=== PATIENT | male | born 1980 | race Caucasian/White ===

== ENCOUNTER 2016-05-14 02:31 | Emergency (ER) | payer OTHER ==
[~2016-05-14] VITALS: Ht 175.3 cm; Wt 145.7 kg
[~2016-05-14 02:31] MED LIST: ATOR-24 PO; GLC500 PO; INSDGI SC; INSDGIPEN SC; LISI-461 PO; NVLGI7030 SC
[2016-05-14 02:34] VITALS: TEMP 37; Ht 175.3 cm; Wt 145.7 kg
[2016-05-14 02:53] LABS: HEMATOCRIT 28.7 % (42-52); MEAN CELL VOLUME 79.9 fL (80-100); MEAN CORPUSCULAR HEMOGLOBIN 28.7 pg (25-34); MEAN CORPUSCULAR HGB CONC 35.9 g/dl (32-36); MEAN PLATELET VOLUME 9.5 fL (7.4-10.4); PLATELET COUNT 186 K/uL (130-400); RED BLOOD COUNT 3.59 M/uL (4.7-6.1); WHITE BLOOD COUNT 6.84 K/uL (4.8-10.8)
[2016-05-14] MEDS ORDERED: FURO-85 PO (02:56)
[2016-05-14 03:13] LABS: BASO % 0.3 %; BASO ABS # 0.02 K/uL (0-0.2); COMPLETE YES; EOS % 1.6 %; IG% 0.1 %; LYMPH % 26.6 %; LYMPH ABS # 1.82 K/uL (1.2-3.4); MONO % 11.8 %; NEUT % 59.6 %
[2016-05-14 03:18] LABS: BUN/CREATININE RATIO 16.6 (10-20); CALCIUM 9.1 mg/dl (8.5-10.1); CREATININE 1.6 mg/dl (0.60-1.40); POTASSIUM 3.6 mmol/L (3.5-5.1)
--- NOTE | 2016-05-14 04:49 | EMERGENCY ROOM VISIT NOTE ---
History First contact with patient: 02:34 Chief Complaint: LEG PAIN,LEG INJURY Stated Complaint: LEG CRAMPS History of Present Illness The patient is a 35 year old male who presents to the Emergency Room with complaints of leg pain or swelling. Patient states his leg has been swollen for quite some time now. He complains of leg cramping. No recent travel. He does not smoke. No history DVT or PE. No Family history of DVT or PE. Patient does have diabetes, blood pressure and cholesterol. Patient denies chest pain, dyspnea, fever, chills, cough, congestion, abdominal pain, numbness, tingling. Review of Systems See HPI for pertinent positives & negatives. A total of 10 systems reviewed and were otherwise negative. Past Medical/Surgical History Hypertension, hyperlipidemia, diabetes Social History Smoking Status: Never Smoker Alcohol Use: none Drug Use: none Marital Status: single Current/Historical Medications Scheduled Amlodipine (Norvasc), 5 MG PO BID Atorvastatin (Lipitor), 80 MG PO DAILY Furosemide (Lasix), 40 MG PO QAM Furosemide (Lasix), 20 MG PO DAILY @ NOON Gabapentin (Neurontin), 300 MG PO QAM Gabapentin (Neurontin), 600 MG PO HS Insulin Aspart (Novolog Flexpen), UNITS SQ AC Insulin Glargine (Toujeo Solostar), UNITS SQ HS Levothyroxine Sodium (Levothyroxine Sodium), 50 MCG PO DAILY Losartan Potassium (Cozaar), 100 MG PO DAILY Allergies Coded Allergies: Influenza Vaccines (Verified Allergy, Intermediate, UNKNOWN, 05/14/16) Lisinopril (Verified Allergy, Intermediate, COUGH, 05/14/16) Physical Exam Vital Signs Date Time Temp Pulse Resp B/P Pulse Ox O2 Delivery O2 Flow Rate FiO2 05/14/16 02:40 110 05/14/16 02:34 37.0 111 20 185/87 100 Room Air Physical Exam VITALS: Vitals are noted on the nurse's note and reviewed by myself. Vital signs stable. GENERAL: White male, in no acute distress, nondiaphoretic, well-developed well- nourished. SKIN: Capillary reflex less than 2 seconds. HEENT: Normocephalic. PERRLA. EOMI. Nares patent. Mucous membranes moist. Neck is supple without nuchal rigidity. HEART: Regular rate and rhythm without murmurs gallops or rubs. LUNGS: Clear to auscultation bilaterally without wheezes, rales or rhonchi. No retractions or accessory muscle use. ABDOMEN: Positive bowel sounds x 4. Normal tympanic percussion. Soft, protuberant, obese, nontender, without masses or organomegaly. Multani sign negative. No guarding or rebound tenderness. MUSCULOSKELETAL: No gross musculoskeletal defects. +2 pitting edema up to the mid tib-fib bilaterally. No calf tenderness. NEURO: Patient was alert and oriented to person place and time. Normal sensation to light and sharp touch. No focal neurological deficits. Medical Decision & Procedures Laboratory Results 05/14/16 02:43 Red Blood Count 3.59, Mean Corpuscular Volume 79.9, Mean Corpuscular Hemoglobin 28.7, Mean Corpuscular Hemoglobin Concent 35.9, Mean Platelet Volume 9.5, Neutrophils (%) (Auto) 59.6, Lymphocytes (%) (Auto) 26.6, Monocytes (%) (Auto) 11.8, Eosinophils (%) (Auto) 1.6, Basophils (%) (Auto) 0.3, Neutrophils # (Auto ) 4.07, Lymphocytes # (Auto) 1.82, Monocytes # (Auto) 0.81, Eosinophils # (Auto ) 0.11, Basophils # (Auto) 0.02 05/14/16 02:43 Test 05/14/16 02:37 05/14/16 02:43 Bedside Glucose 105 mg/dl (70-99) White Blood Count 6.84 K/uL (4.8-10.8) Red Blood Count 3.59 M/uL (4.7-6.1) Hemoglobin 10.3 g/dL (14.0-18.0) Hematocrit 28.7 % (42-52) Mean Corpuscular Volume 79.9 fL (80-100) Mean Corpuscular Hemoglobin 28.7 pg (25-34) Mean Corpuscular Hemoglobin Concent 35.9 g/dl (32-36) Platelet Count 186 K/uL (130-400) Mean Platelet Volume 9.5 fL (7.4-10.4) Neutrophils (%) (Auto) 59.6 % Lymphocytes (%) (Auto) 26.6 % Monocytes (%) (Auto) 11.8 % Eosinophils (%) (Auto) 1.6 % Basophils (%) (Auto) 0.3 % Neutrophils # (Auto) 4.07 K/uL (1.4-6.5) Lymphocytes # (Auto) 1.82 K/uL (1.2-3.4) Monocytes # (Auto) 0.81 K/uL (0.11-0.59) Eosinophils # (Auto) 0.11 K/uL (0-0.5) Basophils # (Auto) 0.02 K/uL (0-0.2) RDW Standard Deviation 37.1 fL (36.4-46.3) RDW Coefficient of Variation 12.8 % (11.5-14.5) Immature Granulocyte % (Auto) 0.1 % Immature Granulocyte # (Auto) 0.01 K/uL (0.00-0.02) Red Blood Cell Morphology Unremarkable Anion Gap 11.0 mmol/L (3-11) Est Creatinine Clear Calc Drug Dose 92.7 ml/min Estimated GFR () 64.2 Estimated GFR (Non- 55.4 BUN/Creatinine Ratio 16.6 (10-20) Calcium Level 9.1 mg/dl (8.5-10.1) ED Course Prior records reviewed and summarized above. Triage Nursing notes reviewed. Additional history obtained from EMS The patient's history was concerning for swelling and pain in the leg. Differential diagnosis: Etiologies such as venous insufficiency, DVT, musculoskeletal, infection, joint effusion, trauma, lymphedema, idiopathic, CHF, as well as others were entertained.. Physical examination: The physical examination revealed no signs of infection. Neurovascularly intact. ER treatment provided: CALVIN hose On reassessment the patient felt better. Diagnostics interpreted by me: The labs revealed stable anemia per chart review. Stable creatinine 1.6. Imaging studies: US VENOUS BILATERAL LOWER EXTREMITIES: No DVT in either lower extremity. Right groin lymph nodes. Radiologist: Odette Rosenberg M.D. This appears to be consistent with leg pain/swelling most likely from venous insufficiency. Patient is neurovascularly and neurologically intact. Unremarkable workup as above. He was advised to wear CALVIN hose and to follow-up family care in a few days or here in the ER sooner for severe pain, numbness, tingling, worsening signs or symptoms or as needed. By the evaluation outlined above emergent etiologies such as DVT, septic joint, trauma, infection, CHF, as well as others were deemed relatively unlikely. The pt informed about the findings as listed above. All questions were answered and pleased with the treatment. Return instructions were outlined and the patient was discharged in stable condition. Referral: The patient was referred back to their primary care physician for follow-up in 2 to 3 days for a recheck of the current condition. Medical Decision As above Impression Primary Impression: Localized swelling of both lower legs Departure Information Dispostion Home / Self-Care Condition GOOD Referrals Maki Peterson M.D. (PCP) Patient Instructions My [facility] [place] [facility] Additional Instructions Wear CALVIN hose. Acetaminophen(Tylenol) may be used for fever or pain. Use 1000mg every six hours as needed. Avoid using more than 3000mg in a 24 hour period. Rest and drink plenty of fluids as tolerated. Continue current medications. Avoid strenuous activities and anything that worsens your pain. Resume normal activities once your symptoms resolve. Return to the ER immediately for worsening or persistent leg pain, abdominal pain, vomiting, fevers, chest pains, difficulty breathing, worsening of your condition, or as needed. Follow up with your primary physician in 2-3 days for a recheck of your current condition.
[2016-05-14 05:08] VITALS: BP 151/74; PULSE 108; O2SAT 97
--- NOTE | 2016-05-14 07:15 | DIAGNOSTIC IMAGING REPORT ---
BILATERAL LOWER EXTREMITY VENOUS DOPPLER HISTORY: Bilateral leg swelling. COMPARISON STUDY: None. FINDINGS: There is normal compressibility, flow, and augmentation within the bilateral lower extremity deep venous systems. Mild right inguinal lymphadenopathy. The dominant lymph node measures 4.0 x 1.8 x 1.2 cm. IMPRESSION: No DVT within the right or left lower extremity. Mild right inguinal lymphadenopathy which is nonspecific. Electronically signed by: Gordo Kaye M.D. 05/14/2016 7:14 AM Dictated Date/Time: 05/14/2016 7:12 AM
[2016-07-23] MEDS ORDERED: ATOR-26 PO (02:53)
[2016-07-23] MEDS ORDERED: GABA-113 PO ×2 (02:54)
[2016-07-23] MEDS ORDERED: LOSA1TAB38 PO (02:55)
[2016-07-23] MEDS ORDERED: LEVO50TA6 PO (02:55)
[2016-07-23] MEDS ORDERED: AMLO-110 PO (02:56)
[2016-07-23] MEDS ORDERED: FURO-85 PO (02:56)
[2016-07-23] MEDS ORDERED: INSU1.2I SQ (02:59)
[2016-07-23] MEDS ORDERED: NVLGI/PEN SQ (02:59)
[2016-08-02] MEDS ORDERED: AMOX500C3 PO (08:16)
[2016-09-11] MEDS ORDERED: CIPR1TAB11 PO (08:57)
[2016-09-11] MEDS ORDERED: CLC/300 PO (08:57)
[2016-10-01] MEDS ORDERED: AMOX500C3 PO (13:26)
[2016-10-01] MEDS ORDERED: SULF800T23 PO (13:26)
[2016-10-24] MEDS ORDERED: DOXY100C76 PO (07:26)
[2016-11-19] MEDS ORDERED: CEPH500C2 PO (10:26)
[2016-12-21] MEDS ORDERED: CEPH500C2 PO (11:24)
[2016-12-25] MEDS ORDERED: CIPR1TAB11 PO (09:24)
== END 2016-05-14 05:08 | disposition home or self-care (01) ==
LOC: EDBD 02:31 → C.EDA 02:33
DX: R22.43 Localized swelling, mass and lump, lower limb, bilateral (principal); I10 Essential (primary) hypertension; E11.9 Type 2 diabetes mellitus without complications; E78.5 Hyperlipidemia, unspecified; Z79.4 Long term (current) use of insulin; Z79.899 Other long term (current) drug therapy

== ENCOUNTER → 2016-05-22 | Outpatient (CLI) | payer OTHER ==
[~2016-05-22] MED LIST changes: +AMLO-110 PO; +AMOX500C3 PO; -ATOR-24 PO; +ATOR-26 PO; +BUME1TAB PO; +CEPH500C2 PO; +CIPR1TAB11 PO; +CLC/300 PO; +DOXY100C76 PO; +FURO-85 PO; +GABA-113 PO; -GLC500 PO; -INSDGI SC; -INSDGIPEN SC; +INSU1.2I SQ; +LEVO50TA6 PO; -LISI-461 PO; +LOSA1TAB38 PO; +NVLGI/PEN SQ; -NVLGI7030 SC; +OXYC-57 PO; +SULF800T23 PO
[2016-05-22 12:33] LABS: BLOOD UREA NITROGEN 28 mg/dl (7-18); BUN/CREATININE RATIO 17.3 (10-20); CARBON DIOXIDE 24 mmol/L (21-32); CHLORIDE 109 mmol/L (98-107); GLUCOSE 219 mg/dl (70-99); MAGNESIUM 2.6 mg/dl (1.8-2.4); PHOSPHORUS 3.3 mg/dl (2.5-4.9); POTASSIUM 4.4 mmol/L (3.5-5.1); SODIUM 142 mmol/L (136-145)
== END | disposition home or self-care (01) ==
LOC: C.LABBFT 08:54
PROVIDERS: ATTEND Internal Medicine Nephrology
DX: I12.9 Hypertensive chronic kidney disease with stage 1 through stage 4 chronic kidney disease, or unspecified chronic kidney disease (principal); D64.9 Anemia, unspecified; N18.2 Chronic kidney disease, stage 2 (mild); E55.9 Vitamin D deficiency, unspecified; E66.01 Morbid (severe) obesity due to excess calories

== ENCOUNTER → 2016-06-18 | Outpatient (CLI) | payer OTHER ==
[2016-06-18 12:49] LABS: HEMATOCRIT 29.4 % (42-52); MEAN CELL VOLUME 78.6 fL (80-100); MEAN CORPUSCULAR HEMOGLOBIN 28.6 pg (25-34); MEAN CORPUSCULAR HGB CONC 36.4 g/dl (32-36); MEAN PLATELET VOLUME 10.9 fL (7.4-10.4); PLATELET COUNT 221 K/uL (130-400); RED BLOOD COUNT 3.74 M/uL (4.7-6.1); WHITE BLOOD COUNT 4.05 K/uL (4.8-10.8)
[2016-06-18 13:00] LABS: ALT/SGPT 26 U/L (12-78); AST/SGOT 18 U/L (15-37); BLOOD UREA NITROGEN 32 mg/dl (7-18); CALCIUM 8.7 mg/dl (8.5-10.1); CARBON DIOXIDE 25 mmol/L (21-32); CHLORIDE 101 mmol/L (98-107); GLUCOSE 313 mg/dl (70-99); POTASSIUM 4.4 mmol/L (3.5-5.1); SODIUM 135 mmol/L (136-145)
[2016-06-18 13:03] LABS: URINE APPEARANCE CLEAR (CLEAR); URINE BILIRUBIN NEG (NEG); URINE COLOR YELLOW; URINE EPITHELIAL CELL AUTO 20-30 /lpf (0-5); URINE NITRITE NEG (NEG); URINE SPECIFIC GRAVITY 1.009 (1.000-1.030); UROBILINOGEN NEG (NEG)
[2016-06-18 13:04] LABS: ALB/GLOB RATIO 0.7 (0.9-2); ALKALINE PHOSPHATASE 144 U/L (45-117); PHOSPHORUS 3.4 mg/dl (2.5-4.9)
[2016-06-18 13:11] LABS: BETA-HYDROXYBUTYRATE 0.99 mg/dL (0.2-2.81)
[2016-06-18 13:12] LABS: MANUAL MICROSCOPIC REQUIRED? NO; REVIEW REQ? NO
[2016-06-18 13:16] LABS: URINE PROTIEN/CREAT RATIO 3.6 (0-0.2); URINE TOTAL PROTEIN 319.5 mg/dl (0-11.9)
== END | disposition home or self-care (01) ==
LOC: C.LABBFT 10:06
PROVIDERS: ATTEND Internal Medicine Nephrology
DX: D64.9 Anemia, unspecified (principal); I12.9 Hypertensive chronic kidney disease with stage 1 through stage 4 chronic kidney disease, or unspecified chronic kidney disease; N18.2 Chronic kidney disease, stage 2 (mild); E55.9 Vitamin D deficiency, unspecified; R60.9 Edema, unspecified

== ENCOUNTER → 2016-07-11 | Outpatient (CLI) | payer OTHER ==
[2016-07-11 13:08] LABS: ESTIMATED AVERAGE GLUCOSE 286 mg/dl; HA1C FLAG Normal (Normal)
== END | disposition home or self-care (01) ==
LOC: C.LABBFT 11:03
PROVIDERS: ATTEND Internal Medicine
DX: E10.65 Type 1 diabetes mellitus with hyperglycemia (principal)

== ENCOUNTER 2016-07-23 12:39 | Emergency (ER) | payer OTHER ==
[~2016-07-23] VITALS: Ht 167.6 cm; Wt 138.0 kg
[~2016-07-23 12:39] MED LIST changes: -AMOX500C3 PO; -BUME1TAB PO; -CEPH500C2 PO; -CIPR1TAB11 PO; -CLC/300 PO; -DOXY100C76 PO; -OXYC-57 PO; -SULF800T23 PO
[2016-07-23 12:52] VITALS: TEMP 36.9; Ht 167.6 cm; Wt 138.0 kg
[2016-07-23] MEDS ORDERED: BUMETANIDE SOLN 1 MG/4 ML VIAL IV STA (12:56)
--- NOTE | 2016-07-23 12:56 | EMERGENCY ROOM VISIT NOTE ---
History Report prepared by Karuna: Esther Mistry Under the Supervision of: Dr. Zachary Eckert M.D. First contact with patient: 12:47 Stated Complaint: LEG CRAMPING AND LEG TREMORS History of Present Illness The patient is a 35 year old male who presents to the Emergency Room with complaints of persistent leg pain that began this morning. The patient describes his pain as a muscle cramp. He states that he has had this pain in the past and has been evaluated in the emergency department for his discomfort. The patient states that he is on Bumex. He notes increased swelling to his bilateral lower extremities. The patient denies any abdominal pain. He states that he feels dehydrated. Source of History: patient Onset: this morning Position: leg Quality: cramping (muscle) Timing: other (persistent) Associated Symptoms: No abdominal pain Note: Associated Symptoms: increased swelling to his bilateral lower extremities Review of Systems See HPI for pertinent positives & negatives. A total of 10 systems reviewed and were otherwise negative. Past Medical & Surgical Medical Problems: (1) Diabetes (2) High cholesterol (3) Hypertension Family History No pertinent family history stated. Social History Smoking Status: Never Smoker Alcohol Use: none Drug Use: none Marital Status: single Occupation Status: unemployed Current/Historical Medications Scheduled Amlodipine (Norvasc), 5 MG PO BID Atorvastatin (Lipitor), 80 MG PO DAILY Bumetanide (Bumex), Unknown Dose PO DAILY Cephalexin Monohydrate (Keflex), 500 MG PO QID Gabapentin (Neurontin), 300 MG PO QAM Gabapentin (Neurontin), 600 MG PO HS Insulin Aspart (Novolog Flexpen), UNITS SQ AC Insulin Glargine (Toujeo Solostar), UNITS SQ HS Levothyroxine Sodium (Levothyroxine Sodium), 50 MCG PO DAILY Losartan Potassium (Cozaar), 100 MG PO DAILY Sulfa/Trimethoprim (Bactrim Ds 800MG/160MG), 1 TAB PO BID Scheduled PRN Oxycodone/Acetaminophen 5MG/325MG (Percocet 5MG/325MG), 1-2 TAB PO Q4H PRN for Pain Allergies Coded Allergies: Influenza Vaccines (Verified Allergy, Intermediate, UNKNOWN, 07/23/16) Lisinopril (Verified Allergy, Intermediate, COUGH, 07/23/16) Physical Exam Vital Signs Date Time Temp Pulse Resp B/P Pulse Ox O2 Delivery O2 Flow Rate FiO2 07/23/16 18:08 86 18 213/115 99 Room Air 07/23/16 15:35 81 195/97 98 Room Air 07/23/16 14:05 79 16 238/106 96 Room Air 07/23/16 12:52 36.9 74 22 169/86 98 Room Air Physical Exam GENERAL: Patient is a healthy-appearing well-nourished HEAD: Normocephalic atraumatic EYES: Ocular movements intact pupils equal and react to light OROPHARYNX mucous membranes are moist no exudates present no erythema or edema present NECK: Supple no nuchal rigidity CHEST: Good equal expansion LUNGS: Clear and equal to auscultation CARDIAC: Normal S1 and S2 ABDOMEN: Soft nontender no guarding BACK: No CVA tenderness EXTREMITIES: Multiple ulcers to the legs, no evidence of cellulitis, plus 2 pitting edema up to the thighs. No pain upon palpation normal muscle strength in all groups no clubbing cyanosis NEURO: Patient is following commands is answering questions appropriately. Alert and oriented x3 Cranial Nerves 2-12 grossly intact Medical Decision & Procedures ER Provider Diagnostic Interpretation: Radiology results as stated below per my review and radiologist interpretation: BILATERAL LOWER EXTREMITY VENOUS DOPPLER HISTORY: Pain. Edema. Pt c/o b/l LE swelling COMPARISON STUDY: None. FINDINGS: There is normal compressibility, flow, and augmentation within the bilateral lower extremity deep venous systems. IMPRESSION: No DVT within the right or left lower extremity. Electronically signed by: Antonio Horvaht M.D. 07/23/2016 3:17 PM Dictated Date/Time: 07/23/2016 3:10 PM CHEST ONE VIEW PORTABLE CLINICAL HISTORY: Pt c/p leg swelling b/l pain COMPARISON STUDY: 04/16/2011 FINDINGS: Mild stable cardiomegaly. Lungs are clear. Diaphragms smooth. IMPRESSION: Mild stable cardiomegaly. Otherwise negative study Electronically signed by: Antonio Horvath M.D. 07/23/2016 1:15 PM Dictated Date/Time: 07/23/2016 1:15 PM Laboratory Results 07/23/16 13:35 Red Blood Count 3.53, Mean Corpuscular Volume 76.8, Mean Corpuscular Hemoglobin 28.6, Mean Corpuscular Hemoglobin Concent 37.3, Mean Platelet Volume 9.3, Neutrophils (%) (Auto) 70.6, Lymphocytes (%) (Auto) 16.8, Monocytes (%) (Auto) 10.2, Eosinophils (%) (Auto) 2.0, Basophils (%) (Auto) 0.2, Neutrophils # (Auto ) 6.57, Lymphocytes # (Auto) 1.56, Monocytes # (Auto) 0.95, Eosinophils # (Auto ) 0.19, Basophils # (Auto) 0.02 07/23/16 13:35 Test 07/23/16 13:35 07/23/16 15:19 07/23/16 15:25 White Blood Count 9.31 K/uL (4.8-10.8) Red Blood Count 3.53 M/uL (4.7-6.1) Hemoglobin 10.1 g/dL (14.0-18.0) Hematocrit 27.1 % (42-52) Mean Corpuscular Volume 76.8 fL (80-100) Mean Corpuscular Hemoglobin 28.6 pg (25-34) Mean Corpuscular Hemoglobin Concent 37.3 g/dl (32-36) Platelet Count 288 K/uL (130-400) Mean Platelet Volume 9.3 fL (7.4-10.4) Neutrophils (%) (Auto) 70.6 % Lymphocytes (%) (Auto) 16.8 % Monocytes (%) (Auto) 10.2 % Eosinophils (%) (Auto) 2.0 % Basophils (%) (Auto) 0.2 % Neutrophils # (Auto) 6.57 K/uL (1.4-6.5) Lymphocytes # (Auto) 1.56 K/uL (1.2-3.4) Monocytes # (Auto) 0.95 K/uL (0.11-0.59) Eosinophils # (Auto) 0.19 K/uL (0-0.5) Basophils # (Auto) 0.02 K/uL (0-0.2) RDW Standard Deviation 35.5 fL (36.4-46.3) RDW Coefficient of Variation 12.9 % (11.5-14.5) Immature Granulocyte % (Auto) 0.2 % Immature Granulocyte # (Auto) 0.02 K/uL (0.00-0.02) Anion Gap 11.0 mmol/L (3-11) Est Creatinine Clear Calc Drug Dose 72.4 ml/min Estimated GFR () 52.1 Estimated GFR (Non- 45.0 BUN/Creatinine Ratio 22.8 (10-20) Calcium Level 9.3 mg/dl (8.5-10.1) Total Bilirubin 0.3 mg/dl (0.2-1) Direct Bilirubin < 0.1 mg/dl (0-0.2) Aspartate Amino Transf (AST/SGOT) 24 U/L (15-37) Alanine Aminotransferase (ALT/SGPT) 22 U/L (12-78) Alkaline Phosphatase 186 U/L (45-117) Total Creatine Kinase 650 U/L (39-308) Creatine Kinase MB 8.3 ng/ml (0.5-3.6) Creatine Kinase MB Ratio 1.3 (0-3.0) Troponin I < 0.015 ng/ml (0-0.045) Pro-B-Type Natriuretic Peptide 113 pg/ml (0-450) Total Protein 7.2 gm/dl (6.4-8.2) Albumin 2.9 gm/dl (3.4-5.0) Lipase 160 U/L (73-393) Bedside Glucose 133 mg/dl (70-99) Urine Color YELLOW Urine Appearance CLEAR (CLEAR) Urine pH 5.0 (4.5-7.5) Urine Specific [place] 1.011 (1.000-1.030) Urine Protein 3+ (NEG) Urine Glucose (UA) 2+ (NEG) Urine Ketones NEG (NEG) Urine Occult Blood 2+ (NEG) Urine Nitrite NEG (NEG) Urine Bilirubin NEG (NEG) Urine Urobilinogen NEG (NEG) Urine Leukocyte Esterase NEG (NEG) Urine WBC (Auto) 1-5 /hpf (0-5) Urine RBC (Auto) 0-4 /hpf (0-4) Urine Hyaline Casts (Auto) 10-30 /lpf (0-5) Urine Epithelial Cells (Auto) 20-30 /lpf (0-5) Urine Bacteria (Auto) NEG (NEG) Urine Pathogenic Casts 1-5 GRANULAR CASTS /lpf (0) Labs reviewed by ED physician. Medications Administered Medications (Trade) Dose Ordered Sig/Urvashi Route Start Time Stop Time Status Last Admin Dose Admin Bumetanide (Bumex IV) 2 mg NOW STAT IV 07/23/16 12:56 43/17 12:59 DC 07/23/16 13:50 2 MG Dextrose (Dextrose 50% 50ML Syringe) 50 ml NOW STAT IV 07/23/16 13:43 07/23/16 13:44 DC 07/23/16 13:49 50 ML Hydromorphone HCl (Dilaudid Inj) 1 mg NOW STAT IV 07/23/16 16:28 07/23/16 16:30 DC 07/23/16 16:59 1 MG Ceftriaxone Sodium (Rocephin Inj) 1 gm NOW STAT IV 07/23/16 16:29 07/23/16 16:30 DC 07/23/16 16:59 1 GM Trimethoprim/ Sulfamethoxazole (Septra Ds 800/ 160MG Tab) 1 tab NOW STAT PO 07/23/16 16:29 07/23/16 16:30 DC 07/23/16 16:59 1 TAB ECG Indication: other (swelling to lower extremities) Rate (beats per minute): 72 Rhythm: normal sinus Findings: no acute ischemic change, no ectopy ED Course 1249: Past medical records reviewed. The patient was evaluated in room A11A. A complete history and physical examination was performed. 1256: Ordered Bumex IV 2 mg IV. 1343: Ordered Dextrose 50 ml IV. 1628: Ordered Dilaudid Inj 1 mg IV, Trimethoprim/Sulfamethoxazole 1 tab PO, Rocephin Inj 1 gm IV. 1635: I reevaluated the patient and he is resting comfortably. I discussed the exam findings with him and I discussed the treatment plan. He verbalized complete understanding and agreement. He is ready to go home. Medical Decision Differential diagnosis: Etiologies such as infections, reactive airway disease, pneumonia, pneumothorax , COPD, CHF, cardiac ischemia, pulmonary embolism, musculoskeletal, gastrointestinal, as well as others were entertained. This is a 35-year-old male who presents emergency department complaining of leg cramping and pain to his legs. The patient is grossly overweight and appears septic element of congestive heart failure. He was given an extra dose of his Bumex here in the emergency Department with improvement in his symptoms. His right lower 70 appears to have us small amount of cellulitis present and therefore I'll place the patient on antibiotics. Based on this the patient was started on Rocephin and Bactrim here in the emergency department. I'll continue the patient on Keflex and Bactrim at home. I strongly recommended that the patient follow-up with his primary care physician as well as wound clinic. Patient was in agreement with the treatment plan. Impression Primary Impression: Cellulitis and abscess of leg Scribe Attestation The scribe's documentation has been prepared under my direction and personally reviewed by me in its entirety. I confirm that the note above accurately reflects all work, treatment, procedures, and medical decision making performed by me. Departure Information Dispostion Home / Self-Care Prescriptions Oxycodone/Acetaminophen 5MG/325MG (PERCOCET 5MG/325MG) Tab 1-2 TAB PO Q4H Y for Pain, #14 TAB Prov: Zachary Eckert MD 07/23/16 Sulfa/Trimethoprim (Bactrim Ds 800MG/160MG) Tab 1 TAB PO BID for 10 Days, #20 TAB Prov: Zachary Eckert MD 07/23/16 Cephalexin Monohydrate (KEFLEX) 500 Mg Cap 500 MG PO QID for 10 Days, #40 CAP Prov: Zachary Eckert MD 07/23/16 Referrals Maki Peterson M.D. (PCP) Forms HOME CARE DOCUMENTATION FORM, IMPORTANT VISIT INFORMATION, School Instructions, Work Instructions Patient Instructions Cellulitis - [facility], [facility] Additional Instructions Follow up with wound clinic You received narcotic or benzodiazepene medication while in the emergency room today. Do not drive, operate heavy machinery, or drink alcohol under the influence of this medication. Take Percocet for breakthrough pain You have been examined and treated today on an emergency basis only. This is not a substitute for, or an effort to provide, complete comprehensive medical care. It is impossible to recognize and treat all injuries or illnesses in a single emergency department visit. It is therefore important that you follow up closely with Dr Peterson. Call as soon as possible for an appointment. Thank you for your time and consideration. I look forward to speaking with you again soon. Please don't hesitate to call us if you have any questions.
[2016-07-23] MEDS ORDERED: BUME1TAB PO (13:07)
--- NOTE | 2016-07-23 13:16 | DIAGNOSTIC IMAGING REPORT ---
CHEST ONE VIEW PORTABLE CLINICAL HISTORY: Pt c/p leg swelling b/l pain COMPARISON STUDY: 04/16/2011 FINDINGS: Mild stable cardiomegaly. Lungs are clear. Diaphragms smooth. IMPRESSION: Mild stable cardiomegaly. Otherwise negative study Electronically signed by: Antonio Horvath M.D. 07/23/2016 1:15 PM Dictated Date/Time: 07/23/2016 1:15 PM
[2016-07-23] MEDS ORDERED: DEXTROSE 50% 50 ML SYR IV STA (13:43)
[2016-07-23 13:49] LABS: HEMATOCRIT 27.1 % (42-52); MEAN CELL VOLUME 76.8 fL (80-100); MEAN CORPUSCULAR HEMOGLOBIN 28.6 pg (25-34); MEAN CORPUSCULAR HGB CONC 37.3 g/dl (32-36); MEAN PLATELET VOLUME 9.3 fL (7.4-10.4); PLATELET COUNT 288 K/uL (130-400); RED BLOOD COUNT 3.53 M/uL (4.7-6.1); WHITE BLOOD COUNT 9.31 K/uL (4.8-10.8)
[2016-07-23 14:08] LABS: BASO % 0.2 %; BASO ABS # 0.02 K/uL (0-0.2); COMPLETE YES; IG% 0.2 %; LYMPH % 16.8 %; LYMPH ABS # 1.56 K/uL (1.2-3.4); MONO % 10.2 %; NEUT % 70.6 %
[2016-07-23 14:26] LABS: ALKALINE PHOSPHATASE 186 U/L (45-117); ALT/SGPT 22 U/L (12-78); AST/SGOT 24 U/L (15-37); BLOOD UREA NITROGEN 43 mg/dl (7-18); BUN/CREATININE RATIO 22.8 (10-20); CALCIUM 9.3 mg/dl (8.5-10.1); CARBON DIOXIDE 25 mmol/L (21-32); CHLORIDE 91 mmol/L (98-107); CKMB/CK RATIO 1.3 (0-3.0); GLUCOSE 48 mg/dl (70-99); POTASSIUM 3.6 mmol/L (3.5-5.1); SODIUM 127 mmol/L (136-145)
--- NOTE | 2016-07-23 15:18 | DIAGNOSTIC IMAGING REPORT ---
BILATERAL LOWER EXTREMITY VENOUS DOPPLER HISTORY: Pain. Edema. Pt c/o b/l LE swelling COMPARISON STUDY: None. FINDINGS: There is normal compressibility, flow, and augmentation within the bilateral lower extremity deep venous systems. IMPRESSION: No DVT within the right or left lower extremity. Electronically signed by: Antonio Horvath M.D. 07/23/2016 3:17 PM Dictated Date/Time: 07/23/2016 3:10 PM
[2016-07-23 15:50] LABS: URINE APPEARANCE CLEAR (CLEAR); URINE BILIRUBIN NEG (NEG); URINE COLOR YELLOW; URINE EPITHELIAL CELL AUTO 20-30 /lpf (0-5); URINE NITRITE NEG (NEG); URINE SPECIFIC GRAVITY 1.011 (1.000-1.030); UROBILINOGEN NEG (NEG)
[2016-07-23 15:53] LABS: MANUAL MICROSCOPIC REQUIRED? NO; REVIEW REQ? YES
[2016-07-23 16:10] LABS: URINE PATH CASTS 1-5 GRANULAR CASTS /lpf (0)
[2016-07-23] MEDS ORDERED: HYDROmorphone INJ 1 MG/ML SYR IV STA (16:28)
[2016-07-23] MEDS ORDERED: CEFTRIAXONE SOD INJ 1 GM ADDVIAL IV STA (16:29)
[2016-07-23] MEDS ORDERED: SULFAMETHOXAZOLE/TRIMETHOPRIM DS 800/160MG TAB PO STA (16:29)
[2016-07-23] MEDS ORDERED: SULF800T23 PO (16:36)
[2016-07-23] MEDS ORDERED: OXYC-57 PO (16:36)
[2016-07-23] MEDS ORDERED: CEPH500C2 PO (16:36)
[2016-07-23 18:08] VITALS: BP 213/115; PULSE 86; O2SAT 99
[2016-08-02] MEDS ORDERED: AMOX500C3 PO (08:16)
[2016-09-11] MEDS ORDERED: CIPR1TAB11 PO (08:57)
[2016-09-11] MEDS ORDERED: CLC/300 PO (08:57)
[2016-10-01] MEDS ORDERED: AMOX500C3 PO (13:26)
[2016-10-01] MEDS ORDERED: SULF800T23 PO (13:26)
[2016-10-24] MEDS ORDERED: DOXY100C76 PO (07:26)
[2016-11-19] MEDS ORDERED: CEPH500C2 PO (10:26)
[2016-12-21] MEDS ORDERED: CEPH500C2 PO (11:24)
[2016-12-25] MEDS ORDERED: CIPR1TAB11 PO (09:24)
[2017-02-06] MEDS ORDERED: AMOX500C3 PO (13:07)
[2017-03-11] MEDS ORDERED: LEVO1TAB33 PO (09:13)
== END 2016-07-23 17:30 | disposition home or self-care (01) ==
LOC: EDBD 12:39 → C.EDA 12:40
DX: L03.115 Cellulitis of right lower limb (principal); L02.415 Cutaneous abscess of right lower limb; E11.9 Type 2 diabetes mellitus without complications; E78.5 Hyperlipidemia, unspecified; I10 Essential (primary) hypertension; E66.3 Overweight; Z79.4 Long term (current) use of insulin

== ENCOUNTER → 2016-08-06 | Outpatient (CLI) | payer OTHER ==
[~2016-08-06] MED LIST changes: +AMOX500C3 PO; +BUME1TAB PO; +CEPH500C2 PO; +CIPR1TAB11 PO; +CLC/300 PO; +DOXY100C76 PO; -FURO-85 PO; +LEVO1TAB33 PO; +OXYC-57 PO; +SULF800T23 PO
== END | disposition home or self-care (01) ==
LOC: C.LABSPEC 17:24
PROVIDERS: ATTEND Nurse Practitioner Family
DX: R31.29 Other microscopic hematuria (principal)

== ENCOUNTER → 2016-08-07 | Outpatient (CLI) | payer OTHER ==
[2016-08-07 15:55] LABS: BLOOD UREA NITROGEN 43 mg/dl (7-18); BUN/CREATININE RATIO 27.1 (10-20); CALCIUM 9.4 mg/dl (8.5-10.1); CARBON DIOXIDE 28 mmol/L (21-32); CHLORIDE 104 mmol/L (98-107); GLUCOSE 78 mg/dl (70-99); MAGNESIUM 2.8 mg/dl (1.8-2.4); POTASSIUM 3.8 mmol/L (3.5-5.1); SODIUM 141 mmol/L (136-145)
[2016-08-07 15:56] LABS: PHOSPHORUS 4.3 mg/dl (2.5-4.9)
== END | disposition home or self-care (01) ==
LOC: C.LAB1850 13:57
PROVIDERS: ATTEND Internal Medicine Nephrology
DX: I12.9 Hypertensive chronic kidney disease with stage 1 through stage 4 chronic kidney disease, or unspecified chronic kidney disease (principal); D64.9 Anemia, unspecified; E55.9 Vitamin D deficiency, unspecified; N18.3 Chronic kidney disease, stage 3 (moderate)

== ENCOUNTER → 2016-09-04 | Outpatient (CLI) | payer OTHER ==
--- NOTE | 2016-09-04 09:39 | DIAGNOSTIC IMAGING REPORT ---
CT SCAN OF THE ABDOMEN AND PELVIS WITHOUT IV CONTRAST CLINICAL HISTORY: Microscopic hematuria. COMPARISON STUDY: Renal ultrasound dated 11/01/2015. TECHNIQUE: CT scan of the abdomen and pelvis is performed from the lung bases to the proximal femora. Images are reviewed in the axial, sagittal, and coronal planes. IV contrast was not administered for this examination. Automated dose control exposure was utilized. The examination is degraded by large body habitus, and by streak artifact from the body wall abutting the CT gantry. The examination is also degraded by streak artifact from the left arm which could not be completely elevated above the abdomen. CT DOSE: 1129.23 mGycm FINDINGS: Lung bases: The heart is normal in size and without pericardial effusion. There are scattered tiny calcified granulomas. The lung bases are otherwise clear. Liver: The unenhanced liver is enlarged, measuring 21 cm in length. The liver is otherwise normal in contour and attenuation. There is no intrahepatic biliary ductal dilatation. Gallbladder: Unremarkable. Spleen: The spleen is enlarged, measuring 15.5 cm in length. Pancreas: Unremarkable. Adrenal glands: Unremarkable. Kidneys: The unenhanced kidneys are normal in size and without hydronephrosis. There are no renal calculi identified. There is no evidence of contour deforming renal mass lesion. Abdominal vasculature: The abdominal aorta is normal in course and caliber. Bowel: The small bowel and colon are normal in course and caliber. There is mild to moderate colonic fecal retention. The appendix is well-visualized and normal. Peritoneum: There is no intraperitoneal free air or abdominal ascites. Lymphadenopathy: Prominent retroperitoneal lymph nodes measure up to 11 mm in short axis. Pelvic viscera: The bladder, prostate, and seminal vesicles are normal as visualized. Skeletal structures: No lytic or blastic lesions are seen. IMPRESSION: 1. There are no acute infectious or inflammatory findings in the abdomen or pelvis. 2. No renal calculi are identified. 3. Hepatosplenomegaly. 4. Prominent nonspecific retroperitoneal lymph nodes measure up to 11 mm in short axis. These are of indeterminant, if any, clinical significance. Electronically signed by: Aaron Mcguire M.D. 09/04/2016 9:37 AM Dictated Date/Time: 09/04/2016 9:32 AM
== END ==
LOC: C.CTS 08:51
PROVIDERS: ATTEND Nurse Practitioner Family
DX: R31.29 Other microscopic hematuria (principal)

== ENCOUNTER → 2016-10-16 | Outpatient (CLI) | payer OTHER ==
[~2016-10-16] MED LIST changes: -CLC/300 PO
[2016-10-16 12:21] LABS: HEMATOCRIT 27.2 % (42-52); MEAN CELL VOLUME 83.7 fL (80-100); MEAN CORPUSCULAR HEMOGLOBIN 28.3 pg (25-34); MEAN CORPUSCULAR HGB CONC 33.8 g/dl (32-36); PLATELET COUNT 211 K/uL (130-400); RED BLOOD COUNT 3.25 M/uL (4.7-6.1)
[2016-10-16 14:22] LABS: BLOOD UREA NITROGEN 32 mg/dl (7-18); BUN/CREATININE RATIO 17.5 (10-20); CALCIUM 9.3 mg/dl (8.5-10.1); CARBON DIOXIDE 21 mmol/L (21-32); CHLORIDE 109 mmol/L (98-107); CHOLESTEROL 141 mg/dl (0-200); GLUCOSE 257 mg/dl (70-99); POTASSIUM 4.9 mmol/L (3.5-5.1); SODIUM 138 mmol/L (136-145); TRIGLYCERIDES 163 mg/dl (0-150); VERY LOW DENSITY LIPOPROT CALC 33 mg/dl
[2016-10-16 14:25] LABS: CHOLESTEROL/HDL RATIO 5.2; HDL CHOLESTEROL 27 mg/dl; LDL CHOLESTEROL CALCULATED 81 mg/dl; PHOSPHORUS 3.4 mg/dl (2.5-4.9)
== END | disposition home or self-care (01) ==
LOC: C.LABBFT 10:42
PROVIDERS: ATTEND Internal Medicine Nephrology
DX: I12.9 Hypertensive chronic kidney disease with stage 1 through stage 4 chronic kidney disease, or unspecified chronic kidney disease (principal); N18.3 Chronic kidney disease, stage 3 (moderate); D64.9 Anemia, unspecified; E55.9 Vitamin D deficiency, unspecified; E10.65 Type 1 diabetes mellitus with hyperglycemia; R60.9 Edema, unspecified

== ENCOUNTER → 2016-11-14 | Outpatient (CLI) | payer OTHER ==
[~2016-11-14] MED LIST changes: -AMOX500C3 PO; -LEVO1TAB33 PO; -SULF800T23 PO
[2016-11-14 12:47] LABS: ESTIMATED AVERAGE GLUCOSE 240 mg/dl; HA1C FLAG Normal (Normal)
== END | disposition home or self-care (01) ==
LOC: C.LABBFT 10:34
PROVIDERS: ATTEND Internal Medicine Nephrology
DX: E10.65 Type 1 diabetes mellitus with hyperglycemia (principal); E10.42 Type 1 diabetes mellitus with diabetic polyneuropathy

== ENCOUNTER → 2017-02-14 | Outpatient (CLI) | payer OTHER ==
[~2017-02-14] MED LIST changes: +AMOX500C3 PO; -CEPH500C2 PO; -CIPR1TAB11 PO; -DOXY100C76 PO; -OXYC-57 PO
[2017-02-14 12:48] LABS: BLOOD UREA NITROGEN 37 mg/dl (7-18); BUN/CREATININE RATIO 17.6 (10-20); CALCIUM 8.8 mg/dl (8.5-10.1); CARBON DIOXIDE 23 mmol/L (21-32); CHLORIDE 105 mmol/L (98-107); CREATININE 2.13 mg/dl (0.60-1.40); GLUCOSE 328 mg/dl (70-99); POTASSIUM 4.9 mmol/L (3.5-5.1); SODIUM 136 mmol/L (136-145)
[2017-02-14 12:52] LABS: HEMATOCRIT 30.4 % (42-52); MEAN CORPUSCULAR HEMOGLOBIN 27.9 pg (25-34); MEAN CORPUSCULAR HGB CONC 34.9 g/dl (32-36); MEAN PLATELET VOLUME 10.1 fL (7.4-10.4); PLATELET COUNT 252 K/uL (130-400)
[2017-02-14 12:54] LABS: PHOSPHORUS 3.8 mg/dl (2.5-4.9)
[2017-02-14 13:01] LABS: URINE APPEARANCE CLOUDY (CLEAR); URINE BILIRUBIN NEG (NEG); URINE COLOR YELLOW; URINE EPITHELIAL CELL AUTO >30 /lpf (0-5); URINE NITRITE NEG (NEG); URINE SPECIFIC GRAVITY 1.026 (1.000-1.030); UROBILINOGEN NEG (NEG)
[2017-02-14 13:01] LABS: BETA-HYDROXYBUTYRATE 1.36 mg/dL (0.2-2.81)
[2017-02-14 13:02] LABS: URINE PROTIEN/CREAT RATIO 5.3 (0-0.2); URINE TOTAL PROTEIN 677.2 mg/dl (0-11.9)
[2017-02-14 13:08] LABS: MANUAL MICROSCOPIC REQUIRED? NO; REVIEW REQ? YES
[2017-02-14 13:37] LABS: URINE PATH CASTS 0-3 GRANULAR CASTS /lpf (0)
== END | disposition home or self-care (01) ==
LOC: C.LABBFT 09:18
PROVIDERS: ATTEND Internal Medicine Nephrology
DX: E55.9 Vitamin D deficiency, unspecified (principal)

== ENCOUNTER → 2017-05-08 | Outpatient (CLI) | payer OTHER ==
[~2017-05-08] MED LIST changes: -AMOX500C3 PO; +LEVO1TAB34 PO
[2017-05-08 12:26] LABS: HEMATOCRIT 27.5 % (42-52); HEMOGLOBIN 9.6 g/dL (14.0-18.0); MEAN CELL VOLUME 83.3 fL (80-100); MEAN CORPUSCULAR HEMOGLOBIN 29.1 pg (25-34); MEAN CORPUSCULAR HGB CONC 34.9 g/dl (32-36); MEAN PLATELET VOLUME 10.2 fL (7.4-10.4); PLATELET COUNT 256 K/uL (130-400); RED CELL DISTRIBUTION WIDTH CV 12.8 % (11.5-14.5); RED CELL DISTRIBUTION WIDTH SD 38.8 fL (36.4-46.3); WHITE BLOOD COUNT 5.83 K/uL (4.8-10.8)
[2017-05-08 12:52] LABS: ALBUMIN 2.1 gm/dl (3.4-5.0); ALT/SGPT 25 U/L (12-78); AST/SGOT 20 U/L (15-37); BLOOD UREA NITROGEN 40 mg/dl (7-18); CALCIUM 8.8 mg/dl (8.5-10.1); CARBON DIOXIDE 26 mmol/L (21-32); CREATININE 2.13 mg/dl (0.60-1.40); GLUCOSE 281 mg/dl (70-99); SODIUM 133 mmol/L (136-145)
[2017-05-08 12:55] LABS: HEMOGLOBIN A1C 14.4 % (4.5-5.6)
[2017-05-08 13:02] LABS: ALKALINE PHOSPHATASE 228 U/L (45-117); CHOLESTEROL 209 mg/dl (0-200); LDL CHOLESTEROL CALCULATED 126 mg/dl; TOTAL PROTEIN 6.6 gm/dl (6.4-8.2)
== END | disposition home or self-care (01) ==
LOC: C.LABBFT 09:49
PROVIDERS: ATTEND Internal Medicine Nephrology
DX: Z00.00 Encounter for general adult medical examination without abnormal findings (principal); I12.9 Hypertensive chronic kidney disease with stage 1 through stage 4 chronic kidney disease, or unspecified chronic kidney disease; E10.22 Type 1 diabetes mellitus with diabetic chronic kidney disease; N18.3 Chronic kidney disease, stage 3 (moderate); D63.1 Anemia in chronic kidney disease; R31.29 Other microscopic hematuria; E55.9 Vitamin D deficiency, unspecified; E78.5 Hyperlipidemia, unspecified; E03.9 Hypothyroidism, unspecified; E10.65 Type 1 diabetes mellitus with hyperglycemia

== ENCOUNTER 2017-06-03 23:28 | Inpatient (IN) | payer OTHER ==
[~2017-06-03] VITALS: Ht 167.6 cm; Wt 148.0 kg
[2017-06-03] MEDS ORDERED: ACETAMINOPHEN 500 MG TAB PO STA (23:41)
[2017-06-03] MEDS ORDERED: IBUPROFEN 800 MG TAB PO STA (23:41)
[2017-06-03] MEDS ORDERED: SODIUM CHLORIDE 0.9% 1000ML 2,000 ML IV STA (23:41)
[2017-06-03] MEDS ORDERED: IBUPROFEN 800 MG TAB ONE (23:42)
[2017-06-03] MEDS ORDERED: ACETAMINOPHEN 500 MG TAB PO ONE (23:42)
[2017-06-04 00:10] LABS: INFLUENZA B ANTIGEN Neg for Influ B (NEG)
[2017-06-04 00:11] LABS: HEMATOCRIT 27.1 % (42-52); HEMOGLOBIN 9.1 g/dL (14.0-18.0); MEAN CELL VOLUME 85.5 fL (80-100); MEAN CORPUSCULAR HEMOGLOBIN 28.7 pg (25-34); MEAN CORPUSCULAR HGB CONC 33.6 g/dl (32-36); MEAN PLATELET VOLUME 10.5 fL (7.4-10.4); PLATELET COUNT 167 K/uL (130-400); RED CELL DISTRIBUTION WIDTH CV 12.9 % (11.5-14.5); RED CELL DISTRIBUTION WIDTH SD 40.6 fL (36.4-46.3); WHITE BLOOD COUNT 6.65 K/uL (4.8-10.8)
[2017-06-04 00:27] LABS: CALCIUM 8.5 mg/dl (8.5-10.1); CREATININE 2.61 mg/dl (0.60-1.40); POTASSIUM 5.3 mmol/L (3.5-5.1)
[2017-06-04 00:38] LABS: BASO % 0.3 %; BASO ABS # 0.02 K/uL (0-0.2); EOS % 1.4 %; EOS ABS # 0.09 K/uL (0-0.5); IG# 0.02 K/uL (0.00-0.02); LYMPH % 11.1 %; LYMPH ABS # 0.74 K/uL (1.2-3.4); MONO % 10.4 %; MONO ABS # 0.69 K/uL (0.11-0.59); NEUT % 76.5 %; NEUT ABS # 5.09 K/uL (1.4-6.5)
[2017-06-04] MEDS ORDERED: ALBUT/IPRATROP 3MG/0.5MG NEB 3 ML VIAL INH STA (00:41)
[2017-06-04] MEDS ORDERED: PIPERACILLIN/TAZOBACTAM 4.5 GM/100ML D5W IV STA (01:01)
[2017-06-04] MEDS ORDERED: VANCOMYCIN INJ 2,500 MG in SODIUM CHLORIDE 0.9% 500ML 500 ML IV STA (01:35)
[2017-06-04] MEDS ORDERED: VANCOMYCIN CONSULT ACTIVE PRN (01:45)
[2017-06-04] MEDS ORDERED: BUMETANIDE SOLN 1 MG/4 ML VIAL IV ONE (03:15)
[2017-06-04] MEDS ORDERED: PIPERACILL/TAZOBAC CONSULT ACTIVE PRN (03:45)
[2017-06-04] MEDS ORDERED: ALBUT/IPRATROP 3MG/0.5MG NEB 3 ML VIAL INH PRN (03:45)
[2017-06-04] MEDS ORDERED: ALUMINUM/MAGNESIUM/SIMETH (MAALOX MAX) 30 ML UDC PO PRN (03:45)
[2017-06-04] MEDS ORDERED: MAGNESIUM HYDROXIDE SUSP 30 ML UDC PO PRN (03:45)
[2017-06-04] MEDS ORDERED: POLYETHYLENE (MIRALAX) 17 GM PACK PO PRN (03:45)
[2017-06-04] MEDS ORDERED: ONDANSETRON INJ 2 MG/ML 2 ML VIAL IV PRN (03:45)
[2017-06-04] MEDS ORDERED: ACETAMINOPHEN 325 MG TAB PO PRN (03:45)
--- NOTE | 2017-06-04 04:06 | EMERGENCY ROOM VISIT NOTE ---
History First contact with patient: 23:30 Chief Complaint: FLU LIKE SX Stated Complaint: FLU LIKE SYMPTOMS History of Present Illness The patient is a 36 year old male who presents to the Emergency Room with complaints of fever, chills, cough, congestion and dyspnea for the past day. No temperature was taken at home. Patient took no antipyretics. 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 Patient denies chest pain, abdominal pain, vomiting, diarrhea, neck stiffness, sore throat. Blood sugars have been running high per patient. Review of Systems An 10 system review of systems was completed with positives and pertinent negatives listed in the HPI. Past Medical/Surgical History Medical Problems: (1) CHF (congestive heart failure) (2) Diabetes (3) High cholesterol (4) Hypertension (5) Lymphedema Social History Smoking Status: Never Smoker Alcohol Use: none Drug Use: none Marital Status: single Occupation Status: unemployed Current/Historical Medications Scheduled Amlodipine (Norvasc), 5 MG PO BID Atorvastatin (Lipitor), 80 MG PO DAILY Bumetanide (Bumex), Unknown Dose PO DAILY Gabapentin (Neurontin), 300 MG PO TID Insulin Aspart (Novolog Flexpen), UNITS SQ AC Insulin Glargine (Toujeo Solostar), UNITS SQ HS Levofloxacin (Levaquin), 1 TAB PO Q2D Levothyroxine Sodium (Levothyroxine Sodium), 50 MCG PO DAILY Losartan Potassium (Cozaar), 100 MG PO DAILY Physical Exam Vital Signs Date Time Temp Pulse Resp B/P (MAP) Pulse Ox O2 Delivery O2 Flow Rate FiO2 06/04/17 02:10 36.9 101 24 131/67 92 Nasal Cannula 2.0 06/04/17 01:51 105 06/04/17 01:47 106 06/04/17 01:26 108 24 143/69 96 Room Air 06/04/17 00:52 88 Room Air 06/04/17 00:42 38.3 116 28 165/101 91 Room Air 06/03/17 23:55 120 24 90 Room Air 06/03/17 23:42 120 06/03/17 23:37 39.2 119 24 191/83 93 Room Air Physical Exam VITALS: Vitals are noted on the nurse's note and reviewed by myself. Vital signs febrile. GENERAL: White male who appears ill, well-developed well-nourished. SKIN: The skin was without rashes, erythema, edema, or bruising. There is no tenting of the skin. Capillary reflex less than 2 seconds. HEAD: Normocephalic atraumatic. EARS: External auditory canals clear, tympanic membranes pearly polk without erythema or effusion bilaterally. EYES: Pupils equal round and reactive to light and accommodation. Conjunctivae without injection, sclerae without icterus. Extraocular movements intact. NOSE: Patent, turbinates without inflammation or discharge. No sinus tenderness. MOUTH: Mucous membranes mildly dry pharynx without erythema or exudate. Uvula midline. Airway patent. Tongue does not deviate. NECK: Supple without nuchal rigidity. No lymphadenopathy. No thyromegaly. Cervical spine is nontender. No JVD. HEART: Tachycardic rate and rhythm LUNGS: Mild diffuse infiltrate and end expiratory wheezes. No retractions or accessory muscle use. ABDOMEN: Positive bowel sounds x 4. Normal tympanic percussion. Soft, nontender, without masses or organomegaly. Multani sign negative. No guarding or rebound tenderness. MUSCULOSKELETAL: No muscle atrophy noted. NEURO: Patient was alert and oriented to person place and time. No focal neurological deficits. Medical Decision & Procedures Laboratory Results 06/03/17 23:58 Red Blood Count 3.17, Mean Corpuscular Volume 85.5, Mean Corpuscular Hemoglobin 28.7, Mean Corpuscular Hemoglobin Concent 33.6, Mean Platelet Volume 10.5, Neutrophils (%) (Auto) 76.5, Lymphocytes (%) (Auto) 11.1, Monocytes (%) (Auto) 10.4, Eosinophils (%) (Auto) 1.4, Basophils (%) (Auto) 0.3, Neutrophils # (Auto ) 5.09, Lymphocytes # (Auto) 0.74, Monocytes # (Auto) 0.69, Eosinophils # (Auto ) 0.09, Basophils # (Auto) 0.02 06/03/17 23:58 Test 06/03/17 23:40 06/03/17 23:58 Influenza Type A Antigen Neg for Influ A (NEG) Influenza Type B Antigen Neg for Influ B (NEG) White Blood Count 6.65 K/uL (4.8-10.8) Red Blood Count 3.17 M/uL (4.7-6.1) Hemoglobin 9.1 g/dL (14.0-18.0) Hematocrit 27.1 % (42-52) Mean Corpuscular Volume 85.5 fL (80-100) Mean Corpuscular Hemoglobin 28.7 pg (25-34) Mean Corpuscular Hemoglobin Concent 33.6 g/dl (32-36) Platelet Count 167 K/uL (130-400) Mean Platelet Volume 10.5 fL (7.4-10.4) Neutrophils (%) (Auto) 76.5 % Lymphocytes (%) (Auto) 11.1 % Monocytes (%) (Auto) 10.4 % Eosinophils (%) (Auto) 1.4 % Basophils (%) (Auto) 0.3 % Neutrophils # (Auto) 5.09 K/uL (1.4-6.5) Lymphocytes # (Auto) 0.74 K/uL (1.2-3.4) Monocytes # (Auto) 0.69 K/uL (0.11-0.59) Eosinophils # (Auto) 0.09 K/uL (0-0.5) Basophils # (Auto) 0.02 K/uL (0-0.2) RDW Standard Deviation 40.6 fL (36.4-46.3) RDW Coefficient of Variation 12.9 % (11.5-14.5) Immature Granulocyte % (Auto) 0.3 % Immature Granulocyte # (Auto) 0.02 K/uL (0.00-0.02) Anion Gap 9.0 mmol/L (3-11) Est Creatinine Clear Calc Drug Dose 54.9 ml/min Estimated GFR () 35.3 Estimated GFR (Non- 30.4 BUN/Creatinine Ratio 17.5 (10-20) Calcium Level 8.5 mg/dl (8.5-10.1) Medications Administered Medications (Trade) Dose Ordered Sig/Urvashi Route Start Time Stop Time Status Last Admin Dose Admin Acetaminophen (Tylenol Tab) 1,000 mg NOW STAT PO 06/03/17 23:41 06/03/17 23:42 DC 06/03/17 23:44 1,000 MG Ibuprofen (Motrin Tab) 800 mg NOW STAT PO 06/03/17 23:41 06/03/17 23:42 DC 06/03/17 23:44 800 MG Sodium Chloride 2,000 ml @ 999 mls/hr Q2H1M STAT IV 06/03/17 23:41 06/04/17 01:41 DC 06/03/17 23:54 999 MLS/HR Albuterol/ Ipratropium (Duoneb) 3 ml NOW STAT INH 06/04/17 00:41 06/04/17 00:42 DC 06/04/17 01:07 3 ML Piperacillin Sod/ Tazobactam Sod (Zosyn Iv) 4.5 gm NOW STAT IV 06/04/17 01:01 06/04/17 01:02 DC 06/04/17 01:07 4.5 GM Vancomycin HCl 2500 mg/Sodium Chloride 550 ml @ 200 mls/hr ONE STAT IV 06/04/17 01:35 06/04/17 04:19 06/04/17 02:28 200 MLS/HR ED Course Prior records/ancillary studies reviewed. Triage Nursing notes reviewed. The patient's history was concerning for fever. Differential diagnosis: Etiologies such as viral syndrome, otitis, pharyngitis, pneumonia, influenza, meningitis, urinary tract infection, sepsis, bacteremia, as well as others were entertained. Physical examination: Patient is alert and appears ill ER treatment provided: IV fluids, nebulizer, Zosyn, vancomycin On reassessment the patient felt better. Diagnostics interpreted by me: The labs revealed stable anemia. Creatinine 2.5, stable per chart review. Lactic acid 1.5 Imaging studies: Chest x-ray concerning for bilateral lower lobe pneumonia per my interpretation CT CHEST Without Contrast: Comparison: CXR 06/04/2017 Small bilateral pleural effusions with lung findings suggestive of pulmonary edema. Mild superimposed inflammatory/infectious process difficult to completely exclude, correlate with clinical findings. Small nodular densities, for example at the right apex (image 3-17). Compare to priors if available or consider followup imaging. Multiple small mediastinal lymph nodes. Left thyroid nodule. Radiologist: Rosa Maria Tomlinson M.D. Consultation: A consultation was placed with hospitalist, Dr. Olivera. The case was discussed and diagnostics were reviewed. The patient was evaluated in the ER for further treatment. This appears to be consistent with pneumonia with sepsis. Patient was started on antibiotics and hydrated as above. He had a negative influenza. He was hypoxic. He was given a nebulizer. Blood cultures are pending.. By the evaluation outlined above emergent etiologies such as otitis, pharyngitis, meningitis, urinary tract infection, bacteremia, as well as others were deemed relatively unlikely. The pt informed about the findings as listed above. All questions were answered and pleased with the treatment. Case reviewed with my attending Medical Decision as above Blood Pressure Screening Patient's blood pressure: Elevated blood pressure Blood pressure disposition: Elevated BP felt to be situational Impression Primary Impression: Sepsis Additional Impressions: Pneumonia Anemia Departure Information Dispostion Being Evaluated By Hospitalist Condition FAIR Referrals Maki Peterson M.D. (PCP) Patient Instructions [facility] Problem Qualifiers Primary Impression: Sepsis Sepsis type: sepsis due to unspecified organism Qualified Codes: A41.9 - Sepsis, unspecified organism Additional Impressions: Pneumonia Pneumonia type: due to unspecified organism Laterality: bilateral Lung location: lower lobe of lung Qualified Codes: J18.9 - Pneumonia, unspecified organism
--- NOTE | 2017-06-04 04:36 | History and Physical ---
History & Physical Date & Time of Service: Jun 04, 2017 at 03:56 Chief Complaint: Flu Like Symptoms Primary Care Physician: Maki Peterson M.D. History of Present Illness Source: patient, hospital records 36 y/o m Hx HTN, CKD III, DM II, morbid obesity, chronic anemia, chronic LE edema, chronic ulcers and cellulitis. Presents with acute onset of cough, fever and SOB. Pt describes a productive cough and a high fever over the past day. He denies CP, N/V, diarrhea or dysuria. Initial labs are notable for worsening renal function and mild hyperkalemia. The pt was marginally hypoxic while in the ER. A fever of 38.3 was confirmed on arrival. Due to his habitus a CXR was equivocal. He was subjected to a CT chest therefore which suggested CHF/pulmonary edema but could not r/o a superimposed infectious process. To complicate matters, at the time when the CT was obtained, he had already received 2-3 liters of fluid. The pt is prescribed Bumex for LE edema, although he states he has not complied with this medication. He denies a history of CHF. He is prescribed an extended course of Levaquin for LE ulcers and cellulitis. Past Medical/Surgical History 1) CKD III - baseline creatinine 2.5 2) DM II 3) Morbid obesity 4) HTN 5) Lower extremity edema 6) Chronic lower extremity ulcers and cellulitis 7) Hyperlipidemia 8) Chronic anemia - baseline Hb ranges 9-11 Family History Father owing to an [place] at age 56 Mother due to bladder CA age 66 Social History Smoking Status: Never Smoker Drug Use: none Marital Status: single Housing status: lives with family Occupational Status: unemployed Multi-Drug Resistant Organisms History of MDRO: Yes Type of MDRO: MRSA Allergies Coded Allergies: Influenza Vaccines (Verified Allergy, Intermediate, UNKNOWN, 06/04/17) Lisinopril (Verified Allergy, Intermediate, COUGH, 06/04/17) Home Medications Scheduled Amlodipine (Norvasc), 5 MG PO BID Atorvastatin (Lipitor), 80 MG PO DAILY Bumetanide (Bumex), Unknown Dose PO DAILY Gabapentin (Neurontin), 300 MG PO TID Insulin Aspart (Novolog Flexpen), UNITS SQ AC Insulin Glargine (Toujeo Solostar), UNITS SQ HS Levofloxacin (Levaquin), 1 TAB PO Q2D Levothyroxine Sodium (Levothyroxine Sodium), 50 MCG PO DAILY Losartan Potassium (Cozaar), 100 MG PO DAILY Review of Systems Constitutional: + fever, + chills, No sweats Eyes: No worsening of vision ENT: No hearing loss, No nasal symptoms Respiratory: + cough, + sputum, + shortness of breath, + dyspnea on exertion, + dyspnea at rest Cardiovascular: No chest pain, No orthopnea, No PND Abdomen: No pain, No nausea, No vomiting Musculoskeletal: No joint pain Genitourinary - Male: No hematuria, No dysuria Neurologic: No memory loss, No paralysis, No weakness Psychiatric: No depression symptoms Endocrine: No fatigue Hematologic / Lymphatic: No abnormal bleeding/bruising Integumentary: + rash (chronic LE cellulitis) Allergic / Immunologic: No environmental allergies Physical Exam Vital Signs Date Time Temp Pulse Resp B/P (MAP) Pulse Ox O2 Delivery O2 Flow Rate FiO2 06/04/17 02:10 36.9 101 24 131/67 92 Nasal Cannula 2.0 06/04/17 01:51 105 06/04/17 01:47 106 06/04/17 01:26 108 24 143/69 96 Room Air 06/04/17 00:52 88 Room Air 06/04/17 00:42 38.3 116 28 165/101 91 Room Air 06/03/17 23:55 120 24 90 Room Air 06/03/17 23:42 120 06/03/17 23:37 39.2 119 24 191/83 93 Room Air General Appearance: WD/WN, + pertinent finding (Morbidly obese, young male - no distress) Head: normocephalic Eyes: normal inspection ENT: normal ENT inspection, pharynx normal Neck: supple, no JVD Respiratory/Chest: chest non-tender, lungs clear Cardiovascular: regular rate, rhythm, no edema, no gallop Abdomen/GI: normal bowel sounds, non tender Back: normal inspection, no CVA tenderness Extremities/Musculoskelatal: no calf tenderness, normal range of motion, + pedal edema Neurologic/Psych: anthropological linguist II-XII nml as tested, no motor/sensory deficits, alert, oriented x 3 Skin: + pertinent finding (LE erythema, several ant ulcers, stasis changes) Diagnostics Laboratory Results Results Past 24 Hours Test 06/03/17 23:40 06/03/17 23:58 Range/Units Influenza Type A Antigen Neg for Influ A NEG Influenza Type B Antigen Neg for Influ B NEG White Blood Count 6.65 4.8-10.8 K/uL Red Blood Count 3.17 4.7-6.1 M/uL Hemoglobin 9.1 14.0-18.0 g/dL Hematocrit 27.1 42-52 % Mean Corpuscular Volume 85.5 80-100 fL Mean Corpuscular Hemoglobin 28.7 25-34 pg Mean Corpuscular Hemoglobin Concent 33.6 32-36 g/dl Platelet Count 167 130-400 K/uL Mean Platelet Volume 10.5 7.4-10.4 fL Neutrophils (%) (Auto) 76.5 % Lymphocytes (%) (Auto) 11.1 % Monocytes (%) (Auto) 10.4 % Eosinophils (%) (Auto) 1.4 % Basophils (%) (Auto) 0.3 % Neutrophils # (Auto) 5.09 1.4-6.5 K/uL Lymphocytes # (Auto) 0.74 1.2-3.4 K/uL Monocytes # (Auto) 0.69 0.11-0.59 K/uL Eosinophils # (Auto) 0.09 0-0.5 K/uL Basophils # (Auto) 0.02 0-0.2 K/uL RDW Standard Deviation 40.6 36.4-46.3 fL RDW Coefficient of Variation 12.9 11.5-14.5 % Immature Granulocyte % (Auto) 0.3 % Immature Granulocyte # (Auto) 0.02 0.00-0.02 K/uL Sodium Level 138 136-145 mmol/L Potassium Level 5.3 3.5-5.1 mmol/L Chloride Level 105 98-107 mmol/L Carbon Dioxide Level 24 21-32 mmol/L Anion Gap 9.0 3-11 mmol/L Blood Urea Nitrogen 46 7-18 mg/dl Creatinine 2.61 0.60-1.40 mg/dl Est Creatinine Clear Calc Drug Dose 54.9 ml/min Estimated GFR () 35.3 Estimated GFR (Non- 30.4 BUN/Creatinine Ratio 17.5 10-20 Random Glucose 281 70-99 mg/dl Calcium Level 8.5 8.5-10.1 mg/dl Microbiology Results 06/04/17 Blood Culture, Received Pending 06/04/17 Blood Culture, Received Pending Diagnostic Radiology CT chest: Likely pulmonary edema - infection cannot be ruled out EKG NSR Normal EKG Impression Assessment and Plan 36 y/o m Hx HTN, CKD III, DM II, morbid obesity, chronic anemia, chronic LE edema, chronic ulcers and cellulitis. Presents with acute onset of cough, fever and SOB. Pt describes a productive cough and a high fever over the past day. He denies CP, N/V, diarrhea or dysuria. Initial labs are notable for worsening renal function and mild hyperkalemia. The pt was marginally hypoxic while in the ER. A fever of 38.3 was confirmed on arrival. Due to his habitus a CXR was equivocal. He was subjected to a CT chest therefore which suggested CHF/pulmonary edema but could not r/o a superimposed infectious process. To complicate matters, at the time when the CT was obtained, he had already received 2-3 liters of fluid. The pt is prescribed Bumex for LE edema, although he states he has not complied with this medication. He denies a history of CHF. 1) SOB and fever. May be multifactorial. An infectious process is present as is evident by his fever, cough and acute symptom onset. It is unclear if new- onset CHF is contributing. It is difficult to appreciate distinct infiltrates on CT - a flu PCR is pending as is a procalcitonin. As he takes Levaquin chronically, we will treat with Zosyn until bacterial infection can be ruled out. He will also receive Tamiflu pending results of a PCR. PRN duonebs and an 02 protocol are provided. We have ordered an echo and consulted cardiology for AM. He received a dose of IV Bumex in the ER. A BMP is pending for 8am. If his renal function improves with diuresis, this may provide additional evidence that CHF is present. His volume status cannot be clinically assessed due to his habitus. I/O and daily weights requested. There may also be an element of hypoventilation and AMELIA playing a role in his borderline 02 saturation. If setting a target for recovery, it should be kept in mind that he may reside in the 80s at baseline and certainly when sleeping. 2) CKD - renal function is impaired compared to baseline. BMP will be trended. As mentioned, he will be diuresed with Bumex presently, although he did receive IVF in the ER. 3) DM II - placed on a SS + Lantus 4) HTN - he will continue Norvasc. Losartan is held due to hyperkalemia and MICHAEL. 5) HyperK - should respond to diuresis - repeat BMP pending. 6) Chronic LE ulcers and cellulitis - will remain on Levaquin - wound care to be consulted. 7) Anemia - Hb is approximately at baseline and will be trended 8) Pt would benefit from weight loss and nutritional counseling Full code - Heparin prophylaxis Total time for this admit including review of labs, meds, imaging, records, EKG - discussion with pt and ER attending - 40 min Level of Care Telemetry VTE Prophylaxis VTE Risk Assessment Done? Y/N: Yes Risk Level: Moderate Given or contraindicated: Unfractionated heparin SQ
[2017-06-04 05:03] LABS: INFLUENZA A PCR Neg for Influ A (NEG); INFLUENZA B PCR Neg for Influ B (NEG)
[2017-06-04 05:05] VITALS: BP 152/91; PULSE 88; TEMP 36.6; O2SAT 97; BMI 54.7
[2017-06-04] MEDS ORDERED: BUMETANIDE IV 2 MG in SYRINGE 0 ML IV SCH (05:30)
[2017-06-04] MEDS: PIPERACILL/TAZOBAC IV 4.5 GM in DEXTROSE 5% 100ML 100 ML IV SCH ×3 (06:09→22:23)
[2017-06-04] MEDS: LEVOTHYROXINE 50 MCG TAB PO SCH (06:18)
[2017-06-04 06:27] LABS: CALCIUM 8.2 mg/dl (8.5-10.1); CREATININE 2.79 mg/dl (0.60-1.40); POTASSIUM 5.4 mmol/L (3.5-5.1)
[2017-06-04] MEDS ORDERED: PERFLUTREN LIPID MICROSPHERE (DEFINITY) IV ONE (06:55)
--- NOTE | 2017-06-04 06:56 | DIAGNOSTIC IMAGING REPORT ---
CHEST 2 VIEWS ROUTINE CLINICAL HISTORY: fever dyspnea COMPARISON STUDY: 07/23/2016 FINDINGS: Mild cardiomegaly. Diffuse parenchymal prominence bilaterally suggesting pulmonary edema. Diaphragms smooth. Costophrenic angles are sharp. IMPRESSION: Pulmonary edema versus congestive failure. The above report was generated using voice recognition software. It may contain grammatical, syntax or spelling errors. Electronically signed by: Antonio Horvath M.D. 06/04/2017 6:55 AM Dictated Date/Time: 06/04/2017 6:54 AM
--- NOTE | 2017-06-04 07:10 | DIAGNOSTIC IMAGING REPORT ---
(CHEST) THORAX WITHOUT CT DOSE: 1341.83 mGy.cm HISTORY: Cough. Fever. cough/fever, ? pna TECHNIQUE: Multiaxial CT images of the chest were performed without contrast. A dose lowering technique was utilized adhering to the principles of ALARA. COMPARISON: Chest series same date FINDINGS: Distinct prominence of pulmonary vasculature. No well-defined focal infiltrate. 9 mm pleural-based nodule right pulmonary apex. Several indeterminate periaortic and mid to superior mediastinal nodes these measure to 1.2 cm. Mild cardiomegaly. Small bilateral pleural effusions. IMPRESSION: 1. Congestive failure versus pulmonary edema. 2. Bilateral pleural effusions. 3. Several nonspecific mediastinal nodes with very subtle basilar parenchymal nodularity and pleural-based right apical 9 mm nodule. 4. Study should be repeated when current symptomatology has improved The above report was generated using voice recognition software. It may contain grammatical, syntax or spelling errors. Electronically signed by: Antonio Horvath M.D. 06/04/2017 7:08 AM Dictated Date/Time: 06/04/2017 7:06 AM
[2017-06-04 07:25] VITALS: BP 168/95; PULSE 88; TEMP 36.6; O2SAT 91
--- NOTE | 2017-06-04 08:40 | ECHOCARDIOGRAM REPORT ---
*NOTICE TO RECEIVING LIBERTARIAN AGENCY This information is strictly Confidential and protected under [place] law. [place] law prohibits you from making any further disclosure of this information unless further disclosure is expressly permitted by the written consent of the person to whom it pertains or is authorized by law. A general authorization for the release of medical or other information is not sufficient for this purpose. Hospital accepts no responsibility if the information is made available to any other person, INCLUDING THE PATIENT. Interpretation Summary * Name: VIJAYA HAMILTON Study Date: 06/04/2017 06:26 AM BP: 152/91 mmHg * Patient Location: C.2T\S\E215\S\1 HR: 88 * : 1980 (M/d/yyyy) Gender: Male Height: 67 in * Age: 36 yrs Ethnicity: CA Weight: 323 lb * Ordering Physician: Baljinder Olivera * Referring Physician: Self, Referred * Performed By: Tim Blackburn RCS * * Reason For Study: CHF * BSA: 2.5 m2 * -- Conclusions -- * There is borderline concentric left ventricular hypertrophy. * Left ventricular systolic function is normal. * The left atrium is mildly dilated. * Right ventricular systolic pressure is normal. Procedure Details * A complete two-dimensional transthoracic echocardiogram was performed (2D, M-mode, Doppler and color flow Doppler). * There were technical limitations due to patient's body habitus and supine positioning for imagining * A contrast injection of Definity was performed to improve assessment of LV function. * Contrast was injected into an intravenous site in the right arm. * One vial of Definity ultrasound contrast was diluted in normal saline to a total volume of 10 ml. A total of '1' ml of solution was administered during imaging. * Lot # [id number] of Definity utilized for procedure. * Expiration date . * The attending nurse who injected the contrast agent was Kathy Mariee RN. Left Ventricle * The left ventricle is normal in size. * There is borderline concentric left ventricular hypertrophy. * Ejection Fraction = 55-60%. * Left ventricular systolic function is normal. * Normal diastolic function * The left ventricular wall motion is normal. Atria * The left atrium is mildly dilated. * Right atrial size is normal. Mitral Valve * The mitral valve is grossly normal. * Significant mitral regurgitation is absent. Tricuspid Valve * The tricuspid valve is not well visualized, but is grossly normal. * There is trace tricuspid regurgitation. * Right ventricular systolic pressure is normal. Aortic Valve * The aortic valve is not well visualized. * No hemodynamically significant valvular aortic stenosis. * There is no significant aortic regurgitation. Great Vessels * The aortic root is normal size. Pericardium/Pleural * There is no pericardial effusion. Great Vessels * The inferior vena cava is mildly dilated. MMode 2D Measurements and Calculations IVSd 1.4 cm IVSs 1.6 cm LVIDd 5.4 cm LVIDs 3.7 cm LVPWd 1.2 cm LVPWs 2.1 cm IVS/LVPW 1.1 FS 31.3 % EDV(Teich) 140.7 ml ESV(Teich) 58.2 ml EF(Teich) 58.6 % EDV(cubed) 156.6 ml ESV(cubed) 50.7 ml EF(cubed) 67.6 % % IVS thick 14.7 % % LVPW thick 65.6 % LV mass(C)d 301.3 grams LV mass(C)dI 121.5 grams/m\S\2 LV mass(C)s 290.3 grams LV mass(C)sI 117.1 grams/m\S\2 SV(Teich) 82.5 ml SI(Teich) 33.3 ml/m\S\2 SV(cubed) 105.9 ml SI(cubed) 42.7 ml/m\S\2 Ao root diam 3.5 cm Ao root area 9.5 cm\S\2 ACS 1.8 cm LA dimension 4.4 cm LA/Ao 1.3 LVAd ap4 36.3 cm\S\2 LVLd ap4 8.5 cm EDV(MOD-sp4) 126.5 ml EDV(sp4-el) 131.1 ml LVAs ap4 21.1 cm\S\2 LVLs ap4 7.1 cm ESV(MOD-sp4) 53.6 ml ESV(sp4-el) 53.0 ml EF(MOD-sp4) 57.6 % EF(sp4-el) 59.5 % LVAd ap2 33.7 cm\S\2 LVLd ap2 8.1 cm EDV(MOD-sp2) 111.7 ml EDV(sp2-el) 119.0 ml LVAs ap2 22.3 cm\S\2 LVLs ap2 7.6 cm ESV(MOD-sp2) 52.1 ml ESV(sp2-el) 55.3 ml EF(MOD-sp2) 53.3 % EF(sp2-el) 53.5 % LVLd %diff -5.30 % EDV(MOD-bp) 119.0 ml LVLs %diff 7.0 % ESV(MOD-bp) 54.1 ml EF(MOD-bp) 54.6 % SV(MOD-sp4) 72.9 ml SI(MOD-sp4) 29.4 ml/m\S\2 SV(MOD-sp2) 59.6 ml SI(MOD-sp2) 24.0 ml/m\S\2 SV(MOD-bp) 64.9 ml SI(MOD-bp) 26.2 ml/m\S\2 SV(sp4-el) 78.1 ml SI(sp4-el) 31.5 ml/m\S\2 SV(sp2-el) 63.7 ml SI(sp2-el) 25.7 ml/m\S\2 Doppler Measurements and Calculations MV E max guerline 96.7 cm/sec MV A max guerline 77.9 cm/sec MV E/A 1.2 MV P1/2t max guerline 128.1 cm/sec MV P1/2t 66.1 msec MVA(P1/2t) 3.3 cm\S\2 MV dec slope 567.8 cm/sec\S\2 MV dec time 0.28 sec Ao V2 max 142.5 cm/sec Ao max PG 8.1 mmHg Ao max PG (full) 3.2 mmHg LV V1 max PG 4.9 mmHg LV V1 max 110.5 cm/sec PA V2 max 108.7 cm/sec PA max PG 4.7 mmHg TR max guerline 180.8 cm/sec
[2017-06-04] MEDS ORDERED: AMLODIPINE BESYLATE 5 MG TAB PO SCH (09:00)
[2017-06-04] MEDS ORDERED: LOSARTAN POTASSIUM 50 MG TAB PO SCH (09:00)
[2017-06-04] MEDS ORDERED: OSELTAMIVIR PHOSPHATE SUSP 30 MG/5 ML UDP PO SCH (09:00)
[2017-06-04] MEDS: ATORVASTATIN 40 MG TAB PO SCH (09:30)
[2017-06-04] MEDS: BUMETANIDE 1 MG TAB PO SCH ×2 (09:31→16:19)
[2017-06-04] MEDS: GABAPENTIN 300 MG CAP PO SCH ×3 (09:31→19:32)
[2017-06-04] MEDS: INSULIN ASPART 100 UNITS/ML 3 ML PEN SC SCH ×3 (09:35→16:19)
[2017-06-04] MEDS: HEPARIN SOD 5000 UNIT/0.5 ML CARP SQ SCH ×3 (09:36→22:24)
--- NOTE | 2017-06-04 09:47 | Cardiology Consultation ---
Cardiology Consultation Date of Consultation: Jun 04, 2017. Requesting Physician: Joselin Reason for Consultation: SOB Pt evaluation today including: conversation w/ patient, physical exam, chart review, lab review, review of studies, review of inpatient medication list, conversation w/ attending History of Present Illness Patient is a 36-year-old gentleman without a known history of cardiac disease who presented to [facility] with approximately 36 hours of worsening shortness of breath. Patient states that 2 days ago he developed the fairly acute onset of a nonproductive cough and shortness of breath. This was later followed by documented fevers. He did not report overall myalgias. He did not have rigors. He denied pain in any location but did report a slight fluttering sensation in the right chest wall. He has not been dizzy or lightheaded. He cannot recall any sick contacts. Patient has been sleeping in a chair for many years due to leg cramps. He cannot recall if he has gained any weight. He has not noticed any worsening edema but has some excessive chronic edema in his lower extremities. He has not been aware of any palpitations. He has not suffered any syncope. Overall he is fairly sedentary. Around his residence he can ambulate without assistance. When he goes out uses a cane. He tends limit his outdoor activities and errands to a few times per week. He denies any chest pain or chest pressure associated with this type of activity. He is generally not limited by dyspnea. Past Medical/Surgical History Diabetes mellitus type 1 Chronic renal insufficiency Diabetic neuropathy Chronic lower extremity edema Hyperlipidemia Hypertension Hypothyroidism Erectile dysfunction Chronic lower extremity ulcers Morbid obesity Past surgical history None Family History No premature coronary disease. Brother with end-stage renal disease Social History Smoking Status: Never Smoker History of Alcohol Use: No Patient currently disabled. Lives with his brother. Review of Systems Per HPI. He has not had any recent nausea or vomiting. He claims to have normal appetite has been eating throughout this current illness. He claims to follow low-sodium diet but otherwise does not monitor his carbohydrate intake. He does not check his blood sugars at home. He generally does not take his diuretic at home. All Other Systems: Reviewed and Negative Allergies Coded Allergies: Influenza Vaccines (Verified Allergy, Intermediate, UNKNOWN, 06/04/17) Lisinopril (Verified Allergy, Intermediate, COUGH, 06/04/17) Medications Current Inpatient Medications Medications (Trade) Dose Ordered Sig/Urvashi Route Start Time Stop Time Status Last Admin Dose Admin Amlodipine Besylate (Norvasc Tab) 5 mg BID PO 06/04/17 09:00 07/04/17 08:59 Atorvastatin Calcium (Lipitor Tab) 80 mg DAILY PO 06/04/17 09:00 07/04/17 08:59 Bumetanide (Bumex Tab) 2 mg BIDM PO 06/04/17 07:30 07/04/17 07:29 Gabapentin (Neurontin Cap) 300 mg TID PO 06/04/17 09:00 07/04/17 08:59 Levothyroxine Sodium (Synthroid Tab) 50 mcg DAILYBB PO 06/04/17 06:00 07/04/17 06:59 06/04/17 06:18 50 MCG Losartan Potassium (coZAAR TAB) 100 mg DAILY PO 06/04/17 09:00 07/04/17 08:59 Heparin Sodium (Porcine) (Heparin Sq 5000 Unit/0.5ml) 5,000 unit Q8 SQ 06/04/17 07:15 07/04/17 07:14 Acetaminophen (Tylenol Tab) 650 mg Q4H PRN PO 06/04/17 03:45 07/04/17 03:44 Al Hydrox/Mg Hydrox/Simethicone (Maalox Max Susp) 15 ml Q4H PRN PO 06/04/17 03:45 07/04/17 03:44 Magnesium Hydroxide (Milk Of Magnesia Susp) 30 ml Q12H PRN PO 06/04/17 03:45 07/04/17 03:44 Ondansetron HCl (Zofran Inj) 4 mg Q6H PRN IV 06/04/17 03:45 07/04/17 03:44 Polyethylene (Miralax Powder Packet) 17 gm DAILY PRN PO 06/04/17 03:45 07/04/17 03:44 Piperacillin Sod/ Tazobactam Sod 4.5 gm/Dextrose 120 ml @ 30 mls/hr Q8H IV 06/04/17 06:00 06/11/17 05:59 06/04/17 06:09 30 MLS/HR Miscellaneous Information (Consult) 1 ea UD PRN N/A 06/04/17 03:45 07/04/17 03:44 Albuterol/ Ipratropium (Duoneb) 3 ml Q6H PRN INH 06/04/17 03:45 07/04/17 03:44 Insulin Aspart (novoLOG ASPART) SLIDING SCALE G... ACHS SC 06/04/17 07:00 07/04/17 06:59 Insulin Glargine (Lantus Solostar Pen) 20 units HS SC 06/04/17 21:00 07/04/17 20:59 Physical Exam Vital Signs Past 12 Hours Date Time Temp Pulse Resp B/P (MAP) Pulse Ox O2 Delivery O2 Flow Rate FiO2 06/04/17 07:25 36.6 88 22 168/95 (119) 91 Room Air 06/04/17 05:05 36.6 88 22 152/91 97 Room Air 06/04/17 04:58 88 18 118/70 94 06/04/17 04:00 90 20 122/69 92 Room Air 06/04/17 02:10 36.9 101 24 131/67 92 Nasal Cannula 2.0 06/04/17 01:51 105 06/04/17 01:47 106 06/04/17 01:26 108 24 143/69 96 Room Air 06/04/17 00:52 88 Room Air 06/04/17 00:42 38.3 116 28 165/101 91 Room Air 06/03/17 23:55 120 24 90 Room Air 06/03/17 23:42 120 06/03/17 23:37 39.2 119 24 191/83 93 Room Air The patient is alert and oriented. Mood and affect appeared normal. He answered all questions appropriately. HEENT: Pupils are equal and reactive to light and accommodation. Extraocular movements are intact. The sclerae are anicteric. Neuro: Cranial nerves intact Neck: Patient's neck is redundant. He has palpable carotid pulses bilaterally without bruits on auscultation. There is no evidence of jugular venous distention. The thyroid is not enlarged. Lungs: Clear to auscultation bilaterally but distant. He has good air movement without use of accessory muscles. No rales wheezes or rhonchi. Cardiac: Heart demonstrates a regular rate and rhythm. Normal S1 and S2. No murmurs on examination. Pulses: The patient has palpable radial pulses bilaterally that are equal in intensity Extremities: There is no evidence cyanosis or clubbing in the hands. His lower extremities were markedly edematous and wrapped. Skin: I did not appreciate any rashes on examination today. Data Laboratory Results: Last 24 Hours Test 06/03/17 23:40 06/03/17 23:58 06/04/17 04:16 06/04/17 05:36 Influenza Type A Antigen Neg for Influ A Influenza Type B Antigen Neg for Influ B White Blood Count 6.65 K/uL Red Blood Count 3.17 M/uL Hemoglobin 9.1 g/dL Hematocrit 27.1 % Mean Corpuscular Volume 85.5 fL Mean Corpuscular Hemoglobin 28.7 pg Mean Corpuscular Hemoglobin Concent 33.6 g/dl Platelet Count 167 K/uL Mean Platelet Volume 10.5 fL Neutrophils (%) (Auto) 76.5 % Lymphocytes (%) (Auto) 11.1 % Monocytes (%) (Auto) 10.4 % Eosinophils (%) (Auto) 1.4 % Basophils (%) (Auto) 0.3 % Neutrophils # (Auto) 5.09 K/uL Lymphocytes # (Auto) 0.74 K/uL Monocytes # (Auto) 0.69 K/uL Eosinophils # (Auto) 0.09 K/uL Basophils # (Auto) 0.02 K/uL RDW Standard Deviation 40.6 fL RDW Coefficient of Variation 12.9 % Immature Granulocyte % (Auto) 0.3 % Immature Granulocyte # (Auto) 0.02 K/uL Sodium Level 138 mmol/L Potassium Level 5.3 mmol/L Chloride Level 105 mmol/L Carbon Dioxide Level 24 mmol/L Anion Gap 9.0 mmol/L Blood Urea Nitrogen 46 mg/dl Creatinine 2.61 mg/dl Est Creatinine Clear Calc Drug Dose 54.9 ml/min Estimated GFR () 35.3 Estimated GFR (Non- 30.4 BUN/Creatinine Ratio 17.5 Random Glucose 281 mg/dl Calcium Level 8.5 mg/dl Lactic Acid Level 0.7 mmol/L Procalcitonin 0.75 ng/ml Prothrombin Time 10.4 SECONDS Prothromb Time International Ratio 1.0 Test 06/04/17 05:37 06/04/17 06:52 Hemoglobin 8.0 g/dL Sodium Level 138 mmol/L Potassium Level 5.4 mmol/L Chloride Level 107 mmol/L Carbon Dioxide Level 25 mmol/L Anion Gap 6.0 mmol/L Blood Urea Nitrogen 51 mg/dl Creatinine 2.79 mg/dl Est Creatinine Clear Calc Drug Dose 52.1 ml/min Estimated GFR () 32.5 Estimated GFR (Non- 28.1 BUN/Creatinine Ratio 18.4 Random Glucose 297 mg/dl Calcium Level 8.2 mg/dl Magnesium Level 2.3 mg/dl Total Creatine Kinase 1075 U/L Troponin I 0.021 ng/ml Bedside Glucose 330 mg/dl Imaging: Chest x-ray and CT scan all demonstrated some evidence pulmonary vascular prominence EKG: Normal sinus rhythm. Normal Telemetry reviewed: No significant arrhythmia Echocardiogram performed this morning demonstrated preserved LV systolic and diastolic function. No significant valvular abnormalities. No wall motion abnormalities. Patient is stress echocardiogram performed 04/10/2016: Preserved LV systolic function. Mild mitral regurgitation. Assessment & Plan 1. Pulmonary edema: Patient does appear to have an element of pulmonary vascular congestion on imaging study. His examination however is relatively benign. He is currently saturating normally on room air. His cardiac evaluation has been unremarkable. He is not appear to have any evidence of cardiac dysfunction. I suspect he has an element of overall volume overload perhaps related to his chronic kidney disease and noncompliance with his diuretic use. He has been administered some bumetanide this morning. His eyes and nose have not yet been recorded after this dose. He likely needs some mild diuresis and reinstitution of his daily diuretic therapy. 2. Hypertension: He appears to have suboptimal control. There has been some debate regarding the use of amlodipine in the outpatient setting given his lower extremity edema. Intensification of his antihypertensive therapy may reduce future complications and lower his risk of significant diastolic dysfunction 3. Cardiac risk: Patient's 10 year cardiac risk based on traditional risk factors is approximately 5 percent. He has been started on high-dose atorvastatin which seems reasonable.
[2017-06-04 10:53] VITALS: BP 202/102; PULSE 99; TEMP 37.3; O2SAT 93
[2017-06-04] MEDS ORDERED: INSULIN GLARGINE SOLOSTAR 100 UNITS/ML 3 ML PEN SC ONE ×2 (11:15→16:00)
[2017-06-04] MEDS ORDERED: NURSING VERBAL MED ORDER ONE (11:15)
[2017-06-04] MEDS ORDERED: HydrALAZINE HCL 20 MG/ML VIAL IV. PRN ×2 (11:30→14:15)
[2017-06-04] MEDS ORDERED: CARVEDILOL 12.5 MG TAB PO ONE (13:56)
--- NOTE | 2017-06-04 14:36 | Hospitalist Progress Note ---
Hospitalist Progress Note Date of Service Jun 04, 2017. (Teresa Restrepo ., PA-C) Subjective Pt evaluation today including: conversation w/ patient, physical exam, lab review, review of studies, review of inpatient medication list Voiding: no voiding problems Patient sitting in bedside chair. States he was very SOB at presentation to ED. Breathing is now improving. +non-productive cough. States he is to be on Bumex by nephrology but admits to not taking medication. Patient has very poor T1DM control. States he takes insulin based off of how he is feeling. Currently following w/ wound care for bilateral LE cellulitis. Patient denies any fever, chills, sweats, lightheadedness, dizziness, vision changes, CP, palpitations, wheezing, abdominal pain, nausea, vomiting, diarrhea , urinary symptoms, melena, numbness/tingling, weakness, muscle/joint pain, anxiety/depression, active bleeding, or new skin discoloration/changes. (Teresa Restrepo ., PA-C) Medications Current Inpatient Medications Medications (Trade) Dose Ordered Sig/Urvashi Route Start Time Stop Time Status Last Admin Dose Admin Amlodipine Besylate (Norvasc Tab) 5 mg BID PO 06/04/17 09:00 07/04/17 08:59 06/04/17 09:30 5 MG Atorvastatin Calcium (Lipitor Tab) 80 mg DAILY PO 06/04/17 09:00 07/04/17 08:59 06/04/17 09:30 80 MG Bumetanide (Bumex Tab) 2 mg BIDM PO 06/04/17 07:30 07/04/17 07:29 06/04/17 09:31 2 MG Gabapentin (Neurontin Cap) 300 mg TID PO 06/04/17 09:00 07/04/17 08:59 06/04/17 09:31 300 MG Levothyroxine Sodium (Synthroid Tab) 50 mcg DAILYBB PO 06/04/17 06:00 07/04/17 06:59 06/04/17 06:18 50 MCG Losartan Potassium (coZAAR TAB) 100 mg DAILY PO 06/04/17 09:00 07/04/17 08:59 Heparin Sodium (Porcine) (Heparin Sq 5000 Unit/0.5ml) 5,000 unit Q8 SQ 06/04/17 07:15 07/04/17 07:14 06/04/17 09:36 5,000 UNIT Acetaminophen (Tylenol Tab) 650 mg Q4H PRN PO 06/04/17 03:45 07/04/17 03:44 Al Hydrox/Mg Hydrox/Simethicone (Maalox Max Susp) 15 ml Q4H PRN PO 06/04/17 03:45 07/04/17 03:44 Magnesium Hydroxide (Milk Of Magnesia Susp) 30 ml Q12H PRN PO 06/04/17 03:45 07/04/17 03:44 Ondansetron HCl (Zofran Inj) 4 mg Q6H PRN IV 06/04/17 03:45 07/04/17 03:44 Polyethylene (Miralax Powder Packet) 17 gm DAILY PRN PO 06/04/17 03:45 07/04/17 03:44 Piperacillin Sod/ Tazobactam Sod 4.5 gm/Dextrose 120 ml @ 30 mls/hr Q8H IV 06/04/17 06:00 06/11/17 05:59 06/04/17 06:09 30 MLS/HR Miscellaneous Information (Consult) 1 ea UD PRN N/A 06/04/17 03:45 07/04/17 03:44 Albuterol/ Ipratropium (Duoneb) 3 ml Q6H PRN INH 06/04/17 03:45 07/04/17 03:44 Insulin Aspart (novoLOG ASPART) SLIDING SCALE G... ACHS SC 06/04/17 07:00 07/04/17 06:59 06/04/17 11:22 7 UNITS Insulin Glargine (Lantus Solostar Pen) 20 units HS SC 06/04/17 21:00 07/04/17 20:59 Insulin Glargine (Lantus Solostar Pen) 30 units QAM SC 06/05/17 09:00 07/05/17 08:59 Hydralazine HCl (HydrALAZINE INJ) 10 mg Q8H PRN IV. 06/04/17 11:30 07/04/17 11:29 06/04/17 11:39 10 MG (Teresa Restrepo, NILDA) Objective Vital Signs Date Time Temp Pulse Resp B/P (MAP) Pulse Ox O2 Delivery O2 Flow Rate FiO2 06/04/17 12:55 Room Air 06/04/17 10:53 37.3 99 20 202/102 (135) 93 Room Air 06/04/17 08:00 Room Air 06/04/17 07:25 36.6 88 22 168/95 (119) 91 Room Air 06/04/17 05:05 36.6 88 22 152/91 97 Room Air 06/04/17 04:58 88 18 118/70 94 06/04/17 04:00 90 20 122/69 92 Room Air 06/04/17 02:10 36.9 101 24 131/67 92 Nasal Cannula 2.0 06/04/17 01:51 105 06/04/17 01:47 106 06/04/17 01:26 108 24 143/69 96 Room Air 06/04/17 00:52 88 Room Air 06/04/17 00:42 38.3 116 28 165/101 91 Room Air 06/03/17 23:55 120 24 90 Room Air 06/03/17 23:42 120 06/03/17 23:37 39.2 119 24 191/83 93 Room Air (Teresa Restrepo ., PA-C) Physical Exam General Appearance: no apparent distress, + obese Eyes: normal inspection, PERRL ENT: hearing grossly normal Neck: supple Respiratory/Chest: lungs clear, no respiratory distress, no accessory muscle use Cardiovascular: regular rate, rhythm Abdomen: normal bowel sounds, non tender, soft Extremities: no calf tenderness, + pedal edema, + pertinent finding (bilateral LE in dressings ) Neurologic/Psychiatric: alert, oriented x 3, + depressed affect Skin: normal color, warm/dry, no rash (Teresa Restrepo ., PA-C) Laboratory Results Last 24 Hours Test 06/03/17 23:40 06/03/17 23:58 06/04/17 04:16 06/04/17 05:36 Influenza Type A Antigen Neg for Influ A Influenza Type B Antigen Neg for Influ B White Blood Count 6.65 K/uL Red Blood Count 3.17 M/uL Hemoglobin 9.1 g/dL Hematocrit 27.1 % Mean Corpuscular Volume 85.5 fL Mean Corpuscular Hemoglobin 28.7 pg Mean Corpuscular Hemoglobin Concent 33.6 g/dl Platelet Count 167 K/uL Mean Platelet Volume 10.5 fL Neutrophils (%) (Auto) 76.5 % Lymphocytes (%) (Auto) 11.1 % Monocytes (%) (Auto) 10.4 % Eosinophils (%) (Auto) 1.4 % Basophils (%) (Auto) 0.3 % Neutrophils # (Auto) 5.09 K/uL Lymphocytes # (Auto) 0.74 K/uL Monocytes # (Auto) 0.69 K/uL Eosinophils # (Auto) 0.09 K/uL Basophils # (Auto) 0.02 K/uL RDW Standard Deviation 40.6 fL RDW Coefficient of Variation 12.9 % Immature Granulocyte % (Auto) 0.3 % Immature Granulocyte # (Auto) 0.02 K/uL Sodium Level 138 mmol/L Potassium Level 5.3 mmol/L Chloride Level 105 mmol/L Carbon Dioxide Level 24 mmol/L Anion Gap 9.0 mmol/L Blood Urea Nitrogen 46 mg/dl Creatinine 2.61 mg/dl Est Creatinine Clear Calc Drug Dose 54.9 ml/min Estimated GFR () 35.3 Estimated GFR (Non- 30.4 BUN/Creatinine Ratio 17.5 Random Glucose 281 mg/dl Calcium Level 8.5 mg/dl Lactic Acid Level 0.7 mmol/L Procalcitonin 0.75 ng/ml Prothrombin Time 10.4 SECONDS Prothromb Time International Ratio 1.0 Test 06/04/17 05:37 06/04/17 06:52 06/04/17 11:15 Hemoglobin 8.0 g/dL Sodium Level 138 mmol/L Potassium Level 5.4 mmol/L Chloride Level 107 mmol/L Carbon Dioxide Level 25 mmol/L Anion Gap 6.0 mmol/L Blood Urea Nitrogen 51 mg/dl Creatinine 2.79 mg/dl Est Creatinine Clear Calc Drug Dose 52.1 ml/min Estimated GFR () 32.5 Estimated GFR (Non- 28.1 BUN/Creatinine Ratio 18.4 Random Glucose 297 mg/dl Calcium Level 8.2 mg/dl Magnesium Level 2.3 mg/dl Total Creatine Kinase 1075 U/L Troponin I 0.021 ng/ml Bedside Glucose 330 mg/dl 420 mg/dl (Teresa Restrepo, ELINC) Assessment and Plan 36 y/o m Hx HTN, CKD III, T1DM, morbid obesity, chronic anemia, chronic LE edema , chronic ulcers and cellulitis. Presents with acute onset of cough, fever and SOB. Pt describes a productive cough and a high fever over the past day. He denies CP, N/V, diarrhea or dysuria. Initial labs are notable for worsening renal function and mild hyperkalemia. The pt was marginally hypoxic while in the ER. A fever of 38.3 was confirmed on arrival. Due to his habitus a CXR was equivocal. He was subjected to a CT chest therefore which suggested CHF/ pulmonary edema but could not r/o a superimposed infectious process. To complicate matters, at the time when the CT was obtained, he had already received 2-3 liters of fluid. The pt is prescribed Bumex for LE edema, although he states he has not complied with this medication. He denies a history of CHF. SOB and fever, ?infectious process: - Admitted to tele for cardiac monitoring- no acute events - O2 protocol, wean as tolerated - On prolonged course of Levaquin for LE ulcer- held and started on IV Zosyn - Procalcitonin 0.75 - Influenza negative, BCx pending - DuoNebs QID PRN ?Acute CHF exacerbation: - Bumex increased to 2 mg BID from daily - Monitor I&Os and daily weights - ECHO- normal EF, LVH - Cardiology consulted, appreciate recommendations MICHAEL on CKD stage III, chronic anemia- follows w/ Dr. Miranda: - Patient to be on Bumex but admits to not taking medication- restarted Bumex as above - UA pending - Hold nephrotoxic agents and renally dose medications as appropriate - Follow PRP and CBC - Nephrology consulted, appreciate recommendations Hyperkalemia, secondary to MICHAEL: - Monitor on tele - EKG w/out changes - Losartan held - MICHAEL treatment as above HTN: - Norvasc 5 mg BID per outpatient records was d/c'ed due to edema- currently on Coreg 12.5 mg BID - Hold Losartan 100 mg daily due to MICHAEL and hyperkalemia - IV Hydralazine PRN Uncontrolled T1DM w/ diabetic neuropathy- hgbA1c 14.4% in 04/2017: - Suppose to be on Toujeo 100 u HS and NovoLog 30 u with meals per outpatient records - Lantus 30 u QAM and 20 u HS- adjust PRN + NovoLog 30 u with meals - BSG ACHS and ISS - Pharmacy consulted for glycemic management - stunt double consulted - Continue Gabapentin 300 mg TID Morbid obesity: - Encourage healthy diet and exercise - Epic Analyst education consultation Chronic LE ulcers and cellulitis: - Hold Levaquin- on IV Zosyn - Wound care consulted HLD: Continue Lipitor 80 mg daily Hypothyroidism: Continue Synthroid 50 mcg daily DVT prophylaxis: Heparin SQ TID Code status: LEVEL I, FULL Dispo: Discharge to home once medically stable- no discharge needs anticipated (Teresa Restrepo, PA-C) Supervising Note Dr. Cat I performed a history and physical examination on the patient. I reviewed above note and agree with it. I discussed plan with APC and patient. During my face to face encounter with the patient, I answered all of the patient's questions. (Gil Cat M.D.)
[2017-06-04 14:40] VITALS: Ht 167.6 cm; Wt 148.0 kg
[2017-06-04] MEDS ORDERED: PHARMACY GLYCEMIC MGMT CONSULT PRN (14:48)
[2017-06-04 15:18] VITALS: BP 171/106; PULSE 110; TEMP 37.9; O2SAT 92
[2017-06-04] MEDS ORDERED: INSULIN ASPART 100 UNITS/ML 3 ML PEN SQ SCH (16:15)
--- NOTE | 2017-06-04 17:27 | Nephrology Consultation ---
Nephrology Consultation Date & Providers Date of Consultation: Jun 04, 2017. Primary Care Provider: Maki Peterson M.D. Referring Provider: Reason for Consultation Evaluation management for acute kidney injury and hyperkalemia. History of Present Illness Ventura is a 36-year-old gentlemen with past medical significant for morbid obesity, Diabetes type 1 complicated with retinopathy and nephropathy hypertension and stage III CKD, chronic LE edema, ulcer and cellulitis admitted to the hospital with pneumonia and acute kidney injury. Nephrologic consult was requested for management hyperkalemia and acute kidney injury. Electronic medical records labs imaging reviewed in detail during patient's visit. Ventura presented the hospital with 2 days history of fever, cough, shortness of breath acute and congestion. On admission chest x-ray and CT chest negative for focal infiltrate but suggestive of pulmonary congestion. EKG and cardiac troponin was unremarkable. 2D echo showed normal left ventricular systolic and diastolic function, concentric LVH and normal ejection fraction without any significant valvular abnormality. Initially he received almost 3 L of IV fluid which was subsequently stopped. Was continued on Bumex 2 mg twice a day which has been his home dose. He has history of chronic bilateral lower extremity edema, ulcer and cellulitis, however he is not compliant with diuretic therapy. He has stage 3 chronic kidney disease secondary to diabetic nephropathy, baseline creatinine has been variable from 1.5-1.8. On admission creatinine was 2.7 which has been staying around and 2.8 this morning. Potassium was 5.4. Was on losartan 100 mg daily at home which was continued until yesterday, has been getting ibuprofen orally. Diabetes and hypertension both seems to be poorly-controlled. Has history of chronic anemia. He has morbid obesity and he is mostly sedentary and he is on disability due to his multiple medical problem has diabetic neuropathy and unable to drive himself. Currently he denies any shortness of breath or chest pain however reports pain in his leg, legs has been dressed however dressing is mildly soaked with serous discharge. Had 1 episode of fever earlier today, currently afebrile. Allergies Coded Allergies: Influenza Vaccines (Verified Allergy, Intermediate, UNKNOWN, 06/04/17) Lisinopril (Verified Allergy, Intermediate, COUGH, 06/04/17) Inpatient Medications Current Inpatient Medications Medications (Trade) Dose Ordered Sig/Urvashi Route Start Time Stop Time Status Last Admin Dose Admin Atorvastatin Calcium (Lipitor Tab) 80 mg DAILY PO 06/04/17 09:00 07/04/17 08:59 06/04/17 09:30 80 MG Bumetanide (Bumex Tab) 2 mg BIDM PO 06/04/17 07:30 07/04/17 07:29 06/04/17 09:31 2 MG Gabapentin (Neurontin Cap) 300 mg TID PO 06/04/17 09:00 07/04/17 08:59 06/04/17 15:05 300 MG Levothyroxine Sodium (Synthroid Tab) 50 mcg DAILYBB PO 06/04/17 06:00 07/04/17 06:59 06/04/17 06:18 50 MCG Heparin Sodium (Porcine) (Heparin Sq 5000 Unit/0.5ml) 5,000 unit Q8 SQ 06/04/17 07:15 07/04/17 07:14 06/04/17 14:44 5,000 UNIT Acetaminophen (Tylenol Tab) 650 mg Q4H PRN PO 06/04/17 03:45 07/04/17 03:44 Al Hydrox/Mg Hydrox/Simethicone (Maalox Max Susp) 15 ml Q4H PRN PO 06/04/17 03:45 07/04/17 03:44 Magnesium Hydroxide (Milk Of Magnesia Susp) 30 ml Q12H PRN PO 06/04/17 03:45 07/04/17 03:44 Ondansetron HCl (Zofran Inj) 4 mg Q6H PRN IV 06/04/17 03:45 07/04/17 03:44 Polyethylene (Miralax Powder Packet) 17 gm DAILY PRN PO 06/04/17 03:45 07/04/17 03:44 Piperacillin Sod/ Tazobactam Sod 4.5 gm/Dextrose 120 ml @ 30 mls/hr Q8H IV 06/04/17 06:00 06/11/17 05:59 06/04/17 15:05 30 MLS/HR Miscellaneous Information (Consult) 1 ea UD PRN N/A 06/04/17 03:45 07/04/17 03:44 Albuterol/ Ipratropium (Duoneb) 3 ml Q6H PRN INH 06/04/17 03:45 07/04/17 03:44 Insulin Aspart (novoLOG ASPART) SLIDING SCALE G... ACHS SC 06/04/17 07:00 07/04/17 06:59 06/04/17 11:22 7 UNITS Insulin Glargine (Lantus Solostar Pen) 20 units HS SC 06/04/17 21:00 07/04/17 20:59 Insulin Glargine (Lantus Solostar Pen) 30 units QAM SC 06/05/17 09:00 07/05/17 08:59 Hydralazine HCl (HydrALAZINE INJ) 10 mg Q6H PRN IV. 06/04/17 14:15 07/04/17 11:29 Carvedilol (Coreg Tab) 12.5 mg BID PO 06/04/17 21:00 07/04/17 20:59 Insulin Aspart (novoLOG ASPART) 30 units AC SQ 06/04/17 16:15 07/04/17 16:14 UNV Miscellaneous Information (Consult Glycemic Management Pharmacy) 1 ea UD PRN N/A 06/04/17 14:48 07/04/17 14:47 Social History Smoking Status: Never Smoker Drug Use: none Marital Status: single Housing Status: lives with family Occupation: unemployed Review of Systems A complete review of systems was performed. Pertinent positives are noted above. All other systems are negative. Physical Exam Date Time Temp Pulse Resp B/P (MAP) Pulse Ox O2 Delivery O2 Flow Rate FiO2 06/04/17 12:55 Room Air 06/04/17 10:53 37.3 99 20 202/102 (135) 93 Room Air 06/04/17 08:00 Room Air 06/04/17 07:25 36.6 88 22 168/95 (119) 91 Room Air 06/04/17 05:05 36.6 88 22 152/91 97 Room Air 06/04/17 04:58 88 18 118/70 94 06/04/17 04:00 90 20 122/69 92 Room Air 06/04/17 02:10 36.9 101 24 131/67 92 Nasal Cannula 2.0 06/04/17 01:51 105 06/04/17 01:47 106 06/04/17 01:26 108 24 143/69 96 Room Air 06/04/17 00:52 88 Room Air 06/04/17 00:42 38.3 116 28 165/101 91 Room Air 06/03/17 23:55 120 24 90 Room Air 06/03/17 23:42 120 06/03/17 23:37 39.2 119 24 191/83 93 Room Air GENERAL: Young man, AAA x 3, morbidly obese, not in any distress. HEENT: Atraumatic, normocephalic. NECK: Supple, no JVD, no carotid bruit appreciated. ENT: No sinus tenderness MOUTH and THROAT: Moist oral mucosa, no oral ulcer or pharyngeal erythema RESPIRATORY: Normal breathing efforts, no accessory muscle use, rales bilaterally CARDIOVASCULAR: S1, S2 normal, rate rhythm regular. ABDOMEN: Soft, nontender, positive bowel sound. MUSCULOSKELETAL: No joint swelling, erythema or tenderness. Normal range of motion. SKIN: No skin rash EXTREMITY: 2 to 3+ bilateral lower extremity edema with sepsis discharge, currently wrapped in dressing, dressing slightly soaked. NEURO: No gross focal neurological deficit, speech fluent. PSYCHIATRY: Normal mood and judgment Laboratory Results Last 24 Hours Test 06/03/17 23:40 06/03/17 23:58 06/04/17 04:16 06/04/17 05:36 Influenza Type A Antigen Neg for Influ A Influenza Type B Antigen Neg for Influ B White Blood Count 6.65 K/uL Red Blood Count 3.17 M/uL Hemoglobin 9.1 g/dL Hematocrit 27.1 % Mean Corpuscular Volume 85.5 fL Mean Corpuscular Hemoglobin 28.7 pg Mean Corpuscular Hemoglobin Concent 33.6 g/dl Platelet Count 167 K/uL Mean Platelet Volume 10.5 fL Neutrophils (%) (Auto) 76.5 % Lymphocytes (%) (Auto) 11.1 % Monocytes (%) (Auto) 10.4 % Eosinophils (%) (Auto) 1.4 % Basophils (%) (Auto) 0.3 % Neutrophils # (Auto) 5.09 K/uL Lymphocytes # (Auto) 0.74 K/uL Monocytes # (Auto) 0.69 K/uL Eosinophils # (Auto) 0.09 K/uL Basophils # (Auto) 0.02 K/uL RDW Standard Deviation 40.6 fL RDW Coefficient of Variation 12.9 % Immature Granulocyte % (Auto) 0.3 % Immature Granulocyte # (Auto) 0.02 K/uL Sodium Level 138 mmol/L Potassium Level 5.3 mmol/L Chloride Level 105 mmol/L Carbon Dioxide Level 24 mmol/L Anion Gap 9.0 mmol/L Blood Urea Nitrogen 46 mg/dl Creatinine 2.61 mg/dl Est Creatinine Clear Calc Drug Dose 54.9 ml/min Estimated GFR () 35.3 Estimated GFR (Non- 30.4 BUN/Creatinine Ratio 17.5 Random Glucose 281 mg/dl Calcium Level 8.5 mg/dl Lactic Acid Level 0.7 mmol/L Procalcitonin 0.75 ng/ml Prothrombin Time 10.4 SECONDS Prothromb Time International Ratio 1.0 Test 06/04/17 05:37 06/04/17 06:52 06/04/17 11:15 Hemoglobin 8.0 g/dL Sodium Level 138 mmol/L Potassium Level 5.4 mmol/L Chloride Level 107 mmol/L Carbon Dioxide Level 25 mmol/L Anion Gap 6.0 mmol/L Blood Urea Nitrogen 51 mg/dl Creatinine 2.79 mg/dl Est Creatinine Clear Calc Drug Dose 52.1 ml/min Estimated GFR () 32.5 Estimated GFR (Non- 28.1 BUN/Creatinine Ratio 18.4 Random Glucose 297 mg/dl Calcium Level 8.2 mg/dl Magnesium Level 2.3 mg/dl Total Creatine Kinase 1075 U/L Troponin I 0.021 ng/ml Bedside Glucose 330 mg/dl 420 mg/dl Impression (1) MICHAEL (acute kidney injury) (2) Hyperkalemia (3) Volume overload (4) Lymphedema (5) Anemia (6) Pneumonia (7) Hypertension (8) Diabetes Blanca is a 36-year-old gentlemen with stage 3 chronic kidney disease secondary to diabetic nephropathy with variable creatinine from 1.5-1.8, admitted to the hospital with pneumonia. Flu swab was negative and he was started empirically on vancomycin and Zosyn. Echo showed normal ejection fraction, normal left ventricular systolic and diastolic function. No history of coronary artery disease. EKG and cardiac troponin was unremarkable. He was found to have acute kidney injury p.o. creatinine on admission 1.5-0.7 which stayed stable and 2.8 this morning. Potassium remained elevated. Has been on losartan 100 a , Bumex 2 mg twice a day and ibuprofen daily. His chronic lower extremity edema , however somewhat noncompliant with his diuretics regimen. His diabetes and hypertension both seems to be poorly controlled, has type 1 diabetes since age 11, complicated by nephropathy, peripheral neuropathy and retinopathy. Losartan has been on hold since yesterday however he was continue on home on ibuprofen. Acute kidney injury most likely hemodynamically mediated in the setting combination of ARB, diuretics and NSAID. Currently seems volume overloaded, received at least 3-4 L of IV fluid. Recommendations --patient clinically seems volume overloaded, will simpson Bumex to 2 mg IV twice a day --discontinue ibuprofen avoid all NSAIDs --hold losartan considering AK and hyperkalemia --discontinue IV fluid --continue to monitor renal function closely with daily renal panel and electrolyte and magnesium and phosphate every other day. May need to accept azotemia to optimize volume status as patient has high risk for sepsis from leg cellulitis --check iron study --increase carvedilol to 25 twice a day --start on hydralazine 50 mg t.i.d., keep off of amlodipine Thank you for allowing me to participate in your patient's care. It was a pleasure to see Ventura
[2017-06-04] MEDS ORDERED: INSULIN IV INFUSION PROTOCOL STA (18:39)
[2017-06-04] MEDS ORDERED: SEVERE STRESS LEVEL ONE (18:45)
[2017-06-04] MEDS ORDERED: INSULIN PROTOCOL GOAL RANGE ONE (18:45)
[2017-06-04] MEDS ORDERED: INSULIN HUMAN REGULAR BOLUS IV SCH (19:00)
[2017-06-04] MEDS ORDERED: INSULIN REGULAR 250 UNITS in SODIUM CHLORIDE 0.9% 250ML 250 ML IV SCH (19:00)
--- NOTE | 2017-06-04 19:13 | Pharmacy Progress Note ---
Glycemic Control Intl Consult Date of Service Jun 04, 2017. Scope Glycemic Pharmacist consulted by PASCALE Kerr on 06/04/17 for glycemic control and to write orders per [facility] inpatient glycemic control protocol Objective Weight (Kilograms): 153.600 Accuchecks BSG (last 24hrs): Test 06/03/17 23:58 06/04/17 05:37 06/04/17 06:52 06/04/17 11:15 Random Glucose 281 mg/dl (70-99) 297 mg/dl (70-99) Bedside Glucose 330 mg/dl (70-99) 420 mg/dl (70-99) Test 06/04/17 16:03 Bedside Glucose 399 mg/dl (70-99) Laboratory Data (last 24hrs) Test 06/03/17 23:58 06/04/17 05:37 Anion Gap 9.0 mmol/L 6.0 mmol/L BUN/Creatinine Ratio 17.5 18.4 Blood Urea Nitrogen 46 mg/dl 51 mg/dl Creatinine 2.61 mg/dl 2.79 mg/dl Potassium Level 5.3 mmol/L 5.4 mmol/L Sodium Level 138 mmol/L 138 mmol/L White Blood Count 6.65 K/uL Red Blood Count 3.17 M/uL Hemoglobin 9.1 g/dL Hematocrit 27.1 % Mean Corpuscular Volume 85.5 fL Mean Corpuscular Hemoglobin 28.7 pg Mean Corpuscular Hemoglobin Concent 33.6 g/dl Platelet Count 167 K/uL Mean Platelet Volume 10.5 fL Neutrophils (%) (Auto) 76.5 % Lymphocytes (%) (Auto) 11.1 % Monocytes (%) (Auto) 10.4 % Eosinophils (%) (Auto) 1.4 % Basophils (%) (Auto) 0.3 % Neutrophils # (Auto) 5.09 K/uL Lymphocytes # (Auto) 0.74 K/uL Monocytes # (Auto) 0.69 K/uL Eosinophils # (Auto) 0.09 K/uL Basophils # (Auto) 0.02 K/uL Recent Pertinent Medications Outpatient Anti-diabetic Regimen: * As per CDE note: * Toujeo 60-80 units qHS * Novolog 40 units with meals * A1c = 14.4 % 04/2017 The patient is currently receiving: * Basal insulin: Lantus 30 units x 1 * Correctional Insulin: Novolog Correction per scale ACHS Goal Range: Low 120 mg/dL - High 160 mg/dL Correction Factor: 40 mg/dL/unit * Prandial insulin: None Risk Factors for Insulin Resistance: * Infection * Diet Assessment & Plan ASSESSMENT: * 36 y/o male admitted with SOB, fever * History of type 1 diabetes since the age of 9 on Toujeo and Novolog at home. Per CDE note, does not SMBG very much * BSGs currently ~400 mg/dL and has only received 30 units of basal so far today * Will plan to give additional dose of basal to total 60 units for today and start an insulin drip (I confirmed this w/ Dr. Stephania cates) to quickly improve BSGs until more SQ insulin on board PLAN FOR INPATIENT GLYCEMIC CONTROL: * Starting IV insulin infusion per severe stress protocol, can hopefully transition off tomorrow once BSGs improve * Goal Range 140 - 180 mg/dl * Basal insulin with LANTUS 30 units SQ BID - give additional 30 units today for total of 60 units * Please note that the plan above was derived based on current level of insulin resistance and hospital stress. These recommendations are appropriate for inpatient admission only. Plan of care upon discharge will need to be reassessed to avoid potential outpatient hypo/hyperglycemia. Thank you.
[2017-06-04 19:30] VITALS: BP 118/64; PULSE 92; TEMP 37.3; O2SAT 94
[2017-06-04] MEDS: PROSOURCE NOCARB 30ML/PKT PO SCH (19:30)
[2017-06-04] MEDS: BUMETANIDE IV 2 MG in SYRINGE 0 ML IV SCH (19:31)
[2017-06-04] MEDS: CARVEDILOL 12.5 MG TAB PO SCH (19:58)
[2017-06-04] MEDS ORDERED: CARVEDILOL 12.5 MG TAB PO SCH (21:00)
[2017-06-04] MEDS ORDERED: INSULIN GLARGINE SOLOSTAR 100 UNITS/ML 3 ML PEN SC SCH (21:00)
[2017-06-04] MEDS ORDERED: INSULIN ASPART 100 UNITS/ML 3 ML PEN SC SCH (21:00)
[2017-06-04 23:21] VITALS: BP 169/91; PULSE 100; TEMP 38.8; O2SAT 90
[2017-06-05] VITALS (7 sets, daily range): BP systolic 105–169; BP diastolic 60–92; PULSE 74–100; TEMP 36.8–38; O2SAT 85–96
[2017-06-05] MEDS: PIPERACILL/TAZOBAC IV 4.5 GM in DEXTROSE 5% 100ML 100 ML IV SCH ×3 (05:22→21:21)
[2017-06-05] MEDS: LEVOTHYROXINE 50 MCG TAB PO SCH (05:22)
[2017-06-05] MEDS: HEPARIN SOD 5000 UNIT/0.5 ML CARP SQ SCH ×3 (05:23→21:25)
[2017-06-05 07:44] LABS: CALCIUM 8.5 mg/dl (8.5-10.1); CREATININE 3.31 mg/dl (0.60-1.40); PHOSPHORUS 4.2 mg/dl (2.5-4.9); POTASSIUM 4.2 mmol/L (3.5-5.1)
[2017-06-05] MEDS: BUMETANIDE IV 2 MG in SYRINGE 0 ML IV SCH ×2 (08:36→16:54)
[2017-06-05] MEDS: CARVEDILOL 12.5 MG TAB PO SCH ×2 (08:36→21:19)
[2017-06-05] MEDS: ATORVASTATIN 40 MG TAB PO SCH (08:37)
[2017-06-05] MEDS: PROSOURCE NOCARB 30ML/PKT PO SCH ×3 (08:37→21:15)
[2017-06-05] MEDS: GABAPENTIN 300 MG CAP PO SCH ×3 (08:39→21:19)
[2017-06-05] MEDS: INSULIN ASPART 100 UNITS/ML 3 ML PEN SC SCH ×4 (08:42→21:17)
[2017-06-05] MEDS: INSULIN GLARGINE SOLOSTAR 100 UNITS/ML 3 ML PEN SC SCH ×2 (08:43→21:18)
[2017-06-05] MEDS ORDERED: DC IV INSULIN INFUSION ONE (08:45)
[2017-06-05] MEDS ORDERED: INSULIN GLARGINE SOLOSTAR 100 UNITS/ML 3 ML PEN SC SCH (09:00)
--- NOTE | 2017-06-05 09:47 | Pharmacy Progress Note ---
Glycemic Control Progress Note Date of Service Jun 05, 2017. Scope Glycemic Pharmacist consulted for glycemic control to write orders per [facility] inpatient glycemic control protocol. Objective Accuchecks BSG (last 24hrs): Test 06/04/17 11:15 06/04/17 16:03 06/04/17 20:34 06/04/17 21:58 Bedside Glucose 420 mg/dl (70-99) 399 mg/dl (70-99) 204 mg/dl (70-99) 165 mg/dl (70-99) Test 06/04/17 22:59 06/05/17 00:04 06/05/17 01:04 06/05/17 02:05 Bedside Glucose 137 mg/dl (70-99) 134 mg/dl (70-99) 112 mg/dl (70-99) 105 mg/dl (70-99) Test 06/05/17 02:30 06/05/17 03:06 06/05/17 04:09 06/05/17 05:12 Bedside Glucose 99 mg/dl (70-99) 97 mg/dl (70-99) 107 mg/dl (70-99) 108 mg/dl (70-99) Test 06/05/17 06:09 06/05/17 06:42 06/05/17 07:01 06/05/17 08:20 Bedside Glucose 111 mg/dl (70-99) 117 mg/dl (70-99) 198 mg/dl (70-99) Random Glucose 103 mg/dl (70-99) Test 06/05/17 09:15 Bedside Glucose 201 mg/dl (70-99) Outpatient Anti-Diabetic Meds * As per CDE note: * Toujeo 60-80 units qHS * Novolog 40 units with meals * A1c = 14.4 % 04/2017 Assessment & Plan ASSESSMENT: * See progress note from 06/04/17 for more background info, in short: * Pt receiving SQ basal bolus insulin regimen for hyperglycemia secondary to baseline DM (outpatient regimen on hold) and stress/infection * Patient is currently on IV insulin infusion for severe hyperglycemia at the time of admission. SQ basal insulin was also initiated yesterday to assist in transition off insulin infusion. Infusion was held for 5-6 hours overnight for BSG at/below goal. * Patient received 60 units of basal insulin * IV infusion rate ranged from 1.1 unit/hr to 3.4 units/hr * Changes needed to insulin regimen: * BSGs at goal, am labs WNL. Will transition off insulin infusion. * AM Fasting BSG = 117 mg/dl. This is at goal for patient based on inpatient targets and co-morbidities. Continue current dose of basal insulin. * Post-prandial BSGs are improving. Will change to bolus coverage per patients home CF/CR. PLAN FOR INPATIENT GLYCEMIC CONTROL: * Continue IV insulin infusion per protocol * d/c insulin infusion once held per calculator * Basal insulin * Lantus 30 units SQ BID * Bolus insulin * NovoLog per scale ACHS or Q6hrs while NPO * Goal Range: Low 110 mg/dL - High 140 mg/dL * Correction Factor: 10 mg/dL/unit * Nutritional / Prandial insulin per carb ratio of 1 unit per 3 grams CHO consumed * Please note that the plan above was derived based on current level of insulin resistance and hospital stress. These recommendations are appropriate for inpatient admission only. Plan of care upon discharge will need to be reassessed to avoid potential outpatient hypo/hyperglycemia. Thank you.
[2017-06-05 10:55] LABS: HEMATOCRIT 23.5 % (42-52); HEMOGLOBIN 7.9 g/dL (14.0-18.0); MEAN CELL VOLUME 84.5 fL (80-100); MEAN CORPUSCULAR HEMOGLOBIN 28.4 pg (25-34); MEAN CORPUSCULAR HGB CONC 33.6 g/dl (32-36); MEAN PLATELET VOLUME 9.9 fL (7.4-10.4); PLATELET COUNT 189 K/uL (130-400); RED CELL DISTRIBUTION WIDTH SD 40.1 fL (36.4-46.3); WHITE BLOOD COUNT 6.28 K/uL (4.8-10.8)
--- NOTE | 2017-06-05 12:04 | Nephrology Progress Note ---
Nephrology Progress Note Date of Service Jun 05, 2017. Chief Complaint Follow-up for acute kidney injury and hyperkalemia. Subjective Ventura ocasio and examined in his room this am. Overall feeling better today , no SOB, fever, chills. UO decent net negative >1 L, Cr worsened to 3.1. BP acceptable. Review of Systems A complete review of systems was performed. Pertinent positives are noted above. All other systems are negative. Vital Signs Last 8 Hrs Date Time Temp Pulse Resp B/P (MAP) Pulse Ox O2 Delivery O2 Flow Rate FiO2 06/05/17 07:04 37.2 95 20 169/91 (117) 96 Nasal Cannula 2.0 06/05/17 03:18 93 Nasal Cannula 2.0 06/05/17 03:15 Nasal Cannula 2.0 06/05/17 03:10 38.0 100 21 164/92 (116) 85 Room Air Last Recorded Weight Weight (Kilograms): 153.600 Physical Exam GENERAL: Young male, AAA x 3, pleasant, morbidly obese not in any distress. NECK: Supple, no JVD. RESPIRATORY: Normal breathing efforts, no accessory muscle use, clear to auscultation bilaterally, no wheezes or rales. CARDIOVASCULAR: S1, S2 normal, rate rhythm regular. EXTREMITY: 2 to 3+ bilateral lower extremity edema, with dressing highly soaked with serous discharge NEURO: speech fluent. PSYCHIATRY: Normal mood and judgment Social History Smoking Status: Never smoker Drug Use: none Marital Status: single Housing Status: lives with family Occupation: unemployed Laboratory Results Past 24 Hours 06/05/17 06:42 Test 06/04/17 11:15 06/04/17 16:03 06/04/17 20:34 06/04/17 21:58 Bedside Glucose 420 mg/dl (70-99) 399 mg/dl (70-99) 204 mg/dl (70-99) 165 mg/dl (70-99) Test 06/04/17 22:59 06/05/17 00:04 06/05/17 01:04 06/05/17 02:05 Bedside Glucose 137 mg/dl (70-99) 134 mg/dl (70-99) 112 mg/dl (70-99) 105 mg/dl (70-99) Test 06/05/17 02:30 06/05/17 03:06 06/05/17 04:09 06/05/17 05:12 Bedside Glucose 99 mg/dl (70-99) 97 mg/dl (70-99) 107 mg/dl (70-99) 108 mg/dl (70-99) Test 06/05/17 06:09 06/05/17 06:42 06/05/17 07:01 06/05/17 08:09 Bedside Glucose 111 mg/dl (70-99) 117 mg/dl (70-99) Anion Gap 10.0 mmol/L (3-11) Est Creatinine Clear Calc Drug Dose 43.9 ml/min Estimated GFR () 26.5 Estimated GFR (Non- 22.8 BUN/Creatinine Ratio 15.6 (10-20) Calcium Level 8.5 mg/dl (8.5-10.1) Phosphorus Level 4.2 mg/dl (2.5-4.9) Magnesium Level 2.5 mg/dl (1.8-2.4) Transferrin % Saturation % (20-50) Test 06/05/17 08:20 Bedside Glucose 198 mg/dl (70-99) Allergies Coded Allergies: Influenza Vaccines (Verified Allergy, Intermediate, UNKNOWN, 06/04/17) Lisinopril (Verified Allergy, Intermediate, COUGH, 06/04/17) Medications Current Inpatient Medications Medications (Trade) Dose Ordered Sig/Urvashi Route Start Time Stop Time Status Last Admin Dose Admin Atorvastatin Calcium (Lipitor Tab) 80 mg DAILY PO 06/04/17 09:00 07/04/17 08:59 06/05/17 08:37 80 MG Gabapentin (Neurontin Cap) 300 mg TID PO 06/04/17 09:00 07/04/17 08:59 06/05/17 08:39 300 MG Levothyroxine Sodium (Synthroid Tab) 50 mcg DAILYBB PO 06/04/17 06:00 07/04/17 06:59 06/05/17 05:22 50 MCG Heparin Sodium (Porcine) (Heparin Sq 5000 Unit/0.5ml) 5,000 unit Q8 SQ 06/04/17 07:15 07/04/17 07:14 06/05/17 05:23 5,000 UNIT Acetaminophen (Tylenol Tab) 650 mg Q4H PRN PO 06/04/17 03:45 07/04/17 03:44 06/04/17 23:30 650 MG Al Hydrox/Mg Hydrox/Simethicone (Maalox Max Susp) 15 ml Q4H PRN PO 06/04/17 03:45 07/04/17 03:44 Ondansetron HCl (Zofran Inj) 4 mg Q6H PRN IV 06/04/17 03:45 07/04/17 03:44 Polyethylene (Miralax Powder Packet) 17 gm DAILY PRN PO 06/04/17 03:45 07/04/17 03:44 Piperacillin Sod/ Tazobactam Sod 4.5 gm/Dextrose 120 ml @ 30 mls/hr Q8H IV 06/04/17 06:00 06/11/17 05:59 06/05/17 05:22 30 MLS/HR Miscellaneous Information (Consult) 1 UD PRN N/A 06/04/17 03:45 07/04/17 03:44 Albuterol/ Ipratropium (Duoneb) 3 ml Q6H PRN INH 06/04/17 03:45 07/04/17 03:44 Hydralazine HCl (HydrALAZINE INJ) 10 mg Q6H PRN IV. 06/04/17 14:15 07/04/17 11:29 Miscellaneous Information (Consult Glycemic Management Pharmacy) 1 UD PRN N/A 06/04/17 14:48 07/04/17 14:47 Enteral Nutritional Formula (Prosource No Carb) 30 ml TID PO 06/04/17 21:00 07/04/17 20:59 06/05/17 08:37 30 ML Bumetanide 2 mg/ Syringe 8 ml @ 4 mls/min DAILY@09,17 IV 06/04/17 18:00 07/04/17 17:59 06/05/17 08:36 4 MLS/MIN Carvedilol (Coreg Tab) 25 mg BID PO 06/04/17 21:00 07/04/17 20:59 06/05/17 08:36 25 MG Hydralazine HCl (Apresoline Tab) 50 mg TID PO 06/04/17 21:00 07/04/17 20:59 06/05/17 08:37 50 MG Insulin Human Regular 250 units/ Sodium Chloride 252.5 ml @ 0 mls/hr Q24H IV 06/04/17 19:00 06/05/17 14:45 06/04/17 19:45 5.7 MLS/HR Insulin Glargine (Lantus Solostar Pen) 30 units BID SC 06/05/17 09:00 07/05/17 08:59 06/05/17 08:43 30 UNITS Insulin Aspart (novoLOG ASPART) SLIDING SCALE G... ACHS SC 06/05/17 08:30 07/05/17 08:29 06/05/17 08:42 24 UNITS Impression (1) MICHAEL (acute kidney injury) (2) Hyperkalemia (3) Volume overload (4) Lymphedema (5) Anemia (6) Pneumonia (7) Hypertension (8) Diabetes Blanca is a 36-year-old gentlemen with stage 3 chronic kidney disease secondary to diabetic nephropathy with variable creatinine from 1.5-1.8, admitted to the hospital with pneumonia. Flu swab was negative and he was started empirically on vancomycin and Zosyn. Echo showed normal ejection fraction, normal left ventricular systolic and diastolic function. No history of coronary artery disease. EKG and cardiac troponin was unremarkable. He was found to have acute kidney injury p.o. creatinine on admission 1.5-0.7 which stayed stable and 2.8 this morning. Potassium remained elevated. Has been on losartan 100 a , Bumex 2 mg twice a day and ibuprofen daily. His chronic lower extremity edema , however somewhat noncompliant with his diuretics regimen. His diabetes and hypertension both seems to be poorly controlled, has type 1 diabetes since age 11, complicated by nephropathy, peripheral neuropathy and retinopathy. Losartan has been on hold since yesterday however he was continue on home on ibuprofen. Acute kidney injury most likely hemodynamically mediated in the setting combination of ARB, diuretics and NSAID. Currently seems volume overloaded, received at least 3-4 L of IV fluid. Recommendations --Continue on Bumex to 2 mg IV twice a day, monitor renal function closely with daily renal panel and electrolyte and magnesium and phosphate every other day. May need to accept azotemia to optimize volume status as patient has high risk for sepsis from leg cellulitis --discontinue ibuprofen avoid all NSAIDs --avoid IV fluid --on carvedilol to 25 twice a day and hydralazine 50 mg t.i.d., keep off of amlodipine --[place] [id number] x 1 dose Will follow
--- NOTE | 2017-06-05 12:43 | Hospitalist Progress Note ---
Hospitalist Progress Note Date of Service Jun 05, 2017. (Teresa Restrepo ., ELINC) Subjective Pt evaluation today including: conversation w/ patient, physical exam, lab review, review of inpatient medication list Voiding: no voiding problems Patient sitting up in bed. Feels significantly improved since admission. Eating and drinking OK. Breathing feels improved. On RA. Urinating without issue. +non-productive cough. Patient denies any fever, chills, sweats, lightheadedness, dizziness, vision changes, CP, palpitations, edema, SOB, wheezing, abdominal pain, nausea, vomiting, diarrhea, urinary symptoms, melena, numbness/tingling, weakness, muscle/joint pain, anxiety/depression, active bleeding, or new skin discoloration/changes. Spoke w/ RN. No acute events. (Teresa Restrepo ., KALA-C) Medications Current Inpatient Medications Medications (Trade) Dose Ordered Sig/Uravshi Route Start Time Stop Time Status Last Admin Dose Admin Atorvastatin Calcium (Lipitor Tab) 80 mg DAILY PO 06/04/17 09:00 07/04/17 08:59 06/05/17 08:37 80 MG Gabapentin (Neurontin Cap) 300 mg TID PO 06/04/17 09:00 07/04/17 08:59 06/05/17 08:39 300 MG Levothyroxine Sodium (Synthroid Tab) 50 mcg DAILYBB PO 06/04/17 06:00 07/04/17 06:59 06/05/17 05:22 50 MCG Heparin Sodium (Porcine) (Heparin Sq 5000 Unit/0.5ml) 5,000 unit Q8 SQ 06/04/17 07:15 07/04/17 07:14 06/05/17 05:23 5,000 UNIT Acetaminophen (Tylenol Tab) 650 mg Q4H PRN PO 06/04/17 03:45 07/04/17 03:44 06/04/17 23:30 650 MG Al Hydrox/Mg Hydrox/Simethicone (Maalox Max Susp) 15 ml Q4H PRN PO 06/04/17 03:45 07/04/17 03:44 Ondansetron HCl (Zofran Inj) 4 mg Q6H PRN IV 06/04/17 03:45 07/04/17 03:44 Polyethylene (Miralax Powder Packet) 17 gm DAILY PRN PO 06/04/17 03:45 07/04/17 03:44 Piperacillin Sod/ Tazobactam Sod 4.5 gm/Dextrose 120 ml @ 30 mls/hr Q8H IV 06/04/17 06:00 06/11/17 05:59 06/05/17 05:22 30 MLS/HR Miscellaneous Information (Consult) 1 UD PRN N/A 06/04/17 03:45 07/04/17 03:44 Albuterol/ Ipratropium (Duoneb) 3 ml Q6H PRN INH 06/04/17 03:45 07/04/17 03:44 Hydralazine HCl (HydrALAZINE INJ) 10 mg Q6H PRN IV. 06/04/17 14:15 07/04/17 11:29 Miscellaneous Information (Consult Glycemic Management Pharmacy) 1 [facility] PRN N/A 06/04/17 14:48 07/04/17 14:47 Enteral Nutritional Formula (Prosource No Carb) 30 ml TID PO 06/04/17 21:00 07/04/17 20:59 06/05/17 08:37 30 ML Bumetanide 2 mg/ Syringe 8 ml @ 4 mls/min DAILY@09,17 IV 06/04/17 18:00 07/04/17 17:59 06/05/17 08:36 4 MLS/MIN Carvedilol (Coreg Tab) 25 mg BID PO 06/04/17 21:00 07/04/17 20:59 06/05/17 08:36 25 MG Hydralazine HCl (Apresoline Tab) 50 mg TID PO 06/04/17 21:00 07/04/17 20:59 06/05/17 08:37 50 MG Insulin Human Regular 250 units/ Sodium Chloride 252.5 ml @ 0 mls/hr Q24H IV 06/04/17 19:00 06/05/17 14:45 06/04/17 19:45 5.7 MLS/HR Insulin Glargine (Lantus Solostar Pen) 30 units BID SC 06/05/17 09:00 07/05/17 08:59 06/05/17 08:43 30 UNITS Insulin Aspart (novoLOG ASPART) SLIDING SCALE G... ACHS SC 06/05/17 08:30 07/05/17 08:29 06/05/17 08:42 24 UNITS Iron Sucrose 200 mg/Sodium Chloride 110 ml @ 420 mls/hr TODAY IV 06/05/17 12:00 06/05/17 12:16 UNV Epoetin Eloy (Procrit Inj) 20,000 units ONE SQ 06/05/17 12:00 07/05/17 11:59 UNV (Teresa Restrepo PA-C) Objective Vital Signs Date Time Temp Pulse Resp B/P (MAP) Pulse Ox O2 Delivery O2 Flow Rate FiO2 06/05/17 12:00 Room Air 06/05/17 10:32 36.8 96 20 147/78 (101) 94 Room Air 06/05/17 08:00 Room Air 06/05/17 07:04 37.2 95 20 169/91 (117) 96 Nasal Cannula 2.0 06/05/17 03:18 93 Nasal Cannula 2.0 06/05/17 03:15 Nasal Cannula 2.0 06/05/17 03:10 38.0 100 21 164/92 (116) 85 Room Air 06/04/17 23:30 Room Air 06/04/17 23:21 38.8 100 23 169/91 (117) 90 Room Air 06/04/17 19:30 Room Air 06/04/17 19:30 37.3 92 22 118/64 (82) 94 Room Air 06/04/17 16:00 Room Air 06/04/17 15:18 37.9 110 20 171/106 (127) 92 Room Air 06/04/17 12:55 Room Air (Teresa Restrepo PA-C) Physical Exam General Appearance: no apparent distress, + obese Eyes: normal inspection, PERRL ENT: hearing grossly normal Neck: supple Respiratory/Chest: lungs clear, no respiratory distress, no accessory muscle use Cardiovascular: regular rate, rhythm Abdomen: normal bowel sounds, non tender, soft Extremities: + pedal edema, + pertinent finding (bilateral legs in dressing- soaked with serous drainage ) Neurologic/Psychiatric: alert, normal mood/affect, oriented x 3 Skin: normal color, warm/dry, no rash (Teresa Restrepo PA-C) Laboratory Results Last 24 Hours Test 06/04/17 16:03 06/04/17 20:34 06/04/17 21:58 06/04/17 22:59 Bedside Glucose 399 mg/dl 204 mg/dl 165 mg/dl 137 mg/dl Test 06/05/17 00:04 06/05/17 01:04 06/05/17 02:05 06/05/17 02:30 Bedside Glucose 134 mg/dl 112 mg/dl 105 mg/dl 99 mg/dl Test 06/05/17 03:06 06/05/17 04:09 06/05/17 05:12 06/05/17 06:09 Bedside Glucose 97 mg/dl 107 mg/dl 108 mg/dl 111 mg/dl Test 06/05/17 06:42 06/05/17 07:01 06/05/17 08:20 06/05/17 09:15 Sodium Level 135 mmol/L Potassium Level 4.2 mmol/L Chloride Level 104 mmol/L Carbon Dioxide Level 21 mmol/L Anion Gap 10.0 mmol/L Blood Urea Nitrogen 52 mg/dl Creatinine 3.31 mg/dl Est Creatinine Clear Calc Drug Dose 43.9 ml/min Estimated GFR () 26.5 Estimated GFR (Non- 22.8 BUN/Creatinine Ratio 15.6 Random Glucose 103 mg/dl Calcium Level 8.5 mg/dl Phosphorus Level 4.2 mg/dl Magnesium Level 2.5 mg/dl Iron Level 34 mcg/dl Total Iron Binding Capacity 158 mcg/dl Transferrin 122 mg/dl Transferrin % Saturation 20 % Ferritin 452.8 ng/ml Bedside Glucose 117 mg/dl 198 mg/dl 201 mg/dl Test 06/05/17 10:29 06/05/17 10:45 06/05/17 11:48 Bedside Glucose 151 mg/dl 158 mg/dl White Blood Count 6.28 K/uL Red Blood Count 2.78 M/uL Hemoglobin 7.9 g/dL Hematocrit 23.5 % Mean Corpuscular Volume 84.5 fL Mean Corpuscular Hemoglobin 28.4 pg Mean Corpuscular Hemoglobin Concent 33.6 g/dl RDW Standard Deviation 40.1 fL RDW Coefficient of Variation 13.0 % Platelet Count 189 K/uL Mean Platelet Volume 9.9 fL (Teresa Restrepo, ELINC) Assessment and Plan 36 y/o m Hx HTN, CKD III, T1DM, morbid obesity, chronic anemia, chronic LE edema , chronic ulcers and cellulitis. Presents with acute onset of cough, fever and SOB. Pt describes a productive cough and a high fever over the past day. He denies CP, N/V, diarrhea or dysuria. Initial labs are notable for worsening renal function and mild hyperkalemia. The pt was marginally hypoxic while in the ER. A fever of 38.3 was confirmed on arrival. Due to his habitus a CXR was equivocal. He was subjected to a CT chest therefore which suggested CHF/ pulmonary edema but could not r/o a superimposed infectious process. To complicate matters, at the time when the CT was obtained, he had already received 2-3 liters of fluid. The pt is prescribed Bumex for LE edema, although he states he has not complied with this medication. He denies a history of CHF. SOB and fever, ?infectious process vs viral illness: - Admitted to tele for cardiac monitoring- no acute events - O2 protocol, wean as tolerated- currently on RA - On prolonged course of Levaquin for LE ulcer prior to admission- held and started on IV Zosyn - Procalcitonin 0.75 - Influenza negative, BCx NGTD, sputum cultures pending, UA pending - DuoNebs QID PRN - Spiking fevers overnight- Tylenol PRN for fever/pain MICHAEL on CKD stage III, chronic anemia- follows w/ Dr. Miranda: - Bumex IV 2 mg BID - UA pending - Hold nephrotoxic agents and renally dose medications as appropriate - Iron panel reviewed- IV Venofer 200 mg + IV Epoetin 03861 mg x1 today per nephrology - Follow PRP and CBC -- analytics analyst 3.1 today -- hgb 7.9 today - Nephrology consulted, appreciate recommendations ?Acute CHF exacerbation: - Bumex as above - Monitor I&Os and daily weights - ECHO- normal EF and diastolic function, LVH - Cardiology consulted, appreciate recommendations Hyperkalemia, secondary to MICHAEL- RESOLVED: - Monitor on tele - EKG w/out changes - Losartan held - MICHAEL treatment as above HTN: - Coreg 12.5 mg BID increased to 25 mg BID and Hydralazine 50 mg TID added by nephrology for better BP control - Hold Losartan 100 mg daily due to MICHALE - IV Hydralazine PRN Uncontrolled T1DM w/ diabetic neuropathy- hgbA1c 14.4% in 04/2017: - Suppose to be on Toujeo 100 u HS and NovoLog 30 u with meals per outpatient records - Pharmacy consulted for glycemic management - para educator consulted - Continue Gabapentin 300 mg TID Morbid obesity: - Encourage healthy diet and exercise - Brine Tank Operator education consultation Chronic LE ulcers and cellulitis- Klebsiella, MSSA, and Enterobacter- follows w / Dr. Mcwilliams: - Hold Levaquin- on IV Zosyn - Wound care consulted HLD: Continue Lipitor 80 mg daily Hypothyroidism: Continue Synthroid 50 mcg daily DVT prophylaxis: Heparin SQ TID Code status: LEVEL I, FULL Dispo: Discharge uncertain- PT/OT and CM consulted (Teresa Restrepo, PA-C) Supervising Note Dr. Cat I performed a history and physical examination on the patient. I reviewed above note and agree with it. I discussed plan with APC and patient. During my face to face encounter with the patient, I answered all of the patient's questions. (Gil Cat M.D.)
[2017-06-05] MEDS ORDERED: EPOETIN ALFA 20,000 UNITS/ML VIAL SQ ONE (13:00)
[2017-06-05] MEDS: IRON SUCROSE INJ 200 MG in SODIUM CHLORIDE 0.9% 100ML 100 ML IV SCH (14:04)
[2017-06-06] VITALS (8 sets, daily range): BP systolic 131–167; BP diastolic 74–88; PULSE 80–87; TEMP 36.7–36.9; O2SAT 94–98
[2017-06-06] MEDS: HEPARIN SOD 5000 UNIT/0.5 ML CARP SQ SCH ×3 (06:07→22:00)
[2017-06-06] MEDS: PIPERACILL/TAZOBAC IV 4.5 GM in DEXTROSE 5% 100ML 100 ML IV SCH ×3 (06:08→21:55)
[2017-06-06] MEDS: LEVOTHYROXINE 50 MCG TAB PO SCH (06:08)
[2017-06-06 06:59] LABS: CALCIUM 8.1 mg/dl (8.5-10.1); CREATININE 3.78 mg/dl (0.60-1.40)
[2017-06-06] MEDS: INSULIN ASPART 100 UNITS/ML 3 ML PEN SC SCH ×4 (07:31→20:10)
[2017-06-06] MEDS: INSULIN GLARGINE SOLOSTAR 100 UNITS/ML 3 ML PEN SC SCH ×2 (07:32→20:10)
[2017-06-06] MEDS: CARVEDILOL 12.5 MG TAB PO SCH ×2 (08:21→19:55)
[2017-06-06] MEDS: ATORVASTATIN 40 MG TAB PO SCH (08:21)
[2017-06-06] MEDS: PROSOURCE NOCARB 30ML/PKT PO SCH ×3 (08:22→19:55)
[2017-06-06] MEDS: GABAPENTIN 300 MG CAP PO SCH ×3 (08:22→19:55)
[2017-06-06] MEDS ORDERED: INSULIN GLARGINE SOLOSTAR 100 UNITS/ML 3 ML PEN SC SCH (09:00)
--- NOTE | 2017-06-06 12:09 | Nephrology Progress Note ---
Nephrology Progress Note Date of Service Jun 06, 2017. Chief Complaint Follow-up for acute kidney injury and hyperkalemia. Subjective Ventura was seen and examined in his room this am. Overall feeling better today , no SOB, fever, chills. UO decent net negative >1 L, Cr worsened to 3.8. BP acceptable Review of Systems A complete review of systems was performed. Pertinent positives are noted above. All other systems are negative. Vital Signs Last 8 Hrs Date Time Temp Pulse Resp B/P (MAP) Pulse Ox O2 Delivery O2 Flow Rate FiO2 06/06/17 08:00 Room Air 06/06/17 07:18 36.9 82 20 158/88 (111) 94 Room Air 06/06/17 04:00 Room Air 06/06/17 03:15 36.8 81 23 131/79 (96) 95 Room Air Last Recorded Weight Weight (Kilograms): 152.000 Physical Exam GENERAL: young male, AAA x 3, pleasant, morbidly obese, not in any distress. NECK: Supple, no JVD. RESPIRATORY: Normal breathing efforts, no accessory muscle use, clear to auscultation bilaterally, no wheezes or rales. CARDIOVASCULAR: S1, S2 normal, rate rhythm regular. EXTREMITY: 3 + lower extremity edema with chronic lower extremity ulcer NEURO: speech fluent. PSYCHIATRY: Normal mood and judgment Social History Smoking Status: Never smoker Drug Use: none Marital Status: single Housing Status: lives with family Occupation: unemployed Laboratory Results Past 24 Hours 06/05/17 10:45 06/06/17 05:25 Test 06/05/17 09:15 06/05/17 10:29 06/05/17 10:45 06/05/17 11:48 Bedside Glucose 201 mg/dl (70-99) 151 mg/dl (70-99) 158 mg/dl (70-99) Red Blood Count 2.78 M/uL (4.7-6.1) Mean Corpuscular Volume 84.5 fL (80-100) Mean Corpuscular Hemoglobin 28.4 pg (25-34) Mean Corpuscular Hemoglobin Concent 33.6 g/dl (32-36) RDW Standard Deviation 40.1 fL (36.4-46.3) RDW Coefficient of Variation 13.0 % (11.5-14.5) Mean Platelet Volume 9.9 fL (7.4-10.4) Test 06/05/17 12:44 06/05/17 13:26 06/05/17 16:36 06/05/17 20:41 Bedside Glucose 106 mg/dl (70-99) 82 mg/dl (70-99) 77 mg/dl (70-99) 188 mg/dl (70-99) Test 06/06/17 05:25 06/06/17 06:45 Anion Gap 10.0 mmol/L (3-11) Est Creatinine Clear Calc Drug Dose 38.2 ml/min Estimated GFR () 22.5 Estimated GFR (Non- 19.5 BUN/Creatinine Ratio 15.6 (10-20) Calcium Level 8.1 mg/dl (8.5-10.1) Bedside Glucose 140 mg/dl (70-99) Allergies Coded Allergies: Influenza Vaccines (Verified Allergy, Intermediate, UNKNOWN, 06/04/17) Lisinopril (Verified Allergy, Intermediate, COUGH, 06/04/17) Medications Current Inpatient Medications Medications (Trade) Dose Ordered Sig/Urvashi Route Start Time Stop Time Status Last Admin Dose Admin Atorvastatin Calcium (Lipitor Tab) 80 mg DAILY PO 06/04/17 09:00 07/04/17 08:59 06/06/17 08:21 80 MG Gabapentin (Neurontin Cap) 300 mg TID PO 06/04/17 09:00 07/04/17 08:59 06/06/17 08:22 300 MG Levothyroxine Sodium (Synthroid Tab) 50 mcg DAILYBB PO 06/04/17 06:00 07/04/17 06:59 06/06/17 06:08 50 MCG Heparin Sodium (Porcine) (Heparin Sq 5000 Unit/0.5ml) 5,000 unit Q8 SQ 06/04/17 07:15 07/04/17 07:14 06/06/17 06:07 5,000 UNIT Acetaminophen (Tylenol Tab) 650 mg Q4H PRN PO 06/04/17 03:45 07/04/17 03:44 06/04/17 23:30 650 MG Al Hydrox/Mg Hydrox/Simethicone (Maalox Max Susp) 15 ml Q4H PRN PO 06/04/17 03:45 07/04/17 03:44 Ondansetron HCl (Zofran Inj) 4 mg Q6H PRN IV 06/04/17 03:45 07/04/17 03:44 Polyethylene (Miralax Powder Packet) 17 gm DAILY PRN PO 06/04/17 03:45 07/04/17 03:44 Piperacillin Sod/ Tazobactam Sod 4.5 gm/Dextrose 120 ml @ 30 mls/hr Q8H IV 06/04/17 06:00 06/11/17 05:59 06/06/17 06:08 30 MLS/HR Miscellaneous Information (Consult) 1 UD PRN N/A 06/04/17 03:45 07/04/17 03:44 Albuterol/ Ipratropium (Duoneb) 3 ml Q6H PRN INH 06/04/17 03:45 07/04/17 03:44 Hydralazine HCl (HydrALAZINE INJ) 10 mg Q6H PRN IV. 06/04/17 14:15 07/04/17 11:29 Miscellaneous Information (Consult Glycemic Management Pharmacy) 1 UD PRN N/A 06/04/17 14:48 07/04/17 14:47 Enteral Nutritional Formula (Prosource No Carb) 30 ml TID PO 06/04/17 21:00 07/04/17 20:59 06/06/17 08:22 30 ML Bumetanide 2 mg/ Syringe 8 ml @ 4 mls/min DAILY@09,17 IV 06/04/17 18:00 07/04/17 17:59 Future Hold 06/05/17 16:54 4 MLS/MIN Carvedilol (Coreg Tab) 25 mg BID PO 06/04/17 21:00 07/04/17 20:59 06/06/17 08:21 25 MG Hydralazine HCl (Apresoline Tab) 50 mg TID PO 06/04/17 21:00 07/04/17 20:59 06/06/17 08:22 50 MG Insulin Glargine (Lantus Solostar Pen) 30 units BID SC 06/05/17 09:00 07/05/17 08:59 Future hold 06/06/17 07:32 30 UNITS Insulin Aspart (novoLOG ASPART) SLIDING SCALE G... ACHS SC 2/14/18 08:30 07/05/17 08:29 06/06/17 07:31 15 UNITS Iron Sucrose 200 mg/Sodium Chloride 110 ml @ 220 mls/hr Q2D@1300 IV 06/05/17 13:00 06/13/17 16:00 06/05/17 14:04 220 MLS/HR Impression (1) MICHAEL (acute kidney injury) (2) Hyperkalemia (3) Volume overload (4) Lymphedema (5) Anemia (6) Pneumonia (7) Hypertension (8) Diabetes Blanca is a 36-year-old gentlemen with stage 3 chronic kidney disease secondary to diabetic nephropathy with variable creatinine from 1.5-1.8, admitted to the hospital with pneumonia. Flu swab was negative and he was started empirically on vancomycin and Zosyn. Echo showed normal ejection fraction, normal left ventricular systolic and diastolic function. No history of coronary artery disease. EKG and cardiac troponin was unremarkable. He was found to have acute kidney injury p.o. creatinine on admission 1.5-0.7 which stayed stable and 2.8 this morning. Potassium remained elevated. Has been on losartan 100 a , Bumex 2 mg twice a day and ibuprofen daily. His chronic lower extremity edema , however somewhat noncompliant with his diuretics regimen. His diabetes and hypertension both seems to be poorly controlled, has type 1 diabetes since age 11, complicated by nephropathy, peripheral neuropathy and retinopathy. Losartan has been on hold since yesterday however he was continue on home on ibuprofen. Acute kidney injury most likely hemodynamically mediated in the setting combination of ARB, diuretics and NSAID. Currently seems volume overloaded, received at least 3-4 L of IV fluid. Recommendations --agree with holding Bumex for now however with his chronic lower extremity edema, ulcer and significantly low GFR, he will eventually need to be on diuretics and we may need to accept azotemia to optimize volume status as patient has high risk for sepsis from leg cellulitis. --Explained in detail to the patient that he has significant risk factor for eventual worsening of renal function needing dialysis in near future with underlying advanced CKD and high grade proteinuria with poorly-controlled hypertension, diabetes and morbid obesity. Stressed the importance of weight loss and offered referral to Dr. Bales, patient agreeable, will make the referral to Dr. Bales for further management --avoid all NSAIDs --avoid IV fluid --on carvedilol to 25 twice a day and hydralazine 50 mg t.i.d., keep off of amlodipine --on venofer and epogen 61696 x 1 dose given on 06/04/2017 Will follow
--- NOTE | 2017-06-06 12:39 | Hospitalist Progress Note ---
Hospitalist Progress Note Date of Service Jun 06, 2017. (Teresa Restrepo ., NILDA) Subjective Pt evaluation today including: conversation w/ patient, physical exam, lab review, review of inpatient medication list Voiding: no voiding problems Patient feeling well this AM. Eating and drinking OK. Denies any urinary issues. States bilateral lower extremity edema is at baseline. Patient denies any fever, chills, sweats, lightheadedness, dizziness, vision changes, CP, palpitations, edema, SOB, wheezing, cough, abdominal pain, nausea, vomiting, diarrhea, urinary symptoms, melena, numbness/tingling, weakness, muscle/joint pain, anxiety/depression, active bleeding, or new skin discoloration/changes. (Teresa Restrepo ., ELINC) Medications Current Inpatient Medications Medications (Trade) Dose Ordered Sig/Urvashi Route Start Time Stop Time Status Last Admin Dose Admin Atorvastatin Calcium (Lipitor Tab) 80 mg DAILY PO 06/04/17 09:00 07/04/17 08:59 06/06/17 08:21 80 MG Gabapentin (Neurontin Cap) 300 mg TID PO 06/04/17 09:00 07/04/17 08:59 06/06/17 08:22 300 MG Levothyroxine Sodium (Synthroid Tab) 50 mcg DAILYBB PO 06/04/17 06:00 07/04/17 06:59 06/06/17 06:08 50 MCG Heparin Sodium (Porcine) (Heparin Sq 5000 Unit/0.5ml) 5,000 unit Q8 SQ 06/04/17 07:15 07/04/17 07:14 06/06/17 06:07 5,000 UNIT Acetaminophen (Tylenol Tab) 650 mg Q4H PRN PO 06/04/17 03:45 07/04/17 03:44 06/04/17 23:30 650 MG Al Hydrox/Mg Hydrox/Simethicone (Maalox Max Susp) 15 ml Q4H PRN PO 06/04/17 03:45 07/04/17 03:44 Ondansetron HCl (Zofran Inj) 4 mg Q6H PRN IV 06/04/17 03:45 07/04/17 03:44 Polyethylene (Miralax Powder Packet) 17 gm DAILY PRN PO 06/04/17 03:45 07/04/17 03:44 Piperacillin Sod/ Tazobactam Sod 4.5 gm/Dextrose 120 ml @ 30 mls/hr Q8H IV 06/04/17 06:00 06/11/17 05:59 06/06/17 06:08 30 MLS/HR Miscellaneous Information (Consult) 1 ea UD PRN N/A 06/04/17 03:45 07/04/17 03:44 Albuterol/ Ipratropium (Duoneb) 3 ml Q6H PRN INH 06/04/17 03:45 07/04/17 03:44 Hydralazine HCl (HydrALAZINE INJ) 10 mg Q6H PRN IV. 06/04/17 14:15 07/04/17 11:29 Miscellaneous Information (Consult Glycemic Management Pharmacy) 1 [facility] PRN N/A 06/04/17 14:48 07/04/17 14:47 Enteral Nutritional Formula (Prosource No Carb) 30 ml TID PO 06/04/17 21:00 07/04/17 20:59 06/06/17 08:22 30 ML Bumetanide 2 mg/ Syringe 8 ml @ 4 mls/min DAILY@09,17 IV 06/04/17 18:00 07/04/17 17:59 Future Hold 06/05/17 16:54 4 MLS/MIN Carvedilol (Coreg Tab) 25 mg BID PO 06/04/17 21:00 07/04/17 20:59 06/06/17 08:21 25 MG Hydralazine HCl (Apresoline Tab) 50 mg TID PO 06/04/17 21:00 07/04/17 20:59 06/06/17 08:22 50 MG Insulin Glargine (Lantus Solostar Pen) 30 units BID SC 06/05/17 09:00 07/05/17 08:59 Future hold 06/06/17 07:32 30 UNITS Insulin Aspart (novoLOG ASPART) SLIDING SCALE G... ACHS SC 06/05/17 08:30 07/05/17 08:29 06/06/17 07:31 15 UNITS Iron Sucrose 200 mg/Sodium Chloride 110 ml @ 220 mls/hr Q2D@1300 IV 06/05/17 13:00 06/13/17 16:00 06/05/17 14:04 220 MLS/HR (Teresa Restrepo, KALA-C) Objective Vital Signs Date Time Temp Pulse Resp B/P (MAP) Pulse Ox O2 Delivery O2 Flow Rate FiO2 06/06/17 12:00 Room Air 06/06/17 11:15 36.8 87 18 151/74 (99) 98 06/06/17 10:30 36.8 80 20 143/78 (99) 96 Room Air 06/06/17 08:00 Room Air 06/06/17 07:18 36.9 82 20 158/88 (111) 94 Room Air 06/06/17 04:00 Room Air 06/06/17 03:15 36.8 81 23 131/79 (96) 95 Room Air 06/06/17 00:30 Room Air 06/05/17 23:41 37.0 83 21 127/72 (90) 92 Room Air 06/05/17 20:00 Room Air 06/05/17 19:31 37.0 81 156/90 (112) 94 Room Air 06/05/17 16:00 Room Air (Teresa Restrepo ., KALA-C) Physical Exam General Appearance: no apparent distress, + obese Eyes: normal inspection, PERRL ENT: hearing grossly normal Neck: supple Respiratory/Chest: lungs clear, no respiratory distress, no accessory muscle use Cardiovascular: regular rate, rhythm Abdomen: normal bowel sounds, non tender, soft Extremities: + pedal edema (bilateral ), + pertinent finding (bilateral lower extremities in clean dressings ) Neurologic/Psychiatric: alert, normal mood/affect, oriented x 3 Skin: normal color, warm/dry, no rash (Teresa Restrepo ., KALA-C) Laboratory Results Last 24 Hours Test 06/05/17 12:44 06/05/17 13:26 06/05/17 16:36 06/05/17 20:41 Bedside Glucose 106 mg/dl 82 mg/dl 77 mg/dl 188 mg/dl Test 06/06/17 05:25 06/06/17 06:45 06/06/17 10:39 Sodium Level 134 mmol/L Potassium Level 4.0 mmol/L Chloride Level 101 mmol/L Carbon Dioxide Level 22 mmol/L Anion Gap 10.0 mmol/L Blood Urea Nitrogen 59 mg/dl Creatinine 3.78 mg/dl Est Creatinine Clear Calc Drug Dose 38.2 ml/min Estimated GFR () 22.5 Estimated GFR (Non- 19.5 BUN/Creatinine Ratio 15.6 Random Glucose 114 mg/dl Calcium Level 8.1 mg/dl Bedside Glucose 140 mg/dl 207 mg/dl (Teresa Restrepo, NILDA) Assessment and Plan 36 y/o m Hx HTN, CKD III, T1DM, morbid obesity, chronic anemia, chronic LE edema , chronic ulcers and cellulitis. Presents with acute onset of cough, fever and SOB. Pt describes a productive cough and a high fever over the past day. He denies CP, N/V, diarrhea or dysuria. Initial labs are notable for worsening renal function and mild hyperkalemia. The pt was marginally hypoxic while in the ER. A fever of 38.3 was confirmed on arrival. Due to his habitus a CXR was equivocal. He was subjected to a CT chest therefore which suggested CHF/ pulmonary edema but could not r/o a superimposed infectious process. To complicate matters, at the time when the CT was obtained, he had already received 2-3 liters of fluid. The pt is prescribed Bumex for LE edema, although he states he has not complied with this medication. He denies a history of CHF. SOB and fever, ?infectious process vs viral illness: - Admitted to tele for cardiac monitoring- no acute events- transfer to med/ surg - O2 protocol, wean as tolerated- currently on RA - On prolonged course of Levaquin for LE ulcer prior to admission- held and started on IV Zosyn - Procalcitonin 0.75 - Influenza negative, BCx NGTD, sputum cultures w/ normal guero, UA pending - DuoNebs QID PRN - Spiking fevers- no more fevers overnight- Tylenol PRN for fever/pain MICHAEL on CKD stage III, chronic anemia- follows w/ Dr. Miranda: - Bumex IV 2 mg BID- discussed w/ Nephrology, hold for now - UA pending - Hold nephrotoxic agents and renally dose medications as appropriate - Iron panel reviewed- IV Venofer 200 mg Q2D + IV Epoetin 06392 mg x1 per nephrology - Follow PRP and CBC -- big data hadoop developer 3.1 yesterday to 3.78 today - Nephrology consulted, appreciate recommendations ?Acute CHF exacerbation: - Bumex as above - Monitor I&Os and daily weights - ECHO- normal EF and diastolic function, LVH - Cardiology consulted, appreciate recommendations Hyperkalemia, secondary to MICHAEL- RESOLVED: - Monitor on tele - EKG w/out changes - Losartan held - MICHAEL treatment as above HTN: - Coreg 25 mg BID and Hydralazine 50 mg TID - Hold Losartan 100 mg daily due to MICHAEL - IV Hydralazine PRN Uncontrolled T1DM w/ diabetic neuropathy- hgbA1c 14.4% in 04/2017: - Suppose to be on Toujeo 100 u HS and NovoLog 30 u with meals per outpatient records - Pharmacy consulted for glycemic management - morning show newscast producer consulted - Continue Gabapentin 300 mg TID Morbid obesity: - Encourage healthy diet and exercise - Medical Records Clerk education consultation - f/u w/ Dr. Bales outpatient Chronic LE ulcers and cellulitis- Klebsiella, MSSA, and Enterobacter- follows w / Dr. Mcwilliams: - Hold Levaquin- on IV Zosyn - Wound care consulted HLD: Continue Lipitor 80 mg daily Hypothyroidism: Continue Synthroid 50 mcg daily DVT prophylaxis: Heparin SQ TID Code status: LEVEL I, FULL Dispo: Discharge uncertain- PT/OT and CM following (Teresa Restrepo, PA-C) Supervising Note Dr. Cat I performed a history and physical examination on the patient. I reviewed above note and agree with it. I discussed plan with APC and patient. During my face to face encounter with the patient, I answered all of the patient's questions. (Gil Cat M.D.)
--- NOTE | 2017-06-06 14:01 | Pharmacy Progress Note ---
Glycemic Control Progress Note Date of Service Jun 06, 2017. Scope Glycemic Pharmacist consulted for glycemic control to write orders per [facility] inpatient glycemic control protocol. Objective Accuchecks BSG (last 24hrs): Test 06/05/17 16:36 06/05/17 20:41 06/06/17 05:25 06/06/17 06:45 Bedside Glucose 77 mg/dl (70-99) 188 mg/dl (70-99) 140 mg/dl (70-99) Random Glucose 114 mg/dl (70-99) Test 06/06/17 10:39 Bedside Glucose 207 mg/dl (70-99) HbA1c: 14.4 % (04/2017) Outpatient Anti-Diabetic Meds Toujeo 60-80 units SQ qHS Novolog 40 units with meals Assessment & Plan ASSESSMENT: * See progress note from 06/04/17 for more background info, in short: * Pt receiving SQ basal bolus insulin regimen for hyperglycemia secondary to baseline DM (outpatient regimen on hold) and stress/infection * Patient received 110 units of insulin over the past 24 hours * 60 units of basal insulin * 50 units of bolus insulin * BSGs: 117, 158, 77, 188 * Changes needed to insulin regimen: * AM Fasting BSG = 140 mg/dl. This is near goal for patient based on inpatient targets and co-morbidities. Increase basal insulin ~15%. Patient takes 60-80 units per day at home. * Post-prandial BSGs elevated. Will tighten carb ratio. PLAN FOR INPATIENT GLYCEMIC CONTROL: * Basal insulin - increase * Lantus 35 units SQ BID * Bolus insulin - tighten * NovoLog per scale ACHS or Q6hrs while NPO * Goal Range: Low 110 mg/dL - High 140 mg/dL * Correction Factor: 10 mg/dL/unit * Nutritional / Prandial insulin per carb ratio of 1 unit per 2 grams CHO consumed * Please note that the plan above was derived based on current level of insulin resistance and hospital stress. These recommendations are appropriate for inpatient admission only. Plan of care upon discharge will need to be reassessed to avoid potential outpatient hypo/hyperglycemia. Thank you.
[2017-06-06 15:16] LABS: CREATININE RANDOM URINE 67.1 mg/dl
[2017-06-07] MEDS: PIPERACILL/TAZOBAC IV 4.5 GM in DEXTROSE 5% 100ML 100 ML IV SCH ×3 (06:07→22:09)
[2017-06-07] MEDS: LEVOTHYROXINE 50 MCG TAB PO SCH (06:07)
[2017-06-07] MEDS: HEPARIN SOD 5000 UNIT/0.5 ML CARP SQ SCH ×3 (06:07→21:16)
[2017-06-07 06:47] LABS: HEMATOCRIT 22.5 % (42-52); HEMOGLOBIN 7.9 g/dL (14.0-18.0); MEAN CELL VOLUME 81.8 fL (80-100); MEAN CORPUSCULAR HEMOGLOBIN 28.7 pg (25-34); MEAN CORPUSCULAR HGB CONC 35.1 g/dl (32-36); MEAN PLATELET VOLUME 9.7 fL (7.4-10.4); PLATELET COUNT 213 K/uL (130-400); RED CELL DISTRIBUTION WIDTH CV 12.7 % (11.5-14.5); RED CELL DISTRIBUTION WIDTH SD 37.7 fL (36.4-46.3); WHITE BLOOD COUNT 5.17 K/uL (4.8-10.8)
[2017-06-07 07:23] LABS: CALCIUM 8.4 mg/dl (8.5-10.1); CREATININE 4.33 mg/dl (0.60-1.40); POTASSIUM 3.8 mmol/L (3.5-5.1)
[2017-06-07 07:24] LABS: PHOSPHORUS 6.8 mg/dl (2.5-4.9)
[2017-06-07 08:20] VITALS: BP 153/81; PULSE 80; TEMP 36.8; O2SAT 96
[2017-06-07] MEDS ORDERED: CALCIUM CARBONATE 500 MG CHEWABLE PO PRN (09:00)
[2017-06-07] MEDS: PROSOURCE NOCARB 30ML/PKT PO SCH ×3 (09:13→21:04)
[2017-06-07] MEDS: GABAPENTIN 300 MG CAP PO SCH ×3 (09:15→21:03)
[2017-06-07] MEDS: ATORVASTATIN 40 MG TAB PO SCH (09:16)
[2017-06-07] MEDS: CARVEDILOL 12.5 MG TAB PO SCH ×2 (09:16→21:04)
[2017-06-07] MEDS: INSULIN GLARGINE SOLOSTAR 100 UNITS/ML 3 ML PEN SC SCH ×2 (09:22→21:16)
[2017-06-07] MEDS: INSULIN ASPART 100 UNITS/ML 3 ML PEN SC SCH ×4 (09:23→21:16)
--- NOTE | 2017-06-07 11:43 | Nephrology Progress Note ---
Nephrology Progress Note Date of Service Jun 07, 2017. Chief Complaint Follow-up for acute kidney injury and hyperkalemia. Subjective Ventura was seen and examined in his room this morning. Overall he is feeling well, he feels like he is moving around more than before he was in the hallway with walker. He is trying to limit his portion size. Has been voiding normally , blood pressure acceptable however renal function decline further, creatinine 4.3. Review of Systems A complete review of systems was performed. Pertinent positives are noted above. All other systems are negative. Vital Signs Last 8 Hrs Date Time Temp Pulse Resp B/P (MAP) Pulse Ox O2 Delivery O2 Flow Rate FiO2 06/07/17 08:20 36.8 80 20 153/81 (105) 96 Room Air 06/07/17 07:50 Room Air Last Recorded Weight Weight (Kilograms): 150.300 Physical Exam GENERAL: young male, AAA x 3, pleasant, morbidly obese, not in any distress. NECK: Supple, no JVD. RESPIRATORY: Normal breathing efforts, no accessory muscle use, clear to auscultation bilaterally, no wheezes or rales. CARDIOVASCULAR: S1, S2 normal, rate rhythm regular. EXTREMITY: 3 + lower extremity edema with chronic lower extremity ulcer, Wrapped in dressing NEURO: speech fluent. PSYCHIATRY: Normal mood and judgment Social History Smoking Status: Never smoker Drug Use: none Marital Status: single Housing Status: lives with family Occupation: unemployed Laboratory Results Past 24 Hours 06/07/17 05:57 06/07/17 05:57 Test 06/06/17 10:35 06/06/17 10:39 06/06/17 16:34 06/06/17 19:43 Urine Color YELLOW Urine Appearance CLOUDY (CLEAR) Urine pH 5.0 (4.5-7.5) Urine Specific [place] 1.008 (1.000-1.030) Urine Protein 3+ (NEG) Urine Glucose (UA) NEG (NEG) Urine Ketones NEG (NEG) Urine Occult Blood TRACE (NEG) Urine Nitrite NEG (NEG) Urine Bilirubin NEG (NEG) Urine Urobilinogen NEG (NEG) Urine Leukocyte Esterase NEG (NEG) Urine WBC (Auto) 1-5 /hpf (0-5) Urine RBC (Auto) 0-4 /hpf (0-4) Urine Hyaline Casts (Auto) 5-10 /lpf (0-5) Urine Epithelial Cells (Auto) 10-20 /lpf (0-5) Urine Bacteria (Auto) NEG (NEG) Urine Crystals AMORPHOUS SEDIMENT (NONE Urine Yeast (Auto) (NONE PRSENT) Urine Random Creatinine 67.1 mg/dl Urine Random Sodium 18 mEq/L Bedside Glucose 207 mg/dl (70-99) 224 mg/dl (70-99) 242 mg/dl (70-99) Test 06/07/17 04:55 06/07/17 05:57 06/07/17 08:11 Bedside Glucose 77 mg/dl (70-99) 112 mg/dl (70-99) Red Blood Count 2.75 M/uL (4.7-6.1) Mean Corpuscular Volume 81.8 fL (80-100) Mean Corpuscular Hemoglobin 28.7 pg (25-34) Mean Corpuscular Hemoglobin Concent 35.1 g/dl (32-36) RDW Standard Deviation 37.7 fL (36.4-46.3) RDW Coefficient of Variation 12.7 % (11.5-14.5) Mean Platelet Volume 9.7 fL (7.4-10.4) Anion Gap 13.0 mmol/L (3-11) Est Creatinine Clear Calc Drug Dose 33.1 ml/min Estimated GFR () 19.1 Estimated GFR (Non- 16.5 BUN/Creatinine Ratio 17.2 (10-20) Calcium Level 8.4 mg/dl (8.5-10.1) Phosphorus Level 6.8 mg/dl (2.5-4.9) Magnesium Level 2.5 mg/dl (1.8-2.4) Allergies Coded Allergies: Influenza Vaccines (Verified Allergy, Intermediate, UNKNOWN, 06/04/17) Lisinopril (Verified Allergy, Intermediate, COUGH, 06/04/17) Medications Current Inpatient Medications Medications (Trade) Dose Ordered Sig/Urvashi Route Start Time Stop Time Status Last Admin Dose Admin Atorvastatin Calcium (Lipitor Tab) 80 mg DAILY PO 06/04/17 09:00 07/04/17 08:59 06/06/17 08:21 80 MG Gabapentin (Neurontin Cap) 300 mg TID PO 06/04/17 09:00 07/04/17 08:59 06/06/17 19:55 300 MG Levothyroxine Sodium (Synthroid Tab) 50 mcg DAILYBB PO 06/04/17 06:00 07/04/17 06:59 06/07/17 06:07 50 MCG Heparin Sodium (Porcine) (Heparin Sq 5000 Unit/0.5ml) 5,000 unit Q8 SQ 06/04/17 07:15 07/04/17 07:14 06/07/17 06:07 5,000 UNIT Acetaminophen (Tylenol Tab) 650 mg Q4H PRN PO 06/04/17 03:45 07/04/17 03:44 06/04/17 23:30 650 MG Al Hydrox/Mg Hydrox/Simethicone (Maalox Max Susp) 15 ml Q4H PRN PO 06/04/17 03:45 07/04/17 03:44 Ondansetron HCl (Zofran Inj) 4 mg Q6H PRN IV 06/04/17 03:45 07/04/17 03:44 Polyethylene (Miralax Powder Packet) 17 gm DAILY PRN PO 06/04/17 03:45 07/04/17 03:44 Piperacillin Sod/ Tazobactam Sod 4.5 gm/Dextrose 120 ml @ 30 mls/hr Q8H IV 06/04/17 06:00 06/11/17 05:59 06/07/17 06:07 30 MLS/HR Miscellaneous Information (Consult) 1 ea UD PRN N/A 06/04/17 03:45 07/04/17 03:44 Albuterol/ Ipratropium (Duoneb) 3 ml Q6H PRN INH 06/04/17 03:45 07/04/17 03:44 Hydralazine HCl (HydrALAZINE INJ) 10 mg Q6H PRN IV. 06/04/17 14:15 07/04/17 11:29 Miscellaneous Information (Consult Glycemic Management Pharmacy) 1 ea UD PRN N/A 06/04/17 14:48 07/04/17 14:47 Enteral Nutritional Formula (Prosource No Carb) 30 ml TID PO 06/04/17 21:00 07/04/17 20:59 06/06/17 19:55 30 ML Bumetanide 2 mg/ Syringe 8 ml @ 4 mls/min DAILY@,17 IV 06/04/17 18:00 07/04/17 17:59 Future Hold 06/05/17 16:54 4 MLS/MIN Carvedilol (Coreg Tab) 25 mg BID PO 06/04/17 21:00 07/04/17 20:59 06/06/17 19:55 25 MG Hydralazine HCl (Apresoline Tab) 50 mg TID PO 06/04/17 21:00 07/04/17 20:59 06/06/17 19:54 50 MG Insulin Aspart (novoLOG ASPART) SLIDING SCALE G... ACHS SC 06/05/17 08:30 07/05/17 08:29 06/06/17 20:10 35 UNITS Iron Sucrose 200 mg/Sodium Chloride 110 ml @ 220 mls/hr Q2D@1300 IV 06/05/17 13:00 06/13/17 16:00 06/05/17 14:04 220 MLS/HR Insulin Glargine (Lantus Solostar Pen) 35 units BID SC 06/06/17 20:00 07/06/17 20:59 06/06/17 20:10 35 UNITS Sodium Bicarbonate (Sodium Bicarbonate Tab) 650 mg BID PO 06/07/17 20:00 07/07/17 19:59 UNV Impression (1) MICHAEL (acute kidney injury) (2) Hyperkalemia (3) Volume overload (4) Lymphedema (5) Anemia (6) Pneumonia (7) Hypertension (8) Diabetes Blanca is a 36-year-old gentlemen with stage 3 chronic kidney disease secondary to diabetic nephropathy with variable creatinine from 1.5-1.8, admitted to the hospital with pneumonia. Flu swab was negative and he was started empirically on vancomycin and Zosyn. Echo showed normal ejection fraction, normal left ventricular systolic and diastolic function. No history of coronary artery disease. EKG and cardiac troponin was unremarkable. He was found to have acute kidney injury p.o. creatinine on admission 1.5-0.7 which stayed stable and 2.8 this morning. Potassium remained elevated. Has been on losartan 100 a , Bumex 2 mg twice a day and ibuprofen daily. His chronic lower extremity edema , however somewhat noncompliant with his diuretics regimen. His diabetes and hypertension both seems to be poorly controlled, has type 1 diabetes since age 11, complicated by nephropathy, peripheral neuropathy and retinopathy. Losartan has been on hold since yesterday however he was continue on home on ibuprofen. Acute kidney injury most likely hemodynamically mediated in the setting combination of ARB, diuretics and NSAID. Currently seems volume overloaded, received at least 3-4 L of IV fluid. Recommendations --cr continues to worsen off of diuretics for last 2 days, creatinine 4.3 this morning, associated with multiple electrolyte abnormality including hyponatremia and metabolic acidosis --start on NaHCO3 , 650 bid and tums with meal as phosphate binder --Explained in detail to the patient that he has significant risk factor for worsening of renal function needing dialysis in near future with underlying advanced CKD and high grade proteinuria with poorly-controlled hypertension, diabetes and morbid obesity. Stressed the importance of weight loss and advise patient to follow up with Dr. Bales, patient agreeable, will schedule a follow- up appointment with Dr. Bales after discharge --avoid all NSAIDs --avoid IV fluid --on carvedilol to 25 twice a day and hydralazine 50 mg t.i.d., keep off of amlodipine --on venofer and epogen [id number] x 1 dose given on 06/04/2017 Will follow
--- NOTE | 2017-06-07 12:15 | Hospitalist Progress Note ---
Hospitalist Progress Note Date of Service Jun 07, 2017. (Teresa Restrepo ., PA-C) Subjective Pt evaluation today including: conversation w/ patient, physical exam, lab review, review of inpatient medication list Voiding: no voiding problems Patient sitting at edge of bed. Very upset this AM after talking with Dr. Kennedy and finding out his kidney function continues to worsen. States his brother is on HD and he will NOT do HD if needed. Otherwise feeling well. Eating and drinking OK. Patient denies any fever, chills, sweats, lightheadedness, dizziness, vision changes, CP, palpitations, edema, SOB, wheezing, cough, abdominal pain, nausea, vomiting, diarrhea, urinary symptoms, melena, numbness/tingling, weakness, muscle/joint pain, anxiety/depression, active bleeding, or new skin discoloration/changes. (Teresa Restrepo ., KALA-C) Medications Current Inpatient Medications Medications (Trade) Dose Ordered Sig/Urvashi Route Start Time Stop Time Status Last Admin Dose Admin Atorvastatin Calcium (Lipitor Tab) 80 mg DAILY PO 06/04/17 09:00 07/04/17 08:59 06/07/17 09:16 80 MG Gabapentin (Neurontin Cap) 300 mg TID PO 06/04/17 09:00 07/04/17 08:59 06/07/17 09:15 300 MG Levothyroxine Sodium (Synthroid Tab) 50 mcg DAILYBB PO 06/04/17 06:00 07/04/17 06:59 06/07/17 06:07 50 MCG Heparin Sodium (Porcine) (Heparin Sq 5000 Unit/0.5ml) 5,000 unit Q8 SQ 06/04/17 07:15 07/04/17 07:14 06/07/17 06:07 5,000 UNIT Acetaminophen (Tylenol Tab) 650 mg Q4H PRN PO 06/04/17 03:45 07/04/17 03:44 06/04/17 23:30 650 MG Al Hydrox/Mg Hydrox/Simethicone (Maalox Max Susp) 15 ml Q4H PRN PO 06/04/17 03:45 07/04/17 03:44 Ondansetron HCl (Zofran Inj) 4 mg Q6H PRN IV 06/04/17 03:45 07/04/17 03:44 Polyethylene (Miralax Powder Packet) 17 gm DAILY PRN PO 06/04/17 03:45 07/04/17 03:44 Piperacillin Sod/ Tazobactam Sod 4.5 gm/Dextrose 120 ml @ 30 mls/hr Q8H IV 06/04/17 06:00 06/11/17 05:59 06/07/17 06:07 30 MLS/HR Miscellaneous Information (Consult) 1 UD PRN N/A 06/04/17 03:45 07/04/17 03:44 Albuterol/ Ipratropium (Duoneb) 3 ml Q6H PRN INH 06/04/17 03:45 07/04/17 03:44 Hydralazine HCl (HydrALAZINE INJ) 10 mg Q6H PRN IV. 06/04/17 14:15 07/04/17 11:29 Miscellaneous Information (Consult Glycemic Management Pharmacy) 1 UD PRN N/A 06/04/17 14:48 07/04/17 14:47 Enteral Nutritional Formula (Prosource No Carb) 30 ml TID PO 06/04/17 21:00 07/04/17 20:59 06/07/17 09:13 30 ML Bumetanide 2 mg/ Syringe 8 ml @ 4 mls/min DAILY@09,17 IV 06/04/17 18:00 07/04/17 17:59 Future Hold 06/05/17 16:54 4 MLS/MIN Carvedilol (Coreg Tab) 25 mg BID PO 06/04/17 21:00 07/04/17 20:59 06/07/17 09:16 25 MG Hydralazine HCl (Apresoline Tab) 50 mg TID PO 06/04/17 21:00 07/04/17 20:59 06/07/17 09:15 50 MG Insulin Aspart (novoLOG ASPART) SLIDING SCALE G... ACHS SC 06/05/17 08:30 07/05/17 08:29 06/07/17 09:23 20 UNITS Iron Sucrose 200 mg/Sodium Chloride 110 ml @ 220 mls/hr Q2D@1300 IV 06/05/17 13:00 06/13/17 16:00 06/05/17 14:04 220 MLS/HR Insulin Glargine (Lantus Solostar Pen) 35 units BID SC 06/06/17 20:00 07/06/17 20:59 06/07/17 09:22 35 UNITS Sodium Bicarbonate (Sodium Bicarbonate Tab) 650 mg BID PO 06/07/17 20:00 07/07/17 19:59 Calcium Carbonate (Tums Chew Tab) 500 mg AC PRN PO 06/07/17 09:00 07/07/17 08:59 (Teresa Restrepo, KALA-C) Objective Vital Signs Date Time Temp Pulse Resp B/P (MAP) Pulse Ox O2 Delivery O2 Flow Rate FiO2 06/07/17 08:20 36.8 80 20 153/81 (105) 96 Room Air 06/07/17 07:50 Room Air 06/07/17 00:00 Room Air 06/06/17 22:35 36.9 85 20 148/80 (102) 97 Room Air 06/06/17 18:30 95 Room Air 06/06/17 18:15 36.7 87 18 167/88 (114) 95 06/06/17 14:44 36.8 87 18 98 2.0 (Teresa Restrepo ., PA-C) Physical Exam General Appearance: no apparent distress, + obese Eyes: normal inspection, PERRL ENT: hearing grossly normal Neck: supple Respiratory/Chest: lungs clear, no respiratory distress, no accessory muscle use Cardiovascular: regular rate, rhythm Abdomen: normal bowel sounds, non tender, soft Extremities: + pedal edema, + pertinent finding (bilateral lower extremities in dressings ) Neurologic/Psychiatric: alert, normal mood/affect, oriented x 3 Skin: normal color, warm/dry, no rash (Teresa Restrepo, PA-C) Laboratory Results Last 24 Hours Test 06/06/17 16:34 06/06/17 19:43 06/07/17 04:55 06/07/17 05:57 Bedside Glucose 224 mg/dl 242 mg/dl 77 mg/dl White Blood Count 5.17 K/uL Red Blood Count 2.75 M/uL Hemoglobin 7.9 g/dL Hematocrit 22.5 % Mean Corpuscular Volume 81.8 fL Mean Corpuscular Hemoglobin 28.7 pg Mean Corpuscular Hemoglobin Concent 35.1 g/dl RDW Standard Deviation 37.7 fL RDW Coefficient of Variation 12.7 % Platelet Count 213 K/uL Mean Platelet Volume 9.7 fL Sodium Level 130 mmol/L Potassium Level 3.8 mmol/L Chloride Level 98 mmol/L Carbon Dioxide Level 19 mmol/L Anion Gap 13.0 mmol/L Blood Urea Nitrogen 74 mg/dl Creatinine 4.33 mg/dl Est Creatinine Clear Calc Drug Dose 33.1 ml/min Estimated GFR () 19.1 Estimated GFR (Non- 16.5 BUN/Creatinine Ratio 17.2 Random Glucose 98 mg/dl Calcium Level 8.4 mg/dl Phosphorus Level 6.8 mg/dl Magnesium Level 2.5 mg/dl Test 06/07/17 08:11 Bedside Glucose 112 mg/dl (Teresa Restrepo, NILDA) Assessment and Plan 36 y/o m Hx HTN, CKD III, T1DM, morbid obesity, chronic anemia, chronic LE edema , chronic ulcers and cellulitis. Presents with acute onset of cough, fever and SOB. Pt describes a productive cough and a high fever over the past day. He denies CP, N/V, diarrhea or dysuria. Initial labs are notable for worsening renal function and mild hyperkalemia. The pt was marginally hypoxic while in the ER. A fever of 38.3 was confirmed on arrival. Due to his habitus a CXR was equivocal. He was subjected to a CT chest therefore which suggested CHF/ pulmonary edema but could not r/o a superimposed infectious process. To complicate matters, at the time when the CT was obtained, he had already received 2-3 liters of fluid. The pt is prescribed Bumex for LE edema, although he states he has not complied with this medication. He denies a history of CHF. MICHAEL on CKD stage III w/ hyponatremia/metabolic acidosis, chronic anemia- follows w/ Dr. Miranda: - Bumex IV 2 mg BID- discussed w/ Nephrology, hold for now - UA reviewed - Hold nephrotoxic agents and renally dose medications as appropriate - Iron panel reviewed- IV Venofer 200 mg Q2D + IV Epoetin 06512 mg x1 per nephrology - Follow PRP and CBC- dishtank operator 3.78 yesterday to 4.33 today, hgb stable at 7.9 - Nephrology consulted, appreciate recommendations- started NaHCO3 650 BID and Tums with meal as phosphate binder SOB and fever, ?infectious process vs viral illness: - Admitted to tele for cardiac monitoring- no acute events- transfer to med/ surg - O2 protocol, wean as tolerated- currently on RA - On prolonged course of Levaquin for LE ulcer prior to admission- held and started on IV Zosyn - Procalcitonin 0.75 - Influenza negative, BCx NGTD, sputum cultures w/ normal guero, UA w/out infection - DuoNebs QID PRN - Spiking fevers- no more fevers x2 days- Tylenol PRN for fever/pain ?Acute CHF exacerbation: - Bumex as above - Monitor I&Os and daily weights - ECHO- normal EF and diastolic function, LVH - Cardiology consulted, appreciate recommendations Hyperkalemia, secondary to MICHAEL- RESOLVED: - Monitor on tele - EKG w/out changes - Losartan held - MICHAEL treatment as above HTN: - Coreg 25 mg BID and Hydralazine 50 mg TID - Hold Losartan 100 mg daily due to MICHAEL - IV Hydralazine PRN Uncontrolled T1DM w/ diabetic neuropathy- hgbA1c 14.4% in 04/2017: - Suppose to be on Toujeo 100 u HS and NovoLog 30 u with meals per outpatient records - Pharmacy consulted for glycemic management - staff development educator consulted - Continue Gabapentin 300 mg TID Morbid obesity: - Encourage healthy diet and exercise - Toaster Element Repairer education consultation - f/u w/ Dr. Bales outpatient Chronic LE ulcers and cellulitis- Klebsiella, MSSA, and Enterobacter- follows w / Dr. Mcwilliams: - Hold Levaquin- on IV Zosyn - Wound care consulted HLD: Continue Lipitor 80 mg daily Hypothyroidism: Continue Synthroid 50 mcg daily DVT prophylaxis: Heparin SQ TID Code status: LEVEL I, FULL Dispo: Discharge uncertain- PT/OT and CM following (Teresa Restrepo, PA-C) Supervising Note Dr. Cat I performed a history and physical examination on the patient. I reviewed above note and agree with it. I discussed plan with APC and patient. During my face to face encounter with the patient, I answered all of the patient's questions. (Gil Cat M.D.)
[2017-06-07] MEDS: IRON SUCROSE INJ 200 MG in SODIUM CHLORIDE 0.9% 100ML 100 ML IV SCH (13:40)
[2017-06-07 16:00] VITALS: O2SAT 96
[2017-06-07 16:04] VITALS: BP 152/89; PULSE 77; TEMP 36.7; O2SAT 98
[2017-06-07] MEDS: SODIUM BICARBONATE 650 MG TAB PO SCH (21:05)
[2017-06-07 23:35] VITALS: BP 144/82; PULSE 81; TEMP 36.6; O2SAT 95
[2017-06-08] MEDS: PIPERACILL/TAZOBAC IV 4.5 GM in DEXTROSE 5% 100ML 100 ML IV SCH ×3 (06:46→21:59)
[2017-06-08] MEDS: LEVOTHYROXINE 50 MCG TAB PO SCH (06:46)
[2017-06-08] MEDS: HEPARIN SOD 5000 UNIT/0.5 ML CARP SQ SCH ×3 (06:46→22:11)
[2017-06-08 07:39] LABS: CALCIUM 8.3 mg/dl (8.5-10.1); CREATININE 4.61 mg/dl (0.60-1.40); POTASSIUM 4.3 mmol/L (3.5-5.1)
[2017-06-08 08:27] VITALS: BP 155/84; PULSE 78; TEMP 36.3; O2SAT 97
[2017-06-08] MEDS: CARVEDILOL 12.5 MG TAB PO SCH ×2 (09:08→20:26)
[2017-06-08] MEDS: SODIUM BICARBONATE 650 MG TAB PO SCH ×2 (09:08→20:29)
[2017-06-08] MEDS: ATORVASTATIN 40 MG TAB PO SCH (09:08)
[2017-06-08] MEDS: PROSOURCE NOCARB 30ML/PKT PO SCH ×3 (09:08→20:30)
[2017-06-08] MEDS: GABAPENTIN 300 MG CAP PO SCH ×3 (09:08→20:27)
[2017-06-08] MEDS: INSULIN GLARGINE SOLOSTAR 100 UNITS/ML 3 ML PEN SC SCH ×2 (09:13→20:38)
[2017-06-08] MEDS: INSULIN ASPART 100 UNITS/ML 3 ML PEN SC SCH ×4 (09:14→22:11)
--- NOTE | 2017-06-08 11:22 | Pharmacy Progress Note ---
Pharmacy Glycemic Short Note 2 Date of Service Jun 08, 2017. OUTPATIENT ANTIDIABETIC REGIMEN: - poor compliance * Toujeo 60-80 units qHS * Novolog 40 units with meals ASSESSMENT: 06/08/17 * Mr. Snell received 178 units of insulin yesterday * No changes to causes of insulin resistance * He had a low BSG of 61 overnight, which was treated with chocolate milk, eldon crackers, and PB. The low could have been as a result of either the Novolog at bedtime or the Lantus. In addition, the Novolog doses may have been stacked yesterday because the doses in the afternoon were given @ 1500, 1800 and 2100. * Will plan to slightly reduce the basal and loosen both CF/CR for HS dose of Novolog only PLAN FOR INPATIENT GLYCEMIC CONTROL: * Basal insulin * DECREASE Lantus to 32 units SQ BID * Bolus insulin * NovoLog per scale ACHS or Q6hrs while NPO + 0200 check to evaluate for recurrent hypoglycemia * Goal Range: Low 110 mg/dL - High 140 mg/dL * Correction Factor: 9 mg/dL/unit - LOOSEN to 10 at HS * Nutritional / Prandial insulin per carb ratio of 1 unit per 2 grams CHO consumed - LOOSEN to 3 at HS
--- NOTE | 2017-06-08 14:58 | Nephrology Progress Note ---
Nephrology Progress Note Date of Service Jun 08, 2017. Chief Complaint MICHAEL/CKD Subjective No acute events overnight. I had a long conversation with Ventura this afternoon. He expressed his frustrations and concerns. He is confused regarding the recent change in his health. He expressed frustration in living with lymphedema. He reported acceptable baseline quality of life. 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 His brother is on PD at home. Ventura has been living with his brother. Ventura states that he would prefer to start in-center dialysis if needed. He is interested in [facility] if indeed dialysis is necessary. Ventura had spoken to Dr. Miranda about this in the past. Ventura denies any shortness of breath. He does not have any urinary complaints. He denies pain. He is ambulating in his hospital room without difficulty. Activity tolerance appears to be at baseline. Appetite is good. He does not have any nausea. He denies any fevers or chills. Review of Systems A complete review of systems was performed. Pertinent positives are noted above. All other systems are negative. Vital Signs Last 8 Hrs Date Time Temp Pulse Resp B/P (MAP) Pulse Ox O2 Delivery O2 Flow Rate FiO2 06/08/17 08:40 Room Air 06/08/17 08:27 36.3 78 20 155/84 (107) 97 Room Air Last Recorded Weight Weight (Kilograms): 151.600 Physical Exam General Appearance: no apparent distress, + obese Head: normocephalic, atraumatic Eyes: normal inspection, sclerae normal ENT: normal ENT inspection, pharynx normal Neck: supple, no JVD Respiratory/Chest: lungs clear, no respiratory distress, no accessory muscle use Cardiovascular: regular rate, rhythm, no gallop Abdomen/GI: non tender, soft, + distended Extremities/Musculoskelatal: + pertinent finding (+4 pitting BL LE edema to the abdomen) Neurologic/Psych: alert, normal mood/affect Social History Smoking Status: Never smoker Drug Use: none Marital Status: single Housing Status: lives with family Occupation: unemployed Laboratory Results Past 24 Hours 06/08/17 06:39 Test 06/07/17 17:01 06/07/17 19:25 06/07/17 23:22 06/07/17 23:51 Bedside Glucose 201 mg/dl (70-99) 178 mg/dl (70-99) 61 mg/dl (70-99) 78 mg/dl (70-99) Test 06/08/17 00:58 06/08/17 06:39 06/08/17 08:11 Bedside Glucose 101 mg/dl (70-99) 163 mg/dl (70-99) Anion Gap 13.0 mmol/L (3-11) Est Creatinine Clear Calc Drug Dose 31.3 ml/min Estimated GFR () 17.7 Estimated GFR (Non- 15.3 BUN/Creatinine Ratio 17.2 (10-20) Calcium Level 8.3 mg/dl (8.5-10.1) Allergies Coded Allergies: Influenza Vaccines (Verified Allergy, Intermediate, UNKNOWN, 06/04/17) Lisinopril (Verified Allergy, Intermediate, COUGH, 06/04/17) Medications Current Inpatient Medications Medications (Trade) Dose Ordered Sig/Urvashi Route Start Time Stop Time Status Last Admin Dose Admin Atorvastatin Calcium (Lipitor Tab) 80 mg DAILY PO 06/04/17 09:00 07/04/17 08:59 06/08/17 09:08 80 MG Gabapentin (Neurontin Cap) 300 mg TID PO 06/04/17 09:00 07/04/17 08:59 06/08/17 09:08 300 MG Levothyroxine Sodium (Synthroid Tab) 50 mcg DAILYBB PO 06/04/17 06:00 07/04/17 06:59 06/08/17 06:46 50 MCG Heparin Sodium (Porcine) (Heparin Sq 5000 Unit/0.5ml) 5,000 unit Q8 SQ 06/04/17 07:15 07/04/17 07:14 06/08/17 06:46 5,000 UNIT Acetaminophen (Tylenol Tab) 650 mg Q4H PRN PO 06/04/17 03:45 07/04/17 03:44 06/04/17 23:30 650 MG Al Hydrox/Mg Hydrox/Simethicone (Maalox Max Susp) 15 ml Q4H PRN PO 06/04/17 03:45 07/04/17 03:44 Ondansetron HCl (Zofran Inj) 4 mg Q6H PRN IV 06/04/17 03:45 07/04/17 03:44 Polyethylene (Miralax Powder Packet) 17 gm DAILY PRN PO 06/04/17 03:45 07/04/17 03:44 Piperacillin Sod/ Tazobactam Sod 4.5 gm/Dextrose 120 ml @ 30 mls/hr Q8H IV 06/04/17 06:00 06/11/17 05:59 06/08/17 06:46 30 MLS/HR Miscellaneous Information (Consult) 1 UD PRN N/A 06/04/17 03:45 07/04/17 03:44 Albuterol/ Ipratropium (Duoneb) 3 ml Q6H PRN INH 06/04/17 03:45 07/04/17 03:44 Hydralazine HCl (HydrALAZINE INJ) 10 mg Q6H PRN IV. 06/04/17 14:15 07/04/17 11:29 Miscellaneous Information (Consult Glycemic Management Pharmacy) 1 UD PRN N/A 06/04/17 14:48 07/04/17 14:47 Enteral Nutritional Formula (Prosource No Carb) 30 ml TID PO 06/04/17 21:00 07/04/17 20:59 06/08/17 09:08 30 ML Bumetanide 2 mg/ Syringe 8 ml @ 4 mls/min DAILY@09,17 IV 06/04/17 18:00 07/04/17 17:59 Future Hold 06/05/17 16:54 4 MLS/MIN Carvedilol (Coreg Tab) 25 mg BID PO 06/04/17 21:00 07/04/17 20:59 06/08/17 09:08 25 MG Hydralazine HCl (Apresoline Tab) 50 mg TID PO 06/04/17 21:00 07/04/17 20:59 06/08/17 09:08 50 MG Iron Sucrose 200 mg/Sodium Chloride 110 ml @ 220 mls/hr Q2D@1300 IV 06/05/17 13:00 06/13/17 16:00 06/07/17 13:40 220 MLS/HR Sodium Bicarbonate (Sodium Bicarbonate Tab) 650 mg BID PO 06/07/17 20:00 07/07/17 19:59 06/08/17 09:08 650 MG Calcium Carbonate (Tums Chew Tab) 500 mg AC PRN PO 06/07/17 09:00 07/07/17 08:59 Insulin Glargine (Lantus Solostar Pen) 32 units BID SC 06/08/17 08:30 07/08/17 08:29 06/08/17 09:13 32 UNITS Insulin Aspart (novoLOG ASPART) SLIDING SCALE G... 0200 ONCE SC 06/09/17 02:00 06/09/17 02:01 Insulin Aspart (novoLOG ASPART) SLIDING SCALE G... HS SC 06/08/17 22:00 07/08/17 21:59 Insulin Aspart (novoLOG ASPART) SLIDING SCALE G... AC SC 06/08/17 11:00 07/08/17 10:59 06/08/17 12:57 42 UNITS Impression (1) MICHAEL (acute kidney injury) (2) Hyperkalemia (3) Volume overload (4) Lymphedema (5) Anemia (6) Pneumonia (7) Hypertension (8) Diabetes Ventura is a 36-year-old male with diabetic nephropathy. He was admitted with pneumonia. Flu swab was negative and he was started empirically on vancomycin and Zosyn. MICHAEL is consistent with multifactorial ATN superimposed on advanced diabetic nephropathy. The patient was taking losartan and ibuprofen at home. He is hypervolemic with chronic persistent lower extremity lymphedema and possible superimposed cellulitis. Diabetes and hypertension have both been poorly controlled. These are complicated by nephropathy, peripheral neuropathy and retinopathy. After discussing volume status and current clinical picture in detail, Ventura expressed understanding of the potential role for renal replacement therapy and the current role of diuretics. We will restart Bumex to encourage a negative fluid balance while monitoring renal function. If kidney parameters do not show evidence of renal recovery in the near future, the patient understands that hemodialysis is the next step in management. Recommendations MICHAEL/CKD: -- Bumex 2 mg twice daily -- Monitor metabolic profile daily -- Renal diet -- Continue to avoid ROSA MARIA/ARB and NSAIDS -- Current medications are appropriate for renal function Hyponatremia: -- Hypervolemic Metabolic acidosis: -- PO NaHCO3 650 TID Anemia: -- Repeat CBC tomorrow AM -- Continue Venofer -- Epogen [id number] x 1 dose given on 06/04/2017 Hypertension --Carvedilol 25 mg twice daily Lymphedema: -- Feet elevation, compression therapy and diuresis
[2017-06-08] MEDS ORDERED: BUMETANIDE 1 MG TAB PO ONE (15:00)
[2017-06-08 15:47] VITALS: BP 159/87; PULSE 80; TEMP 36.4; O2SAT 96
[2017-06-08 20:16] VITALS: BP 179/106; PULSE 87; TEMP 36.7; O2SAT 97
--- NOTE | 2017-06-08 21:03 | PROGRESS NOTE ---
DATE: 06/08/2017 HISTORY OF PRESENT ILLNESS: Mr. Snell is a morbidly obese 36-year-old white male with a history of longstanding type 1 diabetes mellitus, hypertension, chronic anemia, chronic lower extremity lymphedema, and chronic kidney disease who presented acutely to the hospital with fevers, chills, cough, and shortness of breath. He appears to have a pneumonia, and unfortunately has developed worsening renal function with mild hyperkalemia. The patient was marginally hypoxic while in the Emergency Room with elevated temperature of 38.3 degrees Celsius on arrival. The patient has been started on Levaquin and IV Zosyn for his suspected pneumonia, and he also has lower extremity wounds, possibly cellulitis. He is currently being followed by [facility] nephrology, and they are discussing the future need for renal replacement therapy. The patient appears to be coming to terms with this now. The patient currently offers no complaints. He denies any shortness of breath. He continues to have a cough, but is nonproductive. The swelling in his legs is still present, but he feels they are improving. PHYSICAL EXAMINATION: VITAL SIGNS: Temperature is 36.4 degrees Celsius, pulse 80 and regular, respiratory rate is 16 and unlabored, blood pressure is 159/87 and SpO2 is 96% on room air. GENERAL: The patient is in no acute distress. HEENT: Head is atraumatic, normocephalic. EOMs intact. Sclerae are anicteric. Facies symmetric. No perioral cyanosis. NECK: Without JVD. Carotid upstrokes +2 bilaterally without bruits. CHEST AND LUNGS: Clear to auscultation throughout all lung blake, no wheezes, rales or rhonchi. CARDIOVASCULAR: S1 and S2 are regular without murmur, gallop or rub. ABDOMINAL EXAM: Bowel sounds present. No masses, organomegaly, or tenderness. EXTREMITIES: With +4 pitting edema to the level of the lower abdomen. NEUROLOGIC: The patient is awake, alert and oriented. Pleasant and cooperative. Answers questions appropriately. Speech is clear. Normal movement in all 4 extremities. Gait pattern is not assessed. LABORATORY DATA: White blood cell count is 5.17. Hemoglobin 7.9 g/dl, hematocrit 22.5%, platelet count is 213,000. Sodium is 128 mmol/L, potassium 4.3 mmol/L, BUN 82 mg/dL. Creatinine of 4.61 mg/dL. Random glucose of 134 mg/dL. Urinalysis shows +3 urine protein. There are hyaline cast present as well. Amorphous sediment as well. ASSESSMENT: 1. Acute on chronic renal insufficiency. Likely secondary to acute tubular necrosis. 2. Hyperkalemia, resolved. 3. Uncontrolled type 1 diabetes mellitus with diabetic nephropathy. 4. Chronic lower extremity edema. 5. Hypertension. 6. Possible pneumonia, lungs are currently clear. 7. Anemia, likely secondary to renal disease. 8. Morbid obesity. PLAN: 1. Appreciate nephrology's input. Continue sodium bicarbonate and calcium carbonate as per nephrology service. Renal replacement therapy is being planned. 2. Continue Coreg 25 mg b.i.d. 3. Continue Hydralazine 50 mg t.i.d. 4. Continue terminal make up operator Atorvastatin 80 mg daily. 5. Continue Heparin 5000 units subcutaneous injection q. 8 hours for DVT prophylaxis. 6. Continue thyroid replacement. 7. Continue Zosyn IV q. 8 hours. 8. Continue dressings to legs. Elevate legs. 9. Avoid nephrotoxic medications, avoid NSAIDs. 10. Strongly encouraged weight loss. 11. Will continue to follow closely while hospitalized. MTDD
[2017-06-08 23:46] VITALS: BP 158/85; PULSE 92; TEMP 36.4; O2SAT 96
[2017-06-09] MEDS ORDERED: INSULIN ASPART 100 UNITS/ML 3 ML PEN SC ONE (02:00)
[2017-06-09] MEDS ORDERED: INSULIN ASPART 100 UNITS/ML 3 ML PEN SC SCH (02:15)
[2017-06-09] MEDS: HEPARIN SOD 5000 UNIT/0.5 ML CARP SQ SCH ×3 (06:02→22:09)
[2017-06-09] MEDS: LEVOTHYROXINE 50 MCG TAB PO SCH (06:02)
[2017-06-09] MEDS: PIPERACILL/TAZOBAC IV 4.5 GM in DEXTROSE 5% 100ML 100 ML IV SCH ×3 (06:09→22:09)
[2017-06-09 07:03] VITALS: BP 173/99; PULSE 83; TEMP 36.7; O2SAT 97
[2017-06-09 07:42] LABS: HEMATOCRIT 23.1 % (42-52); MEAN CELL VOLUME 82.2 fL (80-100); MEAN CORPUSCULAR HEMOGLOBIN 28.5 pg (25-34); MEAN CORPUSCULAR HGB CONC 34.6 g/dl (32-36); MEAN PLATELET VOLUME 9.8 fL (7.4-10.4); PLATELET COUNT 226 K/uL (130-400); RED CELL DISTRIBUTION WIDTH CV 12.6 % (11.5-14.5); RED CELL DISTRIBUTION WIDTH SD 37.8 fL (36.4-46.3)
[2017-06-09 08:26] LABS: CALCIUM 8.5 mg/dl (8.5-10.1); CREATININE 4.48 mg/dl (0.60-1.40); POTASSIUM 3.8 mmol/L (3.5-5.1)
[2017-06-09] MEDS ORDERED: BUMETANIDE 1 MG TAB PO ONE (09:00)
[2017-06-09] MEDS: INSULIN ASPART 100 UNITS/ML 3 ML PEN SC SCH ×4 (09:46→22:09)
[2017-06-09] MEDS: INSULIN GLARGINE SOLOSTAR 100 UNITS/ML 3 ML PEN SC SCH ×2 (09:47→19:57)
[2017-06-09] MEDS: CARVEDILOL 12.5 MG TAB PO SCH ×2 (09:49→19:54)
[2017-06-09] MEDS: GABAPENTIN 300 MG CAP PO SCH ×3 (09:50→19:54)
[2017-06-09] MEDS: SODIUM BICARBONATE 650 MG TAB PO SCH ×2 (09:50→19:53)
[2017-06-09] MEDS: ATORVASTATIN 40 MG TAB PO SCH (09:50)
[2017-06-09] MEDS: PROSOURCE NOCARB 30ML/PKT PO SCH ×3 (09:52→19:52)
--- NOTE | 2017-06-09 11:26 | Nephrology Progress Note ---
Nephrology Progress Note Date of Service Jun 09, 2017. Chief Complaint MICHAEL/CKD Subjective No acute events overnight. No complaints this morning. No fevers or chills. No shortness of breath. No lightheadedness or dizziness. Appetite is good. Ventura denies any nausea. Legs were rewrapped this morning. Review of Systems A complete review of systems was performed. Pertinent positives are noted above. All other systems are negative. Vital Signs Last 8 Hrs Date Time Temp Pulse Resp B/P (MAP) Pulse Ox O2 Delivery O2 Flow Rate FiO2 06/09/17 07:03 36.7 83 18 173/99 (123) 97 Last Recorded Weight Weight (Kilograms): 151.400 Physical Exam General Appearance: WD/WN, no apparent distress Head: normocephalic, atraumatic Eyes: normal inspection, sclerae normal ENT: normal ENT inspection, pharynx normal Neck: supple, no JVD Respiratory/Chest: lungs clear, no respiratory distress, no accessory muscle use Cardiovascular: regular rate, rhythm, no JVD Abdomen/GI: non tender, soft Extremities/Musculoskelatal: normal inspection, no pedal edema Neurologic/Psych: alert, normal mood/affect Social History Smoking Status: Never smoker Drug Use: none Marital Status: single Housing Status: lives with family Occupation: unemployed Laboratory Results Past 24 Hours 06/09/17 07:03 06/09/17 07:03 Test 06/08/17 11:32 06/08/17 16:43 06/08/17 20:23 06/09/17 01:59 Bedside Glucose 216 mg/dl (70-99) 134 mg/dl (70-99) 244 mg/dl (70-99) 276 mg/dl (70-99) Test 06/09/17 04:10 06/09/17 07:03 06/09/17 07:23 Bedside Glucose 237 mg/dl (70-99) 208 mg/dl (70-99) Red Blood Count 2.81 M/uL (4.7-6.1) Mean Corpuscular Volume 82.2 fL (80-100) Mean Corpuscular Hemoglobin 28.5 pg (25-34) Mean Corpuscular Hemoglobin Concent 34.6 g/dl (32-36) RDW Standard Deviation 37.8 fL (36.4-46.3) RDW Coefficient of Variation 12.6 % (11.5-14.5) Mean Platelet Volume 9.8 fL (7.4-10.4) Anion Gap 14.0 mmol/L (3-11) Est Creatinine Clear Calc Drug Dose 32.2 ml/min Estimated GFR () 18.4 Estimated GFR (Non- 15.8 BUN/Creatinine Ratio 18.1 (10-20) Calcium Level 8.5 mg/dl (8.5-10.1) Phosphorus Level 7.0 mg/dl (2.5-4.9) Albumin 2.0 gm/dl (3.4-5.0) Allergies Coded Allergies: Influenza Vaccines (Verified Allergy, Intermediate, UNKNOWN, 06/04/17) Lisinopril (Verified Allergy, Intermediate, COUGH, 06/04/17) Medications Current Inpatient Medications Medications (Trade) Dose Ordered Sig/Urvashi Route Start Time Stop Time Status Last Admin Dose Admin Atorvastatin Calcium (Lipitor Tab) 80 mg DAILY PO 06/04/17 09:00 07/04/17 08:59 06/09/17 09:50 80 MG Gabapentin (Neurontin Cap) 300 mg TID PO 06/04/17 09:00 07/04/17 08:59 06/09/17 09:50 300 MG Levothyroxine Sodium (Synthroid Tab) 50 mcg DAILYBB PO 06/04/17 06:00 07/04/17 06:59 06/09/17 06:02 50 MCG Heparin Sodium (Porcine) (Heparin Sq 5000 Unit/0.5ml) 5,000 unit Q8 SQ 06/04/17 07:15 07/04/17 07:14 06/09/17 06:02 5,000 UNIT Acetaminophen (Tylenol Tab) 650 mg Q4H PRN PO 06/04/17 03:45 07/04/17 03:44 06/04/17 23:30 650 MG Al Hydrox/Mg Hydrox/Simethicone (Maalox Max Susp) 15 ml Q4H PRN PO 06/04/17 03:45 07/04/17 03:44 Ondansetron HCl (Zofran Inj) 4 mg Q6H PRN IV 06/04/17 03:45 07/04/17 03:44 Polyethylene (Miralax Powder Packet) 17 gm DAILY PRN PO 06/04/17 03:45 07/04/17 03:44 Piperacillin Sod/ Tazobactam Sod 4.5 gm/Dextrose 120 ml @ 30 mls/hr Q8H IV 06/04/17 06:00 06/11/17 05:59 06/09/17 06:09 30 MLS/HR Miscellaneous Information (Consult) 1 UD PRN N/A 06/04/17 03:45 07/04/17 03:44 Albuterol/ Ipratropium (Duoneb) 3 ml Q6H PRN INH 06/04/17 03:45 07/04/17 03:44 Hydralazine HCl (HydrALAZINE INJ) 10 mg Q6H PRN IV. 06/04/17 14:15 07/04/17 11:29 Miscellaneous Information (Consult Glycemic Management Pharmacy) 1 UD PRN N/A 06/04/17 14:48 07/04/17 14:47 Enteral Nutritional Formula (Prosource No Carb) 30 ml TID PO 06/04/17 21:00 07/04/17 20:59 06/09/17 09:52 30 ML Bumetanide 2 mg/ Syringe 8 ml @ 4 mls/min DAILY@09,17 IV 06/04/17 18:00 07/04/17 17:59 Future Hold 06/05/17 16:54 4 MLS/MIN Carvedilol (Coreg Tab) 25 mg BID PO 06/04/17 21:00 07/04/17 20:59 06/09/17 09:49 25 MG Hydralazine HCl (Apresoline Tab) 50 mg TID PO 06/04/17 21:00 07/04/17 20:59 06/09/17 09:49 50 MG Iron Sucrose 200 mg/Sodium Chloride 110 ml @ 220 mls/hr Q2D@1300 IV 06/05/17 13:00 06/13/17 16:00 06/07/17 13:40 220 MLS/HR Sodium Bicarbonate (Sodium Bicarbonate Tab) 650 mg BID PO 06/07/17 20:00 07/07/17 19:59 06/09/17 09:50 650 MG Calcium Carbonate (Tums Chew Tab) 500 mg AC PRN PO 06/07/17 09:00 07/07/17 08:59 Insulin Aspart (novoLOG ASPART) SLIDING SCALE G... HS SC 06/08/17 22:00 07/08/17 21:59 06/08/17 22:11 15 UNITS Insulin Aspart (novoLOG ASPART) SLIDING SCALE G..Mary AC SC 06/08/17 11:00 07/08/17 10:59 06/09/17 09:46 25 UNITS Insulin Glargine (Lantus Solostar Pen) 35 units BID SC 06/09/17 08:20 07/09/17 08:19 06/09/17 09:47 35 UNITS Impression (1) MICHAEL (acute kidney injury) (2) Hyperkalemia (3) Volume overload (4) Lymphedema (5) Anemia (6) Pneumonia (7) Hypertension (8) Diabetes Ventura is a 36-year-old male with diabetic nephropathy. He was admitted with pneumonia. Flu swab was negative and he was started empirically on vancomycin and Zosyn. MICHAEL is consistent with multifactorial ATN superimposed on advanced diabetic nephropathy. The patient was taking losartan and ibuprofen at home. He is hypervolemic with chronic persistent lower extremity lymphedema and possible superimposed cellulitis. Diabetes and hypertension have both been poorly controlled. These are complicated by nephropathy, peripheral neuropathy and retinopathy. After discussing volume status and current clinical picture in detail, Ventura expressed understanding of the potential role for renal replacement therapy and the current role of diuretics. We will continue Bumex to encourage a negative fluid balance while monitoring renal function. If kidney parameters do not continue to show evidence of renal recovery, the patient understands that hemodialysis is the next step in management. Recommendations MICHAEL/CKD: -- Bumex 2 mg twice daily -- Monitor metabolic profile daily -- Renal diet -- Continue to avoid ROSA MARIA/ARB and NSAIDS -- Current medications are appropriate for renal function Hyponatremia: -- Hypervolemic Metabolic acidosis: -- PO NaHCO3 650 TID Anemia: -- Repeat CBC tomorrow AM -- Continue Venofer -- Epogen [id number] x 1 dose given on 06/04/2017 Hypertension --Carvedilol 25 mg twice daily Lymphedema: -- Feet elevation, compression therapy and diuresis
[2017-06-09] MEDS: IRON SUCROSE INJ 200 MG in SODIUM CHLORIDE 0.9% 100ML 100 ML IV SCH (13:50)
[2017-06-09 14:30] VITALS: BP 155/81; PULSE 80; TEMP 37.2; O2SAT 97
--- NOTE | 2017-06-09 15:27 | Pharmacy Progress Note ---
Pharmacy Glycemic Short Note 2 Date of Service Jun 09, 2017. OUTPATIENT ANTIDIABETIC REGIMEN: - poor compliance * Toujeo 60-80 units qHS * Novolog 40 units with meals ASSESSMENT: 06/08/17 * Mr. Snell received 178 units of insulin yesterday * No changes to causes of insulin resistance * He had a low BSG of 61 overnight, which was treated with chocolate milk, eldon crackers, and PB. The low could have been as a result of either the Novolog at bedtime or the Lantus. In addition, the Novolog doses may have been stacked yesterday because the doses in the afternoon were given @ 1500, 1800 and 2100. * Will plan to slightly reduce the basal and loosen both CF/CR for HS dose of Novolog only 06/09/17 * Mr. Snell ended up having high BSGs overnight and have sustained today * I have increased his basal back to 35 units BID but hesitant to tighten the CF /CR back overnight d/t recent lows * I confirmed with the nurse that the patient is not snacking b/t meals * Novolog w/ breakfast not given until ~10 this AM so pre-lunch BSG artificially high * Will plan to continue same CF/CR but add an overnight accucheck should he remain hyperglycemic PLAN FOR INPATIENT GLYCEMIC CONTROL: * Basal insulin * Increase back to Lantus 35 units SQ BID * Bolus insulin * NovoLog per scale ACHS or Q6hrs while NPO + 0200 check to evaluate for recurrent hypoglycemia and/or hyperglycemia * Goal Range: Low 110 mg/dL - High 140 mg/dL * Correction Factor: 9 mg/dL/unit, 10 at HS * Nutritional / Prandial insulin per carb ratio of 1 unit per 2 grams CHO consumed, 3 at HS
[2017-06-09] MEDS: BUMETANIDE 1 MG TAB PO SCH (18:24)
--- NOTE | 2017-06-09 20:23 | PROGRESS NOTE ---
DATE: 06/09/2017 HISTORY OF PRESENT ILLNESS: Mr. Snell is a morbidly obese 36-year-old white male with a history of longstanding type 1 diabetes mellitus, hypertension, chronic anemia, chronic lower extremity lymphedema, and chronic kidney disease who was admitted acutely on 06/04/2017 with fever, chills, cough, and shortness of breath. He appeared to have a pneumonia, and unfortunately, he has developed worsening renal function with mild hyperkalemia. The patient is currently on IV Levaquin and IV Zosyn for a suspected pneumonia, and these antibiotics should cover potential cellulitis in his legs. His electrolytes are gradually improving. They are still very edematous, but they are no longer weeping. The patient denies any shortness of breath, cough, sputum production, fever, or chills. His breathing appears to be at baseline. His renal function has remained stable overnight. Creatinine today is 4.48 mg/dL, and he remains anemic with a hemoglobin of 8.0. The patient offers no other complaints or concerns. He has been in discussion with [facility] sleeve setter regarding future need for renal replacement therapy. He seems to be accepting of this at this point. PHYSICAL EXAMINATION: VITAL SIGNS: Temperature is 37.2 degrees Celsius, pulse 80 and regular, respiratory rate 16 and unlabored, blood pressure is 155/81, SpO2 is 97% on room air. I and O's positive 515 mL over the past 24 hours. GENERAL: The patient is in no acute distress. HEENT: Head is atraumatic, normocephalic. EOMs intact. Sclerae are anicteric. Facies symmetric. No perioral cyanosis. Mucous membranes moist. NECK: Without JVD. Carotid upstrokes +2 bilaterally without bruits. CHEST AND LUNGS: Clear to auscultation throughout all lung blake, no wheezes or rales, or rhonchi. CARDIOVASCULAR: S1 and S2 are regular without obvious murmur, gallop or rub. ABDOMINAL EXAM: Bowel sounds present. EXTREMITIES: With +4 pitting edema at the level of the lower abdomen. Lower legs are dressed. NEUROLOGIC: The patient is awake, alert and oriented. Pleasant and cooperative. Answers questions appropriately. Speech is clear. Normal movement in all 4 extremities. LABORATORIES: White blood cell count is 5.60. Hemoglobin 8.0 g/dl, hematocrit 23.1%. Platelet count 226,000. Sodium is 129 mmol/L, potassium 3.8 mmol/L, BUN 81 mg/dL. Creatinine is 4.48 mg/dL. Point of care glucose 178 mg/dL. ASSESSMENT: 1. Acute on chronic renal insufficiency, likely secondary to acute tubular necrosis -- management as per nephrology. 2. Hyperkalemic resolved. 3. Uncontrolled type 1 diabetes mellitus with diabetic nephropathy. 4. Chronic leg edema with dermatitis. Legs are no longer weeping. 5. Hypertension. 6. Pneumonia on admission, lungs are currently clear. 7. Anemia secondary to renal disease. 8. Morbid obesity. PLAN: 1. Continue Coreg 25 mg b.i.d. 2. Continue Hydralazine 50 mg t.i.d. 3. Continue Atorvastatin 80 mg daily. 4. Continue IV Zosyn q. 8 hours. 5. Elevate legs when off of them. 6. Continue dressing to legs. 7. Ongoing efforts at weight loss. The patient has been following with Dr. Bales regarding weight loss. 8. Management of hypertension, renal failure, and anemia as per nephrology. 9. Most likely if patient's creatinine remains stable or improves overnight, he has completed 5 days of IV antibiotics, hopefully, he will be able to go home tomorrow on oral antibiotics. 10. Bumex was restarted by nephrology. This should also help with his leg edema. 11. Anticipate discharge within the next 24-48 hours. [facility]
[2017-06-10 00:33] VITALS: BP 146/83; PULSE 78; TEMP 36.7; O2SAT 95
[2017-06-10] MEDS ORDERED: INSULIN ASPART 100 UNITS/ML 3 ML PEN SC ONE (02:00)
[2017-06-10] MEDS: PIPERACILL/TAZOBAC IV 4.5 GM in DEXTROSE 5% 100ML 100 ML IV SCH ×2 (06:13→14:00)
[2017-06-10] MEDS: LEVOTHYROXINE 50 MCG TAB PO SCH (06:13)
[2017-06-10] MEDS: HEPARIN SOD 5000 UNIT/0.5 ML CARP SQ SCH ×2 (06:13→14:00)
[2017-06-10 07:06] VITALS: BP 162/92; PULSE 81; TEMP 36.6; O2SAT 97
[2017-06-10 07:20] LABS: HEMATOCRIT 21.2 % (42-52); HEMOGLOBIN 7.5 g/dL (14.0-18.0); MEAN CELL VOLUME 81.9 fL (80-100); MEAN CORPUSCULAR HGB CONC 35.4 g/dl (32-36); MEAN PLATELET VOLUME 9.6 fL (7.4-10.4); PLATELET COUNT 220 K/uL (130-400); RED CELL DISTRIBUTION WIDTH CV 12.9 % (11.5-14.5); WHITE BLOOD COUNT 5.38 K/uL (4.8-10.8)
[2017-06-10 07:47] LABS: ALBUMIN 1.9 gm/dl (3.4-5.0); CALCIUM 8.6 mg/dl (8.5-10.1); CREATININE 4.24 mg/dl (0.60-1.40); PHOSPHORUS 6.8 mg/dl (2.5-4.9); POTASSIUM 3.5 mmol/L (3.5-5.1)
[2017-06-10] MEDS ORDERED: INSULIN GLARGINE SOLOSTAR 100 UNITS/ML 3 ML PEN SC ONE ×2 (08:00→17:00)
[2017-06-10] MEDS: SODIUM BICARBONATE 650 MG TAB PO SCH (08:31)
[2017-06-10] MEDS: ATORVASTATIN 40 MG TAB PO SCH (08:31)
[2017-06-10] MEDS: PROSOURCE NOCARB 30ML/PKT PO SCH ×2 (08:31→14:06)
[2017-06-10] MEDS: BUMETANIDE 1 MG TAB PO SCH (08:31)
[2017-06-10] MEDS: CARVEDILOL 12.5 MG TAB PO SCH (08:32)
[2017-06-10] MEDS: GABAPENTIN 300 MG CAP PO SCH ×2 (08:32→14:06)
[2017-06-10] MEDS: INSULIN ASPART 100 UNITS/ML 3 ML PEN SC SCH ×2 (08:37→12:19)
--- NOTE | 2017-06-10 09:16 | Progress Note ---
Subjective Date of Service: Jun 10, 2017. Problem List Medical Problems: (1) Anemia Status: Acute (2) Cellulitis and abscess of leg Status: Acute (3) Localized swelling of both lower legs Status: Acute (4) Pneumonia Status: Acute (5) Sepsis Status: Acute Objective Vital Signs Date Time Temp Pulse Resp B/P (MAP) Pulse Ox O2 Delivery O2 Flow Rate FiO2 06/10/17 08:00 Room Air 06/10/17 07:06 36.6 81 18 162/92 (115) 97 Room Air 06/10/17 00:33 36.7 78 22 146/83 (104) 95 Room Air 06/10/17 00:00 Room Air 06/09/17 20:00 Room Air 06/09/17 16:00 Room Air 06/09/17 14:30 37.2 80 16 155/81 (105) 97 Room Air Laboratory Results Last 24 Hours Test 06/09/17 11:51 06/09/17 16:25 06/09/17 21:54 06/10/17 02:13 Bedside Glucose 265 mg/dl 178 mg/dl 116 mg/dl 105 mg/dl Test 06/10/17 06:34 06/10/17 07:58 White Blood Count 5.38 K/uL Red Blood Count 2.59 M/uL Hemoglobin 7.5 g/dL Hematocrit 21.2 % Mean Corpuscular Volume 81.9 fL Mean Corpuscular Hemoglobin 29.0 pg Mean Corpuscular Hemoglobin Concent 35.4 g/dl RDW Standard Deviation 39.0 fL RDW Coefficient of Variation 12.9 % Platelet Count 220 K/uL Mean Platelet Volume 9.6 fL Sodium Level 134 mmol/L Potassium Level 3.5 mmol/L Chloride Level 100 mmol/L Carbon Dioxide Level 21 mmol/L Anion Gap 13.0 mmol/L Blood Urea Nitrogen 94 mg/dl Creatinine 4.24 mg/dl Est Creatinine Clear Calc Drug Dose 33.5 ml/min Estimated GFR () 19.6 Estimated GFR (Non- 16.9 BUN/Creatinine Ratio 22.1 Random Glucose 86 mg/dl Calcium Level 8.6 mg/dl Phosphorus Level 6.8 mg/dl Albumin 1.9 gm/dl Bedside Glucose 108 mg/dl Assessment and Plan Acute on chronic renal insufficiency, likely secondary to acute tubular necrosis, management as per nephrology. Hyperkalemic resolved. Uncontrolled type 2 diabetes mellitus with diabetic nephropathy, typically on tojeo, now on ssi Chronic leg edema, with dermatitis. Legs are no longer weeping. Hypertension. coreg, hydralazine, secondary cardiovascular risk mediated by atorvostatin Pneumonia on admission, Zosyn Anemia of chronic disease secondary to renal disease. Morbid obesity. May impact lower extremity venous stasis and management
--- NOTE | 2017-06-10 10:42 | Nephrology Progress Note ---
Nephrology Progress Note Date of Service Jun 10, 2017. Chief Complaint MICHAEL/CKD Subjective No acute events overnight. No complaints this morning. Ventura would like to be discharged home today. He states that he feels well. He is able to follow up closely in the clinic. Ventura denies any nausea. Appetite is good. He denies chest pain, palpitations , lightheadedness or dizziness. He denies any evidence of blood in his stool. Review of Systems A complete review of systems was performed. Pertinent positives are noted above. All other systems are negative. Vital Signs Last 8 Hrs Date Time Temp Pulse Resp B/P (MAP) Pulse Ox O2 Delivery O2 Flow Rate FiO2 06/10/17 08:00 Room Air 06/10/17 07:06 36.6 81 18 162/92 (115) 97 Room Air Last Recorded Weight Weight (Kilograms): 148.000 Physical Exam General Appearance: no apparent distress, + obese Head: normocephalic, atraumatic Eyes: normal inspection, sclerae normal ENT: normal ENT inspection, pharynx normal Neck: supple, no JVD Respiratory/Chest: lungs clear, no respiratory distress, no accessory muscle use, + decreased breath sounds Cardiovascular: regular rate, rhythm, no gallop, no murmur Back: no CVA tenderness Abdomen/GI: non tender, soft Extremities/Musculoskelatal: normal inspection, + pedal edema, + swelling Neurologic/Psych: alert, normal mood/affect Social History Smoking Status: Never smoker Drug Use: none Marital Status: single Housing Status: lives with family Occupation: unemployed Laboratory Results Past 24 Hours 06/10/17 06:34 06/10/17 06:34 Test 06/09/17 11:51 06/09/17 16:25 06/09/17 21:54 06/10/17 02:13 Bedside Glucose 265 mg/dl (70-99) 178 mg/dl (70-99) 116 mg/dl (70-99) 105 mg/dl (70-99) Test 06/10/17 06:34 06/10/17 07:58 Red Blood Count 2.59 M/uL (4.7-6.1) Mean Corpuscular Volume 81.9 fL (80-100) Mean Corpuscular Hemoglobin 29.0 pg (25-34) Mean Corpuscular Hemoglobin Concent 35.4 g/dl (32-36) RDW Standard Deviation 39.0 fL (36.4-46.3) RDW Coefficient of Variation 12.9 % (11.5-14.5) Mean Platelet Volume 9.6 fL (7.4-10.4) Anion Gap 13.0 mmol/L (3-11) Est Creatinine Clear Calc Drug Dose 33.5 ml/min Estimated GFR () 19.6 Estimated GFR (Non- 16.9 BUN/Creatinine Ratio 22.1 (10-20) Calcium Level 8.6 mg/dl (8.5-10.1) Phosphorus Level 6.8 mg/dl (2.5-4.9) Albumin 1.9 gm/dl (3.4-5.0) Bedside Glucose 108 mg/dl (70-99) Allergies Coded Allergies: Influenza Vaccines (Verified Allergy, Intermediate, UNKNOWN, 06/04/17) Lisinopril (Verified Allergy, Intermediate, COUGH, 06/04/17) Medications Current Inpatient Medications Medications (Trade) Dose Ordered Sig/Urvashi Route Start Time Stop Time Status Last Admin Dose Admin Atorvastatin Calcium (Lipitor Tab) 80 mg DAILY PO 06/04/17 09:00 07/04/17 08:59 06/10/17 08:31 80 MG Gabapentin (Neurontin Cap) 300 mg TID PO 06/04/17 09:00 07/04/17 08:59 06/10/17 08:32 300 MG Levothyroxine Sodium (Synthroid Tab) 50 mcg DAILYBB PO 06/04/17 06:00 07/04/17 06:59 06/10/17 06:13 50 MCG Heparin Sodium (Porcine) (Heparin Sq 5000 Unit/0.5ml) 5,000 unit Q8 SQ 06/04/17 07:15 07/04/17 07:14 06/10/17 06:13 5,000 UNIT Acetaminophen (Tylenol Tab) 650 mg Q4H PRN PO 06/04/17 03:45 07/04/17 03:44 06/04/17 23:30 650 MG Al Hydrox/Mg Hydrox/Simethicone (Maalox Max Susp) 15 ml Q4H PRN PO 06/04/17 03:45 07/04/17 03:44 Ondansetron HCl (Zofran Inj) 4 mg Q6H PRN IV 06/04/17 03:45 07/04/17 03:44 Polyethylene (Miralax Powder Packet) 17 gm DAILY PRN PO 06/04/17 03:45 07/04/17 03:44 Piperacillin Sod/ Tazobactam Sod 4.5 gm/Dextrose 120 ml @ 30 mls/hr Q8H IV 06/04/17 06:00 06/11/17 05:59 06/10/17 06:13 30 MLS/HR Miscellaneous Information (Consult) 1 ea UD PRN N/A 06/04/17 03:45 07/04/17 03:44 Albuterol/ Ipratropium (Duoneb) 3 ml Q6H PRN INH 06/04/17 03:45 07/04/17 03:44 Hydralazine HCl (HydrALAZINE INJ) 10 mg Q6H PRN IV. 06/04/17 14:15 07/04/17 11:29 Miscellaneous Information (Consult Glycemic Management Pharmacy) 1 UD PRN N/A 06/04/17 14:48 07/04/17 14:47 Enteral Nutritional Formula (Prosource No Carb) 30 ml TID PO 06/04/17 21:00 07/04/17 20:59 06/10/17 08:31 30 ML Bumetanide 2 mg/ Syringe 8 ml @ 4 mls/min DAILY@09,17 IV 06/04/17 18:00 07/04/17 17:59 Future Hold 06/05/17 16:54 4 MLS/MIN Carvedilol (Coreg Tab) 25 mg BID PO 06/04/17 21:00 07/04/17 20:59 06/10/17 08:32 25 MG Hydralazine HCl (Apresoline Tab) 50 mg TID PO 06/04/17 21:00 07/04/17 20:59 06/10/17 08:31 50 MG Iron Sucrose 200 mg/Sodium Chloride 110 ml @ 220 mls/hr Q2D@1300 IV 06/05/17 13:00 06/13/17 16:00 06/09/17 13:50 220 MLS/HR Sodium Bicarbonate (Sodium Bicarbonate Tab) 650 mg BID PO 06/07/17 20:00 07/07/17 19:59 06/10/17 08:31 650 MG Calcium Carbonate (Tums Chew Tab) 500 mg AC PRN PO 06/07/17 09:00 07/07/17 08:59 Insulin Aspart (novoLOG ASPART) SLIDING SCALE G... HS SC 06/08/17 22:00 07/08/17 21:59 06/09/17 22:09 12 UNITS Insulin Aspart (novoLOG ASPART) SLIDING SCALE G... AC SC 06/08/17 11:00 07/08/17 10:59 06/10/17 08:37 31 UNITS Bumetanide (Bumex Tab) 2 mg BID17 PO 06/09/17 17:00 07/09/17 16:59 06/10/17 08:31 2 MG Insulin Glargine (Lantus Solostar Pen) 47 units QDD ONCE SC 06/10/17 17:00 06/10/17 17:01 Insulin Glargine (Lantus Solostar Pen) 67 units PM SC 06/11/17 20:00 07/11/17 19:59 Impression (1) MICHAEL (acute kidney injury) (2) Hyperkalemia (3) Volume overload (4) Lymphedema (5) Anemia (6) Pneumonia (7) Hypertension (8) Diabetes Ventura is a 36-year-old male with diabetic nephropathy. He was admitted with pneumonia. Flu swab was negative and he was started empirically on vancomycin and Zosyn. MICHAEL is consistent with multifactorial ATN superimposed on advanced diabetic nephropathy. The patient was taking losartan and ibuprofen at home. He is hypervolemic with chronic persistent lower extremity lymphedema and possible superimposed cellulitis. Diabetes and hypertension have both been poorly controlled. These are complicated by nephropathy, peripheral neuropathy and retinopathy. After discussing volume status and current clinical picture in detail, Ventura expressed understanding of the potential role for renal replacement therapy and the current role of diuretics. We will continue Bumex to encourage a negative fluid balance while monitoring renal function. If kidney parameters do not continue to show evidence of renal recovery, the patient understands that hemodialysis is the next step in management. He will follow up closely in the clinic with Dr. Miranda. For anemia, an additional [id number] Epogen was provided today. He appears asymptomatic. No evidence of bleeding noted. I spoke with Emily Minarcheck, PAC this morning. Outpatient follow up with vascular surgery in the near future will be coordinated. Recommendations MICHAEL/CKD: -- Bumex 2 mg twice daily -- Repeat metabolic profile within the next 4 days -- Renal diet -- Continue to avoid ROSA MARIA/ARB and NSAIDS -- Current medications are appropriate for renal function -- Will ask [place] [facility] [place] in the near future -- Vascular follow up with Dr. Combs for vein mapping Hyponatremia: -- Hypervolemic, improving with diuretics Metabolic acidosis: -- PO NaHCO3 650 TID Anemia: -- Receiving Venofer -- Epogen [id number] x 1 dose given on 06/04/2017 -- Monitor with repeat metabolic profile Hypertension --Carvedilol 25 mg twice daily Lymphedema: -- Feet elevation, compression therapy and diuresis Pneumonia: -- Clinically improved with Zosyn
--- NOTE | 2017-06-10 10:50 | Pharmacy Progress Note ---
Pharmacy Glycemic Short Note 2 Date of Service Jun 10, 2017. OUTPATIENT ANTIDIABETIC REGIMEN: - poor compliance * Toujeo 60-80 units qHS * Novolog 40 units with meals ASSESSMENT: 06/08/17 * Mr. Snell received 178 units of insulin yesterday * No changes to causes of insulin resistance * He had a low BSG of 61 overnight, which was treated with chocolate milk, eldon crackers, and PB. The low could have been as a result of either the Novolog at bedtime or the Lantus. In addition, the Novolog doses may have been stacked yesterday because the doses in the afternoon were given @ 1500, 1800 and 2100. * Will plan to slightly reduce the basal and loosen both CF/CR for HS dose of Novolog only 06/09/17 * Mr. Snell ended up having high BSGs overnight and have sustained today * I have increased his basal back to 35 units BID but hesitant to tighten the CF /CR back overnight d/t recent lows * I confirmed with the nurse that the patient is not snacking b/t meals * Novolog w/ breakfast not given until ~10 this AM so pre-lunch BSG artificially high * Will plan to continue same CF/CR but add an overnight accucheck should he remain hyperglycemic 06/10/17 * Mr. Snell received 191 units of insulin yesterday, with BSGs ranging from 86- 265 mg/dL over the past 24 hours * BSGs have improved from yesterday AM: 265 -> 178 -> 116 -> 105 -> 108 * He was on the lower side overnight so will plan to back off on basal just slightly. 70 units seemed to be too much (but may have also been from HS correctional a few days ago) and 64 units seems to be not enough, so will adjust to 67 units total * In addition, patient to possibly be discharged in next 1-2 days so will work back towards PM dosing of basal insulin PLAN FOR INPATIENT GLYCEMIC CONTROL: * Basal insulin * 06/10: Lantus 20 units this AM, 47 units with dinner (67 units total) * 06/11: Start Lantus 67 units qPM - for easier transition back to PM Toujeo * Bolus insulin * NovoLog per scale ACHS or Q6hrs while NPO (continue with 0200 check to evaluate for recurrent hypoglycemia and/or hyperglycemia) * Goal Range: Low 110 mg/dL - High 140 mg/dL * Correction Factor: 9 mg/dL/unit, 10 at HS * Nutritional / Prandial insulin per carb ratio of 1 unit per 2 grams CHO consumed, 3 at HS DISCHARGE RECOMMENDATIONS: * A1c elevated but patient does check BSGs, runs out of Novolog at times * Continue Toujeo 60-80 units qHS (patient reportedly takes higher dose when he runs out of Novolog) * Continue Novolog 40 units TID * SMBG at least 2x/day - patient apparently does not check at all right now
[2017-06-10] MEDS ORDERED: APR50 PO (13:32)
[2017-06-10] MEDS ORDERED: AZIT250T PO (13:32)
[2017-06-10] MEDS ORDERED: CRG125 PO (13:32)
[2017-06-10] MEDS ORDERED: BUME2TAB3 PO (13:32)
[2017-06-10] MEDS ORDERED: [UNRECOGNIZED DRUG - OTHER] IV (13:32)
--- NOTE | 2017-06-10 13:33 | Discharge Instructions ---
Discharge Instructions Date of Service Jun 10, 2017. Admission Reason for Admission: CHF Discharge Discharge Diagnosis / Problem: pneumonia, kideny disease Discharge Goals Goal(s): Diagnostic testing, Therapeutic intervention Activity Recommendations Activity Limitations: as noted below Lifting Limitations: gradually increase as tolerated .Acute on chronic renal insufficiency, likely secondary to acute tubular necrosis, influenced by diabetes will have out pt lab check and follow up per nephrology. Hyperkalemic resolved. Uncontrolled type 2 diabetes mellitus with diabetic nephropathy, typically on tojeo, will recommend close diet control and resume home regime with follow up with outpt diabetic management doctor Chronic leg edema, with dermatitis. continue with wraps and follow up with wound care as previous Hypertension. meds changed to coreg, hydralazine by kidney doctor stopping home meds, secondary cardiovascular risk mediated by atorvastatin Pneumonia on admission, Zosyn--> changed to azithromycin as outpt Anemia of chronic disease secondary to renal disease. Current Hospital Diet Patient's current hospital diet: Renal Diet, Diabetes Type 2 Diet Discharge Diet Recommended Diet: Low Sodium Diet (2gm Na), Diabetes Type 2 Diet, Renal Diet Pending Studies Studies pending at discharge: no Laboratory Results Hemoglobin A1c Test 05/08/17 09:53 Range/Units Estimated Average Glucose 367 mg/dl Hemoglobin A1c 14.4 H 4.5-5.6 % Lipid Panel Test 05/08/17 09:53 Range/Units Triglycerides Level 221 H 0-150 mg/dl Cholesterol Level 209 H 0-200 mg/dl HDL Cholesterol 39 mg/dl Cholesterol/HDL Ratio 5.4 LDL Cholesterol, Calculated 126 mg/dl Medical Emergencies . Who to Call and When: Medical Emergencies: If at any time you feel your situation is an emergency, please call 911 immediately. . Non-Emergent Contact Non-Emergency issues call your: [employer] Engineering Division Call Non-Emergent contact if: temperature is above 101, your pain is unusual for you . . "Provider Documentation" section prepared by Jamie Lr. . VTE Core Measure Inpt VTE Proph given/why not?: Unfractionated heparin SQ
--- NOTE | 2017-06-10 13:41 | Discharge Summary ---
Discharge Summary Date of Service Jun 10, 2017. Discharge Summary Admission Date: Jun 04, 2017 at 03:51 Discharge Date: Jun 10, 2017 Discharge Disposition: Home with services Principal Diagnosis: pneumonia, lower extremity swelling needing leg wraps, Problems/Secondary Diagnoses: acute on chronc renal failure Medication Reconciliation New Medications: Azithromycin (Zithromax) 250 Mg Tab 250 MG PO DAILY, #6 TAB 2 pills on day one 1 pill on other days [labs] () 1 TEST 1 TUBE IV UD CBC and PRP 06/12, 06/14, 06/[address] Shamar Reed acute renal failure Bumetanide (Bumex) 2 Mg Tab 2 MG PO BID, #60 TAB 6 Refills Carvedilol (Carvedilol) 12.5 Mg Tab 25 MG PO BID, #60 TAB 6 Refills Hydralazine HCl (Hydralazine HCl) 50 Mg Tab 50 MG PO TID, #90 TAB 6 Refills Continued Medications: Atorvastatin (Lipitor) 80 Mg Tab 80 MG PO DAILY, TAB Gabapentin (Neurontin) 300 Mg Cap 300 MG PO TID 300 MG IN THE MORNING, 300 MG IN THE AFTERNOON, AND 900 MG AT NIGHT. Insulin Aspart (Novolog Flexpen) 100 Units/Ml Inj UNITS SQ AC PER SLIDING SCALE Insulin Glargine (Toujeo Solostar) 300 Unit/Ml Inj UNITS SQ HS PER SLIDING SCALE Levothyroxine Sodium (Levothyroxine Sodium) 50 Mcg Tab 50 MCG PO DAILY, 3 Refills Discontinued Medications: Amlodipine (Norvasc) 5 Mg Tab 5 MG PO BID, TAB Bumetanide (Bumex) 1 Mg Tab Unknown Dose PO DAILY, TAB Levofloxacin (Levaquin) 500 Mg Tab 1 TAB PO Q2D for 30 Days, #15 TAB 1 Refill Losartan Potassium (Cozaar) 100 Mg Tab 100 MG PO DAILY Discharge Exam Review of Systems: Constitutional: No fever, No chills Cardiovascular: + edema, No chest pain Abdomen: No pain, No nausea, No vomiting, No diarrhea Psychiatric: No depression symptoms, No anxiety Physical Exam: General Appearance: + mild distress, + obese Respiratory/Chest: chest non-tender, lungs clear, normal breath sounds Cardiovascular: regular rate, rhythm, no murmur Neurologic/Psychiatric: alert, oriented x 3 Hospital Course Acute on chronic renal insufficiency, likely secondary to acute tubular necrosis, will be home and have out pt management as per nephrology following labs 06/12,,. Hyperkalemic resolved. Uncontrolled type 2 diabetes mellitus with diabetic nephropathy, resume tojeo with more dietary oversight Chronic leg edema, with dermatitis. Legs are no longer weeping.will follow up with wound care Hypertension. changed to coreg, hydralazine, secondary cardiovascular risk mediated by atorvostatin Pneumonia on admission, Zosyn--> home on azithromycin Anemia of chronic disease secondary to renal disease. Morbid obesity. May impact lower extremity venous stasis and management Total Time Spent: Greater than 30 minutes This includes examination of the patient, discharge planning, medication reconciliation, and communication with other providers. Discharge Instructions Please refer to the electronic Patient Visit Report (Discharge Instructions) for additional information. Additional Copies To Zachary Ibanez D.O.
[2017-06-10 13:50] VITALS: BP 162/92; PULSE 81; TEMP 36.6; O2SAT 97
[2017-06-11] MEDS ORDERED: INSULIN ASPART 100 UNITS/ML 3 ML PEN SC ONE (02:00)
[2017-06-11] MEDS ORDERED: INSULIN GLARGINE SOLOSTAR 100 UNITS/ML 3 ML PEN SC SCH (20:00)
== END 2017-06-10 14:44 | disposition home health service (06) | DRG 193 ==
LOC: EDBD 23:28 → C.EDC 23:30 → C.2T 06-04 03:51 → ENRESERV 06-04 04:08 → CMPBEDREQ 06-04 05:16 → ENRESERV 06-06 13:55 → C.MS4W 06-06 17:55
PROVIDERS: ADMIT Internal Medicine; ATTEND Internal Medicine
DX: J18.9 Pneumonia, unspecified organism (principal); N17.0 Acute kidney failure with tubular necrosis; L97.909 Non-pressure chronic ulcer of unspecified part of unspecified lower leg with unspecified severity; E87.1 Hypo-osmolality and hyponatremia; E87.2 Acidosis; L03.115 Cellulitis of right lower limb; L03.116 Cellulitis of left lower limb; Z68.43 Body mass index [BMI] 50.0-59.9, adult; I13.0 Hypertensive heart and chronic kidney disease with heart failure and stage 1 through stage 4 chronic kidney disease, or unspecified chronic kidney disease; E10.622 Type 1 diabetes mellitus with other skin ulcer; I50.9 Heart failure, unspecified; E10.21 Type 1 diabetes mellitus with diabetic nephropathy; Z79.4 Long term (current) use of insulin; D63.1 Anemia in chronic kidney disease; N18.3 Chronic kidney disease, stage 3 (moderate); E78.5 Hyperlipidemia, unspecified; E10.40 Type 1 diabetes mellitus with diabetic neuropathy, unspecified; L30.9 Dermatitis, unspecified; Z83.1 Family history of other infectious and parasitic diseases; Z88.7 Allergy status to serum and vaccine; Z88.8 Allergy status to other drugs, medicaments and biological substances; E87.5 Hyperkalemia; E66.01 Morbid (severe) obesity due to excess calories; I25.10 Atherosclerotic heart disease of native coronary artery without angina pectoris; B95.61 Methicillin susceptible Staphylococcus aureus infection as the cause of diseases classified elsewhere

== ENCOUNTER → 2017-06-12 | Outpatient (CLI) | payer OTHER ==
[~2017-06-12] MED LIST changes: -AMLO-110 PO; +APR50 PO; +AZIT250T PO; -BUME1TAB PO; +BUME2TAB3 PO; +CRG125 PO; -LEVO1TAB34 PO; -LOSA1TAB38 PO; +[UNRECOGNIZED DRUG - OTHER] IV
[2017-06-12 18:12] LABS: HEMOGLOBIN 8.5 g/dL (14.0-18.0); MEAN CELL VOLUME 83.3 fL (80-100); MEAN CORPUSCULAR HEMOGLOBIN 28.3 pg (25-34); MEAN PLATELET VOLUME 9.2 fL (7.4-10.4); PLATELET COUNT 303 K/uL (130-400); RED CELL DISTRIBUTION WIDTH CV 12.9 % (11.5-14.5); RED CELL DISTRIBUTION WIDTH SD 39.2 fL (36.4-46.3); WHITE BLOOD COUNT 5.94 K/uL (4.8-10.8)
[2017-06-12 18:34] LABS: BLOOD UREA NITROGEN 63 mg/dl (7-18); CALCIUM 9.4 mg/dl (8.5-10.1); CARBON DIOXIDE 26 mmol/L (21-32); CREATININE 2.59 mg/dl (0.60-1.40); GLUCOSE 311 mg/dl (70-99); POTASSIUM 3.5 mmol/L (3.5-5.1); SODIUM 137 mmol/L (136-145)
== END | disposition home or self-care (01) ==
LOC: C.LABSPEC 10:38
PROVIDERS: ATTEND Internal Medicine
DX: N17.9 Acute kidney failure, unspecified (principal)

== ENCOUNTER → 2017-08-13 | Outpatient (CLI) | payer OTHER ==
[~2017-08-13] MED LIST changes: -AZIT250T PO
[2017-08-13 17:01] LABS: HEMATOCRIT 30.6 % (42-52); HEMOGLOBIN 10.5 g/dL (14.0-18.0); MEAN CELL VOLUME 82.3 fL (80-100); MEAN CORPUSCULAR HEMOGLOBIN 28.2 pg (25-34); MEAN CORPUSCULAR HGB CONC 34.3 g/dl (32-36); MEAN PLATELET VOLUME 11.1 fL (7.4-10.4); PLATELET COUNT 233 K/uL (130-400); RED CELL DISTRIBUTION WIDTH CV 13.3 % (11.5-14.5); RED CELL DISTRIBUTION WIDTH SD 40.4 fL (36.4-46.3); WHITE BLOOD COUNT 5.15 K/uL (4.8-10.8)
[2017-08-13 17:32] LABS: BLOOD UREA NITROGEN 68 mg/dl (7-18); CALCIUM 9.2 mg/dl (8.5-10.1); CARBON DIOXIDE 25 mmol/L (21-32); CREATININE 3.17 mg/dl (0.60-1.40); GLUCOSE 712 mg/dl (70-99); PHOSPHORUS 3.2 mg/dl (2.5-4.9); POTASSIUM 5.5 mmol/L (3.5-5.1); SODIUM 126 mmol/L (136-145); TRANSFERRIN 211 mg/dl (200-360)
[2017-08-14 06:27] LABS: HEMOGLOBIN A1C 11.9 % (4.5-5.6)
== END | disposition home or self-care (01) ==
LOC: C.LABBFT 11:28
PROVIDERS: ATTEND Internal Medicine Nephrology
DX: I12.9 Hypertensive chronic kidney disease with stage 1 through stage 4 chronic kidney disease, or unspecified chronic kidney disease (principal); D64.9 Anemia, unspecified; L97.909 Non-pressure chronic ulcer of unspecified part of unspecified lower leg with unspecified severity; N18.3 Chronic kidney disease, stage 3 (moderate); E55.9 Vitamin D deficiency, unspecified; E10.65 Type 1 diabetes mellitus with hyperglycemia; E10.22 Type 1 diabetes mellitus with diabetic chronic kidney disease

== ENCOUNTER 2019-01-14 12:09 | Inpatient (IN) ==
[2019-01-14] MEDS ORDERED: SODIUM CHLORIDE 0.9% 1000ML 1,000 ML IV SCH (13:15)
[2019-01-14 13:43] LABS: Hematocrit (blood only) 21.1 % (42-52); Hemoglobin 6.8 g/dL (14.0-18.0); Mean Corpuscular Hemoglobin 26.6 pg (25-34); Mean Corpuscular Hgb Conc 32.2 g/dL (32-36); Mean Corpuscular Volume 82.4 fL (80-100); Mean Platelet Volume 9.5 fL (7.4-10.4); Platelet Count 206 K/uL (130-400); RDW Coefficient of Variation 13.3 % (11.5-14.5); RDW Standard Deviation 39.8 fL (36.4-46.3); Red Blood Count 2.56 M/uL (4.7-6.1); White Blood Count 5.58 K/uL (4.8-10.8)
[2019-01-14 13:56] LABS: Basophils # (auto) 0.01 K/uL (0-0.2); Basophils % (auto) 0.2 %; Eosinophils # (auto) 0.21 K/uL (0-0.5); Eosinophils % (auto) 3.8 %; Immature Granulocytes # (auto) 0.01 K/uL (0.00-0.02); Immature Granulocytes % (auto) 0.2 %; Lymphocytes # (auto) 0.87 K/uL (1.2-3.4); Lymphocytes % (auto) 15.6 %; Monocytes # (auto) 0.66 K/uL (0.11-0.59); Monocytes % (auto) 11.8 %; Neutrophils # (auto) 3.82 K/uL (1.4-6.5); Neutrophils % (auto) 68.4 %; Ovalocytes 1+
[2019-01-14 13:58] LABS: Albumin Level 2.6 gm/dl (3.4-5.0); BUN Creatinine Ratio 21.5 (10-20); Calcium 9.3 mg/dl (8.5-10.1); Creatinine Clr Calc Pharmacy 41.2 ml/min; Est GFR (African American) 26.8; Est GFR (Non-African American) 23.1; Potassium 4.9 mmol/L (3.5-5.1)
[2019-01-14] MEDS ORDERED: SODIUM CHLORIDE 0.9% 250 ML IV PRN (14:01)
[2019-01-14 14:10] LABS: Albumin Globulin Ratio 0.6 (0.9-2); Bilirubin,Total 0.3 mg/dl (0.2-1); Globulin 4.3 gm/dl (2.5-4.0); Total Protein 6.9 gm/dl (6.4-8.2)
[2019-01-14] MEDS ORDERED: PANTOprazole 80 MG in DEXTROSE 5% 100 ML IV ONE (14:15)
[2019-01-14] MEDS: PANTOprazole 40 MG in DEXTROSE 5% 100 ML IV SCH ×2 (15:06→19:55)
[2019-01-14] MEDS ORDERED: PHARMACY GLYCEMIC MGMT CONSULT STA (16:52)
[2019-01-14] MEDS ORDERED: PHARMACY GLYCEMIC MGMT CONSULT PRN (17:04)
--- NOTE | 2019-01-14 17:11 | History & Physical Report ---
Date of Service January 14, 2019 Assessment & Plan (1) Anemia: - Hgb was 6.9 on 01/12, now decreased to 6.8; baseline hgb ~8-10 in setting of anemia of chronic disease, CKD stage III. - Concern for upper GI bleed -- FOBT is pending collection. - Will transfuse 2 units pRBCs and repeat CBC this evening. - Monitor H/H q6hr over next 24-48 hours. - Holding home ASA. (2) GI bleed: - Concern for upper GI bleed in setting of acute anemia. - FOBT is pending collection. - NPO except meds; IVFs at 80 cc/hr. - Continue PPI drip. - GI consulted for input. (3) Hypoglycemia: - BG 30 in the wound clinic, responded well to oral glucose/D5W amp. - Type I diabetic -- pharmacy consulted for glycemic management. - Pt. reports lows at home, states he manages them well. (4) Type 1 diabetes: - Most recent A1C was 9.8 in Apr 2018. - See above. (5) Dizziness: - Likely multi-factorial related to anemia and hypoglycemia. - Fall precautions. - PT/OT prior to discharge. (6) Diabetic peripheral neuropathy associated with type 1 diabetes mellitus: - Will continue Gabapentin 600 mg BID as prescribed. (7) Venous stasis ulcers of both lower extremities: - Follows with the wound clinic and ID; most recent wound culture on 12/31 showed Pseudomonas, coag neg Staph, Corynebacterium species. - Receiving daily Ceftazidime infusions in [facility]; will continue as prescribed. - Consulted ID & wound care nurse as inpatient. - Currently holding home Bumex 2 mg PO BID in setting of possible GI bleed & anemia; will monitor for worsening LE edema. (8) CKD stage 3 due to type 1 diabetes mellitus: - Creatinine is currently at baseline, will monitor. - Hold nephrotoxic meds. (9) High cholesterol: - Holding home statin in setting of GI bleed. - Can resume once pt. is tolerating PO diet. (10) Hypertension: - Continue Coreg and Losartan as prescribed. - Holding home Bumex. - BP has been elevated; continue to monitor. (11) Depression: - Continue home Cymbalta 90 mg daily as prescribed. (12) Hypothyroidism: - Continue Synthroid - converted to 25 mcg IV daily. - TSH was 4.7 in September 2018; will repeat in the AM. (13) Obesity: - BMI 48.9. - Encourage weight loss and exercise. (14) DVT prophylaxis: - SCDs; holding pharmacologic ppx in setting of acute bleed. Dispo: Med/surg with tele for evaluation of GI bleed and hypoglycemia. History of Present Illness Chief Complaint: Dizziness Primary Care Provider: Maki Peterson MD Mr. Snell is a 38 year old male with past medical history of Type I DM, CKD Stage III, Anemia of chronic disease, Obesity, HTN, HLD, Depression and venous stasis ulcers of both lower extremities who presented with dizziness. He has been receiving IV antibiotic infusions with Ceftazidime at [facility] per ID recs, most recent infusion was this morning. He was evaluated at the wound clinic following appointment -- pt. developed dizziness & confusion but denies syncopal episode Blood glucose was 30 and oral glucose/amp D5W administered to the patient. BG improved to >200. He denies LOC, chest pain, SOB, vision changes, headache, N/V, constipation or diarrhea. Hgb was 6.9 on labs from 01/12; pt. reports h/o anemia but has never had a colonoscopy or EGD. He has BMs every 2-3 days; denies melena, hematochezia at home. ER course: Hgb was 6.8; Hct 21.1. Creatinine is currently at baseline. Blood glucose was 70. Will admit for further work up of possible GI bleed and treatment of hyperglycemia. Allergies Allergy/AdvReac Type Severity Reaction Status Date / Time Influenza Virus Vaccines Allergy Intermediate UNKNOWN Verified 01/14/19 09:49 lisinopril Allergy Intermediate COUGH Verified 01/14/19 09:49 Home Medications Home Medications Medication Instructions Recorded Confirmed Type levothyroxine 50 mcg capsule 50 mcg PO HS 09/26/18 01/14/19 History acetaminophen [Tylenol Extra 1,000 mg PO QAM PRN 10/09/18 01/14/19 History Strength] acetaminophen [Tylenol Extra 1,500 mg PO HS PRN 10/09/18 01/14/19 History Strength] ergocalciferol (vitamin D2) 50,000 unit PO WK 10/09/18 01/14/19 History [Vitamin D2] insulin glargine U-300 conc 10 unit SUBCUT HS 10/09/18 01/14/19 History [Chase Mcclelland U-300 Insulin] atorvastatin 80 mg tablet 80 mg PO HS #30 tab 10/21/18 01/14/19 Rx bumetanide 2 mg tablet 2 mg PO BID #180 tab 11/27/18 01/14/19 Rx blood sugar diagnostic strips #10 ea 12/01/18 01/14/19 History lancets 30 gauge #25 ea 12/01/18 01/14/19 History carvedilol 12.5 mg tablet 12.5 mg PO BID #90 tab 12/03/18 01/14/19 Rx losartan 100 mg tablet 100 mg PO QAM #90 tab 12/03/18 01/14/19 Rx pen needle, diabetic 32 gauge x #200 ea 12/03/18 01/14/19 Rx 5/32" gabapentin 300 mg capsule 600 mg PO BID #120 cap 12/17/18 01/14/19 Rx aspirin 81 mg PO HS 01/09/19 01/14/19 History Iv Antibiotic 1 dose IV DIRECTED 01/14/19 01/14/19 History duloxetine 0 mg PO DAILY 01/14/19 01/14/19 History insulin aspart U-100 [Novolog 0 units SQ AC 01/14/19 01/14/19 History Flexpen U-100 Insulin] Past Med/Surg History Medical History Type 1 diabetes (Chronic) Bilateral foot pain (Acute) Bilateral swelling of feet (Acute) Type 2 diabetes mellitus with diabetic peripheral angiopathy without gangrene (Acute) Type 2 diabetes mellitus with diabetic polyneuropathy (Acute) Anemia (Chronic) Depression (Chronic) Leg ulcer (Chronic) CKD (chronic kidney disease) H/O diabetes mellitus (Chronic) H/O diabetic nephropathy (Chronic) H/O febrile seizure (Chronic) H/O kidney disease (Chronic) HTN, goal to be determined (Chronic) Other chronic pain (Chronic) Surgical History H/O detached retina repair (Acute) S/P arteriovenous (AV) fistula creation (Acute) Family History Other No significant family history Social History Preferred Language: Indonesian Communication Ability: Effective Visual Impairment: No Limitations Hearing Ability: Normal Beliefs That Will Affect Care: None marital status: Single Current Living Situation: Family Current Living Situation Comment: lives with brother, trying to get into "[employer], [employer] 8 housing" 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" Other Information That Helps Us Care for You: No Feels Safe at Home: Yes Safety Concerns: Feels Safe At This Time Smoking Status: Never smoker Hx Alcohol Use: Yes Alcohol type: beer Hx Substance Use: No Review of Systems Review of Systems: All systems reviewed & are unremarkable except as noted in HPI & below Constitutional: + fatigue and + weakness; no fever, no chills and no anorexia Respiratory: no cough, no dyspnea, no dyspnea on exertion and no wheezing Cardiovascular: + lightheadedness and + edema; no chest pain, no palpitations and no syncope Gastrointestinal: + constipation; no abdominal pain, no nausea, no vomiting, no change in stools, no blood in stools and no melena Genitourinary: no dysuria, no difficulty urinating, no urinary frequency and no hematuria Musculoskeletal: + swelling; no back pain and no joint pain Integumentary: + non-healing lesions, + skin ulcer, + sores and + erythema Neurologic: + dizziness; no syncope, no headache(s), no abnormal speech and no confusion Physical Exam Physical Exam: General: Obese male, in no acute distress. HEENT: NC/AT; PERRLA with EOMI; [place] conjunctiva, MMM. No erythema of posterior pharynx Neck: Supple and nontender Cardiac: RRR w/o murmurs, gallops or rubs Lungs: CTA bilaterally Abdomen: Bowel normoactive X 4; Nontender to palpation Extremities: Warm. +1-2 bilat LE edema; did not remove dressing on lower extremities per pt. request. Neuro: No focal weakness Skin: Did not remove dressing to visualize lower extremities. Constitutional: WD/WN, vitals as above + obese Eyes: normal visual blake by confrontation and + anicteric sclerae Neck: normal visual inspection and trachea midline Respiratory: normal respiratory effort, lungs clear to auscultation Cardiovascular: Rate/Rhythm: regular rate and regular rhythm Gastrointestinal (Abdomen): Inspection/Auscultation: abdomen not distended Percussion/Palpation: abdomen soft; abdomen nontender Musculoskeletal: Head/Neck/Chest: normocephalic and head atraumatic + LE edema, + pedal pulses Skin: no rashes, warm and dry + pallor Neurologic: awake; not confused Speech / Cognition: normal speech Psychiatric: A+Ox3, euthymic affect Lymphatic: Exam as done by Ester Saucedo DO Results & Data Vital Signs (Past 12 Hours) Vital Signs Temp Pulse Resp BP Pulse Ox 01/14/19 16:30 85 12 180/89 H 01/14/19 16:00 84 15 174/92 H 100 01/14/19 15:30 85 16 164/92 H 98 01/14/19 15:00 86 16 164/95 H 99 01/14/19 14:30 86 14 179/92 H 91 01/14/19 13:58 84 17 153/75 H 99 01/14/19 13:34 85 7 L 128/73 100 01/14/19 12:15 36.5 C 79 20 128/73 95 Laboratory Results 01/14/19 01/14/19 01/14/19 Range/Units 14:24 13:55 13:24 WBC (4.8-10.8) K/uL RBC (4.7-6.1) M/uL Hgb (14.0-18.0) g/dL Hct (42-52) % MCV (80-100) fL MCH (25-34) pg MCHC (32-36) g/dL RDW Std Deviation (36.4-46.3) fL RDW Coeff of Yuki (11.5-14.5) % Plt Count (130-400) K/uL MPV (7.4-10.4) fL Immature Gran % (Auto) % Neut % (Auto) % Lymph % (Auto) % Treasure % (Auto) % Eos % (Auto) % Baso % (Auto) % Immature Gran # (Auto) (0.00-0.02) K/uL Neut # (Auto) (1.4-6.5) K/uL Lymph # (Auto) (1.2-3.4) K/uL Treasure # (Auto) (0.11-0.59) K/uL Eos # (Auto) (0-0.5) K/uL Baso # (Auto) (0-0.2) K/uL Ovalocytes Sodium 137 (136-145) mmol/L Potassium 4.9 (3.5-5.1) mmol/L Chloride 104 (98-107) mmol/L Carbon Dioxide 28 (21-32) mmol/L Anion Gap 6.0 (3-11) BUN 70 H (7-18) mg/dl Creatinine 3.24 H (0.6-1.4) mg/dl Est Cr Clr Drug Dosing 41.2 ml/min Est GFR ( Amer) 26.8 Est GFR (Non-Af Amer) 23.1 BUN/Creatinine Ratio 21.5 H (10-20) Glucose 101 H (70-99) mg/dl POC Glucose (70-99) Calcium 9.3 (8.5-10.1) mg/dl Total Bilirubin 0.3 (0.2-1) mg/dl AST 13 L (15-37) U/L ALT 14 (12-78) U/L Alkaline Phosphatase 167 H (45-117) U/L Total Protein 6.9 (6.4-8.2) gm/dl Albumin 2.6 L (3.4-5.0) gm/dl Globulin 4.3 H (2.5-4.0) gm/dl Albumin/Globulin Ratio 0.6 L (0.9-2) Blood Type O Negative Blood Type Recheck O Negative Antibody Screen NEGATIVE Crossmatch See Detail 01/14/19 01/14/19 Range/Units 13:24 12:16 WBC 5.58 (4.8-10.8) K/uL RBC 2.56 L (4.7-6.1) M/uL Hgb 6.8 L* (14.0-18.0) g/dL Hct 21.1 L (42-52) % MCV 82.4 (80-100) fL MCH 26.6 (25-34) pg MCHC 32.2 (32-36) g/dL RDW Std Deviation 39.8 (36.4-46.3) fL RDW Coeff of Yuki 13.3 (11.5-14.5) % Plt Count 206 (130-400) K/uL MPV 9.5 (7.4-10.4) fL Immature Gran % (Auto) 0.2 % Neut % (Auto) 68.4 % Lymph % (Auto) 15.6 % Treasure % (Auto) 11.8 % Eos % (Auto) 3.8 % Baso % (Auto) 0.2 % Immature Gran # (Auto) 0.01 (0.00-0.02) K/uL Neut # (Auto) 3.82 (1.4-6.5) K/uL Lymph # (Auto) 0.87 L (1.2-3.4) K/uL Treasure # (Auto) 0.66 H (0.11-0.59) K/uL Eos # (Auto) 0.21 (0-0.5) K/uL Baso # (Auto) 0.01 (0-0.2) K/uL Ovalocytes 1+ Sodium (136-145) mmol/L Potassium (3.5-5.1) mmol/L Chloride (98-107) mmol/L Carbon Dioxide (21-32) mmol/L Anion Gap (3-11) BUN (7-18) mg/dl Creatinine (0.6-1.4) mg/dl Est Cr Clr Drug Dosing ml/min Est GFR ( Amer) Est GFR (Non-Af Amer) BUN/Creatinine Ratio (10-20) Glucose (70-99) mg/dl POC Glucose 70 (70-99) Calcium (8.5-10.1) mg/dl Total Bilirubin (0.2-1) mg/dl AST (15-37) U/L ALT (12-78) U/L Alkaline Phosphatase (45-117) U/L Total Protein (6.4-8.2) gm/dl Albumin (3.4-5.0) gm/dl Globulin (2.5-4.0) gm/dl Albumin/Globulin Ratio (0.9-2) Blood Type Blood Type Recheck Antibody Screen Crossmatch Code Status & VTE Plan Code Status FULL CODE VTE Prophylaxis Plan VTE Prophylaxis will be ordered: No Supervising Physician Co-Signing Physician Notes Pt seen and examined by me. Denies chest pain or SOB. Tolerating PO without issue. No abd pain. Does not note blood in stool. States his Hb was low with PCP over at least a year ago and has been slowly dropping. States he does not want c-scope, but might allow for EGD. Agree with HPI/ROS as noted by PA See above for my exam in PE section Agree with plan as outlined above GIB, PRBC started in ED GI c/s Monitor H/H Hypoglycemia in the office, now WNL Monitor Follows with ID and [facility] for pseudomonas, continue abx PG Care Time/CCT Total # of Minutes Spent Total Time Spent with Patient: Total time spent is greater than 50% in coordination of care (as documented) at patient's floor/unit and/or counseling patient: (1) GI bleed GI bleed type/associated pathology: unspecified gastrointestinal hemorrhage type Qualified Code(s): K92.2 - Gastrointestinal hemorrhage, unspecified (2) Anemia Anemia type: unspecified type Qualified Code(s): D64.9 - Anemia, unspecified
[2019-01-14] MEDS ORDERED: GLUCAGON FOR INJ 1 MG VIAL IM PRN (17:15)
[2019-01-14] MEDS ORDERED: CARBOHYDRATES FOR HYPOGLYCEMIA PO PRN (17:15)
[2019-01-14] MEDS ORDERED: DEXTROSE 50% 50 ML SYRINGE IV PRN (17:15)
[2019-01-14] MEDS ORDERED: GLUCOSE 10 TABS/TUBE PO PRN (17:15)
[2019-01-14] MEDS ORDERED: GLUCOSE 40% GEL 15 GM TUBE PO PRN (17:15)
--- NOTE | 2019-01-14 18:14 | Emergency Department Note ---
Entered by Gabriela Ty acting as a scribe for History of Present Illness General Chief complaint: Hypoglycemia Stated complaint: hypoglycemia Time Seen by Provider: 01/14/19 13:00 Source: patient History of Present Illness Onset (ago): day(s) (this morning) Severity: severe (BSG 32) Pain Consistency: + other (episode) Quality: + other (hypoglycemia) Relieved By: + eating Associated symptoms: + syncope (near) The patient is a 38 year old male who presents to the Emergency Room with complaints of an episode of hypoglycemia occurring this morning. The patient states that he has a history of diabetes. He reports that this morning he ate chicken and rice for breakfast. He states that he then gave himself insulin as usual. He states that he then went to the [facility] for his normal antibiotic treatment for the infection in his legs and then to the wound care clinic. He reports that while at the wound care clinic, he started feeling like he was going to pass out. He states that they checked his blood sugar and it was 32. The patient states that he may have accidentally doubled his insulin dose. He notes that this is not the first time he has done this. The patient states that since then he has had peanut butter crackers, eldon crackers, orange juice, and a meal tray. The patient notes that he does not want his dressings taken off or evaluated as home health will change them tomorrow. Home Medications Home Medications Medication Instructions Recorded Confirmed Type levothyroxine 50 mcg capsule 50 mcg PO HS 09/26/18 01/14/19 History acetaminophen [Tylenol Extra 1,000 mg PO QAM PRN 10/09/18 01/14/19 History Strength] acetaminophen [Tylenol Extra 1,500 mg PO HS PRN 10/09/18 01/14/19 History Strength] ergocalciferol (vitamin D2) 50,000 unit PO WK 10/09/18 01/14/19 History [Vitamin D2] insulin glargine U-300 conc 10 unit SUBCUT HS 10/09/18 01/14/19 History [Toujeo SoloStar U-300 Insulin] atorvastatin 80 mg tablet 80 mg PO HS #30 tab 10/21/18 01/14/19 Rx bumetanide 2 mg tablet 2 mg PO BID #180 tab 11/27/18 01/14/19 Rx blood sugar diagnostic strips #10 ea 12/01/18 01/14/19 History lancets 30 gauge #25 ea 12/01/18 01/14/19 History carvedilol 12.5 mg tablet 12.5 mg PO BID #90 tab 12/03/18 01/14/19 Rx losartan 100 mg tablet 100 mg PO QAM #90 tab 12/03/18 01/14/19 Rx pen needle, diabetic 32 gauge x #200 ea 12/03/18 01/14/19 Rx 5/32" gabapentin 300 mg capsule 600 mg PO BID #120 cap 12/17/18 01/14/19 Rx aspirin 81 mg PO HS 01/09/19 01/14/19 History Iv Antibiotic 1 dose IV DIRECTED 01/14/19 01/14/19 History duloxetine 0 mg PO DAILY 01/14/19 01/14/19 History insulin aspart U-100 [Novolog 0 units SQ AC 01/14/19 01/14/19 History Flexpen U-100 Insulin] Allergies Allergy/AdvReac Type Severity Reaction Status Date / Time Influenza Virus Vaccines Allergy Intermediate UNKNOWN Verified 01/14/19 09:49 lisinopril Allergy Intermediate COUGH Verified 01/14/19 09:49 Past Med/Surg History Medical History Type 1 diabetes (Chronic) Bilateral foot pain (Acute) Bilateral swelling of feet (Acute) Type 2 diabetes mellitus with diabetic peripheral angiopathy without gangrene (Acute) Type 2 diabetes mellitus with diabetic polyneuropathy (Acute) Anemia (Chronic) Depression (Chronic) Leg ulcer (Chronic) CKD (chronic kidney disease) H/O diabetes mellitus (Chronic) H/O diabetic nephropathy (Chronic) H/O febrile seizure (Chronic) H/O kidney disease (Chronic) HTN, goal to be determined (Chronic) Other chronic pain (Chronic) Surgical History H/O detached retina repair (Acute) S/P arteriovenous (AV) fistula creation (Acute) Family History Other No significant family history Social History Preferred Language: Belarusian Communication Ability: Effective Visual Impairment: No Limitations Hearing Ability: Normal Beliefs That Will Affect Care: None marital status: Single Current Living Situation: Family Current Living Situation Comment: lives with brother, trying to get into "[employer], section 8 housing" 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" Feels Safe at Home: Yes Smoking Status: Never smoker Hx Alcohol Use: Yes Alcohol type: beer Hx Substance Use: No Review of Systems See HPI for pertinent positives & negatives. and A total of 10 systems reviewed and were otherwise negative Physical Exam Vital Signs Vital Signs - 24 hr 01/14/19 12:15 01/14/19 13:34 01/14/19 13:58 Temperature 36.5 C Temperature Source Oral Sepsis Recent Fever Within 48 Hours No Sepsis New/Unexplained Change in Mental Status No Sepsis Action Taken by Nursing No Action Required Pulse Rate 79 85 84 Pulse Rate from SpO2 Sensor 85 84 Respiratory Rate 20 7 L 17 Respiratory Depth Normal Blood Pressure 128/73 128/73 153/75 H Blood Pressure Mean 91 91 101 Pulse Oximetry 95 100 99 Oxygen Delivery Method Room Air Room Air Room Air 01/14/19 14:30 01/14/19 15:00 01/14/19 15:30 Temperature Temperature Source Sepsis Recent Fever Within 48 Hours Sepsis New/Unexplained Change in Mental Status Sepsis Action Taken by Nursing Pulse Rate 86 86 85 Pulse Rate from SpO2 Sensor 86 85 85 Respiratory Rate 14 16 16 Respiratory Depth Blood Pressure 179/92 H 164/95 H 164/92 H Blood Pressure Mean 121 118 116 Pulse Oximetry 91 99 98 Oxygen Delivery Method Room Air Room Air 01/14/19 15:59 01/14/19 16:00 01/14/19 16:30 Temperature Temperature Source Sepsis Recent Fever Within 48 Hours Sepsis New/Unexplained Change in Mental Status Sepsis Action Taken by Nursing Pulse Rate 84 85 Pulse Rate from SpO2 Sensor 83 Respiratory Rate 15 12 Respiratory Depth Blood Pressure 174/92 H 180/89 H Blood Pressure Mean 119 119 Pulse Oximetry 100 Oxygen Delivery Method Room Air 01/14/19 17:00 01/14/19 17:30 Temperature Temperature Source Sepsis Recent Fever Within 48 Hours Sepsis New/Unexplained Change in Mental Status Sepsis Action Taken by Nursing Pulse Rate 87 88 Pulse Rate from SpO2 Sensor 86 89 Respiratory Rate 15 21 Respiratory Depth Blood Pressure 163/82 H 181/93 H Blood Pressure Mean 109 122 Pulse Oximetry 100 100 Oxygen Delivery Method Vital signs reviewed. General: Well-appearing, in no significant distress. HEENT: No scleral icterus, PERRLA, neck supple. Atraumatic. Cardiovascular: Regular rate and rhythm, no extra sounds. Pulmonary: Clear to auscultation bilaterally, normal work of breathing. Abdomen: Soft, nontender, nondistended, positive bowel sounds. Rectal: Mildly excoriated with hard stool palpated in the vault. Faintly guaiac positive. Musculoskeletal: Atraumatic, no peripheral edema. Neurologic: Patient awake alert and oriented x 3 Skin: Warm, dry, no rash Course 1312: Past medical records reviewed. The patient was evaluated in room B8. A complete history and physical exam was performed. 1343: I reevaluated the patient and updated him on his test results at this time. I performed a rectal exam at this time and consented him for blood. I discussed the treatment plan with him. He verbally agrees and understands. 1442: I discussed the patient's case with Dr. Jessy ROGERS Hospitalist. She will evaluate the patient for further management. Consultations Consultation #1: I discussed the patient's case with Dr. Jessy ROGERS Hospitalist. She will evaluate the patient for further management. Time: 14:42 Administered Medications Atorvastatin Calcium (Lipitor) 80 mg PO QAM [facility] Stop: 02/15/19 08:59 Last Admin: 01/16/19 07:55 Dose: 80 mg Documented by: [id number] Carvedilol (Coreg) 12.5 mg PO BID [facility] Stop: 02/13/19 20:59 Last Admin: 01/16/19 22:09 Dose: 12.5 mg Documented by: [id number] Admin: 01/16/19 07:54 Dose: 12.5 mg Documented by: [id number] Admin: 01/15/19 20:57 Dose: 12.5 mg Documented by: [id number] Admin: 01/15/19 11:39 Dose: 12.5 mg Documented by: [id number] Admin: 01/14/19 20:32 Dose: 12.5 mg Documented by: [id number] Docusate Sodium (Colace) 100 mg PO BID [facility] Stop: 02/15/19 09:44 Last Admin: 01/16/19 21:28 Dose: Not Given Documented by: [id number] Admin: 01/16/19 10:06 Dose: 100 mg Documented by: [id number] Duloxetine HCl (Cymbalta) 90 mg PO DAILY [facility] Stop: 02/14/19 08:59 Last Admin: 01/16/19 07:54 Dose: 90 mg Documented by: [id number] Admin: 01/15/19 13:08 Dose: 90 mg Documented by: [id number] Gabapentin (Neurontin) 600 mg PO BID [facility] Stop: 02/13/19 20:59 Last Admin: 01/16/19 22:09 Dose: 600 mg Documented by: [id number] Admin: 01/16/19 07:55 Dose: 600 mg Documented by: [id number] Admin: 01/15/19 20:57 Dose: 600 mg Documented by: [id number] Admin: 01/15/19 11:40 Dose: 600 mg Documented by: [id number] Admin: 01/14/19 20:34 Dose: 600 mg Documented by: [id number] Piperacillin Sod/Tazobactam (Sod 4.5 gm/ Dextrose) 120 mls @ 30 mls/hr IV Q8H [facility]; Protocol Stop: 01/25/19 12:59 Last Admin: 01/17/19 05:18 Dose: 30 mls/hr Documented by: [id number] Infusion: 01/17/19 01:27 Dose: 0 mls/hr Documented by: [id number] Admin: 01/16/19 21:27 Dose: 30 mls/hr Documented by: [id number] Infusion: 01/16/19 18:09 Dose: 0 mls/hr Documented by: [id number] Admin: 01/16/19 14:05 Dose: 30 mls/hr Documented by: [id number] Infusion: 01/16/19 10:31 Dose: 0 mls/hr Documented by: [id number] Admin: 01/16/19 06:14 Dose: 30 mls/hr Documented by: [id number] Infusion: 01/16/19 00:52 Dose: 0 mls/hr Documented by: [id number] Admin: 01/15/19 20:56 Dose: 30 mls/hr Documented by: [id number] Infusion: 01/15/19 17:13 Dose: 0 mls/hr Documented by: [id number] Admin: 01/15/19 13:18 Dose: 30 mls/hr Documented by: [id number] Insulin Aspart (Novolog Flexpen) 0 units SC ACHS [facility] Stop: 02/14/19 16:29 Last Admin: 01/16/19 21:31 Dose: 1 units Documented by: [id number] Cosigned by: [id number] Admin: 01/16/19 17:21 Dose: 8 units Documented by: [id number] Cosigned by: [id number] Admin: 01/16/19 12:35 Dose: 16 units Documented by: [id number] Cosigned by: [id number] Admin: 01/16/19 07:53 Dose: 9 units Documented by: [id number] Cosigned by: [id number] Admin: 01/15/19 20:59 Dose: 3 units Documented by: [id number] Cosigned by: [id number] Admin: 01/15/19 16:48 Dose: 14 units Documented by: [id number] Cosigned by: [id number] Insulin Glargine (Lantus Solostar Pen) 0 units SC HS [facility]; Protocol Stop: 02/13/19 20:59 Last Admin: 01/16/19 21:30 Dose: 8 units Documented by: [id number] Cosigned by: [id number] Admin: 01/15/19 20:59 Dose: 10 units Documented by: [id number] Cosigned by: [id number] Admin: 01/14/19 20:36 Dose: 10 units Documented by: [id number] Cosigned by: [id number] Levothyroxine Sodium (Synthroid) 50 mcg PO DAILYBB [facility] Stop: 02/15/19 06:29 Last Admin: 01/17/19 05:21 Dose: 50 mcg Documented by: [id number] Admin: 01/16/19 06:15 Dose: 50 mcg Documented by: [id number] Losartan Potassium (Cozaar) 100 mg PO QAM [facility] Stop: 02/14/19 08:59 Last Admin: 01/16/19 07:54 Dose: 100 mg Documented by: [id number] Admin: 01/15/19 11:39 Dose: 100 mg Documented by: [id number] Pantoprazole Sodium (Protonix) 40 mg PO BID [facility] Stop: 02/14/19 20:59 Last Admin: 01/16/19 22:10 Dose: 40 mg Documented by: [id number] Admin: 01/16/19 07:56 Dose: 40 mg Documented by: [id number] Admin: 01/15/19 20:57 Dose: 40 mg Documented by: [id number] Discontinued Medications Fentanyl Citrate (Fentanyl Citrate) Confirm Administered Dose 100 mcg .ROUTE .STK-MED ONE Stop: 01/15/19 10:13 Last Admin: 01/15/19 13:07 Dose: Not Given Documented by: [id number] Sodium Chloride (Nss 1000ml) 1,000 mls @ 150 mls/hr IV .[id number] [facility] Stop: 01/14/19 19:54 Last Infusion: 01/14/19 21:30 Dose: 0 mls/hr Documented by: [id number] Admin: 01/14/19 14:45 Dose: 150 mls/hr Documented by: [id number] Pantoprazole Sodium 80 mg/ (Dextrose) 120 mls @ 480 mls/hr IV 1415 ONE Stop: 01/14/19 14:29 Last Infusion: 01/14/19 15:01 Dose: 0 mls/hr Documented by: [id number] Admin: 01/14/19 14:45 Dose: 480 mls/hr Documented by: [id number] Pantoprazole Sodium 40 mg/ (Dextrose) 100 mls @ 20 mls/hr IV Q5H [facility] Stop: 02/13/19 19:29 Last Infusion: 01/15/19 13:09 Dose: 0 mls/hr Documented by: [id number] Admin: 01/15/19 11:51 Dose: 20 mls/hr Documented by: [id number] Infusion: 01/15/19 11:51 Dose: 20 mls/hr Documented by: [id number] Infusion: 01/15/19 11:45 Dose: 20 mls/hr Documented by: [id number] Infusion: 01/15/19 09:10 Dose: 0 mls/hr Documented by: [id number] Admin: 01/15/19 05:29 Dose: 20 mls/hr Documented by: [id number] Infusion: 01/15/19 05:29 Dose: 20 mls/hr Documented by: [id number] Admin: 01/15/19 01:05 Dose: 20 mls/hr Documented by: [id number] Infusion: 01/15/19 00:55 Dose: 20 mls/hr Documented by: [id number] Admin: 01/14/19 19:55 Dose: 20 mls/hr Documented by: [id number] Infusion: 01/14/19 19:55 Dose: 20 mls/hr Documented by: [id number] Admin: 01/14/19 15:06 Dose: 20 mls/hr Documented by: [id number] Levothyroxine Sodium 25 mcg/ (Syringe) 1.25 mls @ 2 mls/min IV DAILY@0900 [facility] Stop: 02/14/19 08:59 Last Admin: 01/15/19 11:45 Dose: 2 mls/min Documented by: [id number] Ceftazidime 1,000 mg/ Dextrose 50 mls @ 100 mls/hr IV Q24H [facility]; Protocol Stop: 01/25/19 07:59 Last Infusion: 01/15/19 09:15 Dose: 0 mls/hr Documented by: [id number] Admin: 01/15/19 08:34 Dose: 100 mls/hr Documented by: [id number] Sodium Chloride (Nss 1000ml) 1,000 mls @ 80 mls/hr IV .[id number] [facility] Stop: 02/14/19 00:59 Last Infusion: 01/15/19 12:09 Dose: 0 mls/hr Documented by: [id number] Infusion: 01/15/19 12:09 Dose: 0 mls/hr Documented by: [id number] Admin: 01/15/19 11:53 Dose: 80 mls/hr Documented by: [id number] Infusion: 01/15/19 09:14 Dose: 0 mls/hr Documented by: [id number] Admin: 01/14/19 20:41 Dose: 80 mls/hr Documented by: [id number] Insulin Aspart (Novolog Flexpen) 0 units SC ACHS [facility] Stop: 02/13/19 17:59 Last Admin: 01/14/19 20:45 Dose: Not Given Documented by: [id number] Admin: 01/14/19 20:37 Dose: 6 units Documented by: [id number] Cosigned by: [id number] Insulin Aspart (Novolog Flexpen) 0 units SC Q6 [facility] Stop: 02/14/19 01:29 Last Admin: 01/15/19 11:47 Dose: 9 units Documented by: [id number] Cosigned by: [id number] Admin: 01/15/19 06:13 Dose: 4 units Documented by: [id number] Cosigned by: [id number] Admin: 01/15/19 01:58 Dose: 8 units Documented by: [id number] Cosigned by: [id number] Insulin Aspart (Novolog Flexpen) 0 units SC 0000,0400 [facility] Stop: 01/16/19 04:01 Last Admin: 01/16/19 04:09 Dose: Not Given Documented by: [id number] Cosigned by: [id number] Admin: 01/16/19 00:18 Dose: Not Given Documented by: [id number] Insulin Glargine (Lantus Solostar Pen) 5 units SC NOW STA; Protocol Stop: 01/15/19 07:41 Last Admin: 01/15/19 08:33 Dose: 5 units Documented by: [id number] Cosigned by: [id number] Insulin Glargine (Lantus Solostar Pen) 10 units SC NOW STA; Protocol Stop: 01/16/19 08:35 Last Admin: 01/16/19 08:58 Dose: 10 units Documented by: [id number] Cosigned by: [id number] Lidocaine HCl (Xylocaine 2%) Confirm Administered Dose 4 ml INFIL .STK-MED ONE Stop: 01/15/19 10:08 Last Admin: 01/15/19 13:07 Dose: Not Given Documented by: [id number] Miscellaneous Information (Consult Glycemic Management Pharmacy) 1 ea N/A NOW STA Stop: 01/14/19 16:53 Last Admin: 01/15/19 01:28 Dose: Not Given Documented by: [id number] Propofol (Diprivan) Confirm Administered Dose 200 mg IV .STK-MED ONE Stop: 01/15/19 10:08 Last Admin: 01/15/19 13:07 Dose: Not Given Documented by: [id number] Medical Decision Making Differential Diagnosis Differential diagnosis: Etiologies such as vasovagal event, infection, anemia, hypoglycemia, hypov olemia, electrolyte abnormalities, dysrhythmias, cardiac ischemia, cardiac tamponade, valvular heart disease, structural heart disease, seizure, vascular stenosis/dissection, pulmonary embolism, intracerebral event, toxicological process, neurologic event, as well as others were entertained. Medical Records Attestation: I reviewed the patient's medical records. Home Medications Current Medication List: was personally reviewed by me Laboratory Data Attestation: I reviewed the patient's lab results. Result diagrams: 01/17/19 05:24 01/17/19 05:24 Lab Results 01/14/19 01/14/19 01/14/19 Range/Units 12:16 13:20 13:24 WBC 5.58 (4.8-10.8) K/uL RBC 2.56 L (4.7-6.1) M/uL Hgb 6.8 L* (14.0-18.0) g/dL Hct 21.1 L (42-52) % MCV 82.4 (80-100) fL MCH 26.6 (25-34) pg MCHC 32.2 (32-36) g/dL RDW Std Deviation 39.8 (36.4-46.3) fL RDW Coeff of Yuki 13.3 (11.5-14.5) % Plt Count 206 (130-400) K/uL MPV 9.5 (7.4-10.4) fL Immature Gran % (Auto) 0.2 % Neut % (Auto) 68.4 % Lymph % (Auto) 15.6 % [place] % (Auto) 11.8 % Eos % (Auto) 3.8 % Baso % (Auto) 0.2 % Immature Gran # (Auto) 0.01 (0.00-0.02) K/uL Neut # (Auto) 3.82 (1.4-6.5) K/uL Lymph # (Auto) 0.87 L (1.2-3.4) K/uL [place] # (Auto) 0.66 H (0.11-0.59) K/uL Eos # (Auto) 0.21 (0-0.5) K/uL Baso # (Auto) 0.01 (0-0.2) K/uL Ovalocytes 1+ Sodium (136-145) mmol/L Potassium (3.5-5.1) mmol/L Chloride (98-107) mmol/L Carbon Dioxide (21-32) mmol/L Anion Gap (3-11) BUN (7-18) mg/dl Creatinine (0.6-1.4) mg/dl Est Cr Clr Drug Dosing ml/min Est GFR ( Amer) Est GFR (Non-Af Amer) BUN/Creatinine Ratio (10-20) Glucose (70-99) mg/dl POC Glucose 70 108 H (70-99) Calcium (8.5-10.1) mg/dl Total Bilirubin (0.2-1) mg/dl AST (15-37) U/L ALT (12-78) U/L Alkaline Phosphatase (45-117) U/L Total Protein (6.4-8.2) gm/dl Albumin (3.4-5.0) gm/dl Globulin (2.5-4.0) gm/dl Albumin/Globulin Ratio (0.9-2) Blood Type Blood Type Recheck Antibody Screen Crossmatch 01/14/19 01/14/19 01/14/19 Range/Units 13:24 13:55 14:24 WBC (4.8-10.8) K/uL RBC (4.7-6.1) M/uL Hgb (14.0-18.0) g/dL Hct (42-52) % MCV (80-100) fL MCH (25-34) pg MCHC (32-36) g/dL RDW Std Deviation (36.4-46.3) fL RDW Coeff of Yuki (11.5-14.5) % Plt Count (130-400) K/uL MPV (7.4-10.4) fL Immature Gran % (Auto) % Neut % (Auto) % Lymph % (Auto) % [place] % (Auto) % Eos % (Auto) % Baso % (Auto) % Immature Gran # (Auto) (0.00-0.02) K/uL Neut # (Auto) (1.4-6.5) K/uL Lymph # (Auto) (1.2-3.4) K/uL [place] # (Auto) (0.11-0.59) K/uL Eos # (Auto) (0-0.5) K/uL Baso # (Auto) (0-0.2) K/uL Ovalocytes Sodium 137 (136-145) mmol/L Potassium 4.9 (3.5-5.1) mmol/L Chloride 104 (98-107) mmol/L Carbon Dioxide 28 (21-32) mmol/L Anion Gap 6.0 (3-11) BUN 70 H (7-18) mg/dl Creatinine 3.24 H (0.6-1.4) mg/dl Est Cr Clr Drug Dosing 41.2 ml/min Est GFR ( Amer) 26.8 Est GFR (Non-Af Amer) 23.1 BUN/Creatinine Ratio 21.5 H (10-20) Glucose 101 H (70-99) mg/dl POC Glucose (70-99) Calcium 9.3 (8.5-10.1) mg/dl Total Bilirubin 0.3 (0.2-1) mg/dl AST 13 L (15-37) U/L ALT 14 (12-78) U/L Alkaline Phosphatase 167 H (45-117) U/L Total Protein 6.9 (6.4-8.2) gm/dl Albumin 2.6 L (3.4-5.0) gm/dl Globulin 4.3 H (2.5-4.0) gm/dl Albumin/Globulin Ratio 0.6 L (0.9-2) Blood Type O Negative Blood Type Recheck O Negative Antibody Screen NEGATIVE Crossmatch See Detail 01/14/19 Range/Units 14:56 WBC (4.8-10.8) K/uL RBC (4.7-6.1) M/uL Hgb (14.0-18.0) g/dL Hct (42-52) % MCV (80-100) fL MCH (25-34) pg MCHC (32-36) g/dL RDW Std Deviation (36.4-46.3) fL RDW Coeff of Yuki (11.5-14.5) % Plt Count (130-400) K/uL MPV (7.4-10.4) fL Immature Gran % (Auto) % Neut % (Auto) % Lymph % (Auto) % [place] % (Auto) % Eos % (Auto) % Baso % (Auto) % Immature Gran # (Auto) (0.00-0.02) K/uL Neut # (Auto) (1.4-6.5) K/uL Lymph # (Auto) (1.2-3.4) K/uL [place] # (Auto) (0.11-0.59) K/uL Eos # (Auto) (0-0.5) K/uL Baso # (Auto) (0-0.2) K/uL Ovalocytes Sodium (136-145) mmol/L Potassium (3.5-5.1) mmol/L Chloride (98-107) mmol/L Carbon Dioxide (21-32) mmol/L Anion Gap (3-11) BUN (7-18) mg/dl Creatinine (0.6-1.4) mg/dl Est Cr Clr Drug Dosing ml/min Est GFR ( Amer) Est GFR (Non-Af Amer) BUN/Creatinine Ratio (10-20) Glucose (70-99) mg/dl POC Glucose 175 H (70-99) Calcium (8.5-10.1) mg/dl Total Bilirubin (0.2-1) mg/dl AST (15-37) U/L ALT (12-78) U/L Alkaline Phosphatase (45-117) U/L Total Protein (6.4-8.2) gm/dl Albumin (3.4-5.0) gm/dl Globulin (2.5-4.0) gm/dl Albumin/Globulin Ratio (0.9-2) Blood Type Blood Type Recheck Antibody Screen Crossmatch ECG Data Attestation: I personally reviewed and interpreted this ECG as follows: Indication: syncope Rate (beats per minute): 75 Rhythm: normal sinus Findings: + other (LVH, possible previous anterior infarct); no PAC, no PVC, no ST depression, no ST elevation, no acute ischemic change and no ectopy Blood Pressure Blood Pressure Findings: Elevated blood pressure Blood Pressure Disposition: further management by hospitalist MDM Narrative This patient was evaluated and appeared to be in no significant distress. Physical examination reveals a slightly disheveled obese male with dressings to the bilateral lower extremities. Patient refused to have these removed or evaluated. Patient was maintaining his blood glucose after eating. I do suspect he inadvertently administered too much insulin. EKG reveals a normal sinus rhythm with likely LVH but no acute ischemia or dysrhythmia. Laboratory work reveals anemia with a hemoglobin of 8.5. Creatinine is 3.73. The patient does take daily 81 mg aspirin but no anticoagulants. Stool guaiac is positive. IV Protonix was administered. Patient was hesitant but agreeable to inpatient management. Hospitalist service was consulted and will evaluate the patient for further management. Impression & Plan Syncope, Hypoglycemia, Anemia, GI bleed Discharge Plan Visit Data *Final* Discharge Date/Time: 01/14/19 17:46 Chief Complaint: Hypoglycemia Stated Complaint: hypoglycemia ED Provider: Giulia Schwartz Discharge Problem: Syncope, Hypoglycemia, Anemia, GI bleed Patient Disposition: Admitted As Inpatient Discharge Instructions Interventions: ED Discharge Assessment Last Done: 01/14/19 17:46 Discharge Problem: Syncope Qualifiers: Syncope type: unspecified Qualified Code(s): R55 - Syncope and collapse Anemia Qualifiers: Anemia type: unspecified type Qualified Code(s): D64.9 - Anemia, unspecified GI bleed Qualifiers: GI bleed type/associated pathology: unspecified gastrointestinal hemorrhage type Qualified Code(s): K92.2 - Gastrointestinal hemorrhage, unspecified The scribe's documentation has been prepared under my direction and personally reviewed by me in its entirety. I confirm that the note above accurately reflects all work, treatment, procedures, and medical decision making performed by me.
[2019-01-14] MEDS ORDERED: ACETAMINOPHEN 1,000 MG/100 ML VIAL IV PRN (18:41)
[2019-01-14] MEDS ORDERED: ONDANSETRON INJ 2 MG/ML 2 ML VIAL IV PRN (18:41)
[2019-01-14] MEDS: carvediloL 12.5 MG TAB PO SCH (20:32)
[2019-01-14] MEDS: GABAPENTIN 300 MG CAP PO SCH (20:34)
[2019-01-14] MEDS: INSULIN GLARGINE SOLOSTAR 100 UNITS/ML 3 ML PEN SC SCH (20:36)
[2019-01-14] MEDS: INSULIN ASPART 100 UNITS/ML 3 ML PEN SC SCH ×2 (20:37→20:45)
[2019-01-14] MEDS: SODIUM CHLORIDE 0.9% 1000ML 1,000 ML IV SCH (20:41)
[2019-01-15] MEDS: PANTOprazole 40 MG in DEXTROSE 5% 100 ML IV SCH ×3 (01:05→11:51)
[2019-01-15] MEDS: INSULIN ASPART 100 UNITS/ML 3 ML PEN SC SCH ×5 (01:58→20:59)
[2019-01-15 04:12] LABS: Hematocrit (blood only) 22.5 % (42-52); Hemoglobin 7.4 g/dL (14.0-18.0); Mean Corpuscular Hemoglobin 27.4 pg (25-34); Mean Corpuscular Hgb Conc 32.9 g/dL (32-36); Mean Corpuscular Volume 83.3 fL (80-100); Mean Platelet Volume 8.8 fL (7.4-10.4); Platelet Count 188 K/uL (130-400); RDW Coefficient of Variation 13.5 % (11.5-14.5); RDW Standard Deviation 41.3 fL (36.4-46.3); White Blood Count 4.64 K/uL (4.8-10.8)
[2019-01-15 04:21] LABS: INR 1.1 (0.9-1.1)
[2019-01-15 04:29] LABS: BUN Creatinine Ratio 18.6 (10-20); Calcium 8.6 mg/dl (8.5-10.1); Est GFR (African American) 25.1; Est GFR (Non-African American) 21.6; Magnesium 2.2 mg/dl (1.8-2.4); Potassium 4.6 mmol/L (3.5-5.1)
[2019-01-15 04:39] LABS: Thyroid Stimulating Hormone 3.57 uIu/ml (0.300-4.500)
[2019-01-15 06:26] LABS: Estimated Average Glucose 206 mg/dl; Hemoglobin A1C 8.8 % (4.5-5.6)
[2019-01-15] MEDS ORDERED: INSULIN GLARGINE SOLOSTAR 100 UNITS/ML 3 ML PEN SC STA (07:40)
--- NOTE | 2019-01-15 08:08 | Gastrointestinal Consultation ---
Date of Consultation January 15, 2019 Assessment & Plan (1) Anemia: severe anemia of unknown etiology, rule out slow upper gi bleed. Proceed with EGD to further evaluate. He does not want to pursue a colonoscopy at this time. risks/benefits and procedure discussed with patient, who agrees to proceed agree with PPI therapy at this time Thank you for allowing me to participate in the care of this patient. History of Present Illness Attending Physician: Talib Glover, DO 38 yo male with hx DM2, venous stasis ulcers, morbid obesity here with hypoglycemia. Patient had confusion and lightheadedness prior to presenting and was found to have low bs on arrival. GI consulted for severe anemia, hgb found to be 6.8. It is notable that his hgb has been slowly dropping for the last year. BUN noted to be elevated in the setting of his CKD. He denies any hematochezia, hematemesis, melena, recent epistaxis. No prior EGD, colonoscopy. Denies abdominal pains, diarrhea, constipation. He is on ASA 81 mg, denies NSAID abuse. Labs reviewed, notable for severe anemia. Vitals reviewed. Imaging reviewed. Allergies Allergy/AdvReac Type Severity Reaction Status Date / Time Influenza Virus Vaccines Allergy Intermediate UNKNOWN Verified 01/14/19 09:49 lisinopril Allergy Intermediate COUGH Verified 01/14/19 09:49 Home Medications Home Medications Medication Instructions Recorded Confirmed Type levothyroxine 50 mcg capsule 50 mcg PO HS 09/26/18 01/14/19 History acetaminophen [Tylenol Extra 1,000 mg PO QAM PRN 10/09/18 01/14/19 History Strength] acetaminophen [Tylenol Extra 1,500 mg PO HS PRN 10/09/18 01/14/19 History Strength] ergocalciferol (vitamin D2) 50,000 unit PO WK 10/09/18 01/14/19 History [Vitamin D2] insulin glargine U-300 conc 10 unit SUBCUT HS 10/09/18 01/14/19 History [Toujeo SoloStar U-300 Insulin] atorvastatin 80 mg tablet 80 mg PO HS #30 tab 10/21/18 01/14/19 Rx bumetanide 2 mg tablet 2 mg PO BID #180 tab 11/27/18 01/14/19 Rx blood sugar diagnostic strips #10 ea 12/01/18 01/14/19 History lancets 30 gauge #25 ea 12/01/18 01/14/19 History carvedilol 12.5 mg tablet 12.5 mg PO BID #90 tab 12/03/18 01/14/19 Rx losartan 100 mg tablet 100 mg PO QAM #90 tab 12/03/18 01/14/19 Rx pen needle, diabetic 32 gauge x #200 ea 12/03/18 01/14/19 Rx 5/32" gabapentin 300 mg capsule 600 mg PO BID #120 cap 12/17/18 01/14/19 Rx aspirin 81 mg PO HS 01/09/19 01/14/19 History Iv Antibiotic 1 dose IV DIRECTED 01/14/19 01/14/19 History duloxetine 0 mg PO DAILY 01/14/19 01/14/19 History insulin aspart U-100 [Novolog 0 units SQ AC 01/14/19 01/14/19 History Flexpen U-100 Insulin] Patient History Medical History Type 1 diabetes (Chronic) Bilateral foot pain (Acute) Bilateral swelling of feet (Acute) Type 2 diabetes mellitus with diabetic peripheral angiopathy without gangrene (Acute) Type 2 diabetes mellitus with diabetic polyneuropathy (Acute) Anemia (Chronic) Depression (Chronic) Leg ulcer (Chronic) CKD (chronic kidney disease) H/O diabetes mellitus (Chronic) H/O diabetic nephropathy (Chronic) H/O febrile seizure (Chronic) H/O kidney disease (Chronic) HTN, goal to be determined (Chronic) Other chronic pain (Chronic) Surgical History H/O detached retina repair (Acute) S/P arteriovenous (AV) fistula creation (Acute) Family History Other No significant family history Social History Preferred Language: Amharic Communication Ability: Effective Visual Impairment: No Limitations Hearing Ability: Normal Beliefs That Will Affect Care: None marital status: Single Current Living Situation: Family Current Living Situation Comment: lives with brother, trying to get into "[employer], [employer] 8 housing" 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" Other Information That Helps Us Care for You: No Feels Safe at Home: Yes Safety Concerns: Feels Safe At This Time Smoking Status: Never smoker Hx Alcohol Use: Yes Alcohol type: beer Hx Substance Use: No Review of Systems Constitutional: no fever, no chills and no weight loss Eyes: as per Subjective / HPI Ear, Nose, Mouth, Throat: as per Subjective / HPI Respiratory: no dyspnea and no dyspnea on exertion Cardiovascular: no chest pain and no palpitations Gastrointestinal: as per Subjective / HPI Musculoskeletal: no joint pain and no swelling Integumentary: no rash and no lesions Neurologic: no numbness and no paresthesia Psychiatric: no depression and no anxiety Endocrine: no fatigue Hematologic / Lymphatic: no easy bleeding and no easy bruising Physical Exam Constitutional: WD/WN, vitals as above Eyes: EOM intact bilaterally Neck: normal visual inspection Respiratory: normal respiratory effort, lungs clear to auscultation Cardiovascular: RRR, no murmur, no edema Gastrointestinal (Abdomen): Inspection/Auscultation: abdomen normal to inspection; abdomen not distended Percussion/Palpation: abdomen soft; abdomen nontender and no hepatosplenomegaly Musculoskeletal: Extremities: no cyanosis Gait: normal gait Skin: no rashes, warm and dry Neurologic: moves all extremities Psychiatric: A+Ox3, euthymic affect Results & Data Vital Signs (Past 12 Hours) Vital Signs Temp Pulse Pulse Resp BP BP Pulse Ox 01/15/19 07:30 37.0 C 88 18 167/98 H 98 01/15/19 04:28 36.7 C 84 16 150/78 H 95 01/15/19 04:19 36.4 C L 85 16 96/60 L 92 01/15/19 02:10 36.7 C 84 16 136/72 93 01/15/19 01:10 36.7 C 84 16 147/84 H 93 01/15/19 00:40 36.7 C 83 18 152/88 H 93 01/15/19 00:25 36.8 C 83 18 151/84 H 92 01/15/19 00:10 36.8 C 85 18 160/90 H 92 01/15/19 00:00 88 01/14/19 23:53 36.5 C 86 18 160/90 H 97 01/14/19 23:00 36.7 C 85 18 140/72 92 01/14/19 22:40 36.5 C 91 H 16 138/83 91 01/14/19 22:00 36.6 C 89 16 179/114 H 96 01/14/19 21:30 36.7 C 94 H 16 195/123 H 95 01/14/19 21:00 36.4 C L 98 H 16 200/139 H 99 01/14/19 20:30 36.7 C 96 H 16 200/130 H 98 01/14/19 20:23 36.6 C 97 H 16 196/120 H 100 01/14/19 20:13 36.6 C 96 H 16 200/130 H 100 01/14/19 20:08 36.6 C 97 H 16 195/140 H 100 PG Care Time/CCT Total # of Minutes Spent Total Time Spent with Patient: Total time spent is greater than 50% in coordination of care (as documented) at patient's floor/unit and/or counseling patient: (1) Anemia Anemia type: unspecified type Qualified Code(s): D64.9 - Anemia, unspecified
[2019-01-15] MEDS ORDERED: DULOXETINE HCL 60 MG CAP PO SCH (09:00)
[2019-01-15] MEDS ORDERED: LEVOTHYROXINE SODIUM 25 MCG in SYRINGE 0 ML IV SCH (09:00)
--- NOTE | 2019-01-15 09:21 | Anesthesiology Consultation ---
Date of Service January 15, 2019 Assessment & Plan (1) Encounter for pre-operative examination: History Surgery Operation Date: 01/15/19 09:30 Proposed Procedures p Esophagogastroduodenoscopy Dr. Senthil Ndiaye MD Height/Weight Height: 5 ft 6 in Weight: 138.4 kg Allergies Allergy/AdvReac Type Severity Reaction Status Date / Time Influenza Virus Vaccines Allergy Intermediate UNKNOWN Verified 01/14/19 09:49 lisinopril Allergy Intermediate COUGH Verified 01/14/19 09:49 Medications Home Medications Medication Instructions Recorded Confirmed Last Taken levothyroxine 50 mcg capsule 50 mcg PO HS 09/26/18 01/14/19 10/09/18 acetaminophen [Tylenol Extra 1,000 mg PO QAM PRN 10/09/18 01/14/19 10/09/18 Strength] acetaminophen [Tylenol Extra 1,500 mg PO HS PRN 10/09/18 01/14/19 10/08/18 Strength] ergocalciferol (vitamin D2) 50,000 unit PO WK 10/09/18 01/14/19 10/02/18 [Vitamin D2] insulin glargine U-300 conc 10 unit SUBCUT HS 10/09/18 01/14/19 Unknown [Toujeo SoloStar U-300 Insulin] atorvastatin 80 mg tablet 80 mg PO HS #30 tab 10/21/18 01/14/19 Unknown bumetanide 2 mg tablet 2 mg PO BID #180 tab 11/27/18 01/14/19 Unknown blood sugar diagnostic strips #10 ea 12/01/18 01/14/19 Unknown lancets 30 gauge #25 ea 12/01/18 01/14/19 Unknown carvedilol 12.5 mg tablet 12.5 mg PO BID #90 tab 12/03/18 01/14/19 Unknown losartan 100 mg tablet 100 mg PO QAM #90 tab 12/03/18 01/14/19 Unknown pen needle, diabetic 32 gauge x #200 ea 12/03/18 01/14/19 Unknown 5/32" gabapentin 300 mg capsule 600 mg PO BID #120 cap 12/17/18 01/14/19 Unknown aspirin 81 mg PO HS 01/09/19 01/14/19 Unknown Iv Antibiotic 1 dose IV DIRECTED 01/14/19 01/14/19 Unknown duloxetine 0 mg PO DAILY 01/14/19 01/14/19 Unknown insulin aspart U-100 [Novolog 0 units SQ AC 01/14/19 01/14/19 Unknown Flexpen U-100 Insulin] Active Medications Generic Name Dose Route Start Last Admin Trade Name Shereen PRN Reason Stop Dose Admin Carvedilol 12.5 mg 01/14/19 21:00 01/14/19 20:32 Coreg PO 02/13/19 20:59 12.5 mg BID CHASE Administration Gabapentin 600 mg 01/14/19 21:00 01/14/19 20:34 Neurontin PO 02/13/19 20:59 600 mg BID CHASE Administration Pantoprazole Sodium 40 mg/ 100 mls @ 20 mls/hr 01/14/19 14:30 01/15/19 09:10 Dextrose IV 02/13/19 19:29 0 mls/hr Q5H CHASE Infusion Ceftazidime 1,000 mg/ Dextrose 50 mls @ 100 mls/hr 01/15/19 08:00 01/15/19 09:15 IV 01/25/19 07:59 Infused Q24H CHASE Infusion Protocol Sodium Chloride 1,000 mls @ 80 mls/hr 01/15/19 01:00 01/15/19 09:14 Nss 1000ml IV 02/14/19 00:59 Infused .[id number] CHASE Infusion Insulin Aspart 0 units 01/15/19 01:30 01/15/19 06:13 Novolog Flexpen SC 02/14/19 01:29 4 units Q6 CHASE Administration Insulin Glargine 0 units 01/14/19 21:00 01/14/19 20:36 Lantus Solostar Pen SC 02/13/19 20:59 10 units HS CHASE Administration Protocol NPO Date Last Intake of Fluids: 01/14/19 Time Last Intake of Fluids: 23:45 Date Last Intake of Solids: 01/14/19 Time Last Intake of Solids: 18:00 Past Medical History Medical History Type 1 diabetes (Chronic) Bilateral foot pain (Acute) Bilateral swelling of feet (Acute) Type 2 diabetes mellitus with diabetic peripheral angiopathy without gangrene (Acute) Type 2 diabetes mellitus with diabetic polyneuropathy (Acute) Anemia (Chronic) Depression (Chronic) Leg ulcer (Chronic) CKD (chronic kidney disease) H/O diabetes mellitus (Chronic) H/O diabetic nephropathy (Chronic) H/O febrile seizure (Chronic) H/O kidney disease (Chronic) HTN, goal to be determined (Chronic) Other chronic pain (Chronic) Past Family History Family History Other No significant family history Past Surgical History Surgical History H/O detached retina repair (Acute) S/P arteriovenous (AV) fistula creation (Acute) Social History Smoking Status: Never smoker Hx Alcohol Use: Yes Alcohol type: beer alcohol intake frequency: a few times a month Hx Substance Use: No Physical Exam Vital Signs Last Vital Signs Temp 37.0 C 01/15/19 07:30 Pulse 85 01/15/19 08:00 Resp 18 01/15/19 07:30 BP 167/98 H 01/15/19 07:30 Pulse Ox 98 01/15/19 07:30 Testing Laboratory Results 01/15/19 04:05 01/15/19 04:05 PT 11.0 Seconds (9.0-12.0) 01/15/19 04:05 INR 1.1 (0.9-1.1) 01/15/19 04:05 Hemoglobin A1c 8.8 % (4.5-5.6) H 01/15/19 04:05 Blood Type O Negative 01/14/19 13:55 Antibody Screen NEGATIVE 01/14/19 13:55 01/15/19 01/15/19 01/15/19 06:00 00:49 00:46 POC Glucose 260 H 378 H* 384 H*
--- NOTE | 2019-01-15 09:49 | Infectious Disease Consult ---
Date of Consultation January 15, 2019 Assessment & Plan (1) Bilateral cellulitis of lower leg: Patient with infected venous stasis ulcer with prior cultures positive for pseudomonas aeruginosa. Sensitivity data reveals only borderline sensitivity for ceftazidime. Would recommend treatment with Zosyn for now, with length of IV antibiotics to be determined by clinical response. Will follow. (2) Venous stasis ulcers of both lower extremities: History of Present Illness Reason for Consultation: Venous stasis wounds Attending Physician: Talib Glover DO History of Present Illness 38-year-old male well-known to the infectious disease service, with history of type 1 diabetes mellitus, stage III chronic kidney disease, hyperlipidemia, chronic venous stasis disease, followed at the wound care center for infected venous stasis ulcers with Pseudomonas and staph aureus. He has been receiving outpatient treatment with ceftaz edema at the [facility]. Yesterday, developed dizziness with near syncopal episode, and found to be severely anemic and admitted to the hospital for further management. Has been started back on ceftaz edema. Legs have slightly improved, no report of fever. Pain in legs currently 2 out of 10 in intensity. GI work-up in progress. Allergies Allergy/AdvReac Type Severity Reaction Status Date / Time Influenza Virus Vaccines Allergy Intermediate UNKNOWN Verified 01/14/19 09:49 lisinopril Allergy Intermediate COUGH Verified 01/14/19 09:49 Home Medications Home Medications Medication Instructions Recorded Confirmed Type levothyroxine 50 mcg capsule 50 mcg PO HS 09/26/18 01/14/19 History acetaminophen [Tylenol Extra 1,000 mg PO QAM PRN 10/09/18 01/14/19 History Strength] acetaminophen [Tylenol Extra 1,500 mg PO HS PRN 10/09/18 01/14/19 History Strength] ergocalciferol (vitamin D2) 50,000 unit PO WK 10/09/18 01/14/19 History [Vitamin D2] insulin glargine U-300 conc 10 unit SUBCUT HS 10/09/18 01/14/19 History [Toujeo SoloStar U-300 Insulin] atorvastatin 80 mg tablet 80 mg PO HS #30 tab 10/21/18 01/14/19 Rx bumetanide 2 mg tablet 2 mg PO BID #180 tab 11/27/18 01/14/19 Rx blood sugar diagnostic strips #10 ea 12/01/18 01/14/19 History lancets 30 gauge #25 ea 12/01/18 01/14/19 History carvedilol 12.5 mg tablet 12.5 mg PO BID #90 tab 12/03/18 01/14/19 Rx losartan 100 mg tablet 100 mg PO QAM #90 tab 12/03/18 01/14/19 Rx pen needle, diabetic 32 gauge x #200 ea 12/03/18 01/14/19 Rx 5/32" gabapentin 300 mg capsule 600 mg PO BID #120 cap 12/17/18 01/14/19 Rx aspirin 81 mg PO HS 01/09/19 01/14/19 History Iv Antibiotic 1 dose IV DIRECTED 01/14/19 01/14/19 History duloxetine 0 mg PO DAILY 01/14/19 01/14/19 History insulin aspart U-100 [Novolog 0 units SQ AC 01/14/19 01/14/19 History Flexpen U-100 Insulin] Patient History Medical History Type 1 diabetes (Chronic) Bilateral foot pain (Acute) Bilateral swelling of feet (Acute) Type 2 diabetes mellitus with diabetic peripheral angiopathy without gangrene (Acute) Type 2 diabetes mellitus with diabetic polyneuropathy (Acute) Anemia (Chronic) Depression (Chronic) Leg ulcer (Chronic) CKD (chronic kidney disease) H/O diabetes mellitus (Chronic) H/O diabetic nephropathy (Chronic) H/O febrile seizure (Chronic) H/O kidney disease (Chronic) HTN, goal to be determined (Chronic) Other chronic pain (Chronic) Surgical History H/O detached retina repair (Acute) S/P arteriovenous (AV) fistula creation (Acute) Family History Other No significant family history Social History Preferred Language: Kiswahili Communication Ability: Effective Visual Impairment: No Limitations Hearing Ability: Normal Beliefs That Will Affect Care: None marital status: Single Current Living Situation: Family Current Living Situation Comment: lives with brother, trying to get into "[employer], section 8 housing" 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" Feels Safe at Home: Yes Smoking Status: Never smoker Hx Alcohol Use: Yes Alcohol type: beer Hx Substance Use: No Review of Systems Review of Systems: All systems reviewed & are unremarkable except as noted in HPI & below Physical Exam Constitutional: WD/WN, vitals as above + obese Pale-appearing Eyes: + conjunctival abnormality (Pale) and + anicteric sclerae; no eyelid abnormality ENMT: external ear and nose normal, oropharynx normal Neck: trachea midline, no thyromegaly neck nontender Respiratory: normal respiratory effort, lungs clear to auscultation Cardiovascular: RRR, no murmur, no edema Gastrointestinal (Abdomen): normal bowel sounds, soft, nontender, no hepatosplenomegaly Musculoskeletal: Head/Neck/Chest: normocephalic, head atraumatic and neck supple Skin: normal turgor and + ulcer (Superficial venous stasis ulcers with some surrounding erythema); no rashes Neurologic: moves all extremities and awake; no focal motor deficits Psychiatric: A+Ox3, euthymic affect Lymphatic: no cervical or axillary lymphadenopathy no inguinal lymphadenopathy Results & Data Vital Signs (Past 12 Hours) Vital Signs Temp Pulse Pulse Pulse Resp BP BP 01/15/19 09:20 36.7 C 91 H 91 H 20 155/86 H 01/15/19 08:00 85 01/15/19 07:30 37.0 C 88 18 167/98 H 01/15/19 07:27 37 C 88 18 167/98 H 01/15/19 04:28 36.7 C 84 16 150/78 H 01/15/19 04:19 36.4 C L 85 16 96/60 L 01/15/19 02:10 36.7 C 84 16 136/72 01/15/19 01:10 36.7 C 84 16 147/84 H 01/15/19 00:40 36.7 C 83 18 152/88 H 01/15/19 00:25 36.8 C 83 18 151/84 H 01/15/19 00:10 36.8 C 85 18 160/90 H 01/15/19 00:00 88 01/14/19 23:53 36.5 C 86 18 160/90 H 01/14/19 23:00 36.7 C 85 18 140/72 01/14/19 22:40 36.5 C 91 H 16 138/83 01/14/19 22:00 36.6 C 89 16 179/114 H Pulse Ox 01/15/19 09:20 97 01/15/19 08:00 01/15/19 07:30 98 01/15/19 07:27 98 01/15/19 04:28 95 01/15/19 04:19 92 01/15/19 02:10 93 01/15/19 01:10 93 01/15/19 00:40 93 01/15/19 00:25 92 01/15/19 00:10 92 01/15/19 00:00 01/14/19 23:53 97 01/14/19 23:00 92 01/14/19 22:40 91 01/14/19 22:00 96 Laboratory Results Short CBC 01/14/19 01/15/19 Range/Units 13:24 04:05 WBC 5.58 4.64 L (4.8-10.8) K/uL Hgb 6.8 L* 7.4 L (14.0-18.0) g/dL Hct 21.1 L 22.5 L (42-52) % Plt Count 206 188 (130-400) K/uL BMP 01/14/19 01/15/19 13:24 04:05 Sodium 137 135 L Potassium 4.9 4.6 Chloride 104 104 Carbon Dioxide 28 25 BUN 70 H 64 H Creatinine 3.24 H 3.42 H Glucose 101 H 269 H Calcium 9.3 8.6 Liver Function 01/14/19 Range/Units 13:24 Total Bilirubin 0.3 (0.2-1) mg/dl AST 13 L (15-37) U/L ALT 14 (12-78) U/L Alkaline Phosphatase 167 H (45-117) U/L Albumin 2.6 L (3.4-5.0) gm/dl Diagnostic Findings Name: VIJAYA HAMILTON Acct: [id number] Status: REG AMBR : 1980 [facility] [place] Date: 01/14/19 Age: 38 Sex: M Dis Date: Loc: [facility] Spec: [id number] Collected: 12/31/18-UNK Received: 12/31/18-[address]: Black, Ivory M., REALTY SPECIALIST Source: Leg,Left OV Order: Ordered: Surf Wnd Cul/Sm Procedure Result Verified Site Gram Stain Final 01/01/19 Gram Stain Result Rare WBCs Seen Rare Gram Positive Cocci Rare Gram Negative Bacilli Surface Wound Culture Final 01/03/19 Organism 1 Pseudomonas aeruginosa Quantity Moderate Sens Sensitivities to Follow Organism 2 Coag negative Staphylococcus Quantity Moderate Sens No Sensitivities to Follow Organism 3 Corynebacterium species Quantity Moderate Sens No Sensitivities to Follow Organism 4 Pseudomonas aeruginosa#2 Quantity Moderate Sens No Sensitivities to Follow Identification and susceptibility testing have confirmed the two PSEUDOMONAS organisms previously reported are the same organism. No susceptibility results will be generated on the second isolate. P aerugino RX M.I[facility] --- --------- Amikacin S <=16 Aztreonam R >16 Cefepime I 16 Ceftazidime S 4 Ciprofloxacin R >2 Gentamicin S <=4 Imipenem I 4 Levofloxacin R >4 Tobramycin S <=4 Pip/Tazo S <=16 S = SENSITIVE I = INTERMEDIATE R = RESISTANT Na PG Care Time/CCT Total # of Minutes Spent Total Time Spent with Patient: Total time spent is greater than 50% in coordination of care (as documented) at patient's floor/unit and/or counseling patient:
[2019-01-15] MEDS ORDERED: PROPOFOL IV EMULSION 10 MG/ML 20 ML VIAL IV ONE (10:07)
[2019-01-15] MEDS ORDERED: LIDOCAINE HCL 2% 2 ML VIAL/AMP(20MG/ML) INFIL ONE (10:07)
[2019-01-15] MEDS ORDERED: fentaNYL citrate 100 MCG/2 ML VIAL ONE (10:12)
[2019-01-15] MEDS: carvediloL 12.5 MG TAB PO SCH ×2 (11:39→20:57)
[2019-01-15] MEDS: LOSARTAN POTASSIUM 50 MG TAB PO SCH (11:39)
[2019-01-15 11:40] LABS: Hematocrit (blood only) 25.7 % (42-52); Hemoglobin 8.4 g/dL (14.0-18.0); Mean Corpuscular Hemoglobin 27.3 pg (25-34); Mean Corpuscular Hgb Conc 32.7 g/dL (32-36); Mean Corpuscular Volume 83.4 fL (80-100); Mean Platelet Volume 9.5 fL (7.4-10.4); Platelet Count 199 K/uL (130-400); RDW Coefficient of Variation 13.7 % (11.5-14.5); RDW Standard Deviation 41.7 fL (36.4-46.3); Red Blood Count 3.08 M/uL (4.7-6.1); White Blood Count 4.98 K/uL (4.8-10.8)
[2019-01-15] MEDS: GABAPENTIN 300 MG CAP PO SCH ×2 (11:40→20:57)
[2019-01-15] MEDS: SODIUM CHLORIDE 0.9% 1000ML 1,000 ML IV SCH (11:53)
--- NOTE | 2019-01-15 11:53 | Pharmacy Report ---
Pharmacy Glycemic Short Note 2 - Date of Service January 15, 2019 - Glycemic Short BSG Results (Last 24 hours): 01/14/19 01/14/19 01/14/19 12:16 13:20 13:24 Glucose 101 H POC Glucose 70 108 H 01/14/19 01/14/19 01/15/19 14:56 19:27 00:46 Glucose POC Glucose 175 H 311 H* 384 H* 01/15/19 01/15/19 01/15/19 00:49 04:05 06:00 Glucose 269 H POC Glucose 378 H* 260 H OUTPATIENT ANTIDIABETIC REGIMEN: * Toujeo 10 units SQ HS * Novolog AC * HbA1c: 9.8% (05/20/18) -- patient's A1c from this admission likely unreliable d/t multiple transfusions rec'd ASSESSMENT: * Mr Snell is a 38yo type 1 diabetic, admitted with profound anemia and hypoglycemia. * Patient is receiving antibiotics for B/L leg cellulitis. Pt also on Protonix gtt (which contains dextrose) for potential GI bleed. * Blood sugars quickly became significantly elevated after admission. * Additional Lantus provided this morning and Novolog parameters tightened. * Patient's diet advanced from NPO to clear liquids today. * Consider CDE consult. PLAN FOR INPATIENT GLYCEMIC CONTROL: * Hold outpatient oral diabetes medications * Basal insulin * Lantus 10 units SQ last night * Additional 5 units given this morning d/t severe hyperglycemia * Lantus tonight per scale * Bolus insulin * NovoLog per scale ACHS or Q6hrs while NPO plus 0000 and 0400 until hyperg lycemia has resolved * Goal Range: Low 100 mg/dL - High 140 mg/dL * Correction Factor: 25 mg/dL/unit * Nutritional / Prandial insulin per carb ratio of 1 unit per 9 grams CHO consumed PLAN FOR DISCHARGE: * A1c from April (9.8%) indicates sub-optimal glycemic control as an outpatient. * More recommendations pending insulin use during admission.
--- NOTE | 2019-01-15 11:57 | Anesthesiology Progress Note ---
Date of Service January 15, 2019 Anesthesia Post Procedure Vital Signs Vital Signs: Temp Pulse Pulse Pulse Resp BP BP 01/15/19 11:52 36.4 C L 91 H 18 170/83 H 01/15/19 11:09 92 H 18 158/83 H 01/15/19 10:54 90 18 161/82 H 01/15/19 10:39 88 18 154/88 H 01/15/19 09:20 36.7 C 91 H 91 H 20 155/86 H 01/15/19 08:00 85 01/15/19 07:30 37.0 C 88 18 167/98 H 01/15/19 07:27 37 C 88 18 167/98 H 01/15/19 04:28 36.7 C 84 16 150/78 H 01/15/19 04:19 36.4 C L 85 16 96/60 L 01/15/19 02:10 36.7 C 84 16 136/72 01/15/19 01:10 36.7 C 84 16 147/84 H 01/15/19 00:40 36.7 C 83 18 152/88 H 01/15/19 00:25 36.8 C 83 18 151/84 H 01/15/19 00:10 36.8 C 85 18 160/90 H 01/15/19 00:00 88 01/14/19 23:53 36.5 C 86 18 160/90 H 01/14/19 23:00 36.7 C 85 18 140/72 01/14/19 22:40 36.5 C 91 H 16 138/83 01/14/19 22:00 36.6 C 89 16 179/114 H 01/14/19 21:30 36.7 C 94 H 16 195/123 H 01/14/19 21:00 36.4 C L 98 H 16 200/139 H 01/14/19 20:30 36.7 C 96 H 16 200/130 H 01/14/19 20:23 36.6 C 97 H 16 196/120 H 01/14/19 20:13 36.6 C 96 H 16 200/130 H 01/14/19 20:08 36.6 C 97 H 16 195/140 H 01/14/19 20:02 36.6 C 97 H 16 179/78 H 01/14/19 18:41 36.6 C 16 180/78 H 01/14/19 17:30 88 21 181/93 H 01/14/19 17:00 87 15 163/82 H 01/14/19 16:30 85 12 180/89 H 01/14/19 16:00 84 15 174/92 H 01/14/19 15:30 85 16 164/92 H 01/14/19 15:00 86 16 164/95 H 01/14/19 14:30 86 14 179/92 H 01/14/19 13:58 84 17 153/75 H 01/14/19 13:34 85 7 L 128/73 01/14/19 12:15 36.5 C 79 20 128/73 Pulse Ox Pulse Ox 01/15/19 11:52 96 01/15/19 11:09 93 01/15/19 10:54 93 01/15/19 10:39 94 01/15/19 09:20 97 01/15/19 08:00 01/15/19 07:30 98 01/15/19 07:27 98 01/15/19 04:28 95 01/15/19 04:19 92 01/15/19 02:10 93 01/15/19 01:10 93 01/15/19 00:40 93 01/15/19 00:25 92 01/15/19 00:10 92 01/15/19 00:00 01/14/19 23:53 97 01/14/19 23:00 92 01/14/19 22:40 91 01/14/19 22:00 96 01/14/19 21:30 95 01/14/19 21:00 99 01/14/19 20:30 98 01/14/19 20:23 100 01/14/19 20:13 100 01/14/19 20:08 100 01/14/19 20:02 100 01/14/19 18:41 100 100 01/14/19 17:30 100 01/14/19 17:00 100 01/14/19 16:30 01/14/19 16:00 100 01/14/19 15:30 98 01/14/19 15:00 99 01/14/19 14:30 91 01/14/19 13:58 99 01/14/19 13:34 100 01/14/19 12:15 95 Transfer of Care Handoff Completed per policy Notes Mental Status: alert / awake / arousable and participated in evaluation Patient Amnestic to Procedure: Yes Nausea / Vomiting: adequately controlled Pain: adequately controlled Airway Patency, RR, SpO2: stable & adequate BP & HR: stable & adequate Hydration State: stable & adequate Anesthetic Complications: no major complications apparent and Pt Satisfied with anesthetic care
[2019-01-15] MEDS ORDERED: ACETAMINOPHEN 325 MG TAB PO PRN (12:05)
[2019-01-15] MEDS ORDERED: PIPERACILL/TAZOBAC CONSULT ACTIVE PRN (12:06)
[2019-01-15] MEDS: DULOXETINE HCL 30 MG CAP PO SCH (13:08)
--- NOTE | 2019-01-15 13:13 | Hospitalist Progress Note ---
Date of Service January 15, 2019 Assessment & Plan (1) Anemia: - Hgb decreased to 6.8 on admission; baseline hgb ~8-10 in setting of anemia of chronic disease, CKD stage III. - Concern for upper GI bleed -- FOBT pending collection but was reported to be + in ER. - Responded well to 2 units PRBCs on 01/14. - Monitor H/H twice daily. - Hold home ASA. (2) GI bleed: - Concern for upper GI bleed in setting of acute anemia. - FOBT pending collection. - Advanced diet following EGD; d/c IV fluids. - Convert PPI drip to PPI PO BID. - GI consulted, appreciate input. S/p EGD today, results are pending. (3) Hypoglycemia: - BG 30 in the wound clinic, responded well to treatment. - Type I diabetic -- pharmacy following for glycemic management. - Hgb A1C was 8.8. (4) Type 1 diabetes: - A1C was 8.8. - See above. (5) Dizziness: - Likely multi-factorial related to anemia and hypoglycemia. - Fall precautions. - Consider PT/OT prior to discharge. (6) Diabetic peripheral neuropathy associated with type 1 diabetes mellitus: - Continue Gabapentin 600 mg BID as prescribed. (7) Venous stasis ulcers of both lower extremities: - Follows with the wound clinic and ID; most recent wound culture on 12/31 showed Pseudomonas, coag neg Staph, Corynebacterium species. - Received daily Ceftazidime infusions in [facility]; ID consulted, will change to Zosyn IV per most recent C&S. - Wound care nurse following for dressing changes. - Holding home Bumex 2 mg PO BID; will likely need to restart diuretics to avoid increased LE edema. (8) CKD stage 3 due to type 1 diabetes mellitus: - Creatinine is currently at baseline. - Hold nephrotoxic meds. (9) High cholesterol: - Resume home statin. (10) Hypertension: - Continue Coreg and Losartan as prescribed. - Holding home Bumex. - BP has been elevated, will continue to monitor. (11) Depression: - Continue home Cymbalta 90 mg daily as prescribed. (12) Hypothyroidism: - Continue Synthroid. - TSH is 3.570. (13) Obesity: - BMI 48.9. - Encourage weight loss and exercise. (14) DVT prophylaxis: - SCDs; holding pharmacologic ppx in setting of acute bleed. Dispo: Evaluation of GI bleed with monitoring of H/H and hypoglycemia/type I DM control. Supervising Physician Co-Signing Physician Notes Chart reviewed, case discussed with Destiny Smith PAC. Agree with decision making and plan. Care as above. Subjective Pt. is doing well post op. He denies episodes of hematochezia, melena since admission. Denies dizziness, lightheadedness, chest pain, SOB, N/V, abd pain. S/p EGD. Hgb is trending up post blood transfusion. BG elevated over last 24 hours, pharmacy managing. ID also following; wound care changed dressing on bilat LE today, did have foul odor but otherwise appeared similar to previous images from wound clinic. Review of Systems Review of Systems: All systems reviewed & are unremarkable except as noted in HPI & below Constitutional: no fever, no chills, no fatigue, no weakness and no anorexia Respiratory: no cough, no dyspnea, no dyspnea on exertion and no wheezing Cardiovascular: + edema; no chest pain and no palpitations Gastrointestinal: no abdominal pain, no nausea, no vomiting, no constipation, no blood in stools and no melena Genitourinary: no difficulty urinating Musculoskeletal: no back pain and no joint pain Integumentary: + rash, + non-healing lesions, + skin ulcer, + sores, + wounds, + erythema and + dry skin Physical Exam Physical Exam: General: Obese male, in no acute distress. HEENT: NC/AT; PERRLA with EOMI; [place] conjunctiva, MMM. No erythema of posterior pharynx Neck: Supple and nontender Cardiac: RRR w/o murmurs, gallops or rubs Lungs: CTA bilaterally Abdomen: Bowel normoactive X 4; Nontender to palpation Extremities: Warm. +2 bilat LE edema. Neuro: No focal weakness Skin: Venous stasis of bilat LE with diffuse erythema; foul odor noted. Multiple wounds noted bilaterally with sloughing skin. Results & Data Vital Signs (Past 12 Hours) Vital Signs Temp Pulse Pulse Pulse Resp BP BP 01/15/19 11:52 36.4 C L 91 H 18 170/83 H 01/15/19 11:09 92 H 18 158/83 H 01/15/19 10:54 90 18 161/82 H 01/15/19 10:39 88 18 154/88 H 01/15/19 09:20 36.7 C 91 H 91 H 20 155/86 H 01/15/19 08:00 85 01/15/19 07:30 37.0 C 88 18 167/98 H 01/15/19 07:27 37 C 88 18 167/98 H 01/15/19 04:28 36.7 C 84 16 150/78 H 01/15/19 04:19 36.4 C L 85 16 96/60 L 01/15/19 02:10 36.7 C 84 16 136/72 01/15/19 01:10 36.7 C 84 16 147/84 H Pulse Ox 01/15/19 11:52 96 01/15/19 11:09 93 01/15/19 10:54 93 01/15/19 10:39 94 01/15/19 09:20 97 01/15/19 08:00 01/15/19 07:30 98 01/15/19 07:27 98 01/15/19 04:28 95 01/15/19 04:19 92 01/15/19 02:10 93 01/15/19 01:10 93 Laboratory Results 01/15/19 01/15/19 01/15/19 Range/Units 11:37 11:24 06:00 WBC 4.98 (4.8-10.8) K/uL RBC 3.08 L (4.7-6.1) M/uL Hgb 8.4 L (14.0-18.0) g/dL Hct 25.7 L (42-52) % MCV 83.4 (80-100) fL MCH 27.3 (25-34) pg MCHC 32.7 (32-36) g/dL RDW Std Deviation 41.7 (36.4-46.3) fL RDW Coeff of Yuki 13.7 (11.5-14.5) % Plt Count 199 (130-400) K/uL MPV 9.5 (7.4-10.4) fL Immature Gran % (Auto) % Neut % (Auto) % Lymph % (Auto) % [place] % (Auto) % Eos % (Auto) % Baso % (Auto) % Immature Gran # (Auto) (0.00-0.02) K/uL Neut # (Auto) (1.4-6.5) K/uL Lymph # (Auto) (1.2-3.4) K/uL [place] # (Auto) (0.11-0.59) K/uL Eos # (Auto) (0-0.5) K/uL Baso # (Auto) (0-0.2) K/uL Ovalocytes PT (9.0-12.0) Seconds INR (0.9-1.1) Sodium (136-145) mmol/L Potassium (3.5-5.1) mmol/L Chloride (98-107) mmol/L Carbon Dioxide (21-32) mmol/L Anion Gap (3-11) BUN (7-18) mg/dl Creatinine (0.6-1.4) mg/dl Est Cr Clr Drug Dosing ml/min Est GFR ( Amer) Est GFR (Non-Af Amer) BUN/Creatinine Ratio (10-20) Glucose (70-99) mg/dl POC Glucose 222 H 260 H (70-99) Estimat Average Glucose mg/dl Hemoglobin A1c (4.5-5.6) % Calcium (8.5-10.1) mg/dl Magnesium (1.8-2.4) mg/dl Total Bilirubin (0.2-1) mg/dl AST (15-37) U/L ALT (12-78) U/L Alkaline Phosphatase (45-117) U/L Total Protein (6.4-8.2) gm/dl Albumin (3.4-5.0) gm/dl Globulin (2.5-4.0) gm/dl Albumin/Globulin Ratio (0.9-2) TSH (0.300-4.500) uIu/ml Blood Type Blood Type Recheck Antibody Screen Crossmatch 01/15/19 01/15/19 01/15/19 Range/Units 04:05 04:05 04:05 WBC 4.64 L (4.8-10.8) K/uL RBC 2.70 L (4.7-6.1) M/uL Hgb 7.4 L (14.0-18.0) g/dL Hct 22.5 L (42-52) % MCV 83.3 (80-100) fL MCH 27.4 (25-34) pg MCHC 32.9 (32-36) g/dL RDW Std Deviation 41.3 (36.4-46.3) fL RDW Coeff of Yuki 13.5 (11.5-14.5) % Plt Count 188 (130-400) K/uL MPV 8.8 (7.4-10.4) fL Immature Gran % (Auto) % Neut % (Auto) % Lymph % (Auto) % [place] % (Auto) % Eos % (Auto) % Baso % (Auto) % Immature Gran # (Auto) (0.00-0.02) K/uL Neut # (Auto) (1.4-6.5) K/uL Lymph # (Auto) (1.2-3.4) K/uL [place] # (Auto) (0.11-0.59) K/uL Eos # (Auto) (0-0.5) K/uL Baso # (Auto) (0-0.2) K/uL Ovalocytes PT (9.0-12.0) Seconds INR (0.9-1.1) Sodium 135 L (136-145) mmol/L Potassium 4.6 (3.5-5.1) mmol/L Chloride 104 (98-107) mmol/L Carbon Dioxide 25 (21-32) mmol/L Anion Gap 6.0 (3-11) BUN 64 H (7-18) mg/dl Creatinine 3.42 H (0.6-1.4) mg/dl Est Cr Clr Drug Dosing 39.0 ml/min Est GFR ( Amer) 25.1 Est GFR (Non-Af Amer) 21.6 BUN/Creatinine Ratio 18.6 (10-20) Glucose 269 H (70-99) mg/dl POC Glucose (70-99) Estimat Average Glucose 206 mg/dl Hemoglobin A1c 8.8 H (4.5-5.6) % Calcium 8.6 (8.5-10.1) mg/dl Magnesium 2.2 (1.8-2.4) mg/dl Total Bilirubin (0.2-1) mg/dl AST (15-37) U/L ALT (12-78) U/L Alkaline Phosphatase (45-117) U/L Total Protein (6.4-8.2) gm/dl Albumin (3.4-5.0) gm/dl Globulin (2.5-4.0) gm/dl Albumin/Globulin Ratio (0.9-2) TSH 3.570 (0.300-4.500) uIu/ml Blood Type Blood Type Recheck Antibody Screen Crossmatch 01/15/19 01/15/19 01/15/19 Range/Units 04:05 00:49 00:46 WBC (4.8-10.8) K/uL RBC (4.7-6.1) M/uL Hgb (14.0-18.0) g/dL Hct (42-52) % MCV (80-100) fL MCH (25-34) pg MCHC (32-36) g/dL RDW Std Deviation (36.4-46.3) fL RDW Coeff of Yuki (11.5-14.5) % Plt Count (130-400) K/uL MPV (7.4-10.4) fL Immature Gran % (Auto) % Neut % (Auto) % Lymph % (Auto) % [place] % (Auto) % Eos % (Auto) % Baso % (Auto) % Immature Gran # (Auto) (0.00-0.02) K/uL Neut # (Auto) (1.4-6.5) K/uL Lymph # (Auto) (1.2-3.4) K/uL [place] # (Auto) (0.11-0.59) K/uL Eos # (Auto) (0-0.5) K/uL Baso # (Auto) (0-0.2) K/uL Ovalocytes PT 11.0 (9.0-12.0) Seconds INR 1.1 (0.9-1.1) Sodium (136-145) mmol/L Potassium (3.5-5.1) mmol/L Chloride (98-107) mmol/L Carbon Dioxide (21-32) mmol/L Anion Gap (3-11) BUN (7-18) mg/dl Creatinine (0.6-1.4) mg/dl Est Cr Clr Drug Dosing ml/min Est GFR ( Amer) Est GFR (Non-Af Amer) BUN/Creatinine Ratio (10-20) Glucose (70-99) mg/dl POC Glucose 378 H* 384 H* (70-99) Estimat Average Glucose mg/dl Hemoglobin A1c (4.5-5.6) % Calcium (8.5-10.1) mg/dl Magnesium (1.8-2.4) mg/dl Total Bilirubin (0.2-1) mg/dl AST (15-37) U/L ALT (12-78) U/L Alkaline Phosphatase (45-117) U/L Total Protein (6.4-8.2) gm/dl Albumin (3.4-5.0) gm/dl Globulin (2.5-4.0) gm/dl Albumin/Globulin Ratio (0.9-2) TSH (0.300-4.500) uIu/ml Blood Type Blood Type Recheck Antibody Screen Crossmatch 01/14/19 01/14/19 01/14/19 Range/Units 19:27 14:56 14:24 WBC (4.8-10.8) K/uL RBC (4.7-6.1) M/uL Hgb (14.0-18.0) g/dL Hct (42-52) % MCV (80-100) fL MCH (25-34) pg MCHC (32-36) g/dL RDW Std Deviation (36.4-46.3) fL RDW Coeff of Yuki (11.5-14.5) % Plt Count (130-400) K/uL MPV (7.4-10.4) fL Immature Gran % (Auto) % Neut % (Auto) % Lymph % (Auto) % [place] % (Auto) % Eos % (Auto) % Baso % (Auto) % Immature Gran # (Auto) (0.00-0.02) K/uL Neut # (Auto) (1.4-6.5) K/uL Lymph # (Auto) (1.2-3.4) K/uL [place] # (Auto) (0.11-0.59) K/uL Eos # (Auto) (0-0.5) K/uL Baso # (Auto) (0-0.2) K/uL Ovalocytes PT (9.0-12.0) Seconds INR (0.9-1.1) Sodium (136-145) mmol/L Potassium (3.5-5.1) mmol/L Chloride (98-107) mmol/L Carbon Dioxide (21-32) mmol/L Anion Gap (3-11) BUN (7-18) mg/dl Creatinine (0.6-1.4) mg/dl Est Cr Clr Drug Dosing ml/min Est GFR ( Amer) Est GFR (Non-Af Amer) BUN/Creatinine Ratio (10-20) Glucose (70-99) mg/dl POC Glucose 311 H* 175 H (70-99) Estimat Average Glucose mg/dl Hemoglobin A1c (4.5-5.6) % Calcium (8.5-10.1) mg/dl Magnesium (1.8-2.4) mg/dl Total Bilirubin (0.2-1) mg/dl AST (15-37) U/L ALT (12-78) U/L Alkaline Phosphatase (45-117) U/L Total Protein (6.4-8.2) gm/dl Albumin (3.4-5.0) gm/dl Globulin (2.5-4.0) gm/dl Albumin/Globulin Ratio (0.9-2) TSH (0.300-4.500) uIu/ml Blood Type Blood Type Recheck O Negative Antibody Screen Crossmatch 01/14/19 01/14/19 01/14/19 Range/Units 13:55 13:24 13:24 WBC 5.58 (4.8-10.8) K/uL RBC 2.56 L (4.7-6.1) M/uL Hgb 6.8 L* (14.0-18.0) g/dL Hct 21.1 L (42-52) % MCV 82.4 (80-100) fL MCH 26.6 (25-34) pg MCHC 32.2 (32-36) g/dL RDW Std Deviation 39.8 (36.4-46.3) fL RDW Coeff of Yuki 13.3 (11.5-14.5) % Plt Count 206 (130-400) K/uL MPV 9.5 (7.4-10.4) fL Immature Gran % (Auto) 0.2 % Neut % (Auto) 68.4 % Lymph % (Auto) 15.6 % [place] % (Auto) 11.8 % Eos % (Auto) 3.8 % Baso % (Auto) 0.2 % Immature Gran # (Auto) 0.01 (0.00-0.02) K/uL Neut # (Auto) 3.82 (1.4-6.5) K/uL Lymph # (Auto) 0.87 L (1.2-3.4) K/uL [place] # (Auto) 0.66 H (0.11-0.59) K/uL Eos # (Auto) 0.21 (0-0.5) K/uL Baso # (Auto) 0.01 (0-0.2) K/uL Ovalocytes 1+ PT (9.0-12.0) Seconds INR (0.9-1.1) Sodium 137 (136-145) mmol/L Potassium 4.9 (3.5-5.1) mmol/L Chloride 104 (98-107) mmol/L Carbon Dioxide 28 (21-32) mmol/L Anion Gap 6.0 (3-11) BUN 70 H (7-18) mg/dl Creatinine 3.24 H (0.6-1.4) mg/dl Est Cr Clr Drug Dosing 41.2 ml/min Est GFR ( Amer) 26.8 Est GFR (Non-Af Amer) 23.1 BUN/Creatinine Ratio 21.5 H (10-20) Glucose 101 H (70-99) mg/dl POC Glucose (70-99) Estimat Average Glucose mg/dl Hemoglobin A1c (4.5-5.6) % Calcium 9.3 (8.5-10.1) mg/dl Magnesium (1.8-2.4) mg/dl Total Bilirubin 0.3 (0.2-1) mg/dl AST 13 L (15-37) U/L ALT 14 (12-78) U/L Alkaline Phosphatase 167 H (45-117) U/L Total Protein 6.9 (6.4-8.2) gm/dl Albumin 2.6 L (3.4-5.0) gm/dl Globulin 4.3 H (2.5-4.0) gm/dl Albumin/Globulin Ratio 0.6 L (0.9-2) TSH (0.300-4.500) uIu/ml Blood Type O Negative Blood Type Recheck Antibody Screen NEGATIVE Crossmatch See Detail 01/14/19 Range/Units 13:20 WBC (4.8-10.8) K/uL RBC (4.7-6.1) M/uL Hgb (14.0-18.0) g/dL Hct (42-52) % MCV (80-100) fL MCH (25-34) pg MCHC (32-36) g/dL RDW Std Deviation (36.4-46.3) fL RDW Coeff of Yuki (11.5-14.5) % Plt Count (130-400) K/uL MPV (7.4-10.4) fL Immature Gran % (Auto) % Neut % (Auto) % Lymph % (Auto) % [place] % (Auto) % Eos % (Auto) % Baso % (Auto) % Immature Gran # (Auto) (0.00-0.02) K/uL Neut # (Auto) (1.4-6.5) K/uL Lymph # (Auto) (1.2-3.4) K/uL [place] # (Auto) (0.11-0.59) K/uL Eos # (Auto) (0-0.5) K/uL Baso # (Auto) (0-0.2) K/uL Ovalocytes PT (9.0-12.0) Seconds INR (0.9-1.1) Sodium (136-145) mmol/L Potassium (3.5-5.1) mmol/L Chloride (98-107) mmol/L Carbon Dioxide (21-32) mmol/L Anion Gap (3-11) BUN (7-18) mg/dl Creatinine (0.6-1.4) mg/dl Est Cr Clr Drug Dosing ml/min Est GFR ( Amer) Est GFR (Non-Af Amer) BUN/Creatinine Ratio (10-20) Glucose (70-99) mg/dl POC Glucose 108 H (70-99) Estimat Average Glucose mg/dl Hemoglobin A1c (4.5-5.6) % Calcium (8.5-10.1) mg/dl Magnesium (1.8-2.4) mg/dl Total Bilirubin (0.2-1) mg/dl AST (15-37) U/L ALT (12-78) U/L Alkaline Phosphatase (45-117) U/L Total Protein (6.4-8.2) gm/dl Albumin (3.4-5.0) gm/dl Globulin (2.5-4.0) gm/dl Albumin/Globulin Ratio (0.9-2) TSH (0.300-4.500) uIu/ml Blood Type Blood Type Recheck Antibody Screen Crossmatch PG Care Time/CCT Total # of Minutes Spent Total Time Spent with Patient: Total time spent is greater than 50% in coordination of care (as documented) at patient's floor/unit and/or counseling patient: (1) GI bleed GI bleed type/associated pathology: unspecified gastrointestinal hemorrhage type Qualified Code(s): K92.2 - Gastrointestinal hemorrhage, unspecified (2) Anemia Anemia type: unspecified type Qualified Code(s): D64.9 - Anemia, unspecified
[2019-01-15] MEDS: PIPERACILLIN/TAZOBACTAM 4.5 GM in DEXTROSE 5% 100 ML IV SCH ×2 (13:18→20:56)
[2019-01-15 18:11] LABS: Hemoglobin 7.4 g/dL (14.0-18.0); Mean Corpuscular Hemoglobin 26.7 pg (25-34); Mean Corpuscular Hgb Conc 32.2 g/dL (32-36); Mean Platelet Volume 9.8 fL (7.4-10.4); Platelet Count 194 K/uL (130-400); RDW Coefficient of Variation 13.6 % (11.5-14.5); RDW Standard Deviation 41.5 fL (36.4-46.3); Red Blood Count 2.77 M/uL (4.7-6.1); White Blood Count 5.08 K/uL (4.8-10.8)
[2019-01-15] MEDS: PANTOprazole 40 MG TAB PO SCH (20:57)
[2019-01-15] MEDS: INSULIN GLARGINE SOLOSTAR 100 UNITS/ML 3 ML PEN SC SCH (20:59)
--- NOTE | 2019-01-16 00:03 | GI REPORT ---
Patient Name: Ventura Snell Procedure Date: 01/15/2019 10:16 AM Date of : 1980 Admit Type: Inpatient Age: 38 Gender: Male Attending MD: Mal Ndiaye MD Procedure: Upper GI endoscopy Providers: Mal Ndiaye MD Referring MD: Talib Glover Indications: Iron deficiency anemia Medicines: Monitored Anesthesia Care Complications: No immediate complications. Estimated blood loss: None. Estimated Blood Loss: Estimated blood loss: none. Procedure: Pre-Anesthesia Assessment: - Prior Anticoagulants: The patient has taken aspirin, last dose was day of procedure. - ASA Grade Assessment: IV - A patient with severe systemic disease that is a constant threat to life. After obtaining informed consent, the endoscope was passed under direct vision. Throughout the procedure, the patient's blood pressure, pulse, and oxygen saturations were monitored continuously. The scope was introduced through the mouth, and advanced to the second part of duodenum. The upper GI endoscopy was accomplished with ease. The patient tolerated the procedure well. Findings: The Z-line was irregular and was found 39 cm from the incisors. Estimated blood loss: none. The examined esophagus was normal. A single 5 mm sessile polyp with no bleeding and no stigmata of recent bleeding was found in the gastric fundus. Polypectomy was attempted, initially using cold forceps. Polyp resection was incomplete with this device. This intervention then required a different device and polypectomy technique. The polyp was removed with a cold snare. Resection was complete, and retrieval was complete. Estimated blood loss: none. Estimated blood loss: none. The second portion of the duodenum was normal. Impression: - Z-line irregular, 39 cm from the incisors. - Normal esophagus. - A single gastric polyp. Resected and retrieved. - Normal second portion of the duodenum. Recommendation: - [facility]. - Await pathology results. - Resume previous diet today. Mal Ndiaye MD 01/15/2019 10:54:15 AM This report has been signed electronically. Note Initiated On: 01/15/2019 10:16 AM Number of Addenda: 0 I attest to the content of the Intraoperative Record and orders documented therein, exceptions below {[id number]}
[2019-01-16] MEDS: INSULIN ASPART 100 UNITS/ML 3 ML PEN SC SCH ×6 (00:18→21:31)
[2019-01-16] MEDS: PIPERACILLIN/TAZOBACTAM 4.5 GM in DEXTROSE 5% 100 ML IV SCH ×3 (06:14→21:27)
[2019-01-16] MEDS: LEVOTHYROXINE SODIUM 50 MCG TABLET PO SCH (06:15)
[2019-01-16 07:10] LABS: Hemoglobin 7.3 g/dL (14.0-18.0); Mean Corpuscular Hemoglobin 27.2 pg (25-34); Mean Corpuscular Hgb Conc 33.2 g/dL (32-36); Mean Corpuscular Volume 82.1 fL (80-100); Mean Platelet Volume 9.6 fL (7.4-10.4); Platelet Count 190 K/uL (130-400); RDW Coefficient of Variation 13.5 % (11.5-14.5); RDW Standard Deviation 40.8 fL (36.4-46.3); Red Blood Count 2.68 M/uL (4.7-6.1); White Blood Count 5.25 K/uL (4.8-10.8)
--- NOTE | 2019-01-16 07:33 | Anesthesiology Progress Note ---
Date of Service January 16, 2019 Anesthesia Post Procedure Vital Signs Vital Signs: Temp Pulse Pulse Pulse Resp BP Pulse Ox 01/16/19 07:28 86 01/16/19 07:17 36.9 C 83 20 145/82 H 96 01/16/19 03:39 36.6 C 88 16 157/76 H 97 01/16/19 02:29 79 01/16/19 00:17 36.9 C 85 16 164/98 H 97 01/15/19 15:15 36.7 C 85 20 151/81 H 94 01/15/19 15:00 82 01/15/19 11:52 36.4 C L 91 H 18 170/83 H 96 01/15/19 11:09 92 H 18 158/83 H 93 01/15/19 10:54 90 18 161/82 H 93 01/15/19 10:39 88 18 154/88 H 94 01/15/19 09:20 36.7 C 91 H 91 H 20 155/86 H 97 01/15/19 08:00 85 Notes Mental Status: alert / awake / arousable and participated in evaluation Patient Amnestic to Procedure: Yes Nausea / Vomiting: adequately controlled Pain: adequately controlled Airway Patency, RR, SpO2: stable & adequate BP & HR: stable & adequate Hydration State: stable & adequate Anesthetic Complications: no major complications apparent and Pt Satisfied with anesthetic care
[2019-01-16 07:44] LABS: Calcium 9.1 mg/dl (8.5-10.1); Creatinine Clr Calc Pharmacy 38.4 ml/min; Est GFR (African American) 24.5; Est GFR (Non-African American) 21.1; Potassium 4.4 mmol/L (3.5-5.1)
[2019-01-16] MEDS: DULOXETINE HCL 30 MG CAP PO SCH (07:54)
[2019-01-16] MEDS: carvediloL 12.5 MG TAB PO SCH ×2 (07:54→22:09)
[2019-01-16] MEDS: LOSARTAN POTASSIUM 50 MG TAB PO SCH (07:54)
[2019-01-16] MEDS: ATORVASTATIN 40 MG TAB PO SCH (07:55)
[2019-01-16] MEDS: GABAPENTIN 300 MG CAP PO SCH ×2 (07:55→22:09)
[2019-01-16] MEDS: PANTOprazole 40 MG TAB PO SCH ×2 (07:56→22:10)
[2019-01-16] MEDS ORDERED: SODIUM CHLORIDE 0.9% 250 ML IV PRN (08:00)
[2019-01-16 08:27] LABS: Ferritin 300.4 ng/ml (8-388)
[2019-01-16] MEDS ORDERED: INSULIN GLARGINE SOLOSTAR 100 UNITS/ML 3 ML PEN SC STA (08:34)
[2019-01-16] MEDS: DOCUSATE SODIUM 100 MG CAP PO SCH ×2 (10:06→21:28)
--- NOTE | 2019-01-16 11:45 | Hospitalist Progress Note ---
Date of Service January 16, 2019 Assessment & Plan (1) Anemia: - Hgb decreased to 6.8 on admission; baseline hgb ~8-10 in setting of anemia of chronic disease, CKD stage III. - Concern for upper GI bleed -- FOBT was reported to be + in ER. - Received 2 units pRBCs on admission; hgb trended back down to 7.3 this morning -- will transfuse an additional 2 units pRBCs. - Monitor H/H twice daily. - Holding home ASA. - Iron studies were completed; consider IV Iron replacement as inpatient vs Procrit dose. (2) GI bleed: - Concern for upper GI bleed in setting of acute anemia. - FOBT was + in the ER. - Advanced to regular diet. - PPI PO BID. - GI consulted, appreciate input. S/p EGD on 01/15, showed gastric polyp with biopsy pending -- was not bleeding at time of procedure. (3) Hypoglycemia: - BG 30 in the wound clinic, responded well to treatment. - Type I diabetic -- pharmacy following for glycemic management. - Hgb A1C was 8.8. (4) Type 1 diabetes: - A1C was 8.8. - See above. (5) Dizziness: - Likely multi-factorial related to anemia and hypoglycemia. - Fall precautions. - Now resolved, no indication for PT/OT consult. (6) Diabetic peripheral neuropathy associated with type 1 diabetes mellitus: - Continue Gabapentin 600 mg BID as prescribed. (7) Venous stasis ulcers of both lower extremities: - Follows with the wound clinic and ID; most recent wound culture on 12/31 showed Pseudomonas, coag neg Staph, Corynebacterium species. - Received daily [facility]ime infusions in [facility]; ID consulted, changed to Zosyn per most recent C&S. - Wound care nurse following for dressing changes. - Holding home Bumex 2 mg PO BID; will likely need to restart over next 24 hours. - Case management following; plan to discuss IV abx plan with Dr. Mcwilliams -- can only receive daily infusions at [facility] but is currently on Zosyn q8hr. (8) CKD stage 3 due to type 1 diabetes mellitus: - Creatinine currently at baseline. - Hold nephrotoxic meds. (9) High cholesterol: - Continue home statin. (10) Hypertension: - Continue Coreg and Losartan as prescribed. - Holding home Bumex. - BP has been elevated, will monitor. (11) Depression: - Continue home Cymbalta 90 mg daily as prescribed. (12) Hypothyroidism: - Continue Synthroid. - TSH is 3.570. (13) Obesity: - BMI 48.9. - Encourage weight loss and exercise. (14) DVT prophylaxis: - SCDs; holding pharmacologic ppx in setting of bleed. Dispo: Evaluation of H/H in setting of presumed GI bleed, continues to require transfusion support. Will also need to determine plan for IV abx infusion -- cannot go to the [facility] and also have home health services for wound care. Subjective Pt. is doing well today. He had his first BM during this admission this morning. Denies abd pain, N/V, melena or hematochezia. Denies further episodes of lightheadedness. Does not have increased LE swelling; wound care was completed yesterday by [facility] wound nurse. Will transfer to med/surg. Requiring blood transfusion today for hgb 7.3. EGD with gastric polyp, biopsy pending. Review of Systems Review of Systems: All systems reviewed & are unremarkable except as noted in HPI & below Constitutional: no fever, no chills, no fatigue, no weakness and no anorexia Respiratory: no cough, no dyspnea, no dyspnea on exertion and no wheezing Cardiovascular: no chest pain, no palpitations and no edema Gastrointestinal: no abdominal pain, no nausea, no vomiting, no constipation, no blood in stools and no melena Genitourinary: no difficulty urinating Musculoskeletal: + swelling; no back pain and no joint pain Integumentary: no non-healing lesions Physical Exam Physical Exam: General: Obese male, no acute distress. HEENT: NC/AT; PERRLA with EOMI; [place] conjunctiva, MMM. No erythema of posterior pharynx Neck: Supple and nontender Cardiac: RRR Lungs: CTA bilaterally Abdomen: Bowel normoactive X 4; Nontender to palpation Extremities: Warm. +2 bilat LE edema, difficult to assess in setting of wound dressing. Neuro: No focal weakness Skin: Venous stasis of bilat LE; wounds were not examined due to dressing. Results & Data Vital Signs (Past 12 Hours) Vital Signs Temp Pulse Pulse Resp BP BP Pulse Ox 01/16/19 10:59 36.8 C 82 18 144/89 H 97 01/16/19 10:29 36.7 C 83 18 150/87 H 96 01/16/19 10:14 36.7 C 80 16 150/78 H 95 01/16/19 09:48 36.7 C 88 20 145/80 H 97 01/16/19 09:41 36.2 C L 96 H 20 159/82 H 96 01/16/19 07:28 86 01/16/19 07:17 36.9 C 83 20 145/82 H 96 01/16/19 03:39 36.6 C 88 16 157/76 H 97 01/16/19 02:29 79 01/16/19 00:17 36.9 C 85 16 164/98 H 97 Laboratory Results 01/16/19 01/16/19 01/16/19 Range/Units 07:14 06:48 06:48 WBC (4.8-10.8) K/uL RBC (4.7-6.1) M/uL Hgb (14.0-18.0) g/dL Hct (42-52) % MCV (80-100) fL MCH (25-34) pg MCHC (32-36) g/dL RDW Std Deviation (36.4-46.3) fL RDW Coeff of Yuki (11.5-14.5) % Plt Count (130-400) K/uL MPV (7.4-10.4) fL Sodium 133 L (136-145) mmol/L Potassium 4.4 (3.5-5.1) mmol/L Chloride 102 (98-107) mmol/L Carbon Dioxide 22 (21-32) mmol/L Anion Gap 9.0 (3-11) BUN 59 H (7-18) mg/dl Creatinine 3.49 H (0.6-1.4) mg/dl Est Cr Clr Drug Dosing 38.4 ml/min Est GFR ( Amer) 24.5 Est GFR (Non-Af Amer) 21.1 BUN/Creatinine Ratio 17.0 (10-20) Glucose 169 H (70-99) mg/dl POC Glucose 199 H (70-99) Calcium 9.1 (8.5-10.1) mg/dl Magnesium 2.0 (1.8-2.4) mg/dl Iron 31 L (35-175) mcg/dl TIBC 189 L (250-450) mcg/dl Transferrin 161 L (200-360) mg/dl Transferrin % Sat 13 L (20-50) % Ferritin 300.4 (8-388) ng/ml Blood Type Antibody Screen Crossmatch 01/16/19 01/16/19 01/15/19 Range/Units 06:48 00:14 20:25 WBC 5.25 (4.8-10.8) K/uL RBC 2.68 L (4.7-6.1) M/uL Hgb 7.3 L (14.0-18.0) g/dL Hct 22.0 L (42-52) % MCV 82.1 (80-100) fL MCH 27.2 (25-34) pg MCHC 33.2 (32-36) g/dL RDW Std Deviation 40.8 (36.4-46.3) fL RDW Coeff of Yuki 13.5 (11.5-14.5) % Plt Count 190 (130-400) K/uL MPV 9.6 (7.4-10.4) fL Sodium (136-145) mmol/L Potassium (3.5-5.1) mmol/L Chloride (98-107) mmol/L Carbon Dioxide (21-32) mmol/L Anion Gap (3-11) BUN (7-18) mg/dl Creatinine (0.6-1.4) mg/dl Est Cr Clr Drug Dosing ml/min Est GFR ( Amer) Est GFR (Non-Af Amer) BUN/Creatinine Ratio (10-20) Glucose (70-99) mg/dl POC Glucose 187 H 212 H (70-99) Calcium (8.5-10.1) mg/dl Magnesium (1.8-2.4) mg/dl Iron (35-175) mcg/dl TIBC (250-450) mcg/dl Transferrin (200-360) mg/dl Transferrin % Sat (20-50) % Ferritin (8-388) ng/ml Blood Type Antibody Screen Crossmatch 01/15/19 01/15/19 01/15/19 Range/Units 17:55 16:37 11:37 WBC 5.08 (4.8-10.8) K/uL RBC 2.77 L (4.7-6.1) M/uL Hgb 7.4 L (14.0-18.0) g/dL Hct 23.0 L (42-52) % MCV 83.0 (80-100) fL MCH 26.7 (25-34) pg MCHC 32.2 (32-36) g/dL RDW Std Deviation 41.5 (36.4-46.3) fL RDW Coeff of Yuki 13.6 (11.5-14.5) % Plt Count 194 (130-400) K/uL MPV 9.8 (7.4-10.4) fL Sodium (136-145) mmol/L Potassium (3.5-5.1) mmol/L Chloride (98-107) mmol/L Carbon Dioxide (21-32) mmol/L Anion Gap (3-11) BUN (7-18) mg/dl Creatinine (0.6-1.4) mg/dl Est Cr Clr Drug Dosing ml/min Est GFR ( Amer) Est GFR (Non-Af Amer) BUN/Creatinine Ratio (10-20) Glucose (70-99) mg/dl POC Glucose 260 H 222 H (70-99) Calcium (8.5-10.1) mg/dl Magnesium (1.8-2.4) mg/dl Iron (35-175) mcg/dl TIBC (250-450) mcg/dl Transferrin (200-360) mg/dl Transferrin % Sat (20-50) % Ferritin (8-388) ng/ml Blood Type Antibody Screen Crossmatch 01/15/19 01/14/19 Range/Units 11:24 13:55 WBC 4.98 (4.8-10.8) K/uL RBC 3.08 L (4.7-6.1) M/uL Hgb 8.4 L (14.0-18.0) g/dL Hct 25.7 L (42-52) % MCV 83.4 (80-100) fL MCH 27.3 (25-34) pg MCHC 32.7 (32-36) g/dL RDW Std Deviation 41.7 (36.4-46.3) fL RDW Coeff of Yuki 13.7 (11.5-14.5) % Plt Count 199 (130-400) K/uL MPV 9.5 (7.4-10.4) fL Sodium (136-145) mmol/L Potassium (3.5-5.1) mmol/L Chloride (98-107) mmol/L Carbon Dioxide (21-32) mmol/L Anion Gap (3-11) BUN (7-18) mg/dl Creatinine (0.6-1.4) mg/dl Est Cr Clr Drug Dosing ml/min Est GFR ( Amer) Est GFR (Non-Af Amer) BUN/Creatinine Ratio (10-20) Glucose (70-99) mg/dl POC Glucose (70-99) Calcium (8.5-10.1) mg/dl Magnesium (1.8-2.4) mg/dl Iron (35-175) mcg/dl TIBC (250-450) mcg/dl Transferrin (200-360) mg/dl Transferrin % Sat (20-50) % Ferritin (8-388) ng/ml Blood Type O Negative Antibody Screen NEGATIVE Crossmatch See Detail PG Care Time/CCT Total # of Minutes Spent Total Time Spent with Patient: Total time spent is greater than 50% in coordination of care (as documented) at patient's floor/unit and/or counseling patient: (1) GI bleed GI bleed type/associated pathology: unspecified gastrointestinal hemorrhage type Qualified Code(s): K92.2 - Gastrointestinal hemorrhage, unspecified (2) Anemia Anemia type: unspecified type Qualified Code(s): D64.9 - Anemia, unspecified
--- NOTE | 2019-01-16 12:00 | Pharmacy Report ---
Pharmacy Glycemic Short Note 2 - Date of Service January 16, 2019 - Glycemic Short BSG Results (Last 24 hours): 01/15/19 01/15/19 01/15/19 11:37 16:37 20:25 Glucose POC Glucose 222 H 260 H 212 H 01/16/19 01/16/19 01/16/19 00:14 06:48 07:14 Glucose 169 H POC Glucose 187 H 199 H OUTPATIENT ANTIDIABETIC REGIMEN: * Toujeo 10 units SQ HS * Novolog AC * HbA1c: 9.8% (05/20/18) -- patient's A1c from this admission (8.8%) likely unreliable d/t multiple transfusions rec'd ASSESSMENT: 01/16/19 * Blood sugars improving but still above goal. Patient received 15 units basal and 38 units of bolus insulin yesterday. * Will increase morning Lantus dose and continue scale at HS. Tighten CF and CR * SCr remains elevated at 3.49mg/dl * Gentle changes in insulin dosing as patient did have BSG of 30mg/dl in wound clinic prior to admission 01/15/19 * Mr Snell is a 38yo type 1 diabetic, admitted with profound anemia and hypoglycemia. * Patient is receiving antibiotics for B/L leg cellulitis. Pt also on Protonix gtt (which contains dextrose) for potential GI bleed. * Blood sugars quickly became significantly elevated after admission. * Additional Lantus provided this morning and Novolog parameters tightened. * Patient's diet advanced from NPO to clear liquids today. * Consider CDE consult. PLAN FOR INPATIENT GLYCEMIC CONTROL: * Basal insulin - increase * Lantus 10 units SQ QAM * Lantus tonight per scale (5, 8, or 10 units based on blood sugar). * Bolus insulin * NovoLog per scale ACHS or Q6hrs while NPO * Goal Range: Low 110 mg/dL - High 140 mg/dL * tighten: Correction Factor: 20 mg/dL/unit * tighten: Nutritional / Prandial insulin per carb ratio of 1 unit per 8 grams CHO consumed PLAN FOR DISCHARGE: * To be determined
--- NOTE | 2019-01-16 14:52 | Infectious Disease Progress Nt ---
Date of Service January 16, 2019 Assessment & Plan (1) Bilateral cellulitis of lower leg: Patient with infected venous stasis ulcer with prior cultures positive for pseudomonas aeruginosa. We will continue patient on Zosyn while in hospital, then after discharge should go back to once daily ceftazidime at the [facility] until follows up with Dr. Castaneda at the wound care center. (2) Venous stasis ulcers of both lower extremities: Subjective Patient seen in follow-up for lower extremity cellulitis. Appears to be improving on Zosyn, redness and ulceration improving, no fever or chills. Tolerating antibiotics without apparent difficulty. Review of Systems Review of Systems: All systems reviewed & are unremarkable except as noted in HPI & below Physical Exam Constitutional: WD/WN, vitals as above + obese Eyes: + conjunctival abnormality ([place]) and + anicteric sclerae; no eyelid abnormality ENMT: external ear and nose normal, oropharynx normal Neck: trachea midline, no thyromegaly neck nontender Respiratory: normal respiratory effort, lungs clear to auscultation Cardiovascular: RRR, no murmur, no edema Gastrointestinal (Abdomen): normal bowel sounds, soft, nontender, no hepatosplenomegaly Musculoskeletal: Head/Neck/Chest: normocephalic, head atraumatic and neck supple Skin: normal turgor and + ulcer (Superficial venous stasis ulcers with some surrounding erythema); no rashes Neurologic: moves all extremities and awake; no focal motor deficits Psychiatric: A+Ox3, euthymic affect Lymphatic: no cervical or axillary lymphadenopathy no inguinal lymphadenopathy Results & Data Vital Signs (Past 12 Hours) Vital Signs Temp Pulse Pulse Resp BP BP Pulse Ox 01/16/19 13:15 36.5 C 82 18 170/82 H 98 01/16/19 12:45 36.6 C 77 16 162/90 H 96 01/16/19 12:30 36.6 C 77 18 162/93 H 96 01/16/19 12:11 36.3 C L 83 18 135/82 97 01/16/19 11:35 36.9 C 76 18 151/84 H 96 01/16/19 10:59 36.8 C 82 18 144/89 H 97 01/16/19 10:29 36.7 C 83 18 150/87 H 96 01/16/19 10:14 36.7 C 80 16 150/78 H 95 01/16/19 09:48 36.7 C 88 20 145/80 H 97 01/16/19 09:41 36.2 C L 96 H 20 159/82 H 96 01/16/19 07:28 86 01/16/19 07:17 36.9 C 83 20 145/82 H 96 01/16/19 03:39 36.6 C 88 16 157/76 H 97 PG Care Time/CCT Total # of Minutes Spent Total Time Spent with Patient: Total time spent is greater than 50% in coordination of care (as documented) at patient's floor/unit and/or counseling patient:
[2019-01-16 17:43] LABS: Hematocrit (blood only) 26.2 % (42-52); Hemoglobin 8.7 g/dL (14.0-18.0); Mean Corpuscular Hemoglobin 27.1 pg (25-34); Mean Corpuscular Hgb Conc 33.2 g/dL (32-36); Mean Corpuscular Volume 81.6 fL (80-100); Mean Platelet Volume 9.9 fL (7.4-10.4); Platelet Count 183 K/uL (130-400); RDW Coefficient of Variation 13.9 % (11.5-14.5); RDW Standard Deviation 41.5 fL (36.4-46.3); Red Blood Count 3.21 M/uL (4.7-6.1); White Blood Count 4.73 K/uL (4.8-10.8)
[2019-01-16] MEDS: INSULIN GLARGINE SOLOSTAR 100 UNITS/ML 3 ML PEN SC SCH (21:30)
[2019-01-17] MEDS: PIPERACILLIN/TAZOBACTAM 4.5 GM in DEXTROSE 5% 100 ML IV SCH ×3 (05:18→21:16)
[2019-01-17] MEDS: LEVOTHYROXINE SODIUM 50 MCG TABLET PO SCH (05:21)
[2019-01-17 05:51] LABS: Hematocrit (blood only) 25.4 % (42-52); Hemoglobin 8.5 g/dL (14.0-18.0); Mean Corpuscular Hemoglobin 27.2 pg (25-34); Mean Corpuscular Hgb Conc 33.5 g/dL (32-36); Mean Corpuscular Volume 81.2 fL (80-100); Mean Platelet Volume 9.6 fL (7.4-10.4); Platelet Count 173 K/uL (130-400); RDW Coefficient of Variation 13.9 % (11.5-14.5); RDW Standard Deviation 40.7 fL (36.4-46.3); Red Blood Count 3.13 M/uL (4.7-6.1); White Blood Count 4.93 K/uL (4.8-10.8)
[2019-01-17 06:17] LABS: BUN Creatinine Ratio 16.3 (10-20); Calcium 8.6 mg/dl (8.5-10.1); Creatinine Clr Calc Pharmacy 36.3 ml/min; Est GFR (African American) 22.6; Est GFR (Non-African American) 19.5; Potassium 4.6 mmol/L (3.5-5.1)
[2019-01-17] MEDS: DULOXETINE HCL 30 MG CAP PO SCH (09:28)
[2019-01-17] MEDS: PANTOprazole 40 MG TAB PO SCH ×2 (09:28→21:12)
[2019-01-17] MEDS: BUMETANIDE 1 MG TAB PO SCH ×2 (09:28→17:21)
[2019-01-17] MEDS: LOSARTAN POTASSIUM 50 MG TAB PO SCH (09:29)
[2019-01-17] MEDS: ATORVASTATIN 40 MG TAB PO SCH (09:29)
[2019-01-17] MEDS: DOCUSATE SODIUM 100 MG CAP PO SCH ×2 (09:29→21:10)
[2019-01-17] MEDS: INSULIN ASPART 100 UNITS/ML 3 ML PEN SC SCH ×4 (09:32→21:14)
[2019-01-17] MEDS: carvediloL 12.5 MG TAB PO SCH ×2 (10:16→21:11)
[2019-01-17] MEDS: GABAPENTIN 300 MG CAP PO SCH ×2 (10:16→21:12)
--- NOTE | 2019-01-17 11:34 | Hospitalist Progress Note ---
Date of Service January 17, 2019 Assessment & Plan (1) Anemia: - Hgb decreased to 6.8 on admission; baseline hgb ~8-10 in setting of anemia of chronic disease, CKD stage III. - Concern for upper GI bleed -- FOBT was reported to be + in ER. - Received 2 units pRBCs on admission & on 01/16 due to recurrent anemia. - Monitor H/H twice daily. - Hgb did not respond well to transfusion support, increased by ~1.4 g/dL, with 2 units on 01/16. Hgb has slightly increased with both transfusions but will trend back down again. Source of bleeding is unclear - may be related to gastric polyp initially then s/p polypectomy bleeding. Pt. will be considered stable for discharge once hgb remains >8 without transfusion support (this is his baseline) - Hold home ASA. - No indication for iron replacement per iron panel. (2) GI bleed: - Concern for upper GI bleed in setting of acute anemia. - FOBT was + in the ER. - Tolerating regular diet. - PPI PO BID. - GI consulted, appreciate input. S/p EGD on 01/15, showed gastric polyp - biopsy was negative. Unclear if this was source of bleeding. (3) Hypoglycemia: - BG 30 in the wound clinic, responded well to treatment. - Type I diabetic -- pharmacy following for glycemic management. - Hgb A1C was 8.8. (4) Type 1 diabetes: - A1C was 8.8. - See above. (5) Dizziness: - Likely multi-factorial related to anemia and hypoglycemia. - Fall precautions. (6) Diabetic peripheral neuropathy associated with type 1 diabetes mellitus: - Continue Gabapentin 600 mg BID as prescribed. (7) Venous stasis ulcers of both lower extremities: - Follows with the wound clinic and ID; most recent wound culture on 12/31 showed Pseudomonas, coag neg Staph, Corynebacterium species. - Received daily [facility] infusions in [facility]; ID consulted, changed to Zosyn per most recent C&S. - Wound care nurse following for dressing changes. - Will resume Bumex at 1 mg PO BID, can likely increase to home dose of 2 mg BID on 01/18 if renal function is stable. - Case management following, will likely arrange wound care clinic qMWF and resume infusion center appts with daily Ceftazidime (ok'ed by ID) -- cannot have home health services if he is coming to infusion center daily and pt. cannot complete dressing changes at home independently. (8) CKD stage 3 due to type 1 diabetes mellitus: - Creatinine currently at baseline. - Hold nephrotoxic meds. (9) High cholesterol: - Continue home statin. (10) Hypertension: - Continue Coreg and Losartan as prescribed. - Resuming Bumex at 1 mg PO BID -- can likely increase to 2 mg PO BID on 01/18. (11) Depression: - Continue home Cymbalta 90 mg daily as prescribed. (12) Hypothyroidism: - Continue Synthroid. - TSH is 3.570. (13) Obesity: - BMI 48.9. - Encourage weight loss and exercise. (14) Hyponatremia: - Na level trending down -- was 130 this morning. Has had ~3 kg weight gain due to holding home Bumex. - Plan to resume diuresis this morning, expect improvement in hyponatremia. - Monitor BMP daily -- will need further work up if no improvement after starting home Bumex. (15) DVT prophylaxis: - SCDs; holding pharmacologic ppx in setting of bleed. Dispo: Discharge pending stabilization of H/H. Will need wound care clinic qMWF for dressing changes and to resume [facility] for daily Ceftazidime appt at discharge. Subjective Pt. reports he is feeling well overall. Hgb improved with PRBC transfusion, will need to monitor over next 24 hours. Denies increased LE edema, shortness of breath, chest pain. Discharge planning is unclear at this point -- he cannot receive IV abx at infusion center and home nursing for wound care changes. Pt. does not feel comfortable with IV abx infusions at home and he cannot change dressing independently. His brother is not able to assist him in dressing changes. Discussed with family preservation caseworker -- will plan to set up wound care at clinic qMWF and resume infusion center appt. Review of Systems Review of Systems: All systems reviewed & are unremarkable except as noted in HPI & below Constitutional: + fatigue and + weakness; no fever, no chills and no anorexia Respiratory: no cough, no dyspnea, no dyspnea on exertion and no wheezing Cardiovascular: + edema; no chest pain and no palpitations Gastrointestinal: no abdominal pain, no nausea and no constipation Genitourinary: no difficulty urinating Musculoskeletal: + swelling; no back pain and no joint pain Integumentary: + non-healing lesions, + skin ulcer, + sores and + erythema Physical Exam Physical Exam: General: Obese male, no acute distress. HEENT: NC/AT; PERRLA with EOMI; [place] conjunctiva, MMM. No erythema of posterior pharynx Neck: Supple and nontender Cardiac: RRR Lungs: CTA bilaterally Abdomen: Bowel normoactive X 4; Nontender to palpation Extremities: Warm. +2 bilat LE edema, hard to assess due to LE dressing. Neuro: No focal weakness Skin: Venous stasis of bilat LE; wounds were not examined due to dressing. Results & Data Vital Signs (Past 12 Hours) Vital Signs Temp Pulse Resp BP Pulse Ox 01/17/19 07:00 36.3 C L 74 18 157/79 H 96 PG Care Time/CCT Total # of Minutes Spent Total Time Spent with Patient: Total time spent is greater than 50% in coordination of care (as documented) at patient's floor/unit and/or counseling patient: (1) GI bleed GI bleed type/associated pathology: unspecified gastrointestinal hemorrhage type Qualified Code(s): K92.2 - Gastrointestinal hemorrhage, unspecified (2) Anemia Anemia type: unspecified type Qualified Code(s): D64.9 - Anemia, unspecified
[2019-01-17] MEDS ORDERED: INSULIN GLARGINE SOLOSTAR 100 UNITS/ML 3 ML PEN SC ONE (12:30)
--- NOTE | 2019-01-17 14:34 | Pharmacy Report ---
Pharmacy Glycemic Short Note 2 - Date of Service January 17, 2019 - Glycemic Short BSG Results (Last 24 hours): 01/16/19 01/16/19 01/17/19 16:26 19:57 05:24 Glucose 122 H POC Glucose 177 H 157 H 01/17/19 01/17/19 07:37 11:30 Glucose POC Glucose 149 H 299 H OUTPATIENT ANTIDIABETIC REGIMEN: * Toujeo 10 units SQ HS * Novolog AC * HbA1c: 9.8% (05/20/18) -- patient's A1c from this admission (8.8%) likely unreliable d/t multiple transfusions rec'd ASSESSMENT: 01/17/19: * Pt received a total of 52 units of insulin yesterday (18 units of basal - 34 units of bolus). * Fasting BSG of 149 mg/dL remains above goal but is trending downward. Will continue to titrate Lantus dose and attempt to evenly distribute insulin regimen 50% basal and 50% bolus. Will also transition to once daily dosing at bedtime as this is how patient administers Lantus at home. * Will tighten Novolog carb ratio due to post prandial BSG elevation. Lunch BSG tends to spike, therefore a separate carb ratio will be assigned to breakfast to avoid this. 01/16/19 * Blood sugars improving but still above goal. Patient received 15 units basal and 38 units of bolus insulin yesterday. * Will increase morning Lantus dose and continue scale at HS. Tighten CF and CR * SCr remains elevated at 3.49mg/dl * Gentle changes in insulin dosing as patient did have BSG of 30mg/dl in wound clinic prior to admission 01/15/19 * Mr Snell is a 38yo type 1 diabetic, admitted with profound anemia and hypoglycemia. * Patient is receiving antibiotics for B/L leg cellulitis. Pt also on Protonix gtt (which contains dextrose) for potential GI bleed. * Blood sugars quickly became significantly elevated after admission. * Additional Lantus provided this morning and Novolog parameters tightened. * Patient's diet advanced from NPO to clear liquids today. * Consider CDE consult. PLAN FOR INPATIENT GLYCEMIC CONTROL: * Basal insulin - increase * Lantus 5 units SQ qAM + Lantus 15 units SQ qPM * Bolus insulin - tighten carb coverage * NovoLog per scale ACHS or Q6hrs while NPO * Goal Range: Low 110 mg/dL - High 140 mg/dL Breakfast * Correction Factor: 20 mg/dL/unit * Nutritional / Prandial insulin per carb ratio of 1 unit per 4 grams CHO consumed Lunch/Dinner/HS * Correction Factor: 20 mg/dL/unit * Nutritional / Prandial insulin per carb ratio of 1 unit per 5 grams CHO consumed PLAN FOR DISCHARGE: * To be determined
[2019-01-17 17:26] LABS: Hematocrit (blood only) 25.2 % (42-52); Hemoglobin 8.4 g/dL (14.0-18.0); Mean Corpuscular Hemoglobin 27.4 pg (25-34); Mean Corpuscular Hgb Conc 33.3 g/dL (32-36); Mean Corpuscular Volume 82.1 fL (80-100); Mean Platelet Volume 9.8 fL (7.4-10.4); Platelet Count 177 K/uL (130-400); RDW Standard Deviation 41.8 fL (36.4-46.3); Red Blood Count 3.07 M/uL (4.7-6.1); White Blood Count 4.98 K/uL (4.8-10.8)
[2019-01-17] MEDS ORDERED: INSULIN GLARGINE SOLOSTAR 100 UNITS/ML 3 ML PEN SC SCH (21:00)
[2019-01-18] MEDS: PIPERACILLIN/TAZOBACTAM 4.5 GM in DEXTROSE 5% 100 ML IV SCH ×3 (05:26→21:52)
[2019-01-18] MEDS: LEVOTHYROXINE SODIUM 50 MCG TABLET PO SCH (05:27)
[2019-01-18 05:59] LABS: Hemoglobin 8.3 g/dL (14.0-18.0); Mean Corpuscular Hemoglobin 26.9 pg (25-34); Mean Corpuscular Hgb Conc 33.2 g/dL (32-36); Mean Corpuscular Volume 81.2 fL (80-100); Mean Platelet Volume 9.5 fL (7.4-10.4); Platelet Count 176 K/uL (130-400); RDW Standard Deviation 41.3 fL (36.4-46.3); Red Blood Count 3.08 M/uL (4.7-6.1); White Blood Count 4.86 K/uL (4.8-10.8)
[2019-01-18 06:27] LABS: BUN Creatinine Ratio 16.1 (10-20); Calcium 8.8 mg/dl (8.5-10.1); Creatinine Clr Calc Pharmacy 37.5 ml/min; Est GFR (African American) 23.5; Est GFR (Non-African American) 20.3; Potassium 4.6 mmol/L (3.5-5.1)
[2019-01-18] MEDS: INSULIN ASPART 100 UNITS/ML 3 ML PEN SC SCH ×5 (08:29→21:49)
[2019-01-18] MEDS: BUMETANIDE 1 MG TAB PO SCH ×2 (08:30→17:15)
[2019-01-18] MEDS: GABAPENTIN 300 MG CAP PO SCH ×2 (08:30→21:49)
[2019-01-18] MEDS: carvediloL 12.5 MG TAB PO SCH ×2 (08:30→21:48)
[2019-01-18] MEDS: LOSARTAN POTASSIUM 50 MG TAB PO SCH (08:30)
[2019-01-18] MEDS: DULOXETINE HCL 30 MG CAP PO SCH (08:30)
[2019-01-18] MEDS: ATORVASTATIN 40 MG TAB PO SCH (08:30)
[2019-01-18] MEDS: PANTOprazole 40 MG TAB PO SCH ×2 (08:30→21:48)
[2019-01-18] MEDS: DOCUSATE SODIUM 100 MG CAP PO SCH ×2 (08:32→21:48)
--- NOTE | 2019-01-18 12:29 | Hospitalist Progress Note ---
Date of Service January 18, 2019 Assessment & Plan (1) Anemia: - Hgb decreased to 6.8 on admission; baseline hgb ~8-10 in setting of anemia of chronic disease with CKD stage III. - Concern for upper GI bleed -- FOBT + in ER. - Received 2 units pRBCs on admission & on 01/16 due to recurrent anemia. - Monitor H/H daily -- has been stable over last 24 hours. - Hold home ASA. - No indication for iron replacement per iron panel. (2) GI bleed: - Concern for upper GI bleed in setting of acute anemia; no episodes of melena during this admission. - FOBT was + in the ER. - Tolerating regular diet. - PPI PO BID - transition to daily at discharge. - GI consulted, appreciate input. S/p EGD on 01/15, showed gastric polyp - biopsy was negative. Unclear if this was source of bleeding. (3) Hypoglycemia: - BG 30 in the wound clinic, responded well to treatment. - Type I diabetic -- pharmacy following for glycemic management. - Hgb A1C was 8.8 (may not be accurate, was collected following blood tra nsfusion) - Discharge regimen: Toujeo 20 units qhs, Novolong 10 units ac (previously on 20 units BID) (4) Type 1 diabetes: - A1C was 8.8. - See above. (5) Dizziness: - Likely multi-factorial related to anemia and hypoglycemia. - Fall precautions. (6) Diabetic peripheral neuropathy associated with type 1 diabetes mellitus: - Continue Gabapentin 600 mg BID as prescribed. (7) Venous stasis ulcers of both lower extremities: - Follows with the wound clinic and ID; most recent wound culture on 12/31 showed Pseudomonas, coag neg Staph, Corynebacterium species. - Received daily Ceftazidime infusions in [facility]; ID consulted, changed to Zosyn per most recent C&S. - Wound care nurse following for dressing changes -- will need dressing change by wound care nurse on 01/19 prior to discharge, cannot complete today. - Resumed home Bumex 2 mg PO BID. - Case management following, plan to resume [facility] on Saturday 01/20 with daily Ceftazidime (ok'ed by ID) and wound clinic qMWF starting Sunday 01/21. (8) CKD stage 3 due to type 1 diabetes mellitus: - Creatinine currently at baseline. - Hold nephrotoxic meds. (9) High cholesterol: - Continue home statin. (10) Hypertension: - Continue Coreg and Losartan as prescribed. - Resumed Bumex 2 mg BID. (11) Depression: - Continue home Cymbalta 90 mg daily as prescribed. (12) Hypothyroidism: - Continue Synthroid. - TSH is 3.570. (13) Obesity: - BMI 48.9. - Encourage weight loss and exercise. (14) Hyponatremia: - Na level trending down, now improved after restarting Bumex. - Monitor BMP daily. (15) DVT prophylaxis: - SCDs; holding pharmacologic ppx in setting of bleed. Dispo: Discharge to home on 01/19 pending dressing change by wound care nurse -- please contact team in the morning. Will start [facility] on Saturday 01/20 and will need wound clinic appt arranged qMWF starting Sunday 01/21. Subjective Pt. is doing well overall. He denies chest pain, SOB, N/V, increased LE edema. Cannot complete dressing change today -- will need to complete with wound nurse tomorrow. Plan for discharge on Saturday with f/u in infusion center on 01/20. Review of Systems Review of Systems: All systems reviewed & are unremarkable except as noted in HPI & below Constitutional: no fever, no chills, no fatigue, no weakness and no anorexia Respiratory: no cough, no dyspnea, no dyspnea on exertion and no wheezing Cardiovascular: no chest pain, no palpitations and no edema Gastrointestinal: no abdominal pain, no nausea and no constipation Genitourinary: no difficulty urinating Musculoskeletal: no back pain, no joint pain and no swelling Physical Exam Physical Exam: General: Obese male, no acute distress. HEENT: NC/AT; PERRLA with EOMI; [place] conjunctiva, MMM. No erythema of posterior pharynx Neck: Supple and nontender Cardiac: RRR Lungs: CTA bilaterally Abdomen: Bowel normoactive X 4; Nontender to palpation Extremities: Warm. +1-2 bilat LE edema. Neuro: No focal weakness Skin: Venous stasis of bilat LE; wounds were not examined due to dressing. Results & Data Vital Signs (Past 12 Hours) Vital Signs Temp Pulse Resp BP Pulse Ox 01/18/19 07:19 36.5 C 72 20 148/88 H 97 Laboratory Results 01/18/19 01/18/19 01/18/19 Range/Units 12:06 07:31 05:41 WBC (4.8-10.8) K/uL RBC (4.7-6.1) M/uL Hgb (14.0-18.0) g/dL Hct (42-52) % MCV (80-100) fL MCH (25-34) pg MCHC (32-36) g/dL RDW Std Deviation (36.4-46.3) fL RDW Coeff of Yuki (11.5-14.5) % Plt Count (130-400) K/uL MPV (7.4-10.4) fL Sodium 131 L (136-145) mmol/L Potassium 4.6 (3.5-5.1) mmol/L Chloride 100 (98-107) mmol/L Carbon Dioxide 23 (21-32) mmol/L Anion Gap 8.0 (3-11) BUN 58 H (7-18) mg/dl Creatinine 3.61 H (0.6-1.4) mg/dl Est Cr Clr Drug Dosing 37.5 ml/min Est GFR ( Amer) 23.5 Est GFR (Non-Af Amer) 20.3 BUN/Creatinine Ratio 16.1 (10-20) Glucose 96 (70-99) mg/dl POC Glucose 206 H 112 H (70-99) Calcium 8.8 (8.5-10.1) mg/dl 01/18/19 01/17/19 01/17/19 Range/Units 05:41 20:12 16:57 WBC 4.86 4.98 (4.8-10.8) K/uL RBC 3.08 L 3.07 L (4.7-6.1) M/uL Hgb 8.3 L 8.4 L (14.0-18.0) g/dL Hct 25.0 L 25.2 L (42-52) % MCV 81.2 82.1 (80-100) fL MCH 26.9 27.4 (25-34) pg MCHC 33.2 33.3 (32-36) g/dL RDW Std Deviation 41.3 41.8 (36.4-46.3) fL RDW Coeff of Yuki 14.0 14.0 (11.5-14.5) % Plt Count 176 177 (130-400) K/uL MPV 9.5 9.8 (7.4-10.4) fL Sodium (136-145) mmol/L Potassium (3.5-5.1) mmol/L Chloride (98-107) mmol/L Carbon Dioxide (21-32) mmol/L Anion Gap (3-11) BUN (7-18) mg/dl Creatinine (0.6-1.4) mg/dl Est Cr Clr Drug Dosing ml/min Est GFR ( Amer) Est GFR (Non-Af Amer) BUN/Creatinine Ratio (10-20) Glucose (70-99) mg/dl POC Glucose 164 H (70-99) Calcium (8.5-10.1) mg/dl 01/17/19 Range/Units 16:38 WBC (4.8-10.8) K/uL RBC (4.7-6.1) M/uL Hgb (14.0-18.0) g/dL Hct (42-52) % MCV (80-100) fL MCH (25-34) pg MCHC (32-36) g/dL RDW Std Deviation (36.4-46.3) fL RDW Coeff of Yuki (11.5-14.5) % Plt Count (130-400) K/uL MPV (7.4-10.4) fL Sodium (136-145) mmol/L Potassium (3.5-5.1) mmol/L Chloride (98-107) mmol/L Carbon Dioxide (21-32) mmol/L Anion Gap (3-11) BUN (7-18) mg/dl Creatinine (0.6-1.4) mg/dl Est Cr Clr Drug Dosing ml/min Est GFR ( Amer) Est GFR (Non-Af Amer) BUN/Creatinine Ratio (10-20) Glucose (70-99) mg/dl POC Glucose 164 H (70-99) Calcium (8.5-10.1) mg/dl PG Care Time/CCT Total # of Minutes Spent Total Time Spent with Patient: Total time spent is greater than 50% in coordination of care (as documented) at patient's floor/unit and/or counseling patient: (1) GI bleed GI bleed type/associated pathology: unspecified gastrointestinal hemorrhage type Qualified Code(s): K92.2 - Gastrointestinal hemorrhage, unspecified (2) Anemia Anemia type: unspecified type Qualified Code(s): D64.9 - Anemia, unspecified
[2019-01-18] MEDS ORDERED: INSULIN GLARGINE SOLOSTAR 100 UNITS/ML 3 ML PEN SC SCH (16:30)
[2019-01-19] MEDS: LEVOTHYROXINE SODIUM 50 MCG TABLET PO SCH (05:17)
[2019-01-19] MEDS: PIPERACILLIN/TAZOBACTAM 4.5 GM in DEXTROSE 5% 100 ML IV SCH (05:17)
[2019-01-19 06:58] LABS: Hematocrit (blood only) 24.3 % (42-52); Hemoglobin 8.1 g/dL (14.0-18.0); Mean Corpuscular Hemoglobin 27.1 pg (25-34); Mean Corpuscular Hgb Conc 33.3 g/dL (32-36); Mean Corpuscular Volume 81.3 fL (80-100); Mean Platelet Volume 9.2 fL (7.4-10.4); Platelet Count 161 K/uL (130-400); RDW Coefficient of Variation 13.9 % (11.5-14.5); RDW Standard Deviation 41.4 fL (36.4-46.3); Red Blood Count 2.99 M/uL (4.7-6.1); White Blood Count 4.51 K/uL (4.8-10.8)
[2019-01-19 07:33] LABS: BUN Creatinine Ratio 15.2 (10-20); Calcium 9.3 mg/dl (8.5-10.1); Creatinine Clr Calc Pharmacy 36.7 ml/min; Est GFR (Non-African American) 19.8; Potassium 4.3 mmol/L (3.5-5.1)
[2019-01-19] MEDS: carvediloL 12.5 MG TAB PO SCH (08:21)
[2019-01-19] MEDS: DULOXETINE HCL 30 MG CAP PO SCH (08:22)
[2019-01-19] MEDS: PANTOprazole 40 MG TAB PO SCH (08:22)
[2019-01-19] MEDS: ATORVASTATIN 40 MG TAB PO SCH (08:22)
[2019-01-19] MEDS: DOCUSATE SODIUM 100 MG CAP PO SCH ×2 (08:22→08:31)
[2019-01-19] MEDS: LOSARTAN POTASSIUM 50 MG TAB PO SCH (08:22)
[2019-01-19] MEDS: BUMETANIDE 1 MG TAB PO SCH ×2 (08:23→17:56)
[2019-01-19] MEDS: GABAPENTIN 300 MG CAP PO SCH (08:23)
[2019-01-19] MEDS: INSULIN ASPART 100 UNITS/ML 3 ML PEN SC SCH ×3 (08:27→17:56)
--- NOTE | 2019-01-19 13:43 | Discharge Summary ---
Date of Service January 19, 2019 Admission HPI Per Admitting Provider Mr. Snell is a 38 year old male with past medical history of Type I DM, CKD Stage III, Anemia of chronic disease, Obesity, HTN, HLD, Depression and venous stasis ulcers of both lower extremities who presented with dizziness. He has been receiving IV antibiotic infusions with Ce[facility]idime at [facility] per ID recs, most recent infusion was this morning. He was evaluated at the wound clinic following appointment -- pt. developed dizziness & confusion but denies syncopal episode Blood glucose was 30 and oral glucose/amp D5W administered to the patient. BG improved to >200. He denies LOC, chest pain, SOB, vision changes, headache, N/V, constipation or diarrhea. Hgb was 6.9 on labs from 01/12; pt. reports h/o anemia but has never had a colonoscopy or EGD. He has BMs every 2-3 days; denies melena, hematochezia at home. ER course: Hgb was 6.8; Hct 21.1. Creatinine is currently at baseline. Blood glucose was 70. Will admit for further work up of possible GI bleed and treatment of hyperglycemia. Principal Diagnosis anemia Discharge Exam Constitutional WD/WN, vitals as above Respiratory normal respiratory effort, lungs clear to auscultation Cardiovascular RRR, no murmur, no edema Gastrointestinal (Abdomen) Inspection/Auscultation: abdomen normal to inspection, normal bowel sounds and + abdominal edema; abdomen not distended Percussion/Palpation: abdomen soft; abdomen nontender Musculoskeletal no cyanosis or clubbing, extremities motor strength 5/5 Skin no rashes, warm and dry Neurologic moves all extremities and awake Psychiatric A+Ox3, euthymic affect Discharge Data Allergies Allergy/AdvReac Type Severity Reaction Status Date / Time Influenza Virus Vaccines Allergy Intermediate UNKNOWN Verified 01/14/19 09:49 lisinopril Allergy Intermediate COUGH Verified 01/14/19 09:49 Consultations 01/14/19 16:58 Consult Gastroenterology Routine Consult Infectious Diseases Routine 01/14/19 18:41 Consult Case Management - Discharge Planning Routine 01/18/19 10:18 Consult [facility] weblogic developer Routine Procedures Performed Operation Date: 01/15/19 09:30 Actual Procedures p EGD Polypectomy - Mal Ndiaye MD Hospital Course (1) Anemia: - Hgb decreased to 6.8 on admission; baseline hgb ~8-10 in setting of anemia of chronic disease with CKD stage III. - Concern for upper GI bleed -- FOBT + in ER. - Received 2 units pRBCs on admission & on 01/16 due to recurrent anemia. - Monitor H/H daily -- has been stable over last 24 hours in the 8s - Hold home ASA. - No indication for iron replacement per iron panel. - repeat CBC tomorrow (2) GI bleed: - Concern for upper GI bleed in setting of acute anemia; no episodes of melena during this admission. - FOBT was + in the ER. - Tolerating regular diet. - PPI PO BID - transition to daily at discharge. - GI consulted, appreciate input. S/p EGD on 01/15, showed gastric polyp - biopsy was negative. Unclear if this was source of bleeding. (3) Hypoglycemia: - BG 30 in the wound clinic, responded well to treatment. - Type I diabetic -- pharmacy following for glycemic management. - Hgb A1C was 8.8 (may not be accurate, was collected following blood transfusion) - Discharge regimen: Toujeo 20 units qhs, Novolong 10 units ac (previously on 20 units BID) (4) Type 1 diabetes: - A1C was 8.8. - See above. (5) Dizziness: - Likely multi-factorial related to anemia and hypoglycemia. - Fall precautions. (6) Diabetic peripheral neuropathy associated with type 1 diabetes mellitus: - Continue Gabapentin 600 mg BID as prescribed. (7) Venous stasis ulcers of both lower extremities: - Follows with the wound clinic and ID; most recent wound culture on 12/31 showed Pseudomonas, coag neg Staph, Corynebacterium species. - Received daily Ce[facility]azidime infusions in [facility]; ID consulted, changed to Zosyn per most recent C&S. - Wound care nurse following for dressing changes -- wound care changed dressings today - Resumed home Bumex 2 mg PO BID. - Case management following - due to inability to get to the [facility] on weekends due to transportation, will receive IV abx at home with HH as well as wound care (8) CKD stage 3 due to type 1 diabetes mellitus: - Creatinine currently at baseline. - Hold nephrotoxic meds. (9) High cholesterol: - Continue home statin. (10) Hypertension: - Continue Coreg and Losartan as prescribed. - Resumed Bumex 2 mg BID. (11) Depression: - Continue home Cymbalta 90 mg daily as prescribed. (12) Hypothyroidism: - Continue Synthroid. - TSH is 3.570. (13) Obesity: - BMI 48.9. - Encourage weight loss and exercise. (14) Hyponatremia: - Na level trending down, now improved after restarting Bumex. - will have weekly cmp drawn for monitoring of abx (15) DVT prophylaxis: - SCDs; holding pharmacologic ppx in setting of bleed. Dispo: DC home with hh Total Time Total Time Spent Total Time Spent (In Minutes): greater than 30 minutes Discharge Plan Discharge Items Patient Disposition: Home - Self-Care Reason For Visit: GI BLEED Discharge Diagnosis: Upper GI bleed, Acute on Chronic Anemia, Venous stasis with bilateral lower extremity wounds Condition on Discharge: Fair Activity: As commented below Exercise/Sports: Gradually increase as tolerated Non-emergency contact: Primary Care Provider Call non-emergency contact if: you have any medication questions, your symptoms worsen, your pain is not controlled, your pain is worsening, your pain is unusual for you, your pain is concerning for you, you have a fever, your wound has increased redness, your wound has increased drainage and your wound pain has increased Follow-up/Referrals: [facility] [Provider Group] - 01/21/19 11:00 am (Please, follow up at [facility] on SaturdayJanuary 21 at 11:00 am. *You will also see Dr. Castaneda while you are at the Clinic. If you need to change this appointment, call the clinic at [phone].) Maki Peterson MD [Primary Care Provider] - 01/23/19 12:00 pm (Please, follow up with Dr. Peterson on SaturdayJanuary 23 at 12:00 pm. *If you need to change this appointment, call the office at [phone].) Diet: Carb Count or DM1 and Heart Healthy Ambulatory Orders: Complete Blood Count no Diff (Timed) Timeframe: 20190120 Location: Determined by Patient Ordered By: Qiana Elizalde Comprehensive Metabolic Panel (Routine) Timeframe: 20190120 Location: Determined by Patient Ordered By: [place] Guillard Addtl Attending Provider Instructions: 1. Acute anemia in setting of anemia of chronic disease from chronic kidney disease stage III * A script was provided for lab work -- please have a CBC collected on Saturday 01/20. Results will be faxed to your primary care provider. * Please hold home Aspirin due to concern for acute bleed. * Please follow up with your primary care provider to discuss this hospitalization. 2. GI bleed * Please take Protonix 40 mg daily -- prescription was sent to your pharmacy. * Monitor lab work -- see above. 3. Diabetes Mellitus * Please use Toujeo 20 units at bedtime. * Please use Novolog 10 units with meals (previously 20 units twice daily) * Monitor blood glucose levels with meals and at bedtime; record all readings and discuss with your PCP. 4. Venous stasis ulcers of both lower extremities * Please resume Ceftazidime infusions with home health tomorrow. They should also provide wound care for your legs * Continue Bumex 2 mg by mouth twice daily. * Infusion company to monitor complete blood count and comprehensive metabolic panel per their protocol to monitor your lab work while receiving IV antibiotics - at least once per week these will need drawn by home health 4. Please schedule appointment with primary care provider in 1-2 weeks. 5. An appointment will be scheduled with infectious disease in 1-2 weeks; you will need to continue IV antibiotic infusions until you are evaluated by Dr. Castaneda. Pending Studies at Discharge: No Stand-Alone Forms: My [facility] Medications and DC Order Prescriptions: New pantoprazole 40 mg Tablet,Delayed Release (Dr/Ec) 40 mg PO DAILY 30 Days Qty: 30 RF: 0 ceftazidime 1 gram recon soln 1 gm IV Q24H Qty: 25 RF: 0 Continued levothyroxine 50 mcg capsule 50 mcg PO HS RF: 0 atorvastatin [Lipitor] 80 mg tablet 80 mg PO HS Qty: 30 RF: 5 bumetanide 2 mg tablet 2 mg PO BID Qty: 180 RF: 3 carvedilol 12.5 mg tablet 12.5 mg PO BID Qty: 90 RF: 3 losartan 100 mg tablet 100 mg PO QAM Qty: 90 RF: 3 pen needle, diabetic [BD Ultra-Fine Eladia Pen Needle] 32 gauge x 5/32" needle .ROUTE .MEDSUPPLY Qty: 200 RF: 3 gabapentin 300 mg capsule 600 mg PO BID Qty: 120 RF: 5 OneTouch Verio strip .ROUTE .MEDSUPPLY Qty: 10 RF: 0 lancets [OneTouch Delica Lancets] 30 gauge misc .ROUTE .MEDSUPPLY Qty: 25 RF: 0 Iv Antibiotic 0 mg 1 dose IV DIRECTED RF: 0 acetaminophen [Tylenol Extra Strength] 500 mg Tablet 1,000 mg PO QAM PRN (Reason: Pain) RF: 0 acetaminophen [Tylenol Extra Strength] 500 mg Tablet 1,500 mg PO HS PRN (Reason: Pain) RF: 0 ergocalciferol (vitamin D2) [Vitamin D2] 50,000 unit capsule 50,000 unit PO WK RF: 0 Changed Toujeo SoloStar U-300 Insulin 300 unit/mL (1.5 mL) insulin pen 20 unit subcut HS Qty: 0 RF: 0 duloxetine 60 mg capsule,delayed release(DR/EC) 90 mg PO DAILY Qty: 0 RF: 0 Novolog Flexpen U-100 Insulin 100 unit/mL (3 mL) insulin pen 10 units SQ AC Qty: 0 RF: 0 Discontinued aspirin 81 mg Tablet,Delayed Release (Dr/Ec) 81 mg PO HS RF: 0 Discharge Orders: Discharge Order (Routine); Ordered 01/19/19 Ordered By: Qiana Elizalde Admission Data Admit Date/Time: 01/14/19 16:51 Attending Provider: Dougie Villatoro Admit Provider: Ester Saucedo Primary Care Provider: Maki Peterson Other Providers: Amita Castaneda ; Ismael Schwab ; Dougie Villatoro
== END 2019-01-19 18:14 | disposition home health service (06) | DRG 378 ==
LOC: ED 12:09 → 2S 12:09 → SUATTDRO 16:51 → OBSVTOIN 16:57 → 2S 17:46 → 2W 01-16 08:42
DX: I83.019 Varicose veins of right lower extremity with ulcer of unspecified site; B96.5 Pseudomonas (aeruginosa) (mallei) (pseudomallei) as the cause of diseases classified elsewhere; E10.649 Type 1 diabetes mellitus with hypoglycemia without coma; E87.1 Hypo-osmolality and hyponatremia; E10.22 Type 1 diabetes mellitus with diabetic chronic kidney disease; E66.01 Morbid (severe) obesity due to excess calories; I83.029 Varicose veins of left lower extremity with ulcer of unspecified site; E10.51 Type 1 diabetes mellitus with diabetic peripheral angiopathy without gangrene; D63.8 Anemia in other chronic diseases classified elsewhere; Z79.82 Long term (current) use of aspirin; F32.9 Major depressive disorder, single episode, unspecified; E03.9 Hypothyroidism, unspecified; Z68.42 Body mass index [BMI] 45.0-49.9, adult; N18.3 Chronic kidney disease, stage 3 (moderate); K92.2 Gastrointestinal hemorrhage, unspecified; I12.9 Hypertensive chronic kidney disease with stage 1 through stage 4 chronic kidney disease, or unspecified chronic kidney disease

== ENCOUNTER 2019-03-02 09:06 | Inpatient (IN) ==
--- NOTE | 2019-03-02 10:16 | Emergency Department Note ---
ED Provider Note CHIEF COMPLAINT: Cough HISTORY OF PRESENTING ILLNESS: This is a 38-year-old male past medical history significant for hypertension, type 1 diabetes, chronic kidney disease stage IV, hypothyroidism, chronic venous insufficiency, lymphedema, anemia, depression, and morbid obesity, who presents to the emergency department by private vehicle today with complaint of a cough that has been ongoing for a few months. Patient states that the cough seemed to get better and then started getting worse again recently, he states that his brother was concerned and told him to get checked today. He states the cough is worse at night when he lies flat, and he feels some shortness of breath and a feeling like he is choking when he lies flat. He denies any chest pain. He denies shortness of breath at rest or with exertion more than usual. He takes Bumex for his lymphedema and notes that he has been peeing normally for his baseline. He denies any worsening swelling in his legs than usual. The cough is dry and nonproductive, he denies any hemoptysis. He denies any fevers or chills. He denies any dizziness or syncope. He denies any back pain, abdominal pain, nausea or vomiting, urinary symptoms, or unusual rash. He rates his pain level as 0/10. REVIEW OF SYSTEMS: A complete 10 point review of systems was reviewed with the patient with pertinent positives and negatives as per history of present illness. All else were negative. PAST MEDICAL HISTORY: Hypertension, hyperlipidemia, hypothyroidism, chronic kidney disease, type 1 diabetes, anemia, depression, venous stasis ulcers, lymphedema, morbid obesity SOCIAL HISTORY: Lives at home with his brother, denies tobacco use, admits to some alcohol use ALLERGIES: Reviewed in chart and with the patient PHYSICAL EXAM: CONSTITUTIONAL: Pleasant and cooperative, but with a flat affect. Nontoxic- appearing and in no acute distress. Slightly pale. Obese. HEENT: Normocephalic, atraumatic. PERRL, EOMI. Pharynx normal. NECK: Supple, full active range of motion without discomfort. No cervical adenopathy. RESPIRATORY: Diminished in the bases bilaterally with few fine crackles, ot herwise clear with no wheezes, rhonchi or stridor. Equal expansion bilaterally. CARDIOVASCULAR: Regular rate and rhythm with no murmurs, rubs or gallops. Normal peripheral perfusion. Bilateral lower extremity lymphedema, 3-4+. GASTROINTESTINAL: Soft, nontender, nondistended, obese abdomen. Bowel sounds present in all quadrants. No CVA tenderness bilaterally. MUSCULOSKELETAL: Full range of motion of all joints without discomfort. INTEGUMENTARY: No rash or other significant dermatologic conditions noted. NEUROLOGIC: Alert and oriented X 4 with normal affect. Normal strength and sensation in all 4 tremors. Normal speech. Normal gait observed. ED COURSE AND MEDICAL DECISION MAKING: CC: Patient presenting with complaint of cough DIFFERENTIAL DIAGNOSIS: Includes, but not limited to viral URI, bronchitis, pneumonia, COPD, asthma, CHF, ACS, acute on chronic kidney failure, PE, among others. INTERPRETATION OF LABS: Mild leukopenia and anemia appear consistent with baseline, normal platelets, hyperkalemia, hyperglycemia, no other significant electrolyte abnormalities, significant the elevated BUN and creatinine increased from baseline, normal liver enzymes. Coagulation factors within normal limits. Negative troponin. Pro-BNP is elevated. Beta hydroxybutyric acid level is w ithin normal limits. IMAGING: XR chest 2V PA/lateral CLINICAL HISTORY: chronic cough COMPARISON STUDY: 10/09/2018 FINDINGS: The heart is enlarged. There is diffuse elevation of interstitium like ly secondary to pulmonary edema. Interstitial inflammatory processes could appear similar but is statistically less likely. There is no lobar consolidation. There are no large pleural effusions. IMPRESSION: Pulmonary edema pattern. Clinical and radiographic follow-up is recommended EKG: Shows normal sinus rhythm with a rate of 99 bpm, normal intervals, no ST or T wave abnormalities, no peaked T waves, no ectopy, no significant change when compared to previous EKG from 01/14/2019by my interpretation. MEDICATION RECONCILIATION: I attest that I have personally reviewed the patient's current medication list. INITIAL VITAL SIGNS REVIEW: I reviewed the patient's initial vital signs and interpret them as follows: T: Afebrile; BP: Hypertensive; HR: Mildly tachycardic; RR: Within normal limits; Pulse Ox: Within normal limits on room air. Blood pressure screening: The patient was found to have an elevated blood pressure and was referred to the inpatient team for further management. MDM SUMMARY: Patient was evaluated at bedside, history and physical exam performed. Patient is alert and oriented, in no acute distress, resting calmly in stretcher. Patient is a very poor historian, and is not able to provide much context for his symptoms. He denies any chest pain or significant shortness of breath, but does note that his cough is worse at night and he feels like he is choking when he lies flat. Lungs are fairly clear throughout, slightly diminished with few fine crackles in the bases. No increased work of breathing, tachypnea, or hypoxia noted. Patient is noted to be quite hypertensive, he notes that he did not take his blood pressure medicine this morning. Initial orders were placed for chest x-ray, this was reviewed and is concerning for pulmonary edema. Additional orders were placed for labs including a troponin and pro-BNP and EKG to evaluate for pulmonary edema. IV hydralazine was ordered for the patient's hypertension, as well as his home doses of blood pressure medication. Patient discussed with Dr. Espinoza, who agrees with my assessment, plan, and disposition. Labs and imaging reviewed as above, labs are concerning for significant increase in his BUN and creatinine from baseline with hyperkalemia. There are no concerning EKG changes at this time. Troponin is negative. Significantly hyperglycemic on labs and on repeat [id number] blood glucose. 10 units regular insulin ordered. Patient reassessed multiple times throughout ED stay, he remains significantly hypertensive, but is without any complaints of chest pain or shortness of breath. Given the patient's concerning findings for pulmonary edema in the setting of worsening of his renal function and hyperkalemia, I did recommend to the patient that he be admitted, he was agreeable to this plan. I [facility] on the [facility] evaluate the patient for admission. Patient was stable at time of admission. The chart was completed utilizing [employer] Speech voice recognition software. Grammatical errors, random word insertions, pronoun errors, and incomplete sentences are an occasional consequence of this system due to software l imitations, ambient noise, and hardware issues. Any formal questions or concerns about the content, text, or information contained within the body of this dictation should be directly addressed to the nurse practitioner for clarification. Impression & Plan Acute renal insufficiency, Hypertension, Hyperglycemia due to type 1 diabetes m ellitus, Pulmonary edema, Acute hyperkalemia Past Med/Surg History Medical History Anemia (Chronic) Bilateral swelling of feet (Chronic) Chronic kidney disease, stage 4 (severe) (Chronic) Depression (Chronic) Diabetic peripheral neuropathy associated with type 1 diabetes mellitus (Chroni c) Diabetic retinopathy (Chronic) H/O diabetes mellitus (Chronic) H/O febrile seizure (Resolved) High cholesterol (Chronic) Hypertension (Chronic) Hypothyroidism (Chronic) Intellectual functioning disability (Chronic) Leg ulcer (Chronic) Obesity (Chronic) Type 1 diabetes (Chronic) Venous stasis ulcers of both lower extremities (Chronic) Vitamin deficiency (Chronic) Surgical History H/O detached retina repair S/P arteriovenous (AV) fistula creation Family History Other No significant family history Social History Preferred Language: Greek Communication Ability: Effective Visual Impairment: No Limitations Hearing Ability: Normal [employer] Required: No Beliefs That Will Affect Care: None marital status: Single Current Living Situation: Family Current Living Situation Comment: lives with brother, trying to get into "[employer], [employer] 8 housing" 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" Feels Safe at Home: Yes Smoking Status: Never smoker Hx Alcohol Use: Yes Alcohol type: beer Hx Substance Use: No Dental Care, Regularly: No Physical Activity Frequency: Does not Exercise Seatbelt Use: always Sunscreen Use: No Results & Data Vital Signs Vital Signs - 24 hr 03/02/19 16:32 Pulse Rate [Finger] 95 H Respiratory Rate 20 Respiratory Effort / Characteristics Non-Labored Spontaneous Respiratory Depth Normal Respiratory Pattern Regular Blood Pressure [Right Arm] 193/101 H Blood Pressure Mean [Right Arm] 131 Pulse Oximetry 98 Oxygen Delivery Method Room Air Laboratory Data Result diagrams: 03/03/19 06:41 03/03/19 08:15 Lab Results 03/02/19 03/02/19 03/02/19 Range/Units 11:30 11:30 11:30 WBC 4.50 L (4.8-10.8) K/uL RBC 2.95 L (4.7-6.1) M/uL Hgb 8.1 L (14.0-18.0) g/dL Hct 24.8 L (42-52) % MCV 84.1 (80-100) fL MCH 27.5 (25-34) pg MCHC 32.7 (32-36) g/dL RDW Std Deviation 47.7 H (36.4-46.3) fL RDW Coeff of Yuki 15.4 H (11.5-14.5) % Plt Count 137 (130-400) K/uL MPV 10.0 (7.4-10.4) fL Immature Gran % (Auto) 0.2 % Neut % (Auto) 67.2 % Lymph % (Auto) 22.2 % [place] % (Auto) 7.3 % Eos % (Auto) 2.9 % Baso % (Auto) 0.2 % Immature Gran # (Auto) 0.01 (0.00-0.02) K/uL Neut # (Auto) 3.02 (1.4-6.5) K/uL Lymph # (Auto) 1.00 L (1.2-3.4) K/uL [place] # (Auto) 0.33 (0.11-0.59) K/uL Eos # (Auto) 0.13 (0-0.5) K/uL Baso # (Auto) 0.01 (0-0.2) K/uL PT 10.9 (9.0-12.0) Seconds INR 1.1 (0.9-1.1) APTT 27.0 (21.0-31.0) Seconds PTT Ratio 1.0 Sodium 137 (136-145) mmol/L Potassium 5.7 H (3.5-5.1) mmol/L Chloride 107 (98-107) mmol/L Carbon Dioxide 22 (21-32) mmol/L Anion Gap 8.0 (3-11) BUN 95 H (7-18) mg/dl Creatinine 4.47 H (0.6-1.4) mg/dl Est Cr Clr Drug Dosing Not Reportable Est GFR ( Amer) 18.2 Est GFR (Non-Af Amer) 15.7 BUN/Creatinine Ratio 21.2 H (10-20) Glucose 415 H* (70-99) mg/dl POC Glucose (70-99) Calcium 8.9 (8.5-10.1) mg/dl Total Bilirubin 0.4 (0.2-1) mg/dl AST 32 (15-37) U/L ALT 47 (12-78) U/L Alkaline Phosphatase 258 H (45-117) U/L Troponin I < 0.015 (0-0.045) ng/ml NT-Pro-B Natriuret Pep 2790 H (0-450) pg/ml Total Protein 7.6 (6.4-8.2) gm/dl Albumin 3.1 L (3.4-5.0) gm/dl Globulin 4.5 H (2.5-4.0) gm/dl Albumin/Globulin Ratio 0.7 L (0.9-2) Beta-Hydroxybutyric Acd 2.54 (0.2-2.81) mg/dl 03/02/19 Range/Units 17:23 WBC (4.8-10.8) K/uL RBC (4.7-6.1) M/uL Hgb (14.0-18.0) g/dL Hct (42-52) % MCV (80-100) fL MCH (25-34) pg MCHC (32-36) g/dL RDW Std Deviation (36.4-46.3) fL RDW Coeff of Yuki (11.5-14.5) % Plt Count (130-400) K/uL MPV (7.4-10.4) fL Immature Gran % (Auto) % Neut % (Auto) % Lymph % (Auto) % [place] % (Auto) % Eos % (Auto) % Baso % (Auto) % Immature Gran # (Auto) (0.00-0.02) K/uL Neut # (Auto) (1.4-6.5) K/uL Lymph # (Auto) (1.2-3.4) K/uL [place] # (Auto) (0.11-0.59) K/uL Eos # (Auto) (0-0.5) K/uL Baso # (Auto) (0-0.2) K/uL PT (9.0-12.0) Seconds INR (0.9-1.1) APTT (21.0-31.0) Seconds PTT Ratio Sodium (136-145) mmol/L Potassium (3.5-5.1) mmol/L Chloride (98-107) mmol/L Carbon Dioxide (21-32) mmol/L Anion Gap (3-11) BUN (7-18) mg/dl Creatinine (0.6-1.4) mg/dl Est Cr Clr Drug Dosing Est GFR ( Amer) Est GFR (Non-Af Amer) BUN/Creatinine Ratio (10-20) Glucose (70-99) mg/dl POC Glucose 415 H* (70-99) Calcium (8.5-10.1) mg/dl Total Bilirubin (0.2-1) mg/dl AST (15-37) U/L ALT (12-78) U/L Alkaline Phosphatase (45-117) U/L Troponin I (0-0.045) ng/ml NT-Pro-B Natriuret Pep (0-450) pg/ml Total Protein (6.4-8.2) gm/dl Albumin (3.4-5.0) gm/dl Globulin (2.5-4.0) gm/dl Albumin/Globulin Ratio (0.9-2) Beta-Hydroxybutyric Acd (0.2-2.81) mg/dl Administered Medications Atorvastatin Calcium (Lipitor) 80 mg PO HS CHASE Stop: 04/01/19 20:59 Last Admin: 03/02/19 21:32 Dose: 80 mg Documented by: [id number] Duloxetine HCl (Cymbalta) 60 mg PO QAM CHASE Stop: 04/01/19 20:22 Last Admin: 03/03/19 08:30 Dose: 60 mg Documented by: [id number] Admin: 03/02/19 21:32 Dose: 60 mg Documented by: [id number] Gabapentin (Neurontin) 600 mg PO BID CHASE Stop: 04/01/19 20:59 Last Admin: 03/03/19 08:30 Dose: 600 mg Documented by: [id number] Admin: 03/02/19 21:32 Dose: 600 mg Documented by: [id number] Bumetanide 1.5 mg/ Syringe 6 mls @ 4 mls/min IV BID CHASE Stop: 04/02/19 08:59 Last Admin: 03/03/19 11:44 Dose: 4 mls/min Documented by: [id number] Insulin Aspart (Novolog Flexpen) 0 units SC ACHS CHASE Stop: 04/01/19 20:59 Last Admin: 03/03/19 12:26 Dose: 21 units Documented by: [id number] Cosigned by: [id number] Admin: 03/03/19 08:28 Dose: 14 units Documented by: [id number] Cosigned by: [id number] Admin: 03/02/19 21:48 Dose: 10 units Documented by: [id number] Cosigned by: [id number] Levothyroxine Sodium (Synthroid) 50 mcg PO HS CHASE Stop: 04/01/19 20:59 Last Admin: 03/02/19 21:32 Dose: 50 mcg Documented by: [id number] Pantoprazole Sodium (Protonix) 40 mg PO HS CHASE Stop: 04/01/19 20:59 Last Admin: 03/02/19 21:33 Dose: 40 mg Documented by: [id number] Discontinued Medications Carvedilol (Coreg) 12.5 mg PO NOW ONE Stop: 03/02/19 14:06 Last Admin: 03/02/19 15:09 Dose: 12.5 mg Documented by: [id number] Carvedilol (Coreg) 12.5 mg PO BID CHASE Stop: 04/01/19 20:59 Last Admin: 03/03/19 08:30 Dose: 12.5 mg Documented by: [id number] Admin: 03/02/19 21:31 Dose: 12.5 mg Documented by: [id number] Epoetin Eloy (Procrit) 20,000 units SQ ONE ONE Stop: 03/03/19 09:01 Last Admin: 03/03/19 11:44 Dose: 20,000 units Documented by: [id number] Hydralazine HCl (Hydralazine Hcl) 10 mg IV NOW STA Stop: 03/02/19 12:34 Last Admin: 03/02/19 12:58 Dose: 10 mg Documented by: [id number] Bumetanide 1.5 mg/ Syringe 6 mls @ 4 mls/min IV NOW STA Stop: 03/02/19 18:44 Last Admin: 03/02/19 19:10 Dose: 4 mls/min Documented by: [id number] Insulin Aspart (Novolog Flexpen) 10 units SC ONE ONE Stop: 03/03/19 00:31 Last Admin: 03/03/19 00:25 Dose: 10 units Documented by: [id number] Cosigned by: [id number] Insulin Glargine (Lantus Solostar Pen) 16 units SC ONE; Protocol Stop: 03/02/19 21:01 Last Admin: 03/03/19 07:00 Dose: Not Given Documented by: [id number] Insulin Glargine (Lantus Solostar Pen) 25 units SC ONE ONE Stop: 03/02/19 21:46 Last Admin: 03/02/19 21:47 Dose: 25 units Documented by: [id number] Cosigned by: [id number] Insulin Glargine (Lantus Solostar Pen) 15 units SQ BID CHASE; Protocol Stop: 04/02/19 08:59 Last Admin: 03/03/19 08:29 Dose: 15 units Documented by: [id number] Cosigned by: [id number] Insulin Human Regular (Novolin R U-100 Per Unit) 10 units SC NOW STA Stop: 03/02/19 17:40 Last Admin: 03/02/19 18:10 Dose: 10 units Documented by: [id number] Cosigned by: [id number] Losartan Potassium (Cozaar) 100 mg PO NOW STA Stop: 03/02/19 14:06 Last Admin: 03/02/19 15:09 Dose: 100 mg Documented by: [id number] Perflutren Lipid Microsphere (Definity) 2 ml IV ONCE ONE Stop: 03/03/19 07:18 Last Admin: 03/03/19 07:18 Dose: 2 ml Documented by: [id number] Discharge Plan Visit Data *Final* Discharge Date/Time: 03/02/19 20:04 Chief Complaint: Cough Stated Complaint: cough, loose stool, ED Provider: Zachary Espinoza ED Midlevel Provider: Qiana Hines Discharge Problem: Acute renal insufficiency, Hypertension, Hyperglycemia due to type 1 diabetes mellitus, Pulmonary edema, Acute hyperkalemia Patient Disposition: Admitted As Inpatient Condition: Good Discharge Instructions Interventions: ED Discharge Assessment Last Done: 03/02/19 20:04
--- NOTE | 2019-03-02 10:21 | XRay Report ---
XR chest 2V PA/lateral CLINICAL HISTORY: chronic cough COMPARISON STUDY: 10/09/2018 FINDINGS: The heart is enlarged. There is diffuse elevation of interstitium likely secondary to pulmo nary edema. Interstitial inflammatory processes could appear similar but is statistically less likely . There is no lobar consolidation. There are no large pleural effusions.[ IMPRESSION: Pulmonary edema pattern. Clinical and radiographic follow-up is recommended Electronically signed by: Warner Sanchez M.D. 03/02/2019 10:19 AM
[2019-03-02 11:43] LABS: Basophils # (auto) 0.01 K/uL (0-0.2); Basophils % (auto) 0.2 %; Eosinophils # (auto) 0.13 K/uL (0-0.5); Eosinophils % (auto) 2.9 %; Hematocrit (blood only) 24.8 % (42-52); Hemoglobin 8.1 g/dL (14.0-18.0); Immature Granulocytes # (auto) 0.01 K/uL (0.00-0.02); Immature Granulocytes % (auto) 0.2 %; Lymphocytes % (auto) 22.2 %; Mean Corpuscular Hemoglobin 27.5 pg (25-34); Mean Corpuscular Hgb Conc 32.7 g/dL (32-36); Mean Corpuscular Volume 84.1 fL (80-100); Monocytes # (auto) 0.33 K/uL (0.11-0.59); Monocytes % (auto) 7.3 %; Neutrophils # (auto) 3.02 K/uL (1.4-6.5); Neutrophils % (auto) 67.2 %; Platelet Count 137 K/uL (130-400); RDW Coefficient of Variation 15.4 % (11.5-14.5); RDW Standard Deviation 47.7 fL (36.4-46.3); Red Blood Count 2.95 M/uL (4.7-6.1)
[2019-03-02 11:56] LABS: INR 1.1 (0.9-1.1); Prothrombin Time 10.9 Seconds (9.0-12.0)
[2019-03-02 12:09] LABS: Alanine Aminotransferase 47 U/L (12-78); Albumin Globulin Ratio 0.7 (0.9-2); Albumin Level 3.1 gm/dl (3.4-5.0); Alkaline Phosphatase 258 U/L (45-117); Aspartate Aminotransferase 32 U/L (15-37); BUN Creatinine Ratio 21.2 (10-20); Bilirubin,Total 0.4 mg/dl (0.2-1); Blood Urea Nitrogen 95 mg/dl (7-18); Calcium 8.9 mg/dl (8.5-10.1); Carbon Dioxide 22 mmol/L (21-32); Chloride 107 mmol/L (98-107); Est GFR (African American) 18.2; Est GFR (Non-African American) 15.7; Globulin 4.5 gm/dl (2.5-4.0); Glucose 415 mg/dl (70-99); NT Pro B Type Natriuretic Pept 2790 pg/ml (0-450); Potassium 5.7 mmol/L (3.5-5.1); Sodium 137 mmol/L (136-145); Total Protein 7.6 gm/dl (6.4-8.2); Troponin I < 0.015 ng/ml (0-0.045)
[2019-03-02 12:28] LABS: Beta-Hydroxybutyrate 2.54 mg/dl (0.2-2.81)
[2019-03-02] MEDS ORDERED: HydrALAZINE HCL 20 MG/ML VIAL IV STA (12:33)
[2019-03-02] MEDS ORDERED: carvediloL 12.5 MG TAB PO ONE (14:05)
[2019-03-02] MEDS ORDERED: LOSARTAN POTASSIUM 50 MG TAB PO STA (14:05)
[2019-03-02] MEDS ORDERED: INSULIN HUMAN REGULAR SC STA (17:25)
[2019-03-02] MEDS ORDERED: NovoLIN-R INSULIN PER UNIT CHARGE SC STA (17:39)
[2019-03-02] MEDS ORDERED: BUMETANIDE 1.5 MG in SYRINGE 0 ML IV STA (18:43)
--- NOTE | 2019-03-02 19:03 | History & Physical Report ---
Date of Service March 02, 2019 Assessment & Plan (1) Chronic venous insufficiency: (2) Hyperglycemia due to type 1 diabetes mellitus: (3) Vitamin deficiency: (4) Hypertension: (5) Chronic kidney disease, stage 4 (severe): (6) Anemia: (7) Depression: (8) Leg ulcer: (9) Hypothyroidism: (10) Obesity: (11) Type 1 diabetes: (12) High cholesterol: (13) Pulmonary edema: 38-year-old with history of insulin-dependent diabetes mellitus type 1 (complications: Nephropathy, retinopathy, neuropathy), CKD 4 (left upper extremity AV fistula placed 06/2018-not used yet), hypertension, hyperlipidemia, anemia, hypothyroidism, vitamin D deficiency, venous stasis ulcers, depression, and anxiety presents with cough since October 2018. Found to have pulmonary edema with worsening renal function. Pulmonary edema: Likely secondary to fluid retention from worsening CKD versus CHF versus medic ation side effect in the setting of CKD as patient is on high dose of losartan Chest x-ray: Pulmonary edema BUN/creatinine 95/4.47 - GFR 15 Baseline Cr 3.5 and GFR 20 Albumin 3.1 Echo May 2017: EF 55 to 60% borderline LVH, LA mildly dilated Troponin negative Hold home p.o. Bumex 2 mg twice daily, hold home losartan Started on Bumex IV 1.5 mg twice daily Echo ordered Nephrology consulted Continue to monitor BMP CKD 4: Concern for worsening renal function Left upper extremity aVF June 2018 placed As above Hyperglycemia: History of IDDM1 BSG 415 on arrival, beta hydroxybutyrate normal, 2.5 Received 10 units regular insulin in the ED Continue home Lantus 20 mg at bedtime Started on SSI, NovoLog Patient appears dry however given significant pulmonary edema no fluids administered, p.o. fluids only Check a.m. A1c Hyperkalemia Likely in the setting of CKD 4 No EKG changes Given 10 units regular insulin Continue to monitor Anemia: Hgb 8.1 Baseline hgb ~8 likely anemia of chronic disease with CKD4 No concern for bleeding at this time Continue to monitor High cholesterol: Continue home Lipitor Hypertension: Continue Coreg Hold home losartan in the setting of worsening renal function Started on Bumex 1.5 mg IV twice daily for pulmonary edema Hypothyroidism: Continue Synthroid Diabetic peripheral neuropathy associated with type 1 diabetes mellitus: Continue Gabapentin Venous stasis ulcers of both lower extremities: Follows with the wound clinic and ID Wound care consulted Depression: Continue home Cymbalta Obesity: BMI 49.6 Encourage weight loss and exercise. FEN/GI: DM1 diet, hyperkalemia as above continue to monitor electrolytes, no IVF DVT prophylaxis: SCDs, encourage ambulation Code: Full Disposition: MedSurg with telemetry History of Present Illness Primary Care Provider: Maki Peterson MD 38-year-old with history of insulin-dependent diabetes mellitus type 1 (complications: Nephropathy, retinopathy, neuropathy), CKD 4 (left upper extremity AV fistula placed 06/2018-not used yet), hypertension, hyperlipidemia, anemia, hypothyroidism, vitamin D deficiency, venous stasis ulcers, depression, and anxiety presents with cough since October 2018. Cough is intermittent sometimes worse than other times. Appears to fluctuate with his renal function. Denies any exertional shortness of breath or shortness of breath rest, chest pain, fever, chills, lightheadedness, increased lower extremity or abdominal edema. However cousin, who has accompanied him, reports lower extremities more swollen than previously. Also reports diarrhea-loose stools 1 times daily. History of recent antibiotics for his lower extremity ulcers. Per patient glucose usually between 200-400 at baseline. Reports last taking medications yesterday. Follows with concrete polisher, Dr. Miranda. Denies any abdominal pain, nausea, vomiting, constipation, dysuria. ED course: Found to have worsening renal function BUN/creatinine 95/4.47, hyperkalemia 5.7, and extensive pulmonary edema on chest x-ray. Glucose elevated to 415 however beta hydroxybutyrate normal. Patient was on room air. Received regular insulin 10 units, losartan 100 mg p.o., hydralazine 10 mg, Coreg 12.5 mg p.o. x1. Allergies Allergy/AdvReac Type Severity Reaction Status Date / Time Influenza Virus Vaccines Allergy Intermediate UNKNOWN Verified 03/02/19 09:53 lisinopril Allergy Intermediate COUGH Verified 03/02/19 09:53 Home Medications Home Medications Medication Instructions Recorded Confirmed Type levothyroxine 50 mcg capsule 50 mcg PO HS 09/26/18 03/02/19 History acetaminophen [Tylenol Extra 1,000 mg PO QAM PRN 10/09/18 03/02/19 History Strength] acetaminophen [Tylenol Extra 1,500 mg PO HS PRN 10/09/18 03/02/19 History Strength] ergocalciferol (vitamin D2) 50,000 unit PO TH 10/09/18 03/02/19 History [Vitamin D2] atorvastatin 80 mg tablet 80 mg PO HS #30 tab 10/21/18 03/02/19 Rx bumetanide 2 mg tablet 2 mg PO BID #180 tab 11/27/18 03/02/19 Rx blood sugar diagnostic strips #10 ea 12/01/18 02/11/19 History lancets 30 gauge #25 ea 12/01/18 02/11/19 History carvedilol 12.5 mg tablet 12.5 mg PO BID #90 tab 12/03/18 03/02/19 Rx losartan 100 mg tablet 100 mg PO QAM #90 tab 12/03/18 03/02/19 Rx pen needle, diabetic 32 gauge x #200 ea 12/03/18 02/11/19 Rx 5/32" gabapentin 300 mg capsule 600 mg PO BID #120 cap 12/17/18 03/02/19 Rx Novolog Flexpen U-100 Insulin 10 units SQ AC #0 ml 01/18/19 03/02/19 Rx duloxetine 60 mg capsule,delayed 60 mg PO QAM cap 01/21/19 03/02/19 History release insulin glargine (U-300) conc. 300 20 unit SUBCUT HS #9 ml 02/20/19 03/02/19 Rx unit/mL (1.5 mL) subcutaneous pen pantoprazole 40 mg PO HS 03/02/19 03/02/19 History Past Med/Surg History Medical History Diabetic retinopathy (Chronic) Intellectual functioning disability (Chronic) Vitamin deficiency (Chronic) Hypertension (Chronic) Chronic kidney disease, stage 4 (severe) (Chronic) H/O febrile seizure (Resolved) Anemia (Chronic) Depression (Chronic) Leg ulcer (Chronic) Bilateral swelling of feet (Chronic) Hypothyroidism (Chronic) Obesity (Chronic) 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) Type 1 diabetes (Chronic) Venous stasis ulcers of both lower extremities (Chronic) High cholesterol (Chronic) H/O diabetes mellitus (Chronic) Surgical History H/O detached retina repair S/P arteriovenous (AV) fistula creation Family History (Reviewed 03/02/19 @ 19: by Peg Cavazos MD) Other No significant family history Social History (Reviewed 03/02/19 @ 19: by Peg Cavazos MD) Preferred Language: Austrian Communication Ability: Effective Visual Impairment: No Limitations Hearing Ability: Normal [place] [employer] Required: No Beliefs That Will Affect Care: None marital status: Single Current Living Situation: Family Current Living Situation Comment: lives with brother, trying to get into "[employer], section 8 housing" 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" Other Information That Helps Us Care for You: No Feels Safe at Home: Yes Safety Concerns: Feels Safe At This Time Smoking Status: Never smoker Hx Alcohol Use: Yes Alcohol type: beer Hx Substance Use: No Dental Care, Regularly: No Physical Activity Frequency: Does not Exercise Seatbelt Use: always Sunscreen Use: No Review of Systems Review of Systems: As per HPI Physical Exam Physical Exam: General: In NAD, pleasant Neuro: A&O x 4 Pulm: CTAB equal but mildly diminished breath sounds bilaterally, no crackles appreciated CV: RRR, no m/r/g, no JVD appreciated (JVP at just above clavicle while in bed at 45 degrees head elevation) Abdomen:+BS, no TTP in all quadrants, obese abdomen LUE: AVF with good thrill and bruit appreciated LE: 1+ LE edema with compression wraps in place, no calf TTP Results & Data Vital Signs (Past 12 Hours) Vital Signs Temp Pulse Pulse Resp BP BP Pulse Ox 03/02/19 16:32 95 H 20 193/101 H 98 03/02/19 14:34 100 H 20 199/99 H 95 03/02/19 13:33 104 H 20 187/106 H 03/02/19 12:58 101 H 18 183/97 H 95 03/02/19 11:46 96 H 20 227/130 H 98 03/02/19 10:59 99 H 20 182/85 H 93 03/02/19 09:09 36.5 C 103 H 22 201/87 H 96 Laboratory Results Abnormal lab results 11/11/19 11/11/19 11/11/19 Range/Units 11:30 11:30 17:23 WBC 4.50 L (4.8-10.8) K/uL RBC 2.95 L (4.7-6.1) M/uL Hgb 8.1 L (14.0-18.0) g/dL Hct 24.8 L (42-52) % RDW Std Deviation 47.7 H (36.4-46.3) fL RDW Coeff of Yuki 15.4 H (11.5-14.5) % Lymph # (Auto) 1.00 L (1.2-3.4) K/uL Potassium 5.7 H (3.5-5.1) mmol/L BUN 95 H (7-18) mg/dl Creatinine 4.47 H (0.6-1.4) mg/dl BUN/Creatinine Ratio 21.2 H (10-20) Glucose 415 H* (70-99) mg/dl POC Glucose 415 H* (70-99) Alkaline Phosphatase 258 H (45-117) U/L NT-Pro-B Natriuret Pep 2790 H (0-450) pg/ml Albumin 3.1 L (3.4-5.0) gm/dl Globulin 4.5 H (2.5-4.0) gm/dl Albumin/Globulin Ratio 0.7 L (0.9-2) Diagnostic Findings XR chest 2V PA/lateral CLINICAL HISTORY: chronic cough COMPARISON STUDY: 10/09/2018 FINDINGS: The heart is enlarged. There is diffuse elevation of interstitium likely secondary to pulmonary edema. Interstitial inflammatory processes could appear similar but is statistically less likely. There is no lobar consolidation. There are no large pleural effusions.[ IMPRESSION: Pulmonary edema pattern. Clinical and radiographic follow-up is recommended Medications Administered Current Inpatient Medications Bumetanide 1.5 mg/ Syringe 6 mls @ 4 mls/min IV BID [facility] Stop: 04/02/19 08:59 Code Status & VTE Plan Code Status Full per discussion with patient VTE Prophylaxis Plan VTE Prophylaxis will be ordered: Yes Supervising Physician Co-Signing Physician Notes I personally interviewed and examined the patient. I agree with history of present illness and physical exam mentioned above, I also performed my own history taking and examination. Past medical history and review of system has been obtained by myself I reviewed all pertinent labs and studies Reviewed current medications I discussed and formulated of the assessment and plan mentioned above. Please refer to the Summary mentioned below. 58-year-old obese man with past medical history of diabetes, chronic kidney disease stage IV, chronic lymphedema presented to the ED with new onset cough, and ED chest x-ray showed significant pulmonary congestion and elevated blood pressure. Patient is on Bumex 2 mg p.o. twice daily at home, will admit patient to telemetry switch Bumex to 1.5 mg IV twice daily, calculate I/oh, daily weight, obtain 2D echo, monitor renal function closely, sliding scale insulin, consult concrete polisher, will add hydralazine for hypertension, meanwhile we will hold losartan due to elevated potassium and elevated renal function, MICHAEL/chronic kidney disease stage IV. General Appearance: Obese in mild acute distress Eyes: normal Sclerae, extraocular muscle intact ENT: hearing grossly normal Neck: supple Respiratory/Chest: Decreased air entry bilaterally, scattered rhonchi, bilateral basal Rales, poor inspiratory effort Cardiovascular: regular rate, rhythm, no murmur Abdomen: non tender, soft, no masses Extremities: no edema musculoskeletal: no significant swelling or inflammation in any joint Neurologic/Psychiatric: Awake alert oriented times place and person moves all extremities sensation intact cranial nerves II-12 appear to be intact Skin: normal color, warm/dry, no rash Feliz Jolley MD, [facility] hospitalist group Resident Activity Tracking Resident Involvement: Resident Care Provided Care Provided: Adult Hospital Medicine
--- NOTE | 2019-03-02 20:15 | Billing Data ---
Coding Level of Care Code 63501 Initial Inpt Care Lvl 3
[2019-03-02] MEDS ORDERED: ACETAMINOPHEN 500 MG TAB PO PRN ×2 (20:23)
[2019-03-02] MEDS ORDERED: INSULIN GLARGINE SOLOSTAR 100 UNITS/ML 3 ML PEN SC ONE ×2 (21:00→21:45)
[2019-03-02] MEDS: carvediloL 12.5 MG TAB PO SCH (21:31)
[2019-03-02] MEDS: ATORVASTATIN 40 MG TAB PO SCH (21:32)
[2019-03-02] MEDS: DULOXETINE HCL 60 MG CAP PO SCH (21:32)
[2019-03-02] MEDS: LEVOTHYROXINE SODIUM 50 MCG TABLET PO SCH (21:32)
[2019-03-02] MEDS: GABAPENTIN 300 MG CAP PO SCH (21:32)
[2019-03-02] MEDS: PANTOprazole 40 MG TAB PO SCH (21:33)
[2019-03-02] MEDS: INSULIN ASPART 100 UNITS/ML 3 ML PEN SC SCH (21:48)
[2019-03-03] MEDS ORDERED: INSULIN ASPART 100 UNITS/ML 3 ML PEN SC ONE ×3 (00:30→23:38)
[2019-03-03 07:05] LABS: Basophils # (auto) 0.01 K/uL (0-0.2); Basophils % (auto) 0.2 %; Eosinophils # (auto) 0.19 K/uL (0-0.5); Eosinophils % (auto) 4.3 %; Hemoglobin 8.3 g/dL (14.0-18.0); Lymphocytes # (auto) 1.14 K/uL (1.2-3.4); Lymphocytes % (auto) 25.6 %; Mean Corpuscular Hemoglobin 27.7 pg (25-34); Mean Corpuscular Hgb Conc 33.2 g/dL (32-36); Mean Corpuscular Volume 83.3 fL (80-100); Monocytes # (auto) 0.33 K/uL (0.11-0.59); Monocytes % (auto) 7.4 %; Neutrophils # (auto) 2.78 K/uL (1.4-6.5); Neutrophils % (auto) 62.5 %; Platelet Count 151 K/uL (130-400); RDW Coefficient of Variation 15.8 % (11.5-14.5); RDW Standard Deviation 48.1 fL (36.4-46.3); White Blood Count 4.45 K/uL (4.8-10.8)
[2019-03-03] MEDS ORDERED: PERFLUTREN LIPID MICROSPHERE (DEFINITY) IV ONE (07:17)
[2019-03-03 07:42] LABS: Calcium 9.4 mg/dl (8.5-10.1); Creatinine Clr Calc Pharmacy 31.1 ml/min; Est GFR (Non-African American) 16.4
[2019-03-03] MEDS: INSULIN ASPART 100 UNITS/ML 3 ML PEN SC SCH ×4 (08:28→21:03)
[2019-03-03] MEDS: GABAPENTIN 300 MG CAP PO SCH ×2 (08:30→21:03)
[2019-03-03] MEDS: DULOXETINE HCL 60 MG CAP PO SCH (08:30)
[2019-03-03] MEDS: carvediloL 12.5 MG TAB PO SCH (08:30)
[2019-03-03] MEDS ORDERED: EPOETIN ALFA 20,000 UNITS/ML VIAL SQ ONE (09:00)
[2019-03-03] MEDS ORDERED: INSULIN GLARGINE SOLOSTAR 100 UNITS/ML 3 ML PEN SQ SCH ×2 (09:00→21:00)
[2019-03-03 09:41] LABS: Estimated Average Glucose 174 mg/dl; Hemoglobin A1C 7.7 % (4.5-5.6)
--- NOTE | 2019-03-03 10:33 | Nephrology Consultation ---
Date of Consultation March 03, 2019 Assessment & Plan (1) Hyperglycemia due to type 1 diabetes mellitus: (2) Hypertension: Losartan held. Carvedilol increased from 12.5 milligram b.i.d. to 25 milligram b.i.d.. Remains on adjusted dose of Bumex 1.5 milligrams IV b.i.d.. Goal is to maintain an even to slightly negative fluid balance. (3) Chronic kidney disease, stage 4 (severe): Left brachiocephalic AV fistula mature for use. No emergent indication for dialysis. Patient follows with Dr. Miranda as an outpatient. He has suggests that he would prefer [facility] if needing to start dialysis. (4) Anemia: Chronic, stable. Epogen 24165 units subcu provided this morning. Iron profile will be checked tomorrow morning. (5) Leg ulcer: Wound care consult. (6) Type 1 diabetes: (7) Acute renal insufficiency: No emergent indication for dialysis. Hyperkalemia improved with management of hyperglycemia. Creatinine is stable. Electrolytes are otherwise acceptable. Renal ultrasound will be updated. Urinalysis with microscopy has been requested. Losartan is being held. I/O's and serial metabolic profile will be monitored. History of Present Illness Reason for Consultation: MICHAEL/CKD Requesting Physician: Talib Glover DO Attending Physician: Talib Glover DO History of Present Illness Mr. Ventura Snell is a 38-year-old male who was seen in consultation this morning regarding acute on chronic renal impairment. Ventura has chronic kidney disease class 4 with nephrotic range proteinuria attributed to diabetic nephropathy. He follows in the Nephrology Clinic with Dr. Miranda. The patient was most recently evaluated in the clinic in early January. At that time his baseline creatinine was 3.5 milligram/deciliter.. Urine sediment was negative for casts. Urine protein excretion was 5.5 g / day. Renal US revealed mild asymmetry and a left duplicated collecting system. Medical history is also notable for longstanding type 1 diabetes mellitus complicated by retinopathy and neuropathy. Patient has been treated with hypertension for several years. He has hypothyroidism as long as as well as a history of depression. Dustin presented to [facility] yesterday with complaints of a cough. Chest x-ray demonstrated some pulmonary vascular congestion and apparent pulmonary edema. The patient was provided with IV Bumex. He was notably hyperglycemic upon presentation. Creatinine was elevated at 4.4 milligram/deciliter. Potassium elevated at 5.7 millimole per liter. Blood glucose control improved. Patient was resting comfortably in bed this morning. He denies any complaints or concerns. Ventura [place] [facility] [place] developed well and appears ready for use. He has no uremic symptoms at this time. Renal US report 11/04: renal asymmetry due to duplicated left collecting system. There was no obstruction or mass reported Allergies Allergy/AdvReac Type Severity Reaction Status Date / Time Influenza Virus Vaccines Allergy Intermediate UNKNOWN Verified 03/02/19 09:53 lisinopril Allergy Intermediate COUGH Verified 03/02/19 09:53 Home Medications Home Medications Medication Instructions Recorded Confirmed Type levothyroxine 50 mcg capsule 50 mcg PO HS 09/26/18 03/02/19 History acetaminophen [Tylenol Extra 1,000 mg PO QAM PRN 10/09/18 03/02/19 History Strength] acetaminophen [Tylenol Extra 1,500 mg PO HS PRN 10/09/18 03/02/19 History Strength] ergocalciferol (vitamin D2) 50,000 unit PO TH 10/09/18 03/02/19 History [Vitamin D2] atorvastatin 80 mg tablet 80 mg PO HS #30 tab 10/21/18 03/02/19 Rx bumetanide 2 mg tablet 2 mg PO BID #180 tab 11/27/18 03/02/19 Rx blood sugar diagnostic #10 ea 12/01/18 02/11/19 History lancets 30 gauge #25 ea 12/01/18 02/11/19 History carvedilol 12.5 mg tablet 12.5 mg PO BID #90 tab 12/03/18 03/02/19 Rx losartan 100 mg tablet 100 mg PO QAM #90 tab 12/03/18 03/02/19 Rx pen needle, diabetic 32 gauge x #200 ea 12/03/18 02/11/19 Rx 5/32" gabapentin 300 mg capsule 600 mg PO BID #120 cap 12/17/18 03/02/19 Rx Novolog Flexpen U-100 Insulin 10 units SQ AC #0 ml 01/18/19 03/02/19 Rx duloxetine 60 mg capsule,delayed 60 mg PO QAM cap 01/21/19 03/02/19 History release insulin glargine U-300 conc 300 20 unit SUBCUT HS #9 ml 02/20/19 03/02/19 Rx unit/mL (1.5 mL) subcutaneous pen pantoprazole 40 mg PO HS 03/02/19 03/02/19 History Patient History Medical History Anemia (Chronic) Bilateral swelling of feet (Chronic) Chronic kidney disease, stage 4 (severe) (Chronic) Depression (Chronic) 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 ) Diabetic retinopathy (Chronic) H/O diabetes mellitus (Chronic) H/O febrile seizure (Resolved) High cholesterol (Chronic) Hypertension (Chronic) Hypothyroidism (Chronic) Intellectual functioning disability (Chronic) Leg ulcer (Chronic) Obesity (Chronic) Type 1 diabetes (Chronic) Venous stasis ulcers of both lower extremities (Chronic) Vitamin deficiency (Chronic) Surgical History H/O detached retina repair S/P arteriovenous (AV) fistula creation Family History Other No significant family history Social History Preferred Language: Croatian Communication Ability: Effective Visual Impairment: No Limitations Hearing Ability: Normal 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 Beliefs That Will Affect Care: None marital status: Single Current Living Situation: Family Current Living Situation Comment: lives with brother, trying to get into "[employer], section 8 housing" 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" Feels Safe at Home: Yes Smoking Status: Never smoker Hx Alcohol Use: Yes Alcohol type: beer Hx Substance Use: No Dental Care, Regularly: No Physical Activity Frequency: Does not Exercise Seatbelt Use: always Sunscreen Use: No Review of Systems Review of Systems: All systems reviewed & are unremarkable except as noted in HPI & below Physical Exam Constitutional: well developed and + well hydrated; no acute distress Eyes: no conjunctival abnormality and no scleral abnormality ENMT: Mouth: no oral mucosal abnormality and oral mucous membranes not dry Neck: normal visual inspection and trachea midline Respiratory: normal respiratory effort Auscultation: lungs clear to auscultation bilaterally Cardiovascular: Rate/Rhythm: regular rate Heart Sounds: normal S1 and normal S2 Extremities: + AV fistula; no edema Musculoskeletal: Extremities: no cyanosis and no clubbing Skin: normal turgor; no lesions Neurologic: Motor/Sensory: no tremor and no asterixis Psychiatric: Orientation: alert and oriented x 3 Results & Data Vital Signs (Past 12 Hours) Vital Signs Temp Pulse Pulse Resp BP Pulse Ox 03/03/19 07:33 36.5 C 92 H 16 179/87 H 03/03/19 04:00 37 C 83 20 138/75 95 03/03/19 00:31 88 03/02/19 23:30 36.7 C 86 20 157/78 H 94 03/02/19 22:36 96 H Laboratory Results Laboratory Results - last 24 hr 03/02/19 03/02/19 03/02/19 11:30 11:30 11:30 WBC 4.50 L RBC 2.95 L Hgb 8.1 L Hct 24.8 L MCV 84.1 MCH 27.5 MCHC 32.7 RDW Std Deviation 47.7 H RDW Coeff of Yuki 15.4 H Plt Count 137 MPV 10.0 Immature Gran % (Auto) 0.2 Neut % (Auto) 67.2 Lymph % (Auto) 22.2 Lewis % (Auto) 7.3 Eos % (Auto) 2.9 Baso % (Auto) 0.2 Immature Gran # (Auto) 0.01 Neut # (Auto) 3.02 Lymph # (Auto) 1.00 L Lewis # (Auto) 0.33 Eos # (Auto) 0.13 Baso # (Auto) 0.01 PT 10.9 INR 1.1 APTT 27.0 PTT Ratio 1.0 Sodium 137 Potassium 5.7 H Chloride 107 Carbon Dioxide 22 Anion Gap 8.0 BUN 95 H Creatinine 4.47 H Est Cr Clr Drug Dosing Not Reportable Est GFR ( Amer) 18.2 Est GFR (Non-Af Amer) 15.7 BUN/Creatinine Ratio 21.2 H Glucose 415 H* POC Glucose Estimat Average Glucose Hemoglobin A1c Calcium 8.9 Total Bilirubin 0.4 AST 32 ALT 47 Alkaline Phosphatase 258 H Troponin I < 0.015 NT-Pro-B Natriuret Pep 2790 H Total Protein 7.6 Albumin 3.1 L Globulin 4.5 H Albumin/Globulin Ratio 0.7 L Beta-Hydroxybutyric Acd 2.54 03/02/19 03/02/19 03/02/19 17:23 19:58 20:30 WBC RBC Hgb Hct MCV MCH MCHC RDW Std Deviation RDW Coeff of Yuki Plt Count MPV Immature Gran % (Auto) Neut % (Auto) Lymph % (Auto) Lewis % (Auto) Eos % (Auto) Baso % (Auto) Immature Gran # (Auto) Neut # (Auto) Lymph # (Auto) Lewis # (Auto) Eos # (Auto) Baso # (Auto) PT INR APTT PTT Ratio Sodium Potassium Chloride Carbon Dioxide Anion Gap BUN Creatinine Est Cr Clr Drug Dosing Est GFR ( Amer) Est GFR (Non-Af Amer) BUN/Creatinine Ratio Glucose POC Glucose 415 H* 378 H* 397 H* Estimat Average Glucose Hemoglobin A1c Calcium Total Bilirubin AST ALT Alkaline Phosphatase Troponin I NT-Pro-B Natriuret Pep Total Protein Albumin Globulin Albumin/Globulin Ratio Beta-Hydroxybutyric Acd 03/02/19 03/03/19 03/03/19 23:24 01:32 03:27 WBC RBC Hgb Hct MCV MCH MCHC RDW Std Deviation RDW Coeff of Yuki Plt Count MPV Immature Gran % (Auto) Neut % (Auto) Lymph % (Auto) Lewis % (Auto) Eos % (Auto) Baso % (Auto) Immature Gran # (Auto) Neut # (Auto) Lymph # (Auto) Lewis # (Auto) Eos # (Auto) Baso # (Auto) PT INR APTT PTT Ratio Sodium Potassium Chloride Carbon Dioxide Anion Gap BUN Creatinine Est Cr Clr Drug Dosing Est GFR ( Amer) Est GFR (Non-Af Amer) BUN/Creatinine Ratio Glucose POC Glucose 398 H* 342 H* 253 H Estimat Average Glucose Hemoglobin A1c Calcium Total Bilirubin AST ALT Alkaline Phosphatase Troponin I NT-Pro-B Natriuret Pep Total Protein Albumin Globulin Albumin/Globulin Ratio Beta-Hydroxybutyric Acd 03/03/19 03/03/19 03/03/19 06:41 06:41 06:41 WBC 4.45 L RBC 3.00 L Hgb 8.3 L Hct 25.0 L MCV 83.3 MCH 27.7 MCHC 33.2 RDW Std Deviation 48.1 H RDW Coeff of Yuki 15.8 H Plt Count 151 MPV 10.0 Immature Gran % (Auto) 0.0 Neut % (Auto) 62.5 Lymph % (Auto) 25.6 Lewis % (Auto) 7.4 Eos % (Auto) 4.3 Baso % (Auto) 0.2 Immature Gran # (Auto) 0.00 Neut # (Auto) 2.78 Lymph # (Auto) 1.14 L Lewis # (Auto) 0.33 Eos # (Auto) 0.19 Baso # (Auto) 0.01 PT INR APTT PTT Ratio Sodium 139 Potassium Chloride 108 H Carbon Dioxide 23 Anion Gap 8.0 BUN 90 H Creatinine 4.31 H Est Cr Clr Drug Dosing 31.1 Est GFR ( Amer) 19.0 Est GFR (Non-Af Amer) 16.4 BUN/Creatinine Ratio 21.0 H Glucose 225 H POC Glucose Estimat Average Glucose 174 Hemoglobin A1c 7.7 H Calcium 9.4 Total Bilirubin AST ALT Alkaline Phosphatase Troponin I NT-Pro-B Natriuret Pep Total Protein Albumin Globulin Albumin/Globulin Ratio Beta-Hydroxybutyric Acd 03/03/19 03/03/19 07:27 08:15 WBC RBC Hgb Hct MCV MCH MCHC RDW Std Deviation RDW Coeff of Yuki Plt Count MPV Immature Gran % (Auto) Neut % (Auto) Lymph % (Auto) Lewis % (Auto) Eos % (Auto) Baso % (Auto) Immature Gran # (Auto) Neut # (Auto) Lymph # (Auto) Lewis # (Auto) Eos # (Auto) Baso # (Auto) PT INR APTT PTT Ratio Sodium Potassium 4.7 D Chloride Carbon Dioxide Anion Gap BUN Creatinine Est Cr Clr Drug Dosing Est GFR ( Amer) Est GFR (Non-Af Amer) BUN/Creatinine Ratio Glucose POC Glucose 244 H Estimat Average Glucose Hemoglobin A1c Calcium Total Bilirubin AST ALT Alkaline Phosphatase Troponin I NT-Pro-B Natriuret Pep Total Protein Albumin Globulin Albumin/Globulin Ratio Beta-Hydroxybutyric Acd PG Care Time/CCT Total # of Minutes Spent Total Time Spent with Patient: Total time spent is greater than 50% in coordination of care (as documented) at patient's floor/unit and/or counseling patient:
--- NOTE | 2019-03-03 10:44 | Ultrasound Report ---
EXAMINATION: RENAL ULTRASOUND CLINICAL HISTORY: Acute renal insufficiency superimposed on chronic renal disease COMPARISON STUDY: CT scan performed August 2016 FINDINGS: The right kidney measures 11.3 cm. The left kidney measures 12.2 cm. There is no evidence of hydronephrosis. There are no renal masses. No bladder abnormalities are visualized. Bilateral ureteral jets were visualized. IMPRESSION : 1. No renal masses identified 2. No evidence of hydronephrosis Electronically signed by: Warner Sanchez M.D. 03/03/2019 10:43 AM
[2019-03-03] MEDS: BUMETANIDE 1.5 MG in SYRINGE 0 ML IV SCH ×2 (11:44→21:00)
--- NOTE | 2019-03-03 15:46 | Hospitalist Progress Note ---
Date of Service March 03, 2019 Assessment & Plan (1) Pulmonary edema: 38-year-old with history of insulin-dependent diabetes mellitus type 1 (complications: Nephropathy, retinopathy, neuropathy), CKD 4 (left upper extremity AV fistula placed 06/2018-not used yet), hypertension, hyperlipidemia, anemia, hypothyroidism, vitamin D deficiency, venous stasis ulcers, depression, and anxiety presents with cough since October 2018. Found to have pulmonary edema with worsening renal function. Pulmonary edema/CKD IV -Chest x-ray: Pulmonary edema -DDx: Bad diet (high salt) leading to hypervolemic state, osmotic diuresis from hyperglycemia along with [employer] diarrhea leading to volume depletion leading to fluid retention from worsening CKD, CHF (unlikely), medication side effect in the setting of CKD as patient is on high dose of losartan -BUN/creatinine 95/4.47 - GFR 15 . Baseline Cr 3.5 and GFR 20 -Albumin 3.1 -Echo May 2017: EF 55 to 60% borderline LVH, LA mildly dilated. Repeat ECHO 03/03: Mild concentric LVH. LV systolic funciton is normal. -Hold home p.o. Bumex 2 mg twice daily, hold home losartan. Cont on Bumex IV 1.5 mg BID -Daily BMP -Left upper extremity aVF June 2018 placed -No emergent indication for dialysis -Strict I's/O's -Appreciate Nephrology consult. Pt follows with Dr. Miranda as an outpatient Hyperglycemia/IDDM1 BSG 415 on arrival, beta hydroxybutyrate normal, 2.5 Increased home Lantus to 15 BID Started on SSI, NovoLog Restricting PO fluid intake as above A1c- 7.7 Anemia Hgb 8.1 Baseline hgb ~8 likely anemia of chronic disease with CKD4 No concern for bleeding at this time Epogen 07379 units 03/03 Iron Studies in AM Daily CBC HLD Continue home Lipitor Hypertension -Carvedilol increased to 25 mg BID 12.5 mg BID -Hold home losartan in the setting of worsening renal function -Started on Bumex 1.5 mg IV twice daily for pulmonary edema Hypothyroidism Continue Synthroid Diabetic peripheral neuropathy Continue Gabapentin Venous stasis ulcers of both lower extremities Follows with the wound clinic and ID Wound care consulted Depression Continue home Cymbalta FEN/GI: DM1 diet DVT prophylaxis: SCDs, encourage ambulation Code: Full Disposition: MedSurg with telemetry Supervising Physician Co-Signing Physician Notes I personally examined the patient and verified all orourke points of history and exam, discussed case, and agree with decision making with Dr Grider. Patient feeling better and breathing better. Coughing less. Notes that he was able to lay flat for his echocardiogram which he would not of been able to do beforehe notes he would have had significant coughing fits then. He is not sure if his legs are more swollen than before, but notes that his vision precludes him from really being able to tell, but his brother notes that he appears more swollen to him. He is not sure about if his weight is going up or not given that he notes his weights to be rather erratic and wide swinging. On diet recall initially he talks about being very tight on sodium restriction with a good degree of accuracy, but drinks about 80 ounces of water a day, but then as we start to discuss why that is relevant he remembers having a lot of sodium recently including soup and mac & cheese with solomon. Vitals noted, in general he is awake alert pleasant no distress. HEENT normal cephalic atraumatic mucous members moist. Breathing unlabored no accessory muscle use good effort. Skin shows no rashes no pallor or icterus. Fluid overload/pulmonary edema/worsening of his baseline stage IV CKDhopefully right now at all relates to fluid overload and poor forward flow. His LV appears okay on echocardiogram, but if he is significantly volume overloaded it could theoretically even overload a healthy LV. Corroborating this is the fact that he has had rather significant sodium intake recently, as well as the fact that he does appear to be improving, both symptomatically as well as his creatinine, with diuresis. Continue to diurese, continue to follow clinically, continue to follow BMP. Reiterated importance of sodium restriction. Hypertensionuncontrolledcontinue to titrate control to slow the progression of his nephropathy. Uncontrolled type 1 diabetesdoes appear to be better controlled than before, he seems to be trying hard to make positive lifestyle changes although he still seems to be running into some difficulties. Continue to educate, continue to monitor glucoses. Otherwise as above Subjective 38 yo M found in bed this AM in NAD. No reported overnight events. States that no longer having cough or orthopnea. Was able to tolerate ECHO today, which he would not have been able to do yesterday. Upon further discussion with pt, notes that he had a few bad days of high salt intake [employer] with cans of soup and solomon. Tolerating PO intake. No other acute concerns or complaints. Review of Systems Review of Systems: All systems reviewed & are unremarkable except as noted in HPI & below Physical Exam Constitutional: WD/WN, vitals as above + obese Eyes: PERRL, conjunctivae normal, anicteric sclerae ENMT: external ear and nose normal, oropharynx normal Respiratory: mildly decreased breath sounds b/l Cardiovascular: RRR, no murmur, no edema Gastrointestinal (Abdomen): normal bowel sounds, soft, nontender, no hepatosplenomegaly Skin: AVF LUE Psychiatric: A+Ox3, euthymic affect Lymphatic: 1+ LE Edema Results & Data Vital Signs (Past 12 Hours) Vital Signs Temp Pulse Resp BP Pulse Ox 03/03/19 11:51 36.6 C 84 16 162/82 H 96 03/03/19 07:33 36.5 C 92 H 16 179/87 H 03/03/19 04:00 37 C 83 20 138/75 95 Laboratory Results Laboratory Results - last 24 hr 03/02/19 03/02/19 03/02/19 17:23 19:58 20:30 WBC RBC Hgb Hct MCV MCH MCHC RDW Std Deviation RDW Coeff of Yuki Plt Count MPV Immature Gran % (Auto) Neut % (Auto) Lymph % (Auto) [place] % (Auto) Eos % (Auto) Baso % (Auto) Immature Gran # (Auto) Neut # (Auto) Lymph # (Auto) [place] # (Auto) Eos # (Auto) Baso # (Auto) Sodium Potassium Chloride Carbon Dioxide Anion Gap BUN Creatinine Est Cr Clr Drug Dosing Est GFR ( Amer) Est GFR (Non-Af Amer) BUN/Creatinine Ratio Glucose POC Glucose 415 H* 378 H* 397 H* Estimat Average Glucose Hemoglobin A1c Calcium 03/02/19 03/03/19 03/03/19 23:24 01:32 03:27 WBC RBC Hgb Hct MCV MCH MCHC RDW Std Deviation RDW Coeff of Yuki Plt Count MPV Immature Gran % (Auto) Neut % (Auto) Lymph % (Auto) [place] % (Auto) Eos % (Auto) Baso % (Auto) Immature Gran # (Auto) Neut # (Auto) Lymph # (Auto) [place] # (Auto) Eos # (Auto) Baso # (Auto) Sodium Potassium Chloride Carbon Dioxide Anion Gap BUN Creatinine Est Cr Clr Drug Dosing Est GFR ( Amer) Est GFR (Non-Af Amer) BUN/Creatinine Ratio Glucose POC Glucose 398 H* 342 H* 253 H Estimat Average Glucose Hemoglobin A1c Calcium 03/03/19 03/03/19 03/03/19 06:41 06:41 06:41 WBC 4.45 L RBC 3.00 L Hgb 8.3 L Hct 25.0 L MCV 83.3 MCH 27.7 MCHC 33.2 RDW Std Deviation 48.1 H RDW Coeff of Yuki 15.8 H Plt Count 151 MPV 10.0 Immature Gran % (Auto) 0.0 Neut % (Auto) 62.5 Lymph % (Auto) 25.6 [place] % (Auto) 7.4 Eos % (Auto) 4.3 Baso % (Auto) 0.2 Immature Gran # (Auto) 0.00 Neut # (Auto) 2.78 Lymph # (Auto) 1.14 L [place] # (Auto) 0.33 Eos # (Auto) 0.19 Baso # (Auto) 0.01 Sodium 139 Potassium Chloride 108 H Carbon Dioxide 23 Anion Gap 8.0 BUN 90 H Creatinine 4.31 H Est Cr Clr Drug Dosing 31.1 Est GFR ( Amer) 19.0 Est GFR (Non-Af Amer) 16.4 BUN/Creatinine Ratio 21.0 H Glucose 225 H POC Glucose Estimat Average Glucose 174 Hemoglobin A1c 7.7 H Calcium 9.4 03/03/19 03/03/19 03/03/19 07:27 08:15 11:21 WBC RBC Hgb Hct MCV MCH MCHC RDW Std Deviation RDW Coeff of Yuki Plt Count MPV Immature Gran % (Auto) Neut % (Auto) Lymph % (Auto) [place] % (Auto) Eos % (Auto) Baso % (Auto) Immature Gran # (Auto) Neut # (Auto) Lymph # (Auto) [place] # (Auto) Eos # (Auto) Baso # (Auto) Sodium Potassium 4.7 D Chloride Carbon Dioxide Anion Gap BUN Creatinine Est Cr Clr Drug Dosing Est GFR ( Amer) Est GFR (Non-Af Amer) BUN/Creatinine Ratio Glucose POC Glucose 244 H 298 H Estimat Average Glucose Hemoglobin A1c Calcium Medications Administered Current Inpatient Medications Acetaminophen (Tylenol) 1,000 mg PO QAM PRN PRN Reason: Pain Stop: 04/01/19 20:22 Acetaminophen (Tylenol) 1,500 mg PO HS PRN PRN Reason: Pain Stop: 04/01/19 20:22 Atorvastatin Calcium (Lipitor) 80 mg PO HS [facility] Stop: 04/01/19 20:59 Last Admin: 03/02/19 21:32 Dose: 80 mg Documented by: Carvedilol (Coreg) 25 mg PO BID [facility] Stop: 04/02/19 20:59 Duloxetine HCl (Cymbalta) 60 mg PO QAM [facility] Stop: 04/01/19 20:22 Last Admin: 03/03/19 08:30 Dose: 60 mg Documented by: Ergocalciferol (Vitamin D2) 50,000 units PO Th@0900 [facility] Stop: 04/04/19 08:59 Gabapentin (Neurontin) 600 mg PO BID [facility] Stop: 04/01/19 20:59 Last Admin: 03/03/19 08:30 Dose: 600 mg Documented by: Bumetanide 1.5 mg/ Syringe 6 mls @ 4 mls/min IV BID [facility] Stop: 04/02/19 08:59 Last Admin: 03/03/19 11:44 Dose: 4 mls/min Documented by: Insulin Aspart (Novolog Flexpen) 0 units SC ACHS [facility] Stop: 04/01/19 20:59 Last Admin: 03/03/19 12:26 Dose: 21 units Documented by: Insulin Glargine (Lantus Solostar Pen) 20 units SQ BID [facility]; Protocol Stop: 04/02/19 20:59 Levothyroxine Sodium (Synthroid) 50 mcg PO HS [facility] Stop: 04/01/19 20:59 Last Admin: 03/02/19 21:32 Dose: 50 mcg Documented by: Pantoprazole Sodium (Protonix) 40 mg PO HS [facility] Stop: 04/01/19 20:59 Last Admin: 03/02/19 21:33 Dose: 40 mg Documented by: Resident Activity Tracking Resident Involvement: Resident Care Provided Care Provided: Adult Hospital Medicine
[2019-03-03] MEDS ORDERED: AMLODIPINE BESYLATE 5 MG TAB PO ONE (17:11)
--- NOTE | 2019-03-03 18:12 | Billing Data ---
Coding Level of Care Code 53995 Subseq Hosp Care Lvl 3
[2019-03-03] MEDS: carvediloL 25 MG TAB PO SCH (21:00)
[2019-03-03] MEDS: INSULIN GLARGINE SOLOSTAR 100 UNITS/ML 3 ML PEN SQ SCH (21:01)
[2019-03-03] MEDS: ATORVASTATIN 40 MG TAB PO SCH (21:02)
[2019-03-03] MEDS: PANTOprazole 40 MG TAB PO SCH (21:05)
[2019-03-03] MEDS: LEVOTHYROXINE SODIUM 50 MCG TABLET PO SCH (21:06)
[2019-03-03 22:19] LABS: Appearance Urine Clear (Clear); Bacteria Urine Automated Negative (Negative); Bilirubin Urine Negative (Negative); Blood Urine 1+ (Negative); Cast Urine Automated 0 /lpf (0-5); Color Urine Yellow; Glucose Urine UA Trace (Negative); Ketones Urine Negative (Negative); Leukocyte Esterase Urine Negative (Negative); Nitrite Urine Negative (Negative); Protein Urine 3+ (Negative); RBC Urine Automated 0-4 /hpf (0-4); Specific Gravity Urine 1.016 (1.000-1.030); Urobilinogen Urine Negative (Negative); pH Urine 5.5 (4.5-7.5)
[2019-03-04 06:53] LABS: Basophils # (auto) 0.01 K/uL (0-0.2); Basophils % (auto) 0.2 %; Eosinophils % (auto) 4.9 %; Hemoglobin 7.6 g/dL (14.0-18.0); Lymphocytes # (auto) 1.28 K/uL (1.2-3.4); Lymphocytes % (auto) 31.1 %; Mean Corpuscular Hemoglobin 27.4 pg (25-34); Mean Platelet Volume 9.2 fL (7.4-10.4); Monocytes # (auto) 0.45 K/uL (0.11-0.59); Monocytes % (auto) 10.9 %; Neutrophils # (auto) 2.18 K/uL (1.4-6.5); Neutrophils % (auto) 52.9 %; Platelet Count 140 K/uL (130-400); RDW Coefficient of Variation 15.4 % (11.5-14.5); Red Blood Count 2.77 M/uL (4.7-6.1); White Blood Count 4.12 K/uL (4.8-10.8)
[2019-03-04 07:27] LABS: Albumin Level 2.9 gm/dl (3.4-5.0); BUN Creatinine Ratio 20.8 (10-20); Calcium 9.3 mg/dl (8.5-10.1); Creatinine Clr Calc Pharmacy 32.4 ml/min; Est GFR (African American) 19.9; Est GFR (Non-African American) 17.2; Magnesium 2.1 mg/dl (1.8-2.4); Potassium 4.6 mmol/L (3.5-5.1)
[2019-03-04 07:30] LABS: Albumin Globulin Ratio 0.6 (0.9-2); Bilirubin,Total 0.5 mg/dl (0.2-1); Ferritin 427.3 ng/ml (8-388); Globulin 4.5 gm/dl (2.5-4.0); Total Protein 7.4 gm/dl (6.4-8.2)
[2019-03-04] MEDS: carvediloL 25 MG TAB PO SCH ×2 (07:59→21:01)
[2019-03-04] MEDS: GABAPENTIN 300 MG CAP PO SCH ×2 (07:59→21:01)
[2019-03-04] MEDS: DULOXETINE HCL 60 MG CAP PO SCH (07:59)
[2019-03-04] MEDS: INSULIN GLARGINE SOLOSTAR 100 UNITS/ML 3 ML PEN SQ SCH ×2 (08:00→21:01)
[2019-03-04] MEDS: AMLODIPINE BESYLATE 5 MG TAB PO SCH (08:00)
[2019-03-04] MEDS: INSULIN ASPART 100 UNITS/ML 3 ML PEN SC SCH ×4 (08:02→21:02)
[2019-03-04] MEDS: BUMETANIDE 1.5 MG in SYRINGE 0 ML IV SCH ×2 (08:06→21:01)
--- NOTE | 2019-03-04 08:59 | XRay Report ---
XR chest 2V PA/lateral HISTORY: f/u interstitial edema COMPARISON: Chest 03/02/2019. FINDINGS: No pneumothorax. The heart remains mildly enlarged. Significant improvement in the intersti tial pulmonary edema. No new focal lung consolidations to suggest pneumonia. No pleural effusions. No pneumothorax. IMPRESSION: Significant improvement in the interstitial pulmonary edema. Electronically signed by: Gordo Kaye M.D. 03/04/2019 8:58 AM
[2019-03-04] MEDS: IRON SUCROSE 200 MG in 0.9 % SODIUM CHLORIDE 100 ML IV SCH (09:17)
--- NOTE | 2019-03-04 12:27 | Hospitalist Progress Note ---
Date of Service March 04, 2019 Assessment & Plan (1) Pulmonary edema: 38-year-old with history of insulin-dependent diabetes mellitus type 1 (complications: Nephropathy, retinopathy, neuropathy), CKD 4 (left upper extremity AV fistula placed 06/2018-not used yet), hypertension, hyperlipidemia, anemia, hypothyroidism, vitamin D deficiency, venous stasis ulcers, depression, and anxiety presents with cough since October 2018. Found to have pulmonary edema with worsening renal function. Pulmonary edema/CKD IV -Chest x-ray: Pulmonary edema -DDx: Bad diet (high salt) leading to hypervolemic state and poor forward flow (likely), osmotic diuresis from hyperglycemia along with [employer] diarrhea leading to volume depletion leading to fluid retention from worsening CKD, CHF (unlikely), medication side effect in the setting of CKD as patient is on high dose of losartan -BUN/creatinine 95/4.47 - GFR 15 . Baseline Cr 3.5 and GFR 20 -Albumin 3.1 -Echo May 2017: EF 55 to 60% borderline LVH, LA mildly dilated. Repeat ECHO 03/03: Mild concentric LVH. LV systolic function is normal. -Hold home p.o. Bumex 2 mg twice daily, hold home losartan. Cont on Bumex IV 1.5 mg BID -Daily BMP -Left upper extremity aVF June 2018 placed -No emergent indication for dialysis -Strict I's/O's. Has good UOP -Appreciate Nephrology consult. Pt follows with Dr. Miranda as an outpatient Hyperglycemia/IDDM1 BSG 415 on arrival, beta hydroxybutyrate normal, 2.5 Increased home Lantus to 15 BID Started on SSI, NovoLog Restricting PO fluid intake as above A1c- 7.7 Anemia Hgb 8.1 Baseline hgb ~8 likely anemia of chronic disease with CKD4 No concern for bleeding at this time Epogen 59229 units 03/03 Iron Studies: Iron 44, Transferrin 200, Ferritin 427 . IV Iron today Daily CBC HLD Continue home Lipitor Hypertension -Carvedilol increased to 25 mg BID 12.5 mg BID -Hold home losartan in the setting of worsening renal function -Started on Bumex 1.5 mg IV twice daily for pulmonary edema Hypothyroidism Continue Synthroid Diabetic peripheral neuropathy Continue Gabapentin Venous stasis ulcers of both lower extremities Follows with the wound clinic and ID Wound care consulted Depression Continue home Cymbalta FEN/GI: DM1 diet DVT prophylaxis: SCDs, encourage ambulation Code: Full Disposition: MedSurg with telemetry. Anticipate d/c tomorrow Supervising Physician Co-Signing Physician Notes I personally examined the patient and verified all orourke points of history and exam, discussed case, and agree with decision making with Dr Grider. generally feeling better still. no new complaitns otherwise. recognizes he was eating more hidden sodium than he realized. Vitals noted, in general he is awake alert pleasant no distress. HEENT normal cephalic atraumatic mucous members moist. Breathing unlabored no accessory muscle use good effort. Skin shows no rashes no pallor or icterus. Fluid overload/pulmonary edema/worsening of his baseline stage IV CKDhopefully right now at all relates to fluid overload and poor forward flow. His LV appears okay on echocardiogram, but if he is significantly volume overloaded it could theoretically even overload a healthy LV. he is continuing to improve b oth clinically and lab-[place] with diuresis - continue and continue to follow Hypertensionuncontrolled but numbers more reasonable todaycontinue to titrate control to slow the progression of his nephropathy. Uncontrolled type 1 diabetescontinue to titrate insulins; educated and encouraged him to contineu to make positive changes as outpt Otherwise as above Subjective 38 yo M found in bed this AM in NAD. No reported overnight events. States that no longer having cough or orthopnea. Good UOP. Tolerating PO intake. No other acute concerns or complaints. Review of Systems Review of Systems: All systems reviewed & are unremarkable except as noted in HPI & below Physical Exam Constitutional: WD/WN, vitals as above + obese Eyes: PERRL, conjunctivae normal, anicteric sclerae ENMT: external ear and nose normal, oropharynx normal Respiratory: mild decreased breath sounds b/l Cardiovascular: RRR, no murmur, no edema Gastrointestinal (Abdomen): normal bowel sounds, soft, nontender, no hepatosplenomegaly Skin: AVF LUE Psychiatric: A+Ox3, euthymic affect Lymphatic: 1+ LE edema Results & Data Vital Signs (Past 12 Hours) Vital Signs Temp Pulse Pulse Resp BP Pulse Ox 03/04/19 11:21 36.5 C 74 18 136/75 99 03/04/19 09:46 83 03/04/19 04:41 36.4 C L 74 18 135/78 97 03/04/19 01:00 79 03/04/19 00:34 36.4 C L 75 18 119/70 95 Laboratory Results Laboratory Results - last 24 hr 03/03/19 03/03/19 03/03/19 16:24 20:13 22:07 WBC RBC Hgb Hct MCV MCH MCHC RDW Std Deviation RDW Coeff of Yuki Plt Count MPV Immature Gran % (Auto) Neut % (Auto) Lymph % (Auto) [place] % (Auto) Eos % (Auto) Baso % (Auto) Immature Gran # (Auto) Neut # (Auto) Lymph # (Auto) [place] # (Auto) Eos # (Auto) Baso # (Auto) Sodium Potassium Chloride Carbon Dioxide Anion Gap BUN Creatinine Est Cr Clr Drug Dosing Est GFR ( Amer) Est GFR (Non-Af Amer) BUN/Creatinine Ratio Glucose POC Glucose 230 H 175 H Calcium Magnesium Iron Transferrin Transferrin % Sat Ferritin Total Bilirubin AST ALT Alkaline Phosphatase Total Protein Albumin Globulin Albumin/Globulin Ratio Urine Color Yellow Urine Appearance Clear Urine pH 5.5 Ur Specific [place] 1.016 Urine Protein 3+ H Urine Glucose (UA) Trace H Urine Ketones Negative Urine Blood 1+ H Urine Nitrite Negative Urine Bilirubin Negative Urine Urobilinogen Negative Ur Leukocyte Esterase Negative Urine WBC (Auto) 1-5 Urine RBC (Auto) 0-4 U Hyaline Cast (Auto) 0 U Epithel Cells (Auto) 5-10 H Urine Bacteria (Auto) Negative 03/04/19 03/04/19 03/04/19 06:38 06:38 07:56 WBC 4.12 L RBC 2.77 L Hgb 7.6 L Hct 23.0 L MCV 83.0 MCH 27.4 MCHC 33.0 RDW Std Deviation 47.0 H RDW Coeff of Yuki 15.4 H Plt Count 140 MPV 9.2 Immature Gran % (Auto) 0.0 Neut % (Auto) 52.9 Lymph % (Auto) 31.1 [place] % (Auto) 10.9 Eos % (Auto) 4.9 Baso % (Auto) 0.2 Immature Gran # (Auto) 0.00 Neut # (Auto) 2.18 Lymph # (Auto) 1.28 [place] # (Auto) 0.45 Eos # (Auto) 0.20 Baso # (Auto) 0.01 Sodium 138 Potassium 4.6 Chloride 107 Carbon Dioxide 20 L Anion Gap 10.0 BUN 86 H Creatinine 4.14 H Est Cr Clr Drug Dosing 32.4 Est GFR ( Amer) 19.9 Est GFR (Non-Af Amer) 17.2 BUN/Creatinine Ratio 20.8 H Glucose 144 H POC Glucose 161 H Calcium 9.3 Magnesium 2.1 Iron 44 Transferrin 200 Transferrin % Sat 16 L Ferritin 427.3 H Total Bilirubin 0.5 AST 18 ALT 30 Alkaline Phosphatase 206 H Total Protein 7.4 Albumin 2.9 L Globulin 4.5 H Albumin/Globulin Ratio 0.6 L Urine Color Urine Appearance Urine pH Ur Specific [place] Urine Protein Urine Glucose (UA) Urine Ketones Urine Blood Urine Nitrite Urine Bilirubin Urine Urobilinogen Ur Leukocyte Esterase Urine WBC (Auto) Urine RBC (Auto) U Hyaline Cast (Auto) U Epithel Cells (Auto) Urine Bacteria (Auto) Medications Administered Current Inpatient Medications Acetaminophen (Tylenol) 1,000 mg PO QAM PRN PRN Reason: Pain Stop: 04/01/19 20:22 Acetaminophen (Tylenol) 1,500 mg PO HS PRN PRN Reason: Pain Stop: 04/01/19 20:22 Amlodipine Besylate (Norvasc) 5 mg PO QAM [facility] Stop: 04/03/19 08:59 Last Admin: 03/04/19 08:00 Dose: 5 mg Documented by: Atorvastatin Calcium (Lipitor) 80 mg PO HS [facility] Stop: 04/01/19 20:59 Last Admin: 03/03/19 21:02 Dose: 80 mg Documented by: Carvedilol (Coreg) 25 mg PO BID [facility] Stop: 04/02/19 20:59 Last Admin: 03/04/19 07:59 Dose: 25 mg Documented by: Duloxetine HCl (Cymbalta) 60 mg PO QAM [facility] Stop: 04/01/19 20:22 Last Admin: 03/04/19 07:59 Dose: 60 mg Documented by: Ergocalciferol (Vitamin D2) 50,000 units PO Th@0900 [facility] Stop: 04/04/19 08:59 Gabapentin (Neurontin) 600 mg PO BID [facility] Stop: 04/01/19 20:59 Last Admin: 03/04/19 07:59 Dose: 600 mg Documented by: Bumetanide 1.5 mg/ Syringe 6 mls @ 4 mls/min IV BID [facility] Stop: 04/02/19 08:59 Last Admin: 03/04/19 08:06 Dose: 4 mls/min Documented by: Iron Sucrose 200 mg/ Sodium (Chloride) 110 mls @ 220 mls/hr IV DAILY [facility] Stop: 03/08/19 08:59 Last Infusion: 03/04/19 09:55 Dose: Infused Documented by: Insulin Aspart (Novolog Flexpen) 0 units SC ACHS [facility] Stop: 04/01/19 20:59 Last Admin: 03/04/19 12:11 Dose: 15 units Documented by: Insulin Glargine (Lantus Solostar Pen) 20 units SQ BID [facility]; Protocol Stop: 04/02/19 20:59 Last Admin: 03/04/19 08:00 Dose: 20 units Documented by: Levothyroxine Sodium (Synthroid) 50 mcg PO HS [facility] Stop: 04/01/19 20:59 Last Admin: 03/03/19 21:06 Dose: 50 mcg Documented by: Pantoprazole Sodium (Protonix) 40 mg PO HS [facility] Stop: 04/01/19 20:59 Last Admin: 03/03/19 21:05 Dose: 40 mg Documented by: Resident Activity Tracking Resident Involvement: Resident Care Provided Care Provided: Adult Hospital Medicine
--- NOTE | 2019-03-04 17:28 | Nephrology Progress Note ---
Date of Service March 04, 2019 Assessment & Plan (1) Hyperglycemia due to type 1 diabetes mellitus: (2) Hypertension: Losartan held. Carvedilol increased from 12.5 milligram b.i.d. to 25 milligram b.i.d.. Amlodipine added yesterday. Remains on adjusted dose of Bumex 1.5 milligrams IV b.i.d.. Goal is to maintain an even to slightly negative fluid balance. (3) Chronic kidney disease, stage 4 (severe): Left brachiocephalic AV fistula mature for use. No emergent indication for dialysis. Patient follows with Dr. Miranda as an outpatient. He has suggests that he would prefer [facility] if needing to start dialysis. No emergent indication for dailysis at this time. (4) Anemia: Chronic. Epogen 21989 units subcu provided yesterday. H/H slightly lower this AM. Tsat 16 with ferritin >400. Will provide Venofer while inpatient due to degree of anemia. Check stool hemoccult.. (5) Leg ulcer: (6) Type 1 diabetes: (7) Acute renal insufficiency: No emergent indication for dialysis. Hyperkalemia improved with management of hyperglycemia. Creatinine is stable. Electrolytes are otherwise acceptable. Renal ultrasound will be updated. Urinalysis with microscopy without casts. Losartan is being held. I/O's and serial metabolic profile will be monitored. Subjective No acute events overnight. [place] was seen and evaluated in his hospital room this morning. He hopes to be discharged home tomorrow. Overall, he feels well. He denies dyspnea. Appetite is good. He denies any signs of bleeding. Review of Systems Review of Systems: All systems reviewed & are unremarkable except as noted in HPI & below Physical Exam Constitutional: well developed and + well hydrated; no acute distress Eyes: no conjunctival abnormality and no scleral abnormality ENMT: Mouth: no oral mucosal abnormality and oral mucous membranes not dry Neck: normal visual inspection and trachea midline Respiratory: normal respiratory effort Auscultation: lungs clear to auscultation bilaterally Cardiovascular: Rate/Rhythm: regular rate Heart Sounds: normal S1 and normal S2 Extremities: + AV fistula; no edema Musculoskeletal: Extremities: no cyanosis and no clubbing Skin: normal turgor; no lesions Neurologic: Motor/Sensory: no tremor and no asterixis Psychiatric: Orientation: alert and oriented x 3 Results & Data Vital Signs (Past 12 Hours) Vital Signs Temp Pulse Pulse Resp BP Pulse Ox 03/04/19 15:03 36.5 C 80 16 157/78 H 98 03/04/19 11:21 36.5 C 74 18 136/75 99 03/04/19 09:46 83 PG Care Time/CCT Total # of Minutes Spent Total Time Spent with Patient: Total time spent is greater than 50% in coordination of care (as documented) at patient's floor/unit and/or counseling patient: (1) Hypertension Hypertension type: unspecified Qualified Code(s): I10 - Essential (primary) hypertension
--- NOTE | 2019-03-04 19:16 | Billing Data ---
Coding Level of Care Code 75234 Subseq Hosp Care Lvl 3
[2019-03-04] MEDS: PANTOprazole 40 MG TAB PO SCH (21:01)
[2019-03-04] MEDS: LEVOTHYROXINE SODIUM 50 MCG TABLET PO SCH (21:01)
[2019-03-04] MEDS: ATORVASTATIN 40 MG TAB PO SCH (21:01)
[2019-03-05 06:16] LABS: Basophils # (auto) 0.02 K/uL (0-0.2); Basophils % (auto) 0.5 %; Eosinophils % (auto) 4.7 %; Hematocrit (blood only) 22.9 % (42-52); Hemoglobin 7.7 g/dL (14.0-18.0); Lymphocytes # (auto) 1.27 K/uL (1.2-3.4); Mean Corpuscular Hemoglobin 27.5 pg (25-34); Mean Corpuscular Hgb Conc 33.6 g/dL (32-36); Mean Corpuscular Volume 81.8 fL (80-100); Mean Platelet Volume 9.2 fL (7.4-10.4); Monocytes # (auto) 0.52 K/uL (0.11-0.59); Monocytes % (auto) 12.3 %; Neutrophils # (auto) 2.23 K/uL (1.4-6.5); Neutrophils % (auto) 52.5 %; Platelet Count 137 K/uL (130-400); RDW Coefficient of Variation 15.3 % (11.5-14.5); RDW Standard Deviation 45.8 fL (36.4-46.3); White Blood Count 4.24 K/uL (4.8-10.8)
[2019-03-05 06:36] LABS: Ovalocytes 1+; Tear Drop Cells 1+
[2019-03-05 06:52] LABS: Albumin Level 2.9 gm/dl (3.4-5.0); BUN Creatinine Ratio 20.2 (10-20); Est GFR (African American) 18.2; Est GFR (Non-African American) 15.7; Phosphorus 5.8 mg/dl (2.5-4.9); Potassium 4.7 mmol/L (3.5-5.1)
[2019-03-05 07:43] LABS: Microcytosis Present
[2019-03-05] MEDS: carvediloL 25 MG TAB PO SCH ×2 (08:14→21:03)
[2019-03-05] MEDS: INSULIN ASPART 100 UNITS/ML 3 ML PEN SC SCH ×4 (08:14→21:06)
[2019-03-05] MEDS: DULOXETINE HCL 60 MG CAP PO SCH (08:14)
[2019-03-05] MEDS: INSULIN GLARGINE SOLOSTAR 100 UNITS/ML 3 ML PEN SQ SCH ×2 (08:15→21:06)
[2019-03-05] MEDS: GABAPENTIN 300 MG CAP PO SCH ×2 (08:16→21:04)
[2019-03-05] MEDS: AMLODIPINE BESYLATE 5 MG TAB PO SCH (08:16)
[2019-03-05 08:20] LABS: Microcytosis Present
[2019-03-05] MEDS ORDERED: ERGOCALCIFEROL 50,000 UNITS CAP PO SCH (09:00)
[2019-03-05] MEDS: IRON SUCROSE 200 MG in 0.9 % SODIUM CHLORIDE 100 ML IV SCH (09:09)
--- NOTE | 2019-03-05 09:49 | Nephrology Progress Note ---
Date of Service March 05, 2019 Assessment & Plan (1) Hyperglycemia due to type 1 diabetes mellitus: (2) Hypertension: Losartan held. Carvedilol increased from 12.5 milligram b.i.d. to 25 milligram b.i.d.. Amlodipine 5 mg started. BP reasonable at this time. Volume status remains hypervolemic with notable chronic LE lymphedema. (3) Chronic kidney disease, stage 4 (severe): Left brachiocephalic AV fistula mature for use. No emergent indication for dialysis. Patient follows with Dr. Miranda as an outpatient. He would prefer [facility] if needing to start dialysis. Potential indications for HD including hypervolemia, acidosis, refractory anemia have been discussed in detail. HD deferred pending additional monitoring on PO Bumex and following additional IV iron. (4) Anemia: Chronic. Epogen 91680 units subcu provided 03/03. Hgb remains notably low. Tsat 16 with ferritin >400. Venofer 200 mg daily started yesterday. EGD on 01/15, showed gastric polyp - biopsy was negative. Colonoscopy deferred at that time. I suspect anemia is related to renal dysfunction. Repeat stool occult pending. Ventura had previously refused colonoscopy. (5) Leg ulcer: Wound care consult. (6) Type 1 diabetes: (7) Acute renal insufficiency: No emergent indication for dialysis. Hyperkalemia improved with hardy gement of hyperglycemia. Creatinine is stable. Electrolytes are otherwise acceptable. Renal ultrasound updated. Urinalysis with microscopy without casts. Losartan is being held. I/O's and serial metabolic profile will be monitored. Subjective No acute events overnight. Ventura feels well this morning. He denies melena or hematochezia. Overall, he feels well. He hopes to be discharged home. Appetite is good. Activity tolerance fair. Edema at baseline. Review of Systems Review of Systems: All systems reviewed & are unremarkable except as noted in HPI & below Physical Exam Constitutional: + obese; no acute distress Eyes: no scleral abnormality pallor ENMT: Mouth: no oral mucosal abnormality and oral mucous membranes not dry Neck: normal visual inspection and trachea midline Respiratory: normal respiratory effort Auscultation: lungs clear to auscultation bilaterally Cardiovascular: Rate/Rhythm: regular rate Heart Sounds: normal S1 and normal S2 Extremities: + edema and + AV fistula Musculoskeletal: Extremities: no cyanosis and no clubbing Skin: normal turgor; no lesions Neurologic: Motor/Sensory: no tremor and no asterixis Psychiatric: Orientation: alert and oriented x 3 Results & Data Vital Signs (Past 12 Hours) Vital Signs Temp Pulse Pulse Resp BP Pulse Ox 03/05/19 07:30 36.8 C 78 18 156/85 H 99 03/05/19 04:00 36.6 C 75 20 129/75 96 03/05/19 01:42 84 03/04/19 23:07 36.7 C 80 18 160/81 H 98 Laboratory Results Laboratory Results - last 24 hr 03/04/19 03/04/19 03/04/19 06:38 11:45 16:37 WBC RBC Hgb Hct MCV MCH MCHC RDW Std Deviation RDW Coeff of Yuki Plt Count MPV Immature Gran % (Auto) Neut % (Auto) Lymph % (Auto) [place] % (Auto) Eos % (Auto) Baso % (Auto) Immature Gran # (Auto) Neut # (Auto) Lymph # (Auto) [place] # (Auto) Eos # (Auto) Baso # (Auto) Microcytosis Present Tear Drop Cells Ovalocytes Sodium Potassium Chloride Carbon Dioxide Anion Gap BUN Creatinine Est Cr Clr Drug Dosing Est GFR ( Amer) Est GFR (Non-Af Amer) BUN/Creatinine Ratio Glucose POC Glucose 233 H 225 H Calcium Phosphorus Albumin 03/04/19 03/05/19 03/05/19 20:21 06:02 06:02 WBC 4.24 L RBC 2.80 L Hgb 7.7 L Hct 22.9 L MCV 81.8 MCH 27.5 MCHC 33.6 RDW Std Deviation 45.8 RDW Coeff of Yuki 15.3 H Plt Count 137 MPV 9.2 Immature Gran % (Auto) 0.0 Neut % (Auto) 52.5 Lymph % (Auto) 30.0 [place] % (Auto) 12.3 Eos % (Auto) 4.7 Baso % (Auto) 0.5 Immature Gran # (Auto) 0.00 Neut # (Auto) 2.23 Lymph # (Auto) 1.27 [place] # (Auto) 0.52 Eos # (Auto) 0.20 Baso # (Auto) 0.02 Microcytosis Present Tear Drop Cells 1+ Ovalocytes 1+ Sodium 137 Potassium 4.7 Chloride 108 H Carbon Dioxide 20 L Anion Gap 9.0 BUN 90 H Creatinine 4.47 H D Est Cr Clr Drug Dosing 30.0 Est GFR ( Amer) 18.2 Est GFR (Non-Af Amer) 15.7 BUN/Creatinine Ratio 20.2 H Glucose 165 H POC Glucose 196 H Calcium 9.0 Phosphorus 5.8 H Albumin 2.9 L 03/05/19 07:48 WBC RBC Hgb Hct MCV MCH MCHC RDW Std Deviation RDW Coeff of Yuki Plt Count MPV Immature Gran % (Auto) Neut % (Auto) Lymph % (Auto) [place] % (Auto) Eos % (Auto) Baso % (Auto) Immature Gran # (Auto) Neut # (Auto) Lymph # (Auto) [place] # (Auto) Eos # (Auto) Baso # (Auto) Microcytosis Tear Drop Cells Ovalocytes Sodium Potassium Chloride Carbon Dioxide Anion Gap BUN Creatinine Est Cr Clr Drug Dosing Est GFR ( Amer) Est GFR (Non-Af Amer) BUN/Creatinine Ratio Glucose POC Glucose 185 H Calcium Phosphorus Albumin PG Care Time/CCT Total # of Minutes Spent Total Time Spent with Patient: Total time spent is greater than 50% in coordination of care (as documented) at patient's floor/unit and/or counseling patient: (1) Hypertension Hypertension type: unspecified Qualified Code(s): I10 - Essential (primary) hypertension
[2019-03-05] MEDS: BUMETANIDE 1 MG TAB PO SCH ×2 (11:06→17:14)
--- NOTE | 2019-03-05 11:09 | Discharge Summary ---
Date of Service March 05, 2019 Admission HPI Per Admitting Provider 38-year-old with history of insulin-dependent diabetes mellitus type 1 (complications: Nephropathy, retinopathy, neuropathy), CKD 4 (left upper extremity AV fistula placed 06/2018-not used yet), hypertension, hyperlipidemia, anemia, hypothyroidism, vitamin D deficiency, venous stasis ulcers, depression, and anxiety presents with cough since October 2018. Cough is intermittent sometimes worse than other times. Appears to fluctuate with his renal function. Denies any exertional shortness of breath or shortness of breath rest, chest pain, fever, chills, lightheadedness, increased lower extremity or abdominal edema. However cousin, who has accompanied him, reports lower extremities more swollen than previously. Also reports diarrhea-loose stools 1 times daily. History of recent antibiotics for his lower extremity ulcers. Per patient glucose usually between 200-400 at baseline. Reports last taking medications yesterday. 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 Miranda. Denies any abdominal pain, nausea, vomiting, constipation, dysuria. ED course: Found to have worsening renal function BUN/creatinine 95/4.47, hyperkalemia 5.7, and extensive pulmonary edema on chest x-ray. Glucose elevated to 415 however beta hydroxybutyrate normal. Patient was on room air. Received regular insulin 10 units, losartan 100 mg p.o., hydralazine 10 mg, Coreg 12.5 mg p.o. x1. Discharge Exam Constitutional WD/WN, vitals as above + obese Eyes PERRL, conjunctivae normal, anicteric sclerae ENMT external ear and nose normal, oropharynx normal Respiratory mild decreased breath sounds Cardiovascular RRR, no murmur, no edema Gastrointestinal (Abdomen) normal bowel sounds, soft, nontender, no hepatosplenomegaly Skin AVF LUE Psychiatric A+Ox3, euthymic affect Lymphatic 1+ LE Edema Discharge Data Allergies Allergy/AdvReac Type Severity Reaction Status Date / Time Influenza Virus Vaccines Allergy Intermediate UNKNOWN Verified 03/02/19 09:53 lisinopril Allergy Intermediate COUGH Verified 03/02/19 09:53 Consultations 03/02/19 14:07 ED Decision to Admit Stat 03/02/19 20:23 Consult Nephrology Routine Ordered Studies 03/03/19 08:46 US renal/blad retro comp Routine Hospital Course (1) Pulmonary edema: 38-year-old with history of insulin-dependent diabetes mellitus type 1 (complications: Nephropathy, retinopathy, neuropathy), CKD 4 (left upper extremity AV fistula placed 06/2018-not used yet), hypertension, hyperlipidemia, anemia, hypothyroidism, vitamin D deficiency, venous stasis ulcers, depression, and anxiety presents with cough since October 2018. Found to have pulmonary edema with worsening renal function. The following is the medical management during stay here: Pulmonary edema/CKD IV -Chest x-ray: Pulmonary edema -This was likely caused by bad diet (high salt) leading to hypervolemic state and poor forward flow . Likely that pt became significantly volume overloaded and this overload was too much even with a healthy LV (see ECHO results below) -Creatinine 4.47 on discharge. Baseline Cr 3.5 -Echo May 2017: EF 55 to 60% borderline LVH, LA mildly dilated. Repeat ECHO 03/03: Mild concentric LVH. LV systolic function is normal. -Held home p.o. Bumex 2 mg twice daily, hold home losartan. Given Bumex IV 1.5 mg BID here. Pt will restart home medication on d/c -Pt will require BMP at next provider visit, and will likely need weekly BMP's for a period of time thereafter until better control can be achieved -Left upper extremity aVF June 2018 placed -No emergent indication for dialysis during this admission -pt educated on salt intake, taking daily weights -Pt follows with Dr. Miranda as an outpatient Hyperglycemia/IDDM1 BSG 415 on arrival, beta hydroxybutyrate normal, 2.5 Increased home Lantus to 15 BID Started on SSI, NovoLog Restricting PO fluid intake as above A1c- 7.7 Anemia Hgb 8.1 Baseline hgb ~8 likely anemia of chronic disease with CKD4 No concern for bleeding at this time Epogen 63474 units 03/03 Iron Studies: Iron 44, Transferrin 200, Ferritin 427 . IV Iron today Daily CBC HLD Continue home Lipitor Hypertension -Carvedilol increased to 25 mg BID 12.5 mg BID -Hold home losartan in the setting of worsening renal function -Started on Bumex 1.5 mg IV twice daily for pulmonary edema Hypothyroidism Continue Synthroid Diabetic peripheral neuropathy Continue Gabapentin Venous stasis ulcers of both lower extremities Follows with the wound clinic and ID Wound care consulted Depression Continue home Cymbalta FEN/GI: DM1 diet DVT prophylaxis: SCDs, encourage ambulation Code: Full Disposition: MedSurg with telemetry. Anticipate d/c tomorrow Discharge Plan Discharge Items Patient Disposition: Home - Self-Care Reason For Visit: COUGH Discharge Diagnosis: pulmonary edema Condition on Discharge: Good Activity: Per Instructions section Non-emergency contact: Primary Care Provider Call non-emergency contact if: you have any medication questions and your symptoms worsen Follow-up/Referrals: [facility] Endocrinology [Provider Group] (Please, follow up at [facility]. *A nurse will contact you with the appointment information. The office is located in [address] of [facility], next to [place]. If you have any questions, call the office at [phone].) [facility] Wound Care [Provider Group] - 03/11/19 1:00 pm (Please, follow up at [facility] on SaturdayMarch 11 at 1:00 pm. The clinic is located at [address] in [place]. If you have any questions, call the office at [phone].) Zachary Ibanez DO [Physician] - 03/12/19 10:20 am (Please, follow up at [facility] Nephrology Office with Dr. Ibanez on March 12 at 10:20 am. *The office is located in [address] of [facility], next to [facility]. If you need to change this appointment, call the office at [phone].) Maki Peterson MD [Primary Care Provider] - 03/13/19 2:00 pm (Please, follow up with Dr. Peterson on SaturdayMarch 13 at 2:00 pm. *If you need to change this appointment, call the office at [phone].) Amita Lyles PA-C [Physician Dressing Room Attendant] - 03/10/19 10:30 am (Please, follow up at [facility] Cardiology Office / CHF Clinic with Zahra Lyles PA-C on SaturdayMarch 10 at 10:30 am. *The office is located in [address] of [facility], next to [facility]. If you need to change this appointment, call the office at [phone].) Diet: Carb Count or DM1 and Low Sodium (2gm) Addtl Attending Provider Instructions: You were admitted with concerns for cough and were found to have pulmonary edema (fluid in your lungs). We took this out with an IV diuretic. Please follow the below instructions on discharge: -You must be diligent about watching your sodium intake, which you are already doing a great job of. Just be careful to watch out for those hidden sources of sodium that can put you over the edge -When you have too much sodium intake, your body holds on to too much fluid, and this can lead to fluid accumulation in your lungs, like it did on this admission. Even though you have good heart function, it can only work so hard and sometimes it gets overloaded with fluid, which can lead to fluid accumulation -Measure your daily weight at home. See instructions below on what to do if weight too high -follow up with your PCP at the date and time listed above. See other appt dates for cardiology and nephrology and wound clinics -continue your home meds as before, The only change we made was increasing your dose of carvedilol to 25 mg 2x/day from 12.5 mg 2x/day. We also added a new BP medication, Amlodipine 5 mg daily (sent to [facility]) If these don't work with your insurance plan/are too expensive, please discuss with your PCP appt so they can make other arrangements REPORT TO YOUR DOCTOR OR SEEK MEDICAL ASSISTANCE IF YOU HAVE: -Shortness of breath or have more difficulty breathing -Swelling of your feet, ankles, hands or abdomen -Feeling tired with normal activity or experiencing dizziness or fainting -Trouble sleeping or waking up feeling short of breath or coughing -Chest pain or pressure -Weight gain of 3-5 pounds over 2-3 days -Inability to take medications or follow treatment plan Pending Studies at Discharge: No Stand-Alone Forms: My [employer], Smoking Cessation Medications and DC Order Prescriptions: New amlodipine 5 mg tablet 5 mg PO DAILY Qty: 30 RF: 0 carvedilol 25 mg tablet 25 mg PO BID Qty: 30 RF: 0 Continued levothyroxine 50 mcg capsule 50 mcg PO HS RF: 0 atorvastatin [Lipitor] 80 mg tablet 80 mg PO HS Qty: 30 RF: 5 bumetanide 2 mg tablet 2 mg PO BID Qty: 180 RF: 3 losartan 100 mg tablet 100 mg PO QAM Qty: 90 RF: 3 (DME) pen needle, diabetic [BD Ultra-Fine Eladia Pen Needle] 32 gauge x 5/32" needle See Dose Instructions .ROUTE .MEDSUPPLY Qty: 200 RF: 3 gabapentin 300 mg capsule 600 mg PO BID Qty: 120 RF: 5 Toujeo SoloStar U-300 Insulin 300 unit/mL (1.5 mL) insulin pen 20 unit subcut HS Qty: 9 RF: 5 duloxetine 60 mg capsule,delayed release(DR/EC) 60 mg PO QAM RF: 0 (DME) OneTouch Verio strip See Dose Instructions .ROUTE .MEDSUPPLY Qty: 10 RF: 0 (DME) lancets [OneTouch Delica Lancets] 30 gauge misc See Dose Instructions .ROUTE .MEDSUPPLY Qty: 25 RF: 0 Novolog Flexpen U-100 Insulin 100 unit/mL (3 mL) insulin pen 10 units SQ AC Qty: 0 RF: 0 acetaminophen [Tylenol Extra Strength] 500 mg Tablet 1,000 mg PO QAM PRN (Reason: Pain) RF: 0 acetaminophen [Tylenol Extra Strength] 500 mg Tablet 1,500 mg PO HS PRN (Reason: Pain) RF: 0 ergocalciferol (vitamin D2) [Vitamin D2] 50,000 unit capsule 50,000 unit PO TH RF: 0 pantoprazole 40 mg tablet,delayed release (DR/EC) 40 mg PO HS RF: 0 Discontinued carvedilol 12.5 mg tablet 12.5 mg PO BID Qty: 90 RF: 3 Admission Data Admit Date/Time: 03/02/19 18:48 Attending Provider: Talib Glover Admit Provider: Feliz Drew Primary Care Provider: Maki Peterson Other Providers: Feliz Drew ; Zachary Ibanez
--- NOTE | 2019-03-05 14:32 | Hospitalist Progress Note ---
Date of Service March 05, 2019 Assessment & Plan (1) Pulmonary edema: 38-year-old with history of insulin-dependent diabetes mellitus type 1 (complications: Nephropathy, retinopathy, neuropathy), CKD 4 (left upper extremity AV fistula placed 06/2018-not used yet), hypertension, hyperlipidemia, anemia, hypothyroidism, vitamin D deficiency, venous stasis ulcers, depression, and anxiety presents with cough since October 2018. Found to have pulmonary edema with worsening renal function. The following is the medical management during stay here: Pulmonary edema/CKD IV -Chest x-ray: Pulmonary edema -This was likely caused by bad diet (high salt) leading to hypervolemic state and poor forward flow . Likely that pt became significantly volume overloaded and this overload was too much even with a healthy LV (see ECHO results below) -Creatinine 4.47 bumped up from 4.17 indicating we have dried out pt sufficiently. Baseline Cr 3.5 -Echo May 2017: EF 55 to 60% borderline LVH, LA mildly dilated. Repeat ECHO 03/03: Mild concentric LVH. LV systolic function is normal. -Held home p.o. Bumex 2 mg twice daily, hold home losartan. Given Bumex IV 1.5 mg BID here. Pt will restart home medication on d/c -Pt will require BMP at next provider visit, and will likely need weekly BMP's for a period of time thereafter until better control can be achieved -Left upper extremity aVF June 2018 placed -No emergent indication for dialysis during this admission. Pt prefers [facility] if needing to start dialysis -pt educated on salt intake, taking daily weights -Pt follows with Dr. Miranda as an outpatient Hyperglycemia/IDDM1 BSG 415 on arrival, beta hydroxybutyrate normal, 2.5 Increased home Lantus to 15 BID Started on SSI, NovoLog Restricting PO fluid intake as above A1c- 7.7 Anemia Hgb 8.1 Baseline hgb ~8 likely anemia of chronic disease with CKD4 No concern for bleeding at this time. Pt had previously refused colonoscopy. EGD 01/15, showed gastric polyp - biopsy was negative Epogen 75805 units 03/03 Iron Studies: Iron 44, Transferrin 200, Ferritin 427 . IV Iron today Venofer 200 mg daily Daily CBC HLD Continue home Lipitor Hypertension -Carvedilol increased to 25 mg BID 12.5 mg BID -Hold home losartan in the setting of worsening renal function -Amlodipine 5 mg daily -Started on Bumex 1.5 mg IV twice daily for pulmonary edema Hypothyroidism Continue Synthroid Diabetic peripheral neuropathy Continue Gabapentin Venous stasis ulcers of both lower extremities Follows with the wound clinic and ID Wound care consulted Depression Continue home Cymbalta FEN/GI: DM1 diet DVT prophylaxis: SCDs, encourage ambulation Code: Full Disposition: MedSurg with telemetry. Anticipate d/c tomorrow Supervising Physician Co-Signing Physician Notes I personally examined the patient and verified all orourke points of history and exam, discussed case, and agree with decision making with Dr Grider. Feeling better overall. Disappointed that he is not going home. Discussed with nephrology, input appreciated. Vitals noted, in general he is awake alert pleasant no distress. HEENT normal cephalic atraumatic mucous members moist. Breathing unlabored no accessory muscle use good effort. Skin shows no rashes no pallor or icterus. Fluid overload/pulmonary edema/worsening of his baseline stage IV CKDhopefully right now at all relates to fluid overload and poor forward flow. Intravascularly likely about as euvolemic as we can achieve right now given that his creatinine has bumped some. Nephrology notes high concerns on his ability to do okay at home given the severity of his CKD, the fact that he is intravascularly volume dry, but still clearly whole-body volume overloaded. Plan to observe another day or so and then possibly if he is still looking concerning start dialysis sooner rather than later. Hypertensioncontinue to titrate meds and follow. Uncontrolled type 1 diabetescontinue to titrate insulins; ongoing lifestyle change Subjective 38 yo M found in bed this AM in NAD. No reported overnight events. States that no longer having cough or orthopnea. Good UOP. Tolerating PO intake. States wants to go home. No other acute concerns or complaints. Review of Systems Review of Systems: All systems reviewed & are unremarkable except as noted in HPI & below Physical Exam Constitutional: WD/WN, vitals as above Eyes: PERRL, conjunctivae normal, anicteric sclerae ENMT: external ear and nose normal, oropharynx normal Respiratory: mild decreased breath sounds Cardiovascular: RRR, no murmur, no edema Gastrointestinal (Abdomen): normal bowel sounds, soft, nontender, no hepat osplenomegaly Skin: no rashes, warm and dry AVF LUE Psychiatric: A+Ox3, euthymic affect Lymphatic: 1+ LE Edema, baseline Results & Data Vital Signs (Past 12 Hours) Vital Signs Temp Pulse Pulse Resp BP Pulse Ox 03/05/19 11:14 36.8 C 82 20 158/84 H 93 03/05/19 09:57 78 03/05/19 07:30 36.8 C 78 18 156/85 H 99 03/05/19 04:00 36.6 C 75 20 129/75 96 Laboratory Results Laboratory Results - last 24 hr 03/04/19 03/04/19 03/04/19 06:38 16:37 20:21 WBC RBC Hgb Hct MCV MCH MCHC RDW Std Deviation RDW Coeff of Yuki Plt Count MPV Immature Gran % (Auto) Neut % (Auto) Lymph % (Auto) [place] % (Auto) Eos % (Auto) Baso % (Auto) Immature Gran # (Auto) Neut # (Auto) Lymph # (Auto) [place] # (Auto) Eos # (Auto) Baso # (Auto) Microcytosis Present Tear Drop Cells Ovalocytes Sodium Potassium Chloride Carbon Dioxide Anion Gap BUN Creatinine Est Cr Clr Drug Dosing Est GFR ( Amer) Est GFR (Non-Af Amer) BUN/Creatinine Ratio Glucose POC Glucose 225 H 196 H Calcium Phosphorus Albumin 03/05/19 03/05/19 03/05/19 06:02 06:02 07:48 WBC 4.24 L RBC 2.80 L Hgb 7.7 L Hct 22.9 L MCV 81.8 MCH 27.5 MCHC 33.6 RDW Std Deviation 45.8 RDW Coeff of Yuki 15.3 H Plt Count 137 MPV 9.2 Immature Gran % (Auto) 0.0 Neut % (Auto) 52.5 Lymph % (Auto) 30.0 [place] % (Auto) 12.3 Eos % (Auto) 4.7 Baso % (Auto) 0.5 Immature Gran # (Auto) 0.00 Neut # (Auto) 2.23 Lymph # (Auto) 1.27 [place] # (Auto) 0.52 Eos # (Auto) 0.20 Baso # (Auto) 0.02 Microcytosis Present Tear Drop Cells 1+ Ovalocytes 1+ Sodium 137 Potassium 4.7 Chloride 108 H Carbon Dioxide 20 L Anion Gap 9.0 BUN 90 H Creatinine 4.47 H D Est Cr Clr Drug Dosing 30.0 Est GFR ( Amer) 18.2 Est GFR (Non-Af Amer) 15.7 BUN/Creatinine Ratio 20.2 H Glucose 165 H POC Glucose 185 H Calcium 9.0 Phosphorus 5.8 H Albumin 2.9 L 03/05/19 11:32 WBC RBC Hgb Hct MCV MCH MCHC RDW Std Deviation RDW Coeff of Yuki Plt Count MPV Immature Gran % (Auto) Neut % (Auto) Lymph % (Auto) [place] % (Auto) Eos % (Auto) Baso % (Auto) Immature Gran # (Auto) Neut # (Auto) Lymph # (Auto) [place] # (Auto) Eos # (Auto) Baso # (Auto) Microcytosis Tear Drop Cells Ovalocytes Sodium Potassium Chloride Carbon Dioxide Anion Gap BUN Creatinine Est Cr Clr Drug Dosing Est GFR ( Amer) Est GFR (Non-Af Amer) BUN/Creatinine Ratio Glucose POC Glucose 185 H Calcium Phosphorus Albumin Medications Administered Current Inpatient Medications Acetaminophen (Tylenol) 1,000 mg PO QAM PRN PRN Reason: Pain Stop: 04/01/19 20:22 Acetaminophen (Tylenol) 1,500 mg PO HS PRN PRN Reason: Pain Stop: 04/01/19 20:22 Amlodipine Besylate (Norvasc) 5 mg PO QAM [facility] Stop: 04/03/19 08:59 Last Admin: 03/05/19 08:16 Dose: 5 mg Documented by: Atorvastatin Calcium (Lipitor) 80 mg PO HS [facility] Stop: 04/01/19 20:59 Last Admin: 03/04/19 21:01 Dose: 80 mg Documented by: Bumetanide (Bumex) 2 mg PO BID17 [facility] Stop: 04/04/19 09:39 Last Admin: 03/05/19 11:06 Dose: 2 mg Documented by: Carvedilol (Coreg) 25 mg PO BID [facility] Stop: 04/02/19 20:59 Last Admin: 03/05/19 08:14 Dose: 25 mg Documented by: Duloxetine HCl (Cymbalta) 60 mg PO QAM [facility] Stop: 04/01/19 20:22 Last Admin: 03/05/19 08:14 Dose: 60 mg Documented by: Ergocalciferol (Vitamin D2) 50,000 units PO Th@0900 [facility] Stop: 04/04/19 08:59 Last Admin: 03/05/19 08:14 Dose: 50,000 units Documented by: Gabapentin (Neurontin) 600 mg PO BID [facility] Stop: 04/01/19 20:59 Last Admin: 03/05/19 08:16 Dose: 600 mg Documented by: Iron Sucrose 200 mg/ Sodium (Chloride) 110 mls @ 220 mls/hr IV DAILY [facility] Stop: 03/08/19 08:59 Last Infusion: 03/05/19 09:25 Dose: Infused Documented by: Insulin Aspart (Novolog Flexpen) 0 units SC ACHS [facility] Stop: 04/01/19 20:59 Last Admin: 03/05/19 12:56 Dose: 9 units Documented by: Insulin Glargine (Lantus Solostar Pen) 20 units SQ BID [facility]; Protocol Stop: 04/02/19 20:59 Last Admin: 03/05/19 08:15 Dose: 20 units Documented by: Levothyroxine Sodium (Synthroid) 50 mcg PO HS [facility] Stop: 04/01/19 20:59 Last Admin: 03/04/19 21:01 Dose: 50 mcg Documented by: Pantoprazole Sodium (Protonix) 40 mg PO HS [facility] Stop: 04/01/19 20:59 Last Admin: 03/04/19 21:01 Dose: 40 mg Documented by: Resident Activity Tracking Resident Involvement: Resident Care Provided Care Provided: Adult Hospital Medicine
--- NOTE | 2019-03-05 18:52 | Billing Data ---
Coding Level of Care Code 09085 Subseq Hosp Care Lvl 2
[2019-03-05] MEDS: ATORVASTATIN 40 MG TAB PO SCH (21:04)
[2019-03-05] MEDS: LEVOTHYROXINE SODIUM 50 MCG TABLET PO SCH (21:05)
[2019-03-05] MEDS: PANTOprazole 40 MG TAB PO SCH (21:05)
[2019-03-06 07:38] LABS: Basophils # (auto) 0.01 K/uL (0-0.2); Basophils % (auto) 0.3 %; Eosinophils # (auto) 0.18 K/uL (0-0.5); Eosinophils % (auto) 4.8 %; Hemoglobin 7.6 g/dL (14.0-18.0); Lymphocytes # (auto) 1.05 K/uL (1.2-3.4); Lymphocytes % (auto) 27.9 %; Mean Corpuscular Hemoglobin 27.4 pg (25-34); Mean Platelet Volume 10.3 fL (7.4-10.4); Monocytes # (auto) 0.37 K/uL (0.11-0.59); Monocytes % (auto) 9.8 %; Neutrophils # (auto) 2.15 K/uL (1.4-6.5); Neutrophils % (auto) 57.2 %; Platelet Count 143 K/uL (130-400); RDW Coefficient of Variation 15.5 % (11.5-14.5); RDW Standard Deviation 46.8 fL (36.4-46.3); Red Blood Count 2.77 M/uL (4.7-6.1); White Blood Count 3.76 K/uL (4.8-10.8)
[2019-03-06 07:58] LABS: Ovalocytes 1+
[2019-03-06 08:13] LABS: Calcium 9.5 mg/dl (8.5-10.1); Creatinine Clr Calc Pharmacy 30.3 ml/min; Est GFR (African American) 18.1; Est GFR (Non-African American) 15.6; Potassium 4.5 mmol/L (3.5-5.1)
[2019-03-06] MEDS: INSULIN GLARGINE SOLOSTAR 100 UNITS/ML 3 ML PEN SQ SCH (08:17)
[2019-03-06] MEDS: INSULIN ASPART 100 UNITS/ML 3 ML PEN SC SCH ×2 (08:17→12:46)
[2019-03-06] MEDS: AMLODIPINE BESYLATE 5 MG TAB PO SCH (08:18)
[2019-03-06] MEDS: BUMETANIDE 1 MG TAB PO SCH (08:18)
[2019-03-06] MEDS: carvediloL 25 MG TAB PO SCH (08:18)
[2019-03-06] MEDS: GABAPENTIN 300 MG CAP PO SCH (08:18)
[2019-03-06] MEDS: DULOXETINE HCL 60 MG CAP PO SCH (08:18)
[2019-03-06 08:36] LABS: Hepatitis B Surface Ab Quant < 3.10 mIU/mL (>or=10mIU/mL Immune); Hepatitis B Surface Antibody Non-Immune
[2019-03-06 08:47] LABS: Hepatitis B Surface Antigen Neg (Neg)
--- NOTE | 2019-03-06 09:37 | Nephrology Progress Note ---
Date of Service March 06, 2019 Assessment & Plan (1) Hyperglycemia due to type 1 diabetes mellitus: (2) Hypertension: Losartan stopped due to advanced kidney dysfunction. Carvedilol increased from 12.5 milligram b.i.d. to 25 milligram b.i.d.. Amlodipine 5 mg started during the admission. BP reasonable at this time. Volume status remains hypervolemic with notable chronic LE lymphedema. Tolerating current dose of diuretics (Bumex 2 mg BID). No changes at this time. (3) Chronic kidney disease, stage 4 (severe): Left brachiocephalic AV fistula mature for use. No emergent indication for dialysis. Patient follows with Dr. Miranda as an outpatient. He would prefer [facility] if needing to start dialysis. [place]ura would like to coordinate transportation with his brother who is second shift on MWF. Hepatitis profile was sent this morning in anticipation of need to start in the near future. Potential indications for HD including hypervolemia, acidosis, refractory anemia have been discussed in detail. HD deferred pending additional monitoring on PO Bumex and following iron. (4) Anemia: Chronic. Epogen 64839 units subcu provided 03/03. Will coordinate additional EPO as an outpatient. Hgb remains notably low but Ventura denies symptoms. Tsat 16 with ferritin >400. Venofer 200 mg daily x 3 to be completed today. EGD on 01/15, showed gastric polyp - biopsy was negative. Colonoscopy has been refused by Ventura. Ventura has been constipated and unable to provide a stool sample for analysis. Will closely monitor with follow up labs + EPO early next week as an outpatient. (5) Leg ulcer: Edema persists. Ventura acknowledges that UF with HD may improve changes of healing and prevent complications but he is not ready to consent to HD at this time. (6) Type 1 diabetes: (7) Acute renal insufficiency: No emergent indication for dialysis. Hyperkalemia improved with management of hyperglycemia. Creatinine is stable. Electrolytes are otherwise acceptable. Renal ultrasound updated. Urinalysis with microscopy without casts. Losartan is being held. Close outpatient follow up is acceptable. Subjective No acute events overnight. Ventura feels well this morning. He would like to go home. He denies any uremic symptoms. His activity tolerance is good. He denies chest pain or palpitations. He denies dyspnea. He is not ready to start dialysis but is agreeable to close outpatient follow up in the clinic. Review of Systems Review of Systems: All systems reviewed & are unremarkable except as noted in HPI & below Physical Exam Constitutional: + obese; no acute distress Eyes: no scleral abnormality ENMT: Mouth: no oral mucosal abnormality and oral mucous membranes not dry Neck: normal visual inspection and trachea midline Respiratory: normal respiratory effort Auscultation: lungs clear to auscultation bilaterally Cardiovascular: Rate/Rhythm: regular rate Heart Sounds: normal S1 and normal S2 Extremities: + edema and + AV fistula Musculoskeletal: Extremities: no cyanosis and no clubbing Skin: normal turgor; no lesions Neurologic: Motor/Sensory: no tremor and no asterixis Psychiatric: Orientation: alert and oriented x 3 Results & Data Vital Signs (Past 12 Hours) Vital Signs Temp Pulse Pulse Resp BP Pulse Ox 03/06/19 07:23 36.5 C 73 18 149/84 H 98 03/06/19 04:43 36.3 C L 72 18 129/77 96 03/06/19 00:32 78 Laboratory Results Laboratory Results - last 24 hr 03/05/19 03/05/19 03/05/19 11:32 16:51 20:39 WBC RBC Hgb Hct MCV MCH MCHC RDW Std Deviation RDW Coeff of Yuki Plt Count MPV Immature Gran % (Auto) Neut % (Auto) Lymph % (Auto) [place] % (Auto) Eos % (Auto) Baso % (Auto) Immature Gran # (Auto) Neut # (Auto) Lymph # (Auto) [place] # (Auto) Eos # (Auto) Baso # (Auto) Ovalocytes Sodium Potassium Chloride Carbon Dioxide Anion Gap BUN Creatinine Est Cr Clr Drug Dosing Est GFR ( Amer) Est GFR (Non-Af Amer) BUN/Creatinine Ratio Glucose POC Glucose 185 H 222 H 201 H Calcium Hep Bs Antigen Hep Bs Antibody Hep Bs Antibody, Quant Hep B Core IgM Ab 03/06/19 03/06/19 03/06/19 07:00 07:00 07:00 WBC 3.76 L RBC 2.77 L Hgb 7.6 L Hct 23.0 L MCV 83.0 MCH 27.4 MCHC 33.0 RDW Std Deviation 46.8 H RDW Coeff of Yuki 15.5 H Plt Count 143 MPV 10.3 Immature Gran % (Auto) 0.0 Neut % (Auto) 57.2 Lymph % (Auto) 27.9 [place] % (Auto) 9.8 Eos % (Auto) 4.8 Baso % (Auto) 0.3 Immature Gran # (Auto) 0.00 Neut # (Auto) 2.15 Lymph # (Auto) 1.05 L [place] # (Auto) 0.37 Eos # (Auto) 0.18 Baso # (Auto) 0.01 Ovalocytes 1+ Sodium 135 L Potassium 4.5 Chloride 105 Carbon Dioxide 20 L Anion Gap 10.0 BUN 94 H Creatinine 4.48 H Est Cr Clr Drug Dosing 30.3 Est GFR ( Amer) 18.1 Est GFR (Non-Af Amer) 15.6 BUN/Creatinine Ratio 21.0 H Glucose 83 POC Glucose Calcium 9.5 Hep Bs Antigen Neg Hep Bs Antibody Non-Immune Hep Bs Antibody, Quant < 3.10 L Hep B Core IgM Ab 03/06/19 03/06/19 07:00 07:23 WBC RBC Hgb Hct MCV MCH MCHC RDW Std Deviation RDW Coeff of Yuki Plt Count MPV Immature Gran % (Auto) Neut % (Auto) Lymph % (Auto) [place] % (Auto) Eos % (Auto) Baso % (Auto) Immature Gran # (Auto) Neut # (Auto) Lymph # (Auto) [place] # (Auto) Eos # (Auto) Baso # (Auto) Ovalocytes Sodium Potassium Chloride Carbon Dioxide Anion Gap BUN Creatinine Est Cr Clr Drug Dosing Est GFR ( Amer) Est GFR (Non-Af Amer) BUN/Creatinine Ratio Glucose POC Glucose 103 H Calcium Hep Bs Antigen Hep Bs Antibody Hep Bs Antibody, Quant Hep B Core IgM Ab Pending PG Care Time/CCT Total # of Minutes Spent Total Time Spent with Patient: Total time spent is greater than 50% in coordination of care (as documented) at patient's floor/unit and/or counseling patient: (1) Hypertension Hypertension type: unspecified Qualified Code(s): I10 - Essential (primary) hypertension
[2019-03-06] MEDS: IRON SUCROSE 200 MG in 0.9 % SODIUM CHLORIDE 100 ML IV SCH (09:40)
--- NOTE | 2019-03-06 12:43 | Discharge Summary ---
Date of Service March 06, 2019 Admission HPI Per Admitting Provider 38-year-old with history of insulin-dependent diabetes mellitus type 1 (complications: Nephropathy, retinopathy, neuropathy), CKD 4 (left upper extremity AV fistula placed 06/2018-not used yet), hypertension, hyperlipidemia, anemia, hypothyroidism, vitamin D deficiency, venous stasis ulcers, depression, and anxiety presents with cough since October 2018. Cough is intermittent sometimes worse than other times. Appears to fluctuate with his renal function. Denies any exertional shortness of breath or shortness of breath rest, chest pain, fever, chills, lightheadedness, increased lower extremity or abdominal edema. However cousin, who has accompanied him, reports lower extremities more swollen than previously. Also reports diarrhea-loose stools 1 times daily. History of recent antibiotics for his lower extremity ulcers. Per patient glucose usually between 200-400 at baseline. Reports last taking medications yesterday. Follows with [facility] man, Dr. Miranda. Denies any abdominal pain, nausea, vomiting, constipation, dysuria. ED course: Found to have worsening renal function BUN/creatinine 95/4.47, hyperkalemia 5.7, and extensive pulmonary edema on chest x-ray. Glucose elevated to 415 however beta hydroxybutyrate normal. Patient was on room air. Received regular insulin 10 units, losartan 100 mg p.o., hydralazine 10 mg, Coreg 12.5 mg p.o. x1. Principal Diagnosis pulm edema Discharge Exam Constitutional WD/WN, vitals as above Eyes PERRL, conjunctivae normal, anicteric sclerae ENMT external ear and nose normal, oropharynx normal Respiratory normal respiratory effort, lungs clear to auscultation Cardiovascular RRR, no murmur, no edema Extremities: + AV fistula Gastrointestinal (Abdomen) normal bowel sounds, soft, nontender, no hepatosplenomegaly Skin no rashes, warm and dry Psychiatric A+Ox3, euthymic affect Lymphatic 1+ LE edema Discharge Data Allergies Allergy/AdvReac Type Severity Reaction Status Date / Time Influenza Virus Vaccines Allergy Intermediate UNKNOWN Verified 03/02/19 09:53 lisinopril Allergy Intermediate COUGH Verified 03/02/19 09:53 Consultations 03/02/19 14:07 ED Decision to Admit Stat 03/02/19 20:23 Consult Nephrology Routine Ordered Studies 03/03/19 08:46 US renal/blad retro comp Routine Hospital Course (1) Pulmonary edema: 38-year-old with history of insulin-dependent diabetes mellitus type 1 (complications: Nephropathy, retinopathy, neuropathy), CKD 4 (left upper extremity AV fistula placed 06/2018-not used yet), hypertension, hyperlipidemia, anemia, hypothyroidism, vitamin D deficiency, venous stasis ulcers, depression, and anxiety presents with cough since October 2018. Found to have pulmonary edema with worsening renal function. The following is the medical management during [facility] here: Pulmonary edema/CKD IV -Chest x-ray: Pulmonary edema -This was likely caused by bad diet (high salt) leading to hypervolemic state and poor forward flow . Likely that pt became significantly volume overloaded and this overload was too much even with a healthy LV (see ECHO results below) -Creatinine 4.48 bumped up from 4.17 indicating we have dried out pt suffici ently. Baseline Cr 3.5 -Echo May 2017: EF 55 to 60% borderline LVH, LA mildly dilated. Repeat ECHO 03/03: Mild concentric LVH. LV systolic function is normal. -Held home p.o. Bumex 2 mg twice daily, hold home losartan. Given Bumex IV 1.5 mg BID here. Pt will restart home medication (Bumex 2 mg twice daily) on d/c -Pt will require BMP at next provider visit, and will likely need weekly BMP's for a period of time thereafter until better control can be achieved -Left upper extremity aVF June 2018 placed -No emergent indication for dialysis during this admission. Pt prefers [facility] if needing to start dialysis (prefers to coordinate transportation with his brother who is second shift on MWF). Hepatitis profile was sent this admission in anticipation of need to start in the near future, pending -pt educated on salt intake, taking daily weights -Pt follows with Dr. Miranda as an outpatient Hyperglycemia/IDDM1 BSG 415 on arrival, beta hydroxybutyrate normal, 2.5 Increased home Lantus to 15 BID, titrate as appropriate Started on SSI, NovoLog Restricting PO fluid intake as above A1c- 7.7 Anemia At Baseline hgb ~8 likely anemia of chronic disease with CKD4 No concern for bleeding at this time. Pt had previously refused colonoscopy. EGD 01/15, showed gastric polyp - biopsy was negative Epogen 23662 units 11/12. Nephro to coordinate additional EPO as an outpatient Iron Studies: Iron 44, Transferrin 200, Ferritin 427 . IV Iron x2 doses this admission Venofer 200 mg daily x 3 days completed this admission Daily CBC HLD Continue home Lipitor Hypertension -Carvedilol increased to 25 mg BID 12.5 mg BID -Hold home losartan as above in the setting of worsening renal function -New Rx: Amlodipine 5 mg daily -Started on Bumex 1.5 mg IV twice daily for pulmonary edema. Will cont home bumex as above Hypothyroidism Continue Synthroid Diabetic peripheral neuropathy Continue Gabapentin Venous stasis ulcers of both lower extremities Follows with the wound clinic and ID Wound care consulted Depression Continue home Cymbalta At time of d/c, pt has no other acute concerns or complaints. Total Time Total Time Spent Total Time Spent (In Minutes): <30 Discharge Plan Discharge Items Patient Disposition: Home - Self-Care Reason For Visit: COUGH Discharge Diagnosis: pulmonary edema Condition on Discharge: Good Activity: Per Instructions section Non-emergency contact: Primary Care Provider Call non-emergency contact if: you have any medication questions and your symptoms worsen Follow-up/Referrals: [facility] Endocrinology [Provider Group] (Please, follow up at [facility] Endocrinology Office. *A nurse will contact you with the appointment information. The office is located in [address] of [facility], next to [facility]. If you have any questions, call the office at [phone].) [facility] Wound Care [Provider Group] - 03/11/19 1:00 pm (Please, follow up at [facility] Wound Clinic on SaturdayMarch 11 at 1:00 pm. The clinic is located at [address] in [place]. If you have any questions, call the office at [phone].) Zachary Ibanez DO [Physician] - 03/12/19 10:20 am (Please, follow up at [facility] Nephrology Office with Dr. Ibanez on March 12 at 10:20 am. *The office is located in [address] of [facility], next to [facility]. If you need to change this appointment, call the office at [phone].) Maki Peterson MD [Primary Care Provider] - 03/13/19 2:00 pm (Please, follow up with Dr. Peterson on SaturdayMarch 13 at 2:00 pm. *If you need to change this appointment, call the office at [phone].) Amita Lyles PA-C [Physician Sprinkler Repair Technician] - 03/10/19 10:30 am (Please, follow up at [facility] Cardiology Office / CHF Clinic with Zahra Lyles PA-C on SaturdayMarch 10 at 10:30 am. *The office is located in [address] of [facility], next to this hospital. If you need to change this appointment, call the office at [phone].) Diet: Carb Count or DM1 and Low Sodium (2gm) Addtl Attending Provider Instructions: You were admitted with concerns for cough and were found to have pulmonary edema (fluid in your lungs). We took this out with an IV diuretic. Please follow the below instructions on discharge: -You must be diligent about watching your sodium intake, which you are already doing a great job of. Just be careful to watch out for those hidden sources of sodium that can put you over the edge -When you have too much sodium intake, your body holds on to too much fluid, and this can lead to fluid accumulation in your lungs, like it did on this admission. Even though you have good heart function, it can only work so hard and sometimes it gets overloaded with fluid, which can lead to fluid accumulation -Measure your daily weight at home. See instructions below on what to do if weight too high -follow up with your PCP at the date and time listed above. See other appt dates for cardiology and nephrology and wound clinics -continue your home meds as before, The only change we made was increasing your dose of carvedilol to 25 mg 2x/day from 12.5 mg 2x/day. Your BP medication Losartan was stopped here because of your kidney function and you will not take this when you are discharged. Discuss restarting this at your next nephrology/PCP follow up visit. We also added a new BP medication, Amlodipine 5 mg daily (sent to [facility]) If these don't work with your insurance plan/are too expensive, please discuss with your PCP appt so they can make other arrangements REPORT TO YOUR DOCTOR OR SEEK MEDICAL ASSISTANCE IF YOU HAVE: -Shortness of breath or have more difficulty breathing -Swelling of your feet, ankles, hands or abdomen -Feeling tired with normal activity or experiencing dizziness or fainting -Trouble sleeping or waking up feeling short of breath or coughing -Chest pain or pressure -Weight gain of 3-5 pounds over 2-3 days -Inability to take medications or follow treatment plan Pending Studies at Discharge: No Stand-Alone Forms: My [facility] Recoup, Smoking Cessation Medications and DC Order Prescriptions: New amlodipine 5 mg tablet 5 mg PO DAILY Qty: 30 RF: 0 carvedilol 25 mg tablet 25 mg PO BID Qty: 30 RF: 0 Continued levothyroxine 50 mcg capsule 50 mcg PO HS RF: 0 atorvastatin [Lipitor] 80 mg tablet 80 mg PO HS Qty: 30 RF: 5 bumetanide 2 mg tablet 2 mg PO BID Qty: 180 RF: 3 (DME) pen needle, diabetic [BD Ultra-Fine Eladia Pen Needle] 32 gauge x 5/32" needle See Dose Instructions .ROUTE .MEDSUPPLY Qty: 200 RF: 3 gabapentin 300 mg capsule 600 mg PO BID Qty: 120 RF: 5 Toujeo SoloStar U-300 Insulin 300 unit/mL (1.5 mL) insulin pen 20 unit subcut HS Qty: 9 RF: 5 duloxetine 60 mg capsule,delayed release(DR/EC) 60 mg PO QAM RF: 0 (DME) OneTouch Verio strip See Dose Instructions .ROUTE .MEDSUPPLY Qty: 10 RF: 0 (DME) lancets [OneTouch Delica Lancets] 30 gauge misc See Dose Instructions .ROUTE .MEDSUPPLY Qty: 25 RF: 0 Novolog Flexpen U-100 Insulin 100 unit/mL (3 mL) insulin pen 10 units SQ AC Qty: 0 RF: 0 acetaminophen [Tylenol Extra Strength] 500 mg Tablet 1,000 mg PO QAM PRN (Reason: Pain) RF: 0 acetaminophen [Tylenol Extra Strength] 500 mg Tablet 1,500 mg PO HS PRN (Reason: Pain) RF: 0 ergocalciferol (vitamin D2) [Vitamin D2] 50,000 unit capsule 50,000 unit PO TH RF: 0 pantoprazole 40 mg tablet,delayed release (DR/EC) 40 mg PO HS RF: 0 Discontinued carvedilol 12.5 mg tablet 12.5 mg PO BID Qty: 90 RF: 3 losartan 100 mg tablet 100 mg PO QAM Qty: 90 RF: 3 Discharge Orders: Discharge Order (Routine); Ordered 03/06/19 Ordered By: Kieran Grider Admission Data Admit Date/Time: 03/02/19 18:48 Attending Provider: Talib Glover Admit Provider: Feliz Drew Primary Care Provider: Maki Peterson Other Providers: Feliz Drew ; Zachary Ibanez Other Interventions: Discharge Summary Assessment (RN) Last Done: 03/06/19 12:58 DC Date/Time DO NOT enter until pt leaves facility: 03/06/19 15:26 Supervising Physician Co-Signing Physician Notes I personally examined the patient and verified all orourke points of history and exam, discussed case, and agree with decision making with Dr Grider. Feeling okay, happy to be going home, expresses understanding of the dire need to be tight on sodium. Vitals noted, in general he is awake alert pleasant no distress. HEENT normal cephalic atraumatic mucous members moist. Breathing unlabored no accessory muscle use good effort. Skin shows no rashes no pallor or icterus. Fluid overload/pulmonary edema/worsening of his baseline stage IV CKDimproved enough that home with careful management is safe. Even though he does not have congestive heart failure, given the need for close, intensive, dynamic monitoring we have enrolled him in the CHF clinic and I have signed out his situation to the team. Careful sodium restriction Hypertensionfollow-up as an outpatient Uncontrolled type 1 diabetesongoing lifestyle change and insulin management at home Resident Activity Tracking Resident Involvement: Resident Care Provided Care Provided: Adult Hospital Medicine
--- NOTE | 2019-03-06 17:53 | Billing Data ---
Coding Level of Care Code D/C Day Management <30 mins
== END 2019-03-06 15:26 | disposition home or self-care (01) | DRG 189 ==
LOC: ED 09:06 → SUATTDRO 18:48 → 2N 18:48

== ENCOUNTER 2019-05-22 10:49 | Inpatient (IN) ==
--- NOTE | 2019-05-22 11:14 | XRay Report ---
XR chest 1V portable CLINICAL HISTORY: weakness COMPARISON STUDY: 06/04/2018 FINDINGS: The heart remains enlarged. There is mild vascular/interstitial prominence without evidence of overt failure. There are no pleural effusions. There is no focal pulmonary consolidation.[ IMPRESSION: Cardiac megaly. No evidence of focal pulmonary consolidation. ACT 112: Negative or not required by law. Electronically signed by: Warner Sanchez M.D. 05/22/2019 11:13 AM
[2019-05-22 11:31] LABS: Basophils # (auto) 0.01 K/uL (0-0.2); Basophils % (auto) 0.2 %; Eosinophils # (auto) 0.16 K/uL (0-0.5); Eosinophils % (auto) 3.5 %; Hematocrit (blood only) 27.9 % (42-52); Hemoglobin 9.9 g/dL (14.0-18.0); Immature Granulocytes # (auto) 0.01 K/uL (0.00-0.02); Immature Granulocytes % (auto) 0.2 %; Lymphocytes # (auto) 1.55 K/uL (1.2-3.4); Lymphocytes % (auto) 33.7 %; Mean Corpuscular Hemoglobin 29.4 pg (25-34); Mean Corpuscular Hgb Conc 35.5 g/dL (32-36); Mean Corpuscular Volume 82.8 fL (80-100); Mean Platelet Volume 9.9 fL (7.4-10.4); Monocytes # (auto) 0.45 K/uL (0.11-0.59); Monocytes % (auto) 9.8 %; Neutrophils # (auto) 2.42 K/uL (1.4-6.5); Neutrophils % (auto) 52.6 %; Platelet Count 182 K/uL (130-400); RDW Coefficient of Variation 13.7 % (11.5-14.5); RDW Standard Deviation 41.8 fL (36.4-46.3); Red Blood Count 3.37 M/uL (4.7-6.1)
[2019-05-22 11:57] LABS: Albumin Globulin Ratio 0.8 (0.9-2); Albumin Level 3.6 gm/dl (3.4-5.0); BUN Creatinine Ratio 12.5 (10-20); Bilirubin,Total 0.6 mg/dl (0.2-1); Calcium 9.5 mg/dl (8.5-10.1); Creatinine Clr Calc Pharmacy 21.5 ml/min; Est GFR (Non-African American) 11.2; Globulin 4.7 gm/dl (2.5-4.0); Potassium 4.8 mmol/L (3.5-5.1); Total Protein 8.3 gm/dl (6.4-8.2)
[2019-05-22 12:02] LABS: Thyroid Stimulating Hormone 2.08 uIu/ml (0.300-4.500)
[2019-05-22 12:09] LABS: Beta-Hydroxybutyrate 0.58 mg/dl (0.2-2.81)
--- NOTE | 2019-05-22 12:26 | Consultation ---
Date of Consultation May 22, 2019 Assessment & Plan (1) Dialysis AV fistula malfunction: Pt discussed wtih Dr Combs, recommends pt undergo LUE AVF thrombectomy today in OR. Pt aware that if unable to revascularize AVF, pt will require permcath insertion for HD. Pt is agreeable. NPO. Patient for thrombectomy with fistulogram and possible intervention. I have discussed the risks options and benefits of the procedure with the patient. The patient understands the risks options and benefits and agrees to the procedure. Encounter type: initial encounter Qualified Code(s): T82.590A - Other mechanical complication of surgically created arteriovenous fistula, initial encounter Present on Admission?: Yes History of Present Illness Reason for Consultation: L thrombosed LUE AVF History of Present Illness 38 yo m with hx of ESRD on HD, HTN, DMII, hypothyroidism, venous stasis, seen in consultation today for thrombosed LUE AVF noted at HD unit today. Pt known to Dr Combs for previous permcath insertion last month d/t infiltration. Pt had permcath removed on 05/12/19. Pt states he ran HD fine Saturday and Saturday this week, but today they were unable to gain access and the nurses did not feel the bruit, so they sent him to [facility] ED. Pt states feeling fine otherwise, admits to being hungry, since he did not eat since 0730 this morning. Pt denies SHELBY, fever, chills, chest pain, SOB, abd pain, N/V, rest pain, claudication, other complaints. Allergies Allergy/AdvReac Type Severity Reaction Status Date / Time lisinopril Allergy Intermediate COUGH Verified 05/22/19 13:11 Home Medications Home Medications Medication Instructions Recorded Confirmed Type levothyroxine 50 mcg capsule 50 mcg PO HS 09/26/18 05/22/19 History ergocalciferol (vitamin D2) 50,000 unit PO TH 10/09/18 05/22/19 History [Vitamin D2] bumetanide 2 mg tablet 2 mg PO BID #180 tab 11/27/18 05/22/19 Rx insulin glargine U-300 conc 300 20 unit SUBCUT HS #9 ml 02/20/19 05/22/19 Rx unit/mL (1.5 mL) subcutaneous pen pantoprazole 40 mg PO QAM 03/02/19 05/22/19 History gabapentin 300 mg capsule 600 mg PO BID cap 03/10/19 05/22/19 History carvedilol 12.5 mg PO BID 04/03/19 05/22/19 History amlodipine 5 mg tablet 5 mg PO DAILY #30 tab 04/07/19 05/22/19 Rx atorvastatin 80 mg tablet 80 mg PO HS #30 tab 04/27/19 05/22/19 Rx insulin aspart U-100 [Novolog 20 units SQ AC 05/12/19 05/22/19 History Flexpen U-100 Insulin] duloxetine 60 mg capsule,delayed 60 mg PO DAILY #30 cap 05/14/19 05/22/19 Rx release Patient History Medical History (Updated 05/22/19 @ 13:23 by Esther Cassidy DO) Anemia (Chronic) Bilateral swelling of feet (Chronic) Depression (Chronic) 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) Diabetic retinopathy (Chronic) ESRD (end stage renal disease) H/O febrile seizure (Resolved) High cholesterol (Chronic) Hypertension (Chronic) Hypothyroidism (Chronic) Intellectual functioning disability (Chronic) Obesity (Chronic) Type 1 diabetes (Chronic) Venous stasis ulcers of both lower extremities (Resolved) Vitamin D deficiency Surgical History H/O detached retina repair S/P arteriovenous (AV) fistula creation Family History (Updated 05/22/19 @ 13:04 by Esther Cassidy DO) Other Cancer Social History Preferred Language: Spanish Communication Ability: Effective Visual Impairment: No Limitations Hearing Ability: Normal Property Investor Required: No Beliefs That Will Affect Care: None marital status: Single Current Living Situation: Family Current Living Situation Comment: lives with brother 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" Other Information That Helps Us Care for You: No Feels Safe at Home: Yes Safety Concerns: Feels Safe At This Time Smoking Status: Never smoker Do You Dip or Chew Tobacco: No ; Second Hand Exposure: No ; Tobacco Cessation Education Requested by Patient: No Hx Alcohol Use: No Hx Substance Use: No Dental Care, Regularly: No Physical Activity Frequency: Does not Exercise Seatbelt Use: always Sunscreen Use: No Review of Systems Review of Systems: All systems reviewed & are unremarkable except as noted in HPI & below Physical Exam Constitutional: WD/WN, vitals as above + morbidly obese and healthy appearing; not in distress Eyes: PERRL, conjunctivae normal, anicteric sclerae ENMT: external ear and nose normal, oropharynx normal Ears: no hearing impairment Neck: trachea midline, no thyromegaly Respiratory: normal respiratory effort, lungs clear to auscultation Cardiovascular: Rate/Rhythm: regular rate and regular rhythm Vessels: femoral pulses present, posterior tibial pulses present, dorsalis pedis pulses present, brachial pulses present and radial pulses present; + abnormal peripheral pulses Extremities: normal capillary refill, + edema and + AV fistula (LUE pulsatile proximal, no thrill, firm. ) Gastrointestinal (Abdomen): normal bowel sounds, soft, nontender, no hepatosplenomegaly Musculoskeletal: no cyanosis or clubbing, extremities motor strength 5/5 Skin: no rashes, warm and dry Neurologic: moves all extremities and awake; no focal motor deficits and not confused Psychiatric: A+Ox3, euthymic affect Results & Data Vital Signs (Past 12 Hours) Vital Signs Temp Pulse Resp BP Pulse Ox 05/22/19 11:22 98 05/22/19 10:55 36.8 C 85 18 178/98 H 97
[2019-05-22] MEDS ORDERED: D5W AND 1/4NSS 1,000 ML IV SCH (12:30)
[2019-05-22] MEDS ORDERED: SODIUM CHLORIDE 0.9% 1000ML 1,000 ML IV PRN (12:43)
--- NOTE | 2019-05-22 13:02 | History & Physical Report ---
Date of Service May 22, 2019 Assessment & Plan (1) Dialysis AV fistula malfunction: Patient with LUE AV fistula, non-functioning at this time. No thrill or pulsation. Suspect acute thrombosis. -Admit to medical floor with telemetry -Vascular surgery consulted - plan to take the patient to the OR later today for LUE AVF thrombectomy with possible perm cath placement -Keep patient NPO -Cefazolin 1gm ordered human resources professional to OR -Would avoid glucose containing maintenance fluids at this time given patient's hyperglycemia. Present on Admission?: Yes (2) ESRD needing dialysis: Patient with ESRD on HD q //. He received a full treatment on /, no treatment today due to malfunctioning fistula. He denies SOB, chemical parameters acceptable. He does make urine and is on daily Bumex -Nephrology consulted, assistance appreciated -NPO for now -Monitor electrolytes -Continue daily Bumex. Will start post-operatively Present on Admission?: Yes (3) Hyperglycemia due to type 1 diabetes mellitus: Patient with Type I DM, elevated blood sugar today at 400. Last DawN0F=8.2 in March 2019. He reports taking 20u of Toujeo qHS and Novolog 20u with meals. He gave himself 40u of Toujeo last night at 21:00 because he had a high carb dinner. Administered 20u of Novolog at 08:00 today. -Continue Toujeo 20u qHS -ISS for now while NPO - CF 17, CR 8 -BSG qAC/HS -Will give 12u of regular insulin now and repeat blood sugar on floor -Continue Gabapentin for diabetic polyneuropathy Present on Admission?: Yes (4) Vitamin D deficiency: Chronic. Stable. -Will hold Vitamin D while inpatient, patient may resume this medication at home Present on Admission?: Yes (5) Hypertension: Blood pressure elevated, 178/95. Patient reports he discontinued his Amlodipine approximately 3 weeks ago due to concern that it may cause LE edema -Will resume Amlodipine -Continue to monitor BP -Continue Carvedilol Present on Admission?: Yes (6) Anemia: Hgb=9.9, Hct=27.9. No active bleeding -Continue to monitor Present on Admission?: Yes (7) Depression: Patient reports stable moods -Continue Duloxetine Present on Admission?: Yes (8) Hypothyroidism: Chronic. TSH within normal range at 2.080 today -Continue Synthroid. Present on Admission?: Yes (9) High cholesterol: Chronic -Continue Atorvastatin (10) GERD (gastroesophageal reflux disease): Chronic. Well controlled -Continue Protonix 40mg po daily F/E/N - Heplock. Monitor electrolytes. NPO for now Ppx - SCDs Code - Full Dispo - To Medical floor with telemetry monitoring History of Present Illness Chief Complaint: AV Fistula malfunction Primary Care Provider: Maki ovalles MD [place] Munguia is a 38yo C male with history of ESRD secondary to Type I DM, HTN, on HD q M/W/ presenting with LUE AV fistula malfunction. Patient had the fistula placed in June, at [facility]. He has never had an issue with his acces before. He received HD on Saturday and Saturday, states that they had to cannulate lower on his fistula each time. Today no thrill detected, patient did not receive his HD. He denies complaints at this time. No fevers/chill/nausea/vomiting/diarrhea or constipation. He denies SOB. He still makes urine. Patient reports falling in the shower on Saturday and bumping the area of his fistula which may have caused the clot. ER Course: No treatments administered Allergies Allergy/AdvReac Type Severity Reaction Status Date / Time lisinopril Allergy Intermediate COUGH Verified 05/22/19 13:11 Home Medications Home Medications Medication Instructions Recorded Confirmed Type levothyroxine 50 mcg capsule 50 mcg PO HS 09/26/18 05/12/19 History ergocalciferol (vitamin D2) 50,000 unit PO TH 10/09/18 05/12/19 History [Vitamin D2] bumetanide 2 mg tablet 2 mg PO BID #180 tab 11/27/18 05/12/19 Rx insulin glargine U-300 conc 300 20 unit SUBCUT HS #9 ml 02/20/19 05/12/19 Rx unit/mL (1.5 mL) subcutaneous pen pantoprazole 40 mg PO QAM 03/02/19 05/12/19 History gabapentin 300 mg capsule 600 mg PO BID cap 03/10/19 05/12/19 History carvedilol 12.5 mg PO DAILY 04/03/19 05/12/19 History amlodipine 5 mg tablet 5 mg PO DAILY #30 tab 04/07/19 05/12/19 Rx atorvastatin 80 mg tablet 80 mg PO HS #30 tab 04/27/19 05/12/19 Rx insulin aspart U-100 [Novolog 20 units SQ AC 05/12/19 05/12/19 History Flexpen U-100 Insulin] duloxetine 60 mg capsule,delayed 60 mg PO DAILY #30 cap 05/14/19 Rx release Past Med/Surg History Medical History (Updated 05/22/19 @ 13:23 by Esther Cassidy DO) Anemia (Chronic) Bilateral swelling of feet (Chronic) Depression (Chronic) 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) Diabetic retinopathy (Chronic) ESRD (end stage renal disease) H/O febrile seizure (Resolved) High cholesterol (Chronic) Hypertension (Chronic) Hypothyroidism (Chronic) Intellectual functioning disability (Chronic) Obesity (Chronic) Type 1 diabetes (Chronic) Venous stasis ulcers of both lower extremities (Resolved) Vitamin D deficiency Surgical History H/O detached retina repair S/P arteriovenous (AV) fistula creation Family History (Updated 05/22/19 @ 13:03 by Esther Cassidy DO) Other Cancer Social History Preferred Language: Polish Communication Ability: Effective Visual Impairment: No Limitations Hearing Ability: Normal [employer] Required: No Beliefs That Will Affect Care: None marital status: Single Current Living Situation: Family Current Living Situation Comment: lives with brother 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" Feels Safe at Home: Yes Smoking Status: Never smoker Hx Alcohol Use: Yes Alcohol type: beer Hx Substance Use: No Dental Care, Regularly: No Physical Activity Frequency: Does not Exercise Seatbelt Use: always Sunscreen Use: No Review of Systems Review of Systems: All systems reviewed & are unremarkable except as noted in HPI & below Physical Exam Physical Exam: General: patient resting comfortably, NAD, non-toxic in appearance, AA&O x 4 Skin: warm, dry, flaking, intact HEENT: NC/AT, PERRL, EOMI, anicteric sclera, conjunctiva without injection, external ear normal to inspection and nontender, nares patent, moist mucus membranes, dentition intact, no oropharyngeal lesions, neck supple, trachea midline, no LAD, no thyromegaly, no JVD Heart: +S1/S2, regular, no m/r/g Lungs: equal air entry bilaterally, no rales/rhonchi/wheezes Abd: +BS, soft, NT/ND, no masses/organomegaly/ascites Ext: warm, 2+ pulses in UE/LE bilaterally, no clubbing/cyanosis or edema, LUE AV fistula in place, no thrill appreciated Neuro: nonfocal, patient AA&O x 4, speech intact, no facial droop, moving all extremities on command with equal strength 5/5 Results & Data Vital Signs (Past 12 Hours) Vital Signs Temp Pulse Pulse Resp BP BP Pulse Ox 05/22/19 12:45 78 16 149/90 H 99 05/22/19 11:22 98 05/22/19 10:55 36.8 C 85 18 178/98 H 97 Laboratory Results Lab Results 05/22/19 05/22/19 Range/Units 11:20 11:20 WBC 4.60 L (4.8-10.8) K/uL RBC 3.37 L (4.7-6.1) M/uL Hgb 9.9 L (14.0-18.0) g/dL Hct 27.9 L (42-52) % MCV 82.8 (80-100) fL MCH 29.4 (25-34) pg MCHC 35.5 (32-36) g/dL RDW Std Deviation 41.8 (36.4-46.3) fL RDW Coeff of Yuki 13.7 (11.5-14.5) % Plt Count 182 (130-400) K/uL MPV 9.9 (7.4-10.4) fL Immature Gran % (Auto) 0.2 % Neut % (Auto) 52.6 % Lymph % (Auto) 33.7 % [place] % (Auto) 9.8 % Eos % (Auto) 3.5 % Baso % (Auto) 0.2 % Immature Gran # (Auto) 0.01 (0.00-0.02) K/uL Neut # (Auto) 2.42 (1.4-6.5) K/uL Lymph # (Auto) 1.55 (1.2-3.4) K/uL [place] # (Auto) 0.45 (0.11-0.59) K/uL Eos # (Auto) 0.16 (0-0.5) K/uL Baso # (Auto) 0.01 (0-0.2) K/uL Sodium 133 L (136-145) mmol/L Potassium 4.8 (3.5-5.1) mmol/L Chloride 95 L (98-107) mmol/L Carbon Dioxide 30 (21-32) mmol/L Anion Gap 7.0 (3-11) BUN 73 H (7-18) mg/dl Creatinine 5.89 H* (0.6-1.4) mg/dl Est Cr Clr Drug Dosing 21.5 ml/min Est GFR ( Amer) 13.0 Est GFR (Non-Af Amer) 11.2 BUN/Creatinine Ratio 12.5 (10-20) Glucose 400 H* (70-99) mg/dl Calcium 9.5 (8.5-10.1) mg/dl Total Bilirubin 0.6 (0.2-1) mg/dl AST 21 (15-37) U/L ALT 40 (12-78) U/L Alkaline Phosphatase 275 H (45-117) U/L Total Protein 8.3 H (6.4-8.2) gm/dl Albumin 3.6 (3.4-5.0) gm/dl Globulin 4.7 H (2.5-4.0) gm/dl Albumin/Globulin Ratio 0.8 L (0.9-2) Beta-Hydroxybutyric Acd 0.58 (0.2-2.81) mg/dl TSH 2.080 (0.300-4.500) uIu/ml Diagnostic Findings XR chest 1V portable CLINICAL HISTORY: weakness COMPARISON STUDY: 06/04/2018 FINDINGS: The heart remains enlarged. There is mild vascular/interstitial prominence without evidence of overt failure. There are no pleural effusions. Th ere is no focal pulmonary consolidation.[ IMPRESSION: Cardiac megaly. No evidence of focal pulmonary consolidation. ACT 112: Negative or not required by law. Electronically signed by: Warner Sanchez M.D. 05/22/2019 11:13 AM Dictated: 05/22/19 1112 Transcribed: 05/22/19 1112 ECG Additional Comments: The study shows NSR at 84bpm, FX=837, QRS=90, HHf=146, LVH criteria present Code Status & VTE Plan Code Status FULL VTE Prophylaxis Plan VTE Prophylaxis will be ordered: No Reason for no VTE drug order: Treatment not indicated Reason for no VTE mechanical prophylaxis: Treatment not indicated PG Care Time/CCT Total # of Minutes Spent Total Time Spent with Patient: Total time spent is greater than 50% in coordination of care (as documented) at patient's floor/unit and/or counseling patient: Coding Level of Care Code 93452 Initial Inpt Care Lvl 3 Diagnoses Dialysis AV fistula malfunction T82.590A Encounter type: initial encounter ESRD needing dialysis N18.6; Z99.2 Hyperglycemia due to type 1 diabetes mellitus E10.65 Vitamin D deficiency E55.9 Hypertension I10 Hypertension type: unspecified Anemia N18.6; D63.1; Z99.2 Anemia type: due to chronic kidney disease Chronic kidney disease stage: on chronic dialysis Depression F33.9 Depression Type: major depressive disorder Major depression recurrence: recurrent Active/Remission status: remission status unspecified Hypothyroidism E03.9 Hypothyroidism type: unspecified High cholesterol E78.00 GERD (gastroesophageal reflux disease) K21.9 Esophagitis presence: esophagitis presence not specified (1) Dialysis AV fistula malfunction Encounter type: initial encounter Qualified Code(s): T82.590A - Other mechanical complication of surgically created arteriovenous fistula, initial encounter (2) Hypertension Hypertension type: unspecified Qualified Code(s): I10 - Essential (primary) hypertension (3) Anemia Anemia type: due to chronic kidney disease Chronic kidney disease stage: on chronic dialysis Qualified Code(s): N18.6 - End stage renal disease; D63.1 - Anemia in chronic kidney disease; Z99.2 - Dependence on renal dialysis (4) Depression Depression Type: major depressive disorder Major depression recurrence: recurrent Active/Remission status: remission status unspecified Qualified Code(s): F33.9 - Major depressive disorder, recurrent, unspecified (5) Hypothyroidism Hypothyroidism type: unspecified Qualified Code(s): E03.9 - Hypothyroidism, unspecified (6) GERD (gastroesophageal reflux disease) Esophagitis presence: esophagitis presence not specified Qualified Code(s): K21.9 - Gastro-esophageal reflux disease without esophagitis
--- NOTE | 2019-05-22 13:06 | Electrocardiogram Report ---
Test Reason : Blood Pressure : / mmHG Vent. Rate : 084 BPM Atrial Rate : 084 BPM P-R Int : 142 ms QRS Dur : 090 ms QT Int : 370 ms P-R-T Axes : 021 -04 022 degrees QTc Int : 437 ms Poor data quality, interpretation may be adversely affected Normal sinus rhythm Voltage criteria for left ventricular hypertrophy Abnormal ECG When compared with ECG of 03-APR-2019 12:05, Nonspecific T wave abnormality no longer evident in Lateral leads Confirmed by Rich Marie ([id number]) on 05/22/2019 1:05:52 PM Referred By: ED Confirmed By:Brandon Marie
[2019-05-22] MEDS ORDERED: ROPIVACAINE 0.5% 5 MG/ML 30 ML VIAL ONE (13:30)
[2019-05-22] MEDS ORDERED: EPINEPHrine INJ 1 MG/ML AMP ONE (13:30)
[2019-05-22] MEDS ORDERED: cloNIDine HCL 100 MCG/ML SYR ONE (13:31)
[2019-05-22] MEDS ORDERED: NovoLIN-R INSULIN PER UNIT CHARGE IV ONE (14:00)
[2019-05-22] MEDS ORDERED: fentaNYL citrate 100 MCG/2 ML VIAL ONE (14:35)
[2019-05-22] MEDS ORDERED: MIDAZOLAM HCL 1 MG/ML 2ML VIAL ONE ×2 (14:35→16:11)
[2019-05-22] MEDS ORDERED: ONDANSETRON INJ 2 MG/ML 2 ML VIAL ONE (14:37)
[2019-05-22] MEDS ORDERED: LIDOCAINE HCL 2% 2 ML VIAL/AMP(20MG/ML) INFIL ONE (14:37)
[2019-05-22] MEDS ORDERED: PROPOFOL IV EMULSION 10 MG/ML 20 ML VIAL IV ONE ×2 (14:37→16:50)
[2019-05-22] MEDS ORDERED: BUPIVACAINE/EPINEPHRINE 0.5% MPF 1:200,000 10 ML VIAL ONE (14:46)
[2019-05-22] MEDS ORDERED: LIDOCAINE HCL 1% 20 ML VIAL ONE (14:47)
[2019-05-22] MEDS ORDERED: GELATIN SPONGE 12-7MM ONE (14:47)
[2019-05-22] MEDS ORDERED: THROMBIN FOR SOLN 20000 UNIT KIT ONE (14:48)
[2019-05-22] MEDS ORDERED: HEPARIN (PORCINE) 1000 UNIT/ML 10 ML (CATH LAB USE ONLY) ONE (14:48)
--- NOTE | 2019-05-22 14:48 | Emergency Department Note ---
Entered by Joaquín Sumner acting as a scribe for Zachary Eckert MD History of Present Illness General Chief complaint: Illness Time Seen by Provider: 05/22/19 10:58 Source: patient History of Present Illness Onset (ago): hour(s) (this morning) Location: upper extremity and left Pain Consistency: + constant Maximum Pain Intensity: 3 Quality: + other (blockage to his fistula) Associated symptoms: no nausea/vomiting The patient is a 38 y/o male who presents to the ED w/ CC of a constant blockage to the fistula in his left upper arm beginning this morning. The patient states he was at dialysis today at [facility] and could not receive it because his fistula was blocked. He reports his fistula was put in 1.5 years ago by Marielena Recio. The patient notes he will not go back there for further management. He states his tire molder is Dr. Miranda. He denies nausea and vomiting. Home Medications Home Medications Medication Instructions Recorded Confirmed Type levothyroxine 50 mcg capsule 50 mcg PO HS 09/26/18 05/22/19 History ergocalciferol (vitamin D2) 50,000 unit PO TH 10/09/18 05/22/19 History [Vitamin D2] bumetanide 2 mg tablet 2 mg PO BID #180 tab 11/27/18 05/22/19 Rx insulin glargine U-300 conc 300 20 unit SUBCUT HS #9 ml 02/20/19 05/22/19 Rx unit/mL (1.5 mL) subcutaneous pen pantoprazole 40 mg PO QAM 03/02/19 05/22/19 History gabapentin 300 mg capsule 600 mg PO BID cap 03/10/19 05/22/19 History carvedilol 12.5 mg PO BID 04/03/19 05/22/19 History amlodipine 5 mg tablet 5 mg PO DAILY #30 tab 04/07/19 05/22/19 Rx atorvastatin 80 mg tablet 80 mg PO HS #30 tab 04/27/19 05/22/19 Rx insulin aspart U-100 [Novolog 20 units SQ AC 05/12/19 05/22/19 History Flexpen U-100 Insulin] duloxetine 60 mg capsule,delayed 60 mg PO DAILY #30 cap 05/14/19 05/22/19 Rx release Allergies Allergy/AdvReac Type Severity Reaction Status Date / Time lisinopril Allergy Intermediate COUGH Verified 05/22/19 13:11 Past Med/Surg History Medical History Anemia (Chronic) Bilateral swelling of feet (Chronic) Depression (Chronic) 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) Diabetic retinopathy (Chronic) ESRD (end stage renal disease) H/O febrile seizure (Resolved) High cholesterol (Chronic) Hypertension (Chronic) Hypothyroidism (Chronic) Intellectual functioning disability (Chronic) Obesity (Chronic) Type 1 diabetes (Chronic) Venous stasis ulcers of both lower extremities (Resolved) Vitamin D deficiency Surgical History H/O detached retina repair S/P arteriovenous (AV) fistula creation Family History Other Cancer Social History Preferred Language: [place] Communication Ability: Effective Visual Impairment: No Limitations Hearing Ability: Normal Medical Technologist Required: No Beliefs That Will Affect Care: None marital status: Single Current Living Situation: Family Current Living Situation Comment: lives with brother 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 and A total of 10 systems reviewed and were otherwise negative Physical Exam Vital Signs Vital Signs - 24 hr 05/22/19 10:55 05/22/19 11:22 05/22/19 12:45 Temperature 98.2 F Temperature Source Oral Pulse Rate 85 Pulse Rate [Finger] 78 Pulse Rhythm Regular Pulse Rhythm [Finger] Regular Pulse Strength Normal Pulse Strength [Finger] Normal Respiratory Rate 18 16 Respiratory Effort / Characteristics Non-Labored Spontaneous Non-Labored Spontaneous Respiratory Depth Normal Normal Respiratory Pattern Regular Regular Blood Pressure 178/98 H Blood Pressure [Right Arm] 149/90 H Blood Pressure Mean 124 Blood Pressure Mean [Right Arm] 109 Blood Pressure Position Lying Blood Pressure Position [Right Arm] Lying Pulse Oximetry 97 98 99 Oxygen Delivery Method Room Air Room Air Room Air Sepsis Recent Fever Within 48 Hours No Sepsis New/Unexplained Change in Mental Status No Sepsis Action Taken by Nursing No Action Required 05/22/19 14:36 05/22/19 15:18 Temperature 97.5 F L Temperature Source Oral Pulse Rate 77 Pulse Rate [Finger] 85 Pulse Rhythm Pulse Rhythm [Finger] Pulse Strength Pulse Strength [Finger] Respiratory Rate 18 20 Respiratory Effort / Characteristics Respiratory Depth Respiratory Pattern Blood Pressure 140/85 Blood Pressure [Right Arm] 149/81 H Blood Pressure Mean Blood Pressure Mean [Right Arm] 103 Blood Pressure Position Blood Pressure Position [Right Arm] Pulse Oximetry 97 100 Oxygen Delivery Method Room Air Sepsis Recent Fever Within 48 Hours Sepsis New/Unexplained Change in Mental Status Sepsis Action Taken by Nursing GENERAL: Awake, alert, well-appearing, in no acute distress HENT: Normocephalic, atraumatic. Oropharynx unremarkable. EYES: Normal conjunctiva. Sclera non-icteric. NECK: Supple. No nuchal rigidity. FROM. No JVD. RESPIRATORY: Clear to auscultation. CARDIAC: Regular rate, normal rhythm. Extremities warm and well perfused. Pulses equal. ABDOMEN: Soft, non-distended. No tenderness to palpation. No rebound or guarding. No masses. RECTAL: Deferred. MUSCULOSKELETAL: Chest examination reveals no tenderness. The back is s ymmetrical on inspection without obvious abnormality. There is no CVA tenderness to palpation. No joint edema. Fistula present in the left upper extremity. LOWER EXTREMITIES: Calves are equal size bilaterally and non-tender. No edema. No discoloration. NEURO: Normal sensorium. No sensory or motor deficits noted. SKIN: No rash or jaundice noted. Course Course 1100: Past medical records reviewed. The patient was evaluated in room C02B. A complete history and physical exam was performed. 1101: I discussed the patient's case with Dr. Combs, Vascular Surgeon. He recommends I order labs and then call him back with the results. 1206: I discussed the patient's case with Dr. Miranda, Nephrology. I was advised to admit the patient to medicine and Dr. Kennedy will be on consult today. 1223: I reviewed the patient's case with Dr. Cassidy, [facility] Hospitalist. She will evaluate the patient for further management. 1235: Upon reevaluation, the patient is resting comfortably. I discussed laboratory and radiographic results with him. He verbalized agreement of the treatment plan. The patient will be evaluated for further management and care. 1246: I discussed the patient's case with Dr. Kennedy, Nephrology. She will evaluate the patient and be on consult. 1456: Dr. Kennedy evaluated the patient and is going to take him to the OR. Administered Medications Discontinued Medications Amlodipine Besylate (Norvasc) 5 mg PO DAILY [facility] Stop: 06/22/19 08:59 Last Admin: 05/23/19 09:35 Dose: Not Given Documented by: [id number] Atorvastatin Calcium (Lipitor) 80 mg PO HS [facility] Stop: 06/21/19 20:59 Last Admin: 05/23/19 20:55 Dose: 80 mg Documented by: [id number] Admin: 05/22/19 21:05 Dose: 80 mg Documented by: [id number] Bumetanide (Bumex) 2 mg PO [id number] [facility] Stop: 06/22/19 08:59 Last Admin: 05/23/19 20:54 Dose: 2 mg Documented by: [id number] Admin: 05/23/19 09:36 Dose: 2 mg Documented by: [id number] Bupivacaine HCl/Epinephrine Bitart (Sensorcaine/Epinephrine 0.5% Mpf 1:200,000) Confirm Administered Dose 20 ml .ROUTE .[facility] Stop: 05/22/19 14:47 Last Admin: 05/22/19 17:28 Dose: 20 ml Documented by: [id number] Carvedilol (Coreg) 12.5 mg PO BID [facility] Stop: 06/21/19 20:59 Last Admin: 05/23/19 20:53 Dose: 12.5 mg Documented by: [id number] Admin: 05/23/19 09:35 Dose: 12.5 mg Documented by: [id number] Admin: 05/22/19 21:04 Dose: 12.5 mg Documented by: [id number] Duloxetine HCl (Cymbalta) 60 mg PO DAILY [facility] Stop: 06/22/19 08:59 Last Admin: 05/23/19 09:36 Dose: 60 mg Documented by: [id number] Fentanyl Citrate (Fentanyl Citrate) 50 mcg IV Q5M PRN PRN Reason: PACU Use Only-Pain Stop: 05/22/19 20:06 Last Admin: 05/22/19 17:57 Dose: 50 mcg Documented by: [id number] Gabapentin (Neurontin) 600 mg PO BID [facility] Stop: 06/21/19 20:59 Last Admin: 05/23/19 20:55 Dose: 600 mg Documented by: [id number] Admin: 05/23/19 09:36 Dose: 600 mg Documented by: [id number] Admin: 05/22/19 21:05 Dose: 600 mg Documented by: [id number] Gelatin (Surgifoam Sponge 12-7mm (Small)) Confirm Administered Dose 2 ea .ROUTE .[facility] Stop: 05/22/19 14:48 Last Admin: 05/22/19 17:28 Dose: Not Given Documented by: [id number] Heparin Sodium (Porcine) (Heparin Iv Bolus (Refinery Pipeline Operator Use Only)) Confirm Administered Dose 10,000 units .ROUTE .[facility] Stop: 05/22/19 14:49 Last Admin: 05/22/19 17:44 Dose: 5,000 units Documented by: [id number] Heparin Sodium (Porcine) (Heparin Iv Bolus) Confirm Administered Dose 10,000 units .ROUTE .[facility] ONE Stop: 05/22/19 15:49 Last Admin: 05/22/19 17:47 Dose: 5,000 units Documented by: [id number] Cosigned by: [id number] Dextrose/Sodium Chloride (D5w And 1/4nss) 1,000 mls @ 10 mls/hr IV .Q24H [facility] Stop: 05/23/19 12:29 Last Admin: 05/22/19 12:55 Dose: Not Given Documented by: [id number] Cefazolin Sodium (Ancef 3000mg) 72.5 mls @ 130 mls/hr IV PREOP [facility]; Protocol Stop: 05/22/19 19:00 Last Infusion: 05/22/19 19:51 Dose: 0 mls/hr Documented by: [id number] Admin: 05/22/19 15:15 Dose: 130 mls/hr Documented by: [id number] Insulin Aspart (Novolog Flexpen) 0 units SC ACHS [facility] Stop: 06/21/19 20:59 Last Admin: 05/22/19 21:06 Dose: 15 units Documented by: [id number] Cosigned by: [id number] Insulin Aspart (Novolog Flexpen) 0 units SC Q6 [facility] Stop: 06/22/19 05:59 Last Admin: 05/23/19 08:30 Dose: 9 units Documented by: [id number] Cosigned by: [id number] Admin: 05/23/19 06:22 Dose: 5 units Documented by: [id number] Cosigned by: [id number] Insulin Aspart (Novolog Flexpen) 0 units SC ACHS [facility] Stop: 06/22/19 11:29 Last Admin: 05/23/19 21:48 Dose: Not Given Documented by: [id number] Cosigned by: [id number] Admin: 05/23/19 17:57 Dose: Not Given Documented by: [id number] Cosigned by: [id number] Admin: 05/23/19 12:37 Dose: 10 units Documented by: [id number] Cosigned by: [id number] Insulin Glargine (Lantus Solostar Pen) 20 units SQ HS [facility] Stop: 06/22/19 20:59 Last Admin: 05/23/19 21:48 Dose: 20 units Documented by: [id number] Cosigned by: [id number] Insulin Glargine (Lantus Solostar Pen) 16 units SC [facility] Stop: 05/23/19 18:00 Last Admin: 05/22/19 21:04 Dose: 16 units Documented by: [id number] Cosigned by: [id number] Insulin Human Regular (Novolin R U-100 Per Unit) 12 units IV ONE ONE Stop: 05/22/19 14:01 Last Admin: 05/22/19 14:14 Dose: 12 units Documented by: [id number] Cosigned by: [id number] [facility]ine [facility]) [facility]: 06/22/19 06:29 Last Admin: 05/23/19 06:22 Dose: 50 mcg Documented by: [id number] Lidocaine HCl (Xylocaine 1% (Local)) Confirm Administered Dose 20 ml .ROUTE .[facility] ONE Stop: 05/22/19 14:48 Last Admin: 05/22/19 17:25 Dose: 20 ml Documented by: [id number] Miscellaneous (Surgicel Absorb Hemostat 2in X 14in) 1 ea TOP ONCE ONE Stop: 05/22/19 17:23 Last Admin: 05/22/19 23:43 Dose: Not Given Documented by: [id number] Oxycodone/Acetaminophen (Percocet 5mg/325mg) 1 - 2 tab PO Q4H PRN PRN Reason: Moderate Pain Stop: 06/05/19 19:40 Last Admin: 05/23/19 20:07 Dose: 2 tab Documented by: [id number] Admin: 05/22/19 21:50 Dose: 2 tab Documented by: [id number] Pantoprazole Sodium (Protonix) 40 mg PO QAM [facility] Stop: 06/22/19 08:59 Last Admin: 05/23/19 09:36 Dose: 40 mg Documented by: [id number] Thrombin (Recothrom Kit) Confirm Administered Dose 20,000 units .ROUTE .[facility] ONE Stop: 05/22/19 14:49 Last Admin: 05/22/19 17:42 Dose: Not Given Documented by: [id number] Medical Decision Making Differential Diagnosis Differential Diagnosis includes but is not limited to dehydration, stroke, anemia, hypoglycemia, hyponatremia, hypernatremia, urinary tract infection, pn eumonia, bronchitis, sepsis, gastroenteritis, additional abdominal pathology, metabolic abnormalities and infections. Medical Records Attestation: I reviewed the patient's medical records. Home Medications Current Medication List: was personally reviewed by me Laboratory Data Attestation: I reviewed the patient's lab results. Result diagrams: 05/23/19 07:43 05/23/19 07:43 Lab Results 05/22/19 05/22/19 05/22/19 Range/Units 11:20 11:20 14:08 WBC 4.60 L (4.8-10.8) K/uL RBC 3.37 L (4.7-6.1) M/uL Hgb 9.9 L (14.0-18.0) g/dL Hct 27.9 L (42-52) % MCV 82.8 (80-100) fL MCH 29.4 (25-34) pg MCHC 35.5 (32-36) g/dL RDW Std Deviation 41.8 (36.4-46.3) fL RDW Coeff of Yuki 13.7 (11.5-14.5) % Plt Count 182 (130-400) K/uL MPV 9.9 (7.4-10.4) fL Immature Gran % (Auto) 0.2 % Neut % (Auto) 52.6 % Lymph % (Auto) 33.7 % Hidalgo % (Auto) 9.8 % Eos % (Auto) 3.5 % Baso % (Auto) 0.2 % Immature Gran # (Auto) 0.01 (0.00-0.02) K/uL Neut # (Auto) 2.42 (1.4-6.5) K/uL Lymph # (Auto) 1.55 (1.2-3.4) K/uL [place]go # (Auto) 0.45 (0.11-0.59) K/uL Eos # (Auto) 0.16 (0-0.5) K/uL Baso # (Auto) 0.01 (0-0.2) K/uL Sodium 133 L (136-145) mmol/L Potassium 4.8 (3.5-5.1) mmol/L Chloride 95 L (98-107) mmol/L Carbon Dioxide 30 (21-32) mmol/L Anion Gap 7.0 (3-11) BUN 73 H (7-18) mg/dl Creatinine 5.89 H* (0.6-1.4) mg/dl Est Cr Clr Drug Dosing 21.5 ml/min Est GFR ( Amer) 13.0 Est GFR (Non-Af Amer) 11.2 BUN/Creatinine Ratio 12.5 (10-20) Glucose 400 H* (70-99) mg/dl POC Glucose 298 H (70-99) mg/dl Calcium 9.5 (8.5-10.1) mg/dl Total Bilirubin 0.6 (0.2-1) mg/dl AST 21 (15-37) U/L ALT 40 (12-78) U/L Alkaline Phosphatase 275 H (45-117) U/L Total Protein 8.3 H (6.4-8.2) gm/dl Albumin 3.6 (3.4-5.0) gm/dl Globulin 4.7 H (2.5-4.0) gm/dl Albumin/Globulin Ratio 0.8 L (0.9-2) Beta-Hydroxybutyric Acd 0.58 (0.2-2.81) mg/dl TSH 2.080 (0.300-4.500) uIu/ml Imaging Data Radiologist's Impression: Radiology results as stated below per my review and the radiologist's interpretation: XR chest 1V portable CLINICAL HISTORY: weakness COMPARISON STUDY: 06/04/2018 FINDINGS: The heart remains enlarged. There is mild vascular/interstitial prominence without evidence of overt failure. There are no pleural effusions. There is no focal pulmonary consolidation.[ IMPRESSION: Cardiac megaly. No evidence of focal pulmonary consolidation. ACT 112: Negative or not required by law. Electronically signed by: Warner Sanchez M.D. 05/22/2019 11:13 AM ECG Data Attestation: I personally reviewed and interpreted this ECG as follows: Indication: + other (Pre-op) Rate (beats per minute): 84 Rhythm: + sinus rhythm ECG ST segments: no ST depression and no ST elevation ECG Findings: + Other (QTc of 437); no PACs and no PVCs Blood Pressure Blood Pressure Findings: Elevated blood pressure Blood Pressure Disposition: further management by hospitalist [facility] Narrative This is a 38-year-old male who presents emergency department complaining of blocked AV fistula. I did discuss the case with the vascular surgeon on-call as well as the patient's tire molder. The patient's tire molder is asking the patient be admitted to the hospital. I then discussed the case with the spitalist service who did agree to meet the patient. Patient creatinine is grossly elevated however his potassium is within normal limits. Patient was in agreement with the treatment plan. Impression & Plan ESRD (end stage renal disease), Dialysis AV fistula malfunction Discharge Plan Visit Data *Final* Discharge Date/Time: 05/22/19 14:36 Chief Complaint: Illness ED Provider: Zachary Eckert Discharge Problem: ESRD (end stage renal disease), Dialysis AV fistula malfunction Patient Disposition: Still a Patient Condition: Good Discharge Instructions Interventions: ED Discharge Assessment Last Done: 05/22/19 14:36 Discharge Problem: Dialysis AV fistula malfunction Qualifiers: Encounter type: initial encounter Qualified Code(s): T82.590A - Other mechanical complication of surgically created arteriovenous fistula, initial encounter The scribe's documentation has been prepared under my direction and personally reviewed by me in its entirety. I confirm that the note above accurately reflects all work, treatment, procedures, and medical decision making performed by me.
--- NOTE | 2019-05-22 14:59 | Anesthesiology Consultation ---
Date of Service May 22, 2019 Assessment & Plan ASA ASA3 Proposed Anesthesia Anesthesia Type: MAC Risk / Benefits Reviewed With: PT / POA / Parent / Guardian, Accepts Plan and Informed Consent Obtained History Surgery Operation Date: 05/22/19 13:15 Proposed Procedures p Left Arm Thrombectomy Arteriovenous Fistula - Poli Combs MD Height/Weight Height: 5 ft 6 in Weight: 125.1 kg Allergies Allergy/AdvReac Type Severity Reaction Status Date / Time lisinopril Allergy Intermediate COUGH Verified 05/22/19 13:11 Medications Home Medications Medication Instructions Recorded Confirmed Last Taken levothyroxine 50 mcg capsule 50 mcg PO HS 09/26/18 05/22/19 05/22/19 ergocalciferol (vitamin D2) 50,000 unit PO TH 10/09/18 05/22/19 05/21/19 [Vitamin D2] bumetanide 2 mg tablet 2 mg PO BID #180 tab 11/27/18 05/22/19 05/21/19 insulin glargine U-300 conc 300 20 unit SUBCUT HS #9 ml 02/20/19 05/22/19 0 05/21/19 unit/mL (1.5 mL) subcutaneous pen 40 units pantoprazole 40 mg PO QAM 03/02/19 05/22/19 05/22/19 gabapentin 300 mg capsule 600 mg PO BID cap 03/10/19 05/22/19 05/22/19 carvedilol 12.5 mg PO BID 04/03/19 05/22/19 05/22/19 amlodipine 5 mg tablet 5 mg PO DAILY #30 tab 04/07/19 05/22/19 05/04/19 08:00 atorvastatin 80 mg tablet 80 mg PO HS #30 tab 04/27/19 05/22/19 05/21/19 insulin aspart U-100 [Novolog 20 units SQ AC 05/12/19 05/22/19 05/22/19 Flexpen U-100 Insulin] 20 units duloxetine 60 mg capsule,delayed 60 mg PO DAILY #30 cap 05/14/19 05/22/19 Unknown release Active Medications Generic Name Dose Route Start Last Admin Trade Name Freq PRN Reason Stop Dose Admin Dextrose/Sodium Chloride 1,000 mls @ 10 mls/hr 05/22/19 12:30 05/22/19 12:55 D5w And 1/4nss IV 05/23/19 12:29 Not Given .Q24H CHASE NPO Date Last Intake of Fluids: 05/22/19 Time Last Intake of Fluids: 08:00 Date Last Intake of Solids: 05/22/19 Time Last Intake of Solids: 01:30 Past Medical History Medical History Anemia (Chronic) Bilateral swelling of feet (Chronic) Depression (Chronic) 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) Diabetic retinopathy (Chronic) ESRD (end stage renal disease) H/O febrile seizure (Resolved) High cholesterol (Chronic) Hypertension (Chronic) Hypothyroidism (Chronic) Intellectual functioning disability (Chronic) Obesity (Chronic) Type 1 diabetes (Chronic) Venous stasis ulcers of both lower extremities (Resolved) Vitamin D deficiency Exercise / Class Metabolic Activity II 4-5 Yardwork/Stairs/Walk up hill Past Family History Family History Other Cancer Past Surgical History Surgical History H/O detached retina repair S/P arteriovenous (AV) fistula creation Past Anesthesia History No Hx of Anesthesia Complications and No Family Hx of Anesthesia Complications History of PONV No Hx of PONV and No Hx of Motion Sickness Social History Smoking Status: Never smoker Do You Dip or Chew Tobacco: No Hx Alcohol Use: No Alcohol type: beer alcohol intake frequency: holidays/special occasions only Hx Substance Use: No substance use type: does not use Review of Systems denies fever/cough/ colds/ chest pain/ SOB/ AMELIA denies [place]/CVA/Seizure Physical Exam Vital Signs Last Vital Signs Temp 36.8 C 05/22/19 10:55 Pulse 77 05/22/19 14:36 Resp 18 05/22/19 14:36 BP 140/85 05/22/19 14:36 Pulse Ox 97 05/22/19 14:36 ENMT Mouth: no TMJ abnormality and no dentition abnormality Thyromental Distance: > or= 3.5 Finger Breadths Mallampati Class: II Neck neck extension not limited Respiratory normal respiratory effort; no respiratory distress Auscultation: lungs clear to auscultation bilaterally Cardiovascular Rate/Rhythm: regular rate and regular rhythm Neurologic moves all extremities Psychiatric Orientation: alert and oriented x 3 Testing Laboratory Results 05/22/19 11:20 05/22/19 11:20 05/22/19 14:08 POC Glucose 298 H
[2019-05-22] MEDS ORDERED: CEFAZOLIN 1000MG 1,000 MG/7.5 ML SYR IV SCH (15:00)
[2019-05-22] MEDS ORDERED: CEFAZOLIN 3000MG 72.5 ML IV SCH (15:00)
[2019-05-22] MEDS ORDERED: ATROPINE SULFATE 0.1 MG/ML 10ML SYR IV PRN (15:05)
[2019-05-22] MEDS ORDERED: fentaNYL citrate 100 MCG/2 ML VIAL IV PRN (15:05)
[2019-05-22] MEDS ORDERED: ePHEDrine sulfate 50 MG/ML AMP IV PRN (15:05)
--- NOTE | 2019-05-22 15:29 | Nephrology Consultation ---
Date of Consultation May 22, 2019 Assessment & Plan (1) ESRD needing dialysis: ESRD on HD, admitted with clotted AVF. Electrolyte , respiratory status acceptable. BP fair. Going to OR for declotting, if unsuccessful. may need TDC. --Plan for HD after OR as pts regular schedule, if too late after OR, wit will be OK to do dialysis tomorrow morning.. --ANTHONY 44404 unit x 1 with HD --continue on Renal cap and phos binder. --Left arm nephrology precaution Will follow Thank you for the consult (2) Dialysis AV fistula malfunction: (3) Anemia: (4) Hypertension: (5) Anemia: (6) Type 1 diabetes: History of Present Illness Reason for Consultation: ESRD on HD, AVF malfunction Attending Physician: Poli Combs MD History of Present Illness [place] has ESRD secondary to Type I DM, HTN, on HD q M/W/ at [facility] dialysis unit. Admitted with AVF malfunction. He had regular HD on Saturday and Saturday. Today did not receive his HD as the AV fistula was found to be clotted with no thrill or bruit on exam and send to ER. AVF was placed in June, at [place], and TDC was removed on 05/12/19. CXR was unremarkable, Electrolyte , BP acceptable. Currently he denies any SOB, CP. No fevers/chill/nausea/vomiting/diarrhea or constipation. He still makes urine, on Bumex. He is waiting to go to OR. Allergies Allergy/AdvReac Type Severity Reaction Status Date / Time lisinopril Allergy Intermediate COUGH Verified 05/22/19 13:11 Home Medications Home Medications Medication Instructions Recorded Confirmed Type levothyroxine 50 mcg capsule 50 mcg PO HS 09/26/18 05/22/19 History ergocalciferol (vitamin D2) 50,000 unit PO TH 10/09/18 05/22/19 History [Vitamin D2] bumetanide 2 mg tablet 2 mg PO BID #180 tab 11/27/18 05/22/19 Rx insulin glargine U-300 conc 300 20 unit SUBCUT HS #9 ml 02/20/19 05/22/19 Rx unit/mL (1.5 mL) subcutaneous pen pantoprazole 40 mg PO QAM 03/02/19 05/22/19 History gabapentin 300 mg capsule 600 mg PO BID cap 03/10/19 05/22/19 History carvedilol 12.5 mg PO BID 04/03/19 05/22/19 History amlodipine 5 mg tablet 5 mg PO DAILY #30 tab 04/07/19 05/22/19 Rx atorvastatin 80 mg tablet 80 mg PO HS #30 tab 04/27/19 05/22/19 Rx insulin aspart U-100 [Novolog 20 units SQ AC 05/12/19 05/22/19 History Flexpen U-100 Insulin] duloxetine 60 mg capsule,delayed 60 mg PO DAILY #30 cap 05/14/19 05/22/19 Rx release Patient History Medical History Anemia (Chronic) Bilateral swelling of feet (Chronic) Depression (Chronic) 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) Diabetic retinopathy (Chronic) ESRD (end stage renal disease) H/O febrile seizure (Resolved) High cholesterol (Chronic) Hypertension (Chronic) Hypothyroidism (Chronic) Intellectual functioning disability (Chronic) Obesity (Chronic) Type 1 diabetes (Chronic) Venous stasis ulcers of both lower extremities (Resolved) Vitamin D deficiency Surgical History H/O detached retina repair S/P arteriovenous (AV) fistula creation Family History Other Cancer Social History Preferred Language: Kyrgyz Communication Ability: Effective Visual Impairment: No Limitations Hearing Ability: Normal Audio Visual Aide Required: No Beliefs That Will Affect Care: None marital status: Single Current Living Situation: Family Current Living Situation Comment: lives with brother 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" Other Information That Helps Us Care for You: No Feels Safe at Home: Yes Safety Concerns: Feels Safe At This Time Smoking Status: Never smoker Do You Dip or Chew Tobacco: No ; Second Hand Exposure: No ; Tobacco Cessation Education Requested by Patient: No Hx Alcohol Use: No Hx Substance Use: No Dental Care, Regularly: No Physical Activity Frequency: Does not Exercise Seatbelt Use: always Sunscreen Use: No Review of Systems Review of Systems: All systems reviewed & are unremarkable except as noted in HPI & below Physical Exam Constitutional: WD/WN, vitals as above well developed and well nourished; no acute distress Eyes: PERRL, conjunctivae normal, anicteric sclerae ENMT: external ear and nose normal, oropharynx normal Ears: no hearing impairment Neck: trachea midline Respiratory: normal respiratory effort, lungs clear to auscultation no cough Auscultation: no crackles, no rales and no wheezes Cardiovascular: RRR, no murmur, no edema Extremities: + vascular access device (left BC AVF with no thrill or bruit) Gastrointestinal (Abdomen): normal bowel sounds, soft, nontender, no hepatosplenomegaly Percussion/Palpation: abdomen nontender, no guarding and abdomen not rigid Musculoskeletal: Extremities: extremities normal to inspection Gait: normal gait Skin: no rashes, warm and dry Neurologic: moves all extremities and awake Psychiatric: A+Ox3, euthymic affect Results & Data Vital Signs (Past 12 Hours) Vital Signs Temp Pulse Pulse Resp BP BP Pulse Ox 05/22/19 14:36 77 18 140/85 97 05/22/19 12:45 78 16 149/90 H 99 05/22/19 11:22 98 05/22/19 10:55 36.8 C 85 18 178/98 H 97 PG Care Time/CCT Total # of Minutes Spent Total Time Spent with Patient: Total time spent is greater than 50% in coordination of care (as documented) at patient's floor/unit and/or counseling patient: Coding Level of Care Code 61387 Inpt Consult Level 5 Diagnoses ESRD needing dialysis N18.6; Z99.2 Dialysis AV fistula malfunction T82.590A Encounter type: initial encounter Anemia D64.9 Anemia type: unspecified type Hypertension I10 Hypertension type: unspecified Anemia N18.6; D63.1; Z99.2 Anemia type: due to chronic kidney disease Chronic kidney disease stage: on chronic dialysis Type 1 diabetes E10.9 (1) Dialysis AV fistula malfunction Encounter type: initial encounter Qualified Code(s): T82.590A - Other mechanical complication of surgically created arteriovenous fistula, initial encounter (2) Anemia Anemia type: unspecified type Qualified Code(s): D64.9 - Anemia, unspecified (3) Hypertension Hypertension type: unspecified Qualified Code(s): I10 - Essential (primary) hypertension (4) Anemia Anemia type: due to chronic kidney disease Chronic kidney disease stage: on chronic dialysis Qualified Code(s): N18.6 - End stage renal disease; D63.1 - Anemia in chronic kidney disease; Z99.2 - Dependence on renal dialysis
[2019-05-22] MEDS ORDERED: HEPARIN SOD (PORCINE) 1000 UNIT/ML 10 ML VIAL ONE (15:48)
[2019-05-22] MEDS ORDERED: SURGICEL ABSORB HEMOSTAT 2IN X 14IN TOP ONE (17:22)
--- NOTE | 2019-05-22 17:37 | Post Operative Brief Note ---
Immediate Post Op Note v1 Date of Surgery May 22, 2019 Pre & Post Diagnosis Operation Date: 05/22/19 13:15 Pre-Op Diagnosis: non-functioning Left upper extremity AV fistula Post-Op Diagnosis: non-functioning Left upper extremity AV fistula I identified the patient and participated in the time-out.: Yes Procedure Operation Date: 05/22/19 13:15 Actual Procedures p Open Left Arm Thrombectomy Arteriovenous Fistula, fistulogram and stenting of Ateriovenous fistula (Left) - Poli Combs MD Surgeon Poli Combs MD Film Printer MD Luis Eduardo Estimated Blood Loss 75 Findings Consistent with Post-Op Diagnosis Anesthesia Type MAC Complications none Disposition Accompanied Patient To Recovery: No Disposition: Recovery Room
--- NOTE | 2019-05-22 17:43 | Operative Report ---
Post Operative Report Pre & Post Diagnosis Operation Date: 05/22/19 13:15 Pre-Op Diagnosis: non-functioning Left upper extremity AV fistula Post-Op Diagnosis: non-functioning Left upper extremity AV fistula I identified the patient and participated in the time-out.: Yes Procedure Operation Date: 05/22/19 13:15 Actual Procedures p Open Left Arm Thrombectomy Arteriovenous Fistula, fistulogram and stenting of Ateriovenous fistula (Left) - Poli Combs MD Surgeon Gwendolyn Combs MD Senior Support Engineer MD Luis Eduardo Estimated Blood Loss 75 Findings Consistent with Post-Op Diagnosis Specimens none Anesthesia Type RN Sedation Complications none Disposition Accompanied Patient To Recovery: No Disposition: Recovery Room Indications 38-year-old gentleman with end-stage renal disease with dialysis through a left AV fistula presents with acute fistula thrombosis. It was recommended he undergo a thrombectomy of his AV fistula as well as a fistulogram and possible interventions. I have discussed the risks options and benefits of the procedure with the patient. The patient understands the risks options and benefits and agrees to the procedure. Description of Procedure Mr. Snell was brought to the operating room and placed on the angios table in the supine position with the left arm out. Prior to this duration of conscious sedation by nurse embroidery patternmaker the patient intended procedure and laterality were confirmed. The patient's left arm was prepped and draped in standard sterile fashion after which a surgical timeout was performed and the patient identified. A 4 cm incision was made overlying the patient's AV fistula just proximal to his antecubital fossa and the subcutaneous tissues dissected down to the fistula graft. The graft was then isolated clamp placed distally. 11 blade scalpel was then used to make a venotomy transversely. Next Fair amount a clot was expressed to the venotomy, then a 4 Memo catheter passed the proximal directi on inflated and withdrawn with expression of venous clot. Memo catheter was passed several times prior to backbleeding. There is noted to be a fair amount of intimal hyperplasia within the graft at this location, and the decision was made to stent the region after venotomy closure. The venotomy was then closed with running 5-0 Prolene suture. Then created over the region fistula just proximal to the bicep and soft tissue dissected down to the brachial vein, and the vein isolated. A micropuncture sheath was then inserted and after fistulogram then up-sized to a 6Fr sheath for intended passage of a stent, however attempts at passing an 035 guidewire through the vein and the fistula site were without success due to a large branch of the vein. Decision was then made to insert a second micropuncture sheath at the graft at the antecubital fossa and pass a wire and a antegrade direction to the proximal isolated region of the brachial vein the right puncture sheath was removed at the proximal region of the brachial vein and venotomy created and hemostats used to graft the 0.018 wire that was in the lumen and withdrawn out of the vein at this location. a 6-0 Sheath was then passed over this wire and into the lumen. An 035 guidewire was then placed in a larua fashion through the proximal 6 Swiss sheath and able to be navigated into the fistula and coursed through the brachial artery. The distal 5-0 micropuncture sheath and 0/018 wire were then removed. Next a 6x 2.5 Viabond stent was then passed over the wire and navigated to the region of fistula at the previously closed venotomy near the antecubital fossa and deployed. Fistulagram through the 6-0 sheath demonstrated improved flow and visually at the venotomy site there was hemostasis after a second 6-0 Prolene was used to close a noted area of leak. The proximal 6-0 sheath was removed and venotomy closed with interrupted 6-0 Prolene suture. and hemostasis attained. A micropuncture sheath was then re-inserted at the AC incision site proximal to the stent and completion fistulogram performed showing a single large branch off the brachial near the proximal incision that when isolated and occluded improved fistula flow with maintaining appropriate arm outflow. This branch was then ligated with 2-0 silk suture. Hemostasis was attained at both incision sites and the sub-cutaneous tissues closed using 3-0 Vicryl suture in a running fashion. The skin at both sites was closed with 4-0 running Vicryl subcuticular stitch, and Dermabond applied to both incisions. Following the procedure the postoperative recovery area in good condition. There were no complications. Patient tolerated procedure well. At the completion of the case all sponge and estimate counts were correct. Dr. Combs was present scrubbed for entirety procedure. Angiography time 5.1 minutes. 101 mGy. I attest to the content of the Intraoperative Record and any orders documented therein. Any exceptions are noted below.
--- NOTE | 2019-05-22 18:01 | Anesthesiology Progress Note ---
Date of Service May 22, 2019 Anesthesia Post Procedure Vital Signs Vital Signs: Temp Pulse Pulse Resp BP BP Pulse Ox 05/22/19 15:18 36.4 C L 85 20 149/81 H 100 05/22/19 14:36 77 18 140/85 97 05/22/19 12:45 78 16 149/90 H 99 05/22/19 11:22 98 05/22/19 10:55 36.8 C 85 18 178/98 H 97 Pain Intensity Left Arm: Pain Intensity: 3 Transfer of Care Handoff Completed per policy Notes Mental Status: alert / awake / arousable and participated in evaluation Patient Amnestic to Procedure: Yes Nausea / Vomiting: adequately controlled Pain: adequately controlled Airway Patency, RR, SpO2: stable & adequate BP & HR: stable & adequate Hydration State: stable & adequate Anesthetic Complications: no major complications apparent and Pt Satisfied with anesthetic care
[2019-05-22] MEDS ORDERED: ONDANSETRON INJ 2 MG/ML 2 ML VIAL IV PRN (19:41)
[2019-05-22] MEDS ORDERED: DEXTROSE 50% 50 ML SYRINGE IV PRN (19:41)
[2019-05-22] MEDS ORDERED: CARBOHYDRATES FOR HYPOGLYCEMIA PO PRN (19:41)
[2019-05-22] MEDS ORDERED: GLUCOSE 10 TABS/TUBE PO PRN (19:41)
[2019-05-22] MEDS ORDERED: DOCUSATE SODIUM 100 MG CAP PO PRN (19:41)
[2019-05-22] MEDS ORDERED: GLUCOSE 40% GEL 15 GM TUBE PO PRN (19:41)
[2019-05-22] MEDS ORDERED: GLUCAGON FOR INJ 1 MG VIAL SQ PRN (19:41)
[2019-05-22 20:54] LABS: Magnesium 2.1 mg/dl (1.8-2.4); Phosphorus 5.7 mg/dl (2.5-4.9)
[2019-05-22] MEDS ORDERED: INSULIN ASPART 100 UNITS/ML 3 ML PEN SC SCH (21:00)
[2019-05-22] MEDS ORDERED: INSULIN GLARGINE SOLOSTAR 100 UNITS/ML 3 ML PEN SC SCH (21:00)
[2019-05-22] MEDS: carvediloL 12.5 MG TAB PO SCH (21:04)
[2019-05-22] MEDS: GABAPENTIN 600 MG TAB PO SCH (21:05)
[2019-05-22] MEDS: ATORVASTATIN 40 MG TAB PO SCH (21:05)
[2019-05-22] MEDS: OXYCODONE/ACETAMINOPHEN 5mg/325mg TAB PO PRN (21:50)
[2019-05-22 22:12] LABS: Appearance Urine Cloudy (Clear); Bilirubin Urine Negative (Negative); Blood Urine Trace (Negative); Color Urine Yellow; Glucose Urine UA Negative (Negative); Ketones Urine Negative (Negative); Leukocyte Esterase Urine Negative (Negative); Nitrite Urine Negative (Negative); Protein Urine 3+ (Negative); RBC Urine Automated 0-4 /hpf (0-4); Specific Gravity Urine 1.025 (1.000-1.030); Urobilinogen Urine Negative (Negative)
[2019-05-22 22:39] LABS: Bacteria Urine Automated 1+ (Negative)
[2019-05-22] MEDS ORDERED: Nursing to Pharmacy Communication ONE (23:55)
[2019-05-23] MEDS: INSULIN ASPART 100 UNITS/ML 3 ML PEN SC SCH ×5 (06:22→21:48)
[2019-05-23] MEDS ORDERED: LEVOTHYROXINE SODIUM 50 MCG TABLET PO SCH (06:30)
[2019-05-23 08:04] LABS: Basophils # (auto) 0.01 K/uL (0-0.2); Basophils % (auto) 0.2 %; Eosinophils # (auto) 0.18 K/uL (0-0.5); Eosinophils % (auto) 2.9 %; Hematocrit (blood only) 27.7 % (42-52); Hemoglobin 9.6 g/dL (14.0-18.0); Immature Granulocytes # (auto) 0.01 K/uL (0.00-0.02); Immature Granulocytes % (auto) 0.2 %; Lymphocytes # (auto) 1.56 K/uL (1.2-3.4); Lymphocytes % (auto) 25.2 %; Mean Corpuscular Hemoglobin 29.6 pg (25-34); Mean Corpuscular Hgb Conc 34.7 g/dL (32-36); Mean Corpuscular Volume 85.5 fL (80-100); Mean Platelet Volume 9.5 fL (7.4-10.4); Monocytes # (auto) 0.46 K/uL (0.11-0.59); Monocytes % (auto) 7.4 %; Neutrophils # (auto) 3.96 K/uL (1.4-6.5); Neutrophils % (auto) 64.1 %; Platelet Count 212 K/uL (130-400); RDW Coefficient of Variation 14.3 % (11.5-14.5); RDW Standard Deviation 44.8 fL (36.4-46.3); Red Blood Count 3.24 M/uL (4.7-6.1); White Blood Count 6.18 K/uL (4.8-10.8)
--- NOTE | 2019-05-23 08:17 | Surgery Progress Note ---
Date of Service May 23, 2019 Assessment & Plan (1) Hemodialysis AV fistula thrombosis: Fistula is functioning. Thrill is felt in fistula in area of puncture sites. Would try to have dialysis today. If they can't access the fistula then a permcath may be needed on Saturday. Subjective Patient awake and alert. Slight discomfort in arm Physical Exam Physical Exam: Incisions dry and clean Thrill is present between the two incisions in the area of his puncture sites Constitutional: WD/WN, vitals as above Results & Data Vital Signs (Past 12 Hours) Vital Signs Temp Pulse Pulse Resp BP Pulse Ox 05/23/19 08:00 82 05/23/19 07:41 36.6 C 80 18 132/73 100 05/23/19 05:07 36.5 C 75 20 105/65 98 05/22/19 23:58 36.6 C 82 18 119/75 91 05/22/19 23:42 87 05/22/19 21:45 36.8 C 84 16 120/73 98 05/22/19 20:37 89 05/22/19 20:25 36.7 C 85 18 149/78 H 97
[2019-05-23 08:24] LABS: Prothrombin Time 10.4 Seconds (9.0-12.0)
[2019-05-23] MEDS ORDERED: Nursing to Pharmacy Communication ONE (08:33)
[2019-05-23 08:52] LABS: Hepatitis B Surface Ab Quant < 3.10 mIU/mL (>or=10mIU/mL Immune); Hepatitis B Surface Antibody Non-Immune
[2019-05-23 08:57] LABS: BUN Creatinine Ratio 11.2 (10-20); Calcium 9.3 mg/dl (8.5-10.1); Creatinine Clr Calc Pharmacy 17.5 ml/min; Est GFR (African American) 10.3; Est GFR (Non-African American) 8.9; Potassium 4.9 mmol/L (3.5-5.1)
[2019-05-23] MEDS ORDERED: DULOXETINE HCL 60 MG CAP PO SCH (09:00)
[2019-05-23] MEDS ORDERED: PANTOprazole 40 MG TAB PO SCH (09:00)
[2019-05-23] MEDS ORDERED: AMLODIPINE BESYLATE 5 MG TAB PO SCH (09:00)
[2019-05-23 09:02] LABS: Hepatitis B Surface Antigen Neg (Neg)
[2019-05-23] MEDS: carvediloL 12.5 MG TAB PO SCH ×2 (09:35→20:53)
[2019-05-23] MEDS: BUMETANIDE 1 MG TAB PO SCH ×2 (09:36→20:54)
[2019-05-23] MEDS: GABAPENTIN 600 MG TAB PO SCH ×2 (09:36→20:55)
--- NOTE | 2019-05-23 10:17 | Nephrology Progress Note ---
Date of Service May 23, 2019 Assessment & Plan (1) ESRD needing dialysis: ESRD on HD, admitted with clotted AVF. s/p thrombectomy yesterday. Adequate thrill and bruit. Unable to cannulate yesterday. Orders for HD today have been entered into the EMR and reviewed with the HD nurse. Vascular surgery following. If AVF is able to be used safely and effectively today, the patient may be discharged from a nephrology standpoint. (2) Dialysis AV fistula malfunction: Vascular surgery following. (3) Anemia: ANTHONY 68712 unit x 1 with HD (4) Hypertension: (5) Type 1 diabetes: Subjective Unable to cannulate AVF yesterday. Adequate thrill and bruit today. [place]ura states that he feels well. He insists that he is going home today with or without dialysis. Dr. Combs evaluated AVF this morning. Slight discomfort in arm. Swelling has improved slightly. No dyspnea or orthopnea. Review of Systems Review of Systems: All systems reviewed & are unremarkable except as noted in HPI & below Physical Exam Constitutional: well developed; no acute distress Eyes: no scleral abnormality and no corneal abnormality ENMT: Mouth: no oral mucosal abnormality and oral mucous membranes not dry Neck: normal visual inspection and trachea midline Respiratory: normal respiratory effort Auscultation: lungs clear to auscultation bilaterally Cardiovascular: Rate/Rhythm: regular rate Heart Sounds: normal S1 and normal S2 Extremities: + edema and + AV fistula Musculoskeletal: Extremities: no cyanosis and no clubbing Skin: normal turgor; no lesions Neurologic: Motor/Sensory: no tremor and no asterixis Psychiatric: Orientation: alert and oriented x 3 Results & Data Vital Signs (Past 12 Hours) Vital Signs Temp Pulse Pulse Resp BP Pulse Ox 05/23/19 08:00 82 05/23/19 07:41 36.6 C 80 18 132/73 100 05/23/19 05:07 36.5 C 75 20 105/65 98 05/22/19 23:58 36.6 C 82 18 119/75 91 05/22/19 23:42 87 Laboratory Results Laboratory Results - last 24 hr 05/22/19 05/22/19 05/22/19 11:20 11:20 14:08 WBC 4.60 L RBC 3.37 L Hgb 9.9 L Hct 27.9 L MCV 82.8 MCH 29.4 MCHC 35.5 RDW Std Deviation 41.8 RDW Coeff of Yuki 13.7 Plt Count 182 MPV 9.9 Immature Gran % (Auto) 0.2 Neut % (Auto) 52.6 Lymph % (Auto) 33.7 [place] % (Auto) 9.8 Eos % (Auto) 3.5 Baso % (Auto) 0.2 Immature Gran # (Auto) 0.01 Neut # (Auto) 2.42 Lymph # (Auto) 1.55 [place] # (Auto) 0.45 Eos # (Auto) 0.16 Baso # (Auto) 0.01 PT INR Sodium 133 L Potassium 4.8 Chloride 95 L Carbon Dioxide 30 Anion Gap 7.0 BUN 73 H Creatinine 5.89 H* Est Cr Clr Drug Dosing 21.5 Est GFR ( Amer) 13.0 Est GFR (Non-Af Amer) 11.2 BUN/Creatinine Ratio 12.5 Glucose 400 H* POC Glucose 298 H Calcium 9.5 Phosphorus Magnesium Total Bilirubin 0.6 AST 21 ALT 40 Alkaline Phosphatase 275 H Total Protein 8.3 H Albumin 3.6 Globulin 4.7 H Albumin/Globulin Ratio 0.8 L Beta-Hydroxybutyric Acd 0.58 TSH 2.080 Urine Color Urine Appearance Urine pH Ur Specific [place] Urine Protein Urine Glucose (UA) Urine Ketones Urine Blood Urine Nitrite Urine Bilirubin Urine Urobilinogen Ur Leukocyte Esterase Urine WBC (Auto) Urine RBC (Auto) U Hyaline Cast (Auto) U Epithel Cells (Auto) Urine Bacteria (Auto) Urine Yeast Hep Bs Antigen Hep Bs Antibody Hep Bs Antibody, Quant 05/22/19 05/22/19 05/22/19 15:05 17:47 19:52 WBC RBC Hgb Hct MCV MCH MCHC RDW Std Deviation RDW Coeff of [place] Plt Count MPV Immature Gran % (Auto) Neut % (Auto) Lymph % (Auto) [place] % (Auto) Eos % (Auto) Baso % (Auto) Immature Gran # (Auto) Neut # (Auto) Lymph # (Auto) [place] # (Auto) Eos # (Auto) Baso # (Auto) PT INR Sodium Potassium Chloride Carbon Dioxide Anion Gap BUN Creatinine Est Cr Clr Drug Dosing Est GFR ( Amer) Est GFR (Non-Af Amer) BUN/Creatinine Ratio Glucose POC Glucose 150 H 134 H Calcium Phosphorus 5.7 H Magnesium 2.1 Total Bilirubin AST ALT Alkaline Phosphatase Total Protein Albumin Globulin Albumin/Globulin Ratio Beta-Hydroxybutyric Acd TSH Urine Color Urine Appearance Urine pH Ur Specific [place] Urine Protein Urine Glucose (UA) Urine Ketones Urine Blood Urine Nitrite Urine Bilirubin Urine Urobilinogen Ur Leukocyte Esterase Urine WBC (Auto) Urine RBC (Auto) U Hyaline Cast (Auto) U Epithel Cells (Auto) Urine Bacteria (Auto) Urine Yeast Hep Bs Antigen Hep Bs Antibody Hep Bs Antibody, Quant 05/22/19 05/22/19 05/23/19 20:23 21:23 06:05 WBC RBC Hgb Hct MCV MCH MCHC RDW Std Deviation RDW Coeff of [place] Plt Count MPV Immature Gran % (Auto) Neut % (Auto) Lymph % (Auto) [place] % (Auto) Eos % (Auto) Baso % (Auto) Immature Gran # (Auto) Neut # (Auto) Lymph # (Auto) [place] # (Auto) Eos # (Auto) Baso # (Auto) PT INR Sodium Potassium Chloride Carbon Dioxide Anion Gap BUN Creatinine Est Cr Clr Drug Dosing Est GFR ( Amer) Est GFR (Non-Af Amer) BUN/Creatinine Ratio Glucose POC Glucose 104 H 219 H Calcium Phosphorus Magnesium Total Bilirubin AST ALT Alkaline Phosphatase Total Protein Albumin Globulin Albumin/Globulin Ratio Beta-Hydroxybutyric Acd TSH Urine Color Yellow Urine Appearance Cloudy A Urine pH 5.0 Ur Specific [place] 1.025 Urine Protein 3+ H Urine Glucose (UA) Negative Urine Ketones Negative Urine Blood Trace H Urine Nitrite Negative Urine Bilirubin Negative Urine Urobilinogen Negative Ur Leukocyte Esterase Negative Urine WBC (Auto) 1-5 Urine RBC (Auto) 0-4 U Hyaline Cast (Auto) 1-5 U Epithel Cells (Auto) 10-20 H Urine Bacteria (Auto) 1+ H Urine Yeast Not Reportable Hep Bs Antigen Hep Bs Antibody Hep Bs Antibody, Quant 05/23/19 05/23/19 05/23/19 07:21 07:43 07:43 WBC 6.18 RBC 3.24 L Hgb 9.6 L Hct 27.7 L MCV 85.5 MCH 29.6 MCHC 34.7 RDW Std Deviation 44.8 RDW Coeff of [place] 14.3 Plt Count 212 MPV 9.5 Immature Gran % (Auto) 0.2 Neut % (Auto) 64.1 Lymph % (Auto) 25.2 [place] % (Auto) 7.4 Eos % (Auto) 2.9 Baso % (Auto) 0.2 Immature Gran # (Auto) 0.01 Neut # (Auto) 3.96 Lymph # (Auto) 1.56 [place] # (Auto) 0.46 Eos # (Auto) 0.18 Baso # (Auto) 0.01 PT INR Sodium 134 L Potassium 4.9 Chloride 97 L Carbon Dioxide 29 Anion Gap 9.0 BUN 78 H Creatinine 7.14 H* D Est Cr Clr Drug Dosing 17.5 Est GFR ( Amer) 10.3 Est GFR (Non-Af Amer) 8.9 BUN/Creatinine Ratio 11.2 Glucose 195 H POC Glucose 215 H Calcium 9.3 Phosphorus Magnesium Total Bilirubin AST ALT Alkaline Phosphatase Total Protein Albumin Globulin Albumin/Globulin Ratio Beta-Hydroxybutyric Acd TSH Urine Color Urine Appearance Urine pH Ur Specific [place] Urine Protein Urine Glucose (UA) Urine Ketones Urine Blood Urine Nitrite Urine Bilirubin Urine Urobilinogen Ur Leukocyte Esterase Urine WBC (Auto) Urine RBC (Auto) U Hyaline Cast (Auto) U Epithel Cells (Auto) Urine Bacteria (Auto) Urine Yeast Hep Bs Antigen Hep Bs Antibody Hep Bs Antibody, Quant 05/23/19 05/23/19 07:43 07:43 WBC RBC Hgb Hct MCV MCH MCHC RDW Std Deviation RDW Coeff of [place] Plt Count MPV Immature Gran % (Auto) Neut % (Auto) Lymph % (Auto) [place] % (Auto) Eos % (Auto) Baso % (Auto) Immature Gran # (Auto) Neut # (Auto) Lymph # (Auto) [place] # (Auto) Eos # (Auto) Baso # (Auto) PT 10.4 INR 1.0 Sodium Potassium Chloride Carbon Dioxide Anion Gap BUN Creatinine Est Cr Clr Drug Dosing Est GFR ( Amer) Est GFR (Non-Af Amer) BUN/Creatinine Ratio Glucose POC Glucose Calcium Phosphorus Magnesium Total Bilirubin AST ALT Alkaline Phosphatase Total Protein Albumin Globulin Albumin/Globulin Ratio Beta-Hydroxybutyric Acd TSH Urine Color Urine Appearance Urine pH Ur Specific [place] Urine Protein Urine Glucose (UA) Urine Ketones Urine Blood Urine Nitrite Urine Bilirubin Urine Urobilinogen Ur Leukocyte Esterase Urine WBC (Auto) Urine RBC (Auto) U Hyaline Cast (Auto) U Epithel Cells (Auto) Urine Bacteria (Auto) Urine Yeast Hep Bs Antigen Neg Hep Bs Antibody Non-Immune Hep Bs Antibody, Quant < 3.10 L PG Care Time/CCT Total # of Minutes Spent Total Time Spent with Patient: Total time spent is greater than 50% in coordination of care (as documented) at patient's floor/unit and/or counseling patient: Coding Level of Care Code 17419 Subseq Hosp Care Lvl 3 Diagnoses ESRD needing dialysis N18.6; Z99.2 Dialysis AV fistula malfunction T82.590A Encounter type: initial encounter Anemia D64.9 Anemia type: unspecified type Hypertension I10 Hypertension type: unspecified Type 1 diabetes E10.9 (1) Dialysis AV fistula malfunction Encounter type: initial encounter Qualified Code(s): T82.590A - Other mechanical complication of surgically created arteriovenous fistula, initial encounter (2) Anemia Anemia type: unspecified type Qualified Code(s): D64.9 - Anemia, unspecified (3) Hypertension Hypertension type: unspecified Qualified Code(s): I10 - Essential (primary) hypertension
--- NOTE | 2019-05-23 17:00 | Discharge Summary ---
Date of Service May 23, 2019 Admission HPI Per Admitting Provider Ventura Munguia is a 38yo C male with history of ESRD secondary to Type I DM, HTN, on HD q M/W/F presenting with LUE AV fistula malfunction. Patient had the fistula placed in June, at [facility]. He has never had an issue with his acces before. He received HD on Saturday and Saturday, states that they had to cannulate lower on his fistula each time. Today no thrill detected, patient did not receive his HD. He denies complaints at this time. No fevers/chill/nausea/vomiting/diarrhea or constipation. He denies SOB. He still makes urine. Patient reports falling in the shower on Saturday and bumping the area of his fistula which may have caused the clot. ER Course: No treatments administered Admission Exam Per Admitting Provider General: patient resting comfortably, NAD, non-toxic in appearance, AA&O x 4 Skin: warm, dry, flaking, intact HEENT: NC/AT, PERRL, EOMI, anicteric sclera, conjunctiva without injection, external ear normal to inspection and nontender, nares patent, moist mucus membranes, dentition intact, no oropharyngeal lesions, neck supple, trachea midline, no LAD, no thyromegaly, no JVD Heart: +S1/S2, regular, no m/r/g Lungs: equal air entry bilaterally, no rales/rhonchi/wheezes Abd: +BS, soft, NT/ND, no masses/organomegaly/ascites Ext: warm, 2+ pulses in UE/LE bilaterally, no clubbing/cyanosis or edema, LUE AV fistula in place, no thrill appreciated Neuro: nonfocal, patient AA&O x 4, speech intact, no facial droop, moving all extremities on command with equal strength 5/5 Principal Diagnosis AV fistula throbosis Discharge Exam Constitutional WD/WN, vitals as above Eyes PERRL, conjunctivae normal, anicteric sclerae ENMT external ear and nose normal, oropharynx normal Neck trachea midline, no thyromegaly Respiratory normal respiratory effort, lungs clear to auscultation Cardiovascular RRR, no murmur, no edema Gastrointestinal (Abdomen) normal bowel sounds, soft, nontender, no hepatosplenomegaly Musculoskeletal no cyanosis or clubbing, extremities motor strength 5/5 Skin no rashes, warm and dry LUE AV fistula in place, thrill appreciated Neurologic PERRL, EOMI, accommodation nl, no face palsy, no dysarthria Discharge Data Allergies Allergy/AdvReac Type Severity Reaction Status Date / Time lisinopril Allergy Intermediate COUGH Verified 05/22/19 13:11 Consultations 05/22/19 12:08 Consult Nephrology Stat Consult Vascular Surgery Stat 05/22/19 19:41 Consult Nephrology Routine Consult Vascular Surgery Routine 05/23/19 15:17 Consult Dining Service Supervisor Routine Procedures Performed Operation Date: 05/22/19 13:15 Actual Procedures p Open Left Arm Thrombectomy Arteriovenous Fistula, fistulogram and stenting of Ateriovenous fistula (Left) - Poli Combs MD Ordered Studies 05/22/19 12:11 EV angio arteriovenous shunt Stat 05/23/19 15:40 US point of care ultrasound Urgent XR chest 1V portable CLINICAL HISTORY: weakness COMPARISON STUDY: 06/04/2018 FINDINGS: The heart remains enlarged. There is mild vascular/interstitial prominence without evidence of overt failure. There are no pleural effusions. There is no focal pulmonary consolidation.[ IMPRESSION: Cardiac megaly. No evidence of focal pulmonary consolidation Hospital Course (1) Hemodialysis AV fistula thrombosis: Admitted on 05/22/2019 with difficulty accessing left upper extremity AV fistula, no thrill or pulsation. 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 following successful dialysis (2) GERD (gastroesophageal reflux disease): (3) Central venous catheter in place: (4) Fluid overload: (5) Anemia: (6) Dialysis AV fistula malfunction: (7) ESRD needing dialysis: (8) Acute hyperglycemia: (9) Vitamin D deficiency: (10) ESRD (end stage renal disease): (11) Chronic venous insufficiency: Total Time Total Time Spent Total Time Spent (In Minutes): Greater than 30 minutes Total Time Includes: Examination of the Patient, Discharge Planning, Medication Reconciliation and Communication With Other Providers Discharge Plan Discharge Items Patient Disposition: Home - Self-Care Reason For Visit: MALFUNCTIONING AV FISTULA Discharge Diagnosis: AV fistula thrombus Condition on Discharge: Good Activity: Resume your previous activity Non-emergency contact: Primary Care Provider and Manager Reimbursement Call non-emergency contact if: you have any medication questions Follow-up/Referrals: Maki Peterson MD [Primary Care Provider] - Diet: Dialysis Renal Addtl Attending Provider Instructions: You were admitted for evaluation of AV fistula malfunction. You were seen by vascular surgeon he did a procedure to remove a clot and place a stent. We tried dialysis, but we were unable to access the fistula. This is concerning for additional clots. A temporary catheter was placed and dialysis was completed. We are discharging home with plan to come back on Saturday with Dr. Combs. The plan is to have a permacath placed. Pending Studies at Discharge: No Stand-Alone Forms: My [facility] [employer], Smoking Cessation Medications and DC Order Prescriptions: Continued levothyroxine 50 mcg capsule 50 mcg PO HS RF: 0 bumetanide 2 mg tablet 2 mg PO BID Qty: 180 RF: 3 Toujeo SoloStar U-300 Insulin 300 unit/mL (1.5 mL) insulin pen 20 unit subcut HS Qty: 9 RF: 5 amlodipine 5 mg tablet 5 mg PO DAILY Qty: 30 RF: 5 atorvastatin [Lipitor] 80 mg tablet 80 mg PO HS Qty: 30 RF: 5 duloxetine 60 mg capsule,delayed release(DR/EC) 60 mg PO DAILY Qty: 30 RF: 5 gabapentin 300 mg capsule 600 mg PO BID RF: 0 ergocalciferol (vitamin D2) [Vitamin D2] 50,000 unit capsule 50,000 unit PO TH RF: 0 pantoprazole 40 mg tablet,delayed release (DR/EC) 40 mg PO QAM RF: 0 carvedilol 12.5 mg tablet 12.5 mg PO BID RF: 0 insulin aspart U-100 [Novolog Flexpen U-100 Insulin] 100 unit/mL (3 mL) insulin pen 20 units SQ AC RF: 0 Discharge Orders: Discharge Order (Routine); Ordered 05/23/19 Ordered By: Gianfranco Stevenson Admission Data Admit Date/Time: 05/22/19 14:56 Attending Provider: Maureen Allan Admit Provider: Esther Cassidy Primary Care Provider: Maki Peterson Other Providers: Adrianne Kennedy ; Poli Combs ; Analisa Melissa Other Interventions: Discharge Summary Assessment (RN) Last Done: 05/24/19 04:45 DC Date/Time DO NOT enter until pt leaves facility: 05/24/19 06:00 Supervising Physician Co-Signing Physician Notes Patient seen and examined with PGY-3 Dr. Jesse Stevenson. Agree with history, exam findings, assessment and plan of care as outlined. In brief, Mr. Snell is a 38 year old male with history of diabetes, ESRD on HD MWF, anemia, hypothyroidism admitted due to a thrombosed AV fistula. Had not received HD since Saturday. Asymptomatic. He underwent thombectomy and stenting of the fistula with Dr. Combs on the day of admission. Unfortunately, on Saturday, our dialysis lab was not able to access his fistula. Critical care team placed a temporary dialysis catheter after which dialysis was performed. Patient will return on Saturday for permacath placement with Dr. Combs. Other chronic issues stable and home medications continued. I personally spent 45 minutes discharge planning/coordinating care for this patient. Resident Activity Tracking Resident Involvement: Resident Care Provided Care Provided: Adult Hospital Medicine
--- NOTE | 2019-05-23 17:14 | Procedure Note ---
Procedure Note Date of Service May 23, 2019 Procedure: Inserting ultrasound-guided dialysis catheter insertion Commercial Real Estate Assistant: Dr. Analisa Melissa Indication: End-stage renal disease, AV fistula not working Consent: Signed by patient and verified with timeout prior to procedure. Anesthesia: 1% lidocaine without epinephrine local. Procedure: Consent was verified and timeout performed. Appropriate imaging studies were reviewed prior to the procedure. Under aseptic and sterile condition, left IJ vein was accessed under direct u ltrasound guidance. Guidewire was confirmed to be within the lumen of vein with the help of ultrasound. Catheter was introduced via Seldinger technique. Guide a wire was removed. Good non-pulsatile blood flow was appreciated from all the ports. The catheter was placed at 20 cm and sutured in place. BioPatch was applied to the catheter and a sterile Tegaderm dressing was applied over the catheter with careful attention to sterility. Lung sliding was appreciated post procedure with the help ultrasound. Postprocedure chest x-ray showed no evidence of pneumothorax and good position of the left Shiley catheter. Patient tolerated the procedure well. Blood loss: Less than 2 cc Complications: None Coding CPT Codes Tubes, Drains, and Vasc Access - Tubes, Drains, and Vasc Access: [id number] Insertion of cannula for hemodialysis ([id number]) Tubes, Drains, and Vasc Access - Tubes, Drains, and Vasc Access: [id number] Ultrasound Guidance For Vascular ([id number]) [facility] [place] Procedure Codes (Charges) Tubes, Drains, and Vasc Access Procedure 1: Tubes, Drains, and Vasc Access: [id number] Insertion of cannula for hemodialysis Procedure 2: Tubes, Drains, and Vasc Access: [id number] Ultrasound Guidance For Vascular
--- NOTE | 2019-05-23 17:14 | Critical Care Consultation ---
Date of Consultation May 23, 2019 Assessment & Plan (1) Hemodialysis AV fistula thrombosis: --End-stage renal disease with AV fistula not working Patient not able to get dialysis since Saturday. Nephrology thinks that he should get dialysis today or else he might need emergent dialysis by Saturday. Discussed with nephrology that if the dialysis catheter is placed in today he will get dialysis today and probably go home later. Patient is not on any blood thinners. Platelets are within normal limits. Risk and benefits of the procedure were explained to the patient. All the questions were answered in depth. Nurse was at bedside to sign the consent. On the ultrasound the right-sided IJ is very thin most likely because of previous history of permacath placement. We will put a left-sided dual-lumen dialysis catheter. I have personally spent 30 minutes of critical care time in the direct management of this patient. This is a life/limb threatening event. This includes time spent evaluating patient, direct bedside care, chart review, placing orders, interpretation of diagnostic studies, discussion with consultants, patient, and family members, as well as other required patient management activities. This time is exclusive of all separately billable procedures, and teaching time and separate from and in addition to any other critical care service time. Please note the above document was generated using voice recognition software. It may contain grammatical, syntax or spelling errors. (2) Obesity (BMI 30.0-34.9): (3) Type 1 diabetes: History of Present Illness Attending Physician: Maureen Allan DO History of Present Illness 38-year-old patient with end-stage renal disease secondary type 1 diabetes, hypertension presented because of malfunction of the AV fistula left upper extremity. Patient went to the OR and he was supposed to get dialysis today but unfortunately it was still not working. ICU was called as the patient needed dialysis catheter to be placed and so that he can get dialyzed as his last dialysis was Saturday. At the time of examination patient denies any complaints. Denies any chest pain, no shortness of breath, no headache, no nausea, no vomiting. No dizziness, no palpitations. Allergies Allergy/AdvReac Type Severity Reaction Status Date / Time lisinopril Allergy Intermediate COUGH Verified 05/22/19 13:11 Home Medications Home Medications Medication Instructions Recorded Confirmed Type levothyroxine 50 mcg capsule 50 mcg PO HS 09/26/18 05/22/19 History ergocalciferol (vitamin D2) 50,000 unit PO TH 10/09/18 05/22/19 History [Vitamin D2] bumetanide 2 mg tablet 2 mg PO BID #180 tab 11/27/18 05/22/19 Rx insulin glargine U-300 conc 300 20 unit SUBCUT HS #9 ml 02/20/19 05/22/19 Rx unit/mL (1.5 mL) subcutaneous pen pantoprazole 40 mg PO QAM 03/02/19 05/22/19 History gabapentin 300 mg capsule 600 mg PO BID cap 03/10/19 05/22/19 History carvedilol 12.5 mg PO BID 04/03/19 05/22/19 History amlodipine 5 mg tablet 5 mg PO DAILY #30 tab 04/07/19 05/22/19 Rx atorvastatin 80 mg tablet 80 mg PO HS #30 tab 04/27/19 05/22/19 Rx insulin aspart U-100 [Novolog 20 units SQ AC 05/12/19 05/22/19 History Flexpen U-100 Insulin] duloxetine 60 mg capsule,delayed 60 mg PO DAILY #30 cap 05/14/19 05/22/19 Rx release Patient History Medical History Anemia (Chronic) Bilateral swelling of feet (Chronic) Depression (Chronic) Diabetic peripheral neuropathy associated with type 1 diabetes mellitus (Ch r[place]) Diabetic retinopathy (Chronic) ESRD (end stage renal disease) H/O febrile seizure (Resolved) High cholesterol (Chronic) Hypertension (Chronic) Hypothyroidism (Chronic) Intellectual functioning disability (Chronic) Obesity (Chronic) Type 1 diabetes (Chronic) Venous stasis ulcers of both lower extremities (Resolved) Vitamin D deficiency Surgical History H/O detached retina repair S/P arteriovenous (AV) fistula creation Family History Other Cancer Social History Preferred Language: Faroese Communication Ability: Effective Visual Impairment: No Limitations Hearing Ability: Normal 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 Beliefs That Will Affect Care: None marital status: Single Current Living Situation: Family Current Living Situation Comment: lives with brother 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" Other Information That Helps Us Care for You: No Feels Safe at Home: Yes Safety Concerns: Feels Safe At This Time Smoking Status: Never smoker Do You Dip or Chew Tobacco: No ; Second Hand Exposure: No ; Tobacco Cessation Education Requested by Patient: No Hx Alcohol Use: No Hx Substance Use: No Dental Care, Regularly: No Physical Activity Frequency: Does not Exercise Seatbelt Use: always Sunscreen Use: No Review of Systems Review of Systems: All systems reviewed & are unremarkable except as noted in HPI & below Physical Exam Physical Exam: Constitutional: No acute distress HEENT: EOMI, PERRLA, Mallampati 3, thick neck Respiratory system: Good air entry bilaterally, no wheeze, no rhonchi, minimal crackles bilateral lower lobes CVS: S1-S2 positive, no murmurs or gallops Abdomen: Soft, nontender, nondistended, positive bowel sounds x4 Extremities: +2 pulses bilaterally radialis/ dorsalis pedis, no cyanosis, no edema, left arm AV fistula Neuro: Awake alert oriented x3 Psych: Normal mood and affect G/U: No Toribio Skin: no rashes, warm and dry Lymphatic: no cervical or axillary lymphadenopathy Results & Data ([facility]) Vital Signs (Past 12 Hours) Vital Signs Temp Pulse Pulse Pulse Resp BP Pulse Ox 05/23/19 13:13 36.8 C 80 05/23/19 11:59 36.6 C 84 18 130/83 97 05/23/19 08:00 82 05/23/19 07:41 36.6 C 80 18 132/73 100 05/23/19 07:43 05/23/19 07:43 Coding Level of Care Code Critical Care 1st 30-74 mins Diagnoses Hemodialysis AV fistula thrombosis T82.868A Obesity (BMI 30.0-34.9) E66.9 Type 1 diabetes E10.9 Time Spent (min) 30
--- NOTE | 2019-05-23 18:12 | XRay Report ---
SINGLE VIEW CHEST CLINICAL HISTORY: Central venous catheter placement. FINDINGS: An AP, portable, upright chest radiograph is compared to study dated 05/22/2019 and correlat ed with chest CT dated 06/04/2017. The examination is degraded by portable technique and patient rotat ion. A left internal jugular central venous catheter has been placed. The tip projects over the cavoa trial junction. The heart is enlarged. The pulmonary vasculature is noncongested. No airspace consoli dation or large pleural effusion is identified. No pneumothorax is seen. The bony thorax is grossly i ntact. IMPRESSION: 1. A left internal jugular central venous catheter has been placed as above. No pneumothorax is seen post procedure. 2. Cardiomegaly without radiographic evidence of congestive failure. ACT 112: Negative or not required by law. Electronically signed by: Aaron Mcguire M.D. 05/23/2019 6:11 PM
[2019-05-23] MEDS: OXYCODONE/ACETAMINOPHEN 5mg/325mg TAB PO PRN (20:07)
[2019-05-23] MEDS: ATORVASTATIN 40 MG TAB PO SCH (20:55)
[2019-05-23] MEDS ORDERED: INSULIN GLARGINE SOLOSTAR 100 UNITS/ML 3 ML PEN SQ SCH (21:00)
== END 2019-05-24 06:00 | disposition home or self-care (01) | DRG 252 ==
LOC: ED 10:49 → OR 14:36 → 2N 14:56 → SUATTDRO 14:56 → 2N 19:34

== ENCOUNTER 2020-02-15 06:35 | Observation (INO) ==
--- NOTE | 2020-02-15 07:03 | Emergency Department Note ---
History of Present Illness General Chief complaint: Line Placement Stated complaint: Needs dialysis access Time Seen by Provider: 02/15/20 06:56 Source: patient and EMS Mode of arrival: EMS Limitations: no limitations History of Present Illness This patient is a 39-year-old male who comes in after a clotted dialysis catheter. He receives dialysis on Saturday and on Saturday they noticed it was very sluggish and were only able to do a small amount of dialysis. Today he had no thrill or bruit so they sent him here. He was Covid tested about 2 weeks ago was negative is had no Covid-like symptoms. Dr. Combs has put his fistula in as well as catheters. He feels fine except for feeling a little bit sluggish. No chest pain or shortness of breath or fever chills no known exposure to Covid . no cough no shortness of breath or body aches. Home Medications Home Medications Medication Instructions Recorded Confirmed Type calcium acetate 667 mg tablet 667 mg PO .COMPLEX tab 07/14/19 02/15/20 History atorvastatin 80 mg tablet 80 mg PO HS #30 tab 08/21/19 02/15/20 Rx pantoprazole 40 mg tablet,delayed 40 mg PO QAM #90 tab 08/21/19 02/15/20 Rx release OneTouch Delica Lancets 33 gauge #400 ea NS 10/16/19 02/15/20 Rx bumetanide 2 mg tablet See Rx Instructions .ROUTE 10/26/19 02/15/20 Rx .COMPLEX #270 tab aspirin 81 mg tablet,delayed 81 mg PO DAILY #90 tab 11/22/19 02/15/20 Rx release levothyroxine 50 mcg tablet 50 mcg PO DAILY #30 tab 12/03/19 02/15/20 Rx carvedilol 12.5 mg tablet 12.5 mg PO BID #180 tab 01/08/20 02/15/20 Rx duloxetine 60 mg capsule,delayed 60 mg PO DAILY #30 cap 01/11/20 02/15/20 Rx release blood sugar diagnostic #400 ea 01/29/20 02/15/20 Rx blood-glucose meter #1 ea 01/29/20 02/15/20 Rx insulin aspart U-100 100 unit/mL 300 unit SQ DAILY #90 syr 01/29/20 02/15/20 Rx (3 mL) subcutaneous pen insulin detemir U-100 100 unit/mL 30 unit SQ HS #9 syr 01/29/20 02/15/20 Rx (3 mL) subcutaneous pen pen needle, diabetic 29 gauge x #400 ea 01/29/20 02/15/20 Rx 1/2" gabapentin 300 mg capsule 600 mg PO BID #120 cap 02/04/20 02/15/20 Rx Allergies Allergy/AdvReac Type Severity Reaction Status Date / Time lisinopril AdvReac Intermediate COUGH Verified 02/15/20 07:28 Past Med/Surg History Medical History Anemia Chronic venous insufficiency Depression Diabetic peripheral neuropathy associated with type 1 diabetes mellitus Diabetic retinopathy Erectile dysfunction ESRD (end stage renal disease) requiring hemodialysis. MWF at [facility]. Family history of premature coronary artery disease GERD (gastroesophageal reflux disease) H/O febrile seizure as a child (every year until he was 11 years old) no problems since. High cholesterol Hypertension Hypothyroidism Obesity Port-A-Cath in place chest area Type 1 diabetes Vitamin D deficiency Surgical History H/O detached retina repair History of esophagogastroduodenoscopy (EGD) S/P arteriovenous (AV) fistula creation Family History Mother Diabetes Coronary heart disease Hypertension Father Coronary heart disease Hypertension Brother Coronary heart disease Kidney disease Uncle Colorectal cancer Grandmother Diabetes Aunt Diabetes Unknown Dyslipidemia Other Cancer No family history of adverse response to anesthesia Social History Smoking Status: Never smoker Second Hand Exposure: No; Hx Alcohol Use: No Hx Substance Use: No Preferred Language: Cook Islander Communication Ability: Effective Visual Impairment: No Limitations Hearing Ability: Normal 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 Beliefs That Will Affect Care: None marital status: Single Current Living Situation: Family Current Living Situation Comment: lives with brother 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" Feels Safe at Home: Yes Dental Care, Regularly: No Physical Activity Frequency: Does not Exercise Seatbelt Use: always Sunscreen Use: No Assistive Devices: None Review of Systems A total of 10 systems reviewed and were otherwise negative Physical Exam Vital Signs Vital Signs - 24 hr 02/15/20 06:39 02/15/20 07:03 02/15/20 07:08 Temperature 36.6 C Temperature Source Oral Pulse Rate 87 83 Pulse Rate [Right Finger] Pulse Rate from SpO2 Sensor 83 Pulse Rhythm [Right Finger] Pulse Strength [Right Finger] Respiratory Rate 20 13 Respiratory Effort / Characteristics Non-Labored Spontaneous Respiratory Depth Normal Respiratory Pattern Blood Pressure 155/93 H 161/86 H Blood Pressure [Right Arm] Blood Pressure Mean 113 106 Blood Pressure Mean [Right Arm] Blood Pressure Position [Right Arm] Pulse Oximetry 99 100 100 Oxygen Delivery Method Room Air Room Air Oxygen Flow Rate Sepsis New/Unexplained Change in Mental Status N/A Sepsis Action Taken by Nursing No Action Required End Tidal CO2 (18-54mmHg) 02/15/20 07:09 02/15/20 07:48 02/15/20 07:49 Temperature Temperature Source Pulse Rate 82 85 85 Pulse Rate [Right Finger] Pulse Rate from SpO2 Sensor 83 85 Pulse Rhythm [Right Finger] Pulse Strength [Right Finger] Respiratory Rate 12 18 20 Respiratory Effort / Characteristics Respiratory Depth Respiratory Pattern Blood Pressure 156/94 H Blood Pressure [Right Arm] Blood Pressure Mean 127 Blood Pressure Mean [Right Arm] Blood Pressure Position [Right Arm] Pulse Oximetry 99 99 Oxygen Delivery Method Oxygen Flow Rate Sepsis New/Unexplained Change in Mental Status Sepsis Action Taken by Nursing End Tidal CO2 (18-54mmHg) 02/15/20 08:00 02/15/20 08:30 02/15/20 09:15 Temperature Temperature Source Pulse Rate 83 82 86 Pulse Rate [Right Finger] Pulse Rate from SpO2 Sensor 83 82 86 Pulse Rhythm [Right Finger] Pulse Strength [Right Finger] Respiratory Rate 15 15 13 Respiratory Effort / Characteristics Respiratory Depth Respiratory Pattern Blood Pressure 155/92 H 149/88 H Blood Pressure [Right Arm] Blood Pressure Mean 117 113 Blood Pressure Mean [Right Arm] Blood Pressure Position [Right Arm] Pulse Oximetry 100 97 100 Oxygen Delivery Method Oxygen Flow Rate Sepsis New/Unexplained Change in Mental Status Sepsis Action Taken by Nursing End Tidal CO2 (18-54mmHg) 02/15/20 09:16 02/15/20 09:30 02/15/20 09:31 Temperature Temperature Source Pulse Rate 84 86 86 Pulse Rate [Right Finger] Pulse Rate from SpO2 Sensor 84 86 86 Pulse Rhythm [Right Finger] Pulse Strength [Right Finger] Respiratory Rate 14 12 12 Respiratory Effort / Characteristics Respiratory Depth Respiratory Pattern Blood Pressure 163/98 H Blood Pressure [Right Arm] Blood Pressure Mean 131 Blood Pressure Mean [Right Arm] Blood Pressure Position [Right Arm] Pulse Oximetry 99 99 99 Oxygen Delivery Method Oxygen Flow Rate Sepsis New/Unexplained Change in Mental Status Sepsis Action Taken by Nursing End Tidal CO2 (18-54mmHg) 02/15/20 10:17 02/15/20 10:45 02/15/20 10:50 Temperature 36.6 C Temperature Source Oral Pulse Rate 93 H 89 Pulse Rate [Right Finger] 90 Pulse Rate from SpO2 Sensor Pulse Rhythm [Right Finger] Regular Pulse Strength [Right Finger] Normal Respiratory Rate 20 15 15 Respiratory Effort / Characteristics Non-Labored Spontaneous Non-Labored Non-Labored Respiratory Depth Normal Normal Normal Respiratory Pattern Regular Regular Blood Pressure Blood Pressure [Right Arm] 165/89 H 172/103 H 180/96 H Blood Pressure Mean Blood Pressure Mean [Right Arm] 114 Blood Pressure Position [Right Arm] Lying Pulse Oximetry 94 99 99 Oxygen Delivery Method Room Air Oxymask Oxymask Oxygen Flow Rate 4 4 Sepsis New/Unexplained Change in Mental Status Sepsis Action Taken by Nursing End Tidal CO2 (18-54mmHg) 27 26 02/15/20 10:55 02/15/20 11:00 02/15/20 11:05 Temperature Temperature Source Pulse Rate 82 83 84 Pulse Rate [Right Finger] Pulse Rate from SpO2 Sensor Pulse Rhythm [Right Finger] Pulse Strength [Right Finger] Respiratory Rate 15 16 16 Respiratory Effort / Characteristics Non-Labored Non-Labored Non-Labored Respiratory Depth Normal Normal Normal Respiratory Pattern Regular Regular Regular Blood Pressure Blood Pressure [Right Arm] 161/88 H 154/98 H 161/90 H Blood Pressure Mean Blood Pressure Mean [Right Arm] Blood Pressure Position [Right Arm] Pulse Oximetry 96 98 97 Oxygen Delivery Method Oxymask Oxymask Oxymask Oxygen Flow Rate 4 4 4 Sepsis New/Unexplained Change in Mental Status Sepsis Action Taken by Nursing End Tidal CO2 (18-54mmHg) 29 32 34 02/15/20 11:10 02/15/20 11:15 02/15/20 11:20 Temperature Temperature Source Pulse Rate 87 83 87 Pulse Rate [Right Finger] Pulse Rate from SpO2 Sensor Pulse Rhythm [Right Finger] Pulse Strength [Right Finger] Respiratory Rate 16 16 16 Respiratory Effort / Characteristics Non-Labored Non-Labored Non-Labored Respiratory Depth Normal Normal Normal Respiratory Pattern Regular Regular Regular Blood Pressure Blood Pressure [Right Arm] 161/90 H 160/89 H 161/90 H Blood Pressure Mean Blood Pressure Mean [Right Arm] Blood Pressure Position [Right Arm] Pulse Oximetry 100 98 100 Oxygen Delivery Method Oxymask Oxymask Oxymask Oxygen Flow Rate 4 4 4 Sepsis New/Unexplained Change in Mental Status Sepsis Action Taken by Nursing End Tidal CO2 (18-54mmHg) 38 27 30 02/15/20 11:25 02/15/20 11:29 02/15/20 11:34 Temperature Temperature Source Pulse Rate 85 82 82 Pulse Rate [Right Finger] Pulse Rate from SpO2 Sensor Pulse Rhythm [Right Finger] Pulse Strength [Right Finger] Respiratory Rate 16 15 16 Respiratory Effort / Characteristics Non-Labored Non-Labored Non-Labored Respiratory Depth Normal Normal Normal Respiratory Pattern Regular Regular Regular Blood Pressure Blood Pressure [Right Arm] 159/88 H 161/90 H 161/90 H Blood Pressure Mean Blood Pressure Mean [Right Arm] Blood Pressure Position [Right Arm] Pulse Oximetry 96 95 95 Oxygen Delivery Method Oxymask Room Air Room Air Oxygen Flow Rate 4 Sepsis New/Unexplained Change in Mental Status Sepsis Action Taken by Nursing End Tidal CO2 (18-54mmHg) 30 02/15/20 11:45 02/15/20 12:15 02/15/20 13:00 Temperature 36.8 C 36.6 C Temperature Source Oral Oral Pulse Rate Pulse Rate [Right Finger] 87 85 84 Pulse Rate from SpO2 Sensor Pulse Rhythm [Right Finger] Regular Regular Pulse Strength [Right Finger] Normal Normal Respiratory Rate 18 18 18 Respiratory Effort / Characteristics Non-Labored Spontaneous Non-Labored Spontaneous Non-Labored Spontaneous Respiratory Depth Normal Normal Normal Respiratory Pattern Regular Regular Regular Blood Pressure Blood Pressure [Right Arm] 205/117 H 175/100 H 174/97 H Blood Pressure Mean Blood Pressure Mean [Right Arm] 146 125 122 Blood Pressure Position [Right Arm] Semi-fowlers Sitting Sitting Pulse Oximetry 97 96 96 Oxygen Delivery Method Room Air Room Air Room Air Oxygen Flow Rate Sepsis New/Unexplained Change in Mental Status Sepsis Action Taken by Nursing End Tidal CO2 (18-54mmHg) 02/15/20 13:36 02/15/20 14:00 Temperature 36.6 C Temperature Source Oral Pulse Rate Pulse Rate [Right Finger] 88 88 Pulse Rate from SpO2 Sensor Pulse Rhythm [Right Finger] Regular Pulse Strength [Right Finger] Normal Respiratory Rate 20 18 Respiratory Effort / Characteristics Non-Labored Spontaneous Non-Labored Spontaneous Respiratory Depth Normal Normal Respiratory Pattern Regular Regular Blood Pressure Blood Pressure [Right Arm] 170/83 H 170/83 H Blood Pressure Mean Blood Pressure Mean [Right Arm] 112 112 Blood Pressure Position [Right Arm] Sitting Pulse Oximetry 94 96 Oxygen Delivery Method Room Air Room Air Oxygen Flow Rate Sepsis New/Unexplained Change in Mental Status Sepsis Action Taken by Nursing End Tidal CO2 (18-54mmHg) General: Well developed well nourished in no acute distress, breathing comfortably on room air. Normal speech HEENT: Normal cephalic atraumatic. Pupils are equal round and reactive to light. Extraocular movements are intact. Oropharynx is pink with moist mucous membranes. No swelling of the mouth lips or tongue. Neck: Supple with a midline trachea. No meningeal signs or stiffness, no JVD or bruits. No Stridor. Chest: Clear to auscultation bilaterally. No wheezes or rhonchi. No increased work of breathing. Heart: Regular rate and rhythm without murmurs or gallops. Abdomen: Soft nontender, nondistended without rebound guarding or rigidity. Extremities: No cyanosis clubbing or edema. No calf tenderness or assymetry. He has a fistula in the left arm there is no thrill or bruit. The left arm is well-perfused appearing Spine/Back. Non tender to palpation. No CVA tenderness Skin: Good turgor without rashes. Neurologic exam: Cranial nerves two through 12 are intact. Motor and sensation are intact and symmetrical throughout. Course Administered Medications Cefazolin Sodium (Ancef 3000mg) 72.5 mls @ 130 mls/hr IV PREOP [facility]; Protocol Stop: 02/15/20 18:00 Last Admin: 02/15/20 10: Dose: 130 mls/hr Documented by: [id number] Discontinued Medications Fentanyl Citrate (Fentanyl Citrate 100 Mcg/2 Ml Vial) 50 mcg IV ONCE ONE Stop: 02/15/20 10:57 Last Admin: 02/15/20 11:22 Dose: 25 mcg Documented by: [id number] Admin: 02/15/20 11:16 Dose: 50 mcg Documented by: [id number] Admin: 02/15/20 11:02 Dose: 50 mcg Documented by: [id number] Admin: 02/15/20 10:57 Dose: 50 mcg Documented by: [id number] Heparin Sodium (Porcine) (Heparin Sod 5,000 Unit/0.5 Ml Vial) 16,000 units IV NOW STA Stop: 02/15/20 11:33 Last Admin: 02/15/20 11:33 Dose: 16,000 units Documented by: [id number] Cosigned by: [id number] Insulin Human Regular (Novolin-R Insulin Per Unit Charge) Confirm Administered Dose 20 units .ROUTE .STK-MED ONE Stop: 02/15/20 12:25 Last Admin: 02/15/20 12:28 Dose: 20 units Documented by: [id number] Cosigned by: [id number] Lidocaine HCl (Lidocaine Hcl 1% 20 Ml Vial) 28 ml INFIL NOW ONE Stop: 02/15/20 11:19 Last Admin: 02/15/20 11:18 Dose: 28 ml Documented by: [id number] Midazolam HCl (Midazolam Hcl 1 Mg/Ml 2ml Vial) 2 mg IV ONCE ONE Stop: 02/15/20 10:55 Last Admin: 02/15/20 11:16 Dose: 1 mg Documented by: [id number] Admin: 02/15/20 11:01 Dose: 1 mg Documented by: [id number] Admin: 02/15/20 10:55 Dose: 2 mg Documented by: [id number] Medical Decision Making Differential Diagnosis Dialysis catheter clot, hyperkalemia, fluid overloaded, CHF, electrolyte or metabolic abnormality, Covid Medical Records Attestation: I reviewed the patient's medical records. Home Medications Current Medication List: was personally reviewed by me Laboratory Data Attestation: I reviewed the patient's lab results. Result diagrams: 02/15/20 07:02 02/15/20 07:02 Lab Results 02/15/20 02/15/20 02/15/20 Range/Units 07:02 07:02 07:02 WBC 4.92 (4.8-10.8) K/uL RBC 2.93 L (4.7-6.1) M/uL Hgb 8.8 L (14.0-18.0) g/dL Hct 25.9 L (42-52) % MCV 88.4 (80-100) fL MCH 30.0 (25-34) pg MCHC 34.0 (32-36) g/dL RDW Std Deviation 42.4 (36.4-46.3) fL RDW Coeff of Yuki 13.0 (11.5-14.5) % Plt Count 176 (130-400) K/uL MPV 10.0 (7.4-10.4) fL Immature Gran % (Auto) 0.2 % Neut % (Auto) 60.6 % Lymph % (Auto) 28.5 % Atkinson % (Auto) 7.5 % Eos % (Auto) 3.0 % Baso % (Auto) 0.2 % Neut # (Auto) 2.98 (1.4-6.5) K/uL Lymph # (Auto) 1.40 (1.2-3.4) K/uL Atkinson # (Auto) 0.37 (0.11-0.59) K/uL Eos # (Auto) 0.15 (0-0.5) K/uL Baso # (Auto) 0.01 (0-0.2) K/uL Immature Gran # (Auto) 0.01 (0.00-0.02) K/uL PT Cancelled INR Cancelled APTT Cancelled PTT Ratio Cancelled Sodium 135 L (136-145) mmol/L Potassium 4.3 (3.5-5.1) mmol/L Chloride 102 (98-107) mmol/L Carbon Dioxide 24 (21-32) mmol/L Anion Gap 9.0 (3-11) BUN 118 H (7-18) mg/dl Creatinine 4.85 H* (0.6-1.4) mg/dl Est Cr Clr Drug Dosing 26.1 ml/min Est GFR ( Amer) 16.3 Est GFR (Non-Af Amer) 14.1 BUN/Creatinine Ratio 24.3 H (10-20) Glucose 425 H* (70-99) mg/dl POC Glucose (70-99) mg/dl Calcium 9.1 (8.5-10.1) mg/dl Total Bilirubin 0.4 (0.2-1) mg/dl AST 17 (15-37) U/L ALT 27 (12-78) U/L Alkaline Phosphatase 254 H (45-117) U/L Total Protein 7.5 (6.4-8.2) gm/dl Albumin 3.3 L (3.4-5.0) gm/dl Globulin 4.2 H (2.5-4.0) gm/dl Albumin/Globulin Ratio 0.8 L (0.9-2) Lipase 269 (73-393) U/L Beta-Hydroxybutyric Acd (0.2-2.81) mg/dl COVID-19 Eval Order SARS-CoV-2, RNA, NAAT (NEGATIVE) 02/15/20 02/15/20 02/15/20 Range/Units 07:05 07:05 08:02 WBC (4.8-10.8) K/uL RBC (4.7-6.1) M/uL Hgb (14.0-18.0) g/dL Hct (42-52) % MCV (80-100) fL MCH (25-34) pg MCHC (32-36) g/dL RDW Std Deviation (36.4-46.3) fL RDW Coeff of Yuki (11.5-14.5) % Plt Count (130-400) K/uL MPV (7.4-10.4) fL Immature Gran % (Auto) % Neut % (Auto) % Lymph % (Auto) % Atkinson % (Auto) % Eos % (Auto) % Baso % (Auto) % Neut # (Auto) (1.4-6.5) K/uL Lymph # (Auto) (1.2-3.4) K/uL Atkinson # (Auto) (0.11-0.59) K/uL Eos # (Auto) (0-0.5) K/uL Baso # (Auto) (0-0.2) K/uL Immature Gran # (Auto) (0.00-0.02) K/uL PT 10.3 INR 1.0 APTT 23.7 PTT Ratio 0.8 Sodium (136-145) mmol/L Potassium (3.5-5.1) mmol/L Chloride (98-107) mmol/L Carbon Dioxide (21-32) mmol/L Anion Gap (3-11) BUN (7-18) mg/dl Creatinine (0.6-1.4) mg/dl Est Cr Clr Drug Dosing ml/min Est GFR ( Amer) Est GFR (Non-Af Amer) BUN/Creatinine Ratio (10-20) Glucose (70-99) mg/dl POC Glucose (70-99) mg/dl Calcium (8.5-10.1) mg/dl Total Bilirubin (0.2-1) mg/dl AST (15-37) U/L ALT (12-78) U/L Alkaline Phosphatase (45-117) U/L Total Protein (6.4-8.2) gm/dl Albumin (3.4-5.0) gm/dl Globulin (2.5-4.0) gm/dl Albumin/Globulin Ratio (0.9-2) Lipase (73-393) U/L Beta-Hydroxybutyric Acd (0.2-2.81) mg/dl COVID-19 Eval [email or web address] SARS-CoV-2, RNA, NAAT NEGATIVE (NEGATIVE) 02/15/20 02/15/20 Range/Units 11:47 12:54 WBC (4.8-10.8) K/uL RBC (4.7-6.1) M/uL Hgb (14.0-18.0) g/dL Hct (42-52) % MCV (80-100) fL MCH (25-34) pg MCHC (32-36) g/dL RDW Std Deviation (36.4-46.3) fL RDW Coeff of Yuki (11.5-14.5) % Plt Count (130-400) K/uL MPV (7.4-10.4) fL Immature Gran % (Auto) % Neut % (Auto) % Lymph % (Auto) % Atkinson % (Auto) % Eos % (Auto) % Baso % (Auto) % Neut # (Auto) (1.4-6.5) K/uL Lymph # (Auto) (1.2-3.4) K/uL Atkinson # (Auto) (0.11-0.59) K/uL Eos # (Auto) (0-0.5) K/uL Baso # (Auto) (0-0.2) K/uL Immature Gran # (Auto) (0.00-0.02) K/uL PT INR APTT PTT Ratio Sodium (136-145) mmol/L Potassium (3.5-5.1) mmol/L Chloride (98-107) mmol/L Carbon Dioxide (21-32) mmol/L Anion Gap (3-11) BUN (7-18) mg/dl Creatinine (0.6-1.4) mg/dl Est Cr Clr Drug Dosing ml/min Est GFR ( Amer) Est GFR (Non-Af Amer) BUN/Creatinine Ratio (10-20) Glucose (70-99) mg/dl POC Glucose 580 H* > 600 H* (70-99) mg/dl Calcium (8.5-10.1) mg/dl Total Bilirubin (0.2-1) mg/dl AST (15-37) U/L ALT (12-78) U/L Alkaline Phosphatase (45-117) U/L Total Protein (6.4-8.2) gm/dl Albumin (3.4-5.0) gm/dl Globulin (2.5-4.0) gm/dl Albumin/Globulin Ratio (0.9-2) Lipase (73-393) U/L Beta-Hydroxybutyric Acd (0.2-2.81) mg/dl COVID-19 Eval Order SARS-CoV-2, RNA, NAAT (NEGATIVE) Imaging Data Attestation: I personally reviewed and interpreted this imaging study as follows: My Impression: Chest x-raycardiomegaly but no acute infiltrate failure, pneumothorax. No significant fluid overload seen Radiologist's Impression: XR chest 1V portable CLINICAL HISTORY: Atypical chest pain. COMPARISON STUDY: Chest radiograph May 23, 2019. Chest CT June 04, 2017. FINDINGS: Lung volumes are normal. There is no pneumothorax or pleural effusion. There is no consolidation or evidence for pulmonary edema. Cardiomegaly is unchanged. IMPRESSION: No change in appearance of the chest. Cardiomegaly without evidence for pulmonary edema. ECG Data Attestation: I personally reviewed and interpreted this ECG as follows: Indication: + toxicologic Rate (beats per minute): 83 Rhythm: + normal sinus ECG [place]: + Normal ECG ST segments: + Normal ST segments ECG Findings: no PACs, no PVCs and no Peaked T waves Comparison ECG Date: from (05/22/19) Change: no significant change MDM Narrative This patient comes in as described above. Is placed on a phototypesetting equipment monitor in room C8. He is a dialysis this yellow that has become clotted. He has stable vital signs his lungs are clear. EKG was obtained. IV access was obtained as well as a chest x-ray. I did consult Dr. Combs who knows the patient well. He wants me to keep the patient n.p.o. and do preop Covid testing. He will come in and see the patient in the emergency department and will likely need to go to the OR for declotting of his fistula. The patient was found to have hyperglycemia but is not in DKA. He is resting comfortably does not appear to be acutely fluid overloaded his potassium is not significantly elevated. He will be going to the OR for fistula repair pair or placement of a new catheter Impression & Plan Thrombosis of arteriovenous dialysis fistula, ESRD (end stage renal disease), Acute hyperglycemia, Diabetes Discharge Plan Visit Data Chief Complaint: Line Placement Stated Complaint: Needs dialysis access ED Provider: Guy Covington Discharge Problem: Thrombosis of arteriovenous dialysis fistula, ESRD (end stage renal disease), Acute hyperglycemia, Diabetes Patient Disposition: Still a Patient Discharge Instructions Interventions: ED Discharge Assessment Last Done: 02/15/20 09:51 Discharge Problem: Thrombosis of arteriovenous dialysis fistula Qualifiers: Encounter type: initial encounter Qualified Code(s): T82.868A - Thrombosis due to vascular prosthetic devices, implants and grafts, initial encounter Diabetes Qualifiers: Diabetes mellitus type: type 1 Diabetes mellitus complication status: with kidney complications Diabetes mellitus complication detail: with chronic kidney disease Chronic kidney disease stage: on chronic dialysis Qualified Code(s): E10.22 - Type 1 diabetes mellitus with diabetic chronic kidney disease
[2020-02-15 07:13] LABS: Basophils # (auto) 0.01 K/uL (0-0.2); Basophils % (auto) 0.2 %; Eosinophils # (auto) 0.15 K/uL (0-0.5); Hematocrit (blood only) 25.9 % (42-52); Hemoglobin 8.8 g/dL (14.0-18.0); Immature Granulocytes # (auto) 0.01 K/uL (0.00-0.02); Immature Granulocytes % (auto) 0.2 %; Lymphocytes % (auto) 28.5 %; Mean Corpuscular Volume 88.4 fL (80-100); Monocytes # (auto) 0.37 K/uL (0.11-0.59); Monocytes % (auto) 7.5 %; Neutrophils # (auto) 2.98 K/uL (1.4-6.5); Neutrophils % (auto) 60.6 %; Platelet Count 176 K/uL (130-400); RDW Standard Deviation 42.4 fL (36.4-46.3); Red Blood Count 2.93 M/uL (4.7-6.1); White Blood Count 4.92 K/uL (4.8-10.8)
--- NOTE | 2020-02-15 07:14 | XRay Report ---
XR chest 1V portable CLINICAL HISTORY: Atypical chest pain. COMPARISON STUDY: Chest radiograph May 23, 2019. Chest CT June 04, 2017. FINDINGS: Lung volumes are normal. There is no pneumothorax or pleural effusion. There is no consolid ation or evidence for pulmonary edema. Cardiomegaly is unchanged. IMPRESSION: No change in appearance of the chest. Cardiomegaly without evidence for pulmonary edema. ACT 112: Negative or not required by law. Electronically signed by: Fredy Peterson M.D. 02/15/2020 7:13 AM
[2020-02-15 08:32] LABS: Partial Thromboplastin Ratio 0.8; Partial Thromboplastin Time 23.7 Seconds (21.0-31.0); Prothrombin Time 10.3 Seconds (9.0-12.0)
[2020-02-15 08:36] LABS: Albumin Globulin Ratio 0.8 (0.9-2); Albumin Level 3.3 gm/dl (3.4-5.0); BUN Creatinine Ratio 24.3 (10-20); Bilirubin,Total 0.4 mg/dl (0.2-1); Calcium 9.1 mg/dl (8.5-10.1); Creatinine Clr Calc Pharmacy 26.1 ml/min; Est GFR (African American) 16.3; Est GFR (Non-African American) 14.1; Globulin 4.2 gm/dl (2.5-4.0); Potassium 4.3 mmol/L (3.5-5.1); Total Protein 7.5 gm/dl (6.4-8.2)
--- NOTE | 2020-02-15 08:43 | History & Physical Report ---
Date of Service February 15, 2020 Assessment & Plan (1) Arteriovenous fistula thrombosis: Recommend insertion of permcath. This fistula has clotted a few times and intervened on a few times. He will need a new fistula creation. In the meantime will insert a permcath for dialysis. I have discussed the risks options and benefits of the procedure with the patient. The patient understands the risks options and benefits and agrees to the procedure. History of Present Illness Chief Complaint: Thrombosed left upper arm fistula Primary Care Provider: Maki Peterson MD 38 yo m with hx of ESRD on HD, HTN, DMII, hypothyroidism, venous stasis with a thrombosed LUE AVF noted at HD unit. He underwent previous declotthing earlier this year. Pt states feeling fine otherwise. Pt denies SHELBY, fever, chills, chest pain, SOB, abd pain, N/V, rest pain, claudication, other complaints. Allergies Allergy/AdvReac Type Severity Reaction Status Date / Time lisinopril AdvReac Intermediate COUGH Verified 02/15/20 07:28 Home Medications Home Medications Medication Instructions Recorded Confirmed Type calcium acetate 667 mg tablet 667 mg PO .COMPLEX tab 07/14/19 02/15/20 History atorvastatin 80 mg tablet 80 mg PO HS #30 tab 08/21/19 02/15/20 Rx pantoprazole 40 mg tablet,delayed 40 mg PO QAM #90 tab 08/21/19 02/15/20 Rx release OneTouch Delica Lancets 33 gauge #400 ea NS 10/16/19 02/15/20 Rx bumetanide 2 mg tablet See Rx Instructions .ROUTE 10/26/19 02/15/20 Rx .COMPLEX #270 tab aspirin 81 mg tablet,delayed 81 mg PO DAILY #90 tab 11/22/19 02/15/20 Rx release levothyroxine 50 mcg tablet 50 mcg PO DAILY #30 tab 12/03/19 02/15/20 Rx carvedilol 12.5 mg tablet 12.5 mg PO BID #180 tab 01/08/20 02/15/20 Rx duloxetine 60 mg capsule,delayed 60 mg PO DAILY #30 cap 01/11/20 02/15/20 Rx release blood sugar diagnostic #400 ea 01/29/20 02/15/20 Rx blood-glucose meter #1 ea 01/29/20 02/15/20 Rx insulin aspart U-100 100 unit/mL 300 unit SQ DAILY #90 syr 01/29/20 02/15/20 Rx (3 mL) subcutaneous pen insulin detemir U-100 100 unit/mL 30 unit SQ HS #9 syr 01/29/20 02/15/20 Rx (3 mL) subcutaneous pen pen needle, diabetic 29 gauge x #400 ea 01/29/20 02/15/20 Rx 1/2" gabapentin 300 mg capsule 600 mg PO BID #120 cap 02/04/20 02/15/20 Rx Past Med/Surg History Medical History Anemia Chronic venous insufficiency Depression Diabetic peripheral neuropathy associated with type 1 diabetes mellitus Diabetic retinopathy Erectile dysfunction ESRD (end stage renal disease) requiring hemodialysis. MWF at [facility]. Family history of premature coronary artery disease GERD (gastroesophageal reflux disease) H/O febrile seizure as a child (every year until he was 11 years old) no problems since. High cholesterol Hypertension Hypothyroidism Obesity Port-A-Cath in place chest area Type 1 diabetes Vitamin D deficiency Surgical History H/O detached retina repair History of esophagogastroduodenoscopy (EGD) S/P arteriovenous (AV) fistula creation Family History Mother Diabetes Coronary heart disease Hypertension Father Coronary heart disease Hypertension Brother Coronary heart disease Kidney disease Uncle Colorectal cancer Grandmother Diabetes Aunt Diabetes Unknown Dyslipidemia Other Cancer No family history of adverse response to anesthesia Social History Smoking Status: Never smoker Second Hand Exposure: No; Hx Alcohol Use: No Hx Substance Use: No Preferred Language: Kazakh Communication Ability: Effective Visual Impairment: No Limitations Hearing Ability: Normal 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 Beliefs That Will Affect Care: None marital status: Single Current Living Situation: Family Current Living Situation Comment: lives with brother 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" Feels Safe at Home: Yes Dental Care, Regularly: No Physical Activity Frequency: Does not Exercise Seatbelt Use: always Sunscreen Use: No Assistive Devices: None Review of Systems All systems reviewed & are unremarkable except as noted in HPI & below Physical Exam Constitutional: Respiratory: normal respiratory effort, lungs clear to auscultation Cardiovascular: Rate/Rhythm: regular rate and regular rhythm Extremities: normal capillary refill, + edema and + AV fistula no thrill, firm. Gastrointestinal (Abdomen): normal bowel sounds, soft, nontender, no hepatosplenomegaly Musculoskeletal: no cyanosis or clubbing, extremities motor strength 5/5 Neurologic: moves all extremities and awake; no focal motor deficits and not confused Psychiatric: A+Ox3, euthymic affect Results & Data ([facility]) Vital Signs (Past 12 Hours) Vital Signs Temp Pulse Resp BP Pulse Ox 02/15/20 08:00 83 15 100 02/15/20 07:49 85 20 156/94 H 99 02/15/20 07:48 85 18 02/15/20 07:09 82 12 99 02/15/20 07:08 100 02/15/20 07:03 83 13 161/86 H 100 02/15/20 06:39 36.6 C 87 20 155/93 H 99
[2020-02-15] MEDS ORDERED: ceFAZolin 2000MG 2,000 MG/15 ML SYR IV SCH (09:55)
[2020-02-15] MEDS ORDERED: D5W AND 1/4NSS 1,000 ML IV SCH (10:00)
[2020-02-15] MEDS ORDERED: LIDOCAINE HCL 1% 20 ML VIAL ONE (10:21)
[2020-02-15] MEDS ORDERED: HEPARIN SOD (PORCINE) 5,000 UNITS/ML VIAL ONE (10:22)
[2020-02-15] MEDS ORDERED: MIDAZOLAM HCL 1 MG/ML 2ML VIAL ONE ×3 (10:29→11:08)
[2020-02-15] MEDS ORDERED: fentaNYL citrate 100 MCG/2 ML VIAL ONE ×2 (10:29→11:08)
--- NOTE | 2020-02-15 10:34 | Pre Anesthesia Assessment ---
Date of Service February 15, 2020 Pre Sedation Assessment Vital Signs Temp Pulse Pulse Resp BP BP Pulse Ox 02/15/20 10:17 36.6 C 90 20 165/89 H 94 02/15/20 09:31 86 12 99 02/15/20 09:30 86 12 163/98 H 99 02/15/20 09:16 84 14 99 02/15/20 09:15 86 13 149/88 H 100 02/15/20 08:30 82 15 155/92 H 97 02/15/20 08:00 83 15 100 02/15/20 07:49 85 20 156/94 H 99 02/15/20 07:48 85 18 02/15/20 07:09 82 12 99 02/15/20 07:08 100 02/15/20 07:03 83 13 161/86 H 100 02/15/20 06:39 36.6 C 87 20 155/93 H 99 Cardiovascular RRR, no murmur, no edema Respiratory normal respiratory effort, lungs clear to auscultation Pre-Sedation Airway Assessment Smoking Status: Never smoker Hx Sleep Apnea: No Short, Thick Neck: No Thyromental Distance: > or= 3.5 Finger Breadths Oral Cavity: + WNL Mallampati Class: II ASA: ASA3 NPO Status Date of Last Intake of Fluids: 02/15/20 Time of Last Intake of Fluids: 06:00 Date of Last Intake of Solid Food: 02/14/20 Time of Last Intake of Solid Foods: 18:00 Procedure Planning Contraindications for Sedation: none Current Medications Reviewed: Yes Notes The planned sedation has been discussed with the patient. Informed Consent was obtained. I have identified the patient, determined the appropriateness of mazin tion and have assessed the patient immediately prior to the procedure. All medicine(s) and interventions are by my order.
[2020-02-15] MEDS: MIDAZOLAM HCL 1 MG/ML 2ML VIAL IV ONE ×3 (10:55→11:16)
[2020-02-15] MEDS: fentaNYL citrate 100 MCG/2 ML VIAL IV ONE ×4 (10:57→11:22)
[2020-02-15] MEDS ORDERED: LIDOCAINE HCL 1% 20 ML VIAL INFIL ONE (11:18)
[2020-02-15] MEDS ORDERED: HEPARIN SOD 5,000 UNIT/0.5 ML VIAL IV STA (11:32)
--- NOTE | 2020-02-15 11:35 | Operative Report ---
Post Operative Report Pre & Post Diagnosis Operation Date: 02/15/20 09:55 Pre-Op Diagnosis: Thrombosed Fistula Post-Op Diagnosis: Thrombosed Fistula I identified the patient and participated in the time-out.: Yes Procedure Operation Date: 02/15/20 09:55 Actual Procedures p attempted right internal jugular vein cannulation, Perm Catheter Placement, Left Internal Jugular Approach, Ultrasound for Localization of right and left Internal Jugular Vein, Fluoroscopy for Positioning, Moderate Sedation from 1050- 1134(Right) - Poli Comsb MD Surgeon Poli Combs MD Certified Pedorthotist none Estimated Blood Loss 5 Findings Consistent with Post-Op Diagnosis Specimens none Anesthesia Type RN Sedation Complications none Disposition Accompanied Patient To Recovery: Yes Disposition: Recovery Room Indications This is a 39-year-old gentleman who has multiple interventions of his left upper arm fistula including interposition grafting and thrombectomies and stent placements in the past. He now came in occluded. They had difficulty with runs on Saturday and believe the graft was occluded at that time. He was seen now 3 days later for thrombosed access. Due to previous history of multiple interventions new access will most likely be needed. We therefore recommended a PermCath insertion. I have discussed the risks options and benefits of the procedure with the patient. The patient understands the risks options and benefits and agrees to the procedure. Description of Procedure Patient was taken to the angio suite and placed in the supine position. The right side of the neck and chest wall were prepped and draped in a sterile manner. The patient was identified and a timeout performed. Local anesthesia was then administered to the appropriate areas of the neck and chest wall. Ultrasound was then used to locate the right internal jugular vein. The vein appeared to be occluded with small areas of recannulation. It was decided to try to attempt to recannulate the vein in hopes of being able to place PermCath through a partially occluded internal jugular. The right-sided neck was then anesthetized. We attempted to cannulate the vein. The wire would not pass. It was then decided to place the catheter and left-sided neck. The left side of the neck and chest wall were prepped and draped in a sterile manner. The patient was identified and a timeout performed. Local anesthesia was then administered to the appropriate areas of the neck and chest wall. Ultrasound was then used to locate the left internal jugular vein. The vein compressed easily, had no filing defects, and was patent. The vein was then punctured under direct ultrasound imaging. A guidewire was then passed centrally under fluoroscopic imaging. A stab wound was then made in the anterior chest wall and a 19 cm permcath was passed from the stab wound on the chest wall to the puncture site on the neck. The puncture site was then dilated till the 14Fr p eel away sheath was inserted. The permcath was then inserted through the sheath to a central position in the distal superior vena cava. The peel away sheath was then removed. The catheter was then sutured in place using nylon sutures. The puncture was then closed using a 4-0 Vicryl subcuticular suture. Dermabond was used for a dressing on the puncture site. Both ports aspirated and flushed easily and were then packed with heparin. A sterile dressing was applied to the catheter. The patient left the operation room in satisfactory condition and tolerated the procedure well. All needle and sponge counts were correct at the end of the procedure. I attest to the content of the Intraoperative Record and any orders documented therein. Any exceptions are noted below.
--- NOTE | 2020-02-15 11:37 | Post Anesthesia Assessment ---
Date of Service February 15, 2020 Post Sedation Assessment Vital Signs Temp Pulse Pulse Resp BP BP Pulse Ox 02/15/20 11:29 82 15 161/90 H 95 02/15/20 11:25 85 16 159/88 H 96 02/15/20 11:20 87 16 161/90 H 100 02/15/20 11:15 83 16 160/89 H 98 02/15/20 11:10 87 16 161/90 H 100 02/15/20 11:05 84 16 161/90 H 97 02/15/20 11:00 83 16 154/98 H 98 02/15/20 10:55 82 15 161/88 H 96 02/15/20 10:50 89 15 180/96 H 99 02/15/20 10:45 93 H 15 172/103 H 99 02/15/20 10:17 36.6 C 90 20 165/89 H 94 02/15/20 09:31 86 12 99 02/15/20 09:30 86 12 163/98 H 99 02/15/20 09:16 84 14 99 02/15/20 09:15 86 13 149/88 H 100 02/15/20 08:30 82 15 155/92 H 97 02/15/20 08:00 83 15 100 02/15/20 07:49 85 20 156/94 H 99 02/15/20 07:48 85 18 02/15/20 07:09 82 12 99 02/15/20 07:08 100 02/15/20 07:03 83 13 161/86 H 100 02/15/20 06:39 36.6 C 87 20 155/93 H 99 Recovery Score Activity: Moves 4 extremities Respiration: Deep Breath/Cough Circulation: +/-20% PreAnes Value Consciousness: Fully Awake Oxygen Saturation: > 92% On Room Air Post Anesthesia Score: 10 Discharge Sedation Level of Care: Fast Track Phase II Post Sedation Plan On clinical assessment, the patient appears to have tolerated the sedation without complications. Patient is recovering as anticipated. Patient will continue to be monitored by nursing and may be discharged when sedation discharge criteria are met per below protocol. Upon Completions of procedure up to 15 minutes continue every 5 minute vital signs and the P.A.R. score; then discharge to a Phase I or Fast Track to Phase II per the following guidelines: * Discharge Patient to appropriate Phase II area if PAR is 8 or greater or return to pre- procedure baseline. The post - procedure orders will be as directed. * If PAR score is less than 8 or not return to pre-procedure baseline then patient will follow Phase I monitoring till PAR is reached for Phase II. The Phase I may be done in procedure room or may call to secure a Phase I area. * If naloxone or flumazenil are used for reversal, hold in Phase I for continued monitoring from when last reversal dose was given for a minimum of 60 minutes or longer pending the nurse and/or physician discretion of patient condition before discharge to Phase II. Please call the Sedation Physician to re-evaluate and complete post-note for discharge to Phase II area. Do NOT discharge from procedure sedation or Phase 1 until post- sedation evaluation note is complete by procedure /sedation MD Sedation Discharge Instructions to be given to the patient at discharge to home.
[2020-02-15] MEDS ORDERED: INSULIN HUMAN REGULAR IV ONE (12:19)
[2020-02-15] MEDS ORDERED: NovoLIN-R INSULIN PER UNIT CHARGE ONE (12:24)
[2020-02-15] MEDS ORDERED: INSULIN REGULAR 10 UNITS in SYRINGE 9.9 ML SC STA (15:53)
[2020-02-15] MEDS ORDERED: INSULIN REGULAR 10 UNITS in SYRINGE 9.9 ML IV STA (15:53)
[2020-02-15] MEDS ORDERED: INSULIN HUMAN REGULAR SC ONE (16:00)
--- NOTE | 2020-02-15 16:10 | Emergency Department Note ---
General (ED) Blank Date of Service .February 15, 2020 I saw this patient earlier today and he was sent to the OR for insertion of a fistula for his dialysis. He apparently declined admission and they have set up for dialysis on Saturday. They were concerned however that his blood sugar was high in the OR and given 20 units of insulin IV and sent him back to the ER for further treatment of his hyperglycemia. Upon arrival his blood sugar is 424 he says he feels good and just wants to go home. Apparently since surgeries had some oozing from the catheter site we had IV team come and look at this they applied a dressing and pressure. In the meantime I discussed his medications with her ED pharmacist who ordered regular insulin 10 units IV and 10 units subcu. The patient did not take his normal medications today as he was n.p.o. the patient was signed out to Dr. Schwartz at shift change and he will follow up in the blood sugar and if it is dropping and the patient feels well he will go home and again he declines admission. Additionally IV team will come look at the wound site to ensure that it is not bleeding and the dressing is intact. : Thrombosis of arteriovenous dialysis fistula Qualifiers: Encounter type: initial encounter Qualified Code(s): T82.868A - Thrombosis due to vascular prosthetic devices, implants and grafts, initial encounter Diabetes Qualifiers: Diabetes mellitus type: type 1 Diabetes mellitus complication status: with kidney complications Diabetes mellitus complication detail: with chronic kidney disease Chronic kidney disease stage: on chronic dialysis Qualified Code(s): E10.22 - Type 1 diabetes mellitus with diabetic chronic kidney disease
[2020-02-15] MEDS ORDERED: NovoLIN-R INSULIN PER UNIT CHARGE SQ ONE (16:30)
[2020-02-15] MEDS ORDERED: INSULIN HUMAN REGULAR PER UNIT 5 UNITS in SYRINGE 0 ML IV STA (17:34)
[2020-02-15] MEDS ORDERED: GELATIN SPONGE 12-7MM EXT STA (19:35)
[2020-02-15] MEDS ORDERED: GELATIN SPONGE 12-7MM EXT ONE (20:10)
[2020-02-15] MEDS ORDERED: KETOROLAC TROMETHAMINE 15 MG/ML VIAL ONE (21:41)
--- NOTE | 2020-02-15 21:54 | History & Physical Report ---
Date of Service February 15, 2020 Assessment & Plan (1) Thrombosis of arteriovenous dialysis fistula: (2) ESRD (end stage renal disease): (3) Diabetes: Mr. Snell is a 39yo uncontrolled Type 1 diabetic with a PMHx significant for diabetic retinopathy, neuropathy and nephropathy on dialysis, HTN, HLD, hypothyroidism, GERD, and depression who was admitted for hyperglycemia w/o a gap and bleeding related to line placement today. Bleeding after PermCath placement/?Uremic Bleeding -Pt presented with a nonfunctioning dialysis fistula, taken to the OR to have a permcath inserted -Had significant hyperglycemia and transferred back to the ER -Significant bleeding from permcath site of insertion -Bleeding currently controlled at time of insertion -continue with dressings -hold home aspirin -consider uremic bleeding due to failed dialysis sessions, continue to monitor platelets -will trend cbc q8h -consider consult to Dr. Combs if bleeding persistent Hyperglycemia in the setting of uncontrolled DMI -Pt with BSGs>400 on admission tonight, no anion gap noted -Last hgba1c from September 2019 is 12 -pt states that he follows no particular diet and has the philosophy of not denying himself anything -received 10U IV and 10U SQ insulin in the ED, received an additional 5U IV -continue home insulin detemir 30U qhs with ISS, q2h checks -pharmacy consult, appreciate recs ESRD on dialysis -pt receives dialysis Sat, Sat, Saturday -last dialyzed unsuccessfully on Saturday -permcath inserted today -will consult nephrology HLD -continue home atorvastatin 80mg HTN -continue home carvedilol 12.5mg BID Hypothyroidism -continue home levothyroxine 50mcg daily GERD -continue home protonix 40mg daily LE Edema -continue bumex 2mg Diabetic neuropathy -continue home duloxetine 60mg daily -continue home gabapentin 600mg BID FEN/GI: DMI/dialysis diet CODE STATUS: Full code DVT prophylaxis: will hold in setting of acute bleed Dispo: Med/Surg (4) Diabetic nephropathy: (5) Diabetic peripheral neuropathy: (6) Diabetic proliferative retinopathy: (7) Dyslipidemia: (8) GERD (gastroesophageal reflux disease): (9) Hypertension: (10) Hypothyroidism: (11) Depression: (12) High cholesterol: (13) Acute hyperglycemia: History of Present Illness Primary Care Provider: Maki Peterson MD Mr. Snell is a 39yo uncontrolled Type 1 diabetic with a PMHx significant for diabetic retinopathy, neuropathy and nephropathy on dialysis, HTN, HLD, hypothyroidism, GERD, and depression who was admitted for hyperglycemia w/o a gap and bleeding related to line placement today. Pt was seen earlier today with a nonfunctioning dialysis catheter after he states it had been sluggish from last week. States last Saturday, it was sluggish during dialysis but seemed to work fine on Saturday. However, it did not work at all on Saturday. He had a permcath inserted earlier in the day by Dr. Combs and was noted to have high sugars in the OR. He started having bleeding from the site of insertion in the postop area which continued in the ED after transfer for hyperglycemia and eventually subsided with gel foam dressings. He states that he follows with Dr. Fuller of Cardiology and Dr. Miranda of nephrology. He has had fistula and eye surgeries in the past. Mom had lymphoma and cancer of "her lady parts" and dad had HTN and an IL. Brother is a type 2 diabetic, also on dialysis but controlling his DM with diet. Allergic to Lisinopril. Lives at home in [place] with his brother. Has never smoked, has an alcoholic drink rarely, and no recreational drug use. States he exercises by walking up and down stairs. Does not work, on disability. Allergies Allergy/AdvReac Type Severity Reaction Status Date / Time lisinopril AdvReac Intermediate COUGH Verified 02/15/20 07:28 Home Medications Home Medications Medication Instructions Recorded Confirmed Type calcium acetate 667 mg tablet 667 mg PO .COMPLEX tab 07/14/19 02/15/20 History atorvastatin 80 mg tablet 80 mg PO HS #30 tab 08/21/19 02/15/20 Rx pantoprazole 40 mg tablet,delayed 40 mg PO QAM #90 tab 08/21/19 02/15/20 Rx release OneTouch Delica Lancets 33 gauge #400 ea NS 10/16/19 02/15/20 Rx bumetanide 2 mg tablet See Rx Instructions .ROUTE 10/26/19 02/15/20 Rx .COMPLEX #270 tab aspirin 81 mg tablet,delayed 81 mg PO DAILY #90 tab 11/22/19 02/15/20 Rx release levothyroxine 50 mcg tablet 50 mcg PO DAILY #30 tab 12/03/19 02/15/20 Rx carvedilol 12.5 mg tablet 12.5 mg PO BID #180 tab 01/08/20 02/15/20 Rx duloxetine 60 mg capsule,delayed 60 mg PO DAILY #30 cap 01/11/20 02/15/20 Rx release blood sugar diagnostic #400 ea 01/29/20 02/15/20 Rx blood-glucose meter #1 ea 01/29/20 02/15/20 Rx insulin aspart U-100 100 unit/mL 300 unit SQ DAILY #90 syr 01/29/20 02/15/20 Rx (3 mL) subcutaneous pen insulin detemir U-100 100 unit/mL 30 unit SQ HS #9 syr 01/29/20 02/15/20 Rx (3 mL) subcutaneous pen pen needle, diabetic 29 gauge x #400 ea 01/29/20 02/15/20 Rx 1/2" gabapentin 300 mg capsule 600 mg PO BID #120 cap 02/04/20 02/15/20 Rx Past Med/Surg History Medical History Anemia Chronic venous insufficiency Depression Diabetic peripheral neuropathy associated with type 1 diabetes mellitus Diabetic retinopathy Erectile dysfunction ESRD (end stage renal disease) requiring hemodialysis. MWF at [facility]. Family history of premature coronary artery disease GERD (gastroesophageal reflux disease) H/O febrile seizure as a child (every year until he was 11 years old) no problems since. High cholesterol Hypertension Hypothyroidism Obesity Port-A-Cath in place chest area Type 1 diabetes Vitamin D deficiency Surgical History H/O detached retina repair History of esophagogastroduodenoscopy (EGD) S/P arteriovenous (AV) fistula creation Family History Mother Diabetes Coronary heart disease Hypertension Father Coronary heart disease Hypertension Brother Coronary heart disease Kidney disease Uncle Colorectal cancer Grandmother Diabetes Aunt Diabetes Unknown Dyslipidemia Other Cancer No family history of adverse response to anesthesia Social History Smoking Status: Never smoker Second Hand Exposure: No; Hx Alcohol Use: No Hx Substance Use: No Preferred Language: Khmer Communication Ability: Effective Visual Impairment: No Limitations Hearing Ability: Normal Sound Controller Required: No Beliefs That Will Affect Care: None marital status: Single Current Living Situation: Family Current Living Situation Comment: apartment lives with brother 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" Other Information That Helps Us Care for You: No Feels Safe at Home: Yes Safety Concerns: Feels Safe At This Time Dental Care, Regularly: No Physical Activity Frequency: Does not Exercise Seatbelt Use: always Sunscreen Use: No Assistive Devices: None Review of Systems Constitutional: no fever, no chills and no sweats Eyes: no worsening vision Ear, Nose, Mouth, Throat: no nasal congestion and no sore throat Respiratory: no cough and no dyspnea Cardiovascular: + edema; no chest pain, no dyspnea and no palpitations Gastrointestinal: no abdominal pain, no nausea, no vomiting, no constipation, no diarrhea/loose stools and no blood in stools Genitourinary: no dysuria Musculoskeletal: no back pain Integumentary: no rash Neurologic: + tingling and + numbness; no headache(s) and no confusion Psychiatric: no confusion Physical Exam Physical Exam: General: Obese gentleman. Alert, oriented. No acute distress laying in bed with bandage across his chest. Skin: No noted rashes or bruises Psych: Appropriate mood and affect Neuro: No gross deficits HEENT: NC/AT Chest: Nontender to palpation. CV: RRR, Normal s1, s2. No murmurs appreciated Resp: Breath sounds clear bilaterally, no increased effort of breathing. Abdomen: Soft, nontender. No guarding. No organomegaly appreciated. Extremities: ++ edema in lower extremities bilaterally. Results & Data Results & Data ([facility]) Vital Signs (Past 12 Hours) Vital Signs Temp Pulse Pulse Resp BP Pulse Ox 02/15/20 19:00 76 20 160/90 H 98 02/15/20 16:56 72 20 170/86 H 98 02/15/20 15:33 83 20 163/95 H 97 02/15/20 14:00 88 18 170/83 H 96 02/15/20 13:36 36.6 C 88 20 170/83 H 94 02/15/20 13:00 36.6 C 84 18 174/97 H 96 02/15/20 12:15 85 18 175/100 H 96 02/15/20 11:45 36.8 C 87 18 205/117 H 97 02/15/20 11:34 82 16 161/90 H 95 02/15/20 11:29 82 15 161/90 H 95 02/15/20 11:25 85 16 159/88 H 96 02/15/20 11:20 87 16 161/90 H 100 02/15/20 11:15 83 16 160/89 H 98 02/15/20 11:10 87 16 161/90 H 100 02/15/20 11:05 84 16 161/90 H 97 02/15/20 11:00 83 16 154/98 H 98 02/15/20 10:55 82 15 161/88 H 96 02/15/20 10:50 89 15 180/96 H 99 02/15/20 10:45 93 H 15 172/103 H 99 02/15/20 10:17 36.6 C 90 20 165/89 H 94 Supervising Physician Co-Signing Physician Notes Patient seen and examined, chart reviewed, case discussed and I agree with her assessment and plan as documented above. Briefly, patient is a 39yo C male with Type I DM, HTN, HLP, ESRD on HD presenting with poorly controlled blood sugars and bleeding from perm-cath. Patient had a thrombosed fistula. Had placement of left IJ Permcath by Dr. Combs today. Procedure was well tolerated, however, had some bleeding around the catheter following the procedure. Also with markedly elevated blood sugars, minimally responsive to insulin On exam he is poorly kempt C male, NAD Left IJ perm cath with dressing in place - Gelfoam with 4x4s, ABD and pressure dressing with sandbag. Bleeding has stopped HEENT - NC/AT, PERRL, EOMI, MMM, neck supple Heart - +S1/S2, regular, no m/r/g Lungs - CTA, no rales/rhonchi/wheezes Ext - diffuse edema of bilateral LE Labs and images reviewed. Assessment/Plan - -Observation to medical -Monitor CBC -Vascular Surgery consult if bleeding continues -Nephrology consultation - patient will most likely need HD. ?component of uremic bleeding contributing to blood loss and oozing. Will administer DDAVP if needed -Glycemic management consultation for hyperglycemia - patient was administered 20u SC Regular +10u SQ Regular, 10u IV Regular in the ER as well as 30u Insulin Detemir and 7 units Insulin Aspart on the floor - blood sugars remain high at 329 -Remainder of plan as above Resident Activity Tracking Resident Involvement: Resident Care Provided Care Provided: Adult Hospital Medicine (1) Thrombosis of arteriovenous dialysis fistula Encounter type: initial encounter Qualified Code(s): T82.868A - Thrombosis due to vascular prosthetic devices, implants and grafts, initial encounter (2) Diabetes Chronic kidney disease stage: on chronic dialysis Diabetes mellitus complication detail: with chronic kidney disease Diabetes mellitus complication status: with kidney complications Diabetes mellitus type: type 1 Qualified Code(s): E10.22 - Type 1 diabetes mellitus with diabetic chronic kidney disease; N18.6 - End stage renal disease; Z99.2 - Dependence on renal dialysis (3) Depression Active/Remission status: remission status unspecified Depression Type: major depressive disorder Major depression recurrence: recurrent Qualified Code(s): F33.9 - Major depressive disorder, recurrent, unspecified (4) Hypothyroidism Hypothyroidism type: unspecified Qualified Code(s): E03.9 - Hypothyroidism, unspecified (5) GERD (gastroesophageal reflux disease) Esophagitis presence: esophagitis presence not specified Qualified Code(s): K21.9 - Gastro-esophageal reflux disease without esophagitis (6) Hypertension Hypertension type: unspecified Qualified Code(s): I10 - Essential (primary) hypertension
--- NOTE | 2020-02-15 22:28 | Electrocardiogram Report ---
Test Reason : Blood Pressure : / mmHG Vent. Rate : 083 BPM Atrial Rate : 083 BPM P-R Int : 166 ms QRS Dur : 100 ms QT Int : 406 ms P-R-T Axes : 017 -03 031 degrees QTc Int : 477 ms Normal sinus rhythm Moderate voltage criteria for LVH, may be normal variant Borderline ECG When compared with ECG of 22-MAY-2019 11:22, No significant change was found Confirmed by Nicholas Pittman ([id number]) on 02/15/2020 10:28:07 PM Referred By: Confirmed By:Nicholas Pittman
--- NOTE | 2020-02-15 22:43 | Emergency Department Note ---
ED Visit Note I received this patient in signout at the change of shift from Dr. Covington pending improved glycemic management and reevaluation of the bleeding dialysis catheter site. Patient's blood sugar had modestly improved after the subcutaneous and IV insulin previously ordered. An additional 5 units of IV regular insulin was ordered. Gelfoam was placed around the dialysis catheter with a pressure dressing. After nearly 2 hours of observation, the patient's blood glucose did improve and the bleeding seemed to have subsided however upon standing up to use the bathroom prior to discharge, the patient bled through the dressing and onto the floor. A new dressing was applied. I readdressed the issue of hospitalization with the patient and stated it would be impossible for us to manage his bleeding surgical site from home. There are many reasons for his bleeding including his aspirin therapy, end-stage renal disease and missed dialysis x2. I did speak with Dr. Combs who agrees with the plan and Dr. Cassidy of the hospitalist service who will evaluate the patient for further management. . : Thrombosis of arteriovenous dialysis fistula Qualifiers: Encounter type: initial encounter Qualified Code(s): T82.868A - Thrombosis due to vascular prosthetic devices, implants and grafts, initial encounter Diabetes Qualifiers: Diabetes mellitus type: type 1 Diabetes mellitus complication status: with kidney complications Diabetes mellitus complication detail: with chronic kidney disease Chronic kidney disease stage: on chronic dialysis Qualified Code(s): E10.22 - Type 1 diabetes mellitus with diabetic chronic kidney disease
[2020-02-15] MEDS ORDERED: GLUCOSE 10 TABS/TUBE PO PRN (23:58)
[2020-02-15] MEDS ORDERED: CARBOHYDRATES FOR HYPOGLYCEMIA PO PRN (23:58)
[2020-02-15] MEDS ORDERED: GLUCOSE 40% GEL 15 GM TUBE PO PRN (23:58)
[2020-02-15] MEDS ORDERED: DEXTROSE 50% 50 ML SYRINGE IV PRN (23:58)
[2020-02-15] MEDS ORDERED: GLUCAGON FOR INJ 1 MG VIAL SQ PRN (23:58)
[2020-02-16] MEDS ORDERED: INSULIN ASPART 100 UNITS/ML 3 ML PEN SC ONE (00:15)
[2020-02-16] MEDS ORDERED: INSULIN DETEMIR FLEXPEN/FLEX TOUCH 100 UNITS/ML 3ML SQ SCH (00:15)
[2020-02-16] MEDS: GABAPENTIN 300 MG CAP PO SCH ×3 (00:32→20:42)
[2020-02-16] MEDS ORDERED: PHARMACY GLYCEMIC MGMT CONSULT PRN (02:08)
[2020-02-16 03:07] LABS: Basophils # (auto) 0.01 K/uL (0-0.2); Basophils % (auto) 0.2 %; Eosinophils # (auto) 0.12 K/uL (0-0.5); Eosinophils % (auto) 2.4 %; Hemoglobin 8.1 g/dL (14.0-18.0); Immature Granulocytes # (auto) 0.01 K/uL (0.00-0.02); Immature Granulocytes % (auto) 0.2 %; Lymphocytes # (auto) 1.25 K/uL (1.2-3.4); Mean Corpuscular Hemoglobin 30.1 pg (25-34); Mean Corpuscular Hgb Conc 33.8 g/dL (32-36); Mean Corpuscular Volume 89.2 fL (80-100); Mean Platelet Volume 9.2 fL (7.4-10.4); Monocytes # (auto) 0.51 K/uL (0.11-0.59); Monocytes % (auto) 10.2 %; Neutrophils # (auto) 3.11 K/uL (1.4-6.5); Platelet Count 175 K/uL (130-400); RDW Standard Deviation 42.2 fL (36.4-46.3); Red Blood Count 2.69 M/uL (4.7-6.1); White Blood Count 5.01 K/uL (4.8-10.8)
--- NOTE | 2020-02-16 03:13 | Billing Data ---
Date of Service February 15, 2020 Coding Level of Care Code 46506 OBS Care - Level 3
[2020-02-16 03:27] LABS: BUN Creatinine Ratio 23.2 (10-20); Calcium 8.8 mg/dl (8.5-10.1); Creatinine Clr Calc Pharmacy 27.9 ml/min; Est GFR (African American) 18.1; Est GFR (Non-African American) 15.6; Potassium 3.6 mmol/L (3.5-5.1)
[2020-02-16] MEDS ORDERED: INSULIN ASPART 100 UNITS/ML 3 ML PEN SC SCH (04:00)
[2020-02-16] MEDS: LEVOTHYROXINE SODIUM 50 MCG TABLET PO SCH (05:12)
[2020-02-16 06:16] LABS: Estimated Average Glucose 283 mg/dl; Hemoglobin A1C 11.5 % (4.5-5.6)
[2020-02-16] MEDS: BUMETANIDE 1 MG TAB PO SCH ×2 (09:30→17:28)
[2020-02-16] MEDS: PANTOprazole 40 MG TAB PO SCH (09:30)
[2020-02-16] MEDS: carvediloL 12.5 MG TAB PO SCH ×2 (09:30→20:42)
[2020-02-16] MEDS: DULoxetine HCL 60 MG CAP PO SCH (09:30)
[2020-02-16] MEDS: INSULIN DETEMIR FLEXPEN/FLEX TOUCH 100 UNITS/ML 3ML SQ SCH ×2 (09:31→20:44)
[2020-02-16] MEDS: INSULIN ASPART 100 UNITS/ML 3 ML PEN SC SCH ×4 (09:31→20:43)
--- NOTE | 2020-02-16 09:42 | Consultation ---
Date of Consultation February 16, 2020 Assessment & Plan (1) Central venous catheter in place: Pt with L chest wall permcath in place for HD. Per pt, scheduled for HD later this AM. No active bleeding noted from site, but old bleeding noted and no sterile dressing in place. Recommend replacement of sterile dressing to L chest wall exit site by IV team or HD unit nurses. Discussed with RN. No indications for vascular surgical intervention at this time. Will see pt in office in a few weeks to discuss new AVF creation. History of Present Illness Reason for Consultation: bleeding from permcath insertion site Attending Physician: Lee Ayala DO History of Present Illness 39 yo m with ESRD on HD, known to Dr Combs, seen in consultation today d/t bleeding frompermcath insertion site L chest wall. Pt had permcath inserted yesterday by Dr Combs d/t thrombosed LUE AVF and pt not having undergone HD in 1 week. Pt denies pain, chest pain, SOB, abdpain, N/V, rest pain, claudication, other complaints. Allergies Allergy/AdvReac Type Severity Reaction Status Date / Time lisinopril AdvReac Intermediate COUGH Verified 02/15/20 07:28 Home Medications Home Medications Medication Instructions Recorded Confirmed Type calcium acetate 667 mg tablet 667 mg PO .COMPLEX tab 07/14/19 02/15/20 History atorvastatin 80 mg tablet 80 mg PO HS #30 tab 08/21/19 02/15/20 Rx pantoprazole 40 mg tablet,delayed 40 mg PO QAM #90 tab 08/21/19 02/15/20 Rx release OneTouch Delica Lancets 33 gauge #400 ea NS 10/16/19 02/15/20 Rx bumetanide 2 mg tablet See Rx Instructions .ROUTE 10/26/19 02/15/20 Rx .COMPLEX #270 tab aspirin 81 mg tablet,delayed 81 mg PO DAILY #90 tab 11/22/19 02/15/20 Rx release levothyroxine 50 mcg tablet 50 mcg PO DAILY #30 tab 12/03/19 02/15/20 Rx carvedilol 12.5 mg tablet 12.5 mg PO BID #180 tab 01/08/20 02/15/20 Rx duloxetine 60 mg capsule,delayed 60 mg PO DAILY #30 cap 01/11/20 02/15/20 Rx release blood sugar diagnostic #400 ea 01/29/20 02/15/20 Rx blood-glucose meter #1 ea 01/29/20 02/15/20 Rx insulin aspart U-100 100 unit/mL 300 unit SQ DAILY #90 syr 01/29/20 02/15/20 Rx (3 mL) subcutaneous pen insulin detemir U-100 100 unit/mL 30 unit SQ HS #9 syr 01/29/20 02/15/20 Rx (3 mL) subcutaneous pen pen needle, diabetic 29 gauge x #400 ea 01/29/20 02/15/20 Rx 1/2" gabapentin 300 mg capsule 600 mg PO BID #120 cap 02/04/20 02/15/20 Rx Patient History Medical History Anemia Chronic venous insufficiency Depression Diabetic peripheral neuropathy associated with type 1 diabetes mellitus Diabetic retinopathy Erectile dysfunction ESRD (end stage renal disease) requiring hemodialysis. MWF at [facility]. Family history of premature coronary artery disease GERD (gastroesophageal reflux disease) H/O febrile seizure as a child (every year until he was 11 years old) no problems since. High cholesterol Hypertension Hypothyroidism Obesity Port-A-Cath in place chest area Type 1 diabetes Vitamin D deficiency Surgical History H/O detached retina repair History of esophagogastroduodenoscopy (EGD) S/P arteriovenous (AV) fistula creation Family History Mother Diabetes Coronary heart disease Hypertension Father Coronary heart disease Hypertension Brother Coronary heart disease Kidney disease Uncle Colorectal cancer Grandmother Diabetes Aunt Diabetes Unknown Dyslipidemia Other Cancer No family history of adverse response to anesthesia Social History Smoking Status: Never smoker Second Hand Exposure: No; Hx Alcohol Use: No Hx Substance Use: No Preferred Language: Maori Communication Ability: Effective Visual Impairment: No Limitations Hearing Ability: Normal Senior Trainer Required: No Beliefs That Will Affect Care: None marital status: Single Current Living Situation: Family Current Living Situation Comment: apartment lives with brother 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" Other Information That Helps Us Care for You: No Feels Safe at Home: Yes Safety Concerns: Feels Safe At This Time Dental Care, Regularly: No Physical Activity Frequency: Does not Exercise Seatbelt Use: always Sunscreen Use: No Assistive Devices: None Review of Systems Review of Systems: All systems reviewed & are unremarkable except as noted in HPI & below Physical Exam Constitutional: WD/WN, vitals as above + morbidly obese, + disheveled, cooperative and comfortable; not in distress Eyes: PERRL, conjunctivae normal, anicteric sclerae Respiratory: normal respiratory effort, lungs clear to auscultation Cardiovascular: Rate/Rhythm: regular rate and regular rhythm Vessels: posterior tibial pulses present, dorsalis pedis pulses present and radial pulses present; + abnormal peripheral pulses Extremities: + edema (BLE) and + vascular access device (L chest wall, no active bleeding noted. ) Gastrointestinal (Abdomen): normal bowel sounds, soft, nontender, no hepatosplenomegaly Musculoskeletal: no cyanosis or clubbing, extremities motor strength 5/5 Skin: no rashes, warm and dry Neurologic: moves all extremities; no focal motor deficits Psychiatric: A+Ox3, euthymic affect Results & Data ([facility]) Vital Signs (Past 12 Hours) Vital Signs Temp Pulse Resp BP Pulse Ox 02/16/20 07:31 36.5 C 84 20 140/79 99 02/16/20 04:59 36.6 C 90 18 164/95 H 100 02/16/20 01:30 162/88 H 02/16/20 00:00 36.5 C 95 H 20 192/102 H 02/15/20 23:14 36.6 C 90 18 169/100 H 100 02/15/20 22:59 90 18 169/100 H 100
[2020-02-16 09:48] LABS: Hepatitis B Surface Ab Quant 15.08 mIU/mL (>or=10mIU/mL Immune); Hepatitis B Surface Antibody Immune
[2020-02-16 09:59] LABS: Hepatitis B Surface Antigen Neg (Neg)
--- NOTE | 2020-02-16 10:41 | Pharmacy Report ---
Glycemic Control Consultation - Date of Service February 16, 2020 - Scope Scope: Glycemic Pharmacist consulted for glycemic control and to write orders per [facility] inpatient glycemic control protocol. - Objective Weight: 124.1 kg Accuchecks BSG (last 24hrs): 02/15/20 02/15/20 02/15/20 11:47 12:54 14:51 Glucose POC Glucose 580 H* > 600 H* 442 H* 02/15/20 02/15/20 02/15/20 17:19 18:33 19:23 Glucose POC Glucose 402 H* 364 H* 313 H* 02/16/20 02/16/20 02/16/20 00:34 00:36 02:25 Glucose POC Glucose 350 H* 337 H* 329 H* 02/16/20 02/16/20 02/16/20 02:55 04:39 08:07 Glucose 282 H POC Glucose 277 H 285 H Laboratory Data (last 24hrs): 02/16/20 02:55 Potassium 3.6 D Carbon Dioxide 27 Anion Gap 6.0 Creatinine 4.46 H D Est Cr Clr Drug Dosing 27.9 HbA1c: Hemoglobin A1c 11.5 % (4.5-5.6) H 02/16/20 02:55 - Recent Pertinent Medications Outpatient Anti-diabetic Regimen: * Levemir 30 units SC HS + Novolog 100 units SC TIDM (max 300 units/day) * A1c = 11.5% (02/16/2020) The patient is currently receiving: * Basal insulin: Levemir 30 units every 24 hours * Correctional Insulin: Novolog Correction per scale ACHS Goal Range: Low 110 mg/dL - High 140 mg/dL Correction Factor: 25 mg/dL/unit * Prandial insulin: Per carb ratio of 1 unit per 8 grams CHO consumed Risk Factors for Insulin Resistance: * Diet: * T1DM - Assessment & Plan Assessment & Plan: ASSESSMENT: * 39 yo M with T1DM and ESRD on HD admitted secondary to bleeding around dialysis catheter site. A1c of 11.5% shows poor outpatient control of T1DM on Levemir + Novolog. Patient reports symptomatic hypoglycemia with BSGs < 200 mg/dL so outpatient provider has been trying to increase insulin doses gradually. HbA1c is actually improved from previous in September 2019; however, given ESRD, HbA1c is unlikely to be reliable. * Ventura received 30 units of basal insulin and 47 units of bolus insulin yesterday * Bolus insulin consisted of 10 unit IV bolus + 30 units regular insulin SC + 7 units Novolog SC * BSGs yesterday were: 580->[phone] mg/dL * Overnight checks were: 350-329-277 mg/dL * Fasting BSG this AM was still significantly elevated at 285 mg/dL. * Based on previous admission data and weight/stress of 3, I have increased Ventura to 30 units of basal insulin BID as well as tightened his Novolog parameters this morning. * Lunchtime BSG was 273 mg/dL. * Will tighten CF/CR further based on previous admission data. PLAN FOR INPATIENT GLYCEMIC CONTROL: * Basal insulin - increased * Levemir 30 units SQ BID * Bolus insulin - tightened * NovoLog per scale ACHS or Q6hrs while NPO * Goal Range: Low 110 mg/dL - High 140 mg/dL * Correction Factor: 10 mg/dL/unit * Nutritional / Prandial insulin per carb ratio of 1 unit per 3 grams CHO consumed * Please note that the plan above was derived based on current level of insulin resistance and hospital stress. These recommendations are appropriate for inpatient admission only. Plan of care upon discharge will need to be reassessed to avoid potential outpatient hypo/hyperglycemia. Thank you.
[2020-02-16 11:50] LABS: Basophils # (auto) 0.01 K/uL (0-0.2); Basophils % (auto) 0.3 %; Eosinophils # (auto) 0.09 K/uL (0-0.5); Eosinophils % (auto) 2.8 %; Hematocrit (blood only) 23.6 % (42-52); Hemoglobin 8.1 g/dL (14.0-18.0); Immature Granulocytes # (auto) 0.01 K/uL (0.00-0.02); Immature Granulocytes % (auto) 0.3 %; Lymphocytes # (auto) 0.66 K/uL (1.2-3.4); Lymphocytes % (auto) 20.4 %; Mean Corpuscular Hemoglobin 30.1 pg (25-34); Mean Corpuscular Hgb Conc 34.3 g/dL (32-36); Mean Corpuscular Volume 87.7 fL (80-100); Mean Platelet Volume 9.3 fL (7.4-10.4); Monocytes % (auto) 6.2 %; Neutrophils # (auto) 2.26 K/uL (1.4-6.5); Platelet Count 170 K/uL (130-400); RDW Coefficient of Variation 12.9 % (11.5-14.5); RDW Standard Deviation 41.8 fL (36.4-46.3); Red Blood Count 2.69 M/uL (4.7-6.1); White Blood Count 3.23 K/uL (4.8-10.8)
[2020-02-16 12:17] LABS: BUN Creatinine Ratio 22.7 (10-20); Calcium 8.6 mg/dl (8.5-10.1); Creatinine Clr Calc Pharmacy 42.8 ml/min; Est GFR (African American) 30.3; Est GFR (Non-African American) 26.1; Potassium 3.6 mmol/L (3.5-5.1)
--- NOTE | 2020-02-16 12:28 | Nephrology Consultation ---
Date of Consultation February 16, 2020 Assessment & Plan (1) ESRD (end stage renal disease): End-stage renal disease on hemodialysis presented with thrombosed AV fistula, had tunneled dialysis catheter. Admitted with tunneled dialysis catheter bleeding site, missed dialysis and hyperglycemia. -- Will do urgent dialysis today as he missed dialysis for last 4 days, UF as tolerated to reach his dry weight. dialysis tomorrow as his regular schedule -- Eventually he will need another fistula in right upper extremity, will need to follow up with vascular surgery as an outpatient. -- right arm nephrology precaution, fluid restriction to less than 1 L per day, low-potassium diet. Will follow Thank you for allowing me to participate in your patient's care. It was a pleasure to see Juan Jose (2) Thrombosis of arteriovenous dialysis fistula: (3) Central venous catheter in place: (4) Diabetes: History of Present Illness Reason for Consultation: End-stage renal disease on hemodialysis, malfunctioning AV fistula, need for dialysis access. Attending Physician: Lee Ayala, DO History of Present Illness Ventura Snell is a 39-year-old male with past medical history significant for end-stage renal disease on hemodialysis, hypertension, diabetes admitted to the hospital with bleeding from catheter site, hyperglycemia and missed dialysis. Nephrology consult was requested to provide dialysis while inpatient. Electronic medical records are reviewed in detail during patient's visit. Juan Jose has end-stage renal disease secondary to diabetic nephropathy, has been on hemodialysis Saturday, Saturday, Saturday at [facility]. He had regular dialysis last Saturday. During dialysis on Saturday his fistula was found to be slightly she with low-flow and he only had dialysis for 20 minutes and was discharged home. When he went for dialysis Saturday morning fistula was found to be thrombosed and he was sent to ER for further evaluation. Was seen by Dr. Combs in ER. fistula was found to be of occluded with thrombus and he had a tunnel catheter placed. His fistula had multiple inter vention including revision and declotting before. although he missed dialysis 2 days his volume status and respiratory status was otherwise stable. His blood sugar was found to be above 600. Considering missed dialysis for 2 treatment and elevated blood sugar he was recommended to get admitted for urgent dialysis and treatment of hyperglycemia however he refused that. However, prior to discharge from postsurgical area he started having bleeding from his new tunnel catheter site and he was sent to ER for further evaluation. In ER initial attempt to stop the bleeding was failed and he was admitted inpatient. Eventually bleeding stopped, hemoglobin stayed relatively stable. This morning he is otherwise feeling well. Catheter site bleeding stopped with pressure dressing. Blood sugar slightly improved. Blood pressure is well controlled and he has been breathing comfortably in room air. Allergies Allergy/AdvReac Type Severity Reaction Status Date / Time lisinopril AdvReac Intermediate COUGH Verified 02/15/20 07:28 Home Medications Home Medications Medication Instructions Recorded Confirmed Type calcium acetate 667 mg tablet 667 mg PO .COMPLEX tab 07/14/19 02/15/20 History atorvastatin 80 mg tablet 80 mg PO HS #30 tab 08/21/19 02/15/20 Rx pantoprazole 40 mg tablet,delayed 40 mg PO QAM #90 tab 08/21/19 02/15/20 Rx release OneTouch Delica Lancets 33 gauge #400 ea NS 10/16/19 02/15/20 Rx bumetanide 2 mg tablet See Rx Instructions .ROUTE 10/26/19 02/15/20 Rx .COMPLEX #270 tab aspirin 81 mg tablet,delayed 81 mg PO DAILY #90 tab 11/22/19 02/15/20 Rx release levothyroxine 50 mcg tablet 50 mcg PO DAILY #30 tab 12/03/19 02/15/20 Rx carvedilol 12.5 mg tablet 12.5 mg PO BID #180 tab 01/08/20 02/15/20 Rx duloxetine 60 mg capsule,delayed 60 mg PO DAILY #30 cap 01/11/20 02/15/20 Rx release blood sugar diagnostic #400 ea 01/29/20 02/15/20 Rx blood-glucose meter #1 ea 01/29/20 02/15/20 Rx insulin aspart U-100 100 unit/mL 300 unit SQ DAILY #90 syr 01/29/20 02/15/20 Rx (3 mL) subcutaneous pen insulin detemir U-100 100 unit/mL 30 unit SQ HS #9 syr 01/29/20 02/15/20 Rx (3 mL) subcutaneous pen pen needle, diabetic 29 gauge x #400 ea 01/29/20 02/15/20 Rx 1/2" gabapentin 300 mg capsule 600 mg PO BID #120 cap 02/04/20 02/15/20 Rx Patient History Medical History Anemia Chronic venous insufficiency Depression Diabetic peripheral neuropathy associated with type 1 diabetes mellitus Diabetic retinopathy Erectile dysfunction ESRD (end stage renal disease) requiring hemodialysis. MWF at [facility]. Family history of premature coronary artery disease GERD (gastroesophageal reflux disease) H/O febrile seizure as a child (every year until he was 11 years old) no problems since. High cholesterol Hypertension Hypothyroidism Obesity Port-A-Cath in place chest area Type 1 diabetes Vitamin D deficiency Surgical History H/O detached retina repair History of esophagogastroduodenoscopy (EGD) S/P arteriovenous (AV) fistula creation Family History Mother Diabetes Coronary heart disease Hypertension Father Coronary heart disease Hypertension Brother Coronary heart disease Kidney disease Uncle Colorectal cancer Grandmother Diabetes Aunt Diabetes Unknown Dyslipidemia Other Cancer No family history of adverse response to anesthesia Social History Smoking Status: Never smoker Second Hand Exposure: No; Hx Alcohol Use: No Hx Substance Use: No Preferred Language: Samoan Communication Ability: Effective Visual Impairment: No Limitations Hearing Ability: Normal Flake Or Shred Roll Operator Required: No Beliefs That Will Affect Care: None marital status: Single Current Living Situation: Family Current Living Situation Comment: apartment lives with brother 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" Other Information That Helps Us Care for You: No Feels Safe at Home: Yes Safety Concerns: Feels Safe At This Time Dental Care, Regularly: No Physical Activity Frequency: Does not Exercise Seatbelt Use: always Sunscreen Use: No Assistive Devices: None Review of Systems Review of Systems: All systems reviewed & are unremarkable except as noted in HPI & below Physical Exam Constitutional: WD/WN, vitals as above well developed and well nourished; no acute distress Eyes: PERRL, conjunctivae normal, anicteric sclerae ENMT: external ear and nose normal, oropharynx normal Ears: no hearing impairment Neck: trachea midline Respiratory: normal respiratory effort, lungs clear to auscultation no cou gh Auscultation: no crackles, no rales and no wheezes Cardiovascular: RRR, no murmur, no edema Extremities: + vascular access device ( Left IJ TDC site with pressure dressing, dry, no active bleeding.) and + AV fistula ( Left brachiocephalic AV fistula with no thrill or bruit) Gastrointestinal (Abdomen): normal bowel sounds, soft, nontender, no hepatosplenomegaly Percussion/Palpation: abdomen nontender, no guarding and abdomen not rigid Musculoskeletal: Extremities: extremities normal to inspection Gait: normal gait Skin: no rashes, warm and dry Neurologic: moves all extremities and awake Psychiatric: A+Ox3, euthymic affect Results & Data ([facility]) Vital Signs (Past 12 Hours) Vital Signs Temp Pulse Pulse Pulse Resp BP BP 02/16/20 12:00 90 114/74 02/16/20 11:40 88 116/81 02/16/20 11:20 85 111/76 02/16/20 11:00 86 133/83 02/16/20 10:47 36.7 C 93 H 93 H 101/69 02/16/20 07:31 36.5 C 84 20 140/79 02/16/20 04:59 36.6 C 90 18 164/95 H 02/16/20 01:30 162/88 H Pulse Ox 02/16/20 12:00 02/16/20 11:40 02/16/20 11:20 02/16/20 11:00 02/16/20 10:47 02/16/20 07:31 99 02/16/20 04:59 100 02/16/20 01:30 PG Care Time/CCT Total # of Minutes Spent Total Time Spent with Patient: Total time spent is greater than 50% in coordination of care (as documented) at patient's floor/unit and/or counseling patient: Coding Level of Care Code 08762 Inpt Consult Level 5 Diagnoses ESRD (end stage renal disease) N18.6 Thrombosis of arteriovenous dialysis fistula T82.868A Encounter type: initial encounter Central venous catheter in place Z78.9 Diabetes E10.22; N18.6; Z99.2 Chronic kidney disease stage: on chronic dialysis Diabetes mellitus complication detail: with chronic kidney disease Diabetes mellitus complication status: with kidney complications Diabetes mellitus type: type 1 (1) Thrombosis of arteriovenous dialysis fistula Encounter type: initial encounter Qualified Code(s): T82.868A - Thrombosis due to vascular prosthetic devices, implants and grafts, initial encounter (2) Diabetes Chronic kidney disease stage: on chronic dialysis Diabetes mellitus complication detail: with chronic kidney disease Diabetes mellitus complication status: with kidney complications Diabetes mellitus type: type 1 Qualified Code(s): E10.22 - Type 1 diabetes mellitus with diabetic chronic kidney disease; N18.6 - End stage renal disease; Z99.2 - Dependence on renal dialysis
[2020-02-16] MEDS ORDERED: EPOETIN ALFA 10,000 UNITS/ML VIAL IV ONE (12:29)
--- NOTE | 2020-02-16 17:56 | Hospitalist Progress Note ---
Date of Service February 16, 2020 Assessment & Plan (1) Vascular dialysis catheter in place: Placed 02/14 with subsequent bleeding now controlled Consulted vascular surgery who recommended HD nurses replace sterile dressing but no surgical interventions necessary at this time (2) ESRD (end stage renal disease): Dialysis today performed urgently due to no dialysis for 4 days. Will repeat tomorrow to follow his normal schedule Nephrology consulted (3) Type 1 diabetes: With hyperglycemia on admission with bsgs over 400, No anion gap -Last hgba1c from September 2019 is 12 -pt states that he follows no particular diet and has the philosophy of not denying himself anything -pharmacy consulted for glycemic managment Diabetic education (4) Hypertension: Continue home carvedilol (5) Hypothyroidism: continue home levothyroxine 50mcg daily (6) GERD (gastroesophageal reflux disease): Continue home pantoprazole (7) Diabetic peripheral neuropathy: -continue home duloxetine 60mg daily -continue home gabapentin 600mg BID (8) Edema: continue bumex 2mg (9) Acute blood loss anemia: combined with anemia of chronic disease secondary to perm cath bleeding Hgb stable today recheck am (10) DVT prophylaxis: Hold chemoprophylaxis due to bleeding SCDs Admission and Anticipated Discharge Date Admission Date: February 15, 2020 Subjective Mr. Snell is feeling well this afternoon, no complaints, post dialysis. ROS Constitutional: no chills, aches, sweats or fever Respiratory: no sob,cough, sputum, or wheezing Cardiac: no chest pain, palpitations, edema, orthopnea or lightheadedness GI: no abdominal pain, nausea, vomiting, diarrhea or constipation : no dysuria or hesitancy Extremities: no joint pain or weakness Skin: no rash All other systems reviewed and negative Physical Exam Physical Exam: General: no distress Eyes: normal inspection, PERLL Respiratory: chest non tender, clear to auscultation, normal breath sounds, no respiratory distress, no accessory muscle use Cardiac: regular rate and rhythm, no rub or gallop, no murmur, no edema, no jvd GI/: active bowel sounds, no abd pain or tenderness, soft, non distended Extremities: normal range of motion, normal strength, non tender Neuro/Psych: alert and oriented x 3, normal mood and affect Skin: normal color, dry Results & Data Results & Data ([facility]) Vital Signs (Past 12 Hours) Vital Signs Temp Pulse Pulse Pulse Resp BP BP 02/16/20 15:23 36.9 C 90 18 122/82 02/16/20 14:42 36.7 C 86 86 103/66 103/66 02/16/20 14:40 92 H 70/58 L 02/16/20 14:20 91 H 100/71 02/16/20 14:00 91 H 86/71 L 02/16/20 13:40 91 H 98/77 L 02/16/20 13:20 89 114/71 02/16/20 13:00 88 92/62 L 02/16/20 12:40 89 102/66 02/16/20 12:20 91 H 117/79 02/16/20 12:00 90 114/74 02/16/20 11:40 88 116/81 02/16/20 11:20 85 111/76 02/16/20 11:00 86 133/83 02/16/20 10:47 36.7 C 93 H 93 H 101/69 02/16/20 07:31 36.5 C 84 20 140/79 Pulse Ox 02/16/20 15:23 100 02/16/20 14:42 02/16/20 14:40 02/16/20 14:20 02/16/20 14:00 02/16/20 13:40 02/16/20 13:20 02/16/20 13:00 02/16/20 12:40 02/16/20 12:20 02/16/20 12:00 02/16/20 11:40 02/16/20 11:20 02/16/20 11:00 02/16/20 10:47 02/16/20 07:31 99 PG Care Time/CCT Total # of Minutes Spent Total Time Spent with Patient: Total time spent is greater than 50% in coordination of care (as documented) at patient's floor/unit and/or counseling patient: Coding Level of Care Code 66527 Subseq Obs Care Lvl 3 Diagnoses Vascular dialysis catheter in place Z99.2 ESRD (end stage renal disease) N18.6 Type 1 diabetes E10.9 Hypertension I10 Hypertension type: unspecified Hypothyroidism E03.9 Hypothyroidism type: unspecified GERD (gastroesophageal reflux disease) K21.9 Esophagitis presence: esophagitis presence not specified Diabetic peripheral neuropathy E11.42 Edema R60.9 Acute blood loss anemia D62 DVT prophylaxis Z29.9 (1) Hypertension Hypertension type: unspecified Qualified Code(s): I10 - Essential (primary) hypertension (2) Hypothyroidism Hypothyroidism type: unspecified Qualified Code(s): E03.9 - Hypothyroidism, unspecified (3) GERD (gastroesophageal reflux disease) Esophagitis presence: esophagitis presence not specified Qualified Code(s): K21.9 - Gastro-esophageal reflux disease without esophagitis
[2020-02-16] MEDS ORDERED: ATORVASTATIN 40 MG TAB PO SCH (21:00)
[2020-02-17] MEDS: INSULIN ASPART 100 UNITS/ML 3 ML PEN SC SCH ×5 (01:05→17:49)
[2020-02-17] MEDS: LEVOTHYROXINE SODIUM 50 MCG TABLET PO SCH (05:19)
[2020-02-17 06:21] LABS: Hematocrit (blood only) 23.9 % (42-52); Hemoglobin 8.1 g/dL (14.0-18.0); Mean Corpuscular Hemoglobin 30.2 pg (25-34); Mean Corpuscular Hgb Conc 33.9 g/dL (32-36); Mean Corpuscular Volume 89.2 fL (80-100); Mean Platelet Volume 9.6 fL (7.4-10.4); Platelet Count 163 K/uL (130-400); RDW Coefficient of Variation 12.9 % (11.5-14.5); RDW Standard Deviation 41.8 fL (36.4-46.3); Red Blood Count 2.68 M/uL (4.7-6.1); White Blood Count 3.79 K/uL (4.8-10.8)
[2020-02-17 07:03] LABS: BUN Creatinine Ratio 11.3 (10-20); Calcium 8.5 mg/dl (8.5-10.1); Creatinine Clr Calc Pharmacy 23.9 ml/min; Est GFR (African American) 14.9; Est GFR (Non-African American) 12.9; Potassium 3.4 mmol/L (3.5-5.1)
[2020-02-17] MEDS: BUMETANIDE 1 MG TAB PO SCH ×2 (08:48→17:36)
[2020-02-17] MEDS: carvediloL 12.5 MG TAB PO SCH (08:48)
[2020-02-17] MEDS: DULoxetine HCL 60 MG CAP PO SCH (08:49)
[2020-02-17] MEDS: PANTOprazole 40 MG TAB PO SCH ×2 (08:49→17:36)
[2020-02-17] MEDS: GABAPENTIN 300 MG CAP PO SCH (08:50)
[2020-02-17] MEDS ORDERED: INSULIN DETEMIR FLEXPEN/FLEX TOUCH 100 UNITS/ML 3ML SQ SCH ×2 (09:00)
--- NOTE | 2020-02-17 09:34 | Pharmacy Report ---
Pharmacy Glycemic Short Note 2 - Date of Service February 17, 2020 - Glycemic Short BSG Results (Last 24 hours): 02/16/20 02/16/20 02/16/20 11:34 11:59 17:21 Glucose 289 H POC Glucose 273 H 269 H 02/16/20 02/17/20 02/17/20 20:37 01:02 05:49 Glucose 182 H POC Glucose 275 H 228 H 02/17/20 08:16 Glucose POC Glucose 235 H OUTPATIENT ANTIDIABETIC REGIMEN: * Levemir 30 units SC HS + Novolog 100 units SC TIDM (max 300 units/day) * A1c = 11.5% (02/16/2020) ASSESSMENT: 02/16: * Ventura received 137 units of insulin yesterday * 60 units bolus + 77 units bolus * BSGs were uncontrolled at [phone] mg/dL * Fasting BSG this morning is uncontrolled at 235 mg/dL * Will increased basal insulin regimen by ~20% today 02/15: * 39 yo M with T1DM and ESRD on HD admitted secondary to bleeding around dialysis catheter site. A1c of 11.5% shows poor outpatient control of T1DM on Levemir + Novolog. Patient reports symptomatic hypoglycemia with BSGs < 200 mg/dL so outpatient provider has been trying to increase insulin doses gradually. HbA1c is actually improved from previous in September 2019; however, given ESRD, HbA1c is unlikely to be reliable. * Ventura received 30 units of basal insulin and 47 units of bolus insulin yesterday * Bolus insulin consisted of 10 unit IV bolus + 30 units regular insulin SC + 7 units Novolog SC * BSGs yesterday were: [phone]->[phone] mg/dL * Overnight checks were: 350-329-277 mg/dL * Fasting BSG this AM was still significantly elevated at 285 mg/dL. * Based on previous admission data and weight/stress of 3, I have increased Ventura to 30 units of basal insulin BID as well as tightened his Novolog parameters this morning. * Lunchtime BSG was 273 mg/dL. * Will tighten CF/CR further based on previous admission data. PLAN FOR INPATIENT GLYCEMIC CONTROL: * Basal insulin - increased * Lantus 35 units SQ BID * Bolus insulin * NovoLog per scale ACHS or Q6hrs while NPO * Goal Range: Low 110 mg/dL - High 140 mg/dL * Correction Factor: 10 mg/dL/unit * Nutritional / Prandial insulin per carb ratio of 1 unit per 3 grams CHO consumed PLAN FOR DISCHARGE: * HbA1c = 11.5% from this admission. This is actually improved from previous HbA1c in September of this year. Goal HbA1c for this patient would be < 7% given age and comorbidities. * Patient will likely require an increase in basal insulin dose prior to discharge.
--- NOTE | 2020-02-17 11:56 | Nephrology Progress Note ---
Date of Service February 17, 2020 Assessment & Plan (1) ESRD (end stage renal disease): End-stage renal disease on hemodialysis presented with thrombosed AV fistula, had tunneled dialysis catheter. Admitted with tunneled dialysis catheter bleeding site, missed dialysis and hyperglycemia. Bleeding from TDC stopped. -- dialysis today as his regular schedule -- low K diet -- Eventually he will need another fistula in right upper extremity, will need to follow up with vascular surgery as an outpatient. -- right arm nephrology precaution, fluid restriction to less than 1 L per day, low-potassium diet. Will follow (2) Thrombosis of arteriovenous dialysis fistula: (3) Central venous catheter in place: (4) Diabetes: Admission and Anticipated Discharge Date Admission Date: February 15, 2020 Subjective Juan Jose was sen and examined in his room this am. Doing well, denies any symptoms. BP low but asymptomatic. Review of Systems Review of Systems: All systems reviewed & are unremarkable except as noted in HPI & below Physical Exam Constitutional: well developed and well nourished; no acute distress Respiratory: normal respiratory effort, lungs clear to auscultation Cardiovascular: RRR, no murmur, no edema Neurologic: moves all extremities and awake; not confused Psychiatric: A+Ox3, euthymic affect Results & Data ([facility]) Vital Signs (Past 12 Hours) Vital Signs Temp Pulse Pulse Pulse Resp BP BP 02/17/20 11:20 86 96/60 L 02/17/20 11:00 85 94/66 L 02/17/20 10:40 86 109/73 02/17/20 10:20 84 119/75 02/17/20 10:05 36.9 C 84 02/17/20 07:48 36.4 C L 88 16 148/87 H Pulse Ox 02/17/20 11:20 02/17/20 11:00 02/17/20 10:40 02/17/20 10:20 02/17/20 10:05 02/17/20 07:48 96 PG Care Time/CCT Total # of Minutes Spent Total Time Spent with Patient: Total time spent is greater than 50% in coordination of care (as documented) at patient's floor/unit and/or counseling patient: Coding Level of Care Code 04523 Subseq Hosp Care Lvl 2 Diagnoses ESRD (end stage renal disease) N18.6 Thrombosis of arteriovenous dialysis fistula T82.868A Encounter type: initial encounter Central venous catheter in place Z78.9 Diabetes E10.22; N18.6; Z99.2 Chronic kidney disease stage: on chronic dialysis Diabetes mellitus complication detail: with chronic kidney disease Diabetes mellitus complication status: with kidney complications Diabetes mellitus type: type 1 (1) Thrombosis of arteriovenous dialysis fistula Encounter type: initial encounter Qualified Code(s): T82.868A - Thrombosis due to vascular prosthetic devices, implants and grafts, initial encounter (2) Diabetes Chronic kidney disease stage: on chronic dialysis Diabetes mellitus complication detail: with chronic kidney disease Diabetes mellitus complication status: with kidney complications Diabetes mellitus type: type 1 Qualified Code(s): E10.22 - Type 1 diabetes mellitus with diabetic chronic kidney disease; N18.6 - End stage renal disease; Z99.2 - Dependence on renal dialysis
--- NOTE | 2020-02-17 15:44 | Discharge Summary ---
Date of Service February 17, 2020 Admission HPI Per Admitting Provider Mr. Snell is a 39yo uncontrolled Type 1 diabetic with a PMHx significant for diabetic retinopathy, neuropathy and nephropathy on dialysis, HTN, HLD, hypothyroidism, GERD, and depression who was admitted for hyperglycemia w/o a gap and bleeding related to line placement today. Pt was seen earlier today with a nonfunctioning dialysis catheter after he states it had been sluggish from last week. States last Saturday, it was sluggish during dialysis but seemed to work fine on Saturday. However, it did not work at all on Saturday. He had a permcath inserted earlier in the day by Dr. Combs and was noted to have high sugars in the OR. He started having bleeding from the site of insertion in the postop area which continued in the ED after transfer for hyperglycemia and eventually subsided with gel foam dressings. He states that he follows with Dr. Fuller of Cardiology and Dr. Miranda of nephrology. He has had fistula and eye surgeries in the past. Mom had lymphoma and cancer of "her lady parts" and dad had HTN and an SC. Brother is a type 2 diabetic, also on dialysis but controlling his DM with diet. Allergic to Lisinopril. Lives at home in [place] with his brother. Has never smoked, has an alcoholic drink rarely, and no recreational drug use. States he exercises by walking up and down stairs. Does not work, on disability. Principal Diagnosis bleeding catheter, hyperglycemia Discharge Exam Constitutional WD/WN, vitals as above Respiratory normal respiratory effort, lungs clear to auscultation Cardiovascular RRR, no murmur, no edema Gastrointestinal (Abdomen) normal bowel sounds, soft, nontender, no hepatosplenomegaly Musculoskeletal no cyanosis or clubbing, extremities motor strength 5/5 Skin no rashes, warm and dry Neurologic moves all extremities and awake Psychiatric A+Ox3, euthymic affect Discharge Data Allergies Allergy/AdvReac Type Severity Reaction Status Date / Time lisinopril AdvReac Intermediate COUGH Verified 02/15/20 07:28 Consultations 02/15/20 20:08 ED Decision to Admit Stat 02/16/20 02:43 Consult Nephrology Routine 02/16/20 08:10 Consult Vascular Surgery Routine Procedures Performed Operation Date: 02/15/20 09:55 Actual Procedures p Perm Catheter Placement, Left Internal Jugular Approach, Ultrasound for Localization of Left Internal Jugular Vein, Fluoroscopy for Positioning, Moderate Sedation from [id number](Right) - Poli Combs MD Ordered Studies 02/15/20 09:15 EV cvc insrt tunnel wo prt/ui ux web developer Stat US EV guide vascular access Routine Hospital Course (1) Vascular dialysis catheter in place: Placed 02/14 with subsequent bleeding now controlled, no further bleeding Consulted vascular surgery -t no surgical interventions necessary at this time (2) ESRD (end stage renal disease): Dialysis today performed urgently due to no dialysis for 4 days on 02/15 and then again on 02/16 Nephrology consulted (3) Type 1 diabetes: With hyperglycemia on admission with bsgs over 400, No anion gap -Last hgba1c from September 2019 is 12.3, repeat is 11.5 here -pt states that he follows no particular diet and has the philosophy of not denying himself anything -pharmacy consulted for glycemic managment Diabetic education Discussed home regimen with his endocrinology provider as well as pharmacy. Mr. Snell takes anywhere from 40 units to 100 units depending on if his meal is "high carb". He does not count carbs or follow a sliding scale and takes 30 units of Lantus at home, so anywhere from 150 units 330 units per day. He also does not take his blood sugars very frequently so it's hard to know what he's actually running in a day but obviously with his A1c where it is, he is usually quite hyperglycemic. He becomes symptomatic with hypoglycemia if he is below 200 and his student union consultant was trying to increase very slowly to avoid this. Last increase was from 20 units to 30 units of Levemir. I will increase his Levemir to 50 units per day. I have cautioned him that he needs to check his blood sugars before meals and before bed with this adjustment to make sure he is not dropping too low although with the amount of insulin he requires in a day and still maintaining and A1c of 11.5%, becoming hypoglycemic is probably not a high risk for him. He will follow up with his endocrinology provider in two days. (4) Hypertension: Continue home carvedilol (5) Hypothyroidism: continue home levothyroxine 50mcg daily (6) GERD (gastroesophageal reflux disease): Continue home pantoprazole (7) Diabetic peripheral neuropathy: -continue home duloxetine 60mg daily -continue home gabapentin 600mg BID (8) Edema: continue bumex 2mg (9) Acute blood loss anemia: combined with anemia of chronic disease secondary to perm cath bleeding Hgb stable today (10) DVT prophylaxis: Hold chemoprophylaxis due to bleeding SCDs Total Time Total Time Spent Total Time Spent (In Minutes): greater than 30 minutes Discharge Plan Discharge Items Patient Disposition: Home - Self-Care Reason For Visit: HYPERGLYCEMIA W/O GAP Discharge Diagnosis: Thrombosed left upper arm fistula Condition on Discharge: Good Activity: Per Instructions section Non-emergency contact: Primary Care Provider Call non-emergency contact if: your temperature is above 101.5, your wound has increased redness, your wound has increased drainage and your wound pain has increased Follow-up/Referrals: Olya Slater CRNP, PITO [Nurse Practitioner] - (Please follow up with [facility] endocrinology on Saturday NO APPTS AVAILABLE SATURDAY; [facility]uevas WILL SEND TEXT TO [facility] AND THEY WILL CALL PT WITH FOLLOW UP.) Maki Peterson MD [Primary Care Provider] - 02/19/20 2:00 pm (PATIENT WILL NEED TO WEAR A MASK TO APPT.) Poli Combs MD [Physician] - (DR LISSA CLARK'S BENEFIT SPECIALIST WILL CALL PATIENT WITH HOSPITAL F/U VISIT.) Diet: Carb Consistent or DM2 and Dialysis Renal Addtl Attending Provider Instructions: (1) Vascular dialysis catheter in place: ACTIVITY RECOMMENDATIONS: Take this form with you to dialysis and give to the dialysis nurses. May use PermCath for dialysis. SPECIAL CARE INSTRUCTIONS: Call your doctor if: * Temperature above 101 degrees * Pain not relieved by pain medicine ordered * There is increased drainage or redness from any incision * You have any unanswered questions or concerns. (2) ESRD (end stage renal disease): Dialysis performed 02/16. Please resume your usual dialysis schedule (3) Type 1 diabetes: With hyperglycemia on admission with blood sugars over 400 Check you blood sugars before meals and before bed. Please call your student union consultant if you are consistently running over 250 or if you have any values below 70. Increase your basal insulin (Levemir) to 50 units daily. FOR TONIGHT: TAKE 15 UNITS OF LEVEMIR as you already had 35 units this morning Tomorrow night you will take your increased dose of 50 units. Pending Studies at Discharge: No Stand-Alone Forms: Anesthesia/Sedation, Adult, [facility] Medications and DC Order Prescriptions: Continued pantoprazole 40 mg tablet,delayed release (DR/EC) 40 mg PO QAM Qty: 90 RF: 3 atorvastatin [Lipitor] 80 mg tablet 80 mg PO HS Qty: 30 RF: 5 bumetanide 2 mg tablet See Rx Instructions .ROUTE .COMPLEX Qty: 270 RF: 3 levothyroxine 50 mcg tablet 50 mcg PO DAILY Qty: 30 RF: 5 carvedilol 12.5 mg tablet 12.5 mg PO BID Qty: 180 RF: 1 duloxetine 60 mg capsule,delayed release(DR/EC) 60 mg PO DAILY Qty: 30 RF: 5 gabapentin 300 mg capsule 600 mg PO BID Qty: 120 RF: 5 insulin aspart U-100 [Novolog Flexpen U-100 Insulin] 100 unit/mL (3 mL) insulin pen 300 unit SQ DAILY Qty: 90 RF: 3 (DME) pen needle, diabetic [Comfort EZ Pen Pateros] 29 gauge x 1/2" needle See Rx Instructions .ROUTE .MEDSUPPLY Qty: 400 RF: 3 (DME) OneTouch Verio test strips Strip See Rx Instructions .ROUTE .MEDSUPPLY Qty: 400 RF: 3 (DME) blood-glucose meter [OneTouch Verio Flex meter] Misc See Rx Instructions .ROUTE .MEDSUPPLY Qty: 1 RF: 0 calcium acetate 667 mg tablet 667 mg PO .COMPLEX RF: 0 aspirin [Adult Low Dose Aspirin] 81 mg tablet,delayed release (DR/EC) 81 mg PO DAILY Qty: 90 RF: 3 (DME) lancets [OneTouch Delica Lancets] 33 gauge misc See Rx Instructions .ROUTE .MEDSUPPLY Qty: 400 RF: 3 Changed Levemir FlexTouch U-100 Insuln 100 unit/mL (3 mL) insulin pen 50 unit SQ HS Qty: 9 RF: 3 No Action (DME) Ketostix Strip See Rx Instructions .ROUTE .MEDSUPPLY Qty: 100 RF: 3 Discharge Orders: Discharge Order (Routine); Ordered 02/17/20 Ordered By: Qiana Kwan/Other Patient Handouts: DVT Post Op Prevention Admission Data Admit Date/Time: 02/15/20 21:21 Attending Provider: Lee Ayala Admit Provider: Linnette Vargas Primary Care Provider: Maki Peterson Other Providers: Esther Cassidy ; Landry Miranda ; Poli Combs Other Interventions: Discharge Summary Assessment (RN) Last Done: 02/17/20 17:22 Supervising Physician Co-Signing Physician Notes Patient seen and examined on the day of discharge. I agree with the discharge summary by Qiana HIGHTOWER. I have reviewed the chart including labs, imaging and plans for discharge. patient doing well, had HD yesterday, tolerated well sugars are elevated in the 200's, patient says that he has had DM for 30 years, sugars are always high appreciate recommendations from endocrinology, he has an appointment coming up - Bleeding HD catheter: no intervention needed per vascular - ESRD on HD: received HD while here - DM type I: increased basal insulin to 60 units, continue 100 units of rapid acting with meals, follow up with endocrinology Coding Level of Care Code D/C Day Management >30 mins Diagnoses Vascular dialysis catheter in place Z99.2 ESRD (end stage renal disease) N18.6 Type 1 diabetes E10.9 Hypertension I10 Hypertension type: unspecified Hypothyroidism E03.9 Hypothyroidism type: unspecified GERD (gastroesophageal reflux disease) K21.9 Esophagitis presence: esophagitis presence not specified Diabetic peripheral neuropathy E11.42 Edema R60.9 Acute blood loss anemia D62 DVT prophylaxis Z29.9
== END 2020-02-17 18:09 | disposition home or self-care (01) ==
LOC: ED 06:35 → 3N 09:51 → ASU 09:51 → ED 09:51 → ASU 14:35 → SUATTDRO 21:21 → 3E 02-16 10:03

== ENCOUNTER 2020-11-25 05:25 | Inpatient (IN) ==
[2020-11-25 05:55] LABS: Basophils # (auto) 0.01 K/uL (0-0.2); Basophils % (auto) 0.1 %; Eosinophils # (auto) 0.21 K/uL (0-0.5); Eosinophils % (auto) 2.3 %; Hematocrit (blood only) 27.4 % (42-52); Hemoglobin 8.9 g/dL (14.0-18.0); Immature Granulocytes # (auto) 0.02 K/uL (0.00-0.02); Immature Granulocytes % (auto) 0.2 %; Lymphocytes # (auto) 0.69 K/uL (1.2-3.4); Lymphocytes % (auto) 7.6 %; Mean Corpuscular Hemoglobin 30.7 pg (25-34); Mean Corpuscular Hgb Conc 32.5 g/dL (32-36); Mean Corpuscular Volume 94.5 fL (80-100); Mean Platelet Volume 10.5 fL (7.4-10.4); Monocytes # (auto) 0.47 K/uL (0.11-0.59); Monocytes % (auto) 5.2 %; Neutrophils # (auto) 7.62 K/uL (1.4-6.5); Neutrophils % (auto) 84.6 %; Platelet Count 215 K/uL (130-400); RDW Coefficient of Variation 13.6 % (11.5-14.5); RDW Standard Deviation 47.3 fL (36.4-46.3); White Blood Count 9.02 K/uL (4.8-10.8)
--- NOTE | 2020-11-25 06:30 | Emergency Department Note ---
Impression & Plan Acute hyponatremia, Hyperglycemia due to diabetes mellitus Admit to the [facility] ED Provider Note NAME: VIJAYA HAMILTON AGE: 40 SEX: M ARRIVES VIA: Ambulance INFORMANT: Patient ED PROVIDER(S): Lizbeth Spivey DO CHIEF COMPLAINT: Generalized body pain and dizziness PLAN: Disposition: Mid to the [facility] service Condition: Guarded MEDICAL DECISION MAKING: This is a 40-year-old male patient with uncontrolled diabetes who presents to the emergency department with multiple complaints including dizziness, neuropathy, high blood sugar readings, and diffuse body pain. Laboratory studies reveal blood sugar greater than 700 and significant hyponatremia. Patient was due to have dialysis this morning but came here because please refer to HPI, at least 10 systems reviewed and otherwise negative. The significant pain that he was having. [facility] for further management. Triage Nursing notes reviewed and agree with them. Prior medical records reviewed Vital Signs: reviewed and remarkable for hypertension Differential diagnosis: Sepsis, dehydration, electrolyte abnormality, DKA, ER treatment provided: IV normal saline hydration Diagnostics interpreted by me: ECG: Normal Sinus rhythm at 98. There is no ST segment elevation or signs of ischemia. There is no ectopy Cardiac Monitoring: Normal sinus rhythm at a rate of 97 Laboratory studies: See below HPI: 40/M arrives for evaluation of generalized pain and dizziness. The patient was leaving his house to go to dialysis this morning when he had generalized body pain and dizziness. Patient explains that he has a cold sensation all over his body and significant dizziness that he was unable to get in his family's car. ROS: See above HPI for pertinent positives & negatives. A total of 10 systems reviewed and were otherwise negative. PAST MEDICAL HISTORY:See Below PAST SURGICAL HISTORY:See Below FAMILY HISTORY:See Below SOCIAL HISTORY:See Below HOME MEDICATIONS:See Below ALLERGIES:See Below VITALS:See Below PHYSICAL EXAMINATION: HEENT: Head - normocephalic and atraumatic. Pupils are equal, round, and reactive to light. Extraocular eye muscles are intact, and sclera are anicteric. Nose - moist nasal mucosa without discharge. Mouth - moist buccal mucosa. Oropharynx is nonerythematous and there is no tonsillar exudate or edema noted. Neck: Supple; no JVD, nuchal rigidity, cervical lymphadenopathy, or auscultated bruits. Heart: Regular rate and rhythm. There is a normal S1 and S2 with no murmurs, clicks, or gallops appreciated. Lungs: Clear to auscultation bilaterally with no wheezes, rales, or rhonchi. Abdomen: Soft, completely nontender, nondistended, with good bowel sounds. T here are no palpable pulsatile masses or hepatosplenomegaly. There is no guarding, rigidity, or rebound noted. Extremities: No evidence of cyanosis, clubbing, or edema. There are easily palpable peripheral pulses. Skin: warm and dry with good turgor and no rashes. ED COURSE: Times/Reassessments: 0530: Patient was evaluated in room a 10. A complete history and physical was performed. Previous electronic medical records were reviewed. An IV lock was initiated and labs were drawn as above. The BSG was obtained which gave a reading of greater than 600. A twelve-lead EKG was obtained as described above. An order was placed for continuous cardiac monitoring and the patient was in a normal sinus rhythm at a rate of 97. I reevaluated the patient at this time. He was noted to be significantly hyponatremic. I ordered a bolus of normal saline solution and will have [facility] I discussed the case with Dr. Glover. An ABG will be ordered. Lizbeth Spivey DO Past Med/Surg History Medical History Anemia Chronic venous insufficiency Depression Diabetic peripheral neuropathy associated with type 1 diabetes mellitus Diabetic retinopathy Erectile dysfunction ESRD (end stage renal disease) requiring hemodialysis. MWF at [facility]. GERD (gastroesophageal reflux disease) Well controlled and stable H/O febrile seizure as a child (every year until he was 11 years old) no problems since. High cholesterol Hypertension Hypothyroidism Port-A-Cath in place chest area dialysis Thrombosis of arteriovenous dialysis fistula (~02/15/20) Surgical History H/O detached retina repair History of esophagogastroduodenoscopy (EGD) S/P arteriovenous (AV) fistula creation left side, unable to use Family History Mother Diabetes Coronary heart disease Hypertension Father Coronary heart disease Hypertension Brother Coronary heart disease Kidney disease Uncle Colorectal cancer Grandmother Diabetes Aunt Diabetes Unknown Dyslipidemia Other Cancer No family history of adverse response to anesthesia Social History Smoking Status: Never smoker Second Hand Exposure: No; Hx Alcohol Use: No Hx Substance Use: No Preferred Language: Citizen Of [place] Communication Ability: Effective Visual Impairment: No Limitations Hearing Ability: Normal Maintenance Groundman Required: No Beliefs That Will Affect Care: None marital status: Single Current Living Situation: Alone Current Living Situation Comment: apartment lives with brother 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" Feels Safe at Home: Yes Dental Care, Regularly: No Physical Activity Frequency: Does not Exercise Seatbelt Use: always Sunscreen Use: No Assistive Devices: None Allergies Allergies Allergy/AdvReac Type Severity Reaction Status Date / Time lisinopril AdvReac Intermediate COUGH Verified 11/25/20 08:10 Home Meds Home Medications Medication Instructions Recorded Confirmed calcium acetate 667 mg tablet 667 mg PO TIDM tab 07/14/19 11/25/20 (Calphron) levothyroxine 50 mcg tablet 50 mcg PO PM 03/23/20 11/25/20 (Synthroid) bumetanide 2 mg tablet See Rx Instructions .ROUTE .COMPLEX 11/02/20 11/25/20 diphenhydramine HCl 25 mg tablet 25 mg PO DIRECTED 11/02/20 11/25/20 (Benadryl Allergy) duloxetine 60 mg capsule,delayed 60 mg PO QAM 11/02/20 11/25/20 release (Cymbalta) carvedilol 12.5 mg tablet (Coreg) 6.25 mg PO BID 11/25/20 11/25/20 gabapentin 300 mg capsule 600 mg PO BID 11/25/20 11/25/20 (Neurontin) pantoprazole 40 mg tablet,delayed 40 mg PO QAM 11/25/20 11/25/20 release (Protonix) vitamin B complex and vitamin C 1 cap PO 3XWK 11/25/20 11/25/20 no.20-folic acid 1 mg capsule (Triphrocaps) Previous Rx's Medication Instructions Recorded OneTouch Delica Lancets 33 gauge #400 ea NS 10/16/19 (lancets) blood sugar diagnostic (OneTouch #400 ea 01/29/20 Verio test strips) blood-glucose meter (OneTouch #1 ea 01/29/20 Verio Flex meter) pen needle, diabetic 29 gauge x #400 ea 01/29/20 1/2" (Comfort EZ Pen [place]) acetone (urine) test (Ketostix) #100 ea 02/18/20 atorvastatin 80 mg tablet (Lipitor) 80 mg PO HS #30 tab 05/30/20 insulin aspart U-100 100 unit/mL 300 unit SQ DAILY #90 ml 11/08/20 (3 mL) subcutaneous pen (Novolog Flexpen U-100 Insulin aspart) Levemir FlexTouch U-100 Insuln 100 50 unit SQ HS 30 Days #15 ml NS 11/14/20 unit/mL (3 mL) subcutaneous pen (insulin detemir U-100) aspirin 81 mg tablet,delayed 81 mg PO DAILY #30 tab 11/26/20 release Results & Data (ED) Vital Signs Vital Signs - 24 hr 11/25/20 05:31 11/25/20 05:50 Temperature 37.2 C Temperature Source Oral Pulse Rate 98 H 97 H Respiratory Rate 18 16 Respiratory Effort / Characteristics Non-Labored Respiratory Depth Normal Respiratory Pattern Regular Blood Pressure 171/82 H Blood Pressure Mean 111 Pulse Oximetry 96 97 Oxygen Delivery Method Room Air Room Air Sepsis Recent Fever Within 48 Hours No Sepsis New/Unexplained Change in Mental Status No Sepsis Action Taken by Nursing No Action Required Laboratory Data Result diagrams: 11/25/20 05:40 11/26/20 12:37 Lab Results 11/25/20 11/25/20 11/25/20 Range/Units 05:29 05:40 05:40 WBC 9.02 (4.8-10.8) K/uL RBC 2.90 L (4.7-6.1) M/uL Hgb 8.9 L (14.0-18.0) g/dL POC Hgb (14.0-18.0) g/dl Hct 27.4 L (42-52) % POC Hct (42-52) % MCV 94.5 (80-100) fL MCH 30.7 (25-34) pg MCHC 32.5 (32-36) g/dL RDW Std Deviation 47.3 H (36.4-46.3) fL RDW Coeff of Yuki 13.6 (11.5-14.5) % Plt Count 215 (130-400) K/uL MPV 10.5 H (7.4-10.4) fL Immature Gran % (Auto) 0.2 % Neut % (Auto) 84.6 % Lymph % (Auto) 7.6 % [place] % (Auto) 5.2 % Eos % (Auto) 2.3 % Baso % (Auto) 0.1 % Neut # (Auto) 7.62 H (1.4-6.5) K/uL Lymph # (Auto) 0.69 L (1.2-3.4) K/uL [place] # (Auto) 0.47 (0.11-0.59) K/uL Eos # (Auto) 0.21 (0-0.5) K/uL Baso # (Auto) 0.01 (0-0.2) K/uL Immature Gran # (Auto) 0.02 (0.00-0.02) K/uL POC Sodium (135-144) mmol/L Sodium 121 L (136-145) mmol/L POC Potassium (3.3-5.0) mmol/L Potassium (3.5-5.1) mmol/L POC Chloride (101-112) mmol/L Chloride 87 L (98-107) mmol/L Carbon Dioxide 20 L (21-32) mmol/L POC Total CO2 (24-31) mmol/L Anion Gap 14.0 H (3-11) POC Anion Gap (16-25) mmol/L POC BUN (7-18) mg/dl BUN 45 H (7-18) mg/dl Creatinine 5.95 H* (0.6-1.4) mg/dl POC Creatinine (0.6-1.3) mg/dl Est Cr Clr Drug Dosing Not Reportable Est GFR ( Amer) 12.7 ml/min Est GFR (Non-Af Amer) 10.9 ml/min BUN/Creatinine Ratio 7.7 L (10-20) Glucose 830 H* (70-99) mg/dl POC Glucose > 600 H* (70-99) mg/dl POC Glucose (other) (70-99) mg/dl Calcium 8.9 (8.5-10.1) mg/dl POC Ioniz Calcium Deandra (1.12-1.32) mmol/l Total Bilirubin 1.3 H (0.2-1) mg/dl AST (15-37) U/L ALT 21 (12-78) U/L Alkaline Phosphatase 176 H (45-117) U/L Total Protein 7.4 (6.4-8.2) gm/dl Albumin 2.8 L (3.4-5.0) gm/dl Globulin 4.6 H (2.5-4.0) gm/dl Albumin/Globulin Ratio 0.6 L (0.9-2) Beta-Hydroxybutyric Acd (0.2-2.81) mg/dl TSH 4.210 (0.300-4.500) uIu/ml 11/25/20 Range/Units 06:49 WBC (4.8-10.8) K/uL RBC (4.7-6.1) M/uL Hgb (14.0-18.0) g/dL POC Hgb 7.8 L (14.0-18.0) g/dl Hct (42-52) % POC Hct 23 L (42-52) % MCV (80-100) fL MCH (25-34) pg MCHC (32-36) g/dL RDW Std Deviation (36.4-46.3) fL RDW Coeff of Yuki (11.5-14.5) % Plt Count (130-400) K/uL MPV (7.4-10.4) fL Immature Gran % (Auto) % Neut % (Auto) % Lymph % (Auto) % [place] % (Auto) % Eos % (Auto) % Baso % (Auto) % Neut # (Auto) (1.4-6.5) K/uL Lymph # (Auto) (1.2-3.4) K/uL [place] # (Auto) (0.11-0.59) K/uL Eos # (Auto) (0-0.5) K/uL Baso # (Auto) (0-0.2) K/uL Immature Gran # (Auto) (0.00-0.02) K/uL POC Sodium 122 L (135-144) mmol/L Sodium (136-145) mmol/L POC Potassium 4.6 (3.3-5.0) mmol/L Potassium (3.5-5.1) mmol/L POC Chloride 87 L (101-112) mmol/L Chloride (98-107) mmol/L Carbon Dioxide (21-32) mmol/L POC Total CO2 20 L (24-31) mmol/L Anion Gap (3-11) POC Anion Gap 20.0 (16-25) mmol/L POC BUN 48 H (7-18) mg/dl BUN (7-18) mg/dl Creatinine (0.6-1.4) mg/dl POC Creatinine 6.3 H* (0.6-1.3) mg/dl Est Cr Clr Drug Dosing Est GFR ( Amer) ml/min Est GFR (Non-Af Amer) ml/min BUN/Creatinine Ratio (10-20) Glucose (70-99) mg/dl POC Glucose (70-99) mg/dl POC Glucose (other) > 700 H* (70-99) mg/dl Calcium (8.5-10.1) mg/dl POC Ioniz Calcium Deandra 1.18 (1.12-1.32) mmol/l Total Bilirubin (0.2-1) mg/dl AST (15-37) U/L ALT (12-78) U/L Alkaline Phosphatase (45-117) U/L Total Protein (6.4-8.2) gm/dl Albumin (3.4-5.0) gm/dl Globulin (2.5-4.0) gm/dl Albumin/Globulin Ratio (0.9-2) Beta-Hydroxybutyric Acd (0.2-2.81) mg/dl TSH (0.300-4.500) uIu/ml Administered Medications Acetaminophen (Acetaminophen 325 Mg Tab) 650 mg PO TID [facility] Stop: 12/26/20 08:59 Last Admin: 11/26/20 20:10 Dose: 650 mg Documented by: [id number] Admin: 11/26/20 17:11 Dose: 650 mg Documented by: [id number] Admin: 11/26/20 08:45 Dose: 650 mg Documented by: [id number] Atorvastatin Calcium (Atorvastatin 40 Mg Tab) 80 mg PO HS [facility] Stop: 12/25/20 20:59 Last Admin: 11/26/20 20:11 Dose: 80 mg Documented by: [id number] Admin: 11/25/20 20:14 Dose: 80 mg Documented by: [id number] Calcium Acetate (Calcium Acetate 667 Mg Cap/Tab) 667 mg PO TIDM [facility] Stop: 12/25/20 16:59 Last Admin: 11/26/20 08:45 Dose: 667 mg Documented by: [id number] Admin: 11/25/20 16:56 Dose: 667 mg Documented by: [id number] Carvedilol (Carvedilol 6.25 Mg Tab) 6.25 mg PO BID [facility] Stop: 12/25/20 15:51 Last Admin: 11/26/20 20:11 Dose: 6.25 mg Documented by: [id number] Admin: 11/26/20 08:45 Dose: 6.25 mg Documented by: [id number] Admin: 11/25/20 20:15 Dose: 6.25 mg Documented by: [id number] Admin: 11/25/20 16:55 Dose: 6.25 mg Documented by: [id number] Duloxetine HCl (Duloxetine Hcl 60 Mg Cap) 60 mg PO QAM [facility] Stop: 12/25/20 15:51 Last Admin: 11/26/20 08:46 Dose: 60 mg Documented by: [id number] Admin: 11/25/20 16:56 Dose: 60 mg Documented by: [id number] Gabapentin (Gabapentin 600 Mg Tab) 600 mg PO BID [facility] Stop: 12/25/20 15:51 Last Admin: 11/26/20 20:12 Dose: 600 mg Documented by: [id number] Admin: 11/26/20 08:45 Dose: 600 mg Documented by: [id number] Admin: 11/25/20 20:15 Dose: 600 mg Documented by: [id number] Admin: 11/25/20 16:56 Dose: 600 mg Documented by: [id number] Insulin Detemir (Insulin Detemir Flexpen/Flex Touch 100 Units/Ml 3ml) 50 units SC HS [facility]; Protocol Stop: 12/26/20 20:59 Last Admin: 11/26/20 20:16 Dose: 50 units Documented by: [id number] Cosigned by: [id number] Levothyroxine Sodium (Levothyroxine Sodium 50 Mcg Tablet) 50 mcg PO PM [facility] Stop: 12/25/20 20:59 Last Admin: 11/26/20 20:12 Dose: 50 mcg Documented by: [id number] Admin: 11/25/20 22:12 Dose: 50 mcg Documented by: [id number] Pantoprazole Sodium (Pantoprazole 40 Mg Tab) 40 mg PO QAM [facility] Stop: 12/25/20 15:51 Last Admin: 11/26/20 09:09 Dose: 40 mg Documented by: [id number] Admin: 11/25/20 16:55 Dose: 40 mg Documented by: [id number] Discontinued Medications Epoetin Eloy (Epoetin Eloy 10,000 Units/Ml Vial) 10,000 units IV 1330 ONE Stop: 11/25/20 13:31 Last Admin: 11/25/20 16:15 Dose: 10,000 units Documented by: [id number] Hydromorphone HCl (Hydromorphone Inj 1 Mg/Ml Syringe) 1 mg IV NOW STA Stop: 11/25/20 06:54 Last Admin: 11/25/20 07:08 Dose: 1 mg Documented by: [id number] Sodium Chloride (Nss 1000ml) 1,000 mls @ 999 mls/hr IV .Q1H1M ONE Stop: 11/25/20 07:52 Last Infusion: 11/25/20 08:17 Dose: 0 mls/hr Documented by: [id number] Admin: 11/25/20 07:08 Dose: 999 mls/hr Documented by: [id number] Insulin Human Regular 250 (units/ Sodium Chloride) 250 mls @ 0 mls/hr IV .Q0M [facility]; Protocol Stop: 12/25/20 09:35 Last Titration: 11/27/20 02:56 Dose: 0 units/hr, 0 mls/hr Documented by: [id number] Cosigned by: [id number] Titration: 11/27/20 01:10 Dose: 0 units/hr, 0 mls/hr Documented by: [id number] Cosigned by: [id number] Titration: 11/27/20 00:02 Dose: 0 units/hr, 0 mls/hr Documented by: [id number] Cosigned by: [id number] Admin: 11/26/20 23:11 Dose: 7.1 units/hr, 7.1 mls/hr Documented by: [id number] Cosigned by: [id number] Titration: 11/26/20 23:11 Dose: 8.9 units/hr, 8.9 mls/hr Documented by: [id number] Cosigned by: [id number] Admin: 11/26/20 21:50 Dose: Not Given Documented by: [id number] Titration: 11/26/20 21:00 Dose: 8.9 units/hr, 8.9 mls/hr Documented by: [id number] Cosigned by: [id number] Titration: 11/26/20 20:00 Dose: 8.9 units/hr, 8.9 mls/hr Documented by: [id number] Cosigned by: [id number] Titration: 11/26/20 19:16 Dose: 8.9 units/hr, 8.9 mls/hr Documented by: [id number] Cosigned by: [id number] Titration: 11/26/20 18:00 Dose: 8.9 units/hr, 8.9 mls/hr Documented by: [id number] Cosigned by: [id number] Titration: 11/26/20 17:00 Dose: 7.4 units/hr, 7.4 mls/hr Documented by: [id number] Cosigned by: [id number] Titration: 11/26/20 16:23 Dose: 6.2 units/hr, 6.2 mls/hr Documented by: [id number] Cosigned by: [id number] Titration: 11/26/20 15:00 Dose: 5.2 units/hr, 5.2 mls/hr Documented by: [id number] Cosigned by: [id number] Titration: 11/26/20 13:00 Dose: 5.2 units/hr, 5.2 mls/hr Documented by: [id number] Cosigned by: [id number] Titration: 11/26/20 12:30 Dose: 5.2 units/hr, 5.2 mls/hr Documented by: [id number] Cosigned by: [id number] Titration: 11/26/20 12:10 Dose: 0 units/hr, 0 mls/hr Documented by: [id number] Cosigned by: [id number] Titration: 11/26/20 10:00 Dose: 8.6 units/hr, 8.6 mls/hr Documented by: [id number] Cosigned by: [id number] Titration: 11/26/20 09:04 Dose: 8.6 units/hr, 8.6 mls/hr Documented by: [id number] Cosigned by: [id number] Titration: 11/26/20 08:00 Dose: 7.2 units/hr, 7.2 mls/hr Documented by: [id number] Cosigned by: [id number] Titration: 11/26/20 07:00 Dose: 7.2 units/hr, 7.2 mls/hr Documented by: [id number] Cosigned by: [id number] Titration: 11/26/20 06:12 Dose: 7.2 units/hr, 7.2 mls/hr Documented by: [id number] Cosigned by: [id number] Titration: 11/26/20 05:03 Dose: 7.2 units/hr, 7.2 mls/hr Documented by: [id number] Cosigned by: [id number] Titration: 11/26/20 04:18 Dose: 7.2 units/hr, 7.2 mls/hr Documented by: [id number] Cosigned by: [id number] Titration: 11/26/20 03:00 Dose: 7.2 units/hr, 7.2 mls/hr Documented by: [id number] Cosigned by: [id number] Titration: 11/26/20 02:02 Dose: 7.2 units/hr, 7.2 mls/hr Documented by: [id number] Cosigned by: [id number] Titration: 11/26/20 01:11 Dose: 7.2 units/hr, 7.2 mls/hr Documented by: [id number] Cosigned by: [id number] Titration: 11/26/20 00:09 Dose: 7.2 units/hr, 7.2 mls/hr Documented by: [id number] Cosigned by: [id number] Titration: 11/25/20 23:07 Dose: 7.2 units/hr, 7.2 mls/hr Documented by: [id number] Cosigned by: [id number] Titration: 11/25/20 22:06 Dose: 7.2 units/hr, 7.2 mls/hr Documented by: [id number] Cosigned by: [id number] Titration: 11/25/20 21:12 Dose: 7.2 units/hr, 7.2 mls/hr Documented by: [id number] Cosigned by: [id number] Titration: 11/25/20 20:08 Dose: 7.2 units/hr, 7.2 mls/hr Documented by: [id number] Cosigned by: [id number] Titration: 11/25/20 19:00 Dose: 6 units/hr, 6 mls/hr Documented by: [id number] Cosigned by: [id number] Titration: 11/25/20 18:27 Dose: 6 units/hr, 6 mls/hr Documented by: [id number] Cosigned by: [id number] Admin: 11/25/20 16:58 Dose: 5 units/hr, 5 mls/hr Documented by: [id number] Cosigned by: [id number] Parenteral Electrolytes (Normosol-R) 1,000 mls @ 150 mls/hr IV .Q6H40M [facility] Stop: 12/25/20 09:35 Last Admin: 11/25/20 18:00 Dose: Not Given Documented by: [id number] Admin: 11/25/20 17:59 Dose: Not Given Documented by: [id number] Insulin Human Regular 10 units (/ Syringe) 10 mls @ 0.05 mls/min IV NOW ONE Stop: 11/25/20 16:04 Last Admin: 11/25/20 16:31 Dose: Not Given Documented by: [id number] Potassium Chloride/Dextrose/Sod Cl (D5w And 1/2nss + 20meq Kcl) 20 meq in 1,000 mls @ 125 mls/hr IV .Q8H [facility] Stop: 12/25/20 17:29 Last Infusion: 11/26/20 01:16 Dose: 0 mls/hr Documented by: [id number] Admin: 11/25/20 17:58 Dose: 125 mls/hr Documented by: [id number] Insulin Human Regular 10 units (/ Syringe) 10 mls @ 5 mls/min IV NOW ONE Stop: 11/25/20 20:16 Last Admin: 11/25/20 20:35 Dose: 5 mls/min Documented by: [id number] Cosigned by: [id number] Potassium Chloride 20 meq/ (Sodium Chloride) 1,010 mls @ 125 mls/hr IV .Q8H5M [facility] Stop: 12/26/20 00:59 Last Admin: 11/26/20 01:23 Dose: Not Given Documented by: [id number] Potassium Chloride/Sodium Chloride (1/2 Nss + 20meq Kcl 1000ml) 20 meq in 1,000 mls @ 125 mls/hr IV .Q8H [facility] Stop: 12/26/20 01:29 Last Infusion: 11/27/20 02:57 Dose: 0 mls/hr Documented by: [id number] Admin: 11/27/20 01:13 Dose: 125 mls/hr Documented by: [id number] Infusion: 11/27/20 01:11 Dose: 125 mls/hr Documented by: [id number] Admin: 11/26/20 17:11 Dose: 125 mls/hr Documented by: [id number] Infusion: 11/26/20 17:06 Dose: 125 mls/hr Documented by: [id number] Admin: 11/26/20 09:06 Dose: 125 mls/hr Documented by: [id number] Infusion: 11/26/20 09:06 Dose: 125 mls/hr Documented by: [id number] Admin: 11/26/20 01:37 Dose: 125 mls/hr Documented by: [id number] Insulin Aspart (Insulin Aspart 100 Units/Ml 3 Ml Pen) 0 units SC ACHS [facility] Stop: 12/25/20 11:29 Last Admin: 11/26/20 20:14 Dose: 3 units Documented by: [id number] Cosigned by: [id number] Admin: 11/26/20 17:11 Dose: 5 units Documented by: [id number] Cosigned by: [id number] Admin: 11/26/20 12:25 Dose: Not Given Documented by: [id number] Admin: 11/26/20 07:43 Dose: 12 units Documented by: [id number] Cosigned by: [id number] Admin: 11/25/20 21:00 Dose: Not Given Documented by: [id number] Admin: 11/25/20 16:46 Dose: Not Given Documented by: [id number] Admin: 11/25/20 16:33 Dose: Not Given Documented by: [id number] Insulin Aspart (Insulin Aspart 100 Units/Ml 3 Ml Pen) 0 units SC 0215,0415 [facility] Stop: 11/27/20 04:16 Last Admin: 11/27/20 04:09 Dose: 5 units Documented by: [id number] Cosigned by: [id number] Admin: 11/27/20 02:33 Dose: 3 units Documented by: [id number] Cosigned by: [id number] Miscellaneous (Stat Iv Infusion Titration Per Protocol) 1 ea N/A NOW STA Stop: 11/25/20 07:55 Last Admin: 11/25/20 16:30 Dose: Not Given Documented by: [id number] Miscellaneous (Stat Iv Infusion Titration Per Protocol) 1 ea N/A NOW STA Stop: 11/25/20 07:55 Last Admin: 11/25/20 16:30 Dose: Not Given Documented by: [id number] Miscellaneous (Pending 1/2nss+40meq Kcl Ivf) 1 ea N/A Q2H [facility] Stop: 12/25/20 09:35 Last Admin: 11/25/20 18:00 Dose: Not Given Documented by: [id number] Admin: 11/25/20 18:00 Dose: Not Given Documented by: [id number] Admin: 11/25/20 17:59 Dose: Not Given Documented by: [id number] Admin: 11/25/20 17:59 Dose: Not Given Documented by: [id number] Discharge Plan Visit Data Chief Complaint: Illness Stated Complaint: GEN ILLNESS ED Provider: Lizbeth Spivey Discharge Problem: Acute hyponatremia, Hyperglycemia due to diabetes mellitus Patient Disposition: Admitted As Inpatient Discharge Instructions Interventions: ED Discharge Assessment Last Done: 11/25/20 10:36
[2020-11-25 06:39] LABS: Alanine Aminotransferase 21 U/L (12-78); Albumin Globulin Ratio 0.6 (0.9-2); Albumin Level 2.8 gm/dl (3.4-5.0); Alkaline Phosphatase 176 U/L (45-117); BUN Creatinine Ratio 7.7 (10-20); Bilirubin,Total 1.3 mg/dl (0.2-1); Blood Urea Nitrogen 45 mg/dl (7-18); Calcium 8.9 mg/dl (8.5-10.1); Carbon Dioxide 20 mmol/L (21-32); Chloride 87 mmol/L (98-107); Est GFR (African American) 12.7 ml/min; Est GFR (Non-African American) 10.9 ml/min; Globulin 4.6 gm/dl (2.5-4.0); Glucose 830 mg/dl (70-99); Sodium 121 mmol/L (136-145); Total Protein 7.4 gm/dl (6.4-8.2)
[2020-11-25] MEDS ORDERED: SODIUM CHLORIDE 0.9% 1000ML 1,000 ML IV ONE (06:52)
[2020-11-25] MEDS ORDERED: HYDROmorphone INJ 1 MG/ML SYRINGE IV STA (06:53)
[2020-11-25 07:02] LABS: iSTAT Blood Urea Nitrogen 48 mg/dl (7-18); iSTAT Carbon Dioxide 20 mmol/L (24-31); iSTAT Chloride 87 mmol/L (101-112); iSTAT Creatinine 6.3 mg/dl (0.6-1.3); iSTAT Glucose > 700 mg/dl (70-99); iSTAT Hematocrit 23 % (42-52); iSTAT Hemoglobin 7.8 g/dl (14.0-18.0); iSTAT Ionized Calcium 1.18 mmol/l (1.12-1.32); iSTAT Potassium 4.6 mmol/L (3.3-5.0); iSTAT Sodium 122 mmol/L (135-144)
[2020-11-25] MEDS ORDERED: STAT IV Infusion **Titration per Protocol STA ×2 (07:54)
[2020-11-25 08:29] LABS: Base Excess ABG -7.1 mEq/L (-9-1.8); HCO3 ABG 18 mmol/L (19-24); Oxygen Saturation ABG 96.5 % (90-95); PCO2 ABG 35 mmHg (35-46); PO2 ABG 88 mmHg (80-95); pH ABG 7.33 (7.35-7.45)
[2020-11-25 08:33] LABS: Allen Test Pos (Pos)
--- NOTE | 2020-11-25 11:26 | History & Physical Report ---
Date of Service November 25, 2020 Assessment & Plan (1) Uncontrolled type 1 diabetes mellitus with kidney complication, with long- term current use of insulin: Plan: Pt is 40 yo M with T1DM, ESRD on MWF dialysis presenting with HHS precipitated by poor treatment compliance and medication non-adherence 1) HHS - ABG- pH 7.33, HCO3 18. BMP- AG 14, HCO3 20, Na 122, K 4.6, Glucose 830, FS 600+, serum ketones 29.1 elevated - Despite T1DM, patient's clinical history and lab results more consistent with HHS over DKA - Of note, pt received no treatment in hospital today aside from 1L fluid bolus in early AM. Pt in ED, was going to be transferred to floors but did not receive IVF, insulin drip while in ED due to emergent dialysis. Hemodialysis done- 4 hours with net UF 3-4 L, Epogen 10k units provided, nephrology team anticipating need for additional treatment on 11/26 due to significant fluid retention - Insulin drip, most recent FS- 328. Decrease infusion rate once glucose consistently <300, transition to subQ Lantus/Novolog (150 units daily requirement at home) -D5 1/2 NS + 20 meq KCl -Serial q4h labs- BMP, Mg, Phos, VBG 2) ESRD -Nephrology following -BUN/Cr on admission- 45/5.95, appears slightly worse than baseline -Continue calcium acetate 3) HTN -Continue carvedilol 4) Diabetic neuropathy -Continue gabapentin and duloxetine 5) GERD -Continue Protonix 6) Hypothyroidism -Continue Synthroid 7) HLD -Continue Lipitor - (2) Hyperglycemia: (3) ESRD (end stage renal disease): (4) Anemia: (5) Hyponatremia: Plan: Admission and Anticipated Discharge Date Admission Date: November 25, 2020 History of Present Illness Chief Complaint: Generalized weakness and dizziness Primary Care Provider: Maki Peterson MD Pt is 40 yo M with PMH of T1DM, HTN, HLD, ESRD with dialysis MWF at [facility] for past 3 years, 2 prior diabetic comas, history of poor treatment compliance and medication non-adherence presenting with 5 days of generalized weakness and dizziness. Pt states he initially felt weak and dizzy on 11/20. This persisted throughout the week, during which he visited the ED 2x, once for a diffuse but non-distressing rash he attributed to a wool blanket and once for pain from his peripheral neuropathy. Pt's peripheral neuropathy has worsened and he reports little relief from his gabapentin. Pt states he has been more thirsty this week but has not urinated excessively. On 11/24, pt was sleepy and tired for nearly the entire day, spending the majority of it in bed. He was still able to attend his 2 dialysis sessions this week. Attempted to go to today's dialysis session in the morning but felt increasingly ill and came to [facility] ED. On further exploration of his diabetes management, pt reports he drinks much water throughout the day but only has a single large meal for dinner- including hot dogs, burgers, shrimp and rice, etc. He does not regularly check his blood sugars, only doing so when he feels ill and note them to be 200s/300s. He usuall y takes between 60-100 units of Novolog before his dinner but regularly forgets to take his Levemir 50 units before bed. Pt states he has been hospitalized 3 times for diabetes complications, but could not recall details of diagnosis or management. Allergies Allergy/AdvReac Type Severity Reaction Status Date / Time lisinopril AdvReac Intermediate COUGH Verified 11/25/20 08:10 Home Medications Medication Instructions Recorded Confirmed Type calcium acetate 667 mg tablet 667 mg PO TIDM tab 07/14/19 11/25/20 History (Calphron) OneTouch Delica Lancets 33 gauge #400 ea NS 10/16/19 11/21/20 Rx (lancets) blood sugar diagnostic (OneTouch #400 ea 01/29/20 11/21/20 Rx Verio test strips) blood-glucose meter (OneTouch #1 ea 01/29/20 11/21/20 Rx Verio Flex meter) pen needle, diabetic 29 gauge x #400 ea 01/29/20 11/21/20 Rx 1/2" (Comfort EZ Pen [place]) acetone (urine) test (Ketostix) #100 ea 02/18/20 11/21/20 Rx levothyroxine 50 mcg tablet 50 mcg PO PM 03/23/20 11/25/20 History (Synthroid) atorvastatin 80 mg tablet (Lipitor) 80 mg PO HS #30 tab 05/30/20 11/25/20 Rx bumetanide 2 mg tablet See Rx Instructions .ROUTE .COMPLEX 11/02/20 11/25/20 History diphenhydramine HCl 25 mg tablet 25 mg PO DIRECTED 11/02/20 11/25/20 History (Benadryl Allergy) duloxetine 60 mg capsule,delayed 60 mg PO QAM 11/02/20 11/25/20 History release (Cymbalta) insulin aspart U-100 100 unit/mL 300 unit SQ DAILY #90 ml 11/08/20 11/25/20 Rx (3 mL) subcutaneous pen (Novolog Flexpen U-100 Insulin aspart) Levemir FlexTouch U-100 Insuln 100 50 unit SQ HS 30 Days #15 ml NS 11/14/20 11/25/20 Rx unit/mL (3 mL) subcutaneous pen (insulin detemir U-100) carvedilol 12.5 mg tablet (Coreg) 6.25 mg PO BID 11/25/20 11/25/20 History gabapentin 300 mg capsule 600 mg PO BID 11/25/20 11/25/20 History (Neurontin) pantoprazole 40 mg tablet,delayed 40 mg PO QAM 11/25/20 11/25/20 History release (Protonix) vitamin B complex and vitamin C 1 cap PO 3XWK 11/25/20 11/25/20 History no.20-folic acid 1 mg capsule (Triphrocaps) Past Med/Surg History Medical History Anemia Chronic venous insufficiency Depression Diabetic peripheral neuropathy associated with type 1 diabetes mellitus Diabetic retinopathy Erectile dysfunction ESRD (end stage renal disease) requiring hemodialysis. MWF at [facility]. GERD (gastroesophageal reflux disease) Well controlled and stable H/O febrile seizure as a child (every year until he was 11 years old) no problems since. High cholesterol Hypertension Hypothyroidism Port-A-Cath in place chest area dialysis Thrombosis of arteriovenous dialysis fistula (~02/15/20) Surgical History H/O detached retina repair History of esophagogastroduodenoscopy (EGD) S/P arteriovenous (AV) fistula creation left side, unable to use Family History Mother Diabetes Coronary heart disease Hypertension Father Coronary heart disease Hypertension Brother Coronary heart disease Kidney disease Uncle Colorectal cancer Grandmother Diabetes Aunt Diabetes Unknown Dyslipidemia Other Cancer No family history of adverse response to anesthesia Social History Smoking Status: Never smoker Second Hand Exposure: No; Hx Alcohol Use: No Hx Substance Use: No Preferred Language: Togolese Communication Ability: Effective Visual Impairment: No Limitations Hearing Ability: Normal 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 Beliefs That Will Affect Care: None marital status: Single Current Living Situation: Alone Current Living Situation Comment: apartment lives with brother 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" Feels Safe at Home: Yes Dental Care, Regularly: No Physical Activity Frequency: Does not Exercise Seatbelt Use: always Sunscreen Use: No Assistive Devices: None Review of Systems Review of Systems: All systems reviewed & are unremarkable except as noted in HPI & below Gastrointestinal: + diarrhea/loose stools Neurologic: + loss of sensation, + paresthesia and + tremor(s) Physical Exam Constitutional: + ill appearing and + obese; no acute distress Eyes: no scleral abnormality and no corneal abnormality ENMT: Mouth: no oral mucosal abnormality and oral mucous membranes not dry Neck: normal visual inspection and trachea midline Respiratory: normal respiratory effort Auscultation: lungs clear to auscultation bilaterally and + rales Cardiovascular: Rate/Rhythm: regular rate Heart Sounds: normal S1 and n ormal S2 Extremities: + edema and + AV fistula Musculoskeletal: Extremities: no cyanosis and no clubbing Skin: normal turgor; no lesions Stasis dermatitis of b/l LE Neurologic: Motor/Sensory: no tremor and no asterixis Psychiatric: Orientation: alert and oriented x 3 Results & Data Results & Data ([facility]) Vital Signs (Past 12 Hours) Vital Signs Temp Pulse Resp BP Pulse Ox 11/25/20 09:00 94 H 18 170/88 H 99 11/25/20 08:30 93 H 18 155/82 H 95 11/25/20 08:00 93 H 18 146/80 H 93 11/25/20 07:30 94 H 20 145/85 H 93 11/25/20 07:00 96 H 20 141/79 H 11/25/20 06:30 96 H 16 11/25/20 06:02 98 H 13 11/25/20 05:50 97 H 16 97 11/25/20 05:31 37.2 C 98 H 18 171/82 H 96 11/25/20 05:30 97 H 15 155/81 H 99 11/25/20 05:29 100 H 11 L 171/82 H 98 Chemistry (BMP) Results BMP Results: Sodium 121 mmol/L (136-145) L 11/25/20 Potassium 4.0 mmol/L (3.5-5.1) 11/25/20 Chloride 97 mmol/L (98-107) L 11/25/20 BUN 22 mg/dl (7-18) H 11/25/20 Creatinine 3.09 mg/dl (0.6-1.4) H 11/25/20 Glucose 356 mg/dl (70-99) H* 11/25/20 Code Status & VTE Plan VTE Prophylaxis Plan VTE Prophylaxis will be ordered: Yes Supervising Physician Co-Signing Physician Notes I personally examined the patient and verified all orourke points of history and exam, discussed case, and agree with decision making with Dr Donohue. Came to the hospital mostly because his hands were tingling uncontrollably, uncomfortable, weak, occasionally feeling like electric shocks. Otherwise he was just feeling weak and malaise all over. Vitals noted, in general he appears very fatigued no distress. HEENT normocephalic atraumatic. Breathing unlabored no accessory muscle use good effort. Neuro shows hyperesthesia to even light touch bilateral hands. Skin shows no rashes no pallor or icterus. Diffuse diabetic neuropathyhe has dense neuropathy with significant numbness in his feet. His upper extremities show very uncomfortable paresthesias. We discussed that the main management will be glycemic control with the hope that the nerves are more irritated than /damaged at this time. He is currently on gabapentin 600 twice daily notes it does not helpI empathized that unfortunately with this, neuropathy medications often are difficult to come by as far as making a major impactbut we will review, consider, and work the best we can. Also glycemic control of utmost importance. Hyperglycemic dehydration with uncontrolled diabeteswhile he is a type I, I also strongly suspect he has insulin resistance/is both a type I or type IIgiven that his current picture seems clinically far more consistent with HHS type pathophysiology than purely DKA. That also may be because he is taking some insulin, just not enough, blunting true ketoacidosis deterioration. I also wonder how much his ESRD might have blunted the typical massive diuresis we would expect with a sugar of 830. Fluids, insulin, education. Discussed "high sugars clog arteries" and started to discuss dynamic glycemic management. Emphasized multiple times the critical need for diabetes control to prevent future complications, to give him a chance of potentially reducing his current massively uncomfortable neuropathy, and to reduce the chance of dying in the unfortunately quite near future of ongoing vascular complications. Tried to gently but clearly emphasized that the responsibility for glycemic control once out of the hospital lies predominantly with him. Hyponatremiapredominantly pseudohyponatremia from hyperglycemia. ESRDcontinue dialysis. Otherwise as above Resident Activity Tracking Resident Involvement: Resident Care Provided Care Provided: Adult Hospital Medicine (1) Anemia Anemia type: due to chronic kidney disease Chronic kidney disease stage: on chronic dialysis Qualified Code(s): N18.6 - End stage renal disease; D63.1 - Anemia in chronic kidney disease; Z99.2 - Dependence on renal dialysis
[2020-11-25] MEDS ORDERED: INSULIN HUMAN REGULAR PER UNIT 10 UNITS in SYRINGE 9.9 ML IV ONE ×2 (12:45→20:15)
--- NOTE | 2020-11-25 12:52 | Nephrology Consultation ---
Date of Consultation November 25, 2020 Assessment & Plan (1) ESRD (end stage renal disease): Emergent hemodialysis coordinated in the ER this AM. Orders reviewed with the dialysis nurse. Plan for 4 hours on 180 optiflux. Net UF 3-4 L, as tolerated. Anticipate additional treatment tomorrow. Notable fluid retention. Na bath 135. (2) Hyperglycemia: Insulin provided per primary team. DKA management per hospitalist. (3) Uncontrolled type 1 diabetes mellitus with kidney complication, with long- term current use of insulin: (4) Anemia: Epogen 25569 units provided with HD today. (5) Hyponatremia: Corrected sodium for hyperglycemia 133 mmol/L. Risks of hyperglycemia and excessive fluid intake including risk of discussed wtih Ventura this AM. History of Present Illness Reason for Consultation: ESRD on HD History of Present Illness Mr. Ventura Snell is a 40-year-old male with type 1-DM and end-stage renal disease due to diabetic kidney disease. He is managed with hemodialysis every MWF at [facility]. Ventura dialyzes via a left RC AVF. Compliance with treatment has been poor. However, he did complete a full dialysis treatment on Saturday. 4 L of fluid were reviewed and he left at 134.8 kg which is 0.5 kg above his EDW. IDWG has typically been excessive and Ventura admits that his diet has been very poor. Medical history also notable for neuropathy, hypertension, and dyslipidemia. Ventura has had multiple recent ER evaluations for pain in his hands and feet related to neuropathy. He was recently evaluated 2 days ago. On presentation today, blood glucose was found to be >800 and serum sodium 122. I was contacted by Dr. Glover and the ER attending. Ventura was seen and evaluated and admitted for inpatient management and HD. Allergies Allergy/AdvReac Type Severity Reaction Status Date / Time lisinopril AdvReac Intermediate COUGH Verified 11/25/20 08:10 Home Medications Medication Instructions Recorded Confirmed Type calcium acetate 667 mg tablet 667 mg PO TIDM tab 07/14/19 11/25/20 History (Calphron) Digital RailroadTouch Delica Lancets 33 gauge #400 ea NS 10/16/19 11/21/20 Rx (lancets) blood sugar diagnostic (OneTouch #400 ea 01/29/20 11/21/20 Rx Verio test strips) blood-glucose meter (OneTouch #1 ea 01/29/20 11/21/20 Rx Verio Flex meter) pen needle, diabetic 29 gauge x #400 ea 01/29/20 11/21/20 Rx 1/2" (Comfort EZ Pen [place]) acetone (urine) test (Ketostix) #100 ea 02/18/20 11/21/20 Rx levothyroxine 50 mcg tablet 50 mcg PO PM 03/23/20 11/25/20 History (Synthroid) atorvastatin 80 mg tablet (Lipitor) 80 mg PO HS #30 tab 05/30/20 11/25/20 Rx bumetanide 2 mg tablet See Rx Instructions .ROUTE .COMPLEX 11/02/20 11/25/20 H istory diphenhydramine HCl 25 mg tablet 25 mg PO DIRECTED 11/02/20 11/25/20 History (Benadryl Allergy) duloxetine 60 mg capsule,delayed 60 mg PO QAM 11/02/20 11/25/20 History release (Cymbalta) insulin aspart U-100 100 unit/mL 300 unit SQ DAILY #90 ml 11/08/20 11/25/20 Rx (3 mL) subcutaneous pen (Novolog Flexpen U-100 Insulin aspart) Levemir FlexTouch U-100 Insuln 100 50 unit SQ HS 30 Days #15 ml NS 11/14/20 11/25/20 Rx unit/mL (3 mL) subcutaneous pen (insulin detemir U-100) carvedilol 12.5 mg tablet (Coreg) 6.25 mg PO BID 11/25/20 11/25/20 History gabapentin 300 mg capsule 600 mg PO BID 11/25/20 11/25/20 History (Neurontin) pantoprazole 40 mg tablet,delayed 40 mg PO QAM 11/25/20 11/25/20 History release (Protonix) vitamin B complex and vitamin C 1 cap PO 3XWK 11/25/20 11/25/20 History no.20-folic acid 1 mg capsule (Triphrocaps) Patient History Medical History Anemia Chronic venous insufficiency Depression Diabetic peripheral neuropathy associated with type 1 diabetes mellitus Diabetic retinopathy Erectile dysfunction ESRD (end stage renal disease) requiring hemodialysis. MWF at [facility]. GERD (gastroesophageal reflux disease) Well controlled and stable H/O febrile seizure as a child (every year until he was 11 years old) no problems since. High cholesterol Hypertension Hypothyroidism Port-A-Cath in place chest area dialysis Thrombosis of arteriovenous dialysis fistula (~02/15/20) Surgical History H/O detached retina repair History of esophagogastroduodenoscopy (EGD) S/P arteriovenous (AV) fistula creation left side, unable to use Family History Mother Diabetes Coronary heart disease Hypertension Father Coronary heart disease Hypertension Brother Coronary heart disease Kidney disease Uncle Colorectal cancer Grandmother Diabetes Aunt Diabetes Unknown Dyslipidemia Other Cancer No family history of adverse response to anesthesia Social History Smoking Status: Never smoker Second Hand Exposure: No; Hx Alcohol Use: Yes Alcohol type: beer, wine and hard liquor Hx Substance Use: No Preferred Language: Filipino Communication Ability: Effective Visual Impairment: No Limitations Hearing Ability: Normal Ammonia Solution Preparer Required: No Beliefs That Will Affect Care: None marital status: Single Current Living Situation: Family Current Living Situation Comment: apartment lives with brother 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" Feels Safe at Home: Yes Dental Care, Regularly: No Physical Activity Frequency: Does not Exercise Seatbelt Use: always Sunscreen Use: No Assistive Devices: None and Cane Review of Systems Review of Systems: All systems reviewed & are unremarkable except as noted in HPI & below Gastrointestinal: + diarrhea/loose stools Neurologic: + loss of sensation, + paresthesia and + tremor(s) Physical Exam Constitutional: + ill appearing; no acute distress Eyes: no scleral abnormality and no corneal abnormality ENMT: Mouth: no oral mucosal abnormality and oral mucous membranes not dry Neck: normal visual inspection and trachea midline Respiratory: normal respiratory effort Auscultation: lungs clear to auscultation bilaterally and + rales Cardiovascular: Rate/Rhythm: regular rate Heart Sounds: normal S1 and normal S2 Extremities: + edema and + AV fistula Musculoskeletal: Extremities: no cyanosis and no clubbing Skin: normal turgor; no lesions Neurologic: Motor/Sensory: no tremor and no asterixis Psychiatric: Orientation: alert and oriented x 3 Results & Data ([facility]) Vital Signs (Past 12 Hours) Vital Signs Temp Pulse Resp BP Pulse Ox 11/25/20 10:00 91 H 18 159/78 H 94 11/25/20 09:30 92 H 18 159/84 H 95 11/25/20 09:00 94 H 18 170/88 H 99 11/25/20 08:30 93 H 18 155/82 H 95 11/25/20 08:00 93 H 18 146/80 H 93 11/25/20 07:30 94 H 20 145/85 H 93 11/25/20 07:00 96 H 20 141/79 H 11/25/20 06:30 96 H 16 11/25/20 06:02 98 H 13 11/25/20 05:50 97 H 16 97 11/25/20 05:31 37.2 C 98 H 18 171/82 H 96 11/25/20 05:30 97 H 15 155/81 H 99 11/25/20 05:29 100 H 11 L 171/82 H 98 Laboratory Results Laboratory Results - last 24 hr 11/25/20 11/25/20 11/25/20 05:29 05:40 05:40 WBC 9.02 RBC 2.90 L Hgb 8.9 L POC Hgb Hct 27.4 L POC Hct MCV 94.5 MCH 30.7 MCHC 32.5 RDW Std Deviation 47.3 H RDW Coeff of Yuki 13.6 Plt Count 215 MPV 10.5 H Immature Gran % (Auto) 0.2 Neut % (Auto) 84.6 Lymph % (Auto) 7.6 [place] % (Auto) 5.2 Eos % (Auto) 2.3 Baso % (Auto) 0.1 Neut # (Auto) 7.62 H Lymph # (Auto) 0.69 L [place] # (Auto) 0.47 Eos # (Auto) 0.21 Baso # (Auto) 0.01 Immature Gran # (Auto) 0.02 ABG pH ABG pCO2 ABG pO2 ABG HCO3 ABG O2 Saturation ABG Base Excess Mian Test Barometric Pressure Oxygen Given POC Sodium Sodium 121 L POC Potassium Potassium POC Chloride Chloride 87 L Carbon Dioxide 20 L POC Total CO2 Anion Gap 14.0 H POC Anion Gap POC BUN BUN 45 H Creatinine 5.95 H* POC Creatinine Est Cr Clr Drug Dosing Not Reportable Est GFR ( Amer) 12.7 Est GFR (Non-Af Amer) 10.9 BUN/Creatinine Ratio 7.7 L Glucose 830 H* POC Glucose > 600 H* POC Glucose (other) Calcium 8.9 POC Ioniz Calcium Deandra Total Bilirubin 1.3 H AST ALT 21 Alkaline Phosphatase 176 H Total Protein 7.4 Albumin 2.8 L Globulin 4.6 H Albumin/Globulin Ratio 0.6 L Beta-Hydroxybutyric Acd TSH 4.210 COVID-19 Eval Order SARS-CoV-2 (PCR) 11/25/20 11/25/20 11/25/20 06:49 08:03 08:13 WBC RBC Hgb POC Hgb 7.8 L Hct POC Hct 23 L MCV MCH MCHC RDW Std Deviation RDW Coeff of Yuki Plt Count MPV Immature Gran % (Auto) Neut % (Auto) Lymph % (Auto) [place] % (Auto) Eos % (Auto) Baso % (Auto) Neut # (Auto) Lymph # (Auto) [place] # (Auto) Eos # (Auto) Baso # (Auto) Immature Gran # (Auto) ABG pH ABG pCO2 ABG pO2 ABG HCO3 ABG O2 Saturation ABG Base Excess Mian Test Barometric Pressure Oxygen Given POC Sodium 122 L Sodium POC Potassium 4.6 Potassium POC Chloride 87 L Chloride Carbon Dioxide POC Total CO2 20 L Anion Gap POC Anion Gap 20.0 POC BUN 48 H BUN Creatinine POC Creatinine 6.3 H* Est Cr Clr Drug Dosing Est GFR ( Amer) Est GFR (Non-Af Amer) BUN/Creatinine Ratio Glucose POC Glucose POC Glucose (other) > 700 H* Calcium POC Ioniz Calcium Deandra 1.18 Total Bilirubin AST ALT Alkaline Phosphatase Total Protein Albumin Globulin Albumin/Globulin Ratio Beta-Hydroxybutyric Acd 29.10 H TSH COVID-19 Eval Order Covid19 at [facility] SARS-CoV-2 (PCR) 11/25/20 11/25/20 08:13 08:14 WBC RBC Hgb POC Hgb Hct POC Hct MCV MCH MCHC RDW Std Deviation RDW Coeff of Yuki Plt Count MPV Immature Gran % (Auto) Neut % (Auto) Lymph % (Auto) [place] % (Auto) Eos % (Auto) Baso % (Auto) Neut # (Auto) Lymph # (Auto) [place] # (Auto) Eos # (Auto) Baso # (Auto) Immature Gran # (Auto) ABG pH 7.33 L ABG pCO2 35 ABG pO2 88 ABG HCO3 18 L ABG O2 Saturation 96.5 H ABG Base Excess -7.1 Mian Test Pos Barometric Pressure 736.7 Oxygen Given RA POC Sodium Sodium POC Potassium Potassium POC Chloride Chloride Carbon Dioxide POC Total CO2 Anion Gap POC Anion Gap POC BUN BUN Creatinine POC Creatinine Est Cr Clr Drug Dosing Est GFR ( Amer) Est GFR (Non-Af Amer) BUN/Creatinine Ratio Glucose POC Glucose POC Glucose (other) Calcium POC Ioniz Calcium Deandra Total Bilirubin AST ALT Alkaline Phosphatase Total Protein Albumin Globulin Albumin/Globulin Ratio Beta-Hydroxybutyric Acd TSH COVID-19 Eval Order SARS-CoV-2 (PCR) NEGATIVE PG Care Time/CCT Total # of Minutes Spent Total Time Spent with Patient: Total time spent is greater than 50% in coordination of care (as documented) at patient's floor/unit and/or counseling patient: Coding Level of Care Code 10539 Inpt Consult Level 4 Diagnoses Hyperglycemia R73.9 Uncontrolled type 1 diabetes mellitus with kidney complication, with long-term current use of insulin E10.29; E10.65 ESRD (end stage renal disease) N18.6 Anemia N18.6; D63.1; Z99.2 Anemia type: due to chronic kidney disease Chronic kidney disease stage: on chronic dialysis Hyponatremia E87.1 (1) Anemia Anemia type: due to chronic kidney disease Chronic kidney disease stage: on chronic dialysis Qualified Code(s): N18.6 - End stage renal disease; D63.1 - Anemia in chronic kidney disease; Z99.2 - Dependence on renal dialysis
[2020-11-25] MEDS ORDERED: EPOETIN ALFA 10,000 UNITS/ML VIAL IV ONE (13:30)
[2020-11-25] MEDS ORDERED: ALUMINUM/MAGNESIUM SUSP 30 ML UDC PO PRN (15:52)
[2020-11-25] MEDS ORDERED: ACETAMINOPHEN 325 MG TAB PO PRN (15:52)
[2020-11-25] MEDS ORDERED: POLYETHYLENE (MIRALAX) 17 GM PACK PO PRN (15:52)
[2020-11-25] MEDS: INSULIN ASPART 100 UNITS/ML 3 ML PEN SC SCH ×3 (16:33→21:00)
[2020-11-25] MEDS: PANTOprazole 40 MG TAB PO SCH (16:55)
[2020-11-25] MEDS: carvediloL 6.25 MG TAB PO SCH ×2 (16:55→20:15)
[2020-11-25] MEDS: GABAPENTIN 600 MG TAB PO SCH ×2 (16:56→20:15)
[2020-11-25] MEDS: DULoxetine HCL 60 MG CAP PO SCH (16:56)
[2020-11-25] MEDS: CALCIUM ACETATE 667 MG CAP/TAB PO SCH (16:56)
[2020-11-25] MEDS: INSULIN REGULAR 250 UNITS in SODIUM CHLORIDE 0.9% 247.5 ML IV SCH (16:58)
[2020-11-25 17:13] LABS: Blood Urea Nitrogen 22 mg/dl (7-18); Calcium 9.3 mg/dl (8.5-10.1); Carbon Dioxide 22 mmol/L (21-32); Chloride 97 mmol/L (98-107); Est GFR (Non-African American) 24.1 ml/min; Glucose 356 mg/dl (70-99); Magnesium 1.8 mg/dl (1.8-2.4); Phosphorus 2.7 mg/dl (2.5-4.9)
[2020-11-25 17:27] LABS: Beta-Hydroxybutyrate 37.37 mg/dl (0.2-2.81)
[2020-11-25] MEDS ORDERED: D5W AND 1/2NSS + 20MEQ KCL 20 MEQ/1,000 ML BAG IV SCH (17:30)
[2020-11-25] MEDS: NORMOSOL-R 1,000 ML IV SCH ×2 (17:59→18:00)
[2020-11-25] MEDS: PENDING 1/2NSS+40mEq KCL IVF SCH ×2 (17:59→18:00)
[2020-11-25] MEDS ORDERED: PHARMACY GLYCEMIC MGMT CONSULT PRN (18:42)
--- NOTE | 2020-11-25 19:32 | Billing Data ---
Date of Service November 25, 2020 Coding Level of Care Code 74771 Initial Inpt Care Lvl 3
[2020-11-25] MEDS ORDERED: GLUCOSE 40% GEL 15 GM TUBE PO PRN (19:45)
[2020-11-25] MEDS ORDERED: CARBOHYDRATES FOR HYPOGLYCEMIA PO PRN (19:45)
[2020-11-25] MEDS ORDERED: DEXTROSE 50% 50 ML SYRINGE IV PRN (19:45)
[2020-11-25] MEDS ORDERED: GLUCOSE 10 TABS/TUBE PO PRN (19:45)
[2020-11-25] MEDS ORDERED: GLUCAGON FOR INJ 1 MG VIAL IM PRN (19:45)
[2020-11-25] MEDS: ATORVASTATIN 40 MG TAB PO SCH (20:14)
[2020-11-25 20:15] LABS: Sodium 132 mmol/L (136-145)
[2020-11-25 20:50] LABS: BUN Creatinine Ratio 6.6 (10-20); Blood Urea Nitrogen 24 mg/dl (7-18); Calcium 8.9 mg/dl (8.5-10.1); Carbon Dioxide 24 mmol/L (21-32); Chloride 97 mmol/L (98-107); Est GFR (African American) 23.3 ml/min; Est GFR (Non-African American) 20.1 ml/min; Glucose 381 mg/dl (70-99); Magnesium 1.7 mg/dl (1.8-2.4); Phosphorus 2.2 mg/dl (2.5-4.9); Potassium 3.7 mmol/L (3.5-5.1); Sodium 130 mmol/L (136-145)
[2020-11-25 21:03] LABS: Beta-Hydroxybutyrate 17.55 mg/dl (0.2-2.81)
[2020-11-25] MEDS: LEVOTHYROXINE SODIUM 50 MCG TABLET PO SCH (22:12)
[2020-11-26 00:36] LABS: BUN Creatinine Ratio 6.5 (10-20); Calcium 8.9 mg/dl (8.5-10.1); Creatinine Clr Calc Pharmacy 32.9 ml/min; Est GFR (African American) 20.7 ml/min; Est GFR (Non-African American) 17.9 ml/min; Magnesium 1.6 mg/dl (1.8-2.4); Potassium 3.6 mmol/L (3.5-5.1)
[2020-11-26 00:37] LABS: Phosphorus 2.1 mg/dl (2.5-4.9)
[2020-11-26] MEDS ORDERED: POTASSIUM CHLORIDE 20 MEQ in SODIUM CHLORIDE 0.9% 1000ML 1,000 ML IV SCH (01:00)
[2020-11-26] MEDS: SODIUM CHLOR 0.45% + 20MEQ KCL 20 MEQ/1,000 ML BAG IV SCH ×3 (01:37→17:11)
[2020-11-26] MEDS ORDERED: STAT IV Infusion **Titration per Protocol STA (03:05)
[2020-11-26] MEDS ORDERED: PENDING D5 1/2NS+20mEq KCL IVF SCH (03:15)
[2020-11-26 04:37] LABS: BUN Creatinine Ratio 6.1 (10-20); Calcium 9.3 mg/dl (8.5-10.1); Creatinine Clr Calc Pharmacy 29.9 ml/min; Est GFR (African American) 18.5 ml/min; Potassium 3.6 mmol/L (3.5-5.1)
[2020-11-26 04:38] LABS: Phosphorus 2.1 mg/dl (2.5-4.9)
[2020-11-26 06:01] LABS: Estimated Average Glucose 315 mg/dl; Hemoglobin A1C 12.6 % (4.5-5.6)
--- NOTE | 2020-11-26 06:37 | Electrocardiogram Report ---
Test Reason : Blood Pressure : / mmHG Vent. Rate : 098 BPM Atrial Rate : 098 BPM P-R Int : 144 ms QRS Dur : 096 ms QT Int : 364 ms P-R-T Axes : 034 004 047 degrees QTc Int : 464 ms Poor data quality, interpretation may be adversely affected Normal sinus rhythm Normal ECG When compared with ECG of 21-NOV-2020 11:44, No significant change was found Confirmed by Nicholas Pittman ([id number]) on 11/26/2020 6:36:53 AM Referred By: REFERRED SELF Confirmed By:Nicholas Pittman
[2020-11-26] MEDS: INSULIN ASPART 100 UNITS/ML 3 ML PEN SC SCH ×4 (07:43→20:14)
[2020-11-26 08:19] LABS: BUN Creatinine Ratio 6.2 (10-20); Calcium 9.3 mg/dl (8.5-10.1); Creatinine Clr Calc Pharmacy 27.9 ml/min; Est GFR (African American) 17.9 ml/min; Est GFR (Non-African American) 15.4 ml/min; Magnesium 1.5 mg/dl (1.8-2.4); Potassium 3.5 mmol/L (3.5-5.1)
[2020-11-26 08:21] LABS: Phosphorus 1.9 mg/dl (2.5-4.9)
[2020-11-26] MEDS: carvediloL 6.25 MG TAB PO SCH ×2 (08:45→20:11)
[2020-11-26] MEDS: ACETAMINOPHEN 325 MG TAB PO SCH ×3 (08:45→20:10)
[2020-11-26] MEDS: CALCIUM ACETATE 667 MG CAP/TAB PO SCH (08:45)
[2020-11-26] MEDS: GABAPENTIN 600 MG TAB PO SCH ×2 (08:45→20:12)
[2020-11-26] MEDS: DULoxetine HCL 60 MG CAP PO SCH (08:46)
[2020-11-26] MEDS: PANTOprazole 40 MG TAB PO SCH (09:09)
--- NOTE | 2020-11-26 09:23 | Nephrology Progress Note ---
Date of Service November 26, 2020 Assessment & Plan (1) ESRD (end stage renal disease): Plan: * Volume status is markedly improved. Clinically patient appears to be near EDW. Hospital weight is likely not correct * No acute indication for HD today. Will reassess volume status and electrolyte balance in am (2) Uncontrolled type 1 diabetes mellitus with kidney complication, with long- term current use of insulin: Plan: * Patient admitted w/ DKA. Management as per hospitalist service * Will need easy to follow insulin sliding scale at time of discharge * If arm/hand pain persists, consider c-spine x-rays and nerve conduction studies (3) Anemia: Plan: * Epogen 78585 units provided with HD 11/25/20 (4) Hyponatremia: Plan: * Mild, asymptomatic. In part related to hyperglycemia Admission and Anticipated Discharge Date Admission Date: November 25, 2020 Subjective Mr. Snell was seen & examined in the PCU this morning. He was dialyzed yesterday for 3 L UF. He notes marked improvement in his LE swelling. public health staff nurse records a 10 kg drop in weight?. Mr. Snell c/o persistent numbness in his hands Review of Systems Constitutional: no fever Eyes: no problem reported Ear, Nose, Mouth, Throat: no problem reported Respiratory: no cough and no dyspnea Cardiovascular: no chest pain, no palpitations and no edema Gastrointestinal: no abdominal pain, no nausea, no vomiting and no diarrhea/loose stools Genitourinary: no dysuria, no urinary hesitancy or no hematuria Musculoskeletal: no back pain Integumentary: no rash Neurologic: + paraesthesia of the hands Physical Exam Constitutional: + obese and + disheveled; not in distress Eyes: PERRL, conjunctivae normal, anicteric sclerae ENMT: external ear and nose normal, oropharynx normal Neck: trachea midline, no thyromegaly Respiratory: normal respiratory effort, lungs clear to auscultation Cardiovascular: Rate/Rhythm: regular rate and regular rhythm Extremities: + edema (trace LE swelling) and + AV fistula (L RC AVF + bruit) Gastrointestinal (Abdomen): normal bowel sounds, soft, nontender, no hepatosplenomegaly Musculoskeletal: Extremities: no cyanosis Skin: no rashes, warm and dry Neurologic: awake; not confused Results & Data ([facility]) Vital Signs (Past 12 Hours) Vital Signs Temp Pulse Pulse Resp BP Pulse Ox 11/26/20 07:05 37.2 C 96 H 18 144/83 H 96 11/26/20 03:15 37.1 C 94 H 15 142/75 H 99 11/26/20 00:21 94 H 11/25/20 22:59 37.4 C 94 H 20 137/76 95 Laboratory Results Laboratory Tests 11/25/20 11/26/20 20:01 07:34 Sodium 130 L 132 L Potassium 3.5 Chloride 99 Carbon Dioxide 24 BUN 28 H Creatinine 4.47 H Glucose 187 H Phosphorus 1.9 L PG Care Time/CCT Total # of Minutes Spent Total Time Spent with Patient: Total time spent is greater than 50% in coordination of care (as documented) at patient's floor/unit and/or counseling patient: Coding Level of Care Code 27981 Subseq Hosp Care Lvl 3 Diagnoses ESRD (end stage renal disease) N18.6 Uncontrolled type 1 diabetes mellitus with kidney complication, with long-term current use of insulin E10.29; E10.65 Anemia N18.6; D63.1; Z99.2 Anemia type: due to chronic kidney disease Chronic kidney disease stage: on chronic dialysis Hyponatremia E87.1 (1) Anemia Anemia type: due to chronic kidney disease Chronic kidney disease stage: on chronic dialysis Qualified Code(s): N18.6 - End stage renal disease; D63.1 - Anemia in chronic kidney disease; Z99.2 - Dependence on renal dialysis
[2020-11-26 13:22] LABS: Calcium 9.2 mg/dl (8.5-10.1); Creatinine Clr Calc Pharmacy 25.4 ml/min; Est GFR (African American) 15.9 ml/min; Est GFR (Non-African American) 13.8 ml/min; Phosphorus 1.8 mg/dl (2.5-4.9); Potassium 3.7 mmol/L (3.5-5.1)
--- NOTE | 2020-11-26 14:05 | Hospitalist Progress Note ---
Date of Service November 26, 2020 Assessment & Plan (1) Uncontrolled type 1 diabetes mellitus with kidney complication, with long- term current use of insulin: Plan: Pt is 40 yo M with T1DM, ESRD on MWF dialysis presenting with HHS precipitated by poor treatment compliance and medication non-adherence 1) HHS - ABG- pH 7.33, HCO3 18. BMP- AG 9, HCO3 18, Na 132, K 3.6, Glucose 243, serum ketones 17.55 elevated - Despite T1DM, patient's clinical history and lab results more consistent with HHS over DKA - Currently on 7.2 units of insulin/hr, plus 12 units novolog given subQ this AM, for 185 units total over 24 hrs - plan for 90 units basal, with bolus insulin amount determined by insulin:carb ratio at mealtime - given patient's history of poor glycemic control, more expedient optimization of pt's insulin regimen is indicated hence institution of carb ratio bolus schedule - enact regimen tonight - stop serial q4h labs- - BMP, Mg, Phos, VBG labs in the AM 2) ESRD -Nephrology following, additional dialysis deferred d/t pt's adequate volume load, per nephro. Pt will likely resume usual dialysis schedule on Saturday -BUN/Cr 27/4.35 -Continue calcium acetate -consider scheduling outpatient stress test to determine health of coronary vasculature given pt's longstanding disease 3) HTN -Continue carvedilol 4) Diabetic neuropathy -Continue gabapentin and duloxetine 5) GERD -Continue Protonix 6) Hypothyroidism -Continue Synthroid 7) HLD -Continue Lipitor - (2) Hyperglycemia: (3) ESRD (end stage renal disease): (4) Anemia: (5) Hyponatremia: Plan: Admission and Anticipated Discharge Date Admission Date: November 25, 2020 Supervising Physician Co-Signing Physician Notes I personally examined the patient and verified all orourke points of history and exam, discussed case, and agree with decision making with Dr Amor. Feeling a good bit better. Hands still tingle and are somewhat numb. Extensive discussion with patient, and his brother at the bedside, on diabetes management overall, why to care, and how to work on better management. Fortunately his brother is a "reformed diabetic" and that he used to be a type II on insulin, but with massive lifestyle changes he has actually put his type 2 diabetes into remission. There was a time where he was on basal bolus insulin, and expressed good understanding of carb matching. The patient himself actually expressed surprisingly good understanding of carb matching with insulins, and asked very good questions. Educated to the best my ability. Vitals noted, in general less fatigued and no distress. HEENT normocephalic atraumatic. Breathing unlabored no accessory muscle use good effort. Neuro shows hyperesthesia bilateral hands, but better than yesterday. Skin shows no rashes, pallor, icterus. Diffuse diabetic neuropathyhe has dense neuropathy with significant numbness in his feet. Does seem a little bit better than yesterdayhopefully glycemic control will help reduce some nerve irritation. Continue gabapentin, scheduled Tylenol, I wonder if he would benefit from topical compounded therapies to reduce some of his pain. Hyperglycemic dehydration with uncontrolled diabeteswhile he is a type I, I also strongly suspect he has insulin resistance/is both a type I or type IIgiven that his current picture seems clinically far more consistent with HHS type pathophysiology than purely DKA, as well as the fact that he has rather significant insulin requirements. Discussed this with himdiscussed how positive lifestyle, while not curative for his diabetes like it was for his brother, could likely regress the insulin resistance and make life far easier for him to control his sugar. We also discussed the critical need for self control with this, educated on carb matching with insulin at mealtimes, he expressed surprisingly good understanding/his brother expressed a very good understanding. Again reiterated "high sugars clog arteries" and my direct concern for his wellbeing given his young age and significant vascular endpoints. Hyponatremiapredominantly pseudohyponatremia from hyperglycemia. ESRDcontinue dialysis. High risk for cardiovascular diseasealready on a statin and beta-blockeradd an aspirin given that he is very high risk, in my clinical opinion the benefit outweighs the risk. He asked about a heart cathwe discussed that this probably would not be warranted given lack of symptoms, but with his already significant vascular endpoints, he is somebody that has enough pretest probability it is not unreasonable to consider stress testing in the near future. Otherwise as above Subjective Pt. complains of pain and tingling in both hands, with the right being worse than the left. Otherwise, he has no subjective complaints Physical Exam Respiratory: normal respiratory effort, lungs clear to auscultation Cardiovascular: RRR, no murmur, no edema Musculoskeletal: Fingers exquisitely tender to palpation bilaterally Results & Data Results & Data ([facility]) Vital Signs (Past 12 Hours) Vital Signs Temp Pulse Pulse Resp BP Pulse Ox 11/26/20 11:47 37 C 78 14 128/72 97 11/26/20 08:00 98 H 11/26/20 07:05 37.2 C 96 H 18 144/83 H 96 11/26/20 03:15 37.1 C 94 H 15 142/75 H 99 Resident Activity Tracking Resident Involvement: Resident Care Provided Care Provided: Adult [facility] Medicine (1) Anemia Anemia type: due to chronic kidney disease Chronic kidney disease stage: on chronic dialysis Qualified Code(s): N18.6 - End stage renal disease; D63.1 - Anemia in chronic kidney disease; Z99.2 - Dependence on renal dialysis
--- NOTE | 2020-11-26 15:27 | Pharmacy Report ---
Pharmacy Glycemic Short Note 2 - Date of Service November 26, 2020 - Glycemic Short BSG Results (Last 24 hours): 11/25/20 11/25/20 11/25/20 15:49 16:30 18:05 Glucose 356 H* POC Glucose 328 H* 430 H* 11/25/20 11/25/20 11/25/20 19:02 20:00 20:01 Glucose 381 H* POC Glucose 384 H* 403 H* 11/25/20 11/25/20 11/25/20 21:01 22:00 22:58 Glucose POC Glucose 352 H* 305 H* 287 H 11/26/20 11/26/20 11/26/20 00:05 00:06 01:03 Glucose 286 H POC Glucose 289 H 289 H 11/26/20 11/26/20 11/26/20 01:58 03:14 04:01 Glucose 243 H POC Glucose 286 H 270 H 11/26/20 11/26/20 11/26/20 04:09 05:03 06:09 Glucose POC Glucose 255 H 241 H 214 H 11/26/20 11/26/20 11/26/20 06:57 07:34 08:16 Glucose 187 H POC Glucose 204 H 201 H 11/26/20 11/26/20 11/26/20 09:03 10:07 10:09 Glucose POC Glucose 245 H 378 H* 225 H 11/26/20 11/26/20 11/26/20 11:02 12:10 12:37 Glucose 157 H POC Glucose 218 H 163 H 11/26/20 11/26/20 13:18 15:04 Glucose POC Glucose 193 H 186 H OUTPATIENT ANTIDIABETIC REGIMEN: * Levemir 50 units SC HS * Novolog SSI (TDD up to 300 units/day) * HbA1c = 12.6% (11/25/20) * However, this result is likely somewhat unreliable in ESRD patients d/t interactions between the A1c analyzing technique and high levels of urea in ESRD, reduced RBC life span, iron deficiency anemia, and EPO administratio n. HbA1c > 7.5% in ESRD patient may overestimate the extent of hyperglycemia in ESRD patients. ASSESSMENT: * 40 yo M admitted secondary to HHS yesterday. Pharmacy has been consulted to assist with inpatient glycemic management. Patient is well known to our service. * Patient was started on an IV insulin infusion for HHS upon admission. Since then goal range has been tightened to 150-200 mg/dL and now to 140-180 mg/dL. Patient is still requiring over 5 units/hr currently. HHS symptoms have resolved and labs appear better. * He is ordered a diet and tolerating this. He underwent dialysis on 11/25/20. * Will order home basal dose to start this evening and hope to d/c insulin infusion tomorrow AM. PLAN FOR INPATIENT GLYCEMIC CONTROL: * Continue IV Insulin Infusion * Goal range: 140-180 mg/dL * Basal insulin * Levemir 50 units SC HS * Bolus insulin * per calculator right now PLAN FOR DISCHARGE: * To be determined
[2020-11-26] MEDS ORDERED: CARBOHYDRATES FOR HYPOGLYCEMIA PO PRN (18:07)
[2020-11-26] MEDS ORDERED: GLUCOSE 40% GEL 15 GM TUBE PO PRN (18:07)
[2020-11-26] MEDS ORDERED: GLUCAGON FOR INJ 1 MG VIAL SQ PRN (18:07)
[2020-11-26] MEDS ORDERED: GLUCOSE 10 TABS/TUBE PO PRN (18:07)
[2020-11-26] MEDS ORDERED: DEXTROSE 50% 50 ML SYRINGE IV PRN (18:07)
--- NOTE | 2020-11-26 18:35 | Billing Data ---
Date of Service November 26, 2020 Coding Level of Care Code 09704 Subseq Hosp Care Lvl 3
[2020-11-26] MEDS: ATORVASTATIN 40 MG TAB PO SCH (20:11)
[2020-11-26] MEDS: LEVOTHYROXINE SODIUM 50 MCG TABLET PO SCH (20:12)
[2020-11-26] MEDS ORDERED: INSULIN GLARGINE SOLOSTAR 100 UNITS/ML 3 ML PEN SC SCH (21:00)
[2020-11-26] MEDS ORDERED: INSULIN ASPART 100 UNITS/ML 3 ML PEN SC SCH (21:00)
[2020-11-26] MEDS ORDERED: INSULIN DETEMIR FLEXPEN/FLEX TOUCH 100 UNITS/ML 3ML SC SCH (21:00)
[2020-11-26] MEDS: INSULIN REGULAR 250 UNITS in SODIUM CHLORIDE 0.9% 247.5 ML IV SCH ×2 (21:50→23:11)
[2020-11-27] MEDS: SODIUM CHLOR 0.45% + 20MEQ KCL 20 MEQ/1,000 ML BAG IV SCH (01:13)
[2020-11-27] MEDS: INSULIN ASPART 100 UNITS/ML 3 ML PEN SC SCH ×6 (02:33→21:11)
[2020-11-27] MEDS: PANTOprazole 40 MG TAB PO SCH (08:26)
[2020-11-27] MEDS: carvediloL 6.25 MG TAB PO SCH ×2 (08:27→21:14)
[2020-11-27] MEDS: GABAPENTIN 600 MG TAB PO SCH ×2 (08:27→21:15)
[2020-11-27] MEDS: ACETAMINOPHEN 325 MG TAB PO SCH ×3 (08:27→21:15)
[2020-11-27] MEDS: DULoxetine HCL 60 MG CAP PO SCH (08:27)
[2020-11-27] MEDS: ASPIRIN 81 MG ECTAB PO SCH (08:28)
--- NOTE | 2020-11-27 09:28 | Nephrology Progress Note ---
Date of Service November 27, 2020 Assessment & Plan (1) ESRD (end stage renal disease): Plan: * Volume status is markedly improved. Clinically patient appears to be near EDW. Hospital weight is likely not correct * No acute indication for HD today. Will schedule next HD treatment for am (2) Uncontrolled type 1 diabetes mellitus with kidney complication, with long- term current use of insulin: Plan: * Patient admitted w/ DKA. Management as per hospitalist service * Now off insulin gtt. Basal insulin dose has been adjusted and sliding scale according to carb ratio reviewed with patient by primary service * If arm/hand pain persists, consider c-spine x-rays and nerve conduction studies (3) Anemia: Plan: * Epogen 61036 units provided with HD 11/25/20 (4) Hyponatremia: Plan: * Mild, asymptomatic. In part related to hyperglycemia Admission and Anticipated Discharge Date Admission Date: November 25, 2020 Subjective Mr. Snell was evaluated in his hospital room this morning. He is now off his insulin gtt. He reports that his paraesthesias are mildly improved. Review of Systems Constitutional: no fever Eyes: no problem reported Ear, Nose, Mouth, Throat: no problem reported Respiratory: no cough and no dyspnea Cardiovascular: no chest pain, no palpitations and no edema Gastrointestinal: no abdominal pain, no nausea, no vomiting and no diarrhea/loose stools Genitourinary: no dysuria, no urinary hesitancy or no hematuria Musculoskeletal: no back pain Integumentary: no rash Neurologic: + paraesthesia of the hands Physical Exam Constitutional: + obese and + disheveled; not in distress Eyes: PERRL, conjunctivae normal, anicteric sclerae ENMT: external ear and nose normal, oropharynx normal Neck: trachea midline, no thyromegaly Respiratory: normal respiratory effort, lungs clear to auscultation Cardiovascular: Rate/Rhythm: regular rate and regular rhythm Extremities: + edema (trace LE swelling) and + AV fistula (L RC AVF + bruit) Gastrointestinal (Abdomen): normal bowel sounds, soft, nontender, no hepatosplenomegaly Musculoskeletal: Extremities: no cyanosis Skin: no rashes, warm and dry Neurologic: awake; not confused Results & Data ([facility]) Vital Signs (Past 12 Hours) Vital Signs Temp Pulse Pulse Resp BP Pulse Ox 11/27/20 05:01 92 H 11/27/20 04:04 37.0 C 95 H 20 166/86 H 97 11/26/20 23:00 36.9 C 91 H 19 130/70 96 Laboratory Results am labs are pending PG Care Time/CCT Total # of Minutes Spent Total Time Spent with Patient: Total time spent is greater than 50% in coordination of care (as documented) at patient's floor/unit and/or counseling patient: Coding Level of Care Code 03375 Subseq Hosp Care Lvl 3 Diagnoses ESRD (end stage renal disease) N18.6 Uncontrolled type 1 diabetes mellitus with kidney complication, with long-term current use of insulin E10.29; E10.65 Anemia N18.6; D63.1; Z99.2 Anemia type: due to chronic kidney disease Chronic kidney disease stage: on chronic dialysis Hyponatremia E87.1 (1) Anemia Anemia type: due to chronic kidney disease Chronic kidney disease stage: on chronic dialysis Qualified Code(s): N18.6 - End stage renal disease; D63.1 - Anemia in chronic kidney disease; Z99.2 - Dependence on renal dialysis
--- NOTE | 2020-11-27 10:17 | Hospitalist Progress Note ---
Date of Service November 27, 2020 Assessment & Plan (1) Uncontrolled type 1 diabetes mellitus with kidney complication, with long- term current use of insulin: Plan: Pt is 40 yo M with T1DM, ESRD on MWF dialysis presenting with HHS precipitated by poor treatment compliance and medication non-adherence 1) HHS -insulin drip, IV fluids stopped overnight -now on 50 units of levemir, with bolus mealtime insulin dosed by carb ratio -trend glucose and adjust regimen accordingly 2) ESRD -patient will likely resume MWF dialysis regimen tomorrow -Continue calcium acetate -consider scheduling outpatient stress test to determine health of coronary vasculature given pt's longstanding diabetic disease 3) HTN -Consider increasing carvedilol dose to 12.5 bid if pressures remain elevated 4) Diabetic neuropathy -Continue gabapentin and duloxetine 5) GERD -Continue Protonix 6) Hypothyroidism -Continue Synthroid 7) HLD -Continue Lipitor - (2) Hyperglycemia: (3) ESRD (end stage renal disease): (4) Anemia: (5) Hyponatremia: Plan: Admission and Anticipated Discharge Date Admission Date: November 25, 2020 Supervising Physician Co-Signing Physician Notes I personally examined the patient and verified all orourke points of history and exam, discussed case, and agree with decision making with Dr Amor. Feeling better overall. Continuing to educate on better diabetes control, basal bolus management, etc. Vitals noted, in general less fatigued and no distress. HEENT normocephalic atraumatic. Breathing unlabored no accessory muscle use good effort. Neuro shows hyperesthesia bilateral hands, but better than yesterday. Skin shows no rashes, pallor, icterus. Diffuse diabetic neuropathyhe has dense neuropathy with significant numbness in his feet. Is showing some improvementmay be a degree just nerve irritation from the hyperglycemia, although there is probably a degree of true neuropathic damage. Continue gabapentin, scheduled Tylenol, I wonder if he would benefit from topical compounded therapies to reduce some of his pain. Hyperglycemic dehydration with uncontrolled diabeteswhile he is a type I, I also strongly suspect he has insulin resistance/is both a type I or type IIgiven that his current picture seems clinically far more consistent with HHS type pathophysiology than purely DKA, as well as the fact that he has rather significant insulin requirements. Have discussed how positive lifestyle, while not curative for his diabetes like it was for his brother, could likely regress the insulin resistance and make life far easier for him to control his sugar. We also discussed the critical need for self control with this, educated on carb matching with insulin at mealtimes, he expressed surprisingly good understanding/his brother expressed a very good understanding. We reiterated these discussions yet again today. He is highly motivated to take care of himself more. Again reiterated "high sugars clog arteries" and my direct concern for his wellbeing given his young age and significant vascular endpoints. Hyponatremiapredominantly pseudohyponatremia from hyperglycemia. ESRDcontinue dialysis. High risk for cardiovascular diseasealready on a statin and beta-blockeradded an aspirin given that he is very high risk, in my clinical opinion the benefit outweighs the risk. He asked about a heart cathwe discussed that this probably would not be warranted given lack of symptoms, but with his already significant vascular endpoints, he is somebody that has enough pretest probability it is not unreasonable to consider stress testing in the near future. Otherwise as above Subjective Mr. Snell was resting comfortably in bed this morning. He reports feeling better than yesterday. He reports dressing himself this morning without feeling dizzy, and reports feeling less pain in his fingers. He opines that this is due to neuropathic progression to numbness. He denied SOB, headaches, dizziness, chest pain, nausea, or vomiting. He had not voided yet today but stated that he planned to shortly. Review of Systems Review of Systems: See HPI Physical Exam Physical Exam: resting comfortably in NAD Constitutional: WD/WN, vitals as above Respiratory: normal respiratory effort, lungs clear to auscultation Cardiovascular: RRR, no murmur, no edema Musculoskeletal: mildly tender to palpation at the fingers bilaterally. able to tolerate finger manipulation for capillary refill assessment Results & Data Results & Data ([facility]) Vital Signs (Past 12 Hours) Vital Signs Temp Pulse Pulse Resp BP Pulse Ox 11/27/20 09:34 93 H 11/27/20 05:01 92 H 11/27/20 04:04 37.0 C 95 H 20 166/86 H 97 11/26/20 23:00 36.9 C 91 H 19 130/70 96 Resident Activity Tracking Resident Involvement: Resident Care Provided Care Provided: Adult Hospital Medicine (1) Anemia Anemia type: due to chronic kidney disease Chronic kidney disease stage: on chronic dialysis Qualified Code(s): N18.6 - End stage renal disease; D63.1 - Anemia in chronic kidney disease; Z99.2 - Dependence on renal dialysis
[2020-11-27 15:54] LABS: BUN Creatinine Ratio 6.8 (10-20); Est GFR (African American) 11.8 ml/min; Est GFR (Non-African American) 10.2 ml/min; Potassium 3.9 mmol/L (3.5-5.1)
[2020-11-27] MEDS: CALCIUM ACETATE 667 MG CAP/TAB PO SCH (18:21)
--- NOTE | 2020-11-27 20:21 | Billing Data ---
Date of Service November 27, 2020 Coding Level of Care Code 79759 Subseq Hosp Care Lvl 3
[2020-11-27] MEDS ORDERED: INSULIN DETEMIR FLEXPEN/FLEX TOUCH 100 UNITS/ML 3ML SC SCH (21:00)
[2020-11-27] MEDS: ATORVASTATIN 40 MG TAB PO SCH (21:15)
[2020-11-27] MEDS: LEVOTHYROXINE SODIUM 50 MCG TABLET PO SCH (21:15)
[2020-11-28] MEDS ORDERED: EPOETIN ALFA 10,000 UNITS/ML VIAL IV ONE (07:00)
[2020-11-28] MEDS ORDERED: SODIUM CHLORIDE 0.9% 1000ML 1,000 ML IV PRN (07:00)
[2020-11-28] MEDS ORDERED: HEPARIN SOD (PORCINE) 1000 UNIT/ML IV ONE (07:00)
[2020-11-28 07:25] VITALS: TEMP 98.6; O2SAT 98
[2020-11-28] MEDS: INSULIN ASPART 100 UNITS/ML 3 ML PEN SC SCH ×3 (08:31→17:34)
--- NOTE | 2020-11-28 09:26 | Nephrology Progress Note ---
Date of Service November 28, 2020 Assessment & Plan (1) ESRD (end stage renal disease): Plan: * Volume status is markedly improved. Clinically patient appears to be near EDW. Hospital weight is likely not correct * Will schedule HD for this morning and attempt 3L UF * Mr. Snell will need to resume MWF HD at [facility] HD unit following discharge. Nephrology OV is not needed since he will be seen weekly at the HD unit (2) Uncontrolled type 1 diabetes mellitus with kidney complication, with long- term current use of insulin: Plan: * Patient admitted w/ DKA. Management as per hospitalist service * Now off insulin gtt. Basal insulin dose has been adjusted and sliding scale according to carb ratio reviewed with patient by primary service * If arm/hand pain persists, consider c-spine x-rays and nerve conduction studies (3) Anemia: Plan: * Will provide ANTHONY w/ HD today (4) Hyponatremia: Plan: * Mild, asymptomatic. In part related to hyperglycemia Admission and Anticipated Discharge Date Admission Date: November 25, 2020 Subjective Mr. Snell was evaluated prior to HD this morning. He reports that he is now back on SQ insulin w/ carb counting. His paraesthesias are mildly improved. He is tolerating a diabetic diet Review of Systems Constitutional: no fever Eyes: no problem reported Ear, Nose, Mouth, Throat: no problem reported Respiratory: no cough and no dyspnea Cardiovascular: no chest pain, no palpitations and no edema Gastrointestinal: no abdominal pain, no nausea, no vomiting and no diarrhea/loose stools Genitourinary: no dysuria, no urinary hesitancy or no hematuria Musculoskeletal: no back pain Integumentary: no rash Neurologic: + paraesthesia of the hands Physical Exam Constitutional: + obese and + disheveled; not in distress Eyes: PERRL, conjunctivae normal, anicteric sclerae ENMT: external ear and nose normal, oropharynx normal Neck: trachea midline, no thyromegaly Respiratory: normal respiratory effort, lungs clear to auscultation Cardiovascular: Rate/Rhythm: regular rate and regular rhythm Extremities: + edema (trace LE swelling) and + AV fistula (L RC AVF + bruit) Gastrointestinal (Abdomen): normal bowel sounds, soft, nontender, no hepatosplenomegaly Musculoskeletal: Extremities: no cyanosis Skin: no rashes, warm and dry Neurologic: awake; not confused Results & Data ([facility]) Vital Signs (Past 12 Hours) Vital Signs Temp Pulse Resp BP Pulse Ox 11/28/20 07:25 37 C 84 16 134/76 98 11/27/20 23:24 36.7 C 87 18 144/78 H 97 Laboratory Results Laboratory Tests 11/27/20 11/27/20 15:02 20:40 Sodium 128 L Potassium 3.9 Chloride 96 L Carbon Dioxide 22 BUN 44 H D Creatinine 6.32 H* D POC Glucose 254 H Calcium 9.0 PG Care Time/CCT Total # of Minutes Spent Total Time Spent with Patient: Total time spent is greater than 50% in coordination of care (as documented) at patient's floor/unit and/or counseling patient: Coding Level of Care Code 55327 Subseq Hosp Care Lvl 3 Diagnoses ESRD (end stage renal disease) N18.6 Uncontrolled type 1 diabetes mellitus with kidney complication, with long-term current use of insulin E10.29; E10.65 Anemia N18.6; D63.1; Z99.2 Anemia type: due to chronic kidney disease Chronic kidney disease stage: on chronic dialysis Hyponatremia E87.1 (1) Anemia Anemia type: due to chronic kidney disease Chronic kidney disease stage: on chronic dialysis Qualified Code(s): N18.6 - End stage renal disease; D63.1 - Anemia in chronic kidney disease; Z99.2 - Dependence on renal dialysis
[2020-11-28] MEDS: HEPARIN SOD (PORCINE) 1000 UNIT/ML IV SCH ×2 (10:23→10:24)
--- NOTE | 2020-11-28 13:14 | Pharmacy Report ---
Pharmacy Glycemic Short Note 2 - Date of Service November 28, 2020 - Glycemic Short BSG Results (Last 24 hours): 11/27/20 11/27/20 11/27/20 15:02 17:09 20:40 Glucose 268 H POC Glucose 279 H 254 H 11/28/20 08:14 Glucose POC Glucose 178 H OUTPATIENT ANTIDIABETIC REGIMEN: * Levemir 50 units SC HS * Novolog SSI (TDD up to 300 units/day) * HbA1c = 12.6% (11/25/20) * However, this result is likely somewhat unreliable in ESRD patients d/t interactions between the A1c analyzing technique and high levels of urea in ESRD, reduced RBC life span, iron deficiency anemia, and EPO administration. HbA1c > 7.5% in ESRD patient may overestimate the extent of hyperglycemia in ESRD patients. ASSESSMENT: 11/28/20 * BSGs yesterday were [phone] mg/dL Patient received 129 units of insulin (60 units of basal and 69 units of bolus). * Fasting remains elevated. Continue with Levemir 60 units but have higher dose in case BSGs remain elevated. * Continue Novolog as BSGs remained stable. Background * 40 yo M admitted secondary to HHS yesterday. Pharmacy has been consulted to assist with inpatient glycemic management. Patient is well known to our service. * Patient was started on an IV insulin infusion for HHS upon admission. Since then goal range has been tightened to 150-200 mg/dL and now to 140-180 mg/dL. Patient is still requiring over 5 units/hr currently. HHS symptoms have resolved and labs appear better. * He is ordered a diet and tolerating this. He underwent dialysis on 11/25/20. * Will order home basal dose to start this evening and hope to d/c insulin infusion tomorrow AM. PLAN FOR INPATIENT GLYCEMIC CONTROL: * Basal insulin * Levemir 60 units SC HS (66 units if BSG greater than 160 mg/dL) * Bolus insulin * NovoLog per scale ACHS or Q6hrs while NPO * Goal Range: Low 110 mg/dL - High 140 mg/dL * Correction Factor: 10 mg/dL/unit * Nutritional / Prandial insulin per carb ratio of 1 unit per 3 grams CHO consumed PLAN FOR DISCHARGE: * To be determined
--- NOTE | 2020-11-28 13:42 | Discharge Summary ---
Date of Service November 28, 2020 Admission HPI Per Admitting Provider Pt is 40 yo M with PMH of T1DM, HTN, HLD, ESRD with dialysis MWF at [facility] for past 3 years, 2 prior diabetic comas, history of poor treatment compliance and medication non-adherence presenting with 5 days of generalized weakness and dizziness. Pt states he initially felt weak and dizzy on 11/20. This persisted throughout the week, during which he visited the ED 2x, once for a diffuse but non-distressing rash he attributed to a wool blanket and once for pain from his peripheral neuropathy. Pt's peripheral neuropathy has worsened and he reports little relief from his gabapentin. Pt states he has been more thirsty this week but has not urinated excessively. On 11/24, pt was sleepy and tired for nearly the entire day, spending the majority of it in bed. He was still able to attend his 2 dialysis sessions this week. Attempted to go to today's dialysis session in the morning but felt increasingly ill and came to [facility] ED. On further exploration of his diabetes management, pt reports he drinks much water throughout the day but only has a single large meal for dinner- including hot dogs, burgers, shrimp and rice, etc. He does not regularly check his blood sugars, only doing so when he feels ill and note them to be 200s/300s. He usually takes between 60-100 units of Novolog before his dinner but regularly forgets to take his Levemir 50 units before bed. Pt states he has been hospitalized 3 times for diabetes complications, but could not recall details of diagnosis or management. Admission Exam Per Admitting Provider Constitutional: + ill appearing and + obese; no acute distress Eyes: no scleral abnormality and no corneal abnormality ENMT: Mouth: no oral mucosal abnormality and oral mucous membranes not dry Neck: normal visual inspection and trachea midline Respiratory: normal respiratory effort Auscultation: lungs clear to auscultation bilaterally and + rales Cardiovascular: Rate/Rhythm: regular rate Heart Sounds: normal S1 and normal S2 Extremities: + edema and + AV fistula Musculoskeletal: Extremities: no cyanosis and no clubbing Skin: normal turgor; no lesions Stasis dermatitis of b/l LE Neurologic: Motor/Sensory: no tremor and no asterixis Psychiatric: alert and oriented x 3 Principal Diagnosis Hyperosmolar hyperglycemic syndrome (HHS) Discharge Exam Constitutional WD/WN, vitals as above Respiratory normal respiratory effort, lungs clear to auscultation Cardiovascular RRR, no murmur, no edema Gastrointestinal (Abdomen) normal bowel sounds, soft, nontender, no hepatosplenomegaly Musculoskeletal no cyanosis or clubbing, extremities motor strength 5/5 Mildly tender to palpation at the fingers bilaterally (at his baseline) Psychiatric A+Ox3, euthymic affect Discharge Data Allergies Allergy/AdvReac Type Severity Reaction Status Date / Time lisinopril AdvReac Intermediate COUGH Verified 11/25/20 08:10 Consultations 11/25/20 07:10 ED Decision to Admit Stat 11/25/20 15:52 Consult Nephrology Routine Diabetes Follow up Diabetes Follow-up Needed for HgbA1c >9% Hospital Course (1) Hyperosmolar hyperglycemic state (HHS): Patient has a longstanding history of T1DM with insulin resistance and presented to the ED with exacerbation of diabetic neuropathic pain secondary to poor medication compliance. Labs were consistent with HHS versus DKA and the p atient was admitted. Initial EKG showed normal sinus rhythm. Patient was treated with IV fluids and IV insulin and subsequently transitioned to subQ lantus/novolog while monitoring glucose levels. Electrolytes were monitored with correction and patient continued gabapentin and duloxetine for neuropathic relief. Patient also has a history of ESRD and underwent multiple treatments for fluid retention with dialysis during his stay. Pharmacy was consulted for BSG medication management and glucose levels have now stabilized to his goal of 140- 180 mg/dl on Levemir 50 units SC HS and Novolog per scale ACHS. Over his last day, patient received 129 units of insulin (60 units of basal and 69 units of bolus). Patients neuropathy pain level has returned to his baseline. Patient was educated multiple times on diabetic management during his stay. Due to patients high cardiovascular risk, patient was also placed on 81mg aspirin in addition to his statin he was already taking at home. Outpatient antidiabetic regimen will be as follows: Levemir 50mg once a day before bedtime and Novalog 20mg before each meal which can then be adjusted if necessary. Patient should also follow up with his PCP in the next 7 days and with endocrinology at some point in the near future. He should highly consider going back onto a continuous glucose monitor and eventually consider an insulin pump. Furthermore, since he has a high cardiovascular risk, patient should be considered for a cardiac stress test in the outpatient setting. Total Time Total Time Spent Total Time Spent (In Minutes): 45 Discharge Plan Discharge Items Patient Disposition: Home - Self-Care Reason For Visit: HYPERGLYCEMIA, MALAISE Discharge Diagnosis: Hyperosmolar hyperglycemic syndrome (HHS) Activity: Per Instructions section Non-emergency contact: Primary Care Provider Call non-emergency contact if: you have any medication questions, your symptoms worsen and your pain is not controlled Follow-up/Referrals: Landry Parham PA-C [[employer] Floor[employer]] - 11/29/20 10:30 am (within 4 weeks) Maki Peterson MD [Primary Care Provider] - 12/07/20 3:00 pm Diet: Carb Count or DM1 Addtl Attending Provider Instructions: Uncontrolled diabetes -As we discussed, the main reason to care about sugar control is "high sugars clog arteries"higher sugars are, and the longer they run high, the more you knock off blood vessels you cannot get back. -Already, as the neuropathy is because of high sugars blocking up arteries to your nerves, and the end-stage renal disease/dialysis is from high sugars blocking of the arteries to your kidneys. -Fortunately you have not shown symptoms of heart attack or stroke yet, and we definitely will want to take steps to reduce those risks (a lot of your meds already are very protective to your heart, and even though "primary prevention" is a little more controversial, you are exactly the type of person who I would recommend being on an 81 mg aspirin daily, and less it started to cause problems). This has already been sent to your pharmacy but it can also be bought over the counter. Further, as we discussed, while we normally do not do stress testing in an asymptomatic person, your risk of having coronary disease is high enough, it would be reasonable to consider that in the near future too. -You should also discuss with your PCP or an lunchroom monitor using a continuous glucose monitor for better control of your diabetes as you have in the past. They can help you get set up with one or possible educate you on the one you have at home if you are able to find it. Down the road, if you show good glycemic control with regular glucose monitoring we can consider an insulin pump which would be greatly beneficial to you and your medication compliance. -As far as taking control, the plan we have been working on together is as follows: Insulin- Basal: Because normal metabolism has a base of insulin secretion to get sugar out of our bloodstream and into our muscles even in a fasting state, we will need to have you on a basal insulin to cover your fasting metabolism. Glargine (Lantus, Toujeo, etc.) and detemir (Levemir) are both pretty similar. Both kick in about 2 hours after you take it, last for 18 to 20 hours without any real peak inactivity, and then start to wear off over the last 4 to 6 hours. -Because you appear to have insulin resistance (like we discussed you look like both a type I and a type II diabetic), it makes sense for you to take your basal/long-acting insulin dose as a twice a day medicine (for you the insulin wearing off over the last 4 to 6 hours would likely result in rising sugars during that time) -You should be on 50 units of basal insulin (Levemir) once a day before bedtime. -Generally speaking, fasting sugar readings are a good way to "grade" your dose of the basal insulin. Therefore the sugar you first check in the morning, as well as sugars you check when you have not eaten in a while, will be a good way to help work together with Dr. Peterson on whether or not you are still on the right amount of the basal insulin. -While technically a normal fasting sugar is about 70-99, given that we also do not want to creating low sugars with the insulins, a pretty reasonable fasting sugar would be between about 100 to 140 Bolus: -The basal insulin does not adjust when we eat. Therefore we need short acting insulin to cover the carbohydrates that we eat, get that sugar out of our bloodstream, and into our muscles. In my experience, most of my uncontrolled diabetics cause the most damage to the blood vessels by not managing mealtime sugars enough -NovoLog and Humalog are the 2 most common short acting insulins we used. Both basically work the same. Both kick in about 15 minutes after you take it, reached a peak of activity about 90 minutes after you take it, and wear off about 3 to 4 hours after you take it. They are designed to mimic the timeframe food gets absorbed after we eat. -When you eat foods that have more carbohydrates in them, you will need more insulin to get those carbs out of your bloodstream and into your muscles. When you eat foods with less carbohydrates in them, you will need less insulin to get the carbs out of your bloodstream and into your muscles. Over time, with practice, you will be able to start to learn roughly how much insulin to take at each meal. -As you are working on this, a reasonable starting point when you are not sure would be to give yourself 20 units of insulin at a meal. -What is absolutely critical with this method of insulin management, is checking her sugar about 2 hours after you have eaten/giving yourself the insulin to "grade your work" -A good reading for sugar 2 hours after eating would be to be between [id number]. -If you have eaten something and your sugar is higher, you will first want to think about whether or not you should eat that type of food again, but you will also want to take more insulin the next time you eat that, or something similar. -Conversely, if you eat something and have a low sugar, then you will want to give yourself less insulin the next time you eat that, or something similar. -Typically, we tend to find the people do the best if their total insulin in a day is about 50% basal, and about 50% bolus. What that means in practical reality, is if you start to see that your day to day management has you taking way more basal than bolus, we may need to help you adjust things, or vice versa. However, since you tend to eat only 1 or 2 meals a day, we may find over time that you are slightly more skewed to basal insulin than bolus. These will be things that are easy, but high maintenance, to figure out. Basically with a careful log of what you ate, how much insulin you took, and what your sugar is 2 hours later, it becomes fairly easy to help determine troubles with bolus (mealtime) dosing. Likewise, with a careful log of all of that plus some fasting sugars, it becomes fairly easy to get a good idea of adjustments we might need to do with the basal insulin. Because this is best managed with lots of sugar checks throughout the day, if feasible, some form of continuous glucose monitor would likely make this a lot easier for you. -As we discussed, over time, an insulin pump may be a good idea. The reason we would move there right now, is that a pump does not do "the thinking" for you. Instead, a pump allows you to do basal and bolus insulin by adjusting numbers on the pump, that continuously infuses insulin in, rather than having to do injections. While somebody is still getting used to managing their sugars well, an insulin pump can actually be more dangerous than helpful, since it can create the false impression of being "on autopilot" -Definitely learn from your brother. It sounds like he did quite a good job of managing mealtime sugars with insulin when he was on insulin, and just as importantly he learned the diet changes that can regress/"put into remission" type 2 diabetes. In the immediate setting, having him help you troubleshoot what you are doing with insulin each meal could be invaluable. I often wish th at I could be next to my diabetic patients at meals for a while, and you actually have that with your brother. Also, while we cannot cure type 1 diabetes, if you learn from his eating changes, you can likely regress your insulin resistance (essentially "cure" the type 2 diabetes part of your metabolism), and that will make life much easier/make your diabetes much easier to manage overall. Pending Studies at Discharge: No Stand-Alone Forms: [facility] [employer], Opioid Pain Management, Work/School Release, Smoking Cessation Medications and DC Order Prescriptions: New aspirin 81 mg tablet,delayed release (DR/EC) 81 mg PO DAILY Qty: 30 RF: 0 Continued (DME) Ketostix Strip See Rx Instructions .ROUTE .MEDSUPPLY Qty: 100 RF: 3 atorvastatin [Lipitor] 80 mg tablet 80 mg PO HS Qty: 30 RF: 5 insulin aspart U-100 [Novolog Flexpen U-100 Insulin] 100 unit/mL (3 mL) insulin pen 300 unit SQ DAILY Qty: 90 RF: 5 Levemir FlexTouch U-100 Insuln 100 unit/mL (3 mL) insulin pen 50 unit SQ HS 30 Days Qty: 15 RF: 3 (DME) pen needle, diabetic [Comfort EZ Pen [place]] 29 gauge x 1/2" needle See Rx Instructions .ROUTE .MEDSUPPLY Qty: 400 RF: 3 (DME) OneTouch Verio test strips Strip See Rx Instructions .ROUTE .MEDSUPPLY Qty: 400 RF: 3 (DME) blood-glucose meter [OneTouch Verio Flex meter] Misc See Rx Instructions .ROUTE .MEDSUPPLY Qty: 1 RF: 0 calcium acetate [Calphron] 667 mg tablet 667 mg PO TIDM RF: 0 (DME) lancets [OneTouch Delica Lancets] 33 gauge misc See Rx Instructions .ROUTE .MEDSUPPLY Qty: 400 RF: 3 levothyroxine [Synthroid] 50 mcg tablet 50 mcg PO PM RF: 0 diphenhydramine HCl [Benadryl Allergy] 25 mg Tablet 25 mg PO DIRECTED RF: 0 bumetanide 2 mg tablet See Rx Instructions .ROUTE .COMPLEX RF: 0 duloxetine [Cymbalta] 60 mg capsule,delayed release(DR/EC) 60 mg PO QAM RF: 0 Triphrocaps 1 mg capsule 1 cap PO 3XWK RF: 0 carvedilol [Coreg] 12.5 mg tablet 6.25 mg PO BID RF: 0 pantoprazole [Protonix] 40 mg tablet,delayed release (DR/EC) 40 mg PO QAM RF: 0 gabapentin [Neurontin] 300 mg capsule 600 mg PO BID RF: 0 Discharge Orders: Discharge Order (Routine); Ordered 11/28/20 Ordered By: Ramy Kwan/Other Patient Handouts: High Blood Sugar (Hyperglycemia), Hypoglycemia (Low Blood Sugar), Diabetes: Keeping Feet Healthy, Diabetes: Caring for Your Body, Managing Diabetes: The A1C Test, Diabetic Ketoacidosis, Hyperglycemia Steps, Facts About Diabetes Admission Data Admit Date/Time: 11/25/20 07:54 Attending Provider: Maureen Allan Admit Provider: Talib Glover Primary Care Provider: Maki Peterson Other Providers: Talib Glover ; Zachary Ibanez Other Interventions: Discharge Summary Assessment (RN) Last Done: 11/28/20 16:51 Supervising Physician Co-Signing Physician Notes Patient seen and examined with PGY-1 Dr. Blum. Agree with history, exam findings, assessment and plan of care as outlined. In brief, Ventura is a 40 year old male with DM1, ESRD on MWF dialysis admitted with [facility]. Seen during dialysis. Feeling ok. Feeling motivated to keep blood sugars at goal. Interested in an insulin pump, but does realize that he would need to show diligence regarding insulin and glucose control. Vital signs and nursing notes reviewed. Well appearing. Mucous membranes are moist. Heart Labs and imaging reviewed. 40 year old male with DM1, ESRD on MWF dialysis admitted with HHS. 1. HHS. 50u leveminr with bolus insulin with meals. 2. ESRD on dialysis. MWF regimen. Nephrology consult. 3. Anemia of chronic disease. Continue epogen as directed by nephrology. 4. HTN. Continue coreg 6.25mg BID. 5. Neuropathy secondary to diabetes. Continue home gabapentin and duloxetine. Dispo: discharge home today with close follow up with PCP and endocrinology. I personally spent 35 minutes discharge planning for this patient. Resident Activity Tracking Resident Involvement: Resident Care Provided Care Provided: Adult [facility]
[2020-11-28 13:48] VITALS: PULSE 99
[2020-11-28] MEDS: ACETAMINOPHEN 325 MG TAB PO SCH ×2 (14:13→14:22)
[2020-11-28] MEDS: CALCIUM ACETATE 667 MG CAP/TAB PO SCH ×3 (14:13→17:40)
[2020-11-28] MEDS: GABAPENTIN 600 MG TAB PO SCH (14:22)
[2020-11-28] MEDS: PANTOprazole 40 MG TAB PO SCH (14:23)
[2020-11-28] MEDS: carvediloL 6.25 MG TAB PO SCH (14:23)
[2020-11-28] MEDS: DULoxetine HCL 60 MG CAP PO SCH (14:24)
[2020-11-28] MEDS: ASPIRIN 81 MG ECTAB PO SCH (14:25)
[2020-11-28 17:01] VITALS: BP 135/77
== END 2020-11-28 17:57 | disposition home or self-care (01) | DRG 637 ==
LOC: ED 05:25 → SUATTDRO 07:54 → 2E 07:54 → 3W 11-27 12:51

== ENCOUNTER 2021-04-28 10:55 | Inpatient (IN) ==
[2021-04-28] MEDS ORDERED: ACETAMINOPHEN 500 MG TAB PO STA (11:21)
--- NOTE | 2021-04-28 12:00 | XRay Report ---
XR chest 1V portable HISTORY: 40 years-old Male SEPSIS acute sepsis COMPARISON: Chest radiograph 10/19/2020 TECHNIQUE: Portable AP view of the chest FINDINGS: Cardiac silhouette is enlarged. No pneumothorax, pleural effusion, airspace consolidation or overt pu lmonary edema. Degenerative changes of the shoulders and spine. Mild right hemidiaphragmatic elevatio n. IMPRESSION: Cardiomegaly without acute process. ACT 112: Negative or not required by law. The above report was generated using voice recognition software. It may contain grammatical, syntax o r spelling errors. Electronically signed by: Alonso Marks M.D. 04/28/2021 11:59 AM
[2021-04-28 12:27] LABS: Basophils # (auto) 0.01 K/uL (0-0.2); Basophils % (auto) 0.3 %; Eosinophils # (auto) 0.03 K/uL (0-0.5); Hematocrit (blood only) 38.5 % (42-52); Hemoglobin 12.7 g/dL (14.0-18.0); Lymphocytes # (auto) 0.63 K/uL (1.2-3.4); Lymphocytes % (auto) 20.6 %; Mean Corpuscular Hemoglobin 30.8 pg (25-34); Mean Corpuscular Volume 93.4 fL (80-100); Mean Platelet Volume 10.7 fL (7.4-10.4); Monocytes # (auto) 0.25 K/uL (0.11-0.59); Monocytes % (auto) 8.2 %; Neutrophils # (auto) 2.14 K/uL (1.4-6.5); Neutrophils % (auto) 69.9 %; Platelet Count 166 K/uL (130-400); RDW Coefficient of Variation 13.9 % (11.5-14.5); RDW Standard Deviation 47.4 fL (36.4-46.3); Red Blood Count 4.12 M/uL (4.7-6.1); White Blood Count 3.06 K/uL (4.8-10.8)
[2021-04-28 12:49] LABS: Alanine Aminotransferase 54 (12-78); Albumin Globulin Ratio 0.8 (0.9-2); Albumin Level 3.6 gm/dl (3.4-5.0); Alkaline Phosphatase 184 U/L (45-117); Aspartate Aminotransferase 34 U/L (15-37); BUN Creatinine Ratio 6.6 (10-20); Bilirubin,Total 0.7 mg/dl (0.2-1); Blood Urea Nitrogen 41 mg/dl (7-18); Calcium 9.5 mg/dl (8.5-10.1); Carbon Dioxide 26 mmol/L (21-32); Chloride 99 mmol/L (98-107); Creatinine Clr Calc Pharmacy 20.3 ml/min; Est GFR (African American) 11.8 ml/min; Est GFR (Non-African American) 10.1 ml/min; Globulin 4.7 gm/dl (2.5-4.0); Glucose 442 mg/dl (70-99); Potassium 4.5 mmol/L (3.5-5.1); Sodium 134 mmol/L (136-145); Total Protein 8.3 gm/dl (6.4-8.2); Troponin I < 0.015 ng/ml (0-0.045)
[2021-04-28 13:01] LABS: Influenza A virus by PCR Negative (Neg); Influenza B virus by PCR Negative (Neg); RSV by PCR Negative (Neg)
[2021-04-28] MEDS ORDERED: NovoLIN-R INSULIN PER UNIT CHARGE IV STA (13:05)
[2021-04-28] MEDS ORDERED: SODIUM CHLORIDE 0.9% 1000ML 500 ML IV ONE (13:05)
[2021-04-28 13:18] LABS: SARS CoV2 RNA(COVID-19) InHosp POSITIVE (Negative)
--- NOTE | 2021-04-28 13:18 | Emergency Department Note ---
Impression & Plan Hyperglycemia due to diabetes mellitus, Type 1 diabetes ED Provider Note CHIEF COMPLAINT: Body aches, fever, chills. Dialysis HISTORY OF PRESENT ILLNESS: This 40 yo male patient presents to the emergency department with c/o body aches, fever, chills. Patient was at dialysis today and received half of a treatment prior to the onset of symptoms. He states there was a plumbing issue that stopped his treatment short. Shortly thereafter he developed some chills and body aches. He denies any symptoms prior to dialysis but admits to a headache yesterday. He states his brother is at home with similar symptoms. He has been able to eat and drink without difficulty. He states his blood sugars have been fairly well controlled but somewhere in the 200-300 range. Patient states his feet have "been a mess." He states he checks them every night and denies any infections such as cellulitis or ulcerations. He states he has athlete's foot and he did have one toenail fall off. He denies any recent cough or shortness of breath. He has had no vomiting or diarrhea. REVIEW OF SYSTEMS: A review of systems was performed with positives and pertinent negatives listed in the history of present illness. 10 systems were reviewed and are otherwise negative. ALLERGIES: see below MEDICATIONS: see below PMH: see below SOCIAL HISTORY: see below Viral syndrome/ COVID, otitis, pharyngitis, pneumonia, influenza, meningitis, urinary tract infection, sepsis, bacteremia, as well as other pathologies. PHYSICAL EXAM: Vital signs reviewed. General: Chronically ill-appearing, obese 40-year-old male, in no significant distress. HEENT: No scleral icterus, PERRLA, neck supple. Atraumatic. Cardiovascular: Tachycardic but regular rate and rhythm, no extra sounds. Pulmonary: Clear to auscultation bilaterally, normal work of breathing. Abdomen: Soft, obese, nontender, nondistended, positive bowel sounds. Musculoskeletal: Atraumatic, no peripheral edema. Neurologic: Patient awake alert and oriented x 3, speech is clear Skin: Warm, dry, fungal changes to the toenails bilaterally with calloused caking skin to dorsum feet BLE EMERGENCY DEPARTMENT COURSE/MDM: This patient was evaluated and appeared to be in no significant distress. IV access was obtained and laboratory work was drawn. Patient was placed on the cardiac exercise physiologist and noted to be in a sinus tachycardia. He was hydrated with normal saline solution, given a 500 mL bolus and 150 mL's per hour as he is a dialysis patient and only received one half of a treatment this morning. Patient's laboratory work is notable for an elevated glucose of 442. Patient was given 10 units of IV regular insulin. Patient's lactate is 2.6 and Covid swab is positive. Patient is not notably hyper toxic read as heavily grade fever in addition to the notable abnormalities above, it is felt that he will likely require dialysis after fluid resuscitation for his hyperglycemia and elevated lactate. Given the patient's morbid obesity, end- stage renal disease/hemodialysis and diabetes, he would not likely fare well with COVID and will likely need more aggressive care. Hospitalist service has been consulted for further management. MONITORING: An order for cardiac monitoring was placed and the patient is noted to be in a sinus tachycardia at 113 beats per minute. RADIOLOGY: below EKG: Sinus tachycardia at 116 bpm. QTc is 453. No PVC, no PAC. Normal ST segments. 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 DISPOSITION: Hospitalist evaluation Past Med/Surg History Medical History Chronic venous insufficiency Depression Diabetic peripheral neuropathy associated with type 1 diabetes mellitus Diabetic retinopathy Erectile dysfunction ESRD (end stage renal disease) requiring hemodialysis. MWF at [facility]. GERD (gastroesophageal reflux disease) Well controlled and stable H/O febrile seizure as a child (every year until he was 11 years old) no problems since. High cholesterol Hypertension Hypothyroidism Port-A-Cath in place chest area dialysis Thrombosis of arteriovenous dialysis fistula (~02/15/20) Surgical History H/O detached retina repair History of esophagogastroduodenoscopy (EGD) S/P arteriovenous (AV) fistula creation left side, unable to use Family History Mother Diabetes Coronary heart disease Hypertension Father Coronary heart disease Hypertension Brother Coronary heart disease Kidney disease Uncle Colorectal cancer Grandmother Diabetes Aunt Diabetes Unknown Dyslipidemia Other Cancer No family history of adverse response to anesthesia Social History Smoking Status: Never smoker Second Hand Exposure: No; Hx Alcohol Use: No Hx Substance Use: No Preferred Language: Greek Communication Ability: Effective Visual Impairment: No Limitations Hearing Ability: Normal Central Service Technician Required: No Beliefs That Will Affect Care: None marital status: Single Current Living Situation: Alone Current Living Situation Comment: apartment lives with brother 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" Feels Safe at Home: Yes Dental Care, Regularly: No Physical Activity Frequency: Does not Exercise Seatbelt Use: always Sunscreen Use: No Allergies Allergies Allergy/AdvReac Type Severity Reaction Status Date / Time lisinopril AdvReac Intermediate COUGH Verified 04/28/21 15:03 Home Meds Home Medications Medication Instructions Recorded Confirmed calcium acetate 667 mg tablet 667 mg PO TIDM tab 07/14/19 04/28/21 (Calphron) levothyroxine 50 mcg tablet 50 mcg PO PM 03/23/20 04/28/21 (Synthroid) diphenhydramine HCl 25 mg tablet 25 mg PO DIRECTED PRN 11/02/20 04/28/21 (Benadryl Allergy) pantoprazole 40 mg tablet,delayed 40 mg PO QAM 11/25/20 04/28/21 release (Protonix) vitamin B complex and vitamin C 1 cap PO 3XWK 11/25/20 04/28/21 no.20-folic acid 1 mg capsule (Triphrocaps) insulin aspart U-100 100 unit/mL 30 unit SUBCUT DAILY 04/28/21 04/28/21 (3 mL) subcutaneous pen Previous Rx's Medication Instructions Recorded OneTouch Delica Lancets 33 gauge #400 ea NS 10/16/19 (lancets) blood sugar diagnostic (OneTouch #400 ea 01/29/20 Verio test strips) blood-glucose meter (OneTouch #1 ea 01/29/20 Verio Flex meter) acetone (urine) test (Ketostix) #100 ea 02/18/20 aspirin 81 mg tablet,delayed 81 mg PO DAILY #30 tab 11/26/20 release atorvastatin 80 mg tablet (Lipitor) 80 mg PO HS #30 tab 12/08/20 bumetanide 2 mg tablet 2 mg .ROUTE DAILY #90 tab 12/30/20 duloxetine 60 mg capsule,delayed 60 mg PO DAILY #90 cap 01/11/21 release (Cymbalta) Levemir FlexTouch U-100 Insuln 100 50 unit SQ HS 30 Days #15 ml NS 01/25/21 unit/mL (3 mL) subcutaneous pen (insulin detemir U-100) acetaminophen 300 mg-codeine 30 mg 1 tab PO HS PRN #30 tab 01/25/21 tablet carvedilol 12.5 mg tablet (Coreg) 12.5 mg PO BID #180 tab 01/25/21 pen needle, diabetic 29 gauge x #400 ea 01/25/21 1/" (Comfort EZ Pen [place]) gabapentin 300 mg capsule 600 mg PO BID #120 cap 02/06/21 (Neurontin) Results & Data (ED) Vital Signs Vital Signs - 24 hr 04/28/21 11:00 04/28/21 11:30 04/28/21 12:00 Temperature 38.2 C H Temperature Source Oral Pulse Rate 116 H 115 H 118 H Pulse Rate [Apical] Pulse Rate from SpO2 Sensor 116 H 118 H Pulse Rhythm Regular Pulse Rhythm [Apical] Pulse Strength Normal Pulse Strength [Apical] Respiratory Rate 19 19 14 Respiratory Effort / Characteristics Non-Labored Spontaneous Respiratory Depth Normal Respiratory Pattern Regular Blood Pressure 180/84 H 136/87 Blood Pressure [Right Arm] Blood Pressure Mean 116 103 Blood Pressure Mean [Right Arm] Blood Pressure Position Lying Blood Pressure Position [Right Arm] Pulse Oximetry 98 99 97 Oxygen Delivery Method Room Air Sepsis Recent Fever Within 48 Hours Yes Sepsis New/Unexplained Change in Mental Status No Sepsis Action Taken by Nursing No Action Required 04/28/21 12:30 04/28/21 13:00 04/28/21 13:59 Temperature 36.9 C Temperature Source Oral Pulse Rate 113 H 113 H Pulse Rate [Apical] 111 H Pulse Rate from SpO2 Sensor 113 H 113 H Pulse Rhythm Pulse Rhythm [Apical] Regular Pulse Strength Pulse Strength [Apical] Normal Respiratory Rate 17 18 20 Respiratory Effort / Characteristics Non-Labored Spontaneous Respiratory Depth Normal Respiratory Pattern Regular Blood Pressure Blood Pressure [Right Arm] 134/80 Blood Pressure Mean Blood Pressure Mean [Right Arm] 98 Blood Pressure Position Blood Pressure Position [Right Arm] Sitting Pulse Oximetry 97 95 96 Oxygen Delivery Method Room Air Sepsis Recent Fever Within 48 Hours Sepsis New/Unexplained Change in Mental Status Sepsis Action Taken by [facility] Medications Current Medication List: was personally reviewed by me Laboratory Data Attestation: I reviewed the patient's lab results. Result diagrams: 04/28/21 11:46 04/28/21 11:46 Lab Results 04/28/21 04/28/21 04/28/21 Range/Units 11:46 11:46 11:46 WBC 3.06 L (4.8-10.8) K/uL RBC 4.12 L (4.7-6.1) M/uL Hgb 12.7 L (14.0-18.0) g/dL Hct 38.5 L (42-52) % MCV 93.4 (80-100) fL MCH 30.8 (25-34) pg MCHC 33.0 (32-36) g/dL RDW Std Deviation 47.4 H (36.4-46.3) fL RDW Coeff of Yuki 13.9 (11.5-14.5) % Plt Count 166 (130-400) K/uL MPV 10.7 H (7.4-10.4) fL Immature Gran % (Auto) 0.0 % Neut % (Auto) 69.9 % Lymph % (Auto) 20.6 % [place] % (Auto) 8.2 % Eos % (Auto) 1.0 % Baso % (Auto) 0.3 % Neut # (Auto) 2.14 (1.4-6.5) K/uL Lymph # (Auto) 0.63 L (1.2-3.4) K/uL [place] # (Auto) 0.25 (0.11-0.59) K/uL Eos # (Auto) 0.03 (0-0.5) K/uL Baso # (Auto) 0.01 (0-0.2) K/uL Immature Gran # (Auto) 0.00 (0.00-0.02) K/uL Sodium 134 L (136-145) mmol/L Potassium 4.5 (3.5-5.1) mmol/L Chloride 99 (98-107) mmol/L Carbon Dioxide 26 (21-32) mmol/L Anion Gap 9.0 (3-11) BUN 41 H (7-18) mg/dl Creatinine 6.33 H* (0.6-1.4) mg/dl Est Cr Clr Drug Dosing 20.3 ml/min Est GFR ( Amer) 11.8 ml/min Est GFR (Non-Af Amer) 10.1 ml/min BUN/Creatinine Ratio 6.6 L (10-20) Glucose 442 H* (70-99) mg/dl Lactate 2.6 H* (0.4-2.0) mmol/L Calcium 9.5 (8.5-10.1) mg/dl Magnesium 2.0 (1.8-2.4) mg/dl Total Bilirubin 0.7 (0.2-1) mg/dl AST 34 (15-37) U/L ALT 54 (12-78) Alkaline Phosphatase 184 H (45-117) U/L Troponin I < 0.015 (0-0.045) ng/ml Total Protein 8.3 H (6.4-8.2) gm/dl Albumin 3.6 (3.4-5.0) gm/dl Globulin 4.7 H (2.5-4.0) gm/dl Albumin/Globulin Ratio 0.8 L (0.9-2) Beta-Hydroxybutyric Acd 1.87 (0.2-2.81) mg/dl Procalcitonin (0-0.5) ng/ml SARS-CoV-2 (PCR) (Negative) Influenza Type A (PCR) (Neg) Influenza Type B (PCR) (Neg) RSV (RT-PCR) (Neg) 04/28/21 04/28/21 04/28/21 Range/Units 11:46 12:06 13:51 WBC (4.8-10.8) K/uL RBC (4.7-6.1) M/uL Hgb (14.0-18.0) g/dL Hct (42-52) % MCV (80-100) fL MCH (25-34) pg MCHC (32-36) g/dL RDW Std Deviation (36.4-46.3) fL RDW Coeff of Yuki (11.5-14.5) % Plt Count (130-400) K/uL MPV (7.4-10.4) fL Immature Gran % (Auto) % Neut % (Auto) % Lymph % (Auto) % [place] % (Auto) % Eos % (Auto) % Baso % (Auto) % Neut # (Auto) (1.4-6.5) K/uL Lymph # (Auto) (1.2-3.4) K/uL [place] # (Auto) (0.11-0.59) K/uL Eos # (Auto) (0-0.5) K/uL Baso # (Auto) (0-0.2) K/uL Immature Gran # (Auto) (0.00-0.02) K/uL Sodium (136-145) mmol/L Potassium (3.5-5.1) mmol/L Chloride (98-107) mmol/L Carbon Dioxide (21-32) mmol/L Anion Gap (3-11) BUN (7-18) mg/dl Creatinine (0.6-1.4) mg/dl Est Cr Clr Drug Dosing ml/min Est GFR ( Amer) ml/min Est GFR (Non-Af Amer) ml/min BUN/Creatinine Ratio (10-20) Glucose (70-99) mg/dl Lactate 2.4 H* (0.4-2.0) mmol/L Calcium (8.5-10.1) mg/dl Magnesium (1.8-2.4) mg/dl Total Bilirubin (0.2-1) mg/dl AST (15-37) U/L ALT (12-78) Alkaline Phosphatase (45-117) U/L Troponin I (0-0.045) ng/ml Total Protein (6.4-8.2) gm/dl Albumin (3.4-5.0) gm/dl Globulin (2.5-4.0) gm/dl Albumin/Globulin Ratio (0.9-2) Beta-Hydroxybutyric Acd (0.2-2.81) mg/dl Procalcitonin 1.62 H (0-0.5) ng/ml SARS-CoV-2 (PCR) POSITIVE A* (Negative) Influenza Type A (PCR) Negative (Neg) Influenza Type B (PCR) Negative (Neg) RSV (RT-PCR) Negative (Neg) Administered Medications Sodium Chloride (Nss 1000ml) 1,000 mls @ 150 mls/hr IV .[id number] CHASE Stop: 05/28/21 13:29 Last Admin: 04/28/21 14:13 Dose: Not Given Documented by: [id number] Discontinued Medications Acetaminophen (Acetaminophen 500 Mg Tab) 1,000 mg PO NOW STA Stop: 04/28/21 11:22 Last Admin: 04/28/21 12:09 Dose: 1,000 mg Documented by: [id number] Sodium Chloride (Nss 1000ml) 500 mls @ 999 mls/hr IV .Q31M ONE Stop: 04/28/21 13:35 Last Infusion: 04/28/21 14:36 Dose: 0 mls/hr Documented by: [id number] Admin: 04/28/21 14:12 Dose: 999 mls/hr Documented by: [id number] Insulin Human Regular (Novolin-R Insulin Per Unit Charge) 10 units IV NOW STA Stop: 04/28/21 13:06 Last Admin: 04/28/21 13:50 Dose: 10 units Documented by: [id number] Cosigned by: [id number] Imaging Data Radiologist's Impression: Chest X-Ray 04/28/21 11:18 XR chest 1V portable HISTORY: 40 years-old Male SEPSIS acute sepsis COMPARISON: Chest radiograph 10/19/2020 TECHNIQUE: Portable AP view of the chest FINDINGS: Cardiac silhouette is enlarged. No pneumothorax, pleural effusion, airspace consolidation or overt pulmonary edema. Degenerative changes of the shoulders and spine. Mild right hemidiaphragmatic elevation. IMPRESSION: Cardiomegaly without acute process. ACT 112: Negative or not required by law. The above report was generated using voice recognition software. It may contain grammatical, syntax or spelling errors. Electronically signed by: Alonso Marks M.D. 04/28/2021 11:59 AM Blood Pressure Blood Pressure Findings: Elevated blood pressure Blood Pressure Disposition: further management by hospitalist Discharge Plan Visit Data Chief Complaint: Pain (Generalized) ED Provider: Giulia Schwartz Discharge Problem: Hyperglycemia due to diabetes mellitus, Type 1 diabetes Discharge Problem: Type 1 diabetes Qualifiers: Diabetes mellitus complication status: with kidney complications Diabetes mellitus complication detail: with chronic kidney disease Chronic kidney disease stage: on chronic dialysis Qualified Code(s): E10.22 - Type 1 diabetes mellitus with diabetic chronic kidney disease
[2021-04-28] MEDS ORDERED: SODIUM CHLORIDE 0.9% 1000ML 1,000 ML IV SCH (13:30)
[2021-04-28 13:40] LABS: Beta-Hydroxybutyrate 1.87 mg/dl (0.2-2.81)
--- NOTE | 2021-04-28 14:27 | History & Physical Report ---
Date of Service April 28, 2021 Assessment & Plan (1) COVID: Plan: Likely cause of patient's lactic acidosis/symptomatology Patient is now normotensive, afebrile. Not hypoxic As patient is essentially asymptomatic now, would not treat with steroids as this may adversely affect his diabetes In addition, patient is not a candidate for remdesivir secondary to significant renal dysfunction Continue to monitor, further treatment as below (2) Hyperglycemia due to diabetes mellitus: Plan: Patient was given IV insulin in the emergency room, will recheck blood sugars are pending Will continue outpatient dosing of long-acting insulin, sliding scale will be added Renal/diabetic diet ordered (3) Lactic acidosis: Plan: Unclear etiology, it is possible the patient may have been hypotensive prior to his arrival. Blood pressure is now stable. Patient was started on IV fluids in the emergency room, will hold off on these secondary to fear fluid overload in a patient who appears to be essentially stable Will ask nephrology to evaluate as noted below (4) ESRD (end stage renal disease): Plan: Will consult nephrology as noted patient does not appear to have indication for emergent hemodialysis today Will need care management team to work on arrangements for outpatient dialysis is the patient is now Covid positive (5) Dyslipidemia: Plan: Continue atorvastatin as ordered (6) GERD (gastroesophageal reflux disease): Plan: Continue outpatient pantoprazole (7) Hypertension: Plan: Patient is on Bumex and carvedilol, will continue these. Monitor blood pressure, last documented 134/80 History of Present Illness Chief Complaint: chills Primary Care Provider: Maki Peterson MD This is a 40-year-old male with past one history of type 1 insulin-dependent diabetes mellitus, end-stage renal disease on hemodialysis Saturday that presents today complaining of chills. 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 Patient tells me that he both he and his brother receive regular hemodialysis on Saturday/Saturday/Saturday. He was essentially asymptomatic until approximately 2 days ago when he started with a mild cough. He did not think much of this as he does have postnasal drip on occasion. He woke up today and went to dialysis. He tells me they are only able to remove approximately 2kg and they typically will remove five or more but there was a plumbing issue in the building which forced them to discontinue further treatment. He says while he was waiting for his ride he had sudden onset of very significant chills with rigors. He did have an increased cough. He was not short of breath. He says this is since resolved. However, because of the symptoms he presented to the emergency room for further evaluation. Work-up in the emergency room revealed the patient was hypertensive with a blood pressure in the 180s though this is resolved. He does have an elevated pulse. In addition, he was found to be Covid positive. He does tell me he was vaccinated in August 2020 but has not yet had a booster. The patient does not appear to be in any acute cardiopulmonary distress. His O2 sat is 96% on room air. He was receiving IV hydration for an elevated lactate level. He tells me he is oliguric. He denies other symptoms such as chest pain, abdominal pain, changes in urination, changes in diet. Patient is now being admitted for further work-up and treatment of acute Covid. Allergies Allergy/AdvReac Type Severity Reaction Status Date / Time lisinopril AdvReac Intermediate COUGH Verified 12/07/20 14:56 Home Medications Medication Instructions Recorded Confirmed Type calcium acetate 667 mg tablet 667 mg PO TIDM tab 07/14/19 12/07/20 History (Calphron) David Delica Lancets 33 gauge #400 ea NS 10/16/19 12/07/20 Rx (lancets) blood sugar diagnostic (OneTouch #400 ea 01/29/20 12/07/20 Rx Verio test strips) blood-glucose meter (OneTouch #1 ea 01/29/20 12/07/20 Rx Verio Flex meter) acetone (urine) test (Ketostix) #100 ea 02/18/20 12/07/20 Rx levothyroxine 50 mcg tablet 50 mcg PO PM 03/23/20 12/07/20 History (Synthroid) diphenhydramine HCl 25 mg tablet 25 mg PO DIRECTED 11/02/20 12/07/20 History (Benadryl Allergy) pantoprazole 40 mg tablet,delayed 40 mg PO QAM 11/25/20 12/07/20 History release (Protonix) vitamin B complex and vitamin C 1 cap PO 3XWK 11/25/20 12/07/20 History no.20-folic acid 1 mg capsule (Triphrocaps) aspirin 81 mg tablet,delayed 81 mg PO DAILY #30 tab 11/26/20 12/07/20 Rx release atorvastatin 80 mg tablet (Lipitor) 80 mg PO HS #30 tab 12/08/20 Rx bumetanide 2 mg tablet 2 mg .ROUTE DAILY #90 tab 12/30/20 Rx duloxetine 60 mg capsule,delayed 60 mg PO DAILY #90 cap 01/11/21 Rx release (Cymbalta) Levemir FlexTouch U-100 Insuln 100 50 unit SQ HS 30 Days #15 ml NS 01/25/21 01/25/21 Rx unit/mL (3 mL) subcutaneous pen (insulin detemir U-100) acetaminophen 300 mg-codeine 30 mg 1 tab PO HS PRN #30 tab 01/25/21 01/25/21 Rx tablet carvedilol 12.5 mg tablet (Coreg) 12.5 mg PO BID #180 tab 01/25/21 01/25/21 Rx pen needle, diabetic 29 gauge x #400 ea 01/25/21 Rx 1/2" (Comfort EZ Pen [place]) gabapentin 300 mg capsule 600 mg PO BID #120 cap 02/06/21 Rx (Neurontin) insulin aspart U-100 100 unit/mL 300 unit SUBCUT DAILY 90 Days #270 04/24/21 Rx (3 mL) subcutaneous pen ml Past Med/Surg History Medical History Chronic venous insufficiency Depression Diabetic peripheral neuropathy associated with type 1 diabetes mellitus Diabetic retinopathy Erectile dysfunction ESRD (end stage renal disease) requiring hemodialysis. MWF at [facility]. GERD (gastroesophageal reflux disease) Well controlled and stable H/O febrile seizure as a child (every year until he was 11 years old) no problems since. High cholesterol Hypertension Hypothyroidism Port-A-Cath in place chest area dialysis Thrombosis of arteriovenous dialysis fistula (~02/15/20) Surgical History H/O detached retina repair History of esophagogastroduodenoscopy (EGD) S/P arteriovenous (AV) fistula creation left side, unable to use Family History Mother Diabetes Coronary heart disease Hypertension Father Coronary heart disease Hypertension Brother Coronary heart disease Kidney disease Uncle Colorectal cancer Grandmother Diabetes Aunt Diabetes Unknown Dyslipidemia Other Cancer No family history of adverse response to anesthesia Social History Smoking Status: Never smoker Second Hand Exposure: No; Hx Alcohol Use: No Hx Substance Use: No Preferred Language: Mohawk Communication Ability: Effective Visual Impairment: No Limitations Hearing Ability: Normal Top Cutter Required: No Beliefs That Will Affect Care: None marital status: Single Current Living Situation: Alone Current Living Situation Comment: apartment lives with brother 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" Feels Safe at Home: Yes Dental Care, Regularly: No Physical Activity Frequency: Does not Exercise Seatbelt Use: always Sunscreen Use: No Review of Systems Constitutional: + chills; no fever, no weakness, no weight loss and no weight gain Eyes: as per Subjective / HPI Respiratory: + cough; no chest congestion, no dyspnea, no dyspnea on exertion and no sputum production Cardiovascular: no chest pain, no orthopnea, no palpitations, no lightheadedness and no edema Gastrointestinal: no abdominal pain, no nausea, no vomiting, no constipation and no diarrhea/loose stools Musculoskeletal: no back pain, no neck pain, no joint pain, no stiffness and no myalgia Integumentary: no rash Neurologic: no gait abnormality, no unsteadiness, no falls and no generalized weakness Physical Exam Constitutional: cooperative; no acute distress Neck: trachea midline, no thyromegaly Respiratory: normal respiratory effort Auscultation: lungs clear to auscultation bilaterally; no crackles, no rales, no rhonchi and no wheezes Cardiovascular: Rate/Rhythm: regular rate and regular rhythm Heart Sounds: normal S1 and normal S2 Gastrointestinal (Abdomen): Inspection/Auscultation: abdomen normal to inspection Percussion/Palpation: abdomen soft; abdomen nontender, no guarding, abdomen not rigid and no hepatosplenomegaly Skin: no rashes, warm and dry Results & Data Results & Data ([facility]) Vital Signs (Past 12 Hours) Vital Signs Temp Pulse Pulse Resp BP BP Pulse Ox 04/28/21 13:59 36.9 C 111 H 20 134/80 96 04/28/21 13:00 113 H 18 95 04/28/21 12:30 113 H 17 97 04/28/21 12:00 118 H 14 97 04/28/21 11:30 115 H 19 136/87 99 04/28/21 11:00 38.2 C H 116 H 19 180/84 H 98 Laboratory Results Laboratory Results WBC 3.06 K/uL (4.8-10.8) L 04/28/21 11:46 RBC 4.12 M/uL (4.7-6.1) L 04/28/21 11:46 Hgb 12.7 g/dL (14.0-18.0) L 04/28/21 11:46 Hct 38.5 % (42-52) L 04/28/21 11:46 MCV 93.4 fL (80-100) 04/28/21 11:46 MCH 30.8 pg (25-34) 04/28/21 11:46 MCHC 33.0 g/dL (32-36) 04/28/21 11:46 RDW Std Deviation 47.4 fL (36.4-46.3) H 04/28/21 11:46 RDW Coeff of Yuki 13.9 % (11.5-14.5) 04/28/21 11:46 Plt Count 166 K/uL (130-400) 04/28/21 11:46 MPV 10.7 fL (7.4-10.4) H 04/28/21 11:46 Immature Gran % (Auto) 0.0 % 04/28/21 11:46 Neut % (Auto) 69.9 % 04/28/21 11:46 Lymph % (Auto) 20.6 % 04/28/21 11:46 Mcminn % (Auto) 8.2 % 04/28/21 11:46 Eos % (Auto) 1.0 % 04/28/21 11:46 Baso % (Auto) 0.3 % 04/28/21 11:46 Neut # (Auto) 2.14 K/uL (1.4-6.5) 04/28/21 11:46 Lymph # (Auto) 0.63 K/uL (1.2-3.4) L 04/28/21 11:46 Mcminn # (Auto) 0.25 K/uL (0.11-0.59) 04/28/21 11:46 Eos # (Auto) 0.03 K/uL (0-0.5) 04/28/21 11:46 Baso # (Auto) 0.01 K/uL (0-0.2) 04/28/21 11:46 Immature Gran # (Auto) 0.00 K/uL (0.00-0.02) 04/28/21 11:46 Sodium 134 mmol/L (136-145) L 04/28/21 11:46 Potassium 4.5 mmol/L (3.5-5.1) 04/28/21 11:46 Chloride 99 mmol/L (98-107) 04/28/21 11:46 Carbon Dioxide 26 mmol/L (21-32) 04/28/21 11:46 Anion Gap 9.0 (3-11) 04/28/21 11:46 BUN 41 mg/dl (7-18) H 04/28/21 11:46 Creatinine 6.33 mg/dl (0.6-1.4) H* 04/28/21 11:46 Est Cr Clr Drug Dosing 20.3 ml/min 04/28/21 11:46 Est GFR ( Amer) 11.8 ml/min 04/28/21 11:46 Est GFR (Non-Af Amer) 10.1 ml/min 04/28/21 11:46 BUN/Creatinine Ratio 6.6 (10-20) L 04/28/21 11:46 Glucose 442 mg/dl (70-99) H* 04/28/21 11:46 Lactate 2.4 mmol/L (0.4-2.0) H* 04/28/21 13:51 Calcium 9.5 mg/dl (8.5-10.1) 04/28/21 11:46 Magnesium 2.0 mg/dl (1.8-2.4) 04/28/21 11:46 Total Bilirubin 0.7 mg/dl (0.2-1) 04/28/21 11:46 AST 34 U/L (15-37) 04/28/21 11:46 ALT 54 (12-78) 04/28/21 11:46 Alkaline Phosphatase 184 U/L (45-117) H 04/28/21 11:46 Troponin I < 0.015 ng/ml (0-0.045) 04/28/21 11:46 Total Protein 8.3 gm/dl (6.4-8.2) H 04/28/21 11:46 Albumin 3.6 gm/dl (3.4-5.0) 04/28/21 11:46 Globulin 4.7 gm/dl (2.5-4.0) H 04/28/21 11:46 Albumin/Globulin Ratio 0.8 (0.9-2) L 04/28/21 11:46 Beta-Hydroxybutyric Acd 1.87 mg/dl (0.2-2.81) 04/28/21 11:46 Procalcitonin 1.62 ng/ml (0-0.5) H 04/28/21 11:46 SARS-CoV-2 (PCR) POSITIVE (Negative) A* 04/28/21 12:06 Influenza Type A (PCR) Negative (Neg) 04/28/21 12:06 Influenza Type B (PCR) Negative (Neg) 04/28/21 12:06 RSV (RT-PCR) Negative (Neg) 04/28/21 12:06 Impressions Chest X-Ray 04/28/21 11:18 XR chest 1V portable HISTORY: 40 years-old Male SEPSIS acute sepsis COMPARISON: Chest radiograph 10/19/2020 TECHNIQUE: Portable AP view of the chest FINDINGS: Cardiac silhouette is enlarged. No pneumothorax, pleural effusion, airspace consolidation or overt pulmonary edema. Degenerative changes of the shoulders and spine. Mild right hemidiaphragmatic elevation. IMPRESSION: Cardiomegaly without acute process. ACT 112: Negative or not required by law. The above report was generated using voice recognition software. It may contain grammatical, syntax or spelling errors. Electronically signed by: Alonso Marks M.D. 04/28/2021 11:59 AM PG Care Time/CCT Total # of Minutes Spent Total Time Spent with Patient: Total time spent is greater than 50% in coordination of care (as documented) at patient's floor/unit and/or counseling patient: Coding Level of Care Code 88296 Initial Inpt Care Lvl 3 Diagnoses Hyperglycemia due to diabetes mellitus E11.65 Dyslipidemia E78.5 ESRD (end stage renal disease) N18.6 GERD (gastroesophageal reflux disease) K21.9 Esophagitis presence: esophagitis presence not specified Hypertension I10 Hypertension type: unspecified Lactic acidosis E87.2 COVID U07.1 (1) GERD (gastroesophageal reflux disease) Esophagitis presence: esophagitis presence not specified Qualified Code(s): K21.9 - Gastro-esophageal reflux disease without esophagitis (2) Hypertension Hypertension type: unspecified Qualified Code(s): I10 - Essential (primary) hypertension
--- NOTE | 2021-04-28 16:19 | Electrocardiogram Report ---
Test Reason : Blood Pressure : / mmHG Vent. Rate : 116 BPM Atrial Rate : 116 BPM P-R Int : 146 ms QRS Dur : 088 ms QT Int : 326 ms P-R-T Axes : 052 007 067 degrees QTc Int : 453 ms Sinus tachycardia Otherwise normal ECG When compared with ECG of 25-NOV-2020 05:54, No significant change was found Confirmed by Darshan Garcia ([id number]) on 04/28/2021 4:18:37 PM Referred By: REFERRED SELF Confirmed By:Darshan Garcia
[2021-04-28] MEDS ORDERED: GLUCOSE 10 TABS/TUBE PO PRN (18:12)
[2021-04-28] MEDS ORDERED: CARBOHYDRATES FOR HYPOGLYCEMIA PO PRN (18:12)
[2021-04-28] MEDS ORDERED: ONDANSETRON INJ 2 MG/ML 2 ML VIAL IV PRN (18:12)
[2021-04-28] MEDS ORDERED: ACETAMINOPHEN 325 MG TAB PO PRN (18:12)
[2021-04-28] MEDS ORDERED: GLUCOSE 40% GEL 15 GM TUBE PO PRN (18:12)
[2021-04-28] MEDS ORDERED: DEXTROSE 50% 50 ML SYRINGE IV PRN (18:12)
[2021-04-28] MEDS ORDERED: GLUCAGON FOR INJ 1 MG VIAL SQ PRN (18:12)
[2021-04-28] MEDS: INSULIN ASPART PER UNIT SC SCH ×2 (19:25→22:00)
[2021-04-28] MEDS: CALCIUM ACETATE 667 MG CAP/TAB PO SCH (20:28)
[2021-04-28] MEDS: carvediloL 12.5 MG TAB PO SCH (20:29)
[2021-04-28] MEDS: HEPARIN SOD 5,000 UNIT/0.5 ML VIAL SQ SCH (20:29)
[2021-04-28] MEDS: GABAPENTIN 300 MG CAP PO SCH (20:29)
[2021-04-28] MEDS ORDERED: LEVOTHYROXINE SODIUM 50 MCG TABLET PO SCH (21:00)
[2021-04-28] MEDS ORDERED: ATORVASTATIN 40 MG TAB PO SCH (21:00)
[2021-04-28] MEDS ORDERED: INSULIN DETEMIR FLEXPEN/FLEX TOUCH 100 UNITS/ML 3ML SQ SCH (21:00)
[2021-04-29] MEDS: HEPARIN SOD 5,000 UNIT/0.5 ML VIAL SQ SCH ×2 (05:47→12:55)
[2021-04-29 07:03] LABS: Hematocrit (blood only) 35.4 % (42-52); Hemoglobin 11.5 g/dL (14.0-18.0); Mean Corpuscular Hemoglobin 30.5 pg (25-34); Mean Corpuscular Hgb Conc 32.5 g/dL (32-36); Mean Corpuscular Volume 93.9 fL (80-100); Mean Platelet Volume 10.9 fL (7.4-10.4); Platelet Count 157 K/uL (130-400); RDW Coefficient of Variation 14.3 % (11.5-14.5); RDW Standard Deviation 49.1 fL (36.4-46.3); Red Blood Count 3.77 M/uL (4.7-6.1)
[2021-04-29 07:45] LABS: Basophils # (auto) 0.01 K/uL (0-0.2); Basophils % (auto) 0.4 %; Eosinophils # (auto) 0.02 K/uL (0-0.5); Eosinophils % (auto) 0.8 %; Lymphocytes # (auto) 0.68 K/uL (1.2-3.4); Lymphocytes % (auto) 28.3 %; Monocytes # (auto) 0.81 K/uL (0.11-0.59); Monocytes % (auto) 33.8 %; Neutrophils # (auto) 0.88 K/uL (1.4-6.5); Neutrophils % (auto) 36.7 %; Potassium 4.2 mmol/L (3.5-5.1)
[2021-04-29 07:52] LABS: Estimated Average Glucose 166 mg/dl; Hemoglobin A1C 7.4 % (4.5-5.6)
[2021-04-29 08:04] LABS: Albumin Globulin Ratio 0.9 (0.9-2); Albumin Level 3.5 gm/dl (3.4-5.0); BUN Creatinine Ratio 7.2 (10-20); Bilirubin,Total 0.6 mg/dl (0.2-1); Calcium 9.6 mg/dl (8.5-10.1); Creatinine Clr Calc Pharmacy 16.5 ml/min; Est GFR (African American) 9.4 ml/min; Est GFR (Non-African American) 8.1 ml/min; Total Protein 7.5 gm/dl (6.4-8.2)
[2021-04-29] MEDS: CALCIUM ACETATE 667 MG CAP/TAB PO SCH ×2 (08:09→12:14)
[2021-04-29] MEDS: GABAPENTIN 300 MG CAP PO SCH (08:09)
[2021-04-29] MEDS: carvediloL 12.5 MG TAB PO SCH (08:10)
[2021-04-29] MEDS: INSULIN ASPART PER UNIT SC SCH ×2 (08:26→12:19)
[2021-04-29] MEDS ORDERED: BUMETANIDE 1 MG TAB PO SCH (09:00)
[2021-04-29] MEDS ORDERED: DULoxetine HCL 60 MG CAP PO SCH (09:00)
[2021-04-29] MEDS ORDERED: ASPIRIN 81 MG ECTAB PO SCH (09:00)
[2021-04-29] MEDS ORDERED: PANTOprazole 40 MG TAB PO SCH (09:00)
--- NOTE | 2021-04-29 20:57 | Discharge Summary ---
Date of Service April 29, 2021 Admission HPI Per Admitting Provider This is a 40-year-old male with past one history of type 1 insulin-dependent diabetes mellitus, end-stage renal disease on hemodialysis Saturday that presents today complaining of chills. Patient is a decent historian, is unaccompanied in the room. Patient tells me that he both he and his brother receive regular hemodialysis on Saturday/Saturday/Saturday. He was essentially asymptomatic until approximately 2 days ago when he started with a mild cough. He did not think much of this as he does have postnasal drip on occasion. He woke up today and went to dialysis. He tells me they are only able to remove approximately 2kg and they typically will remove five or more but there was a plumbing issue in the building which forced them to discontinue further treatment. He says while he was waiting for his ride he had sudden onset of very significant chills with rigors. He did have an increased cough. He was not short of breath. He says this is since resolved. However, because of the symptoms he presented to the emergency room for further evaluation. Work-up in the emergency room revealed the patient was hypertensive with a blood pressure in the 180s though this is resolved. He does have an elevated pulse. In addition, he was found to be Covid positive. He does tell me he was vaccinated in August 2020 but has not yet had a booster. The patient does not appear to be in any acute cardiopulmonary distress. His O2 sat is 96% on room air. He was receiving IV hydration for an elevated lactate level. He tells me he is oliguric. He denies other symptoms such as chest pain, abdominal pain, changes in urination, changes in diet. Patient is now being admitted for further work-up and treatment of acute Covid. Principal Diagnosis covid Discharge Exam gen aaox3 pleasant nad heent nc at [facility] lungs cta b/l no rr/w good effort cardio reg neuro no focal deficits. no conversational dyspnea 99% on RA with a lot of talking Discharge Data Allergies Allergy/AdvReac Type Severity Reaction Status Date / Time lisinopril AdvReac Intermediate COUGH Verified 04/28/21 15:03 Consultations 04/28/21 13:32 ED Decision to Admit Stat Hospital Course (1) COVID: fairly mild symptoms - but risk for decompensation seems to have led to admission - unfortunately due to rules beyond my control the ideal treatment for his risk and mild sx would be monoclonal antibodies, which i am unable to dose while inpatient. have tried to arrange this as outpt - forms and order sent to proper places. also noted to pt that ER can dose - should he so choose to return for IV infusion (2) Hyperglycemia due to diabetes mellitus: A1c down to 7.4! Applauded his efforts. (3) Lactic acidosis: Very nonspecific, seems like he was never all that sick, I fear he may have been admitted for a nonspecific lab abnormality more than actual illness. (4) ESRD (end stage renal disease): no need for urgent HD. d/w nephro who talked with his dialysis unitthey will be on to dialyze him Saturday as scheduled, just in an isolation room. No need for nephrology evaluation at this timeconsult canceled, assistance with coordinating with dialysis greatly appreciated. (5) Dyslipidemia: Continue atorvastatin (6) GERD (gastroesophageal reflux disease): Continue outpatient pantoprazole (7) Hypertension: Patient is on Bumex and carvedilol, will continue these. Stable for home, trying to set a monoclonal antibodies through appropriate channels, but patient aware that he could return to the ER to try to get sooner, if the bureaucratic process seems too long/drug out/convoluted Total Time Total Time Spent Total Time Spent (In Minutes): Greater than 30 Discharge Plan Discharge Items Patient Disposition: Home - Self-Care Reason For Visit: COVID Discharge Diagnosis: covid, fortunately mild Activity: Resume your previous activity Non-emergency contact: Primary Care Provider Call non-emergency contact if: you have any medication questions and your symptoms worsen Follow-up/Referrals: Maki Peterson MD [Primary Care Provider] - Diet: Carb Consistent or DM2 and Dialysis Renal Addtl Attending Provider Instructions: Covid -Fortunately your symptoms are very mild, and it definitely appears safe to get you home. -At this point in the course of illness, the main treatment that would be indicated are monoclonal antibodies. Frustratingly due to bureaucratic rules (that appear to be due to the emergency use authorization criteria) we are not able to give you the medicine while you are in the hospital. It basically can only be given in the emergency room, or as an outpatient. I have set things in motion to try to get you scheduled to receive it as an outpatient, and certainly the sooner we are able to administer it the more it appears to improve things. -If you start to feel worse, more short of breath, or anything seems "off" we definitely want you to come back and be reevaluated. End-stage renal disease -The bass guitar teacher covering this weekend spoke with the crew at [facility], and they said you can, at your usual time on Saturday, and they have an isolation room to do dialysis for situations like yours. Diabetes -Your A1c is now down to 7.4%! Keep up the good work, you have really turn things around wellthat is impressive. Pending Studies at Discharge: No Stand-Alone Forms: My [facility], Smoking Cessation Medications and DC Order Prescriptions: Continued (DME) Ketostix Strip See Rx Instructions .ROUTE .MEDSUPPLY Qty: 100 RF: 3 atorvastatin [Lipitor] 80 mg tablet 80 mg PO HS Qty: 30 RF: 5 bumetanide 2 mg tablet 2 mg .ROUTE DAILY Qty: 90 RF: 5 duloxetine [Cymbalta] 60 mg capsule,delayed release(DR/EC) 60 mg PO DAILY Qty: 90 RF: 3 (DME) pen needle, diabetic [Comfort EZ Pen [place]] 29 gauge x 1/2" needle See Rx Instructions .ROUTE .MEDSUPPLY Qty: 400 RF: 3 gabapentin [Neurontin] 300 mg capsule 600 mg PO BID Qty: 120 RF: 11 (DME) OneTouch Verio test strips Strip See Rx Instructions .ROUTE .MEDSUPPLY Qty: 400 RF: 3 (DME) blood-glucose meter [OneTouch Verio Flex meter] Misc See Rx Instructions .ROUTE .MEDSUPPLY Qty: 1 RF: 0 calcium acetate [Calphron] 667 mg tablet 667 mg PO TIDM RF: 0 (DME) lancets [OneTouch Delica Lancets] 33 gauge misc See Rx Instructions .ROUTE .MEDSUPPLY Qty: 400 RF: 3 carvedilol [Coreg] 12.5 mg tablet 12.5 mg PO BID Qty: 180 RF: 3 Levemir FlexTouch U-100 Insuln 100 unit/mL (3 mL) insulin pen 50 unit SQ HS 30 Days Qty: 15 RF: 5 acetaminophen-codeine 300-30 mg tablet 1 tab PO HS PRN (Reason: Pain) Qty: 30 RF: 0 levothyroxine [Synthroid] 50 mcg tablet 50 mcg PO PM RF: 0 insulin aspart U-100 100 unit/mL (3 mL) insulin pen 30 unit subcut DAILY RF: 0 diphenhydramine HCl [Benadryl Allergy] 25 mg Tablet 25 mg PO DIRECTED PRN (Reason: allergies) RF: 0 Triphrocaps 1 mg capsule 1 cap PO 3XWK RF: 0 pantoprazole [Protonix] 40 mg tablet,delayed release (DR/EC) 40 mg PO QAM RF: 0 aspirin 81 mg tablet,delayed release (DR/EC) 81 mg PO DAILY Qty: 30 RF: 0 Discharge Orders: Discharge Order (Routine); Ordered 04/29/21 Ordered By: Talib Kwan/Other Patient Handouts: Managing Type 1 Diabetes Admission Data Admit Date/Time: 04/28/21 14:46 Attending Provider: Talib Glover Admit Provider: Marvin Scanlon Primary Care Provider: Maki Peterson Other Providers: Marvin Scanlon Other Interventions: Discharge Summary Assessment (RN) Last Done: 04/29/21 13:21 Coding Level of Care Code D/C DAY MANAGEMENT >30 MINS Diagnoses COVID U07.1 Hyperglycemia due to diabetes mellitus E11.65 Lactic acidosis E87.2 ESRD (end stage renal disease) N18.6 Dyslipidemia E78.5 GERD (gastroesophageal reflux disease) K21.9 Esophagitis presence: esophagitis presence not specified Hypertension I10 Hypertension type: unspecified
== END 2021-04-29 15:04 | disposition home or self-care (01) | DRG 177 ==
LOC: ED 10:55 → EDINP 14:46 → SUATTDRO 14:46 → 2W 18:11

== ENCOUNTER 2021-10-15 22:52 | Inpatient (IN) ==
--- NOTE | 2021-10-15 23:10 | Emergency Department Note ---
History of Present Illness General Chief complaint: Shortness of Breath/Dyspnea Stated complaint: minor respiratory distress Time Seen by Provider: 10/15/21 23:01 History of Present Illness 41-year-old male presents emergency department with a 2-day history of cough cold congestion symptoms. Patient has a history of diabetes and is end-stage renal disease with dialysis on Saturday and Saturday. Patient states that he received dialysis on Saturday. Patient states that he has had a slight cough. Patient states that his sugar has increased. His brother has a pulse oximetry machine at home and he measured his pulse ox at 95%. Patient denies any pleuritic chest pain denies substernal chest pain denies nausea vomiting. There are no other mitigating or alleviating factors Home Medications Medication Instructions Recorded Confirmed Type calcium acetate 667 mg tablet 667 mg PO TIDM tab 07/14/19 10/15/21 History (Calphron) OneTouch Delica Lancets 33 gauge #400 ea NS 10/16/19 10/15/21 Rx (lancets) blood sugar diagnostic (OneTouch #400 ea 01/29/20 10/02/21 Rx Verio test strips) blood-glucose meter (OneTouch #1 ea 01/29/20 10/15/21 Rx Verio Flex meter) acetone (urine) test (Ketostix) #100 ea 02/18/20 10/02/21 Rx levothyroxine 50 mcg tablet 50 mcg PO PM 03/23/20 10/15/21 History (Synthroid) diphenhydramine HCl 25 mg tablet 25 mg PO DIRECTED PRN 11/02/20 10/15/21 History (Benadryl Allergy) vitamin B complex and vitamin C 1 cap PO 3XWK 11/25/20 10/15/21 History no.20-folic acid 1 mg capsule (Triphrocaps) aspirin 81 mg tablet,delayed 81 mg PO DAILY #30 tab 11/26/20 10/15/21 Rx release bumetanide 2 mg tablet 2 mg .ROUTE DAILY #90 tab 12/30/20 10/15/21 Rx duloxetine 60 mg capsule,delayed 60 mg PO DAILY #90 cap 01/11/21 10/15/21 Rx release (Cymbalta) Levemir FlexTouch U-100 Insuln 100 50 unit SQ HS 30 Days #15 ml NS 01/25/21 10/15/21 Rx unit/mL (3 mL) subcutaneous pen (insulin detemir U-100) carvedilol 12.5 mg tablet (Coreg) 12.5 mg PO BID #180 tab 01/25/21 10/15/21 Rx pen needle, diabetic 29 gauge x #400 ea 01/25/21 10/15/21 Rx 1/2" (Comfort EZ Pen [place]) acetaminophen 300 mg-codeine 30 mg 1 tab PO BID PRN #30 tab 05/23/21 10/15/21 Rx tablet gabapentin 300 mg capsule 600 mg PO BID #360 cap 05/23/21 10/15/21 Rx (Neurontin) atorvastatin 80 mg tablet (Lipitor) 80 mg PO HS #30 tab 06/23/21 10/15/21 Rx pantoprazole 40 mg tablet,delayed 40 mg PO QAM #90 tab 06/28/21 10/15/21 Rx release (Protonix) insulin aspart U-100 100 unit/mL 60 unit SUBCUT TID #165 ml 08/18/21 10/15/21 Rx (3 mL) subcutaneous pen Allergies Allergy/AdvReac Type Severity Reaction Status Date / Time lisinopril AdvReac Intermediate COUGH Verified 10/15/21 23:49 Past Med/Surg History Medical History Chronic venous insufficiency Depression Diabetic peripheral neuropathy associated with type 1 diabetes mellitus Diabetic retinopathy Erectile dysfunction ESRD (end stage renal disease) requiring hemodialysis. MWF at [facility]. GERD (gastroesophageal reflux disease) Well controlled and stable H/O febrile seizure as a child (every year until he was 11 years old) no problems since. High cholesterol Hypertension Hypothyroidism Port-A-Cath in place chest area dialysis Thrombosis of arteriovenous dialysis fistula (~02/15/20) Surgical History H/O detached retina repair History of esophagogastroduodenoscopy (EGD) S/P arteriovenous (AV) fistula creation left side, unable to use Family History Mother Diabetes Coronary heart disease Hypertension Father Coronary heart disease Hypertension Brother Coronary heart disease Kidney disease Uncle Colorectal cancer Grandmother Diabetes Aunt Diabetes Unknown Dyslipidemia Other Cancer No family history of adverse response to anesthesia Social History Smoking Status: Never smoker Second Hand Exposure: No; Hx Alcohol Use: No Hx Substance Use: No Preferred Language: Irish Communication Ability: Effective Visual Impairment: No Limitations Hearing Ability: Normal Home School Teacher Required: No Beliefs That Will Affect Care: None marital status: Single Current Living Situation: Family Current Living Situation Comment: apartment lives with brother 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" How many Children do You have: 0 Feels Safe at Home: Yes Dental Care, Regularly: No Physical Activity Frequency: Does not Exercise Seatbelt Use: always Sunscreen Use: No Assistive Devices: Cane Review of Systems A total of 10 systems reviewed and were otherwise negative Constitutional: no fever Respiratory: + cough and + chest congestion Cardiovascular: no chest pain Gastrointestinal: no abdominal pain Physical Exam Vital Signs Vital Signs - 24 hr 10/15/21 22:42 10/15/21 23:01 10/15/21 23:04 Temperature 37.1 C Temperature Source Oral Pulse Rate 95 H 98 H 95 H Pulse Rate [Apical] Pulse Rate from SpO2 Sensor 98 H 95 H Pulse Rhythm [Apical] Respiratory Rate 20 22 14 Respiratory Effort / Characteristics Non-Labored Respiratory Depth Normal Blood Pressure 198/100 H 174/104 H Blood Pressure [Right Arm] Blood Pressure Mean 132 127 Blood Pressure Mean [Right Arm] Blood Pressure Position Sitting Pulse Oximetry 98 98 98 Oxygen Delivery Method Room Air Sepsis Recent Fever Within 48 Hours No Sepsis New/Unexplained Change in Mental Status No Sepsis Action Taken by Nursing No Action Required 10/15/21 23:06 10/15/21 23:10 10/15/21 23:16 Temperature Temperature Source Pulse Rate 94 H 95 H Pulse Rate [Apical] 95 H Pulse Rate from SpO2 Sensor 95 H Pulse Rhythm [Apical] Respiratory Rate 20 17 Respiratory Effort / Characteristics Non-Labored Respiratory Depth Blood Pressure Blood Pressure [Right Arm] 174/104 H Blood Pressure Mean Blood Pressure Mean [Right Arm] 127 Blood Pressure Position Pulse Oximetry 98 99 Oxygen Delivery Method Room Air Room Air Sepsis Recent Fever Within 48 Hours Sepsis New/Unexplained Change in Mental Status Sepsis Action Taken by Nursing 10/15/21 23:20 10/15/21 23:21 10/15/21 23:30 Temperature Temperature Source Pulse Rate 96 H 93 H Pulse Rate [Apical] 93 H Pulse Rate from SpO2 Sensor 96 H 93 H Pulse Rhythm [Apical] Regular Respiratory Rate 20 21 13 Respiratory Effort / Characteristics Respiratory Depth Blood Pressure 176/95 H Blood Pressure [Right Arm] 174/104 H Blood Pressure Mean 122 Blood Pressure Mean [Right Arm] 127 Blood Pressure Position Pulse Oximetry 98 97 98 Oxygen Delivery Method Room Air Sepsis Recent Fever Within 48 Hours Sepsis New/Unexplained Change in Mental Status Sepsis Action Taken by Nursing 10/15/21 23:36 10/15/21 23:40 10/15/21 23:50 Temperature Temperature Source Pulse Rate 93 H 91 H Pulse Rate [Apical] Pulse Rate from SpO2 Sensor 94 H 92 H Pulse Rhythm [Apical] Respiratory Rate 26 H 31 H Respiratory Effort / Characteristics Non-Labored Respiratory Depth Blood Pressure Blood Pressure [Right Arm] Blood Pressure Mean Blood Pressure Mean [Right Arm] Blood Pressure Position Pulse Oximetry 97 97 Oxygen Delivery Method Room Air Sepsis Recent Fever Within 48 Hours Sepsis New/Unexplained Change in Mental Status Sepsis Action Taken by Nursing 10/15/21 23:51 10/16/21 00:00 10/16/21 00:06 Temperature Temperature Source Pulse Rate 92 H Pulse Rate [Apical] Pulse Rate from SpO2 Sensor 92 H Pulse Rhythm [Apical] Respiratory Rate 14 Respiratory Effort / Characteristics Non-Labored Respiratory Depth Normal Blood Pressure 173/90 H Blood Pressure [Right Arm] Blood Pressure Mean 117 Blood Pressure Mean [Right Arm] Blood Pressure Position Pulse Oximetry 96 Oxygen Delivery Method Room Air Sepsis Recent Fever Within 48 Hours Sepsis New/Unexplained Change in Mental Status Sepsis Action Taken by Nursing 10/16/21 00:10 10/16/21 00:21 10/16/21 00:30 Temperature Temperature Source Pulse Rate 92 H Pulse Rate [Apical] 89 Pulse Rate from SpO2 Sensor 92 H Pulse Rhythm [Apical] Respiratory Rate 20 Respiratory Effort / Characteristics Non-Labored Respiratory Depth Blood Pressure Blood Pressure [Right Arm] 148/90 H Blood Pressure Mean Blood Pressure Mean [Right Arm] 109 Blood Pressure Position Pulse Oximetry 97 97 Oxygen Delivery Method Room Air Room Air Sepsis Recent Fever Within 48 Hours Sepsis New/Unexplained Change in Mental Status Sepsis Action Taken by Nursing VITAL SIGNS - Vital signs and nursing notes were reviewed. GENERAL - No acute distress. Communicates well with provider and answers questions appropriately. SKIN - Without rashes. HEAD - NC/AT. EYES - PERRL with EOMI bilaterally. Sclera anicteric. Palpebral conjunctiva pink and moist with no injection noted. EARS - No deformities of external structures noted on gross examination bilaterally. NOSE - Midline and without cyanosis. No epistaxis or purulent drainage noted. Septum midline without deviation or septal hematoma noted. MOUTH/OROPHARYNX - Without perioral cyanosis. NECK - Neck with FROM. LUNGS - Chest wall symmetric without accessory muscle use, intercostals retractions, or central cyanosis. Normal vesicular breath sounds CTA B/L. No wheezes, rales, or rhonchi appreciated. CARDIAC - RRR with S1/S2. No murmur, rubs, or gallops appreciated. ABDOMEN - Abdominal contour soft without pulsations or visible masses. BS normoactive all four quadrants. No tenderness, palpable masses, hepatosplenomegaly, or ascites noted. EXTREMITIES - No clubbing or peripheral cyanosis. +5/5 strength noted in UE/LE bilaterally. NEUROLOGIC - Cranial nerves II through XII grossly intact. PSYCH - A&Ox3 and cooperates fully with examiner. Pt is very pleasant and interacts well with examiner. Course Administered Medications Sodium Chloride (Nss 1000ml) 1,000 mls @ 999 mls/hr IV .Q1H1M ONE Stop: 10/16/21 01:18 Last Admin: 10/16/21 00:33 Dose: 999 mls/hr Documented by: [id number] Discontinued Medications Ceftriaxone Sodium (Rocephin) 2,000 mg in 70 mls @ 140 mls/hr IV NOW STA Stop: 10/16/21 00:47 Last Infusion: 10/16/21 01:05 Dose: 0 mls/hr Documented by: [id number] Admin: 10/16/21 00:37 Dose: 140 mls/hr Documented by: [id number] Insulin Human Regular (Insulin Human Regular) 20 units SC NOW STA Stop: 10/16/21 00:19 Last Admin: 10/16/21 00:43 Dose: 20 units Documented by: [id number] Cosigned by: [id number] Insulin Human Regular (Novolin-R Insulin Per Unit Charge) Confirm Administered Dose 1 units .ROUTE .STK-MED ONE Stop: 10/16/21 00:26 Last Admin: 10/16/21 00:37 Dose: Not Given Documented by: [id number] Critical Care Time Critical Care Time: Yes Total Critical Care Time: 35 I have personally spent greater than 35 minutes of critical care time in the direct management of this patient. This includes bedside care, interpretation of diagnostic studies, and testing, discussion with consultants, patient, and family members, and other required patient management activities. These minutes are in excess of all separately billable procedures. Medical Decision Making Medical Records Attestation: I reviewed the patient's medical records. Home Medications Current Medication List: was personally reviewed by me Laboratory Data Attestation: I reviewed the patient's lab results. Result diagrams: 10/15/21 23:17 10/15/21 23:17 Lab Results 10/15/21 10/15/21 10/15/21 Range/Units 23:17 23:17 23:17 WBC 5.95 (4.8-10.8) K/uL RBC 3.09 L (4.7-6.1) M/uL Hgb 9.6 L (14.0-18.0) g/dL Hct 27.9 L (42-52) % MCV 90.3 (80-100) fL MCH 31.1 (25-34) pg MCHC 34.4 (32-36) g/dL RDW Std Deviation 43.1 (36.4-46.3) fL RDW Coeff of Yuki 13.3 (11.5-14.5) % Plt Count 155 (130-400) K/uL MPV 10.6 H (7.4-10.4) fL Immature Gran % (Auto) 0.3 % Neut % (Auto) 81.0 % Lymph % (Auto) 13.8 % [place] % (Auto) 2.9 % Eos % (Auto) 2.0 % Baso % (Auto) 0.0 % Neut # (Auto) 4.82 (1.4-6.5) K/uL Lymph # (Auto) 0.82 L (1.2-3.4) K/uL [place] # (Auto) 0.17 (0.11-0.59) K/uL Eos # (Auto) 0.12 (0-0.5) K/uL Baso # (Auto) 0.00 (0-0.2) K/uL Immature Gran # (Auto) 0.02 (0.00-0.02) K/uL PT 10.2 (9.0-12.0) Seconds INR 1.0 (0.9-1.1) APTT 26.5 (21.0-31.0) Seconds PTT Ratio 1.0 Sodium 124 L (136-145) mmol/L Potassium 4.6 (3.5-5.1) mmol/L Chloride 87 L (98-107) mmol/L Carbon Dioxide 27 (21-32) mmol/L Anion Gap 10 (3-11) BUN 41 H (6-23) mg/dl Creatinine 6.81 H* (0.6-1.4) mg/dl Est Cr Clr Drug Dosing Not Reportable Est GFR ( Amer) 10.7 ml/min Est GFR (Non-Af Amer) 9.2 ml/min BUN/Creatinine Ratio 6.0 L (10-20) Glucose 951 H* (70-99(Fasting)) mg/dl Lactate (0.4-2.0) mmol/L Calcium 8.3 L (8.5-10.1) mg/dl Magnesium 1.7 (1.7-2.4) mg/dl Total Bilirubin 0.9 (0.2-1.0) mg/dl AST 12 L (13-39) U/L ALT 11 (7-52) U/L Alkaline Phosphatase 270 H (34-104) U/L Total Protein 6.8 (6.0-8.3) gm/dl Albumin 3.5 (3.4-5.0) gm/dl Globulin 3.3 (2.5-4.0) gm/dl Albumin/Globulin Ratio 1.1 (0.9-2) SARS-CoV-2, RNA, NAAT (NEGATIVE) 10/15/21 10/15/21 Range/Units 23:17 23:17 WBC (4.8-10.8) K/uL RBC (4.7-6.1) M/uL Hgb (14.0-18.0) g/dL Hct (42-52) % MCV (80-100) fL MCH (25-34) pg MCHC (32-36) g/dL RDW Std Deviation (36.4-46.3) fL RDW Coeff of Yuki (11.5-14.5) % Plt Count (130-400) K/uL MPV (7.4-10.4) fL Immature Gran % (Auto) % Neut % (Auto) % Lymph % (Auto) % [place] % (Auto) % Eos % (Auto) % Baso % (Auto) % Neut # (Auto) (1.4-6.5) K/uL Lymph # (Auto) (1.2-3.4) K/uL [place] # (Auto) (0.11-0.59) K/uL Eos # (Auto) (0-0.5) K/uL Baso # (Auto) (0-0.2) K/uL Immature Gran # (Auto) (0.00-0.02) K/uL PT (9.0-12.0) Seconds INR (0.9-1.1) APTT (21.0-31.0) Seconds PTT Ratio Sodium (136-145) mmol/L Potassium (3.5-5.1) mmol/L Chloride (98-107) mmol/L Carbon Dioxide (21-32) mmol/L Anion Gap (3-11) BUN (6-23) mg/dl Creatinine (0.6-1.4) mg/dl Est Cr Clr Drug Dosing Est GFR ( Amer) ml/min Est GFR (Non-Af Amer) ml/min BUN/Creatinine Ratio (10-20) Glucose (70-99(Fasting)) mg/dl Lactate 3.1 H* (0.4-2.0) mmol/L Calcium (8.5-10.1) mg/dl Magnesium (1.7-2.4) mg/dl Total Bilirubin (0.2-1.0) mg/dl AST (13-39) U/L ALT (7-52) U/L Alkaline Phosphatase (34-104) U/L Total Protein (6.0-8.3) gm/dl Albumin (3.4-5.0) gm/dl Globulin (2.5-4.0) gm/dl Albumin/Globulin Ratio (0.9-2) SARS-CoV-2, RNA, NAAT NEGATIVE (NEGATIVE) Imaging Data Attestation: I personally reviewed and interpreted this imaging study as follows : My Impression: Chest x-ray interpreted by me poor inspiratory effort, cardiomegaly, no obvious significant infiltrate or effusion MDM Narrative Medical Decision making differential diagnosis pneumonia, bronchitis, upper respiratory tract infection, hyperglycemia; will check labs, cxr Impression & Plan Hyperglycemia due to diabetes mellitus, SIRS (systemic inflammatory response syndrome), Acute dyspnea, Lactic acidosis Discharge Plan Visit Data Chief Complaint: Shortness of Breath/Dyspnea Stated Complaint: minor respiratory distress ED Provider: Zhang Payne Discharge Problem: Hyperglycemia due to diabetes mellitus, SIRS (systemic inflammatory response syndrome), Acute dyspnea, Lactic acidosis Patient Disposition: Being Evaluated by Hospitalist Forms Stand Alone Forms: My [facility] [address] Prescriptions Prescriptions: No Action (DME) Ketostix Strip See Rx Instructions .ROUTE .MEDSUPPLY Qty: 100 RF: 3 bumetanide 2 mg tablet 2 mg .ROUTE DAILY Qty: 90 RF: 5 duloxetine [Cymbalta] 60 mg capsule,delayed release(DR/EC) 60 mg PO DAILY Qty: 90 RF: 3 (DME) pen needle, diabetic [Comfort EZ Pen [place]] 29 gauge x 1/2" needle See Rx Instructions .ROUTE .MEDSUPPLY Qty: 400 RF: 3 atorvastatin [Lipitor] 80 mg tablet 80 mg PO HS Qty: 30 RF: 5 pantoprazole [Protonix] 40 mg tablet,delayed release (DR/EC) 40 mg PO QAM Qty: 90 RF: 3 insulin aspart U-100 100 unit/mL (3 mL) insulin pen 60 unit subcut TID Qty: 165 RF: 0 (DME) OneTouch Verio test strips Strip See Rx Instructions .ROUTE .MEDSUPPLY Qty: 400 RF: 3 (DME) blood-glucose meter [OneTouch Verio Flex meter] Misc See Rx Instructions .ROUTE .MEDSUPPLY Qty: 1 RF: 0 gabapentin [Neurontin] 300 mg capsule 600 mg PO BID Qty: 360 RF: 3 acetaminophen-codeine 300-30 mg tablet 1 tab PO BID PRN (Reason: Pain) Qty: 30 RF: 0 calcium acetate [Calphron] 667 mg tablet 667 mg PO TIDM RF: 0 (DME) lancets [OneTouch Delica Lancets] 33 gauge misc See Rx Instructions .ROUTE .MEDSUPPLY Qty: 400 RF: 3 carvedilol [Coreg] 12.5 mg tablet 12.5 mg PO BID Qty: 180 RF: 3 Levemir FlexTouch U-100 Insuln 100 unit/mL (3 mL) insulin pen 50 unit SQ HS 30 Days Qty: 15 RF: 5 levothyroxine [Synthroid] 50 mcg tablet 50 mcg PO PM RF: 0 diphenhydramine HCl [Benadryl Allergy] 25 mg Tablet 25 mg PO DIRECTED PRN (Reason: allergies) RF: 0 Triphrocaps 1 mg capsule 1 cap PO 3XWK RF: 0 aspirin 81 mg tablet,delayed release (DR/EC) 81 mg PO DAILY Qty: 30 RF: 0 Referrals Referrals: Maki Peterson MD [Primary Care Provider] -
[2021-10-15 23:30] LABS: Eosinophils # (auto) 0.12 K/uL (0-0.5); Hematocrit (blood only) 27.9 % (42-52); Hemoglobin 9.6 g/dL (14.0-18.0); Immature Granulocytes # (auto) 0.02 K/uL (0.00-0.02); Immature Granulocytes % (auto) 0.3 %; Lymphocytes # (auto) 0.82 K/uL (1.2-3.4); Lymphocytes % (auto) 13.8 %; Mean Corpuscular Hemoglobin 31.1 pg (25-34); Mean Corpuscular Hgb Conc 34.4 g/dL (32-36); Mean Corpuscular Volume 90.3 fL (80-100); Mean Platelet Volume 10.6 fL (7.4-10.4); Monocytes # (auto) 0.17 K/uL (0.11-0.59); Monocytes % (auto) 2.9 %; Neutrophils # (auto) 4.82 K/uL (1.4-6.5); Platelet Count 155 K/uL (130-400); RDW Coefficient of Variation 13.3 % (11.5-14.5); RDW Standard Deviation 43.1 fL (36.4-46.3); Red Blood Count 3.09 M/uL (4.7-6.1); White Blood Count 5.95 K/uL (4.8-10.8)
[2021-10-15 23:50] LABS: Partial Thromboplastin Time 26.5 Seconds (21.0-31.0); Prothrombin Time 10.2 Seconds (9.0-12.0)
[2021-10-16 00:14] LABS: Alanine Aminotransferase 11 U/L (7-52); Albumin Globulin Ratio 1.1 (0.9-2); Albumin Level 3.5 gm/dl (3.4-5.0); Alkaline Phosphatase 270 U/L (34-104); Anion Gap 10 (3-11); Aspartate Aminotransferase 12 U/L (13-39); Bilirubin,Total 0.9 mg/dl (0.2-1.0); Blood Urea Nitrogen 41 mg/dl (6-23); Calcium 8.3 mg/dl (8.5-10.1); Carbon Dioxide 27 mmol/L (21-32); Chloride 87 mmol/L (98-107); Est GFR (African American) 10.7 ml/min; Est GFR (Non-African American) 9.2 ml/min; Globulin 3.3 gm/dl (2.5-4.0); Glucose 951 mg/dl (70-99(Fasting)); Magnesium 1.7 mg/dl (1.7-2.4); Potassium 4.6 mmol/L (3.5-5.1); Sodium 124 mmol/L (136-145); Total Protein 6.8 gm/dl (6.0-8.3)
[2021-10-16] MEDS ORDERED: INSULIN HUMAN REGULAR SC STA (00:18)
[2021-10-16] MEDS ORDERED: SODIUM CHLORIDE 0.9% 1000ML 1,000 ML IV ONE (00:18)
[2021-10-16] MEDS ORDERED: cefTRIAXone SODIUM 2,000 MG/70 ML BAG IV STA (00:18)
[2021-10-16] MEDS ORDERED: NovoLIN-R INSULIN PER UNIT CHARGE ONE (00:25)
--- NOTE | 2021-10-16 01:29 | History & Physical Report ---
Date of Service October 16, 2021 Assessment & Plan (1) Hyperosmolar hyperglycemic state (HHS): Plan: 41yo male with a history of T1DM, HHS, ESRD (dialysis qMWF), HTN, HLD, hypothyroidism, pneumonia, GERD, chronic venous insufficiency, MDD, and covid (04/2021) presents with a 2-3 day history of SOB, cough, and shaking. HHS, uncontrolled T1DM, lactic acidosis Glucose on admission 951, lactate 3.1, anion gap not elevated Plasma osmolality, urine ketones pending Received regular insulin 20u sc in ED, repeat glucose 437 (three hours after initial BSG) Continue NSS @ 100mL/hr + KCl 20mEq (one bag ordered, caution with fluids given patient's ESRD) Continue patient's home levemir (50u qHS) Continue ISS (started once pt's BSG fell below 500) BMP q4h x3 ordered, repeat lactic acid in AM Cough, SOB Oxygen saturation adequate on admission without need for supplemental oxygen CXR with BL hazy opacities, obesity hypoventilation vs infectious; covid negative Likely due to viral URI +/- obesity hypoventilation syndrome Added mucinex, consider hycodan if cough inadequately improved with mucinex Flutter valve qid Pseudohyponatremia Sodium on admission 124; after correction for hyperglycemia, sodium 138-144 No intervention indicated; continue BMP checks as above ESRD Creatinine on admission 6.81 (slightly improved from 04/2021) Last dialysis three days ago (10/13/21) Consult nephrology for possible dialysis, as patient was supposed to receive dialysis later today (qMWF) Patient typically takes bumetanide 2mg after dialysis (qMWF) Transaminitis AlkP 270 on admission; AST, ALT, Tbili wnl Anemia Hgb on admission 9.6 (prior values largely in the 8.0-11.0 range), fell to 8.9 after receiving fluids Anemia likely secondary to ESRD; no signs/symptoms of active bleeding Pt has history of acute blood loss anemia; will obtain type/screen just in case Trend daily CBC HTN BP since arrival 140-190s/80-100s; additional dose of pt's home coreg given Continue coreg 12.5mg bid HLD: continue home atorvastatin, aspirin Diabetic nephropathy: continue home gabapentin, duloxetine GERD: continue home pantoprazole Hypothyroidism: continue home levothyroxine MDD: continue home duloxetine FEN: DM2 diet, NSS @ 100mL + KCl 20mEq (x1 bag) Code status: full code DVT ppx: SCDs Consults: nephrology PT/OT: ordered Case management: consulted for possible BSG sensor (pt expresses interest in freestyle liz) Dispo: med/surg (2) Uncontrolled type 1 diabetes mellitus with kidney complication, with long- term current use of insulin: (3) Lactic acidosis: (4) Hypertension: (5) Dyslipidemia: (6) ESRD (end stage renal disease): (7) Acute dyspnea: (8) GERD (gastroesophageal reflux disease): (9) Depression: (10) Chronic venous insufficiency: History of Present Illness Primary Care Provider: Maki Peterson MD 41yo male with a history of T1DM, HHS, ESRD (dialysis qMWF), HTN, HLD, hypothyroidism, pneumonia, GERD, chronic venous insufficiency, MDD, and covid (04/2021) presents with a 2-3 day history of SOB, cough, and shaking. Symptoms began after patient received dialysis last Saturday (10/13). Patient also notes a runny nose, and a few episodes of vomiting which he says were brought on by severe coughing (denies associated nausea). Symptoms began gradually. Patient came to the ED primarily due to difficulty controlling his cough. Denies fever, headache, changes in vision, CP, abdominal pain, diarrhea, dizziness, sick contacts, or other symptoms. Patient notes he "never" misses a dose of his short-acting insulin, although he admits he does not check his BSG at home, and doses his short-acting insulin "based on how I feel". Patient notes he only remembers to take his nighttime long-acting insulin 2-4 times per week, and does not remember the last time he took it. Allergies Allergy/AdvReac Type Severity Reaction Status Date / Time lisinopril AdvReac Intermediate COUGH Verified 10/15/21 23:49 Home Medications Medication Instructions Recorded Confirmed Type calcium acetate 667 mg tablet 667 mg PO TIDM tab 07/14/19 10/15/21 History (Calphron) OneTouch Delica Lancets 33 gauge #400 ea NS 10/16/19 10/15/21 Rx (lancets) blood sugar diagnostic (OneTouch #400 ea 01/29/20 10/02/21 Rx Verio test strips) blood-glucose meter (OneTouch #1 ea 01/29/20 10/15/21 Rx Verio Flex meter) acetone (urine) test (Ketostix) #100 ea 02/18/20 10/02/21 Rx levothyroxine 50 mcg tablet 50 mcg PO PM 03/23/20 10/15/21 History (Synthroid) diphenhydramine HCl 25 mg tablet 25 mg PO DIRECTED PRN 11/02/20 10/15/21 History (Benadryl Allergy) vitamin B complex and vitamin C 1 cap PO 3XWK 11/25/20 10/15/21 History no.20-folic acid 1 mg capsule (Triphrocaps) aspirin 81 mg tablet,delayed 81 mg PO DAILY #30 tab 11/26/20 10/15/21 Rx release bumetanide 2 mg tablet 2 mg .ROUTE DAILY #90 tab 12/30/20 10/15/21 Rx duloxetine 60 mg capsule,delayed 60 mg PO DAILY #90 cap 01/11/21 10/15/21 Rx release (Cymbalta) Levemir FlexTouch U-100 Insuln 100 50 unit SQ HS 30 Days #15 ml NS 01/25/21 10/15/21 Rx unit/mL (3 mL) subcutaneous pen (insulin detemir U-100) carvedilol 12.5 mg tablet (Coreg) 12.5 mg PO BID #180 tab 01/25/21 10/15/21 Rx pen needle, diabetic 29 gauge x #400 ea 01/25/21 10/15/21 Rx 1/2" (Comfort EZ Pen [place]) acetaminophen 300 mg-codeine 30 mg 1 tab PO BID PRN #30 tab 05/23/21 10/15/21 Rx tablet gabapentin 300 mg capsule 600 mg PO BID #360 cap 05/23/21 10/15/21 Rx (Neurontin) atorvastatin 80 mg tablet (Lipitor) 80 mg PO HS #30 tab 06/23/21 10/15/21 Rx pantoprazole 40 mg tablet,delayed 40 mg PO QAM #90 tab 06/28/21 10/15/21 Rx release (Protonix) insulin aspart U-100 100 unit/mL 60 unit SUBCUT TID #165 ml 08/18/21 10/15/21 Rx (3 mL) subcutaneous pen Past Med/Surg History Medical History Chronic venous insufficiency Depression Diabetic peripheral neuropathy associated with type 1 diabetes mellitus Diabetic retinopathy Erectile dysfunction ESRD (end stage renal disease) requiring hemodialysis. MWF at [facility]. GERD (gastroesophageal reflux disease) Well controlled and stable H/O febrile seizure as a child (every year until he was 11 years old) no problems since. High cholesterol Hypertension Hypothyroidism Port-A-Cath in place chest area dialysis Thrombosis of arteriovenous dialysis fistula (~02/15/20) Surgical History H/O detached retina repair History of esophagogastroduodenoscopy (EGD) S/P arteriovenous (AV) fistula creation left side, unable to use Family History Mother Diabetes Coronary heart disease Hypertension Father Coronary heart disease Hypertension Brother Coronary heart disease Kidney disease Uncle Colorectal cancer Grandmother Diabetes Aunt Diabetes Unknown Dyslipidemia Other Cancer No family history of adverse response to anesthesia Social History Smoking Status: Never smoker Second Hand Exposure: No; Hx Alcohol Use: Yes Alcohol type: beer Hx Substance Use: No Preferred Language: Ukrainian Communication Ability: Effective Visual Impairment: No Limitations Hearing Ability: Normal Head Of Music Required: No Beliefs That Will Affect Care: None marital status: Single Current Living Situation: Family Current Living Situation Comment: Brother 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" How many Children do You have: 0 Other Information That Helps Us Care for You: No Feels Safe at Home: Yes Safety Concerns: Feels Safe At This Time Dental Care, Regularly: No Physical Activity Frequency: Does not Exercise Seatbelt Use: always Sunscreen Use: No Assistive Devices: Cane and Walker Physical Exam Physical Exam: Constitutional: disheveled, tired-appearing, NAD HEENT: MMM CV: regular rhythm, no murmur appreciated, extremities well-perfused, 2+ pitting edema up to the knee Resp: breath sounds diminished L>R, no wheezes/rales/rhonchi appreciated, no increased work of breathing GI: soft, nondistended, nontender, BS normoactive MSK: no gross deformities appreciated Neuro: alert, oriented, no focal neurologic deficit appreciated Results & Data Results & Data ([facility]) Vital Signs (Past 12 Hours) Vital Signs Temp Pulse Pulse Resp BP BP Pulse Ox 10/16/21 01:00 87 18 153/93 H 97 10/16/21 00:45 88 14 97 10/16/21 00:30 90 89 14 148/90 H 148/90 H 97 10/16/21 00:15 90 95 10/16/21 00:10 92 H 97 10/16/21 00:00 92 H 14 173/90 H 96 10/15/21 23:50 91 H 31 H 97 10/15/21 23:40 93 H 26 H 97 10/15/21 23:30 93 H 13 176/95 H 98 10/15/21 23:21 93 H 21 174/104 H 97 10/15/21 23:20 96 H 20 98 10/15/21 23:10 95 H 17 99 10/15/21 23:06 94 H 95 H 20 174/104 H 98 10/15/21 23:04 95 H 14 174/104 H 98 10/15/21 23:01 98 H 22 98 10/15/21 22:42 37.1 C 95 H 20 198/100 H 98 Supervising Physician Co-Signing Physician Notes Attending addendum: I have physically seen this patient, have supervised the medical residents activities, and agree with the H&P unless as otherwise noted. Assessment and Plan: Hyperosmolar hyperglycemic state/HHS/uncontrolled diabetes mellitus type 1- Glucose initially 951 on admission, improved to 437 after having received 20 units of regular insulin subcu from the ED and 1 L IV fluids Continue NSS + KCl 20 mill equivalents at 100 mils per hour BMP every 4 hours x3 At this point will resume patient's usual Levemir dosing 50 units subcu at bedtime, and placed on insulin sliding scale Check hemoglobin A1c Patient needs significant diabetic education, as he admits to taking his long- acting insulin on average 3-4 times per week, and does not check his blood sugars ESRD on HD- Last dialysis on 10/13/2021 Consult nephrology Remaining orders and notations as noted Resident Activity Tracking Resident Involvement: Resident Care Provided and Boardmarker Coverage Note Care Provided: Adult Hospital Medicine (1) Depression Active/Remission status: remission status unspecified Depression Type: major depressive disorder Major depression recurrence: recurrent Qualified Code(s): F33.9 - Major depressive disorder, recurrent, unspecified (2) GERD (gastroesophageal reflux disease) Esophagitis presence: esophagitis presence not specified Qualified Code(s): K21.9 - Gastro-esophageal reflux disease without esophagitis (3) Hypertension Hypertension type: unspecified Qualified Code(s): I10 - Essential (primary) hypertension
[2021-10-16] MEDS ORDERED: GLUCAGON FOR INJ 1 MG VIAL SQ PRN (02:55)
[2021-10-16] MEDS ORDERED: CARBOHYDRATES FOR HYPOGLYCEMIA PO PRN (02:55)
[2021-10-16] MEDS ORDERED: GLUCOSE 10 TABS/TUBE PO PRN (02:55)
[2021-10-16] MEDS ORDERED: DEXTROSE 50% 50 ML SYRINGE IV PRN (02:55)
[2021-10-16] MEDS ORDERED: GLUCOSE 40% GEL 15 GM TUBE PO PRN (02:55)
[2021-10-16] MEDS: INSULIN DETEMIR FLEXPEN/FLEX TOUCH 100 UNITS/ML 3ML SC SCH ×2 (03:22→21:03)
[2021-10-16 03:41] LABS: Hematocrit (blood only) 24.6 % (42-52); Hemoglobin 8.9 g/dL (14.0-18.0); Mean Corpuscular Hemoglobin 31.1 pg (25-34); Mean Corpuscular Hgb Conc 36.2 g/dL (32-36); Mean Platelet Volume 9.7 fL (7.4-10.4); Platelet Count 149 K/uL (130-400); RDW Standard Deviation 40.6 fL (36.4-46.3); Red Blood Count 2.86 M/uL (4.7-6.1); White Blood Count 7.07 K/uL (4.8-10.8)
[2021-10-16 03:57] LABS: Basophilic Stippling 1+; Basophils # (auto) 0.01 K/uL (0-0.2); Basophils % (auto) 0.1 %; Eosinophils # (auto) 0.13 K/uL (0-0.5); Eosinophils % (auto) 1.8 %; Immature Granulocytes # (auto) 0.02 K/uL (0.00-0.02); Immature Granulocytes % (auto) 0.3 %; Lymphocytes # (auto) 1.75 K/uL (1.2-3.4); Lymphocytes % (auto) 24.8 %; Monocytes # (auto) 0.75 K/uL (0.11-0.59); Monocytes % (auto) 10.6 %; Neutrophils # (auto) 4.41 K/uL (1.4-6.5); Neutrophils % (auto) 62.4 %; Polychromasia 1+
[2021-10-16 04:22] LABS: Est GFR (African American) 10.8 ml/min; Est GFR (Non-African American) 9.3 ml/min
[2021-10-16 04:23] LABS: Alanine Aminotransferase 10 U/L (7-52); Albumin Level 3.3 gm/dl (3.4-5.0); Alkaline Phosphatase 224 U/L (34-104); Anion Gap 9 (3-11); Aspartate Aminotransferase 11 U/L (13-39); BUN Creatinine Ratio 5.9 (10-20); Bilirubin,Total 0.6 mg/dl (0.2-1.0); Blood Urea Nitrogen 40 mg/dl (6-23); Calcium 8.5 mg/dl (8.5-10.1); Carbon Dioxide 27 mmol/L (21-32); Chloride 94 mmol/L (98-107); Globulin 3.2 gm/dl (2.5-4.0); Glucose 308 mg/dl (70-99(Fasting)); Magnesium 1.6 mg/dl (1.7-2.4); Phosphorus 4.1 mg/dl (2.5-4.9); Potassium 3.6 mmol/L (3.5-5.1); Sodium 130 mmol/L (136-145); Total Protein 6.5 gm/dl (6.0-8.3)
[2021-10-16] MEDS ORDERED: NSS + 20MEQ KCL 20 MEQ/1,000 ML BAG IV SCH (05:15)
[2021-10-16] MEDS ORDERED: ACETAMINOPHEN 325 MG TAB PO PRN (05:22)
[2021-10-16] MEDS ORDERED: MELATONIN 3 MG TAB PO PRN (05:22)
[2021-10-16] MEDS: carvediloL 12.5 MG TAB PO SCH ×3 (06:09→21:10)
--- NOTE | 2021-10-16 06:43 | XRay Report ---
XR chest 1V portable HISTORY: 41 years-old Male SEPSIS acute sepsis COMPARISON: 04/28/2021 TECHNIQUE: Portable AP view of the chest FINDINGS: Cardiac silhouette is enlarged. There is no pneumothorax, pleural effusion, airspace consolidation or overt pulmonary edema. There is unchanged right hemidiaphragmatic elevation. IMPRESSION: Cardiomegaly without acute process. ACT 112: Negative or not required by law. The above report was generated using voice recognition software. It may contain grammatical, syntax o r spelling errors. Electronically signed by: Alonso Marks M.D. 10/16/2021 6:42 AM
[2021-10-16 07:45] LABS: Estimated Average Glucose 286 mg/dl; Hemoglobin A1C 11.6 % (4.5-5.6)
[2021-10-16 08:14] LABS: Anion Gap 11 (3-11); Blood Urea Nitrogen 41 mg/dl (6-23); Calcium 8.4 mg/dl (8.5-10.1); Carbon Dioxide 25 mmol/L (21-32); Chloride 96 mmol/L (98-107); Est GFR (African American) 10.6 ml/min; Est GFR (Non-African American) 9.2 ml/min; Glucose 153 mg/dl (70-99(Fasting)); Potassium 4.3 mmol/L (3.5-5.1); Sodium 132 mmol/L (136-145)
--- NOTE | 2021-10-16 08:31 | Electrocardiogram Report ---
Test Reason : Blood Pressure : / mmHG Vent. Rate : 094 BPM Atrial Rate : 094 BPM P-R Int : 150 ms QRS Dur : 086 ms QT Int : 358 ms P-R-T Axes : 020 -02 057 degrees QTc Int : 447 ms Poor data quality, interpretation may be adversely affected Normal sinus rhythm Voltage criteria for left ventricular hypertrophy Abnormal ECG When compared with ECG of 28-APR-2021 11:39, Voltage criteria for left ventricular hypertrophy now present Otherwise no significant change Confirmed by Fran Pena ([id number]) on 10/16/2021 8:31:38 AM Referred By: REFERRED SELF Confirmed By:Fran Pena
[2021-10-16] MEDS: guaiFENesin 600 MG TABCR PO SCH ×2 (08:45→21:04)
[2021-10-16] MEDS: DULoxetine HCL 60 MG CAP PO SCH (08:45)
[2021-10-16] MEDS: PANTOprazole 40 MG TAB PO SCH (08:45)
[2021-10-16] MEDS: ASPIRIN 81 MG ECTAB PO SCH (08:45)
[2021-10-16] MEDS: GABAPENTIN 300 MG CAP PO SCH ×2 (08:45→21:04)
[2021-10-16] MEDS: INSULIN ASPART PER UNIT SC SCH ×4 (08:48→21:07)
--- NOTE | 2021-10-16 10:14 | Nephrology Consultation ---
Date of Consultation October 16, 2021 Assessment & Plan (1) ESRD (end stage renal disease): (2) Hypertension: (3) Uncontrolled type 1 diabetes mellitus with neurologic complication, with long-term current use of insulin: (4) Hyperosmolar hyperglycemic state (HHS): End-stage renal disease on hemodialysis presented with HHS and possible pneumonia. Currently on empiric antibiotic. He is 8 kg above his dry weight. Today is regular dialysis day. Has functioning AV fistula. -- Will do 4 hours hemodialysis this morning as his regular schedule, aim for 4 L UF as tolerated. -- Discontinue further IV fluid, fluid restriction to less than 1 L per day, low-potassium diet. -- ANTHOYN 22526 units x 1 dose with dialysis. -- Continue on phosphate binder with meals. Will follow Thank you for allowing me to participate in your patient's care. It was a pleasure to see Juan Jose History of Present Illness Reason for Consultation: End-stage renal disease on hemodialysis, volume overload, need for dialysis. Attending Physician: Peyton Becerra MD History of Present Illness Ventura Snell is a 41-year-old male with past medical history significant for end-stage renal disease on hemodialysis, hypertension, diabetes, GERD, h/o COVID -19 in Apr 2021, admitted to the hospital with Hyperglycemia and possible pneumonia. Nephrology consult was requested to provide dialysis while inpatient. Electronic medical records are reviewed in detail during patient's visit. Juan Jose presented with 3 days history of cough, shortness of breath, runny nose and episodes of vomiting associated with cough. Denied fever, chills, chest pain, nausea, Abdominal pain or diarrhea. in ER his blood sugar was noted to be above 900, bicarb was normal with normal anion gap. He was started with insulin and also IV fluid. Chest x-ray was otherwise unremarkable but he was empirically started on ceftriaxone. Juan Jose has end-stage renal disease secondary to diabetic nephropathy, has been on hemodialysis Saturday, Saturday, Saturday at [facility]. He had regular dialysis last Saturday and he is due for dialysis today. His estimated dry weight is 125 kg and he is almost 8 kg above his dry weight. He generally has tendency for high weight gain in between dialysis. Av fistula has been functioning well.. This morning Overall he feels poorly and noticing some shortness of breath. Is mainly concerned with significant weight gain and the fact that he has been on IV fluid. Allergies Allergy/AdvReac Type Severity Reaction Status Date / Time lisinopril AdvReac Intermediate COUGH Verified 10/15/21 23:49 Home Medications Medication Instructions Recorded Confirmed Type calcium acetate 667 mg tablet 667 mg PO TIDM tab 07/14/19 10/15/21 History (Calphron) OneTouch Delica Lancets 33 gauge #400 ea NS 10/16/19 10/15/21 Rx (lancets) blood sugar diagnostic (OneTouch #400 ea 01/29/20 10/02/21 Rx Verio test strips) blood-glucose meter (OneTouch #1 ea 01/29/20 10/15/21 Rx Verio Flex meter) acetone (urine) test (Ketostix) #100 ea 02/18/20 10/02/21 Rx levothyroxine 50 mcg tablet 50 mcg PO PM 03/23/20 10/15/21 History (Synthroid) diphenhydramine HCl 25 mg tablet 25 mg PO DIRECTED PRN 11/02/20 10/15/21 History (Benadryl Allergy) vitamin B complex and vitamin C 1 cap PO 3XWK 11/25/20 10/15/21 History no.20-folic acid 1 mg capsule (Triphrocaps) aspirin 81 mg tablet,delayed 81 mg PO DAILY #30 tab 11/26/20 10/15/21 Rx release bumetanide 2 mg tablet 2 mg .ROUTE DAILY #90 tab 12/30/20 10/15/21 Rx duloxetine 60 mg capsule,delayed 60 mg PO DAILY #90 cap 01/11/21 10/15/21 Rx release (Cymbalta) Levemir FlexTouch U-100 Insuln 100 50 unit SQ HS 30 Days #15 ml NS 01/25/21 10/15/21 Rx unit/mL (3 mL) subcutaneous pen (insulin detemir U-100) carvedilol 12.5 mg tablet (Coreg) 12.5 mg PO BID #180 tab 01/25/21 10/15/21 Rx pen needle, diabetic 29 gauge x #400 ea 01/25/21 10/15/21 Rx 1/2" (Comfort EZ Pen [place]) acetaminophen 300 mg-codeine 30 mg 1 tab PO BID PRN #30 tab 05/23/21 10/15/21 Rx tablet gabapentin 300 mg capsule 600 mg PO BID #360 cap 05/23/21 10/15/21 Rx (Neurontin) atorvastatin 80 mg tablet (Lipitor) 80 mg PO HS #30 tab 06/23/21 10/15/21 Rx pantoprazole 40 mg tablet,delayed 40 mg PO QAM #90 tab 06/28/21 10/15/21 Rx release (Protonix) insulin aspart U-100 100 unit/mL 60 unit SUBCUT TID #165 ml 08/18/21 10/15/21 Rx (3 mL) subcutaneous pen Patient History Medical History Chronic venous insufficiency Depression Diabetic peripheral neuropathy associated with type 1 diabetes mellitus Diabetic retinopathy Erectile dysfunction ESRD (end stage renal disease) requiring hemodialysis. MWF at [facility]. GERD (gastroesophageal reflux disease) Well controlled and stable H/O febrile seizure as a child (every year until he was 11 years old) no problems since. High cholesterol Hypertension Hypothyroidism Port-A-Cath in place chest area dialysis Thrombosis of arteriovenous dialysis fistula (~02/15/20) Surgical History H/O detached retina repair History of esophagogastroduodenoscopy (EGD) S/P arteriovenous (AV) fistula creation left side, unable to use Family History Mother Diabetes Coronary heart disease Hypertension Father Coronary heart disease Hypertension Brother Coronary heart disease Kidney disease Uncle Colorectal cancer Grandmother Diabetes Aunt Diabetes Unknown Dyslipidemia Other Cancer No family history of adverse response to anesthesia Social History Smoking Status: Never smoker Second Hand Exposure: No; Hx Alcohol Use: Yes Alcohol type: beer Hx Substance Use: No Preferred Language: Beninese Communication Ability: Effective Visual Impairment: No Limitations Hearing Ability: Normal 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 Beliefs That Will Affect Care: None marital status: Single Current Living Situation: Family Current Living Situation Comment: Brother 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 Physical Exam Constitutional: WD/WN, vitals as above + ill appearing; no acute distress Eyes: + anicteric sclerae Neck: normal visual inspection Respiratory: + respiratory distress and + cough Auscultation: + diminished lung sounds Cardiovascular: Rate/Rhythm: regular rate and regular rhythm Extremities: + edema Gastrointestinal (Abdomen): Inspection/Auscultation: abdomen normal to inspection and normal bowel sounds Percussion/Palpation: abdomen soft; abdomen nontender Musculoskeletal: Extremities: extremities normal to inspection Skin: no rashes Neurologic: no focal motor deficits Psychiatric: Orientation: alert and oriented x 3 Affect: euthymic affect Results & Data ([facility]) Vital Signs (Past 12 Hours) Vital Signs Temp Pulse Pulse Pulse Pulse Resp BP 10/16/21 09:25 36.7 C 82 10/16/21 06:08 83 10/16/21 05:00 37.1 C 89 16 10/16/21 04:30 82 19 176/118 H 10/16/21 04:15 16 10/16/21 04:00 82 16 182/119 H 10/16/21 03:45 82 17 10/16/21 03:30 84 18 190/113 H 10/16/21 03:15 83 14 10/16/21 03:00 84 17 184/103 H 10/16/21 02:45 83 13 10/16/21 02:30 85 83 17 185/85 H 10/16/21 02:15 83 18 10/16/21 02:00 84 17 156/85 H 10/16/21 01:45 84 16 10/16/21 01:30 83 18 174/102 H 10/16/21 01:15 85 18 10/16/21 01:00 87 18 153/93 H 10/16/21 00:45 88 14 10/16/21 00:30 90 89 14 148/90 H 10/16/21 00:15 90 10/16/21 00:10 92 H 10/16/21 00:00 92 H 14 173/90 H 10/15/21 23:50 91 H 31 H 10/15/21 23:40 93 H 26 H 10/15/21 23:30 93 H 13 176/95 H 10/15/21 23:21 93 H 21 10/15/21 23:20 96 H 20 10/15/21 23:10 95 H 17 10/15/21 23:06 94 H 95 H 20 10/15/21 23:04 95 H 14 174/104 H 10/15/21 23:01 98 H 22 10/15/21 22:42 37.1 C 95 H 20 198/100 H BP Pulse Ox 10/16/21 09:25 10/16/21 06:08 163/90 H 10/16/21 05:00 154/85 H 99 10/16/21 04:30 100 10/16/21 04:15 100 10/16/21 04:00 100 10/16/21 03:45 100 10/16/21 03:30 100 10/16/21 03:15 100 10/16/21 03:00 100 10/16/21 02:45 100 10/16/21 02:30 185/85 H 100 10/16/21 02:15 100 10/16/21 02:00 100 10/16/21 01:45 99 10/16/21 01:30 100 10/16/21 01:15 99 10/16/21 01:00 97 10/16/21 00:45 97 10/16/21 00:30 148/90 H 97 10/16/21 00:15 95 10/16/21 00:10 97 10/16/21 00:00 96 10/15/21 23:50 97 10/15/21 23:40 97 10/15/21 23:30 98 10/15/21 23:21 174/104 H 97 10/15/21 23:20 98 10/15/21 23:10 99 10/15/21 23:06 174/104 H 98 10/15/21 23:04 98 10/15/21 23:01 98 10/15/21 22:42 98 PG Care Time/CCT Total # of Minutes Spent Total Time Spent with Patient: Total time spent is greater than 50% in coordination of care (as documented) at patient's floor/unit and/or counseling patient: Coding Level of Care Code 06655 Initial Inpt Care Lvl 3 Diagnoses ESRD (end stage renal disease) N18.6 Hypertension I10 Hypertension type: unspecified Uncontrolled type 1 diabetes mellitus with neurologic complication, with long- term current use of insulin E10.49; E10.65 Hyperosmolar hyperglycemic state (HHS) E11.00; E11.65 (1) Hypertension Hypertension type: unspecified Qualified Code(s): I10 - Essential (primary) hypertension
[2021-10-16] MEDS ORDERED: EPOETIN ALFA 20,000 UNITS/ML VIAL IV STA (10:28)
[2021-10-16 15:18] LABS: Anion Gap 7 (3-11); BUN Creatinine Ratio 4.8 (10-20); Blood Urea Nitrogen 23 mg/dl (6-23); Calcium 8.7 mg/dl (8.5-10.1); Carbon Dioxide 30 mmol/L (21-32); Chloride 95 mmol/L (98-107); Est GFR (African American) 16.3 ml/min; Glucose 186 mg/dl (70-99(Fasting)); Potassium 4.1 mmol/L (3.5-5.1); Sodium 132 mmol/L (136-145)
[2021-10-16] MEDS ORDERED: ATORVASTATIN 40 MG TAB PO SCH (21:00)
[2021-10-16] MEDS ORDERED: LEVOTHYROXINE SODIUM 50 MCG TABLET PO SCH (21:00)
--- NOTE | 2021-10-17 00:28 | Billing Data ---
Date of Service October 17, 2021 Coding Level of Care Code 17093 Initial Inpt Care Lvl 3
--- NOTE | 2021-10-17 06:59 | Hospitalist Progress Note ---
Date of Service October 17, 2021 Assessment & Plan (1) Hyperosmolar hyperglycemic state (HHS): Plan: 41yo male with a history of T1DM, HHS, ESRD (dialysis qMWF), HTN, HLD, hypothyroidism, pneumonia, GERD, chronic venous insufficiency, MDD, and covid (04/2021) presents with a 2-3 day history of SOB, cough, and shaking. HHS, uncontrolled T1DM, lactic acidosis -Glucose on admission 951, lactate 3.1, anion gap not elevated -Plasma osmolality 330,urine ketones negative. A.m. lactic acidosis also negative. -Received regular insulin 20u sc in ED, repeat glucose 437 (three hours after initial BSG) -Stopped NSS @ 100mL/hr + KCl 20mEq (one bag ordered, caution with fluids given patient's ESRD) after hyperglycemia resolved. * Continue patient's home Levemir (50u qHS) * Continue ISS (started once pt's BSG fell below 500) * Trend AM BMP, CBC Cough, SOB -Oxygen saturation adequate on admission without need for supplemental oxygen -CXR with BL hazy opacities, obesity hypoventilation vs infectious; covid negative -Likely due to viral URI +/- obesity hypoventilation syndrome -Added Mucinex, which sound improvement in patient's cough. * Flutter valve qid * Mucinex, as above Pseudohyponatremia -Sodium on admission 124; after correction for hyperglycemia, sodium 138-144 (sodium today 133). -No intervention indicated * Continue BMP checks as above. ESRD -Creatinine on admission 6.81 (slightly improved from 04/2021) -Last dialysis three days ago (10/13/21) -Consulted nephrology for possible dialysis, as patient was supposed to receive dialysis later today (qMWF). Patient was dialyzed yesterday. -Patient typically takes bumetanide 2mg after dialysis (qMWF) * Per nephro: Will dialyze tomorrow, then reassess patient's volume status at that time. Transaminitis -AlkP 270 on admission; AST, ALT, total bilirubin within normal limits -Alkaline phosphatase 180 today. AST, ALT, T bili remain within normal limits. Anemia -Hgb on admission 9.6 (prior values largely in the 8.0-11.0 range), fell to 8.9 after receiving fluids -Anemia likely secondary to ESRD; no signs/symptoms of active bleeding -Pt has history of acute blood loss anemia; will obtain type/screen just in case * Trend daily CBC HTN -BP since arrival 140-190s/80-100s; additional dose of pt's home coreg given * Continue Coreg 12.5mg bid HLD: continue home atorvastatin, aspirin Diabetic nephropathy: continue home gabapentin, duloxetine GERD: continue home pantoprazole Hypothyroidism: continue home levothyroxine MDD: continue home duloxetine FEN: DM2 diet Code status: Full code DVT ppx: SCDs Consults: nephrology PT/OT: ordered Case management: consulted for possible BSG sensor (pt expresses interest in [facility] [employer]) Dispo: med/surg (2) Uncontrolled type 1 diabetes mellitus with kidney complication, with long- term current use of insulin: (3) Lactic acidosis: (4) Hypertension: (5) Dyslipidemia: (6) ESRD (end stage renal disease): (7) Acute dyspnea: (8) GERD (gastroesophageal reflux disease): (9) Depression: (10) Chronic venous insufficiency: Admission and Anticipated Discharge Date Admission Date: October 16, 2021 Subjective Patient is seated at bedside. He reports feeling "puffy" in his legs. Patient's cough improved. He wants to know when he can leave. Otherwise he has no acute concerns or complaints at this time. Review of Systems Review of Systems: All systems reviewed & are unremarkable except as noted in HPI & below Physical Exam Physical Exam: General: Well-appearing, alert, interactive, and in no acute distress. HEENT: Normocephalic, atraumatic. EOM intact. Good conjugate gaze. Nares patent. Moist mucosal membranes. Tympanic membrane without bulging/fluid. Diffuse erythema and flakiness consistent with dandruff/seborrheic dermatosis present across patient's scalp. Neck: Supple. No lymphadenopathy. Normal ROM. CV: Regular rate and rhythm. Normal S1 and S2. No murmurs gallops or rubs. No pedal edema. Respiratory: Normal respiratory effort. Diminished lung sounds to auscultation bilaterally. No crackles, rhonchi, or wheezes. Abdomen: Soft, nondistended abdomen. No bruits heard on auscultation. No tenderness to deep palpation. No guarding or rebound. Extremities: Soles of patient's feet are diffusely scaly and dry. Venous stasis changes present across patient's lower shins bilaterally. Skin: Multiple areas of dryness, scaliness, as noted above (extremities). No open sores or wounds. Results & Data Results & Data ([facility]) Vital Signs (Past 12 Hours) Vital Signs Temp Pulse Resp BP Pulse Ox 10/17/21 04:10 77 147/88 H 10/16/21 21:53 36.9 C 84 22 183/78 H 98 10/16/21 21:10 81 18 182/99 H (1) Depression Active/Remission status: remission status unspecified Depression Type: major depressive disorder Major depression recurrence: recurrent Qualified Code(s): F33.9 - Major depressive disorder, recurrent, unspecified (2) GERD (gastroesophageal reflux disease) Esophagitis presence: esophagitis presence not specified Qualified Code(s): K21.9 - Gastro-esophageal reflux disease without esophagitis (3) Hypertension Hypertension type: unspecified Qualified Code(s): I10 - Essential (primary) hypertension
[2021-10-17 07:52] LABS: Basophils # (auto) 0.01 K/uL (0-0.2); Basophils % (auto) 0.2 %; Eosinophils # (auto) 0.16 K/uL (0-0.5); Hematocrit (blood only) 28.2 % (42-52); Hemoglobin 9.9 g/dL (14.0-18.0); Immature Granulocytes # (auto) 0.03 K/uL (0.00-0.02); Immature Granulocytes % (auto) 0.6 %; Lymphocytes # (auto) 1.66 K/uL (1.2-3.4); Lymphocytes % (auto) 30.8 %; Mean Corpuscular Hgb Conc 35.1 g/dL (32-36); Mean Corpuscular Volume 88.4 fL (80-100); Mean Platelet Volume 10.7 fL (7.4-10.4); Monocytes # (auto) 0.44 K/uL (0.11-0.59); Monocytes % (auto) 8.2 %; Neutrophils # (auto) 3.09 K/uL (1.4-6.5); Neutrophils % (auto) 57.2 %; Platelet Count 179 K/uL (130-400); RDW Coefficient of Variation 13.3 % (11.5-14.5); RDW Standard Deviation 43.3 fL (36.4-46.3); Red Blood Count 3.19 M/uL (4.7-6.1); White Blood Count 5.39 K/uL (4.8-10.8)
[2021-10-17 08:17] LABS: Alanine Aminotransferase 10 U/L (7-52); Albumin Level 3.4 gm/dl (3.4-5.0); Alkaline Phosphatase 180 U/L (34-104); Anion Gap 10 (3-11); Aspartate Aminotransferase 13 U/L (13-39); BUN Creatinine Ratio 5.5 (10-20); Bilirubin,Total 0.6 mg/dl (0.2-1.0); Blood Urea Nitrogen 33 mg/dl (6-23); Calcium 8.8 mg/dl (8.5-10.1); Carbon Dioxide 26 mmol/L (21-32); Chloride 97 mmol/L (98-107); Est GFR (African American) 12.6 ml/min; Est GFR (Non-African American) 10.8 ml/min; Globulin 3.3 gm/dl (2.5-4.0); Glucose 116 mg/dl (70-99(Fasting)); Magnesium 1.8 mg/dl (1.7-2.4); Phosphorus 4.9 mg/dl (2.5-4.9); Potassium 4.1 mmol/L (3.5-5.1); Sodium 133 mmol/L (136-145); Total Protein 6.7 gm/dl (6.0-8.3)
[2021-10-17] MEDS: carvediloL 12.5 MG TAB PO SCH (08:53)
[2021-10-17] MEDS: guaiFENesin 600 MG TABCR PO SCH (08:53)
[2021-10-17] MEDS: GABAPENTIN 300 MG CAP PO SCH (08:53)
[2021-10-17] MEDS: DULoxetine HCL 60 MG CAP PO SCH (08:53)
[2021-10-17] MEDS: ASPIRIN 81 MG ECTAB PO SCH (08:53)
[2021-10-17] MEDS: PANTOprazole 40 MG TAB PO SCH (08:53)
[2021-10-17] MEDS: INSULIN ASPART PER UNIT SC SCH ×2 (08:59→12:51)
--- NOTE | 2021-10-17 10:33 | Nephrology Progress Note ---
Date of Service October 17, 2021 Assessment & Plan (1) ESRD (end stage renal disease): (2) Hypertension: (3) Uncontrolled type 1 diabetes mellitus with neurologic complication, with long-term current use of insulin: (4) Hyperosmolar hyperglycemic state (HHS): Plan: End-stage renal disease on hemodialysis presented with HHS and possible pneumonia. Currently on empiric antibiotic. He is 8 kg above his dry weight. Today is regular dialysis day. Has functioning AV fistula. -- had dialysis yesterday as his regular schedule, had 4.3 L UF, currently his 4 kg above his dry weight but respiratory status acceptable. No need for dialysis today. Plan for regular dialysis tomorrow. Can be done as an outpatient if he is otherwise clinically stable and gets discharged this afternoon. -- ANTHONY 09476 units x 1 dose Was given with dialysis in 10/16/2021 -- Continue on phosphate binder with meals. Will follow Admission and Anticipated Discharge Date Admission Date: October 16, 2021 Luci Ingram was seen and examined in his room this morning. Overall he feels well, denies any shortness of breath or chest pain and feels ready to be discharged. Had dialysis yesterday had 4.3 L UF, he is continues to be volume overloaded with blood pressure relatively high but no respiratory distress. Review of Systems Review of Systems: Detailed review of system was otherwise unremarkable. Physical Exam Constitutional: WD/WN, vitals as above no acute distress Eyes: + anicteric sclerae Neck: normal visual inspection Respiratory: Auscultation: lungs clear to auscultation bilaterally Cardiovascular: Rate/Rhythm: regular rate and regular rhythm Extremities: + edema Musculoskeletal: Extremities: extremities normal to inspection Skin: no rashes Neurologic: no focal motor deficits Psychiatric: Orientation: alert and oriented x 3 Affect: euthymic affect Results & Data ([facility]) Vital Signs (Past 12 Hours) Vital Signs Temp Pulse Resp BP Pulse Ox 10/17/21 07:32 36.6 C 78 17 164/81 H 96 10/17/21 04:10 77 147/88 H PG Care Time/CCT Total # of Minutes Spent Total Time Spent with Patient: Total time spent is greater than 50% in coordination of care (as documented) at patient's floor/unit and/or counseling patient: Coding Level of Care Code 28068 Subseq Hosp Care Lvl 3 Diagnoses ESRD (end stage renal disease) N18.6 Hypertension I10 Hypertension type: unspecified Uncontrolled type 1 diabetes mellitus with neurologic complication, with long- term current use of insulin E10.49; E10.65 Hyperosmolar hyperglycemic state (HHS) E11.00; E11.65 (1) Hypertension Hypertension type: unspecified Qualified Code(s): I10 - Essential (primary) hypertension
--- NOTE | 2021-10-17 12:00 | Electrocardiogram Report ---
Test Reason : Blood Pressure : / mmHG Vent. Rate : 076 BPM Atrial Rate : 076 BPM P-R Int : 142 ms QRS Dur : 088 ms QT Int : 420 ms P-R-T Axes : 022 -04 040 degrees QTc Int : 472 ms Normal sinus rhythm Voltage criteria for left ventricular hypertrophy Abnormal ECG When compared with ECG of 15-OCT-2021 23:10, No significant change was found Confirmed by Fran Pena ([id number]) on 10/17/2021 12:00:46 PM Referred By: REFERRED SELF Confirmed By:Fran Pena
--- NOTE | 2021-10-17 15:37 | Discharge Summary ---
Date of Service October 17, 2021 Admission HPI Per Admitting Provider 41yo male with a history of T1DM, HHS, ESRD (dialysis qMWF), HTN, HLD, hypothyroidism, pneumonia, GERD, chronic venous insufficiency, MDD, and covid (04/2021) presents with a 2-3 day history of SOB, cough, and shaking. Symptoms began after patient received dialysis last Saturday (10/13). Patient also notes a runny nose, and a few episodes of vomiting which he says were brought on by severe coughing (denies associated nausea). Symptoms began gradually. Patient came to the ED primarily due to difficulty controlling his cough. Denies fever, headache, changes in vision, CP, abdominal pain, diarrhea, dizziness, sick conta cts, or other symptoms. Patient notes he "never" misses a dose of his short-acting insulin, although he admits he does not check his BSG at home, and doses his short-acting insulin "based on how I feel". Patient notes he only remembers to take his nighttime long-acting insulin 2-4 times per week, and does not remember the last time he took it. Admission Exam Per Admitting Provider Constitutional: disheveled, tired-appearing, NAD HEENT: MMM CV: regular rhythm, no murmur appreciated, extremities well-perfused, 2+ pitting edema up to the knee Resp: breath sounds diminished L>R, no wheezes/rales/rhonchi appreciated, no increased work of breathing GI: soft, nondistended, nontender, BS normoactive MSK: no gross deformities appreciated Neuro: alert, oriented, no focal neurologic deficit appreciated Principal Diagnosis [facility] Discharge Exam General: Disheveled appearing, but otherwise alert, interactive man in no acute distress. HEENT: Normocephalic, atraumatic. EOM intact. Good conjugate gaze. Nares patent. Moist mucosal membranes. Diffuse erythema and flakiness of the scalp consistent with seborrheic dermatitis. Neck: Supple. No lymphadenopathy. Normal ROM. CV: Regular rate and rhythm. Normal S1 and S2. No murmurs gallops or rubs. No pedal edema. Respiratory: Normal respiratory effort. Decreased lung sounds bilaterally on auscultation. No crackles, rhonchi, or wheezes. No signs of respiratory distress. Abdomen: Soft, nondistended abdomen. No bruits heard on auscultation. No tenderness to deep palpation. No guarding or rebound. Extremities: Normal tone and ROM. Strength and sensation intact. Unable to assess capillary refill due to onychomycosis. 2+ dp equal bilaterally. Skin: Diffuse areas of dry and flaky skin across lower extremities and soles of feet bilaterally. Venous stasis skin changes present across lower shins bilaterally. No open sores or wounds. Discharge Data Allergies Allergy/AdvReac Type Severity Reaction Status Date / Time lisinopril AdvReac Intermediate COUGH Verified 10/15/21 23:49 Consultations 10/16/21 00:59 ED Decision to Admit Stat 10/16/21 07:00 Consult Nephrology Routine Diabetes Follow up Diabetes Follow-up Needed for HgbA1c >9% Hospital Course (1) Hyperosmolar hyperglycemic state (HHS): 41yo male with a history of T1DM, HHS, ESRD (dialysis qMWF), HTN, HLD, hypothyroidism, pneumonia, GERD, chronic venous insufficiency, MDD, and covid (04/2021) presents with a 2-3 day history of SOB, cough, and shaking. HHS, uncontrolled T1DM, lactic acidosis -Glucose on admission 951, lactate 3.1, anion gap not elevated -Plasma osmolality 330,urine ketones negative. Lactic acidosis test the foll owing morning was also negative. -He received regular insulin 20u sc in ED, repeat glucose 3 hours later was 437. -Stopped NSS @ 100mL/hr + KCl 20mEq once hyperglycemia resolved. * Continued patient's home Levemir (50u qHS) * Continued ISS (started once pt's BSG fell below 500) * Patient's blood sugar on the morning of discharge was 116. -reiterated dietary compliance as outpatient. Cough, SOB sec to fluid overload d/t IV hydration for HHS -Oxygen saturation adequate on admission without need for supplemental oxygen -CXR with BL hazy opacities, obesity hypoventilation vs infectious; covid negative -likely from fluid overload due to IV hydration for HHS -Improved fluid status but not completely euvolemic on discharge. HD after discharge to further address volume status -symptoms resolved prior to discharge Pseudohyponatremia -Sodium on admission 124; after correction for hyperglycemia, sodium 138-144 (sodium today 133). -No intervention indicated -Sodium 133 on morning of discharge. ESRD -Creatinine on admission 6.81 (slightly improved from 04/2021) -Last dialysis three days ago (10/13/21) -Consulted nephrology for possible dialysis, as patient was supposed to receive dialysis later today (qMWF). Patient was dialyzed according to at home schedule 10/16/2021. Transaminitis -AlkP 270 on admission; AST, ALT, total bilirubin within normal limits -Alkaline phosphatase improved to 180 on morning of discharge. AST, ALT, T bili were within normal limits for duration of hospital stay. Anemia -Hgb on admission 9.6 (prior values largely in the 8.0-11.0 range), fell to 8.9 after receiving fluids -Anemia likely secondary to ESRD; no signs/symptoms of active bleeding HTN -Continued on home Coreg 12.5mg bid HLD: continued home atorvastatin, aspirin Diabetic nephropathy: continued home gabapentin, duloxetine GERD: continued home pantoprazole Hypothyroidism: continued home levothyroxine MDD: continued home duloxetine Total Time Total Time Spent Total Time Spent (In Minutes): 20 Discharge Plan Discharge Items Patient Disposition: Home - Self-Care Reason For Visit: HHS, COUGH, SOB Discharge Diagnosis: HHS Activity: Per Instructions section Non-emergency contact: Primary Care Provider Call non-emergency contact if: you have any medication questions, your symptoms worsen, your pain is concerning for you and your temperature is above 101 Follow-up/Referrals: Maki Peterson MD [Primary Care Provider] - 10/19/21 10:30 am Diet: Regular Addtl Attending Provider Instructions: You were admitted to the hospital for x. You were treated with x. A discharge summary will be sent to your primary care physician to ensure continuity of care. Please bring this discharge summary with you to your next office appointment so that your provider can review it at that time. Follow-up appointments: * Make a follow-up appointment with your PCP within the next week. It is very important that you follow up with them shortly after discharge from the hospital. * We have requested a follow-up appointment with your orthotics specialist within one week of discharge. Please call their office if you do not hear from them. * Keep all your follow-up appointments as already scheduled. If you cannot make an appointment, notify your provider. Medications: Your medication list has been reviewed and reconciled upon discharge to ensure accuracy and continuity of care. An updated list of all your medications is included with your hospital discharge paperwork. Please review this list closely, and make note of any changes. Take your medications as instructed; do not skip a dose of your medicines. Make sure all of your doctors know every medicine you are taking (including evhe-tab-zikfvci medicines, vitamins, and supplements). Call your primary care provider before taking any new medicines (including scla-bjq-bhqavls medicines, vitamins, and supplements), because some of these may interact with your current medications, or may make your symptoms worse. Tell your primary care provider if you cannot afford your medications. CONTACT YOUR PRIMARY CARE PROVIDER if you experience any of the following: * Sudden unexplained nausea, vomiting, diarrhea, or abdominal pain * Excessive thirst, increased urination, drowsiness, or confusion * Difficulty following your treatment plan, or difficulty taking medications CALL 911 OR GO TO THE EMERGENCY DEPARTMENT if you experience any of the following: * Sudden, severe abdominal pain or nausea/vomiting * Severe chest pain, or chest pain that radiates (moves) to your jaw or arm * Sudden, severe shortness of breath or difficulty breathing Thank you for allowing us to participate in your care. Pending Studies at Discharge: No Stand-Alone Forms: My [facility], Smoking Cessation Medications and DC Order Prescriptions: Continued (DME) Ketostix Strip See Rx Instructions .ROUTE .MEDSUPPLY Qty: 100 RF: 3 bumetanide 2 mg tablet 2 mg .ROUTE DAILY Qty: 90 RF: 5 duloxetine [Cymbalta] 60 mg capsule,delayed release(DR/EC) 60 mg PO DAILY Qty: 90 RF: 3 (DME) pen needle, diabetic [Comfort EZ Pen [place]] 29 gauge x 1/2" needle See Rx Instructions .ROUTE .MEDSUPPLY Qty: 400 RF: 3 atorvastatin [Lipitor] 80 mg tablet 80 mg PO HS Qty: 30 RF: 5 pantoprazole [Protonix] 40 mg tablet,delayed release (DR/EC) 40 mg PO QAM Qty: 90 RF: 3 insulin aspart U-100 100 unit/mL (3 mL) insulin pen 60 unit subcut TID Qty: 165 RF: 0 (DME) OneTouch Verio test strips Strip See Rx Instructions .ROUTE .MEDSUPPLY Qty: 400 RF: 3 (DME) blood-glucose meter [OneTouch Verio Flex meter] Misc See Rx Instructions .ROUTE .MEDSUPPLY Qty: 1 RF: 0 gabapentin [Neurontin] 300 mg capsule 600 mg PO BID Qty: 360 RF: 3 acetaminophen-codeine 300-30 mg tablet 1 tab PO BID PRN (Reason: Pain) Qty: 30 RF: 0 calcium acetate [Calphron] 667 mg tablet 667 mg PO TIDM RF: 0 (DME) lancets [OneTouch Delica Lancets] 33 gauge misc See Rx Instructions .ROUTE .MEDSUPPLY Qty: 400 RF: 3 carvedilol [Coreg] 12.5 mg tablet 12.5 mg PO BID Qty: 180 RF: 3 Levemir FlexTouch U-100 Insuln 100 unit/mL (3 mL) insulin pen 50 unit SQ HS 30 Days Qty: 15 RF: 5 levothyroxine [Synthroid] 50 mcg tablet 50 mcg PO PM RF: 0 diphenhydramine HCl [Benadryl Allergy] 25 mg Tablet 25 mg PO DIRECTED PRN (Reason: allergies) RF: 0 Triphrocaps 1 mg capsule 1 cap PO 3XWK RF: 0 aspirin 81 mg tablet,delayed release (DR/EC) 81 mg PO DAILY Qty: 30 RF: 0 Discharge Orders: Discharge Order (Routine); Ordered 10/17/21 Ordered By: Minerva Kwan/Other Patient Handouts: ED Diabetes with High Blood Sugar Admission Data Admit Date/Time: 10/16/21 03:07 Attending Provider: Peyton Becerra Admit Provider: Shiv Spears Primary Care Provider: Maki Peterson Other Providers: Yoav Patrick Fahima Other Interventions: Discharge Summary Assessment (RN) Last Done: 10/17/21 15:34 Supervising Physician Co-Signing Physician Notes Resident Physician Supervision Note: I independently interviewed and examined the patient and verified the orourke history and physical, reviewed labs and image studies and agree with resident Dr. Amor findings and care plan. Resident Activity Tracking Resident Involvement: Resident Care Provided Care Provided: Adult Hospital Medicine
== END 2021-10-17 16:28 | disposition home or self-care (01) | DRG 638 ==
LOC: ED 22:52 → SUATTDRO 10-16 03:07 → 3N 10-16 03:07

== ENCOUNTER 2022-08-22 08:54 | Inpatient (IN) ==
--- NOTE | 2022-08-22 09:20 | Emergency Department Note ---
Impression & Plan SOB (shortness of breath), Anemia, CHF (congestive heart failure), Renal failure, Elevated troponin ED Provider Note NAME: VIJAYA HAMILTON AGE: 41 SEX: M : 1980 ARRIVES VIA: Ambulance INFORMANT: [Patient][ems] ED PROVIDER(S): [Aaron Bray MD] CHIEF COMPLAINT: Short of breath HISTORY OF PRESENT ILLNESS: The patient is a 41-year-old male who was at dialysis today. He completed nearly all of the treatment but was then sent to the ED for shortness of breath. He admits to coughing for the last 3 days. No fever. He has not had vomiting or diarrhea. He has a history of walking pneumonia and is concerned about this possibility. As per the EMS notes, the patient may have been in atrial fibrillation initially, this broke though on the way here and he is now in a sinus rhythm. PMHx/PSHx: See Below SOCIAL HISTORY: See Below. PHYSICAL EXAM: GENERAL: Patient is in no acute distress. HEENT: No acute trauma, normocephalic atraumatic, mucous membranes moist, no nasal congestion. NECK: No stridor, no adenopathy, no meningismus, trachea is midline. LUNGS: Crackles heard at the left lung base, no wheezing, no respiratory distress. HEART: Mildly tachycardic, regular rhythm, no murmurs ABDOMEN: Soft, nontender, bowel sounds positive, no peritonitis. EXTREMITIES: No cyanosis, mild bilateral pedal edema, full range of motion of all the joints without pain or difficulty, no signs for acute trauma. NEUROLOGIC: Oriented x 3, no acute motor or sensory deficits, no focal weakness. SKIN: No jaundice, no diaphoresis. Rectal exam: Brown stool, heme-negative. DIFFERENTIAL DIAGNOSIS: Pneumonia or bronchitis, viral illness, CHF, anemia, electrolyte imbalance, dysrhythmia, LA, among others. EMERGENCY DEPARTMENT COURSE/PROCEDURES: Prior/Outside records reviewed: EMS notes. ECG per my interpretation: Indication was shortness of breath. The ECG shows a sinus tachycardia with a rate of 102. LVH is seen. No concerning ST elevation, no PVCs. QTc is 477. Continuous Cardiac Monitoring per my interpretation: An order was placed for continuous cardiac monitoring. The monitor shows a rate of 99 with normal sinus rhythm. Critical Care Note: I have personally spent 49 minutes of critical care time in the direct management of this patient. This includes bedside care, interpretation of diagnostic studies, and testing, discussion with consultants, patient, and family members, and other required patient management activities. This 49 minutes is in excess of all separately billable procedures. MEDICAL DECISION MAKING: There is no leukocytosis. The patient is anemic with a hemoglobin of 7.7. This is a drop for him when comparing to previous testing. I did perform a rectal exam, the stool was brown and heme-negative. There is a normal platelet count. No coagulopathy. There is evidence for renal failure as consistent with his dialysis need. Lactic acid is not elevated making severe sepsis less likely. No concerning liver enzyme elevation. ECG shows a sinus tachycardia, no obvious acute ischemia. Cardiac enzyme testing x1 is elevated. This troponin elevation could be secondary to mismatch, cardiac injury or possibly his chronic renal failure. Respiratory bio fire was done, this was negative. Chest film per my review does show some mild CHF. No pneumothorax. The patient did sign consent for a blood transfusion. Blood was ordered and placed on hold. I spoke to the patient about a hospital stay, he did consent. I spoke with case management, the on-call hospitalist was consulted. In short, the patient is short of breath. His dyspnea is likely a result of his CHF coupled with his anemia. There was a concern for potential A-fib prior to his arrival here, he can be monitored for any dysrhythmia. DISPOSITION: Patient's presentation and findings warrant a hospital stay. Past Med/Surg History Medical History Chronic venous insufficiency Depression Diabetic peripheral neuropathy associated with type 1 diabetes mellitus Diabetic retinopathy Erectile dysfunction ESRD (end stage renal disease) requiring hemodialysis. MWF at [facility]. GERD (gastroesophageal reflux disease) Well controlled and stable H/O febrile seizure as a child (every year until he was 11 years old) no problems since. High cholesterol History of COVID-19 DX'D [facility] 04/28/21 COUGH-HOSPITALIZED X 1 DAY-RECOVERED AT HOME-RESOLVED Hyperosmolar hyperglycemic state (HHS) Hypertension Hypothyroidism Thrombosis of arteriovenous dialysis fistula (~02/15/20) Surgical History H/O detached retina repair History of esophagogastroduodenoscopy (EGD) S/P arteriovenous (AV) fistula creation left side, unable to use Family History Mother Diabetes Coronary heart disease Hypertension Father Coronary heart disease Hypertension Brother Coronary heart disease Kidney disease Uncle Colorectal cancer Grandmother Diabetes Aunt Diabetes Unknown Dyslipidemia Grandfather (Maternal) Diabetes Other Cancer No family history of adverse response to anesthesia Social History Smoking Status: Never smoker Second Hand Exposure: No; Do You Dip or Chew Tobacco: No; Hx Alcohol Use: No Hx Substance Use: No Preferred Language: Samoan Communication Ability: Effective Visual Impairment: No Limitations Hearing Ability: Normal Latex Spooler Required: No Beliefs That Will Affect Care: None marital status: Single Current Living Situation: Family Current Living Situation Comment: Brother 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" How many Children do You have: 0 Feels Safe at Home: Yes Dental Care, Regularly: No Physical Activity Frequency: Does not Exercise Seatbelt Use: always Sunscreen Use: No Assistive Devices: None Allergies Allergies Allergy/AdvReac Type Severity Reaction Status Date / Time lisinopril AdvReac Intermediate COUGH Verified 08/22/22 12:20 Home Meds Home Medications Medication Instructions Recorded Confirmed diphenhydramine HCl 25 mg tablet 25 mg PO DIRECTED PRN allergies 11/02/20 08/22/22 (Benadryl Allergy) cinacalcet 60 mg tablet (Sensipar) 60 mg PO HS 01/09/22 08/22/22 aspirin 81 mg tablet,delayed 81 mg PO QPM 01/18/22 08/22/22 release atorvastatin 80 mg tablet (Lipitor) 80 mg PO HS 01/18/22 08/22/22 levothyroxine 50 mcg tablet 50 mcg PO QAM 01/18/22 08/22/22 (Synthroid) calcium acetate(phosphat bind) 667 0 mg PO TID 08/22/22 08/22/22 mg capsule insulin aspart U-100 100 unit/mL 30 unit subcut TID 08/22/22 08/22/22 (3 mL) subcutaneous pen insulin detemir U-100 100 unit/mL 60 unit subcut HS 08/22/22 08/22/22 (3 mL) subcutaneous pen (Levemir FlexTouch U-100 Insulin) sucroferric oxyhydroxide 500 mg 0 mg PO TID 08/22/22 08/22/22 chewable tablet (Velphoro) Previous Rx's Medication Instructions Recorded OneTouch Delica Lancets 33 gauge #400 ea 10/16/19 (lancets) blood sugar diagnostic (OneTouch #400 ea 01/29/20 Verio test strips) blood-glucose meter (OneTouch #1 ea 01/29/20 Verio Flex Meter) acetone (urine) test (Ketostix #100 ea 02/18/20 strips) pen needle, diabetic 29 gauge x #400 ea 01/25/21 1/" (Comfort EZ Pen [place]) acetaminophen 300 mg-codeine 30 mg 1 tab PO BID PRN Pain #30 tabs 10/27/21 tablet blood-glucose transmitter (Dexcom #1 ea 12/13/21 G6 Transmitter device) carvedilol 12.5 mg tablet (Coreg) 12.5 mg PO BID #180 tabs 01/26/22 bumetanide 2 mg tablet See Rx Instructions .Route 04/25/22 .COMPLEX #270 tabs gabapentin 300 mg capsule 600 mg PO BID #360 caps 04/25/22 (Neurontin) blood-glucose meter,continuous #1 ea 05/25/22 (Dexcom G6 Bricklayer Supervisor) blood-glucose sensor (Dexcom G6 #3 ea 05/25/22 Sensor device) duloxetine 60 mg capsule,delayed 60 mg PO QAM #90 caps 05/25/22 release (Cymbalta) pantoprazole 40 mg tablet,delayed 40 mg PO QAM #90 tabs 05/25/22 release (Protonix) vit B,C-folic ac 800 mcg-zinc 12.5 1 tab PO DAILY #30 tabs 06/29/22 mg-selen-D3 2,000 unit-vit E tablet (RenaPlex-D) Results & Data (ED) Vital Signs Vital Signs - 24 hr 08/22/22 08:57 08/22/22 09:04 08/22/22 09:03 Pulse Rate 100 H Pulse Rate from SpO2 Sensor Respiratory Rate 17 Respiratory Effort / Characteristics Non-Labored Spontaneous Respiratory Depth Normal Normal Respiratory Pattern Regular Regular Blood Pressure 171/91 H Blood Pressure Mean 117 Pulse Oximetry 97 Oxygen Delivery Method Room Air Room Air Room Air Sepsis Recent Fever Within 48 Hours No Sepsis New/Unexplained Change in Mental Status No Sepsis Action Taken by Nursing No Action Required 08/22/22 09:10 08/22/22 09:08 08/22/22 09:08 Pulse Rate 99 H 99 H Pulse Rate from SpO2 Sensor 99 H Respiratory Rate 13 Respiratory Effort / Characteristics Respiratory Depth Respiratory Pattern Blood Pressure Blood Pressure Mean Pulse Oximetry 92 Oxygen Delivery Method Room Air Sepsis Recent Fever Within 48 Hours Sepsis New/Unexplained Change in Mental Status Sepsis Action Taken by Nursing 08/22/22 09:10 08/22/22 09:20 08/22/22 09:30 Pulse Rate 100 H 98 H 98 H Pulse Rate from SpO2 Sensor 100 H Respiratory Rate 23 13 17 Respiratory Effort / Characteristics Respiratory Depth Respiratory Pattern Blood Pressure Blood Pressure Mean Pulse Oximetry 92 Oxygen Delivery Method Sepsis Recent Fever Within 48 Hours Sepsis New/Unexplained Change in Mental Status Sepsis Action Taken by Nursing 08/22/22 09:40 08/22/22 09:50 08/22/22 10:00 Pulse Rate 102 H 99 H 102 H Pulse Rate from SpO2 Sensor 101 H 99 H 102 H Respiratory Rate 25 H 21 22 Respiratory Effort / Characteristics Respiratory Depth Respiratory Pattern Blood Pressure Blood Pressure Mean Pulse Oximetry 99 98 99 Oxygen Delivery Method Sepsis Recent Fever Within 48 Hours Sepsis New/Unexplained Change in Mental Status Sepsis Action Taken by Nursing 08/22/22 10:10 08/22/22 10:20 08/22/22 10:30 Pulse Rate 97 H 96 H 98 H Pulse Rate from SpO2 Sensor 98 H 96 H 98 H Respiratory Rate 17 17 17 Respiratory Effort / Characteristics Respiratory Depth Respiratory Pattern Blood Pressure Blood Pressure Mean Pulse Oximetry 99 99 100 Oxygen Delivery Method Sepsis Recent Fever Within 48 Hours Sepsis New/Unexplained Change in Mental Status Sepsis Action Taken by Nursing 08/22/22 10:40 08/22/22 10:50 08/22/22 11:00 Pulse Rate 99 H 99 H 99 H Pulse Rate from SpO2 Sensor 99 H 98 H Respiratory Rate 26 H 18 17 Respiratory Effort / Characteristics Respiratory Depth Respiratory Pattern Blood Pressure Blood Pressure Mean Pulse Oximetry 99 100 Oxygen Delivery Method Sepsis Recent Fever Within 48 Hours Sepsis New/Unexplained Change in Mental Status Sepsis Action Taken by Group Home Medications Current Medication List: was personally reviewed by me Laboratory Data Attestation: I reviewed the patient's lab results. 08/22/22 09:29 08/22/22 09:29 Lab Results 08/22/22 08/22/22 08/22/22 Range/Units 09:29 09:29 09:29 WBC 6.13 (4.8-10.8) K/ul RBC 2.41 L (4.70-6.10) M/uL Hgb 7.7 L (14.0-18.0) g/dl Hct 21.9 L (42.0-52.0) % MCV 90.9 (80.0-100.0) fL MCH 32.0 (25.0-34.0) pg MCHC 35.2 (32.0-36.0) g/dL RDW Std Deviation 46.2 (36.4-46.3) fL RDW Coeff of Yuki 14.0 (11.5-14.5) % Plt Count 150 (130-400) K/uL MPV 10.3 (9.4-12.4) fL Immature Gran % (Auto) 0.2 % Neut % (Auto) 78.7 % Lymph % (Auto) 11.4 % [place] % (Auto) 7.8 % Eos % (Auto) 1.6 % Baso % (Auto) 0.3 % Reticulocyte % (Auto) (0.5-2.0) % Neut # (Auto) 4.82 (1.40-6.50) K/uL Lymph # (Auto) 0.70 L (1.2-3.4) K/uL [place] # (Auto) 0.48 (0.11-0.59) K/uL Eos # (Auto) 0.10 (0-0.50) K/uL Baso # (Auto) 0.02 (0-0.2) K/uL Reticulocyte # (0.02-0.10) 10^6/uL Immature Gran # (Auto) 0.01 (0.01-0.20) K/uL Polychromasia 1+ PT 10.8 (9.0-12.0) Seconds INR 1.0 (0.9-1.1) APTT 26.8 (21.0-31.0) Seconds PTT Ratio 1.0 Sodium 137 (136-145) mmol/L Potassium 3.6 (3.5-5.1) mmol/L Chloride 91 L (98-107) mmol/L Carbon Dioxide 36 H (21-32) mmol/L Anion Gap 10 (3-11) BUN 24 H (6-23) mg/dl Creatinine 4.46 H (0.6-1.4) mg/dl Est Cr Clr Drug Dosing 28.2 ml/min Est GFR ( Amer) 17.8 ml/min Est GFR (Non-Af Amer) 15.4 ml/min BUN/Creatinine Ratio 5.4 L (10-20) Glucose 293 H (70-99(Fasting)) mg/dl Lactate (0.4-2.0) mmol/L Calcium 8.8 (8.6-10.3) mg/dl Phosphorus 3.0 (2.5-4.9) mg/dl Magnesium 1.8 (1.7-2.4) mg/dl Iron 41 (35-175) mcg/dl TIBC 230 L (250-450) mcg/dl Unsaturated IBC 189 (155-355) mcg/dl Transferrin % Sat 18 L (20-50) % Ferritin 1091.8 H (8-388) ng/ml Total Bilirubin 0.7 (0.2-1.0) mg/dl AST 14 (13-39) U/L ALT 13 (7-52) U/L Alkaline Phosphatase 132 H (34-104) U/L Troponin I High Sens 1639.5 H* (0-20) pg/ml Total Protein 7.5 (6.0-8.3) gm/dl Albumin 3.9 (3.4-5.0) gm/dl Globulin 3.6 (2.5-4.0) gm/dl Albumin/Globulin Ratio 1.1 (0.9-2) Vitamin B12 (180-914) pg/ml Folate (>5.38) ng/ml Adenovirus (PCR) (NotDetected) B. pertussis DNA (PCR) (NotDetected) B.parapertussis DNA PCR (NotDetected) C. pneumoniae DNA (PCR) (NotDetected) Coronavirus OC43 (PCR) (NotDetected) Coronavirus HKU1 (PCR) (NotDetected) Coronavirus 229E (PCR) (NotDetected) SARS-CoV-2 (PCR) (NotDetected) Coronavirus NL63 (PCR) (NotDetected) Human Metapneumovir PCR (NotDetected) Influenza Type A (PCR) (NotDetected) Influenza Type B (PCR) (NotDetected) M. pneumoniae (PCR) (NotDetected) Parainfluenza 1 (PCR) (NotDetected) Parainfluenza 2 (PCR) (NotDetected) Parainfluenza 3 (PCR) (NotDetected) Parainfluenza 4 (PCR) (NotDetected) RSV (PCR) (NotDetected) Entero/Rhino (PCR) (NotDetected) Crossmatch 08/22/22 08/22/22 08/22/22 Range/Units 09:29 09:29 09:29 WBC (4.8-10.8) K/ul RBC (4.70-6.10) M/uL Hgb (14.0-18.0) g/dl Hct (42.0-52.0) % MCV (80.0-100.0) fL MCH (25.0-34.0) pg MCHC (32.0-36.0) g/dL RDW Std Deviation (36.4-46.3) fL RDW Coeff of Yuki (11.5-14.5) % Plt Count (130-400) K/uL MPV (9.4-12.4) fL Immature Gran % (Auto) % Neut % (Auto) % Lymph % (Auto) % [place] % (Auto) % Eos % (Auto) % Baso % (Auto) % Reticulocyte % (Auto) 2.0 (0.5-2.0) % Neut # (Auto) (1.40-6.50) K/uL Lymph # (Auto) (1.2-3.4) K/uL [place] # (Auto) (0.11-0.59) K/uL Eos # (Auto) (0-0.50) K/uL Baso # (Auto) (0-0.2) K/uL Reticulocyte # 0.05 (0.02-0.10) 10^6/uL Immature Gran # (Auto) (0.01-0.20) K/uL Polychromasia PT (9.0-12.0) Seconds INR (0.9-1.1) APTT (21.0-31.0) Seconds PTT Ratio Sodium (136-145) mmol/L Potassium (3.5-5.1) mmol/L Chloride (98-107) mmol/L Carbon Dioxide (21-32) mmol/L Anion Gap (3-11) BUN (6-23) mg/dl Creatinine (0.6-1.4) mg/dl Est Cr Clr Drug Dosing ml/min Est GFR ( Amer) ml/min Est GFR (Non-Af Amer) ml/min BUN/Creatinine Ratio (10-20) Glucose (70-99(Fasting)) mg/dl Lactate 1.5 (0.4-2.0) mmol/L Calcium (8.6-10.3) mg/dl Phosphorus (2.5-4.9) mg/dl Magnesium (1.7-2.4) mg/dl Iron (35-175) mcg/dl TIBC (250-450) mcg/dl Unsaturated IBC (155-355) mcg/dl Transferrin % Sat (20-50) % Ferritin (8-388) ng/ml Total Bilirubin (0.2-1.0) mg/dl AST (13-39) U/L ALT (7-52) U/L Alkaline Phosphatase (34-104) U/L Troponin I High Sens (0-20) pg/ml Total Protein (6.0-8.3) gm/dl Albumin (3.4-5.0) gm/dl Globulin (2.5-4.0) gm/dl Albumin/Globulin Ratio (0.9-2) Vitamin B12 (180-914) pg/ml Folate (>5.38) ng/ml Adenovirus (PCR) Not Detected (NotDetected) B. pertussis DNA (PCR) Not Detected (NotDetected) B.parapertussis DNA PCR Not Detected (NotDetected) C. pneumoniae DNA (PCR) Not Detected (NotDetected) Coronavirus OC43 (PCR) Not Detected (NotDetected) Coronavirus HKU1 (PCR) Not Detected (NotDetected) Coronavirus 229E (PCR) Not Detected (NotDetected) SARS-CoV-2 (PCR) Not Detected (NotDetected) Coronavirus NL63 (PCR) Not Detected (NotDetected) Human Metapneumovir PCR Not Detected (NotDetected) Influenza Type A (PCR) Not Detected (NotDetected) Influenza Type B (PCR) Not Detected (NotDetected) M. pneumoniae (PCR) Not Detected (NotDetected) Parainfluenza 1 (PCR) Not Detected (NotDetected) Parainfluenza 2 (PCR) Not Detected (NotDetected) Parainfluenza 3 (PCR) Not Detected (NotDetected) Parainfluenza 4 (PCR) Not Detected (NotDetected) RSV (PCR) Not Detected (NotDetected) Entero/Rhino (PCR) Not Detected (NotDetected) Crossmatch 08/22/22 08/22/22 Range/Units 09:33 11:01 WBC (4.8-10.8) K/ul RBC (4.70-6.10) M/uL Hgb (14.0-18.0) g/dl Hct (42.0-52.0) % MCV (80.0-100.0) fL MCH (25.0-34.0) pg MCHC (32.0-36.0) g/dL RDW Std Deviation (36.4-46.3) fL RDW Coeff of Yuki (11.5-14.5) % Plt Count (130-400) K/uL MPV (9.4-12.4) fL Immature Gran % (Auto) % Neut % (Auto) % Lymph % (Auto) % [place] % (Auto) % Eos % (Auto) % Baso % (Auto) % Reticulocyte % (Auto) (0.5-2.0) % Neut # (Auto) (1.40-6.50) K/uL Lymph # (Auto) (1.2-3.4) K/uL [place] # (Auto) (0.11-0.59) K/uL Eos # (Auto) (0-0.50) K/uL Baso # (Auto) (0-0.2) K/uL Reticulocyte # (0.02-0.10) 10^6/uL Immature Gran # (Auto) (0.01-0.20) K/uL Polychromasia PT (9.0-12.0) Seconds INR (0.9-1.1) APTT (21.0-31.0) Seconds PTT Ratio Sodium (136-145) mmol/L Potassium (3.5-5.1) mmol/L Chloride (98-107) mmol/L Carbon Dioxide (21-32) mmol/L Anion Gap (3-11) BUN (6-23) mg/dl Creatinine (0.6-1.4) mg/dl Est Cr Clr Drug Dosing ml/min Est GFR ( Amer) ml/min Est GFR (Non-Af Amer) ml/min BUN/Creatinine Ratio (10-20) Glucose (70-99(Fasting)) mg/dl Lactate (0.4-2.0) mmol/L Calcium (8.6-10.3) mg/dl Phosphorus (2.5-4.9) mg/dl Magnesium (1.7-2.4) mg/dl Iron (35-175) mcg/dl TIBC (250-450) mcg/dl Unsaturated IBC (155-355) mcg/dl Transferrin % Sat (20-50) % Ferritin (8-388) ng/ml Total Bilirubin (0.2-1.0) mg/dl AST (13-39) U/L ALT (7-52) U/L Alkaline Phosphatase (34-104) U/L Troponin I High Sens (0-20) pg/ml Total Protein (6.0-8.3) gm/dl Albumin (3.4-5.0) gm/dl Globulin (2.5-4.0) gm/dl Albumin/Globulin Ratio (0.9-2) Vitamin B12 401 (180-914) pg/ml Folate 10.71 (>5.38) ng/ml Adenovirus (PCR) (NotDetected) B. pertussis DNA (PCR) (NotDetected) B.parapertussis DNA PCR (NotDetected) C. pneumoniae DNA (PCR) (NotDetected) Coronavirus OC43 (PCR) (NotDetected) Coronavirus HKU1 (PCR) (NotDetected) Coronavirus 229E (PCR) (NotDetected) SARS-CoV-2 (PCR) (NotDetected) Coronavirus NL63 (PCR) (NotDetected) Human Metapneumovir PCR (NotDetected) Influenza Type A (PCR) (NotDetected) Influenza Type B (PCR) (NotDetected) M. pneumoniae (PCR) (NotDetected) Parainfluenza 1 (PCR) (NotDetected) Parainfluenza 2 (PCR) (NotDetected) Parainfluenza 3 (PCR) (NotDetected) Parainfluenza 4 (PCR) (NotDetected) RSV (PCR) (NotDetected) Entero/Rhino (PCR) (NotDetected) Crossmatch See Detail Administered Medications Discontinued Medications Carvedilol (Carvedilol 6.25 Mg Tab) 6.25 mg PO ONE STA Stop: 08/22/22 12:11 Last Admin: 08/22/22 13:03 Dose: 6.25 mg Documented By: AM Imaging Data Radiologist's Impression: Chest X-Ray 08/22/22 09:08 SINGLE VIEW CHEST CLINICAL HISTORY: Dyspnea FINDINGS: An AP, portable, upright chest radiograph is compared to study dated 10/15/2021. Correlation is made with chest CT dated 06/04/2017. The heart is enlarged. There is pulmonary vascular congestion. There is no airspace consolidation or large pleural effusion. Dependent atelectasis is noted at the lung bases. No pneumothorax is seen. The bony thorax is grossly intact. IMPRESSION: Cardiomegaly with evidence of congestive failure. ACT 112: Negative or not required by law. Electronically signed by: Aaron Mcguire M.D. 08/22/2022 10:06 AM Discharge Plan Visit Data Chief Complaint: Shortness of Breath/Dyspnea Stated Complaint: SOB ED Provider: Aaron Bray Discharge Problem: SOB (shortness of breath), Anemia, CHF (congestive heart failure), Renal failure, Elevated troponin Patient Disposition: Admitted As Inpatient Condition: Fair Discharge Instructions Interventions: ED Discharge Assessment Last Done: 08/22/22 14:04
[2022-08-22 09:50] LABS: Basophils # (auto) 0.02 K/uL (0-0.2); Basophils % (auto) 0.3 %; Eosinophils % (auto) 1.6 %; Hematocrit (blood only) 21.9 % (42.0-52.0); Hemoglobin 7.7 g/dl (14.0-18.0); Immature Granulocytes # (auto) 0.01 K/uL (0.01-0.20); Immature Granulocytes % (auto) 0.2 %; Lymphocytes % (auto) 11.4 %; Mean Corpuscular Hgb Conc 35.2 g/dL (32.0-36.0); Mean Corpuscular Volume 90.9 fL (80.0-100.0); Mean Platelet Volume 10.3 fL (9.4-12.4); Monocytes # (auto) 0.48 K/uL (0.11-0.59); Monocytes % (auto) 7.8 %; Neutrophils # (auto) 4.82 K/uL (1.40-6.50); Neutrophils % (auto) 78.7 %; Platelet Count 150 K/uL (130-400); RDW Standard Deviation 46.2 fL (36.4-46.3); Red Blood Count 2.41 M/uL (4.70-6.10); White Blood Count 6.13 K/ul (4.8-10.8)
[2022-08-22 10:06] LABS: Albumin Globulin Ratio 1.1 (0.9-2); Albumin Level 3.9 gm/dl (3.4-5.0); BUN Creatinine Ratio 5.4 (10-20); Bilirubin,Total 0.7 mg/dl (0.2-1.0); Calcium 8.8 mg/dl (8.6-10.3); Creatinine Clr Calc Pharmacy 28.2 ml/min; Est GFR (African American) 17.8 ml/min; Est GFR (Non-African American) 15.4 ml/min; Globulin 3.6 gm/dl (2.5-4.0); Magnesium 1.8 mg/dl (1.7-2.4); Potassium 3.6 mmol/L (3.5-5.1); Total Protein 7.5 gm/dl (6.0-8.3)
--- NOTE | 2022-08-22 10:07 | XRay Report ---
SINGLE VIEW CHEST CLINICAL HISTORY: Dyspnea FINDINGS: An AP, portable, upright chest radiograph is compared to study dated 10/15/2021. Correlation is made with chest CT dated 06/04/2017. The heart is enlarged. There is pulmonary vascular congestion . There is no airspace consolidation or large pleural effusion. Dependent atelectasis is noted at the lung bases. No pneumothorax is seen. The bony thorax is grossly intact. IMPRESSION: Cardiomegaly with evidence of congestive failure. ACT 112: Negative or not required by law. Electronically signed by: Aaron Mcguire M.D. 08/22/2022 10:06 AM
[2022-08-22 10:13] LABS: Polychromasia 1+
[2022-08-22 10:17] LABS: Partial Thromboplastin Time 26.8 Seconds (21.0-31.0); Prothrombin Time 10.8 Seconds (9.0-12.0); Troponin I High Sensitivity 1639.5 pg/ml (0-20)
[2022-08-22] MEDS ORDERED: SODIUM CHLORIDE 0.9% 250 ML IV PRN (10:59)
[2022-08-22 11:02] LABS: Adenovirus PCR Not Detected (NotDetected); Bordetella parapertussis PCR Not Detected (NotDetected); Bordetella pertussis PCR Not Detected (NotDetected); Chlamydia pneumoniae PCR Not Detected (NotDetected); Coronavirus 229E PCR Not Detected (NotDetected); Coronavirus CoV-2 (COVID19)PCR Not Detected (NotDetected); Coronavirus HKU1 PCR Not Detected (NotDetected); Coronavirus NL63 PCR Not Detected (NotDetected); Coronavirus OC43PCR Not Detected (NotDetected); Human Metapneumovirus PCR Not Detected (NotDetected); Influenza A PCR Not Detected (NotDetected); Influenza B PCR Not Detected (NotDetected); Mycoplasma pneumoniae PCR Not Detected (NotDetected); Parainfluenza Virus 1 PCR Not Detected (NotDetected); Parainfluenza Virus 2 PCR Not Detected (NotDetected); Parainfluenza Virus 3 PCR Not Detected (NotDetected); Parainfluenza Virus 4 PCR Not Detected (NotDetected); Respiratory Syncytial VirusPCR Not Detected (NotDetected); Rhinovirus/Enterovirus PCR Not Detected (NotDetected)
--- NOTE | 2022-08-22 11:12 | History & Physical Report ---
Date of Service August 22, 2022 Assessment & Plan (1) Shortness of breath: Plan: Suspect multifactorial with main problem of his post nasal drip associated with seasonal allergies. Saline nasal spray BID, Flonase BID, fexofenadine 180mg PO daily. Possible underlying seasonal reactive airway disease although not significantly bronchospastic on exam his night time cough may be his only symptoms of this - duonebs QID + PRN for cough Dextromethorphan PRN for cough suppressant Possible anemia contributing. Will defer blood transfusion unless Hgb < 7 and otherwise defer management to nephrology. Possible pulmonary edema contributing - fluid management deferred to nephrology with dialysis Given lack of WBC, fever or significant consolidation on CXR no pneumonia suspected on admission (2) Post-nasal drip: Plan: Saline nasal spray BID Flonase BID Fexofenadine for seasonal allergy component (3) Elevated troponin: Plan: Suspect due to ESRD and recently stopped his carvedilol. Do not suspect ACS given lack of chest pain. Possible atrial fibrillation noted by EMS but no objective evidence of this. Continue to monitor on telemetry TTE (4) Anemia: Plan: No acute GI bleed suspected Transfuse if Hgb < 7 Otherwise treatment deferred to nephrology (5) Type 1 diabetes: Plan: HbA1C not accurate in setting of ESRD Will tailor his insulin regimen based off his baseline basal dosing of Levemir 50 units HS Consult pharmacy for ongoing glycemic control (6) ESRD (end stage renal disease): Plan: Consult nephrology for ongoing fluid management and dialysis (7) Hypothyroidism: Plan: TSH not performed since 2020, Will repeat TSH with AM labs Continue levothyroxine 50 mcg PO daily (8) GERD (gastroesophageal reflux disease): Plan: Continue pantoprazole 40mg PO daily (9) Hypertension: Plan: Reduce dose of carvedilol to 6.25mg PO BID as he was not taking this at home due to orthostasis Continue Bumex (10) Depression: Plan: Continue duloxetine Plan VTE Prophylaxis - deferred pending stability in Hgb Diet - dialysis renal Disposition - observation to med/tele Admission and Anticipated Discharge Date Admission Date: August 22, 2022 History of Present Illness Chief Complaint: Shortness of breath Primary Care Provider: Maki Peterson MD Ventura Snell is a 41 year old male with T1DM with ESRB on dialysis who presents from dialysis due to cough and shortness of breath. He reports ongoing cough for the last three weeks. He had been putting it up to allergies but not taking his Benadryl as it makes him too sedated. He has noted nasal congestion with post nasal drip. Worse during the night time. He went to urgent care and was advised to take Claritin which he started yesterday and felt it initially helped although he had severe coughing episodes overnight and planned to come to the ER today after dialysis regardless for a medical evaluation. Mainly a dry cough but reports some productive sputum today. At dialysis he was having increasing shortness of breath with O2 sats 83% on room air therefore his dialysis session was but short and he missed 40 minutes of treatment. He reports normally having seasonal allergies which is worse at this time of year. He denies any chest pain, fever or chills. Of note he has not been taking carvedilol due to his BP being too low for the last 5-6 days ago. Since stopped it has been feeling less presyncopal. EMS noted concern for atrial fibrillation initially when placed on the monitor although no EKG was taken at this time and strip not available on admission Allergies Allergy/AdvReac Type Severity Reaction Status Date / Time lisinopril AdvReac Intermediate COUGH Verified 08/22/22 12:20 Home Medications Medication Instructions Recorded Confirmed Type Michaeluch Delica Lancets 33 gauge #400 ea 10/16/19 08/22/22 Rx (lancets) blood sugar diagnostic (OneTouch #400 ea 01/29/20 08/22/22 Rx Verio test strips) blood-glucose meter (OneTouch #1 ea 01/29/20 08/22/22 Rx Verio Flex Meter) acetone (urine) test (Ketostix #100 ea 02/18/20 08/22/22 Rx strips) diphenhydramine HCl 25 mg tablet 25 mg PO DIRECTED PRN allergies 11/02/20 08/22/22 History (Benadryl Allergy) pen needle, diabetic 29 gauge x #400 ea 01/25/21 08/22/22 Rx 1/2" (Comfort EZ Pen Blanchard) acetaminophen 300 mg-codeine 30 mg 1 tab PO BID PRN Pain #30 tabs 10/27/21 08/22/22 Rx tablet blood-glucose transmitter (Dexcom #1 ea 12/13/21 08/22/22 Rx G6 Transmitter device) cinacalcet 60 mg tablet (Sensipar) 60 mg PO HS 01/09/22 08/22/22 History aspirin 81 mg tablet,delayed 81 mg PO QPM 01/18/22 08/22/22 History release atorvastatin 80 mg tablet (Lipitor) 80 mg PO HS 01/18/22 08/22/22 History levothyroxine 50 mcg tablet 50 mcg PO QAM 01/18/22 08/22/22 History (Synthroid) carvedilol 12.5 mg tablet (Coreg) 12.5 mg PO BID #180 tabs 01/26/22 08/22/22 Rx bumetanide 2 mg tablet See Rx Instructions .Route 04/25/22 08/22/22 Rx .COMPLEX #270 tabs gabapentin 300 mg capsule 600 mg PO BID #360 caps 04/25/22 08/22/22 Rx (Neurontin) blood-glucose meter,continuous #1 ea 05/25/22 08/22/22 Rx (Dexcom G6 Author Agent) blood-glucose sensor (Dexcom G6 #3 ea 05/25/22 08/22/22 Rx Sensor device) duloxetine 60 mg capsule,delayed 60 mg PO QAM #90 caps 05/25/22 08/22/22 Rx release (Cymbalta) pantoprazole 40 mg tablet,delayed 40 mg PO QAM #90 tabs 05/25/22 08/22/22 Rx release (Protonix) vit B,C-folic ac 800 mcg-zinc 12.5 1 tab PO DAILY #30 tabs 06/29/22 08/22/22 Rx mg-selen-D3 2,000 unit-vit E tablet (RenaPlex-D) calcium acetate(phosphat bind) 667 0 mg PO TID 08/22/22 08/22/22 History mg capsule insulin aspart U-100 100 unit/mL 30 unit subcut TID 08/22/22 08/22/22 History (3 mL) subcutaneous pen insulin detemir U-100 100 unit/mL 60 unit subcut HS 08/22/22 08/22/22 History (3 mL) subcutaneous pen (Levemir FlexTouch U-100 Insulin) sucroferric oxyhydroxide 500 mg 0 mg PO TID 08/22/22 08/22/22 History chewable tablet (Velphoro) Past Med/Surg History Medical History Chronic venous insufficiency Depression Diabetic peripheral neuropathy associated with type 1 diabetes mellitus Diabetic retinopathy Erectile dysfunction ESRD (end stage renal disease) requiring hemodialysis. MWF at [facility]. GERD (gastroesophageal reflux disease) Well controlled and stable H/O febrile seizure as a child (every year until he was 11 years old) no problems since. High cholesterol History of COVID-[address] [facility] 04/28/21 COUGH-HOSPITALIZED X 1 DAY-RECOVERED AT HOME-RESOLVED Hyperosmolar hyperglycemic state (HHS) Hypertension Hypothyroidism Thrombosis of arteriovenous dialysis fistula (~02/15/20) Surgical History H/O detached retina repair History of esophagogastroduodenoscopy (EGD) S/P arteriovenous (AV) fistula creation left side, unable to use Family History Mother Diabetes Coronary heart disease Hypertension Father Coronary heart disease Hypertension Brother Coronary heart disease Kidney disease Uncle Colorectal cancer Grandmother Diabetes Aunt Diabetes Unknown Dyslipidemia Grandfather (Maternal) Diabetes Other Cancer No family history of adverse response to anesthesia Social History Smoking Status: Never smoker Second Hand Exposure: No; Do You Dip or Chew Tobacco: No; Hx Alcohol Use: Yes Alcohol type: beer Hx Substance Use: No Preferred Language: Citizen Of [place] Communication Ability: Effective Visual Impairment: No Limitations 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 Beliefs That Will Affect Care: None marital status: Single Current Living Situation: Alone Current Living Situation Comment: Brother 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" How many Children do You have: 0 Feels Safe at Home: Yes Safety Concerns: Feels Safe At This Time Dental Care, Regularly: No Physical Activity Frequency: Does not Exercise Seatbelt Use: always Sunscreen Use: No Assistive Devices: Cane and Walker Review of Systems Review of Systems: All systems reviewed & are unremarkable except as noted in HPI & below Physical Exam Constitutional: WD/WN, vitals as above Eyes: + anicteric sclerae; normal pupil size ENMT: external ear and nose normal, oropharynx normal Neck: trachea midline, no thyromegaly Respiratory: normal respiratory effort; no respiratory distress Auscultation: lungs clear to auscultation bilaterally; breath sounds present, no diminished lung sounds, no crackles, no rales, no rhonchi and no wheezes Cardiovascular: Rate/Rhythm: regular rate and regular rhythm Heart Sounds: no murmur Extremities: normal capillary refill and + pedal edema; no calf tenderness Gastrointestinal (Abdomen): normal bowel sounds, soft, nontender, no hepatosplenomegaly Musculoskeletal: no cyanosis or clubbing, extremities motor strength 5/5 Skin: no rashes, warm and dry Neurologic: moves all extremities and awake; not confused Psychiatric: A+Ox3, euthymic affect Results & Data Results & Data Vital Signs (Past 12 Hours) Vital Signs Pulse Resp BP Pulse Ox O2 Del Method 08/22/22 09:08 Room Air 08/22/22 09:10 99 H 08/22/22 09:03 Room Air 08/22/22 09:04 Room Air 08/22/22 08:57 100 H 17 171/91 H 97 Room Air Laboratory Results Abnormal lab results 08/22/22 08/22/22 08/22/22 Range/Units 09:29 09:29 11:01 RBC 2.41 L (4.70-6.10) M/uL Hgb 7.7 L (14.0-18.0) g/dl Hct 21.9 L (42.0-52.0) % Lymph # (Auto) 0.70 L (1.2-3.4) K/uL Chloride 91 L (98-107) mmol/L Carbon Dioxide 36 H (21-32) mmol/L BUN 24 H (6-23) mg/dl Creatinine 4.46 H (0.6-1.4) mg/dl BUN/Creatinine Ratio 5.4 L (10-20) Glucose 293 H (70-99(Fasting)) mg/dl Alkaline Phosphatase 132 H (34-104) U/L Troponin I High Sens 1639.5 H* (0-20) pg/ml Crossmatch See Detail Diagnostic Findings SINGLE VIEW CHEST CLINICAL HISTORY: Dyspnea FINDINGS: An AP, portable, upright chest radiograph is compared to study dated 10/15/2021. Correlation is made with chest CT dated 06/04/2017. The heart is enlarged. There is pulmonary vascular congestion. There is no airspace consolidation or large pleural effusion. Dependent atelectasis is noted at the lung bases. No pneumothorax is seen. The bony thorax is grossly intact. IMPRESSION: Cardiomegaly with evidence of congestive failure. Medications Administered ER Medications Given: None ECG Rate (beats per minute): 102 Rhythm: sinus tachycardia Findings: + nonspecific-ST abn (Lateral) Comparison ECG Date: from (October 17, 2021) Change: the following changes noted (Non -specific ST segment changes in Lateral leads) Code Status & VTE Plan Code Status Full VTE Prophylaxis Plan VTE Prophylaxis will be ordered: Yes PG Care Time/CCT Total # of Minutes Spent Total Time Spent with Patient: Total time spent is greater than 50% in coordination of care (as documented) at patient's floor/unit and/or counseling patient: Coding Level of Care Code 49850 INT INP/OBS CARE 3/75MIN Diagnoses Shortness of breath R06.02 Post-nasal drip R09.82 Elevated troponin R77.8 Anemia D64.9 Type 1 diabetes E10.22; N18.6; Z99.2 Chronic kidney disease stage: on chronic dialysis Diabetes mellitus complication detail: with chronic kidney disease Diabetes mellitus complication status: with kidney complications ESRD (end stage renal disease) N18.6 Hypothyroidism E03.9 Hypothyroidism type: unspecified GERD (gastroesophageal reflux disease) K21.9 Esophagitis presence: esophagitis presence not specified Hypertension I10 Hypertension type: unspecified Depression F33.9 Active/Remission status: remission status unspecified Depression Type: major depressive disorder Major depression recurrence: recurrent (5) Type 1 diabetes Chronic kidney disease stage: on chronic dialysis Diabetes mellitus complication detail: with chronic kidney disease Diabetes mellitus complication status: with kidney complications Qualified Code(s): E10.22 - Type 1 diabetes mellitus with diabetic chronic kidney disease; N18.6 - End stage renal disease; Z99.2 - Dependence on renal dialysis (7) Hypothyroidism Hypothyroidism type: unspecified Qualified Code(s): E03.9 - Hypothyroidism, unspecified (8) GERD (gastroesophageal reflux disease) Esophagitis presence: esophagitis presence not specified Qualified Code(s): K21.9 - Gastro-esophageal reflux disease without esophagitis (9) Hypertension Hypertension type: unspecified Qualified Code(s): I10 - Essential (primary) hypertension (10) Depression Active/Remission status: remission status unspecified Depression Type: major depressive disorder Major depression recurrence: recurrent Qualified Code(s): F33.9 - Major depressive disorder, recurrent, unspecified
[2022-08-22] MEDS ORDERED: GLUCOSE 10 TAB/TUBE PO PRN (11:14)
[2022-08-22] MEDS ORDERED: DEXTROSE 50% 50 ML SYRINGE IV PRN (11:14)
[2022-08-22] MEDS ORDERED: CARBOHYDRATES FOR HYPOGLYCEMIA PO PRN (11:14)
[2022-08-22] MEDS ORDERED: GLUCAGON FOR INJ 1 MG VIAL SQ PRN (11:14)
[2022-08-22] MEDS ORDERED: GLUCOSE 40% GEL 15 GM TUBE PO PRN (11:14)
[2022-08-22] MEDS ORDERED: carvediloL 6.25 MG TAB PO STA (12:10)
[2022-08-22 12:13] LABS: Ferritin 1091.8 ng/ml (8-388)
[2022-08-22 12:39] LABS: Reticulocytes # 0.05 10^6/uL (0.02-0.10)
--- NOTE | 2022-08-22 14:01 | Electrocardiogram Report ---
Test Reason : Blood Pressure : / mmHG Vent. Rate : 102 BPM Atrial Rate : 102 BPM P-R Int : 138 ms QRS Dur : 088 ms QT Int : 366 ms P-R-T Axes : 037 006 093 degrees QTc Int : 477 ms Sinus tachycardia Left ventricular hypertrophy with repolarization abnormality ( R in aVL ) Abnormal ECG When compared with ECG of 17-OCT-2021 11:12, Non-specific change in ST segment in Lateral leads Confirmed by Pasquale Zhang ([id number]) on 08/22/2022 2:01:17 PM Referred By: REFERRED SELF Confirmed By:Pasquale Zhang
[2022-08-22] MEDS ORDERED: PHARMACY GLYCEMIC MGMT CONSULT PRN (14:02)
[2022-08-22] MEDS ORDERED: ACETAMINOPHEN 325 MG TAB PO PRN (14:02)
[2022-08-22] MEDS ORDERED: DEXTROMETHORPHAN POLYMR COMPLX 30 MG/5 ML UDP PO PRN (14:02)
[2022-08-22] MEDS: INSULIN ASPART PER UNIT CHARGE SC SCH ×4 (14:33→23:58)
--- NOTE | 2022-08-22 14:39 | Pharmacy Report ---
Pharmacy Glycemic Short Note 2 - Date of Service August 22, 2022 - Glycemic Short BSG Results (Last 24 hours): 08/22/22 08/22/22 09:29 13:52 Glucose 293 H POC Glucose 302 H* OUTPATIENT ANTIDIABETIC REGIMEN: * Levemir 60 units SQ HS * Novolog 30 units (?) TID with meals ASSESSMENT: * 41 y/o M admitted for worsening cough and SOB. Patient is a Type 1 diabetic managed at home on basal and bolus insulin. He is known to pharmacy glycemic service from past admissions. * HbA1c is not known. However, this result is likely somewhat unreliable in ESRD patients d/t interactions between the A1c analyzing technique and high levels of urea in ESRD, reduced RBC life span, iron deficiency anemia, and EPO administration. HbA1c > 7.5% in ESRD patient may overestimate the extent of hyperglycemia in ESRD patients. * BSG this AM was 293 mg/dl, and 302 mg/dl pre-lunch. * Will utilize Lantus insulin during admission (conversion between Levemir and Lantus is 1:1). Lantus 50 units (16% reduced from home dose) ordered for HS. Will re-assess dosing tomorrow. * Novolog parameters are loose but will tighten this evening if BSG doesn't trend down. Overnight checks added. PLAN FOR INPATIENT GLYCEMIC CONTROL: * Basal insulin * Lantus 60 units SQ HS * Bolus insulin * NovoLog per scale ACHS or Q6hrs while NPO and 00,04 * Goal Range: Low 110 mg/dL - High 140 mg/dL * Correction Factor: 15 mg/dL/unit * Nutritional / Prandial insulin per carb ratio of 1 unit per 5 grams CHO consumed
[2022-08-22] MEDS: ALBUT/IPRATROP 3MG/0.5MG NEB 3 ML VIAL NEB SCH ×2 (15:08→19:22)
[2022-08-22] MEDS: FEXOFENADINE HCL 180 MG TAB PO SCH (17:15)
[2022-08-22] MEDS: BUMETANIDE 1 MG TAB PO SCH (17:31)
[2022-08-22] MEDS: CINACALCET HCL 30 MG TAB PO SCH (17:32)
[2022-08-22] MEDS: CALCIUM ACETATE 667 MG CAP/TAB PO SCH (17:32)
[2022-08-22] MEDS: FLUTICASONE PROPIONATE NA SPR 16 GM BTL SCH (20:47)
[2022-08-22] MEDS: GABAPENTIN 300 MG CAP PO SCH (20:49)
[2022-08-22] MEDS: carvediloL 6.25 MG TAB PO SCH (20:49)
[2022-08-22] MEDS: ASPIRIN 81 MG ECTAB PO SCH (20:50)
[2022-08-22] MEDS: SODIUM CHLORIDE 0.65% NA SOLN 45 ML (OCEAN) NAE SCH (20:50)
[2022-08-22] MEDS: ATORVASTATIN 40 MG TAB PO SCH (20:50)
[2022-08-22] MEDS ORDERED: LANTUS PER UNIT CHARGE SC SCH (21:00)
[2022-08-23] MEDS: INSULIN ASPART PER UNIT CHARGE SC SCH ×5 (04:16→21:03)
[2022-08-23] MEDS: LEVOTHYROXINE SODIUM 50 MCG TABLET PO SCH (05:35)
[2022-08-23] MEDS: ALBUT/IPRATROP 3MG/0.5MG NEB 3 ML VIAL NEB SCH ×2 (07:01→10:56)
[2022-08-23] MEDS ORDERED: LANTUS PER UNIT CHARGE SC SCH (07:30)
[2022-08-23] MEDS: FEXOFENADINE HCL 180 MG TAB PO SCH (08:29)
[2022-08-23] MEDS: DULoxetine HCL 60 MG CAP PO SCH (08:29)
[2022-08-23] MEDS: BUMETANIDE 1 MG TAB PO SCH ×2 (08:30→17:43)
[2022-08-23] MEDS: carvediloL 6.25 MG TAB PO SCH ×2 (08:30→20:52)
[2022-08-23] MEDS: CALCIUM ACETATE 667 MG CAP/TAB PO SCH ×3 (08:30→17:43)
[2022-08-23] MEDS: PANTOprazole 40 MG TAB PO SCH (08:30)
[2022-08-23] MEDS: GABAPENTIN 300 MG CAP PO SCH ×2 (08:31→20:53)
[2022-08-23] MEDS: FLUTICASONE PROPIONATE NA SPR 16 GM BTL SCH ×2 (08:31→20:51)
[2022-08-23] MEDS: SODIUM CHLORIDE 0.65% NA SOLN 45 ML (OCEAN) NAE SCH ×2 (08:35→20:52)
[2022-08-23 08:44] LABS: BUN Creatinine Ratio 5.8 (10-20); Calcium 8.6 mg/dl (8.6-10.3); Creatinine Clr Calc Pharmacy 18.1 ml/min; Est GFR (African American) 10.4 ml/min; Potassium 4.1 mmol/L (3.5-5.1)
[2022-08-23 08:46] LABS: Hematocrit (blood only) 20.7 % (42.0-52.0); Mean Corpuscular Hemoglobin 31.3 pg (25.0-34.0); Mean Corpuscular Hgb Conc 33.8 g/dL (32.0-36.0); Mean Corpuscular Volume 92.4 fL (80.0-100.0); Mean Platelet Volume 10.4 fL (9.4-12.4); Platelet Count 158 K/uL (130-400); RDW Coefficient of Variation 14.3 % (11.5-14.5); RDW Standard Deviation 47.7 fL (36.4-46.3); Red Blood Count 2.24 M/uL (4.70-6.10); White Blood Count 6.32 K/ul (4.8-10.8)
[2022-08-23 08:47] LABS: Basophils # (auto) 0.02 K/uL (0-0.2); Basophils % (auto) 0.3 %; Eosinophils # (auto) 0.15 K/uL (0-0.50); Eosinophils % (auto) 2.4 %; Immature Granulocytes # (auto) 0.02 K/uL (0.01-0.20); Immature Granulocytes % (auto) 0.3 %; Lymphocytes # (auto) 1.13 K/uL (1.2-3.4); Lymphocytes % (auto) 17.9 %; Monocytes # (auto) 0.58 K/uL (0.11-0.59); Monocytes % (auto) 9.2 %; Neutrophils # (auto) 4.42 K/uL (1.40-6.50); Neutrophils % (auto) 69.9 %; Polychromasia 1+
[2022-08-23] MEDS ORDERED: EPOETIN ALFA 10,000 UNITS/ML VIAL IV ONE (09:29)
[2022-08-23] MEDS ORDERED: SODIUM CHLORIDE 0.9% 1000ML 1,000 ML IV PRN (09:29)
[2022-08-23] MEDS ORDERED: SODIUM CHLORIDE 0.9% 250 ML IV PRN (09:36)
[2022-08-23 10:32] LABS: Iron 39 mcg/dl (35-175); Unsaturated Iron Binding Cap 151 mcg/dl (155-355)
[2022-08-23] MEDS ORDERED: INSULIN HUMAN REGULAR PER UNIT 10 UNITS in SYRINGE 9.9 ML IV ONE (11:45)
--- NOTE | 2022-08-23 12:44 | Pharmacy Report ---
Pharmacy Glycemic Short Note 2 - Date of Service August 23, 2022 - Glycemic Short BSG Results (Last 24 hours): 08/22/22 08/22/22 08/22/22 13:52 16:45 16:48 Glucose POC Glucose 302 H* 336 H* 353 H* 08/22/22 08/22/22 08/22/22 20:22 23:51 23:53 Glucose POC Glucose 169 H 58 L* 57 L* 08/23/22 08/23/22 08/23/22 00:19 04:08 07:16 Glucose POC Glucose 81 196 H 228 H 08/23/22 08/23/22 08/23/22 07:33 11:22 11:22 Glucose 203 H POC Glucose 321 H* 323 H* OUTPATIENT ANTIDIABETIC REGIMEN: * Levemir 60 units SQ HS * Novolog 30 units (?) TID with meals ASSESSMENT: 08/23/22: * BSGs labile yesterday, ranging 58-353 mg/dL * Received 66 units of bolus insulin only, refused 50 units of Lantus at bedtime * Fasting BSG unsurprisingly elevated at 228 mg/dL this morning due to missed basal last evening * Will give Lantus this morning, expect BSGs to be somewhat elevated today * Lunchtime BSG of 323 mg/dL, planned on IV insulin bolus, but patient was about to depart for HD - will hold off on IV at this time and reassess at dinner 08/22/22: * 41 y/o M admitted for worsening cough and SOB. Patient is a Type 1 diabetic managed at home on basal and bolus insulin. He is known to pharmacy glycemic service from past admissions. * HbA1c is not known. However, this result is likely somewhat unreliable in ESRD patients d/t interactions between the A1c analyzing technique and high levels of urea in ESRD, reduced RBC life span, iron deficiency anemia, and EPO administration. HbA1c > 7.5% in ESRD patient may overestimate the extent of hyperglycemia in ESRD patients. * BSG this AM was 293 mg/dl, and 302 mg/dl pre-lunch. * Will utilize Lantus insulin during admission (conversion between Levemir and Lantus is 1:1). Lantus 50 units (16% reduced from home dose) ordered for HS. Will re-assess dosing tomorrow. * Novolog parameters are loose but will tighten this evening if BSG doesn't trend down. Overnight checks added. PLAN FOR INPATIENT GLYCEMIC CONTROL: * Basal insulin * Lantus 55 units SQ qAM * Bolus insulin * NovoLog per scale ACHS or Q6hrs while NPO and 00,04 * Goal Range: Low 110 mg/dL - High 140 mg/dL * Correction Factor: 10 mg/dL/unit * Nutritional / Prandial insulin per carb ratio of 1 unit per 3 grams CHO consumed
[2022-08-23] MEDS ORDERED: ALBUT/IPRATROP 3MG/0.5MG NEB 3 ML VIAL NEB PRN (12:58)
--- NOTE | 2022-08-23 13:27 | Nephrology Consultation ---
Date of Consultation August 23, 2022 Assessment & Plan (1) ESRD (end stage renal disease): * HD today for UF and blood transfusion * Orders placed in EMR and HD RN notified * Will obtain CXR in am to follow up on CHF (2) Anemia: * Will transfuse 2 units PRBC on HD today * Will check iron stores, FOBT (3) Hypertension: * Continue Carvedilol, Bumex (4) Elevated troponin: * Trend troponin * Recommend echocardiogram and Cardiology consultation. Patient is high risk for ASCVD due to IDDM, ESRD History of Present Illness Reason for Consultation: ESKD on HD Attending Physician: Neymar Cartwright MD History of Present Illness Mr. Snell is a 41 year old white male who is seen at the request of Dr. Oconnell to provide HD. Medical records in the EMR were reviewed this evening and are summarized as follows: Mr. Snell has ESKD due to IDDM. He was started on IHD 03/10 and dialyzes via [employer] [facility]. He currently dialyzes at [facility] (4 hr, 2K 2.5Ca HCO3 38 Na 138, Revaclear 300 dialyzer, Heparin load 3000/hourly 1100, EDW 125 kg). His medical history is significant for IDDM (Dx 10 yoa, + retinopathy & neuropathy), obesity (BMI 44), hypothyroidism, anemia, depression/anxiety. Mr. Snell completed 3.5 hrs of dialysis yesterday but was dyspneic at the end of treatment. He was referred to [facility] EMD where he was noted to be hypertensive w/ SBP 170's, anemic w/ Hgb 7.7, ECG-sinus tachycardia without ischemic change, troponin 1639 and CXR revealed mild CHF. FOBT in EMD was negative. Nephrology consultation is now requested to provide HD and assist w/ medical management. Allergies Allergy/AdvReac Type Severity Reaction Status Date / Time lisinopril AdvReac Intermediate COUGH Verified 08/22/22 12:20 Home Medications Medication Instructions Recorded Confirmed Type OneTouch Delica Lancets 33 gauge #400 ea 10/16/19 08/22/22 Rx (lancets) blood sugar diagnostic (OneTouch #400 ea 01/29/20 08/22/22 Rx Verio test strips) blood-glucose meter (OneTouch #1 ea 01/29/20 08/22/22 Rx Verio Flex Meter) acetone (urine) test (Ketostix #100 ea 02/18/20 08/22/22 Rx strips) diphenhydramine HCl 25 mg tablet 25 mg PO DIRECTED PRN allergies 11/02/20 08/22/22 History (Benadryl Allergy) pen needle, diabetic 29 gauge x #400 ea 01/25/21 08/22/22 Rx 1/2" (Comfort EZ Pen [place]) acetaminophen 300 mg-codeine 30 mg 1 tab PO BID PRN Pain #30 tabs 10/27/21 08/22/22 Rx tablet blood-glucose transmitter (Dexcom #1 ea 12/13/21 08/22/22 Rx G6 Transmitter device) cinacalcet 60 mg tablet (Sensipar) 60 mg PO HS 01/09/22 08/22/22 History aspirin 81 mg tablet,delayed 81 mg PO QPM 01/18/22 08/22/22 History release atorvastatin 80 mg tablet (Lipitor) 80 mg PO HS 01/18/22 08/22/22 History levothyroxine 50 mcg tablet 50 mcg PO QAM 01/18/22 08/22/22 History (Synthroid) carvedilol 12.5 mg tablet (Coreg) 12.5 mg PO BID #180 tabs 01/26/22 08/22/22 Rx bumetanide 2 mg tablet See Rx Instructions .Route 04/25/22 08/22/22 Rx .COMPLEX #270 tabs gabapentin 300 mg capsule 600 mg PO BID #360 caps 04/25/22 08/22/22 Rx (Neurontin) blood-glucose meter,continuous #1 ea 05/25/22 08/22/22 Rx (Dexcom G6 [employer] Counter Clerk) blood-glucose sensor (Dexcom G6 #3 ea 05/25/22 08/22/22 Rx Sensor device) duloxetine 60 mg capsule,delayed 60 mg PO QAM #90 caps 05/25/22 08/22/22 Rx release (Cymbalta) pantoprazole 40 mg tablet,delayed 40 mg PO QAM #90 tabs 05/25/22 08/22/22 Rx release (Protonix) vit B,C-folic ac 800 mcg-zinc 12.5 1 tab PO DAILY #30 tabs 06/29/22 08/22/22 Rx mg-selen-D3 2,000 unit-vit E tablet (RenaPlex-D) calcium acetate(phosphat bind) 667 0 mg PO TID 08/22/22 08/22/22 History mg capsule insulin aspart U-100 100 unit/mL 30 unit subcut TID 08/22/22 08/22/22 History (3 mL) subcutaneous pen insulin detemir U-100 100 unit/mL 60 unit subcut HS 08/22/22 08/22/22 History (3 mL) subcutaneous pen (Levemir FlexTouch U-100 Insulin) sucroferric oxyhydroxide 500 mg 0 mg PO TID 08/22/22 08/22/22 History chewable tablet (Velphoro) Patient History Medical History Chronic venous insufficiency Depression Diabetic peripheral neuropathy associated with type 1 diabetes mellitus Diabetic retinopathy Erectile dysfunction ESRD (end stage renal disease) requiring hemodialysis. MWF at [facility]. GERD (gastroesophageal reflux disease) Well controlled and stable H/O febrile seizure as a child (every year until he was 11 years old) no problems since. High cholesterol History of COVID-19 DX'D [facility] 04/28/21 COUGH-HOSPITALIZED X 1 DAY-RECOVERED AT HOME-RESOLVED Hyperosmolar hyperglycemic state (HHS) Hypertension Hypothyroidism Thrombosis of arteriovenous dialysis fistula (~02/15/20) Surgical History H/O detached retina repair History of esophagogastroduodenoscopy (EGD) S/P arteriovenous (AV) fistula creation left side, unable to use Family History Mother Diabetes Coronary heart disease Hypertension Father Coronary heart disease Hypertension Brother Coronary heart disease Kidney disease Uncle Colorectal cancer Grandmother Diabetes Aunt Diabetes Unknown Dyslipidemia Grandfather (Maternal) Diabetes Other Cancer No family history of adverse response to anesthesia Social History Smoking Status: Never smoker Second Hand Exposure: No; Do You Dip or Chew Tobacco: No; Hx Alcohol Use: Yes Alcohol type: beer Hx Substance Use: No Preferred Language: Maldivian Communication Ability: Effective Visual Impairment: No Limitations Hearing Ability: Normal Slp Required: No Beliefs That Will Affect Care: None marital status: Single Current Living Situation: Alone Current Living Situation Comment: Brother 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" How many Children do You have: 0 Feels Safe at Home: Yes Safety Concerns: Feels Safe At This Time Dental Care, Regularly: No Physical Activity Frequency: Does not Exercise Seatbelt Use: always Sunscreen Use: No Assistive Devices: Cane and Walker Review of Systems Constitutional: no fever Eyes: no problem reported Ear, Nose, Mouth, Throat: no problem reported Respiratory: + dyspnea Cardiovascular: no chest pain Gastrointestinal: no abdominal pain, no nausea, no vomiting and no diarrhea/loose stools Physical Exam Constitutional: not in distress Eyes: PERRL, conjunctivae normal, anicteric sclerae ENMT: external ear and nose normal, oropharynx normal Neck: trachea midline, no thyromegaly Respiratory: Auscultation: + rales Cardiovascular: Rate/Rhythm: regular rate and regular rhythm Extremities: + edema (1+ pitting edema) and + AV fistula (+ bruit) Gastrointestinal (Abdomen): normal bowel sounds, soft, nontender, no hepatosplenomegaly Neurologic: Speech / Cognition: normal speech and normal cognition Results & Data Vital Signs (Past 12 Hours) Vital Signs Temp Pulse Pulse Pulse Resp BP BP 08/23/22 13:00 36.6 C 80 16 186/105 H 08/23/22 13:00 36.6 C 80 186/105 H 08/23/22 12:45 36.6 C 80 16 181/93 H 08/23/22 12:30 36.5 C 83 178/100 H 08/23/22 12:00 84 183/104 H 08/23/22 12:30 36.5 C 83 16 178/100 H 08/23/22 12:25 36.5 C 81 16 183/105 H 08/23/22 11:48 36.4 C L 88 08/23/22 10:56 83 16 08/23/22 10:47 36.6 C 82 18 149/87 H 08/23/22 07:25 88 08/23/22 07:01 82 16 08/23/22 06:39 36.8 C 84 20 159/79 H 08/23/22 02:41 37.0 C 83 18 147/74 H Pulse Ox O2 Del Method O2 Flow Rate 08/23/22 13:00 96 2 08/23/22 13:00 08/23/22 12:45 96 2 08/23/22 12:30 08/23/22 12:00 08/23/22 12:30 96 2 08/23/22 12:25 96 2 08/23/22 11:48 08/23/22 10:56 96 Room Air 08/23/22 10:47 94 Room Air 08/23/22 07:25 08/23/22 07:01 98 Nasal Cannula 2 08/23/22 06:39 100 Nasal Cannula 2 08/23/22 02:41 94 Nasal Cannula 2 Laboratory Results Laboratory Results WBC 6.32 K/ul (4.8-10.8) 08/23/22 07:33 RBC 2.24 M/uL (4.70-6.10) L 08/23/22 07:33 Hgb 7.0 g/dl (14.0-18.0) L 08/23/22 07:33 Hct 20.7 % (42.0-52.0) L* 08/23/22 07:33 MCV 92.4 fL (80.0-100.0) 08/23/22 07:33 MCH 31.3 pg (25.0-34.0) 08/23/22 07:33 MCHC 33.8 g/dL (32.0-36.0) 08/23/22 07:33 RDW Std Deviation 47.7 fL (36.4-46.3) H 08/23/22 07:33 RDW Coeff of Yuki 14.3 % (11.5-14.5) 08/23/22 07:33 Plt Count 158 K/uL (130-400) 08/23/22 07:33 MPV 10.4 fL (9.4-12.4) 08/23/22 07:33 Immature Gran % (Auto) 0.3 % 08/23/22 07:33 Neut % (Auto) 69.9 % 08/23/22 07:33 Lymph % (Auto) 17.9 % 08/23/22 07:33 Howard % (Auto) 9.2 % 08/23/22 07:33 Eos % (Auto) 2.4 % 08/23/22 07:33 Baso % (Auto) 0.3 % 08/23/22 07: Reticulocyte % (Auto) 2.0 % (0.5-2.0) 08/22/22 09:29 Neut # (Auto) 4.42 K/uL (1.40-6.50) 08/23/22 07: Lymph # (Auto) 1.13 K/uL (1.2-3.4) L 08/23/22 07: Howard # (Auto) 0.58 K/uL (0.11-0.59) 08/23/22 07: Eos # (Auto) 0.15 K/uL (0-0.50) 08/23/22 07: Baso # (Auto) 0.02 K/uL (0-0.2) 08/23/22 07: Reticulocyte # 0.05 10^6/uL (0.02-0.10) 08/22/22 09: Immature Gran # (Auto) 0.02 K/uL (0.01-0.20) 08/23/22 07: Polychromasia 1+ 08/23/22 07: PT 10.8 Seconds (9.0-12.0) 08/22/22 09: INR 1.0 (0.9-1.1) 08/22/22 09: APTT 26.8 Seconds (21.0-31.0) 08/22/22 09: PTT Ratio 1.0 08/22/22 09: Sodium 135 mmol/L (136-145) L 08/23/22 07: Potassium 4.1 mmol/L (3.5-5.1) 08/23/22 07: Chloride 90 mmol/L (98-107) L 08/23/22 07: Carbon Dioxide 35 mmol/L (21-32) H 08/23/22 07:33 Anion Gap 10 (3-11) 08/23/22 07: BUN 40 mg/dl (6-23) H 08/23/22 07:33 Creatinine 6.94 mg/dl (0.6-1.4) H* D 08/23/22 07:33 Est Cr Clr Drug Dosing 18.1 ml/min 08/23/22 07:33 Est GFR ( Amer) 10.4 ml/min 08/23/22 07:33 Est GFR (Non-Af Amer) 9.0 ml/min 08/23/22 07:33 BUN/Creatinine Ratio 5.8 (10-20) L 08/23/22 07:33 Glucose 203 mg/dl (70-99(Fasting)) H 08/23/22 07:33 POC Glucose 321 mg/dl (70-99) H* 08/23/22 11:22 POC Glucose 323 mg/dl (70-99) H* 08/23/22 11:22 Lactate 1.5 mmol/L (0.4-2.0) 08/22/22 09:29 Calcium 8.6 mg/dl (8.6-10.3) 08/23/22 07:33 Phosphorus 3.0 mg/dl (2.5-4.9) 08/22/22 09:29 Magnesium 1.8 mg/dl (1.7-2.4) 08/22/22 09:29 Iron 39 mcg/dl (35-175) 08/23/22 07:33 TIBC 230 mcg/dl (250-450) L 08/22/22 09:29 Unsaturated IBC 151 mcg/dl (155-355) L 08/23/22 07:33 Transferrin % Sat 18 % (20-50) L 08/22/22 09:29 Ferritin 1091.8 ng/ml (8-388) H 08/22/22 09:29 Total Bilirubin 0.7 mg/dl (0.2-1.0) 08/22/22 09:29 AST 14 U/L (13-39) 08/22/22 09:29 ALT 13 U/L (7-52) 08/22/22 09:29 Alkaline Phosphatase 132 U/L (34-104) H 08/22/22 09:29 Troponin I High Sens 1395.9 pg/ml (0-20) H* 08/22/22 12:08 Total Protein 7.5 gm/dl (6.0-8.3) 08/22/22 09:29 Albumin 3.9 gm/dl (3.4-5.0) 08/22/22 09:29 Globulin 3.6 gm/dl (2.5-4.0) 08/22/22 09:29 Albumin/Globulin Ratio 1.1 (0.9-2) 08/22/22 09:29 Vitamin B12 401 pg/ml (180-914) 08/22/22 09: Folate 10.71 ng/ml (>5.38) 08/22/22 09: TSH 1.044 uIu/ml (0.300-4.500) 08/23/22 07:33 Nasal Screen MRSA (PCR) Negative (Negative) 08/22/22 17:24 Adenovirus (PCR) Not Detected (NotDetected) 08/22/22 09:29 B. pertussis DNA (PCR) Not Detected (NotDetected) 08/22/22 09:29 B.parapertussis DNA PCR Not Detected (NotDetected) 08/22/22 09:29 C. pneumoniae DNA (PCR) Not Detected (NotDetected) 08/22/22 09:29 Coronavirus OC43 (PCR) Not Detected (NotDetected) 08/22/22 09:29 Coronavirus HKU1 (PCR) Not Detected (NotDetected) 08/22/22 09:29 Coronavirus 229E (PCR) Not Detected (NotDetected) 08/22/22 09:29 SARS-CoV-2 (PCR) Not Detected (NotDetected) 08/22/22 09:29 Coronavirus NL63 (PCR) Not Detected (NotDetected) 08/22/22 09:29 Human Metapneumovir PCR Not Detected (NotDetected) 08/22/22 09:29 Influenza Type A (PCR) Not Detected (NotDetected) 08/22/22 09:29 Influenza Type B (PCR) Not Detected (NotDetected) 08/22/22 09:29 M. pneumoniae (PCR) Not Detected (NotDetected) 08/22/22 09:29 Parainfluenza 1 (PCR) Not Detected (NotDetected) 08/22/22 09:29 Parainfluenza 2 (PCR) Not Detected (NotDetected) 08/22/22 09:29 Parainfluenza 3 (PCR) Not Detected (NotDetected) 08/22/22 09:29 Parainfluenza 4 (PCR) Not Detected (NotDetected) 08/22/22 09:29 RSV (PCR) Not Detected (NotDetected) 08/22/22 09:29 Entero/Rhino (PCR) Not Detected (NotDetected) 08/22/22 09:29 Blood Type O Negative 08/22/22 11:01 Antibody Screen NEGATIVE 08/22/22 11:01 Crossmatch See Detail 08/22/22 11:01 Impressions Chest X-Ray 08/22/22 09:08 SINGLE VIEW CHEST CLINICAL HISTORY: Dyspnea FINDINGS: An AP, portable, upright chest radiograph is compared to study dated 10/15/2021. Correlation is made with chest CT dated 06/04/2017. The heart is enlarged. There is pulmonary vascular congestion. There is no airspace consolidation or large pleural effusion. Dependent atelectasis is noted at the lung bases. No pneumothorax is seen. The bony thorax is grossly intact. IMPRESSION: Cardiomegaly with evidence of congestive failure. ACT 112: Negative or not required by law. Electronically signed by: Aaron Mcguire M.D. 08/22/2022 10:06 AM 08/22/22 ECG - Sinus tachycardia, HR 102, LVH, nonspecific ST changes PG Care Time/CCT Total # of Minutes Spent Total Time Spent with Patient: Total time spent is greater than 50% in coordination of care (as documented) at patient's floor/unit and/or counseling patient: Coding Level of Care Code 74528 IN/OBS CONSULT LVL 5,80M Diagnoses ESRD (end stage renal disease) N18.6 Anemia D64.9 Anemia type: unspecified type Hypertension I10 Hypertension type: unspecified Elevated troponin R77.8 (2) Anemia Anemia type: unspecified type Qualified Code(s): D64.9 - Anemia, unspecified (3) Hypertension Hypertension type: unspecified Qualified Code(s): I10 - Essential (primary) hypertension
--- NOTE | 2022-08-23 15:05 | Hospitalist Progress Note ---
Date of Service August 23, 2022 Assessment & Plan (1) Shortness of breath: Plan: Due to pulmonary vascular congestion and anemia. Continue fluid management with hemodialysis. Transfuse to keep hemoglobin in a more acceptable range. Further cardiac evaluation with cardiac echo and cardiology consultation. (2) Post-nasal drip: Plan: Saline nasal spray BID. Flonase BID. Fexofenadine for seasonal allergy component (3) Elevated troponin: Plan: Significantly elevated troponin accompanied by cardiomegaly and fluid overload. Cardiac echo pending. Cardiology consultation pending. Telemetry. (4) Anemia: Plan: No evidence of gross GI bleeding at this time. We will check fecal occult blood and iron levels. Transfusion will be given with dialysis. Serial labs (5) Type 1 diabetes: Plan: ADA diet. Basal insulin therapy. Sliding scale coverage as needed (6) ESRD (end stage renal disease): Plan: Nephrology consultation and recommendations appreciated. Fluid management with hemodialysis. (7) Hypothyroidism: Plan: Continue levothyroxine 50 mcg PO daily (8) GERD (gastroesophageal reflux disease): Plan: Continue pantoprazole 40mg PO daily (9) Hypertension: Plan: Reduce dose of carvedilol to 6.25mg PO BID as he was not taking this at home due to orthostasis. Continue Bumex (10) Depression: Plan: Continue duloxetine Plan VTE Prophylaxis -heparin subcu Disposition -admitted from observation status. Anticipate eventual discharge back to home Admission and Anticipated Discharge Date Admission Date: August 23, 2022 Subjective Alert and oriented. No acute distress. Chest x-ray reveals evidence of vascular congestion and cardiomegaly. Troponins are significantly elevated. Cardiac echo is pending. Cardiology consultation requested. Review of Systems Review of Systems: Constitutional-no fever or chills ENT-no blurred vision, no double vision, no epistaxis, no sore throat Respiratory-no cough, no wheezing. Dyspnea on exertion Cardiac-no palpitations, no chest pain, no syncope GI-no nausea, vomiting, diarrhea, melena, hematochezia -no urinary retention, no urinary incontinence, no dysuria, no hematuria Musculoskeletal-no joint pain, no muscle tenderness Skin-no bruising, no rashes, no pruritus Neuro-no isolated weakness, no paresthesia, no weakness Psych-no depression, no anxiety Physical Exam Physical Exam: General-alert and oriented x3, no fevers, no chills HEENT-head atraumatic and normocephalic, pupils equal and reactive to light, extraocular muscles intact Neck-no lymphadenopathy or thyromegaly, trachea midline Chest-diminished breath sounds bilaterally. No audible wheezing. Cardiac-regular rate and rhythm, normal S1 and S2 Abdomen-normal bowel sounds, nontender, no hepatosplenomegaly Extremities-bilateral lower extremity chronic venous stasis changes noted with mild edema Neuro-cranial nerves II through XII intact, motor and sensory function within normal limits, strength symmetrical , no focal deficits Psych-normal affect, normal mood Results & Data Results & Data Vital Signs (Past 12 Hours) Vital Signs Temp Pulse Pulse Pulse Resp BP BP 08/23/22 14:45 36.6 C 78 16 167/88 H 08/23/22 14:30 36.6 C 78 16 175/97 H 08/23/22 14:30 36.6 C 78 175/97 H 08/23/22 13:42 36.6 C 76 16 177/102 H 08/23/22 14:15 36.6 C 79 16 169/99 H 08/23/22 14:00 36.6 C 78 170/99 H 08/23/22 13:30 36.6 C 76 177/102 H 08/23/22 14:00 36.6 C 78 16 170/99 H 08/23/22 13:47 36.6 C 77 16 163/97 H 08/23/22 13:15 36.6 C 78 16 175/104 H 08/23/22 13:25 08/23/22 13:00 36.6 C 80 16 186/105 H 08/23/22 13:00 36.6 C 80 186/105 H 08/23/22 12:45 36.6 C 80 16 181/93 H 08/23/22 12:30 36.5 C 83 178/100 H 08/23/22 12:00 84 183/104 H 08/23/22 12:30 36.5 C 83 16 178/100 H 08/23/22 12:25 36.5 C 81 16 183/105 H 08/23/22 11:48 36.4 C L 88 08/23/22 10:56 83 16 08/23/22 10:47 36.6 C 82 18 149/87 H 08/23/22 07:25 88 08/23/22 07:01 82 16 08/23/22 06:39 36.8 C 84 20 159/79 H Pulse Ox O2 Del Method O2 Flow Rate 08/23/22 14:45 96 2 08/23/22 14:30 96 2 08/23/22 14:30 08/23/22 13:42 96 2 08/23/22 14:15 96 2 08/23/22 14:00 08/23/22 13:30 08/23/22 14:00 96 2 08/23/22 13:47 96 2 08/23/22 13:15 96 2 08/23/22 13:25 Room Air 08/23/22 13:00 96 2 08/23/22 13:00 08/23/22 12:45 96 2 08/23/22 12:30 08/23/22 12:00 08/23/22 12:30 96 2 08/23/22 12:25 96 2 08/23/22 11:48 08/23/22 10:56 96 Room Air 08/23/22 10:47 94 Room Air 08/23/22 07:25 08/23/22 07:01 98 Nasal Cannula 2 08/23/22 06:39 100 Nasal Cannula 2 Laboratory Results 08/23/22 07:33 08/23/22 07:33 PG Care Time/CCT Total # of Minutes Spent Total Time Spent with Patient: Total time spent is greater than 50% in coordination of care (as documented) at patient's floor/unit and/or counseling patient: Coding Level of Care Code 21906 SUB INP/OBS CARE 3/50MIN Diagnoses Shortness of breath R06.02 Post-nasal drip R09.82 Elevated troponin R77.8 Anemia D64.9 Type 1 diabetes E10.22; N18.6; Z99.2 Chronic kidney disease stage: on chronic dialysis Diabetes mellitus complication detail: with chronic kidney disease Diabetes mellitus complication status: with kidney complications ESRD (end stage renal disease) N18.6 Hypothyroidism E03.9 Hypothyroidism type: unspecified GERD (gastroesophageal reflux disease) K21.9 Esophagitis presence: esophagitis presence not specified Hypertension I10 Hypertension type: unspecified Depression F33.9 Depression Type: major depressive disorder Major depression recurrence: recurrent Active/Remission status: remission status unspecified (5) Type 1 diabetes Chronic kidney disease stage: on chronic dialysis Diabetes mellitus complication detail: with chronic kidney disease Diabetes mellitus complication status: with kidney complications Qualified Code(s): E10.22 - Type 1 diabetes mellitus with diabetic chronic kidney disease; N18.6 - End stage renal disease; Z99.2 - Dependence on renal dialysis (7) Hypothyroidism Hypothyroidism type: unspecified Qualified Code(s): E03.9 - Hypothyroidism, unspecified (8) GERD (gastroesophageal reflux disease) Esophagitis presence: esophagitis presence not specified Qualified Code(s): K21.9 - Gastro-esophageal reflux disease without esophagitis (9) Hypertension Hypertension type: unspecified Qualified Code(s): I10 - Essential (primary) hypertension (10) Depression Depression Type: major depressive disorder Major depression recurrence: recurrent Active/Remission status: remission status unspecified Qualified Code(s): F33.9 - Major depressive disorder, recurrent, unspecified
--- NOTE | 2022-08-23 16:55 | Cardiology Consultation ---
Date of Consultation August 23, 2022 Assessment & Plan (1) SOB (shortness of breath): (2) Acute blood loss anemia: (3) CHF (congestive heart failure): (4) Elevated troponin: Plan 1. Shortness of breath: He evidently became quite acutely short of breath although at the moment he appears quite comfortable. He has not had shortness of breath recently. There are a lot of possibilities for shortness of breath including his anemia, fluid overload although that is primarily controlled by dialysis I believe and possibly cardiac causes such as cardiomyopathy or myocardial ischemia. From the cardiac standpoint I want to get an echocardiogram, depending on what we see there we may want to consider stress testing but I have not arranged that as yet. 2. Anemia: It appears that he has a significant drop in hemoglobin to the point where this could explain a lot if not all of his symptoms. 3. Congestive heart failure: His chest x-ray suggests fluid overload, that could be simply due to volume overload or it could represent a problem with left ventricular function. The echocardiogram will help us there. 4. Elevated troponin: His elevated troponin is worrisome however it appears to be the highest on presentation with improvement subsequently. I would continue to trend these to see the pattern. That would not be typical of myocardial injury causing his presentation, it could indicate demand ischemia although I do not know what the inciting event would have been. Perhaps anemia by itself could do it in association with decreased clearance of troponin because of his kidney disease. We may have to investigate further with stress testing depending on how his evaluation progresses. History of Present Illness Reason for Consultation: Elevated troponin, CHF Attending Physician: Neymar Cartwright MD History of Present Illness This is a 41-year-old male with a history of diabetes mellitus, hypertension and dyslipidemia as well as a family history of premature coronary artery disease. To my knowledge however he has never been identified as having coronary artery disease. The only echocardiogram I see in our records was March 03, 2019 where he had normal left ventricular systolic function and mild concentric left ventricular hypertrophy. He does have end-stage kidney disease and is on dialysis. He was in dialysis today but developed shortness of breath and was sent to the emergency room this morning. He reports having a cough for 3 days and apparently based on the EMS notes he was reported to have atrial fibrillation although I do not know how well that was documented. He does not recall having palpitations, he has no chest symptoms such as chest pain, exertional tightness, etc. He may have been a little more short of breath these last several days but he does not generally have much difficulty with activities. He denies orthopnea or PND. On presentation his electrocardiogram showed sinus tachycardia with left ventricular hypertrophy and repolarization abnormalities but no ST elevation. His troponin measurements were markedly elevated however, on presentation his high-sensitivity troponin was 1639 and a subsequent measure 2-1/2 hours later was 1395. His chest x-ray on presentation showed cardiomegaly with congestive heart failure. Allergies Allergy/AdvReac Type Severity Reaction Status Date / Time lisinopril AdvReac Intermediate COUGH Verified 08/22/22 12:20 Home Medications Medication Instructions Recorded Confirmed Type OneTouch Delica Lancets 33 gauge #400 ea 10/16/19 08/22/22 Rx (lancets) blood sugar diagnostic (OneTouch #400 ea 01/29/20 08/22/22 Rx Verio test strips) blood-glucose meter (OneTouch #1 ea 01/29/20 08/22/22 Rx Verio Flex Meter) acetone (urine) test (Ketostix #100 ea 02/18/20 08/22/22 Rx strips) diphenhydramine HCl 25 mg tablet 25 mg PO DIRECTED PRN allergies 11/02/20 08/22/22 History (Benadryl Allergy) pen needle, diabetic 29 gauge x #400 ea 01/25/21 08/22/22 Rx 1/2" (Comfort EZ [place]) acetaminophen 300 mg-codeine 30 mg 1 tab PO BID PRN Pain #30 tabs 10/27/21 08/22/22 Rx tablet blood-glucose transmitter (Dexcom #1 ea 12/13/21 08/22/22 Rx G6 Transmitter device) cinacalcet 60 mg tablet (Sensipar) 60 mg PO HS 01/09/22 08/22/22 History aspirin 81 mg tablet,delayed 81 mg PO QPM 01/18/22 08/22/22 History release atorvastatin 80 mg tablet (Lipitor) 80 mg PO HS 01/18/22 08/22/22 History levothyroxine 50 mcg tablet 50 mcg PO QAM 01/18/22 08/22/22 History (Synthroid) carvedilol 12.5 mg tablet (Coreg) 12.5 mg PO BID #180 tabs 01/26/22 08/22/22 Rx bumetanide 2 mg tablet See Rx Instructions .Route 04/25/22 08/22/22 Rx .COMPLEX #270 tabs gabapentin 300 mg capsule 600 mg PO BID #360 caps 04/25/22 08/22/22 Rx (Neurontin) blood-glucose meter,continuous #1 ea 05/25/22 08/22/22 Rx (Dexcom G6 Human Service Technician) blood-glucose sensor (Dexcom G6 #3 ea 05/25/22 08/22/22 Rx Sensor device) duloxetine 60 mg capsule,delayed 60 mg PO QAM #90 caps 05/25/22 08/22/22 Rx release (Cymbalta) pantoprazole 40 mg tablet,delayed 40 mg PO QAM #90 tabs 05/25/22 08/22/22 Rx release (Protonix) vit B,C-folic ac 800 mcg-zinc 12.5 1 tab PO DAILY #30 tabs 06/29/22 08/22/22 Rx mg-selen-D3 2,000 unit-vit E tablet (RenaPlex-D) calcium acetate(phosphat bind) 667 0 mg PO TID 08/22/22 08/22/22 History mg capsule insulin aspart U-100 100 unit/mL 30 unit subcut TID 08/22/22 08/22/22 History (3 mL) subcutaneous pen insulin detemir U-100 100 unit/mL 60 unit subcut HS 08/22/22 08/22/22 History (3 mL) subcutaneous pen (Levemir FlexTouch U-100 Insulin) sucroferric oxyhydroxide 500 mg 0 mg PO TID 08/22/22 08/22/22 History chewable tablet (Velphoro) Patient History Medical History Chronic venous insufficiency Depression Diabetic peripheral neuropathy associated with type 1 diabetes mellitus Diabetic retinopathy Erectile dysfunction ESRD (end stage renal disease) requiring hemodialysis. MWF at [facility]. GERD (gastroesophageal reflux disease) Well controlled and stable H/O febrile seizure as a child (every year until he was 11 years old) no problems since. High cholesterol History of COVID-19 DX'D [facility] 04/28/21 COUGH-HOSPITALIZED X 1 DAY-RECOVERED AT HOME-RESOLVED Hyperosmolar hyperglycemic state (HHS) Hypertension Hypothyroidism Thrombosis of arteriovenous dialysis fistula (~02/15/20) Surgical History H/O detached retina repair History of esophagogastroduodenoscopy (EGD) S/P arteriovenous (AV) fistula creation left side, unable to use Family History Mother Diabetes Coronary heart disease Hypertension Father Coronary heart disease Hypertension Brother Coronary heart disease Kidney disease Uncle Colorectal cancer Grandmother Diabetes Aunt Diabetes Unknown Dyslipidemia Grandfather (Maternal) Diabetes Other Cancer No family history of adverse response to anesthesia Social History Smoking Status: Never smoker Second Hand Exposure: No; Do You Dip or Chew Tobacco: No; Hx Alcohol Use: Yes Alcohol type: beer Hx Substance Use: No Preferred Language: Andorran Communication Ability: Effective Visual Impairment: No Limitations Hearing Ability: Normal 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: No Beliefs That Will Affect Care: None marital status: Single Current Living Situation: Alone Current Living Situation Comment: Brother 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" How many Children do You have: 0 Feels Safe at Home: Yes Safety Concerns: Feels Safe At This Time Dental Care, Regularly: No Physical Activity Frequency: Does not Exercise Seatbelt Use: always Sunscreen Use: No Assistive Devices: Cane and Walker Review of Systems Review of Systems: All systems reviewed & are unremarkable except as noted in HPI & below Physical Exam Physical Exam: Constitutional: Alert, cooperative and in no distress. He is sitting at his bedside. HEENT: Unremarkable Neck: No jugular venous distention, carotid pulses are normal and equal bilaterally without bruits. Pulmonary: Clear to auscultation bilaterally. Cardiac: Regular rhythm with no murmur, gallop or rub. Abdomen: Soft, nontender with normal bowel sounds. Extremities: No edema. Distal pulses intact. Neurologic: No focal findings. Skin: No rash, ecchymoses or petechiae. Results & Data Vital Signs (Past 12 Hours) Vital Signs Temp Pulse Pulse Pulse Pulse Resp BP 08/23/22 16:04 36.5 C 78 08/23/22 15:30 78 163/98 H 08/23/22 15:00 78 174/104 H 08/23/22 14:55 36.6 C 78 16 169/93 H 08/23/22 14:45 36.6 C 78 16 167/88 H 08/23/22 14:30 36.6 C 78 16 175/97 H 08/23/22 14:30 36.6 C 78 175/97 H 08/23/22 13:42 36.6 C 76 16 177/102 H 08/23/22 14:15 36.6 C 79 16 169/99 H 08/23/22 14:00 36.6 C 78 170/99 H 08/23/22 13:30 36.6 C 76 177/102 H 08/23/22 14:00 36.6 C 78 16 170/99 H 08/23/22 13:47 36.6 C 77 16 163/97 H 08/23/22 13:15 36.6 C 78 16 175/104 H 08/23/22 13:25 08/23/22 13:00 36.6 C 80 16 186/105 H 08/23/22 13:00 36.6 C 80 186/105 H 08/23/22 12:45 36.6 C 80 16 181/93 H 08/23/22 12:30 36.5 C 83 178/100 H 08/23/22 12:00 84 183/104 H 08/23/22 12:30 36.5 C 83 16 178/100 H 08/23/22 12:25 36.5 C 81 16 183/105 H 08/23/22 11:48 36.4 C L 88 08/23/22 10:56 83 16 08/23/22 10:47 36.6 C 82 18 08/23/22 07:25 88 08/23/22 07:01 82 16 08/23/22 06:39 36.8 C 84 20 BP Pulse Ox O2 Del Method O2 Flow Rate 08/23/22 16:04 156/93 H 08/23/22 15:30 08/23/22 15:00 08/23/22 14:55 96 2 08/23/22 14:45 96 2 08/23/22 14:30 96 2 08/23/22 14:30 08/23/22 13:42 96 2 08/23/22 14:15 96 2 08/23/22 14:00 08/23/22 13:30 08/23/22 14:00 96 2 08/23/22 13:47 96 2 08/23/22 13:15 96 2 08/23/22 13:25 Room Air 08/23/22 13:00 96 2 08/23/22 13:00 08/23/22 12:45 96 2 08/23/22 12:30 08/23/22 12:00 08/23/22 12:30 96 2 08/23/22 12:25 96 2 08/23/22 11:48 08/23/22 10:56 96 Room Air 08/23/22 10:47 149/87 H 94 Room Air 08/23/22 07:25 08/23/22 07:01 98 Nasal Cannula 2 08/23/22 06:39 159/79 H 100 Nasal Cannula 2 Laboratory Results CBC 08/23/22 Range/Units 07:33 WBC 6.32 (4.8-10.8) K/ul RBC 2.24 L (4.70-6.10) M/uL Hgb 7.0 L (14.0-18.0) g/dl Hct 20.7 L* (42.0-52.0) % Plt Count 158 (130-400) K/uL Neut # (Auto) 4.42 (1.40-6.50) K/uL Lymph # (Auto) 1.13 L (1.2-3.4) K/uL [place] # (Auto) 0.58 (0.11-0.59) K/uL Eos # (Auto) 0.15 (0-0.50) K/uL Baso # (Auto) 0.02 (0-0.2) K/uL Comprehensive Metabolic Panel 08/23/22 Range/Units 07:33 Sodium 135 L (136-145) mmol/L Potassium 4.1 (3.5-5.1) mmol/L Chloride 90 L (98-107) mmol/L Carbon Dioxide 35 H (21-32) mmol/L BUN 40 H (6-23) mg/dl Creatinine 6.94 H* D (0.6-1.4) mg/dl Glucose 203 H (70-99(Fasting)) mg/dl Calcium 8.6 (8.6-10.3) mg/dl Intake and Output 08/23/22 08/23/22 08/23/22 06:59 14:59 22:59 Intake Total 240 / 730 668 / 1003 335 / 1003 Balance 240 / 730 668 / 1003 335 / 1003 Intake: Oral 240 / 730 340 / 340 Intake (Blood Product) Amt 278 / 588 310 / 588 Packed Cells, Leukoreduced 0 / 310 310 / 310 Unit [id number] Packed Cells, Leukoreduced 278 / 278 Unit [id number] Other 50 / 75 25 / 75 Packed Cells, Leukoreduced 25 / 25 Unit [id number] Packed Cells, Leukoreduced 50 / 50 Unit [id number] Other: Hemodialysis Ultrafiltration 4,000 Amount Weight 127.1 kg Weight Measurement Method [facility] Weight 08/24/22 06:59 Weight 127.1 kg PG Care Time/CCT Total # of Minutes Spent Total Time Spent with Patient: Total time spent is greater than 50% in coordination of care (as documented) at patient's floor/unit and/or counseling patient: Coding Level of Care Code 10599 INT INP/OBS CARE 3/75MIN Diagnoses SOB (shortness of breath) R06.02 Acute blood loss anemia D62 CHF (congestive heart failure) I50.9 Heart failure chronicity: acute Heart failure type: unspecified Elevated troponin R77.8 (3) CHF (congestive heart failure) Heart failure chronicity: acute Heart failure type: unspecified Qualified Code(s): I50.9 - Heart failure, unspecified
[2022-08-23] MEDS: CINACALCET HCL 30 MG TAB PO SCH (17:43)
--- NOTE | 2022-08-23 17:48 | XCELERA ---
[id number] [id number]
[2022-08-23] MEDS: ASPIRIN 81 MG ECTAB PO SCH (20:52)
[2022-08-23] MEDS: ATORVASTATIN 40 MG TAB PO SCH (20:53)
[2022-08-23] MEDS: HEPARIN SOD 5,000 UNIT/0.5 ML VIAL SQ SCH (20:56)
[2022-08-24] MEDS: LEVOTHYROXINE SODIUM 50 MCG TABLET PO SCH (05:25)
[2022-08-24] MEDS: CALCIUM ACETATE 667 MG CAP/TAB PO SCH ×3 (07:57→17:01)
[2022-08-24] MEDS: DULoxetine HCL 60 MG CAP PO SCH (08:00)
[2022-08-24] MEDS: BUMETANIDE 1 MG TAB PO SCH ×2 (08:00→16:57)
[2022-08-24] MEDS: PANTOprazole 40 MG TAB PO SCH (08:00)
[2022-08-24] MEDS: GABAPENTIN 300 MG CAP PO SCH (08:00)
[2022-08-24] MEDS: carvediloL 6.25 MG TAB PO SCH (08:00)
[2022-08-24] MEDS: FLUTICASONE PROPIONATE NA SPR 16 GM BTL SCH (08:01)
[2022-08-24] MEDS: HEPARIN SOD 5,000 UNIT/0.5 ML VIAL SQ SCH ×2 (08:01→08:14)
[2022-08-24] MEDS: SODIUM CHLORIDE 0.65% NA SOLN 45 ML (OCEAN) NAE SCH (08:01)
[2022-08-24] MEDS: FEXOFENADINE HCL 180 MG TAB PO SCH (08:01)
[2022-08-24 08:05] LABS: Basophils # (auto) 0.03 K/uL (0-0.2); Basophils % (auto) 0.5 %; Eosinophils # (auto) 0.13 K/uL (0-0.50); Eosinophils % (auto) 2.2 %; Hemoglobin 9.3 g/dl (14.0-18.0); Immature Granulocytes # (auto) 0.03 K/uL (0.01-0.20); Immature Granulocytes % (auto) 0.5 %; Lymphocytes # (auto) 1.24 K/uL (1.2-3.4); Lymphocytes % (auto) 20.8 %; Mean Corpuscular Hemoglobin 31.5 pg (25.0-34.0); Mean Corpuscular Hgb Conc 34.4 g/dL (32.0-36.0); Mean Corpuscular Volume 91.5 fL (80.0-100.0); Mean Platelet Volume 10.1 fL (9.4-12.4); Monocytes # (auto) 0.59 K/uL (0.11-0.59); Monocytes % (auto) 9.9 %; Neutrophils # (auto) 3.94 K/uL (1.40-6.50); Neutrophils % (auto) 66.1 %; Platelet Count 179 K/uL (130-400); RDW Coefficient of Variation 14.3 % (11.5-14.5); RDW Standard Deviation 47.4 fL (36.4-46.3); Red Blood Count 2.95 M/uL (4.70-6.10); White Blood Count 5.96 K/ul (4.8-10.8)
[2022-08-24] MEDS: INSULIN ASPART PER UNIT CHARGE SC SCH ×3 (08:07→17:00)
[2022-08-24] MEDS ORDERED: INSULIN ASPART PER UNIT CHARGE SC ONE (08:30)
[2022-08-24 08:39] LABS: BUN Creatinine Ratio 4.9 (10-20); Calcium 8.8 mg/dl (8.6-10.3); Est GFR (African American) 13.9 ml/min; Potassium 4.3 mmol/L (3.5-5.1)
--- NOTE | 2022-08-24 08:40 | XRay Report ---
XR chest 1V portable CLINICAL HISTORY: Congestive heart failure. COMPARISON STUDY: Chest radiograph August 22, 2022. FINDINGS: No pneumothorax or pleural effusion is present. There is no consolidation. Pulmonary edema has resolved. Cardiomegaly is unchanged. Mediastinal contours are stable. IMPRESSION: Cardiomegaly. Interval resolution of pulmonary edema. ACT 112: Negative or not required by law. Electronically signed by: Fredy Peterson M.D. 08/24/2022 8:39 AM
--- NOTE | 2022-08-24 08:58 | Nephrology Progress Note ---
Date of Service August 24, 2022 Assessment & Plan (1) ESRD (end stage renal disease): Plan: * Volume status and electrolyte balance are acceptable * CXR shows improvement in CHF * Will dialyze today to resume MWF outpatient schedule and attempt additional 2 L UF * If discharge is anticipated, please have patient resume outpatient HD MWF at [facility] [place] (2) Anemia: Plan: * 2 units PRBC transfused 08/23/22 on HD * Iron saturation 30%, ferritin 1,092 - no indication for IV iron (3) Hypertension: Plan: * Continue Carvedilol, Bumex (4) Elevated troponin: Plan: * Troponin trending down - likely had demand ischemia related to severe anemia * 08/23/22 Echocardiogram: LVEF 55-60%, no WMA * POC discussed w/ Cardiology this am - patient will need pharmacologic stress test as outpatient Admission and Anticipated Discharge Date Admission Date: August 23, 2022 Subjective Mr. Snell was evaluated in his hospital room this morning. He was dialyzed yesterday without complication and transfused 2 U PRBC. This morning he is subjectively improved and denies overt blood loss, dyspnea, or angina. Review of Systems Constitutional: no fever Eyes: no problem reported Ear, Nose, Mouth, Throat: no problem reported Respiratory: + dyspnea Cardiovascular: no chest pain Gastrointestinal: no abdominal pain, no nausea, no vomiting and no diarrhea/loose stools Physical Exam Constitutional: not in distress Eyes: PERRL, conjunctivae normal, anicteric sclerae ENMT: external ear and nose normal, oropharynx normal Neck: trachea midline, no thyromegaly Respiratory: Auscultation: lungs clear to auscultation bilaterally Cardiovascular: Rate/Rhythm: regular rate and regular rhythm Extremities: + edema (trace pitting edema) and + AV fistula (+ bruit) Gastrointestinal (Abdomen): normal bowel sounds, soft, nontender, no hepatosplenomegaly Neurologic: Speech / Cognition: normal speech and normal cognition Results & Data Vital Signs (Past 12 Hours) Vital Signs Temp Pulse Pulse Resp BP Pulse Ox O2 Del Method 08/24/22 07:58 36.8 C 87 16 169/89 H 96 Room Air 08/24/22 03:52 37.0 C 84 18 147/78 H 93 Room Air 08/24/22 01:50 86 08/23/22 22:50 37.1 C 90 18 168/83 H 95 Room Air Laboratory Results Laboratory Tests 08/22/22 08/22/22 08/23/22 09:29 12:08 17:45 WBC Hgb Hct Plt Count Sodium Potassium Chloride Carbon Dioxide BUN Creatinine Glucose Transferrin % Sat Ferritin 1091.8 H Troponin I High Sens 1639.5 H* 1395.9 H* 367.9 H* D 08/24/22 08/24/22 07:41 07:41 WBC 5.96 Hgb 9.3 L Hct 27.0 L Plt Count 179 Sodium 134 L Potassium 4.3 Chloride 97 L Carbon Dioxide 27 BUN 27 H Creatinine 5.48 H* D Glucose 207 H Transferrin % Sat 30 Ferritin Troponin I High Sens PG Care Time/CCT Total # of Minutes Spent Total Time Spent with Patient: Total time spent is greater than 50% in coordination of care (as documented) at patient's floor/unit and/or counseling patient: Coding Level of Care Code 22180 SUB INP/OBS CARE 3/50MIN Diagnoses ESRD (end stage renal disease) N18.6 Anemia D64.9 Anemia type: unspecified type Hypertension I10 Hypertension type: unspecified Elevated troponin R77.8 (2) Anemia Anemia type: unspecified type Qualified Code(s): D64.9 - Anemia, unspecified (3) Hypertension Hypertension type: unspecified Qualified Code(s): I10 - Essential (primary) hypertension
[2022-08-24] MEDS ORDERED: LANTUS PER UNIT CHARGE SC SCH (09:00)
[2022-08-24] MEDS ORDERED: SODIUM CHLORIDE 0.9% 1000ML 1,000 ML IV PRN (09:28)
[2022-08-24] MEDS ORDERED: LANTUS PER UNIT CHARGE SQ SCH (10:30)
--- NOTE | 2022-08-24 12:45 | Discharge Summary ---
Date of Service August 24, 2022 Admission HPI Per Admitting Provider Ventura Snell is a 41 year old male with T1DM with ESRB on dialysis who presents from dialysis due to cough and shortness of breath. He reports ongoing cough for the last three weeks. He had been putting it up to allergies but not taking his Benadryl as it makes him too sedated. He has noted nasal congestion with post nasal drip. Worse during the night time. He went to urgent care and was advised to take Claritin which he started yesterday and felt it initially helped although he had severe coughing episodes overnight and planned to come to the ER today after dialysis regardless for a medical evaluation. Mainly a dry cough but reports some productive sputum today. At dialysis he was having increasing shortness of breath with O2 sats 83% on room air therefore his dialysis session was but short and he missed 40 minutes of treatment. He reports normally having seasonal allergies which is worse at this time of year. He denies any chest pain, fever or chills. Of note he has not been taking carvedilol due to his BP being too low for the last 5-6 days ago. Since stopped it has been feeling less presyncopal. EMS noted concern for atrial fibrillation initially when placed on the monitor although no EKG was taken at this time and strip not available on admission Principal Diagnosis Symptomatic anemia, cardiomegaly, pulmonary vascular congestion, shortness of breath, elevated troponin Discharge Exam General-alert and oriented x3, no fevers, no chills HEENT-head atraumatic and normocephalic, pupils equal and reactive to light, extraocular muscles intact Neck-no lymphadenopathy or thyromegaly, trachea midline Chest-diminished breath sounds bilaterally. No audible wheezing. Cardiac-regular rate and rhythm, normal S1 and S2 Abdomen-normal bowel sounds, nontender, no hepatosplenomegaly Extremities-bilateral lower extremity chronic venous stasis changes noted with mild edema Neuro-cranial nerves II through XII intact, motor and sensory function within normal limits, strength symmetrical , no focal deficits Psych-normal affect, normal mood Discharge Data Allergies Allergy/AdvReac Type Severity Reaction Status Date / Time lisinopril AdvReac Intermediate COUGH Verified 08/22/22 12:20 Consultations 08/22/22 11:06 ED Decision to Admit Stat 08/22/22 11:08 Consult Nephrology Routine 08/23/22 14:00 Consult Cardiology Routine Hospital Course (1) Shortness of breath: Due to pulmonary vascular congestion and anemia. Continue fluid management with hemodialysis. Transfused to hemoglobin level of 9.3. Shortness of breath has resolved. Cardiac echo reveals no regional wall motion abnormalities. (2) Post-nasal drip: Saline nasal spray BID. Flonase BID. Fexofenadine for seasonal allergy component (3) Elevated troponin: Significantly elevated troponin accompanied by cardiomegaly and fluid overload. Cardiac echo negative for regional wall motion abnormalities. Cardiology consultation noted. Outpatient stress testing recommended. (4) Anemia: No evidence of gross GI bleeding at this time. Fecal occult blood was ordered but as apparently not done. Iron levels are low normal. Transfusion was given with dialysis. Hemoglobin improved to 9.3 (5) Type 1 diabetes: ADA diet. Basal insulin therapy. Sliding scale coverage as needed . Resume usual home regimen at discharge (6) ESRD (end stage renal disease): Nephrology consultation and recommendations appreciated. Fluid management with hemodialysis. (7) Hypothyroidism: Continue levothyroxine 50 mcg PO daily (8) GERD (gastroesophageal reflux disease): Continue pantoprazole 40mg PO daily (9) Hypertension: Reduced dose of carvedilol to 6.25mg PO BID as he was not taking this at home due to orthostasis. Continue Bumex (10) Depression: Continue duloxetine Plan VTE Prophylaxis -heparin subcu Disposition -discharge to home today, August 24 Total Time Total Time Spent Total Time Spent (In Minutes): 40 minutes Discharge Plan Discharge Items Patient Disposition: Home - Self-Care Reason For Visit: SOB Discharge Diagnosis: Symptomatic anemia, shortness of breath, cardiomegaly, pulmonary vascular congestion, elevated troponin Condition on Discharge: Fair Activity: Resume your previous activity Non-emergency contact: Primary Care Provider Call non-emergency contact if: you have any medication questions and your symptoms worsen Follow-up/Referrals: Maki Peterson MD [Primary Care Provider] - Diet: Carb Count or DM1 and Dialysis Renal Addtl Attending Provider Instructions: Follow-up with cardiology for scheduling of outpatient stress testing. Coreg dosage has been decreased Pending Studies at Discharge: No Stand-Alone Forms: [employer], Smoking Cessation Medications and DC Order Prescriptions: New carvedilol 6.25 mg Tablet 6.25 mg PO BID Qty: 60 0RF Continued (DME) Ketostix Strip See Rx Instructions .ROUTE .MEDSUPPLY Qty: 100 3RF Rx Instructions: As directed (DME) pen needle, diabetic [Comfort EZ Pen [place]] 29 gauge x 1/2" needle See Rx Instructions .ROUTE .MEDSUPPLY Qty: 400 3RF Rx Instructions: use 4 x daily bumetanide 2 mg tablet See Rx Instructions .ROUTE .COMPLEX Qty: 270 3RF Rx Instructions: 1 tab PO QAM and 2 tabs PO QPM gabapentin [Neurontin] 300 mg capsule 600 mg PO BID Qty: 360 3RF duloxetine [Cymbalta] 60 mg capsule,delayed release(DR/EC) 60 mg PO QAM Qty: 90 3RF pantoprazole [Protonix] 40 mg tablet,delayed release (DR/EC) 40 mg PO QAM Qty: 90 3RF (DME) Dexcom G6 Medical Imaging Tech Misc See Rx Instructions .Route Qty: 1 0RF Rx Instructions: As directed (DME) Dexcom G6 Sensor Device See Rx Instructions .Route Qty: 3 5RF Rx Instructions: As directed RenaPlex-D 800 mcg-12.5 mg -2,000 unit tablet 1 tab PO DAILY Qty: 30 4RF Patient Comments: I ran out of the medication, so I haven't been taking it. If I could get a new prescription I would resume taking it. (DME) OneTouch Verio test strips Strip See Rx Instructions .ROUTE .MEDSUPPLY Qty: 400 3RF Rx Instructions: Test 4 times daily (DME) blood-glucose meter [OneTouch Verio Flex meter] Misc See Rx Instructions .ROUTE .MEDSUPPLY Qty: 1 0RF Rx Instructions: As directed ([facility] [place] lancets [OneTouch Delica Lancets] 33 gauge misc See Rx Instructions .ROUTE .MEDSUPPLY Qty: 400 3RF Rx Instructions: test blood suigars 4 x daily acetaminophen-codeine 300-30 mg tablet 1 tab PO BID PRN (Reason: Pain) Qty: 30 0RF cinacalcet [Sensipar] 60 mg tablet 60 mg PO HS (DME) Dexcom G6 Transmitter Device See Rx Instructions .Route Qty: 1 1RF Rx Instructions: As directed atorvastatin [Lipitor] 80 mg tablet 80 mg PO HS aspirin 81 mg tablet,delayed release (DR/EC) 81 mg PO QPM levothyroxine [Synthroid] 50 mcg tablet 50 mcg PO QAM insulin aspart U-100 100 unit/mL (3 mL) insulin pen 30 unit subcut TID Rx Instructions: Patient injects 30 units w/ each main meal. calcium acetate(phosphat bind) 667 mg capsule 0 mg PO TID Rx Instructions: Patient takes 3 capsules with each main meal of the day. Levemir FlexTouch U100 Insulin 100 unit/mL (3 mL) insulin pen 60 unit SQ HS Velphoro 500 mg tablet,chewable 0 mg PO TID Rx Instructions: Patient takes 1 tablet by mouth with each snack. diphenhydramine HCl [Benadryl Allergy] 25 mg Tablet 25 mg PO DIRECTED PRN (Reason: allergies) Discontinued carvedilol [Coreg] 12.5 mg tablet 12.5 mg PO BID Qty: 180 3RF Discharge Orders: Discharge Order (Routine); Ordered 08/24/22 Ordered By: Neymar Cartwright Admission Data Admit Date/Time: 08/23/22 09:06 Attending Provider: Neymar Cartwright Admit Provider: Bruce Oconnell Primary Care Provider: Maki Peterson Other Providers: Landry Miranda ; Bruce Oconnell ; Hermelindo Mae ; Fran Pena ; Darshan Garcia ; Saul Castellano ; Pasquale Zhang ; Shlomo Fuller Jr ; Nicholas Pittman ; Christina Michael ; Patty Hoff ; Cesar Tijerina ; Rich Marie ; Neymar Nation Jennifer M. ; Victorina Figueroa ; Khanh Avitia Henry C. ; Saul Viveros V. Coding Level of Care Code 26230 INP/OBS DISCH >30 MIN Diagnoses Shortness of breath R06.02 Post-nasal drip R09.82 Elevated troponin R77.8 Anemia D64.9 Type 1 diabetes E10.22; N18.6; Z99.2 Chronic kidney disease stage: on chronic dialysis Diabetes mellitus complication detail: with chronic kidney disease Diabetes mellitus complication status: with kidney complications ESRD (end stage renal disease) N18.6 Hypothyroidism E03.9 Hypothyroidism type: unspecified GERD (gastroesophageal reflux disease) K21.9 Esophagitis presence: esophagitis presence not specified Hypertension I10 Hypertension type: unspecified Depression F33.9 Depression Type: major depressive disorder Major depression recurrence: recurrent Active/Remission status: remission status unspecified
[2022-08-24] MEDS: CINACALCET HCL 30 MG TAB PO SCH (16:57)
--- NOTE | 2022-08-24 17:07 | Cardiology Progress Note ---
Date of Service August 24, 2022 Assessment & Plan (1) SOB (shortness of breath): (2) Acute blood loss anemia: (3) CHF (congestive heart failure): (4) Elevated troponin: Plan 1. Shortness of breath: He became quite acutely short of breath before presentation, however his breathing improved substantially with conservative treatment. Following dialysis he is feeling much better, this should have controlled his fluid overload to some extent, and although he remains anemic that may be a contributing factor. His echocardiogram does not show left ventricular dysfunction or pericardial effusion. I do not believe this represents a cardiac issue despite the elevated troponin. At this point I do not think we need a stress test although his symptoms continue we may want to do that. 2. Anemia: It appears that he has a significant drop in hemoglobin to the point where this could explain a lot if not all of his symptoms. That has improved substantially (9.3 today) along with his improvement in symptoms which is consistent. 3. Congestive heart failure: His chest x-ray suggested fluid overload, that could be simply due to volume overload or it could represent a problem with left ventricular function. His left ventricular function has not changed and he feels better following dialysis so I suspect that was fluid overload alone. 4. Elevated troponin: His elevated troponin is worrisome however it appears to be the highest on presentation with improvement subsequently. That would not be typical of myocardial injury causing his presentation, it could indicate demand ischemia although I do not know what the inciting event would have been. Perhaps anemia by itself could do it in association with decreased clearance of troponin because of his kidney disease. With improvement in his symptoms I do not think we need to pursue further evaluation, however if he still does not feel well following discharge we may want to consider stress testing. Admission and Anticipated Discharge Date Admission Date: August 23, 2022 Subjective He is feeling considerably better after dialysis, he is sitting at his bedside eating dinner. He has not been very active here in the hospital but has not had much shortness of breath today. Physical Exam Physical Exam: Constitutional: Alert, cooperative and in no distress. He is sitting at his bedside. HEENT: Unremarkable Neck: No jugular venous distention, carotid pulses are normal and equal bilaterally without bruits. Pulmonary: Clear to auscultation bilaterally. Cardiac: Regular rhythm with no murmur, gallop or rub. Abdomen: Soft, nontender with normal bowel sounds. Extremities: No edema. Distal pulses intact. Neurologic: No focal findings. Skin: No rash, ecchymoses or petechiae. Results & Data Vital Signs (Past 12 Hours) Vital Signs Temp Pulse Pulse Pulse Pulse Resp BP 08/24/22 16:20 36.5 C 79 16 08/24/22 15:12 77 08/24/22 13:42 36.7 C 83 87 80 16 08/24/22 13:30 77 194/106 H 08/24/22 13:00 78 232/106 H 08/24/22 12:48 77 212/93 H 08/24/22 12:36 36.7 C 80 08/24/22 11:36 36.6 C 82 16 08/24/22 06:01 85 08/24/22 07:58 36.8 C 87 16 BP Pulse Ox O2 Del Method 08/24/22 16:20 145/83 H 100 Room Air 08/24/22 15:12 08/24/22 13:42 167/82 H 98 08/24/22 13:30 08/24/22 13:00 08/24/22 12:48 08/24/22 12:36 08/24/22 11:36 167/82 H 98 Room Air 08/24/22 06:01 08/24/22 07:58 169/89 H 96 Room Air Laboratory Results Cardiac Enzymes 08/23/22 Range/Units 17:45 Troponin I High Sens 367.9 H* D (0-20) pg/ml CBC 08/24/22 Range/Units 07:41 WBC 5.96 (4.8-10.8) K/ul RBC 2.95 L (4.70-6.10) M/uL Hgb 9.3 L (14.0-18.0) g/dl Hct 27.0 L (42.0-52.0) % Plt Count 179 (130-400) K/uL Neut # (Auto) 3.94 (1.40-6.50) K/uL Lymph # (Auto) 1.24 (1.2-3.4) K/uL [place] # (Auto) 0.59 (0.11-0.59) K/uL Eos # (Auto) 0.13 (0-0.50) K/uL Baso # (Auto) 0.03 (0-0.2) K/uL Comprehensive Metabolic Panel 08/24/22 Range/Units 07:41 Sodium 134 L (136-145) mmol/L Potassium 4.3 (3.5-5.1) mmol/L Chloride 97 L (98-107) mmol/L Carbon Dioxide 27 (21-32) mmol/L BUN 27 H (6-23) mg/dl Creatinine 5.48 H* D (0.6-1.4) mg/dl Glucose 207 H (70-99(Fasting)) mg/dl Calcium 8.8 (8.6-10.3) mg/dl Intake and Output 08/24/22 08/24/22 08/24/22 06:59 14:59 22:59 Intake Total 500 / 1803 840 / 840 Balance 500 / 1803 840 / 840 Intake: Oral 500 / 1140 840 / 840 Other: Weight 127.5 kg 127.5 kg 127.5 kg Weight Measurement Method [facility] Weight 08/25/22 06:59 Weight 127.5 kg Diagnostic Findings Telemetry: Sinus rhythm in the 80s An echocardiogram is technically difficult but the left ventricle is borderline dilated with normal left ventricular systolic function and normal left ventricular wall motion. The right ventricle appeared to be of normal size and function. There were no obvious valvular abnormalities. PG Care Time/CCT Total # of Minutes Spent Total Time Spent with Patient: Total time spent is greater than 50% in coordination of care (as documented) at patient's floor/unit and/or counseling patient: Coding Level of Care Code 85655 SUB INP/OBS CARE 3/50MIN Diagnoses SOB (shortness of breath) R06.02 Acute blood loss anemia D62 CHF (congestive heart failure) I50.9 Heart failure chronicity: acute Heart failure type: unspecified Elevated troponin R77.8 (3) CHF (congestive heart failure) Heart failure chronicity: acute Heart failure type: unspecified Qualified Code(s): I50.9 - Heart failure, unspecified
--- NOTE | 2022-08-24 21:30 | Electrocardiogram Report ---
Test Reason : Blood Pressure : / mmHG Vent. Rate : 086 BPM Atrial Rate : 086 BPM P-R Int : 144 ms QRS Dur : 084 ms QT Int : 392 ms P-R-T Axes : 066 037 086 degrees QTc Int : 469 ms Normal sinus rhythm Normal ECG When compared with ECG of 22-AUG-2022 08:59, No significant change was found Confirmed by Pasquale Zhang ([id number]) on 08/24/2022 9:30:36 PM Referred By: REFERRED SELF Confirmed By:Pasquale Zhang
--- NOTE | 2022-08-29 15:30 | Coding Query ---
CONGESTIVE HEART FAILURE To Promote full compliance with coding requirements relating to patient care, physician participation is requested in all cases of customer contact sales associate uncertainty. Please assist us with the following questions. A diagnosis of Congestive Heart Failure is documented in the patient's medical record. To accurately code this diagnosis and to compare patient severity, we ask that you specify the type of heart failure by placing an X within the parenthesis (x). ( ) SYSTOLIC HEART FAILURE ( ) Acute ( ) Chronic ( ) Acute on Chronic ( ) Rheumatic ( ) Unknown ( x) DIASTOLIC HEART FAILURE ( x) Acute ( ) Chronic ( ) Acute on Chronic ( ) Rheumatic ( ) Unknown ( ) COMBINED SYSTOLIC AND DIASTOLIC HEART FAILURE ( ) Acute ( ) Chronic ( ) Acute on Chronic ( ) Rheumatic ( ) Unknown ( ) CHF was ruled out ( ) Patient's symptoms were due to volume/fluid overload ( ) Other, please explain Provider's Comment: Thank you for your time, KIRILL Barrow, [facility]
--- NOTE | 2022-08-29 15:36 | Coding Query ---
ANEMIA To promote full compliance with coding requirements relating to patient care, physician participation is requested in all cases of diabetes specialist uncertainty. Please assist us with the question(s) below: Coding Question(s): Dr. Zhang's consult report indicates a diagnosis of acute blood loss anemia. Please indicate if you agree with this diagnosis, and if so, the cause and site of the blood loss, if known. ( ) Patient had acute blood loss anemia Etiology and site of blood loss: ( x ) Patient did not have acute blood loss anemia Please specify type of anemia below: If you disagree, please specify the known or suspected type of anemia by placing an "X" within the parenthesis (x). If other, please document type. ( ) Acute blood loss anemia ( ) Chronic blood loss anemia ( ) Anemia of chronic disease ( ) Aplastic anemia (x ) Anemia due to renal disease ( ) Anemia in neoplastic disease ( x) Iron deficient anemia ( ) Anemia, unspecified or other ( ) Other: (please specify) Provider's comment: Thank you for your time, KIRILL Barrow, [facility]
--- NOTE | 2022-08-29 16:01 | Coding Query ---
CODING QUERY To promote full compliance with coding requirements relating to patient care, provider participation is requested in all cases of avionics manager uncertainty. Please assist us with the question(s) below: Coding Question(s): Dr. Zhang's consult report states that the patient's elevated troponin could indicate demand ischemia. Please clarify: ( x ) demand ischemia was present and treated during this encounter ( ) demand ischemia was ruled out ( ) other, please explain Physician's Response(s): Thank you for your time, KIRILL Barrow, [facility]
== END 2022-08-24 18:29 | disposition home or self-care (01) | DRG 698 ==
LOC: EDINP 08:54 → ED 08:54 → SUATTDRO 11:08 → 2W 14:04

== ENCOUNTER 2022-11-02 06:51 | Inpatient (IN) ==
[2022-11-02] MEDS ORDERED: METOPROLOL TARTRATE 1 MG/ML VIAL IV STA (07:08)
--- NOTE | 2022-11-02 07:13 | Emergency Department Note ---
Impression & Plan Atrial fibrillation with rapid ventricular response, Acute hyperglycemia ED Provider Note Name: VIJAYA HAMILTON Age: 42 Sex: M Arrives Via: Ambulance Informant: Patient ED Provider: Alejandro Castro MD Chief Complaint: Palpitations Impression: As per impressions above Medical Decision Makin-year-old gentleman with history of diabetes, end-stage renal disease on dialy sis amongst multiple other medical comorbidities arrives for evaluation of 1 to 2 weeks intermittent palpitations. He is feeling bit short of breath with any time the palpitations occur. Does seem to get worse with any exertion or coughing. No specific chest pain or other concerning symptoms. On arrival patient's heart rate is in the 150s-160s and is irregular. This is consistent with A-fib RVR. He does seem to bump in and out of it fairly frequently and thus was given 5 mg IV Lopressor. This seems to have broken any further tachyarrhythmia. Patient is feeling much better. He is mildly hypoxic on room air I suspect there is a little bit of pulmonary edema from significant tachycardia. Given his dialysis history I think just placing on a little bit of nasal cannula for now rather than giving Lasix as best for the moment. Will defer anticoagulation choice to hospitalist. Given the patient's multiple risk factors I do feel that hospitalization is indicated with this new onset A-fib RVR. Patient is comfortable with this plan. He is also noted to be severely hyperglycemic. He is not in DKA at this time. He was given some IV insulin but no fluids given the concern for fluid overload already rate. Prior Medical Record and Triage/Nursing Notes reviewed by Me External chart reviewed by me. Differentials:Premature contractions, electrolyte abnormality, cardiac dysrhythmia, thyroid dysfunction, pulmonary embolism, infection, gastro intestinal, as well as other pathologies. Vital Signs: reviewed and remarkable for tachycardia Interventions: lopressor 5mg iv, insulin 10U IV Labs:Reviewed and remarkable for significant hyperglycemia. Consistent with his chronic renal failure. All labs reviewed by me Imagin view chest x-ray as per my interpretation mild congestive failure consistent with previous CXR. EKG:As per my interpretation. Indication palpitations. A fib at 140 bpm with no clear ischemic findings. QTc 433. When compared to previous EKG of 09/18/2022 A-fib is new. Cardiac/Tele Monitoring: Cardiac Monitoring: An Order was placed for continuous cardiac monitoring. The monitor shows a rate of 80 with a normal sinus rhythm. Consults:Dr Jose MCKAY Hospitalist Plan: Disposition:Hospitalization. Condition: Good History of Present Illness:42-year-old male arrives for evaluation of palpitations. Patient notes for the last 1 to 2 weeks intermittent palpitations. Last few days feeling a bit more short of breath and this morning symptoms were a lot worse. Notes anytime he exerts himself or even coughs his heart rate goes up goes up for a few minutes and then comes down. Denies any specific chest pain, syncope, lightheadedness, abdominal pain, back pain, nausea, vomiting, urinary/bowel symptoms, change in typical leg swelling or other concerning signs or symptoms. Patient states he is never had any history of A-fib or CHF (despite chart noting chf). He does have a history of diabetes and is on dialysis for end-stage renal disease. Denies any recent cough colds or flulike symptoms. Arrives via EMS no medications prior to arrival. Patient does not take any blood thinners and periodically takes aspirin. Past History:See Below Home Medications:See Below Allergies:See Below Vitals:Blood Pressure: 181/105, Pulse 152, RR 15, T 36.4C, O2 98% on RA Physical Exam: GENERAL: Patient is chronically unwell appearing and in minimal distress. EYES: No scleral icterus, unremarkable pupils. ENT: Mucous membranes moist, no nasal congestion. NECK: No masses appreciated, nomeningismus, trachea is midline. RESPIRATORY: No dyspnea. Decreased breath sounds throughout some crackles noted. CARDIOVASCULAR: Tachycardic irregular no perceived murmur. GASTROINTESTINAL: Abdomen soft, non-tender, no peritonitis. EXTREMITIES: Normal motion all extremities, no cyanosis, bilateral lymphedema mild pitting. Fistula left forearm good thrill. NEUROLOGIC: Alert and oriented, no focal neurologic deficit appreciated. SKIN: No rash, no jaundice, no diaphoresis. Patient with small cellulitis anterior right face surrounding a pimple next to his nose (patient states this is chronic) PSYCH: Appropriate GCS: 15 ED Course: Times/Reassessments: Resolution of tachycardia with IV Lopressor. Patient is agreeable to hospitalization. Alejandro Castro MD Past Med/Surg History Medical History (Updated 11/02/22 @ 16:13 by Alejandro Castro MD) Chronic venous insufficiency Depression Diabetic peripheral neuropathy associated with type 1 diabetes mellitus Diabetic retinopathy Erectile dysfunction ESRD (end stage renal disease) requiring hemodialysis. MWF at [facility]. ESRD (end stage renal disease) GERD (gastroesophageal reflux disease) Well controlled and stable H/O febrile seizure as a child (every year until he was 11 years old) no problems since. High cholesterol History of COVID-19 DX'D [facility] 04/28/21 COUGH-HOSPITALIZED X 1 DAY-RECOVERED AT HOME-RESOLVED Hyperosmolar hyperglycemic state (HHS) Hypertension Hypothyroidism Renal failure Thrombosis of arteriovenous dialysis fistula (~02/15/20) Type 1 diabetes Surgical History H/O detached retina repair History of esophagogastroduodenoscopy (EGD) S/P arteriovenous (AV) fistula creation left side, unable to use Family History Mother Diabetes Coronary heart disease Hypertension Father Coronary heart disease Hypertension Brother Coronary heart disease Kidney disease Uncle Colorectal cancer Grandmother Diabetes Aunt Diabetes Unknown Dyslipidemia Grandfather (Maternal) Diabetes Other Cancer No family history of adverse response to anesthesia Social History Smoking Status: Never smoker Second Hand Exposure: No; Do You Dip or Chew Tobacco: No; Tobacco Cessation Education Requested by Patient: No Hx Alcohol Use: No Hx Substance Use: No Preferred Language: Slovenian Communication Ability: Effective Visual Impairment: No Limitations Hearing Ability: Normal It Risk Advisor Required: No Beliefs That Will Affect Care: None marital status: Single Current Living Situation: Alone Current Living Situation Comment: Brother 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" How many Children do You have: 0 Other Information That Helps Us Care for You: No Feels Safe at Home: Yes Safety Concerns: Feels Safe At This Time Dental Care, Regularly: No Physical Activity Frequency: Does not Exercise Seatbelt Use: always Sunscreen Use: No Assistive Devices: Cane Assistive Devices Comment: Cane when out of the house Allergies Allergies Allergy/AdvReac Type Severity Reaction Status Date / Time lisinopril AdvReac Intermediate COUGH Verified 11/02/22 10:13 Home Meds Home Medications Medication Instructions Recorded Confirmed cinacalcet 60 mg tablet (Sensipar) 60 mg PO HS 01/09/22 11/02/22 aspirin 81 mg tablet,delayed 81 mg PO QPM 01/18/22 11/02/22 release atorvastatin 80 mg tablet (Lipitor) 80 mg PO HS 01/18/22 11/02/22 levothyroxine 50 mcg tablet 50 mcg PO QAM 01/18/22 11/02/22 (Synthroid) calcium acetate(phosphat bind) 667 0 mg PO TID 08/22/22 11/02/22 mg capsule sucroferric oxyhydroxide 500 mg 0 mg PO TID 08/22/22 11/02/22 chewable tablet (Velphoro) insulin detemir U-100 100 unit/mL 0 unit subcut PM 11/02/22 11/02/22 (3 mL) subcutaneous pen Previous Rx's Medication Instructions Recorded OneTouch Delica Lancets 33 gauge #400 ea 10/16/19 (lancets) blood sugar diagnostic (OneTouch #400 ea 01/29/20 Verio test strips) blood-glucose meter (OneTouch #1 ea 01/29/20 Verio Flex Meter) acetone (urine) test (Ketostix #100 ea 02/18/20 strips) pen needle, diabetic 29 gauge x #400 ea 01/25/21 1/2" (Comfort EZ Pen Gustavus) blood-glucose transmitter (Dexcom #1 ea 12/13/21 G6 Transmitter device) bumetanide 2 mg tablet See Rx Instructions .Route 04/25/22 .COMPLEX #270 tabs blood-glucose meter,continuous #1 ea 05/25/22 (Dexcom G6 Button Tacker) blood-glucose sensor (Dexcom G6 #3 ea 05/25/22 Sensor device) duloxetine 60 mg capsule,delayed 60 mg PO QAM #90 caps 05/25/22 release (Cymbalta) pantoprazole 40 mg tablet,delayed 40 mg PO QAM #90 tabs 05/25/22 release (Protonix) vit B,C-folic ac 800 mcg-zinc 12.5 1 tab PO DAILY #30 tabs 06/29/22 mg-selen-D3 2,000 unit-vit E tablet (RenaPlex-D) carvedilol 6.25 mg tablet 6.25 mg PO BID #60 tabs 08/24/22 insulin aspart U-100 100 unit/mL 60 unit (0.6 mL) subcut TID 90 09/10/22 (3 mL) subcutaneous pen days #162 mL gabapentin 300 mg capsule 600 mg PO BID #360 caps 10/24/22 (Neurontin) Results & Data (ED) Vital Signs Vital Signs - 24 hr 11/02/22 07:04 11/02/22 07:27 11/02/22 07:43 Temperature 36.9 C Temperature Source Oral Pulse Rate 144 H 93 H Pulse Rate from SpO2 Sensor 93 H Respiratory Rate 21 16 Respiratory Effort / Characteristics Non-Labored Spontaneous Non-Labored Spontaneous Short of Breath Respiratory Depth Normal Blood Pressure 181/105 H 185/100 H Blood Pressure Mean 130 128 Blood Pressure Position Sitting Pulse Oximetry 98 95 Oxygen Delivery Method Room Air Room Air Oxygen Flow Rate Sepsis Recent Fever Within 48 Hours No Sepsis New/Unexplained Change in Mental Status N/A Sepsis Action Taken by Nursing No Action Required 11/02/22 08:20 11/02/22 07:30 11/02/22 08:51 Temperature Temperature Source Pulse Rate 89 93 H 88 Pulse Rate from SpO2 Sensor 88 Respiratory Rate 18 Respiratory Effort / Characteristics Respiratory Depth Blood Pressure 180/101 H Blood Pressure Mean 127 Blood Pressure Position Pulse Oximetry 97 Oxygen Delivery Method Room Air Oxygen Flow Rate Sepsis Recent Fever Within 48 Hours Sepsis New/Unexplained Change in Mental Status Sepsis Action Taken by Nursing 11/02/22 09:22 Temperature Temperature Source Pulse Rate 89 Pulse Rate from SpO2 Sensor 87 Respiratory Rate 20 Respiratory Effort / Characteristics Respiratory Depth Blood Pressure 171/94 H Blood Pressure Mean 119 Blood Pressure Position Pulse Oximetry 96 Oxygen Delivery Method Nasal Cannula Oxygen Flow Rate 2 Sepsis Recent Fever Within 48 Hours Sepsis New/Unexplained Change in Mental Status Sepsis Action Taken by Nursing Laboratory Data 11/02/22 07:05 11/02/22 12:53 Lab Results 11/02/22 11/02/22 11/02/22 Range/Units 07:05 07:05 07:05 WBC 6.36 (4.8-10.8) K/ul RBC 3.75 L (4.70-6.10) M/uL Hgb 11.3 L (14.0-18.0) g/dl Hct 33.3 L (42.0-52.0) % MCV 88.8 (80.0-100.0) fL MCH 30.1 (25.0-34.0) pg MCHC 33.9 (32.0-36.0) g/dL RDW Std Deviation 46.9 H (36.4-46.3) fL RDW Coeff of Yuki 14.6 H (11.5-14.5) % Plt Count 183 (130-400) K/uL MPV 11.1 (9.4-12.4) fL Immature Gran % (Auto) 0.3 % Neut % (Auto) 73.8 % Lymph % (Auto) 16.2 % [place]ell % (Auto) 8.0 % Eos % (Auto) 1.4 % Baso % (Auto) 0.3 % Neut # (Auto) 4.69 (1.40-6.50) K/uL Lymph # (Auto) 1.03 L (1.2-3.4) K/uL Cabell # (Auto) 0.51 (0.11-0.59) K/uL Eos # (Auto) 0.09 (0-0.50) K/uL Baso # (Auto) 0.02 (0-0.2) K/uL Immature Gran # (Auto) 0.02 (0.01-0.20) K/uL PT 10.8 (9.0-12.0) Seconds INR 1.0 (0.9-1.1) APTT 27.1 (21.0-31.0) Seconds PTT Ratio 1.0 Sodium (136-145) mmol/L Potassium (3.5-5.1) mmol/L Chloride (98-107) mmol/L Carbon Dioxide (21-32) mmol/L Anion Gap (3-11) BUN (6-23) mg/dl Creatinine (0.6-1.4) mg/dl Est Cr Clr Drug Dosing ml/min Est GFR ( Amer) ml/min Est GFR (Non-Af Amer) ml/min BUN/Creatinine Ratio (10-20) Glucose (70-99(Fasting)) mg/dl Calcium (8.6-10.3) mg/dl Magnesium (1.7-2.4) mg/dl Total Bilirubin (0.2-1.0) mg/dl Direct Bilirubin (0-0.2) mg/dl AST (13-39) U/L ALT (7-52) U/L Alkaline Phosphatase (34-104) U/L Troponin I High Sens (0-20) pg/ml Total Protein (6.0-8.3) gm/dl Albumin (3.4-5.0) gm/dl TSH 4.991 H (0.300-4.500) uIu/ml Free T4 (0.61-1.60) ng/dl Free T3 (2.3-4.2) pg/ml SARS-CoV-2, RNA, NAAT (NEGATIVE) 11/02/22 11/02/22 11/02/22 Range/Units 07:05 07:05 07:05 WBC (4.8-10.8) K/ul RBC (4.70-6.10) M/uL Hgb (14.0-18.0) g/dl Hct (42.0-52.0) % MCV (80.0-100.0) fL MCH (25.0-34.0) pg MCHC (32.0-36.0) g/dL RDW Std Deviation (36.4-46.3) fL RDW Coeff of Yuki (11.5-14.5) % Plt Count (130-400) K/uL MPV (9.4-12.4) fL Immature Gran % (Auto) % Neut % (Auto) % Lymph % (Auto) % [place] % (Auto) % Eos % (Auto) % Baso % (Auto) % Neut # (Auto) (1.40-6.50) K/uL Lymph # (Auto) (1.2-3.4) K/uL Cabell # (Auto) (0.11-0.59) K/uL Eos # (Auto) (0-0.50) K/uL Baso # (Auto) (0-0.2) K/uL Immature Gran # (Auto) (0.01-0.20) K/uL PT (9.0-12.0) Seconds INR (0.9-1.1) APTT (21.0-31.0) Seconds PTT Ratio Sodium 135 L (136-145) mmol/L Potassium 4.7 (3.5-5.1) mmol/L Chloride 90 L (98-107) mmol/L Carbon Dioxide 33 H (21-32) mmol/L Anion Gap 12 H (3-11) BUN 39 H (6-23) mg/dl Creatinine 6.16 H* (0.6-1.4) mg/dl Est Cr Clr Drug Dosing 20.1 ml/min Est GFR ( Amer) 12.0 ml/min Est GFR (Non-Af Amer) 10.3 ml/min BUN/Creatinine Ratio 6.3 L (10-20) Glucose 485 H* (70-99(Fasting)) mg/dl Calcium 9.1 (8.6-10.3) mg/dl Magnesium 1.7 (1.7-2.4) mg/dl Total Bilirubin 0.8 (0.2-1.0) mg/dl Direct Bilirubin 0.2 (0-0.2) mg/dl AST 15 (13-39) U/L ALT 14 (7-52) U/L Alkaline Phosphatase 170 H (34-104) U/L Troponin I High Sens 22.9 H (0-20) pg/ml Total Protein 7.6 (6.0-8.3) gm/dl Albumin 4.0 (3.4-5.0) gm/dl TSH (0.300-4.500) uIu/ml Free T4 1.07 (0.61-1.60) ng/dl Free T3 2.94 (2.3-4.2) pg/ml SARS-CoV-2, RNA, NAAT (NEGATIVE) 11/02/22 Range/Units 07:16 WBC (4.8-10.8) K/ul RBC (4.70-6.10) M/uL Hgb (14.0-18.0) g/dl Hct (42.0-52.0) % MCV (80.0-100.0) fL MCH (25.0-34.0) pg MCHC (32.0-36.0) g/dL RDW Std Deviation (36.4-46.3) fL RDW Coeff of Yuki (11.5-14.5) % Plt Count (130-400) K/uL MPV (9.4-12.4) fL Immature Gran % (Auto) % Neut % (Auto) % Lymph % (Auto) % [place]ell % (Auto) % Eos % (Auto) % Baso % (Auto) % Neut # (Auto) (1.40-6.50) K/uL Lymph # (Auto) (1.2-3.4) K/uL [place]ell # (Auto) (0.11-0.59) K/uL Eos # (Auto) (0-0.50) K/uL Baso # (Auto) (0-0.2) K/uL Immature Gran # (Auto) (0.01-0.20) K/uL PT (9.0-12.0) Seconds INR (0.9-1.1) APTT (21.0-31.0) Seconds PTT Ratio Sodium (136-145) mmol/L Potassium (3.5-5.1) mmol/L Chloride (98-107) mmol/L Carbon Dioxide (21-32) mmol/L Anion Gap (3-11) BUN (6-23) mg/dl Creatinine (0.6-1.4) mg/dl Est Cr Clr Drug Dosing ml/min Est GFR ( Amer) ml/min Est GFR (Non-Af Amer) ml/min BUN/Creatinine Ratio (10-20) Glucose (70-99(Fasting)) mg/dl Calcium (8.6-10.3) mg/dl Magnesium (1.7-2.4) mg/dl Total Bilirubin (0.2-1.0) mg/dl Direct Bilirubin (0-0.2) mg/dl AST (13-39) U/L ALT (7-52) U/L Alkaline Phosphatase (34-104) U/L Troponin I High Sens (0-20) pg/ml Total Protein (6.0-8.3) gm/dl Albumin (3.4-5.0) gm/dl TSH (0.300-4.500) uIu/ml Free T4 (0.61-1.60) ng/dl Free T3 (2.3-4.2) pg/ml SARS-CoV-2, RNA, NAAT NEGATIVE (NEGATIVE) Administered Medications Calcium Acetate (Calcium Acetate 667 Mg Cap/Tab) 2,001 mg PO TIDM CHASE Stop: 12/02/22 11:59 Last Admin: 11/02/22 12:46 Dose: 2,001 mg Documented By: MTP Insulin Aspart (Insulin Aspart Per Unit Charge) 0 units SC ACHS CHASE Stop: 12/02/22 11:29 Last Admin: 11/02/22 12:43 Dose: 24 units Documented By: SASKIA Co-signed By: MEGAN Discontinued Medications Carvedilol (Carvedilol 6.25 Mg Tab) 6.25 mg PO BID CHASE Stop: 12/02/22 11:35 Last Admin: 11/02/22 12:45 Dose: 6.25 mg Documented By: SASKIA Insulin Human Regular 10 units (/ Syringe) 10 mls @ 30 mls/min IV NOW ONE Stop: 11/02/22 08:41 Last Admin: 11/02/22 09:20 Dose: 30 mls/min Documented By: JANET Co-signed By: SASKIA(2) Insulin Glargine (Lantus Per Unit Charge) 25 units SC ONE ONE Stop: 11/02/22 12:31 Last Admin: 11/02/22 12:42 Dose: 25 units Documented By: SASKIA Co-signed By: MEGAN Metoprolol Tartrate (Metoprolol Tartrate 1 Mg/Ml Vial) 5 mg IV NOW STA Stop: 11/02/22 07:09 Last Admin: 11/02/22 07:14 Dose: 5 mg Documented By: JANET Imaging Data Radiologist's Impression: Chest X-Ray 11/02/22 07:09 XR chest 1V portable HISTORY: Shortness of breath. palpitations COMPARISON: Chest 08/24/2022. FINDINGS: No pneumothorax. No pleural effusions. The cardiac silhouette remains mildly enlarged. No new focal lung consolidations to suggest a pneumonia. There is mild pulmonary vascular congestion without overt edema. This is similar to the prior study. No acute fractures identified. IMPRESSION: Cardiomegaly with mild congestive change. This is similar to the prior study. ACT 112: Negative or not required by law. Electronically signed by: Gordo Kaye M.D. 11/02/2022 8:20 AM Discharge Plan Visit Data Chief Complaint: Arrhythmia/Palpitations Stated Complaint: Tachycardia, AFIB, SOB ED Provider: Alejandro Castro Discharge Problem: Atrial fibrillation with rapid ventricular response, Acute hyperglycemia Patient Disposition: Admitted As Inpatient Discharge Instructions Interventions: ED Discharge Assessment Last Done: 11/02/22 10:34
[2022-11-02 07:23] LABS: Basophils # (auto) 0.02 K/uL (0-0.2); Basophils % (auto) 0.3 %; Eosinophils # (auto) 0.09 K/uL (0-0.50); Eosinophils % (auto) 1.4 %; Hematocrit (blood only) 33.3 % (42.0-52.0); Hemoglobin 11.3 g/dl (14.0-18.0); Immature Granulocytes # (auto) 0.02 K/uL (0.01-0.20); Immature Granulocytes % (auto) 0.3 %; Lymphocytes # (auto) 1.03 K/uL (1.2-3.4); Lymphocytes % (auto) 16.2 %; Mean Corpuscular Hemoglobin 30.1 pg (25.0-34.0); Mean Corpuscular Hgb Conc 33.9 g/dL (32.0-36.0); Mean Corpuscular Volume 88.8 fL (80.0-100.0); Mean Platelet Volume 11.1 fL (9.4-12.4); Monocytes # (auto) 0.51 K/uL (0.11-0.59); Neutrophils # (auto) 4.69 K/uL (1.40-6.50); Neutrophils % (auto) 73.8 %; Platelet Count 183 K/uL (130-400); RDW Coefficient of Variation 14.6 % (11.5-14.5); RDW Standard Deviation 46.9 fL (36.4-46.3); Red Blood Count 3.75 M/uL (4.70-6.10); White Blood Count 6.36 K/ul (4.8-10.8)
[2022-11-02 07:44] LABS: Partial Thromboplastin Time 27.1 Seconds (21.0-31.0); Prothrombin Time 10.8 Seconds (9.0-12.0)
[2022-11-02 08:00] LABS: BUN Creatinine Ratio 6.3 (10-20); Bilirubin Direct 0.2 mg/dl (0-0.2); Bilirubin,Total 0.8 mg/dl (0.2-1.0); Calcium 9.1 mg/dl (8.6-10.3); Creatinine Clr Calc Pharmacy 20.1 ml/min; Est GFR (Non-African American) 10.3 ml/min; Magnesium 1.7 mg/dl (1.7-2.4); Potassium 4.7 mmol/L (3.5-5.1); Total Protein 7.6 gm/dl (6.0-8.3); Troponin I High Sensitivity 22.9 pg/ml (0-20)
[2022-11-02] MEDS ORDERED: INSULIN HUMAN REGULAR IV STA (08:07)
--- NOTE | 2022-11-02 08:21 | XRay Report ---
XR chest 1V portable HISTORY: Shortness of breath. palpitations COMPARISON: Chest 08/24/2022. FINDINGS: No pneumothorax. No pleural effusions. The cardiac silhouette remains mildly enlarged. No n ew focal lung consolidations to suggest a pneumonia. There is mild pulmonary vascular congestion with out overt edema. This is similar to the prior study. No acute fractures identified. IMPRESSION: Cardiomegaly with mild congestive change. This is similar to the prior study. ACT 112: Negative or not required by law. Electronically signed by: Gordo Kaye M.D. 11/02/2022 8:20 AM
[2022-11-02] MEDS ORDERED: PHARMACY GLYCEMIC MGMT CONSULT PRN (08:37)
[2022-11-02] MEDS ORDERED: INSULIN HUMAN REGULAR PER UNIT 10 UNITS in SYRINGE 9.9 ML IV ONE (08:40)
--- NOTE | 2022-11-02 08:40 | History & Physical Report ---
Date of Service November 02, 2022 Assessment & Plan (1) SOB (shortness of breath): Plan: Sent from HD for SOB after 1.5hr session, found to be in afib/RVR with rates to 140-160s. ER provider given lopressor with reduction in rate. Multifactorial: suspect dietary indescretion at home/hyperglycemia (reports BSGs 3-400s at home), med non-complaince (TSH elevated, reports has been out of synthoid for several months) as well as possible underlying paroxysmal atrial fibrillation given he reports fluttering sensation/SOB when "drinking too much soda" however given not taking synthroid could be going in/out, but also contribtuing to increased weight gain. Weight 129.5kg on admission - reports dry weight ~128kg on bumex 2mg QAM, 4mg QPM Admit PCU w/ telemetry Trend troponin -- denying chest pain at present, suspect demand ischemia - multifactorial. Intiail trop 22 on high sensitivity troponin Check ECHO given +murmur on exam Cardiology consulted -- increased carvedilol. Messaged given pt not taking his Synthroid as well as not prior mentioned in their note, agreed to restart such Eliquis 5mg BID to be started tonight -- on HD M/W/F - defer to nephro if wanting reduced dose Recs to increase carvedilol to 12.5mg BID -- increased for this evening Nephrology consulted given ESRD on HD/volume overload -- ? finishing HD session for today as previously was to have done Increased bumex to 4mg BID for now -- defer further adjustment acutely to nephro Supplemental O2 to maintain sats -- placed on 2L NC after evaluation daily weights I&O low salt diet Can fluid restrict as well if needed -- will monitor for now (2) Atrial fibrillation: Plan: no prior hx, ? from hypothyroidism -- not taking meds monitoring on telemetry eliquis ordered 5mg BID for now -- defer f/u eval once seen by Dr Marie -- ?afib vs aflutter keep K~4/mag ~2 scott order 1gm IV mag, monitor levels on repeat (3) ESRD (end stage renal disease): Plan: on HD M/W/F - session cut early today as above states still makes urine, bumex increased to 4mg BID for now Nephrology consulted, messaged this mornign for possible need for HD session for today -- appreciate assistance w/ volume management renal dose meds/avoid nephrotoxins as able Monitor BMp on repeat (4) CHF (congestive heart failure): Plan: volume overloaded "Dry weight" reported at 128kg, and was about 1.5kg above on arrival suspect diet at home, hypothyroidism, also possible pasyxmal afib contributing Cards consulted as above, echo ordered, trend trop as above bumex 4mg BID, monitor weights/I&O, AHA/low salt diet CHF ref (5) Hypothyroidism: Plan: TSH elevated but normal T4/t3 on check, however of note patient reports he has not had this medication for several months resumed synthroid 50mcg and will need new rx at discharge (6) Hyperglycemia due to diabetes mellitus: Plan: BSGs to 400s on arrival w/ elevated anion gap, volume overloaded no DKA on exam, diuretics ordered. avoiding IVF given volume overload monitor repeat BMP this afternoon w/ bumex pharmacy consulted for glycemic management -- discussed initially and was going to do lantus 60mg BID, tight CR/CF and just sign off glycemic consult however other pharmacist prefers to follow along given prior inpatient stays Given 10u IV insulin in ER (patient took levemir 28u this AM because he forgot to take basal last night) Plan for inpatient management at present: Lantus 20-30SQ BID of basal and for bolus range BSG 110-140 with CF 15 and CR 11:5 DM educator consulted A1c ordered for AM Monitor BSGs (7) Anemia: Plan: hgb at baseline (8) Elevated troponin: Plan: suspect demand from volume overload/hyperglycemia/afib rvr betablocker, diuretics ordered monitor on repeat EKG w/ CP monitor on telemetry (9) Uncontrolled type 1 diabetes mellitus with kidney complication, with long- term current use of insulin: Plan: suspect dietary issues at home/soda/etc DM educator consulted, a1c ordered for AM (10) Diabetic nephropathy: Plan: ESRD on HD, Nephro consulted as above History of Present Illness Chief Complaint: SOB, AFIB RVR Primary Care Provider: Maki Peterson MD 42yo presented w/ SOB and palpitations found to be possibly in afib w/ RVR with HRs to 150-160s and given Lopressor by ER provider with break and rates maintaining in the 90s. He is ESRD on HD M/W/F. Also type I DM and BSGs to 460s on admission, provided 10u insulin. Eval this morning. States he had about 2hours of his HD treatment this morning. Discussed labs/volume status and likely need for repeat HD session for today. Believes dry weight ~128kg. Currently 129.6kg, up about 2.5kg from baseline. Takes 1 bumex in AM, 2 tablets at night. Reports still makes urine, especially when his sugars are high. Endorses sugars typically in the 300-400 range at home. Has had some palpitations/fluttering sensation in the past but reports this is when he drinks a lot of soda and he takes an extra carvedilol and lays down and this typically helps. Less palpitaions now that his rates are improved but still endorsing some shortness of breath and placed on 2L NC. No hx AMELIA, but endorses daytime fatigu e/sleepiness. +Cough, no fever/chills. States his phlegm is ALWAYS clear. Chronic dry skin/flaking from compression w/ edema in the past. Using cerovite. Discussed wound consult and possible amlactin to soften and assist with findings to b/l ankles/feet. No abdominal pain/nausea reported but does have chronic constipation, dry skin. Notes that he has been out of his Synthroid for a couple months. States after discussion of undertreated hypothyroidism/risk for afib/fluid retention/anemia/etc...he notes no one had ever discussed this. Will ensure he has new rx at discharge. Discussed code status - he is a level 1. Wants everything done if needed. CXR w/ cardiomegaly w/ mild congestive change, similar to prior. WBC wnl, hgb stable compared to priors. Na low 135, Chl 90, Bicarb elevated to 3 3, anion gap 12, BUN/Cr 39/6.16, glucose 485. Mag 1.7. TB wnl, ALP 170. Trop 22.9 on initial draw. TSH elevated to 4.991 Order placed for supplemental O2 as needed, bumex to be increased to 4mg PO BID given reported making urine for now and will consult Nephrology for possible HD today given elevated anion gap/volume overload to see if additional treatment sesstion for today. Cardiology to be consulted for afib/RVR, AC Questions/concerns addressed at this time. Allergies Allergy/AdvReac Type Severity Reaction Status Date / Time lisinopril AdvReac Intermediate COUGH Verified 11/02/22 10:13 Home Medications Medication Instructions Recorded Confirmed Type David Deljuan Lancets 33 gauge #400 ea 10/16/19 09/07/22 Rx (lancets) blood sugar diagnostic (OneTouch #400 ea 01/29/20 09/07/22 Rx Verio test strips) blood-glucose meter (OneTouch #1 ea 01/29/20 09/07/22 Rx Verio Flex Meter) acetone (urine) test (Ketostix #100 ea 02/18/20 09/07/22 Rx strips) pen needle, diabetic 29 gauge x #400 ea 01/25/21 09/07/22 Rx 1/2" (Comfort EZ Pen [place]) blood-glucose transmitter (Dexcom #1 ea 12/13/21 09/07/22 Rx G6 Transmitter device) cinacalcet 60 mg tablet (Sensipar) 60 mg PO HS 01/09/22 11/02/22 History aspirin 81 mg tablet,delayed 81 mg PO QPM 01/18/22 11/02/22 History release atorvastatin 80 mg tablet (Lipitor) 80 mg PO HS 01/18/22 11/02/22 History levothyroxine 50 mcg tablet 50 mcg PO QAM 01/18/22 11/02/22 History (Synthroid) bumetanide 2 mg tablet See Rx Instructions .Route 04/25/22 11/02/22 Rx .COMPLEX #270 tabs blood-glucose meter,continuous #1 ea 05/25/22 09/07/22 Rx (Dexcom G6 Housekeeping Aid) blood-glucose sensor (Dexcom G6 #3 ea 05/25/22 09/07/22 Rx Sensor device) duloxetine 60 mg capsule,delayed 60 mg PO QAM #90 caps 05/25/22 11/02/22 Rx release (Cymbalta) pantoprazole 40 mg tablet,delayed 40 mg PO QAM #90 tabs 05/25/22 11/02/22 Rx release (Protonix) vit B,C-folic ac 800 mcg-zinc 12.5 1 tab PO DAILY #30 tabs 06/29/22 11/02/22 Rx mg-selen-D3 2,000 unit-vit E tablet (RenaPlex-D) calcium acetate(phosphat bind) 667 0 mg PO TID 08/22/22 11/02/22 History mg capsule sucroferric oxyhydroxide 500 mg 0 mg PO TID 08/22/22 11/02/22 History chewable tablet (Velphoro) carvedilol 6.25 mg tablet 6.25 mg PO BID #60 tabs 08/24/22 11/02/22 Rx insulin aspart U-100 100 unit/mL 60 unit (0.6 mL) subcut TID 90 09/10/22 11/02/22 Rx (3 mL) subcutaneous pen days #162 mL gabapentin 300 mg capsule 600 mg PO BID #360 caps 10/24/22 11/02/22 Rx (Neurontin) insulin detemir U-100 100 unit/mL 0 unit subcut PM 11/02/22 11/02/22 History (3 mL) subcutaneous pen Past Med/Surg History Medical History (Updated 11/02/22 @ 16:13 by Alejandro Castro MD) Chronic venous insufficiency Depression Diabetic peripheral neuropathy associated with type 1 diabetes mellitus Diabetic retinopathy Erectile dysfunction ESRD (end stage renal disease) requiring hemodialysis. MWF at [facility]. ESRD (end stage renal disease) GERD (gastroesophageal reflux disease) Well controlled and stable H/O febrile seizure as a child (every year until he was 11 years old) no problems since. High cholesterol History of COVID-19 DX'D [facility] 04/28/21 COUGH-HOSPITALIZED X 1 DAY-RECOVERED AT HOME-RESOLVED Hyperosmolar hyperglycemic state (HHS) Hypertension Hypothyroidism Renal failure Thrombosis of arteriovenous dialysis fistula (~02/15/20) Type 1 diabetes Surgical History H/O detached retina repair History of esophagogastroduodenoscopy (EGD) S/P arteriovenous (AV) fistula creation left side, unable to use Family History Mother Diabetes Coronary heart disease Hypertension Father Coronary heart disease Hypertension Brother Coronary heart disease Kidney disease Uncle Colorectal cancer Grandmother Diabetes Aunt Diabetes Unknown Dyslipidemia Grandfather (Maternal) Diabetes Other Cancer No family history of adverse response to anesthesia Social History Smoking Status: Never smoker Second Hand Exposure: No; Do You Dip or Chew Tobacco: No; Tobacco Cessation Education Requested by Patient: No Hx Alcohol Use: No Hx Substance Use: No Preferred Language: Japanese Communication Ability: Effective Visual Impairment: No Limitations Hearing Ability: Normal 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 Beliefs That Will Affect Care: None marital status: Single Current Living Situation: Alone Current Living Situation Comment: Brother 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" How many Children do You have: 0 Other Information That Helps Us Care for You: No Feels Safe at Home: Yes Safety Concerns: Feels Safe At This Time Dental Care, Regularly: No Physical Activity Frequency: Does not Exercise Seatbelt Use: always Sunscreen Use: No Assistive Devices: Cane Assistive Devices Comment: Cane when out of the house Review of Systems Review of Systems: All systems reviewed & are unremarkable except as noted in HPI & below Physical Exam Physical Exam: General: chronically ill appearing male sitting up in bed in the emergency department, NAD but reporting fatigue/shortness of breath, SpO2 90% HEENT: head normocephalic, thick neck, trachea midline without deviation, mmm Resp: diminished in the bases, faint exp wheezing, no crackles/rales, on room air, +occasional cough CV: irregular rhythm, rates 90s, ?S3, +systolic murmur, b/l LE edema, calves nontender, pulses diminished but palpable GI: +BS, +distension but soft/NT ; no man MSK/Neuro: no focal deficit, no slurred speech, follows commands, strength intact bilaterally Psych: AOx3 , cooperative with exam, fatigued appearing Skin: perfused, flaking of skin to b/l ankles/feet along with erythema (reporting chronic), nontender to palpation Results & Data Results & Data Vital Signs (Past 12 Hours) Vital Signs Temp Pulse Resp BP Pulse Ox O2 Del Method 11/02/22 08:20 89 11/02/22 07:43 93 H 16 185/100 H 95 Room Air 11/02/22 07:04 36.9 C 144 H 21 181/105 H 98 Room Air Laboratory Results 07/14/23 07/14/23 07/14/23 Range/Units 12:53 12:11 12:08 WBC (4.8-10.8) K/ul RBC (4.70-6.10) M/uL Hgb (14.0-18.0) g/dl Hct (42.0-52.0) % MCV (80.0-100.0) fL MCH (25.0-34.0) pg MCHC (32.0-36.0) g/dL RDW Std Deviation (36.4-46.3) fL RDW Coeff of Yuki (11.5-14.5) % Plt Count (130-400) K/uL MPV (9.4-12.4) fL Immature Gran % (Auto) % Neut % (Auto) % Lymph % (Auto) % [place] % (Auto) % Eos % (Auto) % Baso % (Auto) % Neut # (Auto) (1.40-6.50) K/uL Lymph # (Auto) (1.2-3.4) K/uL [place] # (Auto) (0.11-0.59) K/uL Eos # (Auto) (0-0.50) K/uL Baso # (Auto) (0-0.2) K/uL Immature Gran # (Auto) (0.01-0.20) K/uL PT (9.0-12.0) Seconds INR (0.9-1.1) APTT (21.0-31.0) Seconds PTT Ratio Sodium 132 L (136-145) mmol/L Potassium 4.5 (3.5-5.1) mmol/L Chloride 90 L (98-107) mmol/L Carbon Dioxide 31 (21-32) mmol/L Anion Gap 11 (3-11) BUN 42 H (6-23) mg/dl Creatinine 6.99 H* D (0.6-1.4) mg/dl Est Cr Clr Drug Dosing 17.5 ml/min Est GFR ( Amer) 10.3 ml/min Est GFR (Non-Af Amer) 8.9 ml/min BUN/Creatinine Ratio 6.0 L (10-20) Glucose 393 H* (70-99(Fasting)) mg/dl POC Glucose 345 H* 352 H* (70-99) mg/dl Calcium 8.8 (8.6-10.3) mg/dl Magnesium (1.7-2.4) mg/dl Total Bilirubin (0.2-1.0) mg/dl Direct Bilirubin (0-0.2) mg/dl AST (13-39) U/L ALT (7-52) U/L Alkaline Phosphatase (34-104) U/L Troponin I High Sens 19.0 (0-20) pg/ml Total Protein (6.0-8.3) gm/dl Albumin (3.4-5.0) gm/dl TSH (0.300-4.500) uIu/ml Free T4 (0.61-1.60) ng/dl Free T3 (2.3-4.2) pg/ml SARS-CoV-2, RNA, NAAT (NEGATIVE) 11/02/22 11/02/22 11/02/22 Range/Units 10:10 07:16 07:05 WBC (4.8-10.8) K/ul RBC (4.70-6.10) M/uL Hgb (14.0-18.0) g/dl Hct (42.0-52.0) % MCV (80.0-100.0) fL MCH (25.0-34.0) pg MCHC (32.0-36.0) g/dL RDW Std Deviation (36.4-46.3) fL RDW Coeff of Yuki (11.5-14.5) % Plt Count (130-400) K/uL MPV (9.4-12.4) fL Immature Gran % (Auto) % Neut % (Auto) % Lymph % (Auto) % [place] % (Auto) % Eos % (Auto) % Baso % (Auto) % Neut # (Auto) (1.40-6.50) K/uL Lymph # (Auto) (1.2-3.4) K/uL [place] # (Auto) (0.11-0.59) K/uL Eos # (Auto) (0-0.50) K/uL Baso # (Auto) (0-0.2) K/uL Immature Gran # (Auto) (0.01-0.20) K/uL PT (9.0-12.0) Seconds INR (0.9-1.1) APTT (21.0-31.0) Seconds PTT Ratio Sodium (136-145) mmol/L Potassium (3.5-5.1) mmol/L Chloride (98-107) mmol/L Carbon Dioxide (21-32) mmol/L Anion Gap (3-11) BUN (6-23) mg/dl Creatinine (0.6-1.4) mg/dl Est Cr Clr Drug Dosing ml/min Est GFR ( Amer) ml/min Est GFR (Non-Af Amer) ml/min BUN/Creatinine Ratio (10-20) Glucose (70-99(Fasting)) mg/dl POC Glucose 346 H* (70-99) mg/dl Calcium (8.6-10.3) mg/dl Magnesium (1.7-2.4) mg/dl Total Bilirubin (0.2-1.0) mg/dl Direct Bilirubin (0-0.2) mg/dl AST (13-39) U/L ALT (7-52) U/L Alkaline Phosphatase (34-104) U/L Troponin I High Sens (0-20) pg/ml Total Protein (6.0-8.3) gm/dl Albumin (3.4-5.0) gm/dl TSH (0.300-4.500) uIu/ml Free T4 (0.61-1.60) ng/dl Free T3 2.94 (2.3-4.2) pg/ml SARS-CoV-2, RNA, NAAT NEGATIVE (NEGATIVE) 11/02/22 11/02/22 11/02/22 Range/Units 07:05 07:05 07:05 WBC 6.36 (4.8-10.8) K/ul RBC 3.75 L (4.70-6.10) M/uL Hgb 11.3 L (14.0-18.0) g/dl Hct 33.3 L (42.0-52.0) % MCV 88.8 (80.0-100.0) fL MCH 30.1 (25.0-34.0) pg MCHC 33.9 (32.0-36.0) g/dL RDW Std Deviation 46.9 H (36.4-46.3) fL RDW Coeff of Yuki 14.6 H (11.5-14.5) % Plt Count 183 (130-400) K/uL MPV 11.1 (9.4-12.4) fL Immature Gran % (Auto) 0.3 % Neut % (Auto) 73.8 % Lymph % (Auto) 16.2 % [place] % (Auto) 8.0 % Eos % (Auto) 1.4 % Baso % (Auto) 0.3 % Neut # (Auto) 4.69 (1.40-6.50) K/uL Lymph # (Auto) 1.03 L (1.2-3.4) K/uL [place] # (Auto) 0.51 (0.11-0.59) K/uL Eos # (Auto) 0.09 (0-0.50) K/uL Baso # (Auto) 0.02 (0-0.2) K/uL Immature Gran # (Auto) 0.02 (0.01-0.20) K/uL PT (9.0-12.0) Seconds INR (0.9-1.1) APTT (21.0-31.0) Seconds PTT Ratio Sodium 135 L (136-145) mmol/L Potassium 4.7 (3.5-5.1) mmol/L Chloride 90 L (98-107) mmol/L Carbon Dioxide 33 H (21-32) mmol/L Anion Gap 12 H (3-11) BUN 39 H (6-23) mg/dl Creatinine 6.16 H* (0.6-1.4) mg/dl Est Cr Clr Drug Dosing 20.1 ml/min Est GFR ( Amer) 12.0 ml/min Est GFR (Non-Af Amer) 10.3 ml/min BUN/Creatinine Ratio 6.3 L (10-20) Glucose 485 H* (70-99(Fasting)) mg/dl POC Glucose (70-99) mg/dl Calcium 9.1 (8.6-10.3) mg/dl Magnesium 1.7 (1.7-2.4) mg/dl Total Bilirubin 0.8 (0.2-1.0) mg/dl Direct Bilirubin 0.2 (0-0.2) mg/dl AST 15 (13-39) U/L ALT 14 (7-52) U/L Alkaline Phosphatase 170 H (34-104) U/L Troponin I High Sens 22.9 H (0-20) pg/ml Total Protein 7.6 (6.0-8.3) gm/dl Albumin 4.0 (3.4-5.0) gm/dl TSH (0.300-4.500) uIu/ml Free T4 1.07 (0.61-1.60) ng/dl Free T3 (2.3-4.2) pg/ml SARS-CoV-2, RNA, NAAT (NEGATIVE) 11/02/22 11/02/22 Range/Units 07:05 07:05 WBC (4.8-10.8) K/ul RBC (4.70-6.10) M/uL Hgb (14.0-18.0) g/dl Hct (42.0-52.0) % MCV (80.0-100.0) fL MCH (25.0-34.0) pg MCHC (32.0-36.0) g/dL RDW Std Deviation (36.4-46.3) fL RDW Coeff of Yuki (11.5-14.5) % Plt Count (130-400) K/uL MPV (9.4-12.4) fL Immature Gran % (Auto) % Neut % (Auto) % Lymph % (Auto) % [place] % (Auto) % Eos % (Auto) % Baso % (Auto) % Neut # (Auto) (1.40-6.50) K/uL Lymph # (Auto) (1.2-3.4) K/uL [place] # (Auto) (0.11-0.59) K/uL Eos # (Auto) (0-0.50) K/uL Baso # (Auto) (0-0.2) K/uL Immature Gran # (Auto) (0.01-0.20) K/uL PT 10.8 (9.0-12.0) Seconds INR 1.0 (0.9-1.1) APTT 27.1 (21.0-31.0) Seconds PTT Ratio 1.0 Sodium (136-145) mmol/L Potassium (3.5-5.1) mmol/L Chloride (98-107) mmol/L Carbon Dioxide (21-32) mmol/L Anion Gap (3-11) BUN (6-23) mg/dl Creatinine (0.6-1.4) mg/dl Est Cr Clr Drug Dosing ml/min Est GFR ( Amer) ml/min Est GFR (Non-Af Amer) ml/min BUN/Creatinine Ratio (10-20) Glucose (70-99(Fasting)) mg/dl POC Glucose (70-99) mg/dl Calcium (8.6-10.3) mg/dl Magnesium (1.7-2.4) mg/dl Total Bilirubin (0.2-1.0) mg/dl Direct Bilirubin (0-0.2) mg/dl AST (13-39) U/L ALT (7-52) U/L Alkaline Phosphatase (34-104) U/L Troponin I High Sens (0-20) pg/ml Total Protein (6.0-8.3) gm/dl Albumin (3.4-5.0) gm/dl TSH 4.991 H (0.300-4.500) uIu/ml Free T4 (0.61-1.60) ng/dl Free T3 (2.3-4.2) pg/ml SARS-CoV-2, RNA, NAAT (NEGATIVE) Diagnostic Findings Chest X-Ray 11/02/22 07:09 XR chest 1V portable HISTORY: Shortness of breath. palpitations COMPARISON: Chest 08/24/2022. FINDINGS: No pneumothorax. No pleural effusions. The cardiac silhouette remains mildly enlarged. No new focal lung consolidations to suggest a pneumonia. There is mild pulmonary vascular congestion without overt edema. This is similar to the prior study. No acute fractures identified. IMPRESSION: Cardiomegaly with mild congestive change. This is similar to the prior study. ACT 112: Negative or not required by law. Electronically signed by: Gordo Kaye M.D. 11/02/2022 8:20 AM ECG Additional Comments: EKG with afib vs aflutter, rates 140bpm, ST/T wave abn lateral leads repeat EKG following Lopressor with sinus tachy/PACs, rate 101bpm, nonspec ST abn, less T wave inversion Supervising Physician Co-Signing Physician Notes The patient was seen by me. The chart was reviewed. Case discussed with cardiology and with KALA Castle. Agree with assessment and plan PG Care Time/CCT Total # of Minutes Spent Total Time Spent with Patient: Total time spent is greater than 50% in coordination of care (as documented) at patient's floor/unit and/or counseling patient: Coding Level of Care Code 18283 INT INP/OBS CARE 3/75MIN Diagnoses SOB (shortness of breath) R06.02 Atrial fibrillation I48.91 ESRD (end stage renal disease) N18.6 CHF (congestive heart failure) I50.9 Heart failure chronicity: acute Heart failure type: unspecified Hypothyroidism E03.9 Hypothyroidism type: unspecified Hyperglycemia due to diabetes mellitus E11.65 Anemia D64.9 Anemia type: unspecified type Elevated troponin R77.8 Uncontrolled type 1 diabetes mellitus with kidney complication, with long-term current use of insulin E10.29; E10.65 Diabetic nephropathy E11.21 (4) CHF (congestive heart failure) Heart failure chronicity: acute Heart failure type: unspecified Qualified Code(s): I50.9 - Heart failure, unspecified (5) Hypothyroidism Hypothyroidism type: unspecified Qualified Code(s): E03.9 - Hypothyroidism, unspecified (7) Anemia Anemia type: unspecified type Qualified Code(s): D64.9 - Anemia, unspecified
[2022-11-02] MEDS ORDERED: GLUCOSE 10 TAB/TUBE PO PRN ×2 (10:00→11:36)
[2022-11-02] MEDS ORDERED: DEXTROSE 50% 50 ML SYRINGE IV PRN ×2 (10:00→11:36)
[2022-11-02] MEDS ORDERED: CARBOHYDRATES FOR HYPOGLYCEMIA PO PRN ×2 (10:00→11:36)
[2022-11-02] MEDS ORDERED: GLUCOSE 40% GEL 15 GM TUBE PO PRN ×2 (10:00→11:36)
[2022-11-02] MEDS ORDERED: GLUCAGON FOR INJ 1 MG VIAL IM PRN (10:00)
--- NOTE | 2022-11-02 10:14 | Pharmacy Report ---
Pharmacy Glycemic Short Note 2 - Date of Service November 02, 2022 - Glycemic Short BSG Results (Last 24 hours): 11/02/22 07:05 Glucose 485 H* OUTPATIENT ANTIDIABETIC REGIMEN: * Levemir 60 units daily, Novolog ~30-60 units TID ASSESSMENT: * 42 year old presenting with SOB, concern for afib. Per notes, patient had about 2 hours of HD treatment this morning but was stopped early due to elevated HR. Patient also type 1 DM and BSGs in the 400s on arrival * Given 10 units IV bolus of insulin in the ER. RN checked with patient and he took Levemir 28 units this AM around ~0130 because he forgot to take his basal insulin last night. * Patient known to glycemic service from other admissions. BSGs tend to be very labile. Will see how BSGs trend after IV insulin dose - plan to start novolog stress of ~3 for now. Plan to start basal insulin 20-30 units bid (home dose listed as 60 units daily) PLAN FOR INPATIENT GLYCEMIC CONTROL: * Hold outpatient oral diabetes medications * Basal insulin * Lantus 20-30 units SQ BID * Bolus insulin * NovoLog per scale ACHS or Q6hrs while NPO * Goal Range: Low 110 mg/dL - High 140 mg/dL * Correction Factor: 15 mg/dL/unit * Nutritional / Prandial insulin per carb ratio of 1 unit per 5 grams CHO consumed
--- NOTE | 2022-11-02 10:33 | Cardiology Consultation ---
Date of Consultation November 02, 2022 Assessment & Plan (1) Atrial fibrillation: Patient history and ECG more suggestive of atrial fibrillation rather than atrial flutter. It appears that patient has responded to rate control efforts. May consider increasing home dose of Carvedilol to augment rate control moving forward. Patient may also benefit from chronic anticoagulation, particularly considering history of diabetes and ESRD. Given recent discontinuation of Synthroid, pt should be restarted on medication. Plan Atrial Fibrillation - restart Synthroid - consider increase in Carvedilol to 12.5 mg PO BID -apixaban 5mg twice daily Supervising Physician Co-Signing Physician Notes I saw on the value waited the patient with Dr. Ferraro and agree with the documentation above. Briefly, the patient has had some symptoms of palpitations over the past month. He has a relatively infrequent occurring perhaps twice monthly. This is manifest by sense of a rapid and irregular heartbeat. Today at dialysis he was noted to have tachycardia and was transported to the emergency room. There he was discovered to have what appeared to be in atrial flutter versus atrial fibrillation. This appeared to resolve spontaneously and he has maintained sinus rhythm since that time. Patient states that these symptoms usually resolve spontaneously after 20-30 minutes. Few associated symptoms. No other problems at dialysis recently. I reviewed his EKGs make the exact diagnosis difficult. One EKG certainly looks more organized and consistent with an atrial flutter. However, telemetry and other EKGs are more consistent with atrial fibrillation. I think the latter is more likely diagnosis given his left atrial enlargement and other comorbidities. Also, the fact that it resolved spontaneously is more suggestive of atrial fibrillation and flutter is the dominant arrhythmia. In any event, we will treat the arrhythmia the same in the short term. I would double his dose of carvedilol 12.5 mg daily. He does report some difficulty with higher doses of carvedilol during dialysis in the past. However, he has been quite hypertensive here. If he does have hypotension or difficulties with dialysis we may need to choose an alternate approach. I think he has enough risk factors to warrant systemic anticoagulation. I would recommend apixaban 5 mg twice daily. History of Present Illness Reason for Consultation: Palpitations, tachycardia History of Present Illness Pt is a 42 year old male with pertinent PMHx of diabetes, hypothyroidism, and ESRD on HD, presenting with worsening palpitations and dyspnea. Denies recent of current chest pain or syncope. Symptoms have been present intermittently for the past month, patient states that he sometimes takes an extra dose of Carvedilol which usually alleviates sx. He states that he took his regular dose of carvedilol this morning before going to his dialysis appointment. Patient reports that he started dialysis today but was discontinued part way due to heart rate in the 160s-180s. Pt denies prior diagnosis of A-fib or other arrhythmia. Pt given Lopressor in ED, achieved break, rates maintaining below 100. At time of evaluation, patient reports that he is feeling back to normal, denies palpitations or SOB. Of note, hospitalist note indicates that patient has been experiencing chronic constipation and dry skin, noted that he ran out of his synthroid a couple months ago and has not been able to refill it. Allergies Allergy/AdvReac Type Severity Reaction Status Date / Time lisinopril AdvReac Intermediate COUGH Verified 11/02/22 10:13 Home Medications Medication Instructions Recorded Confirmed Type OneTouch Delica Lancets 33 gauge #400 ea 10/16/19 09/07/22 Rx (lancets) blood sugar diagnostic (OneTouch #400 ea 01/29/20 09/07/22 Rx Verio test strips) blood-glucose meter (OneTouch #1 ea 01/29/20 09/07/22 Rx Verio Flex Meter) acetone (urine) test (Ketostix #100 ea 02/18/20 09/07/22 Rx strips) pen needle, diabetic 29 gauge x #400 ea 01/25/21 09/07/22 Rx 1/2" (Comfort EZ Pen [place]) blood-glucose transmitter (Dexcom #1 ea 12/13/21 09/07/22 Rx G6 Transmitter device) cinacalcet 60 mg tablet (Sensipar) 60 mg PO HS 01/09/22 11/02/22 History aspirin 81 mg tablet,delayed 81 mg PO QPM 01/18/22 11/02/22 History release atorvastatin 80 mg tablet (Lipitor) 80 mg PO HS 01/18/22 11/02/22 History levothyroxine 50 mcg tablet 50 mcg PO QAM 01/18/22 11/02/22 History (Synthroid) bumetanide 2 mg tablet See Rx Instructions .Route 04/25/22 11/02/22 Rx .COMPLEX #270 tabs blood-glucose meter,continuous #1 ea 05/25/22 09/07/22 Rx (Dexcom G6 Database Analyst) blood-glucose sensor (Dexcom G6 #3 ea 05/25/22 09/07/22 Rx Sensor device) duloxetine 60 mg capsule,delayed 60 mg PO QAM #90 caps 05/25/22 11/02/22 Rx release (Cymbalta) pantoprazole 40 mg tablet,delayed 40 mg PO QAM #90 tabs 05/25/22 11/02/22 Rx release (Protonix) vit B,C-folic ac 800 mcg-zinc 12.5 1 tab PO DAILY #30 tabs 06/29/22 11/02/22 Rx mg-selen-D3 2,000 unit-vit E tablet (RenaPlex-D) calcium acetate(phosphat bind) 667 0 mg PO TID 08/22/22 11/02/22 History mg capsule sucroferric oxyhydroxide 500 mg 0 mg PO TID 08/22/22 11/02/22 History chewable tablet (Velphoro) carvedilol 6.25 mg tablet 6.25 mg PO BID #60 tabs 08/24/22 11/02/22 Rx insulin aspart U-100 100 unit/mL 60 unit (0.6 mL) subcut TID 90 09/10/22 11/02/22 Rx (3 mL) subcutaneous pen days #162 mL gabapentin 300 mg capsule 600 mg PO BID #360 caps 10/24/22 11/02/22 Rx (Neurontin) insulin detemir U-100 100 unit/mL 0 unit subcut PM 11/02/22 11/02/22 History (3 mL) subcutaneous pen Patient History Medical History (Updated 11/02/22 @ 14:33 by Destiny Richards PA-C) Chronic venous insufficiency Depression Diabetic peripheral neuropathy associated with type 1 diabetes mellitus Diabetic retinopathy Erectile dysfunction ESRD (end stage renal disease) requiring hemodialysis. MWF at [facility]. ESRD (end stage renal disease) GERD (gastroesophageal reflux disease) Well controlled and stable H/O febrile seizure as a child (every year until he was 11 years old) no problems since. High cholesterol History of COVID-19 DX'D [facility] 04/28/21 COUGH-HOSPITALIZED X 1 DAY-RECOVERED AT HOME-RESOLVED Hyperosmolar hyperglycemic state (HHS) Hypertension Hypothyroidism Renal failure Thrombosis of arteriovenous dialysis fistula (~02/15/20) Type 1 diabetes Surgical History H/O detached retina repair History of esophagogastroduodenoscopy (EGD) S/P arteriovenous (AV) fistula creation left side, unable to use Family History Mother Diabetes Coronary heart disease Hypertension Father Coronary heart disease Hypertension Brother Coronary heart disease Kidney disease Uncle Colorectal cancer Grandmother Diabetes Aunt Diabetes Unknown Dyslipidemia Grandfather (Maternal) Diabetes Other Cancer No family history of adverse response to anesthesia Social History Smoking Status: Never smoker Second Hand Exposure: No; Do You Dip or Chew Tobacco: No; Tobacco Cessation Education Requested by Patient: No Hx Alcohol Use: No Hx Substance Use: No Preferred Language: Faroese Communication Ability: Effective Visual Impairment: No Limitations Hearing Ability: Normal Rim Fire Priming Tool Setter Required: No Beliefs That Will Affect Care: None marital status: Single Current Living Situation: Alone Current Living Situation Comment: Brother 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" How many Children do You have: 0 Other Information That Helps Us Care for You: No Feels Safe at Home: Yes Safety Concerns: Feels Safe At This Time Dental Care, Regularly: No Physical Activity Frequency: Does not Exercise Seatbelt Use: always Sunscreen Use: No Assistive Devices: Cane Assistive Devices Comment: Cane when out of the house Review of Systems Respiratory: denies dyspnea Cardiovascular: Additional Comments: denies chest pain, denies palpitations Physical Exam Physical Exam: WD/WN, no apparent distress Respiratory: lungs clear to auscultation bilaterally Cardiovascular: normal rate, irregular rhythm. distal pulses intact. lower extremity swelling consistent with h/o chronic venous insufficiency Results & Data Vital Signs (Past 12 Hours) Vital Signs Temp Pulse Resp BP Pulse Ox O2 Del Method O2 Flow Rate 11/02/22 10:26 88 22 160/98 H 98 Nasal Cannula 2 11/02/22 09:22 89 20 171/94 H 96 Nasal Cannula 2 11/02/22 08:51 88 18 180/101 H 97 Room Air 11/02/22 07:30 93 H 11/02/22 08:20 89 11/02/22 07:43 93 H 16 185/100 H 95 Room Air 11/02/22 07:04 36.9 C 144 H 21 181/105 H 98 Room Air Laboratory Results Abnormal lab results 11/02/22 11/02/22 11/02/22 Range/Units 07:05 07:05 07:05 RBC 3.75 L (4.70-6.10) M/uL Hgb 11.3 L (14.0-18.0) g/dl Hct 33.3 L (42.0-52.0) % RDW Std Deviation 46.9 H (36.4-46.3) fL RDW Coeff of Yuki 14.6 H (11.5-14.5) % Lymph # (Auto) 1.03 L (1.2-3.4) K/uL Sodium 135 L (136-145) mmol/L Chloride 90 L (98-107) mmol/L Carbon Dioxide 33 H (21-32) mmol/L Anion Gap 12 H (3-11) BUN 39 H (6-23) mg/dl Creatinine 6.16 H* (0.6-1.4) mg/dl BUN/Creatinine Ratio 6.3 L (10-20) Glucose 485 H* (70-99(Fasting)) mg/dl POC Glucose (70-99) mg/dl Alkaline Phosphatase 170 H (34-104) U/L Troponin I High Sens 22.9 H (0-20) pg/ml TSH 4.991 H (0.300-4.500) uIu/ml 11/02/22 Range/Units 10:10 RBC (4.70-6.10) M/uL Hgb (14.0-18.0) g/dl Hct (42.0-52.0) % RDW Std Deviation (36.4-46.3) fL RDW Coeff of Yuki (11.5-14.5) % Lymph # (Auto) (1.2-3.4) K/uL Sodium (136-145) mmol/L Chloride (98-107) mmol/L Carbon Dioxide (21-32) mmol/L Anion Gap (3-11) BUN (6-23) mg/dl Creatinine (0.6-1.4) mg/dl BUN/Creatinine Ratio (10-20) Glucose (70-99(Fasting)) mg/dl POC Glucose 346 H* (70-99) mg/dl Alkaline Phosphatase (34-104) U/L Troponin I High Sens (0-20) pg/ml TSH (0.300-4.500) uIu/ml Diagnostic Findings Echocardiogram performed 08/23/2022: Normal LV systolic function with ejection fraction of 55-60%. Mild mitral regurgitation. Mild left atrial dilation. PG Care Time/CCT Total # of Minutes Spent Total Time Spent with Patient: Total time spent is greater than 50% in coordination of care (as documented) at patient's floor/unit and/or counseling patient: Coding Level of Care Code 70522 IN/OBS CONSULT LVL 4,60M Diagnoses Atrial fibrillation I48.91 Resident Activity Tracking Resident Involvement: Resident Care Provided Care Provided: Adult Hospital Medicine
[2022-11-02] MEDS ORDERED: INSULIN ASPART PER UNIT CHARGE SC SCH (11:36)
[2022-11-02] MEDS ORDERED: GLUCAGON FOR INJ 1 MG VIAL SQ PRN (11:36)
[2022-11-02] MEDS ORDERED: carvediloL 6.25 MG TAB PO SCH (11:36)
[2022-11-02] MEDS ORDERED: ACETAMINOPHEN 325 MG TAB PO PRN (11:36)
[2022-11-02] MEDS ORDERED: ONDANSETRON INJ 2 MG/ML 2 ML VIAL IV PRN (11:36)
[2022-11-02] MEDS ORDERED: LANTUS PER UNIT CHARGE SC ONE (12:30)
[2022-11-02] MEDS: INSULIN ASPART PER UNIT CHARGE SC SCH ×3 (12:43→20:36)
[2022-11-02] MEDS: CALCIUM ACETATE 667 MG CAP/TAB PO SCH ×2 (12:46→18:34)
--- NOTE | 2022-11-02 12:57 | Nephrology Consultation ---
Date of Consultation November 02, 2022 Assessment & Plan (1) ESRD (end stage renal disease): (2) Atrial fibrillation: (3) SOB (shortness of breath): (4) Anemia: Plan End-stage renal disease on hemodialysis presented with SOB, palpitation and found to have AFib with RVR, rate controlled on IV Lopressor. Has functioning AV fistula. the dialysis treatment was shortened this morning because of symptomatic AFib with RVR and he was referred to ER. Started on Eliquis 5 mg bid. Electrolyte was found to be acceptable but blood pressure running high and he was above his dry weight with usually high weight gain. -- Will do 3 hours hemodialysis and aim for 3 L UF as tolerated. -- fluid restriction to less than 1 L per day, low-potassium diet, left arm nephrology precaution. --Continue on phosphate binder with meals. -- Dose medications for eGFR less than 10, recommend decreasing gabapentin 2 maximum 300 mg daily. Will follow Thank you for allowing me to participate in your patient's care. It was a pleasure to see Juan Jose History of Present Illness Reason for Consultation: ESRD on HD Attending Physician: Neymar Cartwright MD History of Present Illness Ventura Snell is a 42-year-old male with past medical history significant for end-stage renal disease on hemodialysis, hypertension, diabetes, GERD, h/o COVID -19 in Apr 2021,presented to the hospital with A fib with RVR. Nephrology consult was requested to provide dialysis while inpatient. Electronic medical records are reviewed in detail during patient's visit. Juan Jose presented with presenting with worsening palpitations and dyspnea since last night. this morning while he was on dialysis is noted to have heart rate in 160s, dialysis was discontinued after 1 hour and 30 minutes and he was sent to ER for further evaluation. He was noted to be in AFib with RVR with HR 140's and blood pressure systolic around 180. In ER he received IV Lopressor which improved heart rate, currently staying below 100. He has history of hypothyroidism but according to the report that he ran out of his Synthroid prescription months ago although ER lab showed TSH was just mildly elevated. troponin was normal. in ER hemoglobin was acceptable and lab showed electrolytes were reasonable with normal potassium. Juan Jose has end-stage renal disease secondary to diabetic nephropathy, has been on hemodialysis Saturday, Saturday, Saturday at [facility]. He had only 1.5 h dialysis today. His estimated dry weight is 125 kg and he is now 2.5 kg above his dry weight. He generally has tendency for high weight gain in between dialysis. Av fistula has been functioning well.. Currently his otherwise feeling well, denied significant shortness of breath, no chest pain. Allergies Allergy/AdvReac Type Severity Reaction Status Date / Time lisinopril AdvReac Intermediate COUGH Verified 11/02/22 10:13 Home Medications Medication Instructions Recorded Confirmed Type OneTouch Delica Lancets 33 gauge #400 ea 10/16/19 09/07/22 Rx (lancets) blood sugar diagnostic (OneTouch #400 ea 01/29/20 09/07/22 Rx Verio test strips) blood-glucose meter (OneTouch #1 ea 01/29/20 09/07/22 Rx Verio Flex Meter) acetone (urine) test (Ketostix #100 ea 02/18/20 09/07/22 Rx strips) pen needle, diabetic 29 gauge x #400 ea 01/25/21 09/07/22 Rx 1/2" (Comfort EZ Pen [place]) blood-glucose transmitter (Dexcom #1 ea 12/13/21 09/07/22 Rx G6 Transmitter device) cinacalcet 60 mg tablet (Sensipar) 60 mg PO HS 01/09/22 11/02/22 History aspirin 81 mg tablet,delayed 81 mg PO QPM 01/18/22 11/02/22 History release atorvastatin 80 mg tablet (Lipitor) 80 mg PO HS 01/18/22 11/02/22 History levothyroxine 50 mcg tablet 50 mcg PO QAM 01/18/22 11/02/22 History (Synthroid) bumetanide 2 mg tablet See Rx Instructions .Route 04/25/22 11/02/22 Rx .COMPLEX #270 tabs blood-glucose meter,continuous #1 ea 05/25/22 09/07/22 Rx (Dexcom G6 Plug Assembler) blood-glucose sensor (Dexcom G6 #3 ea 05/25/22 09/07/22 Rx Sensor device) duloxetine 60 mg capsule,delayed 60 mg PO QAM #90 caps 05/25/22 11/02/22 Rx release (Cymbalta) pantoprazole 40 mg tablet,delayed 40 mg PO QAM #90 tabs 05/25/22 11/02/22 Rx release (Protonix) vit B,C-folic ac 800 mcg-zinc 12.5 1 tab PO DAILY #30 tabs 06/29/22 11/02/22 Rx mg-selen-D3 2,000 unit-vit E tablet (RenaPlex-D) calcium acetate(phosphat bind) 667 0 mg PO TID 08/22/22 11/02/22 History mg capsule sucroferric oxyhydroxide 500 mg 0 mg PO TID 08/22/22 11/02/22 History chewable tablet (Velphoro) carvedilol 6.25 mg tablet 6.25 mg PO BID #60 tabs 08/24/22 11/02/22 Rx insulin aspart U-100 100 unit/mL 60 unit (0.6 mL) subcut TID 90 09/10/22 11/02/22 Rx (3 mL) subcutaneous pen days #162 mL gabapentin 300 mg capsule 600 mg PO BID #360 caps 10/24/22 11/02/22 Rx (Neurontin) insulin detemir U-100 100 unit/mL 0 unit subcut PM 11/02/22 11/02/22 History (3 mL) subcutaneous pen Patient History Medical History (Updated 11/02/22 @ 14:33 by Destiny Richards PA-C) Chronic venous insufficiency Depression Diabetic peripheral neuropathy associated with type 1 diabetes mellitus Diabetic retinopathy Erectile dysfunction ESRD (end stage renal disease) requiring hemodialysis. MWF at [facility]. ESRD (end stage renal disease) GERD (gastroesophageal reflux disease) Well controlled and stable H/O febrile seizure as a child (every year until he was 11 years old) no problems since. High cholesterol History of COVID-19 DX'D [facility] 04/28/21 COUGH-HOSPITALIZED X 1 DAY-RECOVERED AT HOME-RESOLVED Hyperosmolar hyperglycemic state (HHS) Hypertension Hypothyroidism Renal failure Thrombosis of arteriovenous dialysis fistula (~02/15/20) Type 1 diabetes Surgical History H/O detached retina repair History of esophagogastroduodenoscopy (EGD) S/P arteriovenous (AV) fistula creation left side, unable to use Family History Mother Diabetes Coronary heart disease Hypertension Father Coronary heart disease Hypertension Brother Coronary heart disease Kidney disease Uncle Colorectal cancer Grandmother Diabetes Aunt Diabetes Unknown Dyslipidemia Grandfather (Maternal) Diabetes Other Cancer No family history of adverse response to anesthesia Social History Smoking Status: Never smoker Second Hand Exposure: No; Do You Dip or Chew Tobacco: No; Tobacco Cessation Education Requested by Patient: No Hx Alcohol Use: No Hx Substance Use: No Preferred Language: Latvian Communication Ability: Effective Visual Impairment: No Limitations Hearing Ability: Normal Clear Coat Sprayer Required: No Beliefs That Will Affect Care: None marital status: Single Current Living Situation: Alone Current Living Situation Comment: Brother 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" How many Children do You have: 0 Other Information That Helps Us Care for You: No Feels Safe at Home: Yes Safety Concerns: Feels Safe At This Time Dental Care, Regularly: No Physical Activity Frequency: Does not Exercise Seatbelt Use: always Sunscreen Use: No Assistive Devices: Cane Assistive Devices Comment: Cane when out of the house Physical Exam Constitutional: WD/WN, vitals as above + obese; no acute distress Eyes: + anicteric sclerae Neck: normal visual inspection Respiratory: no respiratory distress Auscultation: lungs clear to auscultation bilaterally Cardiovascular: Rate/Rhythm: regular rate and regular rhythm Extremities: + AV fistula (left arm AVF); no edema Gastrointestinal (Abdomen): Inspection/Auscultation: abdomen normal to inspection Percussion/Palpation: abdomen soft; abdomen nontender Musculoskeletal: Extremities: extremities normal to inspection Neurologic: no focal motor deficits Psychiatric: Orientation: alert and oriented x 3 Affect: euthymic affect Results & Data Vital Signs (Past 12 Hours) Vital Signs Temp Pulse Pulse Resp BP BP Pulse Ox 11/02/22 11:30 36.8 C 87 18 170/96 H 94 11/02/22 11:30 36.8 C 18 170/96 H 94 11/02/22 10:26 88 22 160/98 H 98 11/02/22 09:22 89 20 171/94 H 96 11/02/22 08:51 88 18 180/101 H 97 11/02/22 07:30 93 H 11/02/22 08:20 89 11/02/22 07:43 93 H 16 185/100 H 95 11/02/22 07:04 36.9 C 144 H 21 181/105 H 98 O2 Del Method O2 Flow Rate 11/02/22 11:30 Room Air 11/02/22 11:30 Room Air 11/02/22 10:26 Nasal Cannula 2 11/02/22 09:22 Nasal Cannula 2 11/02/22 08:51 Room Air 11/02/22 07:30 11/02/22 08:20 11/02/22 07:43 Room Air 11/02/22 07:04 Room Air PG Care Time/CCT Total # of Minutes Spent Total Time Spent with Patient: Total time spent is greater than 50% in coordination of care (as documented) at patient's floor/unit and/or counseling patient: Coding Level of Care Code 18480 INT INP/OBS CARE 375MIN Diagnoses ESRD (end stage renal disease) N18.6 Atrial fibrillation I48.91 SOB (shortness of breath) R06.02 Anemia D64.9 Anemia type: unspecified type (4) Anemia Anemia type: unspecified type Qualified Code(s): D64.9 - Anemia, unspecified
[2022-11-02 13:36] LABS: Calcium 8.8 mg/dl (8.6-10.3); Creatinine Clr Calc Pharmacy 17.5 ml/min; Est GFR (African American) 10.3 ml/min; Est GFR (Non-African American) 8.9 ml/min; Potassium 4.5 mmol/L (3.5-5.1)
[2022-11-02] MEDS ORDERED: NON-FORMULARY MEDICATION (Sucroferric Oxyhydroxide [Velphoro] 500 mg tablet,chewable) PO SCH (14:00)
[2022-11-02] MEDS ORDERED: MAGNESIUM SULFATE / D5W 1 GM/100 ML BAG IV ONE (14:45)
--- NOTE | 2022-11-02 17:46 | Electrocardiogram Report ---
Test Reason : Blood Pressure : / mmHG Vent. Rate : 100 BPM Atrial Rate : 100 BPM P-R Int : 148 ms QRS Dur : 086 ms QT Int : 354 ms P-R-T Axes : 020 -01 067 degrees QTc Int : 456 ms Normal sinus rhythm Minimal voltage criteria for LVH, may be normal variant Abnormal ECG When compared with ECG of 18-SEP-2022 23:18, No significant change was found Confirmed by Rich Marie ([id number]) on 11/02/2022 5:45:59 PM Referred By: REFERRED SELF Confirmed By:Brandon Marie
--- NOTE | 2022-11-02 17:49 | Electrocardiogram Report ---
Test Reason : Blood Pressure : / mmHG Vent. Rate : 140 BPM Atrial Rate : 315 BPM P-R Int : 000 ms QRS Dur : 084 ms QT Int : 284 ms P-R-T Axes : 000 000 130 degrees QTc Int : 433 ms Atrial flutter with variable A-V block Minimal voltage criteria for LVH, may be normal variant Abnormal ECG When compared with ECG of 02-NOV-2022 06:56, (unconfirmed) Atrial flutter has replaced Sinus rhythm T wave inversion more evident in Lateral leads Confirmed by Rich Marie ([id number]) on 11/02/2022 5:48:49 PM Referred By: REFERRED SELF Confirmed By:Brandon Marie
--- NOTE | 2022-11-02 17:56 | Electrocardiogram Report ---
Test Reason : Blood Pressure : / mmHG Vent. Rate : 101 BPM Atrial Rate : 101 BPM P-R Int : 146 ms QRS Dur : 082 ms QT Int : 360 ms P-R-T Axes : 032 -01 075 degrees QTc Int : 466 ms Sinus tachycardia with Premature atrial complexes Minimal voltage criteria for LVH, may be normal variant Nonspecific ST abnormality Abnormal ECG When compared with ECG of 02-NOV-2022 07:01, (unconfirmed) Sinus rhythm has replaced Atrial flutter T wave inversion less evident in Lateral leads Confirmed by Rich Marie ([id number]) on 11/02/2022 5:56:41 PM Referred By: REFERRED SELF Confirmed By:Brandon Marie
[2022-11-02] MEDS: BUMETANIDE 4 MG in SYRINGE 0 ML IV SCH (18:34)
[2022-11-02] MEDS ORDERED: CINACALCET HCL 30 MG TAB PO SCH (19:00)
[2022-11-02] MEDS: ASPIRIN 81 MG ECTAB PO SCH ×2 (20:34→20:59)
[2022-11-02] MEDS: carvediloL 12.5 MG TAB PO SCH (20:37)
[2022-11-02] MEDS ORDERED: HEPARIN SOD 5,000 UNIT/0.5 ML VIAL SQ SCH (21:00)
[2022-11-02] MEDS ORDERED: LANTUS PER UNIT CHARGE SC SCH (21:00)
[2022-11-02] MEDS ORDERED: GABAPENTIN 300 MG CAP PO SCH (21:00)
[2022-11-02] MEDS ORDERED: ATORVASTATIN 40 MG TAB PO SCH (21:00)
[2022-11-02] MEDS: APIXABAN 5 MG TABLET PO SCH (21:17)
[2022-11-03] MEDS: INSULIN ASPART PER UNIT CHARGE SC SCH ×5 (00:14→12:29)
[2022-11-03 05:04] LABS: Basophils # (auto) 0.04 K/uL (0-0.2); Basophils % (auto) 0.8 %; Eosinophils # (auto) 0.11 K/uL (0-0.50); Eosinophils % (auto) 2.2 %; Hematocrit (blood only) 30.5 % (42.0-52.0); Hemoglobin 10.2 g/dl (14.0-18.0); Immature Granulocytes # (auto) 0.01 K/uL (0.01-0.20); Immature Granulocytes % (auto) 0.2 %; Lymphocytes # (auto) 1.69 K/uL (1.2-3.4); Lymphocytes % (auto) 33.7 %; Mean Corpuscular Hemoglobin 30.8 pg (25.0-34.0); Mean Corpuscular Hgb Conc 33.4 g/dL (32.0-36.0); Mean Corpuscular Volume 92.1 fL (80.0-100.0); Mean Platelet Volume 11.1 fL (9.4-12.4); Monocytes # (auto) 0.49 K/uL (0.11-0.59); Monocytes % (auto) 9.8 %; Neutrophils # (auto) 2.67 K/uL (1.40-6.50); Neutrophils % (auto) 53.3 %; Platelet Count 201 K/uL (130-400); RDW Standard Deviation 49.7 fL (36.4-46.3); Red Blood Count 3.31 M/uL (4.70-6.10); White Blood Count 5.01 K/ul (4.8-10.8)
[2022-11-03 05:21] LABS: Albumin Globulin Ratio 1.2 (0.9-2); Albumin Level 3.8 gm/dl (3.4-5.0); BUN Creatinine Ratio 5.2 (10-20); Bilirubin,Total 0.7 mg/dl (0.2-1.0); Calcium 8.9 mg/dl (8.6-10.3); Creatinine Clr Calc Pharmacy 21.6 ml/min; Est GFR (African American) 13.5 ml/min; Est GFR (Non-African American) 11.6 ml/min; Globulin 3.1 gm/dl (2.5-4.0); Potassium 3.9 mmol/L (3.5-5.1); Total Protein 6.9 gm/dl (6.0-8.3)
[2022-11-03] MEDS ORDERED: LEVOTHYROXINE SODIUM 50 MCG TABLET PO SCH (06:30)
[2022-11-03 07:53] LABS: Estimated Average Glucose 192 mg/dl; Hemoglobin A1C 8.3 % (4.5-5.6)
[2022-11-03] MEDS: carvediloL 12.5 MG TAB PO SCH (08:00)
[2022-11-03] MEDS: APIXABAN 5 MG TABLET PO SCH (08:00)
[2022-11-03] MEDS: CALCIUM ACETATE 667 MG CAP/TAB PO SCH ×2 (08:00→14:27)
[2022-11-03] MEDS: BUMETANIDE 4 MG in SYRINGE 0 ML IV SCH (08:01)
--- NOTE | 2022-11-03 08:16 | Hospitalist Progress Note ---
Date of Service November 03, 2022 Assessment & Plan Admission and Anticipated Discharge Date Admission Date: November 02, 2022 Results & Data Results & Data Vital Signs (Past 12 Hours) Vital Signs Temp Pulse Resp BP Pulse Ox O2 Del Method 11/03/22 04:07 36.6 C 73 18 144/79 H 97 Room Air 11/02/22 23:09 36.8 C 80 18 158/84 H 97 Room Air Laboratory Results 11/03/22 11/03/22 11/03/22 Range/Units 07:49 04:01 04:01 WBC 5.01 (4.8-10.8) K/ul RBC 3.31 L (4.70-6.10) M/uL Hgb 10.2 L (14.0-18.0) g/dl Hct 30.5 L (42.0-52.0) % MCV 92.1 (80.0-100.0) fL MCH 30.8 (25.0-34.0) pg MCHC 33.4 (32.0-36.0) g/dL RDW Std Deviation 49.7 H (36.4-46.3) fL RDW Coeff of Yuki 15.0 H (11.5-14.5) % Plt Count 201 (130-400) K/uL MPV 11.1 (9.4-12.4) fL Immature Gran % (Auto) 0.2 % Neut % (Auto) 53.3 % Lymph % (Auto) 33.7 % [place] % (Auto) 9.8 % Eos % (Auto) 2.2 % Baso % (Auto) 0.8 % Neut # (Auto) 2.67 (1.40-6.50) K/uL Lymph # (Auto) 1.69 (1.2-3.4) K/uL [place] # (Auto) 0.49 (0.11-0.59) K/uL Eos # (Auto) 0.11 (0-0.50) K/uL Baso # (Auto) 0.04 (0-0.2) K/uL Immature Gran # (Auto) 0.01 (0.01-0.20) K/uL Sodium 134 L (136-145) mmol/L Potassium 3.9 (3.5-5.1) mmol/L Chloride 95 L (98-107) mmol/L Carbon Dioxide 30 (21-32) mmol/L Anion Gap 9 (3-11) BUN 29 H (6-23) mg/dl Creatinine 5.59 H* D (0.6-1.4) mg/dl Est Cr Clr Drug Dosing 21.6 ml/min Est GFR ( Amer) 13.5 ml/min Est GFR (Non-Af Amer) 11.6 ml/min BUN/Creatinine Ratio 5.2 L (10-20) Glucose 225 H (70-99(Fasting)) mg/dl POC Glucose 215 H (70-99) mg/dl Calcium 8.9 (8.6-10.3) mg/dl Magnesium 2.0 (1.7-2.4) mg/dl Total Bilirubin 0.7 (0.2-1.0) mg/dl AST 17 (13-39) U/L ALT 13 (7-52) U/L Alkaline Phosphatase 131 H (34-104) U/L Troponin I High Sens (0-20) pg/ml Total Protein 6.9 (6.0-8.3) gm/dl Albumin 3.8 (3.4-5.0) gm/dl Globulin 3.1 (2.5-4.0) gm/dl Albumin/Globulin Ratio 1.2 (0.9-2) Free T4 (0.61-1.60) ng/dl Free T3 (2.3-4.2) pg/ml 11/03/22 11/02/22 11/02/22 Range/Units 00:11 20:10 19:13 WBC (4.8-10.8) K/ul RBC (4.70-6.10) M/uL Hgb (14.0-18.0) g/dl Hct (42.0-52.0) % MCV (80.0-100.0) fL MCH (25.0-34.0) pg MCHC (32.0-36.0) g/dL RDW Std Deviation (36.4-46.3) fL RDW Coeff of Yuki (11.5-14.5) % Plt Count (130-400) K/uL MPV (9.4-12.4) fL Immature Gran % (Auto) % Neut % (Auto) % Lymph % (Auto) % [place] % (Auto) % Eos % (Auto) % Baso % (Auto) % Neut # (Auto) (1.40-6.50) K/uL Lymph # (Auto) (1.2-3.4) K/uL [place] # (Auto) (0.11-0.59) K/uL Eos # (Auto) (0-0.50) K/uL Baso # (Auto) (0-0.2) K/uL Immature Gran # (Auto) (0.01-0.20) K/uL Sodium (136-145) mmol/L Potassium (3.5-5.1) mmol/L Chloride (98-107) mmol/L Carbon Dioxide (21-32) mmol/L Anion Gap (3-11) BUN (6-23) mg/dl Creatinine (0.6-1.4) mg/dl Est Cr Clr Drug Dosing ml/min Est GFR ( Amer) ml/min Est GFR (Non-Af Amer) ml/min BUN/Creatinine Ratio (10-20) Glucose (70-99(Fasting)) mg/dl POC Glucose 159 H 201 H (70-99) mg/dl Calcium (8.6-10.3) mg/dl Magnesium (1.7-2.4) mg/dl Total Bilirubin (0.2-1.0) mg/dl AST (13-39) U/L ALT (7-52) U/L Alkaline Phosphatase (34-104) U/L Troponin I High Sens 20.0 (0-20) pg/ml Total Protein (6.0-8.3) gm/dl Albumin (3.4-5.0) gm/dl Globulin (2.5-4.0) gm/dl Albumin/Globulin Ratio (0.9-2) Free T4 (0.61-1.60) ng/dl Free T3 (2.3-4.2) pg/ml 11/02/22 11/02/22 11/02/22 Range/Units 17:24 12:53 12:11 WBC (4.8-10.8) K/ul RBC (4.70-6.10) M/uL Hgb (14.0-18.0) g/dl Hct (42.0-52.0) % MCV (80.0-100.0) fL MCH (25.0-34.0) pg MCHC (32.0-36.0) g/dL RDW Std Deviation (36.4-46.3) fL RDW Coeff of Yuki (11.5-14.5) % Plt Count (130-400) K/uL MPV (9.4-12.4) fL Immature Gran % (Auto) % Neut % (Auto) % Lymph % (Auto) % [place] % (Auto) % Eos % (Auto) % Baso % (Auto) % Neut # (Auto) (1.40-6.50) K/uL Lymph # (Auto) (1.2-3.4) K/uL [place] # (Auto) (0.11-0.59) K/uL Eos # (Auto) (0-0.50) K/uL Baso # (Auto) (0-0.2) K/uL Immature Gran # (Auto) (0.01-0.20) K/uL Sodium 132 L (136-145) mmol/L Potassium 4.5 (3.5-5.1) mmol/L Chloride 90 L (98-107) mmol/L Carbon Dioxide 31 (21-32) mmol/L Anion Gap 11 (3-11) BUN 42 H (6-23) mg/dl Creatinine 6.99 H* D (0.6-1.4) mg/dl Est Cr Clr Drug Dosing 17.5 ml/min Est GFR ( Amer) 10.3 ml/min Est GFR (Non-Af Amer) 8.9 ml/min BUN/Creatinine Ratio 6.0 L (10-20) Glucose 393 H* (70-99(Fasting)) mg/dl POC Glucose 168 H 345 H* (70-99) mg/dl Calcium 8.8 (8.6-10.3) mg/dl Magnesium (1.7-2.4) mg/dl Total Bilirubin (0.2-1.0) mg/dl AST (13-39) U/L ALT (7-52) U/L Alkaline Phosphatase (34-104) U/L Troponin I High Sens 19.0 (0-20) pg/ml Total Protein (6.0-8.3) gm/dl Albumin (3.4-5.0) gm/dl Globulin (2.5-4.0) gm/dl Albumin/Globulin Ratio (0.9-2) Free T4 (0.61-1.60) ng/dl Free T3 (2.3-4.2) pg/ml 11/02/22 11/02/22 11/02/22 Range/Units 12:08 10:10 07:05 WBC (4.8-10.8) K/ul RBC (4.70-6.10) M/uL Hgb (14.0-18.0) g/dl Hct (42.0-52.0) % MCV (80.0-100.0) fL MCH (25.0-34.0) pg MCHC (32.0-36.0) g/dL RDW Std Deviation (36.4-46.3) fL RDW Coeff of Yuki (11.5-14.5) % Plt Count (130-400) K/uL MPV (9.4-12.4) fL Immature Gran % (Auto) % Neut % (Auto) % Lymph % (Auto) % [place] % (Auto) % Eos % (Auto) % Baso % (Auto) % Neut # (Auto) (1.40-6.50) K/uL Lymph # (Auto) (1.2-3.4) K/uL [place] # (Auto) (0.11-0.59) K/uL Eos # (Auto) (0-0.50) K/uL Baso # (Auto) (0-0.2) K/uL Immature Gran # (Auto) (0.01-0.20) K/uL Sodium (136-145) mmol/L Potassium (3.5-5.1) mmol/L Chloride (98-107) mmol/L Carbon Dioxide (21-32) mmol/L Anion Gap (3-11) BUN (6-23) mg/dl Creatinine (0.6-1.4) mg/dl Est Cr Clr Drug Dosing ml/min Est GFR ( Amer) ml/min Est GFR (Non-Af Amer) ml/min BUN/Creatinine Ratio (10-20) Glucose (70-99(Fasting)) mg/dl POC Glucose 352 H* 346 H* (70-99) mg/dl Calcium (8.6-10.3) mg/dl Magnesium (1.7-2.4) mg/dl Total Bilirubin (0.2-1.0) mg/dl AST (13-39) U/L ALT (7-52) U/L Alkaline Phosphatase (34-104) U/L Troponin I High Sens (0-20) pg/ml Total Protein (6.0-8.3) gm/dl Albumin (3.4-5.0) gm/dl Globulin (2.5-4.0) gm/dl Albumin/Globulin Ratio (0.9-2) Free T4 (0.61-1.60) ng/dl Free T3 2.94 (2.3-4.2) pg/ml 11/02/22 Range/Units 07:05 WBC (4.8-10.8) K/ul RBC (4.70-6.10) M/uL Hgb (14.0-18.0) g/dl Hct (42.0-52.0) % MCV (80.0-100.0) fL MCH (25.0-34.0) pg MCHC (32.0-36.0) g/dL RDW Std Deviation (36.4-46.3) fL RDW Coeff of Yuki (11.5-14.5) % Plt Count (130-400) K/uL MPV (9.4-12.4) fL Immature Gran % (Auto) % Neut % (Auto) % Lymph % (Auto) % [place] % (Auto) % Eos % (Auto) % Baso % (Auto) % Neut # (Auto) (1.40-6.50) K/uL Lymph # (Auto) (1.2-3.4) K/uL [place] # (Auto) (0.11-0.59) K/uL Eos # (Auto) (0-0.50) K/uL Baso # (Auto) (0-0.2) K/uL Immature Gran # (Auto) (0.01-0.20) K/uL Sodium (136-145) mmol/L Potassium (3.5-5.1) mmol/L Chloride (98-107) mmol/L Carbon Dioxide (21-32) mmol/L Anion Gap (3-11) BUN (6-23) mg/dl Creatinine (0.6-1.4) mg/dl Est Cr Clr Drug Dosing ml/min Est GFR ( Amer) ml/min Est GFR (Non-Af Amer) ml/min BUN/Creatinine Ratio (10-20) Glucose (70-99(Fasting)) mg/dl POC Glucose (70-99) mg/dl Calcium (8.6-10.3) mg/dl Magnesium (1.7-2.4) mg/dl Total Bilirubin (0.2-1.0) mg/dl AST (13-39) U/L ALT (7-52) U/L Alkaline Phosphatase (34-104) U/L Troponin I High Sens (0-20) pg/ml Total Protein (6.0-8.3) gm/dl Albumin (3.4-5.0) gm/dl Globulin (2.5-4.0) gm/dl Albumin/Globulin Ratio (0.9-2) Free T4 1.07 (0.61-1.60) ng/dl Free T3 (2.3-4.2) pg/ml Diagnostic Findings Chest X-Ray 11/02/22 07:09 XR chest 1V portable HISTORY: Shortness of breath. palpitations COMPARISON: Chest 08/24/2022. FINDINGS: No pneumothorax. No pleural effusions. The cardiac silhouette remains mildly enlarged. No new focal lung consolidations to suggest a pneumonia. There is mild pulmonary vascular congestion without overt edema. This is similar to the prior study. No acute fractures identified. IMPRESSION: Cardiomegaly with mild congestive change. This is similar to the prior study. ACT 112: Negative or not required by law. Electronically signed by: Gordo Kaye M.D. 11/02/2022 8:20 AM PG Care Time/CCT Total # of Minutes Spent Total Time Spent with Patient: Total time spent is greater than 50% in coordination of care (as documented) at patient's floor/unit and/or counseling patient: Coding Diagnoses
[2022-11-03] MEDS ORDERED: NEPHROCAPS PO SCH (09:00)
[2022-11-03] MEDS ORDERED: GABAPENTIN 300 MG CAP PO SCH (09:00)
[2022-11-03] MEDS ORDERED: PANTOprazole 40 MG TAB PO SCH (09:00)
[2022-11-03] MEDS ORDERED: LANTUS PER UNIT CHARGE SC SCH (09:00)
[2022-11-03] MEDS ORDERED: DULoxetine HCL 60 MG CAP PO SCH (09:00)
--- NOTE | 2022-11-03 11:21 | Nephrology Progress Note ---
Date of Service November 03, 2022 Assessment & Plan (1) ESRD (end stage renal disease): Plan: Completed HD yesterday with adequate clearance and UF. Electrolytes controlled. Volume status acceptable. Next HD planned for Saturday per MWF schedule. AVF functioning well. Medications appropriate for kidney function. Ventura has returned to EDW following treatment yesterday. Continue Phoslo QAC. Continue cinacalcet per home Rx. Bumex can be titrated as tolerated to encourage urine output. Dietary sodium, fluid, and potassium restriction reviewed. (2) Atrial fibrillation: Plan: Converted to sinus rhythm. Denies any symptoms this AM. Appropriately anticoagulated with Eliquis 5 mg BID. (3) Anemia: Plan: Chronic, stable. Maintained on Micera with HD as outpatient. Admission and Anticipated Discharge Date Admission Date: November 02, 2022 Subjective No acute events overnight. Tolerated HD well yesterday. Ventura feels well this AM. He states that he is ready to go home. No chest pain or palpitations. Denies shortness of breath. Denies fluid retention or edema. Out of bed and ambulating in hospital room. Review of Systems Review of Systems: All systems reviewed & are unremarkable except as noted in HPI & below Physical Exam Constitutional: well developed; no acute distress Eyes: no scleral abnormality and no corneal abnormality ENMT: Mouth: no oral mucosal abnormality and oral mucous membranes not dry Neck: normal visual inspection and trachea midline Respiratory: normal respiratory effort Auscultation: lungs clear to auscultation bilaterally Cardiovascular: Rate/Rhythm: regular rate Heart Sounds: normal S1 and normal S2 Extremities: + pedal edema and + AV fistula Musculoskeletal: Extremities: no cyanosis and no clubbing Skin: normal turgor; no jaundice Neurologic: Motor/Sensory: no tremor and no asterixis Psychiatric: Orientation: alert and oriented x 3 Results & Data Vital Signs (Past 12 Hours) Vital Signs Temp Pulse Pulse Resp BP Pulse Ox O2 Del Method 11/03/22 10:21 78 11/03/22 08:15 36.6 C 76 18 153/92 H 97 Room Air 11/03/22 04:07 36.6 C 73 18 144/79 H 97 Room Air Laboratory Results Laboratory Results - last 24 hr 11/02/22 11/02/22 11/02/22 12:08 12:11 12:53 WBC RBC Hgb Hct MCV MCH MCHC RDW Std Deviation RDW Coeff of Yuki Plt Count MPV Immature Gran % (Auto) Neut % (Auto) Lymph % (Auto) [place] % (Auto) Eos % (Auto) Baso % (Auto) Neut # (Auto) Lymph # (Auto) [place] # (Auto) Eos # (Auto) Baso # (Auto) Immature Gran # (Auto) Sodium 132 L Potassium 4.5 Chloride 90 L Carbon Dioxide 31 Anion Gap 11 BUN 42 H Creatinine 6.99 H* D Est Cr Clr Drug Dosing 17.5 Est GFR ( Amer) 10.3 Est GFR (Non-Af Amer) 8.9 BUN/Creatinine Ratio 6.0 L Glucose 393 H* POC Glucose 352 H* 345 H* Estimat Average Glucose Hemoglobin A1c Calcium 8.8 Magnesium Total Bilirubin AST ALT Alkaline Phosphatase Troponin I High Sens 19.0 Total Protein Albumin Globulin Albumin/Globulin Ratio 11/02/22 11/02/22 11/02/22 17:24 19:13 20:10 WBC RBC Hgb Hct MCV MCH MCHC RDW Std Deviation RDW Coeff of Yuki Plt Count MPV Immature Gran % (Auto) Neut % (Auto) Lymph % (Auto) [place] % (Auto) Eos % (Auto) Baso % (Auto) Neut # (Auto) Lymph # (Auto) [place] # (Auto) Eos # (Auto) Baso # (Auto) Immature Gran # (Auto) Sodium Potassium Chloride Carbon Dioxide Anion Gap BUN Creatinine Est Cr Clr Drug Dosing Est GFR ( Amer) Est GFR (Non-Af Amer) BUN/Creatinine Ratio Glucose POC Glucose 168 H 201 H Estimat Average Glucose Hemoglobin A1c Calcium Magnesium Total Bilirubin AST ALT Alkaline Phosphatase Troponin I High Sens 20.0 Total Protein Albumin Globulin Albumin/Globulin Ratio 11/03/22 11/03/22 11/03/22 00:11 04:01 04:01 WBC 5.01 RBC 3.31 L Hgb 10.2 L Hct 30.5 L MCV 92.1 MCH 30.8 MCHC 33.4 RDW Std Deviation 49.7 H RDW Coeff of Yuki 15.0 H Plt Count 201 MPV 11.1 Immature Gran % (Auto) 0.2 Neut % (Auto) 53.3 Lymph % (Auto) 33.7 [place] % (Auto) 9.8 Eos % (Auto) 2.2 Baso % (Auto) 0.8 Neut # (Auto) 2.67 Lymph # (Auto) 1.69 [place] # (Auto) 0.49 Eos # (Auto) 0.11 Baso # (Auto) 0.04 Immature Gran # (Auto) 0.01 Sodium Potassium Chloride Carbon Dioxide Anion Gap BUN Creatinine Est Cr Clr Drug Dosing Est GFR ( Amer) Est GFR (Non-Af Amer) BUN/Creatinine Ratio Glucose POC Glucose 159 H Estimat Average Glucose 192 Hemoglobin A1c 8.3 H Calcium Magnesium Total Bilirubin AST ALT Alkaline Phosphatase Troponin I High Sens Total Protein Albumin Globulin Albumin/Globulin Ratio 11/03/22 11/03/22 04:01 07:49 WBC RBC Hgb Hct MCV MCH MCHC RDW Std Deviation RDW Coeff of Yuki Plt Count MPV Immature Gran % (Auto) Neut % (Auto) Lymph % (Auto) [place] % (Auto) Eos % (Auto) Baso % (Auto) Neut # (Auto) Lymph # (Auto) [place] # (Auto) Eos # (Auto) Baso # (Auto) Immature Gran # (Auto) Sodium 134 L Potassium 3.9 Chloride 95 L Carbon Dioxide 30 Anion Gap 9 BUN 29 H Creatinine 5.59 H* D Est Cr Clr Drug Dosing 21.6 Est GFR ( Amer) 13.5 Est GFR (Non-Af Amer) 11.6 BUN/Creatinine Ratio 5.2 L Glucose 225 H POC Glucose 215 H Estimat Average Glucose Hemoglobin A1c Calcium 8.9 Magnesium 2.0 Total Bilirubin 0.7 AST 17 ALT 13 Alkaline Phosphatase 131 H Troponin I High Sens Total Protein 6.9 Albumin 3.8 Globulin 3.1 Albumin/Globulin Ratio 1.2 PG Care Time/CCT Total # of Minutes Spent Total Time Spent with Patient: Total time spent is greater than 50% in coordination of care (as documented) at patient's floor/unit and/or counseling patient: Coding Level of Care Code 03480 SUB INP/OBS CARE 3/50MIN Diagnoses ESRD (end stage renal disease) N18.6 Atrial fibrillation I48.91 Anemia D64.9 Anemia type: unspecified type (3) Anemia Anemia type: unspecified type Qualified Code(s): D64.9 - Anemia, unspecified
--- NOTE | 2022-11-03 12:39 | Discharge Summary ---
Date of Service November 03, 2022 Admission HPI Per Admitting Provider 42yo presented w/ SOB and palpitations found to be possibly in afib w/ RVR with HRs to 150-160s and given Lopressor by ER provider with break and rates maintaining in the 90s. He is ESRD on HD M/W/F. Also type I DM and BSGs to 460s on admission, provided 10u insulin. Eval this morning. States he had about 2hours of his HD treatment this morning. Discussed labs/volume status and likely need for repeat HD session for today. Believes dry weight ~128kg. Currently 129.6kg, up about 2.5kg from baseline. Takes 1 bumex in AM, 2 tablets at night. Reports still makes urine, especially when his sugars are high. Endorses sugars typically in the 300-400 range at home. Has had some palpitations/fluttering sensation in the past but reports this is when he drinks a lot of soda and he takes an extra carvedilol and lays down and this typically helps. Less palpitaions now that his rates are improved but still endorsing some shortness of breath and placed on 2L NC. No hx AMELIA, but endorses daytime fatigue/sleepiness. +Cough, no fever/chills. States his phlegm is ALWAYS clear. Chronic dry skin/flaking from compression w/ edema in the past. Using cerovite. Discussed wound consult and possible amlactin to soften and assist with findings to b/l ankles/feet. No abdominal pain/nausea reported but does have chronic constipation, dry skin. Notes that he has been out of his Synthroid for a couple months. States after discussion of undertreated hypothyroidism/risk for afib/fluid retention/anemia/etc...he notes no one had ever discussed this. Will ensure he has new rx at discharge. Discussed code status - he is a level 1. Wants everything done if needed. CXR w/ cardiomegaly w/ mild congestive change, similar to prior. WBC wnl, hgb stable compared to priors. Na low 135, Chl 90, Bicarb elevated to 33, anion gap 12, BUN/Cr 39/6.16, glucose 485. Mag 1.7. TB wnl, ALP 170. Trop 22.9 on initial draw. TSH elevated to 4.991 Order placed for supplemental O2 as needed, bumex to be increased to 4mg PO BID given reported making urine for now and will consult Nephrology for possible HD today given elevated anion gap/volume overload to see if additional treatment sesstion for today. Cardiology to be consulted for afib/RVR, AC Questions/concerns addressed at this time. Admission Exam Per Admitting Provider General: chronically ill appearing male sitting up in bed in the emergency department, NAD but reporting fatigue/shortness of breath, SpO2 90% HEENT: head normocephalic, thick neck, trachea midline without deviation, mmm Resp: diminished in the bases, faint exp wheezing, no crackles/rales, on room air, +occasional cough CV: irregular rhythm, rates 90s, ?S3, +systolic murmur, b/l LE edema, calves nontender, pulses diminished but palpable GI: +BS, +distension but soft/NT ; no man MSK/Neuro: no focal deficit, no slurred speech, follows commands, strength intact bilaterally Psych: AOx3 , cooperative with exam, fatigued appearing Skin: perfused, flaking of skin to b/l ankles/feet along with erythema (reporting chronic), nontender to palpation Principal Diagnosis AFib w/ RVR, Volume Overload Discharge Exam General: chronically ill appearing male sitting up in recliner this morning , appearing much improved, no tachypnea/shortness of breath reported HEENT: head normocephalic, thick neck, trachea midline without deviation, mmm Resp: diminished in the bases, faint wheeze improved, no crackles/rales, no cough, on room air CV: regular rate/rhythm, rates in 70s, S3, +systolic murmur, calves nontender, pulses diminished but palpable GI: +BS, +less distension but soft/NT ; no man MSK/Neuro: no focal deficit, no slurred speech, follows commands, strength intact bilaterally Psych: AOx3 , cooperative with exam, fatigued appearing Skin: perfused, flaking of skin to b/l ankles/feet along with erythema (reporting chronic), nontender to palpation Discharge Data Allergies Allergy/AdvReac Type Severity Reaction Status Date / Time lisinopril AdvReac Intermediate COUGH Verified 11/02/22 10:13 Consultations 11/02/22 08:37 Consult Cardiology Routine Consult Nephrology Routine ED Decision to Admit Stat 11/03/22 12:32 Consult [facility] 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 palpitations COMPARISON: Chest 08/24/2022. FINDINGS: No pneumothorax. No pleural effusions. The cardiac silhouette remains mildly enlarged. No new focal lung consolidations to suggest a pneumonia. There is mild pulmonary vascular congestion without overt edema. This is similar to the prior study. No acute fractures identified. IMPRESSION: Cardiomegaly with mild congestive change. This is similar to the prior study. ACT 112: Negative or not required by law. Electronically signed by: Gordo Kaye M.D. 11/02/2022 8:20 AM Hospital Course (1) Atrial fibrillation with rapid ventricular response: Sent from HD for SOB after 1.5hr session, found to be in afib/RVR with rates to 140-160s. ER provider given lopressor with reduction in rate. Multifactorial: suspect dietary indiscretion at home/hyperglycemia (reports BSGs 3-400s at home), med non-compliance (TSH elevated, reports has been out of synthoid for several months) as well as possible underlying paroxysmal atrial fibrillation given he reports fluttering sensation/SOB when "drinking too much soda" however given not taking synthroid could be going in/out, but also contributing to increased weight gain. Weight 129.5kg on admission - reports dry weight ~128kg on bumex 2mg QAM, 4mg QPM at home reported Admitted to telemetry and troponins were checked and trended down, suspect demand from afib/rvr, improved w/ BB and increase in his carvedilol TSH elevated but normal T4/t3, however patient had not been taking his synthroid for 1-2 months . Discussed given his symptoms of palpitations coming/going and improved w/ an "extra dose" of his BB at home, he likely has paroxysmal afib. New rx at discharge provided 1gm IV mag provided for 1.7 Cardiology consulted -- rec to continue increased carvedilol and rx sent at discharge Eliquis 5mg BID initiated and continued at dc. Coupon provided. F/u Cards at discharge Nephrology consulted given ESRD and volume overloaded as did not get to complete HD session and presented w/ anion gap acidosis, improved on repeat labs. Also discussed with Dr Ibanez about Mr Snell's bumex use and likely increased fluid intake/salt/diet at home and improvement in volume status w/ 4mg BID and decision to continue 4mg PO BID at discharge Decreased home gabapentin to 300mg DAILY MAX given renal function -- discussed w/ patient and sent new rx at discharge Discussed with both cardiology and nephrology given patient stable HR, NSR in the 70s and chemistries improved/breathing stable and 96% on room air and patient requesting to go home -- stable for dc from their perspective. Outpt f/u nephro/HD on Saturday, Cardiology at discharge (2) SOB (shortness of breath): multifactorial -- CXR w/ volume overload, presented with afib w/ rapid venticular rate and hyperglycemia carvedilol increased as above, BSGs improved (needs f/u endo see below), eliquis initiated and remained NSR on monitor Cards/nephro consulted as above increased carvedilol, started eliquis, s/p HD on 11/02 and breathing improved and stable. Weights improved as well. 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 RVR Given reports still making urine/weight up/volume overloaded on CXR, bumex increased to 4mg BID and continued at dc per discussion w/ Dr Ibanez Gabapentin dose reduced to 300mg at discharge based on renal function repeat labs w/ resolution of anion gap, stable for dc per nephrology and outpt f/u HD M/W/ and f/u Dr Miranda at discharge (5) CHF (congestive heart failure): volume overloaded "Dry weight" reported at 128kg, and was about 1.5kg above on arrival suspect diet at home, hypothyroidism, also possible pasyxmal afib contributing as above Cards consulted as above, diuretics and carvediolol increased and eliquis initiated for afib Weight 125.9kg prior to discharge Cards f/u at discharge (6) Hypothyroidism: TSH elevated but normal T4/t3 on check, however of note patient reports he has not had this medication for several months resumed Synthroid 50mcg and given new rx at discharge outpt f/u PCP (7) Hyperglycemia due to diabetes mellitus: BSGs to 400s on arrival w/ elevated anion gap, volume overloaded no DKA on exam, diuretics ordered. avoiding IVF given volume overload state and pharmacy consulted suspect patient w/ noncomplaince at home as reporting BSGs 300-400s at home at baseline, sugary drinks DM educator consulted but weekend and patient wanting to go home BSGs improved and stable on DM diet w/ adequate coverage and not missing doses Encouraged compliance w/ medications at home. Repeat A1c did improved to the 8s industrial safety and health specialist consulted for patient to arrange endocrinology follow up at discharge (8) Anemia: prior in the 9s earlier this year, most recently 11s volume overload/anemia/hypothyroidism asa above no bleeding reported repeat hgb 10.2, however no bleeding reported f/u nephro for micera w/ HD as outpatient instructed patient to monitor for any bleeding on his eliquis (9) Elevated troponin: suspect demand from volume overload/hyperglycemia/afib rvr and decreased/remain ed flat on repeat management of other problems as above contributing (10) Uncontrolled type 1 diabetes mellitus with kidney complication, with long- term current use of insulin: suspect dietary issues at home/soda/etc DM educator consulted, a1c ordered for AM and 8.6 and endo f/u at discharge recommended (11) Diabetic nephropathy: ESRD on HD, Nephro consulted as above (12) Acute hyperglycemia: improving w/ treatment compliance at home recommended, a1c is improved from prior but pt w/ sugars in 300-400s at baseline reported f/u endo as outlined Plan patient wanting to go home and discussed w/ card/nephro as outlined - medications adjustments as indicated and eliquis continued at discharge medication compliance encouraged and f/u with cards/nephro/pcp at discharge and CM will work on getting him appt w/ endocrinology when they return next week on Saturday Total Time Total Time Spent Total Time Spent (In Minutes): 60 Discharge Plan Discharge Items Patient Disposition: Home - Self-Care Reason For Visit: SOB, SINUS TACHYCARDIA,HYPERGLYCEMIA,VOLUME OVERLO Discharge Diagnosis: SOB, Afib, Volume Overload Goals: You have been hospitalized for an acute medical problem. During your stay at [facility], we have made an effort to correct the problem that brought you to the hospital while keeping you as comfortable as possible. Medications were used to bring your condition under control and your discharge instructions will include directions for any medications you should take after leaving the hospital. Please make sure you see your Primary Care Provider as part of your follow up plan. 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 Call non-emergency contact if: you have any medication questions, your symptoms worsen, your pain is not controlled and you have a fever Follow-up/Referrals: Landry Miranda MD [Physician] - Maki Peterson MD [Primary Care Provider] - 11/13/22 2:00 pm Rich Marie MD [Physician] - Diet: Carb Count or DM1, Dialysis Renal, Heart Healthy, Low Potassium (2gm) and Low Sodium (2gm) Fluids: 1200ml (5 cups) Addtl Attending Provider Instructions: You have been hospitalized for shortness of breath and palpitations and found to be in an irregular heart rhtyhm and cardiology was consulted and your carvedilol was increased to 12.5mg by mouth twice daily. We consulted Nephrology and you underwent dialysis and labs have improved. We have increased your Bumex to 4mg (2 tablets) TWICE daily by mouth to help prevent volume overload as discussed with Dr Ibanez and you should follow up with nephrology and cardiology at discharge. Given atrial fibrillation and risk for stroke, we have started you on Eliquis for a blood thinner and this should be taken TWICE DAILY. PLEASE DO NOT SKIP ANY DOSES. Your blood sugars were also quite elevated and we suspect some noncompliance at home with medications and are encouraging better diet at home/less carbs and sugars and follow up with endocrinology at discharge. Your gabapentin was also at a higher dose than you should be taking with your renal failure and this has been reduced for your kidney function to 300mg ONCE daily. You should RESUME your thyroid (levothyroxine) daily in the morning before eating/other medications to prevent recurrence of afib and also help with constipation and fatigue. You should follow up with primary care in the next 7-10 days to monitor your status after discharge. Please return to the ER with any worsening shortness of breath, fluttering, bleeding, fevers/chest pain, or for any other symptoms concerning for you. It has been a pleasure being a part of the medical team providing for you while you have been in the hospital. Take care! Pending Studies at Discharge: No Stand-Alone Forms: [facility], Smoking Cessation Medications and DC Order Prescriptions: New Eliquis 5 mg Tablet 5 mg PO BID 30 Days Qty: 60 2RF carvedilol 12.5 mg Tablet 12.5 mg PO BID 30 Days Qty: 60 0RF gabapentin 300 mg Capsule 300 mg PO QAM Qty: 30 0RF bumetanide 2 mg tablet 4 mg PO BID 30 Days Qty: 120 0RF Continued (DME) Ketostix Strip See Rx Instructions .ROUTE .MEDSUPPLY Qty: 100 3RF Rx Instructions: As directed (DME) pen needle, diabetic [Comfort EZ Pen [place]] 29 gauge x 1/2" needle See Rx Instructions .ROUTE .MEDSUPPLY Qty: 400 3RF Rx Instructions: use 4 x daily duloxetine [Cymbalta] 60 mg capsule,delayed release(DR/EC) 60 mg PO QAM Qty: 90 3RF pantoprazole [Protonix] 40 mg tablet,delayed release (DR/EC) 40 mg PO QAM Qty: 90 3RF (DME) Dexcom G6 Fingerprint Clerk Misc See Rx Instructions .Route Qty: 1 0RF Rx Instructions: As directed (DME) Dexcom G6 Sensor Device See Rx Instructions .Route Qty: 3 5RF Rx Instructions: As directed RenaPlex-D 800 mcg-12.5 mg -2,000 unit tablet 1 tab PO DAILY Qty: 30 4RF Patient Comments: I ran out of the medication, so I haven't been taking it. If I could get a new prescription I would resume taking it. insulin aspart U-100 100 unit/mL (3 mL) insulin pen 60 unit subcut TID 90 Days Qty: 162 3RF (DME) OneTouch Verio test strips Strip See Rx Instructions .ROUTE .MEDSUPPLY Qty: 400 3RF Rx Instructions: Test 4 times daily (DME) blood-glucose meter [OneTouch Verio Flex meter] Misc See Rx Instructions .ROUTE .MEDSUPPLY Qty: 1 0RF Rx Instructions: As directed (DME) lancets [OneTouch Delica Lancets] 33 gauge misc See Rx Instructions .ROUTE .MEDSUPPLY Qty: 400 3RF Rx Instructions: test blood suigars 4 x daily cinacalcet [Sensipar] 60 mg tablet 60 mg PO HS (DME) Dexcom G6 Transmitter Device See Rx Instructions .Route Qty: 1 1RF Rx Instructions: As directed atorvastatin [Lipitor] 80 mg tablet 80 mg PO HS aspirin 81 mg tablet,delayed release (DR/EC) 81 mg PO QPM calcium acetate(phosphat bind) 667 mg capsule 0 mg PO TID Rx Instructions: Patient takes 3 capsules with each main meal of the day. Velphoro 500 mg tablet,chewable 0 mg PO TID Rx Instructions: Patient takes 1 tablet by mouth with each snack. insulin detemir U-100 100 unit/mL (3 mL) insulin pen 0 unit SQ PM Rx Instructions: Pt has scaled back to 40 units from 60 units, MD unaware per pt. levothyroxine [Synthroid] 50 mcg tablet 50 mcg PO QAM Qty: 30 2RF Discontinued bumetanide 2 mg tablet See Rx Instructions .ROUTE .COMPLEX Qty: 270 3RF Rx Instructions: 1 tab PO QAM and 2 tabs PO QPM gabapentin [Neurontin] 300 mg capsule 600 mg PO BID Qty: 360 3RF carvedilol 6.25 mg Tablet 6.25 mg PO BID Qty: 60 0RF Discharge Orders: Discharge Order (Routine); Ordered 11/03/22 Ordered By: Destiny Richards Admission Data Admit Date/Time: 11/02/22 09:30 Attending Provider: Neymar Cartwright Admit Provider: Neymar Cartwright Primary Care Provider: Maki Peterson Other Providers: Neymar Cartwright ; Rich Marie ; Adrianne Kennedy Other Interventions: Discharge Summary Assessment (RN) Last Done: 11/03/22 13:42 Supervising Physician Co-Signing Physician Notes The patient was seen by me. The chart was reviewed. Case discussed with KALA Castle. Agree with assessment and plan Coding Level of Care Code 58326 INP/OBS DISCH >30 MIN Diagnoses Atrial fibrillation with rapid ventricular response I48.91 SOB (shortness of breath) R06.02 Atrial fibrillation I48.91 ESRD (end stage renal disease) N18.6 CHF (congestive heart failure) I50.9 Heart failure chronicity: acute Heart failure type: unspecified Hypothyroidism E03.9 Hypothyroidism type: unspecified Hyperglycemia due to diabetes mellitus E11.65 Anemia D64.9 Anemia type: unspecified type Elevated troponin R77.8 Uncontrolled type 1 diabetes mellitus with kidney complication, with long-term current use of insulin E10.29; E10.65 Diabetic nephropathy E11.21 Acute hyperglycemia R73.9
== END 2022-11-03 14:27 | disposition home or self-care (01) | DRG 309 ==
LOC: ED 06:51 → 4W 09:30

== ENCOUNTER 2023-03-10 02:48 | Inpatient (IN) ==
[2023-03-10 04:02] LABS: Basophils # (auto) 0.01 K/uL (0.00-0.20); Basophils % (auto) 0.2 %; Eosinophils # (auto) 0.12 K/uL (0.00-0.50); Eosinophils % (auto) 2.2 %; Hematocrit (blood only) 26.1 % (42.0-52.0); Hemoglobin 8.1 g/dl (14.0-18.0); Immature Granulocytes # (auto) 0.01 K/uL (0.01-0.20); Immature Granulocytes % (auto) 0.2 %; Lymphocytes # (auto) 1.25 K/uL (1.20-3.40); Lymphocytes % (auto) 22.5 %; Mean Corpuscular Hemoglobin 29.6 pg (25.0-34.0); Mean Corpuscular Volume 95.3 fL (80.0-100.0); Mean Platelet Volume 10.8 fL (9.4-12.4); Monocytes # (auto) 0.36 K/uL (0.11-0.59); Monocytes % (auto) 6.5 %; Neutrophils % (auto) 68.4 %; Platelet Count 159 K/uL (130-400); RDW Coefficient of Variation 15.9 % (11.5-14.5); RDW Standard Deviation 54.3 fL (36.4-46.3); Red Blood Count 2.74 M/uL (4.70-6.10); White Blood Count 5.55 K/ul (4.8-10.8)
[2023-03-10 04:50] LABS: Alanine Aminotransferase 14 U/L (7-52); Albumin Level 3.8 gm/dl (3.4-5.0); Alkaline Phosphatase 185 U/L (34-104); Anion Gap 8 (3-11); Aspartate Aminotransferase 20 U/L (13-39); BUN Creatinine Ratio 5.2 (10-20); Bilirubin,Total 0.9 mg/dl (0.2-1.0); Blood Urea Nitrogen 36 mg/dl (6-23); Calcium 10.2 mg/dl (8.6-10.3); Carbon Dioxide 35 mmol/L (21-32); Chloride 92 mmol/L (98-107); Est GFR (African American) 10.3 ml/min; Est GFR (Non-African American) 8.9 ml/min; Globulin 3.8 gm/dl (2.5-4.0); Glucose 118 mg/dl (70-99(Fasting)); Potassium 4.6 mmol/L (3.5-5.1); Sodium 135 mmol/L (136-145); Total Protein 7.6 gm/dl (6.0-8.3)
--- NOTE | 2023-03-10 07:18 | Emergency Department Note ---
Impression & Plan CHF (congestive heart failure), Hypoxia, Insomnia, Anxiety Admit to the [facility] ED Provider Note NAME: VIJAYA HAMILTON AGE: 42 SEX: Male INFORMANT: Patient ED PROVIDER(S): Lizbeth Spivey DO CHIEF COMPLAINT: Anxiety and insomnia PLAN: Disposition: Admit to the [facility] MEDICAL DECISION MAKING: This is a 42-year-old male patient who presents to the emergency department having not slept in the past 5 to 7 days. Patient explains that he suffers from sleep apnea and is due to have a sleep study done at the end of April of next year. He feels very anxious by living alone. He explains that his brother moved out in August of this year because he got . The patient feels very anxious living alone because of all of his health issues. Patient's oxygen saturations continued to drop below 90 without supplemental oxygen. Chest x-ray shows evidence of fluid overload and bilateral pleural effusions. I reviewed the discharge summary where the patient was admitted for congestive heart failure at the end of January. It is an end-stage renal failure patient on dialysis Saturday, Saturday, Saturday. The patient was given IV Bumex here in the emergency department which can typically help with his fluid overload but he may require dialysis today. I discussed the case with the [facility] Hospitalist and they will evaluate for further inpatient care. Laboratory studies reveal no evidence of leukocytosis. The patient's hemoglobin is 8.1 which is stable and typical for him. Creatinine is 6.9 which is at baseline. Glucose is 118. Electrolytes are unremarkable. Care/management discussed with: The esthetician and manager medical spa and Dr. Cat Triage Nursing notes: Reviewed and agree with them. Vital Signs: reviewed and remarkable for hypertension Chronic Medical/Social Conditions affecting care: Patient lives alone has multiple health issues Prior/ Outside/ External records reviewed: PCP visit from 03/05/2023 to ensure that the patient's legs have not developed any lower extremity wounds. Patient has chronic lower extremity venous insufficiency. I also reviewed the discharge summary from [facility] where the patient was admitted for congestive heart failure at the end of January of this year. Differential Diagnosis: Sleep apnea, anxiety, insomnia, cardiac dysrhythmia, CHF Diagnostics, independently interpreted by me: ECG: Normal sinus rhythm at a rate of [address] segment elevation or signs of ischemia. There is no ectopy. Cardiac Monitoring: Normal sinus rhythm at a rate of 82 Imaging studies: Portable chest x-ray: As per my independent interpretation- bilateral pleural effusions with congestive heart failure HPI: 42 year old Male arrives for evaluation of insomnia and anxiety. Patient states that he has not slept in 5 to 7 days and suffers from sleep apnea. He describes having severe anxiety attack at nighttime over the past couple of days. In fact, he has called EMS to his house nightly over the past couple of nights but has not been transported to the hospital. Tonight, he did not want to call them back to his home so he asked a friend to bring him to the hospital. Patient does describe increasing weakness. He states that when he gets up and walks his legs become numb that he has to sit down or he will fall. He states that he "is a mess." Patient does describe some shortness of breath and gasping for air when he tries to fall asleep but believes this is related to his sleep apnea. PAST MEDICAL HISTORY: See Below, PAST SURGICAL HISTORY: See Below, SOCIAL HISTORY: See Below, HOME MEDICATIONS: See list ALLERGIES: Lisinopril VITALS: See Below PHYSICAL EXAMINATION: HEENT: Head - normocephalic and atraumatic. Pupils are equal, round, and reactive to light. Extraocular eye muscles are intact, and sclera are anicteric. Nose - moist nasal mucosa without discharge. Mouth - moist buccal mucosa. Oropharynx is nonerythematous and there is no tonsillar exudate or edema noted. Neck: Supple; no JVD, nuchal rigidity, cervical lymphadenopathy, or auscultated bruits. Heart: Regular rate and rhythm. There is a normal S1 and S2 with no murmurs, clicks, or gallops appreciated. Lungs: Diminished breath sounds in all lung blake with rales at both bases. Abdomen: Soft, completely nontender, nondistended, with good bowel sounds. There are no palpable pulsatile masses or hepatosplenomegaly. There is no guarding, rigidity, or rebound noted. Extremities: No evidence of cyanosis, clubbing, or edema. There are easily palpable peripheral pulses. Skin: warm and dry with good turgor and no rashes. 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 A complete history and physical was performed. A twelve-lead EKG was obtained. An order was placed for continuous cardiac monitoring. The patient was in a normal sinus rhythm at a rate of 82. Patient's O2 saturation continued to drop below 90 on room air and he was placed on an oxy mask, especially when he was sleeping. Portable chest x-ray was performed and showed evidence of congestive heart failure. The patient was given a dose of IV Bumex. Multiple previous records were reviewed. I discussed the case with the [facility] Hospitalist and they will evaluate for further inpatient care. Past Med/Surg History Medical History Hypoxia Respiratory failure with hypoxia Acute hyperglycemia Atrial fibrillation with rapid ventricular response Renal failure History of COVID-19 DX'D [facility] 04/28/21 COUGH-HOSPITALIZED X 1 DAY-RECOVERED AT HOME-RESOLVED Hyperosmolar hyperglycemic state (HHS) ESRD (end stage renal disease) Thrombosis of arteriovenous dialysis fistula (~02/15/20) Erectile dysfunction GERD (gastroesophageal reflux disease) Well controlled and stable ESRD (end stage renal disease) requiring hemodialysis. MWF at [facility]. Diabetic retinopathy Hypertension Hypothyroidism Diabetic peripheral neuropathy associated with type 1 diabetes mellitus Type 1 diabetes Depression Chronic venous insufficiency H/O febrile seizure as a child (every year until he was 11 years old) no problems since. High cholesterol Surgical History History of esophagogastroduodenoscopy (EGD) H/O detached retina repair S/P arteriovenous (AV) fistula creation left side, unable to use Family History Mother Diabetes Coronary heart disease Hypertension Father Coronary heart disease Hypertension Brother Coronary heart disease Kidney disease Uncle Colorectal cancer Grandmother Diabetes Aunt Diabetes Unknown Dyslipidemia Grandfather (Maternal) Diabetes Other Cancer No family history of adverse response to anesthesia Social History Smoking Status: Never smoker Second Hand Exposure: No; Do You Dip or Chew Tobacco: No; Hx Alcohol Use: Yes Alcohol type: beer Hx Substance Use: No Preferred Language: Azeri Communication Ability: Effective Visual Impairment: No Limitations Hearing Ability: Normal 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 Required: No Beliefs That Will Affect Care: None marital status: Single Current Living Situation: Alone Current Living Situation Comment: Brother 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" How many Children do You have: 0 Feels Safe at Home: Yes Dental Care, Regularly: No Physical Activity Frequency: Does not Exercise Seatbelt Use: always Sunscreen Use: No Assistive Devices: Cane Allergies Allergies Allergy/AdvReac Type Severity Reaction Status Date / Time lisinopril AdvReac Intermediate COUGH Verified 03/05/23 16:02 Home Meds Home Medications Medication Instructions Recorded Confirmed calcium acetate(phosphat bind) 667 2,001 mg PO TIDM 08/22/22 03/10/23 mg capsule insulin aspart U-100 100 unit/mL 20 unit subcut TID 12/31/22 03/10/23 (3 mL) subcutaneous pen bumetanide 2 mg tablet 4 mg PO BID 01/26/23 03/10/23 gabapentin 300 mg capsule 600 mg PO BID 01/26/23 03/10/23 acetone (urine) test (Ketostix 01/29/23 03/05/23 strips) insulin detemir U-100 100 unit/mL 30 unit subcut PM 03/10/23 03/10/23 (3 mL) subcutaneous pen metoprolol succinate 50 mg 50 mg PO BID 03/10/23 03/10/23 tablet,extended release 24 hr Previous Rx's Medication Instructions Recorded OneTouch Delica Lancets 33 gauge #400 ea 10/16/19 (lancets) pen needle, diabetic 29 gauge x #400 ea 01/25/21 1/2" (Comfort EZ Pen [place]) blood-glucose meter,continuous #1 ea 05/25/22 (Dexcom G6 Continuity Reader) blood-glucose sensor (Dexcom G6 #3 ea 05/25/22 Sensor device) duloxetine 60 mg capsule,delayed 60 mg PO QAM #90 caps 05/25/22 release (Cymbalta) pantoprazole 40 mg tablet,delayed 40 mg PO QAM #90 tabs 05/25/22 release (Protonix) vit B,C-folic ac 800 mcg-zinc 12.5 1 tab PO DAILY #30 tabs 06/29/22 mg-selen-D3 2,000 unit-vit E tablet (RenaPlex-D) levothyroxine 50 mcg tablet 50 mcg PO QAM #30 tabs 11/03/22 (Synthroid) blood-glucose transmitter (Dexcom #1 ea 12/14/22 G6 Transmitter device) blood sugar diagnostic (OneTouch #400 ea 01/28/23 Verio test strips) blood-glucose meter (OneTouch #1 ea 01/28/23 Verio Flex Meter) lancets 33 gauge (OneTouch Delica #400 ea 01/28/23 Plus Lancet) apixaban 5 mg tablet (Eliquis) 5 mg PO BID 30 days #60 tabs 02/06/23 cinacalcet 60 mg tablet 60 mg PO DAILY #30 tabs 02/15/23 tramadol 50 mg tablet 50 mg PO Q6H PRN pain #15 tabs 02/27/23 atorvastatin 80 mg tablet (Lipitor) 80 mg PO DAILY #90 tabs 03/05/23 Results & Data (ED) Vital Signs Vital Signs - 24 hr 03/10/23 02:55 03/10/23 03:11 03/10/23 03:16 Temperature 36.3 C L Temperature Source Temporal Artery Scan Pulse Rate 73 74 73 Pulse Rate [Apical] Pulse Rhythm Pulse Rhythm [Apical] Pulse Strength [Apical] Respiratory Rate 18 16 Respiratory Effort / Characteristics Non-Labored Respiratory Depth Normal Blood Pressure 178/94 H 177/102 H Blood Pressure [Right Arm] Blood Pressure Mean 122 127 Blood Pressure Mean [Right Arm] Pulse Oximetry 98 96 Oxygen Delivery Method Room Air Oxygen Flow Rate Sepsis Recent Fever Within 48 Hours No Sepsis New/Unexplained Change in Mental Status No Sepsis Action Taken by Nursing No Action Required 03/10/23 03:18 03/10/23 03:18 03/10/23 03:30 Temperature Temperature Source Pulse Rate 74 Pulse Rate [Apical] 74 Pulse Rhythm Pulse Rhythm [Apical] Regular Pulse Strength [Apical] Normal Respiratory Rate 18 20 Respiratory Effort / Characteristics Non-Labored Respiratory Depth Normal Blood Pressure Blood Pressure [Right Arm] 177/102 H Blood Pressure Mean Blood Pressure Mean [Right Arm] 127 Pulse Oximetry 94 94 99 Oxygen Delivery Method Room Air Room Air Oxygen Flow Rate 0 Sepsis Recent Fever Within 48 Hours Sepsis New/Unexplained Change in Mental Status Sepsis Action Taken by Nursing 03/10/23 03:38 03/10/23 04:00 03/10/23 04:30 Temperature Temperature Source Pulse Rate 72 72 71 Pulse Rate [Apical] Pulse Rhythm Regular Pulse Rhythm [Apical] Pulse Strength [Apical] Respiratory Rate 18 22 13 Respiratory Effort / Characteristics Respiratory Depth Blood Pressure Blood Pressure [Right Arm] Blood Pressure Mean Blood Pressure Mean [Right Arm] Pulse Oximetry 96 98 99 Oxygen Delivery Method [place] Oxygen Flow Rate 2 Sepsis Recent Fever Within 48 Hours Sepsis New/Unexplained Change in Mental Status Sepsis Action Taken by Nursing 03/10/23 05:00 03/10/23 05:30 03/10/23 06:00 Temperature Temperature Source Pulse Rate 71 70 70 Pulse Rate [Apical] Pulse Rhythm Pulse Rhythm [Apical] Pulse Strength [Apical] Respiratory Rate 19 17 22 Respiratory Effort / Characteristics Respiratory Depth Blood Pressure Blood Pressure [Right Arm] Blood Pressure Mean Blood Pressure Mean [Right Arm] Pulse Oximetry 100 100 100 Oxygen Delivery Method Oxygen Flow Rate Sepsis Recent Fever Within 48 Hours Sepsis New/Unexplained Change in Mental Status Sepsis Action Taken by Nursing 03/10/23 07:08 03/10/23 08:59 Temperature Temperature Source Pulse Rate Pulse Rate [Apical] 72 72 Pulse Rhythm Pulse Rhythm [Apical] Pulse Strength [Apical] Respiratory Rate 18 22 Respiratory Effort / Characteristics Non-Labored Spontaneous Non-Labored Spontaneous Respiratory Depth Normal Normal Blood Pressure Blood Pressure [Right Arm] 172/102 H 204/102 H Blood Pressure Mean Blood Pressure Mean [Right Arm] 125 136 Pulse Oximetry 95 100 Oxygen Delivery Method Room Air Nasal Cannula Oxygen Flow Rate 3 Sepsis Recent Fever Within 48 Hours Sepsis New/Unexplained Change in Mental Status Sepsis Action Taken by Nursing Laboratory Data 03/10/23 03:10 03/10/23 03:10 Lab Results 03/10/23 03/10/23 Range/Units 03:10 07:04 WBC 5.55 (4.8-10.8) K/ul RBC 2.74 L (4.70-6.10) M/uL Hgb 8.1 L (14.0-18.0) g/dl Hct 26.1 L (42.0-52.0) % MCV 95.3 (80.0-100.0) fL MCH 29.6 (25.0-34.0) pg MCHC 31.0 L (32.0-36.0) g/dL RDW Std Deviation 54.3 H (36.4-46.3) fL RDW Coeff of Yuki 15.9 H (11.5-14.5) % Plt Count 159 (130-400) K/uL MPV 10.8 (9.4-12.4) fL Immature Gran % (Auto) 0.2 % Neut % (Auto) 68.4 % Lymph % (Auto) 22.5 % [place] % (Auto) 6.5 % Eos % (Auto) 2.2 % Baso % (Auto) 0.2 % Neut # (Auto) 3.80 (1.40-6.50) K/uL Lymph # (Auto) 1.25 (1.20-3.40) K/uL [place] # (Auto) 0.36 (0.11-0.59) K/uL Eos # (Auto) 0.12 (0.00-0.50) K/uL Baso # (Auto) 0.01 (0.00-0.20) K/uL Immature Gran # (Auto) 0.01 (0.01-0.20) K/uL Sodium 135 L (136-145) mmol/L Potassium 4.6 (3.5-5.1) mmol/L Chloride 92 L (98-107) mmol/L Carbon Dioxide 35 H (21-32) mmol/L Anion Gap 8 (3-11) BUN 36 H (6-23) mg/dl Creatinine 6.99 H* (0.6-1.4) mg/dl Est Cr Clr Drug Dosing Not Reportable Est GFR ( Amer) 10.3 ml/min Est GFR (Non-Af Amer) 8.9 ml/min BUN/Creatinine Ratio 5.2 L (10-20) Glucose 118 H (70-99(Fasting)) mg/dl Calcium 10.2 (8.6-10.3) mg/dl Total Bilirubin 0.9 (0.2-1.0) mg/dl AST 20 (13-39) U/L ALT 14 (7-52) U/L Alkaline Phosphatase 185 H (34-104) U/L B-Natriuretic Peptide 1788 H (0-100) pg/ml Total Protein 7.6 (6.0-8.3) gm/dl Albumin 3.8 (3.4-5.0) gm/dl Globulin 3.8 (2.5-4.0) gm/dl Albumin/Globulin Ratio 1.0 (0.9-2) Administered Medications Apixaban (Apixaban 5 Mg Tablet) 5 mg PO BID [facility] Stop: 04/09/23 15:14 Last Admin: 03/10/23 21:06 Dose: 5 mg Documented By: Admin: 03/10/23 21:01 Dose: Not Given Documented By: CARLOS Bumetanide (Bumetanide 1 Mg Tab) 4 mg PO BID17 [facility] Stop: 04/09/23 16:59 Last Admin: 03/10/23 21:05 Dose: 4 mg Documented By: CARLOS Calcium Acetate (Calcium Acetate 667 Mg Cap/Tab) 2,001 mg PO TIDM [facility] Stop: 04/09/23 11:59 Last Admin: 03/10/23 21:03 Dose: 2,001 mg Documented By: Admin: 03/10/23 17:15 Dose: Not Given Documented By: BASHIR Duloxetine HCl (Duloxetine Hcl 60 Mg Cap) 60 mg PO QAM [facility] Stop: 04/09/23 15:59 Last Admin: 03/10/23 21:06 Dose: 60 mg Documented By: CARLOS Gabapentin (Gabapentin 300 Mg Cap) 600 mg PO BID [facility] Stop: 04/09/23 10:39 Last Admin: 03/10/23 21:06 Dose: 600 mg Documented By: Admin: 03/10/23 17:15 Dose: Not Given Documented By: BASHIR Insulin Aspart (Insulin Aspart Per Unit Charge) 0 units SC ACHS [facility]; Protocol Stop: 04/09/23 16:29 Last Admin: 03/10/23 21:13 Dose: 3 units Documented By: CARLOS Co-signed By: BENTLEY Admin: 03/10/23 17:16 Dose: Not Given Documented By: GPYoli Insulin Glargine (Lantus Per Unit Charge) 20 units SC HS [facility]; Protocol Stop: 04/09/23 20:59 Last Admin: 03/10/23 21:12 Dose: 20 units Documented By: CARLOS Co-signed By: BENTLEY Levothyroxine Sodium (Levothyroxine Sodium 50 Mcg Tablet) 50 mcg PO DAILYBB [facility] Stop: 04/09/23 15:59 Last Admin: 03/10/23 21:06 Dose: 50 mcg Documented By: CARLOS Metoprolol Succinate (Metoprolol Succ 50mg Ext Rel Tab) 50 mg PO BID [facility] Stop: 04/09/23 15:14 Last Admin: 03/10/23 21:03 Dose: 50 mg Documented By: Admin: 03/10/23 21:01 Dose: Not Given Documented By: CARLOS Miscellaneous (Patient's Height &/Or Weight Needed) 1 each N/A Q2H [facility] Stop: 04/09/23 21:44 Last Admin: 03/10/23 21:41 Dose: Not Given Documented By: Admin: 03/10/23 21:13 Dose: 1 each Documented By: Admin: 03/10/23 21:06 Dose: 1 each Documented By: Admin: 03/10/23 17:15 Dose: Not Given Documented By: Admin: 03/10/23 17:15 Dose: Not Given Documented By: Admin: 03/10/23 17:15 Dose: Not Given Documented By: GPYoli Discontinued Medications Epoetin Eloy (Epoetin [place] 10,000 Units/Ml Vial) 10,000 units IV ONE ONE Stop: 03/10/23 16:01 Last Admin: 03/10/23 17:22 Dose: 10,000 units Documented By: VAN Bumetanide 4 mg/ Syringe 16 mls @ 4 mls/min IV ONE ONE Stop: 03/10/23 08:29 Last Admin: 03/10/23 08:58 Dose: 4 mls/min Documented By: JANET Iron Sucrose 100 mg/ Syringe 5 mls @ 1 mls/min IV TODAY ONE Stop: 03/10/23 16:04 Last Admin: 03/10/23 17:22 Dose: 1 mls/min Documented By: VAN Discharge Plan Visit Data Chief Complaint: Shortness of Breath/Dyspnea Stated Complaint: SOB ED Provider: Lizbeth Spivey Discharge Problem: CHF (congestive heart failure), Hypoxia, Insomnia, Anxiety Patient Disposition: Admitted As Inpatient Discharge Instructions Interventions: ED Discharge Assessment Last Done: 03/10/23 11:48
--- NOTE | 2023-03-10 07:19 | XRay Report ---
XR chest 1V portable HISTORY: Dyspnea COMPARISON: Chest 03/08/2023. FINDINGS: No pneumothorax. There are low lung volumes. The heart is mildly enlarged. There is diffuse interstitial/vascular thickening consistent with pulmonary edema. This has progressed. There are tra ce bilateral pleural effusions. No acute fractures. IMPRESSION: Cardiomegaly with interstitial pulmonary edema and trace bilateral pleural effusions. This has progre ssed. ACT 112: Negative or not required by law. Electronically signed by: Gordo Kaye M.D. 03/10/2023 7:18 AM
[2023-03-10] MEDS ORDERED: BUMETANIDE 4 MG in SYRINGE 0 ML IV ONE (08:26)
[2023-03-10] MEDS ORDERED: traMADol HCL 50 MG TABLET PO PRN (09:39)
--- NOTE | 2023-03-10 09:46 | History & Physical Report ---
Date of Service March 10, 2023 Assessment & Plan (1) Acute respiratory failure with hypoxemia: Plan: Acute hypoxic respiratory failure in a 42 yo male with SOB and ESRD. Chest xray is showing more opacity. BNP is also higher. Will admit patient Patient will continue on DIuretics Plan for dialysis (2) ESRD on dialysis: Plan: Patient is nomrlaly on MWF, will consult Nephro and will get dialysis today (3) Atrial fibrillation: Plan: resume metoporlol and eliquis. (4) CHF (congestive heart failure): Plan: as above. (5) Uncontrolled type 1 diabetes mellitus with neurologic complication, with long-term current use of insulin: Plan: Blood sugar checks ACHS Short acting with carb ratio Long acting ordered consulted glycemic control (6) Dyslipidemia: Plan: COntinue STtain History of Present Illness Chief Complaint: SOB Primary Care Provider: Maki Peterson MD 42 yo male with a PMH significant for ESRD on HD MWF, Type 1 DM, afib on Eliquis, HFpEF, anemia, and hypothyroidism who presented to the [facility] ED with complaints of anxiety and Shortness of breath. Per the ED the patient was reportedly hypoxic on RA. Patient labs shown increased BNP and chest xray noted worseneing pulmonary congestion. Patient has been compliant with his dialysis. Patient has noted worsening SOB overnight which prompted him to come to the ED> PAtient reports he does not weight himself. He denies recent sick contacts, chest pain, hemoptysis, abd pain, nausea, vomiting, diarrhea, dysuria, hematuria, melena, diarrhea, increased LE swelling from baseline, and recent trauma. When asked, he states that he does make urine despite being on dialysis. Allergies Allergy/AdvReac Type Severity Reaction Status Date / Time lisinopril AdvReac Intermediate COUGH Verified 03/05/23 16:02 Home Medications Medication Instructions Recorded Confirmed Type OneTouch Delica Lancets 33 gauge #400 ea 10/16/19 03/05/23 Rx (lancets) pen needle, diabetic 29 gauge x #400 ea 01/25/21 03/05/23 Rx 1/2" (Comfort EZ Pen [place]) blood-glucose meter,continuous #1 ea 05/25/22 03/05/23 Rx (Dexcom G6 Digital Marketing Associate) blood-glucose sensor (Dexcom G6 #3 ea 05/25/22 03/05/23 Rx Sensor device) duloxetine 60 mg capsule,delayed 60 mg PO QAM #90 caps 05/25/22 03/10/23 Rx release (Cymbalta) pantoprazole 40 mg tablet,delayed 40 mg PO QAM #90 tabs 05/25/22 03/10/23 Rx release (Protonix) vit B,C-folic ac 800 mcg-zinc 12.5 1 tab PO DAILY #30 tabs 06/29/22 03/10/23 Rx mg-selen-D3 2,000 unit-vit E tablet (RenaPlex-D) calcium acetate(phosphat bind) 667 2,001 mg PO TIDM 08/22/22 03/10/23 History mg capsule levothyroxine 50 mcg tablet 50 mcg PO QAM #30 tabs 11/03/22 03/10/23 Rx (Synthroid) blood-glucose transmitter (Dexcom #1 ea 12/14/22 03/05/23 Rx G6 Transmitter device) insulin aspart U-100 100 unit/mL 20 unit subcut TID 12/31/22 03/10/23 History (3 mL) subcutaneous pen bumetanide 2 mg tablet 4 mg PO BID 01/26/23 03/10/23 History gabapentin 300 mg capsule 600 mg PO BID 01/26/23 03/10/23 History blood sugar diagnostic (OneTouch #400 ea 01/28/23 03/05/23 Rx Verio test strips) blood-glucose meter (OneTouch #1 ea 01/28/23 03/05/23 Rx Verio Flex Meter) lancets 33 gauge (OneTouch Delica #400 ea 01/28/23 03/05/23 Rx Plus Lancet) acetone (urine) test (Ketostix 01/29/23 03/05/23 History strips) apixaban 5 mg tablet (Eliquis) 5 mg PO BID 30 days #60 tabs 02/06/23 03/10/23 Rx cinacalcet 60 mg tablet 60 mg PO DAILY #30 tabs 02/15/23 03/10/23 Rx tramadol 50 mg tablet 50 mg PO Q6H PRN pain #15 tabs 02/27/23 03/10/23 Rx atorvastatin 80 mg tablet (Lipitor) 80 mg PO DAILY #90 tabs 03/05/23 03/10/23 Rx insulin detemir U-100 100 unit/mL 30 unit subcut PM 03/10/23 03/10/23 History (3 mL) subcutaneous pen metoprolol succinate 50 mg 50 mg PO BID 03/10/23 03/10/23 History tablet,extended release 24 hr Past Med/Surg History Medical History Hypoxia Respiratory failure with hypoxia Acute hyperglycemia Atrial fibrillation with rapid ventricular response Renal failure History of COVID-19 DX'D [facility] 04/28/21 COUGH-HOSPITALIZED X 1 DAY-RECOVERED AT HOME-RESOLVED Hyperosmolar hyperglycemic state (HHS) ESRD (end stage renal disease) Thrombosis of arteriovenous dialysis fistula (~02/15/20) Erectile dysfunction GERD (gastroesophageal reflux disease) Well controlled and stable ESRD (end stage renal disease) requiring hemodialysis. MWF at [facility]. Diabetic retinopathy Hypertension Hypothyroidism Diabetic peripheral neuropathy associated with type 1 diabetes mellitus Type 1 diabetes Depression Chronic venous insufficiency H/O febrile seizure as a child (every year until he was 11 years old) no problems since. High cholesterol Surgical History History of esophagogastroduodenoscopy (EGD) H/O detached retina repair S/P arteriovenous (AV) fistula creation left side, unable to use Family History Mother Diabetes Coronary heart disease Hypertension Father Coronary heart disease Hypertension Brother Coronary heart disease Kidney disease Uncle Colorectal cancer Grandmother Diabetes Aunt Diabetes Unknown Dyslipidemia Grandfather (Maternal) Diabetes Other Cancer No family history of adverse response to anesthesia Social History Smoking Status: Never smoker Second Hand Exposure: No; Do You Dip or Chew Tobacco: No; Hx Alcohol Use: Yes Alcohol type: beer Hx Substance Use: No Preferred Language: Kittitian Communication Ability: Effective Visual Impairment: No Limitations Hearing Ability: Normal Tactical Debriefer Required: No Beliefs That Will Affect Care: None marital status: Single Current Living Situation: Alone Current Living Situation Comment: Brother 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" How many Children do You have: 0 Feels Safe at Home: Yes Dental Care, Regularly: No Physical Activity Frequency: Does not Exercise Seatbelt Use: always Sunscreen Use: No Assistive Devices: Cane Review of Systems Constitutional: no fever and no body aches Eyes: no blind spots Ear, Nose, Mouth, Throat: no ear pain Respiratory: + dyspnea; no cough Gastrointestinal: no abdominal pain Genitourinary: no dysuria Integumentary: no acne Neurologic: no gait abnormality Psychiatric: + anxiety Endocrine: + fatigue Hematologic / Lymphatic: no easy bleeding Allergy / Immunological: no GI upset with certain foods Physical Exam Physical Exam: General: In no acute distress, stated age, chronically ill appearing but non- toxic HEENT: Normocephalic, atraumatic, Chest/Pulm: Patient using accessory muscles to breath, bibasilar rales. Cardiac: RRR, 2/4 systolic murmur noted Abdomen: normoactive bowel sounds, soft, non-tender to palpation throughout Extremities: AV fistula located located in the left forearm with intact thrill, chronic venous stasis in the BL LE's Skin: Warm, dry, no rashes , lesions, or scars noted; thickening of the BL LE's with changes of chronic venous insufficiency Neuro: Alert and oriented to person, place, month, year, and president, no focal defects, no tremors noted Psych: No acute distress, calm and cooperative during the exam Results & Data Results & Data Vital Signs (Past 12 Hours) Vital Signs Temp Pulse Pulse Resp BP BP Pulse Ox 03/10/23 08:59 72 22 204/102 H 100 03/10/23 07:08 72 18 172/102 H 95 03/10/23 06:00 70 22 100 03/10/23 05:30 70 17 100 03/10/23 05:00 71 19 100 03/10/23 04:30 71 13 99 03/10/23 04:00 72 22 98 03/10/23 03:38 72 18 96 03/10/23 03:30 74 20 99 03/10/23 03:18 74 18 177/102 H 94 03/10/23 03:18 94 03/10/23 03:16 73 16 177/102 H 96 03/10/23 03:11 74 03/10/23 02:55 36.3 C L 73 18 178/94 H 98 O2 Del Method O2 Flow Rate 03/10/23 08:59 Nasal Cannula 3 03/10/23 07:08 Room Air 03/10/23 06:00 11/19/23 05:30 03/10/23 05:00 03/10/23 04:30 03/10/23 04:00 03/10/23 03:38 Oxymask 2 03/10/23 03:30 03/10/23 03:18 Room Air 03/10/23 03:18 Room Air 0 03/10/23 03:16 03/10/23 03:11 03/10/23 02:55 Room Air PG Care Time/CCT Total # of Minutes Spent Total Time Spent with Patient: Total time spent is greater than 50% in coordination of care (as documented) at patient's floor/unit and/or counseling patient: Coding Level of Care Code 26292 INT INP/OBS CARE 375MIN Diagnoses Acute respiratory failure with hypoxemia J96.01 ESRD on dialysis N18.6; Z99.2 Atrial fibrillation I48.91 CHF (congestive heart failure) I50.9 Heart failure chronicity: acute Heart failure type: unspecified Uncontrolled type 1 diabetes mellitus with neurologic complication, with long- term current use of insulin E10.49; E10.65 Dyslipidemia E78.5 (4) CHF (congestive heart failure) Heart failure chronicity: acute Heart failure type: unspecified Qualified Code(s): I50.9 - Heart failure, unspecified
[2023-03-10] MEDS ORDERED: CARBOHYDRATES FOR HYPOGLYCEMIA PO PRN (12:14)
[2023-03-10] MEDS ORDERED: GLUCAGON FOR INJ 1 MG VIAL SQ PRN (12:14)
[2023-03-10] MEDS ORDERED: GLUCOSE 40% GEL 15 GM TUBE PO PRN (12:14)
[2023-03-10] MEDS ORDERED: DEXTROSE 50% 50 ML SYRINGE IV PRN (12:14)
[2023-03-10] MEDS ORDERED: GLUCOSE 10 TAB/TUBE PO PRN (12:14)
[2023-03-10] MEDS ORDERED: PHARMACY GLYCEMIC MGMT CONSULT PRN (12:14)
[2023-03-10] MEDS ORDERED: ACETAMINOPHEN 325 MG TAB PO PRN (13:35)
--- NOTE | 2023-03-10 13:53 | Nephrology Consultation ---
Date of Consultation March 10, 2023 Assessment & Plan (1) ESRD (end stage renal disease): HD MWF at [facility]. Ventura presented to the hospital with dyspnea and volume overload. Emergent HD was coordinated through the ER. Orders and plan of care were discussed with the dialysis nurse. Medications appropriately dosed for kidney function. Gabapentin dose excessive but Ventura feels that he has been tolerating the medication well and lower doses did not control his symptoms adequately in the past. Dietary goals including low sodium and daily fluid restriction were reviewed. Risks associated with excessive fluid stressed. Mr. Snell expressed understanding. AVF with good thrill and bruit. AVF has been functioning well for dialysis. There is a high pitch proximally. Outpatient follow up with vascular will be coordinated. Mr. Snell reports that it has been several years since he has had a fistulogram. (2) Hypertension: BP elevated. Nifedipine was not affordable. Losartan added during hospitalization in January. Volume status hypervolemic. Continue metoprolol succinate as Rx. EDW 124.5 kg. (3) SOB (shortness of breath): CXR reviewed. Combination of accelerated hypertension, volume overload, and possible viral syndrome. Emergent HD coordinated. (4) Anemia: Chronic. Relatively stable. No signs of blood loss reported. Close outpatient monitoring encouraged. History of Present Illness Reason for Consultation: MD aware/SOB. fluid overload, ESRD Requesting Physician: Gil Cat Attending Physician: Gil Cat History of Present Illness Mr. Snell is a 42 year-old male with ESRD who presented to the ER at [facility] with cough and shortness of breath. Mr. Snell has ESRD due to DKD. He started on IHD 03/10 and dialyzes via LUE AVF.He dialyzes at [facility] MWF (4 hr, 2K 2.5Ca, Revaclear 300 dialyzer, Wb 450, Qd 500, EDW 124.5 kg).A full dialysis treatment was completed on Saturday without complications. UF 2.5 L to a post weight of 124.5 kg. Medical history is significant for IDDM (Dx 11 yoa, + retinopathy & neuropathy), morbid obesity, hypothyroidism, anemia, depression/anxiety. Ventura has continued to struggle with high IDWG and uncontrolled hypertension. He was hospitalized twice last month with respiratory distress associated with volume overload. IDWG ranging from 2.5-4.5 L over the past couple of weeks. Mr. Snell presented to the ER today with 2 days of chest congestion and cough. He denies fevers or chills. Symptoms increased yesterday. He suspected possible pneumonia. Presentation is nearly identical to when I saw Ventura in the hospital last month. Hemoglobin stable with readings from [facility] (~8). No melena or hematochezia reported. No fevers or chills. Allergies Allergy/AdvReac Type Severity Reaction Status Date / Time lisinopril AdvReac Intermediate COUGH Verified 03/05/23 16:02 Home Medications Medication Instructions Recorded Confirmed Type OneTouch Delica Lancets 33 gauge #400 ea 10/16/19 03/05/23 Rx (lancets) pen needle, diabetic 29 gauge x #400 ea 01/25/21 03/05/23 Rx 1/2" (Comfort EZ Pen [place]) blood-glucose meter,continuous #1 ea 05/25/22 03/05/23 Rx (Dexcom G6 Locker Attendant) blood-glucose sensor (Dexcom G6 #3 ea 05/25/22 03/05/23 Rx Sensor device) duloxetine 60 mg capsule,delayed 60 mg PO QAM #90 caps 05/25/22 03/10/23 Rx release (Cymbalta) pantoprazole 40 mg tablet,delayed 40 mg PO QAM #90 tabs 05/25/22 03/10/23 Rx release (Protonix) vit B,C-folic ac 800 mcg-zinc 12.5 1 tab PO DAILY #30 tabs 06/29/22 03/10/23 Rx mg-selen-D3 2,000 unit-vit E tablet (RenaPlex-D) calcium acetate(phosphat bind) 667 2,001 mg PO TIDM 08/22/22 03/10/23 History mg capsule levothyroxine 50 mcg tablet 50 mcg PO QAM #30 tabs 11/03/22 03/10/23 Rx (Synthroid) blood-glucose transmitter (Dexcom #1 ea 12/14/22 03/05/23 Rx G6 Transmitter device) insulin aspart U-100 100 unit/mL 20 unit subcut TID 12/31/22 03/10/23 History (3 mL) subcutaneous pen bumetanide 2 mg tablet 4 mg PO BID 01/26/23 03/10/23 History gabapentin 300 mg capsule 600 mg PO BID 01/26/23 03/10/23 History blood sugar diagnostic (OneTouch #400 ea 01/28/23 03/05/23 Rx Verio test strips) blood-glucose meter (OneTouch #1 ea 01/28/23 03/05/23 Rx Verio Flex Meter) lancets 33 gauge (OneTouch Delica #400 ea 01/28/23 03/05/23 Rx Plus Lancet) acetone (urine) test (Ketostix 01/29/23 03/05/23 History strips) apixaban 5 mg tablet (Eliquis) 5 mg PO BID 30 days #60 tabs 02/06/23 03/10/23 Rx cinacalcet 60 mg tablet 60 mg PO DAILY #30 tabs 02/15/23 03/10/23 Rx tramadol 50 mg tablet 50 mg PO Q6H PRN pain #15 tabs 02/27/23 03/10/23 Rx atorvastatin 80 mg tablet (Lipitor) 80 mg PO DAILY #90 tabs 03/05/23 03/10/23 Rx insulin detemir U-100 100 unit/mL 30 unit subcut PM 03/10/23 03/10/23 History (3 mL) subcutaneous pen metoprolol succinate 50 mg 50 mg PO BID 03/10/23 03/10/23 History tablet,extended release 24 hr Patient History Medical History Hypoxia Respiratory failure with hypoxia Acute hyperglycemia Atrial fibrillation with rapid ventricular response Renal failure History of COVID-19 DX'D [facility] 04/28/21 COUGH-HOSPITALIZED X 1 DAY-RECOVERED AT HOME-RESOLVED Hyperosmolar hyperglycemic state (HHS) ESRD (end stage renal disease) Thrombosis of arteriovenous dialysis fistula (~02/15/20) Erectile dysfunction GERD (gastroesophageal reflux disease) Well controlled and stable ESRD (end stage renal disease) requiring hemodialysis. MWF at [facility]. Diabetic retinopathy Hypertension Hypothyroidism Diabetic peripheral neuropathy associated with type 1 diabetes mellitus Type 1 diabetes Depression Chronic venous insufficiency H/O febrile seizure as a child (every year until he was 11 years old) no problems since. High cholesterol Surgical History History of esophagogastroduodenoscopy (EGD) H/O detached retina repair S/P arteriovenous (AV) fistula creation left side, unable to use Family History Mother Diabetes Coronary heart disease Hypertension Father Coronary heart disease Hypertension Brother Coronary heart disease Kidney disease Uncle Colorectal cancer Grandmother Diabetes Aunt Diabetes Unknown Dyslipidemia Grandfather (Maternal) Diabetes Other Cancer No family history of adverse response to anesthesia Social History Smoking Status: Never smoker Second Hand Exposure: No; Do You Dip or Chew Tobacco: No; Hx Alcohol Use: Yes Alcohol type: beer Hx Substance Use: No Preferred Language: Swedish Communication Ability: Effective Visual Impairment: No Limitations Hearing Ability: Normal Awning Maker And Installer Required: No Beliefs That Will Affect Care: None marital status: Single Current Living Situation: Alone Current Living Situation Comment: Brother 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" How many Children do You have: 0 Feels Safe at Home: Yes Dental Care, Regularly: No Physical Activity Frequency: Does not Exercise Seatbelt Use: always Sunscreen Use: No Assistive Devices: Cane Review of Systems Review of Systems: All systems reviewed & are unremarkable except as noted in HPI & below Respiratory: + cough and + chest congestion; no dyspn ea, no hemoptysis and no pain on inspiration Cardiovascular: + lightheadedness; no chest pain, no ort hopnea, no palpitation s and no edema Physical Exam Constitutional: well developed and + morbidly obese; no acute distress Eyes: + anicteric sclerae; no conjunctival abn ormality ENMT: Mouth: no oral mucosal abnormality and oral mucous membranes not dry Neck: normal visual inspection and trachea midline Respiratory: normal respiratory effort Auscultation: lungs clear to auscultation bilaterally and + rales Cardiovascular: Rate/Rhythm: regular rate Heart Sounds: normal S1, normal S2 and + murmur Extremities: + edema and + AV fistula (+thrill and bruit, high pitched proximal) Musculoskeletal: Extremities: no cyanosis and no clubbing Skin: normal turgor; no lesions Neurologic: Motor/Sensory: no tremor and no asterixis Psychiatric: Orientation: alert and oriented x 3 Results & Data Vital Signs (Past 12 Hours) Vital Signs Temp Pulse Pulse Resp BP BP Pulse Ox 03/10/23 10:57 73 19 158/114 H 96 03/10/23 10:14 75 19 190/112 H 93 03/10/23 08:59 72 22 204/102 H 100 03/10/23 07:08 72 18 172/102 H 95 03/10/23 06:00 70 22 100 03/10/23 05:30 70 17 100 03/10/23 05:00 71 19 100 03/10/23 04:30 71 13 99 03/10/23 04:00 72 22 98 03/10/23 03:38 72 18 96 03/10/23 03:30 74 20 99 03/10/23 03:18 74 18 177/102 H 94 03/10/23 03:18 94 03/10/23 03:16 73 16 177/102 H 96 03/10/23 03:11 74 03/10/23 02:55 36.3 C L 73 18 178/94 H 98 O2 Del Method O2 Flow Rate 03/10/23 10:57 Oxymask 3 03/10/23 10:14 Room Air 03/10/23 08:59 Nasal Cannula 3 03/10/23 07:08 Room Air 03/10/23 06:00 03/10/23 05:30 03/10/23 05:00 03/10/23 04:30 03/10/23 04:00 03/10/23 03:38 Oxymask 2 03/10/23 03:30 03/10/23 03:18 Room Air 03/10/23 03:18 Room Air 0 03/10/23 03:16 03/10/23 03:11 03/10/23 02:55 Room Air Laboratory Results Laboratory Results - last 24 hr 03/10/23 03/10/23 03:10 07:04 WBC 5.55 RBC 2.74 L Hgb 8.1 L Hct 26.1 L MCV 95.3 MCH 29.6 MCHC 31.0 L RDW Std Deviation 54.3 H RDW Coeff of Yuki 15.9 H Plt Count 159 MPV 10.8 Immature Gran % (Auto) 0.2 Neut % (Auto) 68.4 Lymph % (Auto) 22.5 Forrest % (Auto) 6.5 Eos % (Auto) 2.2 Baso % (Auto) 0.2 Neut # (Auto) 3.80 Lymph # (Auto) 1.25 Forrest # (Auto) 0.36 Eos # (Auto) 0.12 Baso # (Auto) 0.01 Immature Gran # (Auto) 0.01 Sodium 135 L Potassium 4.6 Chloride 92 L Carbon Dioxide 35 H Anion Gap 8 BUN 36 H Creatinine 6.99 H* Est Cr Clr Drug Dosing Not Reportable Est GFR ( Amer) 10.3 Est GFR (Non-Af Amer) 8.9 BUN/Creatinine Ratio 5.2 L Glucose 118 H Calcium 10.2 Total Bilirubin 0.9 AST 20 ALT 14 Alkaline Phosphatase 185 H B-Natriuretic Peptide 1788 H Total Protein 7.6 Albumin 3.8 Globulin 3.8 Albumin/Globulin Ratio 1.0 Diagnostic Findings XR chest 1V portable COMPARISON: Chest 03/08/2023. FINDINGS: No pneumothorax. There are low lung volumes. The heart is mildly enlarged. There is diffuse interstitial/vascular thickening consistent with pulmonary edema. This has progressed. There are trace bilateral pleural effusions. No acute fractures. IMPRESSION: Cardiomegaly with interstitial pulmonary edema and trace bilateral pleural effusions. This has progressed. PG Care Time/CCT Total # of Minutes Spent Total Time Spent with Patient: Total time spent is greater than 50% in coordination of care (as documented) at patient's floor/unit and/or counseling patient: Coding Level of Care Code 27240 IN/OBS CONSULT LVL 5,80M Diagnoses ESRD (end stage renal disease) N18.6 Hypertension I10 Hypertension type: unspecified SOB (shortness of breath) R06.02 Anemia D64.9 (2) Hypertension Hypertension type: unspecified Qualified Code(s): I10 - Essential (primary) hypertension
--- NOTE | 2023-03-10 14:30 | Pharmacy Report ---
Pharmacy Glycemic Short Note 2 - Date of Service March 10, 2023 - Glycemic Short BSG Results (Last 24 hours): 03/10/23 03:10 Glucose 118 H OUTPATIENT ANTIDIABETIC REGIMEN: * Levemir 30 units SC HS * Novolog 20 units SC AC * HbA1c pending for tomorrow ASSESSMENT: * 42 yo M admitted on 03/10/23 secondary to volume overload and shortness of breath. Pharmacy has been consulted to assist with inpatient glycemic management. Patient is a Type 1 diabetic as an outpatient. Please refer to outpatient regimen and most recent HbA1c above. Patient is well known to our service. * Insulin regimen will be based on previous admission data. Plan is for emergent dialysis this evening. * Basal will start at bedtime and Novolog with dinner. PLAN FOR INPATIENT GLYCEMIC CONTROL: * Basal insulin * Lantus 20 units SC HS * Reassess basal needs in AM * Bolus insulin * NovoLog per scale ACHS or Q6hrs while NPO * Goal Range: Low 110 mg/dL - High 140 mg/dL * Correction Factor: 12 mg/dL/unit * Nutritional / Prandial insulin per carb ratio of 1 unit per 4 grams CHO consumed
[2023-03-10] MEDS ORDERED: IRON SUCROSE 100 MG in SYRINGE 0 ML IV ONE (16:00)
[2023-03-10] MEDS ORDERED: EPOETIN ALFA 10,000 UNITS/ML VIAL IV ONE (16:00)
[2023-03-10] MEDS: GABAPENTIN 300 MG CAP PO SCH ×2 (17:15→21:06)
[2023-03-10] MEDS: Patient's HEIGHT &/or WEIGHT Needed SCH ×5 (17:15→23:45)
[2023-03-10] MEDS: CALCIUM ACETATE 667 MG CAP/TAB PO SCH ×2 (17:15→21:03)
[2023-03-10] MEDS: INSULIN ASPART PER UNIT CHARGE SC SCH ×2 (17:16→21:13)
[2023-03-10] MEDS ORDERED: GABAPENTIN 300 MG CAP PO SCH (21:00)
[2023-03-10] MEDS ORDERED: METOPROLOL SUCC 50MG EXT REL TAB PO SCH (21:00)
[2023-03-10] MEDS ORDERED: APIXABAN 5 MG TABLET PO SCH (21:00)
[2023-03-10] MEDS: APIXABAN 5 MG TABLET PO SCH ×2 (21:01→21:06)
[2023-03-10] MEDS: METOPROLOL SUCC 50MG EXT REL TAB PO SCH ×2 (21:01→21:03)
[2023-03-10] MEDS: BUMETANIDE 1 MG TAB PO SCH (21:05)
[2023-03-10] MEDS: DULoxetine HCL 60 MG CAP PO SCH (21:06)
[2023-03-10] MEDS: LEVOTHYROXINE SODIUM 50 MCG TABLET PO SCH (21:06)
[2023-03-10] MEDS: LANTUS PER UNIT CHARGE SC SCH (21:12)
[2023-03-11] MEDS ORDERED: hydrALAZINE HCL 20 MG/ML VIAL IV ONE (02:55)
[2023-03-11 08:10] LABS: Hematocrit (blood only) 27.7 % (42.0-52.0); Hemoglobin 8.6 g/dl (14.0-18.0); Mean Corpuscular Hemoglobin 29.5 pg (25.0-34.0); Mean Corpuscular Volume 94.9 fL (80.0-100.0); Mean Platelet Volume 10.8 fL (9.4-12.4); Platelet Count 172 K/uL (130-400); RDW Coefficient of Variation 16.6 % (11.5-14.5); RDW Standard Deviation 56.3 fL (36.4-46.3); Red Blood Count 2.92 M/uL (4.70-6.10)
--- NOTE | 2023-03-11 08:15 | XRay Report ---
TWO VIEW CHEST CLINICAL HISTORY: Dyspnea. FINDINGS: AP and lateral chest radiographs are compared to study performed earlier the same day 03/10. Correlation is made with chest CT dated 02/10/2023. The heart is enlarged. There is pulmonary vascular congestion. Bilateral airspace opacities likely represent interstitial edema. Small pleural effusions are noted on the lateral projection with dependent consolidation. There is no pneumothorax. The skeletal structures are osteopenic. The bony thorax appears intact. Arthritic change is seen in the shoulders. IMPRESSION: 1. Cardiomegaly with evidence of congestive failure. 2. Bilateral airspace opacities likely represent interstitial edema. Correlate clinically for evidenc e of a superimposed infectious/inflammatory pneumonitis. Radiographic follow-up to resolution is deirdre mmended. 3. Small pleural effusions with dependent consolidation. ACT 112: Negative or not required by law. Electronically signed by: Aaron Mcguire M.D. 03/11/2023 8:14 AM
[2023-03-11] MEDS: INSULIN ASPART PER UNIT CHARGE SC SCH ×4 (08:18→20:48)
[2023-03-11] MEDS: LEVOTHYROXINE SODIUM 50 MCG TABLET PO SCH (08:18)
[2023-03-11] MEDS: APIXABAN 5 MG TABLET PO SCH ×2 (08:19→20:49)
[2023-03-11] MEDS: CALCIUM ACETATE 667 MG CAP/TAB PO SCH ×3 (08:19→17:37)
[2023-03-11] MEDS: ATORVASTATIN 40 MG TAB PO SCH (08:19)
[2023-03-11] MEDS: CINACALCET HCL 30 MG TAB PO SCH (08:20)
[2023-03-11] MEDS: GABAPENTIN 300 MG CAP PO SCH ×2 (08:20→20:49)
[2023-03-11] MEDS: DULoxetine HCL 60 MG CAP PO SCH (08:20)
[2023-03-11] MEDS: BUMETANIDE 1 MG TAB PO SCH ×2 (08:20→17:37)
[2023-03-11] MEDS: METOPROLOL SUCC 50MG EXT REL TAB PO SCH ×2 (08:21→20:50)
[2023-03-11] MEDS: NEPHROCAPS PO SCH (08:21)
[2023-03-11] MEDS: PANTOprazole 40 MG TAB PO SCH (08:21)
[2023-03-11 08:50] LABS: BUN Creatinine Ratio 5.2 (10-20); Calcium 9.8 mg/dl (8.6-10.3); Creatinine Clr Calc Pharmacy 17.1 ml/min; Est GFR (Non-African American) 8.7 ml/min; Potassium 4.6 mmol/L (3.5-5.1)
[2023-03-11] MEDS ORDERED: DULoxetine HCL 60 MG CAP PO SCH (09:00)
[2023-03-11] MEDS ORDERED: LEVOTHYROXINE SODIUM 50 MCG TABLET PO SCH (09:00)
--- NOTE | 2023-03-11 10:13 | Nephrology Progress Note ---
Date of Service March 11, 2023 Assessment & Plan (1) ESRD (end stage renal disease): Plan: HD MWF at [facility]. Ventura presented to the hospital with dyspnea and volume overload. Emergent HD was coordinated through the ER yesterday. UF 3 L yesterday. Orders for treatment today for additional UF entered into the EHR. Medications appropriately dosed for kidney function. Gabapentin dose excessive but Ventura feels that he has been tolerating the medication well and lower doses did not control his symptoms adequately in the past. Dietary goals including low sodium and daily fluid restriction were reviewed. Risks associated with excessive fluid stressed. Mr. Snell expressed understanding. AVF with good thrill and bruit. AVF has been functioning well for dialysis. (2) Hypertension: Plan: BP elevated. Nifedipine was not affordable. Losartan added during hospitalization in January. Volume status hypervolemic. Continue metoprolol succinate as Rx. EDW 124.5 kg. (3) SOB (shortness of breath): Plan: CXR reviewed. Combination of accelerated hypertension, volume overload, and possible viral syndrome. Emergent HD coordinated yesterday for UF. Clinical improvement noted. (4) Anemia: Plan: Chronic. Relatively stable. Epogen and venofer provided with HD yesterday. Admission and Anticipated Discharge Date Admission Date: March 10, 2023 Subjective No acute events overnight. No complaints this AM. Juan Jose was seen and evaluated during hemodialysis. Review of Systems Review of Systems: All systems reviewed & are unremarkable except as noted in HPI & below Physical Exam Constitutional: well developed and + morbidly obese; no acute distress Eyes: + anicteric sclerae; no conjunctival abn ormality ENMT: Mouth: no oral mucosal abnormality and oral mucous membranes not dry Neck: normal visual inspection and trachea midline Respiratory: normal respiratory effort Auscultation: lungs clear to auscultation bilaterally and + rales Cardiovascular: Rate/Rhythm: regular rate Heart Sounds: normal S1, normal S2 and + murmur Extremities: + edema and + AV fistula (+thrill and bruit, high pitched proximal) Musculoskeletal: Extremities: no cyanosis and no clubbing Skin: normal turgor; no lesions Neurologic: Motor/Sensory: no tremor and no asterixis Psychiatric: Orientation: alert and oriented x 3 Results & Data Vital Signs (Past 12 Hours) Vital Signs Temp Pulse Pulse Resp BP Pulse Ox O2 Del Method 03/11/23 08:43 Oxymask 03/11/23 08:41 77 03/11/23 07:06 36.4 C L 71 18 181/97 H 99 Oxymask 03/11/23 03:00 36.4 C L 70 20 191/107 H 99 Oxymask 03/10/23 23:15 80 03/10/23 23:00 36.6 C 78 22 143/75 H 97 Oxymask O2 Flow Rate 03/11/23 08:43 3 03/11/23 08:41 03/11/23 07:06 4 03/11/23 03:00 03/10/23 23:15 03/10/23 23:00 Laboratory Results Laboratory Results - last 24 hr 03/10/23 03/10/23 03/11/23 18:30 20:17 07:14 WBC 5.30 RBC 2.92 L Hgb 8.6 L Hct 27.7 L MCV 94.9 MCH 29.5 MCHC 31.0 L RDW Std Deviation 56.3 H RDW Coeff of Yuki 16.6 H Plt Count 172 MPV 10.8 Sodium 136 Potassium 4.6 Chloride 95 L Carbon Dioxide 32 Anion Gap 9 BUN 37 H Creatinine 7.13 H* Est Cr Clr Drug Dosing 17.1 Est GFR ( Amer) 10.0 Est GFR (Non-Af Amer) 8.7 BUN/Creatinine Ratio 5.2 L Glucose 121 H POC Glucose 144 H 175 H Estimat Average Glucose Pending Hemoglobin A1c Pending Calcium 9.8 03/11/23 07:25 WBC RBC Hgb Hct MCV MCH MCHC RDW Std Deviation RDW Coeff of Yuki Plt Count MPV Sodium Potassium Chloride Carbon Dioxide Anion Gap BUN Creatinine Est Cr Clr Drug Dosing Est GFR ( Amer) Est GFR (Non-Af Amer) BUN/Creatinine Ratio Glucose POC Glucose 134 H Estimat Average Glucose Hemoglobin A1c Calcium PG Care Time/CCT Total # of Minutes Spent Total Time Spent with Patient: Total time spent is greater than 50% in coordination of care (as documented) at patient's floor/unit and/or counseling patient: Coding Level of Care Code 81493 SUB INP/OBS CARE 3/50MIN Diagnoses ESRD (end stage renal disease) N18.6 Hypertension I10 Hypertension type: unspecified SOB (shortness of breath) R06.02 Anemia D64.9 (2) Hypertension Hypertension type: unspecified Qualified Code(s): I10 - Essential (primary) hypertension
[2023-03-11 10:18] LABS: Estimated Average Glucose 128 mg/dl; Hemoglobin A1C 6.1 % (4.5-5.6)
[2023-03-11] MEDS: LANTUS PER UNIT CHARGE SC SCH (20:48)
--- NOTE | 2023-03-11 22:28 | Hospitalist Progress Note ---
Date of Service March 11, 2023 Assessment & Plan (1) Acute respiratory failure with hypoxemia: Plan: Acute hypoxic respiratory failure in a 42 yo male with SOB and ESRD. Chest xray is showing more opacity. BNP is also higher. Will admit patient Patient will continue on DIuretics Patient had dialysis on 03/11 patient reports feeling better, but continues to have some sensation of SOB. It appears to can be due to anxiety. (2) ESRD on dialysis: Plan: Patient is nomrlaly on MWF, Had dialysis on 03/11 (3) Atrial fibrillation: Plan: resume metoporlol and eliquis. (4) CHF (congestive heart failure): (5) Uncontrolled type 1 diabetes mellitus with neurologic complication, with long-term current use of insulin: Plan: Blood sugar checks ACHS Short acting with carb ratio Long acting ordered consulted glycemic control (6) Dyslipidemia: Plan: COntinue STtain Admission and Anticipated Discharge Date Admission Date: March 10, 2023 Subjective 42 yo male reports no new symptoms. He reports he contiues to have anxiety. Review of Systems Constitutional: no fever and no body aches Eyes: no blind spots Ear, Nose, Mouth, Throat: no ear pain Respiratory: + dyspnea; no cough Gastrointestinal: no abdominal pain Genitourinary: no dysuria Integumentary: no acne Neurologic: no gait abnormality Psychiatric: + anxiety Endocrine: + fatigue Hematologic / Lymphatic: no easy bleeding Allergy / Immunological: no GI upset with certain foods Physical Exam Physical Exam: General: In no acute distress, stated age, chronically ill appearing but non- toxic HEENT: Normocephalic, atraumatic, Chest/Pulm: Patient using accessory muscles to breath, bibasilar rales. Cardiac: RRR, 2/4 systolic murmur noted Abdomen: normoactive bowel sounds, soft, non-tender to palpation throughout Extremities: AV fistula located located in the left forearm with intact thrill, chronic venous stasis in the BL LE's Skin: Warm, dry, no rashes , lesions, or scars noted; thickening of the BL LE's with changes of chronic venous insufficiency Neuro: Alert and oriented to person, place, month, year, and president, no focal defects, no tremors noted Psych: No acute distress, calm and cooperative during the exam Results & Data Results & Data Vital Signs (Past 12 Hours) Vital Signs Temp Pulse Pulse Pulse Resp BP BP 03/11/23 19:29 03/11/23 19:21 36.8 C 75 16 174/96 H 03/11/23 16:07 36.5 C 72 18 180/90 H 03/11/23 15:17 73 03/11/23 13:45 36.3 C L 72 141/85 H 03/11/23 13:30 71 136/84 03/11/23 13:00 71 148/87 H 03/11/23 12:30 59 L 137/93 03/11/23 12:00 62 148/86 H 03/11/23 11:30 59 L 136/87 03/11/23 11:00 58 L 145/90 H 03/11/23 10:30 58 L 157/95 H Pulse Ox O2 Del Method O2 Flow Rate 03/11/23 19:29 Oxymask 4 03/11/23 19:21 97 Oxymask 4 03/11/23 16:07 100 Oxymask 3 03/11/23 15:17 03/11/23 13:45 03/11/23 13:30 03/11/23 13:00 03/11/23 12:30 03/11/23 12:00 03/11/23 11:30 03/11/23 11:00 03/11/23 10:30 PG Care Time/CCT Total # of Minutes Spent Total Time Spent with Patient: Total time spent is greater than 50% in coordination of care (as documented) at patient's floor/unit and/or counseling patient: Coding Level of Care Code 48194 SUB INP/OBS CARE 2/35MIN Diagnoses Acute respiratory failure with hypoxemia J96.01 ESRD on dialysis N18.6; Z99.2 Atrial fibrillation I48.91 CHF (congestive heart failure) I50.9 Heart failure chronicity: acute Heart failure type: unspecified Uncontrolled type 1 diabetes mellitus with neurologic complication, with long- term current use of insulin E10.49; E10.65 Dyslipidemia E78.5 (4) CHF (congestive heart failure) Heart failure chronicity: acute Heart failure type: unspecified Qualified Code(s): I50.9 - Heart failure, unspecified
[2023-03-12] MEDS: LEVOTHYROXINE SODIUM 50 MCG TABLET PO SCH (06:19)
[2023-03-12 06:59] LABS: Hematocrit (blood only) 28.6 % (42.0-52.0); Hemoglobin 8.8 g/dl (14.0-18.0); Mean Corpuscular Hemoglobin 29.6 pg (25.0-34.0); Mean Corpuscular Hgb Conc 30.8 g/dL (32.0-36.0); Mean Corpuscular Volume 96.3 fL (80.0-100.0); Mean Platelet Volume 10.4 fL (9.4-12.4); Platelet Count 166 K/uL (130-400); RDW Coefficient of Variation 16.4 % (11.5-14.5); RDW Standard Deviation 57.1 fL (36.4-46.3); Red Blood Count 2.97 M/uL (4.70-6.10); White Blood Count 5.37 K/ul (4.8-10.8)
[2023-03-12 07:55] LABS: Calcium 9.4 mg/dl (8.6-10.3); Potassium 4.4 mmol/L (3.5-5.1)
[2023-03-12] MEDS: INSULIN ASPART PER UNIT CHARGE SC SCH ×3 (07:58→17:05)
[2023-03-12] MEDS: DULoxetine HCL 60 MG CAP PO SCH (07:59)
[2023-03-12] MEDS: CINACALCET HCL 30 MG TAB PO SCH (07:59)
[2023-03-12] MEDS: APIXABAN 5 MG TABLET PO SCH (07:59)
[2023-03-12] MEDS: METOPROLOL SUCC 50MG EXT REL TAB PO SCH (07:59)
[2023-03-12] MEDS: GABAPENTIN 300 MG CAP PO SCH (07:59)
[2023-03-12] MEDS: CALCIUM ACETATE 667 MG CAP/TAB PO SCH ×3 (07:59→17:07)
[2023-03-12] MEDS: ATORVASTATIN 40 MG TAB PO SCH (07:59)
[2023-03-12] MEDS: NEPHROCAPS PO SCH (08:00)
[2023-03-12] MEDS: PANTOprazole 40 MG TAB PO SCH (08:00)
[2023-03-12] MEDS: BUMETANIDE 1 MG TAB PO SCH ×2 (08:00→17:06)
[2023-03-12 08:03] LABS: BUN Creatinine Ratio 5.6 (10-20); Creatinine Clr Calc Pharmacy 21.6 ml/min; Est GFR (African American) 13.6 ml/min; Est GFR (Non-African American) 11.7 ml/min
--- NOTE | 2023-03-12 10:14 | Nephrology Progress Note ---
Date of Service March 12, 2023 Assessment & Plan (1) ESRD (end stage renal disease): Plan: HD MWF at [facility]. Ventura presented to the hospital with dyspnea and volume overload. Emergent HD was coordinated through the ER yesterday. UF 3 L on Saturday and an additional 4.5 L yesterday. HD completed with [facility]. Post HD yesterday, weight was 122 kg. EDW will be adjusted accordingly. Medications appropriately dosed for kidney function. Gabapentin dose is high but Ventura has been tolerating the medication well and lower doses did not control his symptoms. Dietary goals including low sodium and daily fluid restriction were reviewed. Risks associated with excessive fluid stressed. AVF with good thrill and bruit. AVF has been functioning well for dialysis. Remains on Bumex to encourage urine output. Calcium acetate QAC for hyperphosphatemia. Continue Sensipar 60 mg daily for sPTH. (2) Hypertension: Plan: BP elevated. Improvement noted with HD yesterday. Nifedipine was not affordable. Losartan added during hospitalization last month. Medication has not been provided this admission but restarted this AM. Continue metoprolol succinate as Rx. (3) SOB (shortness of breath): Plan: Combination of accelerated hypertension, volume overload, possible viral syndrome, and anxiety. Symptomatically improved. (4) Anemia: Plan: Chronic. Relatively stable. Epogen and venofer provided with HD 03/10. Admission and Anticipated Discharge Date Admission Date: March 10, 2023 Subjective No acute events overnight. Ventura removed his Oxymask this morning and is sitting comfortably in a chair. He told me that he feels like he is ready to return home. He does admit to a component of anxiety but also mentioned that he feels that he will be able to manage this well. He noted that he is losing weight and feels his dry weight at dialysis does need to be adjusted. He felt significantly better following HD yesterday. He tolerated HD well. An additional 4.5 L were removed. Review of Systems Review of Systems: All systems reviewed & are unremarkable except as noted in HPI & below Physical Exam Constitutional: well developed and + morbidly obese; no acute distress Eyes: + anicteric sclerae; no conjunctival abn ormality ENMT: Mouth: no oral mucosal abnormality and oral mucous membranes not dry Neck: normal visual inspection and trachea midline Respiratory: normal respiratory effort Auscultation: lungs clear to auscultation bilaterally Cardiovascular: Rate/Rhythm: regular rate Heart Sounds: normal S1, normal S2 and + murmur Extremities: + edema and + AV fistula (+thrill and bruit, high pitched proximal) Musculoskeletal: Extremities: no cyanosis and no clubbing Skin: normal turgor; no lesions Neurologic: Motor/Sensory: no tremor and no asterixis Psychiatric: Orientation: alert and oriented x 3 Results & Data Vital Signs (Past 12 Hours) Vital Signs Temp Pulse Pulse Pulse Resp BP Pulse Ox 03/12/23 08:25 74 03/12/23 08:22 03/12/23 07:44 36.8 C 71 17 191/99 H 94 03/12/23 03:02 36.8 C 68 18 183/99 H 95 03/11/23 22:53 36.7 C 74 18 167/91 H 93 O2 Del Method O2 Flow Rate 03/12/23 08:25 03/12/23 08:22 Oxymask 4 03/12/23 07:44 Room Air 03/12/23 03:02 Oxymask 4 03/11/23 22:53 Oxymask 4 Laboratory Results Laboratory Results - last 24 hr 03/11/23 03/11/23 03/11/23 07:14 14:31 16:35 WBC RBC Hgb Hct MCV MCH MCHC RDW Std Deviation RDW Coeff of Yuki Plt Count MPV Sodium Potassium Chloride Carbon Dioxide Anion Gap BUN Creatinine Est Cr Clr Drug Dosing Est GFR ( Amer) Est GFR (Non-Af Amer) BUN/Creatinine Ratio Glucose POC Glucose 74 118 H Estimat Average Glucose 128 Hemoglobin A1c 6.1 H Calcium 03/11/23 03/12/23 03/12/23 19:30 06:20 07:34 WBC 5.37 RBC 2.97 L Hgb 8.8 L Hct 28.6 L MCV 96.3 MCH 29.6 MCHC 30.8 L RDW Std Deviation 57.1 H RDW Coeff of Yuki 16.4 H Plt Count 166 MPV 10.4 Sodium 136 Potassium 4.4 Chloride 99 Carbon Dioxide 30 Anion Gap 7 BUN 31 H Creatinine 5.54 H* D Est Cr Clr Drug Dosing 21.6 Est GFR ( Amer) 13.6 Est GFR (Non-Af Amer) 11.7 BUN/Creatinine Ratio 5.6 L Glucose 118 H POC Glucose 174 H 127 H Estimat Average Glucose Hemoglobin A1c Calcium 9.4 PG Care Time/CCT Total # of Minutes Spent Total Time Spent with Patient: Total time spent is greater than 50% in coordination of care (as documented) at patient's floor/unit and/or counseling patient: Coding Level of Care Code 20396 SUB INP/OBS CARE 3/50MIN Diagnoses ESRD (end stage renal disease) N18.6 Hypertension I10 Hypertension type: unspecified SOB (shortness of breath) R06.02 Anemia D64.9 (2) Hypertension Hypertension type: unspecified Qualified Code(s): I10 - Essential (primary) hypertension
--- NOTE | 2023-03-12 14:39 | Pharmacy Report ---
Pharmacy Glycemic Short Note 2 - Date of Service March 12, 2023 - Glycemic Short BSG Results (Last 24 hours): 03/11/23 03/11/23 03/12/23 16:35 19:30 06:20 Glucose 118 H POC Glucose 118 H 174 H 03/12/23 03/12/23 07:34 11:10 Glucose POC Glucose 127 H 155 H OUTPATIENT ANTIDIABETIC REGIMEN: * Levemir 30 units SC HS * Novolog 20 units SC AC * HbA1C = 6.1% (03/11/23) ASSESSMENT: 03/12/23 * BSGs yesterday were 134-74(after dialysis)-118-174 mg/dL. * Patient received 45 units of insulin (20 units of basal and 25 units of bolus). * BSGs today are 127-155 mg/dL. * Continue current regimen as BSGs well controlled. BACKGROUND * 42 yo M admitted on 03/10/23 secondary to volume overload and shortness of breath. Pharmacy has been consulted to assist with inpatient glycemic management. Patient is a Type 1 diabetic as an outpatient. Please refer to outpatient regimen and most recent HbA1c above. Patient is well known to our service. * Insulin regimen will be based on previous admission data. Plan is for emergent dialysis this evening. * Basal will start at bedtime and Novolog with dinner. PLAN FOR INPATIENT GLYCEMIC CONTROL: * Basal insulin * Lantus 20 units SC HS * Bolus insulin * NovoLog per scale ACHS or Q6hrs while NPO * Goal Range: Low 110 mg/dL - High 140 mg/dL * Correction Factor: 15 mg/dL/unit * Nutritional / Prandial insulin per carb ratio of 1 unit per 6 grams CHO consumed
--- NOTE | 2023-03-12 15:35 | Discharge Summary ---
Date of Service March 12, 2023 Admission HPI Per Admitting Provider 42 yo male with a PMH significant for ESRD on HD MWF, Type 1 DM, afib on Eliquis, HFpEF, anemia, and hypothyroidism who presented to the [facility] ED with complaints of anxiety and Shortness of breath. Per the ED the patient was reportedly hypoxic on RA. Patient labs shown increased BNP and chest xray noted worseneing pulmonary congestion. Patient has been compliant with his dialysis. Patient has noted worsening SOB overnight which prompted him to come to the ED> PAtient reports he does not weight himself. He denies recent sick contacts, chest pain, hemoptysis, abd pain, nausea, vomiting, diarrhea, dysuria, hematuria, melena, diarrhea, increased LE swelling from baseline, and recent trauma. When asked, he states that he does make urine despite being on dialysis. Principal Diagnosis Acute hypoxic respiratory failure Discharge Exam General: In no acute distress, stated age, chronically ill appearing but non- toxic HEENT: Normocephalic, atraumatic, Chest/Pulm: clear through auscultation Cardiac: RRR, 2/4 systolic murmur noted Abdomen: normoactive bowel sounds, soft, non-tender to palpation throughout Extremities: AV fistula located located in the left forearm with intact thrill, chronic venous stasis in the BL LE's Skin: Warm, dry, no rashes , lesions, or scars noted; thickening of the BL LE's with changes of chronic venous insufficiency Neuro: Alert and oriented to person, place, month, year, and president, no focal defects, no tremors noted Psych: No acute distress, calm and cooperative during the exam Discharge Data Allergies Allergy/AdvReac Type Severity Reaction Status Date / Time lisinopril AdvReac Intermediate COUGH Verified 03/05/23 16:02 Consultations 03/10/23 09:02 Consult Nephrology Routine 03/10/23 09:09 ED Decision to Admit Stat 03/12/23 11:31 Consult Behavioral Health Liaison Routine Hospital Course (1) Acute respiratory failure with hypoxemia: Acute hypoxic respiratory failure in a 42 yo male with SOB and ESRD. Chest xray is showing more opacity. BNP is also higher. Will admit patient Patient will continue on DIuretics Patient had dialysis on 03/11 patient reports feeling better back to his baseline His symptoms can be explained somewhat by anxiety as well as Fluid overload. Patint however, refused adding more anxiolytics. (2) ESRD on dialysis: Patient is nomrlaly on MWF, Had dialysis on 03/11 (3) Atrial fibrillation: resume metoporlol and eliquis. (4) CHF (congestive heart failure): (5) Uncontrolled type 1 diabetes mellitus with neurologic complication, with long-term current use of insulin: Blood sugar checks ACHS Short acting with carb ratio Long acting ordered (6) Dyslipidemia: COntinue STtain Total Time Total Time Spent Total Time Spent (In Minutes): 43 Discharge Plan Discharge Items Patient Disposition: Home - Home Health Services Reason For Visit: HYPOXIC RESPIRATORY FAILURE, ESRD ON HD Discharge Diagnosis: hypoxic respiratory failure, ESRD on HD Activity: Resume your previous activity Non-emergency contact: Primary Care Provider Call non-emergency contact if: you have any medication questions Follow-up/Referrals: Esther Tello CRNP [Nurse Practitioner] - 03/20/23 10:00 am (dr. peterson does not have any appts made appt with KATJA Melton) Diet: Dialysis Renal Addtl Attending Provider Instructions: Recommend followup with PCP in 1-2 weeks. Call your Primary Care doctor if any of the following symptoms or problems start or get worse: * Shortness of breath or difficulty breathing * Wake up at night short of breath * Chest pain * Cough * Swelling of your hands, feet, or legs * More fatigued or tired with your normal activity * Palpitations - sudden fast heart beats WEIGHT * Weigh yourself every morning after using the bathroom. * Use the same scale. * Wear the same amount of clothing. * Write your weight down on a chart. * Call your Primary Care doctor if you gain more than 2-3 pounds in 1-2 days. MEDICATIONS * Use this discharge instruction sheet for medication instructions. * Take your medications at the time your doctor ordered. * Do not skip a dose of your medicines. * If you miss a dose of medicine, take it as soon as possible, but DO NOT DOUBLE A DOSE. * Read your medicine information when you get home. * Know all of the side effects of your medicine. If in doubt, ask your pharmacist * Call your Primary Care doctor's office if you have any side effects. * Be sure all of your doctors know what medicine and herbs you take (including cold, flu, and herbal medicine). Take the following with you to your follow-up doctor appointments: * Weight Chart * Medication List * List of questions Do not drink excessive alcohol, beer or wine. Pending Studies at Discharge: No Stand-Alone Forms: My [facility], Smoking Cessation Medications and DC Order Prescriptions: Continued (DME) pen needle, diabetic [Comfort EZ Pen [place]] 29 gauge x 1/2" needle See Rx Instructions .ROUTE .MEDSUPPLY Qty: 400 3RF Rx Instructions: use 4 x daily duloxetine [Cymbalta] 60 mg capsule,delayed release(DR/EC) 60 mg PO QAM Qty: 90 3RF pantoprazole [Protonix] 40 mg tablet,delayed release (DR/EC) 40 mg PO QAM Qty: 90 3RF (DME) Dexcom G6 Butter Liquefier Misc See Rx Instructions .Route Qty: 1 0RF Rx Instructions: As directed (DME) Dexcom G6 Sensor Device See Rx Instructions .Route Qty: 3 5RF Rx Instructions: As directed RenaPlex-D 800 mcg-12.5 mg -2,000 unit tablet 1 tab PO DAILY Qty: 30 4RF (DME) blood-glucose meter [OneTouch Verio Flex meter] Misc See Rx Instructions .ROUTE .MEDSUPPLY Qty: 1 0RF Rx Instructions: As directed (DME) OneTouch Verio test strips Strip See Rx Instructions .ROUTE .MEDSUPPLY Qty: 400 3RF Rx Instructions: Test 4 times daily (DME) lancets [OneTouch Delica Plus Lancet] 33 gauge misc See Rx Instructions .Route Qty: 400 3RF Rx Instructions: test blood sugars 4 times daily Eliquis 5 mg tablet 5 mg PO BID 30 Days Qty: 60 2RF cinacalcet 60 mg tablet 60 mg PO DAILY Qty: 30 2RF tramadol 50 mg tablet 50 mg PO Q6H PRN (Reason: pain) Qty: 15 0RF atorvastatin [Lipitor] 80 mg tablet 80 mg PO DAILY Qty: 90 3RF (DME) Ketostix Strip See Rx Instructions .ROUTE .MEDSUPPLY Rx Instructions: As directed (DME) lancets [OneTouch Delica Lancets] 33 gauge misc See Rx Instructions .ROUTE .MEDSUPPLY Qty: 400 3RF Rx Instructions: test blood suigars 4 x daily (DME) Dexcom G6 Transmitter Device See Rx Instructions .Route Qty: 1 3RF Rx Instructions: Change transmitter roma 3 months calcium acetate(phosphat bind) 667 mg capsule 2,001 mg PO TIDM Rx Instructions: Patient takes 3 capsules with each main meal of the day. levothyroxine [Synthroid] 50 mcg tablet 50 mcg PO QAM Qty: 30 2RF metoprolol succinate 50 mg tablet extended release 24 hr 50 mg PO BID insulin detemir U-100 100 unit/mL (3 mL) insulin pen 30 unit SQ PM insulin aspart U-100 100 unit/mL (3 mL) insulin pen 20 unit subcut TID Rx Instructions: Sliding Scale bumetanide 2 mg tablet 4 mg PO BID gabapentin 300 mg capsule 600 mg PO BID Discharge Orders: Discharge Order (Routine); Ordered 03/12/23 Ordered By: Gil Kwan/Other Patient Handouts: Diabetic Neuropathy Admission Data Admit Date/Time: 03/10/23 09:03 Attending Provider: Gil Cat Admit Provider: Gil Cat Primary Care Provider: Maki Peterson Other Providers: Zachary Ibanez; Gil Cat; [facility] Other Interventions: Discharge Summary Assessment (RN) Last Done: 03/12/23 17:11 Coding Level of Care Code 70812 INP/OBS DISCH >30 MIN Diagnoses Acute respiratory failure with hypoxemia J96.01 ESRD on dialysis N18.6; Z99.2 Atrial fibrillation I48.91 CHF (congestive heart failure) I50.9 Heart failure chronicity: acute Heart failure type: unspecified Uncontrolled type 1 diabetes mellitus with neurologic complication, with long- term current use of insulin E10.49; E10.65 Dyslipidemia E78.5
--- NOTE | 2023-03-13 05:51 | Electrocardiogram Report ---
Test Reason : Blood Pressure : / mmHG Vent. Rate : 074 BPM Atrial Rate : 074 BPM P-R Int : 154 ms QRS Dur : 094 ms QT Int : 420 ms P-R-T Axes : 025 010 078 degrees QTc Int : 466 ms Normal sinus rhythm Nonspecific ST and T wave abnormality Abnormal ECG When compared with ECG of 08-MAR-2023 14:47, No significant change was found Confirmed by Nicholas Pittman ([id number]) on 03/13/2023 5:50:59 AM Referred By: REFERRED SELF Confirmed By:Nicholas Pittman
== END 2023-03-12 18:13 | disposition home health service (06) | DRG 640 ==
LOC: ED 02:48 → EDINP 09:03 → 2S 18:29
DX: I50.30 Unspecified diastolic (congestive) heart failure; E03.9 Hypothyroidism, unspecified; N18.6 End stage renal disease; E10.40 Type 1 diabetes mellitus with diabetic neuropathy, unspecified; Z79.01 Long term (current) use of anticoagulants; G47.30 Sleep apnea, unspecified; Z68.41 Body mass index [BMI] 40.0-44.9, adult; E66.01 Morbid (severe) obesity due to excess calories; E10.319 Type 1 diabetes mellitus with unspecified diabetic retinopathy without macular edema; E78.5 Hyperlipidemia, unspecified; Z83.3 Family history of diabetes mellitus; E10.21 Type 1 diabetes mellitus with diabetic nephropathy; B34.9 Viral infection, unspecified; G47.00 Insomnia, unspecified; Z99.2 Dependence on renal dialysis; E87.70 Fluid overload, unspecified; F41.9 Anxiety disorder, unspecified; I48.91 Unspecified atrial fibrillation; I13.2 Hypertensive heart and chronic kidney disease with heart failure and with stage 5 chronic kidney disease, or end stage renal disease; I87.2 Venous insufficiency (chronic) (peripheral); Z86.16 Personal history of COVID-19; J96.01 Acute respiratory failure with hypoxia; Z79.890 Hormone replacement therapy; D64.9 Anemia, unspecified

== ENCOUNTER 2023-06-07 04:35 | Observation (INO) ==
--- NOTE | 2023-06-07 04:47 | Emergency Department Note ---
Impression & Plan Acute hyperkalemia ADMIT ED Provider Note HPI: History obtained from patient. The patient is a 42-year-old male with history of CHF, diabetes, end-stage renal disease on dialysis, presents the emergency department with chief complaint of diarrhea. Patient states he has had diarrhea intermittently for several months. Patient states that he has been having issues at dialysis because he needs to go to the bathroom and he has been soiling himself at times during dialysis and cannot complete his sessions. Patient states he goes to dialysis on Saturday, Saturday, and Saturday. Patient states on Saturday he got an incomplete session secondary to diarrhea, patient states he did receive a complete session of dialysis on Saturday. Patient states this morning he is due for dialysis at 4:30 AM but came to the ER instead because he was worried about getting diarrhea. Patient states he took an Imodium prior to arrival and does not feel that he can give a stool sample now. Patient states he was previously screened in the recent past for C. difficile and he states this testing was negative. Patient does state he does have some generalized abdominal pain that has been ongoing for several months as well. On arrival here to the ED, the patient is alert, he is hemodynamically stable, he otherwise appears to be in no acute distress. ROS: - Per HPI Differential Diagnosis: Acute colitis, diverticulitis flare, viral gastroenteritis, irritable bowel disease, small bowel obstruction, amongst other potential pathologies. *Outpatient medications and allergy history reviewed. PE: General: Alert HEENT: Normocephalic, trachea midline Eyes: Extraocular eye movement is intact, no scleral erythema Pulmonary: Clear to auscultation bilaterally, no wheezing Cardio: Regular rate and rhythm GI: Abdomen is soft to palpation, mild tenderness to palpation without guarding or rigidity : No suprapubic tenderness MSK: No evidence of trauma or malformation of the extremities, no edema, fistula to left upper extremity Skin: No evidence of rash Neuro: Alert, no focal deficits Psychiatric: Cooperative INDEPENDENT INTERPRETATIONS: senior attorney: (As interpreted by myself): - An order was placed for continuous cardiac monitoring - Patient was noted to be in sinus rhythm with a rate of 78 EKG: (As interpreted by myself): Rate: 76 Rhythm: Normal sinus rhythm Intervals: Within normal limits ST changes: No ST elevation Time: 0554 Interventions provided in ED: -IV insulin, IV dextrose, IV calcium gluconate, IV Lasix, albuterol Medical Decision Making: Patient appears well on arrival here to the ED, IV was established and lab work obtained, 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 Lab work shows no leukocytosis, hemoglobin is stable at 10.3, platelet count is normal. CMP shows critical high potassium at 6.6. BUN is elevated at 59, creatinine is 7.76. Patient missed his dialysis session this morning. He was administered hyperkalemia medications including IV insulin, IV dextrose, IV calcium gluconate, IV Lasix, and albuterol breathing treatment. CT imaging of the abdomen pelvis was obtained given the patient's diarrhea and generalized abdominal discomfort, this was obtained without contrast given renal function but does not show any evidence of any critical findings. Stool PCR testing was ordered but the patient was unable to give a sample while here in the ED. On my reassessment the patient appears well, he is stable on the monitor, upon review of his EKG there is no evidence of any arrhythmia, widened QRS, or peaked T waves. I discussed all the above findings with the patient, he is in agreement for admission. [facility] hospitalist service was consulted for admission. I discussed the patient's presentation with the on-call hospitalist, Dr. Landin. Patient remained stable on the monitor and he was placed for admission in stable condition. Consultants/Discussions held with other healthcare providers: -Hospitalist, Dr. Landin Disposition discussion held by myself with: -Patient * CRITICAL CARE TIME: (36) minutes -Management of hyperkalemia with potassium of 6.6 requiring IV medications for reversal, time spent at the bedside, interpretation of diagnostic studies including EKG, discussion with other healthcare providers and arrangement of admission Diagnosis: 1. Hyperkalemia, acute 2. Elevated BUN 3. History of end-stage renal disease, on dialysis 4. Diarrhea, acute, nonspecific Disposition: Admission Antonio Almanzar DO Emergency Medicine Past Med/Surg History Medical History Acute hyperglycemia Atrial fibrillation with rapid ventricular response Renal failure History of COVID-19 DX'D [facility] 04/28/21 COUGH-HOSPITALIZED X 1 DAY-RECOVERED AT HOME-RESOLVED Hyperosmolar hyperglycemic state (HHS) ESRD (end stage renal disease) Thrombosis of arteriovenous dialysis fistula (~02/15/20) Erectile dysfunction GERD (gastroesophageal reflux disease) Well controlled and stable ESRD (end stage renal disease) requiring hemodialysis. MWF at [facility]. Diabetic retinopathy Hypertension Hypothyroidism Diabetic peripheral neuropathy associated with type 1 diabetes mellitus Type 1 diabetes Depression Chronic venous insufficiency H/O febrile seizure as a child (every year until he was 11 years old) no problems since. High cholesterol Surgical History History of esophagogastroduodenoscopy (EGD) H/O detached retina repair S/P arteriovenous (AV) fistula creation left side, unable to use Family History Mother Diabetes Coronary heart disease Hypertension Father Coronary heart disease Hypertension Brother Coronary heart disease Kidney disease Uncle Colorectal cancer Grandmother Diabetes Aunt Diabetes Unknown Dyslipidemia Grandfather (Maternal) Diabetes Other Cancer No family history of adverse response to anesthesia Social History Smoking Status: Never smoker Second Hand Exposure: No; Do You Dip or Chew Tobacco: No; Hx Alcohol Use: Yes Alcohol type: beer Hx Substance Use: No Preferred Language: Slovak Communication Ability: Effective Visual Impairment: No Limitations Hearing Ability: Normal 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 Beliefs That Will Affect Care: None marital status: Single Current Living Situation: Alone Current Living Situation Comment: Brother 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" How many Children do You have: 0 Feels Safe at Home: Yes Diet: regular Dental Care, Regularly: No Physical Activity Frequency: Does not Exercise Seatbelt Use: always Sunscreen Use: No Assistive Devices: Cane and Walker Allergies Allergies Allergy/AdvReac Type Severity Reaction Status Date / Time lisinopril AdvReac Intermediate COUGH Verified 05/23/23 10:28 Home Meds Home Medications Medication Instructions Recorded Confirmed calcium acetate(phosphat bind) 667 2,001 mg PO TIDM 08/22/22 05/21/23 mg capsule insulin aspart U-100 100 unit/mL 20 unit subcut TID 12/31/22 05/21/23 (3 mL) subcutaneous pen bumetanide 2 mg tablet 4 mg PO BID 01/26/23 05/21/23 gabapentin 300 mg capsule 600 mg PO BID 01/26/23 05/21/23 acetone (urine) test (Ketostix 01/29/23 05/21/23 strips) insulin detemir U-100 100 unit/mL 20 unit subcut PM 03/20/23 05/21/23 (3 mL) subcutaneous pen Previous Rx's Medication Instructions Recorded OneTouch Delica Lancets 33 gauge #400 ea 10/16/19 (lancets) pen needle, diabetic 29 gauge x #400 ea 01/25/21 1/2" (Comfort EZ Pen [place]) duloxetine 60 mg capsule,delayed 60 mg PO QAM #90 caps 05/25/22 release (Cymbalta) pantoprazole 40 mg tablet,delayed 40 mg PO QAM #90 tabs 05/25/22 release (Protonix) vit B,C-folic ac 800 mcg-zinc 12.5 1 tab PO DAILY #30 tabs 06/29/22 mg-selen-D3 2,000 unit-vit E tablet (RenaPlex-D) lancets 33 gauge (OneTouch Delica #400 ea 01/28/23 Plus Lancet) cinacalcet 60 mg tablet 60 mg PO DAILY #30 tabs 02/15/23 atorvastatin 80 mg tablet (Lipitor) 80 mg PO DAILY #90 tabs 03/05/23 apixaban 5 mg tablet (Eliquis) 5 mg PO BID 30 days #180 tabs 03/20/23 blood-glucose meter,continuous #1 ea 03/20/23 (Dexcom G7 Copper Plate Printer) amlodipine 10 mg tablet 10 mg PO DAILY #90 tabs 04/03/23 levothyroxine 50 mcg tablet 50 mcg PO DAILY #90 tabs 04/09/23 (Synthroid) ammonium lactate 12 % topical cream 1 applic topical DAILY 30 days 05/02/23 #385 grams blood sugar diagnostic (Oneuch #400 ea 05/21/23 Verio test strips) blood-glucose meter (Oneuch #1 ea 05/21/23 Verio Flex Meter) blood-glucose sensor (Dexcom G7 #3 ea 05/21/23 Sensor device) metoprolol succinate 50 mg 50 mg PO BID #180 tabs 05/21/23 tablet,extended release 24 hr tramadol 50 mg tablet 50 mg PO Q6H PRN pain #15 tabs 05/21/23 ciprofloxacin HCl 500 mg tablet 500 mg PO DAILY #7 tabs 05/24/23 Results & Data (ED) Vital Signs Vital Signs - 24 hr 06/07/23 04:44 06/07/23 05:56 06/07/23 05:57 Pulse Rate Pulse Rate [Finger] 76 78 Respiratory Rate 20 16 Blood Pressure [Right Arm] 159/96 H Blood Pressure Mean [Right Arm] 117 Pulse Oximetry 99 Oxygen Delivery Method Room Air Sepsis Recent Fever Within 48 Hours No Sepsis New/Unexplained Change in Mental Status No Sepsis Action Taken by Nursing No Action Required 06/07/23 06:00 06/07/23 06:26 06/07/23 06:26 Pulse Rate 78 75 Pulse Rate [Finger] 76 Respiratory Rate 16 16 Blood Pressure [Right Arm] 173/100 H Blood Pressure Mean [Right Arm] 124 Pulse Oximetry 100 100 Oxygen Delivery Method Nebulizer Nebulizer Sepsis Recent Fever Within 48 Hours Sepsis New/Unexplained Change in Mental Status Sepsis Action Taken by Nursing Laboratory Data 06/07/23 05:07 06/07/23 05:07 Lab Results 06/07/23 Range/Units 05:07 WBC 5.01 (4.8-10.8) K/ul RBC 3.66 L (4.70-6.10) M/uL Hgb 10.3 L (14.0-18.0) g/dl Hct 32.1 L (42.0-52.0) % MCV 87.7 (80.0-100.0) fL MCH 28.1 (25.0-34.0) pg MCHC 32.1 (32.0-36.0) g/dL RDW Std Deviation 51.1 H (36.4-46.3) fL RDW Coeff of Yuki 16.1 H (11.5-14.5) % Plt Count 160 (130-400) K/uL MPV 10.5 (9.4-12.4) fL Immature Gran % (Auto) 0.2 % Neut % (Auto) 57.1 % Lymph % (Auto) 26.5 % [place] % (Auto) 11.6 % Eos % (Auto) 3.8 % Baso % (Auto) 0.8 % Neut # (Auto) 2.86 (1.40-6.50) K/uL Lymph # (Auto) 1.33 (1.20-3.40) K/uL [place] # (Auto) 0.58 (0.11-0.59) K/uL Eos # (Auto) 0.19 (0.00-0.50) K/uL Baso # (Auto) 0.04 (0.00-0.20) K/uL Immature Gran # (Auto) 0.01 (0.01-0.20) K/uL Sodium 134 L (136-145) mmol/L Potassium 6.6 H* (3.5-5.1) mmol/L Chloride 94 L (98-107) mmol/L Carbon Dioxide 31 (21-32) mmol/L Anion Gap 9 (3-11) BUN 59 H (6-23) mg/dl Creatinine 7.76 H* (0.6-1.4) mg/dl Est Cr Clr Drug Dosing Not Reportable Est GFR ( Amer) 9.1 ml/min Est GFR (Non-Af Amer) 7.8 ml/min BUN/Creatinine Ratio 7.6 L (10-20) Glucose 123 H (70-99(Fasting)) mg/dl Calcium 9.2 (8.6-10.3) mg/dl Total Bilirubin 0.8 (0.2-1.0) mg/dl AST 24 (13-39) U/L ALT 24 (7-52) U/L Alkaline Phosphatase 214 H (34-104) U/L Total Protein 7.8 (6.0-8.3) gm/dl Albumin 3.8 (3.4-5.0) gm/dl Globulin 4.0 (2.5-4.0) gm/dl Albumin/Globulin Ratio 1.0 (0.9-2) Lipase 41 (11-82) U/L Administered Medications Discontinued Medications Albuterol (Albuterol 0.5% Neb Soln 2.5 Mg/0.5 Ml Vial) 10 mg NEB NOW STA Stop: 06/07/23 05:48 Last Admin: 06/07/23 06:23 Dose: 10 mg Documented By: BJORN Dextrose (Dextrose 50% 50 Ml Syringe) 50 ml IV NOW STA Stop: 06/07/23 05:48 Last Admin: 06/07/23 06:20 Dose: 50 ml Documented By: BJORN Furosemide (Furosemide 40 Mg/4 Ml Vial) 40 mg IV ONE STA Stop: 06/07/23 05:48 Last Admin: 06/07/23 06:19 Dose: 40 mg Documented By: BJORN Calcium Gluconate 1,000 mg/ (Sodium Chloride) 60 mls @ 240 mls/hr IV NOW ONE Stop: 06/07/23 06:01 Last Infusion: 06/07/23 06:45 Dose: Infused Documented By: Admin: 06/07/23 06:31 Dose: 240 mls/hr Documented By: BJORN Insulin Human Regular 10 units (/ Syringe) 9.9 mls @ 3 mls/sec IV ONE STA Stop: 06/07/23 05:48 Last Admin: 06/07/23 06:31 Dose: 3 mls/sec Documented By: BJORN Co-signed By: MANUEL Miscellaneous (Stat Iv/Im) 1 each N/A NOW STA Stop: 06/07/23 05:48 Last Admin: 06/07/23 06:26 Dose: 1 each Documented By: BJRON Imaging Data Radiologist's Impression: Abdomen/Pelvis CT 06/07/23 04:44 Exam(s): CT ABDOMEN + PELVIS Without Contrast EXAM: CT Abdomen and Pelvis Without Intravenous Contrast CLINICAL HISTORY: Reason for exam: Generalized abdominal pain, diarrhea. TECHNIQUE: Axial computed tomography images of the abdomen and pelvis without intravenous contrast. CTDI is 27.9 mGy and DLP is 1396.68 mGy-cm. Automated exposure control was utilized for the study. A dose lowering technique was utilized adhering to the principles of ALARA. COMPARISON: No relevant prior studies available. FINDINGS: Lung bases: Unremarkable. No mass. No consolidation. Heart: Mild cardiomegaly. ABDOMEN: Liver: Unremarkable. Gallbladder and bile ducts: Unremarkable. No calcified stones. No ductal dilation. Pancreas: Unremarkable. No ductal dilation. Spleen: Unremarkable. No splenomegaly. Adrenals: Unremarkable. No mass. Kidneys and ureters: Nonobstructing 3 mm left nephrolithiasis. Stomach and bowel: Large bowel not well distended and its wall thickness cannot be adequately evaluated. No obstruction. No mucosal thickening. PELVIS: Appendix: Normal appendix. Bladder: The urinary bladder is decompressed. No stones. Reproductive: Unremarkable as visualized. ABDOMEN and PELVIS: Intraperitoneal space: Unremarkable. No free air. No significant fluid collection. Bones/joints: No acute fracture. No dislocation. Soft tissues: Unremarkable. Vasculature: Unremarkable. No abdominal aortic aneurysm. Lymph nodes: Bilateral inguinal lymphadenopathy measuring up to 1 cm in short axis diameter. There are distal para-aortic lymph nodes measuring up to 1.3 cm in short axis diameter. Borderline prominent bilateral external iliac lymph nodes are seen. IMPRESSION: Evaluation limited by lack of intravenous and oral contrast 1. No evidence of acute abdominal process identified 2. Para-aortic and pelvic lymphadenopathy which is stable since 09/04/2016 CT Electronically signed by: Travis Becerra MD 06/07/23 06:33 AM Discharge Plan Visit Data Chief Complaint: Diarrhea Stated Complaint: DIARRHEA X SEVERAL MONTHS ED Provider: Antonio Almanzar Discharge Problem: Acute hyperkalemia Forms Stand Alone Forms: [facility] Prescriptions Prescriptions: No Action ammonium lactate 12 % cream 1 applic topical DAILY 30 Days Qty: 385 6RF Rx Instructions: Apply to lower legs and feet daily with dressing changes. (DME) pen needle, diabetic [Comfort EZ Pen [place]] 29 gauge x 1/2" needle See Rx Instructions .ROUTE .MEDSUPPLY Qty: 400 3RF Rx Instructions: use 4 x daily duloxetine [Cymbalta] 60 mg capsule,delayed release(DR/EC) 60 mg PO QAM Qty: 90 3RF pantoprazole [Protonix] 40 mg tablet,delayed release (DR/EC) 40 mg PO QAM Qty: 90 3RF RenaPlex-D 800 mcg-12.5 mg -2,000 unit tablet 1 tab PO DAILY Qty: 30 4RF (DME) lancets [OneTouch Delica Plus Lancet] 33 gauge misc See Rx Instructions .Route Qty: 400 3RF Rx Instructions: test blood sugars 4 times daily cinacalcet 60 mg tablet 60 mg PO DAILY Qty: 30 2RF atorvastatin [Lipitor] 80 mg tablet 80 mg PO DAILY Qty: 90 3RF amlodipine 10 mg tablet 10 mg PO DAILY Qty: 90 2RF ciprofloxacin HCl 500 mg tablet 500 mg PO DAILY Qty: 7 0RF (DME) Ketostix Strip See Rx Instructions .ROUTE .MEDSUPPLY Rx Instructions: As directed (DME) lancets [OneTouch Delica Lancets] 33 gauge misc See Rx Instructions .ROUTE .MEDSUPPLY Qty: 400 3RF Rx Instructions: test blood suigars 4 x daily (DME) Dexcom G7 Copper Plate Printer Misc See Rx Instructions .Route Qty: 1 0RF Rx Instructions: As directed Eliquis 5 mg tablet 5 mg PO BID 30 Days Qty: 180 3RF insulin detemir U-100 100 unit/mL (3 mL) insulin pen 20 unit SQ PM metoprolol succinate 50 mg tablet extended release 24 hr 50 mg PO BID Qty: 180 3RF (DME) Dexcom G7 Sensor Device See Rx Instructions .Route Qty: 3 5RF Rx Instructions: As directed (DME) blood-glucose meter [OneTouch Verio Flex meter] Misc See Rx Instructions .ROUTE .MEDSUPPLY Qty: 1 0RF Rx Instructions: As directed (DME) OneTouch Verio test strips Strip See Rx Instructions .ROUTE .MEDSUPPLY Qty: 400 3RF Rx Instructions: Test 4 times daily tramadol 50 mg tablet 50 mg PO Q6H PRN (Reason: pain) Qty: 15 0RF levothyroxine [Synthroid] 50 mcg tablet 50 mcg PO DAILY Qty: 90 3RF calcium acetate(phosphat bind) 667 mg capsule 2,001 mg PO TIDM Rx Instructions: Patient takes 3 capsules with each main meal of the day. insulin aspart U-100 100 unit/mL (3 mL) insulin pen 20 unit subcut TID Rx Instructions: Sliding Scale bumetanide 2 mg tablet 4 mg PO BID gabapentin 300 mg capsule 600 mg PO BID Referrals Referrals: Maki Peterson MD [Primary Care Provider] -
[2023-06-07 05:25] LABS: Basophils # (auto) 0.04 K/uL (0.00-0.20); Basophils % (auto) 0.8 %; Eosinophils # (auto) 0.19 K/uL (0.00-0.50); Eosinophils % (auto) 3.8 %; Hematocrit (blood only) 32.1 % (42.0-52.0); Hemoglobin 10.3 g/dl (14.0-18.0); Immature Granulocytes # (auto) 0.01 K/uL (0.01-0.20); Immature Granulocytes % (auto) 0.2 %; Lymphocytes # (auto) 1.33 K/uL (1.20-3.40); Lymphocytes % (auto) 26.5 %; Mean Corpuscular Hemoglobin 28.1 pg (25.0-34.0); Mean Corpuscular Hgb Conc 32.1 g/dL (32.0-36.0); Mean Corpuscular Volume 87.7 fL (80.0-100.0); Mean Platelet Volume 10.5 fL (9.4-12.4); Monocytes # (auto) 0.58 K/uL (0.11-0.59); Monocytes % (auto) 11.6 %; Neutrophils # (auto) 2.86 K/uL (1.40-6.50); Neutrophils % (auto) 57.1 %; Platelet Count 160 K/uL (130-400); RDW Coefficient of Variation 16.1 % (11.5-14.5); RDW Standard Deviation 51.1 fL (36.4-46.3); Red Blood Count 3.66 M/uL (4.70-6.10); White Blood Count 5.01 K/ul (4.8-10.8)
[2023-06-07 05:48] LABS: Alanine Aminotransferase 24 U/L (7-52); Albumin Level 3.8 gm/dl (3.4-5.0); Alkaline Phosphatase 214 U/L (34-104); Anion Gap 9 (3-11); Aspartate Aminotransferase 24 U/L (13-39); BUN Creatinine Ratio 7.6 (10-20); Bilirubin,Total 0.8 mg/dl (0.2-1.0); Blood Urea Nitrogen 59 mg/dl (6-23); Calcium 9.2 mg/dl (8.6-10.3); Carbon Dioxide 31 mmol/L (21-32); Chloride 94 mmol/L (98-107); Est GFR (African American) 9.1 ml/min; Est GFR (Non-African American) 7.8 ml/min; Glucose 123 mg/dl (70-99(Fasting)); Lipase 41 U/L (11-82); Potassium 6.6 mmol/L (3.5-5.1); Sodium 134 mmol/L (136-145); Total Protein 7.8 gm/dl (6.0-8.3)
[2023-06-07] MEDS: FUROSEMIDE 40 MG/4 ML VIAL IV STA (06:19)
[2023-06-07] MEDS: DEXTROSE 50% 50 ML SYRINGE IV STA (06:20)
[2023-06-07] MEDS: ALBUTEROL 0.5% NEB SOLN 2.5 MG/0.5 ML VIAL NEB STA (06:23)
[2023-06-07] MEDS: STAT IV/IM STA (06:26)
[2023-06-07] MEDS: CALCIUM GLUCONATE 10% 1,000 MG in SODIUM CHLOR 0.9% MINI-B 50 ML IV ONE (06:31)
[2023-06-07] MEDS: INSULIN HUMAN REGULAR PER UNIT 10 UNITS in SYRINGE 9.9 ML IV STA (06:31)
--- NOTE | 2023-06-07 06:34 | CT Scan Report ---
Exam(s): CT ABDOMEN + PELVIS Without Contrast EXAM: CT Abdomen and Pelvis Without Intravenous Contrast CLINICAL HISTORY: Reason for exam: Generalized abdominal pain, diarrhea. TECHNIQUE: Axial computed tomography images of the abdomen and pelvis without intravenous contrast. CTDI is 27.9 mGy and DLP is 1396.68 mGy-cm. Automated exposure control was utilized for the study. A dose lowering technique was utilized adhering to the principles of ALARA. COMPARISON: No relevant prior studies available. FINDINGS: Lung bases: Unremarkable. No mass. No consolidation. Heart: Mild cardiomegaly. ABDOMEN: Liver: Unremarkable. Gallbladder and bile ducts: Unremarkable. No calcified stones. No ductal dilation. Pancreas: Unremarkable. No ductal dilation. Spleen: Unremarkable. No splenomegaly. Adrenals: Unremarkable. No mass. Kidneys and ureters: Nonobstructing 3 mm left nephrolithiasis. Stomach and bowel: Large bowel not well distended and its wall thickness cannot be adequately evaluated. No obstruction. No mucosal thickening. PELVIS: Appendix: Normal appendix. Bladder: The urinary bladder is decompressed. No stones. Reproductive: Unremarkable as visualized. ABDOMEN and PELVIS: Intraperitoneal space: Unremarkable. No free air. No significant fluid collection. Bones/joints: No acute fracture. No dislocation. Soft tissues: Unremarkable. Vasculature: Unremarkable. No abdominal aortic aneurysm. Lymph nodes: Bilateral inguinal lymphadenopathy measuring up to 1 cm in short axis diameter. There are distal para-aortic lymph nodes measuring up to 1.3 cm in short axis diameter. Borderline prominent bilateral external iliac lymph nodes are seen. IMPRESSION: Evaluation limited by lack of intravenous and oral contrast 1. No evidence of acute abdominal process identified 2. Para-aortic and pelvic lymphadenopathy which is stable since 09/04/2016 CT Electronically signed by: Travis Becerra MD 06/07/23 06:33 AM
--- NOTE | 2023-06-07 07:45 | History & Physical Report ---
Date of Service June 07, 2023 Assessment & Plan (1) Acute hyperkalemia: Plan: secondary to increased potassium in diet with fruits and also missing partial dialysis session earlier this week urgent dialysis now, discussed with Nephro follow BMP later after dialysis as pt insists he will be leaving/going home today after dialysis continue home bumex advised low K+ diet (2) Diarrhea: Plan: ongoing for months had C. diff stool test as outpt which was not tested due to submitting a formed stool-pt was misinformed that his test was negative however, he does take Imodium which then causes constipation suspect more likely from dietary changes with increased fiber in diet over last few months but he is at risk for C. diff given antibiotic use for wounds order stool BioFire and C. diff for here if can given sample (3) Venous ulcers of both lower extremities: Plan: continue outpt wound care, seems to be healing (4) Anxiety: Plan: continue home meds (5) CHF (congestive heart failure): Plan: HFpEF volume managed with HD continue bumex (6) ESRD on dialysis: Plan: urgent dialysis now consult Nephrology appreciated (7) Hypertension: Plan: BPs controlled continue home meds (8) Hypothyroidism: Plan: TSH 4.9 in 10/2022 continue home LT4 and f/u PCP (9) Atrial fibrillation: Plan: paroxysmal, in sinus rhythm here continue ELiquis, metoprolol monitor on tele (10) Uncontrolled type 1 diabetes mellitus with kidney complication, with long- term current use of insulin: Plan: continue insulin, Pharmacy managing here uncontrolled needs close outpt f/u (11) Diabetic peripheral neuropathy: Plan: continue gabapentin at home doses-dose is higher than recommended for renal dosing but apparently he has not tolerated dose reduction in the past Plan Dispo-admit to PCU, urgent dialysis History of Present Illness Chief Complaint: diarrhea Primary Care Provider: Maki Peterson MD This pt is a 42 yo male with a h/o ESRD on HD MWF, HTN,DM type 1 with neuropathy, nephropathy, hypothyroidism, venous ulcers who presents to ER with c/o significant diarrhea. He has been having diarrhea for several months and it usually improves to the point of becoming constipated for a few days after taking Imodium. He then will have profuse diarrhea multiple times per day after that. He was afraid of having incontinence to stool at dialysis this past Saturday so he only completed half a session. He then had a full session on Sat, and was to have HD today but came to the ER instead to get checked out. Potassium was elevated here on arrival at 6.6 and he was treated with calcium gluconate, insulin and D50, albuterol neb. He did take an Imodium earlier this AM and has not had any further diarrhea since then. He had a C. diff stool test as an outpt and it was not tested as it was a formed stool. He was taking Cipro from [facility] and then was treated empirically for C. diff with a 14 day course of po flagyl from Nephrology on 05/08/23-05/22/23. Denies abd pains or fevers. He does believe that he has drastically changed his diet in the last few months in an effort to eat healthier foods and is eating a lot more fruits and vegetables, fiber. He will be admitted for urgent dialysis for hyperkalemia as a result of missing some dialysis this week. Allergies Allergy/AdvReac Type Severity Reaction Status Date / Time lisinopril AdvReac Intermediate COUGH Verified 05/23/23 10:28 Home Medications Medication Instructions Recorded Confirmed Type OneTouch Delica Lancets 33 gauge #400 ea 10/16/19 05/21/23 Rx (lancets) pen needle, diabetic 29 gauge x #400 ea 01/25/21 05/21/23 Rx 1/2" (Comfort EZ Pen Cornelius) duloxetine 60 mg capsule,delayed 60 mg PO QAM #90 caps 05/25/22 06/07/23 Rx release (Cymbalta) pantoprazole 40 mg tablet,delayed 40 mg PO QAM #90 tabs 05/25/22 06/07/23 Rx release (Protonix) calcium acetate(phosphat bind) 667 2,001 mg PO TIDM 08/22/22 06/07/23 History mg capsule insulin aspart U-100 100 unit/mL 20 unit subcut TID 12/31/22 06/07/23 History (3 mL) subcutaneous pen bumetanide 2 mg tablet 4 mg PO BID 01/26/23 06/07/23 History gabapentin 300 mg capsule 600 mg PO BID 01/26/23 06/07/23 History lancets 33 gauge (OneTouch Delica #400 ea 01/28/23 05/21/23 Rx Plus Lancet) acetone (urine) test (Ketostix 01/29/23 05/21/23 History strips) cinacalcet 60 mg tablet 60 mg PO DAILY #30 tabs 02/15/23 06/07/23 Rx atorvastatin 80 mg tablet (Lipitor) 80 mg PO DAILY #90 tabs 03/05/23 06/07/23 Rx apixaban 5 mg tablet (Eliquis) 5 mg PO BID 30 days #180 tabs 03/20/23 06/07/23 Rx blood-glucose meter,continuous #1 ea 03/20/23 05/21/23 Rx (Dexcom G7 Emblem Fuser Tender) insulin detemir U-100 100 unit/mL 20 unit subcut PM 03/20/23 06/07/23 History (3 mL) subcutaneous pen amlodipine 10 mg tablet 10 mg PO DAILY #90 tabs 04/03/23 06/07/23 Rx levothyroxine 50 mcg tablet 50 mcg PO DAILY #90 tabs 04/09/23 06/07/23 Rx (Synthroid) blood sugar diagnostic (OneTouch #400 ea 05/21/23 05/23/23 Rx Verio test strips) blood-glucose meter (OneTouch #1 ea 05/21/23 05/23/23 Rx Verio Flex Meter) blood-glucose sensor (Dexcom G7 #3 ea 05/21/23 05/23/23 Rx Sensor device) metoprolol succinate 50 mg 50 mg PO BID #180 tabs 05/21/23 06/07/23 Rx tablet,extended release 24 hr tramadol 50 mg tablet 50 mg PO Q6H PRN pain #15 tabs 05/21/23 06/07/23 Rx ammonium lactate 12 % topical cream 1 applic topical DAILY PRN Dry Skin 06/07/23 06/07/23 History Past Med/Surg History Medical History (Updated 06/11/23 @ 12:08 by Lety Landin MD) Acute hyperglycemia Atrial fibrillation with rapid ventricular response Renal failure History of COVID-19 DX'D [facility] 04/28/21 COUGH-HOSPITALIZED X 1 DAY-RECOVERED AT HOME-RESOLVED Hyperosmolar hyperglycemic state (HHS) ESRD (end stage renal disease) Thrombosis of arteriovenous dialysis fistula (~02/15/20) Erectile dysfunction GERD (gastroesophageal reflux disease) Well controlled and stable ESRD (end stage renal disease) requiring hemodialysis. MWF at [facility]. Diabetic retinopathy Hypertension Hypothyroidism Diabetic peripheral neuropathy associated with type 1 diabetes mellitus Type 1 diabetes Depression Chronic venous insufficiency H/O febrile seizure as a child (every year until he was 11 years old) no problems since. High cholesterol Surgical History History of esophagogastroduodenoscopy (EGD) H/O detached retina repair S/P arteriovenous (AV) fistula creation left side, unable to use Family History Mother Diabetes Coronary heart disease Hypertension Father Coronary heart disease Hypertension Brother Coronary heart disease Kidney disease Uncle Colorectal cancer Grandmother Diabetes Aunt Diabetes Unknown Dyslipidemia Grandfather (Maternal) Diabetes Other Cancer No family history of adverse response to anesthesia Social History Smoking Status: Never smoker Second Hand Exposure: No; Do You Dip or Chew Tobacco: No; Hx Alcohol Use: No Hx Substance Use: No Preferred Language: Latvian Communication Ability: Effective Visual Impairment: No Limitations Hearing Ability: Normal 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 Shop 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: No Beliefs That Will Affect Care: None marital status: Single Current Living Situation: Alone Current Living Situation Comment: Brother 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" How many Children do You have: 0 Feels Safe at Home: Yes Diet: regular Dental Care, Regularly: No Physical Activity Frequency: Does not Exercise Seatbelt Use: always Sunscreen Use: No Assistive Devices: Cane Review of Systems Review of Systems: All systems reviewed & are unremarkable except as noted in HPI & below Physical Exam Constitutional: WD/WN, vitals as above + obese Neck: trachea midline, no thyromegaly Respiratory: normal respiratory effort, lungs clear to auscultation Cardiovascular: Rate/Rhythm: regular rate and regular rhythm Heart Sounds: no murmur Extremities: + edema (2+ pitting edema,wound dressings in place, kerlix) Gastrointestinal (Abdomen): normal bowel sounds, soft, nontender, no hepatosplenomegaly Musculoskeletal: Extremities: no cyanosis and no clubbing Skin: legs with ichthyosis , venous ulcers covered with dressing Neurologic: moves all extremities and awake; no focal motor deficits Psychiatric: A+Ox3, euthymic affect Results & Data Results & Data Vital Signs (Past 12 Hours) Vital Signs Pulse Pulse Resp BP Pulse Ox O2 Del Method 06/07/23 06:26 76 16 173/100 H 100 Nebulizer 06/07/23 06:26 75 16 100 Nebulizer 06/07/23 06:00 78 06/07/23 05:56 78 16 06/07/23 04:44 76 20 159/96 H 99 Room Air Laboratory Results CBC, BMP, LFTs, lipase and repeat BMP reviewed Diagnostic Findings CT abd/pel reviewed ECG Additional Comments: NSR, no ischemic changes Code Status & VTE Plan Code Status FULL CODE VTE Prophylaxis Plan VTE Prophylaxis will be ordered: Yes PG Care Time/CCT Total # of Minutes Spent Total Time Spent with Patient: Total time spent is greater than 50% in coordination of care (as documented) at patient's floor/unit and/or counseling patient: Coding Level of Care Code 57569 INT INP/OBS CARE 3/75MIN Diagnoses Acute hyperkalemia E87.5 Diarrhea R19.7 Diarrhea type: unspecified type Venous ulcers of both lower extremities I83.019; I83.029; L97.919; L97.929 Anxiety F41.9 CHF (congestive heart failure) I50.9 ESRD on dialysis N18.6; Z99.2 Hypertension I10 Hypertension type: unspecified Hypothyroidism, unspecified type E03.9 Hypothyroidism type: unspecified Atrial fibrillation I48.91 Uncontrolled type 1 diabetes mellitus with kidney complication, with long-term current use of insulin E10.29; E10.65 Diabetic peripheral neuropathy E11.42 (2) Diarrhea Diarrhea type: unspecified type Qualified Code(s): R19.7 - Diarrhea, unspecified (7) Hypertension Hypertension type: unspecified Qualified Code(s): I10 - Essential (primary) hypertension (8) Hypothyroidism Hypothyroidism type: unspecified Qualified Code(s): E03.9 - Hypothyroidism, unspecified
--- NOTE | 2023-06-07 09:24 | Nephrology Consultation ---
Date of Consultation June 07, 2023 Assessment & Plan (1) ESRD (end stage renal disease): HD MWF at [facility]. Ventura presented to the hospital with diarrhea but has volume overload and hyperkalemia as well. Emergent HD was coordinated through the ER. Orders and plan of care were discussed with the dialysis nurse. Medications appropriately dosed for kidney function. Dietary goals including low potassium diet and daily fluid restriction were reviewed. Risks associated with hyperkalemia and volume overload stressed. Mr. Snell expressed understanding. AVF with thrill and bruit. AVF has been functioning well for dialysis. There is a high pitch proximally. Noted aneurysm. Scheduled for fistulogram with Dr. Combs next week. Renal diet. Phoslo QAC. Sensipar can be held while inpatient. (2) Hypertension: Volume status hypervolemic. Hold metoprolol pre-HD. EDW 116 kg. (3) Anemia: Chronic. Relatively stable. No signs of blood loss reported. ANTHONY therapy not required today. (4) Acute hyperkalemia: Calcium gluconate and medical management provided in the ED this morning. I discussed the plan of care with Dr. Landin earlier this AM. No acute EKG changes. Emergent HD coordinated. Remains on tele monitor. History of Present Illness Reason for Consultation: ESRD on HD, hyperkalemia Requesting Physician: Lety Landin MD Attending Physician: Lety Landin MD History of Present Illness Mr. Snell is a 42 year-old male with ESRD who presented to the ER at [facility] with diarrhea and weakness. Mr. Snell has ESRD due to DKD. He started on IHD 03/10 and dialyzes via LUE AVF.He dialyzes at [facility] MWF (4 hr, 2K 2.5Ca, Revaclear 300 dialyzer, Wb 450, Qd 500, EDW 116 kg).A full dialysis treatment was completed on Saturday without complications. Post weight of 117.2 kg. Medical history is significant for IDDM (Dx 10+ yoa, + retinopathy & neuropathy), morbid obesity, hypothyroidism, anemia, depression/anxiety. Ventura has continued to struggle with high IDWG and uncontrolled hypertension. He states that he has been having diarrhea intermittently for several weeks. He uses Imodium regularly for the symptoms. He took some this morning and it generally works. Unfortunately, he was having multiple loose, watery stool yesterday and overnight with notable urgency. He had concerns that he would not make it through a dialysis treatment. Ventura states that he has been feeling weak - "like my sugar is up." He has been sleeping more than normal. He is breathing comfortably. He denies fevers or chills. He denies melena or hematochezia. He denies any sick contacts. He does not believe recent GI symptoms were triggered by anything he ate. He denies abdominal pain or discomfort. Allergies Allergy/AdvReac Type Severity Reaction Status Date / Time lisinopril AdvReac Intermediate COUGH Verified 05/23/23 10:28 Home Medications Medication Instructions Recorded Confirmed Type OneTouch Delica Lancets 33 gauge #400 ea 10/16/19 05/21/23 Rx (lancets) pen needle, diabetic 29 gauge x #400 ea 01/25/21 05/21/23 Rx 1/2" (Comfort EZ Pen Williamson) duloxetine 60 mg capsule,delayed 60 mg PO QAM #90 caps 05/25/22 06/07/23 Rx release (Cymbalta) pantoprazole 40 mg tablet,delayed 40 mg PO QAM #90 tabs 05/25/22 06/07/23 Rx release (Protonix) calcium acetate(phosphat bind) 667 2,001 mg PO TIDM 08/22/22 06/07/23 History mg capsule insulin aspart U-100 100 unit/mL 20 unit subcut TID 12/31/22 06/07/23 History (3 mL) subcutaneous pen bumetanide 2 mg tablet 4 mg PO BID 01/26/23 06/07/23 History gabapentin 300 mg capsule 600 mg PO BID 01/26/23 06/07/23 History lancets 33 gauge (OneTouch Delica #400 ea 01/28/23 05/21/23 Rx Plus Lancet) acetone (urine) test (Ketostix 01/29/23 05/21/23 History strips) cinacalcet 60 mg tablet 60 mg PO DAILY #30 tabs 02/15/23 06/07/23 Rx atorvastatin 80 mg tablet (Lipitor) 80 mg PO DAILY #90 tabs 03/05/23 06/07/23 Rx apixaban 5 mg tablet (Eliquis) 5 mg PO BID 30 days #180 tabs 03/20/23 06/07/23 Rx blood-glucose meter,continuous #1 ea 03/20/23 05/21/23 Rx (Dexcom G7 Business Records Manager) insulin detemir U-100 100 unit/mL 20 unit subcut PM 03/20/23 06/07/23 History (3 mL) subcutaneous pen amlodipine 10 mg tablet 10 mg PO DAILY #90 tabs 04/03/23 06/07/23 Rx levothyroxine 50 mcg tablet 50 mcg PO DAILY #90 tabs 04/09/23 06/07/23 Rx (Synthroid) blood sugar diagnostic (OneTouch #400 ea 05/21/23 05/23/23 Rx Verio test strips) blood-glucose meter (OneTouch #1 ea 05/21/23 05/23/23 Rx Verio Flex Meter) blood-glucose sensor (Dexcom G7 #3 ea 05/21/23 05/23/23 Rx Sensor device) metoprolol succinate 50 mg 50 mg PO BID #180 tabs 05/21/23 06/07/23 Rx tablet,extended release 24 hr tramadol 50 mg tablet 50 mg PO Q6H PRN pain #15 tabs 05/21/23 06/07/23 Rx ammonium lactate 12 % topical cream 1 applic topical DAILY PRN Dry Skin 06/07/23 06/07/23 History Patient History Medical History Acute hyperglycemia Atrial fibrillation with rapid ventricular response Renal failure History of COVID-19 DX'D [facility] 04/28/21 COUGH-HOSPITALIZED X 1 DAY-RECOVERED AT HOME-RESOLVED Hyperosmolar hyperglycemic state (HHS) ESRD (end stage renal disease) Thrombosis of arteriovenous dialysis fistula (~02/15/20) Erectile dysfunction GERD (gastroesophageal reflux disease) Well controlled and stable ESRD (end stage renal disease) requiring hemodialysis. MWF at [facility]. Diabetic retinopathy Hypertension Hypothyroidism Diabetic peripheral neuropathy associated with type 1 diabetes mellitus Type 1 diabetes Depression Chronic venous insufficiency H/O febrile seizure as a child (every year until he was 11 years old) no problems since. High cholesterol Surgical History History of esophagogastroduodenoscopy (EGD) H/O detached retina repair S/P arteriovenous (AV) fistula creation left side, unable to use Family History Mother Diabetes Coronary heart disease Hypertension Father Coronary heart disease Hypertension Brother Coronary heart disease Kidney disease Uncle Colorectal cancer Grandmother Diabetes Aunt Diabetes Unknown Dyslipidemia Grandfather (Maternal) Diabetes Other Cancer No family history of adverse response to anesthesia Social History Smoking Status: Never smoker Second Hand Exposure: No; Do You Dip or Chew Tobacco: No; Hx Alcohol Use: Yes Alcohol type: beer Hx Substance Use: No Preferred Language: Slovenian Communication Ability: Effective Visual Impairment: No Limitations Hearing Ability: Normal Strategic Sourcing Specialist Required: No Beliefs That Will Affect Care: None marital status: Single Current Living Situation: Alone Current Living Situation Comment: Brother 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" How many Children do You have: 0 Feels Safe at Home: Yes Diet: regular Dental Care, Regularly: No Physical Activity Frequency: Does not Exercise Seatbelt Use: always Sunscreen Use: No Assistive Devices: Cane and Walker Review of Systems Review of Systems: All systems reviewed & are unremarkable except as noted in HPI & below Constitutional: as per Subjective / HPI; no fever and no chills Physical Exam Constitutional: well developed and + morbidly obese; no acute distress Eyes: + anicteric sclerae; no conjunctival abn ormality ENMT: Mouth: no oral mucosal abnormality and oral mucous membranes not dry Neck: normal visual inspection and trachea midline Respiratory: normal respiratory effort Auscultation: lungs clear to aus cultation bilaterally Cardiovascular: Rate/Rhythm: regular rate Heart Sounds: normal S1, normal S2 and + murmur Extremities: + edema and + AV fistula (+thrill and bruit, aneurysm stable, high pitched) Musculoskeletal: Extremities: no cyanosis and no clubbing Skin: normal turgor; no lesions Neurologic: Motor/Sensory: no tremor and no asterixis Psychiatric: Orientation: alert and oriented x 3 Results & Data Vital Signs (Past 12 Hours) Vital Signs Pulse Pulse Resp BP Pulse Ox O2 Del Method O2 Flow Rate 06/07/23 08:11 82 18 100 Nasal Cannula 2 06/07/23 08:10 81 17 78 L Room Air 02/16/24 08:00 82 18 139/86 95 Room Air 06/07/23 06:26 76 16 173/100 H 100 Nebulizer 06/07/23 06:26 75 16 100 Nebulizer 06/07/23 06:00 78 06/07/23 05:56 78 16 06/07/23 04:44 76 20 159/96 H 99 Room Air Laboratory Results Laboratory Results - last 24 hr 06/07/23 06/07/23 06/07/23 05:07 08:05 09:02 WBC 5.01 RBC 3.66 L Hgb 10.3 L Hct 32.1 L MCV 87.7 MCH 28.1 MCHC 32.1 RDW Std Deviation 51.1 H RDW Coeff of Yuki 16.1 H Plt Count 160 MPV 10.5 Immature Gran % (Auto) 0.2 Neut % (Auto) 57.1 Lymph % (Auto) 26.5 Caroline % (Auto) 11.6 Eos % (Auto) 3.8 Baso % (Auto) 0.8 Neut # (Auto) 2.86 Lymph # (Auto) 1.33 Caroline # (Auto) 0.58 Eos # (Auto) 0.19 Baso # (Auto) 0.04 Immature Gran # (Auto) 0.01 Sodium 134 L Pending Potassium 6.6 H* Pending Chloride 94 L Pending Carbon Dioxide 31 Pending Anion Gap 9 Pending BUN 59 H Pending Creatinine 7.76 H* Pending Est Cr Clr Drug Dosing Not Reportable Pending Est GFR ( Amer) 9.1 Pending Est GFR (Non-Af Amer) 7.8 Pending BUN/Creatinine Ratio 7.6 L Pending Glucose 123 H Pending POC Glucose 146 H Calcium 9.2 Pending Total Bilirubin 0.8 AST 24 ALT 24 Alkaline Phosphatase 214 H Total Protein 7.8 Albumin 3.8 Globulin 4.0 Albumin/Globulin Ratio 1.0 Lipase [address] ABDOMEN + PELVIS Without Contrast COMPARISON: No relevant prior studies available. FINDINGS: Lung bases: Unremarkable. No mass. No consolidation. Heart: Mild cardiomegaly. ABDOMEN: Liver: Unremarkable. Gallbladder and bile ducts: Unremarkable. No calcified stones. No ductal dilation. Pancreas: Unremarkable. No ductal dilation. Spleen: Unremarkable. No splenomegaly. Adrenals: Unremarkable. No mass. Kidneys and ureters: Nonobstructing 3 mm left nephrolithiasis. Stomach and bowel: Large bowel not well distended and its wall thickness cannot be adequately evaluated. No obstruction. No mucosal thickening. PELVIS: Appendix: Normal appendix. Bladder: The urinary bladder is decompressed. No stones. Reproductive: Unremarkable as visualized. ABDOMEN and PELVIS: Intraperitoneal space: Unremarkable. No free air. No significant fluid collection. Bones/joints: No acute fracture. No dislocation. Soft tissues: Unremarkable. Vasculature: Unremarkable. No abdominal aortic aneurysm. Lymph nodes: Bilateral inguinal lymphadenopathy measuring up to 1 cm in short axis diameter. There are distal para-aortic lymph nodes measuring up to 1.3 cm in short axis diameter. Borderline prominent bilateral external iliac lymph nodes are seen. IMPRESSION: Evaluation limited by lack of intravenous and oral contrast 1. No evidence of acute abdominal process identified 2. Para-aortic and pelvic lymphadenopathy which is stable since 09/04/2016 CT PG Care Time/CCT Total # of Minutes Spent Total Time Spent with Patient: Total time spent is greater than 50% in coordination of care (as documented) at patient's floor/unit and/or counseling patient: Coding Level of Care Code 43226 IN/OBS CONSULT LVL 5,80M Diagnoses ESRD (end stage renal disease) N18.6 Hypertension I10 Hypertension type: unspecified Anemia D64.9 Acute hyperkalemia E87.5 (2) Hypertension Hypertension type: unspecified Qualified Code(s): I10 - Essential (primary) hypertension
[2023-06-07 09:38] LABS: BUN Creatinine Ratio 8.3 (10-20); Calcium 8.9 mg/dl (8.6-10.3); Creatinine Clr Calc Pharmacy 15.7 ml/min; Est GFR (African American) 9.3 ml/min; Potassium 6.2 mmol/L (3.5-5.1)
[2023-06-07] MEDS ORDERED: GLUCOSE 40% GEL 15 GM TUBE PO PRN (09:55)
[2023-06-07] MEDS ORDERED: GLUCAGON FOR INJ 1 MG VIAL SQ PRN (09:55)
[2023-06-07] MEDS ORDERED: ACETAMINOPHEN 325 MG TAB PO PRN (09:55)
[2023-06-07] MEDS ORDERED: ONDANSETRON INJ 2 MG/ML 2 ML VIAL IV PRN (09:55)
[2023-06-07] MEDS ORDERED: traMADol HCL 50 MG TABLET PO PRN (09:55)
[2023-06-07] MEDS ORDERED: GLUCOSE 10 TAB/TUBE PO PRN (09:55)
[2023-06-07] MEDS ORDERED: DEXTROSE 50% 50 ML SYRINGE IV PRN (09:55)
[2023-06-07] MEDS ORDERED: CARBOHYDRATES FOR HYPOGLYCEMIA PO PRN (09:55)
[2023-06-07] MEDS ORDERED: PHARMACY GLYCEMIC MGMT CONSULT PRN (09:55)
--- NOTE | 2023-06-07 11:49 | Electrocardiogram Report ---
Test Reason : Blood Pressure : / mmHG Vent. Rate : 076 BPM Atrial Rate : 076 BPM P-R Int : 168 ms QRS Dur : 094 ms QT Int : 400 ms P-R-T Axes : 024 001 062 degrees QTc Int : 450 ms Normal sinus rhythm Normal ECG When compared with ECG of 10-MAR-2023 03:07, No significant change was found Confirmed by Darshan Garcia ([id number]) on 06/07/2023 11:49:06 AM Referred By: Confirmed By:Darshan Garcia
--- NOTE | 2023-06-07 13:27 | Pharmacy Report ---
Pharmacy Glycemic Short Note 2 - Date of Service June 07, 2023 - Glycemic Short BSG Results (Last 24 hours): 06/07/23 06/07/23 06/07/23 05:07 08:05 09:02 Glucose 123 H 146 H POC Glucose 146 H OUTPATIENT ANTIDIABETIC REGIMEN: * Insulin detemir 20 units QPM * Novolog 20 units AC ASSESSMENT: * 42 y/o M presented to ED today with weakness, hyperkalemia and needing emergent HD. He has history of ESRD getting HD 3x/week and also a Type1 diabetic known to glycemic service from previous admissions. * Patient likely took his basal insulin dose last night since BSG on admission was 123 mg/dl, although this is not confirmed on med reconciliation. * During recent admissions, basal dose of 20 units at HS provided good glycemic control. Continued with same dose. * Novolog ordered with loose parameters based on stress between 1 and 2. PLAN FOR INPATIENT GLYCEMIC CONTROL: * Hold outpatient oral diabetes medications * Basal insulin * Lantus 20 units SQ HS * Bolus insulin * NovoLog per scale ACHS or Q6hrs while NPO * Goal Range: Low 110 mg/dL - High 140 mg/dL * Correction Factor: 20 mg/dL/unit * Nutritional / Prandial insulin per carb ratio of 1 unit per 7 grams CHO consumed
[2023-06-07] MEDS: amLODIPine BESYLATE 5 MG TAB PO SCH (14:48)
[2023-06-07] MEDS: ATORVASTATIN 40 MG TAB PO SCH (14:48)
[2023-06-07] MEDS: APIXABAN 5 MG TABLET PO SCH (14:48)
[2023-06-07] MEDS: BUMETANIDE 1 MG TAB PO SCH (14:48)
[2023-06-07] MEDS: CALCIUM ACETATE 667 MG CAP/TAB PO SCH (14:48)
[2023-06-07] MEDS: GABAPENTIN 300 MG CAP PO SCH ×2 (14:49→14:51)
[2023-06-07] MEDS: NEPHROCAPS PO SCH (14:49)
[2023-06-07] MEDS: DULoxetine HCL 60 MG CAP PO SCH (14:49)
[2023-06-07] MEDS: LEVOTHYROXINE SODIUM 50 MCG TABLET PO SCH (14:49)
[2023-06-07] MEDS: INSULIN ASPART PER UNIT CHARGE SC SCH (14:49)
[2023-06-07] MEDS: CINACALCET HCL 30 MG TAB PO SCH (14:49)
[2023-06-07] MEDS: METOPROLOL SUCC 50MG EXT REL TAB PO SCH (14:49)
[2023-06-07] MEDS: PANTOprazole 40 MG TAB PO SCH (14:49)
[2023-06-07 16:19] LABS: BUN Creatinine Ratio 5.5 (10-20); Calcium 9.2 mg/dl (8.6-10.3); Creatinine Clr Calc Pharmacy 28.3 ml/min; Est GFR (African American) 19.1 ml/min; Est GFR (Non-African American) 16.5 ml/min; Potassium 4.9 mmol/L (3.5-5.1)
--- NOTE | 2023-06-07 16:37 | Discharge Summary ---
Discharge Summary Date of Service June 07, 2023 Notes For Next Care Provider Medication Changes From Visit None Principal Dx & Hospital Course #1 = Principal Diagnosis (1) Acute hyperkalemia: secondary to increased potassium in diet with fruits and also missing partial dialysis session earlier this week urgent dialysis was undertaken, discussed with Nephro checked BMP after dialysis as pt insists he will be leaving/going home after dialysis-K+ normal so stable for discharge continue home bumex advised low K+ diet (2) Diarrhea: ongoing for months had C. diff stool test as outpt which was not tested due to submitting a formed stool-pt was misinformed that his test was negative however, he does take Imodium which then causes constipation CT abd/pel no bowel issues noted suspect more likely from dietary changes with increased fiber in diet over last few months but he is at risk for C. diff given antibiotic use for wounds order stool BioFire and C. diff for here if can given sample but he did not move his bowels throughout the day he was here f/u with PCP (3) Venous ulcers of both lower extremities: continue outpt wound care, seems to be healing (4) Anxiety: continue home meds (5) CHF (congestive heart failure): HFpEF volume managed with HD continue bumex (6) ESRD on dialysis: urgent dialysis here completed consult Nephrology appreciated (7) Hypertension: BPs controlled continue home meds (8) Hypothyroidism: TSH 4.9 in 10/2022 continue home LT4 and f/u PCP (9) Atrial fibrillation: paroxysmal, in sinus rhythm here continue ELiquis, metoprolol monitor on tele-remained in NSR (10) Uncontrolled type 1 diabetes mellitus with kidney complication, with long- term current use of insulin: continue insulin, Pharmacy managing here uncontrolled needs close outpt f/u (11) Diabetic peripheral neuropathy: continue gabapentin at home doses-dose is higher than recommended for renal dosing but apparently he has not tolerated dose reduction in the past Plan Dispo-discharge to home Discharge Exam Constitutional WD/WN, vitals as above + obese Neck trachea midline, no thyromegaly Respiratory normal respiratory effort, lungs clear to auscultation Cardiovascular Rate/Rhythm: regular rate and regular rhythm Heart Sounds: no murmur Extremities: + edema (2+ pitting edema,wound dressings in place, kerlix) Gastrointestinal (Abdomen) normal bowel sounds, soft, nontender, no hepatosplenomegaly Musculoskeletal Extremities: no cyanosis and no clubbing Neurologic moves all extremities and awake; no focal motor deficits Psychiatric A+Ox3, euthymic affect Updated Medication List Medication Instructions Recorded Confirmed Type OneTouch Delica Lancets 33 gauge #400 ea 10/16/19 06/18/23 Rx (lancets) pen needle, diabetic 29 gauge x #400 ea 01/25/21 06/18/23 Rx 1/2" (Comfort EZ Pen [place]) pantoprazole 40 mg tablet,delayed 40 mg PO QAM #90 tabs 05/25/22 06/21/23 Rx release (Protonix) insulin aspart U-100 100 unit/mL 20 unit subcut TID 12/31/22 06/21/23 History (3 mL) subcutaneous pen lancets 33 gauge (OneTouch Delica #400 ea 01/28/23 06/18/23 Rx Plus Lancet) acetone (urine) test (Ketostix 01/29/23 06/18/23 History strips) cinacalcet 60 mg tablet 60 mg PO DAILY #30 tabs 02/15/23 06/21/23 Rx atorvastatin 80 mg tablet (Lipitor) 80 mg PO DAILY #90 tabs 03/05/23 06/21/23 Rx apixaban 5 mg tablet (Eliquis) 5 mg PO BID 30 days #180 tabs 03/20/23 06/21/23 Rx blood-glucose meter,continuous #1 ea 03/20/23 06/18/23 Rx (Dexcom G7 [employer] Engineer) insulin detemir U-100 100 unit/mL 20 unit subcut PM 03/20/23 06/21/23 History (3 mL) subcutaneous pen amlodipine 10 mg tablet 10 mg PO DAILY #90 tabs 04/03/23 06/21/23 Rx blood sugar diagnostic (OneTouch #400 ea 05/21/23 06/18/23 Rx Verio test strips) blood-glucose meter (OneTouch #1 ea 05/21/23 06/18/23 Rx Verio Flex Meter) blood-glucose sensor (Dexcom G7 #3 ea 05/21/23 06/18/23 Rx Sensor device) metoprolol succinate 50 mg 50 mg PO BID #180 tabs 05/21/23 06/21/23 Rx tablet,extended release 24 hr tramadol 50 mg tablet 50 mg PO Q6H PRN pain #15 tabs 05/21/23 06/21/23 Rx ammonium lactate 12 % topical cream 1 applic topical DAILY PRN Dry Skin 06/07/23 06/21/23 History bumetanide 2 mg tablet 4 mg (2 x 2 mg) PO BID #90 tabs 06/14/23 06/21/23 Rx duloxetine 60 mg capsule,delayed 60 mg PO QAM #90 caps 06/14/23 06/21/23 Rx release (Cymbalta) gabapentin 300 mg capsule 600 mg (2 x 300 mg) PO BID 30 days 06/14/23 06/21/23 Rx #120 caps levothyroxine 75 mcg tablet 75 mcg PO DAILY #90 tabs 06/18/23 06/21/23 Rx dicyclomine 10 mg capsule 10 mg PO QID PRN abdominal pain 06/21/23 Rx #20 caps Hospital Stay Data Consultations 06/07/23 07:11 ED Decision to Admit Stat 06/07/23 09:55 Consult Nephrology Routine Diagnostic Imagining Performed 06/07/23 04:44 CT abd pelvis wo con Stat Pending Results Patient Have Any Pending Studies at Discharge: No Discharge Instructions Given to Patient (Per Discharging Provider) Please try to stick with a low potassium diet at home. Follow up for your usual dialysis session on Saturday. For your diarrhea, please follow up with your PCP. Total Time Total Time Spent Total Time Spent (In Minutes): 35 min Coding Level of Care Code INP/OBS EV SAME DAY LV 3,85MIN Diagnoses Acute hyperkalemia E87.5 Diarrhea R19.7 Diarrhea type: unspecified type Venous ulcers of both lower extremities I83.019; I83.029; L97.919; L97.929 Anxiety F41.9 CHF (congestive heart failure) I50.9 ESRD on dialysis N18.6; Z99.2 Hypertension I10 Hypertension type: unspecified Hypothyroidism, unspecified type E03.9 Hypothyroidism type: unspecified Atrial fibrillation I48.91 Uncontrolled type 1 diabetes mellitus with kidney complication, with long-term current use of insulin E10.29; E10.65 Diabetic peripheral neuropathy E11.42
[2023-06-07] MEDS ORDERED: LANTUS PER UNIT CHARGE SQ SCH (21:00)
== END 2023-06-07 17:52 | disposition home or self-care (01) ==
LOC: SUATTDRO → ED 04:35 → INTOOBSV 07:40 → EDINP 07:40 → 2E 09:56

== ENCOUNTER 2023-07-09 07:27 | Observation (INO) ==
--- NOTE | 2023-07-09 08:31 | Emergency Department Note ---
Impression & Plan Acute hyperkalemia, Anemia, Acute leg pain ED Provider Note NAME: VIJAYA HAMILTON AGE: 42 SEX: M : 1980 ARRIVES VIA: Ambulance INFORMANT: Patient ED PROVIDER(S): Talib Murray DO CHIEF COMPLAINT: leg and chest pain HPI: Patient is a 42-year-old male with a past medical history of anxiety, end- stage renal disease on dialysis Saturday with last course yesterday, hypertension, CHF, diabetic neuropathy, who presents to the ER for bilateral leg pain which has been getting worse for months. He notes has had this for years and is his neuropathy. He notes the pain is getting worse. His told nursing staff that he stopped taking his Cymbalta and gabapentin but relays to myself that he thought about stopping it. He admits to a couple minutes worth of midsternal chest pain that started this morning around 6 AM which she describes as feeling his heart race. He has a history of A-fib and felt like it was that. He denies any actual pain pressure or heaviness but rather felt his heart racing. No dysuria, urgency, or frequency. No shortness of breath. No arm pain. No jaw pain. ADDITIONAL HISTORY OBTAINED: Per HPI Chronic Medical/Social Conditions Affecting Care: Per HPI PAST MEDICAL HISTORY:See Below PAST SURGICAL HISTORY:See Below FAMILY HISTORY:See Below SOCIAL HISTORY:See Below HOME MEDICATIONS:See Below ALLERGIES:See Below VITALS:See Below PHYSICAL EXAMINATION: GENERAL: Sitting up in bed, alert, well appearing, well nourished, no distress, non-toxic EYE EXAM: normal conjunctiva. OROPHARYNX: no exudate, no erythema, lips, buccal mucosa, and tongue normal and mucous membranes are moist NECK: supple, no nuchal rigidity, no adenopathy, non-tender LUNGS: Clear to auscultation. Normal chest wall mechanics HEART: no murmurs, S1 normal and S2 normal ABDOMEN: abdomen soft, non-tender, normo-active bowel sounds, no masses, no rebound or guarding. BACK: Back is symmetrical on inspection and there is no deformity, no midline tenderness, no CVA tenderness. SKIN: no rashes and no bruising UPPER EXTREMITIES: Positive thrill and bruit in left upper extremity fistula LOWER EXTREMITIES: No pitting edema. Calves are equal bilaterally NEURO EXAM: Normal sensorium, cranial nerves II-XII grossly intact, normal speech, no gross weakness of arms, no gross weakness of legs. MEDICAL DECISION MAKING: Patient is a 42-year-old dialysis dependent male who presents the ER for bilateral leg pain which feels like his typical chronic neuropathy. He did have some chest pain. IV was established blood work is obtained. Labs show mild leukopenia. Mild anemia 11. Mild thrombocytopenia at 127. There is a hyperkalemia at 6.3. He was given IV calcium gluconate, insulin and dextrose following reviewing the EKG which showed mild peaked T waves. he was monitored closely I discussed with nephrology and they took him emergently to dialysis. LFTs bilirubin were unremarkable. Troponin was negative. Lipase unremarkable. Did discuss with the hospitalist patient was admitted for further workup. Consults/Care Managements Discussions: Per [facility] Triage Nursing notes reviewed. Limited review of prior medical records performed Vital Signs: reviewed and remarkable for HTN Differential diagnosis: Cardiac ischemia, aortic dissection, pulmonary embolism, pneumothorax, pneumonia, pericarditis, myocarditis, esophageal rupture, GERD, cholecystitis, pancreatitis, musculoskeletal, as well as other pathologies. ER treatment provided: See below Diagnostics interpreted by me include EKG and cardiac monitoring as listed below: -Cardiac Monitoring: An order was placed for continuous cardiac monitoring. The monitor shows a rate of 82 with sinus rhythm. -ECG: Sinus rhythm rate 84 Normal axis No PVCs QTc 441 -Laboratory studies:Interpreted by me as stated above in MDM and shown below. Imaging studies: Xrays: As interpreted by me: Portable AP upright 1 view the chest shows no focal infiltrate CTs show: none Procedures:none Critical Care: I have personally spent 31 minutes of critical care time in the direct management of this patient. This includes bedside care, interpretation of diagnostic studies, and testing, discussion with consultants, patient, and family members, and other required patient management activities. This 31 minutes is in excess of all separately billable procedures. Past Med/Surg History Medical History (Updated 07/09/23 @ 15:02 by Talib Murray DO) Anemia due to chronic kidney disease Acute hyperglycemia Atrial fibrillation with rapid ventricular response Renal failure History of COVID-19 DX'D [facility] 04/28/21 COUGH-HOSPITALIZED X 1 DAY-RECOVERED AT HOME-RESOLVED Hyperosmolar hyperglycemic state (HHS) ESRD (end stage renal disease) Thrombosis of arteriovenous dialysis fistula (~02/15/20) Erectile dysfunction GERD (gastroesophageal reflux disease) Well controlled and stable ESRD (end stage renal disease) requiring hemodialysis. MWF at [facility]. Diabetic retinopathy Hypertension Hypothyroidism Diabetic peripheral neuropathy associated with type 1 diabetes mellitus Type 1 diabetes Depression Chronic venous insufficiency H/O febrile seizure as a child (every year until he was 11 years old) no problems since. High cholesterol Surgical History History of esophagogastroduodenoscopy (EGD) H/O detached retina repair S/P arteriovenous (AV) fistula creation left side, unable to use Family History Mother Diabetes Coronary heart disease Hypertension Father Coronary heart disease Hypertension Brother Coronary heart disease Kidney disease Uncle Colorectal cancer Grandmother Diabetes Aunt Diabetes Unknown Dyslipidemia Grandfather (Maternal) Diabetes Other Cancer No family history of adverse response to anesthesia Social History Smoking Status: Never smoker Second Hand Exposure: No; Do You Dip or Chew Tobacco: No; Hx Alcohol Use: No Hx Substance Use: No Preferred Language: Romanian Communication Ability: Effective Visual Impairment: No Limitations Hearing Ability: Normal Extrusion 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: No Beliefs That Will Affect Care: None marital status: Single Current Living Situation: Alone Current Living Situation Comment: Brother 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" How many Children do You have: 0 Feels Safe at Home: Yes Diet: regular Dental Care, Regularly: No Physical Activity Frequency: Does not Exercise Seatbelt Use: always Sunscreen Use: No Assistive Devices: Cane Allergies Allergies Allergy/AdvReac Type Severity Reaction Status Date / Time lisinopril AdvReac Intermediate COUGH Verified 06/21/23 01:03 Home Meds Home Medications Medication Instructions Recorded Confirmed insulin aspart U-100 100 unit/mL 20 unit subcut TID 12/31/22 07/09/23 (3 mL) subcutaneous pen acetone (urine) test (Ketostix 01/29/23 06/18/23 strips) insulin detemir U-100 100 unit/mL 20 unit subcut PM 03/20/23 07/09/23 (3 mL) subcutaneous pen ammonium lactate 12 % topical cream 1 applic topical DAILY PRN Dry Skin 06/07/23 07/09/23 Previous Rx's Medication Instructions Recorded OneTouch Delica Lancets 33 gauge #400 ea 10/16/19 (lancets) pen needle, diabetic 29 gauge x #400 ea 01/25/21 1/2" (Comfort EZ Pen [place]) pantoprazole 40 mg tablet,delayed 40 mg PO QAM #90 tabs 05/25/22 release (Protonix) lancets 33 gauge (OneTouch Delica #400 ea 01/28/23 Plus Lancet) cinacalcet 60 mg tablet 60 mg PO DAILY #30 tabs 02/15/23 atorvastatin 80 mg tablet (Lipitor) 80 mg PO DAILY #90 tabs 03/05/23 apixaban 5 mg tablet (Eliquis) 5 mg PO BID 30 days #180 tabs 03/20/23 blood-glucose meter,continuous #1 ea 03/20/23 (Dexcom G7 Coat Padder) amlodipine 10 mg tablet 10 mg PO DAILY #90 tabs 04/03/23 blood sugar diagnostic ([facility] ea 05/21/23 Verio test strips) blood-glucose meter ([facility]a 05/21/23 Verio Flex Meter) blood-glucose sensor (Dexcom G7 #3 ea 05/21/23 Sensor device) metoprolol succinate 50 mg 50 mg PO BID #180 tabs 05/21/23 tablet,extended release 24 hr tramadol 50 mg tablet 50 mg PO Q6H PRN pain #15 tabs 05/21/23 bumetanide 2 mg tablet 4 mg (2 x 2 mg) PO BID #90 tabs 06/14/23 duloxetine 60 mg capsule,delayed 60 mg PO QAM #90 caps 06/14/23 release (Cymbalta) gabapentin 300 mg capsule 600 mg (2 x 300 mg) PO BID 30 days 06/14/23 #120 caps levothyroxine 75 mcg tablet 75 mcg PO DAILY #90 tabs 06/18/23 dicyclomine 10 mg capsule 10 mg PO QID PRN abdominal pain 06/21/23 #20 caps Results & Data (ED) Vital Signs Vital Signs - 24 hr 07/09/23 07:37 07/09/23 08:13 07/09/23 08:18 Temperature 36.6 C Temperature Source Oral Pulse Rate 84 80 85 Pulse Rhythm Regular Regular Pulse Strength Normal Respiratory Rate 20 16 Respiratory Effort / Characteristics Non-Labored Respiratory Depth Normal Blood Pressure 185/97 H Blood Pressure Mean 126 Pulse Oximetry 96 96 Oxygen Delivery Method Room Air Room Air Sepsis Recent Fever Within 48 Hours No Sepsis New/Unexplained Change in Mental Status N/A Sepsis Action Taken by Nursing No Action Required 07/09/23 10:23 07/09/23 10:29 Temperature Temperature Source Pulse Rate 82 82 Pulse Rhythm Pulse Strength Respiratory Rate 16 20 Respiratory Effort / Characteristics Respiratory Depth Blood Pressure 192/103 H Blood Pressure Mean 132 Pulse Oximetry 96 98 Oxygen Delivery Method Nasal Cannula Room Air Sepsis Recent Fever Within 48 Hours Sepsis New/Unexplained Change in Mental Status Sepsis Action Taken by Nursing Laboratory Data 07/09/23 08:25 07/09/23 08:25 Lab Results 07/09/23 Range/Units 08:25 WBC 4.46 L (4.8-10.8) K/ul RBC 3.92 L (4.70-6.10) M/uL Hgb 11.1 L (14.0-18.0) g/dl Hct 33.8 L (42.0-52.0) % MCV 86.2 (80.0-100.0) fL MCH 28.3 (25.0-34.0) pg MCHC 32.8 (32.0-36.0) g/dL RDW Std Deviation 49.5 H (36.4-46.3) fL RDW Coeff of Yuki 15.6 H (11.5-14.5) % Plt Count 127 L (130-400) K/uL MPV 10.9 (9.4-12.4) fL Immature Gran % (Auto) 0.2 % Neut % (Auto) 67.8 % Lymph % (Auto) 19.3 % [place] % (Auto) 9.2 % Eos % (Auto) 3.1 % Baso % (Auto) 0.4 % Neut # (Auto) 3.02 (1.40-6.50) K/uL Lymph # (Auto) 0.86 L (1.20-3.40) K/uL [place] # (Auto) 0.41 (0.11-0.59) K/uL Eos # (Auto) 0.14 (0.00-0.50) K/uL Baso # (Auto) 0.02 (0.00-0.20) K/uL Immature Gran # (Auto) 0.01 (0.01-0.20) K/uL PT 11.6 (9.0-12.0) Seconds INR 1.1 (0.9-1.1) Sodium 132 L (136-145) mmol/L Potassium 6.3 H* (3.5-5.1) mmol/L Chloride 89 L (98-107) mmol/L Carbon Dioxide 31 (21-32) mmol/L Anion Gap 12 H (3-11) BUN 59 H (6-23) mg/dl Creatinine 7.76 H* (0.6-1.4) mg/dl Est Cr Clr Drug Dosing 15.2 ml/min Est GFR ( Amer) 9.1 ml/min Est GFR (Non-Af Amer) 7.8 ml/min BUN/Creatinine Ratio 7.6 L (10-20) Glucose 227 H (70-99(Fasting)) mg/dl Calcium 10.5 H (8.6-10.3) mg/dl Total Bilirubin 0.8 (0.2-1.0) mg/dl AST 36 (13-39) U/L ALT 43 (7-52) U/L Alkaline Phosphatase 267 H (34-104) U/L Troponin I High Sens 14.9 (0-20) pg/ml Total Protein 8.6 H (6.0-8.3) gm/dl Albumin 4.3 (3.4-5.0) gm/dl Globulin 4.3 H (2.5-4.0) gm/dl Albumin/Globulin Ratio 1.0 (0.9-2) Lipase 51 (11-82) U/L Administered Medications Acetaminophen (Acetaminophen 325 Mg Tab) 650 mg PO Q6 CHASE Stop: 08/08/23 10:59 Last Admin: 07/09/23 11:11 Dose: 650 mg Documented By: DELISA Insulin Aspart (Insulin Aspart Per Unit Charge) 0 units SC ACHS CHASE Stop: 08/08/23 11:29 Last Admin: 07/09/23 11:12 Dose: 5 units Documented By: DELISA Co-signed By: CAW Discontinued Medications Dextrose (Dextrose 50% 50 Ml Syringe) 50 ml IV NOW ONE Stop: 07/09/23 09:41 Last Admin: 07/09/23 10:03 Dose: 50 ml Documented By: DELISA Hydromorphone HCl (Hydromorphone Inj 0.5 Mg/0.5 Ml Syr) 0.5 mg IV NOW STA Stop: 07/09/23 10:48 Last Admin: 07/09/23 11:12 Dose: 0.5 mg Documented By: DELISA Calcium Gluconate () 1,000 mg in 60 mls @ 240 mls/hr IV NOW STA Stop: 07/09/23 09:54 Last Infusion: 07/09/23 10:30 Dose: Infused Documented By: Admin: 07/09/23 10:03 Dose: 240 mls/hr Documented By: DELISA Insulin Human Regular (Novolin-R Insulin Per Unit Charge) 10 units IV NOW STA Stop: 07/09/23 09:41 Last Admin: 07/09/23 10:03 Dose: 10 units Documented By: DELISA Co-signed By: HAYDEN Imaging Data Radiologist's Impression: Chest X-Ray 07/09/23 07:57 XR chest 1V portable CLINICAL HISTORY: Chest pain, nonspecific TECHNIQUE: Single frontal radiograph of the chest was obtained. Comparison: Comparison is made to chest radiograph 03/10/2023 FINDINGS: No lines and tubes are seen. Cardiomegaly is noted. Prominence and cephalization of the vasculature is seen. No evidence of pleural effusion or pneumothorax. IMPRESSION: Cardiomegaly and mild pulmonary edema. ACT 112: Negative or not required by law. Electronically signed by: Lee Millan M.D. 07/09/2023 8:42 AM Discharge Plan Visit Data Chief Complaint: Leg Injury/Pain Stated Complaint: CHEST PAIN, LEG AND FEET PAIN ED Provider: Talib Murray Discharge Problem: Acute hyperkalemia, Anemia, Acute leg pain Discharge Problem: Anemia Qualifiers: Anemia type: unspecified type Qualified Code(s): D64.9 - Anemia, unspecified Acute leg pain Qualifiers: Laterality: unspecified laterality Qualified Code(s): M79.606 - Pain in leg, unspecified
--- NOTE | 2023-07-09 08:43 | XRay Report ---
XR chest 1V portable CLINICAL HISTORY: Chest pain, nonspecific TECHNIQUE: Single frontal radiograph of the chest was obtained. Comparison: Comparison is made to chest radiograph 03/10/2023 FINDINGS: No lines and tubes are seen. Cardiomegaly is noted. Prominence and cephalization of the vasculature i s seen. No evidence of pleural effusion or pneumothorax. IMPRESSION: Cardiomegaly and mild pulmonary edema. ACT 112: Negative or not required by law. Electronically signed by: Lee Millan M.D. 07/09/2023 8:42 AM
[2023-07-09 08:47] LABS: Basophils # (auto) 0.02 K/uL (0.00-0.20); Basophils % (auto) 0.4 %; Eosinophils # (auto) 0.14 K/uL (0.00-0.50); Eosinophils % (auto) 3.1 %; Hematocrit (blood only) 33.8 % (42.0-52.0); Hemoglobin 11.1 g/dl (14.0-18.0); Immature Granulocytes # (auto) 0.01 K/uL (0.01-0.20); Immature Granulocytes % (auto) 0.2 %; Lymphocytes # (auto) 0.86 K/uL (1.20-3.40); Lymphocytes % (auto) 19.3 %; Mean Corpuscular Hemoglobin 28.3 pg (25.0-34.0); Mean Corpuscular Hgb Conc 32.8 g/dL (32.0-36.0); Mean Corpuscular Volume 86.2 fL (80.0-100.0); Mean Platelet Volume 10.9 fL (9.4-12.4); Monocytes # (auto) 0.41 K/uL (0.11-0.59); Monocytes % (auto) 9.2 %; Neutrophils # (auto) 3.02 K/uL (1.40-6.50); Neutrophils % (auto) 67.8 %; Platelet Count 127 K/uL (130-400); RDW Coefficient of Variation 15.6 % (11.5-14.5); RDW Standard Deviation 49.5 fL (36.4-46.3); Red Blood Count 3.92 M/uL (4.70-6.10); White Blood Count 4.46 K/ul (4.8-10.8)
[2023-07-09 09:11] LABS: INR 1.1 (0.9-1.1); Prothrombin Time 11.6 Seconds (9.0-12.0)
[2023-07-09 09:13] LABS: Albumin Level 4.3 gm/dl (3.4-5.0); BUN Creatinine Ratio 7.6 (10-20); Bilirubin,Total 0.8 mg/dl (0.2-1.0); Calcium 10.5 mg/dl (8.6-10.3); Creatinine Clr Calc Pharmacy 15.2 ml/min; Est GFR (African American) 9.1 ml/min; Est GFR (Non-African American) 7.8 ml/min; Globulin 4.3 gm/dl (2.5-4.0); Potassium 6.3 mmol/L (3.5-5.1); Total Protein 8.6 gm/dl (6.0-8.3); Troponin I High Sensitivity 14.9 pg/ml (0-20)
[2023-07-09] MEDS: NovoLIN-R INSULIN PER UNIT CHARGE IV STA (10:03)
[2023-07-09] MEDS: DEXTROSE 50% 50 ML SYRINGE IV ONE (10:03)
[2023-07-09] MEDS: CALCIUM GLUCONATE 1,000 MG/60 ML BAG IV STA (10:03)
--- NOTE | 2023-07-09 10:32 | Nephrology Consultation ---
Date of Consultation July 09, 2023 Assessment & Plan (1) ESRD on dialysis: (2) Hyperkalemia: (3) Hypertension: (4) Hyponatremia: (5) Anemia due to chronic kidney disease: Plan End-stage renal disease on hemodialysis presented with CP, palpitation and neuropathic pain on b/l LE. K was 6.3. Has functioning AV fistula. Had HD yesterday, volume status acceptable, close to estimated dry weight -- Will do 3 hours hemodialysis today for hyperkalemia with history of A-fib wi th RVR, aim for UF 1 L as he is close to his dry weight. -- fluid restriction to less than 1 L per day, low-potassium diet, left arm nephrology precaution. --Continue on Sensipar -- Dose medications for eGFR less than 10, recommend decreasing gabapentin to maximum 300 mg daily. -- If clinically otherwise stable, okay to be discharged after dialysis, next dialysis will be tomorrow at the outpatient dialysis unit. Will follow Thank you for allowing me to participate in your patient's care. It was a pleasure to see Juan Jose History of Present Illness Reason for Consultation: ESKD, Hyperkalemia History of Present Illness Ventura Snell is a 42-year-old male with past medical history significant for end-stage kidney disease on hemodialysis, hypertension, diabetes, GERD, presented to the hospital with worsening neuropathic pain of bilateral lower extremity as well as palpitation and a brief period of chest pain. Nephrology consult was requested to provide emergency dialysis for correction of hyperkalemia. electronic medical records were reviewed in detail during kiel mendez's visit. Juan Jose presented to ER this morning with worsening bilateral lower extremity pain and an episode of chest pain. He reports he has been having neuropathic pain for years but which has worsened recently. He had a brief episode of chest pain which lasted for few minutes, currently resolved. Denies shortness of breath, cough, fever or chills. Blood pressure is elevated but his heart rate was 75 to 80s. Chest x-ray, EKG was otherwise unremarkable and troponin was normal. in ER hemoglobin was acceptable but noted to have multiple electrolyte abnormality potassium was 6.3, sodium 132, calcium 10.5. Hemoglobin was 11.1. He had dialysis yesterday, reports 5 L of UF and left dialysis close to his dry weight which has been 114.5 kg. as of recent. Juan Jose has end-stage renal disease secondary to diabetic nephropathy, has been on hemodialysis Saturday, Saturday, Saturday at [facility]. He had full dialysis session yesterday and had 5 L of UF and discharge is close to his dry weight. His estimated dry weight is 114.5 kg as he has been eating healthy and trying to lose weight to be eligible for kidney transplant. He generally has tendency for high weight gain in between dialysis. He does not make much urine anymore, has been taking Bumex 4 mg twice a day. He reports chronic diarrhea about 5-6 times per day, during last admission had extensive workup, unremarkable, usually takes Imodium. A fistula has been some issues and he is scheduled for fistulogram on July 25. He reports overall feeling better, chest pain resolved, leg pain slightly imp roved. Allergies Allergy/AdvReac Type Severity Reaction Status Date / Time lisinopril AdvReac Intermediate COUGH Verified 06/21/23 01:03 Home Medications Medication Instructions Recorded Confirmed Type OneTouch Delica Lancets 33 gauge #400 ea 10/16/19 06/18/23 Rx (lancets) pen needle, diabetic 29 gauge x #400 ea 01/25/21 06/18/23 Rx 1/2" (Comfort EZ Pen [place]) pantoprazole 40 mg tablet,delayed 40 mg PO QAM #90 tabs 05/25/22 06/21/23 Rx release (Protonix) insulin aspart U-100 100 unit/mL 20 unit subcut TID 12/31/22 06/21/23 History (3 mL) subcutaneous pen lancets 33 gauge (OneTouch Delica #400 ea 01/28/23 06/18/23 Rx Plus Lancet) acetone (urine) test (Ketostix 01/29/23 06/18/23 History strips) cinacalcet 60 mg tablet 60 mg PO DAILY #30 tabs 02/15/23 06/21/23 Rx atorvastatin 80 mg tablet (Lipitor) 80 mg PO DAILY #90 tabs 03/05/23 06/21/23 Rx apixaban 5 mg tablet (Eliquis) 5 mg PO BID 30 days #180 tabs 03/20/23 06/21/23 Rx blood-glucose meter,continuous #1 ea 03/20/23 06/18/23 Rx (Dexcom G7 Director Of Emergency Nursing) insulin detemir U-100 100 unit/mL 20 unit subcut PM 03/20/23 06/21/23 History (3 mL) subcutaneous pen amlodipine 10 mg tablet 10 mg PO DAILY #90 tabs 04/03/23 06/21/23 Rx blood sugar diagnostic (OneTouch #400 ea 05/21/23 06/18/23 Rx Verio test strips) blood-glucose meter (OneTouch #1 ea 05/21/23 06/18/23 Rx Verio Flex Meter) blood-glucose sensor (Dexcom G7 #3 ea 05/21/23 06/18/23 Rx Sensor device) metoprolol succinate 50 mg 50 mg PO BID #180 tabs 05/21/23 06/21/23 Rx tablet,extended release 24 hr tramadol 50 mg tablet 50 mg PO Q6H PRN pain #15 tabs 05/21/23 06/21/23 Rx ammonium lactate 12 % topical cream 1 applic topical DAILY PRN Dry Skin 06/07/23 06/21/23 History bumetanide 2 mg tablet 4 mg (2 x 2 mg) PO BID #90 tabs 06/14/23 06/21/23 Rx duloxetine 60 mg capsule,delayed 60 mg PO QAM #90 caps 06/14/23 06/21/23 Rx release (Cymbalta) gabapentin 300 mg capsule 600 mg (2 x 300 mg) PO BID 30 days 06/14/23 06/21/23 Rx #120 caps levothyroxine 75 mcg tablet 75 mcg PO DAILY #90 tabs 06/18/23 06/21/23 Rx dicyclomine 10 mg capsule 10 mg PO QID PRN abdominal pain 06/21/23 Rx #20 caps Patient History Medical History (Updated 07/09/23 @ 10:31 by Adrianne Kennedy MD) Anemia due to chronic kidney disease Acute hyperglycemia Atrial fibrillation with rapid ventricular response Renal failure History of COVID-[address] [facility] 04/28/21 COUGH-HOSPITALIZED X 1 DAY-RECOVERED AT HOME-RESOLVED Hyperosmolar hyperglycemic state (HHS) ESRD (end stage renal disease) Thrombosis of arteriovenous dialysis fistula (~02/15/20) Erectile dysfunction GERD (gastroesophageal reflux disease) Well controlled and stable ESRD (end stage renal disease) requiring hemodialysis. MWF at [facility]. Diabetic retinopathy Hypertension Hypothyroidism Diabetic peripheral neuropathy associated with type 1 diabetes mellitus Type 1 diabetes Depression Chronic venous insufficiency H/O febrile seizure as a child (every year until he was 11 years old) no problems since. High cholesterol Surgical History History of esophagogastroduodenoscopy (EGD) H/O detached retina repair S/P arteriovenous (AV) fistula creation left side, unable to use Family History Mother Diabetes Coronary heart disease Hypertension Father Coronary heart disease Hypertension Brother Coronary heart disease Kidney disease Uncle Colorectal cancer Grandmother Diabetes Aunt Diabetes Unknown Dyslipidemia Grandfather (Maternal) Diabetes Other Cancer No family history of adverse response to anesthesia Social History Smoking Status: Never smoker Second Hand Exposure: No; Do You Dip or Chew Tobacco: No; Hx Alcohol Use: No Hx Substance Use: No Preferred Language: Syriac Communication Ability: Effective Visual Impairment: No Limitations Hearing Ability: Normal Content Creation Manager Required: No Beliefs That Will Affect Care: None marital status: Single Current Living Situation: Alone Current Living Situation Comment: Brother 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 Physical Exam Constitutional: WD/WN, vitals as above no acute distress Eyes: + anicteric sclerae ENMT: Ears: no hearing impairment Neck: normal visual inspection Respiratory: normal respiratory effort; no respiratory distress and no cough Auscultation: lungs clear to auscultation bilaterally Cardiovascular: Rate/Rhythm: regular rate and regular rhythm Extremities: + edema and + AV fistula (left RC AVF with thrill and bruit, aneurysm.) Gastrointestinal (Abdomen): Inspection/Auscultation: abdomen normal to inspection Musculoskeletal: Extremities: extremities normal to inspection Skin: thick skin b/l leg Neurologic: no focal motor deficits and not confused Psychiatric: Orientation: alert and oriented x 3 Affect: euthymic affect Results & Data Vital Signs (Past 12 Hours) Vital Signs Temp Pulse Resp BP Pulse Ox O2 Del Method 07/09/23 10:29 82 20 192/103 H 98 Room Air 07/09/23 10:23 82 16 96 Nasal Cannula 07/09/23 08:18 85 07/09/23 08:13 80 16 96 Room Air 07/09/23 07:37 36.6 C 84 20 185/97 H 96 Room Air PG Care Time/CCT Total # of Minutes Spent Total Time Spent with Patient: Total time spent is greater than 50% in coordination of care (as documented) at patient's floor/unit and/or counseling patient: Coding Level of Care Code 51950 ER DEPT VISIT HIGH LVL 5 Diagnoses ESRD on dialysis N18.6; Z99.2 Hyperkalemia E87.5 Hypertension I10 Hyponatremia E87.1 Anemia due to chronic kidney disease N18.9; D63.1
[2023-07-09] MEDS ORDERED: DEXTROSE 50% 50 ML SYRINGE IV PRN (10:49)
[2023-07-09] MEDS ORDERED: GLUCOSE 40% GEL 15 GM TUBE PO PRN (10:49)
[2023-07-09] MEDS ORDERED: CARBOHYDRATES FOR HYPOGLYCEMIA PO PRN (10:49)
[2023-07-09] MEDS ORDERED: GLUCOSE 10 TAB/TUBE PO PRN (10:49)
[2023-07-09] MEDS ORDERED: PHARMACY GLYCEMIC MGMT CONSULT PRN (10:49)
[2023-07-09] MEDS ORDERED: GLUCAGON FOR INJ 1 MG VIAL SQ PRN (10:49)
--- NOTE | 2023-07-09 10:51 | History & Physical Report ---
Date of Service July 09, 2023 Assessment & Plan (1) Hyperkalemia: Plan: -Admit to med/tele on pulse oximetry -Currently stable and non-toxic appearing -Presented to the ED due to worsening BL LE peripheral neuropathy and insomnia -Noted to have a potassium of 6.3 on arrival -States he had a "nearly complete" HD session yesterday but was stopped approximately 20 minutes early due to worsening peripheral neuropathy -Was noted to have peaked T-waves on ECG today but otherwise is without acute ECG changes -Was medically treated in the ED with 10 units IV regular human insulin and 1gm IV calcium gluconate -Nephrology has been consulted, appreciate their assistance >Will go for HD session shortly -Continue to monitor on tele -Will repeat BMP, mag, Phos this evening after dialysis -Continue chronic renal medications -DMI/Renal dialysis diet with 1800 mL fluid restriction -Home Eliquis for DVT PPX -AM CBC, BMP, mag, Phos (2) Leg edema: Plan: -Due to his known ESRD on HD MWF and CHF -His amlodipine could also be contributing to his leg swelling -Will receive HD session shortly -Continue BID Bumetanide -Consider switching antihypertensives if amlodipine could be contributing to his leg swelling (3) Diabetic peripheral neuropathy associated with type 1 diabetes mellitus: Plan: -Patient states his DM LE neuropathy which has been causing insomnia -Patient states he has been taking his Cymbalta and Gabapentin as prescribed -States he was started on PRN tramadol by his PCP but he did not as for a refill when he ran out in April as he did not think that it was helping -I explained that his neuropathy is likely multifactorial including his DMI and chronic LE edema -Explained that we should continue his Cymbalta and Gabapentin -Would be hesitant to increase doses of Cymbalta and Gabapentin due to his renal function -Will hold PO tramadol on admission and use prn Dilaudid for severe pain until he receives dialysis to see if this helps his pain -Could resume home tramadol tomorrow -Will start q6h scheduled tylenol as well -Recommended he see his PCP on DC to adjust medications further (4) ESRD on dialysis: Plan: -Nephrology is consulted and following -Will receive HD session shortly -Avoid nephrotoxic agents -Will monitor repeat BMP, mag, phos this evening after dialysis -Continue chronic Renal medications -Monitor am renal function and electrolytes (5) Insomnia: Plan: -Patient states he has not slept well for the past 5 nights due to neuropathy -Will continue pain regimen per neuropathy plan -Start start HS melatonin tonight (6) Chest pain: Plan: -One episode of substernal chest pain which lasted "a few seconds" after waking this am -Patient states he has otherwise been chest pain free today -States it feels similar to his previous episodes of chronic chest pain -High sen trop is WNL, ECG without acute ST segment changes -Likely due to his mild pulm edema on CXR -Continue to monitor on tele and continue pain regimen per neuropathy plan -Dialysis session on admission should also help (7) Thrombocytopenia: Plan: -Platelets at 127 today -No signs of bleeding -LFT's are WNL -Likely due to his chronic anemia from CKD -Continue to trend CBC daily for now, if thrombocytopenia progresses can continue workup (8) Hypothyroidism: Plan: -Continue levothyroxine (9) Hypertension: Plan: -Will receive HD session shortly which will help with his current HTN -Continue am amlodipine (10) Atrial fibrillation: Plan: -Currently in NSR -Continue Eliquis and metoprolol Plan The patient was discussed with Dr. Saucedo at the time of the admission History of Present Illness Chief Complaint: Progressive BL LE neuropathy Primary Care Provider: Maki Peterson MD Ventura is a 42 yo male with a h/o ESRD on HD MWF, anxiety, HTN,DM type 1 with neuropathy, nephropathy, hypothyroidism, venous ulcers, and insomnia who presented to the [facility] ED on 07/09/23 via EMS for progressive BL LE neuropathy, insomnia, and one episode of chest pain. He was noted to be hypertensive at 185/97 but was otherwise stable in the ED. Labs were significant for a platelet count of 127, lymphocyte count of 0.86, Cr of 7.76, potassium of 6.3, sodium of 132, AG of 12 with bicarb WNL, calcium of 10.5, and high sen trop WNL. Chest xray was read as "Cardiomegaly and mild pulmonary edema.". The ED spoke with Nephrology who will be taking the patient for a session of HD shortly. Prior to admission the patient was given 1gm IV calcium gluconate, 10 units regular IV human insulin. At the time of the exam the patient was sitting on the side of his bed in no acute distress. He states that the reason he came to the ED this am was due to 5 days of insomnia from his chronic lower extremity neuropathy. He states that he had been taking Cymbalta, gabapentin, and prn tramadol but stopped taking the tramadol in April as he did not think it was helping. He states that he had one episode of mid anterior chest pain after getting up this am. This felt like his chronic, non-cardiac chest pain. It lasted "for a few seconds" then subsided on it's own. He is currently without chest pain at the time of the admission. He denies recent fever, chills, cough, hemoptysis, SOB, abd pain, nausea, vomiting, dysuria, hematuria, melena, and recent trauma. He states he did have all his am meds prior to calling EMS today. He is a full code. Please refer to Dr. Saucedo' attestation for any changes to the treatment plan Allergies Allergy/AdvReac Type Severity Reaction Status Date / Time lisinopril AdvReac Intermediate COUGH Verified 06/21/23 01:03 Home Medications Medication Instructions Recorded Confirmed Type OneTouch Delica Lancets 33 gauge #400 ea 10/16/19 06/18/23 Rx (lancets) pen needle, diabetic 29 gauge x #400 ea 01/25/21 06/18/23 Rx 1/2" (Comfort EZ Pen [place]) pantoprazole 40 mg tablet,delayed 40 mg PO QAM #90 tabs 05/25/22 07/09/23 Rx release (Protonix) insulin aspart U-100 100 unit/mL 20 unit subcut TID 12/31/22 07/09/23 History (3 mL) subcutaneous pen lancets 33 gauge (OneTouch Delica #400 ea 01/28/23 06/18/23 Rx Plus Lancet) acetone (urine) test (Ketostix 01/29/23 06/18/23 History strips) cinacalcet 60 mg tablet 60 mg PO DAILY #30 tabs 02/15/23 07/09/23 Rx atorvastatin 80 mg tablet (Lipitor) 80 mg PO DAILY #90 tabs 03/05/23 07/09/23 Rx apixaban 5 mg tablet (Eliquis) 5 mg PO BID 30 days #180 tabs 03/20/23 07/09/23 Rx blood-glucose meter,continuous #1 ea 03/20/23 06/18/23 Rx (Dexcom G7 [employer]er [employer] Form) insulin detemir U-100 100 unit/mL 20 unit subcut PM 03/20/23 07/09/23 History (3 mL) subcutaneous pen amlodipine 10 mg tablet 10 mg PO DAILY #90 tabs 04/03/23 07/09/23 Rx blood sugar diagnostic (OneTouch #400 ea 05/21/23 06/18/23 Rx Verio test strips) blood-glucose meter (OneTouch #1 ea 05/21/23 06/18/23 Rx Verio Flex Meter) blood-glucose sensor (Dexcom G7 #3 ea 05/21/23 06/18/23 Rx Sensor device) metoprolol succinate 50 mg 50 mg PO BID #180 tabs 05/21/23 07/09/23 Rx tablet,extended release 24 hr tramadol 50 mg tablet 50 mg PO Q6H PRN pain #15 tabs 05/21/23 07/09/23 Rx ammonium lactate 12 % topical cream 1 applic topical DAILY PRN Dry Skin 06/07/23 07/09/23 History bumetanide 2 mg tablet 4 mg (2 x 2 mg) PO BID #90 tabs 06/14/23 07/09/23 Rx duloxetine 60 mg capsule,delayed 60 mg PO QAM #90 caps 06/14/23 07/09/23 Rx release (Cymbalta) gabapentin 300 mg capsule 600 mg (2 x 300 mg) PO BID 30 days 06/14/23 07/09/23 Rx #120 caps levothyroxine 75 mcg tablet 75 mcg PO DAILY #90 tabs 06/18/23 07/09/23 Rx dicyclomine 10 mg capsule 10 mg PO QID PRN abdominal pain 06/21/23 07/09/23 Rx #20 caps Past Med/Surg History Medical History (Updated 07/09/23 @ 11:05 by Zachary Aguiar PA-C) Anemia due to chronic kidney disease Acute hyperglycemia Atrial fibrillation with rapid ventricular response Renal failure History of COVID-19 DX'D [facility] 04/28/21 COUGH-HOSPITALIZED X 1 DAY-RECOVERED AT HOME-RESOLVED Hyperosmolar hyperglycemic state (HHS) ESRD (end stage renal disease) Thrombosis of arteriovenous dialysis fistula (~02/15/20) Erectile dysfunction GERD (gastroesophageal reflux disease) Well controlled and stable ESRD (end stage renal disease) requiring hemodialysis. MWF at [facility]. Diabetic retinopathy Hypertension Hypothyroidism Diabetic peripheral neuropathy associated with type 1 diabetes mellitus Type 1 diabetes Depression Chronic venous insufficiency H/O febrile seizure as a child (every year until he was 11 years old) no problems since. High cholesterol Surgical History History of esophagogastroduodenoscopy (EGD) H/O detached retina repair S/P arteriovenous (AV) fistula creation left side, unable to use Family History Mother Diabetes Coronary heart disease Hypertension Father Coronary heart disease Hypertension Brother Coronary heart disease Kidney disease Uncle Colorectal cancer Grandmother Diabetes Aunt Diabetes Unknown Dyslipidemia Grandfather (Maternal) Diabetes Other Cancer No family history of adverse response to anesthesia Social History Smoking Status: Never smoker Second Hand Exposure: No; Do You Dip or Chew Tobacco: No; Hx Alcohol Use: No Hx Substance Use: No Preferred Language: Telugu Communication Ability: Effective Visual Impairment: No Limitations Hearing Ability: Normal Tarper Required: No Beliefs That Will Affect Care: None marital status: Single Current Living Situation: Alone Current Living Situation Comment: Brother 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" How many Children do You have: 0 Feels Safe at Home: Yes Diet: regular Dental Care, Regularly: No Physical Activity Frequency: Does not Exercise Seatbelt Use: always Sunscreen Use: No Assistive Devices: Cane Physical Exam Physical Exam: Physical Exam: General: In no acute distress, older than stated age, chronically ill appearing but non-toxic HEENT: Normocephalic, atraumatic, no scleral icterus, pupils around round, symmetrical, and reactive to light, moist mucus membranes, trachea midline, no thyromegaly Chest/Pulm: No respiratory distress, symmetrical chest expansion, scattered crackles in the BL lower and mid lung blake, otherwise CTA Cardiac: RRR, 3/6 systolic murur noted Abdomen: Negative for ascites and bruising, normoactive bowel sounds, soft, non-tender to palpation throughout Musculoskeletal: Symmetrical and without signs of acute trauma, upper and lower extremities with full ROM, no atrophy, spasticity, or flaccidity Extremities: AV fistual located in the left forearm with intact thrill, BL LE are firm due to significant, non-pitting edema Skin: Signs of chronic venous insufficiency noted in the BL LE's Neuro: Alert and oriented to person, place, month, year, and president, no focal defects, no tremors noted Psych: No acute distress, calm and cooperative during the exam Results & Data Results & Data Vital Signs (Past 12 Hours) Vital Signs Temp Pulse Resp BP Pulse Ox O2 Del Method 07/09/23 10:29 82 20 192/103 H 98 Room Air 07/09/23 10:23 82 16 96 Nasal Cannula 07/09/23 08:18 85 07/09/23 08:13 80 16 96 Room Air 07/09/23 07:37 36.6 C 84 20 185/97 H 96 Room Air Laboratory Results Abnormal lab results 07/09/23 Range/Units 08:25 WBC 4.46 L (4.8-10.8) K/ul RBC 3.92 L (4.70-6.10) M/uL Hgb 11.1 L (14.0-18.0) g/dl Hct 33.8 L (42.0-52.0) % RDW Std Deviation 49.5 H (36.4-46.3) fL RDW Coeff of Yuki 15.6 H (11.5-14.5) % Plt Count 127 L (130-400) K/uL Lymph # (Auto) 0.86 L (1.20-3.40) K/uL Sodium 132 L (136-145) mmol/L Potassium 6.3 H* (3.5-5.1) mmol/L Chloride 89 L (98-107) mmol/L Anion Gap 12 H (3-11) BUN 59 H (6-23) mg/dl Creatinine 7.76 H* (0.6-1.4) mg/dl BUN/Creatinine Ratio 7.6 L (10-20) Glucose 227 H (70-99(Fasting)) mg/dl Calcium 10.5 H (8.6-10.3) mg/dl Alkaline Phosphatase 267 H (34-104) U/L Total Protein 8.6 H (6.0-8.3) gm/dl Globulin 4.3 H (2.5-4.0) gm/dl Diagnostic Findings Chest X-Ray 07/09/23 07:57 XR chest 1V portable CLINICAL HISTORY: Chest pain, nonspecific TECHNIQUE: Single frontal radiograph of the chest was obtained. Comparison: Comparison is made to chest radiograph 03/10/2023 FINDINGS: No lines and tubes are seen. Cardiomegaly is noted. Prominence and cephalization of the vasculature is seen. No evidence of pleural effusion or pneumothorax. IMPRESSION: Cardiomegaly and mild pulmonary edema. ACT 112: Negative or not required by law. Electronically signed by: Lee Millan M.D. 07/09/2023 8:42 AM ECG Additional Comments: Normal sinus rhythm Normal ECG When compared with ECG of 07-JUN-2023 05:54, No significant change was found Code Status & VTE Plan Code Status Full code VTE Prophylaxis Plan VTE Prophylaxis will be ordered: Yes Supervising Physician Co-Signing Physician Notes I have personally seen, evaluated and examined the patient. I have also personally discussed the management of the patient with the resident physician/MICHAEL and I agree with the exam findings documented in the history and physical examination and the documented assessment and plan unless otherwise stated below. Brief Exam: In General: This is a 42-year-old male who appears older than his stated age. He is in no acute distress. He is alert and oriented x 3. HEENT: Normocephalic atraumatic pupils are equal round and reactive to light bilaterally. No scleral icterus no conjunctival injection external auditory canals are patent septum is in the midline nose is without discharge oral mucosa is pink and moist without lesion. NECK: Supple no rigidity no lymphadenopathy no thyromegaly no carotid bruits no JVD no masses. HEART: Regular rate and rhythm I do not appreciate any ectopy or rub. No murmur. LUNGS: Clear to auscultation bilaterally and anteriorly with no evidence of adventitious sounds/wheezes rales or rhonchi. ABDOMEN: Obese, soft nontender, no rebound, no peritoneal signs, positive bowel sounds, no appreciable organomegaly. EXTREMITIES: Intact, no peripheral cyanosis, clubbing. He has tolerant bilateral lower extremity peripheral edema. Strength is 5 out of 5 in extremities x4, no pathological reflexes. NEUROLOGICAL: Cranial nerves II through XII are grossly intact with no focal deficit elicited upon examination. No tremor. Assessment/plan: As described above. Please refer to orders for further planning. PG Care Time/CCT Total # of Minutes Spent Total Time Spent with Patient: Total time spent is greater than 50% in coordination of care (as documented) at patient's floor/unit and/or counseling patient: Coding [place] [address] INT INP/OBS CARE 3/75MIN Patient Type Established Medical Decision Making High Complexity Diagnoses Hyperkalemia E87.5 Leg edema R60.0 Diabetic peripheral neuropathy associated with type 1 diabetes mellitus E10.42 ESRD on dialysis N18.6; Z99.2 Insomnia G47.00 Chest pain R07.9 Thrombocytopenia D69.6 Hypothyroidism, unspecified type E03.9 Hypothyroidism type: unspecified Hypertension I10 Hypertension type: unspecified Atrial fibrillation I48.91 (8) Hypothyroidism Hypothyroidism type: unspecified Qualified Code(s): E03.9 - Hypothyroidism, unspecified (9) Hypertension Hypertension type: unspecified Qualified Code(s): I10 - Essential (primary) hypertension
[2023-07-09] MEDS: ACETAMINOPHEN 325 MG TAB PO SCH (11:11)
[2023-07-09] MEDS: INSULIN ASPART PER UNIT CHARGE SC SCH (11:12)
[2023-07-09] MEDS: HYDROmorphone INJ 0.5 MG/0.5 ML SYR IV STA (11:12)
[2023-07-09] MEDS ORDERED: INSULIN ASPART PER UNIT CHARGE SC SCH (11:30)
[2023-07-09] MEDS ORDERED: DICYCLOMINE HCL 10 MG CAP PO PRN (12:21)
--- NOTE | 2023-07-09 13:00 | Pharmacy Report ---
Pharmacy Glycemic Short Note 2 - Date of Service July 09, 2023 - Glycemic Short BSG Results (Last 24 hours): 07/09/23 07/09/23 08:25 11:05 Glucose 227 H POC Glucose 224 H OUTPATIENT ANTIDIABETIC REGIMEN: * Levemir 20 units SC HS * Novolog 20 units SC TIDM HbA1c: 6.1% (03/11/23) ASSESSMENT: * is a 42 year old male who presented to ED this morning with complaints of chest and leg pain * Patient well known to pharmacy glycemic service w/ history of T1DM and CKD on HD * Hyperkalemic on presentation (K+: 6.3 mmol/L), received D50W w/ 10 units IV insulin * Historically, patient has tolerated 20 units of basal daily w/ aggressive Novolog parameters * HD scheduled for today - will plan for initial insulin regimen similar to past inpatient doses PLAN FOR INPATIENT GLYCEMIC CONTROL: * Basal insulin * Lantus 20 units SC HS * Bolus insulin * NovoLog per scale ACHS or Q6hrs while NPO * Goal Range: Low 110 mg/dL - High 140 mg/dL * Correction Factor: 15 mg/dL/unit * Nutritional / Prandial insulin per carb ratio of 1 unit per 5 grams CHO consumed
--- NOTE | 2023-07-09 14:49 | Electrocardiogram Report ---
Test Reason : Blood Pressure : / mmHG Vent. Rate : 084 BPM Atrial Rate : 084 BPM P-R Int : 168 ms QRS Dur : 090 ms QT Int : 374 ms P-R-T Axes : 023 -11 075 degrees QTc Int : 441 ms Normal sinus rhythm Normal ECG When compared with ECG of 07-JUN-2023 05:54, No significant change was found Confirmed by Rich Marie ([id number]) on 07/09/2023 2:49:09 PM Referred By: Confirmed By:Brandon Marie
[2023-07-09 17:51] LABS: BUN Creatinine Ratio 6.2 (10-20); Calcium 9.4 mg/dl (8.6-10.3); Creatinine Clr Calc Pharmacy 22.8 ml/min; Est GFR (African American) 14.8 ml/min; Est GFR (Non-African American) 12.8 ml/min; Magnesium 1.9 mg/dl (1.7-2.4); Potassium 4.7 mmol/L (3.5-5.1)
[2023-07-09] MEDS ORDERED: LANTUS PER UNIT CHARGE SQ SCH (21:00)
[2023-07-09] MEDS: MELATONIN 3 MG TAB PO SCH (21:10)
[2023-07-09] MEDS: METOPROLOL SUCC 50MG EXT REL TAB PO SCH (21:10)
[2023-07-09] MEDS: APIXABAN 5 MG TABLET PO SCH (21:11)
[2023-07-09] MEDS: GABAPENTIN 600 MG TAB PO SCH (21:11)
[2023-07-09] MEDS: BUMETANIDE 1 MG TAB PO SCH (21:37)
[2023-07-09] MEDS: LANTUS PER UNIT CHARGE SC SCH (22:32)
[2023-07-10] MEDS: HYDROmorphone INJ 0.5 MG/0.5 ML SYR IV PRN (01:18)
[2023-07-10 04:46] LABS: Basophils # (auto) 0.03 K/uL (0.00-0.20); Basophils % (auto) 0.7 %; Eosinophils # (auto) 0.18 K/uL (0.00-0.50); Eosinophils % (auto) 4.2 %; Hemoglobin 9.7 g/dl (14.0-18.0); Immature Granulocytes # (auto) 0.01 K/uL (0.01-0.20); Immature Granulocytes % (auto) 0.2 %; Lymphocytes # (auto) 1.07 K/uL (1.20-3.40); Lymphocytes % (auto) 24.8 %; Mean Corpuscular Hemoglobin 27.8 pg (25.0-34.0); Mean Corpuscular Hgb Conc 31.3 g/dL (32.0-36.0); Mean Corpuscular Volume 88.8 fL (80.0-100.0); Mean Platelet Volume 10.2 fL (9.4-12.4); Monocytes # (auto) 0.54 K/uL (0.11-0.59); Monocytes % (auto) 12.5 %; Neutrophils # (auto) 2.49 K/uL (1.40-6.50); Neutrophils % (auto) 57.6 %; Platelet Count 115 K/uL (130-400); RDW Coefficient of Variation 15.5 % (11.5-14.5); RDW Standard Deviation 50.4 fL (36.4-46.3); Red Blood Count 3.49 M/uL (4.70-6.10); White Blood Count 4.32 K/ul (4.8-10.8)
[2023-07-10 05:09] LABS: INR 1.1 (0.9-1.1); Prothrombin Time 12.1 Seconds (9.0-12.0)
[2023-07-10 05:25] LABS: BUN Creatinine Ratio 6.8 (10-20); Creatinine Clr Calc Pharmacy 17.8 ml/min; Est GFR (Non-African American) 9.5 ml/min; Magnesium 1.9 mg/dl (1.7-2.4)
[2023-07-10] MEDS: LEVOTHYROXINE SODIUM 75 MCG TABLET PO SCH (06:30)
[2023-07-10] MEDS: PANTOprazole 40 MG TAB PO SCH (07:59)
[2023-07-10] MEDS: CINACALCET HCL 30 MG TAB PO SCH (07:59)
[2023-07-10] MEDS: ATORVASTATIN 40 MG TAB PO SCH (07:59)
[2023-07-10] MEDS: DULoxetine HCL 60 MG CAP PO SCH (07:59)
[2023-07-10] MEDS: amLODIPine BESYLATE 5 MG TAB PO SCH (08:00)
--- NOTE | 2023-07-10 10:15 | Hospitalist Progress Note ---
Date of Service July 10, 2023 Assessment & Plan (1) Hyperkalemia: Plan: -Admit to med/tele on pulse oximetry -Currently stable and non-toxic appearing -Presented to the ED due to worsening BL LE peripheral neuropathy and insomnia -Noted to have a potassium of 6.3 on arrival -States he had a "nearly complete" HD session yesterday but was stopped approximately 20 minutes early due to worsening peripheral neuropathy -Was noted to have peaked T-waves on ECG today but otherwise is without acute ECG changes -Was medically treated in the ED with 10 units IV regular human insulin and 1gm IV calcium gluconate -Nephrology has been consulted, appreciate their assistance >Will go for HD session shortly -Continue to monitor on tele -Will repeat BMP, mag, Phos this evening after dialysis -Continue chronic renal medications -DMI/Renal dialysis diet with 1800 mL fluid restriction -Home Eliquis for DVT PPX -AM CBC, BMP, mag, Phos (2) Leg edema: Plan: -Due to his known ESRD on HD MWF and CHF -His amlodipine could also be contributing to his leg swelling -Will receive HD session shortly -Continue BID Bumetanide -Consider switching antihypertensives if amlodipine could be contributing to his leg swelling (3) Diabetic peripheral neuropathy associated with type 1 diabetes mellitus: Plan: -Patient states his DM LE neuropathy which has been causing insomnia -Patient states he has been taking his Cymbalta and Gabapentin as prescribed -States he was started on PRN tramadol by his PCP but he did not as for a refill when he ran out in April as he did not think that it was helping -I explained that his neuropathy is likely multifactorial including his DMI and chronic LE edema -Explained that we should continue his Cymbalta and Gabapentin -Would be hesitant to increase doses of Cymbalta and Gabapentin due to his renal function -Will hold PO tramadol on admission and use prn Dilaudid for severe pain until he receives dialysis to see if this helps his pain -Could resume home tramadol tomorrow -Will start q6h scheduled tylenol as well -Recommended he see his PCP on DC to adjust medications further (4) ESRD on dialysis: Plan: -Nephrology is consulted and following -Will receive HD session shortly -Avoid nephrotoxic agents -Will monitor repeat BMP, mag, phos this evening after dialysis -Continue chronic Renal medications -Monitor am renal function and electrolytes (5) Insomnia: Plan: -Patient states he has not slept well for the past 5 nights due to neuropathy -Will continue pain regimen per neuropathy plan -Start start HS melatonin tonight (6) Chest pain: Plan: -One episode of substernal chest pain which lasted "a few seconds" after waking this am -Patient states he has otherwise been chest pain free today -States it feels similar to his previous episodes of chronic chest pain -High sen trop is WNL, ECG without acute ST segment changes -Likely due to his mild pulm edema on CXR -Continue to monitor on tele and continue pain regimen per neuropathy plan -Dialysis session on admission should also help (7) Thrombocytopenia: Plan: -Platelets at 127 today -No signs of bleeding -LFT's are WNL -Likely due to his chronic anemia from CKD -Continue to trend CBC daily for now, if thrombocytopenia progresses can continue workup (8) Hypothyroidism: Plan: -Continue levothyroxine (9) Hypertension: Plan: -Will receive HD session shortly which will help with his current HTN -Continue am amlodipine (10) Atrial fibrillation: Plan: -Currently in NSR -Continue Eliquis and metoprolol Plan The patient was discussed with Dr. Saucedo at the time of the admission Admission and Anticipated Discharge Date Admission Date: July 09, 2023 Results & Data Results & Data Vital Signs (Past 12 Hours) Vital Signs Pulse 07/10/23 07:18 72 07/09/23 23:00 77 PG Care Time/CCT Total # of Minutes Spent Total Time Spent with Patient: Total time spent is greater than 50% in coordination of care (as documented) at patient's floor/unit and/or counseling patient: Coding Diagnoses Hyperkalemia E87.5 Leg edema R60.0 Diabetic peripheral neuropathy associated with type 1 diabetes mellitus E10.42 ESRD on dialysis N18.6; Z99.2 Insomnia G47.00 Chest pain R07.9 Thrombocytopenia D69.6 Hypothyroidism, unspecified type E03.9 Hypothyroidism type: unspecified Hypertension I10 Hypertension type: unspecified Atrial fibrillation I48.91 (8) Hypothyroidism Hypothyroidism type: unspecified Qualified Code(s): E03.9 - Hypothyroidism, unspecified (9) Hypertension Hypertension type: unspecified Qualified Code(s): I10 - Essential (primary) hypertension
--- NOTE | 2023-07-10 10:50 | Pharmacy Report ---
Pharmacy Glycemic Short Note 2 - Date of Service July 10, 2023 - Glycemic Short BSG Results (Last 24 hours): 07/09/23 07/09/23 07/09/23 11:05 15:10 17:03 Glucose 153 H POC Glucose 224 H 111 H 07/09/23 07/09/23 07/10/23 17:50 21:49 03:46 Glucose 148 H POC Glucose 186 H 190 H 07/10/23 08:01 Glucose POC Glucose 166 H OUTPATIENT ANTIDIABETIC REGIMEN: * Levemir 20 units SC HS * Novolog 20 units SC TIDM HbA1c: 6.1% (03/11/23) ASSESSMENT: 07/10/23: * Blood sugars ranging 180-224 mg/dL yesterday, with fasting blood sugar of 166 mg/dL this morning * Received 40 units of SC insulin (50/50 basal/bolus split) * HD ordered for today * Do not anticipate any changes to glycemic regimen today 07/09/23: * MG is a 42 year old male who presented to ED this morning with complaints of chest and leg pain * Patient well known to pharmacy glycemic service w/ history of T1DM and CKD on HD * Hyperkalemic on presentation (K+: 6.3 mmol/L), received D50W w/ 10 units IV insulin * Historically, patient has tolerated 20 units of basal daily w/ aggressive Novolog parameters * HD scheduled for today - will plan for initial insulin regimen similar to past inpatient doses PLAN FOR INPATIENT GLYCEMIC CONTROL: * Basal insulin * Lantus 20 units SC HS * Bolus insulin * NovoLog per scale ACHS or Q6hrs while NPO * Goal Range: Low 110 mg/dL - High 140 mg/dL * Correction Factor: 15 mg/dL/unit * Nutritional / Prandial insulin per carb ratio of 1 unit per 5 grams CHO consumed
[2023-07-10] MEDS: EPOETIN ALFA 20,000 UNITS/ML VIAL IV STA (12:10)
--- NOTE | 2023-07-10 16:09 | Discharge Summary ---
Date of Service July 10, 2023 Admission HPI Per Admitting Provider Ventura is a 42 yo male with a h/o ESRD on HD MWF, anxiety, HTN,DM type 1 with neuropathy, nephropathy, hypothyroidism, venous ulcers, and insomnia who presented to the [facility] ED on 07/09/23 via EMS for progressive BL LE neuropathy, insomnia, and one episode of chest pain. He was noted to be hypertensive at 185/97 but was otherwise stable in the ED. Labs were significant for a platelet count of 127, lymphocyte count of 0.86, Cr of 7.76, potassium of 6.3, sodium of 132, AG of 12 with bicarb WNL, calcium of 10.5, and high sen trop WNL. Chest xray was read as "Cardiomegaly and mild pulmonary edema.". The ED spoke with Nephrology who will be taking the patient for a session of HD shortly. Prior to admission the patient was given 1gm IV calcium gluconate, 10 units regular IV human insulin. At the time of the exam the patient was sitting on the side of his bed in no acute distress. He states that the reason he came to the ED this am was due to 5 days of insomnia from his chronic lower extremity neuropathy. He states that he had been taking Cymbalta, gabapentin, and prn tramadol but stopped taking the tramadol in April as he did not think it was helping. He states that he had one episode of mid anterior chest pain after getting up this am. This felt like his chronic, non-cardiac chest pain. It lasted "for a few seconds" then subsided on it's own. He is currently without chest pain at the time of the admission. He denies recent fever, chills, cough, hemoptysis, SOB, abd pain, nausea, vomiting, dysuria, hematuria, melena, and recent trauma. He states he did have all his am meds prior to calling EMS today. He is a full code. Please refer to Dr. Saucedo' attestation for any changes to the treatment plan Discharge Data Allergies Allergy/AdvReac Type Severity Reaction Status Date / Time lisinopril AdvReac Intermediate COUGH Verified 06/21/23 01:03 Consultations 07/09/23 09:41 ED Decision to Admit Stat 07/09/23 11:02 Consult Nephrology Routine Hospital Course (1) Hyperkalemia: -Admit to med/tele on pulse oximetry -Currently stable and non-toxic appearing -Presented to the ED due to worsening BL LE peripheral neuropathy and insomnia -Noted to have a potassium of 6.3 on arrival -States he had a "nearly complete" HD session yesterday but was stopped approximately 20 minutes early due to worsening peripheral neuropathy -Was noted to have peaked T-waves on ECG today but otherwise is without acute ECG changes -Was medically treated in the ED with 10 units IV regular human insulin and 1gm IV calcium gluconate -Nephrology has been consulted, appreciate their assistance >Will go for HD session shortly -Continue to monitor on tele -Will repeat BMP, mag, Phos this evening after dialysis -Continue chronic renal medications -DMI/Renal dialysis diet with 1800 mL fluid restriction -Home Eliquis for DVT PPX -AM CBC, BMP, mag, Phos (2) Leg edema: -Due to his known ESRD on HD MWF and CHF -His amlodipine could also be contributing to his leg swelling -Will receive HD session shortly -Continue BID Bumetanide -Consider switching antihypertensives if amlodipine could be contributing to his leg swelling (3) Diabetic peripheral neuropathy associated with type 1 diabetes mellitus: -Patient states his DM LE neuropathy which has been causing insomnia -Patient states he has been taking his Cymbalta and Gabapentin as prescribed -States he was started on PRN tramadol by his PCP but he did not as for a refill when he ran out in April as he did not think that it was helping -I explained that his neuropathy is likely multifactorial including his DMI and chronic LE edema -Explained that we should continue his Cymbalta and Gabapentin -Would be hesitant to increase doses of Cymbalta and Gabapentin due to his renal function -Will hold PO tramadol on admission and use prn Dilaudid for severe pain until he receives dialysis to see if this helps his pain -Could resume home tramadol tomorrow -Will start q6h scheduled tylenol as well -Recommended he see his PCP on DC to adjust medications further (4) ESRD on dialysis: -Nephrology is consulted and following -Will receive HD session shortly -Avoid nephrotoxic agents -Will monitor repeat BMP, mag, phos this evening after dialysis -Continue chronic Renal medications -Monitor am renal function and electrolytes (5) Insomnia: -Patient states he has not slept well for the past 5 nights due to neuropathy -Will continue pain regimen per neuropathy plan -Start start HS melatonin tonight (6) Chest pain: -One episode of substernal chest pain which lasted "a few seconds" after waking this am -Patient states he has otherwise been chest pain free today -States it feels similar to his previous episodes of chronic chest pain -High sen trop is WNL, ECG without acute ST segment changes -Likely due to his mild pulm edema on CXR -Continue to monitor on tele and continue pain regimen per neuropathy plan -Dialysis session on admission should also help (7) Thrombocytopenia: -Platelets at 127 today -No signs of bleeding -LFT's are WNL -Likely due to his chronic anemia from CKD -Continue to trend CBC daily for now, if thrombocytopenia progresses can continue workup (8) Hypothyroidism: -Continue levothyroxine (9) Hypertension: -Will receive HD session shortly which will help with his current HTN -Continue am amlodipine (10) Atrial fibrillation: -Currently in NSR -Continue Eliquis and metoprolol Plan The patient was discussed with Dr. Saucedo at the time of the admission Discharge Plan Discharge Items Patient Disposition: Home - Self-Care Reason For Visit: CHEST PAIN, LEG AND FEET PAIN Discharge Diagnosis: Peripheral neuropathy High potassium Activity: Resume your previous activity Non-emergency contact: Primary Care Provider Call non-emergency contact if: you have any medication questions and your symptoms worsen Follow-up/Referrals: Maki Peterson MD [Primary Care Provider] - Diet: Dialysis Renal and Low Potassium (2gm) Addtl Attending Provider Instructions: You were admitted to from July 08 - 2023 due to peripheral neuropathy and high potassium. The high potassium was treated with x2 dialysis sessions. Recommend following up with your primary care physician for ongoing peripheral neuropathy management as discussed. Pending Studies at Discharge: No Stand-Alone Forms: My [facility] [place], Smoking Cessation Medications and DC Order Prescriptions: Continued (DME) pen needle, diabetic [Comfort EZ Pen Rebecca] 29 gauge x 1/2" needle See Rx Instructions .ROUTE .MEDSUPPLY Qty: 400 3RF Rx Instructions: use 4 x daily pantoprazole [Protonix] 40 mg tablet,delayed release (DR/EC) 40 mg PO QAM Qty: 90 3RF (DME) lancets [OneTouch Delica Plus Lancet] 33 gauge misc See Rx Instructions .Route Qty: 400 3RF Rx Instructions: test blood sugars 4 times daily cinacalcet 60 mg tablet 60 mg PO DAILY Qty: 30 2RF atorvastatin [Lipitor] 80 mg tablet 80 mg PO DAILY Qty: 90 3RF amlodipine 10 mg tablet 10 mg PO DAILY Qty: 90 2RF bumetanide 2 mg tablet 4 mg PO BID Qty: 90 1RF duloxetine [Cymbalta] 60 mg capsule,delayed release(DR/EC) 60 mg PO QAM Qty: 90 3RF gabapentin 300 mg capsule 600 mg PO BID 30 Days Qty: 120 0RF levothyroxine 75 mcg tablet 75 mcg PO DAILY Qty: 90 3RF (DME) Ketostix Strip See Rx Instructions .ROUTE .MEDSUPPLY Rx Instructions: As directed (DME) lancets [rSmartTouch Delica Lancets] 33 gauge [facility] [place] See Rx Instructions .ROUTE .MEDSUPPLY Qty: 400 3RF Rx Instructions: test blood suigars 4 x daily (DME) Dexcom G7 [employer] [facility] [place] Instructions .Route Qty: 1 0RF Rx Instructions: As directed Eliquis 5 mg tablet 5 mg PO BID 30 Days Qty: 180 3RF insulin detemir U-100 100 unit/mL (3 mL) insulin pen 20 unit SQ PM metoprolol succinate 50 mg tablet extended release 24 hr 50 mg PO BID Qty: 180 3RF (DME) Dexcom G7 Sensor Device See Rx Instructions .Route Qty: 3 5RF Rx Instructions: As directed (DME) blood-glucose meter [OneTouch Verio Flex meter] [facility] [place] Rx Instructions .ROUTE .MEDSUPPLY Qty: 1 0RF Rx Instructions: As directed (DME) OneTouch Verio test strips Strip See Rx Instructions .ROUTE .MEDSUPPLY Qty: 400 3RF Rx Instructions: Test 4 times daily tramadol 50 mg tablet 50 mg PO Q6H PRN (Reason: pain) Qty: 15 0RF insulin aspart U-100 100 unit/mL (3 mL) insulin pen 20 unit subcut TID Rx Instructions: Sliding Scale ammonium lactate 12 % cream 1 applic topical DAILY PRN (Reason: Dry Skin) Rx Instructions: Apply to lower legs and feet daily with dressing changes. dicyclomine 10 mg capsule 10 mg PO QID PRN (Reason: abdominal pain) Qty: 20 0RF Discharge Orders: Discharge Order (Routine); Ordered 07/10/23 Ordered By: Bruce Oconnell Admission Data Admit Date/Time: 07/09/23 10:43 Attending Provider: Bruce Oconnell Admit Provider: Vinnie Saucedo Primary Care Provider: Maki Peterson Other Providers: Vinnie Saucedo; Adrianne Kennedy Coding Diagnoses Hyperkalemia E87.5 Leg edema R60.0 Diabetic peripheral neuropathy associated with type 1 diabetes mellitus E10.42 ESRD on dialysis N18.6; Z99.2 Insomnia G47.00 Chest pain R07.9 Thrombocytopenia D69.6 Hypothyroidism, unspecified type E03.9 Hypothyroidism type: unspecified Hypertension I10 Hypertension type: unspecified Atrial fibrillation I48.91
== END 2023-07-10 17:02 | disposition home or self-care (01) | DRG 640 ==
LOC: ED 07:27 → SUATTDRO 10:43 → INTOOBSV 10:43 → EDINP 10:43

== ENCOUNTER 2023-10-13 07:32 | Observation (INO) ==
[2023-10-13 08:28] LABS: Basophils # (auto) 0.01 K/uL (0.00-0.20); Basophils % (auto) 0.3 %; Eosinophils # (auto) 0.06 K/uL (0.00-0.50); Eosinophils % (auto) 1.7 %; Hematocrit (blood only) 30.6 % (42.0-52.0); Hemoglobin 9.8 g/dl (14.0-18.0); Lymphocytes # (auto) 0.54 K/uL (1.20-3.40); Lymphocytes % (auto) 15.7 %; Mean Corpuscular Hemoglobin 28.2 pg (25.0-34.0); Mean Corpuscular Volume 88.2 fL (80.0-100.0); Mean Platelet Volume 11.4 fL (9.4-12.4); Monocytes # (auto) 0.37 K/uL (0.11-0.59); Monocytes % (auto) 10.8 %; Neutrophils # (auto) 2.45 K/uL (1.40-6.50); Neutrophils % (auto) 71.5 %; Platelet Count 106 K/uL (130-400); RDW Coefficient of Variation 15.3 % (11.5-14.5); RDW Standard Deviation 49.1 fL (36.4-46.3); Red Blood Count 3.47 M/uL (4.70-6.10); White Blood Count 3.43 K/ul (4.8-10.8)
[2023-10-13 08:46] LABS: BUN Creatinine Ratio 5.2 (10-20); Calcium 10.3 mg/dl (8.6-10.3); Creatinine Clr Calc Pharmacy 16.3 ml/min; Est GFR (African American) 9.9 ml/min; Est GFR (Non-African American) 8.5 ml/min; Potassium 4.5 mmol/L (3.5-5.1)
--- NOTE | 2023-10-13 08:59 | XRay Report ---
SINGLE VIEW CHEST CLINICAL HISTORY: Productive sputum. Cough FINDINGS: An AP, portable, upright chest radiograph is compared to study dated 10/08/2023. The examina tion is degraded by portable technique and patient rotation. The heart is enlarged. There is pulmona ry vascular congestion with interstitial edema. No large pleural effusion or pneumothorax is seen. Th e skeletal structures appear osteopenic. The bony thorax is grossly intact. IMPRESSION: Cardiomegaly with evidence of congestive failure and pulmonary edema. ACT 112: Negative or not required by law. Electronically signed by: Aaron Mcguire M.D. 10/13/2023 8:58 AM
--- NOTE | 2023-10-13 09:15 | Emergency Department Note ---
Impression & Plan CHF (congestive heart failure), Fluid overload ED Provider Note NAME: VIJAYA HAMILTON AGE: 43 SEX: M : 1980 ARRIVES VIA: Ambulance INFORMANT: Patient, ED PROVIDER(S): Bev Grider MD CHIEF COMPLAINT: Cough HPI: This is a 43-year-old male presenting for cough for patient of ESRD on hemodialysis, diabetes, CHF presenting for worsening cough. Patient states that he was seen overnight for follow-up and small symptoms. He given albuterol inhaler on discharge was made symptoms worse but is been coughing, bringing up yellow sputum. Currently denies any fevers but does report chills. States chronic leg swelling. ROS: See above HPI for pertinent positives & negatives. A total of 10 systems reviewed and were otherwise negative. PHYSICAL EXAMINATION: General: Chronically ill-appearing Head: Normocephalic and atraumatic Eyes: Normal inspection, extraocular muscles intact Ear, nose, throat: Normal external exam Neck: Normal range of motion Respiratory: l crackles at the bases Cardiovascular: Regular rate/rhythm, no murmur GI: soft, nontender, no guarding or rebound Extremities: nontender, moves all extremities Neuro: The patient awake and alert, appropriately conversive, no focal deficits, symmetric faces Skin: Warm, dry, and intact MEDICAL DECISION MAKING: This is a 41-year-old male with history of ESRD on hemodialysis, diabetes and CHF clinic for worsening cough. He states he is now bringing up new sputum. -Chest x-ray independently interpreted by me showing cardiomegaly with pulm vascular congestion, no focal opacity or pneumothorax. -Labs reviewed showing significant elevated BNP. Otherwise elevated creatinine consistent with ESRD. -He is at hemodialysis Saturday without missing any sessions. -Patient is coughing up clear/reddish sputum. Overall well-appearing however patient does not feel comfortable with discharge home due to his recurrent symptoms and shortness of breath. -Will admit patient for his pulm vascular congestion, pulmonary edema. -Care discussed with Dr. Lr Differential diagnosis: Fluid overload, CHF, pneumonia, PE ER treatment provided: See below Diagnostics interpreted by me: ECG: None Cardiac Monitoring: An order was placed for continuous cardiac monitoring. The monitor shows a rate of 81 with sinus rhythm. Laboratory studies: As stated above and show below. Imaging studies: See below. Past Med/Surg History Problem List (Updated 10/13/23 @ 14:15 by Bev Grider MD) Fluid overload (Acute) Fatigue (Acute) Hyperglycemia (Acute) Anxiety (Acute) Acute dyspnea (Acute) Anemia (Acute) ESRD (end stage renal disease) on dialysis (Acute) ESRD on hemodialysis (Acute) Vertigo (Acute) Chest pain (Acute) Diabetic nephropathy associated with type 1 diabetes mellitus Background diabetic retinopathy associated with type 1 diabetes mellitus Loss of protective sensation of skin of foot Anxiety and depression Anemia due to chronic kidney disease Venous ulcers of both lower extremities (Acute) Abnormal ankle brachial index CHF (congestive heart failure) (Acute) Atrial fibrillation SIRS (systemic inflammatory response syndrome) (Acute) Central venous catheter in place Dyslipidemia (Chronic) Macular edema (Chronic) Diabetic proliferative retinopathy (Chronic) Dysesthesia (Chronic) Vitamin D deficiency ESRD (end stage renal disease) (Acute) requiring hemodialysis. MWF at [facility]. Hypertension Hypothyroidism Obesity Diabetic peripheral neuropathy associated with type 1 diabetes mellitus (Acute) Type 1 diabetes Chronic venous insufficiency (Chronic) Medical History Chronic venous insufficiency Macular edema Vitamin D deficiency Diabetic neuropathy Type 1 diabetes Anxiety and depression Anemia CHF (congestive heart failure) Hypertension Hypothyroid ESRD (end stage renal disease) Atrial fibrillation Dyslipidemia Thrombosis of arteriovenous dialysis fistula (~02/15/20) Erectile dysfunction GERD (gastroesophageal reflux disease) Well controlled and stable Surgical History History of esophagogastroduodenoscopy (EGD) H/O detached retina repair S/P arteriovenous (AV) fistula creation left side, unable to use Family History Mother Diabetes Coronary heart disease Hypertension Father Coronary heart disease Hypertension Brother Coronary heart disease Kidney disease Uncle Colorectal cancer Grandmother Diabetes Aunt Diabetes Unknown Dyslipidemia Grandfather (Maternal) Diabetes Other Cancer No family history of adverse response to anesthesia Social History Smoking Status: Never smoker Second Hand Exposure: No; Do You Dip or Chew Tobacco: No; Hx Alcohol Use: No Hx Substance Use: No Preferred Language: Spanish Communication Ability: Effective Visual Impairment: No Limitations Hearing Ability: Normal Engine Tester Required: No Beliefs That Will Affect Care: None marital status: Single Current Living Situation: Alone Current Living Situation Comment: Brother 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" How many Children do You have: 0 Feels Safe at Home: Yes Diet: regular Dental Care, Regularly: No Physical Activity Frequency: Does not Exercise Seatbelt Use: always Sunscreen Use: No Assistive Devices: None Allergies Allergies Allergy/AdvReac Type Severity Reaction Status Date / Time lisinopril AdvReac Intermediate COUGH Verified 10/13/23 02:48 Home Meds Home Medications Medication Instructions Recorded Confirmed acetone (urine) test (Ketostix 01/29/23 10/10/23 strips) insulin detemir U-100 100 unit/mL 20 unit subcut PM 03/20/23 10/13/23 (3 mL) subcutaneous pen ammonium lactate 12 % topical cream 1 applic topical DAILY PRN Dry Skin 06/07/23 10/13/23 levothyroxine 75 mcg tablet 75 mcg PO DAILYBB 10/05/23 10/13/23 patiromer calcium sorbitex 8.4 0 g PO DAILY 10/05/23 10/13/23 gram oral powder packet ([place]) Previous Rx's Medication Instructions Recorded OneTouch Delica Lancets 33 gauge #400 ea 10/16/19 (lancets) lancets 33 gauge (OneTouch Delica #400 ea 01/28/23 Plus Lancet) cinacalcet 60 mg tablet 60 mg PO DAILY #30 tabs 02/15/23 atorvastatin 80 mg tablet (Lipitor) 80 mg PO DAILY #90 tabs 03/05/23 apixaban 5 mg tablet (Eliquis) 5 mg PO BID 30 days #180 tabs 03/20/23 blood-glucose meter,continuous #1 ea 03/20/23 (Dexcom G7 Head Loft Worker) amlodipine 10 mg tablet 10 mg PO DAILY #90 tabs 04/03/23 blood sugar diagnostic (OneTouch #400 ea 05/21/23 Verio test strips) blood-glucose meter (OneTouch #1 ea 05/21/23 Verio Flex Meter) metoprolol succinate 50 mg 50 mg PO BID #180 tabs 05/21/23 tablet,extended release 24 hr duloxetine 60 mg capsule,delayed 60 mg PO QAM #90 caps 06/14/23 release (Cymbalta) insulin aspart U-100 100 unit/mL 20 unit (0.2 mL) subcut TID #162 mL 07/12/23 (3 mL) subcutaneous pen pen needle, diabetic 29 gauge x #400 ea 07/12/23 1/2" (Comfort EZ Pen [place]) bumetanide 2 mg tablet 4 mg (2 x 2 mg) PO BID #360 tabs 08/08/23 tenapanor 30 mg tablet (Xphozah) 30 mg PO BID #60 tabs 08/19/23 tramadol 50 mg tablet 50 - 100 mg (1 - 2 x 50 mg) PO BID 08/19/23 PRN pain #120 tabs blood-glucose sensor (Dexcom G7 #3 ea 08/27/23 Sensor device) pregabalin 25 mg capsule (Lyrica) 25 mg PO BID #60 caps 08/29/23 lorazepam 0.5 mg tablet (Ativan) 0.5 mg PO Q12H PRN anxiety #6 tabs 10/08/23 meclizine 25 mg tablet 25 mg PO TID PRN dizziness or 10/10/23 vertigo #30 tabs sevelamer carbonate 800 mg tablet 800 mg PO TID #90 tabs 10/11/23 Results & Data (ED) Vital Signs Vital Signs - 24 hr 10/13/23 07:44 10/13/23 08:33 10/13/23 08:44 Temperature 36.4 C L Temperature Source Oral Pulse Rate 83 82 Pulse Rate [Finger] Pulse Rhythm Regular Pulse Rhythm [Finger] Pulse Strength Normal Pulse Strength [Finger] Respiratory Rate 20 Respiratory Effort / Characteristics Non-Labored Spontaneous Non-Labored Respiratory Depth Normal Normal Respiratory Pattern Regular Regular Blood Pressure 171/97 H Blood Pressure [Right Arm] Blood Pressure Mean 121 Blood Pressure Mean [Right Arm] Blood Pressure Position Sitting Blood Pressure Position [Right Arm] Pulse Oximetry 94 Oxygen Delivery Method Room Air Sepsis Recent Fever Within 48 Hours No Sepsis New/Unexplained Change in Mental Status N/A Sepsis Action Taken by Nursing No Action Required 10/13/23 09:17 Temperature Temperature Source Pulse Rate Pulse Rate [Finger] 82 Pulse Rhythm Pulse Rhythm [Finger] Regular Pulse Strength Pulse Strength [Finger] Normal Respiratory Rate 18 Respiratory Effort / Characteristics Non-Labored Respiratory Depth Normal Respiratory Pattern Regular Blood Pressure Blood Pressure [Right Arm] 182/105 H Blood Pressure Mean Blood Pressure Mean [Right Arm] 130 Blood Pressure Position Blood Pressure Position [Right Arm] Lying Pulse Oximetry 93 Oxygen Delivery Method Room Air Sepsis Recent Fever Within 48 Hours Sepsis New/Unexplained Change in Mental Status Sepsis Action Taken by Nursing Laboratory Data 10/13/23 08:03 10/13/23 08:03 Lab Results 10/13/23 10/13/23 Range/Units 08:03 08:20 WBC 3.43 L (4.8-10.8) K/ul RBC 3.47 L (4.70-6.10) M/uL Hgb 9.8 L (14.0-18.0) g/dl Hct 30.6 L (42.0-52.0) % MCV 88.2 (80.0-100.0) fL MCH 28.2 (25.0-34.0) pg MCHC 32.0 (32.0-36.0) g/dL RDW Std Deviation 49.1 H (36.4-46.3) fL RDW Coeff of Yuki 15.3 H (11.5-14.5) % Plt Count 106 L (130-400) K/uL MPV 11.4 (9.4-12.4) fL Immature Gran % (Auto) 0.0 % Neut % (Auto) 71.5 % Lymph % (Auto) 15.7 % Craig % (Auto) 10.8 % Eos % (Auto) 1.7 % Baso % (Auto) 0.3 % Neut # (Auto) 2.45 (1.40-6.50) K/uL Lymph # (Auto) 0.54 L (1.20-3.40) K/uL Craig # (Auto) 0.37 (0.11-0.59) K/uL Eos # (Auto) 0.06 (0.00-0.50) K/uL Baso # (Auto) 0.01 (0.00-0.20) K/uL Immature Gran # (Auto) 0.00 L (0.01-0.20) K/uL Sodium 132 L (136-145) mmol/L Potassium 4.5 (3.5-5.1) mmol/L Chloride 88 L (98-107) mmol/L Carbon Dioxide 34 H (21-32) mmol/L Anion Gap 10 (3-11) BUN 37 H (6-23) mg/dl Creatinine 7.18 H* D (0.6-1.4) mg/dl Est Cr Clr Drug Dosing 16.3 ml/min Est GFR ( Amer) 9.9 ml/min Est GFR (Non-Af Amer) 8.5 ml/min BUN/Creatinine Ratio 5.2 L (10-20) Glucose 295 H (70-99(Fasting)) mg/dl Calcium 10.3 (8.6-10.3) mg/dl B-Natriuretic Peptide 1766 H (0-100) pg/ml Adenovirus (PCR) Not Detected (NotDetected) B. pertussis DNA (PCR) Not Detected (NotDetected) B.parapertussis DNA PCR Not Detected (NotDetected) C. pneumoniae DNA (PCR) Not Detected (NotDetected) Coronavirus OC43 (PCR) Not Detected (NotDetected) Coronavirus HKU1 (PCR) Not Detected (NotDetected) Coronavirus 229E (PCR) Not Detected (NotDetected) SARS-CoV-2 (PCR) Not Detected (NotDetected) Coronavirus NL63 (PCR) Not Detected (NotDetected) Human Metapneumovir PCR Not Detected (NotDetected) Influenza Type A (PCR) Not Detected (NotDetected) Influenza Type B (PCR) Not Detected (NotDetected) M. pneumoniae (PCR) Not Detected (NotDetected) Parainfluenza 1 (PCR) Not Detected (NotDetected) Parainfluenza 2 (PCR) Not Detected (NotDetected) Parainfluenza 3 (PCR) Not Detected (NotDetected) Parainfluenza 4 (PCR) Not Detected (NotDetected) RSV (PCR) Not Detected (NotDetected) Entero/Rhino (PCR) Not Detected (NotDetected) Administered Medications Insulin Aspart (Insulin Aspart Per Unit Charge) 0 units SC ACHS CHASE Stop: 11/12/23 11:58 Last Admin: 10/13/23 13:32 Dose: 5 units Documented By: VME Co-signed By: BK Discontinued Medications Chlorothiazide Sodium 500 mg/ (Dextrose) 68 mls @ 200 mls/hr IV 0930 ONE Stop: 10/13/23 09:50 Last Infusion: 10/13/23 10:40 Dose: Infused Documented By: Admin: 10/13/23 10:17 Dose: 200 mls/hr Documented By: YARELIS Bumetanide 4 mg/ Syringe 16 mls @ 4 mls/min IV 1000 ONE Stop: 10/13/23 10:03 Last Admin: 10/13/23 10:13 Dose: 4 mls/min Documented By: YARELIS Imaging Data Radiologist's Impression: Chest X-Ray 10/13/23 07:56 SINGLE VIEW CHEST CLINICAL HISTORY: Productive sputum. Cough FINDINGS: An AP, portable, upright chest radiograph is compared to study dated 10/08/2023. The examination is degraded by portable technique and patient rotation. The heart is enlarged. There is pulmonary vascular congestion with interstitial edema. No large pleural effusion or pneumothorax is seen. The skeletal structures appear osteopenic. The bony thorax is grossly intact. IMPRESSION: Cardiomegaly with evidence of congestive failure and pulmonary edema. ACT 112: Negative or not required by law. Electronically signed by: Aaron Mcguire M.D. 10/13/2023 8:58 AM Discharge Plan Visit Data Chief Complaint: Fall Stated Complaint: FALLS ED Provider: Bev Grider Discharge Problem: CHF (congestive heart failure), Fluid overload Patient Disposition: Admitted As Inpatient Discharge Instructions Interventions: ED Discharge Assessment Last Done: 10/13/23 11:59
[2023-10-13 09:20] LABS: Adenovirus PCR Not Detected (NotDetected); Bordetella parapertussis PCR Not Detected (NotDetected); Bordetella pertussis PCR Not Detected (NotDetected); Chlamydia pneumoniae PCR Not Detected (NotDetected); Coronavirus 229E PCR Not Detected (NotDetected); Coronavirus CoV-2 (COVID19)PCR Not Detected (NotDetected); Coronavirus HKU1 PCR Not Detected (NotDetected); Coronavirus NL63 PCR Not Detected (NotDetected); Coronavirus OC43PCR Not Detected (NotDetected); Human Metapneumovirus PCR Not Detected (NotDetected); Influenza A PCR Not Detected (NotDetected); Influenza B PCR Not Detected (NotDetected); Mycoplasma pneumoniae PCR Not Detected (NotDetected); Parainfluenza Virus 1 PCR Not Detected (NotDetected); Parainfluenza Virus 2 PCR Not Detected (NotDetected); Parainfluenza Virus 3 PCR Not Detected (NotDetected); Parainfluenza Virus 4 PCR Not Detected (NotDetected); Respiratory Syncytial VirusPCR Not Detected (NotDetected); Rhinovirus/Enterovirus PCR Not Detected (NotDetected)
--- NOTE | 2023-10-13 09:42 | History & Physical Report ---
Date of Service October 13, 2023 Assessment & Plan (1) ESRD (end stage renal disease) on dialysis: Plan: Patient with end-stage renal disease here with volume overload. Patient has mild to moderate volume overload not requiring oxygen at this time does have chest x-ray changes and clinical exam changes consistent with heart failure. Patient states he is on a good output with his Bumex at home therefore we will give him a dose of IV Diuril and IV Bumex. Dr. Franks was consulted and likely began resumption of his renal replacement therapy on Saturday the . Continue disease modifying medications typically used for his end-stage renal disease (2) Atrial fibrillation: Plan: Patient remains rate controlled he is without an EKG checked in the emergency department to be placed on telemetry Continue metoprolol at apixaban (3) Type 1 diabetes: Plan: Continue continue long-acting and short acting insulin with sliding scale augmentation and diabetic diet Pregabalin for diabetic neuropathy Tramadol additionally for pain (4) Anxiety: Plan: Duloxetine continues for anxiety as well as lorazepam. Plan Patient is a full code Apixaban for DVT prevention History of Present Illness Primary Care Provider: Maki Peterson MD 43-year-old male with history of end-stage renal disease on hemodialysis has been having admission intermittent issues with symptomatic acute diastolic heart failure patient reportedly has been compliant with outpatient dialysis but has had increasing dyspnea edema and on imaging progression of pulmonary edema. Patient's BNP is elevated. Patient's had issues in the past with his AV fistula needing manipulation most recently in September 0804/2023 where he had a angioplasty of his fistula Otherwise patient complains of nonproductive cough states has been compliant with medications including outpatient Bumex pt was having issues with loose bowels at home and took significant amounts of ex lax Allergies Allergy/AdvReac Type Severity Reaction Status Date / Time lisinopril AdvReac Intermediate COUGH Verified 10/13/23 02:48 Home Medications Medication Instructions Recorded Confirmed Type OneTouch Delica Lancets 33 gauge #400 ea 10/16/19 10/10/23 Rx (lancets) lancets 33 gauge (OneTouch Delica #400 ea 01/28/23 10/10/23 Rx Plus Lancet) acetone (urine) test (Ketostix 01/29/23 10/10/23 History strips) cinacalcet 60 mg tablet 60 mg PO DAILY #30 tabs 10/27/23 06/23/24 Rx atorvastatin 80 mg tablet (Lipitor) 80 mg PO DAILY #90 tabs 03/05/23 10/13/23 Rx apixaban 5 mg tablet (Eliquis) 5 mg PO BID 30 days #180 tabs 03/20/23 10/13/23 Rx blood-glucose meter,continuous #1 ea 03/20/23 10/10/23 Rx (Dexcom G7 Executive Vice President And Chief Operating Officer) insulin detemir U-100 100 unit/mL 20 unit subcut PM 03/20/23 10/13/23 History (3 mL) subcutaneous pen amlodipine 10 mg tablet 10 mg PO DAILY #90 tabs 04/03/23 10/13/23 Rx blood sugar diagnostic (OneTouch #400 ea 05/21/23 10/10/23 Rx Verio test strips) blood-glucose meter (OneTouch #1 ea 05/21/23 10/10/23 Rx Verio Flex Meter) metoprolol succinate 50 mg 50 mg PO BID #180 tabs 05/21/23 10/13/23 Rx tablet,extended release 24 hr ammonium lactate 12 % topical cream 1 applic topical DAILY PRN Dry Skin 06/07/23 10/13/23 History duloxetine 60 mg capsule,delayed 60 mg PO QAM #90 caps 06/14/23 10/13/23 Rx release (Cymbalta) insulin aspart U-100 100 unit/mL 20 unit (0.2 mL) subcut TID #162 mL 07/12/23 10/13/23 Rx (3 mL) subcutaneous pen pen needle, diabetic 29 gauge x #400 ea 07/12/23 10/10/23 Rx 1/2" (Comfort EZ Pen [place]) bumetanide 2 mg tablet 4 mg (2 x 2 mg) PO BID #360 tabs 08/08/23 10/13/23 Rx tenapanor 30 mg tablet (Xphozah) 30 mg PO BID #60 tabs 08/19/23 10/13/23 Rx tramadol 50 mg tablet 50 - 100 mg (1 - 2 x 50 mg) PO BID 08/19/23 10/13/23 Rx PRN pain #120 tabs blood-glucose sensor (Dexcom G7 #3 ea 08/27/23 10/10/23 Rx Sensor device) pregabalin 25 mg capsule (Lyrica) 25 mg PO BID #60 caps 08/29/23 10/13/23 Rx levothyroxine 75 mcg tablet 75 mcg PO DAILYBB 10/05/23 10/13/23 History patiromer calcium sorbitex 8.4 0 g PO DAILY 10/05/23 10/13/23 History gram oral powder packet (Veltassa) lorazepam 0.5 mg tablet (Ativan) 0.5 mg PO Q12H PRN anxiety #6 tabs 10/08/23 10/13/23 Rx meclizine 25 mg tablet 25 mg PO TID PRN dizziness or 10/10/23 10/13/23 Rx vertigo #30 tabs sevelamer carbonate 800 mg tablet 800 mg PO TID #90 tabs 10/11/23 10/13/23 Rx Past Med/Surg History Problem List Fatigue (Acute) Hyperglycemia (Acute) Anxiety (Acute) Acute dyspnea (Acute) Anemia (Acute) ESRD (end stage renal disease) on dialysis (Acute) ESRD on hemodialysis (Acute) Vertigo (Acute) Chest pain (Acute) Diabetic nephropathy associated with type 1 diabetes mellitus Background diabetic retinopathy associated with type 1 diabetes mellitus Loss of protective sensation of skin of foot Anxiety and depression Anemia due to chronic kidney disease Venous ulcers of both lower extremities (Acute) Abnormal ankle brachial index CHF (congestive heart failure) (Acute) Atrial fibrillation SIRS (systemic inflammatory response syndrome) (Acute) Central venous catheter in place Dyslipidemia (Chronic) Macular edema (Chronic) Diabetic proliferative retinopathy (Chronic) Dysesthesia (Chronic) Vitamin D deficiency ESRD (end stage renal disease) (Acute) requiring hemodialysis. MWF at [facility]. Hypertension Hypothyroidism Obesity Diabetic peripheral neuropathy associated with type 1 diabetes mellitus (Acute) Type 1 diabetes Chronic venous insufficiency (Chronic) Medical History Chronic venous insufficiency Macular edema Vitamin D deficiency Diabetic neuropathy Type 1 diabetes Anxiety and depression Anemia CHF (congestive heart failure) Hypertension Hypothyroid ESRD (end stage renal disease) Atrial fibrillation Dyslipidemia Thrombosis of arteriovenous dialysis fistula (~02/15/20) Erectile dysfunction GERD (gastroesophageal reflux disease) Well controlled and stable Surgical History History of esophagogastroduodenoscopy (EGD) H/O detached retina repair S/P arteriovenous (AV) fistula creation left side, unable to use Family History Mother Diabetes Coronary heart disease Hypertension Father Coronary heart disease Hypertension Brother Coronary heart disease Kidney disease Uncle Colorectal cancer Grandmother Diabetes Aunt Diabetes Unknown Dyslipidemia Grandfather (Maternal) Diabetes Other Cancer No family history of adverse response to anesthesia Social History Smoking Status: Never smoker Second Hand Exposure: No; Do You Dip or Chew Tobacco: No; Hx Alcohol Use: No Hx Substance Use: No Preferred Language: Haitian Communication Ability: Effective Visual Impairment: No Limitations Hearing Ability: Normal Scientific Linguist Required: No Beliefs That Will Affect Care: None marital status: Single Current Living Situation: Alone Current Living Situation Comment: Brother 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" How many Children do You have: 0 Feels Safe at Home: Yes Diet: regular Dental Care, Regularly: No Physical Activity Frequency: Does not Exercise Seatbelt Use: always Sunscreen Use: No Assistive Devices: None Review of Systems Review of Systems: Mild-moderate distress and fatigue no headache, no visual changes no speech or swallowing issues no chest pain, pressure or palpitations c/o mild to moderate shortness of breath, non productive cough no abdominal pain, nausea or vomiting, diarrhea or constipation no dysuria, hematuria or frequency no focal joint pain chronic le swelling and skin changes no back pain, CVA tenderness or radicular pain no bruising, bleeding or rashes no focal signs of weakness or numbness or altered sensation no complaints of anxiety or depression.. Physical Exam Physical Exam: The patient appeared chronically ill and overweight Vital signs as documented. Head exam is normocephalic atraumatic Neck is without JVD, thyromegaly, or carotid bruits. Lungs patient has diminished breath sounds at the bases with rales equal bilaterally Cardiac exam, Rhythm is regular.. No murmurs, rubs or gallops. Abdominal exam reveals normal bowel sounds, soft non tender, no masses Extremities are chronic venous stasis changes with significant swelling to the lower extremity Neurologic exam is alert and oriented, no focal loss of strength or sensation Skin is with marked changes to his lower leg Psychologically is with significant anxiety Results & Data Results & Data Vital Signs (Past 12 Hours) Vital Signs Temp Pulse Pulse Resp BP BP Pulse Ox 10/13/23 09:17 82 18 182/105 H 93 10/13/23 08:44 82 10/13/23 07:44 97.5 F L 83 20 171/97 H 94 O2 Del Method 10/13/23 09:17 Room Air 10/13/23 08:44 10/13/23 07:44 Room Air Laboratory Results Reviewed CBC reviewed PRP Reviewed chest x-ray Personally discussed this case with Dr. Peraza PG Care Time/CCT Total # of Minutes Spent Total Time Spent with Patient: Total time spent is greater than 50% in coordination of care (as documented) at patient's floor/unit and/or counseling patient: Coding Level of Care Code 93578 INT INP/OBS CARE 3/75MIN Diagnoses ESRD (end stage renal disease) on dialysis N18.6; Z99.2 Atrial fibrillation I48.91 Type 1 diabetes E10.22; N18.6; Z99.2 Chronic kidney disease stage: on chronic dialysis Diabetes mellitus complication detail: with chronic kidney disease Diabetes mellitus complication status: with kidney complications Anxiety F41.9 (3) Type 1 diabetes Chronic kidney disease stage: on chronic dialysis Diabetes mellitus complication detail: with chronic kidney disease Diabetes mellitus complication status: with kidney complications Qualified Code(s): E10.22 - Type 1 diabetes mellitus with diabetic chronic kidney disease; N18.6 - End stage renal disease; Z99.2 - Dependence on renal dialysis
[2023-10-13] MEDS: BUMETANIDE 4 MG in SYRINGE 0 ML IV ONE (10:13)
[2023-10-13] MEDS: CHLOROTHIAZIDE SODIUM 500 MG in DEXTROSE 5% 50 ML IV ONE (10:17)
[2023-10-13] MEDS ORDERED: GLUCOSE 10 TAB/TUBE PO PRN (11:59)
[2023-10-13] MEDS ORDERED: MECLIZINE HCL 25 MG TAB PO PRN (11:59)
[2023-10-13] MEDS ORDERED: GLUCOSE 40% GEL 15 GM TUBE PO PRN (11:59)
[2023-10-13] MEDS ORDERED: ONDANSETRON INJ 2 MG/ML 2 ML VIAL IV PRN (11:59)
[2023-10-13] MEDS ORDERED: CARBOHYDRATES FOR HYPOGLYCEMIA PO PRN (11:59)
[2023-10-13] MEDS ORDERED: GLUCAGON FOR INJ 1 MG VIAL SQ PRN (11:59)
[2023-10-13] MEDS ORDERED: LORazepam 0.5 MG TAB PO PRN (11:59)
[2023-10-13] MEDS ORDERED: DEXTROSE 50% 50 ML SYRINGE IV PRN (11:59)
[2023-10-13] MEDS ORDERED: traMADol HCL 50 MG TABLET PO PRN (11:59)
[2023-10-13] MEDS ORDERED: ACETAMINOPHEN 325 MG TAB PO PRN (11:59)
[2023-10-13] MEDS ORDERED: AMMONIUM LACTATE 12% LOTION 225 GM BTL EXT PRN (12:16)
[2023-10-13] MEDS: INSULIN ASPART PER UNIT CHARGE SC SCH (13:32)
--- NOTE | 2023-10-13 14:41 | Nephrology Consultation ---
Date of Consultation October 13, 2023 Assessment & Plan (1) ESRD (end stage renal disease): HD MWF at [facility]. Rx: 4 hr, 2K 2.5Ca, 38HCO3, 138Na, Elisio 17H, Qb 450, Qd 500, 15g, EDW 112.5 kg. Orders for HD tomorrow have been entered into the EHR and reviewed with the power plant engineer. Diuretics provided to encourage urine output in the interim. No emergent indication for HD today. Medications appropriately dosed for kidney function. Renal diet. Phoslo QAC. Sensipar can be held while inpatient. Xphozah held - unclear if this is contributing to diarrhea. (2) Hypertension: Hold metoprolol pre-HD. Amlodipine as Rx. (3) Anemia: Chronic. Relatively stable. No signs of blood loss reported. History of Present Illness Reason for Consultation: ESRD on HD Attending Physician: Jamie Lr MD History of Present Illness Mr. Ventura Snell is a 43 year-old male with ESRD who presented to the ER at [facility] yesterday with cough and shortness of breath. Mr. Snell has ESRD due to DKD. He started on IHD 03/10 and dialyzes via LUE AVF.Angioplasty was performed to an area of stenosis last month by Dr. Combs. The fistula has been working well since. There are no recent complications with dialysis reported. He states that he is tolerating dialysis well. Records from [facility] were reviewed. Mr. Snell dialyzes at [facility] under the care of Dr. Miranda MWYoli (4 hr, 2K 2.5Ca, 38HCO3, 138Na, Elisio 17H, Qb 450, Qd 500, 15g, EDW 112.5 kg).A full dialysis treatment was completed on Saturday without complications. UF 2.6 L to a post weight of 112.5 kg. Medical history is significant for IDDM (Dx 10 yoa, + retinopathy & neuropathy), morbid obesity, hypothyroidism, anemia, and depression/anxiety. The patient was seen and evaluated in the ER this morning. I discussed the recent history and plan of care with Dr. Lr as well as Dr. Grider. Mr. Snell presented to the ER reporting shortness of breath and productive cough. He has multiple recent similar presentations. He is oxygenating well on room air and was comfortable walking in the ER at the time o f my assessment. Mr. Snell told me that he felt that he needed to be admitted to the hospital so that he could get some sleep and help moving his bowels. He has been taking Imodium regularly for chronic diarrhea. He continued taking Imodium despite no bowel movement in 4-5 days. He states that his stool was too loose to obtain a stool sample requested by his PCP and he hoped that a sample could be collected for him while he is in the hospital. He also admits that his anxiety has been high. His brother recently moved out and Mr. Snell is living alone. He told me that he thought being in the hospital + a sedative would help him get some rest. He denied significant dyspnea at the time of my assessment. He understood that dialysis would not be provided today and that he would likely get HD sooner if he attended his scheduled outpatient treatment tomorrow. Allergies Allergy/AdvReac Type Severity Reaction Status Date / Time lisinopril AdvReac Intermediate COUGH Verified 10/13/23 02:48 Home Medications Medication Instructions Recorded Confirmed Type OneTouch Delica Lancets 33 gauge #400 ea 10/16/19 10/10/23 Rx (lancets) lancets 33 gauge (OneTouch Delica #400 ea 01/28/23 10/10/23 Rx Plus Lancet) acetone (urine) test (Ketostix 01/29/23 10/10/23 History strips) cinacalcet 60 mg tablet 60 mg PO DAILY #30 tabs 02/15/23 10/13/23 Rx atorvastatin 80 mg tablet (Lipitor) 80 mg PO DAILY #90 tabs 03/05/23 10/13/23 Rx apixaban 5 mg tablet (Eliquis) 5 mg PO BID 30 days #180 tabs 03/20/23 10/13/23 Rx blood-glucose meter,continuous #1 ea 03/20/23 10/10/23 Rx (Dexcom G7 Animal Bounty Hunter) insulin detemir U-100 100 unit/mL 20 unit subcut PM 03/20/23 10/13/23 History (3 mL) subcutaneous pen amlodipine 10 mg tablet 10 mg PO DAILY #90 tabs 04/03/23 10/13/23 Rx blood sugar diagnostic (OneTouch #400 ea 05/21/23 10/10/23 Rx Verio test strips) blood-glucose meter (OneTouch #1 ea 05/21/23 10/10/23 Rx Verio Flex Meter) metoprolol succinate 50 mg 50 mg PO BID #180 tabs 05/21/23 10/13/23 Rx tablet,extended release 24 hr ammonium lactate 12 % topical cream 1 applic topical DAILY PRN Dry Skin 06/07/23 10/13/23 History duloxetine 60 mg capsule,delayed 60 mg PO QAM #90 caps 06/14/23 10/13/23 Rx release (Cymbalta) insulin aspart U-100 100 unit/mL 20 unit (0.2 mL) subcut TID #162 mL 07/12/23 10/13/23 Rx (3 mL) subcutaneous pen pen needle, diabetic 29 gauge x #400 ea 07/12/23 10/10/23 Rx 1/2" (Comfort EZ Pen [place]) bumetanide 2 mg tablet 4 mg (2 x 2 mg) PO BID #360 tabs 08/08/23 10/13/23 Rx tenapanor 30 mg tablet (Xphozah) 30 mg PO BID #60 tabs 08/19/23 10/13/23 Rx tramadol 50 mg tablet 50 - 100 mg (1 - 2 x 50 mg) PO BID 08/19/23 10/13/23 Rx PRN pain #120 tabs blood-glucose sensor (Dexcom G7 #3 ea 08/27/23 10/10/23 Rx Sensor device) pregabalin 25 mg capsule (Lyrica) 25 mg PO BID #60 caps 08/29/23 10/13/23 Rx levothyroxine 75 mcg tablet 75 mcg PO DAILYBB 10/05/23 10/13/23 History patiromer calcium sorbitex 8.4 0 g PO DAILY 10/05/23 10/13/23 History gram oral powder packet (Veltassa) lorazepam 0.5 mg tablet (Ativan) 0.5 mg PO Q12H PRN anxiety #6 tabs 10/08/23 10/13/23 Rx meclizine 25 mg tablet 25 mg PO TID PRN dizziness or 10/10/23 10/13/23 Rx vertigo #30 tabs sevelamer carbonate 800 mg tablet 800 mg PO TID #90 tabs 10/11/23 10/13/23 Rx Patient History Medical History Chronic venous insufficiency Macular edema Vitamin D deficiency Diabetic neuropathy Type 1 diabetes Anxiety and depression Anemia CHF (congestive heart failure) Hypertension Hypothyroid ESRD (end stage renal disease) Atrial fibrillation Dyslipidemia Thrombosis of arteriovenous dialysis fistula (~02/15/20) Erectile dysfunction GERD (gastroesophageal reflux disease) Well controlled and stable Surgical History History of esophagogastroduodenoscopy (EGD) H/O detached retina repair S/P arteriovenous (AV) fistula creation left side, unable to use Family History Mother Diabetes Coronary heart disease Hypertension Father Coronary heart disease Hypertension Brother Coronary heart disease Kidney disease Uncle Colorectal cancer Grandmother Diabetes Aunt Diabetes Unknown Dyslipidemia Grandfather (Maternal) Diabetes Other Cancer No family history of adverse response to anesthesia Social History Smoking Status: Never smoker Second Hand Exposure: No; Do You Dip or Chew Tobacco: No; Hx Alcohol Use: No Hx Substance Use: No Preferred Language: Northern Irish Communication Ability: Effective Visual Impairment: No Limitations Hearing Ability: Normal Dye Range Tender Required: No Beliefs That Will Affect Care: None marital status: Single Current Living Situation: Alone Current Living Situation Comment: Brother 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" How many Children do You have: 0 Feels Safe at Home: Yes Diet: regular Dental Care, Regularly: No Physical Activity Frequency: Does not Exercise Seatbelt Use: always Sunscreen Use: No Assistive Devices: None Review of Systems Review of Systems: All systems reviewed & are unremarkable except as noted in HPI & below Physical Exam Constitutional: + morbidly obese and + disheveled; no ac yahir distress and + not healthy appearing Eyes: + anicteric sclerae; no conjunctival abn ormality ENMT: Mouth: no oral mucosal abnormality and oral mucous membranes not dry Neck: normal visual inspection and trachea midline Respiratory: normal respiratory effort Auscultation: lungs clear to auscultation bilaterally Cardiovascular: Rate/Rhythm: regular rate Heart Sounds: normal S1, normal S2 and + murmur Extremities: + edema and + AV fistula (+thrill and bruit, aneurysm stable, high pitched) Musculoskeletal: Extremities: no cyanosis and no clubbing Skin: normal turgor; no lesions Neurologic: Motor/Sensory: no tremor and no asterixis Psychiatric: Orientation: alert and oriented x 3 Results & Data Vital Signs (Past 12 Hours) Vital Signs Temp Pulse Pulse Resp BP BP Pulse Ox 10/13/23 12:00 81 20 169/108 H 93 10/13/23 11:02 80 18 198/109 H 98 10/13/23 10:00 79 18 185/89 H 97 10/13/23 09:17 82 18 182/105 H 93 10/13/23 08:44 82 10/13/23 07:44 36.4 C L 83 20 171/97 H 94 O2 Del Method 10/13/23 12:00 Room Air 10/13/23 11:02 Room Air 10/13/23 10:00 Room Air 10/13/23 09:17 Room Air 10/13/23 08:44 10/13/23 07:44 Room Air Laboratory Results Laboratory Results - last 24 hr 10/13/23 10/13/23 10/13/23 08:03 08:20 12:57 WBC 3.43 L RBC 3.47 L Hgb 9.8 L Hct 30.6 L MCV 88.2 MCH 28.2 MCHC 32.0 RDW Std Deviation 49.1 H RDW Coeff of Yuki 15.3 H Plt Count 106 L MPV 11.4 Immature Gran % (Auto) 0.0 Neut % (Auto) 71.5 Lymph % (Auto) 15.7 [place]ier % (Auto) 10.8 Eos % (Auto) 1.7 Baso % (Auto) 0.3 Neut # (Auto) 2.45 Lymph # (Auto) 0.54 L [place] # (Auto) 0.37 Eos # (Auto) 0.06 Baso # (Auto) 0.01 Immature Gran # (Auto) 0.00 L Sodium 132 L Potassium 4.5 Chloride 88 L Carbon Dioxide 34 H Anion Gap 10 BUN 37 H Creatinine 7.18 H* D Est Cr Clr Drug Dosing 16.3 Est GFR ( Amer) 9.9 Est GFR (Non-Af Amer) 8.5 BUN/Creatinine Ratio 5.2 L Glucose 295 H POC Glucose 283 H Calcium 10.3 B-Natriuretic Peptide 1766 H Adenovirus (PCR) Not Detected B. pertussis DNA (PCR) Not Detected B.parapertussis DNA PCR Not Detected C. pneumoniae DNA (PCR) Not Detected Coronavirus OC43 (PCR) Not Detected Coronavirus HKU1 (PCR) Not Detected Coronavirus 229E (PCR) Not Detected SARS-CoV-2 (PCR) Not Detected Coronavirus NL63 (PCR) Not Detected Human Metapneumovir PCR Not Detected Influenza Type A (PCR) Not Detected Influenza Type B (PCR) Not Detected M. pneumoniae (PCR) Not Detected Parainfluenza 1 (PCR) Not Detected Parainfluenza 2 (PCR) Not Detected Parainfluenza 3 (PCR) Not Detected Parainfluenza 4 (PCR) Not Detected RSV (PCR) Not Detected Entero/Rhino (PCR) Not Detected Diagnostic Findings SINGLE VIEW CHEST FINDINGS: An AP, portable, upright chest radiograph is compared to study dated 10/08/2023. The examination is degraded by portable technique and patient rotation. The heart is enlarged. There is pulmonary vascular congestion with interstitial edema. No large pleural effusion or pneumothorax is seen. The skeletal structures appear osteopenic. The bony thorax is grossly intact. IMPRESSION: Cardiomegaly with evidence of congestive failure and pulmonary edema. PG Care Time/CCT Total # of Minutes Spent Total Time Spent with Patient: Total time spent is greater than 50% in coordination of care (as documented) at patient's floor/unit and/or counseling patient: Coding Level of Care Code 40988 IN/OBS CONSULT LVL 4,60M Diagnoses ESRD (end stage renal disease) N18.6 Hypertension I10 Hypertension type: unspecified Anemia D64.9 (2) Hypertension Hypertension type: unspecified Qualified Code(s): I10 - Essential (primary) hypertension
[2023-10-13] MEDS ORDERED: hydrALAZINE HCL 20 MG/ML VIAL IV PRN (17:57)
[2023-10-13] MEDS: SEVELAMER CARBONATE 800 MG TAB PO SCH (19:38)
[2023-10-13] MEDS: LANTUS PER UNIT CHARGE SC SCH (20:43)
[2023-10-13] MEDS: APIXABAN 5 MG TABLET PO SCH (20:44)
[2023-10-13] MEDS: QUEtiapine FUMARATE 25 MG TABLET PO ONE (20:45)
[2023-10-13] MEDS: METOPROLOL SUCC 50MG EXT REL TAB PO SCH (20:45)
[2023-10-13] MEDS: PREGABALIN 25 MG CAP PO SCH (20:50)
[2023-10-14] MEDS: LEVOTHYROXINE SODIUM 75 MCG TABLET PO SCH (05:29)
[2023-10-14] MEDS: DULoxetine HCL 60 MG CAP PO SCH (07:34)
[2023-10-14] MEDS: amLODIPine BESYLATE 5 MG TAB PO SCH (07:34)
[2023-10-14] MEDS: CINACALCET HCL 30 MG TAB PO SCH (07:35)
[2023-10-14] MEDS: ATORVASTATIN 40 MG TAB PO SCH (07:35)
--- NOTE | 2023-10-14 07:41 | Electrocardiogram Report ---
Test Reason : Blood Pressure : / mmHG Vent. Rate : 083 BPM Atrial Rate : 083 BPM P-R Int : 132 ms QRS Dur : 094 ms QT Int : 384 ms P-R-T Axes : 028 -02 067 degrees QTc Int : 451 ms Normal sinus rhythm Minimal voltage criteria for LVH, may be normal variant Borderline ECG When compared with ECG of 12-OCT-2023 23:07, No significant change was found Confirmed by Fran Pena [id number]) on 10/14/2023 7:41:21 AM Referred By: Jamie Lr Confirmed By:Fran Pena
--- NOTE | 2023-10-14 08:22 | Nephrology Progress Note ---
Date of Service October 14, 2023 Assessment & Plan (1) ESRD (end stage renal disease): Plan: * Patient is clinically volume overloaded. He is markedly hypertensive and has tense LE swelling * Question accuracy of weight. Hospital weight is 103 kg but outpatient EDW has been 112.5 kg * Will provide HD today and attempt 4 L UF * Outpatient HD: [facility] MWF, 4 hr, 2K 2.5Ca, 38HCO3, 138Na, Qb 450, Qd 500, 15g, EDW 112.5 kg * Continue Bumex 4 mg po BID to encourage diuresis (2) Hypertension: Plan: * Will challenge EDW * Continue Metoprolol, Amlodipine Admission and Anticipated Discharge Date Admission Date: October 13, 2023 Subjective Mr. Snell was evaluated in his hospital room this morning. He was ambulating on his own from the BR without oxygen. He reported that his diarrhea had resolved. He has not yet provided a stool sample for culture. Mr. Snell reported that he was finally able to sleep last night and was subjectively improved Review of Systems Constitutional: no fever Eyes: no problem reported Ear, Nose, Mouth, Throat: no problem reported Respiratory: no cough and no dyspnea Cardiovascular: no chest pain Gastrointestinal: + constipation and + diarrhea/loose stoo ls; no abdominal pain, no nausea and no vomiting Neurologic: no problem reported Physical Exam Constitutional: no acute distress Eyes: PERRL, conjunctivae normal, anicteric sclerae ENMT: external ear and nose normal, oropharynx normal Neck: trachea midline, no thyromegaly Respiratory: normal respiratory effort, lungs clear to auscultation Cardiovascular: Rate/Rhythm: + irregularly irregular Extremities: + edema (tense LE edema) and + AV fistula (+ bruit. Aneurysmal dilation at anastomotic site) Gastrointestinal (Abdomen): normal bowel sounds, soft, nontender, no hepatosplenomegaly Skin: no rashes, warm and dry Neurologic: awake; not confused Psychiatric: Affect: + depressed affect Results & Data Vital Signs (Past 12 Hours) Vital Signs Temp Pulse Pulse Resp BP Pulse Ox O2 Del Method 10/14/23 07:29 36.7 C 76 18 176/100 H 97 Nasal Cannula 10/14/23 07:26 74 10/14/23 03:31 37.0 C 78 18 164/92 H 93 Nasal Cannula 10/13/23 23:00 36.9 C 84 18 167/85 H 94 Room Air 10/13/23 22:00 82 O2 Flow Rate 10/14/23 07:29 2.0 10/14/23 07:26 10/14/23 03:31 2.0 10/13/23 23:00 10/13/23 22:00 Laboratory Results Laboratory Results - last 24 hr 10/13/23 10/13/23 10/13/23 12:57 16:33 20:27 Hgb Hct Sodium Potassium Chloride Carbon Dioxide Anion Gap BUN Creatinine Est Cr Clr Drug Dosing Est GFR ( Amer) Est GFR (Non-Af Amer) BUN/Creatinine Ratio Glucose POC Glucose 283 H 224 H 196 H Estimat Average Glucose Hemoglobin A1c Calcium Phosphorus Albumin 10/14/23 10/14/23 10/14/23 05:48 07:26 08:14 Hgb 8.7 L Hct 26.6 L Sodium 131 L Potassium 4.9 Chloride 89 L Carbon Dioxide 33 H Anion Gap 9 BUN 49 H Creatinine 9.16 H* D Est Cr Clr Drug Dosing 11.8 Est GFR ( Amer) 7.4 Est GFR (Non-Af Amer) 6.4 BUN/Creatinine Ratio 5.3 L Glucose 169 H POC Glucose 184 H 161 H Estimat Average Glucose 163 Hemoglobin A1c 7.3 H Calcium 9.7 Phosphorus 6.0 H Albumin 3.7 PG Care Time/CCT Total # of Minutes Spent Total Time Spent with Patient: Total time spent is greater than 50% in coordination of care (as documented) at patient's floor/unit and/or counseling patient: Coding Level of Care Code 24429 SUB INP/OBS CARE 3/50MIN Diagnoses ESRD (end stage renal disease) N18.6 Hypertension I10 Hypertension type: unspecified (2) Hypertension Hypertension type: unspecified Qualified Code(s): I10 - Essential (primary) hypertension
[2023-10-14 08:39] LABS: Hematocrit (blood only) 26.6 % (42.0-52.0); Hemoglobin 8.7 g/dl (14.0-18.0)
[2023-10-14 08:42] LABS: Estimated Average Glucose 163 mg/dl; Hemoglobin A1C 7.3 % (4.5-5.6)
[2023-10-14] MEDS ORDERED: PATIROMER CALCIUM SORBITEX 8.4 GM PACK PO SCH (09:00)
[2023-10-14 09:03] LABS: Albumin Level 3.7 gm/dl (3.4-5.0); BUN Creatinine Ratio 5.3 (10-20); Calcium 9.7 mg/dl (8.6-10.3); Creatinine Clr Calc Pharmacy 11.8 ml/min; Est GFR (African American) 7.4 ml/min; Est GFR (Non-African American) 6.4 ml/min; Potassium 4.9 mmol/L (3.5-5.1)
--- NOTE | 2023-10-14 11:22 | Discharge Summary ---
Date of Service October 14, 2023 Admission HPI Per Admitting Provider 43-year-old male with history of end-stage renal disease on hemodialysis has been having admission intermittent issues with symptomatic acute diastolic heart failure patient reportedly has been compliant with outpatient dialysis but has had increasing dyspnea edema and on imaging progression of pulmonary edema. Patient's BNP is elevated. Patient's had issues in the past with his AV fistula needing manipulation most recently in September 0804/2023 where he had a angioplasty of his fistula Otherwise patient complains of nonproductive cough states has been compliant with medications including outpatient Bumex pt was having issues with loose bowels at home and took significant amounts of ex lax Principal Diagnosis Volume overload, insomnia Discharge Exam General-alert and oriented x3, no fever, no chills HEENT-head atraumatic and normocephalic, pupils equal and reactive to light, extraocular muscles intact Neck-no lymphadenopathy or thyromegaly, trachea midline Chest-clear to auscultation. No rales, wheezing or rhonchi Cardiac-regular rate and rhythm, normal S1 and S2 Abdomen-normal bowel sounds, no hepatosplenomegaly Extremities-no cyanosis, clubbing, or edema Neuro-cranial nerves II through XII intact, motor and sensory function within normal limits, strength symmetrical, no focal deficits Psych-normal affect, normal mood Discharge Data Allergies Allergy/AdvReac Type Severity Reaction Status Date / Time lisinopril AdvReac Intermediate COUGH Verified 10/13/23 02:48 Consultations 10/13/23 10:57 ED Decision to Admit Stat 10/13/23 11:59 Consult Nephrology Routine Hospital Course (1) ESRD (end stage renal disease) on dialysis: The patient usually receives hemodialysis on Saturday and Fridays. He presented with insomnia and fluid overload. Lung sounds are clear. He was seen while in hemodialysis today, October 13. Seroquel helped him quite a bit with sleeping last night. This will be continued. He can go home later today, October 13 (2) Atrial fibrillation: Stable. Continue metoprolol and Eliquis. Telemetry (3) Type 1 diabetes: Stable continue continue long-acting and short acting insulin with sliding scale augmentation and diabetic diet. Pregabalin for diabetic neuropathy. Tramadol additionally for pain (4) Anxiety: Stable. Continue duloxetine and lorazepam. Plan Home later today, October 13. Continue Seroquel at bedtime Total Time Total Time Spent Total Time Spent (In Minutes): 45-minute Discharge Plan Discharge Items Patient Disposition: Home - Self-Care Reason For Visit: ACUTE DIASTOLIC HF, ERSD ON HD Discharge Diagnosis: Fluid overload. Insomnia Activity: Resume your previous activity Non-emergency contact: Primary Care Provider and Candy Feeder Call non-emergency contact if: your symptoms worsen Follow-up/Referrals: Maki Peterson MD [Primary Care Provider] - Diet: Carb Count or DM1 and Dialysis Renal Addtl Attending Provider Instructions: Takes Seroquel at bedtime for sleep Pending Studies at Discharge: No Stand-Alone Forms: My [employer], Smoking Cessation Medications and DC Order Prescriptions: New quetiapine [Seroquel] 25 mg tablet 25 mg PO HS Qty: 20 0RF Continued (DME) lancets [OneTouch Delica Plus Lancet] 33 gauge misc See Rx Instructions .Route Qty: 400 3RF Rx Instructions: test blood sugars 4 times daily cinacalcet 60 mg tablet 60 mg PO DAILY Qty: 30 2RF atorvastatin [Lipitor] 80 mg tablet 80 mg PO DAILY Qty: 90 3RF amlodipine 10 mg tablet 10 mg PO DAILY Qty: 90 2RF duloxetine [Cymbalta] 60 mg capsule,delayed release(DR/EC) 60 mg PO QAM Qty: 90 3RF (DME) pen needle, diabetic [Comfort EZ Pen [place]] 29 gauge x 1/2" needle See Rx Instructions .ROUTE .MEDSUPPLY Qty: 400 3RF Rx Instructions: use 4 x daily insulin aspart U-100 100 unit/mL (3 mL) insulin pen 20 unit subcut TID Qty: 162 3RF Rx Instructions: Sliding Scale bumetanide 2 mg tablet 4 mg PO BID Qty: 360 1RF Xphozah 30 mg tablet 30 mg PO BID Qty: 60 2RF tramadol 50 mg tablet 50 - 100 mg PO BID MDD 4 tabs PRN (Reason: pain) Qty: 120 0RF Rx Instructions: 1-2 tabs orally twice a day PRN; sevelamer carbonate 800 mg tablet 800 mg PO TID Qty: 90 2RF Rx Instructions: pt unsure must administer with a meal/food (DME) Ketostix Strip See Rx Instructions .ROUTE .MEDSUPPLY Rx Instructions: As directed (DME) Dexcom G7 Sensor Device See Rx Instructions .Route Qty: 3 5RF Rx Instructions: As directed pregabalin [Lyrica] 25 mg capsule 25 mg PO BID Qty: 60 0RF Patient Comments: has not started yet due to insurace will switch from gabapentin (DME) lancets [OneTouch Delica Lancets] 33 gauge misc See Rx Instructions .ROUTE .MEDSUPPLY Qty: 400 3RF Rx Instructions: test blood suigars 4 x daily (DME) Dexcom G7 Supervisor Cell Efficiency Misc See Rx Instructions .Route Qty: 1 0RF Rx Instructions: As directed Eliquis 5 mg tablet 5 mg PO BID 30 Days Qty: 180 3RF insulin detemir U-100 100 unit/mL (3 mL) insulin pen 20 unit SQ PM metoprolol succinate 50 mg tablet extended release 24 hr 50 mg PO BID Qty: 180 3RF (DME) blood-glucose meter [OneTouch Verio Flex meter] Misc See Rx Instructions .ROUTE .MEDSUPPLY Qty: 1 0RF Rx Instructions: As directed (DME) OneTouch Verio test strips Strip See Rx Instructions .ROUTE .MEDSUPPLY Qty: 400 3RF Rx Instructions: Test 4 times daily meclizine 25 mg tablet 25 mg PO TID PRN (Reason: dizziness or vertigo) Qty: 30 2RF ammonium lactate 12 % cream 1 applic topical DAILY PRN (Reason: Dry Skin) Rx Instructions: Apply to lower legs and feet daily with dressing changes. levothyroxine 75 mcg tablet 75 mcg PO DAILYBB [place] 8.4 gram powder in packet 0 g PO DAILY Patient Comments: has not started yet Rx Instructions: Takes sporatically lorazepam [Ativan] 0.5 mg tablet 0.5 mg PO Q12H PRN (Reason: anxiety) Qty: 6 0RF Discharge Orders: Discharge Order (Routine); Ordered 10/14/23 Ordered By: Neymar Kwan/Other Patient Handouts: Managing Type 1 Diabetes Admission Data Admit Date/Time: 10/13/23 09:51 Attending Provider: Neymar Cartwright Admit Provider: Jamie Lr Primary Care Provider: Maki Peterson Other Providers: Jamie Lr; [place],Zachary C. Coding Level of Care Code 47668 INP/OBS DISCH >30 MIN Diagnoses ESRD (end stage renal disease) on dialysis N18.6; Z99.2 Atrial fibrillation I48.91 Type 1 diabetes E10.22; N18.6; Z99.2 Chronic kidney disease stage: on chronic dialysis Diabetes mellitus complication detail: with chronic kidney disease Diabetes mellitus complication status: with kidney complications Anxiety F41.9
[2023-10-14] MEDS: BUMETANIDE 1 MG TAB PO SCH (13:19)
== END 2023-10-14 15:56 | disposition home or self-care (01) | DRG 291 ==
LOC: ED 07:32 → INTOOBSV 09:51 → EDINP 09:51 → SUATTDRO 09:51 → 2E 12:00

== ENCOUNTER 2023-11-12 21:06 | Inpatient (IN) ==
[2023-11-12 21:47] LABS: HCO3 VBG 32 mmol/L; Oxygen Saturation VBG 97.5 %; PCO2 VBG 41 mmHg (38-50); PO2 VBG 83 mmHg
[2023-11-12 22:12] LABS: Basophils # (auto) 0.02 K/uL (0.00-0.20); Basophils % (auto) 0.4 %; Eosinophils # (auto) 0.11 K/uL (0.00-0.50); Eosinophils % (auto) 2.2 %; Hematocrit (blood only) 25.6 % (42.0-52.0); Hemoglobin 8.3 g/dl (14.0-18.0); Immature Granulocytes # (auto) 0.01 K/uL (0.01-0.20); Immature Granulocytes % (auto) 0.2 %; Lymphocytes # (auto) 0.97 K/uL (1.20-3.40); Lymphocytes % (auto) 19.2 %; Mean Corpuscular Hemoglobin 27.4 pg (25.0-34.0); Mean Corpuscular Hgb Conc 32.4 g/dL (32.0-36.0); Mean Corpuscular Volume 84.5 fL (80.0-100.0); Mean Platelet Volume 12.5 fL (9.4-12.4); Monocytes # (auto) 0.34 K/uL (0.11-0.59); Monocytes % (auto) 6.7 %; Neutrophils # (auto) 3.61 K/uL (1.40-6.50); Neutrophils % (auto) 71.3 %; Platelet Count 108 K/uL (130-400); RDW Standard Deviation 49.5 fL (36.4-46.3); Red Blood Count 3.03 M/uL (4.70-6.10); White Blood Count 5.06 K/ul (4.8-10.8)
[2023-11-12] MEDS: ALBUT/IPRATROP 3MG/0.5MG NEB 3 ML VIAL NEB STA (22:13)
[2023-11-12 22:40] LABS: Adenovirus PCR Not Detected (NotDetected); Bordetella parapertussis PCR Not Detected (NotDetected); Bordetella pertussis PCR Not Detected (NotDetected); Chlamydia pneumoniae PCR Not Detected (NotDetected); Coronavirus 229E PCR Not Detected (NotDetected); Coronavirus CoV-2 (COVID19)PCR Not Detected (NotDetected); Coronavirus HKU1 PCR Not Detected (NotDetected); Coronavirus NL63 PCR Not Detected (NotDetected); Coronavirus OC43PCR Not Detected (NotDetected); Human Metapneumovirus PCR Not Detected (NotDetected); Influenza A PCR Not Detected (NotDetected); Influenza B PCR Not Detected (NotDetected); Mycoplasma pneumoniae PCR Not Detected (NotDetected); Parainfluenza Virus 1 PCR Not Detected (NotDetected); Parainfluenza Virus 2 PCR Not Detected (NotDetected); Parainfluenza Virus 3 PCR Not Detected (NotDetected); Parainfluenza Virus 4 PCR Not Detected (NotDetected); Respiratory Syncytial VirusPCR Not Detected (NotDetected); Rhinovirus/Enterovirus PCR Not Detected (NotDetected)
[2023-11-12 22:48] LABS: Calcium 10.2 mg/dl (8.6-10.3)
[2023-11-12] MEDS: FUROSEMIDE 40 MG/4 ML VIAL IV ONE (22:57)
[2023-11-12 23:00] LABS: BUN Creatinine Ratio 6.3 (10-20); Creatinine Clr Calc Pharmacy 12.9 ml/min; Est GFR (African American) 8.3 ml/min; Est GFR (Non-African American) 7.2 ml/min
--- NOTE | 2023-11-12 23:10 | History & Physical Report ---
Date of Service November 12, 2023 Assessment & Plan (1) Hyperkalemia: (2) Fluid overload: (3) Hypoxia: (4) Fluid overload: (5) Fatigue: (6) Hyperglycemia: (7) Acute dyspnea: (8) Anemia: (9) Diabetic nephropathy associated with type 1 diabetes mellitus: Plan Hyperkalemia | ESRD on Dialysis -Potassium 6.0 on arrival -Received calcium gluconate, IV insulin in ED. Received 40 IV Lasix, additional Bumex ordered -Plan to recheck metabolic panel in a.m. -Monitor on telemetry -Follows with nephrology/Dr. Miranda, will consult for dialysis tomorrow (scheduled MWF at [facility]) Congestive Heart Failure Exacerbation | HFpEF -BNP in ED was 1930 -Patient endorses some dietary indiscretion with more snacking lately -Received Lasix 40 IV in ED, will order an addition 4mg IV Bumex -Monitor I's & O's Hypoxia -Likely secondary to fluid overload -No oxygen requirement at baseline -Endorses a cough for the past week but no other symptoms. Received breathing treatment in ED which he felt was beneficial -On 2L NC during exam, wean supplemental oxygen as able -Per patient, is in process of obtaining sleep study for suspected sleep apnea Hypertension -Continue amlodipine Hypothyroidism -Continue Levothyroxine Atrial fibrillation -Paroxysmal a. fib, currently in sinus rhythm -Continue Eliquis, metoprolol -Monitor on telemetry Anxiety -Continue home meds Type 1 Diabetes Mellitus -Glycemic management consult ordered -Initial BSG in ED 432, repeat POC after insulin was 292 Admit to: PCU/telemetry Diet: Carb consistent VTE Prophylaxis: Eliquis Code Status: Full Code History of Present Illness Primary Care Provider: Maki Peterson MD Ventura Snell is a 43 year-old male with past medical history including ESRD on hemodialysis, type 1 diabetes, CHF, HTN who presents for ongoing cough. He states he has not missed any dialysis sessions, receives dialysis MWF at [facility] in [place]. He denies any noticeable changes in lower extremity edema, but has had a worsening cough over the past week. He states that he receives food from "[employer]" and notes eating more snacks like peanut granola bars lately. He states that he sleeps in a recliner/chair as he cannot lay flat due to dyspnea. States he does not wear oxygen at baseline, states he is trying to get a sleep study done because he has been told that he likely has sleep apnea. He denies changes in bowel or bladder habits, no chest pain. Patient states that he is full code status, requests his brother to make medical decisions if he is unable to make his own medical decisions. ED Course: -Calcium gluconate, IV insulin -EKG, chest XR Allergies Allergy/AdvReac Type Severity Reaction Status Date / Time lisinopril AdvReac Intermediate COUGH Verified 11/12/23 23:45 Home Medications Medication Instructions Recorded Confirmed Type OneTouch Delica Lancets 33 gauge #400 ea 10/16/19 11/12/23 Rx (lancets) lancets 33 gauge (OneTouch Delica #400 ea 01/28/23 11/12/23 Rx Plus Lancet) acetone (urine) test (Ketostix 01/29/23 11/12/23 History strips) cinacalcet 60 mg tablet 60 mg PO DAILY #30 tabs 02/15/23 11/12/23 Rx atorvastatin 80 mg tablet (Lipitor) 80 mg PO DAILY #90 tabs 03/05/23 11/12/23 Rx apixaban 5 mg tablet (Eliquis) 5 mg PO BID 30 days #180 tabs 03/20/23 11/12/23 Rx blood-glucose meter,continuous #1 ea 03/20/23 11/12/23 Rx (Dexcom G7 Fish Boning Machine Feeder) insulin detemir U-100 100 unit/mL 20 unit subcut PM 03/20/23 11/12/23 History (3 mL) subcutaneous pen amlodipine 10 mg tablet 10 mg PO DAILY #90 tabs 04/03/23 11/12/23 Rx blood sugar diagnostic (OneTouch #400 ea 05/21/23 11/12/23 Rx Verio test strips) blood-glucose meter (OneTouch #1 ea 05/21/23 11/12/23 Rx Verio Flex Meter) metoprolol succinate 50 mg 50 mg PO BID #180 tabs 05/21/23 11/12/23 Rx tablet,extended release 24 hr ammonium lactate 12 % topical cream 1 applic topical DAILY PRN Dry Skin 06/07/23 11/12/23 History duloxetine 60 mg capsule,delayed 60 mg PO QAM #90 caps 06/14/23 11/12/23 Rx release (Cymbalta) insulin aspart U-100 100 unit/mL 20 unit (0.2 mL) subcut TID #162 mL 07/12/23 11/12/23 Rx (3 mL) subcutaneous pen pen needle, diabetic 29 gauge x #400 ea 07/12/23 11/12/23 Rx 1/2" (Comfort EZ Pen [place]) bumetanide 2 mg tablet 4 mg (2 x 2 mg) PO BID #360 tabs 08/08/23 11/12/23 Rx tramadol 50 mg tablet 50 - 100 mg (1 - 2 x 50 mg) PO BID 08/19/23 11/12/23 Rx PRN pain #120 tabs blood-glucose sensor (Dexcom G7 #3 ea 08/27/23 11/12/23 Rx Sensor device) levothyroxine 75 mcg tablet 75 mcg PO DAILYBB 10/05/23 11/12/23 History meclizine 25 mg tablet 25 mg PO TID PRN dizziness or 10/10/23 11/12/23 Rx vertigo #30 tabs pregabalin 25 mg capsule (Lyrica) 25 mg PO BID #60 caps 10/18/23 11/12/23 Rx [id number] 2 cap PO .COMPLEX #180 caps 11/05/23 11/12/23 Rx 36,000-114,000-180,000 unit capsule,delay rel ([place]on) Past Med/Surg History Problem List (Updated 11/13/23 @ 10:27 by Adrianne Kennedy MD) ESRD (end stage renal disease) requiring hemodialysis. MWF at [facility]. 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) heart failure with preserved ejection fraction Hyperkalemia (Acute) Fluid overload (Acute) Hypoxia (Acute) Fluid overload (Acute) Fatigue (Acute) Hyperglycemia (Acute) Acute dyspnea (Acute) Anemia (Acute) Diabetic nephropathy associated with type 1 diabetes mellitus Background diabetic retinopathy associated with type 1 diabetes mellitus Loss of protective sensation of skin of foot Anxiety and depression Anemia due to chronic kidney disease Venous ulcers of both lower extremities (Acute) Abnormal ankle brachial index SIRS (systemic inflammatory response syndrome) (Acute) Central venous catheter in place Dyslipidemia (Chronic) Macular edema (Chronic) Diabetic proliferative retinopathy (Chronic) Dysesthesia (Chronic) Vitamin D deficiency Hypothyroidism Obesity Diabetic peripheral neuropathy associated with type 1 diabetes mellitus (Acute) Chronic venous insufficiency (Chronic) Medical History Anxiety ESRD (end stage renal disease) on dialysis CHF (congestive heart failure) Atrial fibrillation ESRD (end stage renal disease) requiring hemodialysis. MWF at [facility]. Hypertension Type 1 diabetes Chronic venous insufficiency Macular edema Vitamin D deficiency Diabetic neuropathy Type 1 diabetes Anxiety and depression Anemia CHF (congestive heart failure) Hypertension Hypothyroid ESRD (end stage renal disease) Atrial fibrillation Dyslipidemia Thrombosis of arteriovenous dialysis fistula (~02/15/20) Erectile dysfunction GERD (gastroesophageal reflux disease) Well controlled and stable Surgical History History of esophagogastroduodenoscopy (EGD) H/O detached retina repair S/P arteriovenous (AV) fistula creation left side, unable to use Family History Mother Diabetes Coronary heart disease Hypertension Father Coronary heart disease Hypertension Brother Coronary heart disease Kidney disease Uncle Colorectal cancer Grandmother Diabetes Aunt Diabetes Unknown Dyslipidemia Grandfather (Maternal) Diabetes Other Cancer No family history of adverse response to anesthesia Social History Smoking Status: Never smoker Second Hand Exposure: No; Do You Dip or Chew Tobacco: No; Hx Alcohol Use: No Hx Substance Use: No Preferred Language: Bur[place]ian Communication Ability: Effective Visual Impairment: No Limitations Hearing Ability: Normal 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 Beliefs That Will Affect Care: None marital status: Single Current Living Situation: Alone Current Living Situation Comment: Brother 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" How many Children do You have: 0 Feels Safe at Home: Yes Diet: regular Dental Care, Regularly: No Physical Activity Frequency: Does not Exercise Seatbelt Use: always Sunscreen Use: No Assistive Devices: Cane Review of Systems Review of Systems: As per above Physical Exam Constitutional: + obese; no acute distress Eyes: + anicteric sclerae; no conjunctival abn ormality ENMT: Ears: no external ear abnormality Nose: no external nose abnormality Moist mucous membranes Respiratory: + cough Auscultation: + diminished jaelyn ng sounds and + crackles Cardiovascular: Rate/Rhythm: regular rate and regular rhythm Extremities: + edema Gastrointestinal (Abdomen): Inspection/Auscultation: abdomen normal to inspection; abdomen not distended Percussion/Palpation: abdomen soft; abdomen nontender and no guarding Musculoskeletal: Moves all limbs independently Skin: Chronic venous stasis changes at bilateral lower extremities Psychiatric: A+Ox3, euthymic affect Results & Data Results & Data Vital Signs (Past 12 Hours) Vital Signs Temp Pulse Pulse Resp BP BP Pulse Ox 11/12/23 22:57 85 22 203/112 H 97 11/12/23 21:47 82 11/12/23 21:25 80 18 97 11/12/23 21:15 36.8 C 86 18 183/106 H 88 L O2 Del Method O2 Flow Rate 11/12/23 22:57 Nasal Cannula 2 11/12/23 21:47 11/12/23 21:25 Nasal Cannula 2 11/12/23 21:15 Room Air Supervising Physician Co-Signing Physician Notes Patient seen and examined, chart reviewed, case discussed with Dr. Yin and I agree with the assessment and plan as above. In brief, patient is a 43yo male with history of ESRD on HD, DM, CHF, HTN presenting with cough x 1 week. +Orthopnea, patient sleeping upright in recliner. No home O2 Hypoxic on arrival requiring 2L NC On exam patient is resting comfortably, NAD Skin - no rash HEENT - MMM Heart - +S1/S2, regular Lungs - +crackles in bilateral bases, no rhonchi Abd - soft, NT/ND Labs and images reviewed Assessment/Plan -Hyperkalemia, hypoxia on arrival - likely secondary to volume overload K treated medically Diuretic administered Nephrology consultation appreciated for HD in AM Remainder as above Resident Activity Tracking Resident Involvement: Resident Care Provided Care Provided: Adult Hospital Medicine (2) Fluid overload Hypervolemia type: unspecified Qualified Code(s): E87.70 - Fluid overload, unspecified (4) Fatigue Fatigue type: unspecified Qualified Code(s): R53.83 - Other fatigue (7) Anemia Anemia type: due to chronic kidney disease Chronic kidney disease stage: on chronic dialysis Qualified Code(s): N18.6 - End stage renal disease; D63.1 - Anemia in chronic kidney disease; Z99.2 - Dependence on renal dialysis
[2023-11-12] MEDS: CALCIUM GLUCONATE 1,000 MG/60 ML BAG IV STA (23:16)
[2023-11-12] MEDS: INSULIN HUMAN REGULAR PER UNIT 10 UNITS in SYRINGE 9.9 ML IV STA (23:23)
[2023-11-13] MEDS ORDERED: PHARMACY GLYCEMIC MGMT CONSULT PRN (00:37)
[2023-11-13] MEDS ORDERED: GLUCAGON FOR INJ 1 MG VIAL SQ PRN (00:42)
[2023-11-13] MEDS ORDERED: CARBOHYDRATES FOR HYPOGLYCEMIA PO PRN (00:42)
[2023-11-13] MEDS ORDERED: GLUCOSE 10 TAB/TUBE PO PRN (00:42)
[2023-11-13] MEDS ORDERED: GLUCOSE 40% GEL 15 GM TUBE PO PRN (00:42)
[2023-11-13] MEDS ORDERED: DEXTROSE 50% 50 ML SYRINGE IV PRN (00:42)
--- NOTE | 2023-11-13 00:42 | Emergency Department Note ---
History of Present Illness General Chief Complaint: Cough Stated Complaint: COUGH FOR 1-2 WEEKS Time Seen by Provider: 11/12/23 21:17 History of Present Illness Provider Complaint: shortness of breath and cough Onset (ago): week(s) (2) Severity: mild Consistency/Duration: + constant Maximum Pain Intensity: 2 Relieved By: + oxygen and + upright position Exacerbated By: + lying flat, + exertion and + coughing Known history of: congestive heart failure Associated symptoms: + orthopnea; no pain with inspiration, no lower extremity pain, no polyuria, no palpitations, no hemoptysis, no nausea/vomiting or no abdominal pain HPI Narrative: Patient is end-stage renal disease on hemodialysis Saturday. Patient states he had a full session done on Saturday and is due for dialysis tomorrow. Related Data Home oxygen amount: none Home Medications Medication Instructions Recorded Confirmed Type OneTouch Hemarinaica Lancets 33 gauge #400 ea 10/16/19 11/12/23 Rx (lancets) lancets 33 gauge (OneTouch Delica #400 ea 01/28/23 11/12/23 Rx Plus Lancet) acetone (urine) test (Ketostix 01/29/23 11/12/23 History strips) cinacalcet 60 mg tablet 60 mg PO DAILY #30 tabs 02/15/23 11/12/23 Rx atorvastatin 80 mg tablet (Lipitor) 80 mg PO DAILY #90 tabs 03/05/23 11/12/23 Rx apixaban 5 mg tablet (Eliquis) 5 mg PO BID 30 days #180 tabs 03/20/23 11/12/23 Rx blood-glucose meter,continuous #1 ea 03/20/23 11/12/23 Rx (Dexcom G7 Fuel Yard Operator) insulin detemir U-100 100 unit/mL 20 unit subcut PM 03/20/23 11/12/23 History (3 mL) subcutaneous pen amlodipine 10 mg tablet 10 mg PO DAILY #90 tabs 04/03/23 11/12/23 Rx blood sugar diagnostic (OneTouch #400 ea 05/21/23 11/12/23 Rx Verio test strips) blood-glucose meter (OneTouch #1 ea 05/21/23 11/12/23 Rx Verio Flex Meter) metoprolol succinate 50 mg 50 mg PO BID #180 tabs 05/21/23 11/12/23 Rx tablet,extended release 24 hr ammonium lactate 12 % topical cream 1 applic topical DAILY PRN Dry Skin 06/07/23 11/12/23 History duloxetine 60 mg capsule,delayed 60 mg PO QAM #90 caps 06/14/23 11/12/23 Rx release (Cymbalta) insulin aspart U-100 100 unit/mL 20 unit (0.2 mL) subcut TID #162 mL 07/12/23 11/12/23 Rx (3 mL) subcutaneous pen pen needle, diabetic 29 gauge x #400 ea 07/12/23 11/12/23 Rx 1/2" (Comfort EZ Pen [place]) bumetanide 2 mg tablet 4 mg (2 x 2 mg) PO BID #360 tabs 08/08/23 11/12/23 Rx tramadol 50 mg tablet 50 - 100 mg (1 - 2 x 50 mg) PO BID 08/19/23 11/12/23 Rx PRN pain #120 tabs blood-glucose sensor (Dexcom G7 #3 ea 08/27/23 11/12/23 Rx Sensor device) levothyroxine 75 mcg tablet 75 mcg PO DAILYBB 10/05/23 11/12/23 History meclizine 25 mg tablet 25 mg PO TID PRN dizziness or 10/10/23 11/12/23 Rx vertigo #30 tabs pregabalin 25 mg capsule (Lyrica) 25 mg PO BID #60 caps 10/18/23 11/12/23 Rx [id number] 2 cap PO .COMPLEX #180 caps 11/05/23 11/12/23 Rx 36,000-114,000-180,000 unit capsule,delay rel (Creon) Allergies Allergy/AdvReac Type Severity Reaction Status Date / Time lisinopril AdvReac Intermediate COUGH Verified 11/12/23 23:45 Past Med/Surg History Problem List (Updated 11/13/23 @ 00:42 by Yoel Ortega MD) Hyperkalemia (Acute) Fluid overload (Acute) Hypoxia (Acute) Fluid overload (Acute) Fatigue (Acute) Hyperglycemia (Acute) Acute dyspnea (Acute) Anemia (Acute) Diabetic nephropathy associated with type 1 diabetes mellitus Background diabetic retinopathy associated with type 1 diabetes mellitus Loss of protective sensation of skin of foot Anxiety and depression Anemia due to chronic kidney disease Venous ulcers of both lower extremities (Acute) Abnormal ankle brachial index SIRS (systemic inflammatory response syndrome) (Acute) Central venous catheter in place Dyslipidemia (Chronic) Macular edema (Chronic) Diabetic proliferative retinopathy (Chronic) Dysesthesia (Chronic) Vitamin D deficiency Hypothyroidism Obesity Diabetic peripheral neuropathy associated with type 1 diabetes mellitus (Acute) Chronic venous insufficiency (Chronic) Medical History Anxiety ESRD (end stage renal disease) on dialysis CHF (congestive heart failure) Atrial fibrillation ESRD (end stage renal disease) requiring hemodialysis. MWF at [facility]. Hypertension Type 1 diabetes Chronic venous insufficiency Macular edema Vitamin D deficiency Diabetic neuropathy Type 1 diabetes Anxiety and depression Anemia CHF (congestive heart failure) Hypertension Hypothyroid ESRD (end stage renal disease) Atrial fibrillation Dyslipidemia Thrombosis of arteriovenous dialysis fistula (~02/15/20) Erectile dysfunction GERD (gastroesophageal reflux disease) Well controlled and stable Surgical History History of esophagogastroduodenoscopy (EGD) H/O detached retina repair S/P arteriovenous (AV) fistula creation left side, unable to use Family History Mother Diabetes Coronary heart disease Hypertension Father Coronary heart disease Hypertension Brother Coronary heart disease Kidney disease Uncle Colorectal cancer Grandmother Diabetes Aunt Diabetes Unknown Dyslipidemia Grandfather (Maternal) Diabetes Other Cancer No family history of adverse response to anesthesia Social History Smoking Status: Never smoker Second Hand Exposure: No; Do You Dip or Chew Tobacco: No; Hx Alcohol Use: No Hx Substance Use: No Preferred Language: Albanian Communication Ability: Unable Visual Impairment: No Limitations Hearing Ability: Normal 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 Beliefs That Will Affect Care: None marital status: Single Current Living Situation: Alone Current Living Situation Comment: Brother 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" How many Children do You have: 0 Feels Safe at Home: Yes Diet: regular Dental Care, Regularly: No Physical Activity Frequency: Does not Exercise Seatbelt Use: always Sunscreen Use: No Assistive Devices: Cane Physical Exam 2 Vital Signs: Vital Signs - 24 hr 11/12/23 21:15 11/12/23 21:25 11/12/23 21:47 Temperature 36.8 C Temperature Source Oral Pulse Rate 86 80 82 Pulse Rate [Apical ] Pulse Rhythm [Apic al] Pulse Strength [Ap ical] Respiratory Rate 18 18 Respiratory Effort / Characteristics Non-Labored Respiratory Depth Normal Respiratory Patter n Regular Blood Pressure 183/106 H Blood Pressure [Ri ght Arm] Blood Pressure Caryn n 131 Blood Pressure Caryn n [Right Arm] Blood Pressure Pos ition Sitting Blood Pressure Pos ition [Right Arm] Pulse Oximetry 88 L 97 Oxygen Delivery Me thod Room Air Nasal Cannula Oxygen Flow Rate 2 Sepsis Recent Feve r Within 48 Hours No Sepsis New/Unexpla ined Change in Men marah Status N/A Sepsis Action Take n by Nursing No Action Required 11/12/23 22:57 11/12/23 23:30 Temperature Temperature Source Pulse Rate Pulse Rate [Apical ] 85 90 Pulse Rhythm [Apic al] Regular Pulse Strength [Ap ical] Normal Respiratory Rate 22 20 Respiratory Effort / Characteristics Non-Labored Respiratory Depth Normal Normal Respiratory Patter n Regular Blood Pressure Blood Pressure [Ri ght Arm] 203/112 H 183/99 H Blood Pressure Caryn n Blood Pressure Caryn n [Right Arm] 142 127 Blood Pressure Pos ition Blood Pressure Pos ition [Right Arm] Sitting Pulse Oximetry 97 98 Oxygen Delivery Me thod Nasal Cannula Nasal Cannula Oxygen Flow Rate 2 Sepsis Recent Feve r Within 48 Hours Sepsis New/Unexpla ined Change in Men marah Status Sepsis Action Take n by Nursing Physical Exam: Physical Exam GENERAL: oriented to person, place, and time. appears well-developed and well- nourished. HENT: Exam performed. - Head: Normocephalic and atraumatic. EYES: Conjunctivae and EOM are normal. Right eye exhibits no discharge. Left eye exhibits no discharge. No scleral icterus. NECK: Normal range of motion. Neck supple. No JVD present. CV: Normal rate, regular rhythm, normal heart sounds and intact distal pulses. Palpable radial pulses bue. PULM/CHEST: Diminished breath sounds bilaterally ABD: The abdomen is soft. There is no tenderness. MUSC: Left upper extremity: AV fistula with palpable thrill. NEURO: Motor and sensation grossly intact. SKIN: Skin is warm and dry. He is not diaphoretic. PSYCH: normal mood and affect. Behavior is normal. Judgment and thought content normal. Course Course 2116: The patient was evaluated in room C10. A complete history and physical exam was performed Cardiac monitoring: An order was placed for continuous cardiac monitoring. The monitor shows a rate of 80 with sinus rhythm interpreted by me Patient found to be hypoxic on room air. Supplemental oxygen was applied via nasal cannula which improved the patient's oxygen saturation. 2300: Vital signs stable on supplemental oxygen via nasal cannula. Labs show potassium of 6, hemoglobin 8.3 VBG within normal limits. Creatinine 8.26. Glucose 432 BNP 1930 BioFire negative. Patient's chest x-ray shows cardiomegaly with cephalization. Patient treated with calcium gluconate 1 g as well as 10 units of insulin for his hyperkalemia. [facility]. Administered Medications Discontinued Medications Albuterol (Albut/Ipratrop 3mg/0.5mg Neb 3 Ml Vial) 3 ml NEB NOW STA; Protocol Stop: 11/12/23 21:23 Last Admin: 11/12/23 22:13 Dose: 3 ml Documented By: CLARI Furosemide (Furosemide 40 Mg/4 Ml Vial) 40 mg IV ONE ONE Stop: 11/12/23 22:54 Last Admin: 11/12/23 22:57 Dose: 40 mg Documented By: JAMES Calcium Gluconate () 1,000 mg in 60 mls @ 240 mls/hr IV NOW STA Stop: 11/12/23 23:11 Last Infusion: 11/12/23 23:32 Dose: Infused Documented By: Admin: 11/12/23 23:16 Dose: 240 mls/hr Documented By: JAMES Insulin Human Regular 10 units (/ Syringe) 9.9 mls @ 3 mls/sec IV ONE STA Stop: 11/12/23 22:58 Last Admin: 11/12/23 23:23 Dose: 3 mls/sec Documented By: JAMES Co-signed By: JOSE Medical Decision Making Laboratory Data Attestation: I reviewed the patient's lab results. 11/12/23 21:35 11/12/23 21:35 Lab Results 11/12/23 11/12/23 11/12/23 Range/Units 21:29 21:35 22:56 WBC 5.06 (4.8-10.8) K/ul RBC 3.03 L (4.70-6.10) M/uL Hgb 8.3 L (14.0-18.0) g/dl Hct 25.6 L (42.0-52.0) % MCV 84.5 (80.0-100.0) fL MCH 27.4 (25.0-34.0) pg MCHC 32.4 (32.0-36.0) g/dL RDW Std Deviation 49.5 H (36.4-46.3) fL RDW Coeff of Yuki 16.0 H (11.5-14.5) % Plt Count 108 L (130-400) K/uL MPV 12.5 H (9.4-12.4) fL Immature Gran % (Auto) 0.2 % Neut % (Auto) 71.3 % Lymph % (Auto) 19.2 % [place] % (Auto) 6.7 % Eos % (Auto) 2.2 % Baso % (Auto) 0.4 % Neut # (Auto) 3.61 (1.40-6.50) K/uL Lymph # (Auto) 0.97 L (1.20-3.40) K/uL [place] # (Auto) 0.34 (0.11-0.59) K/uL Eos # (Auto) 0.11 (0.00-0.50) K/uL Baso # (Auto) 0.02 (0.00-0.20) K/uL Immature Gran # (Auto) 0.01 (0.01-0.20) K/uL VBG pH 7.50 H (7.36-7.41) VBG pCO2 41 (38-50) mmHg VBG pO2 83 mmHg VBG HCO3 32 mmol/L VBG O2 Saturation 97.5 % VBG Base Excess 8.0 mEq/L Sodium 132 L (136-145) mmol/L Potassium 6.0 H (3.5-5.1) mmol/L Chloride 90 L (98-107) mmol/L Carbon Dioxide 32 (21-32) mmol/L Anion Gap 10 (3-11) BUN 52 H (6-23) mg/dl Creatinine 8.26 H* (0.6-1.4) mg/dl Est Cr Clr Drug Dosing 12.9 ml/min Est GFR ( Amer) 8.3 ml/min Est GFR (Non-Af Amer) 7.2 ml/min BUN/Creatinine Ratio 6.3 L (10-20) Glucose 432 H* (70-99(Fasting)) mg/dl POC Glucose 413 H* (70-99) mg/dl Calcium 10.2 (8.6-10.3) mg/dl B-Natriuretic Peptide 1930 H (0-100) pg/ml Adenovirus (PCR) Not Detected (NotDetected) B. pertussis DNA (PCR) Not Detected (NotDetected) B.parapertussis DNA PCR Not Detected (NotDetected) C. pneumoniae DNA (PCR) Not Detected (NotDetected) Coronavirus OC43 (PCR) Not Detected (NotDetected) Coronavirus HKU1 (PCR) Not Detected (NotDetected) Coronavirus 229E (PCR) Not Detected (NotDetected) SARS-CoV-2 (PCR) Not Detected (NotDetected) Coronavirus NL63 (PCR) Not Detected (NotDetected) Human Metapneumovir PCR Not Detected (NotDetected) Influenza Type A (PCR) Not Detected (NotDetected) Influenza Type B (PCR) Not Detected (NotDetected) M. pneumoniae (PCR) Not Detected (NotDetected) Parainfluenza 1 (PCR) Not Detected (NotDetected) Parainfluenza 2 (PCR) Not Detected (NotDetected) Parainfluenza 3 (PCR) Not Detected (NotDetected) Parainfluenza 4 (PCR) Not Detected (NotDetected) RSV (PCR) Not Detected (NotDetected) Entero/Rhino (PCR) Not Detected (NotDetected) 11/13/23 Range/Units 00:23 WBC (4.8-10.8) K/ul RBC (4.70-6.10) M/uL Hgb (14.0-18.0) g/dl Hct (42.0-52.0) % MCV (80.0-100.0) fL MCH (25.0-34.0) pg MCHC (32.0-36.0) g/dL RDW Std Deviation (36.4-46.3) fL RDW Coeff of Yuki (11.5-14.5) % Plt Count (130-400) K/uL MPV (9.4-12.4) fL Immature Gran % (Auto) % Neut % (Auto) % Lymph % (Auto) % [place] % (Auto) % Eos % (Auto) % Baso % (Auto) % Neut # (Auto) (1.40-6.50) K/uL Lymph # (Auto) (1.20-3.40) K/uL [place] # (Auto) (0.11-0.59) K/uL Eos # (Auto) (0.00-0.50) K/uL Baso # (Auto) (0.00-0.20) K/uL Immature Gran # (Auto) (0.01-0.20) K/uL VBG pH (7.36-7.41) VBG pCO2 (38-50) mmHg VBG pO2 mmHg VBG HCO3 mmol/L VBG O2 Saturation % VBG Base Excess mEq/L Sodium (136-145) mmol/L Potassium (3.5-5.1) mmol/L Chloride (98-107) mmol/L Carbon Dioxide (21-32) mmol/L Anion Gap (3-11) BUN (6-23) mg/dl Creatinine (0.6-1.4) mg/dl Est Cr Clr Drug Dosing ml/min Est GFR ( Amer) ml/min Est GFR (Non-Af Amer) ml/min BUN/Creatinine Ratio (10-20) Glucose (70-99(Fasting)) mg/dl POC Glucose 292 H (70-99) mg/dl Calcium (8.6-10.3) mg/dl B-Natriuretic Peptide (0-100) pg/ml Adenovirus (PCR) (NotDetected) B. pertussis DNA (PCR) (NotDetected) B.parapertussis DNA PCR (NotDetected) C. pneumoniae DNA (PCR) (NotDetected) Coronavirus OC43 (PCR) (NotDetected) Coronavirus HKU1 (PCR) (NotDetected) Coronavirus 229E (PCR) (NotDetected) SARS-CoV-2 (PCR) (NotDetected) Coronavirus NL63 (PCR) (NotDetected) Human Metapneumovir PCR (NotDetected) Influenza Type A (PCR) (NotDetected) Influenza Type B (PCR) (NotDetected) M. pneumoniae (PCR) (NotDetected) Parainfluenza 1 (PCR) (NotDetected) Parainfluenza 2 (PCR) (NotDetected) Parainfluenza 3 (PCR) (NotDetected) Parainfluenza 4 (PCR) (NotDetected) RSV (PCR) (NotDetected) Entero/Rhino (PCR) (NotDetected) Imaging Data Attestation: I personally reviewed and interpreted this imaging study as follows: My Impression: Chest x-ray: Cardiomegaly with cephalization ECG Data Attestation: I personally reviewed and interpreted this ECG as follows: Interpretation: Sinus rhythm with rate of 82. [place] QRS and QTc intervals within normal limits. No ST elevation or ST depression. Peaked T waves present. [facility] Narrative 2116: The patient was evaluated in room C10. A complete history and physical exam was performed Cardiac monitoring: An order was placed for continuous cardiac monitoring. The monitor shows a rate of 80 with sinus rhythm interpreted by me Patient found to be hypoxic on room air. Supplemental oxygen was applied via nasal cannula which improved the patient's oxygen saturation. 2300: Vital signs stable on supplemental oxygen via nasal cannula. Labs show potassium of 6, hemoglobin 8.3 VBG within normal limits. Creatinine 8.26. Glucose 432 BNP 1930 BioFire negative. Patient's chest x-ray shows cardiomegaly with cephalization. Patient treated with calcium gluconate 1 g as well as 10 units of insulin for his hyperkalemia. [facility] given Lasix [facility] Impression & Plan Hypoxia, Fluid overload, Hyperkalemia Critical Care Time Critical Care Time: Yes Total Critical Care Time: 41 I have personally spent greater than 41 minutes of critical care time in the direct management of this patient. This includes bedside care, interpretation of diagnostic studies, and testing, discussion with consultants, patient, and family members, and other required patient management activities. This 41 minutes is in excess of all separately billable procedures. Discharge Plan Visit Data Chief Complaint: Cough Stated Complaint: COUGH FOR 1-2 WEEKS ED Provider: Yoel Ortega Discharge Problem: Hypoxia, Fluid overload, Hyperkalemia Patient Disposition: Admitted As Inpatient Forms Stand Alone Forms: My [facility] Prescriptions Prescriptions: No Action (DME) lancets [OneTouch Delica Plus Lancet] 33 gauge misc See Rx Instructions .Route Qty: 400 3RF Rx Instructions: test blood sugars 4 times daily cinacalcet 60 mg tablet 60 mg PO DAILY Qty: 30 2RF atorvastatin [Lipitor] 80 mg tablet 80 mg PO DAILY Qty: 90 3RF amlodipine 10 mg tablet 10 mg PO DAILY Qty: 90 2RF duloxetine [Cymbalta] 60 mg capsule,delayed release(DR/EC) 60 mg PO QAM Qty: 90 3RF (DME) pen needle, diabetic [Comfort EZ Pen [place]] 29 gauge x 1/2" needle See Rx Instructions .ROUTE .MEDSUPPLY Qty: 400 3RF Rx Instructions: use 4 x daily insulin aspart U-100 100 unit/mL (3 mL) insulin pen 20 unit subcut TID Qty: 162 3RF Rx Instructions: Sliding Scale bumetanide 2 mg tablet 4 mg PO BID Qty: 360 1RF tramadol 50 mg tablet 50 - 100 mg PO BID MDD 4 tabs PRN (Reason: pain) Qty: 120 0RF Rx Instructions: 1-2 tabs orally twice a day PRN; pregabalin [Lyrica] 25 mg capsule 25 mg PO BID Qty: 60 1RF Patient Comments: has not started yet due to insurace will switch from gabapentin Creon 36,000-114,000- 180,000 unit capsule,delayed release(DR/EC) 2 cap PO .COMPLEX Qty: 180 2RF Rx Instructions: 2 caps orally with meals and 1 cap with snacks; administer with meals and/or snacks (DME) Ketostix Strip See Rx Instructions .ROUTE .MEDSUPPLY Rx Instructions: As directed (DME) Dexcom G7 Sensor Device See Rx Instructions .Route Qty: 3 5RF Rx Instructions: As directed (DME) lancets [OneTouch Delica Lancets] 33 gauge misc See Rx Instructions .ROUTE .MEDSUPPLY Qty: 400 3RF Rx Instructions: test blood suigars 4 x daily (DME) Dexcom G7 Fuel Yard Operator Misc See Rx Instructions .Route Qty: 1 0RF Rx Instructions: As directed Eliquis 5 mg tablet 5 mg PO BID 30 Days Qty: 180 3RF insulin detemir U-100 100 unit/mL (3 mL) insulin pen 20 unit SQ PM metoprolol succinate 50 mg tablet extended release 24 hr 50 mg PO BID Qty: 180 3RF (DME) blood-glucose meter [OneTouch Verio Flex meter] Misc See Rx Instructions .ROUTE .MEDSUPPLY Qty: 1 0RF Rx Instructions: As directed (DME) OneTouch Verio test strips Strip See Rx Instructions .ROUTE .MEDSUPPLY Qty: 400 3RF Rx Instructions: Test 4 times daily meclizine 25 mg tablet 25 mg PO TID PRN (Reason: dizziness or vertigo) Qty: 30 2RF ammonium lactate 12 % cream 1 applic topical DAILY PRN (Reason: Dry Skin) Rx Instructions: Apply to lower legs and feet daily with dressing changes. levothyroxine 75 mcg tablet 75 mcg PO DAILYBB Referrals Referrals: Maki Peterson MD [Primary Care Provider] - Discharge Problem: Fluid overload Qualifiers: Hypervolemia type: unspecified Qualified Code(s): E87.70 - Fluid overload, unspecified
[2023-11-13] MEDS ORDERED: POLYETHYLENE (MIRALAX) 17 GM PACK PO PRN (01:09)
[2023-11-13] MEDS ORDERED: MECLIZINE HCL 25 MG TAB PO PRN (01:09)
[2023-11-13] MEDS ORDERED: ACETAMINOPHEN 325 MG TAB PO PRN (01:09)
[2023-11-13] MEDS ORDERED: ONDANSETRON INJ 2 MG/ML 2 ML VIAL IV PRN (01:09)
[2023-11-13] MEDS: LANTUS PER UNIT CHARGE SQ STA (01:17)
[2023-11-13] MEDS ORDERED: AMMONIUM LACTATE 12% LOTION 225 GM BTL EXT PRN (01:18)
[2023-11-13] MEDS: INSULIN ASPART PER UNIT CHARGE SC STA (01:18)
[2023-11-13] MEDS ORDERED: PANCREAZE (LIPASE 10,500U) CAP PO PRN (01:19)
[2023-11-13] MEDS: BUMETANIDE 4 MG in SYRINGE 0 ML IV ONE (01:55)
[2023-11-13] MEDS: INSULIN ASPART PER UNIT CHARGE SC SCH (04:02)
[2023-11-13] MEDS: LEVOTHYROXINE SODIUM 75 MCG TABLET PO SCH (05:21)
--- NOTE | 2023-11-13 07:45 | XRay Report ---
XR chest 1V portable CLINICAL HISTORY: cough TECHNIQUE: Single frontal radiograph of the chest was obtained. Comparison: Comparison is made to chest radiograph 10/13/2023 FINDINGS: Exam is limited by underpenetration. Cardiomegaly is noted. There is prominence and cephalization of the vasculature with Roma B lines seen. Possible faint bilateral lower lung airspace opacities are seen. No evidence of pleural effusion or pneumothorax. IMPRESSION: Cardiomegaly and moderate pulmonary edema. Faint bilateral airspace opacities are seen which may repr esent atelectasis, pneumonia, and/or aspiration. ACT 112: Negative or not required by law. Electronically signed by: Lee Millan M.D. 11/13/2023 7:43 AM
--- OUTSIDE RECORDS SUMMARY | 2023-11-13 07:57 | External Medical Summary | Summary of Care ---
Author Name Unknown Organization [facility] Address [address] [place] [address] Phone [phone] Care Team Providers Care Dispute Resolution Specialist Name Role Phone Maki Peterson MD Primary Care Provid er Reason for Visit * Reason Onset Date Comments Referral 10/23/2023 Encounter Details Date Type Department Care Team (Late st Contact Info) Description 10/23/2023 Telephone Transplant Clinic, [place] [address] [place] [address] Althea [place]ray, [place] [address] Referral Allergies Active Allergy Reactions Criticality Noted Date Comments Lisinopril Cough 10/21/2017 documented as of this encounter (statuses as of 10/23/2023) Medications Medication Sig Dispensed Refills Start Date End Date Status NOVOLOG FLEXPEN 100 UNIT/ML SOPN three times a day with meals. Per sliding scale 1 09/26/2017 Active Bumetanide 2 MG Tablet Take 1 Tablet by mouth in the morning and 1 Tablet before bedtime. 0 09/24/2017 Active levothyroxine (LEVOXYL) 50 MCG Tablet Take 1 Tablet by mouth in the morning. 0 09/17/2017 Active ONETOUCH VERIO STRP 0 09/19/2017 Activ e BD PEN NEEDLE BRANDT U/F 32G X 4 MM 0 09/24/2017 Active atorvaSTATin (LIPITOR) 80 MG Tablet Take 1 Tablet by mouth every evening. 0 10/04/2017 Active DULoxetine (CYMBALTA) 30 MG CPEP Take 1 Capsule by mouth in the morning. 08/25/2018 Active Vitamin D, Ergocalciferol, 55199 units Capsule Take 1 Capsule by mouth every Saturday. 08/23/2018 Active Dexcom G6 Transmitter 12/13/2021 Act kamilah Dexcom G6 Sensor 12/13/2021 Active Acetaminophen-Codeine #3 300-30 MG Oral Tablet (Tylenol #3) 1 Tablet. 10/27/2021 Activ e Pantoprazole Sodium 40 MG Oral Tablet Delayed Release (Protonix) TAKE 1 TABLET BY MOUTH EVERY DAY IN THE MORNING 05/25/2022 Active Velphoro 500 MG Oral Tablet Chewable Take 1 Tablet by mouth in the morning and 1 Tablet at noon and 1 Tablet before bedtime. Chew tablet.. 07/25/2022 Active Benzonatate 100 MG Oral CapsuleIndications:Ac yahir cough Take 1 Capsule by mouth 3 times a day as needed for Cough. 30 Capsule 1 08/20/2022 Active Apixaban 5 MG Oral Tablet (Eliquis) Take 1 Tablet by mouth in the morning and 1 Tablet before bedtime. 11/03/2022 Active Carvedilol 25 MG Oral Tablet (Coreg) Take 1 Tablet by mouth in the morning and 1 Tablet before bedtime. 60 Tablet 3 02/13/2023 Active Gabapentin 300 MG Oral Capsule (Neurontin) Take 1 Capsule by mouth in the morning and 1 Capsule before bedtime. May take up to 1500 mg. 60 Capsule 3 02/13/2023 Active Levemir FlexPen 100 UNIT/ML Subcutaneous Solution Pen-injector Inject 10 Units under the skin every night at bedtime. 1 Each 3 02/13/2023 Active Cinacalcet HCl 60 MG Oral Tablet (Sensipar) Take 1 tablet by mouth daily with dinner 30 Tablet 11 04/12/2023 Active documented as of this encounter (statuses as of 10/23/2023) Active Problems Problem Noted Date Diagnosed Date Heart failure, etiology unknown 02/11/2023 Atrial fibrillation 02/11/2023 Chronic anticoagulation 02/11/2023 ESRD on dialysis 02/11/2023 CKD (chronic kidney disease) Diabetes HTN (hypertension) Neuropathy Obesity Retinopathy documented as of this encounter (statuses as of 10/23/2023) Resolved Problems Problem Noted Date Diagnosed Date Resolved Date Pleural effusion 02/11/2023 02/12/2023 Hyperkalemia 02/11/2023 02/12/2023 documented as of this encounter (statuses as of 10/23/2023) Immunizations Name Administration Dates Next Due Pneumococcal Conjugate Vacci ne, 20-valent ([id number]) 02/13/2023(Deferred: Patient Refused) documented as of this encounter Social History Tobacco Use Types Packs/Day Years Used Date Smoking Tobacco: Never Smokeless Tobacco: Former Alcohol Use Standard Drinks/Week Comments Never 0 (1 standard drink = 0.6 oz pur e alcohol) Personal Safety Answer Date Recorded Do you feel unsafe or have concerns for your saf ety? No 02/11/2023 Do you have concerns for you r family's safety? (Household - for ages 0-17 years) Not on file 02/11/2023 Utilities Answer Date Recorded Do you have trouble paying y our heating, water, or electric bill? No 02/11/2023 Is your family able to pay t he heat, water, or electric bill? (Household - for ages 0-17 years) Not on file 02/11/2023 Does your family have access to good internet? (Household - for ages 0-17 years) Not on file 02/11/2023 Social Connections Answer Date Recorded How often do you feel lonely or isolated from those around you? (Adult - for ages 18 years and over) Not on file 10/08/2023 Transportation Needs Answer Date Record ed READ ONLY Do you have troubl e getting a ride to medical visits or work? Never True 02/11/2023 Does your family have a hard time getting a ride to doctors visits? (Household - for ages 0-17 years) Not on file 02/11/2023 Has lack of transportation k ept you from medical appointments, meetings, work, or from getting things needed for daily living? Check all that apply. (Adult - for ages 18 years and over) Not on file 02/11/2023 Do you (or your family) have trouble finding or paying for a ride (transportation)? (Household - for ages 0-17 years) Not on file 02/11/2023 Housing Stability Answer Date Recorded Do you currently live in a s helter or have no steady place to sleep at night? (Adult - for ages 18 years and over) Not on file 02/11/2023 READ ONLY Do you think you a re at risk of becoming homeless? No 02/11/2023 Does your family worry about paying for your home or becoming homeless? (Household - for ages 0-17 years) Not on file 1 Are you homeless or worried that you might be in the future? (Adult - for ages 18 years and over) Not on file Are you (or your family) stephanie eless or worried that you might be in the future? (Household - for ages 0-17 years) Not on file Food Insecurity Answer Date Recorded Do you need food for this week? No 02/11/2023 Are you able to get enough f ood for your family? (Household - for ages 0-17 years) Not on file 02/11/2023 Does your family need food t his week? (Household - for ages 0-17 years) Not on file 02/11/2023 Do you always have enough fo od for your family? (Household - for ages 0-17 years) Not on file 02/11/2023 Sex and Gender Information Value Date Recorded Sex Assigned at Not on file Gender Identity Not on file Sexual Orientation Not on file Job Start Date Occupation Industry Not on file Not on file Not on file documented as of this encounter Miscellaneous Notes * Telephone Encounter - Althea Wray, RN - 10/23/2023 2:50 PM EDT Call placed to patient regarding missed/no show to scheduled evaluations in July and September. Patientreports that he is "working on his numbers" and is having some mental health issues. 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 Pt verbalized understanding. Althea Wray RN 2:52 PM documented in this encounter Plan of Treatment Health Maintenance Due Date Last Done Comments Depression Screening 1993 HIV Screening 1996 TSH 09/22/1999 08/24/1998, 07/1996, 04/24/1996 DTaP,Tdap,and Td Vaccines (1 - Tdap) 2000 Hepatitis B Vaccine (1 of 3 - 19+ 3-dose series) 2000 Diabetic Foot Exam 03/25/2003 03/25/2002 Lipid Panel 03/25/2007 03/25/2002, 04/24/1996 Diabetic Eye Exam 03/24/2019 03/24/2018 HbA1c 08/13/2023 02/11/2023, 05/23, 10/21/2002, Additional history exists Influenza Vaccine (FLU shot) (#1) 2023 01/30/2023 Pneumococcal Vaccine: Pediatrics (0 to 5 Years) and At-Risk Patients (6 to 64 Years) (3 of 3 - PPSV23 or PCV20) 01/24/2024 01/23/2019, 04/29/2014 Albumin/Creatinine Ratio Discontinued 03/25/2002 COVID-19 Vaccine Completed 01/30/2023, 05/23/2021 HPV (Gardasil) Vaccine Aged Out No lo nger eligible based on patient's age to complete this topic MENINGOCOCCAL (MENACTRA/MENVEO) Aged Out No longer eligible based on patient's age to complete this topic documented as of this encounter Medical Devices Not on filedocumented as of this encounter Advance Directives * Full Code (Latest Code Status on File) Date Activated Date Inactivated Comments 02/11/2023 1:18 AM 02/13/2023 6:47 PM This order reflects the patients wishes and were consensually agreed upon. Question Answer Comments Discussion of Advance Directives occurred with: Patient Care Teams Dispute Resolution Specialist Relationship Specialty Start Date End Date Maki Peterson MD [address] [place] [address] KALA KRAUS [id number] PCP - General Internal Medicine 07/30/18 documented as of this encounter
--- NOTE | 2023-11-13 08:30 | Hospitalist Progress Note ---
"Date of Service November 13, 2023 Assessment & Plan (1) Hyperkalemia: Plan: Hyperkalemia | ESRD on Dialysis -Potassium 6.0 on arrival -Received calcium gluconate, IV insulin in ED. Received 40 IV Lasix, additional Bumex ordered -Plan to recheck metabolic panel in a.m. -Monitor on telemetry -Follows with nephrology/Dr. Miranda, will consult for dialysis(scheduled MWF at [facility]) continue cinacalcet needs volume off to advane toward dry weight (2) (HFpEF) heart failure with preserved ejection fraction: Plan: BNP in ED was 1930 -Received Lasix 40 IV in ED, will order an addition 4mg IV Bumex( Home Bumex is 4mg po bid) says he make small amount of urine Acute hypoxia on presentation from fluid overload, supplemental oxygen Atrial fibrillation -Paroxysmal a. fib, currently in sinus rhythm -Continue Eliquis, metoprolol (3) Diabetes mellitus type 1 with complications: Plan: -Glycemic management consult ordered -Initial unconotrolled, BSG in ED 432, repeat POC after insulin was 292 anion gap is closed anemia associated with chronic disease/inflamation Plan Hypertension -Continue amlodipine Hypothyroidism -Continue Levothyroxine Anxiety -Continue duloxetine Code Status: Full Code Admission and Anticipated Discharge Date Admission Date: November 12, 2023 Subjective Pt seen in dialysis says not sure why so volume overloaded, denies diet or medicaiton indiscression, weights are difficult to interpret, maybe up 20# if dry weight is in the 220 pound range mild sob, most likely from volume up Physical Exam Physical Exam: regular distant lungs diminished at bases legs 2+ edema bilaterally, stasis dermatitis and scaling Results & Data Results & Data Vital Signs (Past 12 Hours) Vital Signs Temp Pulse Pulse Resp BP BP Pulse Ox 11/13/23 07:30 11/13/23 07:30 74 11/13/23 03:08 97.5 F L 72 20 178/89 H 92 11/13/23 01:37 80 21 91 11/13/23 01:16 78 11/13/23 01:00 11/13/23 00:49 97.5 F L 85 16 183/96 H 91 11/13/23 00:49 97.5 F L 85 20 183/96 H 91 11/12/23 23:30 90 20 183/99 H 98 11/12/23 22:57 85 22 203/112 H 97 11/12/23 21:47 82 11/12/23 21:25 80 18 97 11/12/23 21:15 98.2 F 86 18 183/106 H 88 L O2 Del Method O2 Flow Rate 11/13/23 07:30 Nasal Cannula 2 11/13/23 07:30 11/13/23 03:08 Room Air 11/13/23 01:37 11/13/23 01:16 11/13/23 01:00 Room Air 11/13/23 00:49 Room Air 11/13/23 00:49 Room Air 11/12/23 23:30 Nasal Cannula 11/12/23 22:57 Nasal Cannula 2 11/12/23 21:47 11/12/23 21:25 Nasal Cannula 2 11/12/23 21:15 Room Air Laboratory Results reviewed cbc reviewed chemistry PG Care Time/CCT Total # of Minutes Spent Total Time Spent with Patient: Total time spent is greater than 50% in coordination of care (as documented) at patient's floor/unit and/or counseling patient: Coding Level of Care Code 39690 SUB INP/OBS CARE 2/35MIN Diagnoses Hyperkalemia E87.5 (HFpEF) heart failure with preserved ejection fraction I50.30 Diabetes mellitus type 1 with complications E10.8"
[2023-11-13] MEDS: amLODIPine BESYLATE 5 MG TAB PO SCH (08:32)
[2023-11-13] MEDS: ATORVASTATIN 40 MG TAB PO SCH (08:33)
[2023-11-13] MEDS: PANCREAZE (LIPASE 10,500U) CAP PO SCH (08:34)
[2023-11-13] MEDS: APIXABAN 5 MG TABLET PO SCH (08:34)
[2023-11-13] MEDS: DULoxetine HCL 60 MG CAP PO SCH (08:34)
[2023-11-13] MEDS: METOPROLOL SUCC 50MG EXT REL TAB PO SCH (08:34)
[2023-11-13] MEDS: PREGABALIN 25 MG CAP PO SCH (08:36)
[2023-11-13 10:15] LABS: Basophils # (auto) 0.02 K/uL (0.00-0.20); Basophils % (auto) 0.3 %; Eosinophils # (auto) 0.16 K/uL (0.00-0.50); Eosinophils % (auto) 2.7 %; Hematocrit (blood only) 26.9 % (42.0-52.0); Hemoglobin 8.5 g/dl (14.0-18.0); Immature Granulocytes # (auto) 0.01 K/uL (0.01-0.20); Immature Granulocytes % (auto) 0.2 %; Lymphocytes # (auto) 0.95 K/uL (1.20-3.40); Lymphocytes % (auto) 16.1 %; Mean Corpuscular Hemoglobin 27.4 pg (25.0-34.0); Mean Corpuscular Hgb Conc 31.6 g/dL (32.0-36.0); Mean Corpuscular Volume 86.8 fL (80.0-100.0); Mean Platelet Volume 11.7 fL (9.4-12.4); Monocytes % (auto) 6.8 %; Neutrophils # (auto) 4.36 K/uL (1.40-6.50); Neutrophils % (auto) 73.9 %; Platelet Count 103 K/uL (130-400); RDW Coefficient of Variation 16.3 % (11.5-14.5); RDW Standard Deviation 50.7 fL (36.4-46.3)
[2023-11-13] MEDS: EPOETIN ALFA 40,000 UNITS/ML VIAL IV STA (10:25)
--- NOTE | 2023-11-13 10:25 | Nephrology Consultation ---
Date of Consultation November 13, 2023 Assessment & Plan (1) ESRD (end stage renal disease): (2) Hyperkalemia: (3) Anemia: (4) Fluid overload: (5) Fatigue: Plan End-stage renal disease on hemodialysis presented with ongoing cough and generalized weakness for 2 weeks. K was 6.0. Has functioning AV fistula. He is about 3 kg above his dry weight although clinically he looks much more volume overloaded, quite possible that he has been losing weight and will need to adjust dry weight down -- Will do 4 hours hemodialysis today with 2K bath, UF 3 to 3.5 L as tolerated, aim to decrease dry weight to 110 kg if possible. -- fluid restriction to less than 1 L per day, low-potassium diet, left arm nephrology precaution. --Epogen 40,000 units IV x 1 dose today. -- Dose medications for eGFR less than 10, recommend decreasing gabapentin to maximum 300 mg daily. --Continue on Sensipar 60 mg daily, renal caps daily, start on Renvela 1 tab 3 times daily with meals -- Mr. Snell reports feeling much better this morning after using CPAP last night and as an outpatient has been having difficulty scheduling sleep study, please consider trying to schedule outpatient sleep study if possible Thank you for allowing me to participate in your patient's care. History of Present Illness Reason for Consultation: ESKD on HD Attending Physician: Jamie Lr MD History of Present Illness Ventura Snell is a 43-year-old male with past medical history significant for end-stage kidney disease on hemodialysis, hypertension, diabetes, GERD, presented to the hospital with ongoing cough for more than 2 weeks, shortness of breath and generalized weakness.. Nephrology consult was requested to provid e emergency dialysis for correction of hyperkalemia. electronic medical records were reviewed in detail during patient's visit. Juan Jose presented to ER yesterday with ongoing cough for more than 2 weeks associated with occasional shortness of breath and difficulty lying flat as well as generalized weakness. Blood pressure has been running high, room air oxygen saturation was 88. Chest x-ray showed moderate pulmonary vascular congestion. Lab was notable for hemoglobin 8.5. BNP was elevated at 2000. Potassium was 6.0, blood sugar above 400. Viral serology was negative. He had multiple ER v isit over last 2 months with different symptoms but last 2-year visit about the last 2 to 3 weeks was because of ongoing cough. He had dialysis Saturday as his regular schedule, he tend to have high weight gain in between dialysis. Clinically he looked volume overloaded and he was more than 3 kg above his dry weight which has been 112 kg as of recent. He reports that recently there was concern that he may have sleep apnea and waiting to have sleep study done. But he reports after having CPAP last night he has been feeling much better this morning. Juan Jose has end-stage renal disease secondary to diabetic nephropathy, has been on hemodialysis Saturday, Saturday, Saturday at [facility]. His estimated dry weight is 112 kg as he has been eating healthy and trying to lose weight to be eligible for kidney transplant. He generally has tendency for high weight gain in between dialysis. He does not make much urine anymore, has been taking Bumex 4 mg twice a day. Has h/o chronic diarrhea about 5-6 times per day, during last admission had extensive workup, unremarkable, usually takes Imodium. He reports overall feeling better, continues to have some cough but denies chest pain or significant shortness of breath while he is wearing nasal cannula oxygen. Allergies Allergy/AdvReac Type Severity Reaction Status Date / Time lisinopril AdvReac Intermediate COUGH Verified 11/12/23 23:45 Home Medications Medication Instructions Recorded Confirmed Type OneTouch Delica Lancets 33 gauge #400 ea 10/16/19 11/12/23 Rx (lancets) lancets 33 gauge (OneTouch Delica #400 ea 01/28/23 11/12/23 Rx Plus Lancet) acetone (urine) test (Ketostix 01/29/23 11/12/23 History strips) cinacalcet 60 mg tablet 60 mg PO DAILY #30 tabs 02/15/23 11/12/23 Rx atorvastatin 80 mg tablet (Lipitor) 80 mg PO DAILY #90 tabs 03/05/23 11/12/23 Rx apixaban 5 mg tablet (Eliquis) 5 mg PO BID 30 days #180 tabs 03/20/23 11/12/23 Rx blood-glucose meter,continuous #1 ea 03/20/23 11/12/23 Rx (Dexcom G7 Officer Lieutenant) insulin detemir U-100 100 unit/mL 20 unit subcut PM 03/20/23 11/12/23 History (3 mL) subcutaneous pen amlodipine 10 mg tablet 10 mg PO DAILY #90 tabs 04/03/23 11/12/23 Rx blood sugar diagnostic (OneTouch #400 ea 05/21/23 11/12/23 Rx Verio test strips) blood-glucose meter (OneTouch #1 ea 05/21/23 11/12/23 Rx Verio Flex Meter) metoprolol succinate 50 mg 50 mg PO BID #180 tabs 05/21/23 11/12/23 Rx tablet,extended release 24 hr ammonium lactate 12 % topical cream 1 applic topical DAILY PRN Dry Skin 06/07/23 11/12/23 History duloxetine 60 mg capsule,delayed 60 mg PO QAM #90 caps 06/14/23 11/12/23 Rx release (Cymbalta) insulin aspart U-100 100 unit/mL 20 unit (0.2 mL) subcut TID #162 mL 07/12/23 11/12/23 Rx (3 mL) subcutaneous pen pen needle, diabetic 29 gauge x #400 ea 07/12/23 11/12/23 Rx 1/2" (Comfort EZ Pen Garrett) bumetanide 2 mg tablet 4 mg (2 x 2 mg) PO BID #360 tabs 08/08/23 11/12/23 Rx tramadol 50 mg tablet 50 - 100 mg (1 - 2 x 50 mg) PO BID 08/19/23 11/12/23 Rx PRN pain #120 tabs blood-glucose sensor (Dexcom G7 #3 ea 08/27/23 11/12/23 Rx Sensor device) levothyroxine 75 mcg tablet 75 mcg PO DAILYBB 10/05/23 11/12/23 History meclizine 25 mg tablet 25 mg PO TID PRN dizziness or 10/10/23 11/12/23 Rx vertigo #30 tabs pregabalin 25 mg capsule (Lyrica) 25 mg PO BID #60 caps 10/18/23 11/12/23 Rx [id number]-uwoetixp-phcweyb 2 cap PO .COMPLEX #180 caps 11/05/23 11/12/23 Rx 36,000-114,000-180,000 unit capsule,delay rel (Creon) Patient History Medical History Anxiety ESRD (end stage renal disease) on dialysis CHF (congestive heart failure) Atrial fibrillation ESRD (end stage renal disease) requiring hemodialysis. MWF at [facility]. Hypertension Type 1 diabetes Chronic venous insufficiency Macular edema Vitamin D deficiency Diabetic neuropathy Type 1 diabetes Anxiety and depression Anemia CHF (congestive heart failure) Hypertension Hypothyroid ESRD (end stage renal disease) Atrial fibrillation Dyslipidemia Thrombosis of arteriovenous dialysis fistula (~02/15/20) Erectile dysfunction GERD (gastroesophageal reflux disease) Well controlled and stable Surgical History History of esophagogastroduodenoscopy (EGD) H/O detached retina repair S/P arteriovenous (AV) fistula creation left side, unable to use Family History Mother Diabetes Coronary heart disease Hypertension Father Coronary heart disease Hypertension Brother Coronary heart disease Kidney disease Uncle Colorectal cancer Grandmother Diabetes Aunt Diabetes Unknown Dyslipidemia Grandfather (Maternal) Diabetes Other Cancer No family history of adverse response to anesthesia Social History Smoking Status: Never smoker Second Hand Exposure: No; Do You Dip or Chew Tobacco: No; Hx Alcohol Use: No Hx Substance Use: No Preferred Language: Marshallese Communication Ability: Effective Visual Impairment: No Limitations Hearing Ability: Normal Slab Worker Required: No Beliefs That Will Affect Care: None marital status: Single Current Living Situation: Alone Current Living Situation Comment: Brother 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 Physical Exam Constitutional: WD/WN, vitals as above no acute distress Neck: normal visual inspection Respiratory: Auscultation: + diminished lung sounds; no wheezes Cardiovascular: Rate/Rhythm: regular rate and regular rhythm Heart Sounds: normal S1 and normal S2 Extremities: + edema and + AV fistula (L BC AVF) Gastrointestinal (Abdomen): Inspection/Auscultation: abdomen normal to inspection Musculoskeletal: Extremities: extremities normal to inspection Skin: normal turgor, + crusts and + dry skin; no rashes Neurologic: no focal motor deficits Psychiatric: Orientation: alert and oriented x 3 Affect: euthymic affect Results & Data Vital Signs (Past 12 Hours) Vital Signs Temp Pulse Pulse Resp BP Pulse Ox O2 Del Method 11/13/23 07:30 Nasal Cannula 11/13/23 07:30 74 11/13/23 07:20 36.5 C 88 18 163/87 H 88 L Room Air 11/13/23 03:08 36.4 C L 72 20 178/89 H 92 Room Air 11/13/23 01:37 80 21 91 11/13/23 01:16 78 11/13/23 01:00 Room Air 11/13/23 00:49 36.4 C L 85 16 183/96 H 91 Room Air 11/13/23 00:49 36.4 C L 85 20 183/96 H 91 Room Air 11/12/23 23:30 90 20 183/99 H 98 Nasal Cannula 11/12/23 22:57 85 22 203/112 H 97 Nasal Cannula O2 Flow Rate 11/13/23 07:30 2 11/13/23 07:30 11/13/23 07:20 11/13/23 03:08 11/13/23 01:37 11/13/23 01:16 11/13/23 01:00 11/13/23 00:49 11/13/23 00:49 11/12/23 23:30 11/12/23 22:57 2 PG Care Time/CCT Total # of Minutes Spent Total Time Spent with Patient: Total time spent is greater than 50% in coordination of care (as documented) at patient's floor/unit and/or counseling patient: Coding Level of Care Code 63784 INT INP/OBS CARE 3/75MIN Diagnoses ESRD (end stage renal disease) N18.6 Hyperkalemia E87.5 Anemia N18.6; D63.1; Z99.2 Anemia type: due to chronic kidney disease Chronic kidney disease stage: on chronic dialysis Fluid overload E87.70 Fatigue R53.83 Fatigue type: unspecified (3) Anemia Anemia type: due to chronic kidney disease Chronic kidney disease stage: on chronic dialysis Qualified Code(s): N18.6 - End stage renal disease; D63.1 - Anemia in chronic kidney disease; Z99.2 - Dependence on renal dialysis (5) Fatigue Fatigue type: unspecified Qualified Code(s): R53.83 - Other fatigue
[2023-11-13 10:28] LABS: Albumin Level 3.9 gm/dl (3.4-5.0); BUN Creatinine Ratio 6.2 (10-20); Calcium 10.2 mg/dl (8.6-10.3); Creatinine Clr Calc Pharmacy 12.7 ml/min; Est GFR (African American) 7.6 ml/min; Est GFR (Non-African American) 6.5 ml/min; Phosphorus 5.3 mg/dl (2.5-4.9); Potassium 5.7 mmol/L (3.5-5.1)
[2023-11-13] MEDS: ALBUTEROL 0.5% NEB SOLN 2.5 MG/0.5 ML VIAL NEB STA (10:40)
[2023-11-13] MEDS: ALBUTEROL 0.5% NEB SOLN 2.5 MG/0.5 ML VIAL NEB SCH (13:03)
--- NOTE | 2023-11-13 14:19 | Pharmacy Report ---
Pharmacy Glycemic Short Note 2 - Date of Service November 13, 2023 - Glycemic Short BSG Results (Last 24 hours): 11/12/23 11/12/23 11/13/23 21:35 22:56 00:23 Glucose 432 H* POC Glucose 413 H* 292 H 11/13/23 11/13/23 11/13/23 01:03 03:39 07:31 Glucose POC Glucose 253 H 189 H 122 H 11/13/23 09:57 Glucose 143 H POC Glucose OUTPATIENT ANTIDIABETIC REGIMEN: * Levemir 20 units SC qPM * Novolog 20 units SC TIDM HbA1c: 7.3% (10/14/23) * However, this result is likely somewhat unreliable in ESRD patients d/t interactions between the A1c analyzing technique and high levels of urea in ESRD, reduced RBC life span, iron deficiency anemia, and EPO administration. HbA1c > 7.5% in ESRD patient may overestimate the extent of hyperglycemia in ESRD patients. ASSESSMENT: * MG is a 43 year old male with ESRD on HD and T1DM presenting with hyperkalemia * Blood sugars elevated on presentation, but trended down nicely overnight * Hemodialysis ordered for today * Patient's home dose ordered last evening, but patient refused and requested lower dose (50%) * Will utilize scale for today PLAN FOR INPATIENT GLYCEMIC CONTROL: * Basal insulin * Lantus 10-15-20 units SQ HS (see EHR for details) * Bolus insulin * NovoLog per scale ACHS or Q6hrs while NPO * Goal Range: Low 110 mg/dL - High 140 mg/dL * Correction Factor: 15 mg/dL/unit * Nutritional / Prandial insulin per carb ratio of 1 unit per 5 grams CHO consumed
[2023-11-13] MEDS: NEPHROCAPS PO SCH (14:50)
[2023-11-13] MEDS: SEVELAMER CARBONATE 800 MG TAB PO SCH (14:50)
[2023-11-13] MEDS: CINACALCET HCL 30 MG TAB PO SCH (14:50)
--- NOTE | 2023-11-13 19:45 | Electrocardiogram Report ---
Test Reason : Blood Pressure : / mmHG Vent. Rate : 082 BPM Atrial Rate : 082 BPM P-R Int : 140 ms QRS Dur : 090 ms QT Int : 384 ms P-R-T Axes : 026 000 079 degrees QTc Int : 448 ms Normal sinus rhythm Nonspecific ST and T wave abnormality Abnormal ECG When compared with ECG of 13-OCT-2023 19:21, Inverted T waves have replaced nonspecific T wave abnormality in Lateral leads Confirmed by Pasquale Zhang ([id number]) on 11/13/2023 7:45:39 PM Referred By: REFERRED SELF Confirmed By:Pasquale Zhang
--- NOTE | 2023-11-13 19:55 | Billing Data ---
Date of Service November 12, 2023 Coding Level of Care Code 57946 INT INP/OBS CARE
[2023-11-13] MEDS: LANTUS PER UNIT CHARGE SQ SCH (20:22)
[2023-11-13] MEDS ORDERED: LANTUS PER UNIT CHARGE SQ SCH (21:00)
[2023-11-14] MEDS: traMADol HCL 50 MG TABLET PO PRN (01:11)
[2023-11-14 06:38] LABS: Basophils # (auto) 0.02 K/uL (0.00-0.20); Basophils % (auto) 0.4 %; Eosinophils # (auto) 0.12 K/uL (0.00-0.50); Eosinophils % (auto) 2.5 %; Hematocrit (blood only) 26.2 % (42.0-52.0); Hemoglobin 8.2 g/dl (14.0-18.0); Immature Granulocytes # (auto) 0.02 K/uL (0.01-0.20); Immature Granulocytes % (auto) 0.4 %; Lymphocytes # (auto) 1.03 K/uL (1.20-3.40); Lymphocytes % (auto) 21.6 %; Mean Corpuscular Hgb Conc 31.3 g/dL (32.0-36.0); Mean Corpuscular Volume 89.4 fL (80.0-100.0); Mean Platelet Volume 11.6 fL (9.4-12.4); Monocytes % (auto) 8.4 %; Neutrophils # (auto) 3.18 K/uL (1.40-6.50); Neutrophils % (auto) 66.7 %; Platelet Count 124 K/uL (130-400); RDW Coefficient of Variation 16.2 % (11.5-14.5); RDW Standard Deviation 52.8 fL (36.4-46.3); Red Blood Count 2.93 M/uL (4.70-6.10); White Blood Count 4.77 K/ul (4.8-10.8)
[2023-11-14 07:11] LABS: Albumin Level 3.7 gm/dl (3.4-5.0); BUN Creatinine Ratio 4.9 (10-20); Calcium 9.3 mg/dl (8.6-10.3); Creatinine Clr Calc Pharmacy 17.8 ml/min; Est GFR (African American) 11.6 ml/min; Phosphorus 3.7 mg/dl (2.5-4.9); Potassium 4.6 mmol/L (3.5-5.1)
--- NOTE | 2023-11-14 10:43 | Nephrology Progress Note ---
Date of Service November 14, 2023 Assessment & Plan (1) ESRD (end stage renal disease): (2) Hyperkalemia: (3) Anemia: (4) Fluid overload: (5) Fatigue: Plan End-stage renal disease on hemodialysis presented with ongoing cough and generalized weakness for 2 weeks. K was 6.0. Has functioning AV fistula. He is about 3 kg above his dry weight although clinically he looks much more volume overloaded, quite possible that he has been losing weight and will need to adjust dry weight down. Had dialysis yesterday, electrolyte acceptable volume status much improved. --Dialysis tomorrow, decrease dry weight to 110 kg and continue to challenge as an outpatient as he has been trying to lose weight to be eligible for transplant. -- fluid restriction to less than 1 L per day, low-potassium diet, left arm nephrology precaution. --Epogen 40,000 units IV x 1 dose given yesterday. --Dose medications for eGFR less than 10, recommend decreasing gabapentin to maximum 300 mg daily. --Continue on Sensipar 60 mg daily, renal caps daily, start on Renvela 1 tab 3 times daily with meals Admission and Anticipated Discharge Date Admission Date: November 12, 2023 Subjective Juan Jose was seen and evaluated this morning. He reports feeling much better after dialysis yesterday and has been using CPAP. Blood pressure improved. Volume status acceptable. Electrolyte acceptable. Review of Systems Review of Systems: Detailed review of system was done and pertinent positives and negatives are mentioned above. Physical Exam Constitutional: WD/WN, vitals as above no acute distress Neck: normal visual inspection Respiratory: Auscultation: + diminished lung sounds; no wheezes Cardiovascular: Rate/Rhythm: regular rate and regular rhythm Heart Sounds: normal S1 and normal S2 Extremities: + edema and + AV fistula (L BC AVF) Skin: + crusts and + dry skin; no rashes Neurologic: no focal motor deficits Psychiatric: Orientation: alert and oriented x 3 Affect: euthymic affect Results & Data Vital Signs (Past 12 Hours) Vital Signs Temp Pulse Pulse Pulse Resp BP Pulse Ox 11/14/23 08:00 36.7 C 87 78 20 141/66 H 96 11/14/23 07:25 75 11/14/23 07:14 74 18 98 11/14/23 02:56 36.7 C 81 18 168/79 H 97 11/14/23 00:39 80 17 98 11/13/23 22:41 86 O2 Del Method O2 Flow Rate 11/14/23 08:00 Nasal Cannula 2 11/14/23 07:25 11/14/23 07:14 Nasal Cannula 2 11/14/23 02:56 Nasal Cannula 2 11/14/23 00:39 Room Air 11/13/23 22:41 PG Care Time/CCT Total # of Minutes Spent Total Time Spent with Patient: Total time spent is greater than 50% in coordination of care (as documented) at patient's floor/unit and/or counseling patient: Coding Level of Care Code 92719 SUB INP/OBS CARE 2MIN Diagnoses ESRD (end stage renal disease) N18.6 Hyperkalemia E87.5 Anemia N18.6; D63.1; Z99.2 Anemia type: due to chronic kidney disease Chronic kidney disease stage: on chronic dialysis Fluid overload E87.70 Fatigue R53.83 Fatigue type: unspecified (3) Anemia Anemia type: due to chronic kidney disease Chronic kidney disease stage: on chronic dialysis Qualified Code(s): N18.6 - End stage renal disease; D63.1 - Anemia in chronic kidney disease; Z99.2 - Dependence on renal dialysis (5) Fatigue Fatigue type: unspecified Qualified Code(s): R53.83 - Other fatigue
--- NOTE | 2023-11-14 12:10 | Discharge Summary ---
Discharge Summary Date of Service November 14, 2023 Principal Dx & Hospital Course #1 = Principal Diagnosis (1) Hyperkalemia: Corrected with medications and dialysis (2) Fluid overload: Acute on chronic HFpEF in the setting of ESRD on HD -BNP in ED was 1930 -Patient endorses some dietary indiscretion with more snacking lately -Received Lasix 40 IV in ED, then received an additional 4mg IV Bumex, now on oral Bumex Corrected with removing excess fluid with dialysis as well New dry weight will be 110 kg as he is likely lost weight and needs to reset dry weight Appreciate nephrology management Continue Bumex (3) Hypoxia: Resolved after dialysis with removal of fluid Two-step walk test normal He trialed CPAP while here and felt much less daytime drowsiness after using it- needs outpatient sleep study (4) Hyperglycemia: Resolved with insulin (5) Acute dyspnea: Related to fluid overload-resolved (6) Anemia: Hemoglobin low at 8.2, given Epogen while here Follow as an outpatient with nephrology Platelets also mildly low-start nephro caps which have B12 in them as could have low B12. Follow-up as an outpatient (7) Diabetic nephropathy associated with type 1 diabetes mellitus: Continue Lyrica and consider slight increase in dose due to persistent symptoms, renally dose medications Continue Cymbalta Plan Hypertension -Continue amlodipine Hypothyroidism -Continue Levothyroxine, follow TSH as an outpatient Atrial fibrillation -Paroxysmal a. fib, currently in sinus rhythm -Continue Eliquis, metoprolol Anxiety -Continue home meds Type 1 Diabetes Mellitus -Continue outpatient follow-up Disposition-stable for discharge to home Notes For Next Care Provider Needs to have outpatient sleep study rescheduled Medication Changes From Visit Added Nephrocaps 1 Daily Added sevelamer 800 mg p.o. 3 times daily-he was actually already taking this at home but it was not on his medication list and he was taking medication from a family member who had leftovers-new prescription sent to the pharmacy Admission HPI Per Admitting Provider Ventura Snell is a 43 year-old male with past medical history including ESRD on hemodialysis, type 1 diabetes, CHF, HTN who presents for ongoing cough. He states he has not missed any dialysis sessions, receives dialysis MWF at [facility] in [place]. He denies any noticeable changes in lower extremity edema, but has had a worsening cough over the past week. He states that he receives food from "[employer]" and notes eating more snacks like peanut granola bars lately. He states that he sleeps in a recliner/chair as he cannot lay flat due to dyspnea. States he does not wear oxygen at baseline, states he is trying to get a sleep study done because he has been told that he likely has sleep apnea. He denies changes in bowel or bladder habits, no chest pain. Patient states that he is full code status, requests his brother to make medical decisions if he is unable to make his own medical decisions. ED Course: -Calcium gluconate, IV insulin -EKG, chest XR Discharge Exam Constitutional WD/WN, vitals as above Respiratory normal respiratory effort, lungs clear to auscultation Cardiovascular Rate/Rhythm: regular rate and regular rhythm Heart Sounds: no murmur Extremities: + edema (Chronic woody edema of legs bilaterally) Psychiatric A+Ox3, euthymic affect Updated Medication List Medication Instructions Recorded Confirmed Type OneTouch Delica Lancets 33 gauge #400 ea 10/16/19 11/12/23 Rx (lancets) lancets 33 gauge (OneTouch Delica #400 ea 01/28/23 11/12/23 Rx Plus Lancet) acetone (urine) test (Ketostix 01/29/23 11/12/23 History strips) cinacalcet 60 mg tablet 60 mg PO DAILY #30 tabs 02/15/23 11/12/23 Rx atorvastatin 80 mg tablet (Lipitor) 80 mg PO DAILY #90 tabs 03/05/23 11/12/23 Rx apixaban 5 mg tablet (Eliquis) 5 mg PO BID 30 days #180 tabs 03/20/23 11/12/23 Rx blood-glucose meter,continuous #1 ea 03/20/23 11/12/23 Rx (Dexcom G[employer]) insulin detemir U-100 100 unit/mL 20 unit subcut PM 03/20/23 11/12/23 History (3 mL) subcutaneous pen amlodipine 10 mg tablet 10 mg PO DAILY #90 tabs 04/03/23 11/12/23 Rx blood sugar diagnostic (BooktropeTouch #400 ea 05/21/23 11/12/23 Rx Verio test strips) blood-glucose meter (BooktropeTouch #1 ea 05/21/23 11/12/23 Rx Verio Flex Meter) metoprolol succinate 50 mg 50 mg PO BID #180 tabs 05/21/23 11/12/23 Rx tablet,extended release 24 hr ammonium lactate 12 % topical cream 1 applic topical DAILY PRN Dry Skin 06/07/23 11/12/23 History duloxetine 60 mg capsule,delayed 60 mg PO QAM #90 caps 06/14/23 11/12/23 Rx release (Cymbalta) insulin aspart U-100 100 unit/mL 20 unit (0.2 mL) subcut TID #162 mL 07/12/23 11/12/23 Rx (3 mL) subcutaneous pen pen needle, diabetic 29 gauge x #400 ea 07/12/23 11/12/23 Rx 1/2" (Comfort EZ Pen [place]) bumetanide 2 mg tablet 4 mg (2 x 2 mg) PO BID #360 tabs 08/08/23 11/12/23 Rx tramadol 50 mg tablet 50 - 100 mg (1 - 2 x 50 mg) PO BID 08/19/23 11/12/23 Rx PRN pain #120 tabs blood-glucose sensor (Dexcom G7 #3 ea 08/27/23 11/12/23 Rx Sensor device) levothyroxine 75 mcg tablet 75 mcg PO DAILYBB 10/05/23 11/12/23 History meclizine 25 mg tablet 25 mg PO TID PRN dizziness or 10/10/23 11/12/23 Rx vertigo #30 tabs pregabalin 25 mg capsule (Lyrica) 25 mg PO BID #60 caps 10/18/23 11/12/23 Rx rsszfq-tuygofwq-eqxtjpn 2 cap PO .COMPLEX #180 caps 11/05/23 11/12/23 Rx 36,000-114,000-180,000 unit capsule,delay rel (Creon) sevelamer carbonate 800 mg tablet 800 mg PO TIDM #90 tabs 11/14/23 Rx vitamin B complex and vitamin C 1 cap PO QAM #30 caps 11/14/23 Rx no.20-folic acid 1 mg capsule (Renal Caps) Hospital Stay Data Consultations 11/12/23 22:59 ED Decision to Admit Stat 11/13/23 01:09 Consult Nephrology Routine Pending Results Patient Have Any Pending Studies at Discharge: No Discharge Instructions Given to Patient (Per Discharging Provider) You were admitted with volume overload and had extra fluid removed during dialysis. Your new dry weight will be 110 kg. You were weaned off oxygen and do not require any extra oxygen at the time of discharge. You had a trial of CPAP here which made you feel much better. Please continue to follow-up for an outpatient sleep study in order to obtain a CPAP as an outpatient. Total Time Total Time Spent Total Time Spent (In Minutes): 35 minutes Total Time Includes: Examination of the Patient, Discharge Planning, Medication Reconciliation and Communication With Other Providers (Nephrology) Coding Level of Care Code 25426 INP/OBS DISCH >30 MIN Diagnoses Hyperkalemia E87.5 Fluid overload E87.70 Hypervolemia type: unspecified Hypoxia R09.02 Hyperglycemia R73.9 Acute dyspnea R06.00 Anemia N18.6; D63.1; Z99.2 Anemia type: due to chronic kidney disease Chronic kidney disease stage: on chronic dialysis Diabetic nephropathy associated with type 1 diabetes mellitus E10.21
== END 2023-11-14 13:05 | disposition home or self-care (01) | DRG 291 ==
LOC: ED 21:06 → 2S 23:57 → SUATTDRO 23:57 → 2S 11-13 00:36

== ENCOUNTER 2023-11-26 07:44 | Observation (INO) ==
--- NOTE | 2023-11-26 07:56 | Emergency Department Note ---
History of Present Illness General Chief complaint: Shortness of Breath/Dyspnea Time Seen by Provider: 11/26/23 07:52 History of Present Illness NAME: VIJAYA HAMILTON AGE: 43 SEX: M : 1980 ARRIVES VIA: Ambulance INFORMANT: Patient ED PROVIDER(S): KATJA Serrano, Bev Grider MD The patient is a 43-year-old male who arrives to the emergency department for evaluation of shortness of breath. The patient is ESRD, with hemodialysis Saturday. He reports since last night he became short of breath, he went to sleep and awoke this morning with worsening of his symptoms. He denies any chest pain, nausea, vomiting, diarrhea. He reports he received dialysis yesterday, with only 1.5 L removed. He states no significant worsening of his bilateral lower extremity edema, was saturating in the high 90% range, however he is requesting nasal cannula assistance. Home Medications Medication Instructions Recorded Confirmed Type OneTouch Delica Lancets 33 gauge #400 ea 10/16/19 11/12/23 Rx (lancets) lancets 33 gauge (OneTouch Delica #400 ea 01/28/23 11/12/23 Rx Plus Lancet) acetone (urine) test (Ketostix 01/29/23 11/12/23 History strips) cinacalcet 60 mg tablet 60 mg PO DAILY #30 tabs 02/15/23 11/26/23 Rx atorvastatin 80 mg tablet (Lipitor) 80 mg PO DAILY #90 tabs 03/05/23 11/26/23 Rx apixaban 5 mg tablet (Eliquis) 5 mg PO BID 30 days #180 tabs 03/20/23 11/26/23 Rx blood-glucose meter,continuous #1 ea 03/20/23 11/12/23 Rx (Dexcom G7 Award Clerk) insulin detemir U-100 100 unit/mL 10 unit subcut PM 03/20/23 11/26/23 History (3 mL) subcutaneous pen amlodipine 10 mg tablet 10 mg PO DAILY #90 tabs 04/03/23 11/26/23 Rx blood sugar diagnostic (OneTouch #400 ea 05/21/23 11/12/23 Rx Verio test strips) blood-glucose meter (OneTouch #1 ea 05/21/23 11/12/23 Rx Verio Flex Meter) metoprolol succinate 50 mg 50 mg PO BID #180 tabs 05/21/23 11/26/23 Rx tablet,extended release 24 hr ammonium lactate 12 % topical cream 1 applic topical DAILY PRN Dry Skin 06/07/23 11/26/23 History duloxetine 60 mg capsule,delayed 60 mg PO QAM #90 caps 06/14/23 11/26/23 Rx release (Cymbalta) insulin aspart U-100 100 unit/mL 20 unit (0.2 mL) subcut TID #162 mL 07/12/23 11/26/23 Rx (3 mL) subcutaneous pen pen needle, diabetic 29 gauge x #400 ea 07/12/23 11/12/23 Rx 1/2" (Comfort EZ Pen [place]) bumetanide 2 mg tablet 4 mg (2 x 2 mg) PO BID #360 tabs 08/08/23 11/26/23 Rx blood-glucose sensor (Dexcom G7 #3 ea 08/27/23 11/12/23 Rx Sensor device) levothyroxine 75 mcg tablet 75 mcg PO DAILYBB 10/05/23 11/26/23 History meclizine 25 mg tablet 25 mg PO TID PRN dizziness or 10/10/23 11/26/23 Rx vertigo #30 tabs pregabalin 25 mg capsule (Lyrica) 25 mg PO BID #60 caps 10/18/23 11/26/23 Rx pjobka-jopymdxy-ecmugrn 2 cap PO .COMPLEX #180 caps 11/05/23 11/26/23 Rx 36,000-114,000-180,000 unit capsule,delay rel (Creon) sevelamer carbonate 800 mg tablet 800 mg PO TIDM #90 tabs 11/14/23 11/26/23 Rx vitamin B complex and vitamin C 1 cap PO QAM #30 caps 11/14/23 11/26/23 Rx no.20-folic acid 1 mg capsule (Renal Caps) tramadol 50 mg tablet 50 - 100 mg (1 - 2 x 50 mg) PO BID 11/19/23 11/26/23 Rx PRN pain #120 tabs Allergies Allergy/AdvReac Type Severity Reaction Status Date / Time lisinopril AdvReac Intermediate COUGH Verified 11/12/23 23:45 Past Med/Surg History Problem List (Updated 11/26/23 @ 15:24 by KATJA Astorga) Essential hypertension Diabetic neuropathy Chronic venous insufficiency Hyperkalemia Acute on chronic diastolic CHF (congestive heart failure) (Acute) ESRD (end stage renal disease) (Acute) requiring hemodialysis. MWF at [facility]. 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) heart failure with preserved ejection fraction Fatigue (Acute) Anemia (Acute) Diabetic nephropathy associated with type 1 diabetes mellitus Background diabetic retinopathy associated with type 1 diabetes mellitus Loss of protective sensation of skin of foot Anxiety and depression Anemia due to chronic kidney disease Venous ulcers of both lower extremities (Acute) Abnormal ankle brachial index SIRS (systemic inflammatory response syndrome) (Acute) Central venous catheter in place Dyslipidemia (Chronic) Macular edema (Chronic) Diabetic proliferative retinopathy (Chronic) Dysesthesia (Chronic) Vitamin D deficiency Hypothyroidism Obesity Diabetic peripheral neuropathy associated with type 1 diabetes mellitus (Acute) Chronic venous insufficiency (Chronic) Medical History Anxiety ESRD (end stage renal disease) on dialysis CHF (congestive heart failure) Atrial fibrillation Hypertension Type 1 diabetes Chronic venous insufficiency Macular edema Vitamin D deficiency Diabetic neuropathy Type 1 diabetes Anxiety and depression Anemia CHF (congestive heart failure) Hypertension Hypothyroid ESRD (end stage renal disease) Atrial fibrillation Dyslipidemia Thrombosis of arteriovenous dialysis fistula (~02/15/20) Erectile dysfunction GERD (gastroesophageal reflux disease) Well controlled and stable Surgical History History of esophagogastroduodenoscopy (EGD) H/O detached retina repair S/P arteriovenous (AV) fistula creation left side, unable to use Family History Mother Diabetes Coronary heart disease Hypertension Father Coronary heart disease Hypertension Brother Coronary heart disease Kidney disease Uncle Colorectal cancer Grandmother Diabetes Aunt Diabetes Unknown Dyslipidemia Grandfather (Maternal) Diabetes Other Cancer No family history of adverse response to anesthesia Social History Smoking Status: Never smoker Second Hand Exposure: No; Do You Dip or Chew Tobacco: No; Hx Alcohol Use: No Hx Substance Use: No Preferred Language: Syriac Communication Ability: Effective Visual Impairment: No Limitations Hearing Ability: Normal Social Work Therapist Required: No Beliefs That Will Affect Care: None marital status: Single Current Living Situation: Alone Current Living Situation Comment: Brother 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" How many Children do You have: 0 Feels Safe at Home: Yes Diet: regular Dental Care, Regularly: No Physical Activity Frequency: Does not Exercise Seatbelt Use: always Sunscreen Use: No Assistive Devices: Cane Physical Exam Vital Signs Vital Signs - 24 hr 11/26/23 07:52 11/26/23 07:52 11/26/23 07:52 Temperature 36.8 C Temperature Source Oral Pulse Rate 85 Pulse Rate [Right Finger] Pulse Rhythm Regular Pulse Rhythm [Right Finger] Pulse Strength Normal Pulse Strength [Right Finger] Respiratory Rate 20 Respiratory Effort / Characteristics Non-Labored Spontaneous Non-Labored Spontaneous Respiratory Depth Normal Normal Respiratory Pattern Regular Regular Blood Pressure 173/95 H Blood Pressure [Right Arm] Blood Pressure Mean 121 Blood Pressure Mean [Right Arm] Blood Pressure Position Semi-fowlers Blood Pressure Position [Right Arm] Pulse Oximetry 92 92 Oxygen Delivery Method Room Air Room Air Room Air Oxygen Flow Rate Sepsis Recent Fever Within 48 Hours No Sepsis New/Unexplained Change in Mental Status N/A Sepsis Action Taken by Nursing No Action Required 11/26/23 07:52 11/26/23 08:07 11/26/23 08:14 Temperature 36.8 C Temperature Source Oral Pulse Rate 85 Pulse Rate [Right Finger] 78 Pulse Rhythm Pulse Rhythm [Right Finger] Regular Pulse Strength Pulse Strength [Right Finger] Normal Respiratory Rate 20 Respiratory Effort / Characteristics Non-Labored Spontaneous Respiratory Depth Normal Respiratory Pattern Regular Blood Pressure Blood Pressure [Right Arm] 173/95 H Blood Pressure Mean Blood Pressure Mean [Right Arm] 121 Blood Pressure Position Blood Pressure Position [Right Arm] Semi-fowlers Pulse Oximetry 92 94 Oxygen Delivery Method Room Air Nasal Cannula Oxygen Flow Rate 1 Sepsis Recent Fever Within 48 Hours Sepsis New/Unexplained Change in Mental Status Sepsis Action Taken by Nursing 11/26/23 08:14 Temperature Temperature Source Pulse Rate 85 Pulse Rate [Right Finger] Pulse Rhythm Regular Pulse Rhythm [Right Finger] Pulse Strength Pulse Strength [Right Finger] Respiratory Rate 20 Respiratory Effort / Characteristics Respiratory Depth Respiratory Pattern Blood Pressure Blood Pressure [Right Arm] Blood Pressure Mean Blood Pressure Mean [Right Arm] Blood Pressure Position Blood Pressure Position [Right Arm] Pulse Oximetry 94 Oxygen Delivery Method Nasal Cannula Oxygen Flow Rate 1 Sepsis Recent Fever Within 48 Hours Sepsis New/Unexplained Change in Mental Status Sepsis Action Taken by Nursing VITALS: Vitals are noted on the nurse's note and reviewed by myself. Vital signs stable. GENERAL: 43-year-old male, in no acute distress, nondiaphoretic. SKIN: BLE edema with dry, scaling present. HEAD: Normocephalic atraumatic. NECK: Supple without nuchal rigidity. No JVD. HEART: Regular rate and rhythm without murmurs gallops or rubs. LUNGS: Crackles present at bilateral bases, no wheezes, rales, or ronchi present. No accessory muscule use. ABDOMEN: Positive bowel sounds x 4. Soft, nontender, without masses or organomegaly. Multani sign negative. No guarding or rebound tenderness. MUSCULOSKELETAL: No muscle atrophy, erythema, or edema noted. Full range of motion without joint tenderness in all extremities. No tenderness to palpation. Normal gait. Strength 5/5 throughout. NEURO: Patient was alert and oriented to person place and time. No focal neurological deficits. Course Administered Medications Insulin Aspart (Insulin Aspart Per Unit Charge) 0 units SC ACHS [facility] Stop: 12/26/23 12:42 Last Admin: 11/26/23 13:33 Dose: 8 units Documented By: MICA Co-signed By: VIVIAN Sevelamer Carbonate (Sevelamer Carbonate 800 Mg Tab) 800 mg PO TIDM [facility] Stop: 12/26/23 12:42 Last Admin: 11/26/23 13:29 Dose: 800 mg Documented By: MICA Discontinued Medications Patiromer (Patiromer Calcium Sorbitex 8.4 Gm Pack) 8.4 gm PO ONE ONE Stop: 11/26/23 11:10 Last Admin: 11/26/23 12:34 Dose: 8.4 gm Documented By: MICA Tramadol HCl (Tramadol Hcl 50 Mg Tablet) 50 mg PO NOW STA Stop: 11/26/23 09:47 Last Admin: 11/26/23 10:24 Dose: 50 mg Documented By: HYACINTH Medical Decision Making Differential Diagnosis Pneumonia, pneumothorax, COPD, CHF, infections, cardiac ischemia, pulmonary embolism, musculoskeletal, gastrointestinal, as well as other pathologies. Medical Records Attestation: I reviewed the patient's medical records. Home Medications Current Medication List: was personally reviewed by me Laboratory Data Attestation: I reviewed the patient's lab results. CBC shows leukopenia, with stable anemia, CMP shows creatinine of BUN 51, 8.6, glucose 238, troponin negative, BNP 1670. 11/26/23 12:53 11/26/23 12:53 Lab Results 11/26/23 Range/Units 07:55 WBC 4.11 L (4.8-10.8) K/ul RBC 2.95 L (4.70-6.10) M/uL Hgb 8.4 L (14.0-18.0) g/dl Hct 26.4 L (42.0-52.0) % MCV 89.5 (80.0-100.0) fL MCH 28.5 (25.0-34.0) pg MCHC 31.8 L (32.0-36.0) g/dL RDW Std Deviation 55.0 H (36.4-46.3) fL RDW Coeff of Yuki 16.8 H (11.5-14.5) % Plt Count 99 L (130-400) K/uL MPV 12.3 (9.4-12.4) fL Immature Gran % (Auto) 0.2 % Neut % (Auto) 69.9 % Lymph % (Auto) 17.5 % Geary % (Auto) 9.2 % Eos % (Auto) 2.7 % Baso % (Auto) 0.5 % Neut # (Auto) 2.87 (1.40-6.50) K/uL Lymph # (Auto) 0.72 L (1.20-3.40) K/uL Geary # (Auto) 0.38 (0.11-0.59) K/uL Eos # (Auto) 0.11 (0.00-0.50) K/uL Baso # (Auto) 0.02 (0.00-0.20) K/uL Immature Gran # (Auto) 0.01 (0.01-0.20) K/uL PT 11.9 (9.0-12.0) Seconds INR 1.1 (0.9-1.1) APTT 31 (21-31) Seconds PTT Ratio 1.2 Sodium 135 L (136-145) mmol/L Potassium 5.6 H (3.5-5.1) mmol/L Chloride 92 L (98-107) mmol/L Carbon Dioxide 31 (21-32) mmol/L Anion Gap 12 H (3-11) BUN 51 H (6-23) mg/dl Creatinine 8.30 H* (0.6-1.4) mg/dl Est Cr Clr Drug Dosing 13.2 ml/min Est GFR ( Amer) 8.3 ml/min Est GFR (Non-Af Amer) 7.2 ml/min BUN/Creatinine Ratio 6.1 L (10-20) Glucose 271 H (70-99(Fasting)) mg/dl Calcium 10.0 (8.6-10.3) mg/dl Magnesium 2.2 (1.7-2.4) mg/dl Total Bilirubin 0.8 (0.2-1.0) mg/dl AST 25 (13-39) U/L ALT 21 (7-52) U/L Alkaline Phosphatase 168 H (34-104) U/L Troponin I High Sens 12.4 (0-20) pg/ml B-Natriuretic Peptide 1670 H (0-100) pg/ml Total Protein 7.7 (6.0-8.3) gm/dl Albumin 4.1 (3.4-5.0) gm/dl Globulin 3.6 (2.5-4.0) gm/dl Albumin/Globulin Ratio 1.1 (0.9-2) Imaging Data Attestation: I personally reviewed and interpreted this imaging study as follows: My Impression: Initial chest x-ray per my interpretation shows likely pulmonary edema. Radiologist's Impression: Chest X-Ray 11/26/23 08:08 SINGLE VIEW CHEST CLINICAL HISTORY: Dyspnea. Cough. FINDINGS: 2 AP, portable, upright chest radiographs are compared to study dated 11/12/2023. The heart is enlarged noting atherosclerotic calcification of the thoracic aorta. There is pulmonary vascular congestion. Bilateral airspace opacities likely representing interstitial edema. No large pleural effusion or pneumothorax is seen. The skeletal structures are osteopenic. The bony thorax is grossly intact. IMPRESSION: 1. Cardiomegaly with evidence of congestive failure. 2. Bilateral airspace opacities likely represent pulmonary edema. Correlate clinically for evidence of a superimposed pneumonia. Radiographic follow-up to resolution is recommended. ACT 112: Negative or not required by law. Electronically signed by: Aaron Mcguire M.D. 11/26/2023 8:56 AM ECG Data Attestation: I personally reviewed and interpreted this ECG as follows: Indication: + SOB/dyspnea Rate (beats per minute): 78 Rhythm: + normal sinus ECG [place]: + Normal ECG ST segments: + Normal ST segments Comparison ECG Date: from (10/2023) Change: the following changes noted (improvement from previous) Blood Pressure Blood Pressure Findings: Normal blood pressure MDM Narrative Patient is a 43-year-old male who arrives to the emergency department for the procedure today. Upon evaluation the patient is exhibiting shortness of breath, and is requesting nasal cannula. He is currently satting in the mid to high 90s, however he is requesting supplemental oxygen for comfort. He was placed on 1 L nasal cannula. The patient reported he had dialysis yesterday, however the removed very little volume. A saline lock was established, CBC, CMP, BNP, troponin were obtained. CBC shows leukopenia, with stable anemia, CMP shows creatinine of BUN 51, 8.6, glucose 238, troponin negative, BNP 1670. Chest x- ray per my initial interpretation shows congestive failure with evidence of pulmonary edema. The patient was recently admitted approximately 2 weeks ago for FVOL. I spoke with Dr. Cat from the [facility] hospitalist group who agreed to accept the patient for admission. I attempted to make contact with Dr. Miranda from nephrology to inform him of the patient's admission, via [employer] with no response. Please refer to Dr. Cat's documentation for further patient care. Continuous bus driver/monitor: Order was placed for continuous bus driver/monitor. Patient was placed on the bus driver/monitor. Patient was noted to be in NSR at an initial rate of 85 bpm. Impression & Plan ESRD (end stage renal disease), Acute on chronic diastolic CHF (congestive heart failure) Discharge Plan Visit Data Chief Complaint: Shortness of Breath/Dyspnea ED Provider: Bev Grider ED Midlevel Provider: Carol Obrien Discharge Problem: ESRD (end stage renal disease), Acute on chronic diastolic CHF (congestive heart failure) Discharge Instructions Interventions: ED Discharge Assessment Last Done: 11/26/23 12:43
[2023-11-26 08:31] LABS: Basophils # (auto) 0.02 K/uL (0.00-0.20); Basophils % (auto) 0.5 %; Eosinophils # (auto) 0.11 K/uL (0.00-0.50); Eosinophils % (auto) 2.7 %; Hematocrit (blood only) 26.4 % (42.0-52.0); Hemoglobin 8.4 g/dl (14.0-18.0); Immature Granulocytes # (auto) 0.01 K/uL (0.01-0.20); Immature Granulocytes % (auto) 0.2 %; Lymphocytes # (auto) 0.72 K/uL (1.20-3.40); Lymphocytes % (auto) 17.5 %; Mean Corpuscular Hemoglobin 28.5 pg (25.0-34.0); Mean Corpuscular Hgb Conc 31.8 g/dL (32.0-36.0); Mean Corpuscular Volume 89.5 fL (80.0-100.0); Mean Platelet Volume 12.3 fL (9.4-12.4); Monocytes # (auto) 0.38 K/uL (0.11-0.59); Monocytes % (auto) 9.2 %; Neutrophils # (auto) 2.87 K/uL (1.40-6.50); Neutrophils % (auto) 69.9 %; Platelet Count 99 K/uL (130-400); RDW Coefficient of Variation 16.8 % (11.5-14.5); Red Blood Count 2.95 M/uL (4.70-6.10); White Blood Count 4.11 K/ul (4.8-10.8)
[2023-11-26 08:53] LABS: INR 1.1 (0.9-1.1); Partial Thromboplastin Ratio 1.2; Partial Thromboplastin Time 31 Seconds (21-31); Prothrombin Time 11.9 Seconds (9.0-12.0)
--- NOTE | 2023-11-26 08:58 | XRay Report ---
SINGLE VIEW CHEST CLINICAL HISTORY: Dyspnea. Cough. FINDINGS: 2 AP, portable, upright chest radiographs are compared to study dated 11/12/2023. The heart is enlarged noting atherosclerotic calcification of the thoracic aorta. There is pulmonary vascular c ongestion. Bilateral airspace opacities likely representing interstitial edema. No large pleural effu justine or pneumothorax is seen. The skeletal structures are osteopenic. The bony thorax is grossly inta ct. IMPRESSION: 1. Cardiomegaly with evidence of congestive failure. 2. Bilateral airspace opacities likely represent pulmonary edema. Correlate clinically for evidence o f a superimposed pneumonia. Radiographic follow-up to resolution is recommended. ACT 112: Negative or not required by law. Electronically signed by: Aaron Mcguire M.D. 11/26/2023 8:56 AM
[2023-11-26 09:03] LABS: Albumin Globulin Ratio 1.1 (0.9-2); Albumin Level 4.1 gm/dl (3.4-5.0); BUN Creatinine Ratio 6.1 (10-20); Bilirubin,Total 0.8 mg/dl (0.2-1.0); Creatinine Clr Calc Pharmacy 13.2 ml/min; Est GFR (African American) 8.3 ml/min; Est GFR (Non-African American) 7.2 ml/min; Globulin 3.6 gm/dl (2.5-4.0); Magnesium 2.2 mg/dl (1.7-2.4); Potassium 5.6 mmol/L (3.5-5.1); Total Protein 7.7 gm/dl (6.0-8.3); Troponin I High Sensitivity 12.4 pg/ml (0-20)
--- NOTE | 2023-11-26 10:06 | History & Physical Report ---
Date of Service November 26, 2023 Assessment & Plan (1) Acute on chronic diastolic CHF (congestive heart failure): Plan: Initiate hemodialysis as soon as possible. Monitor intake and output. Continue Bumex. (2) Hyperkalemia: Plan: Hemodialysis as soon as possible. Nephrology may initiate patiromer. Telemetry. Serial labs (3) ESRD (end stage renal disease): Plan: Nephrology consultation requested. Initiate hemodialysis as soon as possible (4) Diabetes mellitus type 1 with complications: Plan: Continue usual basal insulin therapy. Sliding scale coverage. ADA diet (5) Chronic venous insufficiency: Plan: Continue hemodialysis and diuretic therapy (6) Diabetic neuropathy: Plan: Restart tramadol soon as possible (7) Essential hypertension: Plan: Blood pressure control is necessary due to frequent occurrence of diastolic congestive heart failure. Limit salt intake. Monitor intake and output. Plan Hopeful discharge to home in the next 48 to 72 hours. History of Present Illness Chief Complaint: Shortness of breath Primary Care Provider: Maki Peterson MD 43-year-old white male with end-stage renal disease on hemodialysis. He has frequent admissions for exacerbation of diastolic CHF which she has now. He has had progressively worsening shortness of breath for the past day or 2. He states his dialysis yesterday was cut short because he was having considerable pain related to his peripheral neuropathy. He has not had tramadol recently because he ran out. Current chest x-ray reveals evidence of CHF. Most recent cardiac echo reveals normal ejection fraction. Nephrology consult has been requested for initiation of hemodialysis as soon as possible. Tramadol has been restarted. Potassium is 5.6 on admission which will improve with dialysis. Nephrology may initiate patiromer treatment. Serial labs ordered. He denies chest pain, palpitations, syncope Allergies Allergy/AdvReac Type Severity Reaction Status Date / Time lisinopril AdvReac Intermediate COUGH Verified 11/12/23 23:45 Home Medications Medication Instructions Recorded Confirmed Type OneTouch Delica Lancets 33 gauge #400 ea 10/16/19 11/12/23 Rx (lancets) lancets 33 gauge (OneTouch Delica #400 ea 01/28/23 11/12/23 Rx Plus Lancet) acetone (urine) test (Ketostix 01/29/23 11/12/23 History strips) cinacalcet 60 mg tablet 60 mg PO DAILY #30 tabs 02/15/23 11/26/23 Rx atorvastatin 80 mg tablet (Lipitor) 80 mg PO DAILY #90 tabs 03/05/23 11/26/23 Rx apixaban 5 mg tablet (Eliquis) 5 mg PO BID 30 days #180 tabs 03/20/23 11/26/23 Rx blood-glucose meter,continuous #1 ea 03/20/23 11/12/23 Rx (Dexcom G7 Construction Skills Teacher) insulin detemir U-100 100 unit/mL 10 unit subcut PM 03/20/23 11/26/23 History (3 mL) subcutaneous pen amlodipine 10 mg tablet 10 mg PO DAILY #90 tabs 04/03/23 11/26/23 Rx blood sugar diagnostic (OneTouch #400 ea 05/21/23 11/12/23 Rx Verio test strips) blood-glucose meter (OneTouch #1 ea 05/21/23 11/12/23 Rx Verio Flex Meter) metoprolol succinate 50 mg 50 mg PO BID #180 tabs 05/21/23 11/26/23 Rx tablet,extended release 24 hr ammonium lactate 12 % topical cream 1 applic topical DAILY PRN Dry Skin 06/07/23 11/26/23 History duloxetine 60 mg capsule,delayed 60 mg PO QAM #90 caps 06/14/23 11/26/23 Rx release (Cymbalta) insulin aspart U-100 100 unit/mL 20 unit (0.2 mL) subcut TID #162 mL 07/12/23 11/26/23 Rx (3 mL) subcutaneous pen pen needle, diabetic 29 gauge x #400 ea 07/12/23 11/12/23 Rx 1/2" (Comfort EZ Pen [place]) bumetanide 2 mg tablet 4 mg (2 x 2 mg) PO BID #360 tabs 08/08/23 11/26/23 Rx blood-glucose sensor (Dexcom G7 #3 ea 08/27/23 11/12/23 Rx Sensor device) levothyroxine 75 mcg tablet 75 mcg PO DAILYBB 10/05/23 11/26/23 History meclizine 25 mg tablet 25 mg PO TID PRN dizziness or 10/10/23 11/26/23 Rx vertigo #30 tabs pregabalin 25 mg capsule (Lyrica) 25 mg PO BID #60 caps 10/18/23 11/26/23 Rx [id number] 2 cap PO .COMPLEX #180 caps 11/05/23 11/26/23 Rx 36,000-114,000-180,000 unit capsule,delay rel (Creon) sevelamer carbonate 800 mg tablet 800 mg PO TIDM #90 tabs 11/14/23 11/26/23 Rx vitamin B complex and vitamin C 1 cap PO QAM #30 caps 11/14/23 11/26/23 Rx no.20-folic acid 1 mg capsule (Renal Caps) tramadol 50 mg tablet 50 - 100 mg (1 - 2 x 50 mg) PO BID 11/19/23 11/26/23 Rx PRN pain #120 tabs Past Med/Surg History Problem List (Updated 11/26/23 @ 10:03 by Neymar Cartwright MD) Essential hypertension Diabetic neuropathy Chronic venous insufficiency Hyperkalemia Acute on chronic diastolic CHF (congestive heart failure) ESRD (end stage renal disease) requiring hemodialysis. MWF at [facility]. 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) heart failure with preserved ejection fraction Fatigue (Acute) Anemia (Acute) Diabetic nephropathy associated with type 1 diabetes mellitus Background diabetic retinopathy associated with type 1 diabetes mellitus Loss of protective sensation of skin of foot Anxiety and depression Anemia due to chronic kidney disease Venous ulcers of both lower extremities (Acute) Abnormal ankle brachial index SIRS (systemic inflammatory response syndrome) (Acute) Central venous catheter in place Dyslipidemia (Chronic) Macular edema (Chronic) Diabetic proliferative retinopathy (Chronic) Dysesthesia (Chronic) Vitamin D deficiency Hypothyroidism Obesity Diabetic peripheral neuropathy associated with type 1 diabetes mellitus (Acute) Chronic venous insufficiency (Chronic) Medical History Anxiety ESRD (end stage renal disease) on dialysis CHF (congestive heart failure) Atrial fibrillation ESRD (end stage renal disease) requiring hemodialysis. MWF at [facility]. Hypertension Type 1 diabetes Chronic venous insufficiency Macular edema Vitamin D deficiency Diabetic neuropathy Type 1 diabetes Anxiety and depression Anemia CHF (congestive heart failure) Hypertension Hypothyroid ESRD (end stage renal disease) Atrial fibrillation Dyslipidemia Thrombosis of arteriovenous dialysis fistula (~02/15/20) Erectile dysfunction GERD (gastroesophageal reflux disease) Well controlled and stable Surgical History History of esophagogastroduodenoscopy (EGD) H/O detached retina repair S/P arteriovenous (AV) fistula creation left side, unable to use Family History Mother Diabetes Coronary heart disease Hypertension Father Coronary heart disease Hypertension Brother Coronary heart disease Kidney disease Uncle Colorectal cancer Grandmother Diabetes Aunt Diabetes Unknown Dyslipidemia Grandfather (Maternal) Diabetes Other Cancer No family history of adverse response to anesthesia Social History Smoking Status: Never smoker Second Hand Exposure: No; Do You Dip or Chew Tobacco: No; Hx Alcohol Use: No Hx Substance Use: No Preferred Language: Mongolian Communication Ability: Effective Visual Impairment: No Limitations Hearing Ability: Normal Applied Psychology Chair Required: No Beliefs That Will Affect Care: None marital status: Single Current Living Situation: Alone Current Living Situation Comment: Brother 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 Shortness of breath for the past 2 days Cardiac-no palpitations, no chest pain, no syncope GI-no nausea, vomiting, diarrhea, melena, hematochezia -no urinary retention, no urinary incontinence, no dysuria, no hematuria Musculoskeletal-no joint pain, no muscle tenderness Skin-chronic venous insufficiency bilateral lower extremities below the knees with chronic stasis changes Neuro-no isolated weakness, no paresthesia. He does have peripheral neuropathy related to his underlying diabetes Psych-no depression, no anxiety Physical Exam 2 Physical Exam: General-alert and oriented x3, no fever, no chills HEENT-head atraumatic and normocephalic, pupils equal and reactive to light, extraocular muscles intact Neck-no lymphadenopathy or thyromegaly, trachea midline Chest-bibasilar inspiratory rales. No rhonchi. No wheezing Cardiac-regular rate and rhythm, normal S1 and S2 Abdomen-normal bowel sounds, no hepatosplenomegaly Extremities-chronic venous stasis changes bilateral lower extremities below the knees with chronic stasis dermatitis and edema. Neuro-cranial nerves II through XII intact, motor and sensory function within normal limits, strength symmetrical, no focal deficits Psych-normal affect, normal mood Results & Data Results & Data Vital Signs (Past 12 Hours) Vital Signs Temp Pulse Pulse Resp BP BP Pulse Ox 11/26/23 08:14 85 20 94 11/26/23 08:14 94 11/26/23 08:07 85 11/26/23 07:52 36.8 C 78 20 173/95 H 92 11/26/23 07:52 92 11/26/23 07:52 36.8 C 85 20 173/95 H 92 11/26/23 07:52 O2 Del Method O2 Flow Rate 11/26/23 08:14 Nasal Cannula 1 11/26/23 08:14 Nasal Cannula 1 11/26/23 08:07 11/26/23 07:52 Room Air 11/26/23 07:52 Room Air 11/26/23 07:52 Room Air 11/26/23 07:52 Room Air Laboratory Results 11/26/23 07:55 11/26/23 07:55 Code Status & VTE Plan Code Status Full code PG Care Time/CCT Total # of Minutes Spent Total Time Spent with Patient: Total time spent is greater than 50% in coordination of care (as documented) at patient's floor/unit and/or counseling patient: Coding Level of Care Code 01189 INT INP/OBS CARE 3/75MIN Diagnoses Acute on chronic diastolic CHF (congestive heart failure) I50.33 Hyperkalemia E87.5 ESRD (end stage renal disease) N18.6 Diabetes mellitus type 1 with complications E10.8 Chronic venous insufficiency I87.2 Diabetic neuropathy E11.40 Essential hypertension I10
[2023-11-26] MEDS: traMADol HCL 50 MG TABLET PO STA (10:24)
[2023-11-26] MEDS ORDERED: SODIUM CHLORIDE 0.9% 1,000 ML IV PRN (11:12)
--- NOTE | 2023-11-26 11:36 | Nephrology Consultation ---
Date of Consultation November 26, 2023 Assessment & Plan (1) ESRD (end stage renal disease): * Outpatient HD Rx: F [facility] 4 hr, 2K 2.5Ca HCO3 38 Na 138, Elisio 17H dialyzer, Heparin load 3000/hourly 1100, EDW 108 kg * Will provide HD today and challenge EDW using Crit-line monitor * Orders have been placed in EMR and HD RN notified * Plan short HD treatment in am to maintain [facility] schedule (patient likely will not be able to attend am outpatient HD treatment tomorrow) (2) Hyperkalemia: * Mild, no ECG changes * HD this afternoon. Will provide one dose Patiromer (3) Acute on chronic diastolic CHF (congestive heart failure): * CHF on basis of shortened HD treatment. Compliance w/ prescribed HD therapy discussed w/ patient today * Attempt UF w/ HD today. Will repeat CXR in am (4) Anemia due to chronic kidney disease: * Will provide ANTHONY w/ HD today (5) Diabetes mellitus type 1 with complications: History of Present Illness Reason for Consultation: ESKD-D Attending Physician: Neymar Cartwright MD History of Present Illness Mr. Snell is a 43 year old white male who is seen at the request of Dr. Cartwright to provide inpatient HD. Information for the HPI is obtained from direct patient interview and review of medical records in the EMR. HPI is summarized as follows: Mr. Snell has ESKD due to IDDM. He was started on IHD 03/10 and dialyzes via LUE BC AVF. He currently dialyzes at [facility] (4 hr, 2K 2.5Ca HCO3 38 Na 138, Elisio 17H dialyzer, Heparin load 3000/hourly 1100, EDW 108 kg). His medical history is significant for IDDM (Dx at 11 yoa, + retinopathy & neuropathy), obesity (BMI 44), hypothyroidism, anemia, dep ression/anxiety. Mr. Snell completed only 1 hr of dialysis yesterday. He has peripheral neuropathy and was suffering severe neuropathic pain. He requested to come off treatment early. Last evening he suffered new onset cough and orthopnea. He presented to [facility] EMD this morning for evaluation of dyspnea. He was found to be hemodynamically stable. CXR revealed evidence of congestive heart failure. Serum potassium was mildly elevated at 5.6. ECG was normal sinus rhythm. No interval prolongation or peaked T waves. Troponin was normal at 12.4. BNP was markedly elevated at 1670. Echocardiogram 02/11/2023: LVEF 55-60%, moderate LVH. Hemodialysis has been requested for correction of hyperkalemia and ultrafiltration. Allergies Allergy/AdvReac Type Severity Reaction Status Date / Time lisinopril AdvReac Intermediate COUGH Verified 11/12/23 23:45 Home Medications Medication Instructions Recorded Confirmed Type OneTouch Delica Lancets 33 gauge #400 ea 10/16/19 11/12/23 Rx (lancets) lancets 33 gauge (OneTouch Delica #400 ea 01/28/23 11/12/23 Rx Plus Lancet) acetone (urine) test (Ketostix 01/29/23 11/12/23 History strips) cinacalcet 60 mg tablet 60 mg PO DAILY #30 tabs 02/15/23 11/26/23 Rx atorvastatin 80 mg tablet (Lipitor) 80 mg PO DAILY #90 tabs 03/05/23 11/26/23 Rx apixaban 5 mg tablet (Eliquis) 5 mg PO BID 30 days #180 tabs 03/20/23 11/26/23 Rx blood-glucose meter,continuous #1 ea 03/20/23 11/12/23 Rx (miLibriscom G7 Injection Molding Machine Setter) insulin detemir U-100 100 unit/mL 10 unit subcut PM 03/20/23 11/26/23 History (3 mL) subcutaneous pen amlodipine 10 mg tablet 10 mg PO DAILY #90 tabs 04/03/23 11/26/23 Rx blood sugar diagnostic (OneTouch #400 ea 05/21/23 11/12/23 Rx Verio test strips) blood-glucose meter (OneTouch #1 ea 05/21/23 11/12/23 Rx Verio Flex Meter) metoprolol succinate 50 mg 50 mg PO BID #180 tabs 05/21/23 11/26/23 Rx tablet,extended release 24 hr ammonium lactate 12 % topical cream 1 applic topical DAILY PRN Dry Skin 06/07/23 11/26/23 History duloxetine 60 mg capsule,delayed 60 mg PO QAM #90 caps 06/14/23 11/26/23 Rx release (Cymbalta) insulin aspart U-100 100 unit/mL 20 unit (0.2 mL) subcut TID #162 mL 07/12/23 11/26/23 Rx (3 mL) subcutaneous pen pen needle, diabetic 29 gauge x #400 ea 07/12/23 11/12/23 Rx 1/2" (Comfort EZ Pen [place]) bumetanide 2 mg tablet 4 mg (2 x 2 mg) PO BID #360 tabs 08/08/23 11/26/23 Rx blood-glucose sensor (Dexcom G7 #3 ea 08/27/23 11/12/23 Rx Sensor device) levothyroxine 75 mcg tablet 75 mcg PO DAILYBB 10/05/23 11/26/23 History meclizine 25 mg tablet 25 mg PO TID PRN dizziness or 10/10/23 11/26/23 Rx vertigo #30 tabs pregabalin 25 mg capsule (Lyrica) 25 mg PO BID #60 caps 10/18/23 11/26/23 Rx [id number]-[id number]-[id number] 2 cap PO .COMPLEX #180 caps 11/05/23 11/26/23 Rx 36,000-114,000-180,000 unit capsule,delay rel (Creon) sevelamer carbonate 800 mg tablet 800 mg PO TIDM #90 tabs 11/14/23 11/26/23 Rx vitamin B complex and vitamin C 1 cap PO QAM #30 caps 11/14/23 11/26/23 Rx no.20-folic acid 1 mg capsule (Renal Caps) tramadol 50 mg tablet 50 - 100 mg (1 - 2 x 50 mg) PO BID 11/19/23 11/26/23 Rx PRN pain #120 tabs Patient History Medical History Anxiety ESRD (end stage renal disease) on dialysis CHF (congestive heart failure) Atrial fibrillation ESRD (end stage renal disease) requiring hemodialysis. MWF at [facility]. Hypertension Type 1 diabetes Chronic venous insufficiency Macular edema Vitamin D deficiency Diabetic neuropathy Type 1 diabetes Anxiety and depression Anemia CHF (congestive heart failure) Hypertension Hypothyroid ESRD (end stage renal disease) Atrial fibrillation Dyslipidemia Thrombosis of arteriovenous dialysis fistula (~02/15/20) Erectile dysfunction GERD (gastroesophageal reflux disease) Well controlled and stable Surgical History History of esophagogastroduodenoscopy (EGD) H/O detached retina repair S/P arteriovenous (AV) fistula creation left side, unable to use Family History Mother Diabetes Coronary heart disease Hypertension Father Coronary heart disease Hypertension Brother Coronary heart disease Kidney disease Uncle Colorectal cancer Grandmother Diabetes Aunt Diabetes Unknown Dyslipidemia Grandfather (Maternal) Diabetes Other Cancer No family history of adverse response to anesthesia Social History Smoking Status: Never smoker Second Hand Exposure: No; Do You Dip or Chew Tobacco: No; Hx Alcohol Use: No Hx Substance Use: No Preferred Language: Syriac Communication Ability: Effective Visual Impairment: No Limitations Hearing Ability: Normal Senior Software Manager Required: No Beliefs That Will Affect Care: None marital status: Single Current Living Situation: Family Current Living Situation Comment: Brother 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" How many Children do You have: 0 Feels Safe at Home: Yes Diet: regular Dental Care, Regularly: No Physical Activity Frequency: Does not Exercise Seatbelt Use: always Sunscreen Use: No Assistive Devices: Cane Review of Systems Constitutional: no fever Eyes: no problem reported Ear, Nose, Mouth, Throat: no problem reported Respiratory: + cough and + dyspnea Cardiovascular: no chest pain Gastrointestinal: no abdominal pain, no nausea, no vomiting and no diarrhea/loose stools Physical Exam Constitutional: no acute distress Eyes: PERRL, conjunctivae normal, anicteric sclerae ENMT: external ear and nose normal, oropharynx normal Neck: trachea midline, no thyromegaly Respiratory: Auscultation: + rales Cardiovascular: Rate/Rhythm: regular rate and regular rhythm Extremities: + AV fistula (+ thrill) Gastrointestinal (Abdomen): normal bowel sounds, soft, nontender, no hepatosplenomegaly Neurologic: Speech / Cognition: normal speech and normal cognition Psychiatric: Affect: euthymic affect Results & Data Vital Signs (Past 12 Hours) Vital Signs Temp Pulse Pulse Resp BP BP Pulse Ox 11/26/23 10:34 36.8 C 84 20 136/89 96 11/26/23 08:14 85 20 94 11/26/23 08:14 94 11/26/23 08:07 85 11/26/23 07:52 36.8 C 78 20 173/95 H 92 08/06/24 07:52 92 11/26/23 07:52 36.8 C 85 20 173/95 H 92 11/26/23 07:52 O2 Del Method O2 Flow Rate 11/26/23 10:34 Nasal Cannula 1 11/26/23 08:14 Nasal Cannula 1 11/26/23 08:14 Nasal Cannula 1 11/26/23 08:07 11/26/23 07:52 Room Air 11/26/23 07:52 Room Air 11/26/23 07:52 Room Air 11/26/23 07:52 Room Air Laboratory Results Laboratory Results WBC 4.11 K/ul (4.8-10.8) L 11/26/23 07:55 RBC 2.95 M/uL (4.70-6.10) L 11/26/23 07:55 Hgb 8.4 g/dl (14.0-18.0) L 11/26/23 07:55 Hct 26.4 % (42.0-52.0) L 11/26/23 07:55 MCV 89.5 fL (80.0-100.0) 11/26/23 07:55 MCH 28.5 pg (25.0-34.0) 11/26/23 07:55 MCHC 31.8 g/dL (32.0-36.0) L 11/26/23 07:55 RDW Std Deviation 55.0 fL (36.4-46.3) H 11/26/23 07:55 RDW Coeff of Yuki 16.8 % (11.5-14.5) H 11/26/23 07:55 Plt Count 99 K/uL (130-400) L 11/26/23 07:55 MPV 12.3 fL (9.4-12.4) 11/26/23 07:55 Immature Gran % (Auto) 0.2 % 11/26/23 07:55 Neut % (Auto) 69.9 % 11/26/23 07:55 Lymph % (Auto) 17.5 % 11/26/23 07:55 [place] % (Auto) 9.2 % 11/26/23 07:55 Eos % (Auto) 2.7 % 11/26/23 07:55 Baso % (Auto) 0.5 % 11/26/23 07:55 Neut # (Auto) 2.87 K/uL (1.40-6.50) 11/26/23 07:55 Lymph # (Auto) 0.72 K/uL (1.20-3.40) L 11/26/23 07:55 [place] # (Auto) 0.38 K/uL (0.11-0.59) 11/26/23 07:55 Eos # (Auto) 0.11 K/uL (0.00-0.50) 11/26/23 07:55 Baso # (Auto) 0.02 K/uL (0.00-0.20) 11/26/23 07:55 Immature Gran # (Auto) 0.01 K/uL (0.01-0.20) 11/26/23 07:55 PT 11.9 Seconds (9.0-12.0) 11/26/23 07:55 INR 1.1 (0.9-1.1) 11/26/23 07:55 APTT 31 Seconds (21-31) 11/26/23 07:55 PTT Ratio 1.2 11/26/23 07:55 Sodium 135 mmol/L (136-145) L 11/26/23 07:55 Potassium 5.6 mmol/L (3.5-5.1) H 11/26/23 07:55 Chloride 92 mmol/L (98-107) L 11/26/23 07:55 Carbon Dioxide 31 mmol/L (21-32) 11/26/23 07:55 Anion Gap 12 (3-11) H 11/26/23 07:55 BUN 51 mg/dl (6-23) H 11/26/23 07:55 Creatinine 8.30 mg/dl (0.6-1.4) H* 11/26/23 07:55 Est Cr Clr Drug Dosing 13.2 ml/min 11/26/23 07:55 Est GFR ( Amer) 8.3 ml/min 11/26/23 07:55 Est GFR (Non-Af Amer) 7.2 ml/min 11/26/23 07:55 BUN/Creatinine Ratio 6.1 (10-20) L 11/26/23 07:55 Glucose 271 mg/dl (70-99(Fasting)) H 11/26/23 07:55 Calcium 10.0 mg/dl (8.6-10.3) 11/26/23 07:55 Magnesium 2.2 mg/dl (1.7-2.4) 11/26/23 07:55 Total Bilirubin 0.8 mg/dl (0.2-1.0) 11/26/23 07:55 AST 25 U/L (13-39) 11/26/23 07:55 ALT 21 U/L (7-52) 11/26/23 07:55 Alkaline Phosphatase 168 U/L (34-104) H 11/26/23 07:55 Troponin I High Sens 12.4 pg/ml (0-20) 11/26/23 07:55 B-Natriuretic Peptide 1670 pg/ml (0-100) H 11/26/23 07:55 Total Protein 7.7 gm/dl (6.0-8.3) 11/26/23 07:55 Albumin 4.1 gm/dl (3.4-5.0) 11/26/23 07:55 Globulin 3.6 gm/dl (2.5-4.0) 11/26/23 07:55 Albumin/Globulin Ratio 1.1 (0.9-2) 11/26/23 07:55 Impressions Chest X-Ray 11/26/23 08:08 SINGLE VIEW CHEST CLINICAL HISTORY: Dyspnea. Cough. FINDINGS: 2 AP, portable, upright chest radiographs are compared to study dated 11/12/2023. The heart is enlarged noting atherosclerotic calcification of the thoracic aorta. There is pulmonary vascular congestion. Bilateral airspace opacities likely representing interstitial edema. No large pleural effusion or pneumothorax is seen. The skeletal structures are osteopenic. The bony thorax is grossly intact. IMPRESSION: 1. Cardiomegaly with evidence of congestive failure. 2. Bilateral airspace opacities likely represent pulmonary edema. Correlate clinically for evidence of a superimposed pneumonia. Radiographic follow-up to resolution is recommended. ACT 112: Negative or not required by law. Electronically signed by: Aaron Mcguire M.D. 11/26/2023 8:56 AM PG Care Time/CCT Total # of Minutes Spent Total Time Spent with Patient: Total time spent is greater than 50% in coordination of care (as documented) at patient's floor/unit and/or counseling patient: Coding Level of Care Code 11132 OFFICE CONSULT LVL 5/55M Diagnoses ESRD (end stage renal disease) N18.6 Hyperkalemia E87.5 Acute on chronic diastolic CHF (congestive heart failure) I50.33 Anemia due to chronic kidney disease N18.9; D63.1 Diabetes mellitus type 1 with complications E10.8
[2023-11-26] MEDS: PATIROMER CALCIUM SORBITEX 8.4 GM PACK PO ONE (12:34)
[2023-11-26] MEDS ORDERED: GLUCOSE 40% GEL 15 GM TUBE PO PRN (12:43)
[2023-11-26] MEDS ORDERED: DEXTROSE 50% 50 ML SYRINGE IV PRN (12:43)
[2023-11-26] MEDS ORDERED: PANCREAZE (LIPASE 10,500U) CAP PO PRN (12:43)
[2023-11-26] MEDS ORDERED: GLUCOSE 10 TAB/TUBE PO PRN (12:43)
[2023-11-26] MEDS ORDERED: ONDANSETRON INJ 2 MG/ML 2 ML VIAL IV PRN (12:43)
[2023-11-26] MEDS ORDERED: ACETAMINOPHEN 325 MG TAB PO PRN (12:43)
[2023-11-26] MEDS ORDERED: CARBOHYDRATES FOR HYPOGLYCEMIA PO PRN (12:43)
[2023-11-26] MEDS ORDERED: GLUCAGON FOR INJ 1 MG VIAL SQ PRN (12:43)
[2023-11-26 13:17] LABS: Basophils # (auto) 0.02 K/uL (0.00-0.20); Basophils % (auto) 0.4 %; Eosinophils # (auto) 0.14 K/uL (0.00-0.50); Hematocrit (blood only) 25.7 % (42.0-52.0); Immature Granulocytes # (auto) 0.01 K/uL (0.01-0.20); Immature Granulocytes % (auto) 0.2 %; Lymphocytes # (auto) 0.85 K/uL (1.20-3.40); Mean Corpuscular Hemoglobin 27.7 pg (25.0-34.0); Mean Corpuscular Hgb Conc 31.1 g/dL (32.0-36.0); Mean Corpuscular Volume 88.9 fL (80.0-100.0); Mean Platelet Volume 12.2 fL (9.4-12.4); Monocytes # (auto) 0.39 K/uL (0.11-0.59); Monocytes % (auto) 8.3 %; Neutrophils % (auto) 70.1 %; Platelet Count 104 K/uL (130-400); RDW Coefficient of Variation 16.7 % (11.5-14.5); RDW Standard Deviation 54.6 fL (36.4-46.3); Red Blood Count 2.89 M/uL (4.70-6.10); White Blood Count 4.71 K/ul (4.8-10.8)
[2023-11-26] MEDS: SEVELAMER CARBONATE 800 MG TAB PO SCH (13:29)
[2023-11-26 13:33] LABS: BUN Creatinine Ratio 6.2 (10-20); Calcium 9.6 mg/dl (8.6-10.3); Creatinine Clr Calc Pharmacy 12.7 ml/min; Est GFR (African American) 7.9 ml/min; Est GFR (Non-African American) 6.9 ml/min; Potassium 5.8 mmol/L (3.5-5.1)
[2023-11-26] MEDS: INSULIN ASPART PER UNIT CHARGE SC SCH (13:33)
--- NOTE | 2023-11-26 17:26 | Electrocardiogram Report ---
Test Reason : Blood Pressure : */* mmHG Vent. Rate : 78 BPM Atrial Rate : 78 BPM P-R Int : 150 ms QRS Dur : 86 ms QT Int : 398 ms P-R-T Axes : 31 7 74 degrees QTcB Int : 453 ms Normal sinus rhythm Normal ECG When compared with ECG of 12-Nov-2023 21:40, No significant change was found Confirmed by Rich Marie ([id number]) on 11/26/2023 5:25:56 PM Referred By: REFERRED SELF Confirmed By: Rich Marie
[2023-11-26] MEDS: EPOETIN ALFA 10,000 UNITS/ML VIAL IV ONE (19:41)
[2023-11-26] MEDS: HEPARIN SOD (PORCINE) 1000 UNIT/ML IV ONE (19:41)
[2023-11-26] MEDS: HEPARIN SOD (PORCINE) 1000 UNIT/ML IV SCH (19:42)
[2023-11-26] MEDS: LANTUS PER UNIT CHARGE SC SCH (21:55)
[2023-11-26] MEDS: PANCREAZE (LIPASE 10,500U) CAP PO SCH (21:58)
[2023-11-26] MEDS: METOPROLOL SUCC 50MG EXT REL TAB PO SCH (21:59)
[2023-11-26] MEDS: BUMETANIDE 1 MG TAB PO SCH (21:59)
[2023-11-26] MEDS: APIXABAN 5 MG TABLET PO SCH (22:00)
[2023-11-26] MEDS: PREGABALIN 25 MG CAP PO SCH (22:10)
[2023-11-26] MEDS: traMADol HCL 50 MG TABLET PO PRN (22:10)
[2023-11-27] MEDS: LEVOTHYROXINE SODIUM 75 MCG TABLET PO SCH (05:08)
[2023-11-27 06:31] LABS: Basophils # (auto) 0.02 K/uL (0.00-0.20); Basophils % (auto) 0.4 %; Eosinophils # (auto) 0.13 K/uL (0.00-0.50); Eosinophils % (auto) 2.9 %; Hematocrit (blood only) 25.8 % (42.0-52.0); Hemoglobin 7.9 g/dl (14.0-18.0); Immature Granulocytes # (auto) 0.01 K/uL (0.01-0.20); Immature Granulocytes % (auto) 0.2 %; Lymphocytes # (auto) 0.92 K/uL (1.20-3.40); Lymphocytes % (auto) 20.5 %; Mean Corpuscular Hemoglobin 27.5 pg (25.0-34.0); Mean Corpuscular Hgb Conc 30.6 g/dL (32.0-36.0); Mean Corpuscular Volume 89.9 fL (80.0-100.0); Monocytes # (auto) 0.41 K/uL (0.11-0.59); Monocytes % (auto) 9.1 %; Neutrophils % (auto) 66.9 %; Platelet Count 117 K/uL (130-400); RDW Coefficient of Variation 16.5 % (11.5-14.5); RDW Standard Deviation 54.6 fL (36.4-46.3); Red Blood Count 2.87 M/uL (4.70-6.10); White Blood Count 4.49 K/ul (4.8-10.8)
[2023-11-27 07:00] LABS: RBC Morphology Unremarkable
[2023-11-27] MEDS ORDERED: SODIUM CHLORIDE 0.9% 1,000 ML IV PRN (07:00)
[2023-11-27 07:03] LABS: BUN Creatinine Ratio 5.1 (10-20); Calcium 9.4 mg/dl (8.6-10.3); Est GFR (African American) 13.7 ml/min; Est GFR (Non-African American) 11.8 ml/min; Potassium 4.3 mmol/L (3.5-5.1)
[2023-11-27 07:36] VITALS: RESP 18
--- NOTE | 2023-11-27 08:00 | XRay Report ---
XR chest 1V portable CLINICAL HISTORY: CHF TECHNIQUE: Single frontal radiograph of the chest was obtained. Comparison: Comparison is made to chest radiograph 11/26/2023 FINDINGS: No lines and tubes are seen. Cardiomegaly is noted. There is prominence and cephalization of the vasc ulature with Roma B lines seen. No evidence of pleural effusion or pneumothorax. IMPRESSION: Cardiomegaly and moderate pulmonary edema. This is similar to prior exam. ACT 112: Negative or not required by law. Electronically signed by: Lee Millan M.D. 11/27/2023 7:59 AM
--- NOTE | 2023-11-27 08:57 | Nephrology Progress Note ---
Date of Service November 27, 2023 Assessment & Plan (1) ESRD (end stage renal disease): Plan: * Outpatient HD Rx: [facility] 4 hr, 2K 2.5Ca HCO3 38 Na 138, Elisio 17H dialyzer, Heparin load 3000/hourly 1100, EDW 108 kg * Dialyzed yesterday for 4.2L UF. Now below EDW * Will provide HD today and attempt additional 2 L UF * Orders have been placed in EMR and HD RN notified (2) Acute on chronic diastolic CHF (congestive heart failure): Plan: * CHF on basis of shortened HD treatment. Compliance w/ prescribed HD therapy discussed w/ patient today * CXR film appears improved this am (3) Hyperkalemia: Plan: * Corrected (4) Anemia due to chronic kidney disease: Plan: * Will provide ANTHONY w/ HD today (5) Diabetes mellitus type 1 with complications: Admission and Anticipated Discharge Date Admission Date: November 26, 2023 Subjective Mr. Snell was evaluated in his hospital room this morning. He was dialyzed yesterday for 4.5 L UF without complication. He was breathing comfortably on RA at the time of my evaluation Review of Systems Constitutional: no fever Eyes: no problem reported Ear, Nose, Mouth, Throat: no problem reported Respiratory: no cough and no dyspnea Cardiovascular: no chest pain Gastrointestinal: no abdominal pain, no nausea, no vomiting and no diarrhea/loose stools Physical Exam Constitutional: no acute distress Eyes: PERRL, conjunctivae normal, anicteric sclerae ENMT: external ear and nose normal, oropharynx normal Neck: trachea midline, no thyromegaly Respiratory: Auscultation: lungs clear to auscultation bilaterally Cardiovascular: Rate/Rhythm: regular rate and regular rhythm Extremities: + AV fistula (+ thrill) Gastrointestinal (Abdomen): normal bowel sounds, soft, nontender, no hepatosplenomegaly Neurologic: Speech / Cognition: normal speech and normal cognition Psychiatric: Affect: euthymic affect Results & Data Vital Signs (Past 12 Hours) Vital Signs Temp Pulse Pulse Pulse Resp BP Pulse Ox 11/27/23 08:33 71 11/27/23 07:35 36.7 C 71 18 165/86 H 100 11/27/23 02:50 36.5 C 73 16 177/82 H 90 11/26/23 23:00 80 11/26/23 22:00 36.8 C 80 18 172/76 H 97 11/26/23 21:00 80 11/26/23 21:00 O2 Del Method O2 Flow Rate 11/27/23 08:33 11/27/23 07:35 Nasal Cannula 2 11/27/23 02:50 Nasal Cannula 2 11/26/23 23:00 11/26/23 22:00 Nasal Cannula 2 11/26/23 21:00 11/26/23 21:00 Nasal Cannula 2 Laboratory Results Laboratory Results - last 24 hr 11/26/23 11/26/23 11/26/23 07:55 12:53 13:09 WBC 4.71 L RBC 2.89 L Hgb 8.0 L Hct 25.7 L MCV 88.9 MCH 27.7 MCHC 31.1 L RDW Std Deviation 54.6 H RDW Coeff of Yuki 16.7 H Plt Count 104 L MPV 12.2 Immature Gran % (Auto) 0.2 Neut % (Auto) 70.1 Lymph % (Auto) 18.0 [place] % (Auto) 8.3 Eos % (Auto) 3.0 Baso % (Auto) 0.4 Neut # (Auto) 3.30 Lymph # (Auto) 0.85 L [place] # (Auto) 0.39 Eos # (Auto) 0.14 Baso # (Auto) 0.02 Immature Gran # (Auto) 0.01 RBC Morphology Sodium 135 L 135 L Potassium 5.6 H 5.8 H Chloride 92 L 93 L Carbon Dioxide 31 30 Anion Gap 12 H 12 H BUN 51 H 53 H Creatinine 8.30 H* 8.60 H* D Est Cr Clr Drug Dosing 13.2 12.7 Est GFR ( Amer) 8.3 7.9 Est GFR (Non-Af Amer) 7.2 6.9 BUN/Creatinine Ratio 6.1 L 6.2 L Glucose 271 H 238 H POC Glucose 246 H Calcium 10.0 9.6 Magnesium 2.2 Total Bilirubin 0.8 AST 25 ALT 21 Alkaline Phosphatase 168 H Troponin I High Sens 12.4 Total Protein 7.7 Albumin 4.1 Globulin 3.6 Albumin/Globulin Ratio 1.1 11/26/23 11/27/23 11/27/23 20:50 00:36 05:40 WBC 4.49 L RBC 2.87 L Hgb 7.9 L Hct 25.8 L MCV 89.9 MCH 27.5 MCHC 30.6 L RDW Std Deviation 54.6 H RDW Coeff of Yuki 16.5 H Plt Count 117 L MPV 12.0 Immature Gran % (Auto) 0.2 Neut % (Auto) 66.9 Lymph % (Auto) 20.5 [place] % (Auto) 9.1 Eos % (Auto) 2.9 Baso % (Auto) 0.4 Neut # (Auto) 3.00 Lymph # (Auto) 0.92 L [place] # (Auto) 0.41 Eos # (Auto) 0.13 Baso # (Auto) 0.02 Immature Gran # (Auto) 0.01 RBC Morphology Unremarkable Sodium 136 Potassium 4.3 D Chloride 99 Carbon Dioxide 28 Anion Gap 9 BUN 28 H D Creatinine 5.48 H* D Est Cr Clr Drug Dosing 20.0 Est GFR ( Amer) 13.7 Est GFR (Non-Af Amer) 11.8 BUN/Creatinine Ratio 5.1 L Glucose 125 H POC Glucose 130 H 153 H Calcium 9.4 Magnesium Total Bilirubin AST ALT Alkaline Phosphatase Troponin I High Sens Total Protein Albumin Globulin Albumin/Globulin Ratio 11/27/23 08:00 WBC RBC Hgb Hct MCV MCH MCHC RDW Std Deviation RDW Coeff of [place]uki Plt Count MPV Immature Gran % (Auto) Neut % (Auto) Lymph % (Auto) [place] % (Auto) Eos % (Auto) Baso % (Auto) Neut # (Auto) Lymph # (Auto) [place] # (Auto) Eos # (Auto) Baso # (Auto) Immature Gran # (Auto) RBC Morphology Sodium Potassium Chloride Carbon Dioxide Anion Gap BUN Creatinine Est Cr Clr Drug Dosing Est GFR ( Amer) Est GFR (Non-Af Amer) BUN/Creatinine Ratio Glucose POC Glucose 124 H Calcium Magnesium Total Bilirubin AST ALT Alkaline Phosphatase Troponin I High Sens Total Protein Albumin Globulin Albumin/Globulin Ratio PG Care Time/CCT Total # of Minutes Spent Total Time Spent with Patient: Total time spent is greater than 50% in coordination of care (as documented) at patient's floor/unit and/or counseling patient: Coding Level of Care Code 22959 SUB INP/OBS CARE 3/50MIN Diagnoses ESRD (end stage renal disease) N18.6 Acute on chronic diastolic CHF (congestive heart failure) I50.33 Hyperkalemia E87.5 Anemia due to chronic kidney disease N18.9; D63.1 Diabetes mellitus type 1 with complications E10.8
[2023-11-27 10:14] VITALS: TEMP 97.7
[2023-11-27] MEDS: EPOETIN ALFA 10,000 UNITS/ML VIAL IV ONE (11:15)
--- NOTE | 2023-11-27 11:46 | Hospitalist Progress Note ---
Date of Service November 27, 2023 Assessment & Plan (1) Acute on chronic diastolic CHF (congestive heart failure): Plan: Resolved with hemodialysis. Monitor intake and output. Continue Bumex. (2) Hyperkalemia: Plan: Resolved with hemodialysis and 1 dose of patiromer. (3) ESRD (end stage renal disease): Plan: Nephrology consultation and recommendations appreciated. He received hemodialysis yesterday and today. (4) Diabetes mellitus type 1 with complications: Plan: Stable. Continue usual basal insulin therapy. Sliding scale coverage. ADA diet (5) Chronic venous insufficiency: Plan: Continue hemodialysis and diuretic therapy (6) Essential hypertension: Plan: Blood pressure control is necessary due to frequent occurrence of diastolic congestive heart failure. Limit salt intake. Monitor intake and output. Plan Home today, November 26, after hemodialysis completed. Admission and Anticipated Discharge Date Admission Date: November 26, 2023 Subjective The patient was seen while in hemodialysis. A total of 7 L of fluid have been removed with dialysis yesterday and today. He wants to go home today. I corresponded with nephrology and they are in agreement that he can go home today. 100% oxygen saturation on 2 L of oxygen. Oxygen will be discontinued. Potassium is now down to 4.3. Review of Systems 2 Review of Systems: Constitutional-no fever or chills ENT-no blurred vision, no double vision, no epistaxis, no sore throat Respiratory-no cough, no wheezing. Shortness of breath has resolved Cardiac-no palpitations, no chest pain, no syncope GI-no nausea, vomiting, diarrhea, melena, hematochezia -no urinary retention, no urinary incontinence, no dysuria, no hematuria Musculoskeletal-no joint pain, no muscle tenderness Skin-chronic venous insufficiency bilateral lower extremities below the knees with chronic stasis changes Neuro-no isolated weakness, no paresthesia. He does have peripheral neuropathy related to his underlying diabetes Psych-no depression, no anxiety Physical Exam 2 Physical Exam: General-alert and oriented x3, no fever, no chills HEENT-head atraumatic and normocephalic, pupils equal and reactive to light, extraocular muscles intact Neck-no lymphadenopathy or thyromegaly, trachea midline Chest-clear. Rales have resolved. No rhonchi. No wheezing Cardiac-regular rate and rhythm, normal S1 and S2 Abdomen-normal bowel sounds, no hepatosplenomegaly Extremities-chronic venous stasis changes bilateral lower extremities below the knees with chronic stasis dermatitis and edema. Neuro-cranial nerves II through XII intact, motor and sensory function within normal limits, strength symmetrical, no focal deficits Psych-normal affect, normal mood Results & Data Results & Data Vital Signs (Past 12 Hours) Vital Signs Temp Pulse Pulse Pulse Pulse Resp BP 11/27/23 10:00 71 151/82 H 11/27/23 09:30 72 145/79 H 11/27/23 09:18 36.5 C 73 11/27/23 09:15 11/27/23 08:33 71 11/27/23 07:35 36.7 C 71 18 11/27/23 02:50 36.5 C 73 16 BP Pulse Ox O2 Del Method O2 Flow Rate 11/27/23 10:00 11/27/23 09:30 11/27/23 09:18 11/27/23 09:15 Nasal Cannula 2 11/27/23 08:33 11/27/23 07:35 165/86 H 100 Nasal Cannula 2 11/27/23 02:50 177/82 H 90 Nasal Cannula 2 Laboratory Results 11/27/23 05:40 11/27/23 05:40 PG Care Time/CCT Total # of Minutes Spent Total Time Spent with Patient: Total time spent is greater than 50% in coordination of care (as documented) at patient's floor/unit and/or counseling patient: Coding Level of Care Code 72831 SUB INP/OBS CARE 3/50MIN Diagnoses Acute on chronic diastolic CHF (congestive heart failure) I50.33 Hyperkalemia E87.5 ESRD (end stage renal disease) N18.6 Diabetes mellitus type 1 with complications E10.8 Chronic venous insufficiency I87.2 Essential hypertension I10
--- NOTE | 2023-11-27 11:52 | Discharge Summary ---
Discharge Summary Date of Service November 27, 2023 Principal Dx & Hospital Course #1 = Principal Diagnosis (1) Acute on chronic diastolic CHF (congestive heart failure): Resolved with hemodialysis. Monitor intake and output. Continue Bumex. (2) Hyperkalemia: Resolved with hemodialysis and 1 dose of patiromer. (3) ESRD (end stage renal disease): Nephrology consultation and recommendations appreciated. He received hemodialysis yesterday and today. (4) Diabetes mellitus type 1 with complications: Stable. Continue usual basal insulin therapy. Sliding scale coverage. ADA di et (5) Chronic venous insufficiency: Continue hemodialysis and diuretic therapy (6) Essential hypertension: Blood pressure control is necessary due to frequent occurrence of diastolic congestive heart failure. Limit salt intake. Monitor intake and output. Plan Home today, November 26, after hemodialysis completed. Admission HPI Per Admitting Provider 43-year-old white male with end-stage renal disease on hemodialysis. He has frequent admissions for exacerbation of diastolic CHF which she has now. He has had progressively worsening shortness of breath for the past day or 2. He states his dialysis yesterday was cut short because he was having considerable pain related to his peripheral neuropathy. He has not had tramadol recently because he ran out. Current chest x-ray reveals evidence of CHF. Most recent cardiac echo reveals normal ejection fraction. Nephrology consult has been requested for initiation of hemodialysis as soon as possible. Tramadol has been restarted. Potassium is 5.6 on admission which will improve with dialysis. Nephrology may initiate patiromer treatment. Serial labs ordered. He denies chest pain, palpitations, syncope Discharge Exam General-alert and oriented x3, no fever, no chills HEENT-head atraumatic and normocephalic, pupils equal and reactive to light, extraocular muscles intact Neck-no lymphadenopathy or thyromegaly, trachea midline Chest-clear. Rales have resolved. No rhonchi. No wheezing Cardiac-regular rate and rhythm, normal S1 and S2 Abdomen-normal bowel sounds, no hepatosplenomegaly Extremities-chronic venous stasis changes bilateral lower extremities below the knees with chronic stasis dermatitis and edema. Neuro-cranial nerves II through XII intact, motor and sensory function within normal limits, strength symmetrical, no focal deficits Psych-normal affect, normal mood Updated Medication List Medication Instructions Recorded Confirmed Type OneTouch Delica Lancets 33 gauge #400 ea 10/16/19 11/12/23 Rx (lancets) lancets 33 gauge (OneTouch Delica #400 ea 01/28/23 11/12/23 Rx Plus Lancet) acetone (urine) test (Ketostix 01/29/23 11/12/23 History strips) cinacalcet 60 mg tablet 60 mg PO DAILY #30 tabs 02/15/23 11/26/23 Rx atorvastatin 80 mg tablet (Lipitor) 80 mg PO DAILY #90 tabs 03/05/23 11/26/23 Rx apixaban 5 mg tablet (Eliquis) 5 mg PO BID 30 days #180 tabs 03/20/23 11/26/23 Rx blood-glucose meter,continuous #1 ea 03/20/23 11/12/23 Rx (Dexcom G7 [employer]) insulin detemir U-100 100 unit/mL 10 unit subcut PM 03/20/23 11/26/23 History (3 mL) subcutaneous pen amlodipine 10 mg tablet 10 mg PO DAILY #90 tabs 04/03/23 11/26/23 [facility] 05/21/23 11/12/23 Rx Verio test strips) blood-glucose meter (OneTouch #1 ea 05/21/23 11/12/23 Rx Verio Flex Meter) metoprolol succinate 50 mg 50 mg PO BID #180 tabs 05/21/23 11/26/23 Rx tablet,extended release 24 hr ammonium lactate 12 % topical cream 1 applic topical DAILY PRN Dry Skin 06/07/23 11/26/23 History duloxetine 60 mg capsule,delayed 60 mg PO QAM #90 caps 06/14/23 11/26/23 Rx release (Cymbalta) insulin aspart U-100 100 unit/mL 20 unit (0.2 mL) subcut TID #162 mL 07/12/23 11/26/23 Rx (3 mL) subcutaneous pen pen needle, diabetic 29 gauge x #400 ea 07/12/23 11/12/23 Rx 1/2" (Comfort EZ Pen [place]) bumetanide 2 mg tablet 4 mg (2 x 2 mg) PO BID #360 tabs 08/08/23 11/26/23 Rx blood-glucose sensor (Dexcom G7 #3 ea 08/27/23 11/12/23 Rx Sensor device) levothyroxine 75 mcg tablet 75 mcg PO DAILYBB 10/05/23 11/26/23 History meclizine 25 mg tablet 25 mg PO TID PRN dizziness or 10/10/23 11/26/23 Rx vertigo #30 tabs pregabalin 25 mg capsule (Lyrica) 25 mg PO BID #60 caps 10/18/23 11/26/23 Rx mszzyx-seidrihm-nsfleoc 2 cap PO .COMPLEX #180 caps 11/05/23 11/26/23 Rx 36,000-114,000-180,000 unit capsule,delay rel (Creon) sevelamer carbonate 800 mg tablet 800 mg PO TIDM #90 tabs 11/14/23 11/26/23 Rx vitamin B complex and vitamin C 1 cap PO QAM #30 caps 11/14/23 11/26/23 Rx no.20-folic acid 1 mg capsule (Renal Caps) tramadol 50 mg tablet 50 - 100 mg (1 - 2 x 50 mg) PO BID 11/27/23 Rx PRN pain #30 tabs Hospital Stay Data Consultations 11/26/23 09:44 ED Decision to Admit Stat 11/26/23 10:36 Consult Nephrology Routine 11/26/23 12:43 Consult Nephrology Routine Pending Results Patient Have Any Pending Studies at Discharge: No Discharge Instructions Given to Patient (Per Discharging Provider) All medications remain the same. Resume previous hemodialysis schedule. Total Time Total Time Spent Total Time Spent (In Minutes): 45 minutes Coding Level of Care Code 78061 INP/OBS DISCH >30 MIN Diagnoses Acute on chronic diastolic CHF (congestive heart failure) I50.33 Hyperkalemia E87.5 ESRD (end stage renal disease) N18.6 Diabetes mellitus type 1 with complications E10.8 Chronic venous insufficiency I87.2 Essential hypertension I10
[2023-11-27] MEDS: CINACALCET HCL 30 MG TAB PO SCH (11:58)
[2023-11-27] MEDS: ATORVASTATIN 40 MG TAB PO SCH (11:59)
[2023-11-27] MEDS: amLODIPine BESYLATE 5 MG TAB PO SCH (11:59)
[2023-11-27] MEDS: DULoxetine HCL 60 MG CAP PO SCH (11:59)
[2023-11-27] MEDS: NEPHROCAPS PO SCH (11:59)
[2023-11-27 12:07] VITALS: O2SAT 97
[2023-11-27 12:39] VITALS: BP 144/85; PULSE 68
== END 2023-11-27 13:18 | disposition home or self-care (01) | DRG 291 ==
LOC: SUATTDRO → ED 07:44 → EDINP 09:50 → INTOOBSV 09:50 → EDINP 12:43 → 2W 20:32

== ENCOUNTER 2024-01-31 17:41 | Observation (INO) ==
--- NOTE | 2024-01-31 18:04 | Emergency Department Note ---
Impression & Plan Volume overload, ESRD on dialysis, Hypoxia, Pulmonary edema ED Provider Note NAME: VIJAYA HAMILTON AGE: 43 SEX: M : 1980 ARRIVES VIA: Ambulance INFORMANT: Patient, EMS report ED PROVIDER(S): Shiv Hughes MD CHIEF COMPLAINT: Dizziness MEDICAL DECISION MAKING: Patient presents due to concern for dizziness. IV was established and blood work was obtained. Patient's chest x-ray was also performed. The patient does have some signs of volume overload and does have bibasilar crackles noted. Patient does not make any urine. Patient has a leukopenia with anemia relatively chronic. Platelet count is unremarkable. The patient's kidney function with grade of 5.2. Troponin negative. TSH normal. The patient does not make any urine so not amenable to diuretic treatment given the patient did not have a full dialysis session. The patient did undergo an ambulatory pulse ox trial and desatted to 88%. Given these concerns I did speak the on-call hospital service Dr. Han as well as Dr. Jackson with nephrology. Patient will get a dialysis session tomorrow morning. Patient is not extremis at this time. Critical Care: I have personally spent 35 minutes of critical care time in direct management of this patient. This includes bedside care, interpretation of diagnostic studies, and testing, discussion with consultants, patient, and family members, and other require inpatient management activities. This 35 minutes is in excess of all separately billable procedures. Discussion w/ other healthcare providers: Dr. Han inpatient medicine service Dr. Jackson nephrology Prior /Outside records reviewed: I reviewed a brief operative report from Dr. Combs patient did have a left forearm fistulogram completed. 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 No other areas of stenosis lesion was ballooned at that time. Differential diagnosis: Benign positional vertigo, dehydration, hypovolemia, anemia, infection, hypoglycemia, electrolyte abnormalities, arrhythmia, tox among others were considered. Diagnostics, as interpreted by me: ECG: Normal sinus rhythm, rate of 76, normal intervals, normal axis no ST elevations no significant change for comparison November 26, 2023. Cardiac monitoring: An order was placed for continuous cardiac monitoring. The monitor shows a rate of 75 with sinus rhythm. Patient was placed on pulse oximetry Medical decision rules: None Imaging studies: I informally interpreted the patient's chest x-ray does show pulmonary edema with formal report to follow. HPI: Patient presents from home via EMS due to concern for dizziness. The patient reports that he has had chronic issues with shortness of breath but states that he has felt dizzy since the time that he left the hospital earlier today. Patient reports that he did have a fistulogram but did have a balloon angioplasty completed with Dr. Combs earlier today. The patient did have a dialysis session about an hour and a half typically goes 4 hours but this was the longest he could go at [facility] today. The patient did have his last dialysis on Saturday. Patient denies any chest pains. No cough. The patient does have chronic lower extremity swelling which is unchanged per patient. Patient states that he is trying to get some at home oxygen. PAST MEDICAL HISTORY: See Below PAST SURGICAL HISTORY: See Below SOCIAL HISTORY: See Below HOME MEDICATIONS: See Below ALLERGIES: See Below VITALS: See Below PHYSICAL EXAMINATION: GENERAL: NAD, non-toxic. EYE EXAM: Normal conjunctiva. PERRL, no anisocoria and EOM's grossly intact w/o pain. OROPHARYNX: Moist mucus membranes, grossly normal dentition. NECK: Trachea midline, no stridor. Supple, no nuchal rigidity, no adenopathy, non-tender. No signs of meningismus. FROM of the neck with good chin to chest and neck extension. LUNGS: Clear to auscultation. Normal chest wall mechanics. HEART: NSR, no MRG. ABDOMEN: Abdomen soft, non-tender, no masses, no rebound or guarding. BACK: No CVA TTP. SKIN: No rashes and no bruising. UPPER EXTREMITIES: Upper extremities are grossly normal. Left upper extremity AV fistula with palpable thrill. LOWER EXTREMITIES: Grossly normal, no edema. NEURO EXAM: A&O x3, cranial nerves II-XII grossly intact, normal speech, moves all 4 extremities. Past Med/Surg History Problem List (Updated 01/31/24 @ 20:22 by Shiv Hughes MD) Pulmonary edema (Acute) Hypoxia (Acute) ESRD on dialysis (Acute) Volume overload (Acute) Adverse effect of COVID-19 vaccine (Acute) Exocrine pancreatic insufficiency (Chronic) Suspected sleep apnea (Chronic) Paroxysmal atrial fibrillation (Chronic) Dyslipidemia (Chronic) GERD (gastroesophageal reflux disease) (Chronic) Hypertension (Chronic) ESRD (end stage renal disease) on dialysis (Chronic) (HFpEF) heart failure with preserved ejection fraction (Chronic) Anemia (Chronic) Diabetic nephropathy associated with type 1 diabetes mellitus (Chronic) Anxiety and depression (Chronic) Diabetic proliferative retinopathy (Chronic) Hypothyroidism (Chronic) Obesity (Chronic) 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) Medical History Essential hypertension Diabetic neuropathy Chronic venous insufficiency Diabetes mellitus type 1 with complications Anemia due to chronic kidney disease ESRD (end stage renal disease) requiring hemodialysis. MWF at [facility]. 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) Surgical History History of esophagogastroduodenoscopy (EGD) H/O detached retina repair S/P arteriovenous (AV) fistula creation left side, unable to use Family History Mother Diabetes Coronary heart disease Hypertension Father Coronary heart disease Hypertension Brother Coronary heart disease Kidney disease Uncle Colorectal cancer Grandmother Diabetes Aunt Diabetes Unknown Dyslipidemia Grandfather (Maternal) Diabetes Other Cancer No family history of adverse response to anesthesia Social History Smoking Status: Never smoker Second Hand Exposure: No; Do You Dip or Chew Tobacco: No; Hx Alcohol Use: No Hx Substance Use: No Preferred Language: Zambian Communication Ability: Effective Visual Impairment: No Limitations Hearing Ability: Normal [employer] 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: No Beliefs That Will Affect Care: None marital status: Single Current Living Situation: Alone Current Living Situation Comment: Brother 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" How many Children do You have: 0 Feels Safe at Home: Yes Diet: regular Dental Care, Regularly: No Physical Activity Frequency: Does not Exercise Seatbelt Use: always Sunscreen Use: No Assistive Devices: Cane Allergies Allergies Allergy/AdvReac Type Severity Reaction Status Date / Time lisinopril AdvReac Intermediate COUGH Verified 01/31/24 09:07 Home Meds Home Medications Medication Instructions Recorded Confirmed acetone (urine) test (Ketostix 01/29/23 01/17/24 strips) insulin detemir U-100 100 unit/mL 10 unit subcut PM 03/20/23 01/31/24 (3 mL) subcutaneous pen ammonium lactate 12 % topical cream 1 applic topical DAILY PRN Dry Skin 06/07/23 01/31/24 levothyroxine 75 mcg tablet 75 mcg PO DAILYBB 10/05/23 01/31/24 Previous Rx's Medication Instructions Recorded OneTouch Delica Lancets 33 gauge #400 ea 10/16/19 (lancets) lancets 33 gauge (OneTouch Delica #400 ea 01/28/23 Plus Lancet) cinacalcet 60 mg tablet 60 mg PO DAILY #30 tabs 02/15/23 blood-glucose meter,continuous #1 ea 03/20/23 (Dexcom G7 Bunch Trimmer Mold) blood sugar diagnostic (OneTouch #400 ea 05/21/23 Verio test strips) blood-glucose meter (OneTouch #1 ea 05/21/23 Verio Flex Meter) duloxetine 60 mg capsule,delayed 60 mg PO QAM #90 caps 06/14/23 release (Cymbalta) insulin aspart U-100 100 unit/mL 20 unit (0.2 mL) subcut TID #162 mL 07/12/23 (3 mL) subcutaneous pen pen needle, diabetic 29 gauge x #400 ea 07/12/23 1/2" (Comfort EZ Pen Mcclellan) bumetanide 2 mg tablet 4 mg (2 x 2 mg) PO BID #360 tabs 08/08/23 blood-glucose sensor (Dexcom G7 #3 ea 08/27/23 Sensor device) meclizine 25 mg tablet 25 mg PO TID PRN dizziness or 10/10/23 vertigo #30 tabs vitamin B complex and vitamin C 1 cap PO QAM #30 caps 11/14/23 no.20-folic acid 1 mg capsule (Renal Caps) sevelamer carbonate 800 mg tablet 800 mg PO TIDM 90 days #240 tabs 12/05/23 atorvastatin 80 mg tablet (Lipitor) 80 mg PO DAILY #90 tabs 12/10/23 [id number]-dboamvlk-ngsdalk 2 cap PO .COMPLEX #180 caps 12/10/23 36,000-114,000-180,000 unit capsule,delay rel (Creon) pregabalin 25 mg capsule (Lyrica) 25 mg PO TID #90 caps 12/10/23 apixaban 5 mg tablet (Eliquis) 5 mg PO BID 30 days #180 tabs 12/13/23 tramadol 50 mg tablet 50 - 100 mg (1 - 2 x 50 mg) PO BID 01/23/24 PRN pain #120 tabs metoprolol succinate 100 mg 100 mg PO BID #180 tabs 01/24/24 tablet,extended release 24 hr Results & Data (ED) Vital Signs Vital Signs - 24 hr 01/31/24 17:50 01/31/24 17:54 01/31/24 17:58 Temperature 36.7 C Temperature Source Oral Pulse Rate 76 77 Pulse Rate [Radial] 74 Respiratory Rate 18 18 Respiratory Depth Normal Blood Pressure 180/94 H Blood Pressure [Left Arm] 180/94 H Blood Pressure Mean 122 Blood Pressure Mean [Left Arm] 122 Pulse Oximetry 95 95 Oxygen Delivery Method Room Air Room Air Oxygen Flow Rate Sepsis Recent Fever Within 48 Hours No Sepsis New/Unexplained Change in Mental Status No Sepsis Action Taken by Nursing No Action Required 01/31/24 19:21 01/31/24 19:26 01/31/24 19:28 Temperature Temperature Source Pulse Rate Pulse Rate [Radial] 71 Respiratory Rate 22 Respiratory Depth Blood Pressure Blood Pressure [Left Arm] 144/85 H Blood Pressure Mean Blood Pressure Mean [Left Arm] 104 Pulse Oximetry 97 88 L 88 L Oxygen Delivery Method Nasal Cannula Room Air Room Air Oxygen Flow Rate 2 Sepsis Recent Fever Within 48 Hours Sepsis New/Unexplained Change in Mental Status Sepsis Action Taken by Retirement Medications Current Medication List: was personally reviewed by me Laboratory Data Attestation: I reviewed the patient's lab results. 01/31/24 17:57 01/31/24 17:57 Lab Results 01/31/24 Range/Units 17:57 WBC 4.16 L (4.8-10.8) K/ul RBC 2.70 L (4.70-6.10) M/uL Hgb 7.9 L (14.0-18.0) g/dl Hct 24.4 L (42.0-52.0) % MCV 90.4 (80.0-100.0) fL MCH 29.3 (25.0-34.0) pg MCHC 32.4 (32.0-36.0) g/dL RDW Std Deviation 48.8 H (36.4-46.3) fL RDW Coeff of Yuki 15.2 H (11.5-14.5) % Plt Count 143 (130-400) K/uL MPV 11.5 (9.4-12.4) fL Immature Gran % (Auto) 0.5 % Neut % (Auto) 67.3 % Lymph % (Auto) 20.7 % [place] % (Auto) 7.9 % Eos % (Auto) 3.1 % Baso % (Auto) 0.5 % Neut # (Auto) 2.80 (1.40-6.50) K/uL Lymph # (Auto) 0.86 L (1.20-3.40) K/uL [place] # (Auto) 0.33 (0.11-0.59) K/uL Eos # (Auto) 0.13 (0.00-0.50) K/uL Baso # (Auto) 0.02 (0.00-0.20) K/uL Immature Gran # (Auto) 0.02 (0.01-0.20) K/uL Polychromasia 1+ Ovalocytes 1+ PT 11.4 (9.0-12.0) Seconds INR 1.1 (0.9-1.1) Sodium 137 (136-145) mmol/L Potassium 4.2 (3.5-5.1) mmol/L Chloride 91 L (98-107) mmol/L Carbon Dioxide 36 H (21-32) mmol/L Anion Gap 10 (3-11) BUN 25 H (6-23) mg/dl Creatinine 5.23 H* (0.6-1.4) mg/dl Est Cr Clr Drug Dosing 21.0 ml/min eGFR 13.24 BUN/Creatinine Ratio 4.8 L (10-20) Glucose 178 H (70-99(Fasting)) mg/dl Calcium 9.1 (8.6-10.3) mg/dl Magnesium 1.8 (1.7-2.4) mg/dl Total Bilirubin 1.1 H (0.2-1.0) mg/dl AST 16 (13-39) U/L ALT 12 (7-52) U/L Alkaline Phosphatase 150 H (34-104) U/L Troponin I High Sens 13.7 (0-20) pg/ml Total Protein 8.0 (6.0-8.3) gm/dl Albumin 4.0 (3.4-5.0) gm/dl Globulin 4.0 (2.5-4.0) gm/dl Albumin/Globulin Ratio 1.0 (0.9-2) TSH 1.927 (0.300-4.500) uIu/ml Imaging Data Radiologist's Impression: Chest X-Ray 01/31/24 18:15 SINGLE VIEW CHEST CLINICAL HISTORY: Generalized weakness. FINDINGS: An AP, portable, upright chest radiograph is compared to study dated 11/27/2023. The heart is enlarged noting atherosclerotic calcification of the thoracic aorta. There is probably vascular congestion with mild interstitial edema. No large pleural effusion or pneumothorax is seen. The skeletal structures are osteopenic. The bony thorax is grossly intact. IMPRESSION: Cardiomegaly with evidence of congestive failure and mild pulmonary edema. Clinical correlation will be required and radiographic follow-up to resolution is recommended. ACT 112: Negative or not required by law. Electronically signed by: Aaron Mcguire M.D. 01/31/2024 6:44 PM Discharge Plan Visit Data Chief Complaint: Illness Stated Complaint: ILLNESS ED Provider: Shiv Hughes Discharge Problem: Volume overload, ESRD on dialysis, Hypoxia, Pulmonary edema Forms Stand Alone Forms: My [facility] [place] [facility] Prescriptions Prescriptions: No Action (DME) lancets [OneTouch Delica Plus Lancet] 33 gauge misc See Rx Instructions .Route Qty: 400 3RF Rx Instructions: test blood sugars 4 times daily cinacalcet 60 mg tablet 60 mg PO DAILY Qty: 30 2RF duloxetine [Cymbalta] 60 mg capsule,delayed release(DR/EC) 60 mg PO QAM Qty: 90 3RF (DME) pen needle, diabetic [Comfort EZ Pen Mcclellan] 29 gauge x 1/2" needle See Rx Instructions .ROUTE .MEDSUPPLY Qty: 400 3RF Rx Instructions: use 4 x daily insulin aspart U-100 100 unit/mL (3 mL) insulin pen 20 unit subcut TID Qty: 162 3RF Rx Instructions: Sliding Scale bumetanide 2 mg tablet 4 mg PO BID Qty: 360 1RF sevelamer carbonate 800 mg tablet 800 mg PO TIDM 90 Days Qty: 240 1RF Eliquis 5 mg tablet 5 mg PO BID 30 Days Qty: 180 3RF tramadol 50 mg tablet 50 - 100 mg PO BID MDD 4 tabs PRN (Reason: pain) Qty: 120 0RF Rx Instructions: 1-2 tabs orally twice a day PRN; metoprolol succinate 100 mg tablet extended release 24 hr 100 mg PO BID Qty: 180 3RF (DME) Ketostix Strip See Rx Instructions .ROUTE .MEDSUPPLY Rx Instructions: As directed (DME) Dexcom G7 Sensor Device See Rx Instructions .Route Qty: 3 5RF Rx Instructions: As directed (DME) lancets [OneTouch Delica Lancets] 33 gauge misc See Rx Instructions .ROUTE .MEDSUPPLY Qty: 400 3RF Rx Instructions: test blood suigars 4 x daily (DME) Dexcom G7 Bunch Trimmer Mold Misc See Rx Instructions .Route Qty: 1 0RF Rx Instructions: As directed insulin detemir U-100 100 unit/mL (3 mL) insulin pen 10 unit SQ PM (DME) blood-glucose meter [OneTouch Verio Flex meter] [facility] See Rx Instructions .ROUTE .MEDSUPPLY Qty: 1 0RF Rx Instructions: As directed (DME) OneTouch Verio test strips Strip See Rx Instructions .ROUTE .MEDSUPPLY Qty: 400 3RF Rx Instructions: Test 4 times daily meclizine 25 mg tablet 25 mg PO TID PRN (Reason: dizziness or vertigo) Qty: 30 2RF Creon 36,000-114,000- 180,000 unit capsule,delayed release(DR/EC) 2 cap PO .COMPLEX Qty: 180 2RF Rx Instructions: 2 caps orally with meals and 1 cap with snacks; administer with meals and/or snacks atorvastatin [Lipitor] 80 mg tablet 80 mg PO DAILY Qty: 90 3RF pregabalin [Lyrica] 25 mg capsule 25 mg PO TID Qty: 90 1RF Patient Comments: has not started yet due to insurace will switch from gabapentin ammonium lactate 12 % cream 1 applic topical DAILY PRN (Reason: Dry Skin) Rx Instructions: Apply to lower legs and feet daily with dressing changes. levothyroxine 75 mcg tablet 75 mcg PO DAILYBB Renal Caps 1 mg Capsule 1 cap PO QAM Qty: 30 0RF Referrals Referrals: Maki Peterson MD [Primary Care Provider] - Discharge Problem: Volume overload Qualifiers: Hypervolemia type: unspecified Qualified Code(s): E87.70 - Fluid overload, unspecified Pulmonary edema Qualifiers: Chronicity: acute Qualified Code(s): J81.0 - Acute pulmonary edema
[2024-01-31 18:30] LABS: Basophils # (auto) 0.02 K/uL (0.00-0.20); Basophils % (auto) 0.5 %; Eosinophils # (auto) 0.13 K/uL (0.00-0.50); Eosinophils % (auto) 3.1 %; Hematocrit (blood only) 24.4 % (42.0-52.0); Hemoglobin 7.9 g/dl (14.0-18.0); Immature Granulocytes # (auto) 0.02 K/uL (0.01-0.20); Immature Granulocytes % (auto) 0.5 %; Lymphocytes # (auto) 0.86 K/uL (1.20-3.40); Lymphocytes % (auto) 20.7 %; Mean Corpuscular Hemoglobin 29.3 pg (25.0-34.0); Mean Corpuscular Hgb Conc 32.4 g/dL (32.0-36.0); Mean Corpuscular Volume 90.4 fL (80.0-100.0); Mean Platelet Volume 11.5 fL (9.4-12.4); Monocytes # (auto) 0.33 K/uL (0.11-0.59); Monocytes % (auto) 7.9 %; Neutrophils % (auto) 67.3 %; Platelet Count 143 K/uL (130-400); RDW Coefficient of Variation 15.2 % (11.5-14.5); RDW Standard Deviation 48.8 fL (36.4-46.3); White Blood Count 4.16 K/ul (4.8-10.8)
--- NOTE | 2024-01-31 18:45 | XRay Report ---
SINGLE VIEW CHEST CLINICAL HISTORY: Generalized weakness. FINDINGS: An AP, portable, upright chest radiograph is compared to study dated 11/27/2023. The heart is enlarged noting atherosclerotic calcification of the thoracic aorta. There is probably vascular jm estion with mild interstitial edema. No large pleural effusion or pneumothorax is seen. The skeletal structures are osteopenic. The bony thorax is grossly intact. IMPRESSION: Cardiomegaly with evidence of congestive failure and mild pulmonary edema. Clinical corre lation will be required and radiographic follow-up to resolution is recommended. ACT 112: Negative or not required by law. Electronically signed by: Aaron Mcguire M.D. 01/31/2024 6:44 PM
[2024-01-31 18:52] LABS: BUN Creatinine Ratio 4.8 (10-20); Bilirubin,Total 1.1 mg/dl (0.2-1.0); Calcium 9.1 mg/dl (8.6-10.3); Magnesium 1.8 mg/dl (1.7-2.4); Potassium 4.2 mmol/L (3.5-5.1)
[2024-01-31 18:57] LABS: INR 1.1 (0.9-1.1); Prothrombin Time 11.4 Seconds (9.0-12.0)
[2024-01-31 19:05] LABS: Ovalocytes 1+; Polychromasia 1+
[2024-01-31 19:07] LABS: Thyroid Stimulating Hormone 1.927 uIu/ml (0.300-4.500); Troponin I High Sensitivity 13.7 pg/ml (0-20)
[2024-01-31] MEDS ORDERED: GLUCOSE 10 TAB/TUBE PO PRN (20:11)
[2024-01-31] MEDS ORDERED: CARBOHYDRATES FOR HYPOGLYCEMIA PO PRN (20:11)
[2024-01-31] MEDS ORDERED: GLUCOSE 40% GEL 15 GM TUBE PO PRN (20:11)
[2024-01-31] MEDS ORDERED: DEXTROSE 50% 50 ML SYRINGE IV PRN (20:11)
[2024-01-31] MEDS ORDERED: GLUCAGON FOR INJ 1 MG VIAL SQ PRN (20:11)
--- NOTE | 2024-01-31 20:32 | History & Physical Report ---
Date of Service January 31, 2024 Assessment & Plan (1) ESRD needing dialysis: (2) ESRD on dialysis: (3) Pulmonary edema: (4) Volume overload: (5) (HFpEF) heart failure with preserved ejection fraction: (6) Exocrine pancreatic insufficiency: (7) Paroxysmal atrial fibrillation: (8) Hypertension: (9) Diabetic neuropathy: (10) Hypertension: (11) GERD (gastroesophageal reflux disease): (12) Dyslipidemia: (13) Suspected sleep apnea: (14) Hypoxia: (15) Diabetes mellitus type 1 with complications: Plan ESRD on HD needing dialysis/pulmonary edema/fluid overload/HFpEF/acute respiratory failure with hypoxia- Patient was only able to receive 1-1/2 hours of dialysis today, due to having a fistulogram performed on his left forearm. Pulse ox 88% on room air with ambulation, improved 100% with 2 L nasal cannula Admit to monitored bed Give a dose of Bumex 4 mg IV this evening, and then resume max 4 mg p.o. twice daily in the morning Continue Cinacalcet, renal caps, and sevelamer Consult nephrology Dr. Kennedy Repeat CBC with differential, BMP and magnesium level in the a.m. Diabetes mellitus- Patient reports that he takes Levemir 20 units at bedtime if glucose is above 250, otherwise just takes Humalog Placed on glargine 10 units subcu at bedtime Placed on Accu-Cheks with NovoLog SSI Exocrine pancreatic insufficiency- Typical dosing is Creon 36,000, taking 2 capsules p.o. 3 times daily with meals Placing on Creon 10, 3 capsules 3 times daily with meals History of pulmonary embolism- Continue apixaban Severe peripheral neuropathy- Continue duloxetine and pregabalin Acetaminophen 650 mg by mouth every 6 hours as needed for mild pain or fever Tramadol 50 mg p.o. twice daily as needed moderate pain History of Present Illness Chief Complaint: The patient presents to the emergency department with shortness of breath and fatigue after receiving a partial dialysis treatment this morning, but does report that he did have his dry weight reached. Primary Care Provider: Maki Peterson MD The patient is a 43-year-old male on HD, exocrine pancreatic insufficiency, AMELIA, PAF, dyslipidemia, GERD, HFpEF, severe diabetic peripheral neuropathy, hypothyroidism, and anxiety with Depression. He had seen vascular surgery Dr. Combs this morning, and had a left forearm fistulogram completed. He then went to dialysis, and was only able to have 1-1/2 hours of dialysis performed, due to the center closing. He reports that he did get taken down to his dry weight, but has reported shortness of breath and fatigue throughout the day today. In the emergency department workup included a chest x-ray which showed pulmonary vascular congestion and CHF. He was also found to have ambulatory pulse ox of 88%, which improved 100% on 2 L nasal cannula, and was then referred for evaluation for admission. Allergies Allergy/AdvReac Type Severity Reaction Status Date / Time lisinopril AdvReac Intermediate COUGH Verified 01/31/24 09:07 Home Medications Medication Instructions Recorded Confirmed Type OneTouch Delica Lancets 33 gauge #400 ea 10/16/19 01/17/24 Rx (lancets) lancets 33 gauge (OneTouch Delica #400 ea 01/28/23 01/17/24 Rx Plus Lancet) acetone (urine) test (Ketostix 01/29/23 01/17/24 History strips) cinacalcet 60 mg tablet 60 mg PO DAILY #30 tabs 02/15/23 01/31/24 Rx blood-glucose meter,continuous #1 ea 03/20/23 01/17/24 Rx (Dexcom G7 Retention Specialist) insulin detemir U-100 100 unit/mL 10 unit subcut PM 03/20/23 01/31/24 History (3 mL) subcutaneous pen blood sugar diagnostic (OneTouch #400 ea 05/21/23 01/17/24 Rx Verio test strips) blood-glucose meter (OneTouch #1 ea 05/21/23 01/17/24 Rx Verio Flex Meter) ammonium lactate 12 % topical cream 1 applic topical DAILY PRN Dry Skin 06/07/23 01/31/24 History duloxetine 60 mg capsule,delayed 60 mg PO QAM #90 caps 06/14/23 01/31/24 Rx release (Cymbalta) insulin aspart U-100 100 unit/mL 20 unit (0.2 mL) subcut TID #162 mL 07/12/23 01/31/24 Rx (3 mL) subcutaneous pen pen needle, diabetic 29 gauge x #400 ea 07/12/23 01/17/24 Rx 1/2" (Comfort EZ Pen [place]) bumetanide 2 mg tablet 4 mg (2 x 2 mg) PO BID #360 tabs 08/08/23 01/31/24 Rx blood-glucose sensor (Dexcom G7 #3 ea 08/27/23 01/17/24 Rx Sensor device) levothyroxine 75 mcg tablet 75 mcg PO DAILYBB 10/05/23 01/31/24 History meclizine 25 mg tablet 25 mg PO TID PRN dizziness or 10/10/23 01/31/24 Rx vertigo #30 tabs vitamin B complex and vitamin C 1 cap PO QAM #30 caps 11/14/23 01/31/24 Rx no.20-folic acid 1 mg capsule (Renal Caps) sevelamer carbonate 800 mg tablet 800 mg PO TIDM 90 days #240 tabs 12/05/23 01/31/24 Rx atorvastatin 80 mg tablet (Lipitor) 80 mg PO DAILY #90 tabs 12/10/23 01/31/24 Rx [id number] 2 cap PO .COMPLEX #180 caps 12/10/23 01/31/24 Rx 36,000-114,000-180,000 unit capsule,delay rel (Creon) pregabalin 25 mg capsule (Lyrica) 25 mg PO TID #90 caps 12/10/23 01/31/24 Rx apixaban 5 mg tablet (Eliquis) 5 mg PO BID 30 days #180 tabs 12/13/23 01/31/24 Rx tramadol 50 mg tablet 50 - 100 mg (1 - 2 x 50 mg) PO BID 01/23/24 01/31/24 Rx PRN pain #120 tabs metoprolol succinate 100 mg 100 mg PO BID #180 tabs 01/24/24 01/31/24 Rx tablet,extended release 24 hr Past Med/Surg History Problem List (Updated 01/31/24 @ 22:37 by Yoav Patrick MD) Diabetes mellitus type 1 with complications Diabetic neuropathy Pulmonary edema (Acute) Hypoxia (Acute) ESRD on dialysis (Acute) Volume overload (Acute) Adverse effect of COVID-19 vaccine (Acute) Exocrine pancreatic insufficiency (Chronic) Suspected sleep apnea (Chronic) Paroxysmal atrial fibrillation (Chronic) Dyslipidemia (Chronic) GERD (gastroesophageal reflux disease) (Chronic) Hypertension (Chronic) ESRD (end stage renal disease) on dialysis (Chronic) (HFpEF) heart failure with preserved ejection fraction (Chronic) Anemia (Chronic) Diabetic nephropathy associated with type 1 diabetes mellitus (Chronic) Anxiety and depression (Chronic) Diabetic proliferative retinopathy (Chronic) Hypothyroidism (Chronic) Obesity (Chronic) 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) Medical History (Updated 01/31/24 @ 22:37 by Yoav Patrick MD) Essential hypertension Chronic venous insufficiency Anemia due to chronic kidney disease ESRD (end stage renal disease) requiring hemodialysis. MWF at [facility]. 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) Surgical History History of esophagogastroduodenoscopy (EGD) H/O detached retina repair S/P arteriovenous (AV) fistula creation left side, unable to use Family History Mother Diabetes Coronary heart disease Hypertension Father Coronary heart disease Hypertension Brother Coronary heart disease Kidney disease Uncle Colorectal cancer Grandmother Diabetes Aunt Diabetes Unknown Dyslipidemia Grandfather (Maternal) Diabetes Other Cancer No family history of adverse response to anesthesia Social History Smoking Status: Never smoker Second Hand Exposure: No; Do You Dip or Chew Tobacco: No; Hx Alcohol Use: Yes Alcohol type: beer, wine and hard liquor Hx Substance Use: Yes Last Used Substance: Days (ago) Preferred Language: Belgian Communication Ability: Effective Visual Impairment: No Limitations Hearing Ability: Normal Central Office Operator Required: No Beliefs That Will Affect Care: None marital status: Single Current Living Situation: Alone Current Living Situation Comment: Brother 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" How many Children do You have: 0 Feels Safe at Home: Yes Diet: regular Dental Care, Regularly: No Physical Activity Frequency: Does not Exercise Seatbelt Use: always Sunscreen Use: No Assistive Devices: Cane Review of Systems Review of Systems: The patient denies chest pain, palpitations, cough, lower extremity swelling, sore throat, fevers, chills, sweats, nausea, vomiting, diarrhea , constipation, abdominal pain, pelvic pain, blood in urine or stool, dysuria, urinary frequency or urgency, lightheadedness, dizziness, headache, memory loss, loss of consciousness, rash, abnormal bruising or bleeding, imbalance, focal or generalized weakness, numbness or tingling in arms or legs, generalized arthralgias or myalgias, back or neck pain, or night sweats. The review of systems is otherwise negative other than for that already noted above, and at least 10 systems have been reviewed. Physical Exam Physical Exam: The patient is awake, alert and oriented 3, well developed and well nourished, normocephalic and atraumatic, lying in bed and in no acute distress. HEENT--PERRL, EOMI, mucous membranes and oropharynx dry. Neck--supple.No JVD. No bruits. Thyroid normal, trachea midline, no adenopathy. Heart--normal S1 and S2.No murmurs, rubs or gallops. Lungs--crackles at the bases to longterm up bilaterally. No respiratory distress, no accessory muscle use. Abdomen--normal bowel sounds and soft. Nontender. Nondistended. Obese Extremities--No edema. There are good distal pulses b/l. Dermatologic--normal skin turgor, normal color, no abnormal lymph nodes, no rash. Neurologic--cranial nerves II through XII grossly intact. Rheumatologic--normal range of motion. Psychiatric--normal affect. Results & Data Results & Data Vital Signs (Past 12 Hours) Vital Signs Temp Pulse Pulse Resp BP BP Pulse Ox 01/31/24 19:28 88 L 01/31/24 19:26 88 L 01/31/24 19:21 71 22 144/85 H 97 01/31/24 17:58 77 01/31/24 17:54 74 18 180/94 H 95 01/31/24 17:50 36.7 C 76 18 180/94 H 95 O2 Del Method O2 Flow Rate 01/31/24 19:28 Room Air 01/31/24 19:26 Room Air 01/31/24 19:21 Nasal Cannula 2 01/31/24 17:58 01/31/24 17:54 Room Air 01/31/24 17:50 Room Air Laboratory Results Laboratory Results WBC 4.16 K/ul (4.8-10.8) L 01/31/24 17:57 RBC 2.70 M/uL (4.70-6.10) L 01/31/24 17:57 Hgb 7.9 g/dl (14.0-18.0) L 01/31/24 17:57 Hct 24.4 % (42.0-52.0) L 01/31/24 17:57 MCV 90.4 fL (80.0-100.0) 01/31/24 17:57 MCH 29.3 pg (25.0-34.0) 01/31/24 17:57 MCHC 32.4 g/dL (32.0-36.0) 01/31/24 17:57 RDW Std Deviation 48.8 fL (36.4-46.3) H 01/31/24 17:57 RDW Coeff of Yuki 15.2 % (11.5-14.5) H 01/31/24 17:57 Plt Count 143 K/uL (130-400) 01/31/24 17:57 MPV 11.5 fL (9.4-12.4) 01/31/24 17:57 Immature Gran % (Auto) 0.5 % 01/31/24 17:57 Neut % (Auto) 67.3 % 01/31/24 17:57 Lymph % (Auto) 20.7 % 01/31/24 17:57 [place] % (Auto) 7.9 % 01/31/24 17:57 Eos % (Auto) 3.1 % 01/31/24 17:57 Baso % (Auto) 0.5 % 01/31/24 17:57 Neut # (Auto) 2.80 K/uL (1.40-6.50) 01/31/24 17:57 Lymph # (Auto) 0.86 K/uL (1.20-3.40) L 01/31/24 17:57 [place] # (Auto) 0.33 K/uL (0.11-0.59) 01/31/24 17:57 Eos # (Auto) 0.13 K/uL (0.00-0.50) 01/31/24 17:57 Baso # (Auto) 0.02 K/uL (0.00-0.20) 01/31/24 17:57 Immature Gran # (Auto) 0.02 K/uL (0.01-0.20) 01/31/24 17:57 Polychromasia 1+ 01/31/24 17:57 Ovalocytes 1+ 01/31/24 17:57 PT 11.4 Seconds (9.0-12.0) 01/31/24 17:57 INR 1.1 (0.9-1.1) 01/31/24 17:57 Sodium 137 mmol/L (136-145) 01/31/24 17:57 Potassium 4.2 mmol/L (3.5-5.1) 01/31/24 17:57 Chloride 91 mmol/L (98-107) L 01/31/24 17:57 Carbon Dioxide 36 mmol/L (21-32) H 01/31/24 17:57 Anion Gap 10 (3-11) 01/31/24 17:57 BUN 25 mg/dl (6-23) H 01/31/24 17:57 Creatinine 5.23 mg/dl (0.6-1.4) H* 01/31/24 17:57 Est Cr Clr Drug Dosing 21.0 ml/min 01/31/24 17:57 eGFR 13.24 01/31/24 17:57 BUN/Creatinine Ratio 4.8 (10-20) L 01/31/24 17:57 Glucose 178 mg/dl (70-99(Fasting)) H 01/31/24 17:57 POC Glucose 190 mg/dl (70-99) H 01/31/24 20:19 Calcium 9.1 mg/dl (8.6-10.3) 01/31/24 17:57 Magnesium 1.8 mg/dl (1.7-2.4) 01/31/24 17:57 Total Bilirubin 1.1 mg/dl (0.2-1.0) H 01/31/24 17:57 AST 16 U/L (13-39) 01/31/24 17:57 ALT 12 U/L (7-52) 01/31/24 17:57 Alkaline Phosphatase 150 U/L (34-104) H 01/31/24 17:57 Troponin I High Sens 13.7 pg/ml (0-20) 01/31/24 17:57 Total Protein 8.0 gm/dl (6.0-8.3) 01/31/24 17:57 Albumin 4.0 gm/dl (3.4-5.0) 01/31/24 17:57 Globulin 4.0 gm/dl (2.5-4.0) 01/31/24 17:57 Albumin/Globulin Ratio 1.0 (0.9-2) 01/31/24 17:57 TSH 1.927 uIu/ml (0.300-4.500) 01/31/24 17:57 Impressions Chest X-Ray 01/31/24 18:15 SINGLE VIEW CHEST CLINICAL HISTORY: Generalized weakness. FINDINGS: An AP, portable, upright chest radiograph is compared to study dated 11/27/2023. The heart is enlarged noting atherosclerotic calcification of the thoracic aorta. There is probably vascular congestion with mild interstitial edema. No large pleural effusion or pneumothorax is seen. The skeletal structures are osteopenic. The bony thorax is grossly intact. IMPRESSION: Cardiomegaly with evidence of congestive failure and mild pulmonary edema. Clinical correlation will be required and radiographic follow-up to resolution is recommended. ACT 112: Negative or not required by law. Electronically signed by: Aaron Mcguire M.D. 01/31/2024 6:44 PM Code Status & VTE Plan Code Status Full code VTE Prophylaxis Plan VTE Prophylaxis will be ordered: Yes PG Care Time/CCT Total # of Minutes Spent Total Time Spent with Patient: Total time spent is greater than 50% in coordination of care (as documented) at patient's floor/unit and/or counseling patient: Coding Level of Care Code 83909 INT INP/OBS CARE 3/75MIN Diagnoses ESRD needing dialysis N18.6; Z99.2 ESRD on dialysis N18.6; Z99.2 Pulmonary edema J81.0 Chronicity: acute Volume overload E87.70 Hypervolemia type: unspecified (HFpEF) heart failure with preserved ejection fraction I50.30 Exocrine pancreatic insufficiency K86.81 Paroxysmal atrial fibrillation I48.0 Hypertension I10 Diabetic neuropathy E11.40 Gastroesophageal reflux disease, esophagitis presence not specified K21.9 Esophagitis presence: esophagitis presence not specified Dyslipidemia E78.5 Suspected sleep apnea R29.818 Hypoxia R09.02 Diabetes mellitus type 1 with complications E10.8 (3) Pulmonary edema Chronicity: acute Qualified Code(s): J81.0 - Acute pulmonary edema (4) Volume overload Hypervolemia type: unspecified Qualified Code(s): E87.70 - Fluid overload, unspecified (10) GERD (gastroesophageal reflux disease) Esophagitis presence: esophagitis presence not specified Qualified Code(s): K21.9 - Gastro-esophageal reflux disease without esophagitis
[2024-01-31] MEDS: INSULIN ASPART PER UNIT CHARGE SC SCH (20:37)
[2024-01-31] MEDS: LANTUS PER UNIT CHARGE SQ SCH (20:40)
[2024-01-31] MEDS: SEVELAMER CARBONATE 800 MG TAB PO STA (20:47)
[2024-01-31] MEDS: BUMETANIDE 4 MG in SYRINGE 0 ML IV ONE (20:48)
[2024-01-31] MEDS: METOPROLOL SUCC 50MG EXT REL TAB PO STA (20:48)
[2024-01-31] MEDS: APIXABAN 5 MG TABLET PO ONE (20:48)
[2024-01-31] MEDS: PANCREAZE (LIPASE 10,500U) CAP PO ONE (20:48)
[2024-01-31] MEDS: PREGABALIN 25 MG CAP PO STA (21:04)
[2024-01-31] MEDS ORDERED: MECLIZINE HCL 25 MG TAB PO PRN (21:51)
[2024-01-31] MEDS ORDERED: ONDANSETRON INJ 2 MG/ML 2 ML VIAL IV PRN (21:51)
[2024-01-31] MEDS ORDERED: ACETAMINOPHEN 325 MG TAB PO PRN (21:51)
[2024-01-31] MEDS ORDERED: traMADol HCL 50 MG TABLET PO PRN ×2 (21:51→22:43)
[2024-01-31 21:56] VITALS: RESP 18
[2024-01-31] MEDS ORDERED: AMMONIUM LACTATE 12% LOTION 225 GM BTL EXT PRN (22:00)
[2024-02-01] MEDS: LEVOTHYROXINE SODIUM 75 MCG TABLET PO SCH (06:06)
[2024-02-01 07:22] LABS: Estimated Average Glucose 160 mg/dl; Hemoglobin A1C 7.2 % (4.5-5.6)
[2024-02-01 07:36] VITALS: TEMP 97.7
[2024-02-01] MEDS: PANCREAZE (LIPASE 10,500U) CAP PO SCH (07:51)
[2024-02-01] MEDS: SEVELAMER CARBONATE 800 MG TAB PO SCH (07:53)
--- NOTE | 2024-02-01 10:32 | Nephrology Consultation ---
Date of Consultation February 01, 2024 Assessment & Plan (1) ESRD on dialysis: (2) Hypoxia: (3) Pulmonary edema: (4) Anemia: (5) Hypertension: Plan End-stage renal disease on hemodialysis presented with shortness of breath and generalized weakness after having short dialysis treatment yesterday and then a fistulogram and and angioplasty of left RC AVF and discharged to home. On admission electrolyte was acceptable but he was noted to be volume overloaded with pulmonary congestion although he was slightly above his dry weight. -- Will do 4 hours hemodialysis today with 2K bath, UF 3 to 3.5 L as tolerated, aim to decrease dry weight to 103.5 kg if possible. -- fluid restriction to less than 1 L per day, low-potassium diet, left arm nephrology precaution. --Epogen 20,000 units IV x 1 dose today. -- Dose medications for eGFR less than 10, recommend decreasing gabapentin to maximum 300 mg daily. --Continue on Sensipar 60 mg daily, renal caps daily, start on Renvela 1 tab 3 times daily with meals --Okay to be discharged after treatment if clinically stable Thank you for allowing me to participate in your patient's care. History of Present Illness Reason for Consultation: ESRD on HD Attending Physician: Marni Hanley MD History of Present Illness Ventura Snell is a 43-year-old male with past medical history significant for end-stage kidney disease on hemodialysis, hypertension, diabetes, GERD, presented to the hospital with shortness of breath and overall feeling poorly after going home yesterday after having fistulogram in the morning. Nephrology consult was requested to provide emergency dialysis for correction of hyperkalemia. electronic medical records were reviewed in detail during patient's visit. Juan Jose presented to ER yesterday evening with shortness of breath and overall generally feeling poorly. He had elective fistulogram and angioplasty of left RC AVF earlier in the day and went home. Prior to coming for fistulogram he had just 1 and half hours dialysis at the outpatient dialysis unit and according to manage he was able to of [facility] dialysis is going to his estimated dry weight of 105 kg. Blood pressure has been running high, room air oxygen saturation was 88. Chest x-ray showed moderate pulmonary vascular congestion. Electrolytes including potassium was normal. he tend to have high weight gain in between dialysis. Clinically he looked volume overloaded and he was 1.5 3 kg above his dry weight which has been 105 Kg as of recent. Juan Jose has end-stage renal disease secondary to diabetic nephropathy, has been on hemodialysis Saturday, Saturday, Saturday at [facility]. His estimated dry weight is 105 kg as he has been eating healthy and trying to lose weight to be eligible for kidney transplant. He generally has tendency for high weight gain in between dialysis. He does not make much urine anymore, has been taking Bumex 4 mg twice a day. Has h/o chronic diarrhea about 5-6 times per day, during last admission had extensive workup, unremarkable, usually takes Imodium. He reports overall feeling poorly with some shortness of breath but no fever or chills. Allergies Allergy/AdvReac Type Severity Reaction Status Date / Time lisinopril AdvReac Intermediate COUGH Verified 01/31/24 09:07 Home Medications Medication Instructions Recorded Confirmed Type OneTouch Delica Lancets 33 gauge #400 ea 10/16/19 01/17/24 Rx (lancets) lancets 33 gauge (OneTouch Delica #400 ea 01/28/23 01/17/24 Rx Plus Lancet) acetone (urine) test (Ketostix 01/29/23 01/17/24 History strips) cinacalcet 60 mg tablet 60 mg PO DAILY #30 tabs 02/15/23 01/31/24 Rx blood-glucose meter,continuous #1 ea 03/20/23 01/17/24 Rx (Dexcom G7 [employer]) insulin detemir U-100 100 unit/mL 10 unit subcut PM 03/20/23 01/31/24 History (3 mL) subcutaneous pen blood sugar diagnostic (OneTouch #400 ea 05/21/23 01/17/24 Rx Verio test strips) blood-glucose meter (OneTouch #1 ea 05/21/23 01/17/24 Rx Verio Flex Meter) ammonium lactate 12 % topical cream 1 applic topical DAILY PRN Dry Skin 06/07/23 01/31/24 History duloxetine 60 mg capsule,delayed 60 mg PO QAM #90 caps 06/14/23 01/31/24 Rx release (Cymbalta) insulin aspart U-100 100 unit/mL 20 unit (0.2 mL) subcut TID #162 mL 07/12/23 01/31/24 Rx (3 mL) subcutaneous pen pen needle, diabetic 29 gauge x #400 ea 07/12/23 01/17/24 Rx 1/2" (Comfort EZ Pen [place]) bumetanide 2 mg tablet 4 mg (2 x 2 mg) PO BID #360 tabs 08/08/23 01/31/24 Rx blood-glucose sensor (Dexcom G7 #3 ea 08/27/23 01/17/24 Rx Sensor device) levothyroxine 75 mcg tablet 75 mcg PO DAILYBB 10/05/23 01/31/24 History meclizine 25 mg tablet 25 mg PO TID PRN dizziness or 10/10/23 01/31/24 Rx vertigo #30 tabs vitamin B complex and vitamin C 1 cap PO QAM #30 caps 11/14/23 01/31/24 Rx no.20-folic acid 1 mg capsule (Renal Caps) sevelamer carbonate 800 mg tablet 800 mg PO TIDM 90 days #240 tabs 12/05/23 01/31/24 Rx atorvastatin 80 mg tablet (Lipitor) 80 mg PO DAILY #90 tabs 12/10/23 01/31/24 Rx cshgfg-dwzqjlry-fxzcish 2 cap PO .COMPLEX #180 caps 12/10/23 01/31/24 Rx 36,000-114,000-180,000 unit capsule,delay rel (Creon) pregabalin 25 mg capsule (Lyrica) 25 mg PO TID #90 caps 12/10/23 01/31/24 Rx apixaban 5 mg tablet (Eliquis) 5 mg PO BID 30 days #180 tabs 12/13/23 01/31/24 Rx tramadol 50 mg tablet 50 - 100 mg (1 - 2 x 50 mg) PO BID 01/23/24 01/31/24 Rx PRN pain #120 tabs metoprolol succinate 100 mg 100 mg PO BID #180 tabs 01/24/24 01/31/24 Rx tablet,extended release 24 hr Patient History Medical History (Updated 01/31/24 @ 22:37 by Yoav Patrick MD) Essential hypertension Chronic venous insufficiency Anemia due to chronic kidney disease ESRD (end stage renal disease) requiring hemodialysis. MWF at [facility]. 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) Surgical History History of esophagogastroduodenoscopy (EGD) H/O detached retina repair S/P arteriovenous (AV) fistula creation left side, unable to use Family History Mother Diabetes Coronary heart disease Hypertension Father Coronary heart disease Hypertension Brother Coronary heart disease Kidney disease Uncle Colorectal cancer Grandmother Diabetes Aunt Diabetes Unknown Dyslipidemia Grandfather (Maternal) Diabetes Other Cancer No family history of adverse response to anesthesia Social History Smoking Status: Never smoker Second Hand Exposure: No; Do You Dip or Chew Tobacco: No; Hx Alcohol Use: Yes Alcohol type: beer, wine and hard liquor Hx Substance Use: Yes Last Used Substance: Days (ago) Preferred Language: Romansh Communication Ability: Effective Visual Impairment: No Limitations Hearing Ability: Normal Pressfitter Required: No Beliefs That Will Affect Care: None marital status: Single Current Living Situation: Alone Current Living Situation Comment: Brother 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 Physical Exam Constitutional: WD/WN, vitals as above no acute distress Eyes: + anicteric sclerae Neck: normal visual inspection Cardiovascular: Rate/Rhythm: regular rate and regular rhythm Heart Sounds: normal S1 and normal S2 Extremities: + edema and + AV fistula Gastrointestinal (Abdomen): Inspection/Auscultation: abdomen normal to inspection Musculoskeletal: Extremities: extremities normal to inspection Neurologic: no focal motor deficits and not confused Psychiatric: Orientation: alert and oriented x 3 Affect: euthymic affect Results & Data Vital Signs (Past 12 Hours) Vital Signs Temp Pulse Pulse Resp BP Pulse Ox O2 Del Method 02/01/24 10:12 66 02/01/24 07:35 36.5 C 66 18 181/92 H 98 Nasal Cannula 02/01/24 07:28 Nasal Cannula 02/01/24 02:57 37 C 70 18 181/87 H 98 Nasal Cannula 01/31/24 23:11 75 01/31/24 23:00 36.4 C L 70 18 173/90 H 98 Nasal Cannula O2 Flow Rate 02/01/24 10:12 02/01/24 07:35 2 02/01/24 07:28 2 02/01/24 02:57 01/31/24 23:11 01/31/24 23:00 2 PG Care Time/CCT Total # of Minutes Spent Total Time Spent with Patient: Total time spent is greater than 50% in coordination of care (as documented) at patient's floor/unit and/or counseling patient: Coding Level of Care Code 02384 INT INP/OBS CARE MIN Diagnoses ESRD on dialysis N18.6; Z99.2 Hypoxia R09.02 Pulmonary edema J81.0 Chronicity: acute Anemia N18.6; D63.1; Z99.2 Anemia type: due to chronic kidney disease Chronic kidney disease stage: on chronic dialysis Hypertension I10 Hypertension type: unspecified (3) Pulmonary edema Chronicity: acute Qualified Code(s): J81.0 - Acute pulmonary edema (4) Anemia Anemia type: due to chronic kidney disease Chronic kidney disease stage: on chronic dialysis Qualified Code(s): N18.6 - End stage renal disease; D63.1 - Anemia in chronic kidney disease; Z99.2 - Dependence on renal dialysis (5) Hypertension Hypertension type: unspecified Qualified Code(s): I10 - Essential (primary) hypertension
--- NOTE | 2024-02-01 10:54 | Electrocardiogram Report ---
Test Reason : Blood Pressure : */* mmHG Vent. Rate : 76 BPM Atrial Rate : 76 BPM P-R Int : 160 ms QRS Dur : 92 ms QT Int : 422 ms P-R-T Axes : 30 13 83 degrees QTcB Int : 474 ms Normal sinus rhythm T wave abnormality, consider lateral ischemia Abnormal ECG When compared with ECG of 26-Nov-2023 07:49, No significant change was found Confirmed by Darshan Garcia ([id number]) on 02/01/2024 10:53:28 AM Referred By: REFERRED SELF Confirmed By: Darshan Garcia
[2024-02-01] MEDS: EPOETIN ALFA 20,000 UNITS/ML VIAL IV STA (13:33)
[2024-02-01] MEDS: ATORVASTATIN 40 MG TAB PO SCH (15:29)
[2024-02-01] MEDS: DULoxetine HCL 60 MG CAP PO SCH (15:31)
[2024-02-01] MEDS: CINACALCET HCL 30 MG TAB PO SCH (15:31)
[2024-02-01] MEDS: NEPHROCAPS PO SCH (15:32)
[2024-02-01] MEDS: BUMETANIDE 1 MG TAB PO SCH (15:33)
[2024-02-01] MEDS: METOPROLOL SUCC 50MG EXT REL TAB PO SCH (15:34)
[2024-02-01] MEDS: APIXABAN 5 MG TABLET PO SCH (15:34)
--- NOTE | 2024-02-01 15:43 | Discharge Summary ---
Date of Service February 01, 2024 Admission HPI Per Admitting Provider The patient is a 43-year-old male on HD, exocrine pancreatic insufficiency, AMELIA, PAF, dyslipidemia, GERD, HFpEF, severe diabetic peripheral neuropathy, hypothyroidism, and anxiety with Depression. He had seen vascular surgery Dr. Combs this morning, and had a left forearm fistulogram completed. He then went to dialysis, and was only able to have 1-1/2 hours of dialysis performed, due to the center closing. He reports that he did get taken down to his dry weight, but has reported shortness of breath and fatigue throughout the day today. In the emergency department workup included a chest x-ray which showed pulmonary vascular congestion and CHF. He was also found to have ambulatory pulse ox of 88%, which improved 100% on 2 L nasal cannula, and was then referred for evaluation for admission. Admission Exam Per Admitting Provider The patient is awake, alert and oriented 3, well developed and well nourished, normocephalic and atraumatic, lying in bed and in no acute distress. HEENT--PERRL, EOMI, mucous membranes and oropharynx dry. Neck--supple.No JVD. No bruits. Thyroid normal, trachea midline, no adenopathy. Heart--normal S1 and S2.No murmurs, rubs or gallops. Lungs--crackles at the bases to group home up bilaterally. No respiratory distress, no accessory muscle use. Abdomen--normal bowel sounds and soft. Nontender. Nondistended. Obese Extremities--No edema. There are good distal pulses b/l. Dermatologic--normal skin turgor, normal color, no abnormal lymph nodes, no rash. Neurologic--cranial nerves II through XII grossly intact. Rheumatologic--normal range of motion. Psychiatric--normal affect. Principal Diagnosis Acute diastolic congestive heart failure with pulmonary edema and volume overload, needing dialysis Acute hypoxic respiratory failure due to pulmonary edema Discharge Exam General: Awake, conversant Heart: S1, S2/regular rate and rhythm, no murmur rubs or gallops Lungs: Clear to auscultation bilaterally. Normal effort Abdomen: Soft/nontender/nondistended. No hepatosplenomegaly Extremities: No clubbing/cyanosis. Chronic leg edema noted Behavior: Appropriate, cooperative Discharge Data Allergies Allergy/AdvReac Type Severity Reaction Status Date / Time lisinopril AdvReac Intermediate COUGH Verified 01/31/24 09:07 Consultations 01/31/24 19:26 ED Decision to Admit Stat 01/31/24 20:31 Consult Nephrology Routine Hospital Course (1) ESRD needing dialysis: (2) ESRD on dialysis: (3) Pulmonary edema: (4) Volume overload: (5) (HFpEF) heart failure with preserved ejection fraction: (6) Exocrine pancreatic insufficiency: (7) Paroxysmal atrial fibrillation: (8) Hypertension: (9) Diabetic neuropathy: (10) GERD (gastroesophageal reflux disease): (11) Dyslipidemia: (12) Suspected sleep apnea: (13) Hypoxia: (14) Diabetes mellitus type 1 with complications: Plan ESRD on HD needing dialysis/pulmonary edema/fluid overload/HFpEF/acute respiratory failure with hypoxia- Patient was only able to receive 1-1/2 hours of dialysis on 01/30, due to having a fistulogram performed on his left forearm. Pulse ox 88% on room air with ambulation, improved 100% with 2 L nasal cannula Givena dose of Bumex 4 mg IV this evening, and then resume max 4 mg p.o. twice daily in the morning Continue Cinacalcet, renal caps, and sevelamer Home Assessment Nurse on board Patient was dialyzed today Now feeling remarkably better and wishes to go home Nephrology cleared the patient for discharge to home Diabetes mellitus- Patient reports that he takes Levemir 20 units at bedtime if glucose is above 250, otherwise just takes Humalog Placed on glargine 10 units subcu at bedtime Placed on Accu-Cheks with NovoLog SSI Exocrine pancreatic insufficiency- Typical dosing is Creon 36,000, taking 2 capsules p.o. 3 times daily with meals Placing on Creon 10, 3 capsules 3 times daily with meals History of pulmonary embolism- Continue apixaban Severe peripheral neuropathy- Continue duloxetine and pregabalin Acetaminophen 650 mg by mouth every 6 hours as needed for mild pain or fever Tramadol 50 mg p.o. twice daily as needed moderate pain Discharge to home today Total Time Total Time Spent Total Time Spent (In Minutes): 35 Discharge Plan Discharge Items Patient Disposition: Home - Self-Care Reason For Visit: CHF EX, ESRD ON HD NEEDING DIALYSIS Discharge Diagnosis: Acute diastolic congestive heart failure with pulmonary edema and volume overload, needing dialysis Acute hypoxic respiratory failure due to pulmonary edema Activity: Resume your previous activity Non-emergency contact: Primary Care Provider Call non-emergency contact if: you have any medication questions and your symptoms worsen Follow-up/Referrals: Maki Peterson MD [Primary Care Provider] - 02/07/24 2:00 pm Diet: Carb Consistent or DM2 Addtl Attending Provider Instructions: Advised to follow-up with PCP in 1 week Advised to follow usual dialysis schedule Pending Studies at Discharge: No Stand-Alone Forms: My [facility] Medications and DC Order Prescriptions: Continued (DME) lancets [OneTouch Delica Plus Lancet] 33 gauge misc See Rx Instructions .Route Qty: 400 3RF Rx Instructions: test blood sugars 4 times daily cinacalcet 60 mg tablet 60 mg PO DAILY Qty: 30 2RF duloxetine [Cymbalta] 60 mg capsule,delayed release(DR/EC) 60 mg PO QAM Qty: 90 3RF (DME) pen needle, diabetic [Comfort EZ Pen [place]] 29 gauge x 1/2" needle See Rx Instructions .ROUTE .MEDSUPPLY Qty: 400 3RF Rx Instructions: use 4 x daily insulin aspart U-100 100 unit/mL (3 mL) insulin pen 20 unit subcut TID Qty: 162 3RF Rx Instructions: Sliding Scale bumetanide 2 mg tablet 4 mg PO BID Qty: 360 1RF sevelamer carbonate 800 mg tablet 800 mg PO TIDM 90 Days Qty: 240 1RF Eliquis 5 mg tablet 5 mg PO BID 30 Days Qty: 180 3RF tramadol 50 mg tablet 50 - 100 mg PO BID MDD 4 tabs PRN (Reason: pain) Qty: 120 0RF Rx Instructions: 1-2 tabs orally twice a day PRN; metoprolol succinate 100 mg tablet extended release 24 hr 100 mg PO BID Qty: 180 3RF (DME) Ketostix Strip See Rx Instructions .ROUTE .MEDSUPPLY Rx Instructions: As directed (DME) Dexcom G7 Sensor Device See Rx Instructions .Route Qty: 3 5RF Rx Instructions: As directed (DME) lancets [OneTouch Delica Lancets] 33 gauge misc See Rx Instructions .ROUTE .MEDSUPPLY Qty: 400 3RF Rx Instructions: test blood suigars 4 x daily (DME) Dexcom G7 Shop Manager Misc See Rx Instructions .Route Qty: 1 0RF Rx Instructions: As directed insulin detemir U-100 100 unit/mL (3 mL) insulin pen 10 unit SQ PM (DME) blood-glucose meter [OneTouch Verio Flex meter] Misc See Rx Instructions .ROUTE .MEDSUPPLY Qty: 1 0RF Rx Instructions: As directed (DME) OneTouch Verio test strips Strip See Rx Instructions .ROUTE .MEDSUPPLY Qty: 400 3RF Rx Instructions: Test 4 times daily meclizine 25 mg tablet 25 mg PO TID PRN (Reason: dizziness or vertigo) Qty: 30 2RF Creon 36,000-114,000- 180,000 unit capsule,delayed release(DR/EC) 2 cap PO .COMPLEX Qty: 180 2RF Rx Instructions: 2 caps orally with meals and 1 cap with snacks; administer with meals and/or snacks atorvastatin [Lipitor] 80 mg tablet 80 mg PO DAILY Qty: 90 3RF pregabalin [Lyrica] 25 mg capsule 25 mg PO TID Qty: 90 1RF Patient Comments: has not started yet due to insurace will switch from gabapentin ammonium lactate 12 % cream 1 applic topical DAILY PRN (Reason: Dry Skin) Rx Instructions: Apply to lower legs and feet daily with dressing changes. levothyroxine 75 mcg tablet 75 mcg PO DAILYBB Renal Caps 1 mg Capsule 1 cap PO QAM Qty: 30 0RF Discharge Orders: Discharge Order (Routine); Ordered 02/01/24 Ordered By: Marni Hanley Admission Data Admit Date/Time: 01/31/24 20:31 Attending Provider: Marni Hanley Admit Provider: Yoav Patrick Primary Care Provider: Maki Peterson Other Providers: Adrianne Kennedy; Yoav Patrick
[2024-02-01 15:51] VITALS: BP 162/80; PULSE 69; O2SAT 93
[2024-02-01] MEDS ORDERED: LANTUS PER UNIT CHARGE SQ SCH (21:00)
== END 2024-02-01 16:52 | disposition home or self-care (01) | DRG 640 ==
LOC: ED 17:41 → INTOOBSV 20:31 → SUATTDRO 20:31 → 2S 20:31

== ENCOUNTER 2024-08-21 16:54 | Inpatient (IN) ==
[2024-08-21 17:49] LABS: Basophils # (auto) 0.02 K/uL (0.00-0.20); Basophils % (auto) 0.3 %; Eosinophils # (auto) 0.22 K/uL (0.00-0.50); Eosinophils % (auto) 3.5 %; Hematocrit (blood only) 29.8 % (42.0-52.0); Hemoglobin 9.7 g/dl (14.0-18.0); Immature Granulocytes # (auto) 0.02 K/uL (0.01-0.20); Immature Granulocytes % (auto) 0.3 %; Lymphocytes # (auto) 0.96 K/uL (1.20-3.40); Lymphocytes % (auto) 15.1 %; Mean Corpuscular Hemoglobin 30.5 pg (25.0-34.0); Mean Corpuscular Hgb Conc 32.6 g/dL (32.0-36.0); Mean Corpuscular Volume 93.7 fL (80.0-100.0); Mean Platelet Volume 10.1 fL (9.4-12.4); Monocytes # (auto) 0.68 K/uL (0.11-0.59); Monocytes % (auto) 10.7 %; Neutrophils # (auto) 4.44 K/uL (1.40-6.50); Neutrophils % (auto) 70.1 %; Platelet Count 161 K/uL (130-400); RDW Coefficient of Variation 15.1 % (11.5-14.5); RDW Standard Deviation 52.2 fL (36.4-46.3); Red Blood Count 3.18 M/uL (4.70-6.10); White Blood Count 6.34 K/ul (4.8-10.8)
[2024-08-21 18:13] LABS: Albumin Globulin Ratio 0.9 (0.9-2); Albumin Level 3.8 gm/dl (3.4-5.0); BUN Creatinine Ratio 8.9 (10-20); Bilirubin,Total 0.7 mg/dl (0.2-1.0); Calcium 9.1 mg/dl (8.6-10.3); Creatinine Clr Calc Pharmacy 12.8 ml/min; Globulin 4.1 gm/dl (2.5-4.0); Potassium 5.3 mmol/L (3.5-5.1); Total Protein 7.9 gm/dl (6.0-8.3)
--- NOTE | 2024-08-21 18:39 | Emergency Department Note ---
History of Present Illness General Chief complaint: Line Placement Stated complaint: SENT BY DIALYSIS, NEEDS A PERMCATH Time Seen by Provider: 08/21/24 18:18 History of Present Illness Provider complaint: Illness Maximum Pain Intensity: 10 43-year-old male presents emergency department for illness. Patient is end- stage renal disease on hemodialysis Saturday. Patient states he was at his hemodialysis session today at [facility] dialysis and they got 1.5 L off through his AV fistula in his left upper extremity. He states that he stopped after 1.5 L because he was having pain in his left upper extremity. Patient states that the people at [facility] told him to come to the emergency department because he needed emergent hemodialysis and a permacath. Patient stated he does not think he needs to be here and does not think he needs an emergent dialysis session. Patient states he is having some pain in his left upper extremity but thinks he just needs some pain pills. No difficulty breathing. Home Medications Medication Instructions Recorded Confirmed Type OneTouch Delica Lancets 33 gauge #400 ea 10/16/19 07/02/24 Rx (lancets) lancets 33 gauge (OneTouch Delica #400 ea 01/28/23 07/02/24 Rx Plus Lancet) acetone (urine) test (Ketostix 01/29/23 07/02/24 History strips) blood-glucose,flakeboard line tender,cont #1 ea 03/20/23 07/02/24 Rx (Dexcom G7 Occupational Therapy Asst) insulin detemir U-100 100 unit/mL 60 unit subcut HS 03/20/23 08/18/24 History (3 mL) subcutaneous pen blood sugar diagnostic (OneTouch #400 ea 05/21/23 07/02/24 Rx Verio test strips) blood-glucose meter (OneTouch #1 ea 05/21/23 07/02/24 Rx Verio Flex Meter) pen needle, diabetic 29 gauge x #400 ea 07/12/23 07/02/24 Rx 1/2" (Comfort EZ Pen Burna) blood-glucose sensor (Dexcom G7 #3 ea 08/27/23 07/02/24 Rx Sensor device) sevelamer carbonate 800 mg tablet 800 mg PO TIDM 90 days #240 tabs 12/05/23 08/18/24 Rx duloxetine 30 mg capsule,delayed 30 mg PO QAM #90 caps 03/13/24 08/18/24 Rx release apixaban 5 mg tablet (Eliquis) 5 mg PO BID 30 days #180 tabs 03/27/24 08/18/24 Rx pregabalin 25 mg capsule (Lyrica) 25 mg PO TID #90 caps 05/01/24 08/18/24 Rx metoprolol succinate 100 mg 100 mg PO BID #180 tabs 05/12/24 08/18/24 Rx tablet,extended release 24 hr ropinirole 0.5 mg tablet 0.5 mg PO BID #60 tabs 06/08/24 08/18/24 Rx uikyxf-xyaacsog-zorulhf 2 cap PO .COMPLEX #180 caps 06/23/24 08/18/24 Rx 36,000-114,000-180,000 unit capsule,delay rel (Creon) ammonium lactate 5 % lotion 1 applic topical DAILY #226 grams 07/02/24 08/18/24 Rx (Lac-Hydrin Five) Wheeled Walker #1 ea 07/03/24 07/03/24 Rx amlodipine 10 mg tablet 10 mg PO QAM 08/06/24 08/18/24 History atorvastatin 80 mg tablet (Lipitor) 80 mg PO HS 08/06/24 08/18/24 History cinacalcet 60 mg tablet 60 mg PO HS 08/06/24 08/18/24 History insulin aspart U-100 100 unit/mL 30 unit subcut TID 08/06/24 08/18/24 History (3 mL) subcutaneous pen levothyroxine 75 mcg tablet 75 mcg PO QAM 08/06/24 08/18/24 History tramadol 50 mg tablet 50 - 100 mg (1 - 2 x 50 mg) PO BID 08/18/24 Rx PRN pain #30 tabs Allergies Allergy/AdvReac Type Severity Reaction Status Date / Time lisinopril AdvReac Intermediate COUGH Verified 08/21/24 19:15 Past Med/Surg History Problem List (Updated 08/21/24 @ 19:16 by Yoel Ortega MD) Fluid overload (Acute) Venous aneurysm Exocrine pancreatic insufficiency (Chronic) Suspected sleep apnea (Chronic) Paroxysmal atrial fibrillation (Chronic) 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) heart failure with preserved ejection fraction (Chronic) Anemia (Chronic) ESRD (end stage renal disease) on dialysis (Chronic) Dyslipidemia (Chronic) Diabetic nephropathy associated with type 1 diabetes mellitus (Chronic) Anxiety and depression (Chronic) Diabetic proliferative retinopathy (Chronic) GERD (gastroesophageal reflux disease) (Chronic) Hypertension (Chronic) Hypothyroidism (Chronic) Obesity (Chronic) 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) Medical History H/O dialysis fistulogram multiple (HFpEF) heart failure with preserved ejection fraction hx, f/u PCP currently History of hypothyroidism Hx of gastroesophageal reflux (GERD) Dyslipidemia Diabetic peripheral neuropathy associated with type 1 diabetes mellitus Diabetes mellitus type 1 IDDM Anxiety and depression History of atrial fibrillation currently on eliquis; no cardiology currently, plans to see in near futured, managed by PCP Essential hypertension Chronic venous insufficiency hx venous stasis ulcers "currently healed, has followed up with wound care in the past" Anemia due to chronic kidney disease ESRD (end stage renal disease) requiring hemodialysis. MWF at [facility]; f/u dr. 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) hx Surgical History S/P dialysis catheter insertion 2019; later removed Hx of right cataract extraction History of esophagogastroduodenoscopy (EGD) H/O detached retina repair S/P arteriovenous (AV) fistula creation (2019) left side Family History Mother Diabetes Coronary heart disease Hypertension Father Coronary heart disease Hypertension Brother Coronary heart disease Kidney disease Uncle Colorectal cancer Grandmother Diabetes Aunt Diabetes Unknown Dyslipidemia Grandfather (Maternal) Diabetes Other Cancer No family history of adverse response to anesthesia Social History Smoking Status: Never smoker Second Hand Exposure: No; Do You Dip or Chew Tobacco: No; Hx Alcohol Use: Yes (very rare use) Alcohol Intake Frequency: Monthly or Less Hx Substance Use: No Preferred Language: [place] Communication Ability: Effective Visual Impairment: No Limitations Hearing Ability: Normal 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" How many Children do You have: 0 Feels Safe at Home: Yes Diet: ideal protein and regular Dental Care, Regularly: No Physical Activity Frequency: Does not Exercise Seatbelt Use: always Sunscreen Use: No Assistive Devices: Glasses Physical Exam Vital Signs Vital Signs - 24 hr 08/21/24 17:12 08/21/24 18:31 08/21/24 18:48 Temperature 36.7 C Temperature Source Temporal Artery Scan Pulse Rate 71 76 Pulse Rate [Apical] 76 Respiratory Rate 18 18 Respiratory Effort / Characteristics Non-Labored Non-Labored Spontaneous Respiratory Depth Normal Normal Respiratory Pattern Regular Blood Pressure 158/82 H Blood Pressure [Right Arm] 161/89 H Blood Pressure Mean 107 Blood Pressure Mean [Right Arm] 113 Blood Pressure Position [Right Arm] Semi-fowlers Pulse Oximetry 99 100 Oxygen Delivery Method Room Air Room Air Sepsis Recent Fever Within 48 Hours No Sepsis New/Unexplained Change in Mental Status No Sepsis Action Taken by Nursing No Action Required Physical Exam GENERAL: He is oriented to person, place, and time. He appears well-developed and well-nourished. He does not appear distressed. HENT: Exam performed. - Head: Normocephalic and atraumatic. EYES: Conjunctivae and EOM are normal. Pupils are equal, round, and reactive to light. Right eye exhibits no discharge. Left eye exhibits no discharge. No scleral icterus. NECK: Normal range of motion. Neck supple. No JVD present. CV: Normal rate, regular rhythm, normal heart sounds and intact distal pulses. There is no peripheral edema. Palpable radial pulses bue. PULM/CHEST: Effort normal and breath sounds normal. No respiratory distress. No stridor. He has no wheezes. He has no rales. MUSC/SKEL: LUE: Swelling of the left upper extremity. AV fistula has palpable thrill. Palpable radial and ulnar pulse. NEURO: Motor and sensation grossly intact. Course Course 1817: The patient was evaluated in room C3. A complete history and physical exam was performed Cardiac monitoring: An order was placed for continuous cardiac monitoring. The monitor shows a rate of 70 with sinus rhythm interpreted by me Patient was seen during a time of extreme volume and extreme acuity in the emergency department. Nursing triage protocols were initiated and labs were drawn by protocol in the triage area. Potassium 5.3 and BUN 76. Will contact nephrology and vascular surgery. 1831: Spoke with Dr. Combs. He stated no need for emergent imaging at this time. He stated if the patient needed permacath it would be done on Saturday. 1836: Spoke with nephrology Dr. Miranda. He agreed no need for emergent dialysis tonight. He states admit the patient to the hospitalist team they will evaluate him tomorrow to see if they can use his left upper extremity fistula for session of dialysis and if not they will make arrangements for permacath to be placed. Medical Decision Making Laboratory Data Attestation: I reviewed the patient's lab results. 08/21/24 17:30 08/21/24 17:30 Lab Results 08/21/24 Range/Units 17:30 WBC 6.34 (4.8-10.8) K/ul RBC 3.18 L (4.70-6.10) M/uL Hgb 9.7 L (14.0-18.0) g/dl Hct 29.8 L (42.0-52.0) % MCV 93.7 (80.0-100.0) fL MCH 30.5 (25.0-34.0) pg MCHC 32.6 (32.0-36.0) g/dL RDW Std Deviation 52.2 H (36.4-46.3) fL RDW Coeff of Yuki 15.1 H (11.5-14.5) % Plt Count 161 (130-400) K/uL MPV 10.1 (9.4-12.4) fL Immature Gran % (Auto) 0.3 % Neut % (Auto) 70.1 % Lymph % (Auto) 15.1 % Crane % (Auto) 10.7 % Eos % (Auto) 3.5 % Baso % (Auto) 0.3 % Neut # (Auto) 4.44 (1.40-6.50) K/uL Lymph # (Auto) 0.96 L (1.20-3.40) K/uL Crane # (Auto) 0.68 H (0.11-0.59) K/uL Eos # (Auto) 0.22 (0.00-0.50) K/uL Baso # (Auto) 0.02 (0.00-0.20) K/uL Immature Gran # (Auto) 0.02 (0.01-0.20) K/uL Sodium 133 L (136-145) mmol/L Potassium 5.3 H (3.5-5.1) mmol/L Chloride 87 L (98-107) mmol/L Carbon Dioxide 33 H (21-32) mmol/L Anion Gap 13 H (3-11) BUN 76 H (6-23) mg/dl Creatinine 8.57 H* (0.6-1.4) mg/dl Est Cr Clr Drug Dosing 12.8 ml/min eGFR 7.32 BUN/Creatinine Ratio 8.9 L (10-20) Glucose 170 H (70-99(Fasting)) mg/dl Calcium 9.1 (8.6-10.3) mg/dl Total Bilirubin 0.7 (0.2-1.0) mg/dl AST 22 (13-39) U/L ALT 3 L (7-52) U/L Alkaline Phosphatase 237 H (34-104) U/L Total Protein 7.9 (6.0-8.3) gm/dl Albumin 3.8 (3.4-5.0) gm/dl Globulin 4.1 H (2.5-4.0) gm/dl Albumin/Globulin Ratio 0.9 (0.9-2) ECG Data Attestation: I personally reviewed and interpreted this ECG as follows: Rate (beats per minute): 73 Rhythm: + normal sinus ECG Intervals/blocks: + Normal QRS, + Normal AK and + Normal QT-c ECG ST segments: + Normal ST segments MDM Narrative 1817: The patient was evaluated in room C3. A complete history and physical exam was performed Cardiac monitoring: An order was placed for continuous cardiac monitoring. The monitor shows a rate of 70 with sinus rhythm interpreted by me Patient was seen during a time of extreme volume and extreme acuity in the emergency department. Nursing triage protocols were initiated and labs were drawn by protocol in the triage area. Potassium 5.3 and BUN 76. Will contact nephrology and vascular surgery. 1831: Spoke with Dr. Combs. He stated no need for emergent imaging at this time. He stated if the patient needed permacath it would be done on Saturday. 1836: Spoke with nephrology Dr. Miranda. He agreed no need for emergent dialysis tonight. He states admit the patient to the hospitalist team they will evaluate him tomorrow to see if they can use his left upper extremity fistula for full session of dialysis and if not they will make arrangements for permacath to be placed. Impression & Plan Fluid overload Discharge Plan Visit Data Chief Complaint: Line Placement Stated Complaint: SENT BY DIALYSIS, NEEDS A PERMCATH ED Provider: Yoel Ortega Discharge Problem: Fluid overload Patient Disposition: Being Evaluated by Hospitalist Condition: Fair Forms Stand Alone Forms: My [facility] [employer] Prescriptions Prescriptions: No Action Lac-Hydrin Five 5 % lotion 1 applic topical DAILY Qty: 226 1RF (DME) lancets [OneTouch Delica Plus Lancet] 33 gauge misc See Rx Instructions .Route Qty: 400 3RF Rx Instructions: test blood sugars 4 times daily (DME) pen needle, diabetic [Comfort EZ Pen Burna] 29 gauge x 1/2" needle See Rx Instructions .ROUTE .MEDSUPPLY Qty: 400 3RF Rx Instructions: use 4 x daily sevelamer carbonate 800 mg tablet 800 mg PO TIDM 90 Days Qty: 240 1RF duloxetine 30 mg capsule,delayed release(DR/EC) 30 mg PO QAM Qty: 90 3RF Eliquis 5 mg tablet 5 mg PO BID 30 Days Qty: 180 3RF pregabalin [Lyrica] 25 mg capsule 25 mg PO TID Qty: 90 1RF Patient Comments: has not started yet due to insurace will switch from gabapentin metoprolol succinate 100 mg tablet extended release 24 hr 100 mg PO BID Qty: 180 3RF ropinirole 0.5 mg tablet 0.5 mg PO BID Qty: 60 2RF (DME) Ketostix Strip See Rx Instructions .ROUTE .MEDSUPPLY Rx Instructions: As directed (DME) Dexcom G7 Sensor Device See Rx Instructions .Route Qty: 3 5RF Rx Instructions: As directed (DME) lancets [OneTouch Delica Lancets] 33 gauge misc See Rx Instructions .ROUTE .MEDSUPPLY Qty: 400 3RF Rx Instructions: test blood suigars 4 x daily (DME) Dexcom G7 Occupational Therapy Asst Misc See Rx Instructions .Route Qty: 1 0RF Rx Instructions: As directed insulin detemir U-100 100 unit/mL (3 mL) insulin pen 60 unit SQ HS Patient Comments: sugars have been running low, has only been taking 40 units HS (DME) blood-glucose meter [OneTouch Verio Flex meter[place] [facility] [place] Instructions .ROUTE .MEDSUPPLY Qty: 1 0RF Rx Instructions: As directed (DME) OneTouch Verio test strips Strip See Rx Instructions .ROUTE .MEDSUPPLY Qty: 400 3RF Rx Instructions: Test 4 times daily Creon 36,000-114,000- 180,000 unit capsule,delayed release(DR/EC) 2 cap PO .COMPLEX Qty: 180 2RF Rx Instructions: 2 caps orally with meals and 1 cap with snacks; administer with meals and/or snacks (DME) Micky Hickman [facility] [place] Instructions .Route Qty: 1 0RF Rx Instructions: As directed atorvastatin [Lipitor] 80 mg tablet 80 mg PO HS levothyroxine 75 mcg tablet 75 mcg PO QAM amlodipine 10 mg tablet 10 mg PO QAM insulin aspart U-100 100 unit/mL (3 mL) insulin pen 30 unit subcut TID Rx Instructions: Inject TID as per sliding scale up to 20 units TID cinacalcet 60 mg tablet 60 mg PO HS tramadol 50 mg tablet 50 - 100 mg PO BID MDD 4 tabs PRN (Reason: pain) Qty: 30 0RF Rx Instructions: 1-2 tabs orally twice a day PRN; Referrals Referrals: Maki Peterson MD [Primary Care Provider] - Discharge Problem: Fluid overload Qualifiers: Hypervolemia type: unspecified Qualified Code(s): E87.70 - Fluid overload, unspecified
[2024-08-21] MEDS: HYDROmorphone INJ 1 MG/ML SYRINGE IV STA (19:08)
--- NOTE | 2024-08-21 19:30 | History & Physical Report ---
Date of Service August 21, 2024 Assessment & Plan (1) Fluid overload: (2) Diabetes mellitus type 1 with complications: (3) ESRD on dialysis: (4) Hyperkalemia: Plan 43 year old male presents to the ER after failed outpatient dialysis session #ESRD on dialysis / hyperkalemia Lokelma 10g PO, repeat BMP in AM Consult nephrology for dialysis tomorrow, if unsuccessful will need PermCath on Saturday #T1DM Lantus based on last hospitalization, start 20 units HS Novolog: --Goal BSG Range: Low 110 mg/dL, High 140 mg/dL --Correction Factor: 15 mg/dL/unit --Carbohydrate ratio = 5 g/unit --BSGs ACHS if eating, q6h if npo Consult pharmacy for ongoing glycemic control #Exocrine pancreatic insufficiency Continue Creon #History of pulmonary embolism Continue apixaban #Severe peripheral neuropathy Continue duloxetine and pregabalin Continue tramadol PRN #Restless leg syndrome Continue ropinirole #HTN Continue amlodipine, metoprolol VTE Prophylaxis - Eliquis Disposition - admit to med/tele Admission and Anticipated Discharge Date Admission Date: August 22, 2024 History of Present Illness Chief Complaint: Failed outpatient dialysis Primary Care Provider: Maki Peterson MD Ventura Snell is a 43 year old male with ESRD on dialysis and type 1 diabetes who presents to the ER after a failed dialysis session at [facility] due to pain at his dialysis site. Has severe neuropathy and hands were jumping. He reports otherwise feeling at his baseline. Allergies Allergy/AdvReac Type Severity Reaction Status Date / Time lisinopril AdvReac Intermediate COUGH Verified 08/21/24 19:15 Home Medications Medication Instructions Recorded Confirmed Type OneTouch Delica Lancets 33 gauge #400 ea 10/16/19 07/02/24 Rx (lancets) lancets 33 gauge (OneTouch Delica #400 ea 01/28/23 07/02/24 Rx Plus Lancet) acetone (urine) test (Ketostix 01/29/23 07/02/24 History strips) blood-glucose,cigar bander,cont #1 ea 03/20/23 07/02/24 Rx (Dexcom G7 [place]) insulin detemir U-100 100 unit/mL 30 - 40 unit subcut HS 03/20/23 08/21/24 History (3 mL) subcutaneous pen blood sugar diagnostic (OneTouch #400 ea 05/21/23 07/02/24 Rx Verio test strips) blood-glucose meter (OneTouch #1 ea 05/21/23 07/02/24 Rx Verio Flex Meter) pen needle, diabetic 29 gauge x #400 ea 07/12/23 07/02/24 Rx 1/2" (Comfort EZ Pen [place]) blood-glucose sensor (Dexcom G7 #3 ea 08/27/23 07/02/24 Rx Sensor device) sevelamer carbonate 800 mg tablet 800 mg PO TIDM 90 days #240 tabs 12/05/23 08/21/24 Rx duloxetine 30 mg capsule,delayed 30 mg PO QAM #90 caps 03/13/24 08/21/24 Rx release apixaban 5 mg tablet (Eliquis) 5 mg PO BID 30 days #180 tabs 03/27/24 08/21/24 Rx pregabalin 25 mg capsule (Lyrica) 25 mg PO TID #90 caps 05/01/24 08/21/24 Rx metoprolol succinate 100 mg 100 mg PO BID #180 tabs 05/12/24 08/21/24 Rx tablet,extended release 24 hr ropinirole 0.5 mg tablet 0.5 mg PO BID #60 tabs 06/08/24 08/21/24 Rx ammonium lactate 5 % lotion 1 applic topical DAILY #226 grams 07/02/24 08/21/24 Rx (Lac-Hydrin Five) Micky Walker #1 ea 07/03/24 07/03/24 Rx amlodipine 10 mg tablet 10 mg PO QAM 08/06/24 08/21/24 History atorvastatin 80 mg tablet (Lipitor) 80 mg PO HS 08/06/24 08/21/24 History cinacalcet 60 mg tablet 60 mg PO HS 08/06/24 08/21/24 History insulin aspart U-100 100 unit/mL 30 unit subcut TID 08/06/24 08/21/24 History (3 mL) subcutaneous pen levothyroxine 75 mcg tablet 75 mcg PO QAM 08/06/24 08/21/24 History zasmmh-snwzebql-nhincbu 2 - 3 cap PO DIRECTED 08/21/24 08/21/24 History 36,000-114,000-180,000 unit capsule,delay rel (Creon) tramadol 50 mg tablet 100 - 200 mg PO BID PRN pain 08/21/24 08/21/24 History Past Med/Surg History Problem List (Updated 08/21/24 @ 19:37 by Bruce Oconnell MD) Hyperkalemia ESRD on dialysis Fluid overload (Acute) Venous aneurysm Exocrine pancreatic insufficiency (Chronic) Suspected sleep apnea (Chronic) Paroxysmal atrial fibrillation (Chronic) 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) heart failure with preserved ejection fraction (Chronic) Anemia (Chronic) ESRD (end stage renal disease) on dialysis (Chronic) Dyslipidemia (Chronic) Diabetic nephropathy associated with type 1 diabetes mellitus (Chronic) Anxiety and depression (Chronic) Diabetic proliferative retinopathy (Chronic) GERD (gastroesophageal reflux disease) (Chronic) Hypertension (Chronic) Hypothyroidism (Chronic) Obesity (Chronic) 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) Medical History H/O dialysis fistulogram multiple (HFpEF) heart failure with preserved ejection fraction hx, f/u PCP currently History of hypothyroidism Hx of gastroesophageal reflux (GERD) Dyslipidemia Diabetic peripheral neuropathy associated with type 1 diabetes mellitus Diabetes mellitus type 1 IDDM Anxiety and depression History of atrial fibrillation currently on eliquis; no cardiology currently, plans to see in near futured, managed by PCP Essential hypertension Chronic venous insufficiency hx venous stasis ulcers "currently healed, has followed up with wound care in the past" Anemia due to chronic kidney disease ESRD (end stage renal disease) requiring hemodialysis. MWF at [facility]; f/u dr. 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) hx Surgical History S/P dialysis catheter insertion 2019; later removed Hx of right cataract extraction History of esophagogastroduodenoscopy (EGD) H/O detached retina repair S/P arteriovenous (AV) fistula creation (2019) left side Family History Mother Diabetes Coronary heart disease Hypertension Father Coronary heart disease Hypertension Brother Coronary heart disease Kidney disease Uncle Colorectal cancer Grandmother Diabetes Aunt Diabetes Unknown Dyslipidemia Grandfather (Maternal) Diabetes Other Cancer No family history of adverse response to anesthesia Social History Smoking Status: Never smoker Second Hand Exposure: No; Do You Dip or Chew Tobacco: No; Hx Alcohol Use: Yes Alcohol Intake Frequency: Monthly or Less Hx Substance Use: No Preferred Language: Frisian Communication Ability: Effective Visual Impairment: No Limitations Hearing Ability: Normal Radiotelegraphist Required: No Beliefs That Will Affect Care: None marital status: Single Current Living Situation: Alone Current Living Situation Comment: brother lives in apt below pt. 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" How many Children do You have: 0 Other Information That Helps Us Care for You: No Feels Safe at Home: Yes Safety Concerns: Feels Safe At This Time Diet: ideal protein and regular Dental Care, Regularly: No Physical Activity Frequency: Does not Exercise Seatbelt Use: always Sunscreen Use: No Assistive Devices: Cane, Glasses and Special Shoe Review of Systems Review of Systems: All systems reviewed & are unremarkable except as noted in HPI & below Physical Exam Constitutional: well developed; + not well nourished and no acute distress ENMT: external ear and nose normal, oropharynx normal Respiratory: normal respiratory effort, lungs clear to auscultation Cardiovascular: Rate/Rhythm: regular rate and regular rhythm Heart Sounds: no murmur Extremities: + pedal edema Gastrointestinal (Abdomen): normal bowel sounds, soft, nontender, no hepatosplenomegaly Skin: Multiple areas of skin erythematous patches on back Neurologic: moves all extremities and awake; not confused Psychiatric: A+Ox3, euthymic affect Results & Data Results & Data Vital Signs (Past 12 Hours) Vital Signs Temp Pulse Pulse Resp BP BP Pulse Ox 08/21/24 18:48 76 08/21/24 18:31 76 18 161/89 H 100 08/21/24 17:12 36.7 C 71 18 158/82 H 99 O2 Del Method 08/21/24 18:48 08/21/24 18:31 Room Air 08/21/24 17:12 Room Air Laboratory Results Abnormal lab results 08/21/24 Range/Units 17:30 RBC 3.18 L (4.70-6.10) M/uL Hgb 9.7 L (14.0-18.0) g/dl Hct 29.8 L (42.0-52.0) % RDW Std Deviation 52.2 H (36.4-46.3) fL RDW Coeff of Yuki 15.1 H (11.5-14.5) % Lymph # (Auto) 0.96 L (1.20-3.40) K/uL [place] # (Auto) 0.68 H (0.11-0.59) K/uL Sodium 133 L (136-145) mmol/L Potassium 5.3 H (3.5-5.1) mmol/L Chloride 87 L (98-107) mmol/L Carbon Dioxide 33 H (21-32) mmol/L Anion Gap 13 H (3-11) BUN 76 H (6-23) mg/dl Creatinine 8.57 H* (0.6-1.4) mg/dl BUN/Creatinine Ratio 8.9 L (10-20) Glucose 170 H (70-99(Fasting)) mg/dl ALT 3 L (7-52) U/L Alkaline Phosphatase 237 H (34-104) U/L Globulin 4.1 H (2.5-4.0) gm/dl Medications Administered ER Medications Given: Dilaudid 1mg IV ECG Rate (beats per minute): 73 Rhythm: normal sinus Findings: + T-wave inversion (Inferior) Comparison ECG Date: from (January 31, 2024) Change: the following changes noted (TWI now evident in inferior leads, TWI in AVL resolved) Code Status & VTE Plan Code Status Full VTE Prophylaxis Plan VTE Prophylaxis will be ordered: Yes PG Care Time/CCT Total # of Minutes Spent Total Time Spent with Patient: Total time spent is greater than 50% in coordination of care (as documented) at patient's floor/unit and/or counseling patient: Coding Level of Care Code 55206 INT INP/OBS CARE 3/75MIN Diagnoses Fluid overload E87.70 Hypervolemia type: unspecified Diabetes mellitus type 1 with complications E10.8 ESRD on dialysis N18.6; Z99.2 Hyperkalemia E87.5 (1) Fluid overload Hypervolemia type: unspecified Qualified Code(s): E87.70 - Fluid overload, unspecified
[2024-08-21] MEDS: SODIUM ZIRCONIUM CYCLOSILICATE 10 GM PACKET PO ONE (19:59)
[2024-08-21] MEDS ORDERED: GLUCAGON FOR INJ 1 MG VIAL SQ PRN (21:37)
[2024-08-21] MEDS ORDERED: DEXTROSE 50% 50 ML SYRINGE IV PRN (21:37)
[2024-08-21] MEDS ORDERED: GLUCOSE 10 TAB/TUBE PO PRN (21:37)
[2024-08-21] MEDS ORDERED: GLUCOSE 40% GEL 15 GM TUBE PO PRN (21:37)
[2024-08-21] MEDS ORDERED: CARBOHYDRATES FOR HYPOGLYCEMIA PO PRN (21:37)
[2024-08-21] MEDS ORDERED: PHARMACY GLYCEMIC MGMT CONSULT PRN (21:37)
[2024-08-21] MEDS: traMADol HCL 50 MG TABLET PO PRN (22:33)
[2024-08-21] MEDS: CINACALCET HCL 30 MG TAB PO SCH (22:33)
[2024-08-21] MEDS: ATORVASTATIN 40 MG TAB PO SCH (22:34)
[2024-08-21] MEDS: PREGABALIN 25 MG CAP PO SCH (22:34)
[2024-08-21] MEDS: rOPINIRole HCL 0.25 MG TABLET PO SCH (22:34)
[2024-08-21] MEDS: APIXABAN 5 MG TABLET PO SCH (22:35)
[2024-08-21] MEDS: METOPROLOL SUCC 50MG EXT REL TAB PO SCH (22:35)
[2024-08-21] MEDS: INSULIN ASPART PER UNIT CHARGE SC SCH (22:58)
[2024-08-21] MEDS: PANCREAZE (LIPASE 16,800U) CAP PO ONE (23:02)
[2024-08-21] MEDS: LANTUS PER UNIT CHARGE SQ SCH (23:02)
[2024-08-22] MEDS: ACETAMINOPHEN 325 MG TAB PO PRN (03:20)
[2024-08-22] MEDS: traMADol HCL 50 MG TABLET PO STA (03:20)
[2024-08-22] MEDS: INSULIN ASPART PER UNIT CHARGE SC SCH (04:00)
[2024-08-22] MEDS: LEVOTHYROXINE SODIUM 75 MCG TABLET PO SCH (06:22)
[2024-08-22 07:26] LABS: Hematocrit (blood only) 28.2 % (42.0-52.0); Mean Corpuscular Hemoglobin 30.2 pg (25.0-34.0); Mean Corpuscular Hgb Conc 31.9 g/dL (32.0-36.0); Mean Corpuscular Volume 94.6 fL (80.0-100.0); Mean Platelet Volume 9.9 fL (9.4-12.4); Platelet Count 149 K/uL (130-400); RDW Coefficient of Variation 14.9 % (11.5-14.5); RDW Standard Deviation 51.8 fL (36.4-46.3); Red Blood Count 2.98 M/uL (4.70-6.10); White Blood Count 6.28 K/ul (4.8-10.8)
[2024-08-22] MEDS: PANCREAZE (LIPASE 16,800U) CAP PO SCH (07:56)
[2024-08-22] MEDS: SEVELAMER CARBONATE 800 MG TAB PO SCH (07:56)
[2024-08-22 08:11] LABS: BUN Creatinine Ratio 8.4 (10-20); Calcium 8.6 mg/dl (8.6-10.3); Potassium 5.8 mmol/L (3.5-5.1)
[2024-08-22] MEDS: amLODIPine BESYLATE 5 MG TAB PO SCH (08:47)
[2024-08-22] MEDS: DULoxetine HCL 30 MG CAP PO SCH (08:48)
--- NOTE | 2024-08-22 09:09 | Hospitalist Progress Note ---
Date of Service August 22, 2024 Assessment & Plan (1) Fluid overload: (2) Diabetes mellitus type 1 with complications: (3) ESRD on dialysis: (4) Hyperkalemia: Plan 43 year old male presents to the ER after failed outpatient dialysis session #ESRD on dialysis / hyperkalemia - unsuccessful attempt for HD today - Vascular c/s placed for IJ TCC on Saturday - Lokelma 10g TID - nephrology on board - access site pain, cont prn tylenol, prn tramadol, prn oxycodone (narcan prn if oversedation/respiratory depression) #T1DM Lantus based on last hospitalization, start 20 units HS Novolog: --Goal BSG Range: Low 110 mg/dL, High 140 mg/dL --Correction Factor: 15 mg/dL/unit --Carbohydrate ratio = 5 g/unit --BSGs ACHS if eating, q6h if npo Consult pharmacy for ongoing glycemic control #Exocrine pancreatic insufficiency Continue Creon #History of pulmonary embolism Continue apixaban #Severe peripheral neuropathy Continue duloxetine and pregabalin Continue tramadol PRN #Restless leg syndrome Continue ropinirole #HTN Continue amlodipine, metoprolol VTE Prophylaxis - Eliquis Disposition - admit to med/tele Admission and Anticipated Discharge Date Admission Date: August 21, 2024 Subjective No acute events overnight HD attempted today but unsuccessful. He is c/o access site pain (11/29) from recent hematoma removal Review of Systems Review of Systems: comprehensive ROS neg Physical Exam Physical Exam: Gen: sitting in bedside chair, NAD HEENT: NC/AT, MMM Lungs: CTAB CVS: s1s2nl, RRR Abd: nl bowel sounds, soft, NT : no man Ext: chronic swelling with dry skin, LUE fistula with tori in place from recent hematoma evacuation Neuro: awake, alert, speaking in full sentences Psych: calm, cooperative Results & Data Results & Data Vital Signs (Past 12 Hours) Vital Signs Temp Pulse Pulse Pulse Resp BP Pulse Ox 08/22/24 07:38 36.4 C L 60 18 118/71 97 08/22/24 07:00 63 08/22/24 03:40 36.8 C 68 16 142/77 H 99 08/21/24 23:44 36.7 C 70 16 129/71 93 08/21/24 21:50 77 08/21/24 21:23 36.6 C 79 16 160/78 H 93 O2 Del Method 08/22/24 07:38 Room Air 08/22/24 07:00 08/22/24 03:40 Room Air 08/21/24 23:44 Room Air 08/21/24 21:50 08/21/24 21:23 Room Air PG Care Time/CCT Total # of Minutes Spent Total Time Spent with Patient: Total time spent is greater than 50% in coordination of care (as documented) at patient's floor/unit and/or counseling patient: Coding Level of Care Code 92241 SUB INP/OBS CARE 2/35MIN Diagnoses Fluid overload E87.70 Hypervolemia type: unspecified Diabetes mellitus type 1 with complications E10.8 ESRD on dialysis N18.6; Z99.2 Hyperkalemia E87.5 (1) Fluid overload Hypervolemia type: unspecified Qualified Code(s): E87.70 - Fluid overload, unspecified
[2024-08-22] MEDS ORDERED: SODIUM CHLORIDE 0.9% 1,000 ML IV PRN (09:20)
--- NOTE | 2024-08-22 09:24 | Nephrology Consultation ---
Date of Consultation August 22, 2024 Assessment & Plan (1) ESRD on dialysis: * L forearm AVF revised due due to expanding aneurysm * Incision appears well opposed. Numerous tori in place. Limited to area available for cannulation. Venous limb dives deep. Bruit can be auscultated * Although patient is 6 kg above his EDW he does not appear clinically volume overloaded. Lungs are clear, SaO2 92% on RA * Will provide HD today for correction of hyperkalemia and to provide UF * Outpatient hemodialysis orders: 4.25 hr, 2K 2.5Ca HCO3 38 Na 138, Elisio 17H dialyzer, Heparin load 3000/hourly 1100, EDW 102.5 kg 15g 1" needles * Diabetic, hemodialysis diet * Nephrocaps 1 daily * Monitor BMP (2) Hyperkalemia: * Lokelma provided by the primary service this morning (3) Fluid overload: * Although patient is 6 kg above his EDW he does not appear to have significant volume overload at this time. Will attempt to UF with HD today (4) Paroxysmal atrial fibrillation: * On apixaban (5) Diabetes mellitus type 1 with complications: History of Present Illness Reason for Consultation: ESKD-D Attending Physician: Dagmar Gupta MD History of Present Illness Mr. Snell is a 43 year old white male who is seen at the request of [facility] hospitalist service to provide inpatient HD. Information for the HPI is obtained from direct patient interview and review of the EMR. HPI is summarized as follows: Mr. Snell has ESKD due to IDDM. He was started on IHD 03/10 and d ialyzes via L forearm AVF. He currently dialyzes at [facility] (4.25 hr, 2K 2.5Ca HCO3 38 Na 138, Elisio 17H dialyzer, Heparin load 3000/hourly 1100, EDW 102.5 kg 15g 1" needles). His medical history is significant for IDDM (Dx at 11 yoa, + retinopathy & neuropathy), obesity (BMI 44), hypothyroidism, anemia, depression/anxiety, exocrine pancreatic insufficiency (creon), atrial fibrillation (apixaban). Mr. Snell had an expanding aneurysm of his AVF and required revision 08/18/[address] Combs. The aneursym was resected and replaced w/ an interposition bovine graft. Yesterday Mr. Snell dialyzed at [facility] due to power outage in [place]. Unfortunately the access proximal to the repair site was deep and difficult to cannulate. One hour into treatment his access infiltrated. Mr. Snell was 6 kg above his EDW. Hospital admission was advised for inpatient HD and IJ TCC if AVF could not be used. Allergies Allergy/AdvReac Type Severity Reaction Status Date / Time lisinopril AdvReac Intermediate COUGH Verified 08/21/24 19:15 Home Medications Medication Instructions Recorded Confirmed Type OneTouch Delica Lancets 33 gauge #400 ea 10/16/19 07/02/24 Rx (lancets) lancets 33 gauge (OneTouch Delica #400 ea 01/28/23 07/02/24 Rx Plus Lancet) acetone (urine) test (Ketostix 01/29/23 07/02/24 History strips) blood-glucose,direct of real estate,cont #1 ea 03/20/23 07/02/24 Rx (Dexcom G7 Lockstitch Front Maker) insulin detemir U-100 100 unit/mL 30 - 40 unit subcut HS 03/20/23 08/21/24 History (3 mL) subcutaneous pen blood sugar diagnostic (OneTouch #400 ea 05/21/23 07/02/24 Rx Verio test strips) blood-glucose meter (OneTouch #1 ea 05/21/23 07/02/24 Rx Verio Flex Meter) pen needle, diabetic 29 gauge x #400 ea 07/12/23 07/02/24 Rx 1/2" (Comfort EZ Pen [place]) blood-glucose sensor (Dexcom G7 #3 ea 08/27/23 07/02/24 Rx Sensor device) sevelamer carbonate 800 mg tablet 800 mg PO TIDM 90 days #240 tabs 12/05/23 08/21/24 Rx duloxetine 30 mg capsule,delayed 30 mg PO QAM #90 caps 03/13/24 08/21/24 Rx release apixaban 5 mg tablet (Eliquis) 5 mg PO BID 30 days #180 tabs 03/27/24 08/21/24 Rx pregabalin 25 mg capsule (Lyrica) 25 mg PO TID #90 caps 05/01/24 08/21/24 Rx metoprolol succinate 100 mg 100 mg PO BID #180 tabs 05/12/24 08/21/24 Rx tablet,extended release 24 hr ropinirole 0.5 mg tablet 0.5 mg PO BID #60 tabs 06/08/24 08/21/24 Rx ammonium lactate 5 % lotion 1 applic topical DAILY #226 grams 07/02/24 08/21/24 Rx (Lac-Hydrin Five) Wheeled Walker #1 ea 07/03/24 07/03/24 Rx amlodipine 10 mg tablet 10 mg PO QAM 08/06/24 08/21/24 History atorvastatin 80 mg tablet (Lipitor) 80 mg PO HS 08/06/24 08/21/24 History cinacalcet 60 mg tablet 60 mg PO HS 08/06/24 08/21/24 History insulin aspart U-100 100 unit/mL 30 unit subcut TID 08/06/24 08/21/24 History (3 mL) subcutaneous pen levothyroxine 75 mcg tablet 75 mcg PO QAM 08/06/24 08/21/24 History gukguv-grmeavti-auotciv 2 - 3 cap PO DIRECTED 08/21/24 08/21/24 History 36,000-114,000-180,000 unit capsule,delay rel (Creon) tramadol 50 mg tablet 100 - 200 mg PO BID PRN pain 08/21/24 08/21/24 History Patient History Medical History H/O dialysis fistulogram multiple (HFpEF) heart failure with preserved ejection fraction hx, f/u PCP currently History of hypothyroidism Hx of gastroesophageal reflux (GERD) Dyslipidemia Diabetic peripheral neuropathy associated with type 1 diabetes mellitus Diabetes mellitus type 1 IDDM Anxiety and depression History of atrial fibrillation currently on eliquis; no cardiology currently, plans to see in near futured, managed by PCP Essential hypertension Chronic venous insufficiency hx venous stasis ulcers "currently healed, has followed up with wound care in the past" Anemia due to chronic kidney disease ESRD (end stage renal disease) requiring hemodialysis. MWF at [facility]; f/u dr. 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) hx Surgical History S/P dialysis catheter insertion 2019; later removed Hx of right cataract extraction History of esophagogastroduodenoscopy (EGD) H/O detached retina repair S/P arteriovenous (AV) fistula creation (2019) left side Family History Mother Diabetes Coronary heart disease Hypertension Father Coronary heart disease Hypertension Brother Coronary heart disease Kidney disease Uncle Colorectal cancer Grandmother Diabetes Aunt Diabetes Unknown Dyslipidemia Grandfather (Maternal) Diabetes Other Cancer No family history of adverse response to anesthesia Social History Smoking Status: Never smoker Second Hand Exposure: No; Do You Dip or Chew Tobacco: No; Hx Alcohol Use: Yes Alcohol Intake Frequency: Monthly or Less Hx Substance Use: No Preferred Language: Beninese Communication Ability: Effective Visual Impairment: No Limitations Hearing Ability: Normal Industrial Production Manager Required: No Beliefs That Will Affect Care: None marital status: Single Current Living Situation: Alone Current Living Situation Comment: brother lives in apt below pt. 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" How many Children do You have: 0 Other Information That Helps Us Care for You: No Feels Safe at Home: Yes Safety Concerns: Feels Safe At This Time Diet: ideal protein and regular Dental Care, Regularly: No Physical Activity Frequency: Does not Exercise Seatbelt Use: always Sunscreen Use: No Assistive Devices: Cane, Glasses and Special Shoe Review of Systems Constitutional: no fever Eyes: no worsening vision Ear, Nose, Mouth, Throat: no problem reported Respiratory: no cough and no dyspnea Cardiovascular: no chest pain Gastrointestinal: no abdominal pain, no nausea, no vomiting and no diarrhea/loose stools Genitourinary: + problem reported (anuric) Integumentary: no rash Neurologic: no problem reported Physical Exam Constitutional: no acute distress Eyes: PERRL, conjunctivae normal, anicteric sclerae ENMT: external ear and nose normal, oropharynx normal Neck: trachea midline, no thyromegaly Respiratory: Auscultation: lungs clear to auscultation bilaterally Cardiovascular: Rate/Rhythm: regular rate and regular rhythm Extremities: + AV fistula (+ thrill but limited area for cannulation and venous limb is deep) Gastrointestinal (Abdomen): normal bowel sounds, soft, nontender, no hepatosplenomegaly Neurologic: Speech / Cognition: normal speech and normal cognition Psychiatric: Affect: euthymic affect Results & Data Vital Signs (Past 12 Hours) Vital Signs Temp Pulse Pulse Resp BP Pulse Ox O2 Del Method 08/22/24 07:38 36.4 C L 60 18 118/71 97 Room Air 08/22/24 07:00 63 08/22/24 03:40 36.8 C 68 16 142/77 H 99 Room Air 08/21/24 23:44 36.7 C 70 16 129/71 93 Room Air 08/21/24 21:50 77 Laboratory Results Laboratory Results WBC 6.28 K/ul (4.8-10.8) 08/22/24 06:49 RBC 2.98 M/uL (4.70-6.10) L 08/22/24 06:49 Hgb 9.0 g/dl (14.0-18.0) L 08/22/24 06:49 Hct 28.2 % (42.0-52.0) L 08/22/24 06:49 MCV 94.6 fL (80.0-100.0) 08/22/24 06:49 MCH 30.2 pg (25.0-34.0) 08/22/24 06:49 MCHC 31.9 g/dL (32.0-36.0) L 08/22/24 06:49 RDW Std Deviation 51.8 fL (36.4-46.3) H 08/22/24 06:49 RDW Coeff of Yuki 14.9 % (11.5-14.5) H 08/22/24 06:49 Plt Count 149 K/uL (130-400) 08/22/24 06:49 MPV 9.9 fL (9.4-12.4) 08/22/24 06:49 Immature Gran % (Auto) 0.3 % 08/21/24 17:30 Neut % (Auto) 70.1 % 08/21/24 17:30 Lymph % (Auto) 15.1 % 08/21/24 17:30 [place] % (Auto) 10.7 % 08/21/24 17:30 Eos % (Auto) 3.5 % 08/21/24 17:30 Baso % (Auto) 0.3 % 08/21/24 17:30 Neut # (Auto) 4.44 K/uL (1.40-6.50) 08/21/24 17:30 Lymph # (Auto) 0.96 K/uL (1.20-3.40) L 08/21/24 17:30 [place] # (Auto) 0.68 K/uL (0.11-0.59) H 08/21/24 17:30 Eos # (Auto) 0.22 K/uL (0.00-0.50) 08/21/24 17:30 Baso # (Auto) 0.02 K/uL (0.00-0.20) 08/21/24 17:30 Immature Gran # (Auto) 0.02 K/uL (0.01-0.20) 08/21/24 17:30 Sodium 134 mmol/L (136-145) L 08/22/24 06:49 Potassium 5.8 mmol/L (3.5-5.1) H 08/22/24 06:49 Chloride 91 mmol/L (98-107) L 08/22/24 06:49 Carbon Dioxide 30 mmol/L (21-32) 08/22/24 06:49 Anion Gap 13 (3-11) H 08/22/24 06:49 BUN 84 mg/dl (6-23) H 08/22/24 06:49 Creatinine 10.04 mg/dl (0.6-1.4) H* D 08/22/24 06:49 Est Cr Clr Drug Dosing 11.0 ml/min 08/22/24 06:49 eGFR 6.05 08/22/24 06:49 BUN/Creatinine Ratio 8.4 (10-20) L 08/22/24 06:49 Glucose 95 mg/dl (70-99(Fasting)) 08/22/24 06:49 POC Glucose 81 mg/dl (70-99) 08/22/24 08:09 Calcium 8.6 mg/dl (8.6-10.3) 08/22/24 06:49 Total Bilirubin 0.7 mg/dl (0.2-1.0) 08/21/24 17:30 AST 22 U/L (13-39) 08/21/24 17:30 ALT 3 U/L (7-52) L 08/21/24 17:30 Alkaline Phosphatase 237 U/L (34-104) H 08/21/24 17:30 Total Protein 7.9 gm/dl (6.0-8.3) 08/21/24 17:30 Albumin 3.8 gm/dl (3.4-5.0) 08/21/24 17:30 Globulin 4.1 gm/dl (2.5-4.0) H 08/21/24 17:30 Albumin/Globulin Ratio 0.9 (0.9-2) 08/21/24 17:30 PG Care Time/CCT Total # of Minutes Spent Total Time Spent with Patient: Total time spent is greater than 50% in coordination of care (as documented) at patient's floor/unit and/or counseling patient: Coding Level of Care Code 04459 IN/OBS CONSULT LVL 5,80M Diagnoses ESRD on dialysis N18.6; Z99.2 Hyperkalemia E87.5 Fluid overload E87.70 Hypervolemia type: unspecified Paroxysmal atrial fibrillation I48.0 Diabetes mellitus type 1 with complications E10.8 (3) Fluid overload Hypervolemia type: unspecified Qualified Code(s): E87.70 - Fluid overload, unspecified
[2024-08-22] MEDS: SODIUM ZIRCONIUM CYCLOSILICATE 10 GM PACKET PO STA (09:39)
[2024-08-22] MEDS ORDERED: NALOXONE HCL 0.4 MG/1 ML VIAL/CARP IV PRN (12:07)
--- NOTE | 2024-08-22 12:21 | Dialysis Progress Note ---
Date of Service August 22, 2024 Assessment & Plan (1) ESRD on dialysis: Plan: * Mr. Snell was seen at the initiation of HD today * "Safe zone" for AV fistula access was reviewed with the HD RN this a.m. * Unfortunately 4 attempts were made to access patient's AV fistula. Venous limb is deep and difficult to palpate. HD staff midwife/apprenticeship director were unable to secure reliable access for hemodialysis this morning * Dialysis orders were canceled and the patient was returned to his room. Hospitalist service was notified * I have spoken with vascular surgery. They will be available Saturday for IJ TCC placement (2) Hyperkalemia: Plan: * Continue Lokelma 10 g po TID * BMP at 1500 hrs. today and in a.m. (3) Fluid overload: Plan: * Although patient is 6 kg above his EDW. He appears comfortable. Lungs are CTA bilaterally. Room air SaO2 92%. 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 Snell was evaluated in the dialysis unit this morning. "Safe zone" for access cannulation was reviewed with the HD staff midwife/apprenticeship director. Review of Systems Constitutional: no fever Eyes: no worsening vision Ear, Nose, Mouth, Throat: no problem reported Respiratory: no cough and no dyspnea Cardiovascular: no chest pain Gastrointestinal: no abdominal pain, no nausea, no vomiting and no diarrhea/loose stools Genitourinary: + problem reported (anuric) Integumentary: no rash Neurologic: no problem reported Physical Exam Constitutional: no acute distress Eyes: PERRL, conjunctivae normal, anicteric sclerae ENMT: external ear and nose normal, oropharynx normal Neck: trachea midline, no thyromegaly Respiratory: Auscultation: lungs clear to auscultation bilaterally Cardiovascular: Rate/Rhythm: regular rate and regular rhythm Extremities: + AV fistula (+ thrill but limited area for cannulation and venous limb is deep) Gastrointestinal (Abdomen): normal bowel sounds, soft, nontender, no hepatosplenomegaly Neurologic: Speech / Cognition: normal speech and normal cognition Psychiatric: Affect: euthymic affect Results & Data Vital Signs (Past 12 Hours) Vital Signs Temp Pulse Pulse Pulse Resp BP Pulse Ox 08/22/24 11:20 36.7 C 69 18 132/73 92 08/22/24 10:26 36.4 C L 71 135/77 08/22/24 09:56 36.4 C L 71 08/22/24 07:38 36.4 C L 60 18 118/71 97 08/22/24 07:00 63 08/22/24 03:40 36.8 C 68 16 142/77 H 99 O2 Del Method 08/22/24 11:20 Room Air 08/22/24 10:26 08/22/24 09:56 08/22/24 07:38 Room Air 08/22/24 07:00 08/22/24 03:40 Room Air Laboratory Results Laboratory Results WBC 6.28 K/ul (4.8-10.8) 08/22/24 06:49 RBC 2.98 M/uL (4.70-6.10) L 08/22/24 06:49 Hgb 9.0 g/dl (14.0-18.0) L 08/22/24 06:49 Hct 28.2 % (42.0-52.0) L 08/22/24 06:49 MCV 94.6 fL (80.0-100.0) 08/22/24 06:49 MCH 30.2 pg (25.0-34.0) 08/22/24 06:49 MCHC 31.9 g/dL (32.0-36.0) L 08/22/24 06:49 RDW Std Deviation 51.8 fL (36.4-46.3) H 08/22/24 06:49 RDW Coeff of Yuki 14.9 % (11.5-14.5) H 08/22/24 06:49 Plt Count 149 K/uL (130-400) 08/22/24 06:49 MPV 9.9 fL (9.4-12.4) 08/22/24 06:49 Immature Gran % (Auto) 0.3 % 08/21/24 17:30 Neut % (Auto) 70.1 % 08/21/24 17:30 Lymph % (Auto) 15.1 % 08/21/24 17:30 [place] % (Auto) 10.7 % 08/21/24 17:30 Eos % (Auto) 3.5 % 08/21/24 17:30 Baso % (Auto) 0.3 % 08/21/24 17:30 Neut # (Auto) 4.44 K/uL (1.40-6.50) 08/21/24 17:30 Lymph # (Auto) 0.96 K/uL (1.20-3.40) L 08/21/24 17:30 [place] # (Auto) 0.68 K/uL (0.11-0.59) H 08/21/24 17:30 Eos # (Auto) 0.22 K/uL (0.00-0.50) 08/21/24 17:30 Baso # (Auto) 0.02 K/uL (0.00-0.20) 08/21/24 17:30 Immature Gran # (Auto) 0.02 K/uL (0.01-0.20) 08/21/24 17:30 Sodium 134 mmol/L (136-145) L 08/22/24 06:49 Potassium 5.8 mmol/L (3.5-5.1) H 08/22/24 06:49 Chloride 91 mmol/L (98-107) L 08/22/24 06:49 Carbon Dioxide 30 mmol/L (21-32) 08/22/24 06:49 Anion Gap 13 (3-11) H 08/22/24 06:49 BUN 84 mg/dl (6-23) H 08/22/24 06:49 Creatinine 10.04 mg/dl (0.6-1.4) H* D 08/22/24 06:49 Est Cr Clr Drug Dosing 11.0 ml/min 08/22/24 06:49 eGFR 6.05 08/22/24 06:49 BUN/Creatinine Ratio 8.4 (10-20) L 08/22/24 06:49 Glucose 95 mg/dl (70-99(Fasting)) 08/22/24 06:49 POC Glucose 151 mg/dl (70-99) H 08/22/24 12:00 Calcium 8.6 mg/dl (8.6-10.3) 08/22/24 06:49 Total Bilirubin 0.7 mg/dl (0.2-1.0) 08/21/24 17:30 AST 22 U/L (13-39) 08/21/24 17:30 ALT 3 U/L (7-52) L 08/21/24 17:30 Alkaline Phosphatase 237 U/L (34-104) H 08/21/24 17:30 Total Protein 7.9 gm/dl (6.0-8.3) 08/21/24 17:30 Albumin 3.8 gm/dl (3.4-5.0) 08/21/24 17:30 Globulin 4.1 gm/dl (2.5-4.0) H 08/21/24 17:30 Albumin/Globulin Ratio 0.9 (0.9-2) 08/21/24 17:30 [facility] Procedure Codes (Charges) Renal/Urologic Renal/Urologic: 31217 Hemodialysis, One Evaluation Coding Level of Care Code None Diagnoses ESRD on dialysis N18.6; Z99.2 Hyperkalemia E87.5 Fluid overload E87.70 Hypervolemia type: unspecified Paroxysmal atrial fibrillation I48.0 Diabetes mellitus type 1 with complications E10.8 CPT Codes Renal/Urologic - Renal/Urologic: 88413 Hemodialysis, One Evaluation ([id number]) (3) Fluid overload Hypervolemia type: unspecified Qualified Code(s): E87.70 - Fluid overload, unspecified
[2024-08-22] MEDS: SODIUM ZIRCONIUM CYCLOSILICATE 10 GM PACKET PO SCH (14:03)
--- NOTE | 2024-08-22 14:10 | Pharmacy Report ---
Pharmacy Glycemic Short Note 2 - Date of Service August 22, 2024 - Glycemic Short BSG Results (Last 24 hours): 08/21/24 08/21/24 08/21/24 17:30 22:44 22:49 Glucose 170 H POC Glucose 309 H* 304 H* 08/22/24 08/22/24 08/22/24 01:58 03:54 06:49 Glucose 95 POC Glucose 244 H 202 H 08/22/24 08/22/24 08:09 12:00 Glucose POC Glucose 81 151 H OUTPATIENT ANTIDIABETIC REGIMEN: * Levemir 30-40 units SQ at HS * Insulin aspart-inject 3 times a day as per sliding scale up to 20 units/dose HbA1C: 9.1% on 06/23/24 ASSESSMENT: * 43 year old male admitted yesterday due to need for PermCath replacement. Patient has end stage renal disease and is on HD Saturday, Saturday, and Saturday. Pharmacy has been consulted for glycemic management while he is admitted. * BSG was 304mg/dL last evening. Lantus 20 units SQ x 1 was ordered and patient was started on a bolus insulin regimen with fairly tight parameters. * Fasting BSG was 81mg/dL this morning. Bolus insulin parameters were loosened a nd a Lantus scale (0,10, or 20 units depending on BSG) was added for HS. PLAN FOR INPATIENT GLYCEMIC CONTROL: * Hold outpatient diabetes medications * Basal insulin * Lantus scale at HS (0,10,or 20 units depending on BSG) * Bolus insulin * NovoLog per scale ACHS or Q6hrs while NPO * Goal Range: Low 110 mg/dL - High 140 mg/dL * Correction Factor: 30 mg/dL/unit * Nutritional / Prandial insulin per carb ratio of 1 unit per 10 grams CHO consumed
[2024-08-22 15:09] LABS: BUN Creatinine Ratio 8.6 (10-20); Calcium 8.5 mg/dl (8.6-10.3); Creatinine Clr Calc Pharmacy 10.8 ml/min
[2024-08-22] MEDS: EUCERIN CR 120 GM JAR EXT SCH (20:29)
[2024-08-22] MEDS: traMADol HCL 50 MG TABLET PO PRN (20:30)
[2024-08-22] MEDS: DOCUSATE SODIUM/SENNA 50/8.6MG TAB PO SCH (20:31)
[2024-08-22] MEDS: LANTUS PER UNIT CHARGE SC SCH (20:31)
[2024-08-23 07:03] LABS: Hematocrit (blood only) 25.5 % (42.0-52.0); Hemoglobin 8.3 g/dl (14.0-18.0); Mean Corpuscular Hemoglobin 30.6 pg (25.0-34.0); Mean Corpuscular Hgb Conc 32.5 g/dL (32.0-36.0); Mean Corpuscular Volume 94.1 fL (80.0-100.0); Mean Platelet Volume 9.9 fL (9.4-12.4); Platelet Count 154 K/uL (130-400); RDW Coefficient of Variation 14.6 % (11.5-14.5); RDW Standard Deviation 50.4 fL (36.4-46.3); Red Blood Count 2.71 M/uL (4.70-6.10); White Blood Count 6.93 K/ul (4.8-10.8)
[2024-08-23 07:35] LABS: BUN Creatinine Ratio 8.9 (10-20); Calcium 8.5 mg/dl (8.6-10.3); Creatinine Clr Calc Pharmacy 9.8 ml/min; Potassium 5.6 mmol/L (3.5-5.1)
--- NOTE | 2024-08-23 09:07 | Electrocardiogram Report ---
Test Reason : Blood Pressure : */* mmHG Vent. Rate : 73 BPM Atrial Rate : 73 BPM P-R Int : 146 ms QRS Dur : 88 ms QT Int : 396 ms P-R-T Axes : 15 2 -9 degrees QTcB Int : 436 ms Normal sinus rhythm Voltage criteria for left ventricular hypertrophy ( ) Abnormal ECG When compared with ECG of 31-Jan-2024 17:48, T wave inversion now evident in Inferior leads T wave inversion no longer evident in Lateral leads Confirmed by Ivory Kumar (Pérez) on 08/23/2024 9:06:46 AM Referred By: REFERRED SELF Confirmed By: Ivory Kumar
--- NOTE | 2024-08-23 09:16 | Nephrology Progress Note ---
Date of Service August 23, 2024 Assessment & Plan (1) ESRD on dialysis: Plan: * Unable to access AVF for HD 08/22/24 * Volume status is acceptable - lungs CTA, RA SaO2 95%, patient without respiratory distress * Vascular surgery has been consulted for IJ TCC on Saturday * Once surgical site is healed and tori removed, then staff reporter can attempt to use interposition bovine AVF * Will plan for HD tomorrow following IJ TCC placement (2) Hyperkalemia: Plan: * Serum K 5.6 this am * Continue low K, hemodialysis/diabetic diet * Continue Lokelma 10 g po TID * BMP at 1500 hrs. today and in a.m. (3) Fluid overload: Plan: * Although patient is 6 kg above his EDW. He appears comfortable. Lungs are CTA bilaterally. Room air SaO2 95%. 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 Snell was evaluated in his hospital room this morning. He was breathing comfortably on RA and voiced no new medical concerns Review of Systems Constitutional: no fever Eyes: no worsening vision Ear, Nose, Mouth, Throat: no problem reported Respiratory: no cough and no dyspnea Cardiovascular: no chest pain Gastrointestinal: no abdominal pain, no nausea, no vomiting and no diarrhea/loose stools Genitourinary: + problem reported (anuric) Integumentary: no rash Neurologic: no problem reported Physical Exam Constitutional: no acute distress Eyes: PERRL, conjunctivae normal, anicteric sclerae ENMT: external ear and nose normal, oropharynx normal Neck: trachea midline, no thyromegaly Respiratory: Auscultation: lungs clear to auscultation bilaterally Cardiovascular: Rate/Rhythm: regular rate and regular rhythm Extremities: + AV fistula (+ thrill but limited area for cannulation and venous limb is deep) Gastrointestinal (Abdomen): normal bowel sounds, soft, nontender, no hepatosplenomegaly Neurologic: Speech / Cognition: normal speech and normal cognition Psychiatric: Affect: euthymic affect Results & Data Vital Signs (Past 12 Hours) Vital Signs Temp Pulse Pulse Resp BP Pulse Ox O2 Del Method 08/23/24 07:20 36.6 C 65 18 116/67 95 Room Air 08/23/24 07:00 71 08/23/24 04:35 36.9 C 70 16 131/74 98 Room Air 08/23/24 01:07 75 08/22/24 22:54 36.9 C 73 18 131/70 96 Room Air Laboratory Results Laboratory Results - last 24 hr 08/22/24 08/22/24 08/22/24 12:00 14:33 16:59 WBC RBC Hgb Hct MCV MCH MCHC RDW Std Deviation RDW Coeff of Yuki Plt Count MPV Sodium 133 L Potassium 6.0 H Chloride 89 L Carbon Dioxide 32 Anion Gap 12 H BUN 88 H Creatinine 10.23 H* Est Cr Clr Drug Dosing 10.8 eGFR 5.92 BUN/Creatinine Ratio 8.6 L Glucose 141 H POC Glucose 151 H 163 H Calcium 8.5 L Hep Bs Antigen 08/22/24 08/22/24 08/23/24 20:05 Unknown 06:29 WBC 6.93 RBC 2.71 L Hgb 8.3 L Hct 25.5 L MCV 94.1 MCH 30.6 MCHC 32.5 RDW Std Deviation 50.4 H RDW Coeff of Yuki 14.6 H Plt Count 154 MPV 9.9 Sodium 135 L Potassium 5.6 H Chloride 90 L Carbon Dioxide 30 Anion Gap 15 H BUN 101 H Creatinine 11.30 H* D Est Cr Clr Drug Dosing 9.8 eGFR 5.25 BUN/Creatinine Ratio 8.9 L Glucose 119 H POC Glucose 134 H Calcium 8.5 L Hep Bs Antigen Negative 08/23/24 07:56 WBC RBC Hgb Hct MCV MCH MCHC RDW Std Deviation RDW Coeff of Yuki Plt Count MPV Sodium Potassium Chloride Carbon Dioxide Anion Gap BUN Creatinine Est Cr Clr Drug Dosing eGFR BUN/Creatinine Ratio Glucose POC Glucose 124 H Calcium Hep Bs Antigen PG Care Time/CCT Total # of Minutes Spent Total Time Spent with Patient: Total time spent is greater than 50% in coordination of care (as documented) at patient's floor/unit and/or counseling patient: Coding Level of Care Code 68948 SUB INP/OBS CARE 3/50MIN Diagnoses ESRD on dialysis N18.6; Z99.2 Hyperkalemia E87.5 Fluid overload E87.70 Hypervolemia type: unspecified Paroxysmal atrial fibrillation I48.0 Diabetes mellitus type 1 with complications E10.8 (3) Fluid overload Hypervolemia type: unspecified Qualified Code(s): E87.70 - Fluid overload, un specified
[2024-08-23 15:23] LABS: BUN Creatinine Ratio 8.2 (10-20); Calcium 8.8 mg/dl (8.6-10.3); Creatinine Clr Calc Pharmacy 8.7 ml/min; Potassium 5.8 mmol/L (3.5-5.1)
--- NOTE | 2024-08-23 15:36 | Hospitalist Progress Note ---
Date of Service August 23, 2024 Assessment & Plan (1) Fluid overload: (2) Diabetes mellitus type 1 with complications: (3) ESRD on dialysis: (4) Hyperkalemia: Plan 43 year old male presents to the ER after failed outpatient dialysis session #ESRD on dialysis / hyperkalemia - unsuccessful attempt for HD today - Vascular c/s placed for IJ TCC on Saturday - Lokelma 10g TID - nephrology on board - access site pain, cont prn tylenol, prn tramadol, prn oxycodone (narcan prn if oversedation/respiratory depression) #T1DM Lantus based on last hospitalization, start 20 units HS Novolog: --Goal BSG Range: Low 110 mg/dL, High 140 mg/dL --Correction Factor: 15 mg/dL/unit --Carbohydrate ratio = 5 g/unit --BSGs ACHS if eating, q6h if npo Consult pharmacy for ongoing glycemic control #Exocrine pancreatic insufficiency Continue Creon #History of pulmonary embolism On apixaban (placed on hold for procedure saturday, last dose 5/4 AM, resume after TCC placement) #Severe peripheral neuropathy Continue duloxetine and pregabalin Continue tramadol PRN #Restless leg syndrome Continue ropinirole #HTN Continue amlodipine, metoprolol VTE Prophylaxis - Eliquis Disposition - admit to med/tele Admission and Anticipated Discharge Date Admission Date: August 21, 2024 Subjective No acute events overnight Currently no new complaints, states LUE fistula site pain is now 2/10 Review of Systems Review of Systems: comprehensive ROS neg Physical Exam Physical Exam: Gen: sitting in bedside chair, NAD HEENT: NC/AT, MMM Lungs: CTAB CVS: s1s2nl, RRR Abd: nl bowel sounds, soft, NT : no man Ext: chronic swelling with dry skin, LUE fistula with tori in place from recent hematoma evacuation Neuro: awake, alert, speaking in full sentences Psych: calm, cooperative Results & Data Results & Data Vital Signs (Past 12 Hours) Vital Signs Temp Pulse Pulse Resp BP Pulse Ox O2 Del Method 08/23/24 14:59 36.6 C 65 18 126/69 97 Room Air 08/23/24 14:00 67 08/23/24 11:25 36.7 C 70 18 145/79 H 99 Room Air 05/04/25 07:20 36.6 C 65 18 116/67 95 Room Air 08/23/24 07:00 71 08/23/24 04:35 36.9 C 70 16 131/74 98 Room Air PG Care Time/CCT Total # of Minutes Spent Total Time Spent with Patient: Total time spent is greater than 50% in coordination of care (as documented) at patient's floor/unit and/or counseling patient: Coding Level of Care Code 53985 SUB INP/OBS CARE 2/35MIN Diagnoses Fluid overload E87.70 Hypervolemia type: unspecified Diabetes mellitus type 1 with complications E10.8 ESRD on dialysis N18.6; Z99.2 Hyperkalemia E87.5 (1) Fluid overload Hypervolemia type: unspecified Qualified Code(s): E87.70 - Fluid overload, unspecified
[2024-08-23] MEDS: NYSTATIN POWDER 15GM BTL EXT SCH (21:57)
[2024-08-23] MEDS: MUPIROCIN 2% OINT 22 GM TUBE EXT SCH (21:57)
[2024-08-23] MEDS: AMMONIUM LACTATE 12% LOTION 225 GM BTL EXT SCH (21:57)
[2024-08-23] MEDS: PANCREAZE (LIPASE 16,800U) CAP PO PRN (22:01)
[2024-08-24 05:55] LABS: BUN Creatinine Ratio 8.8 (10-20); Calcium 8.7 mg/dl (8.6-10.3); Creatinine Clr Calc Pharmacy 8.5 ml/min; Potassium 5.6 mmol/L (3.5-5.1)
--- NOTE | 2024-08-24 07:49 | Consultation ---
Date of Consultation August 24, 2024 Assessment & Plan (1) ESRD on dialysis: We recommended placement of a PermCath. I have discussed the risks options and benefits of the procedure with the patient. The patient understands the risks options and benefits and agrees to the procedure. History of Present Illness Reason for Consultation: End-stage renal disease Attending Physician: Silvino Noel MD History of Present Illness This is a 41-year-old male with a left arm fistula which underwent revision. They are unable to access the remaining fistula dialysis. He is now in need of dialysis. Allergies Allergy/AdvReac Type Severity Reaction Status Date / Time lisinopril AdvReac Intermediate COUGH Verified 08/21/24 19:15 Home Medications Medication Instructions Recorded Confirmed Type OneTouch Delica Lancets 33 gauge #400 ea 10/16/19 07/02/24 Rx (lancets) lancets 33 gauge (OneTouch Delica #400 ea 01/28/23 07/02/24 Rx Plus Lancet) acetone (urine) test (Ketostix 01/29/23 07/02/24 History strips) blood-glucose,water maintenance supervisor,cont #1 ea 03/20/23 07/02/24 Rx (Dexcom G7 Architectural Wood Model Maker) insulin detemir U-100 100 unit/mL 30 - 40 unit subcut HS 03/20/23 08/21/24 History (3 mL) subcutaneous pen blood sugar diagnostic (OneTouch #400 ea 05/21/23 07/02/24 Rx Verio test strips) blood-glucose meter (OneTouch #1 ea 05/21/23 07/02/24 Rx Verio Flex Meter) pen needle, diabetic 29 gauge x #400 ea 07/12/23 07/02/24 Rx 1/2" (Comfort EZ Pen Pioneer) blood-glucose sensor (Dexcom G7 #3 ea 08/27/23 07/02/24 Rx Sensor device) sevelamer carbonate 800 mg tablet 800 mg PO TIDM 90 days #240 tabs 12/05/23 08/21/24 Rx duloxetine 30 mg capsule,delayed 30 mg PO QAM #90 caps 03/13/24 08/21/24 Rx release apixaban 5 mg tablet (Eliquis) 5 mg PO BID 30 days #180 tabs 03/27/24 08/21/24 Rx pregabalin 25 mg capsule (Lyrica) 25 mg PO TID #90 caps 05/01/24 08/21/24 Rx metoprolol succinate 100 mg 100 mg PO BID #180 tabs 05/12/24 08/21/24 Rx tablet,extended release 24 hr ropinirole 0.5 mg tablet 0.5 mg PO BID #60 tabs 06/08/24 08/21/24 Rx ammonium lactate 5 % lotion 1 applic topical DAILY #226 grams 07/02/24 08/21/24 Rx (Lac-Hydrin Five) Wheeled Walker #1 ea 07/03/24 07/03/24 Rx amlodipine 10 mg tablet 10 mg PO QAM 08/06/24 08/21/24 History atorvastatin 80 mg tablet (Lipitor) 80 mg PO HS 08/06/24 08/21/24 History cinacalcet 60 mg tablet 60 mg PO HS 08/06/24 08/21/24 History insulin aspart U-100 100 unit/mL 30 unit subcut TID 08/06/24 08/21/24 History (3 mL) subcutaneous pen levothyroxine 75 mcg tablet 75 mcg PO QAM 08/06/24 08/21/24 History qusyll-zznsfubq-pewrxoz 2 - 3 cap PO DIRECTED 08/21/24 08/21/24 History 36,000-114,000-180,000 unit capsule,delay rel (Creon) tramadol 50 mg tablet 100 - 200 mg PO BID PRN pain 08/21/24 08/21/24 History Patient History Medical History H/O dialysis fistulogram multiple (HFpEF) heart failure with preserved ejection fraction hx, f/u PCP currently History of hypothyroidism Hx of gastroesophageal reflux (GERD) Dyslipidemia Diabetic peripheral neuropathy associated with type 1 diabetes mellitus Diabetes mellitus type 1 IDDM Anxiety and depression History of atrial fibrillation currently on eliquis; no cardiology currently, plans to see in near futured, managed by PCP Essential hypertension Chronic venous insufficiency hx venous stasis ulcers "currently healed, has followed up with wound care in the past" Anemia due to chronic kidney disease ESRD (end stage renal disease) requiring hemodialysis. MWF at [facility]; f/u dr. 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) hx Surgical History S/P dialysis catheter insertion 2019; later removed Hx of right cataract extraction History of esophagogastroduodenoscopy (EGD) H/O detached retina repair S/P arteriovenous (AV) fistula creation (2019) left side Family History Mother Diabetes Coronary heart disease Hypertension Father Coronary heart disease Hypertension Brother Coronary heart disease Kidney disease Uncle Colorectal cancer Grandmother Diabetes Aunt Diabetes Unknown Dyslipidemia Grandfather (Maternal) Diabetes Other Cancer No family history of adverse response to anesthesia Social History Smoking Status: Never smoker Second Hand Exposure: No; Do You Dip or Chew Tobacco: No; Hx Alcohol Use: Yes Alcohol Intake Frequency: Monthly or Less Hx Substance Use: No Preferred Language: Kinyarwanda Communication Ability: Effective Visual Impairment: No Limitations Hearing Ability: Normal Operator Coating Furnace Required: No Beliefs That Will Affect Care: None marital status: Single Current Living Situation: Alone Current Living Situation Comment: brother lives in apt below pt. 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" How many Children do You have: 0 Other Information That Helps Us Care for You: No Feels Safe at Home: Yes Safety Concerns: Feels Safe At This Time Diet: ideal protein and regular Dental Care, Regularly: No Physical Activity Frequency: Does not Exercise Seatbelt Use: always Sunscreen Use: No Assistive Devices: None Review of Systems Review of Systems: All systems reviewed & are unremarkable except as noted in HPI & below Physical Exam Constitutional: WD/WN, vitals as above Respiratory: normal respiratory effort, lungs clear to auscultation Cardiovascular: RRR, no murmur, no edema Extremities: + AV fistula Gastrointestinal (Abdomen): normal bowel sounds, soft, nontender, no hepatosplenomegaly Neurologic: CN's II-XI intact bilaterally and moves all extremities Psychiatric: A+Ox3, euthymic affect Results & Data Vital Signs (Past 12 Hours) Vital Signs Temp Pulse Pulse Resp BP Pulse Ox O2 Del Method 08/24/24 03:30 36.8 C 71 19 146/76 H 95 Room Air 08/23/24 22:50 37.2 C 74 18 151/74 H 99 Room Air 08/23/24 21:59 73
[2024-08-24] MEDS ORDERED: SODIUM CHLORIDE 0.9% 1,000 ML IV PRN (08:47)
--- NOTE | 2024-08-24 08:51 | Nephrology Progress Note ---
Date of Service August 24, 2024 Assessment & Plan (1) ESRD on dialysis: Plan: * Unable to access AVF for HD 08/22/24 * L IJ TCC placed by vascular surgery 08/24/24 * Will provide HD today and attempt 3 L UF. Orders have been placed in EMR and HD RN notified * Will plan brief HD in am for continued UF as patient is 6.3 kg above EDW * Once surgical site is healed and tori removed, then [facility] plans staff officer can attempt to use interposition bovine AVF (2) Hyperkalemia: Plan: * Serum K 5.6 this am * Stop Lokelma * Will use 2K dialysate during HD today (3) Fluid overload: Plan: * See above ESRD on dialysis (4) Paroxysmal atrial fibrillation: Plan: * Resume apixaban as per primary service (5) Diabetes mellitus type 1 with complications: Admission and Anticipated Discharge Date Admission Date: August 21, 2024 Subjective Mr. Snell was evaluated prior to HD this morning. L IJ TCC had just been placed. There were no complications. Mr. Snell denied angina, dyspnea. Review of Systems Constitutional: no fever Eyes: no worsening vision Ear, Nose, Mouth, Throat: no problem reported Respiratory: no cough and no dyspnea Cardiovascular: no chest pain Gastrointestinal: no abdominal pain, no nausea, no vomiting and no diarrhea/loose stools Genitourinary: + problem reported (anuric) Integumentary: no rash Neurologic: no problem reported Physical Exam Constitutional: no acute distress Eyes: PERRL, conjunctivae normal, anicteric sclerae ENMT: external ear and nose normal, oropharynx normal Neck: trachea midline, no thyromegaly L IJ TCC with clean dry dressing in place Respiratory: Auscultation: lungs clear to auscultation bilaterally Cardiovascular: Rate/Rhythm: regular rate and regular rhythm Extremities: + AV fistula (+ thrill but limited area for cannulation and venous limb is deep) Gastrointestinal (Abdomen): normal bowel sounds, soft, nontender, no hepatosplenomegaly Neurologic: Speech / Cognition: normal speech and normal cognition Psychiatric: Affect: euthymic affect Results & Data Vital Signs (Past 12 Hours) Vital Signs Temp Pulse Pulse Resp BP Pulse Ox O2 Del Method 08/24/24 08:41 37.1 C 74 20 162/89 H 99 Room Air 08/24/24 08:16 36.6 C 71 163/79 H 98 Room Air 08/24/24 03:30 36.8 C 71 19 146/76 H 95 Room Air 08/23/24 22:50 37.2 C 74 18 151/74 H 99 Room Air 08/23/24 21:59 73 Laboratory Results Laboratory Results - last 24 hr 08/23/24 08/23/24 08/23/24 12:08 14:44 17:10 Sodium 134 L Potassium 5.8 H Chloride 88 L Carbon Dioxide 32 Anion Gap 14 H BUN 104 H Creatinine 12.76 H* D Est Cr Clr Drug Dosing 8.7 eGFR 4.54 BUN/Creatinine Ratio 8.2 L Glucose 139 H POC Glucose 153 H 172 H Calcium 8.8 08/23/24 08/24/24 08/24/24 20:25 05:14 07:49 Sodium 135 L Potassium 5.6 H Chloride 88 L Carbon Dioxide 29 Anion Gap 18 H BUN 115 H Creatinine 13.11 H* D Est Cr Clr Drug Dosing 8.5 eGFR 4.39 BUN/Creatinine Ratio 8.8 L Glucose 113 H POC Glucose 142 H 124 H Calcium 8.7 PG Care Time/CCT Total # of Minutes Spent Total Time Spent with Patient: Total time spent is greater than 50% in coordination of care (as documented) at patient's floor/unit and/or counseling patient: Coding Level of Care Code 00655 SUB INP/OBS CARE 3/50MIN Diagnoses ESRD on dialysis N18.6; Z99.2 Hyperkalemia E87.5 Fluid overload E87.70 Hypervolemia type: unspecified Paroxysmal atrial fibrillation I48.0 Diabetes mellitus type 1 with complications E10.8 (3) Fluid overload Hypervolemia type: unspecified Qualified Code(s): E87.70 - Fluid overload, unspecified
[2024-08-24] MEDS: ceFAZolin 2000MG 2,000 MG/15 ML SYR IV ONE (09:13)
--- NOTE | 2024-08-24 09:16 | Operative Report ---
Post Operative Report Pre & Post Diagnosis Operation Date: 08/24/24 09:30 Pre-Op Diagnosis: ESRD Post-Op Diagnosis: ESRD I identified the patient and participated in the time-out.: Yes Procedure Operation Date: 08/24/24 09:30 Actual Procedures p Insertion of Perm Catheter, Left Internal Jugular Approach, Ultrasound Localization of Left Internal Jugular Vein, Fluoroscopy for Positioning, Moderate Sedation [id number](Left) - Poli Combs MD Surgeon Poli Combs MD Shank Stitcher Layne Hall-MD Melchor Estimated Blood Loss 30 Findings See Below Left internal jugular vein was patent with no filling defects. The catheter was well positioned on completion angiography. Specimens None Anesthesia Type MAC Complications None immediately evident. Indications 43 year old M with history of ESRD on hemodialysis with prior AVF, hyperkalemia, fluid overload, paroxysmal atrial fibrillation who was consulted to our service given his AVF has been unable to be accessed since 08/22/24. Patient was consented for Permcath placement for continuation of dialysis. Description of Procedure Patient was taken to the angio suite and placed in the supine position. The left side of the neck and chest wall were prepped and draped in a sterile manner. Local anesthesia was then administered to the appropriate areas of the neck and chest wall. Ultrasound was then used to locate the left internal jugular vein. The vein compressed easily, had no filling defects, and was patent. The vein was then punctured under direct ultrasound imaging. A guidewire was then passed centrally under fluoroscopic imaging. A stab wound was then made in the anterior chest wall and a 23 cm Permcath was passed from the stab wound on the chest wall to the puncture site on the neck. The puncture site was then dilated until the 14Fr peel away sheath was inserted. The Permcath was then inserted through the sheath to a central position in the distal superior vena cava. The peel away sheath was then removed. A stiff glidewire was inserted through one of the ports to straighten out the catheter. The catheter then was readvanced until the cuff was under the skin completely. Position was confirmed under angiography. The catheter was then sutured in place using nylon sutures. The puncture was then closed using a 4-0 Vicryl subcuticular suture. Dermabond was used for a dressing on the puncture site. Both ports aspirated and flushed easily and were then packed with heparin. A sterile dressing was applied to the catheter. The patient left the angio suite in good condition and tolerated the procedure well. I attest to the content of the Intraoperative Record and any orders documented therein. Any exceptions are noted below.
--- NOTE | 2024-08-24 09:29 | Hospitalist Progress Note ---
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: Plan: Lantus based on last hospitalization, start 20 units HS Novolog: --Goal BSG Range: Low 110 mg/dL, High 140 mg/dL --Correction Factor: 15 mg/dL/unit --Carbohydrate ratio = 5 g/unit --BSGs ACHS if eating, q6h if npo (3) ESRD on dialysis: Plan: -permacath placed -HD as per nephrology (4) Hyperkalemia: Plan: -awaiting HD (5) Paroxysmal atrial fibrillation: Plan: On apixaban (placed on hold for procedure saturday, last dose 5/4 AM, resume after TC (6) Hypertension: Plan: Continue amlodipine, met Plan 43 year old male presents to the ER after failed outpatient dialysis session Admission and Anticipated Discharge Date Admission Date: August 21, 2024 Subjective No events overnight. Pt resting comfortably in bed. Review of Systems Review of Systems: CONST: Negative for fever, body aches and chills. HENT: Negative for neck pain/stiffness, headache, congestion, sore throat, swelling. EYES: Negative for discharge/pain or vision changes. RESP: Negative for cough/hemoptysis and shortness of breath. CV: Negative chest pain, difficulty breathing, palpitations. ABD: Negative pain, nausea, vomiting. : Negative increase frequency, dysuria, blood in urine or stool. MUSC: Negative for muscle aches, edema. SKIN: Negative rash, lesions/sores. NEURO: Negative headache, dizziness, weakness. Physical Exam Physical Exam: GENERAL APPEARANCE NAD, activity normal for age, well developed/ well nourished, no cyanosis, pallor, or diaphoresis. EYES lids/conjunctiva normal. EARS/NOSE/THROAT Mucous membranes moist, nares normal, lips/teeth normal uvula midline without oral pharyngeal erythema, exudate or swelling TMs normal bilaterally. No lymphangitis/lymphedema. HEAD/NECK normocephalic atraumatic, no facial trauma, neck is supple. RESPIRATORY respiratory effort normal, speaks in full sentences, no tripod position, no accessory muscle use. Lungs clear to auscultation without rhonchi, wheezes, rales CARDIAC Regular rate and rhythm, no edema. ABDOMINAL Soft, ND/NT. No evidence of fluid wave. No pulsatile masses on exam, rebound tenderness, Multani sign or pain over Mcburney's point. MUSCLES/EXTREMITIES No abnormal range of motion, no swelling. SKIN Warm, pink and dry. No rashes, dermatoses, petechiae or lesions. Left forearm 5x6cm hematoma with tori inplace NEUROLOGICAL Speech is clear and appropriate. Normal level of consciousness. Gait and coordination are normal. 5/5 strength in all extremities. PSYCH Normal mood and affect. Judgement/competence is appropriate Results & Data Results & Data Vital Signs (Past 12 Hours) Vital Signs Temp Pulse Pulse Resp BP Pulse Ox O2 Del Method 08/24/24 08:41 37.1 C 74 20 162/89 H 99 Room Air 08/24/24 08:16 36.6 C 71 163/79 H 98 Room Air 08/24/24 03:30 36.8 C 71 19 146/76 H 95 Room Air 08/23/24 22:50 37.2 C 74 18 151/74 H 99 Room Air 08/23/24 21:59 73 PG Care Time/CCT Total # of Minutes Spent Total Time Spent with Patient: Total time spent is greater than 50% in coordination of care (as documented) at patient's floor/unit and/or counseling patient: Coding Level of Care Code 01947 SUB INP/OBS CARE 2/35MIN Diagnoses Fluid overload E87.70 Hypervolemia type: unspecified Diabetes mellitus type 1 with complications E10.8 ESRD on dialysis N18.6; Z99.2 Hyperkalemia E87.5 Paroxysmal atrial fibrillation I48.0 Hypertension I10 Hypertension type: unspecified (1) Fluid overload Hypervolemia type: unspecified Qualified Code(s): E87.70 - Fluid overload, unspecified (6) Hypertension Hypertension type: unspecified Qualified Code(s): I10 - Essential (primary) hypertension
[2024-08-24] MEDS: fentaNYL citrate PF 100 MCG/2 ML VIAL ONE (09:38)
[2024-08-24] MEDS: MIDAZOLAM HCL 1 MG/ML 2ML VIAL ONE (09:38)
[2024-08-24] MEDS: LIDOCAINE 1% LOCAL 20 ML VIAL ONE (09:51)
--- NOTE | 2024-08-24 10:15 | Post Operative Brief Note ---
Immediate Post Op Note Date of Surgery August 24, 2024 Pre & Post Diagnosis Operation Date: 08/24/24 09:30 Pre-Op Diagnosis: ESRD Post-Op Diagnosis: ESRD I identified the patient and participated in the time-out.: Yes Procedure Operation Date: 08/24/24 09:30 Actual Procedures p Insertion of Perm Catheter, Left Internal Jugular Approach, Ultrasound Localization of Left Internal Jugular Vein, Fluoroscopy for Positioning, Moderate Sedation [id number](Left) - Poli Combs MD Surgeon Poli Combs MD Supervisor Partial Denture Department Layne Nicholas MD Estimated Blood Loss 15 Findings Consistent with Post-Op Diagnosis Anesthesia Type RN Sedation Complications none Disposition Accompanied Patient To Recovery: No Disposition: Recovery Room
--- NOTE | 2024-08-24 10:23 | Post Anesthesia Assessment ---
Date of Service August 24, 2024 Post Sedation Assessment Vital Signs Temp Pulse Pulse Resp BP Pulse Ox O2 Del Method 08/24/24 10:18 72 18 133/80 100 Oxymask 08/24/24 10:13 71 18 137/76 100 Oxymask 08/24/24 10:08 72 18 138/77 100 Oxymask 08/24/24 10:03 71 18 142/80 H 100 Oxymask 08/24/24 09:58 72 20 141/77 H 100 Oxymask 08/24/24 09:53 72 20 143/78 H 100 Oxymask 08/24/24 09:48 74 16 149/82 H 100 Oxymask 08/24/24 09:43 75 16 162/92 H 100 Oxymask 08/24/24 09:38 74 16 166/91 H 100 Oxymask 08/24/24 09:25 75 18 169/92 H 100 Oxymask 08/24/24 08:41 37.1 C 74 20 162/89 H 99 Room Air 08/24/24 08:16 36.6 C 71 163/79 H 98 Room Air 08/24/24 07:00 72 08/24/24 03:30 36.8 C 71 19 146/76 H 95 Room Air 08/23/24 22:50 37.2 C 74 18 151/74 H 99 Room Air 08/23/24 21:59 73 08/23/24 19:17 36.5 C 67 18 142/79 H 99 Room Air 08/23/24 14:59 36.6 C 65 18 126/69 97 Room Air 08/23/24 14:00 67 08/23/24 11:25 36.7 C 70 18 145/79 H 99 Room Air O2 Flow Rate 08/24/24 10:18 4 08/24/24 10:13 4 08/24/24 10:08 4 08/24/24 10:03 4 08/24/24 09:58 4 08/24/24 09:53 4 08/24/24 09:48 4 08/24/24 09:43 4 08/24/24 09:38 4 08/24/24 09:25 4 08/24/24 08:41 08/24/24 08:16 08/24/24 07:00 08/24/24 03:30 08/23/24 22:50 08/23/24 21:59 08/23/24 19:17 08/23/24 14:59 08/23/24 14:00 08/23/24 11:25 Recovery Score Activity: Moves 4 extremities Respiration: Deep Breath/Cough Circulation: +/-20% PreAnes Value Consciousness: Fully Awake Oxygen Saturation: > 92% On Room Air Post Anesthesia Score: 10 Discharge Sedation Level of Care: Fast Track Phase II Post Sedation Plan On clinical assessment, the patient appears to have tolerated the sedation without complications. Patient is recovering as anticipated. Patient will continue to be monitored by nursing and may be discharged when sedation discharge criteria are met per below protocol. Upon Completions of procedure up to 15 minutes continue every 5 minute vital signs and the P.A.R. score; then discharge to a Phase I or Fast Track to Phase II per the following guidelines: * Discharge Patient to appropriate Phase II area if PAR is 8 or greater or return to pre- procedure baseline. The post - procedure orders will be as directed. * If PAR score is less than 8 or not return to pre-procedure baseline then patient will follow Phase I monitoring till PAR is reached for Phase II. The Phase I may be done in procedure room or may call to secure a Phase I area. * If naloxone or flumazenil are used for reversal, hold in Phase I for continued monitoring from when last reversal dose was given for a minimum of 60 minutes or longer pending the nurse and/or physician discretion of patient condition before discharge to Phase II. Please call the Sedation Physician to re-evaluate and complete post-note for discharge to Phase II area. Do NOT discharge from procedure sedation or Phase 1 until post- sedation evaluation note is complete by procedure /sedation MD Sedation Discharge Instructions to be given to the patient at discharge to home.
--- NOTE | 2024-08-24 10:23 | Pre Anesthesia Assessment ---
Date of Service August 24, 2024 Pre Sedation Assessment Vital Signs Temp Pulse Pulse Resp BP Pulse Ox O2 Del Method 08/24/24 10:18 72 18 133/80 100 Oxymask 08/24/24 10:13 71 18 137/76 100 Oxymask 08/24/24 10:08 72 18 138/77 100 Oxymask 08/24/24 10:03 71 18 142/80 H 100 Oxymask 08/24/24 09:58 72 20 141/77 H 100 Oxymask 08/24/24 09:53 72 20 143/78 H 100 Oxymask 08/24/24 09:48 74 16 149/82 H 100 Oxymask 08/24/24 09:43 75 16 162/92 H 100 Oxymask 08/24/24 09:38 74 16 166/91 H 100 Oxymask 08/24/24 09:25 75 18 169/92 H 100 Oxymask 08/24/24 08:41 37.1 C 74 20 162/89 H 99 Room Air 08/24/24 08:16 36.6 C 71 163/79 H 98 Room Air 08/24/24 07:00 72 08/24/24 03:30 36.8 C 71 19 146/76 H 95 Room Air 08/23/24 22:50 37.2 C 74 18 151/74 H 99 Room Air 08/23/24 21:59 73 08/23/24 19:17 36.5 C 67 18 142/79 H 99 Room Air 08/23/24 14:59 36.6 C 65 18 126/69 97 Room Air 08/23/24 14:00 67 08/23/24 11:25 36.7 C 70 18 145/79 H 99 Room Air O2 Flow Rate 08/24/24 10:18 4 08/24/24 10:13 4 08/24/24 10:08 4 08/24/24 10:03 4 08/24/24 09:58 4 08/24/24 09:53 4 08/24/24 09:48 4 08/24/24 09:43 4 08/24/24 09:38 4 08/24/24 09:25 4 08/24/24 08:41 08/24/24 08:16 08/24/24 07:00 08/24/24 03:30 08/23/24 22:50 08/23/24 21:59 08/23/24 19:17 08/23/24 14:59 08/23/24 14:00 08/23/24 11:25 Cardiovascular RRR, no murmur, no edema Respiratory normal respiratory effort, lungs clear to auscultation Pre-Sedation Airway Assessment Smoking Status: Never smoker Hx Sleep Apnea: Yes Short, Thick Neck: No Thyromental Distance: > or= 3.5 Finger Breadths Oral Cavity: + WNL Mallampati Class: III ASA: ASA3 NPO Status Date of Last Intake of Fluids: 08/23/24 Time of Last Intake of Fluids: 23:00 Date of Last Intake of Solid Food: 08/23/24 Time of Last Intake of Solid Foods: 23:00 Procedure Planning Contraindications for Sedation: none Current Medications Reviewed: Yes Notes The planned sedation has been discussed with the patient. Informed Consent was obtained. I have identified the patient, determined the appropriateness of sedation and have assessed the patient immediately prior to the procedure. All medicine(s) and interventions are by my order.
[2024-08-24] MEDS: IRON SUCROSE 200 MG in SYRINGE 0 ML IV ONE (11:23)
[2024-08-24] MEDS: EPOETIN ALFA 20,000 UNITS/ML VIAL IV ONE ×2 (11:23→19:13)
[2024-08-24] MEDS: HEPARIN SOD (PORCINE) 5,000 UNITS/ML VIAL ONE ×2 (19:09)
[2024-08-25] MEDS: oxyCODONE HCL IR 5 MG TAB (IMMEDIATE RELEASE) PO PRN (02:34)
[2024-08-25] MEDS: LORazepam 1 MG TAB PO STA (02:56)
[2024-08-25] MEDS ORDERED: SODIUM CHLORIDE 0.9% 1,000 ML IV PRN (07:00)
--- NOTE | 2024-08-25 08:22 | Nephrology Progress Note ---
Date of Service August 25, 2024 Assessment & Plan (1) ESRD on dialysis: Plan: * Unable to access AVF for HD 08/22/24 * L IJ TCC placed by vascular surgery 08/24/24 * Pressure dressing applied 08/24/24 due to bleeding. Vascular surgery advised to hold apixaban, maintain pressure bandage and immobilize L arm until 08/26/24 * Will provide heparin free HD today and attempt 3 L UF. Orders have been placed in EMR and HD RN notified * Will plan brief HD in am to resume MWF schedule * Once surgical site is healed and tori removed, then clinical staff pharmacist can attempt to use interposition bovine AVF (2) Hyperkalemia: Plan: * Serum K 4.9 this am * Will use 2K dialysate during HD today (3) Fluid overload: Plan: * See above ESRD on dialysis (4) Paroxysmal atrial fibrillation: Plan: * Hold apixaban today as per vascular surgery orders (5) Diabetes mellitus type 1 with complications: Admission and Anticipated Discharge Date Admission Date: August 21, 2024 Subjective Mr. Snell was evaluated in his hospital room this morning. There was bleeding from the L IJ TCC and a pressure dressing was applied last evening. Mr. Snell currently denies angina, dyspnea. Review of Systems Constitutional: no fever Eyes: no worsening vision Ear, Nose, Mouth, Throat: no problem reported Respiratory: no cough and no dyspnea Cardiovascular: no chest pain Gastrointestinal: no abdominal pain, no nausea, no vomiting and no diarrhea/loose stools Genitourinary: + problem reported (anuric) Integumentary: no rash Neurologic: no problem reported Physical Exam Constitutional: no acute distress Eyes: PERRL, conjunctivae normal, anicteric sclerae ENMT: external ear and nose normal, oropharynx normal Neck: trachea midline, no thyromegaly Respiratory: Auscultation: lungs clear to auscultation bilaterally Cardiovascular: Rate/Rhythm: regular rate and regular rhythm Extremities: + AV fistula (+ thrill but limited area for cannulation and venous limb is deep) Gastrointestinal (Abdomen): normal bowel sounds, soft, nontender, no hepatosplenomegaly Neurologic: Speech / Cognition: normal speech and normal cognition Psychiatric: Affect: euthymic affect Results & Data Vital Signs (Past 12 Hours) Vital Signs Temp Pulse Pulse Pulse Resp BP Pulse Ox 08/25/24 07:48 37.9 C H 89 18 157/77 H 91 08/25/24 07:24 92 H 08/25/24 03:54 37.3 C 88 20 161/70 H 94 08/25/24 02:42 88 96 08/24/24 23:22 37.4 C 89 20 175/81 H 99 08/24/24 22:03 86 08/24/24 21:55 37.0 C 82 20 189/83 H 98 O2 Del Method 08/25/24 07:48 Room Air 08/25/24 07:24 08/25/24 03:54 Room Air 08/25/24 02:42 Room Air 08/24/24 23:22 Room Air 08/24/24 22:03 08/24/24 21:55 Room Air Laboratory Results Laboratory Results - last 24 hr 08/24/24 08/24/24 08/24/24 09:12 17:07 20:27 POC Glucose 121 H 100 H 181 H 08/25/24 08:01 POC Glucose 149 H Diagnostic Findings Laboratory Results - last 24 hr 08/24/24 08/24/24 08/25/24 17:07 20:27 08:01 Sodium Potassium Chloride Carbon Dioxide Anion Gap BUN Creatinine Est Cr Clr Drug Dosing eGFR BUN/Creatinine Ratio Glucose POC Glucose 100 H 181 H 149 H Calcium 08/25/24 09:15 Sodium 133 L Potassium 4.9 Chloride 93 L Carbon Dioxide 28 Anion Gap 12 H BUN 69 H D Creatinine 9.08 H* D Est Cr Clr Drug Dosing 12.2 eGFR 6.83 BUN/Creatinine Ratio 7.6 L Glucose 193 H POC Glucose Calcium 8.7 PG Care Time/CCT Total # of Minutes Spent Total Time Spent with Patient: Total time spent is greater than 50% in coordination of care (as documented) at patient's floor/unit and/or counseling patient: Coding Level of Care Code 86153 SUB INP/OBS CARE 3/50MIN Diagnoses ESRD on dialysis N18.6; Z99.2 Hyperkalemia E87.5 Fluid overload E87.70 Hypervolemia type: unspecified Paroxysmal atrial fibrillation I48.0 Diabetes mellitus type 1 with complications E10.8 (3) Fluid overload Hypervolemia type: unspecified Qualified Code(s): E87.70 - Fluid overload, unspecified
--- NOTE | 2024-08-25 09:14 | Communication Note ---
Date of Service: August 25, 2024 Per RN, bleeding from permcath stopped around midnight. Pt currently with pressure dressing in place over L chest wall; no active bleeding. Eliquis should remain on hold until tomorrow, barring any further bleeding. Dressing should remain in place, unchanged, until tomorrow. Pt should minimize movement of L arm, sling ordered. Pt may resume activity today, but left arm should be immobilized. Pt verbalizes understanding. Also discussed with RN.
[2024-08-25 09:58] LABS: BUN Creatinine Ratio 7.6 (10-20); Calcium 8.7 mg/dl (8.6-10.3); Creatinine Clr Calc Pharmacy 12.2 ml/min; Potassium 4.9 mmol/L (3.5-5.1)
--- NOTE | 2024-08-25 10:27 | Hospitalist Progress Note ---
Date of Service August 25, 2024 Assessment & Plan (1) Fluid overload: Plan: -2nd to unsuccessful HD due to access from AV fistula not possible 2nd to hematoma -PermCath placed 08/24 -had post op bleeding last night -Vascular to observe overnight -hold eliquis -HD as per nephrology, planned for this evening -plan to d/c in am 08/26 if no further bleeding from PermCath site. (2) Diabetes mellitus type 1 with complications: Plan: Lantus based on last hospitalization, start 20 units HS Novolog: --Goal BSG Range: Low 110 mg/dL, High 140 mg/dL --Correction Factor: 15 mg/dL/unit --Carbohydrate ratio = 5 g/unit --BSGs ACHS if eating, q6h if npo (3) ESRD on dialysis: Plan: -permacath placed -HD as per nephrology (4) Hyperkalemia: Plan: -awaiting HD (5) Paroxysmal atrial fibrillation: Plan: If no further bleeding from PermCath site, resume eliquis and discharge on 08/26. (6) Hypertension: Plan: Continue amlodipine, met Plan 43 year old male presents to the ER after failed outpatient dialysis session Admission and Anticipated Discharge Date Admission Date: August 21, 2024 Subjective Pt had bleeding from Permacath site last night. Resolved with use of compression bandage, Eliquis held. Review of Systems Review of Systems: CONST: Negative for fever, body aches and chills. HENT: Negative for neck pain/stiffness, headache, congestion, sore throat, swelling. EYES: Negative for discharge/pain or vision changes. RESP: Negative for cough/hemoptysis and shortness of breath. CV: Negative chest pain, difficulty breathing, palpitations. ABD: Negative pain, nausea, vomiting. : Negative increase frequency, dysuria, blood in urine or stool. MUSC: Negative for muscle aches, edema. SKIN: Negative rash, lesions/sores. NEURO: Negative headache, dizziness, weakness. Physical Exam Physical Exam: GENERAL APPEARANCE NAD, activity normal for age, well developed/ well nourished, no cyanosis, pallor, or diaphoresis. EYES lids/conjunctiva normal. EARS/NOSE/THROAT Mucous membranes moist, nares normal, lips/teeth normal uvula midline without oral pharyngeal erythema, exudate or swelling TMs normal bilaterally. No lymphangitis/lymphedema. HEAD/NECK normocephalic atraumatic, no facial trauma, neck is supple. RESPIRATORY respiratory effort normal, speaks in full sentences, no tripod position, no accessory muscle use. Lungs clear to auscultation without rhonchi, wheezes, rales CARDIAC Regular rate and rhythm, no edema. ABDOMINAL Soft, ND/NT. No evidence of fluid wave. No pulsatile masses on exam, rebound tenderness, Multani sign or pain over Mcburney's point. MUSCLES/EXTREMITIES No abnormal range of motion, no swelling. SKIN Warm, pink and dry. No rashes, dermatoses, petechiae or lesions. Left forearm 5x6cm hematoma with tori inplace NEUROLOGICAL Speech is clear and appropriate. Normal level of consciousness. Gait and coordination are normal. 5/5 strength in all extremities. PSYCH Normal mood and affect. Judgement/competence is appropriate Results & Data Results & Data Vital Signs (Past 12 Hours) Vital Signs Temp Pulse Pulse Pulse Resp BP Pulse Ox 08/25/24 07:48 37.9 C H 89 18 157/77 H 91 08/25/24 07:24 92 H 08/25/24 03:54 37.3 C 88 20 161/70 H 94 08/25/24 02:42 88 96 08/24/24 23:22 37.4 C 89 20 175/81 H 99 O2 Del Method 08/25/24 07:48 Room Air 08/25/24 07:24 08/25/24 03:54 Room Air 08/25/24 02:42 Room Air 08/24/24 23:22 Room Air PG Care Time/CCT Total # of Minutes Spent Total Time Spent with Patient: Total time spent is greater than 50% in coordination of care (as documented) at patient's floor/unit and/or counseling patient: Coding Level of Care Code 71223 SUB INP/OBS CARE 2/35MIN Diagnoses Fluid overload E87.70 Hypervolemia type: unspecified Diabetes mellitus type 1 with complications E10.8 ESRD on dialysis N18.6; Z99.2 Hyperkalemia E87.5 Paroxysmal atrial fibrillation I48.0 Hypertension I10 Hypertension type: unspecified (1) Fluid overload Hypervolemia type: unspecified Qualified Code(s): E87.70 - Fluid overload, unspecified (6) Hypertension Hypertension type: unspecified Qualified Code(s): I10 - Essential (primary) hypertension
[2024-08-25] MEDS: LOPERAMIDE HCL 2 MG CAP PO PRN (11:54)
--- NOTE | 2024-08-25 13:11 | Pharmacy Report ---
Pharmacy Glycemic Short Note 2 - Date of Service August 25, 2024 - Glycemic Short BSG Results (Last 24 hours): 08/24/24 08/24/24 08/25/24 17:07 20:27 08:01 Glucose POC Glucose 100 H 181 H 149 H 08/25/24 08/25/24 09:15 11:51 Glucose 193 H POC Glucose 198 H OUTPATIENT ANTIDIABETIC REGIMEN: * Levemir 30-40 units SQ at HS * Insulin aspart-inject 3 times a day as per sliding scale up to 20 units/dose HbA1C: 9.1% on 06/23/24 ASSESSMENT: 08/25 * Blood sugars acceptable, no changes in insulin regimen at this time * POD1 perm cath placement, DC tomorrow if no further bleeding. 08/22 * 43 year old male admitted yesterday due to need for PermCath replacement. Patient has end stage renal disease and is on HD Saturday, Saturday, and Saturday. Pharmacy has been consulted for glycemic management while he is admitted. * BSG was 304mg/dL last evening. Lantus 20 units SQ x 1 was ordered and patient was started on a bolus insulin regimen with fairly tight parameters. * Fasting BSG was 81mg/dL this morning. Bolus insulin parameters were loosened and a Lantus scale (0,10, or 20 units depending on BSG) was added for HS. PLAN FOR INPATIENT GLYCEMIC CONTROL: * Hold outpatient diabetes medications * Basal insulin * Lantus scale at HS (0,10,or 20 units depending on BSG) * Bolus insulin * NovoLog per scale ACHS or Q6hrs while NPO * Goal Range: Low 110 mg/dL - High 140 mg/dL * Correction Factor: 30 mg/dL/unit * Nutritional / Prandial insulin per carb ratio of 1 unit per 10 grams CHO consumed
[2024-08-26 06:42] LABS: Hematocrit (blood only) 25.2 % (42.0-52.0); Hemoglobin 8.3 g/dl (14.0-18.0); Mean Corpuscular Hemoglobin 30.7 pg (25.0-34.0); Mean Corpuscular Hgb Conc 32.9 g/dL (32.0-36.0); Mean Corpuscular Volume 93.3 fL (80.0-100.0); Mean Platelet Volume 10.4 fL (9.4-12.4); Platelet Count 126 K/uL (130-400); RDW Coefficient of Variation 14.1 % (11.5-14.5); RDW Standard Deviation 48.4 fL (36.4-46.3); White Blood Count 5.56 K/ul (4.8-10.8)
[2024-08-26 07:12] LABS: BUN Creatinine Ratio 7.1 (10-20); Calcium 8.9 mg/dl (8.6-10.3); Creatinine Clr Calc Pharmacy 15.1 ml/min; Potassium 4.4 mmol/L (3.5-5.1)
[2024-08-26 07:43] VITALS: BP 133/81; PULSE 65; RESP 18; TEMP 97.9; O2SAT 96
--- NOTE | 2024-08-26 09:07 | Nephrology Progress Note ---
Date of Service August 26, 2024 Assessment & Plan (1) ESRD on dialysis: Plan: * Unable to access AVF for HD 08/22/24 * L IJ TCC placed by vascular surgery 08/24/24 * Pressure dressing applied 08/24/24 due to bleeding. Vascular surgery advised to hold apixaban, maintain pressure bandage and immobilize L arm until 08/26/24 * Heparin free HD provided 08/25/24 * Patient expects to be discharged home this morning. Will hold HD today. 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 Snell was evaluated in his hospital room this morning. L IJ TCC has pressure dressing in place. Patient is anxious to be discharged to home Review of Systems Constitutional: no fever Eyes: no worsening vision Ear, Nose, Mouth, Throat: no problem reported Respiratory: no cough and no dyspnea Cardiovascular: no chest pain Gastrointestinal: no abdominal pain, no nausea, no vomiting and no diarrhea/loose stools Genitourinary: + problem reported (anuric) Integumentary: no rash Neurologic: no problem reported Physical Exam Constitutional: no acute distress Eyes: PERRL, conjunctivae normal, anicteric sclerae ENMT: external ear and nose normal, oropharynx normal Neck: trachea midline, no thyromegaly Respiratory: Auscultation: lungs clear to auscultation bilaterally Cardiovascular: Rate/Rhythm: regular rate and regular rhythm Extremities: + AV fistula (+ thrill but limited area for cannulation and venous limb is deep) Gastrointestinal (Abdomen): normal bowel sounds, soft, nontender, no hepatosplenomegaly Neurologic: Speech / Cognition: normal speech and normal cognition Psychiatric: Affect: euthymic affect Results & Data Vital Signs (Past 12 Hours) Vital Signs Temp Pulse Pulse Resp BP Pulse Ox O2 Del Method 08/26/24 07:42 36.6 C 65 18 133/81 96 Room Air 08/26/24 07:10 67 08/26/24 03:10 36.4 C L 70 12 151/78 H 92 Room Air 08/25/24 23:10 36.5 C 74 12 147/83 H 98 Room Air 08/25/24 22:24 74 Laboratory Results Laboratory Results - last 24 hr 08/25/24 08/25/24 08/25/24 09:15 11:51 18:26 WBC RBC Hgb Hct MCV MCH MCHC RDW Std Deviation RDW Coeff of Yuki Plt Count MPV Sodium 133 L Potassium 4.9 Chloride 93 L Carbon Dioxide 28 Anion Gap 12 H BUN 69 H D Creatinine 9.08 H* D Est Cr Clr Drug Dosing 12.2 eGFR 6.83 BUN/Creatinine Ratio 7.6 L Glucose 193 H POC Glucose 198 H 137 H Calcium 8.7 08/25/24 08/26/24 08/26/24 20:24 06:11 08:06 WBC 5.56 RBC 2.70 L Hgb 8.3 L Hct 25.2 L MCV 93.3 MCH 30.7 MCHC 32.9 RDW Std Deviation 48.4 H RDW Coeff of Yuki 14.1 Plt Count 126 L MPV 10.4 Sodium 134 L Potassium 4.4 Chloride 95 L Carbon Dioxide 28 Anion Gap 11 BUN 52 H Creatinine 7.36 H* D Est Cr Clr Drug Dosing 15.1 eGFR 8.78 BUN/Creatinine Ratio 7.1 L Glucose 122 H POC Glucose 177 H 131 H Calcium 8.9 PG Care Time/CCT Total # of Minutes Spent Total Time Spent with Patient: Total time spent is greater than 50% in coordination of care (as documented) at patient's floor/unit and/or counseling patient: Coding Level of Care Code 41550 SUB INP/OBS CARE 3/50MIN Diagnoses ESRD on dialysis N18.6; Z99.2 Hyperkalemia E87.5 Fluid overload E87.70 Hypervolemia type: unspecified Paroxysmal atrial fibrillation I48.0 Diabetes mellitus type 1 with complications E10.8 (3) Fluid overload Hypervolemia type: unspecified Qualified Code(s): E87.70 - Fluid overload, unspecified
--- NOTE | 2024-08-26 13:04 | Discharge Summary ---
Date of Service August 26, 2024 Admission HPI Per Admitting Provider Ventura Snell is a 43 year old male with ESRD on dialysis and type 1 diabetes who presents to the ER after a failed dialysis session at [facility] due to pain at his dialysis site. Has severe neuropathy and hands were jumping. He reports otherwise feeling at his baseline. Principal Diagnosis Fluid overload secondary to unsuccessful hemodialysis related to AV fistula hematoma status post new permacath placement on 08/24 Postoperative PermCath bleeding that seems to have stopped off of Eliquis Discharge Exam General: Awake, conversant Heart: S1, S2/regular rate and rhythm, no murmur rubs or gallops Lungs: Clear to auscultation bilaterally. Normal effort Abdomen: Soft/nontender/nondistended. No hepatosplenomegaly Extremities: No clubbing/cyanosis. No edema. Hematoma noted around left arm AV fistula. Behavior: Appropriate, cooperative Discharge Data Allergies Allergy/AdvReac Type Severity Reaction Status Date / Time lisinopril AdvReac Intermediate COUGH Verified 08/21/24 19:15 Consultations 08/21/24 18:39 Consult Nephrology Stat 08/21/24 18:40 ED Decision to Admit Stat 08/22/24 10:21 Consult Vascular Surgery Routine Procedures Performed Operation Date: 08/24/24 09:30 Actual Procedures p Insertion of Perm Catheter, Left Internal Jugular Approach, Ultrasound Localization of Left Internal Jugular Vein, Fluoroscopy for Positioning, Moderate Sedation [id number](Left) - Poli Combs MD Ordered Studies 08/24/24 08:38 EV cvc insrt tunnel wo prt/book binder Routine US EV guide vascular access Routine Hospital Course (1) Fluid overload: -2nd to unsuccessful HD due to access from AV fistula not possible 2nd to hematoma -PermCath placed 08/24 -had post op bleeding - Eliquis was held My plan was to resume Eliquis today and if no further bleeding, to discharge the patient tomorrow. However the patient did not want to wait for another day. He wanted to leave AGAINST MEDICAL ADVICE today. (2) Diabetes mellitus type 1 with complications: Resume prior to hospital insulin regimen (3) ESRD on dialysis: -permacath placed -HD as per nephrology (4) Hyperkalemia: Resolved after dialysis (5) Paroxysmal atrial fibrillation: Eliquis was resumed today (6) Hypertension: Continue amlodipine, met Plan Patient left AGAINST MEDICAL ADVICE as he did not want to wait for another day. Total Time Total Time Spent Total Time Spent (In Minutes): 35 Discharge Plan Discharge Items Patient Disposition: Against Medical Advice Reason For Visit: ESRD ON DIALYSIS,HYPERKALEMIA, FAILED OUTPATIENT D Condition on Discharge: Fair Activity: Resume your previous activity Non-emergency contact: Primary Care Provider Follow-up/Referrals: Maki Peterson MD [Primary Care Provider] - Pending Studies at Discharge: No Stand-Alone Forms: My [facility] Informed Trades, Smoking Cessation Medications and DC Order Prescriptions: Continued Lac-Hydrin Five 5 % lotion 1 applic topical DAILY Qty: 226 1RF (DME) lancets [OneTouch Delica Plus Lancet] 33 gauge misc See Rx Instructions .Route Qty: 400 3RF Rx Instructions: test blood sugars 4 times daily (DME) pen needle, diabetic [Comfort EZ Pen [place]] 29 gauge x 1/2" needle See Rx Instructions .ROUTE .MEDSUPPLY Qty: 400 3RF Rx Instructions: use 4 x daily sevelamer carbonate 800 mg tablet 800 mg PO TIDM 90 Days Qty: 240 1RF duloxetine 30 mg capsule,delayed release(DR/EC) 30 mg PO QAM Qty: 90 3RF Eliquis 5 mg tablet 5 mg PO BID 30 Days Qty: 180 3RF metoprolol succinate 100 mg tablet extended release 24 hr 100 mg PO BID Qty: 180 3RF ropinirole 0.5 mg tablet 0.5 mg PO BID Qty: 60 2RF pregabalin [Lyrica] 25 mg capsule 25 mg PO TID Qty: 90 1RF Patient Comments: has not started yet due to insurace will switch from gabapentin (DME) Ketostix Strip See Rx Instructions .ROUTE .MEDSUPPLY Rx Instructions: As directed (DME) Dexcom G7 Sensor Device See Rx Instructions .Route Qty: 3 5RF Rx Instructions: As directed (DME) lancets [OneTouch Delica Lancets] 33 gauge misc See Rx Instructions .ROUTE .MEDSUPPLY Qty: 400 3RF Rx Instructions: test blood suigars 4 x daily (DME) Dexcom G7 Gum Remover Misc See Rx Instructions .Route Qty: 1 0RF Rx Instructions: As directed insulin detemir U-100 100 unit/mL (3 mL) insulin pen 30 - 40 unit SQ HS Patient Comments: sugars have been running low, has only been taking 40 units HS Rx Instructions: PER PT "DEPENDS ON BSG'S". (DME) blood-glucose meter [OneTouch Verio Flex meter] [facility] [place] Instructions .ROUTE .MEDSUPPLY Qty: 1 0RF Rx Instructions: As directed (DME) OneTouch Verio test strips Strip See Rx Instructions .ROUTE .MEDSUPPLY Qty: 400 3RF Rx Instructions: Test 4 times daily (DME) [place]eled [place] [facility] [place] Rx Instructions .Route Qty: 1 0RF Rx Instructions: As directed atorvastatin [Lipitor] 80 mg tablet 80 mg PO HS levothyroxine 75 mcg tablet 75 mcg PO QAM amlodipine 10 mg tablet 10 mg PO QAM insulin aspart U-100 100 unit/mL (3 mL) insulin pen 30 unit subcut TID Rx Instructions: Inject TID as per sliding scale up to 20 units TID cinacalcet 60 mg tablet 60 mg PO HS tramadol 50 mg tablet 100 - 200 mg PO BID MDD 4 tabs PRN (Reason: pain) Rx Instructions: PER PT "TAKE ALL 200 MG ON DAYS OF DIALYSIS, USUALLY TAKE 100 MG BID ON THE OTHER DAYS". Creon 36,000-114,000- 180,000 unit capsule,delayed release(DR/EC) 2 - 3 cap PO DIRECTED Rx Instructions: 3 caps orally with meals and 2 cap with snacks; administer with meals and/or snacks Admission Data Admit Date/Time: 08/21/24 19:16 Attending Provider: Marni Hanley Admit Provider: Bruce Oconnell Primary Care Provider: Maki Peterson Other Providers: Landry Miranda; Bruce Oconnell; Poli Combs
--- NOTE | 2024-08-26 13:29 | Communication Note ---
Date of Service: August 26, 2024 No further bleeding from permcath site. Pressure dressing removed. Recommend IV team replace sterile dressing over permcath. L forearm incision C/D/I, hem atoma noted. + thrill/bruit. Pt ok for d/c from vascular standpoint. Will see in office in 2 weeks for staple removal.
== END 2024-08-26 13:00 | disposition left against medical advice (07) | DRG 314 ==
LOC: ED 16:54 → 2W 19:16 → SUATTDRO 19:16 → 2W 20:47 → 2N 08-24 08:43

== ENCOUNTER 2024-10-09 04:51 | Inpatient (IN) ==
[2024-10-09 05:15] LABS: Basophils # (auto) 0.03 K/uL (0.00-0.20); Basophils % (auto) 0.3 %; Eosinophils # (auto) 0.48 K/uL (0.00-0.50); Eosinophils % (auto) 5.3 %; Hematocrit (blood only) 32.5 % (42.0-52.0); Immature Granulocytes # (auto) 0.02 K/uL (0.01-0.20); Immature Granulocytes % (auto) 0.2 %; Lymphocytes # (auto) 1.16 K/uL (1.20-3.40); Lymphocytes % (auto) 12.8 %; Mean Corpuscular Hemoglobin 32.3 pg (25.0-34.0); Mean Corpuscular Hgb Conc 33.8 g/dL (32.0-36.0); Mean Corpuscular Volume 95.3 fL (80.0-100.0); Mean Platelet Volume 10.1 fL (9.4-12.4); Monocytes # (auto) 0.88 K/uL (0.11-0.59); Monocytes % (auto) 9.7 %; Neutrophils % (auto) 71.7 %; Platelet Count 136 K/uL (130-400); RDW Coefficient of Variation 14.8 % (11.5-14.5); RDW Standard Deviation 51.3 fL (36.4-46.3); Red Blood Count 3.41 M/uL (4.70-6.10); White Blood Count 9.07 K/ul (4.8-10.8)
--- NOTE | 2024-10-09 05:18 | Emergency Department Note ---
Impression & Plan Acute hyperkalemia, Generalized weakness, ESRD (end stage renal disease) on dialysis, Diarrhea ED Provider Note NAME: VIJAYA HAMILTON AGE: 44 SEX: Male INFORMANT: Patient ED PROVIDER(S): Pepe Bar MD CHIEF COMPLAINT: Weakness PLAN: Disposition: Admitted Outpatient prescription management: none Referral: None MEDICAL DECISION MAKING: Patient presented and workup was initiated. He noted generalized weakness with multiple falls. He also missed dialysis Saturday of this week. Patient had blood work and imaging performed. ECG performed as well stool testing ordered. Patient's ECG was concerning for widening of his QRS and peaked T waves. Laboratory testing revealed the presence of significant hyperkalemia. Patient also had elevated magnesium. Creatinine elevated consistent with end-stage renal disease. I did verify the high potassium with lab who noted no hemolysis. Patient was ordered IV calcium, IV bicarbonate, IV dextrose, and IV insulin. Oral Lokelma was also ordered. I did place a urgent consult to his clearing hand, Dr. Miranda. Discussed case and reviewed the diagnostic. He was in agreement with the treatment so far. He recommended a repeat dose of IV calcium in 1 hour. He is can immobilize the dialysis nurse for definitive treatment. Consultation was made with Dr. Landin of the [facility] service. Case discussed and diagnostics were reviewed. Patient was evaluated in the ER for further management. Care/management discussed with: manager of operations, nephrology, lab, hospitalist Level of care consideration(s): After review of the information above and other included data, I feel the patient requires escalation of care to admission Triage Nursing notes: reviewed and agree them. Vital Signs: reviewed and remarkable for hypertension Additional History obtained from: none Chronic Medical/Social Conditions affecting care: End-stage renal disease, diabetes Prior/ Outside/ External records reviewed: none Differential Diagnosis: Infection, dehydration, metabolic abnormality, hypo/hyperglycemia, electrolyte disturbance, anemia, hypoxia, cardiac sources, intracerebral event, toxicologic, neurologic, as well as other pathologies. Diagnostics, independently interpreted by me: ECG: Twelve-lead ECG reveals a normal sinus rhythm at 84 bpm. Incomplete left bundle branch block and peaked morphology of T waves. When compared to ECG of 03 Sep 2024 the QRS is widened and the T wave morphology is more pronounced. Cardiac Monitoring: Cardiac monitoring ordered by me: The patient was placed on continuous cardiac monitoring and observed. It revealed a normal sinus rhythm at 85 beats per minute without ectopy or evidence of dysrhythmia. Medical decision rules: none Imaging studies: Head CT: A noncontrast CT scan of the head was performed and was negative for tumor, fracture, intracranial hemorrhage, or other acute pathology. HPI: 44 year old Male arrives for evaluation of generalized weakness. This started over the last few days and is worsening over the last 12 hours. The patient also notes the following associated symptoms, generalized weakness in the upper and lower extremities equally, numbness in his extremities especially in the lower extremities which she states is chronic. Patient notes that he fell 4 times last night. He states he was too weak to walk. He has been dealing with diarrhea and this caused him to miss his dialysis the day before yesterday. Patient states that he had similar weakness issues last weekend and after dialysis on Saturday of this week he felt much better. Patient is unsure if he hit his head. He does not feel like he injured his neck, back, or arms/legs. Pt denies headache, fevers, chills, diaphoresis, visual changes, neck pain, chest pain, breathing difficulties, nausea, vomiting, abdominal pain, back pain, melena, hematochezia, lymphadenopathy, rash, or other complaints.. PAST MEDICAL HISTORY: See Below, end-stage renal disease, diabetes, diabetic neuropathy, paroxysmal atrial fibrillation, CHF PAST SURGICAL HISTORY: See Below, dialysis catheter, AV fistula SOCIAL HISTORY: See Below, non-smoker HOME MEDICATIONS: See Below ALLERGIES: See Below VITALS: See Below PHYSICAL EXAMINATION: GENERAL: Awake, alert, in no distress HENT: Normocephalic, atraumatic. Oropharynx unremarkable. EYES: Normal conjunctiva. Sclera non-icteric. NECK: Inspection normal. Non-tender. Supple. No nuchal rigidity. FROM. No masses. RESPIRATORY: Clear to auscultation. No wheezes. No rales. Normal respiratory effort. CARDIAC: Normal rate. Normal rhythm. No murmurs. No rubs. Extremities warm and well perfused. There is a palpable thrill over the left forearm AV fistula. GI: Soft, non-distended. No tenderness to palpation. No rebound or guarding. No masses. MUSCULOSKELETAL: Atraumatic. Chest examination reveals a normal-appearing dialysis catheter in the left upper chest. The back is symmetrical on inspection without obvious abnormality. There is no CVA tenderness to palpation. No joint edema. LOWER EXTREMITIES: Calves are equal size bilaterally and non-tender. 2-3+ edema. Chronic venous lower extremity discoloration. NEURO: Normal sensorium. Generalized weakness in the upper and lower extremities that is 3/5. Patient notes significant decrease sensation in the upper and lower extremities bilaterally. SKIN: No rash or jaundice noted. PROCEDURES: none CRITICAL CARE: I have personally spent 35 minutes of critical care time in the direct management of this patient. This includes bedside care, interpretation of diagnostic studies, and testing, discussion with consultants, patient, and family members, and other required patient management activities. These minutes are in excess of all separately billable procedures. 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) heart failure with preserved ejection fraction (Chronic) Anemia (Chronic) ESRD (end stage renal disease) on dialysis (Chronic) Dyslipidemia (Chronic) Diabetic nephropathy associated with type 1 diabetes mellitus (Chronic) Anxiety and depression (Chronic) Diabetic proliferative retinopathy (Chronic) GERD (gastroesophageal reflux disease) (Chronic) Hypertension (Chronic) Hypothyroidism (Chronic) Obesity (Chronic) 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) Medical History H/O dialysis fistulogram multiple (HFpEF) heart failure with preserved ejection fraction hx, f/u PCP currently History of hypothyroidism Hx of gastroesophageal reflux (GERD) Dyslipidemia Diabetic peripheral neuropathy associated with type 1 diabetes mellitus Diabetes mellitus type 1 IDDM Anxiety and depression History of atrial fibrillation currently on eliquis; no cardiology currently, plans to see in near futured, managed by PCP Essential hypertension Chronic venous insufficiency hx venous stasis ulcers "currently healed, has followed up with wound care in the past" Anemia due to chronic kidney disease ESRD (end stage renal disease) requiring hemodialysis. MWF at [facility]; f/u dr. 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) hx Surgical History S/P dialysis catheter insertion 2019; later removed Hx of right cataract extraction History of esophagogastroduodenoscopy (EGD) H/O detached retina repair S/P arteriovenous (AV) fistula creation (2019) left side Family History Mother Diabetes Coronary heart disease Hypertension Father Coronary heart disease Hypertension Brother Coronary heart disease Kidney disease Uncle Colorectal cancer Grandmother Diabetes Aunt Diabetes Unknown Dyslipidemia Grandfather (Maternal) Diabetes Other Cancer No family history of adverse response to anesthesia Social History Smoking Status: Never smoker Second Hand Exposure: No; Do You Dip or Chew Tobacco: No; Hx Alcohol Use: Yes Alcohol Intake Frequency: Monthly or Less Hx Substance Use: No Preferred Language: Mongolian Communication Ability: Effective Visual Impairment: No Limitations Hearing Ability: Normal Sql Developer Dba Required: No Beliefs That Will Affect Care: None marital status: Single Current Living Situation: Alone Current Living Situation Comment: brother lives in apt below pt. 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" How many Children do You have: 0 Feels Safe at Home: Yes Diet: ideal protein and regular Dental Care, Regularly: No Physical Activity Frequency: Does not Exercise Seatbelt Use: always Sunscreen Use: No Assistive Devices: None Allergies Allergies Allergy/AdvReac Type Severity Reaction Status Date / Time lisinopril AdvReac Intermediate COUGH Verified 09/03/24 10:58 Home Meds Home Medications Medication Instructions Recorded Confirmed acetone (urine) test (Ketostix 01/29/23 08/27/24 strips) insulin detemir U-100 100 unit/mL 30 - 60 unit subcut HS 03/20/23 09/03/24 (3 mL) subcutaneous pen amlodipine 10 mg tablet 10 mg PO QAM 08/06/24 09/03/24 atorvastatin 80 mg tablet (Lipitor) 80 mg PO HS 08/06/24 09/03/24 cinacalcet 60 mg tablet 60 mg PO HS 08/06/24 09/03/24 insulin aspart U-100 100 unit/mL 0 - 20 unit subcut TID 08/06/24 09/03/24 (3 mL) subcutaneous pen levothyroxine 75 mcg tablet 75 mcg PO QAM 08/06/24 09/03/24 sevelamer carbonate 800 mg tablet See Rx Instructions .Route .COMPLEX 09/03/24 09/03/24 Previous Rx's Medication Instructions Recorded OneTouch Delica Lancets 33 gauge #400 ea 10/16/19 (lancets) lancets 33 gauge (OneTouch Delica #400 ea 01/28/23 Plus Lancet) blood-glucose,commercial singer,cont #1 ea 03/20/23 (Dexcom G7 Carbonating Stone Cleaner) blood sugar diagnostic (OneTouch #400 ea 05/21/23 Verio test strips) blood-glucose meter (OneTouch #1 ea 05/21/23 Verio Flex Meter) pen needle, diabetic 29 gauge x #400 ea 07/12/23 1/2" (Comfort EZ Pen Austin) blood-glucose sensor (Dexcom G7 #3 ea 08/27/23 Sensor device) duloxetine 30 mg capsule,delayed 30 mg PO QAM #90 caps 03/13/24 release apixaban 5 mg tablet (Eliquis) 5 mg PO BID 30 days #180 tabs 03/27/24 metoprolol succinate 100 mg 100 mg PO BID #180 tabs 05/12/24 tablet,extended release 24 hr ammonium lactate 5 % lotion 1 applic topical DAILY #226 grams 07/02/24 (Lac-Hydrin Five) Wheeled Walker #1 ea 07/03/24 pregabalin 25 mg capsule (Lyrica) 25 mg PO TID #90 caps 08/24/24 walker (Ultra-Light Rollator misc) #1 ea 09/15/24 [id number] See Rx Instructions .Route 09/16/24 36,000-114,000-180,000 unit .COMPLEX #240 caps capsule,delay rel (Creon) ropinirole 0.5 mg tablet 0.5 mg PO BID #60 tabs 09/29/24 Results & Data (ED) Vital Signs Vital Signs - 24 hr 10/09/24 04:58 10/09/24 05:07 10/09/24 05:13 Temperature 37.0 C Temperature Source Oral Pulse Rate 91 H 85 83 Pulse Rate [Right Finger] Pulse Rhythm Regular Regular Pulse Strength Normal Respiratory Rate 17 19 Respiratory Effort / Characteristics Non-Labored Spontaneous Respiratory Depth Normal Respiratory Pattern Regular Blood Pressure 172/102 H Blood Pressure [Right Arm] Blood Pressure Mean 125 Blood Pressure Mean [Right Arm] Blood Pressure Position Lying Blood Pressure Position [Right Arm] Pulse Oximetry 100 98 Oxygen Delivery Method Room Air Room Air Sepsis Recent Fever Within 48 Hours No Sepsis New/Unexplained Change in Mental Status No Sepsis Action Taken by Nursing No Action Required 10/09/24 05:13 10/09/24 05:13 Temperature Temperature Source Pulse Rate Pulse Rate [Right Finger] 83 Pulse Rhythm Pulse Strength Respiratory Rate 17 Respiratory Effort / Characteristics Non-Labored Spontaneous Respiratory Depth Normal Respiratory Pattern Regular Blood Pressure Blood Pressure [Right Arm] 172/102 H Blood Pressure Mean Blood Pressure Mean [Right Arm] 125 Blood Pressure Position Blood Pressure Position [Right Arm] Lying Pulse Oximetry 99 Oxygen Delivery Method Room Air Room Air Sepsis Recent Fever Within 48 Hours Sepsis New/Unexplained Change in Mental Status Sepsis Action Taken by Nursing Laboratory Data 10/09/24 05:03 10/09/24 05:03 Lab Results 10/09/24 10/09/24 Range/Units 04:56 05:03 WBC 9.07 (4.8-10.8) K/ul RBC 3.41 L (4.70-6.10) M/uL Hgb 11.0 L (14.0-18.0) g/dl Hct 32.5 L (42.0-52.0) % MCV 95.3 (80.0-100.0) fL MCH 32.3 (25.0-34.0) pg MCHC 33.8 (32.0-36.0) g/dL RDW Std Deviation 51.3 H (36.4-46.3) fL RDW Coeff of Yuki 14.8 H (11.5-14.5) % Plt Count 136 (130-400) K/uL MPV 10.1 (9.4-12.4) fL Immature Gran % (Auto) 0.2 % Neut % (Auto) 71.7 % Lymph % (Auto) 12.8 % Mcnairy % (Auto) 9.7 % Eos % (Auto) 5.3 % Baso % (Auto) 0.3 % Neut # (Auto) 6.50 (1.40-6.50) K/uL Lymph # (Auto) 1.16 L (1.20-3.40) K/uL Mcnairy # (Auto) 0.88 H (0.11-0.59) K/uL Eos # (Auto) 0.48 (0.00-0.50) K/uL Baso # (Auto) 0.03 (0.00-0.20) K/uL Immature Gran # (Auto) 0.02 (0.01-0.20) K/uL Sodium 133 L (136-145) mmol/L Potassium 7.9 H* (3.5-5.1) mmol/L Chloride 89 L (98-107) mmol/L Carbon Dioxide 26 (21-32) mmol/L Anion Gap 18 H (3-11) BUN 121 H (6-23) mg/dl Creatinine 11.84 H* (0.6-1.4) mg/dl Est Cr Clr Drug Dosing 9.4 ml/min eGFR 4.93 BUN/Creatinine Ratio 10.2 (10-20) Glucose 119 H (70-99(Fasting)) mg/dl POC Glucose 126 H (70-99) mg/dl Calcium 9.5 (8.6-10.3) mg/dl Magnesium 2.6 H (1.7-2.4) mg/dl Total Bilirubin 0.7 (0.2-1.0) mg/dl AST 22 (13-39) U/L ALT 26 (7-52) U/L Alkaline Phosphatase 229 H (34-104) U/L Troponin I High Sens 14.0 (0-20) pg/ml Total Protein 8.5 H (6.0-8.3) gm/dl Albumin 4.1 (3.4-5.0) gm/dl Globulin 4.4 H (2.5-4.0) gm/dl Albumin/Globulin Ratio 0.9 (0.9-2) TSH 5.259 H (0.300-4.500) uIu/ml Administered Medications Discontinued Medications Calcium Gluconate () 1,000 mg in 60 mls @ 240 mls/hr IV NOW STA Stop: 10/09/24 05:53 Last Admin: 10/09/24 06:10 Dose: 240 mls/hr Documented By: PAG Insulin Human Regular (Novolin-R Insulin Per Unit Charge) 10 units IV NOW STA Stop: 10/09/24 05:40 Last Admin: 10/09/24 06:10 Dose: 10 units Documented By: STACY Co-signed By: IGLESIA Sodium Bicarbonate (Sodium Bicarb 8.4% Inj 50 Meq/50 Ml Syr) 50 meq IV NOW STA Stop: 10/09/24 05:40 Last Admin: 10/09/24 06:10 Dose: 50 meq Documented By: STACY Sodium Zirconium Cyclosilicate (Sodium Zirconium Cyclosilicate 10 Gm Packet) 10 gm PO NOW STA Stop: 10/09/24 05:42 Last Admin: 10/09/24 06:09 Dose: 10 gm Documented By: STACY Discharge Plan Visit Data Chief Complaint: Weakness Stated Complaint: Weakness, Falls, Diarrhea ED Provider: Pepe Bar Discharge Problem: Acute hyperkalemia, Generalized weakness, ESRD (end stage renal disease) on dialysis, Diarrhea Patient Disposition: Admitted As Inpatient Condition: Serious Forms Stand Alone Forms: My [facility] Caregivers Prescriptions Prescriptions: No Action Lac-Hydrin Five 5 % lotion 1 applic topical DAILY Qty: 226 1RF (DME) lancets [OneTouch Delica Plus Lancet] [facility] See Rx Instructions .Route Qty: 400 3RF Rx Instructions: test blood sugars 4 times daily (DME) pen needle, diabetic [Comfort EZ Pen Austin] 29 gauge x 1/2" needle See Rx Instructions .ROUTE .MEDSUPPLY Qty: 400 3RF Rx Instructions: use 4 x daily duloxetine 30 mg capsule,delayed release(DR/EC) 30 mg PO QAM Qty: 90 3RF Eliquis 5 mg tablet 5 mg PO BID 30 Days Qty: 180 3RF metoprolol succinate 100 mg tablet extended release 24 hr 100 mg PO BID Qty: 180 3RF pregabalin [Lyrica] 25 mg capsule 25 mg PO TID Qty: 90 1RF Patient Comments: has not started yet due to insurace will switch from gabapentin (DME) Ultra-Light Rollator [facility] See Rx Instructions .Route Qty: 1 0RF Rx Instructions: As directed Creon 36,000-114,000- 180,000 unit capsule,delayed release(DR/EC) See Rx Instructions .ROUTE .COMPLEX MDD 8 caps Qty: 240 11RF Dose Instruction: TAKE 2 CAPSULES BY MOUTH WITH MEALS AND 1 CAPSULE WITH SNACKS. TAKE WITH MEALS AND/OR SNACKS Rx Instructions: TAKE 2 CAPSULES BY MOUTH WITH MEALS AND 1 CAPSULE WITH SNACKS. ropinirole 0.5 mg tablet 0.5 mg PO BID Qty: 60 2RF (DME) Ketostix Strip See Rx Instructions .ROUTE .MEDSUPPLY Rx Instructions: As directed (DME) Dexcom G7 Sensor Device See Rx Instructions .Route Qty: 3 5RF Rx Instructions: As directed (DME) lancets [OneTouch Delica Lancets] 33 gauge misc See Rx Instructions .ROUTE .MEDSUPPLY Qty: 400 3RF Rx Instructions: test blood suigars 4 x daily (DME) Dexcom G7 Carbonating Stone Cleaner Misc See Rx Instructions .Route Qty: 1 0RF Rx Instructions: As directed insulin detemir U-100 100 unit/mL (3 mL) insulin pen 30 - 60 unit SQ HS Patient Comments: sugars have been running low, has only been taking 40 units HS Rx Instructions: PER PT "DEPENDS ON BSG'S". (DME) blood-glucose meter [OneTouch Verio Flex meter] [facility] See Rx Instructions .ROUTE .MEDSUPPLY Qty: 1 0RF Rx Instructions: As directed (DME) OneTouch Verio test strips Strip See Rx Instructions .ROUTE .MEDSUPPLY Qty: 400 3RF Rx Instructions: Test 4 times daily (DME) Wheeled Walker Misc See Rx Instructions .Route Qty: 1 0RF Rx Instructions: As directed sevelamer carbonate 800 mg tablet See Rx Instructions .ROUTE .COMPLEX Rx Instructions: Take 2400mg w/ meals and 1600mg w/ snacks atorvastatin [Lipitor] 80 mg tablet 80 mg PO HS levothyroxine 75 mcg tablet 75 mcg PO QAM amlodipine 10 mg tablet 10 mg PO QAM insulin aspart U-100 100 unit/mL (3 mL) insulin pen 0 - 20 unit subcut TID Rx Instructions: Inject TID as per sliding scale up to 20 units TID cinacalcet 60 mg tablet 60 mg PO HS Referrals Referrals: Maki Peterson MD [Primary Care Provider] -
[2024-10-09 05:36] LABS: Albumin Globulin Ratio 0.9 (0.9-2); Albumin Level 4.1 gm/dl (3.4-5.0); BUN Creatinine Ratio 10.2 (10-20); Bilirubin,Total 0.7 mg/dl (0.2-1.0); Calcium 9.5 mg/dl (8.6-10.3); Creatinine Clr Calc Pharmacy 9.4 ml/min; Globulin 4.4 gm/dl (2.5-4.0); Magnesium 2.6 mg/dl (1.7-2.4); Potassium 7.9 mmol/L (3.5-5.1); Total Protein 8.5 gm/dl (6.0-8.3)
[2024-10-09 05:52] LABS: Thyroid Stimulating Hormone 5.259 uIu/ml (0.300-4.500)
[2024-10-09] MEDS ORDERED: SODIUM CHLORIDE 0.9% 1,000 ML IV PRN (06:07)
[2024-10-09] MEDS: SODIUM ZIRCONIUM CYCLOSILICATE 10 GM PACKET PO STA (06:09)
[2024-10-09] MEDS: NovoLIN-R INSULIN PER UNIT CHARGE IV STA (06:10)
[2024-10-09] MEDS: CALCIUM GLUCONATE 1,000 MG/60 ML BAG IV STA (06:10)
[2024-10-09] MEDS: SODIUM BICARB 8.4% INJ 50 MEQ/50 ML SYR IV STA (06:10)
[2024-10-09] MEDS: DEXTROSE 50% 50 ML SYRINGE IV ONE (06:15)
[2024-10-09] MEDS: SODIUM CHLORIDE 0.9% 1,000 ML IV SCH (06:15)
--- NOTE | 2024-10-09 06:15 | History & Physical Report ---
Date of Service October 09, 2024 Assessment & Plan (1) Hyperkalemia: (2) Diarrhea: (3) Generalized weakness: (4) ESRD on dialysis: Plan This patient is a 44-year-old male with history of ESRD on HD, HTN, DM 1, neuropathy, RLS, paroxysmal A-fib on Eliquis, HLD, anemia of chronic kidney disease, hypothyroidism, anxiety disorder who presents to the ED with generalized weakness and falls at home x 4. He missed dialysis on 10/07 due to a diarrheal illness. He did not sustain any significant injuries. In the ED, he was found to have a potassium of 7.9 with peaked T waves and slightly widened QRS on ECG. His creatinine was quite elevated at 11.8. He was treated with calcium gluconate, insulin and dextrose, a dose of Lokelma, and IV fluids. Nephrology was contacted by the ED physician who will bring in dialysis nurses for urgent dialysis. He was hypertensive, afebrile, and no other significant abnormalities found. He will be admitted for generalized weakness, falls, and severe hyperkalemia with need for urgent dialysis. #Hyperkalemia/ESRD on HD-creatinine up to 11 and K7.9 on arrival, secondary to missed dialysis appointment. -Admit to PCU for arrhythmia monitoring on telemetry, needs urgent dialysis- nephrology consulted and aware - Follow repeat BMP at 7 AM-1 and half hours after treatment for hyperkalemia - Renal/low potassium diet - Give albuterol nebulizer now - Follow BMP serially and treat with further medications as needed - Continue home Cinacalcet, sevelamer #Generalized weakness/falls-likely secondary to electrolyte abnormalities and worsening renal failure. No injury sustained. CT head and chest x-ray not officially read by radiology yet - Follow-up on CT head and CXR official read when available - Treating hyperkalemia and renal failure with urgent dialysis #Diarrhea-could be infectious etiology but he reports a chronic issue with diarrhea and takes Creon. - Check stool PCR and C. difficile - Follow volume status and electrolytes -continue Creon #DM1 with neuropathy-generally uncontrolled with most recent HgbA1c elevated at 9.1%. - Continue Lantus 20 units at bedtime, NovoLog sliding scale and adjust as needed - Check HgbA1c in the morning #Anemia of CKD-Hgb higher than usual at 11 but is also likely dehydrated and hemoconcentrated - Follow CBC #HTN/HLD/PAF on Eliquis-BPs elevated on arrival secondary to missed dialysis. In sinus rhythm - Continue home metoprolol succinate 100 Mg p.o. twice daily, amlodipine, and Eliquis - Continue statin #Hypothyroidism-TSH here mildly elevated at 5, free T4 pending at time of admission - Continue home levothyroxine and follow as an outpatient #Anxiety disorder/neuropathy/RLS-no acute issues - Continue home duloxetine, Lyrica, ropinirole DVT prophylaxis-Eliquis Disposition-admit to PCU History of Present Illness Chief Complaint: Weakness, falls Primary Care Provider: Maki Peterson MD This patient is a 44-year-old male with history of ESRD on HD, HTN, DM 1, neuropathy, RLS, paroxysmal A-fib on Eliquis, HLD, anemia of chronic kidney disease, hypothyroidism, anxiety disorder who presents to the ED with generalized weakness and falls at home x 4. He missed dialysis on 10/07 due to a diarrheal illness. He did not sustain any significant injuries. In the ED, he was found to have a potassium of 7.9 with peaked T waves and slightly widened QRS on ECG. His creatinine was quite elevated at 11.8. He was treated with calcium gluconate, insulin and dextrose, a dose of Lokelma, and IV fluids. Nephrology was contacted by the ED physician who will bring in dialysis nurses for urgent dialysis. He was hypertensive, afebrile, and no other significant abnormalities found. He will be admitted for generalized weakness, falls, and severe hyperkalemia with need for urgent dialysis. Allergies Allergy/AdvReac Type Severity Reaction Status Date / Time lisinopril AdvReac Intermediate COUGH Verified 09/03/24 10:58 Home Medications Medication Instructions Recorded Confirmed Type OneTouch Delica Lancets 33 gauge #400 ea 10/16/19 08/27/24 Rx (lancets) lancets 33 gauge (OneTouch Delica #400 ea 01/28/23 08/27/24 Rx Plus Lancet) acetone (urine) test (Ketostix 01/29/23 08/27/24 History strips) blood-glucose,web producer,cont #1 ea 03/20/23 08/27/24 Rx (Dexcom G7 Associate Professor [employer]) insulin detemir U-100 100 unit/mL 10 unit subcut QAM 03/20/23 09/03/24 History (3 mL) subcutaneous pen blood sugar diagnostic (OneTouch #400 ea 05/21/23 08/27/24 Rx Verio test strips) blood-glucose meter (OneTouch #1 ea 05/21/23 08/27/24 Rx Verio Flex Meter) pen needle, diabetic 29 gauge x #400 ea 07/12/23 08/27/24 Rx 1/2" (Comfort EZ Pen [place]) blood-glucose sensor (Ai2 UK G7 #3 ea 08/27/23 08/27/24 Rx Sensor device) duloxetine 30 mg capsule,delayed 30 mg PO QAM #90 caps 03/13/24 09/03/24 Rx release apixaban 5 mg tablet (Eliquis) 5 mg PO BID 30 days #180 tabs 03/27/24 09/03/24 Rx metoprolol succinate 100 mg 100 mg PO BID #180 tabs 05/12/24 09/03/24 Rx tablet,extended release 24 hr ammonium lactate 5 % lotion 1 applic topical DAILY #226 grams 07/02/24 09/03/24 Rx (Lac-Hydrin Five) Micky Walker #1 ea 07/03/24 08/27/24 Rx amlodipine 10 mg tablet 10 mg PO QAM 08/06/24 09/03/24 History atorvastatin 80 mg tablet (Lipitor) 80 mg PO HS 08/06/24 09/03/24 History cinacalcet 60 mg tablet 60 mg PO HS 08/06/24 09/03/24 History insulin aspart U-100 100 unit/mL 0 - 20 unit subcut TID 08/06/24 09/03/24 History (3 mL) subcutaneous pen levothyroxine 75 mcg tablet 75 mcg PO QAM 08/06/24 09/03/24 History pregabalin 25 mg capsule (Lyrica) 25 mg PO TID #90 caps 08/24/24 09/03/24 Rx sevelamer carbonate 800 mg tablet See Rx Instructions .Route .COMPLEX 09/03/24 09/03/24 History walker (Ultra-Light Rollator misc) #1 ea 09/15/24 Rx [id number] See Rx Instructions .Route 09/16/24 Rx 36,000-114,000-180,000 unit .COMPLEX #240 caps capsule,delay rel (Creon) ropinirole 0.5 mg tablet 0.5 mg PO BID #60 tabs 09/29/24 Rx Past Med/Surg History Problem List (Updated 10/09/24 @ 06:17 by Pepe Bar MD) Acute hyperkalemia (Acute) Diarrhea (Acute) Generalized weakness (Acute) Hyperkalemia ESRD on dialysis (Acute) Fluid overload (Acute) Venous aneurysm Exocrine pancreatic insufficiency (Chronic) Suspected sleep apnea (Chronic) Paroxysmal atrial fibrillation (Chronic) 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) heart failure with preserved ejection fraction (Chronic) Anemia (Chronic) ESRD (end stage renal disease) on dialysis (Chronic) Dyslipidemia (Chronic) Diabetic nephropathy associated with type 1 diabetes mellitus (Chronic) Anxiety and depression (Chronic) Diabetic proliferative retinopathy (Chronic) GERD (gastroesophageal reflux disease) (Chronic) Hypertension (Chronic) Hypothyroidism (Chronic) Obesity (Chronic) 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) Medical History H/O dialysis fistulogram multiple (HFpEF) heart failure with preserved ejection fraction hx, f/u PCP currently History of hypothyroidism Hx of gastroesophageal reflux (GERD) Dyslipidemia Diabetic peripheral neuropathy associated with type 1 diabetes mellitus Diabetes mellitus type 1 IDDM Anxiety and depression History of atrial fibrillation currently on eliquis; no cardiology currently, plans to see in near futured, managed by PCP Essential hypertension Chronic venous insufficiency hx venous stasis ulcers "currently healed, has followed up with wound care in the past" Anemia due to chronic kidney disease ESRD (end stage renal disease) requiring hemodialysis. MWF at [facility]; f/u dr. liriano, [place] [facility] 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) hx Surgical History S/P dialysis catheter insertion 2019; later removed Hx of right cataract extraction History of esophagogastroduodenoscopy (EGD) H/O detached retina repair S/P arteriovenous (AV) fistula creation (2019) left side Family History Mother Diabetes Coronary heart disease Hypertension Father Coronary heart disease Hypertension Brother Coronary heart disease Kidney disease Uncle Colorectal cancer Grandmother Diabetes Aunt Diabetes Unknown Dyslipidemia Grandfather (Maternal) Diabetes Other Cancer No family history of adverse response to anesthesia Social History Smoking Status: Never smoker Second Hand Exposure: No; Do You Dip or Chew Tobacco: No; Hx Alcohol Use: Yes Alcohol Intake Frequency: Monthly or Less Hx Substance Use: No Preferred Language: [place] Citizen Communication Ability: Effective Visual Impairment: No Limitations Hearing Ability: Normal Supervisor Grounds Required: No Beliefs That Will Affect Care: None marital status: Single Current Living Situation: Alone Current Living Situation Comment: brother lives in apt below pt. 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" How many Children do You have: 0 Feels Safe at Home: Yes Diet: ideal protein and regular Dental Care, Regularly: No Physical Activity Frequency: Does not Exercise Seatbelt Use: always Sunscreen Use: No Assistive Devices: None Review of Systems Review of Systems: All systems reviewed & are unremarkable except as noted in HPI & below Physical Exam Constitutional: WD/WN, vitals as above Respiratory: normal respiratory effort, lungs clear to auscultation Cardiovascular: Rate/Rhythm: regular rate and regular rhythm Extremities: + edema (woody edema legs 2+ bilat) Gastrointestinal (Abdomen): normal bowel sounds, soft, nontender, no hepatosplenomegaly Psychiatric: A+Ox3, euthymic affect Results & Data Results & Data Vital Signs (Past 12 Hours) Vital Signs Temp Pulse Pulse Resp BP BP Pulse Ox 10/09/24 05:13 83 17 172/102 H 99 10/09/24 05:13 10/09/24 05:13 37.0 C 83 19 172/102 H 98 10/09/24 05:07 85 17 100 10/09/24 04:58 91 H O2 Del Method 10/09/24 05:13 Room Air 10/09/24 05:13 Room Air 10/09/24 05:13 Room Air 10/09/24 05:07 Room Air 10/09/24 04:58 Laboratory Results CBC, BMP, magnesium, LFTs, troponin, TSH reviewed Diagnostic Findings CT head images personally reviewed by me and no acute abnormality seen however radiology report still pending ECG Additional Comments: ECG on 10/09/2024 at 5:10 AM with normal sinus rhythm, rate 84, incomplete LBBB with peaked T waves Code Status & VTE Plan Code Status Full code VTE Prophylaxis Plan VTE Prophylaxis will be ordered: Yes PG Care Time/CCT Total # of Minutes Spent Total Time Spent with Patient: Total time spent is greater than 50% in coordination of care (as documented) at patient's floor/unit and/or counseling patient: Coding Level of Care Code 92344 INT INP/OBS CARE 3/75MIN Diagnoses Hyperkalemia E87.5 Diarrhea R19.7 Generalized weakness R53.1 ESRD on dialysis N18.6; Z99.2
[2024-10-09 06:30] LABS: T4 Free Thyroxine 0.69 ng/dl (0.61-1.60)
[2024-10-09] MEDS ORDERED: CALCIUM GLUCONATE 1,000 MG/60 ML BAG IV STA (06:31)
[2024-10-09] MEDS: ALBUTEROL 0.083% NEBU SOLN 3 ML VIAL NEB STA (06:35)
--- NOTE | 2024-10-09 06:44 | XRay Report ---
EXAM: XR chest 1V portable CLINICAL HISTORY: weakness TECHNIQUE: Radiograph of chest was acquired. COMPARISON: CR, 09/03/2024 19:30:29 IST FINDINGS: The lungs are clear and well-expanded with no pulmonary infiltrate or pleural effusion. The cardiomediastinal silhouette is within normal limits. No acute osseous abnormality. Central venous catheter seen via left side approach. IMPRESSION: 1. No acute cardiopulmonary disease. 2. Central venous catheter seen via left side approach.. 3. No interval changes. Electronically signed by Abdiel Ayoub 10-09-2024 06:44 AM
--- NOTE | 2024-10-09 06:50 | CT Scan Report ---
EXAM: CT head/brain wo con CLINICAL HISTORY: fall TECHNIQUE: Multiple axial images are obtained from the skull base to the vertex without contrast. CT scan was performed according to ALARA (as low as reasonable achievable). COMPARISON: 09/03/2024 08:29:35 SPOOL FIXER. FINDINGS: The brain shows normal morphology, attenuation, and volume for age. No evidence of space occupying lesion, hemorrhage, edema, mass effect, midline shift, extra axial collection, or hydrocephalus is noted. Ventricles, sulci, and basal cisterns are symmetric and normal in size and configuration. The polk-white matter differentiation is preserved. Visualized paranasal sinuses and mastoid air cells are well aerated. Orbital contents are within normal limits. Bony structures are intact. Mild right occipital scalp hematoma seen. IMPRESSION: 1. No evidence of acute intracranial abnormality is demonstrated 2. Mild right occipital scalp hematoma seen. No other new interval abnormality since prior study. Electronically signed by Abdiel Ayoub 10-09-2024 06:49 AM
[2024-10-09] MEDS: CALCIUM GLUCONATE 1,000 MG/60 ML BAG IV ONE (07:26)
--- NOTE | 2024-10-09 09:09 | Nephrology Consultation ---
Date of Consultation October 09, 2024 Assessment & Plan (1) Acute hyperkalemia: * Medical management of hyperkalemia reviewed w/ EMD at 0530 hrs * Advised that HD will be available 0800 hrs * HD orders placed in EMR * HD RN business consultant contacted and POC reviewed * Recommend HD diet * Protect L arm AVF * Nephrocap one daily * Monitor daily BMP (2) ESRD on dialysis: * Dialyzes at [facility] MWF (4.25 hr, 2K 2.5Ca HCO3 38 Na 138, Elisio 17H dialyzer, Heparin load 3000/hourly 1100, EDW 102.5 kg 15g 1" needles) (3) Diarrhea: * h/o exocrine pancreatic insufficiency. Continue creon * Recommend consultation w/ gastroenterology History of Present Illness Reason for Consultation: ESKD-D Attending Physician: Neymar Cartwright MD History of Present Illness Mr. Snell is a 44 year old white male who is seen at the request of [facility] hospitalist service to provide inpatient HD. Information for the HPI is obtained from direct patient interview and review of the EMR. HPI is summarized as follows: Mr. Snell has ESKD due to IDDM. He was started on IHD 03/10 and dialyzes via L forearm AVF. He currently dialyzes at [facility] MWF (4.25 hr, 2K 2.5Ca HCO3 38 Na 138, Elisio 17H dialyzer, Heparin load 3000/hourly 1100, EDW 102.5 kg 15g 1" needles). His medical history is significant for IDDM (Dx at 11 yoa, + retinopathy & neuropathy), obesity (BMI 44), hypothyroidism, anemia, depression/anxiety, exocrine pancreatic insufficiency (creon), atrial fibrillation (apixaban). Mr. Snell had revision of his AVF 08/18/[address] Combs using an interposition bovine graft. Mr. Snell presented to [facility] EMD this morning with complaints of diarrhea and weakness. He did not attend dial ysis Saturday due to diarrhea. EMD evaluation revealed that patient was hemodynamically stable, K 7.9, BUN 121, Cr 11.8, ECG w/ peaked T-waves in the lateral leads. POC was discussed w/ EMD physician. Medical management of hyperkalemia including Ca gluconate, insulin, dextrose, and bicarbonate IV was reviewed. Dialysis orders were placed in EMR and on HD RN was notified. Allergies Allergy/AdvReac Type Severity Reaction Status Date / Time lisinopril AdvReac Intermediate COUGH Verified 09/03/24 10:58 Home Medications Medication Instructions Recorded Confirmed Type OneTouch Delica Lancets 33 gauge #400 ea 10/16/19 08/27/24 Rx (lancets) lancets 33 gauge (OneTouch Delica #400 ea 01/28/23 08/27/24 Rx Plus Lancet) acetone (urine) test (Ketostix 01/29/23 08/27/24 History strips) blood-glucose,social media editor,cont #1 ea 03/20/23 08/27/24 Rx (Dexcom G7 Tire Wrapper) insulin detemir U-100 100 unit/mL 10 unit subcut UD 03/20/23 10/09/24 History (3 mL) subcutaneous pen blood sugar diagnostic (OneTouch #400 ea 05/21/23 08/27/24 Rx Verio test strips) blood-glucose meter (OneTouch #1 ea 05/21/23 08/27/24 Rx Verio Flex Meter) pen needle, diabetic 29 gauge x #400 ea 07/12/23 08/27/24 Rx 1/2" (Comfort EZ Pen [place]) blood-glucose sensor (Dexcom G7 #3 ea 08/27/23 08/27/24 Rx Sensor device) duloxetine 30 mg capsule,delayed 30 mg PO QAM #90 caps 03/13/24 10/09/24 Rx release apixaban 5 mg tablet (Eliquis) 5 mg PO BID 30 days #180 tabs 03/27/24 10/09/24 Rx metoprolol succinate 100 mg 100 mg PO BID #180 tabs 05/12/24 10/09/24 Rx tablet,extended release 24 hr Wheeled Walker #1 ea 07/03/24 08/27/24 Rx amlodipine 10 mg tablet 10 mg PO QAM 08/06/24 10/09/24 History atorvastatin 80 mg tablet (Lipitor) 80 mg PO HS 08/06/24 10/09/24 History cinacalcet 60 mg tablet 60 mg PO HS 08/06/24 10/09/24 History insulin aspart U-100 100 unit/mL 0 - 20 unit subcut TID 08/06/24 10/09/24 History (3 mL) subcutaneous pen levothyroxine 75 mcg tablet 75 mcg PO QAM 08/06/24 10/09/24 History pregabalin 25 mg capsule (Lyrica) 25 mg PO TID #90 caps 08/24/24 10/09/24 Rx sevelamer carbonate 800 mg tablet 800 mg PO UD 09/03/24 10/09/24 History walker (Ultra-Light Rollator misc) #1 ea 09/15/24 Rx [id number] See Rx Instructions .Route 09/16/24 10/09/24 Rx 36,000-114,000-180,000 unit .COMPLEX #240 caps capsule,delay rel (Creon) ropinirole 0.5 mg tablet 0.5 mg PO BID #60 tabs 09/29/24 10/09/24 Rx ammonium lactate 5 % lotion 1 applic topical UD 10/09/24 10/09/24 History (Lac-Hydrin Five) Patient History Medical History H/O dialysis fistulogram multiple (HFpEF) heart failure with preserved ejection fraction hx, f/u PCP currently History of hypothyroidism Hx of gastroesophageal reflux (GERD) Dyslipidemia Diabetic peripheral neuropathy associated with type 1 diabetes mellitus Diabetes mellitus type 1 IDDM Anxiety and depression History of atrial fibrillation currently on eliquis; no cardiology currently, plans to see in near futured, managed by PCP Essential hypertension Chronic venous insufficiency hx venous stasis ulcers "currently healed, has followed up with wound care in the past" Anemia due to chronic kidney disease ESRD (end stage renal disease) requiring hemodialysis. MWF at [facility]; f/u dr. 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) hx Surgical History S/P dialysis catheter insertion 2019; later removed Hx of right cataract extraction History of esophagogastroduodenoscopy (EGD) H/O detached retina repair S/P arteriovenous (AV) fistula creation (2019) left side Family History Mother Diabetes Coronary heart disease Hypertension Father Coronary heart disease Hypertension Brother Coronary heart disease Kidney disease Uncle Colorectal cancer Grandmother Diabetes Aunt Diabetes Unknown Dyslipidemia Grandfather (Maternal) Diabetes Other Cancer No family history of adverse response to anesthesia Social History Smoking Status: Never smoker Second Hand Exposure: No; Do You Dip or Chew Tobacco: No; Hx Alcohol Use: Yes Alcohol Intake Frequency: Monthly or Less Hx Substance Use: No Preferred Language: Croatian Communication Ability: Effective Visual Impairment: No Limitations Hearing Ability: Normal Technology Adoption Manager Required: No Beliefs That Will Affect Care: None marital status: Single Current Living Situation: Alone Current Living Situation Comment: brother lives in apt below pt. 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" How many Children do You have: 0 Feels Safe at Home: Yes Diet: ideal protein and regular Dental Care, Regularly: No Physical Activity Frequency: Does not Exercise Seatbelt Use: always Sunscreen Use: No Assistive Devices: None Review of Systems Constitutional: no fever Eyes: no worsening vision Ear, Nose, Mouth, Throat: no problem reported Respiratory: no cough and no dyspnea Cardiovascular: no chest pain Gastrointestinal: + diarrhea/loose stools; no abdominal pa in Genitourinary: + problem reported (anuric) Integumentary: no rash Neurologic: no problem reported Physical Exam Constitutional: no acute distress Eyes: PERRL, conjunctivae normal, anicteric sclerae ENMT: external ear and nose normal, oropharynx normal Neck: trachea midline, no thyromegaly (L IJ TCC w/ clean dressing) Respiratory: Auscultation: lungs clear to auscultation bilaterally Cardiovascular: Rate/Rhythm: regular rate and regular rhythm Extremities: + AV fistula (+ thrill but limited area for cannulation and venous limb is deep) Gastrointestinal (Abdomen): normal bowel sounds, soft, nontender, no hepatosplenomegaly Neurologic: Speech / Cognition: normal speech and normal cognition Psychiatric: Affect: euthymic affect Results & Data Vital Signs (Past 12 Hours) Vital Signs Temp Pulse Pulse Resp BP BP Pulse Ox 10/09/24 07:30 84 18 144/89 H 98 10/09/24 07:00 79 15 143/84 H 94 10/09/24 06:46 83 15 158/85 H 100 10/09/24 05:13 83 17 172/102 H 99 10/09/24 05:13 10/09/24 05:13 37.0 C 83 19 172/102 H 98 10/09/24 05:07 85 17 100 10/09/24 04:58 91 H O2 Del Method 10/09/24 07:30 Room Air 10/09/24 07:00 Room Air 10/09/24 06:46 Nebulizer 10/09/24 05:13 Room Air 10/09/24 05:13 Room Air 10/09/24 05:13 Room Air 10/09/24 05:07 Room Air 10/09/24 04:58 Laboratory Results Laboratory Results WBC 9.07 K/ul (4.8-10.8) 10/09/24 05:03 RBC 3.41 M/uL (4.70-6.10) L 10/09/24 05:03 Hgb 11.0 g/dl (14.0-18.0) L 10/09/24 05:03 Hct 32.5 % (42.0-52.0) L 10/09/24 05:03 MCV 95.3 fL (80.0-100.0) 10/09/24 05:03 MCH 32.3 pg (25.0-34.0) 10/09/24 05:03 MCHC 33.8 g/dL (32.0-36.0) 10/09/24 05:03 RDW Std Deviation 51.3 fL (36.4-46.3) H 10/09/24 05:03 RDW Coeff of Yuki 14.8 % (11.5-14.5) H 10/09/24 05:03 Plt Count 136 K/uL (130-400) 10/09/24 05:03 MPV 10.1 fL (9.4-12.4) 10/09/24 05:03 Immature Gran % (Auto) 0.2 % 10/09/24 05:03 Neut % (Auto) 71.7 % 10/09/24 05:03 Lymph % (Auto) 12.8 % 10/09/24 05:03 [place] % (Auto) 9.7 % 10/09/24 05:03 Eos % (Auto) 5.3 % 10/09/24 05:03 Baso % (Auto) 0.3 % 10/09/24 05:03 Neut # (Auto) 6.50 K/uL (1.40-6.50) 10/09/24 05:03 Lymph # (Auto) 1.16 K/uL (1.20-3.40) L 10/09/24 05:03 [place] # (Auto) 0.88 K/uL (0.11-0.59) H 10/09/24 05:03 Eos # (Auto) 0.48 K/uL (0.00-0.50) 10/09/24 05:03 Baso # (Auto) 0.03 K/uL (0.00-0.20) 10/09/24 05:03 Immature Gran # (Auto) 0.02 K/uL (0.01-0.20) 10/09/24 05:03 Sodium 133 mmol/L (136-145) L 10/09/24 05:03 Potassium 7.9 mmol/L (3.5-5.1) H* 10/09/24 05:03 Chloride 89 mmol/L (98-107) L 10/09/24 05:03 Carbon Dioxide 26 mmol/L (21-32) 10/09/24 05:03 Anion Gap 18 (3-11) H 10/09/24 05:03 BUN 121 mg/dl (6-23) H 10/09/24 05:03 Creatinine 11.84 mg/dl (0.6-1.4) H* 10/09/24 05:03 Est Cr Clr Drug Dosing 9.4 ml/min 10/09/24 05:03 eGFR 4.93 10/09/24 05:03 BUN/Creatinine Ratio 10.2 (10-20) 10/09/24 05:03 Glucose 119 mg/dl (70-99(Fasting)) H 10/09/24 05:03 POC Glucose 126 mg/dl (70-99) H 10/09/24 04:56 Calcium 9.5 mg/dl (8.6-10.3) 10/09/24 05:03 Magnesium 2.6 mg/dl (1.7-2.4) H 10/09/24 05:03 Total Bilirubin 0.7 mg/dl (0.2-1.0) 10/09/24 05:03 AST 22 U/L (13-39) 10/09/24 05:03 ALT 26 U/L (7-52) 10/09/24 05:03 Alkaline Phosphatase 229 U/L (34-104) H 10/09/24 05:03 Troponin I High Sens 14.0 pg/ml (0-20) 10/09/24 05:03 Total Protein 8.5 gm/dl (6.0-8.3) H 10/09/24 05:03 Albumin 4.1 gm/dl (3.4-5.0) 10/09/24 05:03 Globulin 4.4 gm/dl (2.5-4.0) H 10/09/24 05:03 Albumin/Globulin Ratio 0.9 (0.9-2) 10/09/24 05:03 TSH 5.259 uIu/ml (0.300-4.500) H 10/09/24 05:03 Free T4 0.69 ng/dl (0.61-1.60) 10/09/24 05:03 Impressions Chest X-Ray 10/09/24 05:01 EXAM: XR chest 1V portable CLINICAL HISTORY: weakness TECHNIQUE: Radiograph of chest was acquired. COMPARISON: CR, 09/03/2024 19:30:29 IST FINDINGS: The lungs are clear and well-expanded with no pulmonary infiltrate or pleural effusion. The cardiomediastinal silhouette is within normal limits. No acute osseous abnormality. Central venous catheter seen via left side approach. IMPRESSION: 1. No acute cardiopulmonary disease. 2. Central venous catheter seen via left side approach.. 3. No interval changes. Electronically signed by Abdiel Ayoub 10-09-2024 06:[address] 10/09/24 05:07 EXAM: CT head/brain wo con CLINICAL HISTORY: fall TECHNIQUE: Multiple axial images are obtained from the skull base to the vertex without contrast. CT scan was performed according to ALARA (as low as reasonable achievable). COMPARISON: 09/03/2024 08:29:35 DENTAL TECHNOLOGY ADVISOR. FINDINGS: The brain shows normal morphology, attenuation, and volume for age. No evidence of space occupying lesion, hemorrhage, edema, mass effect, midline shift, extra axial collection, or hydrocephalus is noted. Ventricles, sulci, and basal cisterns are symmetric and normal in size and configuration. The polk-white matter differentiation is preserved. Visualized paranasal sinuses and mastoid air cells are well aerated. Orbital contents are within normal limits. Bony structures are intact. Mild right occipital scalp hematoma seen. IMPRESSION: 1. No evidence of acute intracranial abnormality is demonstrated 2. Mild right occipital scalp hematoma seen. No other new interval abnormality since prior study. Electronically signed by Abdiel Ayoub 10-09-2024 06:49 AM PG Care Time/CCT Total # of Minutes Spent Total Time Spent with Patient: Total time spent is greater than 50% in coordination of care (as documented) at patient's floor/unit and/or counseling patient: Coding Level of Care Code 11261 IN/OBS CONSULT LVL 5,80M Diagnoses Acute hyperkalemia E87.5 ESRD on dialysis N18.6; Z99.2 Diarrhea R19.7
[2024-10-09 09:19] LABS: C. diff 027-NAP1-BI NEGATIVE; Cdiff Toxin B Gene (2yr or >) Negative Cdiff Gene (Neg)
[2024-10-09 09:51] LABS: Adenovirus F 40/41 PCR Not Detected (NotDetected); Astrovirus PCR Not Detected (NotDetected); Campylobacter PCR Not Detected (NotDetected); Cryptosporidium PCR Not Detected (NotDetected); Cyclospora cayetanensis PCR Not Detected (NotDetected); Entamoeba histolytica PCR Not Detected (NotDetected); Enteroaggregative E.coli(EAEC) Not Detected (NotDetected); Enteropathogenic E.coli (EPEC) Not Detected (NotDetected); Enterotoxigenic E.coli (ETEC) Not Detected (NotDetected); Giardia lamblia PCR Not Detected (NotDetected); Norovirus GI/GII PCR Not Detected (NotDetected); Plesiomonas shigelloides PCR Not Detected (NotDetected); Rotavirus A PCR Not Detected (NotDetected); Salmonella PCR Not Detected (NotDetected); Sapovirus PCR Not Detected (NotDetected); Shiga-like Toxin E.coli (STEC) Not Detected (NotDetected); Shigella/Enteroinvasive E.coli Not Detected (NotDetected); Vibrio cholerae PCR Not Detected (NotDetected); Vibrio species PCR Not Detected (NotDetected); Yersinia enterocolitica PCR Not Detected (NotDetected)
[2024-10-09 10:06] LABS: BUN Creatinine Ratio 10.4 (10-20); Calcium 9.4 mg/dl (8.6-10.3); Creatinine Clr Calc Pharmacy 9.3 ml/min; Potassium 7.2 mmol/L (3.5-5.1)
[2024-10-09] MEDS ORDERED: ACETAMINOPHEN 325 MG TAB PO PRN (10:09)
[2024-10-09] MEDS ORDERED: GLUCOSE 40% GEL 15 GM TUBE PO PRN (10:09)
[2024-10-09] MEDS ORDERED: DEXTROSE 50% 50 ML SYRINGE IV PRN (10:09)
[2024-10-09] MEDS ORDERED: GLUCOSE 10 TAB/TUBE PO PRN (10:09)
[2024-10-09] MEDS ORDERED: LOPERAMIDE HCL 2 MG CAP PO STA (10:09)
[2024-10-09] MEDS ORDERED: GLUCAGON FOR INJ 1 MG VIAL SQ PRN (10:09)
[2024-10-09] MEDS ORDERED: ONDANSETRON INJ 2 MG/ML 2 ML VIAL IV PRN (10:09)
[2024-10-09] MEDS ORDERED: SEVELAMER CARBONATE 800 MG TAB PO PRN (10:42)
[2024-10-09] MEDS ORDERED: PANCREAZE (LIPASE 16,800U) CAP PO PRN (10:47)
[2024-10-09] MEDS: HEPARIN SOD (PORCINE) 1000 UNIT/ML IV ONE (10:59)
[2024-10-09] MEDS: HEPARIN SOD (PORCINE) 1000 UNIT/ML IV SCH (11:00)
--- NOTE | 2024-10-09 11:03 | Dialysis Progress Note ---
Date of Service October 09, 2024 Assessment & Plan (1) Acute hyperkalemia: Plan: * HD being provided using IJ TCC. Catheter is running A-->A at Qb 300 cc/min. Patient is on 2K 2Ca dialysate. No complications. No change to current HD Rx (2) ESRD on dialysis: Plan: * Dialyzes at [facility] MWF (4.25 hr, 2K 2.5Ca HCO3 38 Na 138, Elisio 17H dialyzer, Heparin load 3000/hourly 1100, EDW 102.5 kg 15g 1" needles) (3) Diarrhea: Plan: * h/o exocrine pancreatic insufficiency. Continue creon * Recommend consultation w/ gastroenterology Admission and Anticipated Discharge Date Admission Date: October 09, 2024 Subjective Mr. Snell was evaluated while on HD this am. He reports diarrhea but denies abdominal pain. Review of Systems Constitutional: no fever Eyes: no worsening vision Ear, Nose, Mouth, Throat: no problem reported Respiratory: no cough and no dyspnea Cardiovascular: no chest pain Gastrointestinal: + diarrhea/loose stools; no abdominal pa in Genitourinary: + problem reported (anuric) Integumentary: no rash Neurologic: no problem reported Physical Exam Constitutional: no acute distress Eyes: PERRL, conjunctivae normal, anicteric sclerae ENMT: external ear and nose normal, oropharynx normal Neck: trachea midline, no thyromegaly (L IJ TCC w/ clean dressing) Respiratory: Auscultation: lungs clear to auscultation bilaterally Cardiovascular: Rate/Rhythm: regular rate and regular rhythm Extremities: + AV fistula (+ thrill but limited area for cannulation and venous limb is deep) Gastrointestinal (Abdomen): normal bowel sounds, soft, nontender, no hepatosplenomegaly Neurologic: Speech / Cognition: normal speech and normal cognition Psychiatric: Affect: euthymic affect Results & Data Vital Signs (Past 12 Hours) Vital Signs Temp Pulse Pulse Resp BP BP Pulse Ox 10/09/24 09:30 77 10/09/24 07:30 84 18 144/89 H 98 10/09/24 07:00 79 15 143/84 H 94 10/09/24 06:46 83 15 158/85 H 100 10/09/24 05:13 83 17 172/102 H 99 10/09/24 05:13 10/09/24 05:13 37.0 C 83 19 172/102 H 98 10/09/24 05:07 85 17 100 10/09/24 04:58 91 H O2 Del Method 10/09/24 09:30 10/09/24 07:30 Room Air 10/09/24 07:00 Room Air 10/09/24 06:46 Nebulizer 10/09/24 05:13 Room Air 10/09/24 05:13 Room Air 10/09/24 05:13 Room Air 10/09/24 05:07 Room Air 10/09/24 04:58 MNPG Procedure Codes (Charges) Renal/Urologic Renal/Urologic: 90579 Hemodialysis, One Evaluation Coding Level of Care Code None Diagnoses Acute hyperkalemia E87.5 ESRD on dialysis N18.6; Z99.2 Diarrhea R19.7 CPT Codes Renal/Urologic - Renal/Urologic: 19982 Hemodialysis, One Evaluation ([id number])
--- NOTE | 2024-10-09 11:16 | Hospitalist Progress Note ---
Date of Service October 09, 2024 Assessment & Plan (1) Hyperkalemia: Plan: Treated in the ED with intravenous calcium, bicarbonate, dextrose, and insulin. He also received oral Lokelma. Serial labs ordered. Hemodialysis has been restarted. (2) Diarrhea: Plan: Chronic. Metamucil may add bulk and decrease frequency of loose stools. Will check stool BioFire and C. difficile assay (3) Generalized weakness: Plan: Supportive care. (4) ESRD on dialysis: Plan: Nephrology consultation and recommendations appreciated. Hemodialysis has been restarted. Serial labs (5) Hypertension: Plan: Currently stable. Continue amlodipine and metoprolol (6) Hypothyroidism: Plan: Currently stable. Continue levothyroxine replacement therapy Plan This patient is a 44-year-old male with history of ESRD on HD, HTN, DM 1, neuropathy, RLS, paroxysmal A-fib on Eliquis, HLD, anemia of chronic kidney disease, hypothyroidism, anxiety disorder who presents to the ED with generalized weakness and falls at home x 4. He missed dialysis on 10/07 due to a diarrheal illness. He did not sustain any significant injuries. In the ED, he was found to have a potassium of 7.9 with peaked T waves and slightly widened QRS on ECG. His creatinine was quite elevated at 11.8. He was treated with calcium gluconate, insulin and dextrose, a dose of Lokelma, and IV fluids. Nephrology was contacted by the ED physician who will bring in dialysis nurses for urgent dialysis. He was hypertensive, afebrile, and no other significant abnormalities found. Anticipate eventual discharge to home in 2 to 3 days. Admission and Anticipated Discharge Date Admission Date: October 09, 2024 Subjective Alert and oriented. The patient was seen while in hemodialysis. Nephrology consultation and recommendations appreciated. Serial labs ordered. IV fluids have been discontinued. He has chronic diarrhea and Metamucil has been added on a scheduled basis. Will check stool BioFire and C. difficile assay. Potassium 7.9 on admission with peaked T waves noted on EKG. BUN 121 and creatinine 11.8. He says he only missed 1 hemodialysis session however. Serial labs ordered. Review of Systems 2 Review of Systems: Constitutionalno fever or chills ENTno blurred vision, no double vision, no epistaxis, no sore throat Respiratoryno cough, no wheezing, no shortness of breath Cardiacno palpitations, no chest pain, no syncope Jacob nausea, vomiting, diarrhea, melena, hematochezia GUno urinary retention, no urinary incontinence, no dysuria, no hematuria Musculoskeletalno joint pain, no muscle tenderness Skinno bruising, no rashes, no pruritus Neurono isolated weakness, no paresthesia, no weakness Psychno depression, no anxiety Physical Exam 2 Physical Exam: General-alert and oriented x3, no fever, no chills HEENT-head atraumatic and normocephalic, pupils equal and reactive to light, extraocular muscles intact Neck-no lymphadenopathy or thyromegaly, trachea midline Chest-clear to auscultation. No rales, wheezing or rhonchi Cardiac-regular rate and rhythm, normal S1 and S2 Abdomen-normal bowel sounds, no hepatosplenomegaly Extremities-no cyanosis, clubbing, or edema Neuro-cranial nerves II through XII intact, motor and sensory function within normal limits, strength symmetrical, no focal deficits Psych-normal affect, normal mood Results & Data Results & Data Vital Signs (Past 12 Hours) Vital Signs Temp Pulse Pulse Pulse Resp BP BP 10/09/24 09:30 77 153/82 H 10/09/24 09:30 77 10/09/24 09:19 80 149/82 H 10/09/24 09:17 36.8 C 80 10/09/24 07:30 84 18 144/89 H 10/09/24 07:00 79 15 143/84 H 10/09/24 06:46 83 15 158/85 H 10/09/24 05:13 83 17 172/102 H 10/09/24 05:13 10/09/24 05:13 37.0 C 83 19 172/102 H 10/09/24 05:07 85 17 10/09/24 04:58 91 H Pulse Ox O2 Del Method 10/09/24 09:30 10/09/24 09:30 10/09/24 09:19 10/09/24 09:17 10/09/24 07:30 98 Room Air 10/09/24 07:00 94 Room Air 10/09/24 06:46 100 Nebulizer 10/09/24 05:13 99 Room Air 10/09/24 05:13 Room Air 10/09/24 05:13 98 Room Air 10/09/24 05:07 100 Room Air 10/09/24 04:58 Laboratory Results 10/09/24 05:03 10/09/24 09:14 PG Care Time/CCT Total # of Minutes Spent Total Time Spent with Patient: Total time spent is greater than 50% in coordination of care (as documented) at patient's floor/unit and/or counseling patient: Coding Level of Care Code 59616 SUB INP/OBS CARE 3/50MIN Diagnoses Hyperkalemia E87.5 Diarrhea R19.7 Generalized weakness R53.1 ESRD on dialysis N18.6; Z99.2 Hypertension I10 Hypertension type: unspecified Hypothyroidism, unspecified type E03.9 Hypothyroidism type: unspecified (5) Hypertension Hypertension type: unspecified Qualified Code(s): I10 - Essential (primary) hypertension (6) Hypothyroidism Hypothyroidism type: unspecified Qualified Code(s): E03.9 - Hypothyroidism, unspecified
[2024-10-09 12:31] LABS: INR 0.9 (0.9-1.1); Prothrombin Time 10.3 Seconds (9.0-12.0)
--- NOTE | 2024-10-09 13:26 | Electrocardiogram Report ---
Test Reason : Blood Pressure : */* mmHG Vent. Rate : 84 BPM Atrial Rate : 84 BPM P-R Int : 204 ms QRS Dur : 118 ms QT Int : 398 ms P-R-T Axes : 28 -27 60 degrees QTcB Int : 470 ms Normal sinus rhythm Incomplete left bundle block Borderline ECG When compared with ECG of 03-Sep-2024 08:43, Incomplete left bundle block is now Present Confirmed by Darshan Garcia ([id number]) on 10/09/2024 1:26:20 PM Referred By: REFERRED SELF Confirmed By: Darshan Garcia
[2024-10-09] MEDS: PREGABALIN 25 MG CAP PO SCH (14:21)
[2024-10-09] MEDS: amLODIPine BESYLATE 5 MG TAB PO SCH (14:25)
[2024-10-09] MEDS: rOPINIRole HCL 0.25 MG TABLET PO SCH (14:26)
[2024-10-09] MEDS: METOPROLOL SUCC 50MG EXT REL TAB PO SCH (14:26)
[2024-10-09] MEDS: APIXABAN 5 MG TABLET PO SCH (14:26)
[2024-10-09] MEDS: LEVOTHYROXINE SODIUM 75 MCG TABLET PO SCH (14:26)
[2024-10-09] MEDS: DULoxetine HCL 30 MG CAP PO SCH (14:29)
[2024-10-09] MEDS: PSYLLIUM HUSK 4GM PACKET PO SCH (14:29)
[2024-10-09] MEDS: LOPERAMIDE HCL 2 MG CAP PO STA (14:35)
[2024-10-09] MEDS: PANCREAZE (LIPASE 16,800U) CAP PO SCH (14:36)
[2024-10-09] MEDS: SEVELAMER CARBONATE 800 MG TAB PO SCH (14:37)
[2024-10-09] MEDS: INSULIN ASPART PER UNIT CHARGE SC SCH (14:37)
[2024-10-09] MEDS: Nursing to Pharmacy Communication SCH (15:34)
[2024-10-09] MEDS: traMADol HCL 50 MG TABLET PO PRN (20:30)
[2024-10-09] MEDS: ATORVASTATIN 40 MG TAB PO SCH (20:33)
[2024-10-09] MEDS: CINACALCET HCL 30 MG TAB PO SCH (20:41)
[2024-10-09] MEDS: LANTUS PER UNIT CHARGE SC SCH (21:11)
[2024-10-10 06:31] LABS: Basophils # (auto) 0.04 K/uL (0.00-0.20); Basophils % (auto) 0.7 %; Eosinophils # (auto) 0.51 K/uL (0.00-0.50); Eosinophils % (auto) 8.5 %; Hematocrit (blood only) 31.9 % (42.0-52.0); Hemoglobin 10.5 g/dl (14.0-18.0); Immature Granulocytes # (auto) 0.01 K/uL (0.01-0.20); Immature Granulocytes % (auto) 0.2 %; Lymphocytes # (auto) 1.35 K/uL (1.20-3.40); Lymphocytes % (auto) 22.4 %; Mean Corpuscular Hemoglobin 31.8 pg (25.0-34.0); Mean Corpuscular Hgb Conc 32.9 g/dL (32.0-36.0); Mean Corpuscular Volume 96.7 fL (80.0-100.0); Mean Platelet Volume 10.3 fL (9.4-12.4); Monocytes # (auto) 0.74 K/uL (0.11-0.59); Monocytes % (auto) 12.3 %; Neutrophils # (auto) 3.37 K/uL (1.40-6.50); Neutrophils % (auto) 55.9 %; Platelet Count 118 K/uL (130-400); RDW Coefficient of Variation 14.7 % (11.5-14.5); RDW Standard Deviation 51.8 fL (36.4-46.3); White Blood Count 6.02 K/ul (4.8-10.8)
[2024-10-10 07:08] LABS: BUN Creatinine Ratio 8.2 (10-20); Calcium 8.9 mg/dl (8.6-10.3); Creatinine Clr Calc Pharmacy 12.7 ml/min; Potassium 6.2 mmol/L (3.5-5.1)
[2024-10-10 07:36] LABS: Estimated Average Glucose 134 mg/dl; Hemoglobin A1C 6.3 % (4.5-5.6)
[2024-10-10] MEDS: NEPHROCAPS PO SCH (08:26)
--- NOTE | 2024-10-10 11:19 | Nephrology Progress Note ---
Date of Service October 10, 2024 Assessment & Plan (1) ESRD on dialysis: (2) Acute hyperkalemia: (3) Diarrhea: (4) Generalized weakness: (5) Anemia: (6) Hypertension: (7) Diabetes mellitus type 1 with complications: Plan End-stage renal disease on hemodialysis admitted to hospital on 10/09/2024 after he presented with ongoing diarrhea and generalized weakness. He missed dialysis last Saturday because of diarrhea and on presentation yesterday was noted to have critical hyperkalemia, potassium was 7.9 with EKG showing peaked T wave. He had dialysis treatment yesterday and after dialysis potassium slightly improved but this morning lab is showing hyperkalemia again. Potassium 6.2. He reports improvement in diarrhea. -- Will do 3 hours hemodialysis today with 2K bath, UF 2 L as tolerated -- fluid restriction to less than 1 L per day, low-potassium diet, left arm nephrology precaution. -- Dose medications for eGFR less than 10 --Continue on renal caps daily, Renvela 3 times daily with meals --Okay to be discharged after treatment or tomorrow if clinically stable. Admission and Anticipated Discharge Date Admission Date: October 09, 2024 Subjective Juan Jose was seen and evaluated this morning. Overall feels well. Reports improvement in diarrhea after receiving Imodium. Morning lab was notable for hyperkalemia, potassium was 6.2, other electrolyte acceptable. Blood pressure elevated. Review of Systems Review of Systems: All systems reviewed & are unremarkable except as noted in Subjective Physical Exam Constitutional: WD/WN, vitals as above no acute distress Eyes: + anicteric sclerae Neck: normal visual inspection Respiratory: no respiratory distress Auscultation: lungs clear to auscultation bilaterally Cardiovascular: Rate/Rhythm: regular rate and regular rhythm Heart Sounds: normal S1 and normal S2 Extremities: + vascular access device (Left IJ TDC); no edema Neurologic: no focal motor deficits and not confused Psychiatric: Orientation: alert and oriented x 3 Results & Data Vital Signs (Past 12 Hours) Vital Signs Temp Pulse Pulse Pulse Resp BP Pulse Ox 10/10/24 10:45 36.7 C 67 10/10/24 10:41 36.4 C L 67 18 163/86 H 98 10/10/24 07:17 36.6 C 68 18 144/74 H 99 10/10/24 02:51 36.5 C 65 17 128/76 96 10/10/24 00:48 69 O2 Del Method 10/10/24 10:45 10/10/24 10:41 Room Air 10/10/24 07:17 Room Air 10/10/24 02:51 Room Air 10/10/24 00:48 PG Care Time/CCT Total # of Minutes Spent Total Time Spent with Patient: Total time spent is greater than 50% in coordination of care (as documented) at patient's floor/unit and/or counseling patient: Coding Level of Care Code 24537 SUB INP/OBS CARE 2/35MIN Diagnoses ESRD on dialysis N18.6; Z99.2 Acute hyperkalemia E87.5 Diarrhea R19.7 Generalized weakness R53.1 Anemia N18.6; D63.1; Z99.2 Anemia type: due to chronic kidney disease Chronic kidney disease stage: on chronic dialysis Hypertension I10 Hypertension type: unspecified Diabetes mellitus type 1 with complications E10.8 (5) Anemia Anemia type: due to chronic kidney disease Chronic kidney disease stage: on chronic dialysis Qualified Code(s): N18.6 - End stage renal disease; D63.1 - Anemia in chronic kidney disease; Z99.2 - Dependence on renal dialysis (6) Hypertension Hypertension type: unspecified Qualified Code(s): I10 - Essential (primary) hypertension
--- NOTE | 2024-10-10 11:49 | Hospitalist Progress Note ---
Date of Service October 10, 2024 Assessment & Plan (1) Hyperkalemia: Plan: Treated in the ED with intravenous calcium, bicarbonate, dextrose, and insulin. He also received oral Lokelma. Serial labs ordered. Hemodialysis was restarted yesterday, October 09 and he will undergo hemodialysis again today, October 10. (2) Diarrhea: Plan: Chronic. Addition of twice daily Metamucil has helped. Stool BioFire and C. difficile toxin assay are negative for infectious etiology. Instructed to pursue GI evaluation as an outpatient (3) Generalized weakness: Plan: Supportive care. (4) ESRD on dialysis: Plan: Nephrology consultation and recommendations appreciated. Hemodialysis has been restarted. Serial labs (5) Hypertension: Plan: Currently stable. Continue amlodipine and metoprolol (6) Hypothyroidism: Plan: Currently stable. Continue levothyroxine replacement therapy Plan Hopeful discharge to home tomorrow, October 11 Admission and Anticipated Discharge Date Admission Date: October 09, 2024 Subjective Alert and oriented. Nephrology entry noted. He will undergo hemodialysis again today, October 10. Potassium has improved down to 6.2 and BUN dropped to 72 with creatinine down to 8.7. Frequency of diarrhea has slowed with addition of twice daily Metamucil. Stool BioFire and C. difficile are negative. Review of Systems 2 Review of Systems: Constitutionalno fever or chills ENTno blurred vision, no double vision, no epistaxis, no sore throat Respiratoryno cough, no wheezing, no shortness of breath Cardiacno palpitations, no chest pain, no syncope Jacob nausea, vomiting, diarrhea, melena, hematochezia GUno urinary retention, no urinary incontinence, no dysuria, no hematuria Musculoskeletalno joint pain, no muscle tenderness Skinno bruising, no rashes, no pruritus Neurono isolated weakness, no paresthesia, no weakness Psychno depression, no anxiety Physical Exam 2 Physical Exam: General-alert and oriented x3, no fever, no chills HEENT-head atraumatic and normocephalic, pupils equal and reactive to light, extraocular muscles intact Neck-no lymphadenopathy or thyromegaly, trachea midline Chest-clear to auscultation. No rales, wheezing or rhonchi Cardiac-regular rate and rhythm, normal S1 and S2 Abdomen-normal bowel sounds, no hepatosplenomegaly Extremities-no cyanosis, clubbing, or edema Neuro-cranial nerves II through XII intact, motor and sensory function within normal limits, strength symmetrical, no focal deficits Psych-normal affect, normal mood Results & Data Results & Data Vital Signs (Past 12 Hours) Vital Signs Temp Pulse Pulse Pulse Resp BP BP 10/10/24 11:00 65 161/85 H 10/10/24 10:53 66 160/90 H 10/10/24 10:45 36.7 C 67 10/10/24 10:41 36.4 C L 67 18 163/86 H 10/10/24 10:09 10/10/24 07:17 36.6 C 68 18 144/74 H 10/10/24 05:45 66 10/10/24 02:51 36.5 C 65 17 128/76 10/10/24 00:48 69 Pulse Ox Pulse Ox O2 Del Method O2 Del Method 10/10/24 11:00 10/10/24 10:53 10/10/24 10:45 10/10/24 10:41 98 Room Air 10/10/24 10:09 98 Room Air 10/10/24 07:17 99 Room Air 10/10/24 05:45 10/10/24 02:51 96 Room Air 10/10/24 00:48 Laboratory Results 10/10/24 05:57 10/10/24 05:57 PG Care Time/CCT Total # of Minutes Spent Total Time Spent with Patient: Total time spent is greater than 50% in coordination of care (as documented) at patient's floor/unit and/or counseling patient: Coding Level of Care Code 74033 SUB INP/OBS CARE 2/35MIN Diagnoses Hyperkalemia E87.5 Diarrhea R19.7 Generalized weakness R53.1 ESRD on dialysis N18.6; Z99.2 Hypertension I10 Hypertension type: unspecified Hypothyroidism, unspecified type E03.9 Hypothyroidism type: unspecified (5) Hypertension Hypertension type: unspecified Qualified Code(s): I10 - Essential (primary) hypertension (6) Hypothyroidism Hypothyroidism type: unspecified Qualified Code(s): E03.9 - Hypothyroidism, unspecified
[2024-10-11] MEDS: CARBOHYDRATES FOR HYPOGLYCEMIA PO PRN (01:00)
[2024-10-11 03:23] VITALS: TEMP 97.9
[2024-10-11] MEDS: LOPERAMIDE HCL 2 MG CAP PO STA (04:58)
[2024-10-11 07:55] VITALS: BP 118/78; RESP 18; O2SAT 99
--- NOTE | 2024-10-11 09:59 | Discharge Summary ---
Discharge Summary Date of Service October 11, 2024 Principal Dx & Hospital Course #1 = Principal Diagnosis (1) Hyperkalemia: Treated in the ED with intravenous calcium, bicarbonate, dextrose, and insulin. He also received oral Lokelma. Serial labs ordered. Hemodialysis was restarted on October 09 and he had another hemodialysis session on October 10. (2) Diarrhea: Chronic. Addition of twice daily Metamucil has helped. Stool BioFire and C. difficile toxin assay are negative for infectious etiology. Instructed to pursue GI evaluation as an outpatient (3) Generalized weakness: Supportive care. (4) ESRD on dialysis: Nephrology consultation and recommendations appreciated. Hemodialysis has been restarted. Serial labs (5) Hypertension: Currently stable. Continue amlodipine and metoprolol (6) Hypothyroidism: Currently stable. Continue levothyroxine replacement therapy Plan Home today, October 11 Admission HPI Per Admitting Provider This patient is a 44-year-old male with history of ESRD on HD, HTN, DM 1, neuropathy, RLS, paroxysmal A-fib on Eliquis, HLD, anemia of chronic kidney disease, hypothyroidism, anxiety disorder who presents to the ED with generalized weakness and falls at home x 4. He missed dialysis on 10/07 due to a diarrheal illness. He did not sustain any significant injuries. In the ED, he was found to have a potassium of 7.9 with peaked T waves and slightly widened QRS on ECG. His creatinine was quite elevated at 11.8. He was treated with calcium gluconate, insulin and dextrose, a dose of Lokelma, and IV fluids. Nephrology was contacted by the ED physician who will bring in dialysis nurses for urgent dialysis. He was hypertensive, afebrile, and no other significant abnormalities found. He will be admitted for generalized weakness, falls, and severe hyperkalemia with need for urgent dialysis. Discharge Exam General-alert and oriented x3, no fever, no chills HEENT-head atraumatic and normocephalic, pupils equal and reactive to light, extraocular muscles intact Neck-no lymphadenopathy or thyromegaly, trachea midline Chest-clear to auscultation. No rales, wheezing or rhonchi Cardiac-regular rate and rhythm, normal S1 and S2 Abdomen-normal bowel sounds, no hepatosplenomegaly Extremities-no cyanosis, clubbing, or edema Neuro-cranial nerves II through XII intact, motor and sensory function within normal limits, strength symmetrical, no focal deficits Psych-normal affect, normal mood Discharge Plan Discharge Items Patient Disposition: Home - Self-Care Reason For Visit: HYPERKALEMIA, WEAKNESS Discharge Diagnosis: Missed hemodialysis session, hyperkalemia, markedly elevated BUN and creatinine, weakness Condition on Discharge: Good Activity: Resume your previous activity Non-emergency contact: Primary Care Provider and [employer] Member Call non-emergency contact if: you have any medication questions and your symptoms worsen Follow-up/Referrals: Maki Peterson MD [Primary Care Provider] - Diet: Carb Count or DM1 and Dialysis Renal Addtl Attending Provider Instructions: Take Metamucil twice daily to help control diarrhea. Take nephro Vitamin once daily. A prescription has been sent to [facility] pharmacy in [place]. All medications remain the same. Continue dialysis schedule as before. All other medications remain the same Pending Studies at Discharge: No Stand-Alone Forms: My NoteWagon, Smoking Cessation Medications and DC Order Prescriptions: New Renal Caps 1 mg Capsule 1 cap PO QAM Qty: 30 0RF Psyllium Husk [Metamucil] 4 g PO BID Qty: 0 0RF Continued (DME) lancets [OneTouch Delica Plus Lancet] 33 gauge misc See Rx Instructions .Route Qty: 400 3RF Rx Instructions: test blood sugars 4 times daily (DME) pen needle, diabetic [Comfort EZ Pen [place]] 29 gauge x 1/2" needle See Rx Instructions .ROUTE .MEDSUPPLY Qty: 400 3RF Rx Instructions: use 4 x daily duloxetine 30 mg capsule,delayed release(DR/EC) 30 mg PO QAM Qty: 90 3RF Eliquis 5 mg tablet 5 mg PO BID 30 Days Qty: 180 3RF metoprolol succinate 100 mg tablet extended release 24 hr 100 mg PO BID Qty: 180 3RF pregabalin [Lyrica] 25 mg capsule 25 mg PO TID Qty: 90 1RF Patient Comments: has not started yet due to insurace will switch from gabapentin (DME) Ultra-Light Rollator Misc See Rx Instructions .Route Qty: 1 0RF Rx Instructions: As directed Creon 36,000-114,000- 180,000 unit capsule,delayed release(DR/EC) See Rx Instructions .ROUTE .COMPLEX MDD 8 caps Qty: 240 11RF Dose Instruction: TAKE 2 CAPSULES BY MOUTH WITH MEALS AND 1 CAPSULE WITH SNACKS. TAKE WITH MEALS AND/OR SNACKS Rx Instructions: TAKE 2 CAPSULES BY MOUTH WITH MEALS AND 1 CAPSULE WITH SNACKS. ropinirole 0.5 mg tablet 0.5 mg PO BID Qty: 60 2RF (DME) Ketostix Strip See Rx Instructions .ROUTE .MEDSUPPLY Rx Instructions: As directed (DME) Dexcom G7 Sensor Device See Rx Instructions .Route Qty: 3 5RF Rx Instructions: As directed (DME) lancets [OneTouch Delica Lancets] [facility] See Rx Instructions .ROUTE .MEDSUPPLY Qty: 400 3RF Rx Instructions: test blood suigars 4 x daily (DME) Dexcom G7 [employer] [facility] See Rx Instructions .Route Qty: 1 0RF Rx Instructions: As directed insulin detemir U-100 100 unit/mL (3 mL) insulin pen 10 unit SQ UD Patient Comments: sugars have been running low, has only been taking 40 units HS Rx Instructions: original:10 u sq qam. PER PT "DEPENDS ON BSG'S". 10/09- last filled 01/03/24 90 day supply (DME) blood-glucose meter [OneTouch Verio Flex meter] [facility] [place] See Rx Instructions .ROUTE .MEDSUPPLY Qty: 1 0RF Rx Instructions: As directed (DME) OneTouch Verio test strips Strip See Rx Instructions .ROUTE .MEDSUPPLY Qty: 400 3RF Rx Instructions: Test 4 times daily (DME) Wheeled [facility] [place] See Rx Instructions .Route Qty: 1 0RF Rx Instructions: As directed sevelamer carbonate 800 mg tablet 800 mg PO UD Rx Instructions: Take 2400mg w/ meals and 1600mg w/ snacks atorvastatin [Lipitor] 80 mg tablet 80 mg PO HS levothyroxine 75 mcg tablet 75 mcg PO QAM amlodipine 10 mg tablet 10 mg PO QAM insulin aspart U-100 100 unit/mL (3 mL) insulin pen 0 - 20 unit subcut TID Rx Instructions: Inject TID as per sliding scale up to 20 units TID cinacalcet 60 mg tablet 60 mg PO HS Lac-Hydrin Five 5 % lotion 1 applic topical UD Rx Instructions: original:1 applic topical daily. 10/09-no fill history unable to verify Discharge Orders: Discharge Order (Routine); Ordered 10/11/24 Ordered By: Neymar Kwan/Other Patient Handouts: Managing Type 1 Diabetes Admission Data Admit Date/Time: 10/09/24 06:22 Attending Provider: Lety Landin Admit Provider: Lety Landin Primary Care Provider: Maki Peterson Other Providers: Lety Landin; Landry Miranda Hospital Stay Data Consultations 10/09/24 05:56 ED Decision to Admit Stat 10/09/24 10:09 Consult Nephrology Routine Diagnostic Imagining Performed 10/09/24 05:07 CT head/brain wo con Stat Pending Results Patient Have Any Pending Studies at Discharge: No Discharge Instructions Given to Patient (Per Discharging Provider) Take Metamucil twice daily to help control diarrhea. Take nephro Vitamin once daily. A prescription has been sent to [facility] pharmacy in [place]. All medications remain the same. Continue dialysis schedule as before. All other medications remain the same Total Time Total Time Spent Total Time Spent (In Minutes): 50-minute Coding Level of Care Code 54061 INP/OBS DISCH >30 MIN Diagnoses Hyperkalemia E87.5 Diarrhea R19.7 Generalized weakness R53.1 ESRD on dialysis N18.6; Z99.2 Hypertension I10 Hypertension type: unspecified Hypothyroidism, unspecified type E03.9 Hypothyroidism type: unspecified
[2024-10-11 10:16] LABS: BUN Creatinine Ratio 9.1 (10-20); Calcium 9.5 mg/dl (8.6-10.3); Creatinine Clr Calc Pharmacy 14.4 ml/min
[2024-10-11 10:45] VITALS: PULSE 71
--- NOTE | 2024-10-11 10:45 | Nephrology Progress Note ---
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 He missed dialysis last Saturday because of diarrhea and on presentation yesterday was noted to have critical hyperkalemia, potassium was 7.9 with EKG showing peaked T wave. He had dialysis treatment yesterday and after dialysis potassium slightly improved but this morning lab is showing hyperkalemia again. Potassium 6.2. He reports improvement in diarrhea. Had extra dialysis yesterday for hyperkalemia, volume status is improved after 3 L UF. Blood pressure improved. Overall doing well, asymptomatic. -- fluid restriction to less than 1 L per day, low-potassium diet, left arm nephrology precaution. -- Dose medications for eGFR less than 10 --Continue on renal caps daily, Renvela 3 times daily with meals --Okay to be discharged if clinically stable. Admission and Anticipated Discharge Date Admission Date: October 09, 2024 Subjective Juan Jose was seen and evaluated this morning. Overall feels well. Reports improvement in diarrhea. Blood pressure improved. Had HD yesterday. Had 3 L UF, tolerated well. Will Review of Systems Review of Systems: All systems reviewed & are unremarkable except as noted in Subjective Physical Exam Constitutional: WD/WN, vitals as above no acute distress Eyes: + anicteric sclerae Neck: normal visual inspection Respiratory: no respiratory distress Auscultation: lungs clear to auscultation bilaterally Cardiovascular: Rate/Rhythm: regular rate and regular rhythm Heart Sounds: normal S1 and normal S2 Extremities: + vascular access device (Left IJ TDC); no edema Neurologic: no focal motor deficits and not confused Psychiatric: Orientation: alert and oriented x 3 Results & Data Vital Signs (Past 12 Hours) Vital Signs Temp Pulse Pulse Resp BP Pulse Ox O2 Del Method 10/11/24 09:00 67 10/11/24 09:00 Room Air 10/11/24 07:54 36.6 C 65 18 118/78 99 Room Air 10/11/24 03:22 36.6 C 71 16 143/83 H 94 Room Air 10/10/24 23:16 36.8 C 70 16 141/82 H 96 Room Air 10/10/24 23:15 71 PG Care Time/CCT Total # of Minutes Spent Total Time Spent with Patient: Total time spent is greater than 50% in coordination of care (as documented) at patient's floor/unit and/or counseling patient: Coding Level of Care Code 48562 SUB INP/OBS CARE 2/35MIN Diagnoses ESRD on dialysis N18.6; Z99.2 Acute hyperkalemia E87.5 Diarrhea R19.7 Generalized weakness R53.1 Anemia N18.6; D63.1; Z99.2 Anemia type: due to chronic kidney disease Chronic kidney disease stage: on chronic dialysis Hypertension I10 Hypertension type: unspecified Diabetes mellitus type 1 with complications E10.8 (5) Anemia Anemia type: due to chronic kidney disease Chronic kidney disease stage: on chronic dialysis Qualified Code(s): N18.6 - End stage renal disease; D63.1 - Anemia in chronic kidney disease; Z99.2 - Dependence on renal dialysis (6) Hypertension Hypertension type: unspecified Qualified Code(s): I10 - Essential (primary) hypertension
== END 2024-10-11 12:52 | disposition home or self-care (01) | DRG 682 ==
LOC: SUATTDRO → ED 04:51 → 2E 06:22

== ENCOUNTER 2024-11-26 11:38 | Inpatient (IN) ==
--- NOTE | 2024-11-26 12:07 | Emergency Department Note ---
Impression & Plan Cerebellar infarct, ESRD (end stage renal disease) on dialysis, Vertigo, Headache, Chronic hyponatremia, Anemia in chronic kidney disease, Fall ED Provider Note NAME: VIJAYA HAMILTON AGE: 44 SEX: M : 1980 ARRIVES VIA: Ambulance INFORMANT: Patient, EMS ED PROVIDER(S): Star Mendez DO CHIEF COMPLAINT: headache HPI: This is a 44-year-old male with the PMHx of ESRD on HD MWF, IDDM1, GERD, DLD and pAfib on chronic anticoagulation with Eliquis presenting to [facility] for further evaluation of Headache and vertiginous symptoms. Patient is accompanied by EMS who provide additional history. Patient and EMS report that he has had a headache over the last few days. He states he also has vertiginous symptoms. Patient states she has had trouble walking. He states movement severely exacerbates his symptoms. His symptoms largely preceding positional. Patient states that he is on blood thinners and he fell late on Saturday night. Patient reports he did strike his head but did not lose consciousness. He believes this was his posterior head. Patient denies any neck or back pain. He states he has been compliant with hemodialysis. He was last in hemodialysis on Saturday. Patient states he intermittently gets vertiginous symptoms like this. Patient states that normally needs he needs dialysis. He states this is usually in the setting of when he misses dialysis but has not missed any sessions. They deny fever or chills. No cough or congestion. Denies chest pain or palpitations. No shortness of breath. They deny abdominal pain, nausea and vomiting. No urinary complaints. No recent changes in bowel movements. Patient denies recent changes in medications or OTC supplements. Patient offers no other complaints, today. ADDITIONAL HISTORY OBTAINED: Per HPI Chronic Medical/Social Conditions Affecting Care: Per HPI PAST MEDICAL HISTORY: See Below PAST SURGICAL HISTORY: See Below FAMILY HISTORY: See Below SOCIAL HISTORY: See Below HOME MEDICATIONS: See Below ALLERGIES: See Below VITALS: See Below PHYSICAL EXAMINATION: Primary Survey Airway: Intact Breathing: Normal, breath sounds equal bilaterally Circulation: Skin warm, distal pulses 2+, capillary refill less than 2 seconds Disability Pupils: Equal and reactive to light, 4mm, brisk GCS: 15, E = 4, V=5, M= 6 Motor Function: Moves all extremities. Sensory: No deficits Secondary Survey GEN: Well developed and well-nourished HENT: Head: No external signs of trauma. Mouth/Throat: Midface Normal. NO malocclusion. Eyes: EOMI. Pupils are 4 mm, round and reactive bilaterally. L beating horizontal nystagmus noted. Ears: TMs are intact bilaterally. No hematomas. Nose: No nasal septal hematoma. No gross deformity. Neck: No midline C-spine tenderness. No step-offs. Cardiovascular: RRR. Pulses present in all 4 extremities. Pulmonary/Chest: BS equal bilaterally. No tenderness or ecchymosis. Abdomen: NO tenderness or ecchymosis. Musculoskeletal: Pelvis: No instability. Back: No midline tenderness. No step-offs or deformities. Extremities: No gross deformities. No TTP. Skin: No laceration. Scattered abrasions and chronic appearing ecchymoses. Neuro: No focal neurological deficits. GCS as above. Psych: Normal mood and affect. MEDICAL DECISION MAKING: Vitals: The patient is hypertensive but otherwise afebrile and HDS. An order for continuous cardiorespiratory monitoring was placed. I reviewed the patient's monitor and shows a rate of 60-70s with regular rhythm. Differential diagnoses include but not limited to multi-system trauma, ICH, skull fracture, spine / spinal cord injury, fracture, dislocation, traumatic abdominal injuries, solid / visceral organ injuries, MSK sprain / strain, contusion, whiplash, concussion In summary, this is a 44yoM who presented as a injury alert. They were brought to the emergency/resuscitation room by EMS. Patient was brought into the emergency/resuscitation room by EMS. Full ATLS protocol was initiated under direction of the ED team. The history was concerning for multi-system trauma. The patient has significant comorbidities including chronic anticoagulation. Patient's presentation today is undifferentiated. It could be related to possible simple migraine. Could be related to his ESRD and electrolyte derangements as well as fluid overload. Could be related to trauma. Could also be related to stroke. Unclear if he has a peripheral or central etiology of his vertiginous symptoms. Airway intact and self maintained, breath sounds bilateral and equal along with normal effort, circulation intact with pp in 4 extremities, GCS 15 with normal speech and sensorium and ANGLIN. Full physical examination as above. History and secondary survey as above. Labs drawn and significant for minimal electrolyte derangements in the setting of ESRD. Kidney function is actually stable. Patient does have a mild anemia that is stable as compared to prior. CXR obtained on arrival.E fast was deferred for whole-body CT scan as the patient is hemodynamically stable. Patient's C-spine was cleared by Nexus criteria on arrival to the emergency department. Pt was not given tetanus. Initial/stabilizing treatments include Tylenol and Compazine for his headache, which could be related to a migraine or traumatic injuries. Imaging performed and reviewed as above. Patient was taken to the CT suite for WBCT. Chest x-ray independently interpreted by me reveal a central in place. There is bilateral interstitial edema. This is seen similar to prior as compared bilaterally. whole-body CT scan was independently interpreted by me as negative for traumatic injuries. There is a possible right cerebellar infarct. Patient could have a cerebellar stroke that is explaining his symptoms. Given this, we will obtain an MRI and plan to admit the patient. Concern for vertigo but could be central etiology. Plan for admission and MRI. Recommended to admit at 1331. Accepted for admission at [address] Cartwright. Consults/Care Managements Discussions: Per MDM ER treatment provided: See above Procedures:none Critical Care: None The chart was completed utilizing Ark Speech voice recognition software. Grammatical errors, random word insertions, pronoun errors, and incomplete sentences are an occasional consequence of this system due to software limitations, ambient noise, and hardware issues. Any formal questions or concerns about the content, text, or information contained within the body of this dictation should be directly addressed to the physician for clarification. Past Med/Surg History Problem List (Updated 11/30/24 @ 15:47 by Star Mendez DO) Fall (Acute) Anemia in chronic kidney disease (Acute) Chronic hyponatremia (Acute) Headache (Acute) Vertigo (Acute) ESRD (end stage renal disease) on dialysis (Acute) Cerebellar infarct (Acute) Diabetic peripheral neuropathy Hypertension Anemia Cerebellar infarct Primary hypothyroidism Type 1 diabetes Vertigo Acute hyperkalemia (Acute) Diarrhea (Acute) Generalized weakness (Acute) Fluid overload (Acute) Venous aneurysm Exocrine pancreatic insufficiency (Chronic) Suspected sleep apnea (Chronic) Paroxysmal atrial fibrillation (Chronic) (HFpEF) heart failure with preserved ejection fraction (Chronic) ESRD (end stage renal disease) on dialysis (Chronic) Dyslipidemia (Chronic) Diabetic nephropathy associated with type 1 diabetes mellitus (Chronic) Anxiety and depression (Chronic) Diabetic proliferative retinopathy (Chronic) GERD (gastroesophageal reflux disease) (Chronic) Obesity (Chronic) 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) Medical History H/O dialysis fistulogram multiple (HFpEF) heart failure with preserved ejection fraction hx, f/u PCP currently History of hypothyroidism Hx of gastroesophageal reflux (GERD) Dyslipidemia Diabetic peripheral neuropathy associated with type 1 diabetes mellitus Diabetes mellitus type 1 IDDM Anxiety and depression History of atrial fibrillation currently on eliquis; no cardiology currently, plans to see in near futured, managed by PCP Essential hypertension Chronic venous insufficiency hx venous stasis ulcers "currently healed, has followed up with wound care in the past" Anemia due to chronic kidney disease ESRD (end stage renal disease) requiring hemodialysis. MWF at [facility]; f/u dr. 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) hx Surgical History S/P dialysis catheter insertion 2019; later removed Hx of right cataract extraction History of esophagogastroduodenoscopy (EGD) H/O detached retina repair S/P arteriovenous (AV) fistula creation (2019) left side Family History Mother Diabetes Coronary heart disease Hypertension Father Coronary heart disease Hypertension Brother Coronary heart disease Kidney disease Uncle Colorectal cancer Grandmother Diabetes Aunt Diabetes Unknown Dyslipidemia Grandfather (Maternal) Diabetes Other Cancer No family history of adverse response to anesthesia Social History Smoking Status: Never smoker Second Hand Exposure: No; Do You Dip or Chew Tobacco: No; Hx Alcohol Use: No Hx Substance Use: No Preferred Language: Bruneian Communication Ability: Effective Visual Impairment: No Limitations Hearing Ability: Normal 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" How many Children do You have: 0 Feels Safe at Home: Yes Diet: ideal protein and regular Dental Care, Regularly: No Physical Activity Frequency: Does not Exercise Seatbelt Use: always Sunscreen Use: No Assistive Devices: Cane Allergies Allergies Allergy/AdvReac Type Severity Reaction Status Date / Time lisinopril AdvReac Intermediate COUGH Verified 11/26/24 14:48 Home Meds Home Medications Medication Instructions Recorded Confirmed acetone (urine) test (Ketostix 01/29/23 08/27/24 strips) insulin detemir U-100 100 unit/mL 30 unit subcut HS 03/20/23 11/26/24 (3 mL) subcutaneous pen atorvastatin 80 mg tablet (Lipitor) 80 mg PO HS 08/06/24 11/26/24 cinacalcet 60 mg tablet 60 mg PO HS 08/06/24 11/26/24 levothyroxine 75 mcg tablet 75 mcg PO QAM 08/06/24 11/26/24 ammonium lactate 5 % lotion 1 applic topical UD 10/09/24 11/26/24 (Lac-Hydrin Five) patiromer calcium sorbitex 16.8 16.8 g PO DIRECTED 11/26/24 11/26/24 gram oral powder packet (Veltassa) psyllium husk 0.4 gram capsule 0.4 g PO DIRECTED 11/26/24 11/26/24 (Metamucil) Previous Rx's Medication Instructions Recorded OneTouch Delica Lancets 33 gauge #400 ea 10/16/19 (lancets) lancets 33 gauge (OneTouch Delica #400 ea 01/28/23 Plus Lancet) blood-glucose,loan associate,cont #1 ea 03/20/23 (Dexcom G7 Assistant Professor Of Religion) blood-glucose meter (OneTouch #1 ea 05/21/23 Verio Flex Meter) pen needle, diabetic 29 gauge x #400 ea 07/12/23 1/2" (Comfort EZ Pen Crawford) blood-glucose sensor (Dexcom G7 #3 ea 08/27/23 Sensor device) duloxetine 30 mg capsule,delayed 30 mg PO QAM #90 caps 03/13/24 release apixaban 5 mg tablet (Eliquis) 5 mg PO BID 30 days #180 tabs 03/27/24 metoprolol succinate 100 mg 100 mg PO BID #180 tabs 05/12/24 tablet,extended release 24 hr Wheeled Walker #1 ea 07/03/24 walker (Ultra-Light Rollator misc) #1 ea 09/15/24 [id number] See Rx Instructions .Route 09/16/24 36,000-114,000-180,000 unit .COMPLEX #240 caps capsule,delay rel (Creon) ropinirole 0.5 mg tablet 0.5 mg PO BID #60 tabs 09/29/24 vitamin B complex and vitamin C 1 cap PO QAM #30 caps 10/11/24 no.20-folic acid 1 mg capsule (Renal Caps) blood sugar diagnostic (OneTouch #400 ea 10/12/24 Verio test strips) tramadol 50 mg tablet 50 mg PO Q6H #120 tabs 10/21/24 amlodipine 10 mg tablet 10 mg PO QAM #90 tabs 10/22/24 pregabalin 25 mg capsule 25 mg PO TID 90 days #270 caps 11/09/24 insulin aspart U-100 100 unit/mL 1 - 20 unit (0.01 - 0.2 mL) subcut 11/25/24 (3 mL) subcutaneous pen TID #15 mL aspirin 81 mg tablet,delayed 81 mg PO DAILY #0 tabs 11/28/24 release Results & Data (ED) Vital Signs Vital Signs - 24 hr 11/26/24 11:27 11/26/24 12:00 11/26/24 12:15 Temperature 36.8 C Temperature Source Oral Pulse Rate 74 74 74 Pulse Rate from SpO2 Sensor 74 Respiratory Rate 22 Blood Pressure 192/104 H 200/90 H Blood Pressure Mean 133 126 Pulse Oximetry 100 100 Oxygen Delivery Method Room Air Sepsis Recent Fever Within 48 Hours No Sepsis New/Unexplained Change in Mental Status N/A Sepsis Action Taken by Nursing No Action Required 11/26/24 12:30 11/26/24 13:00 11/26/24 13:42 Temperature Temperature Source Pulse Rate 77 73 75 Pulse Rate from SpO2 Sensor 77 73 75 Respiratory Rate 16 14 14 Blood Pressure 174/92 H 163/89 H 166/86 H Blood Pressure Mean 119 132 112 Pulse Oximetry 100 97 100 Oxygen Delivery Method Sepsis Recent Fever Within 48 Hours Sepsis New/Unexplained Change in Mental Status Sepsis Action Taken by Nursing 11/26/24 14:00 11/26/24 14:00 11/26/24 14:00 Temperature Temperature Source Pulse Rate 73 Pulse Rate from SpO2 Sensor 72 Respiratory Rate 13 Blood Pressure 171/87 H 171/87 H Blood Pressure Mean 122 122 Pulse Oximetry 99 Oxygen Delivery Method Sepsis Recent Fever Within 48 Hours Sepsis New/Unexplained Change in Mental Status Sepsis Action Taken by Nursing 11/26/24 14:15 Temperature Temperature Source Pulse Rate 71 Pulse Rate from SpO2 Sensor 71 Respiratory Rate 16 Blood Pressure Blood Pressure Mean Pulse Oximetry 94 Oxygen Delivery Method Sepsis Recent Fever Within 48 Hours Sepsis New/Unexplained Change in Mental Status Sepsis Action Taken by Nursing Laboratory Data 11/28/24 06:57 11/28/24 06:57 Lab Results 11/26/24 11/26/24 Range/Units 12:00 12:14 WBC 6.88 (4.8-10.8) K/ul RBC 3.39 L (4.70-6.10) M/uL Hgb 10.9 L (14.0-18.0) g/dl POC Hgb 10.5 L (14.0-18.0) g/dl Hct 31.7 L (42.0-52.0) % POC Hct 31 L (42-52) % MCV 93.5 (80.0-100.0) fL MCH 32.2 (25.0-34.0) pg MCHC 34.4 (32.0-36.0) g/dL RDW Std Deviation 48.0 H (36.4-46.3) fL RDW Coeff of Yuki 14.2 (11.5-14.5) % Plt Count 161 (130-400) K/uL MPV 9.8 (9.4-12.4) fL Immature Gran % (Auto) 0.3 % Neut % (Auto) 69.2 % Lymph % (Auto) 15.7 % [place] % (Auto) 10.6 % Eos % (Auto) 3.9 % Baso % (Auto) 0.3 % Neut # (Auto) 4.76 (1.40-6.50) K/uL Lymph # (Auto) 1.08 L (1.20-3.40) K/uL [place] # (Auto) 0.73 H (0.11-0.59) K/uL Eos # (Auto) 0.27 (0.00-0.50) K/uL Baso # (Auto) 0.02 (0.00-0.20) K/uL Immature Gran # (Auto) 0.02 (0.01-0.20) K/uL PT 11.0 (9.0-12.0) Seconds INR 1.0 (0.9-1.1) APTT 29 (21-31) Seconds PTT Ratio 1.1 VBG pH 7.45 H (7.36-7.41) VBG pCO2 56 H (38-50) mmHg VBG pO2 24 mmHg VBG HCO3 39 mmol/L VBG O2 Saturation < 60.0 % VBG Base Excess 12.5 mEq/L POC Sodium 131 L (135-144) mmol/L Sodium 133 L (136-145) mmol/L POC Potassium 4.2 (3.3-5.0) mmol/L Potassium 4.8 (3.5-5.1) mmol/L POC Chloride 88 L (101-112) mmol/L Chloride 87 L (98-107) mmol/L Carbon Dioxide 35 H (21-32) mmol/L POC Total CO2 31 (24-31) mmol/L Anion Gap 11 (3-11) POC Anion Gap 17.0 (16-25) mmol/L POC BUN 44 H (7-18) mg/dl BUN 46 H (6-23) mg/dl Creatinine 6.67 H* (0.6-1.4) mg/dl POC Creatinine 6.8 H* (0.6-1.3) mg/dl Est Cr Clr Drug Dosing 16.5 ml/min eGFR 9.82 BUN/Creatinine Ratio 6.9 L (10-20) Glucose 137 H (70-99(Fasting)) mg/dl POC Glucose (other) 139 H (70-99) mg/dl Calcium 9.6 (8.6-10.3) mg/dl POC Ioniz Calcium Deandra 1.09 L (1.12-1.32) mmol/l Phosphorus 4.7 (2.5-4.9) mg/dl Magnesium 2.2 (1.7-2.4) mg/dl Total Bilirubin 0.7 (0.2-1.0) mg/dl AST 16 (13-39) U/L ALT 19 (7-52) U/L Alkaline Phosphatase 194 H (34-104) U/L Total Protein 8.1 (6.0-8.3) gm/dl Albumin 4.0 (3.4-5.0) gm/dl Globulin 4.1 H (2.5-4.0) gm/dl Albumin/Globulin Ratio 1.0 (0.9-2) Lipase 32 (11-82) U/L Administered Medications Discontinued Medications Acetaminophen (Acetaminophen 500 Mg Tab) 1,000 mg PO NOW STA Stop: 11/26/24 13:34 Last Admin: 11/26/24 13:37 Dose: 1,000 mg Documented By: NGHIA Acetaminophen (Acetaminophen 325 Mg Tab) 650 mg PO Q4H PRN PRN Reason: Pain or Fever Stop: 12/27/24 20:14 Last Admin: 11/27/24 20:35 Dose: 650 mg Documented By: LOKI Amlodipine Besylate (Amlodipine Besylate 5 Mg Tab) 10 mg PO QAM [facility] Stop: 12/27/24 08:59 Last Admin: 11/28/24 09:03 Dose: 10 mg Documented By: Admin: 11/27/24 09:21 Dose: 10 mg Documented By: Lipase/Protease/Amylase (Pancreaze (Lipase 10,500u) Cap) 2 cap PO TIDM [facility] Stop: 12/26/24 19:59 Last Admin: 11/28/24 13:26 Dose: 2 cap Documented By: Admin: 11/28/24 09:02 Dose: 2 cap Documented By: Admin: 11/27/24 17:53 Dose: 2 cap Documented By: Admin: 11/27/24 14:16 Dose: 2 cap Documented By: Admin: 11/27/24 08:53 Dose: 2 cap Documented By: Admin: 11/26/24 21:38 Dose: 2 cap Documented By: JAMIE Lipase/Protease/Amylase (Pancreaze (Lipase 10,500u) Cap) 1 cap PO UD PRN PRN Reason: SNACKS Stop: 12/26/24 20:01 Last Admin: 11/27/24 19:24 Dose: 1 cap Documented By: LOKI Apixaban (Apixaban 5 Mg Tablet) 5 mg PO BID [facility] Stop: 12/26/24 20:59 Last Admin: 11/28/24 09:03 Dose: 5 mg Documented By: Admin: 11/27/24 20:39 Dose: 5 mg Documented By: Admin: 11/27/24 09:22 Dose: 5 mg Documented By: Admin: 11/26/24 20:36 Dose: 5 mg Documented By: JAMIE Aspirin (Aspirin 81 Mg Ectab) 81 mg PO DAILY [facility] Stop: 12/27/24 08:59 Last Admin: 11/28/24 09:03 Dose: 81 mg Documented By: Admin: 11/27/24 09:29 Dose: 81 mg Documented By: Atorvastatin Calcium (Atorvastatin 40 Mg Tab) 80 mg PO HS [facility] Stop: 12/26/24 20:59 Last Admin: 11/27/24 20:39 Dose: 80 mg Documented By: Admin: 11/26/24 20:37 Dose: 80 mg Documented By: JAMIE Cinacalcet (Cinacalcet Hcl 30 Mg Tab) 60 mg PO DAILY [facility] Stop: 12/27/24 08:59 Last Admin: 11/28/24 09:02 Dose: 60 mg Documented By: Admin: 11/27/24 09:20 Dose: 60 mg Documented By: Duloxetine HCl (Duloxetine Hcl 30 Mg Cap) 30 mg PO QAM [facility] Stop: 12/27/24 08:59 Last Admin: 11/28/24 09:04 Dose: 30 mg Documented By: Admin: 11/27/24 09:21 Dose: 30 mg Documented By: Prochlorperazine (Compazine) 1 mls @ 1 mls/min IV ONE ONE Stop: 11/26/24 13:30 Last Admin: 11/26/24 13:37 Dose: 1 mls/min Documented By: NGHIA Methylprednisolone 40 mg/ (Syringe) 0.64 mls @ 1.5 mls/min IV Q8H [facility] Stop: 12/26/24 19:59 Last Admin: 11/27/24 04:48 Dose: 1.5 mls/min Documented By: Admin: 11/26/24 20:33 Dose: 1.5 mls/min Documented By: JAMIE Insulin Aspart (Insulin Aspart Per Unit Charge) 0 units SC ACHS [facility] Stop: 12/26/24 19:59 Last Admin: 11/28/24 12:52 Dose: 5 units Documented By: AMAN Co-signed By: CINDY Admin: 11/28/24 09:14 Dose: 4 units Documented By: AMAN Co-signed By: ALEJANDRA Admin: 11/27/24 20:36 Dose: 4 units Documented By: LOKI Co-signed By: VOLODYMYR Admin: 11/27/24 17:56 Dose: 7 units Documented By: Co-signed By: JENNY Admin: 11/27/24 14:27 Dose: Not Given Documented By: Admin: 11/27/24 08:56 Dose: 12 units Documented By: Co-signed By: JENNY Admin: 11/26/24 22:46 Dose: 6 units Documented By: JAMIE Co-signed By: DANELLE Admin: 11/26/24 21:08 Dose: Not Given Documented By: JAMIE Insulin Human NPH (Insulin Human Nph) [facility] [place] Stop: 12/26/24 19:59 Last Admin: 11/26/24 20:31 Dose: 20 units Documented By: JAMIE Co-signed By: DANELLE Insulin Human NPH (Insulin Human Nph) 20 units SC BIDM [facility] Stop: 12/27/24 05:49 Last Admin: 11/27/24 06:07 Dose: 20 units Documented By: DANE Co-signed By: NORAH Insulin Human NPH (Insulin Human Nph) [facility] [place] Stop: 12/27/24 16:59 Last Admin: 11/28/24 09:05 Dose: 30 units Documented By: AMAN Co-signed By: ALEJANDRA Admin: 11/27/24 17:55 Dose: 30 units Documented By: Co-signed By: JENNY Insulin Human NPH (Insulin Human Nph) 10 units SC NOW STA Stop: 11/27/24 08:22 Last Admin: 11/27/24 09:00 Dose: 10 units Documented By: Co-signed By: YULIANA Ioversol (Optiray 320 125ml) 119 ml IV ONCE ONE Stop: 11/27/24 13:48 Last Admin: 11/27/24 13:48 Dose: 119 ml Documented By: YASSINE Levothyroxine Sodium (Levothyroxine Sodium 75 Mcg Tablet) [facility] Stop: 12/27/24 06:29 Last Admin: 11/28/24 05:59 Dose: 75 mcg Documented By: Admin: 11/27/24 06:18 Dose: 75 mcg Documented By: DANE Loperamide HCl (Loperamide Hcl 2 Mg Cap) 2 mg PO NOW ONE Stop: 11/28/24 02:50 Last Admin: 11/28/24 02:59 Dose: 2 mg Documented By: LOKI Meclizine HCl (Meclizine 12.5 Mg Tab) 12.5 mg PO TID [facility] Stop: 12/26/24 20:59 Last Admin: 11/28/24 14:18 Dose: 12.5 mg Documented By: Admin: 11/28/24 09:04 Dose: 12.5 mg Documented By: Admin: 11/27/24 20:39 Dose: 12.5 mg Documented By: Admin: 11/27/24 14:17 Dose: 12.5 mg Documented By: Admin: 11/27/24 09:22 Dose: 12.5 mg Documented By: Admin: 11/26/24 20:36 Dose: 12.5 mg Documented By: JAMIE Metoprolol Succinate (Metoprolol Succ 50mg Ext Rel Tab) 100 mg PO BID [facility] Stop: 12/26/24 20:59 Last Admin: 11/28/24 09:02 Dose: 100 mg Documented By: Admin: 11/27/24 20:37 Dose: 100 mg Documented By: Admin: 11/27/24 10:17 Dose: Not Given Documented By: Admin: 11/26/24 20:35 Dose: 100 mg Documented By: JAMIE Patiromer (Patiromer Calcium Sorbitex 8.4 Gm Pack) 16.8 gm PO SuTuThSa@0900 [facility] Stop: 12/28/24 08:59 Last Admin: 11/28/24 10:43 Dose: 16.8 gm Documented By: AMAN Perflutren Lipid Microsphere (Perflutren Lipid Microsphere (Definity)) 2 ml IV ONCE ONE Stop: 11/27/24 09:22 Last Admin: 11/27/24 09:21 Dose: 2 ml Documented By: Pregabalin (Pregabalin 25 Mg Cap) 25 mg PO TID [facility] Stop: 12/26/24 20:59 Last Admin: 11/28/24 14:18 Dose: 25 mg Documented By: Admin: 11/28/24 09:05 Dose: 25 mg Documented By: Admin: 11/27/24 20:39 Dose: 25 mg Documented By: Admin: 11/27/24 14:20 Dose: 25 mg Documented By: Admin: 11/27/24 09:28 Dose: 25 mg Documented By: Admin: 11/26/24 21:38 Dose: 25 mg Documented By: JAMIE Psyllium Hydrophilic Mucilloid (Psyllium Husk 4gm Packet) 4 gm PO BID [facility] Stop: 12/26/24 20:59 Last Admin: 11/28/24 09:07 Dose: Not Given Documented By: Admin: 11/27/24 20:38 Dose: Not Given Documented By: Admin: 11/27/24 09:31 Dose: Not Given Documented By: Admin: 11/26/24 21:38 Dose: Not Given Documented By: JAMIE Ropinirole HCl (Ropinirole Hcl 0.25 Mg Tablet) 0.5 mg PO BID [facility] Stop: 12/26/24 20:59 Last Admin: 11/28/24 09:03 Dose: 0.5 mg Documented By: Admin: 11/27/24 20:38 Dose: 0.5 mg Documented By: Admin: 11/27/24 09:22 Dose: 0.5 mg Documented By: Admin: 11/26/24 20:35 Dose: 0.5 mg Documented By: JAMIE Sevelamer Carbonate (Sevelamer Carbonate 800 Mg Tab) 2,400 mg PO TIDM [facility] Stop: 12/26/24 19:59 Last Admin: 11/28/24 12:53 Dose: 2,400 mg Documented By: Admin: 11/28/24 09:03 Dose: 2,400 mg Documented By: Admin: 11/27/24 17:54 Dose: 2,400 mg Documented By: Admin: 11/27/24 14:16 Dose: 2,400 mg Documented By: Admin: 11/27/24 09:23 Dose: 2,400 mg Documented By: Admin: 11/26/24 20:32 Dose: 2,400 mg Documented By: JAMIE Tramadol HCl (Tramadol Hcl 50 Mg Tablet) 50 mg PO Q6H PRN PRN Reason: Pain Stop: 12/26/24 19:42 Last Admin: 11/27/24 20:35 Dose: 50 mg Documented By: LOKI Vitamin B Complex/Folic Acid (Nephrocaps) 1 cap PO QAM [facility] Stop: 12/27/24 08:59 Last Admin: 11/28/24 09:05 Dose: 1 cap Documented By: Admin: 11/27/24 09:23 Dose: 1 cap Documented By: Imaging Data Radiologist's Impression: Chest X-Ray 11/26/24 11:48 XR chest 1V portable CLINICAL HISTORY: Trauma COMPARISON STUDY: 10/09/2024 FINDINGS: Stable dialysis catheter. Stable cardiomegaly with mild pulmonary vascular congestion. No consolidation or pleural effusion seen. No pneumothorax. IMPRESSION: Mild CHF. No other acute findings seen. ACT 112: Negative or not required by law. Electronically signed by: Zhang Farley M.D. 11/26/2024 12:07 PM Abdomen/Pelvis CT 11/26/24 11:49 CT OF THE ABDOMEN AND PELVIS WITHOUT CONTRAST CLINICAL HISTORY: Trauma. COMPARISON STUDY: CT of the abdomen and pelvis September 03, 2024. TECHNIQUE: Axial images of the abdomen and pelvis were obtained without IV contrast. Images were reviewed in the axial, sagittal, and coronal planes. Automated exposure control was utilized for the study. A dose lowering technique was utilized adhering to the principles of ALARA. FINDINGS: Please note that the chest CT will be reported separately. Small calcified nodules within the lung bases are benign. There are calcified granulomas within the spleen. There is no hemoperitoneum or pneumoperitoneum. Splenomegaly is unchanged. Evaluation of the solid abdominal viscera is suboptimal on this unenhanced exam. However, there is no evidence for traumatic injury to the liver, spleen, adrenal glands, kidneys or pancreas. Bilateral renal cortical thinning is unchanged. There is no hydronephrosis. There is no biliary or pancreatic ductal dilatation. Prominent retroperitoneal and inguinal lymph nodes are unchanged from earlier exams. There is no evidence for a bowel obstruction. There is a moderate amount stool within the colon and rectum. No fluid collections are present. No acute fractures are identified within the lumbar spine, pelvis or hips. Moderate vascular calcification is incidentally noted. IMPRESSION: 1. No acute traumatic findings within the abdomen or pelvis on unenhanced exam. 2. Moderate amount of stool within the colon and rectum. 3. No change in prominent retroperitoneal and inguinal lymph nodes. ACT 112: Negative or not required by law. Electronically signed by: Fredy Peterson M.D. 11/26/2024 12:[address] 11/26/24 11:49 CT cervical spine wo con CT DOSE: 3729.35 mGy.cm CLINICAL HISTORY: 44 years-old Male with Trauma. Acute neck pain status post fall COMPARISON: Head CT of same day, CT cervical spine 09/03/2024 TECHNIQUE: Multiple axial CT images of the cervical spine were obtained without contrast. A dose lowering technique was utilized adhering to the principles of ALARA. FINDINGS: Moderate intervertebral disc space narrowing with small posterior disc osteophyte complex at C3-C4. No acute cervical spine fracture or subluxation identified. Left subclavian catheter. The cervical soft tissues appear unremarkable. Thyroid goiter. Subcentimeter left supraclavicular lymph nodes. Atherosclerosis is greater than expected for patient age. The visualized lung apices appear clear. IMPRESSION: No acute cervical spine fracture or subluxation. ACT 112: Negative or not required by law. The above report was generated using voice recognition software. It may contain grammatical, syntax or spelling errors. Electronically signed by: Alonso Marks M.D. 11/26/2024 12:[address] 11/26/24 11:49 CT chest diagnostic wo con CT DOSE: 3729 CLINICAL HISTORY: trauma. TECHNIQUE: Multiaxial CT images of the chest were performed without contrast. A dose lowering technique was utilized adhering to the principles of ALARA. COMPARISON STUDY: 09/03/2024 FINDINGS: There is no pulmonary contusion, pleural effusion, or pneumothorax. There are multiple stable calcified pulmonary granuloma and splenic calcifications consistent with prior granulomatous disease. Dialysis catheter tip is just above the cavoatrial junction. There are diffuse coronary artery calcifications. No pericardial effusion. No mediastinal hematoma. Stable minimal left axillary adenopathy. There are mitral valvular calcifications. No acute fracture seen of the visualized osseous structures. IMPRESSION: No acute injury seen at the chest. ACT 112: Negative or not required by law. Electronically signed by: Zhang Farley M.D. 11/26/2024 12:[address] 11/26/24 11:49 CT head/brain wo con CLINICAL HISTORY: Trauma. TECHNIQUE: Multiple axial CT images of the head were obtained without contrast. A dose lowering technique was utilized adhering to the principles of ALARA. COMPARISON: 10/09/2024 FINDINGS: There is motion artifact. There is interval patchy hypodensity at the right cerebellar hemisphere, possible subacute infarction. No intracranial hemorrhage seen. No mass effect, midline shift, or hydrocephalus. There is mild maxillary sinus mucosal thickening. No sinus fluid. No skull fracture seen. IMPRESSION: 1. Interval hypodensity at the right cerebellum likely represents subacute infarction. 2. No other acute findings seen. ACT 112: Positive. There are findings on this exam that require communication between the performing entity and the patient following Patient Test Result Information Act ([place] Act 112) guidelines. The above report was generated using voice recognition software. It may contain grammatical, syntax or spelling errors. Electronically signed by: Zhang Farley M.D. 11/26/2024 12:41 PM Brain MRI 11/26/24 13:29 Clinical History: Headache and dizziness Technique: Multiple T1 and T2-weighted magnetic resonance images were obtained of the brain without gadolinium contrast Comparison is made to the head CT dated 10/09/2024 Findings: There is an acute or subacute infarct of the right cerebellar hemisphere with restricted diffusion and increased T2 signal intensity. No definite focus of demyelination is seen. No definite mass lesion is seen on this noncontrast study. There is no intracranial hemorrhage or other fluid collection. No midline shift or other form of herniation is seen. There is no hydrocephalus. Normal flow-voids are seen within the arteries of the [id number]-[id number]. The orbits and paranasal sinuses appear normal. The mastoid air cells appear clear. Impression: Acute or subacute infarct of the right cerebellum ACT 112: Positive. There are findings on this exam that require communication between the performing entity and the patient following Patient Test Result Information Act ([place] ACT 112) guidelines. Electronically signed by Delmar Hubbard 11-26-2024 6:03 PM Discharge Plan Visit Data Chief Complaint: Headache ED Provider: Star Mendez Discharge Problem: Cerebellar infarct, ESRD (end stage renal disease) on dialysis, Vertigo, Headache, Chronic hyponatremia, Anemia in chronic kidney disease, Fall Patient Disposition: Admitted As Inpatient Condition: Serious Discharge Instructions Interventions: ED Discharge Assessment Last Done: 11/26/24 19:43
[2024-11-26 12:18] LABS: Base Excess VBG 12.5 mEq/L; HCO3 VBG 39 mmol/L; Oxygen Saturation VBG < 60.0 %; PCO2 VBG 56 mmHg (38-50); PO2 VBG 24 mmHg; pH VBG 7.45 (7.36-7.41)
[2024-11-26 12:22] LABS: Hematocrit (blood only) 31.7 % (42.0-52.0); Hemoglobin 10.9 g/dl (14.0-18.0); Immature Granulocytes # (auto) 0.02 K/uL (0.01-0.20); Immature Granulocytes % (auto) 0.3 %; Mean Corpuscular Hemoglobin 32.2 pg (25.0-34.0); Mean Corpuscular Volume 93.5 fL (80.0-100.0); Platelet Count 161 K/uL (130-400); RDW Standard Deviation 48.0 fL (36.4-46.3); Red Blood Count 3.39 M/uL (4.70-6.10); White Blood Count 6.88 K/ul (4.8-10.8)
--- NOTE | 2024-11-26 12:44 | CT Scan Report ---
CT head/brain wo con CLINICAL HISTORY: Trauma. TECHNIQUE: Multiple axial CT images of the head were obtained without contrast. A dose lowering tech nique was utilized adhering to the principles of ALARA. COMPARISON: 10/09/2024 FINDINGS: There is motion artifact. There is interval patchy hypodensity at the right cerebellar jluis sphere, possible subacute infarction. No intracranial hemorrhage seen. No mass effect, midline shift, or hydrocephalus. There is mild maxillary sinus mucosal thickening. No sinus fluid. No skull fractur e seen. IMPRESSION: 1. Interval hypodensity at the right cerebellum likely represents subacute infarction. 2. No other acute findings seen. ACT 112: Positive. There are findings on this exam that require communication between the performing entity and the patient following Patient Test Result Information Act [place] Act 112) guidelines. The above report was generated using voice recognition software. It may contain grammatical, syntax o r spelling errors. Electronically signed by: Zhang Farley M.D. 11/26/2024 12:41 PM
--- NOTE | 2024-11-26 12:45 | CT Scan Report ---
CT OF THE ABDOMEN AND PELVIS WITHOUT CONTRAST CLINICAL HISTORY: Trauma. COMPARISON STUDY: CT of the abdomen and pelvis September 03, 2024. TECHNIQUE: Axial images of the abdomen and pelvis were obtained without IV contrast. Images were revi ewed in the axial, sagittal, and coronal planes. Automated exposure control was utilized for the sheldon dy. A dose lowering technique was utilized adhering to the principles of ALARA. FINDINGS: Please note that the chest CT will be reported separately. Small calcified nodules within t he lung bases are benign. There are calcified granulomas within the spleen. There is no hemoperitoneu m or pneumoperitoneum. Splenomegaly is unchanged. Evaluation of the solid abdominal viscera is subopt imal on this unenhanced exam. However, there is no evidence for traumatic injury to the liver, spleen , adrenal glands, kidneys or pancreas. Bilateral renal cortical thinning is unchanged. There is no hy dronephrosis. There is no biliary or pancreatic ductal dilatation. Prominent retroperitoneal and ingu inal lymph nodes are unchanged from earlier exams. There is no evidence for a bowel obstruction. Ther e is a moderate amount stool within the colon and rectum. No fluid collections are present. No acute fractures are identified within the lumbar spine, pelvis or hips. Moderate vascular calcification is incidentally noted. IMPRESSION: 1. No acute traumatic findings within the abdomen or pelvis on unenhanced exam. 2. Moderate amount of stool within the colon and rectum. 3. No change in prominent retroperitoneal and inguinal lymph nodes. ACT 112: Negative or not required by law. Electronically signed by: Fredy Peterson M.D. 11/26/2024 12:43 PM
--- NOTE | 2024-11-26 12:47 | CT Scan Report ---
CT chest diagnostic wo con CT DOSE: 3729 CLINICAL HISTORY: trauma. TECHNIQUE: Multiaxial CT images of the chest were performed without contrast. A dose lowering techni que was utilized adhering to the principles of ALARA. COMPARISON STUDY: 09/03/2024 FINDINGS: There is no pulmonary contusion, pleural effusion, or pneumothorax. There are multiple stab le calcified pulmonary granuloma and splenic calcifications consistent with prior granulomatous disea se. Dialysis catheter tip is just above the cavoatrial junction. There are diffuse coronary artery ca lcifications. No pericardial effusion. No mediastinal hematoma. Stable minimal left axillary adenopat hy. There are mitral valvular calcifications. No acute fracture seen of the visualized osseous struct ures. IMPRESSION: No acute injury seen at the chest. ACT 112: Negative or not required by law. Electronically signed by: Zhang Farley M.D. 11/26/2024 12:45 PM
[2024-11-26 12:56] LABS: Alanine Aminotransferase 19.0 U/L (7-52); Albumin Globulin Ratio 1.0 (0.9-2); Alkaline Phosphatase 194.0 U/L (34-104); Anion Gap 11.0 (3-11); Bilirubin,Total 0.7 mg/dl (0.2-1.0); Blood Urea Nitrogen 46.0 mg/dl (6-23); Calcium 9.6 mg/dl (8.6-10.3); Carbon Dioxide 35.0 mmol/L (21-32); Chloride 87.0 mmol/L (98-107); Creatinine Clr Calc Pharmacy 16.5 ml/min; Globulin 4.1 gm/dl (2.5-4.0); Glucose 137.0 mg/dl (70-99(Fasting)); Lipase 32.0 U/L (11-82); Magnesium 2.2 mg/dl (1.7-2.4); Potassium 4.8 mmol/L (3.5-5.1); Sodium 133.0 mmol/L (136-145); Total Protein 8.1 gm/dl (6.0-8.3)
--- NOTE | 2024-11-26 12:58 | CT Scan Report ---
CT cervical spine wo con CT DOSE: 3729.35 mGy.cm CLINICAL HISTORY: 44 years-old Male with Trauma. Acute neck pain status post fall COMPARISON: Head CT of same day, CT cervical spine 09/03/2024 TECHNIQUE: Multiple axial CT images of the cervical spine were obtained without contrast. A dose low ering technique was utilized adhering to the principles of ALARA. FINDINGS: Moderate intervertebral disc space narrowing with small posterior disc osteophyte complex a t C3-C4. No acute cervical spine fracture or subluxation identified. Left subclavian catheter. The cervical soft tissues appear unremarkable. Thyroid goiter. Subcentimeter left supraclavicular lym ph nodes. Atherosclerosis is greater than expected for patient age. The visualized lung apices appear clear. IMPRESSION: No acute cervical spine fracture or subluxation. ACT 112: Negative or not required by law. The above report was generated using voice recognition software. It may contain grammatical, syntax o r spelling errors. Electronically signed by: Alonso Marks M.D. 11/26/2024 12:57 PM
[2024-11-26 13:17] LABS: INR 1.0 (0.9-1.1); Partial Thromboplastin Time 29 Seconds (21-31); Prothrombin Time 11.0 Seconds (9.0-12.0)
[2024-11-26] MEDS: ACETAMINOPHEN 500 MG TAB PO STA (13:37)
[2024-11-26] MEDS: PROCHLORPERAZINE 1 ML IV ONE (13:37)
--- NOTE | 2024-11-26 14:44 | History & Physical Report ---
Date of Service November 26, 2024 Assessment & Plan (1) Vertigo: Plan: Possible subacute right cerebellar CVA seen on head CT scan. Brain MRI scan is pending. Scheduled meclizine and Solu-Medrol at this time. Will await brain MRI results before proceeding with other testing and neurological consultation (2) ESRD (end stage renal disease) on dialysis: Plan: Daily lab. Nephrology consultation requested (3) Type 1 diabetes: Plan: Basal insulin therapy. Sliding scale coverage. Diabetic diet (4) Primary hypothyroidism: Plan: Continue current thyroid replacement therapy. (5) Exocrine pancreatic insufficiency: Plan: Creon with meals Plan To be determined by brain MRI results History of Present Illness Chief Complaint: Vertigo, nausea Primary Care Provider: Maki Peterson MD 44-year-old white male with end-stage renal disease on hemodialysis. He also has insulin-dependent diabetes. For the past several days he has had persistent vertigo with nausea. He denies vomiting. He did fall and strike his head but there was no apparent injury. He came to the ED for evaluation. Unfortunately, the head CT scan reveals a possible right cerebellar subacute CVA. No evidence of subdural hemorrhage or intracerebral hemorrhage. Brain MRI scan is pending. He does not have any overt nystagmus at this time. He is admitted for further evaluation and treatment. Allergies Allergy/AdvReac Type Severity Reaction Status Date / Time lisinopril AdvReac Intermediate COUGH Verified 10/21/24 10:37 Home Medications Medication Instructions Recorded Confirmed Type OneTouch Delica Lancets 33 gauge #400 ea 10/16/19 08/27/24 Rx (lancets) lancets 33 gauge (OneTouch Delica #400 ea 01/28/23 08/27/24 Rx Plus Lancet) acetone (urine) test (Ketostix 01/29/23 08/27/24 History strips) blood-glucose,naval engineer,cont #1 ea 03/20/23 08/27/24 Rx (Dexcom G7 Nutrition Counselor) insulin detemir U-100 100 unit/mL 10 unit subcut UD 03/20/23 10/21/24 History (3 mL) subcutaneous pen blood-glucose meter (OneTouch #1 ea 05/21/23 08/27/24 Rx Verio Flex Meter) pen needle, diabetic 29 gauge x #400 ea 07/12/23 08/27/24 Rx 1/2" (Comfort EZ Pen Falcon) blood-glucose sensor (Dexcom G7 #3 ea 08/27/23 08/27/24 Rx Sensor device) duloxetine 30 mg capsule,delayed 30 mg PO QAM #90 caps 03/13/24 10/21/24 Rx release apixaban 5 mg tablet (Eliquis) 5 mg PO BID 30 days #180 tabs 03/27/24 10/09/24 Rx metoprolol succinate 100 mg 100 mg PO BID #180 tabs 05/12/24 10/21/24 Rx tablet,extended release 24 hr Wheeled Walker #1 ea 07/03/24 08/27/24 Rx atorvastatin 80 mg tablet (Lipitor) 80 mg PO HS 08/06/24 10/21/24 History cinacalcet 60 mg tablet 60 mg PO HS 08/06/24 10/21/24 History levothyroxine 75 mcg tablet 75 mcg PO QAM 08/06/24 10/21/24 History sevelamer carbonate 800 mg tablet 800 mg PO UD 09/03/24 10/21/24 History walker (Ultra-Light Rollator misc) #1 ea 09/15/24 Rx [id number] See Rx Instructions .Route 09/16/24 10/21/24 Rx 36,000-114,000-180,000 unit .COMPLEX #240 caps capsule,delay rel (Creon) ropinirole 0.5 mg tablet 0.5 mg PO BID #60 tabs 09/29/24 10/21/24 Rx ammonium lactate 5 % lotion 1 applic topical UD 10/09/24 10/21/24 History (Lac-Hydrin Five) Psyllium Husk [Metamucil] 4 g PO BID ##0 10/11/24 10/21/24 Rx vitamin B complex and vitamin C 1 cap PO QAM #30 caps 10/11/24 10/21/24 Rx no.20-folic acid 1 mg capsule (Renal Caps) blood sugar diagnostic (OneTouch #400 ea 10/12/24 Rx Verio test strips) tramadol 50 mg tablet 50 mg PO Q6H #120 tabs 10/21/24 10/21/24 Rx amlodipine 10 mg tablet 10 mg PO QAM #90 tabs 10/22/24 Rx pregabalin 25 mg capsule 25 mg PO TID 90 days #270 caps 11/09/24 Rx patiromer calcium sorbitex 16.8 16.8 g PO Q OTHER DAY #30 ea 11/18/24 Rx gram oral powder packet (Veltassa) insulin aspart U-100 100 unit/mL 1 - 20 unit (0.01 - 0.2 mL) subcut 11/25/24 Rx (3 mL) subcutaneous pen TID #15 mL Past Med/Surg History Problem List (Updated 11/26/24 @ 14:43 by Neymar Cartwright MD) Primary hypothyroidism Type 1 diabetes Vertigo Acute hyperkalemia (Acute) Diarrhea (Acute) Generalized weakness (Acute) Fluid overload (Acute) Venous aneurysm Exocrine pancreatic insufficiency (Chronic) Suspected sleep apnea (Chronic) Paroxysmal atrial fibrillation (Chronic) (HFpEF) heart failure with preserved ejection fraction (Chronic) ESRD (end stage renal disease) on dialysis (Chronic) Dyslipidemia (Chronic) Diabetic nephropathy associated with type 1 diabetes mellitus (Chronic) Anxiety and depression (Chronic) Diabetic proliferative retinopathy (Chronic) GERD (gastroesophageal reflux disease) (Chronic) Obesity (Chronic) 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) Medical History H/O dialysis fistulogram multiple (HFpEF) heart failure with preserved ejection fraction hx, f/u PCP currently History of hypothyroidism Hx of gastroesophageal reflux (GERD) Dyslipidemia Diabetic peripheral neuropathy associated with type 1 diabetes mellitus Diabetes mellitus type 1 IDDM Anxiety and depression History of atrial fibrillation currently on eliquis; no cardiology currently, plans to see in near futured, managed by PCP Essential hypertension Chronic venous insufficiency hx venous stasis ulcers "currently healed, has followed up with wound care in the past" Anemia due to chronic kidney disease ESRD (end stage renal disease) requiring hemodialysis. MWF at [facility]; f/u dr. 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) hx Surgical History S/P dialysis catheter insertion 2019; later removed Hx of right cataract extraction History of esophagogastroduodenoscopy (EGD) H/O detached retina repair S/P arteriovenous (AV) fistula creation (2019) left side Family History Mother Diabetes Coronary heart disease Hypertension Father Coronary heart disease Hypertension Brother Coronary heart disease Kidney disease Uncle Colorectal cancer Grandmother Diabetes Aunt Diabetes Unknown Dyslipidemia Grandfather (Maternal) Diabetes Other Cancer No family history of adverse response to anesthesia Social History Smoking Status: Former smoker Second Hand Exposure: No; Do You Dip or Chew Tobacco: No; Hx Alcohol Use: No Hx Substance Use: No Preferred Language: Serbian Communication Ability: Effective Visual Impairment: No Limitations Hearing Ability: Normal 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" How many Children do You have: 0 Feels Safe at Home: Yes Diet: ideal protein and regular Dental Care, Regularly: No Physical Activity Frequency: Does not Exercise Seatbelt Use: always Sunscreen Use: No Assistive Devices: Cane Review of Systems 2 Review of Systems: Constitutionalno fever or chills ENTno blurred vision, no double vision, no epistaxis, no sore throat Respiratoryno cough, no wheezing, no shortness of breath Cardiacno palpitations, no chest pain, no syncope Jacob nausea, vomiting, diarrhea, melena, hematochezia GUno urinary retention, no urinary incontinence, no dysuria, no hematuria Musculoskeletalno joint pain, no muscle tenderness Skinno bruising, no rashes, no pruritus Neurono isolated weakness, no paresthesia. He does have vertigo with any movement. No nystagmus on examination Psychno depression, no anxiety Physical Exam 2 Physical Exam: General-alert and oriented x3, no fever, no chills HEENT-head atraumatic and normocephalic, pupils equal and reactive to light, extraocular muscles intact Neck-no lymphadenopathy or thyromegaly, trachea midline Chest-clear to auscultation. No rales, wheezing or rhonchi Cardiac-regular rate and rhythm, normal S1 and S2 Abdomen-normal bowel sounds, no hepatosplenomegaly Extremities-no cyanosis, clubbing, or edema Neuro-cranial nerves II through XII intact, motor and sensory function within normal limits, strength symmetrical, no focal deficits Psych-normal affect, normal mood Results & Data Results & Data Vital Signs (Past 12 Hours) Vital Signs Temp Pulse Resp BP Pulse Ox O2 Del Method 11/26/24 14:15 71 16 94 11/26/24 14:00 171/87 H 11/26/24 14:00 171/87 H 11/26/24 14:00 73 13 99 11/26/24 13:42 75 14 166/86 H 100 11/26/24 13:00 73 14 163/89 H 97 11/26/24 12:30 77 16 174/92 H 100 11/26/24 12:15 74 200/90 H 100 11/26/24 12:00 74 11/26/24 11:27 36.8 C 74 22 192/104 H 100 Room Air Laboratory Results 11/26/24 12:00 11/26/24 12:00 Code Status & VTE Plan Code Status Full code PG Care Time/CCT Total # of Minutes Spent Total Time Spent with Patient: Total time spent is greater than 50% in coordination of care (as documented) at patient's floor/unit and/or counseling patient: Coding Level of Care Code 87078 INT INP/OBS CARE 3/75MIN Diagnoses Vertigo R42 ESRD (end stage renal disease) on dialysis N18.6; Z99.2 Type 1 diabetes E10.9 Primary hypothyroidism E03.9 Exocrine pancreatic insufficiency K86.81
--- NOTE | 2024-11-26 17:03 | Nephrology Consultation ---
Date of Consultation November 26, 2024 Assessment & Plan (1) ESRD (end stage renal disease) on dialysis: (2) Cerebellar infarct: (3) Diabetic nephropathy associated with type 1 diabetes mellitus: (4) Generalized weakness: (5) Anemia: (6) Hypertension: Plan End-stage renal disease on hemodialysis, admitted to the hospital with right cerebellar subacute infarct after presented with gait instability for last few days. Labs on admission otherwise unremarkable, hemoglobin stable, electrolyte acceptable. Blood pressure slightly elevated. Had dialysis yesterday. Volume status acceptable. Waiting for MRI. --Plan for hemodialysis tomorrow as regular schedule --fluid restriction to less than 1 L per day, low-potassium diet, left arm nephrology precaution. --Dose medications for eGFR less than 10, recommend decreasing gabapentin to maximum 300 mg daily. --start on Sensipar 60 mg daily, renal caps daily, Renvela 1 tab 3 times daily with meals Thank you for allowing me to participate in your patient's care. History of Present Illness Reason for Consultation: ESRD, on HD, admitted with gait instability/ subacute cerebellar infarct. Attending Physician: Neymar Cartwright MD History of Present Illness Ventura Snell is a 43-year-old male with past medical history significant for end-stage kidney disease on hemodialysis, hypertension, diabetes, GERD, admitted to the hospital with right cerebellar subacute infarct after presented with gait instability for last few days. Nephrology consult was requested to manage hemodialysis while inpatient. Electronic medical records were reviewed in detail during patient's visit. Juan Jose presented to ER this morning with gait instability slowly progressing over the last few days. He does not remember exact timeline but symptom has been more noticeable and progressive since last Saturday. He has been noticing weakness in his right upper and lower extremity but speech has been normal. Did not have any fever, chills or shortness of breath. On admission vital sign was stable. CBC showed no leukocytosis, hemoglobin stable. Electrolytes are acceptable, potassium was normal although sodium has been slightly low 130-132. CT chest abdomen pelvis was unremarkable but CT head showed possible subacute right cerebellar infarct. Waiting on MRI for further evaluation. He had dialysis yesterday as his regular schedule, had full treatment. His dry weight has been 105 Kg as of recent. Juan Jose has end-stage renal disease secondary to diabetic nephropathy, has been on hemodialysis Saturday, Saturday, Saturday at [facility] under care of Dr. Liriano. Has left radiocephalic AV fistula and has left IJ tunneled dialysis catheter, both has been in use recently as fistula has been having some difficulty with cannulation. His estimated dry weight is 105 kg as he has been eating healthy and trying to lose weight to be eligible for kidney transplant. He generally has tendency for high weight gain in between dialysis. He does not make much urine anymore, has been taking Bumex 4 mg twice a day. Has been having left lower extremity ulcer, supposed to be following with wound care center. He looks comfortable on exam, sitting in a chair. No shortness of breath or chest pain. Has been having bilateral upper and lower extremity weakness. Allergies Allergy/AdvReac Type Severity Reaction Status Date / Time lisinopril AdvReac Intermediate COUGH Verified 11/26/24 14:48 Home Medications Medication Instructions Recorded Confirmed Type OneTouch Delica Lancets 33 gauge #400 ea 10/16/19 08/27/24 Rx (lancets) lancets 33 gauge (OneTouch Delica #400 ea 01/28/23 08/27/24 Rx Plus Lancet) acetone (urine) test (Ketostix 01/29/23 08/27/24 History strips) blood-glucose,business area manager,cont #1 ea 03/20/23 08/27/24 Rx (Dexcom G7 Director Of Quality Improvement) insulin detemir U-100 100 unit/mL 30 unit subcut HS 03/20/23 11/26/24 History (3 mL) subcutaneous pen blood-glucose meter (OneTouch #1 ea 05/21/23 08/27/24 Rx Verio Flex Meter) pen needle, diabetic 29 gauge x #400 ea 07/12/23 08/27/24 Rx 1/2" (Comfort EZ Pen [place]) blood-glucose sensor (Dexcom G7 #3 ea 08/27/23 08/27/24 Rx Sensor device) duloxetine 30 mg capsule,delayed 30 mg PO QAM #90 caps 03/13/24 11/26/24 Rx release apixaban 5 mg tablet (Eliquis) 5 mg PO BID 30 days #180 tabs 03/27/24 11/26/24 Rx metoprolol succinate 100 mg 100 mg PO BID #180 tabs 05/12/24 11/26/24 Rx tablet,extended release 24 hr Wheeled Walker #1 ea 07/03/24 08/27/24 Rx atorvastatin 80 mg tablet (Lipitor) 80 mg PO HS 08/06/24 11/26/24 History cinacalcet 60 mg tablet 60 mg PO HS 08/06/24 11/26/24 History levothyroxine 75 mcg tablet 75 mcg PO QAM 08/06/24 11/26/24 History walker (Ultra-Light Rollator misc) #1 ea 09/15/24 Rx [id number] See Rx Instructions .Route 09/16/24 11/26/24 Rx 36,000-114,000-180,000 unit .COMPLEX #240 caps capsule,delay rel (Creon) ropinirole 0.5 mg tablet 0.5 mg PO BID #60 tabs 09/29/24 11/26/24 Rx ammonium lactate 5 % lotion 1 applic topical UD 10/09/24 11/26/24 History (Lac-Hydrin Five) vitamin B complex and vitamin C 1 cap PO QAM #30 caps 10/11/24 11/26/24 Rx no.20-folic acid 1 mg capsule (Renal Caps) blood sugar diagnostic (OneTouch #400 ea 10/12/24 Rx Verio test strips) tramadol 50 mg tablet 50 mg PO Q6H #120 tabs 10/21/24 11/26/24 Rx amlodipine 10 mg tablet 10 mg PO QAM #90 tabs 10/22/24 11/26/24 Rx pregabalin 25 mg capsule 25 mg PO TID 90 days #270 caps 11/09/24 11/26/24 Rx insulin aspart U-100 100 unit/mL 1 - 20 unit (0.01 - 0.2 mL) subcut 11/25/24 11/26/24 Rx (3 mL) subcutaneous pen TID #15 mL patiromer calcium sorbitex 16.8 16.8 g PO DIRECTED 11/26/24 11/26/24 History gram oral powder packet (Veltassa) psyllium husk 0.4 gram capsule 0.4 g PO DIRECTED 11/26/24 11/26/24 History (Metamucil) Patient History Medical History H/O dialysis fistulogram multiple (HFpEF) heart failure with preserved ejection fraction hx, f/u PCP currently History of hypothyroidism Hx of gastroesophageal reflux (GERD) Dyslipidemia Diabetic peripheral neuropathy associated with type 1 diabetes mellitus Diabetes mellitus type 1 IDDM Anxiety and depression History of atrial fibrillation currently on eliquis; no cardiology currently, plans to see in near futured, managed by PCP Essential hypertension Chronic venous insufficiency hx venous stasis ulcers "currently healed, has followed up with wound care in the past" Anemia due to chronic kidney disease ESRD (end stage renal disease) requiring hemodialysis. MWF at [facility]; f/u dr. 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) hx Surgical History S/P dialysis catheter insertion 2019; later removed Hx of right cataract extraction History of esophagogastroduodenoscopy (EGD) H/O detached retina repair S/P arteriovenous (AV) fistula creation (2019) left side Family History Mother Diabetes Coronary heart disease Hypertension Father Coronary heart disease Hypertension Brother Coronary heart disease Kidney disease Uncle Colorectal cancer Grandmother Diabetes Aunt Diabetes Unknown Dyslipidemia Grandfather (Maternal) Diabetes Other Cancer No family history of adverse response to anesthesia Social History Smoking Status: Former smoker Second Hand Exposure: No; Do You Dip or Chew Tobacco: No; Hx Alcohol Use: No Hx Substance Use: No Preferred Language: Slovak Communication Ability: Effective Visual Impairment: No Limitations Hearing Ability: Normal [employer] Software Developer Required: No Beliefs That Will Affect Care: None marital status: Single Current Living Situation: Alone Current Living Situation Comment: brother lives in apt below pt. 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" How many Children do You have: 0 Feels Safe at Home: Yes Diet: ideal protein and regular Dental Care, Regularly: No Physical Activity Frequency: Does not Exercise Seatbelt Use: always Sunscreen Use: No Assistive Devices: Cane Review of Systems Review of Systems: All systems reviewed & are unremarkable except as noted in HPI & below Physical Exam Constitutional: WD/WN, vitals as above + ill appearing; no acute distress Eyes: + anicteric sclerae Respiratory: no respiratory distress Auscultation: lungs clear to auscultation bilaterally Cardiovascular: Rate/Rhythm: regular rate and regular rhythm Heart Sounds: normal S1 and normal S2 Gastrointestinal (Abdomen): Inspection/Auscultation: abdomen normal to inspection Musculoskeletal: Extremities: + abnormal strength (Decreased muscle strength in rt upper and lower extremity) Skin: + lesion, + ulcer, + crusts and + dry sk in Neurologic: + focal motor deficit (rt Upper and lowe r extremity weakness with decreased muscle strength) Psychiatric: Orientation: alert and oriented x 3 Affect: euthymic affect Results & Data Vital Signs (Past 12 Hours) Vital Signs Temp Pulse Resp BP Pulse Ox O2 Del Method 11/26/24 16:36 65 16 159/118 H 98 11/26/24 16:21 65 14 11/26/24 16:06 67 13 11/26/24 16:00 159/118 H 11/26/24 16:00 159/118 H 11/26/24 16:00 159/118 H 11/26/24 15:57 67 10 L 11/26/24 15:51 68 12 11/26/24 15:30 161/85 H 11/26/24 15:18 70 17 100 11/26/24 15:03 70 20 99 11/26/24 15:00 151/81 H 11/26/24 15:00 151/81 H 11/26/24 15:00 151/81 H 11/26/24 15:00 151/81 H 11/26/24 15:00 151/81 H 11/26/24 14:42 71 14 100 11/26/24 14:30 71 10 L 100 11/26/24 14:30 154/78 H 11/26/24 14:30 154/78 H 11/26/24 14:30 154/78 H 11/26/24 14:15 71 16 94 11/26/24 14:00 171/87 H 11/26/24 14:00 171/87 H 11/26/24 14:00 73 13 99 11/26/24 13:42 75 14 166/86 H 100 11/26/24 13:00 73 14 163/89 H 97 11/26/24 12:30 77 16 174/92 H 100 11/26/24 12:15 74 200/90 H 100 11/26/24 12:00 74 11/26/24 11:27 36.8 C 74 22 192/104 H 100 Room Air PG Care Time/CCT Total # of Minutes Spent Total Time Spent with Patient: Total time spent is greater than 50% in coordination of care (as documented) at patient's floor/unit and/or counseling patient: Coding Level of Care Code 14094 INT INP/OBS CARE 3/75MIN Diagnoses ESRD (end stage renal disease) on dialysis N18.6; Z99.2 Cerebellar infarct I63.9 Diabetic nephropathy associated with type 1 diabetes mellitus E10.21 Generalized weakness R53.1 Anemia N18.6; D63.1; Z99.2 Anemia type: due to chronic kidney disease Chronic kidney disease stage: on chronic dialysis Hypertension I10 Hypertension type: unspecified (5) Anemia Anemia type: due to chronic kidney disease Chronic kidney disease stage: on chronic dialysis Qualified Code(s): N18.6 - End stage renal disease; D63.1 - Anemia in chronic kidney disease; Z99.2 - Dependence on renal dialysis (6) Hypertension Hypertension type: unspecified Qualified Code(s): I10 - Essential (primary) hypertension
--- NOTE | 2024-11-26 18:04 | Magnetic Resonance Report ---
Clinical History: Headache and dizziness Technique: Multiple T1 and T2-weighted magnetic resonance images were obtained of the brain without gadolinium contrast Comparison is made to the head CT dated 10/09/2024 Findings: There is an acute or subacute infarct of the right cerebellar hemisphere with restricted diffusion and increased T2 signal intensity. No definite focus of demyelination is seen. No definite mass lesion is seen on this noncontrast study. There is no intracranial hemorrhage or other fluid collection. No midline shift or other form of herniation is seen. There is no hydrocephalus. Normal flow-voids are seen within the arteries of the [id number]. The orbits and paranasal sinuses appear normal. The mastoid air cells appear clear. Impression: Acute or subacute infarct of the right cerebellum ACT 112: Positive. There are findings on this exam that require communication between the performing entity and the patient following Patient Test Result Information Act ([place] ACT 112) guidelines. Electronically signed by Delmar Hubbard 11-26-2024 6:03 PM
[2024-11-26] MEDS ORDERED: ONDANSETRON INJ 2 MG/ML 2 ML VIAL IV PRN (19:43)
[2024-11-26] MEDS ORDERED: CARBOHYDRATES FOR HYPOGLYCEMIA PO PRN (19:43)
[2024-11-26] MEDS ORDERED: GLUCOSE 40% GEL 15 GM TUBE PO PRN (19:43)
[2024-11-26] MEDS ORDERED: DEXTROSE 50% 50 ML SYRINGE IV PRN (19:43)
[2024-11-26] MEDS ORDERED: GLUCOSE 10 TAB/TUBE PO PRN (19:43)
[2024-11-26] MEDS ORDERED: methylPREDNISolone 10 mg/mL (For Ped Dose < 7mg) IV SCH (19:43)
[2024-11-26] MEDS ORDERED: GLUCAGON FOR INJ 1 MG VIAL SQ PRN (19:43)
[2024-11-26] MEDS ORDERED: SEVELAMER CARBONATE 800 MG TAB PO PRN (19:58)
[2024-11-26] MEDS ORDERED: CINACALCET HCL 30 MG TAB PO SCH (20:00)
[2024-11-26] MEDS: INSULIN HUMAN NPH SC SCH (20:31)
[2024-11-26] MEDS: SEVELAMER CARBONATE 800 MG TAB PO SCH (20:32)
[2024-11-26] MEDS: METOPROLOL SUCC 50MG EXT REL TAB PO SCH (20:35)
[2024-11-26] MEDS: APIXABAN 5 MG TABLET PO SCH (20:36)
[2024-11-26] MEDS: MECLIZINE 12.5 MG TAB PO SCH (20:36)
[2024-11-26] MEDS: ATORVASTATIN 40 MG TAB PO SCH (20:37)
[2024-11-26] MEDS: INSULIN ASPART PER UNIT CHARGE SC SCH (21:08)
[2024-11-26] MEDS: PANCREAZE (LIPASE 10,500U) CAP PO SCH (21:38)
[2024-11-26] MEDS: PSYLLIUM HUSK 4GM PACKET PO SCH (21:38)
[2024-11-26] MEDS: PREGABALIN 25 MG CAP PO SCH (21:38)
[2024-11-27 04:41] LABS: Hematocrit (blood only) 32.7 % (42.0-52.0); Hemoglobin 11.5 g/dl (14.0-18.0); Immature Granulocytes # (auto) 0.02 K/uL (0.01-0.20); Immature Granulocytes % (auto) 0.3 %; Mean Corpuscular Hemoglobin 32.7 pg (25.0-34.0); Mean Corpuscular Volume 92.9 fL (80.0-100.0); Platelet Count 176 K/uL (130-400); RDW Standard Deviation 47.7 fL (36.4-46.3); Red Blood Count 3.52 M/uL (4.70-6.10); White Blood Count 6.75 K/ul (4.8-10.8)
[2024-11-27 05:23] LABS: Anion Gap 11.0 (3-11); Blood Urea Nitrogen 60.0 mg/dl (6-23); Calcium 9.5 mg/dl (8.6-10.3); Carbon Dioxide 32.0 mmol/L (21-32); Chloride 86.0 mmol/L (98-107); Creatinine Clr Calc Pharmacy 13.8 ml/min; Glucose 310.0 mg/dl (70-99(Fasting)); Potassium 5.0 mmol/L (3.5-5.1); Sodium 129.0 mmol/L (136-145)
[2024-11-27] MEDS: INSULIN HUMAN NPH SC SCH ×2 (06:07→17:55)
[2024-11-27] MEDS: LEVOTHYROXINE SODIUM 75 MCG TABLET PO SCH (06:18)
[2024-11-27] MEDS ORDERED: SEVELAMER CARBONATE 800 MG TAB PO SCH (08:00)
[2024-11-27] MEDS: INSULIN HUMAN NPH SC STA (09:00)
[2024-11-27] MEDS ORDERED: LEVOTHYROXINE SODIUM 75 MCG TABLET PO SCH (09:00)
[2024-11-27] MEDS: CINACALCET HCL 30 MG TAB PO SCH (09:20)
[2024-11-27] MEDS: PERFLUTREN LIPID MICROSPHERE (DEFINITY) IV ONE (09:21)
[2024-11-27] MEDS: NEPHROCAPS PO SCH (09:23)
[2024-11-27] MEDS: ASPIRIN 81 MG ECTAB PO SCH (09:29)
--- NOTE | 2024-11-27 10:14 | Nephrology Progress Note ---
Date of Service November 27, 2024 Assessment & Plan (1) ESRD on dialysis: Plan: * Dialyzes at [facility] MWF (4.25 hr, 2K 2.5Ca HCO3 38 Na 138, Elisio 17H dialyzer, Heparin load 3000/hourly 1100, EDW 102.5 kg 15g 1" needles) * Orders for HD today entered into the EHR and reviewed with family nurse * TDC will be used for treatment (2) Anemia: Plan: * Chronic, stable. No additional ANTHONY therapy required with treatment today. Admission and Anticipated Discharge Date Admission Date: November 26, 2024 Subjective No acute events overnight. Juan oJse was out of bed walking in his hospital room this AM. He reports continued weakness. Recent history notable for episodes of severe vertigo and nausea. Thankfully, symptoms are reasonable currently. He also reports some left sided weakness. Diagnosis of CVA is understandably causing some anxiety. No fluid retention or edema. He would prefer to use TDC for HD today due to difficulty with needle placement in AVF recently. Review of Systems Review of Systems: All systems reviewed & are unremarkable except as noted in HPI & below Physical Exam Constitutional: no acute distress Eyes: PERRL, conjunctivae normal, anicteric sclerae ENMT: external ear and nose normal, oropharynx normal Neck: trachea midline, no thyromegaly (L IJ TCC w/ clean dressing) Respiratory: Auscultation: lungs clear to auscultation bilaterally Cardiovascular: Rate/Rhythm: regular rate and regular rhythm Extremities: + AV fistula (+ thrill but limited area for cannulation and venous limb is deep) Gastrointestinal (Abdomen): normal bowel sounds, soft, nontender, no hepatosplenomegaly Neurologic: Speech / Cognition: normal speech and normal cognition Psychiatric: Affect: euthymic affect Results & Data Vital Signs (Past 12 Hours) Vital Signs Temp Pulse Pulse Resp BP Pulse Ox O2 Del Method 11/27/24 08:07 36.7 C 73 18 167/88 H 97 Room Air 11/27/24 03:53 37 C 73 18 166/86 H 99 Room Air 11/26/24 23:37 79 11/26/24 23:30 37 C 77 12 178/84 H 97 Room Air Laboratory Results Laboratory Results - last 24 hr 11/26/24 11/26/24 11/26/24 12:00 12:14 19:42 WBC 6.88 RBC 3.39 L Hgb 10.9 L POC Hgb 10.5 L Hct 31.7 L POC Hct 31 L MCV 93.5 MCH 32.2 MCHC 34.4 RDW Std Deviation 48.0 H RDW Coeff of Yuki 14.2 Plt Count 161 MPV 9.8 Immature Gran % (Auto) 0.3 Neut % (Auto) 69.2 Lymph % (Auto) 15.7 Stanly % (Auto) 10.6 Eos % (Auto) 3.9 Baso % (Auto) 0.3 Neut # (Auto) 4.76 Lymph # (Auto) 1.08 L Stanly # (Auto) 0.73 H Eos # (Auto) 0.27 Baso # (Auto) 0.02 Immature Gran # (Auto) 0.02 PT 11.0 INR 1.0 APTT 29 PTT Ratio 1.1 VBG pH 7.45 H VBG pCO2 56 H VBG pO2 24 VBG HCO3 39 VBG O2 Saturation < 60.0 VBG Base Excess 12.5 POC Sodium 131 L Sodium 133 L POC Potassium 4.2 Potassium 4.8 POC Chloride 88 L Chloride 87 L Carbon Dioxide 35 H POC Total CO2 31 Anion Gap 11 POC Anion Gap 17.0 POC BUN 44 H BUN 46 H Creatinine 6.67 H* POC Creatinine 6.8 H* Est Cr Clr Drug Dosing 16.5 eGFR 9.82 BUN/Creatinine Ratio 6.9 L Glucose 137 H POC Glucose POC Glucose (other) 139 H Calcium 9.6 POC Ioniz Calcium Deandra 1.09 L Phosphorus 4.7 Magnesium 2.2 Total Bilirubin 0.7 AST 16 ALT 19 Alkaline Phosphatase 194 H Total Protein 8.1 Albumin 4.0 Globulin 4.1 H Albumin/Globulin Ratio 1.0 Lipase 32 Nasal Screen MRSA (PCR) Negative 11/26/24 11/26/24 11/27/24 20:30 22:39 03:32 WBC 6.75 RBC 3.52 L Hgb 11.5 L POC Hgb Hct 32.7 L POC Hct MCV 92.9 MCH 32.7 MCHC 35.2 RDW Std Deviation 47.7 H RDW Coeff of Yuki 14.0 Plt Count 176 MPV 10.5 Immature Gran % (Auto) 0.3 Neut % (Auto) 89.9 Lymph % (Auto) 7.1 Stanly % (Auto) 2.5 Eos % (Auto) 0.1 Baso % (Auto) 0.1 Neut # (Auto) 6.06 Lymph # (Auto) 0.48 L Stanly # (Auto) 0.17 Eos # (Auto) 0.01 Baso # (Auto) 0.01 Immature Gran # (Auto) 0.02 PT INR APTT PTT Ratio VBG pH VBG pCO2 VBG pO2 VBG HCO3 VBG O2 Saturation VBG Base Excess POC Sodium Sodium 129 L POC Potassium Potassium 5.0 POC Chloride Chloride 86 L Carbon Dioxide 32 POC Total CO2 Anion Gap 11 POC Anion Gap POC BUN BUN 60 H Creatinine 7.89 H* D POC Creatinine Est Cr Clr Drug Dosing 13.8 eGFR 8.03 BUN/Creatinine Ratio 7.6 L Glucose 310 H* POC Glucose 167 H 294 H POC Glucose (other) Calcium 9.5 POC Ioniz Calcium Deandra Phosphorus Magnesium Total Bilirubin AST ALT Alkaline Phosphatase Total Protein Albumin Globulin Albumin/Globulin Ratio Lipase Nasal Screen MRSA (PCR) PG Care Time/CCT Total # of Minutes Spent Total Time Spent with Patient: Total time spent is greater than 50% in coordination of care (as documented) at patient's floor/unit and/or counseling patient: Coding Level of Care Code 85760 SUB INP/OBS CARE 3/50MIN Diagnoses ESRD on dialysis N18.6; Z99.2 Anemia N18.6; D63.1; Z99.2 Anemia type: due to chronic kidney disease Chronic kidney disease stage: on chronic dialysis (2) Anemia Anemia type: due to chronic kidney disease Chronic kidney disease stage: on chronic dialysis Qualified Code(s): N18.6 - End stage renal disease; D63.1 - Anemia in chronic kidney disease; Z99.2 - Dependence on renal dialysis
--- NOTE | 2024-11-27 11:37 | Hospitalist Progress Note ---
Date of Service November 27, 2024 Assessment & Plan (1) Vertigo: Plan: Subacute right cerebellar CVA seen on head CT scan and brain MRI. Neurology consultation requested and pending. Head and neck CTA ordered and pending. Cardiac echo ordered and pending. Low-dose aspirin added to current medication regimen. Solu-Medrol has been discontinued. (2) ESRD (end stage renal disease) on dialysis: Plan: Daily lab. Nephrology consultation appreciated. Continue regular HD schedule (3) Type 1 diabetes: Plan: NPH insulin uptitrated today, November 27. Parenteral steroid therapy has been discontinued. Expect glucose levels to improve now. Continue sliding scale coverage. Diabetic diet (4) Primary hypothyroidism: Plan: Continue current thyroid replacement therapy. (5) Exocrine pancreatic insufficiency: Plan: Creon with meals Plan hopeful discharge to home within the next day or 2 Admission and Anticipated Discharge Date Admission Date: November 26, 2024 Subjective The patient was seen while on dialysis. Clinically he is improved but still has some vertigo and nausea with rapid head movement. Unfortunately, the brain MRI scan confirms ischemic CVA in the right cerebellum. Neurology consultation has been requested along with head and neck CTA and cardiac echo. Solu-Medrol has been discontinued. NPH insulin has been uptitrated today, November 27. Speech and swallowing have not been affected at all by his acute CVA. Hopefully he can be discharged within the next day or 2 Review of Systems 2 Review of Systems: Constitutionalno fever or chills ENTno blurred vision, no double vision, no epistaxis, no sore throat Respiratoryno cough, no wheezing, no shortness of breath Cardiacno palpitations, no chest pain, no syncope Jacob nausea, vomiting, diarrhea, melena, hematochezia GUno urinary retention, no urinary incontinence, no dysuria, no hematuria Musculoskeletalno joint pain, no muscle tenderness Skinno bruising, no rashes, no pruritus Neurono isolated weakness, no paresthesia. He continues to have vertigo with rapid head movement. No nystagmus on examination Psychno depression, no anxiety Physical Exam 2 Physical Exam: General-alert and oriented x3, no fever, no chills HEENT-head atraumatic and normocephalic, pupils equal and reactive to light, extraocular muscles intact Neck-no lymphadenopathy or thyromegaly, trachea midline Chest-clear to auscultation. No rales, wheezing or rhonchi Cardiac-regular rate and rhythm, normal S1 and S2 Abdomen-normal bowel sounds, no hepatosplenomegaly Extremities-no cyanosis, clubbing, or edema Neuro-cranial nerves II through XII intact, motor and sensory function within normal limits, strength symmetrical, no focal deficits Psych-normal affect, normal mood Results & Data Results & Data Vital Signs (Past 12 Hours) Vital Signs Temp Pulse Pulse Resp BP BP Pulse Ox 11/27/24 11:22 73 11/27/24 11:00 75 135/79 11/27/24 10:30 75 142/86 H 11/27/24 10:00 73 141/81 H 11/27/24 09:51 76 152/88 H 11/27/24 09:41 36.7 C 75 11/27/24 08:07 36.7 C 73 18 167/88 H 97 11/27/24 03:53 37 C 73 18 166/86 H 99 11/26/24 23:37 79 O2 Del Method 11/27/24 11:22 11/27/24 11:00 11/27/24 10:30 11/27/24 10:00 11/27/24 09:51 11/27/24 09:41 11/27/24 08:07 Room Air 11/27/24 03:53 Room Air 11/26/24 23:37 Laboratory Results 11/27/24 03:32 11/27/24 03:32 PG Care Time/CCT Total # of Minutes Spent Total Time Spent with Patient: Total time spent is greater than 50% in coordination of care (as documented) at patient's floor/unit and/or counseling patient: Coding Level of Care Code 09699 SUB INP/OBS CARE 3/50MIN Diagnoses Vertigo R42 ESRD (end stage renal disease) on dialysis N18.6; Z99.2 Type 1 diabetes E10.9 Primary hypothyroidism E03.9 Exocrine pancreatic insufficiency K86.81
[2024-11-27] MEDS: OPTIRAY 320 125ml IV ONE (13:48)
--- NOTE | 2024-11-27 14:18 | CT Scan Report ---
CT ANGIOGRAPHY OF THE NECK WITH CONTRAST CLINICAL HISTORY: Cerebellar cerebrovascular accident. COMPARISON STUDY: No previous studies for comparison. Technique: CT angiography of the carotid and vertebral arteries was obtained using Optiray and 3D rec onstruction on an independent workstation. NASCET criteria was utilized. Automated exposure control was utilized for the study. A dose lowering technique was utilized adhering to the principles of ALA RA. CT DOSE: 527.84 mGy.cm Findings: Visualized lung apices are unremarkable. A left-sided dialysis catheter is in place. Promin ent bilateral cervical lymph nodes are likely benign. The bilateral common carotid and cervical inter nal carotid arteries are patent. There is mild plaque within the proximal left internal carotid arter y without stenosis. There is extensive calcified plaque within the smaller vessels of the neck. There is no aneurysm or dissection within the neck. The cervical portions of the vertebral arteries are pa tent. There is severe stenosis of the intracranial portion of the right vertebral artery. There is ab rupt occlusion of the proximal right posterior inferior cerebellar artery which results in the right cerebellar infarct shown on CT and MRI. There is severe narrowing of the left cavernous carotid which is diminutive. There is moderate narrowing of the right cavernous carotid. IMPRESSION: 1. No stenoses within the major vessels of the neck. 2. Abrupt occlusion of the right posterior inferior cerebellar artery with resultant acute infarct, a s shown on head CT and MRI. 3. Severe narrowing of the left cavernous carotid and intracranial portion of the right vertebral art sosa better depicted on the CTA of the head which will be reported separately. ACT 112: Negative or not required by law. Electronically signed by: Fredy Peterson M.D. 11/27/2024 2:16 PM
--- NOTE | 2024-11-27 14:30 | CT Scan Report ---
CT angio head w con CLINICAL HISTORY: 44 years-old Male with cerebellar CVA. Acute strokelike symptoms COMPARISON STUDY: Brain MR and head CT 11/26/2024 TECHNIQUE: Following the IV administration of 119 cc of Optiray, CT angiogram of the brain was perfor med from the skull base to the vertex. Images are reviewed in the axial, sagittal, and coronal planes . 3-D MIPS images are created and assessed. IV contrast was administered without complication. All me asurements were obtained according to NASCET criteria. A dose lowering technique was utilized adherin g to the principles of ALARA. FINDINGS: Large right cerebellar infarct redemonstrated. CT ANGIOGRAM OF THE BRAIN: Atherosclerosis of the distal internal carotid arteries causes moderate multifocal stenoses. The bila teral anterior and middle cerebral arteries are also patent. Calcified plaque of the V4 segments of t he vertebral arteries without significant stenosis on the left. There is short segment high-grade chloe nosis on the right, image 24 series 3 without occlusion. Patent basilar artery. The left like is wide ly patent. No definite flow identified within the right PICA just distal to its origin. Dural sinuses appear patent. IMPRESSION: 1. Probable thrombus/occlusion of the right PICA with large right cerebellar infarct redemonstrated. 2. High-grade stenosis of the V4 segment right vertebral artery. 3. Moderate stenoses of the distal internal carotid arteries. ACT 112: Negative or not required by law. The above report was generated using voice recognition software. It may contain grammatical, syntax o r spelling errors. Electronically signed by: Alonso Marks M.D. 11/27/2024 2:27 PM
--- NOTE | 2024-11-27 18:03 | Neurology Consultation ---
Date of Consultation November 27, 2024 Assessment & Plan (1) Cerebellar infarct: (2) Paroxysmal atrial fibrillation: (3) Diabetic peripheral neuropathy: Plan 44-year-old male with a history of insulin-dependent diabetes mellitus, diabetic peripheral neuropathy, atrial fibrillation, noncompliant with Eliquis, presenting with a subacute inferior right cerebellar infarct, symptoms began about 4 days ago, primarily dizziness, vertigo, worsening balance. His vertigo has resolved. CT angiography revealed an occlusion of the right posterior inferior cerebellar artery and a high-grade stenosis of the V4 segment of the right vertebral artery. I suspect this patient stroke was cardioembolic given his history of paroxysmal atrial fibrillation and noncompliance with Eliquis. Continue with Eliquis as ordered. I agree with the addition of aspirin 81 mg/day at this time. May continue with both of these medications. Additional counseling given to the patient regarding importance of continued compliance with his anticoagulant. Continue with atorvastatin as ordered, his LDL is appropriate, long-term LDL goal 70 or less. Continue with management of diabetes mellitus. His hemoglobin A1c from this past June was 9.1, a hemoglobin A1c from October 10 was 6.3 indicating improved control. It may be worthwhile to check an up-to-date hemoglobin A1c to reassess his more recent blood glucose control. Continue with blood pressure management per stroke protocol. Consultations with PT/OT Patient may continue with Dang and Kunal to address diabetic neuropathy associated pain. No further immediate recommendations. Please call with any questions. History of Present Illness Reason for Consultation: Cerebellar stroke Requesting Physician: Gabbie Attending Physician: Neymar Cartwright MD History of Present Illness The patient is a 44-year-old male who presented to the emergency department yesterday for further assessment of vertigo, poor balance, symptoms began 4 days ago, had fallen backwards at that time, no head injury. Past medical history notable for type 1 diabetes mellitus, end-stage renal disease on hemodialysis, hypertension, dyslipidemia, paroxysmal atrial fibrillation. Patient informs me that he has been noncompliant with Eliquis, taking this medication very inconsistently due to tendency for bleeding. A CT of the head revealed hypodensity within the right cerebellum potentially consistent with a subacute infarct. Follow-up brain MRI confirmed the presence of an acute to subacute right inferior right cerebellar infarct with a small area of infarct along the right posterior medulla as well. No hemorrhage. CTA of the head and neck revealed an occlusion of the right posterior inferior cerebellar artery, high- grade stenosis of the V4 segment of the right vertebral artery, and moderate stenoses of the distal internal carotid arteries. CTA of the neck revealed no occlusive disease in the cervical circulation. I independently reviewed these images and was able to appreciate these findings. An echocardiogram reveals normal left ventricular systolic function, mild concentric left LVH, no shunt with injection of contrast, normal left atrial size. An electrocardiogram revealed a normal sinus rhythm, incomplete left bundle branch block, 84 bpm. Currently, the patient denies headache, reports dizziness with head turning, no vertigo at this time. He is aware some slight difficulty with coordination for the right arm and leg. He also complains of chronic difficulty with balance due to diabetic peripheral neuropathy, severe sensory loss of the feet, has been ambulating with a cane for the past few years. Allergies Allergy/AdvReac Type Severity Reaction Status Date / Time lisinopril AdvReac Intermediate COUGH Verified 11/26/24 14:48 Home Medications Medication Instructions Recorded Confirmed Type OneTouch Delica Lancets 33 gauge #400 ea 10/16/19 08/27/24 Rx (lancets) lancets 33 gauge (OneTouch Delica #400 ea 01/28/23 08/27/24 Rx Plus Lancet) acetone (urine) test (Ketostix 01/29/23 08/27/24 History strips) blood-glucose,home health assistant,cont #1 ea 03/20/23 08/27/24 Rx (Dexcom G7 Specimen Technician) insulin detemir U-100 100 unit/mL 30 unit subcut HS 03/20/23 11/26/24 History (3 mL) subcutaneous pen blood-glucose meter (OneTouch #1 ea 05/21/23 08/27/24 Rx Verio Flex Meter) pen needle, diabetic 29 gauge x #400 ea 07/12/23 08/27/24 Rx 1/2" (Comfort EZ Pen [place]) blood-glucose sensor (Dexcom G7 #3 ea 08/27/23 08/27/24 Rx Sensor device) duloxetine 30 mg capsule,delayed 30 mg PO QAM #90 caps 03/13/24 11/26/24 Rx release apixaban 5 mg tablet (Eliquis) 5 mg PO BID 30 days #180 tabs 03/27/24 11/26/24 Rx metoprolol succinate 100 mg 100 mg PO BID #180 tabs 05/12/24 11/26/24 Rx tablet,extended release 24 hr Wheeled Walker #1 ea 07/03/24 08/27/24 Rx atorvastatin 80 mg tablet (Lipitor) 80 mg PO HS 08/06/24 11/26/24 History cinacalcet 60 mg tablet 60 mg PO HS 08/06/24 11/26/24 History levothyroxine 75 mcg tablet 75 mcg PO QAM 08/06/24 11/26/24 History walker (Ultra-Light Rollator misc) #1 ea 09/15/24 Rx [id number] See Rx Instructions .Route 09/16/24 11/26/24 Rx 36,000-114,000-180,000 unit .COMPLEX #240 caps capsule,delay rel (Creon) ropinirole 0.5 mg tablet 0.5 mg PO BID #60 tabs 09/29/24 11/26/24 Rx ammonium lactate 5 % lotion 1 applic topical UD 10/09/24 11/26/24 History (Lac-Hydrin Five) vitamin B complex and vitamin C 1 cap PO QAM #30 caps 10/11/24 11/26/24 Rx no.20-folic acid 1 mg capsule (Renal Caps) blood sugar diagnostic (OneTouch #400 ea 10/12/24 Rx Verio test strips) tramadol 50 mg tablet 50 mg PO Q6H #120 tabs 10/21/24 11/26/24 Rx amlodipine 10 mg tablet 10 mg PO QAM #90 tabs 10/22/24 11/26/24 Rx pregabalin 25 mg capsule 25 mg PO TID 90 days #270 caps 11/09/24 11/26/24 Rx insulin aspart U-100 100 unit/mL 1 - 20 unit (0.01 - 0.2 mL) subcut 11/25/24 11/26/24 Rx (3 mL) subcutaneous pen TID #15 mL patiromer calcium sorbitex 16.8 16.8 g PO DIRECTED 11/26/24 11/26/24 History gram oral powder packet (Veltassa) psyllium husk 0.4 gram capsule 0.4 g PO DIRECTED 11/26/24 11/26/24 History (Metamucil) Patient History Medical History H/O dialysis fistulogram multiple (HFpEF) heart failure with preserved ejection fraction hx, f/u PCP currently History of hypothyroidism Hx of gastroesophageal reflux (GERD) Dyslipidemia Diabetic peripheral neuropathy associated with type 1 diabetes mellitus Diabetes mellitus type 1 IDDM Anxiety and depression History of atrial fibrillation currently on eliquis; no cardiology currently, plans to see in near futured, managed by PCP Essential hypertension Chronic venous insufficiency hx venous stasis ulcers "currently healed, has followed up with wound care in the past" Anemia due to chronic kidney disease ESRD (end stage renal disease) requiring hemodialysis. MWF at [facility]; f/u dr. 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) hx Surgical History S/P dialysis catheter insertion 2019; later removed Hx of right cataract extraction History of esophagogastroduodenoscopy (EGD) H/O detached retina repair S/P arteriovenous (AV) fistula creation (2019) left side Family History Mother Diabetes Coronary heart disease Hypertension Father Coronary heart disease Hypertension Brother Coronary heart disease Kidney disease Uncle Colorectal cancer Grandmother Diabetes Aunt Diabetes Unknown Dyslipidemia Grandfather (Maternal) Diabetes Other Cancer No family history of adverse response to anesthesia Social History Smoking Status: Never smoker Second Hand Exposure: No; Do You Dip or Chew Tobacco: No; Hx Alcohol Use: No Hx Substance Use: No Preferred Language: Nepali Communication Ability: Effective Visual Impairment: No Limitations Hearing Ability: Normal Engineering Clerk Required: No Beliefs That Will Affect Care: None marital status: Single Current Living Situation: Alone Current Living Situation Comment: pt stated brother lives in the same building as him. 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" How many Children do You have: 0 Feels Safe at Home: Yes Diet: ideal protein and regular Dental Care, Regularly: No Physical Activity Frequency: Does not Exercise Seatbelt Use: always Sunscreen Use: No Assistive Devices: Cane Review of Systems Constitutional: no fever and no chills Eyes: + blind spots (History of surgery, right eye); no diplopia Ear, Nose, Mouth, Throat: no hearing loss Respiratory: no cough and no dyspnea Cardiovascular: no chest pain and no palpitations Gastrointestinal: no nausea and no vomiting Genitourinary: no dysuria Musculoskeletal: no myalgia Integumentary: no rash and no lesions Neurologic: as per Subjective / HPI, + gait abnormality, + unsteadiness, + localized weakness, + loss of sensation and + dizziness; no tremor(s), no abnormal movements, no headache(s), no abnormal speech and no memory loss Psychiatric: no depression and no anxiety Hematologic / Lymphatic: + easy bleeding Exam (Neuro) Constitutional: well developed and well nourished; no acute distress Eyes: PERRL and EOM intact bilaterally; + abnormal visual field confrontation (loss of peripheral vision for the right eye) and no nystagmus Neurologic: Oriented to:: Person, Place and Time Memory: Short Term Intact and Remote Intact Attention: Span Intact and Concentration Intact Speech Fluency: negative Dysarthria or Dysfluency Speech Aphasia: negative Aphasia Fund of Knowledge: Current Events, Past History and Vocabulary Cranial Nerves: Normal III, IV, , V, VII, VIII, IX, X, XI and XII; Abnorm II Motor Strength: Hemiparesis (Mild) Laterality: Right; negative Normal Lower Extremities or Normal Upper Extremities Motor Tone: Normal Lower Extremities and Normal Upper Extremities Muscle Bulk/Involuntary Movements: No Involuntary Movements; negative Muscle Atrophy Sensation: negative Light Touch Intact, Pain/Temperature Intact, Vibration Intact or Proprioception Intact Coordination: Limited Balance, Dysdiadochokinesia Laterality: Right, Finger- Nose Abnormal Laterality: Right and Heel-Sotomayor Abnormal Laterality: Right Deep Tendon Reflexes: Rt Triceps: 1+, Lt Triceps: 1+, Rt Biceps: 1+, Lt Biceps: 1+, Rt Brachioradialis: 1+, Lt Brachioradialis: 1+, Rt Patellar: 1+, Lt Patellar: 1+, Rt Ankle: 0 and Lt Ankle: 0 Gait: Ataxic, Wide-Based Results & Data Vital Signs (Past 12 Hours) Vital Signs Temp Pulse Pulse Resp BP BP Pulse Ox 11/27/24 16:11 36.5 C 75 19 163/87 H 97 11/27/24 13:30 36.7 C 72 144/77 H 11/27/24 13:00 72 132/77 11/27/24 12:30 71 126/75 11/27/24 12:00 72 119/69 11/27/24 11:30 76 123/83 11/27/24 11:22 73 11/27/24 11:00 75 135/79 11/27/24 10:30 75 142/86 H 11/27/24 10:00 73 141/81 H 11/27/24 09:51 76 152/88 H 11/27/24 09:41 36.7 C 75 11/27/24 08:07 36.7 C 73 18 167/88 H 97 O2 Del Method 11/27/24 16:11 Room Air 11/27/24 13:30 11/27/24 13:00 11/27/24 12:30 11/27/24 12:00 11/27/24 11:30 11/27/24 11:22 11/27/24 11:00 11/27/24 10:30 11/27/24 10:00 11/27/24 09:51 11/27/24 09:41 11/27/24 08:07 Room Air Laboratory Results WBC 6.75, hemoglobin 11.5, hematocrit 32.7, platelet count 176, sodium 129, potassium 5.0, BUN 60, creatinine 7.89, glucose 310, calcium 9.5, magnesium 2.2, AST 16, ALT 19, lipid panel from June 2024 reviewed, triglycerides 76, cholesterol 107, LDL 46, HDL 46 Coding Level of Care Code 95761 INT INP/OBS CARE 3/75MIN Diagnoses Cerebellar infarct I63.9 Paroxysmal atrial fibrillation I48.0 Diabetic peripheral neuropathy E11.42 Time Spent (min) 75 Comment Total time includes patient contact, chart review, counseling, note preparation
[2024-11-27] MEDS: PANCREAZE (LIPASE 10,500U) CAP PO PRN (19:24)
[2024-11-27] MEDS: ACETAMINOPHEN 325 MG TAB PO PRN (20:35)
[2024-11-28] MEDS: LOPERAMIDE HCL 2 MG CAP PO ONE (02:59)
[2024-11-28 07:31] LABS: Hematocrit (blood only) 30.8 % (42.0-52.0); Hemoglobin 10.1 g/dl (14.0-18.0); Immature Granulocytes # (auto) 0.06 K/uL (0.01-0.20); Immature Granulocytes % (auto) 0.6 %; Mean Corpuscular Hemoglobin 31.5 pg (25.0-34.0); Mean Corpuscular Volume 96.0 fL (80.0-100.0); Platelet Count 177 K/uL (130-400); RDW Standard Deviation 50.7 fL (36.4-46.3); Red Blood Count 3.21 M/uL (4.70-6.10); White Blood Count 9.47 K/ul (4.8-10.8)
[2024-11-28 08:02] LABS: Anion Gap 9.0 (3-11); Blood Urea Nitrogen 50.0 mg/dl (6-23); Calcium 9.2 mg/dl (8.6-10.3); Carbon Dioxide 32.0 mmol/L (21-32); Chloride 93.0 mmol/L (98-107); Cholesterol 78.0 mg/dl (0-200); Creatinine Clr Calc Pharmacy 17.1 ml/min; Glucose 99.0 mg/dl (70-99(Fasting)); HDL Cholesterol 33.0 mg/dl; Potassium 4.4 mmol/L (3.5-5.1); Sodium 134.0 mmol/L (136-145); Triglycerides 68.0 mg/dl (0-150)
--- NOTE | 2024-11-28 10:29 | Discharge Summary ---
Discharge Summary Date of Service November 28, 2024 Principal Dx & Hospital Course #1 = Principal Diagnosis (1) Vertigo: Subacute right cerebellar CVA seen on head CT scan and brain MRI. Neurology consultation requested and pending. Head and neck CTA completed and he has occluded right posterior inferior cerebellar artery. Likely cause of his acute right cerebellar ischemic CVA. Fortunately, his lipid profile looks good. He is now on aspirin therapy. Neurology consultation appreciated. He will be discharged home today, November 28, with addition of aspirin 81 mg daily in addition to his other medications. Cardiac echo negative for shunt. (2) ESRD (end stage renal disease) on dialysis: Daily lab. Nephrology consultation appreciated. Continue regular HD schedule (3) Type 1 diabetes: NPH insulin uptitrated on November 27 and glucose is better controlled. He will resume his usual diabetic management at discharge. Parenteral steroid therapy has been discontinued. Continue sliding scale coverage while hospitalized. Diabetic diet (4) Primary hypothyroidism: Continue current thyroid replacement therapy. (5) Exocrine pancreatic insufficiency: Creon with meals Plan Home today, November 28 Notes For Next Care Provider Aspirin 81 mg once daily has been added to his medication regimen. Vertigo is expected to eventually resolve Admission HPI Per Admitting Provider 44-year-old white male with end-stage renal disease on hemodialysis. He also has insulin-dependent diabetes. For the past several days he has had persistent vertigo with nausea. He denies vomiting. He did fall and strike his head but there was no apparent injury. He came to the ED for evaluation. Unfortunately, the head CT scan reveals a possible right cerebellar subacute CVA. No evidence of subdural hemorrhage or intracerebral hemorrhage. Brain MRI scan is pending. He does not have any overt nystagmus at this time. He is admitted for further evaluation and treatment. Discharge Exam General-alert and oriented x3, no fever, no chills HEENT-head atraumatic and normocephalic, pupils equal and reactive to light, extraocular muscles intact Neck-no lymphadenopathy or thyromegaly, trachea midline Chest-clear to auscultation. No rales, wheezing or rhonchi Cardiac-regular rate and rhythm, normal S1 and S2 Abdomen-normal bowel sounds, no hepatosplenomegaly Extremities-no cyanosis, clubbing, or edema Neuro-cranial nerves II through XII intact, motor and sensory function within normal limits, strength symmetrical, no focal deficits Psych-normal affect, normal mood Discharge Plan Discharge Items Patient Disposition: Home - Self-Care Reason For Visit: VERTIGO, POSSIBLE CVA Discharge Diagnosis: Subacute ischemic right cerebellar CVA Activity: Resume your previous activity Non-emergency contact: Primary Care Provider Call non-emergency contact if: you have any medication questions and your symptoms worsen Follow-up/Referrals: Maki Peterson MD [Primary Care Provider] - Diet: Carb Count or DM1 and Dialysis Renal Addtl Attending Provider Instructions: Take aspirin 81 mg daily in addition to all of your other medications. Resume usual diabetic management at discharge. See your primary care provider as soon as possible for follow-up Pending Studies at Discharge: No Stand-Alone Forms: My Lookout, Smoking Cessation Medications and DC Order Prescriptions: New aspirin 81 mg Tablet,Delayed Release (Dr/Ec) 81 mg PO DAILY Qty: 0 0RF Continued (DME) lancets [OneTouch Delica Plus Lancet] 33 gauge misc See Rx Instructions .Route Qty: 400 3RF Rx Instructions: test blood sugars 4 times daily (DME) pen needle, diabetic [Comfort EZ Pen [place]] 29 gauge x 1/2" needle See Rx Instructions .ROUTE .MEDSUPPLY Qty: 400 3RF Rx Instructions: use 4 x daily duloxetine 30 mg capsule,delayed release(DR/EC) 30 mg PO QAM Qty: 90 3RF Eliquis 5 mg tablet 5 mg PO BID 30 Days Qty: 180 3RF metoprolol succinate 100 mg tablet extended release 24 hr 100 mg PO BID Qty: 180 3RF (DME) Ultra-Light Rollator Misc See Rx Instructions .Route Qty: 1 0RF Rx Instructions: As directed Creon 36,000-114,000- 180,000 unit capsule,delayed release(DR/EC) See Rx Instructions .ROUTE .COMPLEX MDD 8 caps Qty: 240 11RF Dose Instruction: TAKE 2 CAPSULES BY MOUTH WITH MEALS AND 1 CAPSULE WITH SNACKS. TAKE WITH MEALS AND/OR SNACKS Rx Instructions: TAKE 2 CAPSULES BY MOUTH WITH MEALS AND 1 CAPSULE WITH SNACKS. ropinirole 0.5 mg tablet 0.5 mg PO BID Qty: 60 2RF (DME) OneTouch Verio test strips Strip See Rx Instructions .ROUTE .MEDSUPPLY Qty: 400 3RF Rx Instructions: Test 4 times daily amlodipine 10 mg tablet 10 mg PO QAM Qty: 90 2RF pregabalin 25 mg capsule 25 mg PO TID 90 Days Qty: 270 1RF insulin aspart U-100 100 unit/mL (3 mL) insulin pen 1 - 20 unit subcut TID Qty: 15 0RF Rx Instructions: Inject TID as per sliding scale up to 20 units TID (DME) Ketostix Strip See Rx Instructions .ROUTE .MEDSUPPLY Rx Instructions: As directed (DME) Dexcom G7 Sensor Device See Rx Instructions .Route Qty: 3 5RF Rx Instructions: As directed (DME) lancets [OneTouch Delica Lancets] 33 gauge misc See Rx Instructions .ROUTE .MEDSUPPLY Qty: 400 3RF Rx Instructions: test blood suigars 4 x daily (DME) Dexcom G7 Electrical Design Engineer Misc See Rx Instructions .Route Qty: 1 0RF Rx Instructions: As directed insulin detemir U-100 100 unit/mL (3 mL) insulin pen 30 unit SQ HS Patient Comments: sugars have been running low, has only been taking 40 units HS (DME) blood-glucose meter [OneTouch Verio Flex meter] Misc See Rx Instructions .ROUTE .MEDSUPPLY Qty: 1 0RF Rx Instructions: As directed tramadol 50 mg tablet 50 mg PO Q6H Qty: 120 0RF (DME) Wheeled Walker Misc See Rx Instructions .Route Qty: 1 0RF Rx Instructions: As directed psyllium husk [Metamucil] 0.4 gram Capsule 0.4 g PO DIRECTED Rx Instructions: Take 0.4g capsule by mouth twice daily on non dialysis days . Tues/Thurs/Sat/Sun Veltassa 16.8 gram powder in packet 16.8 g PO DIRECTED Rx Instructions: Take one packet on non dialysis days . Tues/Thurs/Sat/Sun atorvastatin [Lipitor] 80 mg tablet 80 mg PO HS levothyroxine 75 mcg tablet 75 mcg PO QAM cinacalcet 60 mg tablet 60 mg PO HS Lac-Hydrin Five 5 % lotion 1 applic topical UD Rx Instructions: original:1 applic topical daily. 10/09-no fill history unable to verify Renal Caps 1 mg Capsule 1 cap PO QAM Qty: 30 0RF Discharge Orders: Discharge Order (Routine); Ordered 11/28/24 Ordered By: Neymar Cartwright Admission Data Admit Date/Time: 11/26/24 14:29 Attending Provider: Neymar Cartwright Admit Provider: Neymar Cartwright Primary Care Provider: Maki Peterson Other Providers: Neymar Cartwright; Landry Miranda; Guy Fulton; Eran Gale; Esther Schwab; Leann Casarez; Pepe Hollis; Constance Isaacs Hospital Stay Data Consultations 11/26/24 14:02 ED Decision to Admit Stat 11/26/24 19:43 Consult Nephrology Routine 11/27/24 08:23 Consult Neurology Routine Diagnostic Imagining Performed 11/26/24 11:49 CT abd pelvis wo con Stat CT cervical spine wo con Stat CT chest diagnostic wo con Stat CT head/brain wo con Stat 11/26/24 13:29 MR brain wo con Stat 11/27/24 08:23 CTA head w con [CT angio head w con] Urgent CTA neck with con [CT angio neck with con] Urgent Pending Results Patient Have Any Pending Studies at Discharge: No Discharge Instructions Given to Patient (Per Discharging Provider) Take aspirin 81 mg daily in addition to all of your other medications. Resume usual diabetic management at discharge. See your primary care provider as soon as possible for follow-up Total Time Total Time Spent Total Time Spent (In Minutes): 15 minutes Coding Level of Care Code 37516 INP/OBS DISCH >30 MIN Diagnoses Vertigo R42 ESRD (end stage renal disease) on dialysis N18.6; Z99.2 Type 1 diabetes E10.9 Primary hypothyroidism E03.9 Exocrine pancreatic insufficiency K86.81
[2024-11-28] MEDS: PATIROMER CALCIUM SORBITEX 8.4 GM PACK PO SCH (10:43)
[2024-11-28 11:07] VITALS: BP 164/88; PULSE 67; RESP 20; TEMP 97.5; O2SAT 97
--- NOTE | 2024-11-28 11:26 | Nephrology Progress Note ---
Date of Service November 28, 2024 Assessment & Plan (1) ESRD on dialysis: Plan: Completed treatment with adequate UF and clearance. BP and volume status are acceptable. TDC used for treatment yesterday. Dialyzes at [facility] MWF (4.25 hr, 2K 2.5Ca HCO3 38 Na 138, Elisio 17H dialyzer, Heparin load 3000/hourly 1100, EDW 102.5 kg 15g 1" needles) Medications appropriate for kidney function. Follow up at [facility] on Saturday per regular schedule. No change to Rx. (2) Anemia: Plan: No additional ANTHONY therapy provided this admission. H/H stable. Admission and Anticipated Discharge Date Admission Date: November 26, 2024 Subjective No acute events overnight. Juan Jose reports that he is being discharged today. He completed HD without complications yeterday. Review of Systems Review of Systems: All systems reviewed & are unremarkable except as noted in HPI & below Physical Exam Constitutional: no acute distress Eyes: PERRL, conjunctivae normal, anicteric sclerae ENMT: external ear and nose normal, oropharynx normal Neck: trachea midline, no thyromegaly (L IJ TCC w/ clean dressing) Respiratory: Auscultation: lungs clear to auscultation bilaterally Cardiovascular: Rate/Rhythm: regular rate and regular rhythm Extremities: + AV fistula (+ thrill but limited area for cannulation and venous limb is deep) Neurologic: Speech / Cognition: normal speech and normal cognition Psychiatric: Affect: euthymic affect Results & Data Vital Signs (Past 12 Hours) Vital Signs Temp Pulse Pulse Resp BP Pulse Ox O2 Del Method 11/28/24 11:09 36.4 C L 67 20 164/88 H 97 11/28/24 11:06 36.4 C L 67 20 164/88 H 97 Room Air 11/28/24 10:26 Room Air 11/28/24 10:26 63 11/28/24 07:49 36.7 C 62 18 160/80 H 99 Room Air 11/28/24 03:40 36.6 C 69 18 132/79 98 Room Air 11/28/24 00:22 Room Air Laboratory Results Laboratory Results - last 24 hr 11/27/24 11/27/24 11/27/24 14:24 17:09 20:03 WBC RBC Hgb Hct MCV MCH MCHC RDW Std Deviation RDW Coeff of Yuki Plt Count MPV Immature Gran % (Auto) Neut % (Auto) Lymph % (Auto) [place] % (Auto) Eos % (Auto) Baso % (Auto) Neut # (Auto) Lymph # (Auto) [place] # (Auto) Eos # (Auto) Baso # (Auto) Immature Gran # (Auto) Sodium Potassium Chloride Carbon Dioxide Anion Gap BUN Creatinine Est Cr Clr Drug Dosing eGFR BUN/Creatinine Ratio Glucose POC Glucose 166 H 207 H 189 H Calcium Triglycerides Cholesterol LDL Cholesterol, Calc VLDL Cholesterol, Calc HDL Cholesterol Cholesterol/HDL Ratio 11/28/24 11/28/24 11/28/24 04:22 04:59 06:57 WBC 9.47 RBC 3.21 L Hgb 10.1 L Hct 30.8 L MCV 96.0 MCH 31.5 MCHC 32.8 RDW Std Deviation 50.7 H RDW Coeff of Yuki 14.6 H Plt Count 177 MPV 10.3 Immature Gran % (Auto) 0.6 Neut % (Auto) 62.6 Lymph % (Auto) 22.8 [place] % (Auto) 10.9 Eos % (Auto) 2.5 Baso % (Auto) 0.6 Neut # (Auto) 5.92 Lymph # (Auto) 2.16 [place] # (Auto) 1.03 H Eos # (Auto) 0.24 Baso # (Auto) 0.06 Immature Gran # (Auto) 0.06 Sodium 134 L Potassium 4.4 Chloride 93 L Carbon Dioxide 32 Anion Gap 9 BUN 50 H Creatinine 6.38 H* D Est Cr Clr Drug Dosing 17.1 eGFR 10.36 BUN/Creatinine Ratio 7.8 L Glucose 99 POC Glucose 64 L* 116 H Calcium 9.2 Triglycerides 68 Cholesterol 78 LDL Cholesterol, Calc 31 VLDL Cholesterol, Calc 14 HDL Cholesterol 33 Cholesterol/HDL Ratio 2.4 11/28/24 08:22 WBC RBC Hgb Hct MCV MCH MCHC RDW Std Deviation RDW Coeff of Yuki Plt Count MPV Immature Gran % (Auto) Neut % (Auto) Lymph % (Auto) [place] % (Auto) Eos % (Auto) Baso % (Auto) Neut # (Auto) Lymph # (Auto) [place] # (Auto) Eos # (Auto) Baso # (Auto) Immature Gran # (Auto) Sodium Potassium Chloride Carbon Dioxide Anion Gap BUN Creatinine Est Cr Clr Drug Dosing eGFR BUN/Creatinine Ratio Glucose POC Glucose 112 H Calcium Triglycerides Cholesterol LDL Cholesterol, Calc VLDL Cholesterol, Calc HDL Cholesterol Cholesterol/HDL Ratio PG Care Time/CCT Total # of Minutes Spent Total Time Spent with Patient: Total time spent is greater than 50% in coordination of care (as documented) at patient's floor/unit and/or counseling patient: Coding Level of Care Code 75262 SUB INP/OBS CARE 2/35MIN Diagnoses ESRD on dialysis N18.6; Z99.2 Anemia N18.6; D63.1; Z99.2 Anemia type: due to chronic kidney disease Chronic kidney disease stage: on chronic dialysis (2) Anemia Anemia type: due to chronic kidney disease Chronic kidney disease stage: on chronic dialysis Qualified Code(s): N18.6 - End stage renal disease; D63.1 - Anemia in chronic kidney disease; Z99.2 - Dependence on renal dialysis
== END 2024-11-28 16:01 | disposition home or self-care (01) | DRG 64 ==
LOC: SUATTDRO → ED 11:38 → EDINP 14:29 → 2N 19:43